=== PATIENT | female | born 1975 | race Caucasian/White ===

== ENCOUNTER 2019-02-27 14:43 | Inpatient (IN) ==
[2019-02-27] MEDS ORDERED: THIAMINE HCL 200 MG in SODIUM CHLORIDE 0.9% 50 ML IV STA (14:57)
[2019-02-27] MEDS ORDERED: DIAZEPAM 5 MG/ML INJ 10ML VIAL IV STA (14:57)
[2019-02-27] MEDS ORDERED: FOLIC ACID 1 MG in SYRINGE 9.8 ML IV STA (14:57)
[2019-02-27] MEDS ORDERED: ATIVAN IV ALCOHOL WITHDRAWL IV SCH ×3 (15:00→17:50)
[2019-02-27] MEDS ORDERED: SODIUM CHLORIDE 0.9% 1000ML 1,000 ML IV SCH (15:00)
[2019-02-27] MEDS ORDERED: LORazepam 1 MG/2 ML VIAL IV PRN ×2 (15:01→17:50)
[2019-02-27] MEDS ORDERED: LORazepam 2 MG/4 ML VIAL IV PRN ×2 (15:01→17:50)
[2019-02-27] MEDS ORDERED: LORazepam 3 MG/6 ML VIAL IV PRN ×2 (15:01→17:50)
[2019-02-27] MEDS ORDERED: LORAZEPAM 2MG IV ACTIVE PROTOCOL IV PRN (15:15)
[2019-02-27] MEDS ORDERED: LORAZEPAM 1MG IV ACTIVE PROTOCOL IV PRN (15:15)
[2019-02-27] MEDS ORDERED: LORAZEPAM 3MG IV ACTIVE PROTOCOL IV PRN (15:15)
[2019-02-27 15:32] LABS: Basophils # (auto) 0.04 K/uL (0-0.2); Basophils % (auto) 0.7 %; Eosinophils # (auto) 0.04 K/uL (0-0.5); Eosinophils % (auto) 0.7 %; Hemoglobin 14.2 g/dL (12.0-16.0); Immature Granulocytes # (auto) 0.01 K/uL (0.00-0.02); Immature Granulocytes % (auto) 0.2 %; Lymphocytes # (auto) 0.71 K/uL (1.2-3.4); Lymphocytes % (auto) 11.7 %; Mean Corpuscular Hgb Conc 35.5 g/dL (32-36); Mean Corpuscular Volume 98.3 fL (80-100); Mean Platelet Volume 8.9 fL (7.4-10.4); Monocytes # (auto) 0.36 K/uL (0.11-0.59); Monocytes % (auto) 5.9 %; Neutrophils # (auto) 4.91 K/uL (1.4-6.5); Neutrophils % (auto) 80.8 %; Platelet Count 202 K/uL (130-400); RDW Standard Deviation 46.9 fL (36.4-46.3); Red Blood Count 4.07 M/uL (4.2-5.4); White Blood Count 6.07 K/uL (4.8-10.8)
[2019-02-27] MEDS: D5W AND 1/2NSS 1,000 ML IV SCH (15:36)
[2019-02-27 15:59] LABS: Albumin Level 4.2 gm/dl (3.4-5.0); BUN Creatinine Ratio 17.5 (10-20); Calcium 9.9 mg/dl (8.5-10.1); Creatinine Clr Calc Pharmacy 96.3 ml/min; Est GFR (African American) 111.4; Est GFR (Non-African American) 96.1
[2019-02-27 16:10] LABS: Albumin Globulin Ratio 1.1 (0.9-2); Bilirubin,Total 0.7 mg/dl (0.2-1); Globulin 3.7 gm/dl (2.5-4.0); Phosphorus 2.4 mg/dl (2.5-4.9); Total Protein 7.9 gm/dl (6.4-8.2)
[2019-02-27] MEDS ORDERED: POT PHOSPHATE MONOBASIC W/ SOD TAB PO STA (16:18)
--- NOTE | 2019-02-27 16:26 | Emergency Department Note ---
Entered by Mil Ortiz acting as a scribe for Doron Pedersen MD History of Present Illness General Chief complaint: Alcohol Withdrawal Stated complaint: SICKNESS, WITHDRAWL SX Time Seen by Provider: 02/27/19 14:48 Source: patient History of Present Illness Onset (ago): week(s) 1 Location: left and right Pain Consistency: + other (episode) Maximum Pain Intensity: 2 Quality: + other (generally ill) Associated symptoms: + loss of appetite, + nausea/vomiting (dry heaving) and + other (+fatigued; +generally sore; +slight diarrhea; +feeling "shaky"; - seizures) The patient is a 43 year old white female w/ PMHx of alcohol abuse, asthma, and anxiety who presents to the ED w/ CC of an episode of feeling generally ill beginning over the past week. The patient also reports feeling fatigued and generally sore over the past week. The patient was referred to the ED from [facility]. The patient notes she has issues with drinking excessive alcohol. The patient reports she typically drinks a large bottle of wine each night for the past two and a half years. The patient admits her last drink was at 2300 last night. The patient states the excessive alcohol use started after experiencing her first panic attack 2 and half years ago. The patient also notes dry heaving this morning, slight diarrhea, loss of appetite, and feeling "shaky". The patient denies experiencing seizures. The patient notes her last menstrual period was in August. Home Medications Home Medications Medication Instructions Recorded Confirmed Type albuterol sulfate [ProAir HFA] 2 puff INHALATION Q6H PRN 02/27/19 02/27/19 History fluticasone propion-salmeterol 1 inh INHALATION QAM 02/27/19 02/27/19 History [Advair Diskus] lorazepam 0.5 mg PO DAILY PRN 02/27/19 02/27/19 History paroxetine HCl 20 mg PO DAILY 02/27/19 02/27/19 History Allergies Allergy/AdvReac Type Severity Reaction Status Date / Time No Known Allergies Allergy Unknown Verified 05/07/03 14:16 theophylline AdvReac Unknown VERTIGO Unverified 02/27/19 16:19 Past Med/Surg History Medical History Anxiety Asthma Family History Other No significant family history Social History Feels Safe at Home: Yes Smoking Status: Never smoker Review of Systems See HPI for pertinent positives & negatives. and A total of 10 systems reviewed and were otherwise negative Physical Exam Vital Signs Vital Signs - 24 hr 02/27/19 14:45 02/27/19 15:01 02/27/19 16:16 Temperature 36.7 C Temperature Source Oral Sepsis Recent Fever Within 48 Hours No Sepsis New/Unexplained Change in Mental Status No Sepsis Action Taken by Nursing No Action Required Pulse Rate 106 H 105 H Pulse Rate [Left] 96 H Respiratory Rate 20 18 Respiratory Effort / Characteristics Non-Labored Spontaneous Respiratory Depth Normal Blood Pressure 162/88 H Blood Pressure [Right Arm] 128/87 Blood Pressure Mean 112 Blood Pressure Mean [Right Arm] 100 Blood Pressure Position [Right Arm] Lying Pulse Oximetry 97 97 97 Oxygen Delivery Method Room Air Room Air Room Air GENERAL: Tremulous, anxious-appearing, in mild distress. EYE EXAM: Normal conjunctiva. PERRL, no anisocoria and EOM's grossly intact w/o pain. OROPHARYNX: Moist mucous membranes. Grossly normal dentition. Tongue fasciculations present. NECK: Supple, no nuchal rigidity, no adenopathy, non-tender. No signs of meningismus. LUNGS: Clear to auscultation. Normal chest wall mechanics. HEART: Tachycardic, no MRG. ABDOMEN: Abdomen soft, non-tender, normo-active bowel sounds, no masses, no rebound or guarding. BACK: No CVA TTP. SKIN: No rashes and no bruising. UPPER EXTREMITIES: Bilateral upper extremity tremors. LOWER EXTREMITIES: No pitting edema. No calf pain. NEURO EXAM: A&O x3, cranial nerves II-XII grossly intact, normal speech, moves all 4 extremities on command w/o issue. Course 1449: Past medical records reviewed. The patient was evaluated in room A10. A complete history and physical exam was performed. 1610: I reevaluated the patient. The patient is feeling a little better. 1616: I reviewed the patient's case with Jessica Hansen-JEREMY Armstrong. Dr. Novoa-Hospitalist Nathaniel will evaluate the patient for further management. Consultations Consultation #1: I reviewed the patient's case with Jessica Hansen-JEREMY Armstrong. Dr. Novoa-Hospitalist Nathaniel will evaluate the patient for further management. Time: 16:16 Administered Medications Dextrose/Sodium Chloride (D5w And 1/2nss) 1,000 mls @ 125 mls/hr IV .Q8H ARMANI Stop: 03/29/19 14:59 Last Admin: 02/27/19 15:36 Dose: 125 mls/hr Documented by: [id number] Lorazepam (Ativan) 1 mg in 2 mls @ 2 mls/min IV UD PRN; Protocol PRN Reason: EtOH Withdrawl AWSS Score 6,7 Stop: 03/29/19 15:00 Last Admin: 02/27/19 16:13 Dose: 2 mls/min Documented by: [id number] Discontinued Medications Diazepam (Valium) 10 mg IV NOW STA Stop: 02/27/19 14:58 Last Admin: 02/27/19 15:27 Dose: 10 mg Documented by: [id number] Folic Acid 1 mg/ Syringe 10 mls @ 5 mls/min IV NOW STA Stop: 02/27/19 14:58 Last Admin: 02/27/19 15:27 Dose: 5 mls/min Documented by: [id number] Sodium Chloride (Nss 1000ml) 1,000 mls @ 999 mls/hr IV .Q1H1M ARMANI Stop: 02/27/19 16:00 Last Admin: 02/27/19 15:40 Dose: 999 mls/hr Documented by: [id number] Thiamine HCl 200 mg/ Sodium (Chloride) 52 mls @ 208 mls/hr IV NOW STA Stop: 02/27/19 15:11 Last Infusion: 02/27/19 15:44 Dose: 0 mls/hr Documented by: [id number] Admin: 02/27/19 15:27 Dose: 208 mls/hr Documented by: [id number] Medical Decision Making Medical Records Attestation: I reviewed the patient's medical records. Home Medications Current Medication List: was personally reviewed by me Laboratory Data Attestation: I reviewed the patient's lab results. Result diagrams: 02/27/19 15:06 02/27/19 15:06 Lab Results 02/27/19 02/27/19 02/27/19 Range/Units 15:06 15:06 15:06 WBC 6.07 (4.8-10.8) K/uL RBC 4.07 L (4.2-5.4) M/uL Hgb 14.2 (12.0-16.0) g/dL Hct 40.0 (37-47) % MCV 98.3 (80-100) fL MCH 34.9 H (25-34) pg MCHC 35.5 (32-36) g/dL RDW Std Deviation 46.9 H (36.4-46.3) fL RDW Coeff of Suzanne 13.0 (11.5-14.5) % Plt Count 202 (130-400) K/uL MPV 8.9 (7.4-10.4) fL Immature Gran % (Auto) 0.2 % Neut % (Auto) 80.8 % Lymph % (Auto) 11.7 % [place] % (Auto) 5.9 % Eos % (Auto) 0.7 % Baso % (Auto) 0.7 % Immature Gran # (Auto) 0.01 (0.00-0.02) K/uL Neut # (Auto) 4.91 (1.4-6.5) K/uL Lymph # (Auto) 0.71 L (1.2-3.4) K/uL [place] # (Auto) 0.36 (0.11-0.59) K/uL Eos # (Auto) 0.04 (0-0.5) K/uL Baso # (Auto) 0.04 (0-0.2) K/uL Sodium 137 (136-145) mmol/L Potassium 4.0 (3.5-5.1) mmol/L Chloride 104 (98-107) mmol/L Carbon Dioxide 22 (21-32) mmol/L Anion Gap 11.0 (3-11) BUN 13 (7-18) mg/dl Creatinine 0.76 (0.6-1.2) mg/dl Est Cr Clr Drug Dosing 96.3 ml/min Est GFR ( Amer) 111.4 Est GFR (Non-Af Amer) 96.1 BUN/Creatinine Ratio 17.5 (10-20) Glucose 94 (70-99) mg/dl Calcium 9.9 (8.5-10.1) mg/dl Phosphorus 2.4 L (2.5-4.9) mg/dl Magnesium 2.0 (1.8-2.4) mg/dl Total Bilirubin 0.7 (0.2-1) mg/dl AST 152 H (15-37) U/L ALT 124 H (12-78) U/L Alkaline Phosphatase 108 (45-117) U/L Total Protein 7.9 (6.4-8.2) gm/dl Albumin 4.2 (3.4-5.0) gm/dl Globulin 3.7 (2.5-4.0) gm/dl Albumin/Globulin Ratio 1.1 (0.9-2) Lipase 142 (73-393) U/L Folate (>5.38) ng/ml TSH 2.350 (0.300-4.500) uIu/ml Ethyl Alcohol mg/dL < 3.0 (0-3) mg/dl 02/27/19 Range/Units 15:07 WBC (4.8-10.8) K/uL RBC (4.2-5.4) M/uL Hgb (12.0-16.0) g/dL Hct (37-47) % MCV (80-100) fL MCH (25-34) pg MCHC (32-36) g/dL RDW Std Deviation (36.4-46.3) fL RDW Coeff of Suzanne (11.5-14.5) % Plt Count (130-400) K/uL MPV (7.4-10.4) fL Immature Gran % (Auto) % Neut % (Auto) % Lymph % (Auto) % [place] % (Auto) % Eos % (Auto) % Baso % (Auto) % Immature Gran # (Auto) (0.00-0.02) K/uL Neut # (Auto) (1.4-6.5) K/uL Lymph # (Auto) (1.2-3.4) K/uL Ponce # (Auto) (0.11-0.59) K/uL Eos # (Auto) (0-0.5) K/uL Baso # (Auto) (0-0.2) K/uL Sodium (136-145) mmol/L Potassium (3.5-5.1) mmol/L Chloride (98-107) mmol/L Carbon Dioxide (21-32) mmol/L Anion Gap (3-11) BUN (7-18) mg/dl Creatinine (0.6-1.2) mg/dl Est Cr Clr Drug Dosing ml/min Est GFR ( Amer) Est GFR (Non-Af Amer) BUN/Creatinine Ratio (10-20) Glucose (70-99) mg/dl Calcium (8.5-10.1) mg/dl Phosphorus (2.5-4.9) mg/dl Magnesium (1.8-2.4) mg/dl Total Bilirubin (0.2-1) mg/dl AST (15-37) U/L ALT (12-78) U/L Alkaline Phosphatase (45-117) U/L Total Protein (6.4-8.2) gm/dl Albumin (3.4-5.0) gm/dl Globulin (2.5-4.0) gm/dl Albumin/Globulin Ratio (0.9-2) Lipase (73-393) U/L Folate 15.73 (>5.38) ng/ml TSH (0.300-4.500) uIu/ml Ethyl Alcohol mg/dL (0-3) mg/dl ECG Data Attestation: I personally reviewed and interpreted this ECG as follows: Indication: nausea and vomiting Rate (beats per minute): 93 Rhythm: normal sinus Findings: + other (normal interavls, normal axis, no STS changes, T-wave flattening in lead 3 ) Blood Pressure Blood Pressure Findings: Elevated blood pressure Blood Pressure Disposition: further management by hospitalist [facility] Narrative The patient is a 43 year old white female w/ PMHx of alcohol abuse, asthma, and anxiety who presents to the ED w/ CC of an episode of feeling generally ill beginning over the past week. Differential diagnoses include electrolyte abnormalities, alcohol withdrawal, alcohol intoxication, anxiety, dehydration, pancreatitis, amongst others. Patient was seen and evaluated the bedside. The patient did present after being a referral for outpatient clinic due to concern for recent alcohol withdrawal. The patient is seeking help and would like to quit using alcohol. The patient had a last drink at 11 PM. The patient has been drinking approximately a full bottle of wine and intermittently drinking additional vodka daily for the last 2 and half years. The patient is tremulous on exam. The patient is tachycardic. The patient was given IV Valium and started on an Ativan protocol. The patient's blood work does show concern for alcoholic hepatitis and hypophosphatemia. Current alcohol is negative. The patient does look and feel improved after being given the Valium. I did speak the on-call hospitalist who agreed to further evaluate treat the patient. The patient was admitted to the medicine service. Impression & Plan Alcohol withdrawal, Alcohol abuse, Nausea and vomiting, Acute dehydration, Acute alcoholic hepatitis, Hypophosphatemia Critical Care Time Critical Care Time: Yes Total Critical Care Time: 37 I have personally spent greater than 37 minutes of critical care time in direct management of this patient. This includes bedside care, interpretation of diagnostic studies, and testing, discussion with consultants, patient, and family members, and other require inpatient management activities. This 37 liliana mahesh is in excess of all separately billable procedures. Discharge Plan Visit Data Chief Complaint: Alcohol Withdrawal Stated Complaint: SICKNESS, WITHDRAWL SX ED Provider: Doron Pedersen Discharge Problem: Alcohol withdrawal, Alcohol abuse, Nausea and vomiting, Acute dehydration, Acute alcoholic hepatitis, Hypophosphatemia Forms Stand Alone Forms: My [facility] Prescriptions Prescriptions: No Action fluticasone propion-salmeterol [Advair Diskus] 250-50 mcg/dose blister with device 1 inh inhalation QAM RF: 0 albuterol sulfate [ProAir HFA] 90 mcg/actuation HFA aerosol inhaler 2 puff inhalation Q6H PRN (Reason: Shortness Of Breath) RF: 0 paroxetine HCl 20 mg tablet 20 mg PO DAILY RF: 0 lorazepam 0.5 mg tablet 0.5 mg PO DAILY PRN (Reason: Anxiety) RF: 0 Discharge Problem: Alcohol withdrawal Qualifiers: Complication of substance-induced condition: with unspecified complication Javan lified Code(s): F10.239 - Alcohol dependence with withdrawal, unspecified Nausea and vomiting Qualifiers: Vomiting type: unspecified Vomiting Intractability: unspecified Qualified Code(s): R11.2 - Nausea with vomiting, unspecified The scribe's documentation has been prepared under my direction and personally reviewed by me in its entirety. I confirm that the note above accurately reflects all work, treatment, procedures, and medical decision making performed by me.
--- NOTE | 2019-02-27 17:27 | History & Physical Report ---
Date of Service February 27, 2019 Assessment & Plan (1) Alcohol withdrawal: 43 year old woman with history of alcohol abuse, anxiety and asthma who presented with symptoms of alcohol withdrawal after cutting down on alcohol intake. -Last drink was yesterday night -Blood alcohol level <3 -Got thiamine, folate in ED. Currently on iv D5 and 1/2 saline. Continue IV fluids. Will continue daily thiamine and folic acid po -Monitor electrolytes and replete appropriately -CIWA is 12 at time of evaluation. Already got diazepam 10mg in ED. Will start lorazepam and gabapentin per alcohol withdrawal protocol -AST and ALT elevated. However bilirubin, albumin are normal. Monitor Liver function tests -Counselled patient on need to quit. Patient seems motivated to try to quit -Consult Case management to provide resources for continue alcohol abuse management after discharge Present on Admission?: Yes (2) Hypophosphatemia: Phosphate ls 2.4mg/dl Likely due to alcohol abuse -Got potassium phosphate in ED -Repeat blood chemistry ordered for later tonight for monitoring and appropriate repletion Present on Admission?: Yes (3) Anxiety: Reports history of anxiety and panic attacks. -Continue home medication paroxetine. PDMP reviewed: Filled 30 tabs of lorazepam 0.5mg on 01/24/2019 -Follow up with psychiatrist outpatient (4) Asthma: Well controlled -Continue home inhalers Present on Admission?: Yes (5) Discharge planning issues: hardware manager consult to provide resources for continued outpatient alcohol abuse management as patient is a single parent and states she wants to quit drinking Disposition: Medicine with telemetry History of Present Illness Chief Complaint: Tremulousness, Nausea, Vomiting Primary Care Provider: Camila Joyner PA-C 43 year old woman with history of intermittent asthma (well controlled), anxiety, alcohol abuse who presents with nausea, vomiting and tremulousness that started this morning and malaise and body ache for 5 days. Patient reports she usually drinks about 1 to 1.5 bottle of wine daily and o ccasionally half pint of vodka. Stated she started drinking more about 2.5years ago, trying to use alcohol to manage her anxiety and panic attacks. Last week, she started to cut down. Last drink of vodka was about a week ago. 5 days ago she started having generalized body aches and malaise. Yesterday night, anorexia developed and this morning she started having nausea, multiple bouts of nonbloody vomiting, one episode of loose stool (non bloody), tremulousness/shaking, mild headache, intermittent profuse sweating. Last drink of wine was yesterday. Denied any seizures, loss of consciousness, fall, hallucinations (visual, auditory or tactile). Denied abdominal pain She went to an urgent care and was directed to the ED. Smoked about 1 pack per day for about 2 years but quit 4 years ago Denied illicit drug use Reports asthma is well controlled. States she follows a psychiatrist for anxiety and was well controlled with paroxetin and ativan prn prior to withdrawal symptoms Patient is single parent of 15year old daughter Allergies Allergy/AdvReac Type Severity Reaction Status Date / Time No Known Allergies Allergy Unknown Verified 05/07/03 14:16 theophylline AdvReac Unknown VERTIGO Verified 02/27/19 17:05 Home Medications Home Medications Medication Instructions Recorded Confirmed Type albuterol sulfate [ProAir HFA] 2 puff INHALATION Q6H PRN 02/27/19 02/27/19 History fluticasone propion-salmeterol 1 inh INHALATION QAM 02/27/19 02/27/19 History [Advair Diskus] lorazepam 0.5 mg PO DAILY PRN 02/27/19 02/27/19 History paroxetine HCl 20 mg PO DAILY 02/27/19 02/27/19 History Past Med/Surg History Medical History Alcohol abuse (Acute) Anxiety (Chronic) Asthma (Chronic) Family History Father Prediabetes Grandfather (Paternal) Diabetes Other No significant family history Social History Preferred Language: Sammarinese Communication Ability: Effective marital status details: Single parent Current Living Situation Comment: With daughter, 15 years old Feels Safe at Home: Yes Smoking Status: Former smoker Age Quit Using Tobacco: 39 ; packs per day: 1 ; Years Smoked: 2 ; Number of Years Since Quit: 4 ; Hx Alcohol Use: Yes Alcohol type: wine and hard liquor Alcohol type Comment: Takes 1.5 bottle of wine daily and occasional 0.5 pint of vodka Alcohol Intake Frequency: Daily Hx Substance Use: No Childhood Exposure to Second-Hand Smoke: No Review of Systems Review of Systems: Constitutional: No fever; no chills, +fatigue, +malaise and + anorexia, +tremulous Eyes: No diplopia, no eye pain or blurred vision Ear, Nose, Mouth, Throat: No ear discharge or pain, no hearing loss, no nasal congestion, no nasal discharge, no epistaxis, no sore throat and no hoarseness Respiratory: No cough, no dyspnea, no dyspnea on exertion and no hemoptysis Cardiovascular: No chest pain, no chest pain with activity, no palpitations, no lightheadedness, no syncope, no edema and no calf pain Gastrointestinal: No abdominal pain, +nausea, +vomiting, no heartburn, no coffee ground emesis, no constipation, + diarrhea/loose stools, no blood in stools and no melena Genitourinary: No dysuria, no urinary frequency, no urgency, no urinary incontinence, no urethral discharge, Musculoskeletal: No back pain, no joint pain and no muscle weakness Integumentary: No rash, no lesions Neurologic: +mild headache, no paralysis, no numbness and no syncope Psychiatric: No depression, no suicidal ideation, +anxiety Endocrine: No polydipsia, no polyphagia, no cold intolerance, no heat intolerance Hematologic / Lymphatic: No easy bruising, No limb swelling, No bleeding Physical Exam Physical Exam: General: Well nourished, average body habitus, no acute distress and not ill appearing, Has gross tremors with arms outstretched Eyes: PERRL, conjunctivae normal, not pale, anicteric sclerae, EOM intact bilaterally ENMT: External ear and nose normal, oropharynx normal Neck: Normal visual inspection, no swelling noted Respiratory: Normal respiratory effort, no respiratory distress, lungs clear to auscultation, no crackles and no wheezes Cardiovascular: Pulse is RRR. Heart Sounds: normal S1 and normal S2; no murmurs. Vessels: normal peripheral pulses Extremities: no pedal edema Chest (Breasts): Chest: normal inspection of chest Gastrointestinal (Abdomen): Abdomen is not distended, soft, non-tender to palpation, no guarding, no palpable hepatosplenomegaly, normal bowel sounds Musculoskeletal: No cyanosis or clubbing, all extremities motor strength 5/5 Skin: No rash noted on gross inspection, No ulcers noted Neurologic: Alert and oriented x 3, No focal weakness, sensation grossly intact Psychiatric: Alert and oriented x 3, mildly anxious Lymphatic: No cervical lymphadenopathy Results & Data Vital Signs (Past 12 Hours) Vital Signs Temp Pulse Pulse Resp BP BP Pulse Ox 02/27/19 16:16 96 H 18 128/87 97 02/27/19 15:01 105 H 97 02/27/19 14:45 36.7 C 106 H 20 162/88 H 97 Laboratory Results 02/27/19 15:06 02/27/19 15:06 Laboratory Results - last 24 hr 02/27/19 02/27/19 02/27/19 15:06 15:06 15:06 WBC 6.07 RBC 4.07 L Hgb 14.2 Hct 40.0 MCV 98.3 MCH 34.9 H MCHC 35.5 RDW Std Deviation 46.9 H RDW Coeff of Suzanne 13.0 Plt Count 202 MPV 8.9 Immature Gran % (Auto) 0.2 Neut % (Auto) 80.8 Lymph % (Auto) 11.7 [place] % (Auto) 5.9 Eos % (Auto) 0.7 Baso % (Auto) 0.7 Immature Gran # (Auto) 0.01 Neut # (Auto) 4.91 Lymph # (Auto) 0.71 L [place] # (Auto) 0.36 Eos # (Auto) 0.04 Baso # (Auto) 0.04 Sodium 137 Potassium 4.0 Chloride 104 Carbon Dioxide 22 Anion Gap 11.0 BUN 13 Creatinine 0.76 Est Cr Clr Drug Dosing 96.3 Est GFR ( Amer) 111.4 Est GFR (Non-Af Amer) 96.1 BUN/Creatinine Ratio 17.5 Glucose 94 Calcium 9.9 Phosphorus 2.4 L Magnesium 2.0 Total Bilirubin 0.7 AST 152 H ALT 124 H Alkaline Phosphatase 108 Total Protein 7.9 Albumin 4.2 Globulin 3.7 Albumin/Globulin Ratio 1.1 Lipase 142 Folate TSH 2.350 Ethyl Alcohol mg/dL < 3.0 02/27/19 15:07 WBC RBC Hgb Hct MCV MCH MCHC RDW Std Deviation RDW Coeff of Suzanne Plt Count MPV Immature Gran % (Auto) Neut % (Auto) Lymph % (Auto) [place] % (Auto) Eos % (Auto) Baso % (Auto) Immature Gran # (Auto) Neut # (Auto) Lymph # (Auto) [place] # (Auto) Eos # (Auto) Baso # (Auto) Sodium Potassium Chloride Carbon Dioxide Anion Gap BUN Creatinine Est Cr Clr Drug Dosing Est GFR ( Amer) Est GFR (Non-Af Amer) BUN/Creatinine Ratio Glucose Calcium Phosphorus Magnesium Total Bilirubin AST ALT Alkaline Phosphatase Total Protein Albumin Globulin Albumin/Globulin Ratio Lipase Folate 15.73 TSH Ethyl Alcohol mg/dL ECG Additional Comments: EKG on 02/27/19 T 3pm shows normal sinus rhythm, rate of 93 bpm, ID 120 MS, QRS 18 MS, QTc 412 MS, no ST-T changes Code Status & VTE Plan VTE Prophylaxis Plan VTE Prophylaxis will be ordered: Yes (1) Alcohol withdrawal Complication of substance-induced condition: with unspecified complication Qualified Code(s): F10.239 - Alcohol dependence with withdrawal, unspecified (2) Asthma Asthma complication type: uncomplicated Asthma persistence: intermittent Asthma severity: mild Qualified Code(s): J45.20 - Mild intermittent asthma, uncomplicated
[2019-02-27] MEDS ORDERED: GABAPENTIN 1200MG ALCOHOL WITHDRAWAL LOAD PO STA (17:50)
[2019-02-27] MEDS ORDERED: ONDANSETRON INJ 2 MG/ML 2 ML VIAL IV PRN (17:50)
[2019-02-27] MEDS ORDERED: LORazepam 2 MG/4 ML VIAL ONE (18:21)
[2019-02-27] MEDS ORDERED: ALBUTEROL HFA 8 GM INHALER INH PRN (18:45)
[2019-02-27] MEDS ORDERED: GABAPENTIN 600 MG TAB PO SCH (19:00)
[2019-02-27] MEDS: PARoxetine HCl 20 MG TAB PO SCH (20:48)
[2019-02-27 21:29] LABS: BUN Creatinine Ratio 14.8 (10-20); Calcium 9.2 mg/dl (8.5-10.1); Est GFR (African American) 80.9; Est GFR (Non-African American) 69.8; Potassium 3.6 mmol/L (3.5-5.1)
[2019-02-28] MEDS: D5W AND 1/2NSS 1,000 ML IV SCH ×2 (00:02→07:10)
[2019-02-28] MEDS: GABAPENTIN 600 MG TAB PO SCH ×4 (00:04→22:57)
[2019-02-28 05:52] LABS: Hematocrit (blood only) 37.8 % (37-47); Hemoglobin 12.8 g/dL (12.0-16.0); Mean Corpuscular Hgb Conc 33.9 g/dL (32-36); Mean Corpuscular Volume 101.1 fL (80-100); Mean Platelet Volume 9.3 fL (7.4-10.4); Platelet Count 160 K/uL (130-400); RDW Coefficient of Variation 13.2 % (11.5-14.5); RDW Standard Deviation 48.5 fL (36.4-46.3); Red Blood Count 3.74 M/uL (4.2-5.4); White Blood Count 3.27 K/uL (4.8-10.8)
[2019-02-28 06:29] LABS: Albumin Level 3.5 gm/dl (3.4-5.0); BUN Creatinine Ratio 14.6 (10-20); Calcium 9.2 mg/dl (8.5-10.1); Creatinine Clr Calc Pharmacy 84.2 ml/min; Est GFR (African American) 94.6; Est GFR (Non-African American) 81.6; Potassium 3.7 mmol/L (3.5-5.1)
[2019-02-28 06:31] LABS: Bilirubin,Total 0.6 mg/dl (0.2-1); Globulin 3.4 gm/dl (2.5-4.0); Total Protein 6.9 gm/dl (6.4-8.2)
--- NOTE | 2019-02-28 07:46 | Hospitalist Progress Note ---
Date of Service February 28, 2019 Assessment & Plan (1) Alcohol withdrawal: -43 year old woman with history of alcohol abuse, anxiety and asthma who presented with symptoms of alcohol withdrawal after cutting down on alcohol intake on 02/27/19, Last drink was night of 02/26/19, admission Blood alcohol level <3; Got thiamine, folate, diazepam in the ED, and IV fluids, CIWA is 12 at time of admitting hospitalist evaluation. Already got diazepam 10mg in ED. -02/28/19: Patient seen and examined this AM while eating the breakfast. Patient appears well in appearance. No tremors of upper extremities or tongue fasiculations. Speaking in full sentences and not in distress. Review of her vital signs of normal blood pressure and heart rate. As per discussion with nurse, patient scoring low on alcohol withdrawal scoring and has not needed any acute dosing of ativan or gabapentin at this time. Patient reports she was able to go to the commode. -as of this time, IV fluids can be held as patient appears to be able to take oral intake, continue thiamine and folic acid, will have PT/OT evaluate the patient to assess general ambulation, will continue to monitor patient on telemetry with lorazepam and gabapentin per alcohol withdrawal protocol but patient appears to be doing well at this time, o -Monitor electrolytes and replete appropriately -Consult Case management to provide resources for continue alcohol abuse management after discharge Transaminitis -downtrending -monitor (2) Hypophosphatemia: -admission serum phosphate 2.4mg/dl -patient had received phosphate supplement on this admission -continue to trend labs and replete as needed (3) Anxiety: Reports history of anxiety and panic attacks. -Continue home medication paroxetine. PDMP reviewed: Filled 30 tabs of lorazepam 0.5mg on 01/24/2019 -Follow up with psychiatrist outpatient (4) Asthma: -no acute asthma exacerbation at this time -Continue home inhalers of Advair and albuterol prn if needed (5) Discharge planning issues: -engine manager consult to provide resources for continued outpatient alcohol abuse management as patient is a single parent and states she wants to quit drinking Subjective Patient seen and examined this AM while eating the breakfast. Patient appears well in appearance. No tremors of upper extremities or tongue fasiculations. Speaking in full sentences and not in distress. Review of her vital signs of normal blood pressure and heart rate. As per discussion with nurse, patient scoring low on alcohol withdrawal scoring and has not needed any acute dosing of ativan or gabapentin at this time. Patient reports she was able to go to the commode. no dizziness. no headache. no shortness of breath. breathing on room air Physical Exam Constitutional: WD/WN, vitals as above comfortable Eyes: PERRL, conjunctivae normal, anicteric sclerae EOM intact bilaterally ENMT: external ear and nose normal, oropharynx normal Neck: normal visual inspection Respiratory: normal respiratory effort, lungs clear to auscultation Cardiovascular: RRR, no murmur, no edema Gastrointestinal (Abdomen): normal bowel sounds, soft, nontender, no hepatosplenomegaly Musculoskeletal: Head/Neck/Chest: normocephalic and head atraumatic Neurologic: PERRL, EOMI, accommodation nl, no face palsy, no dysarthria CN's II-XI intact bilaterally Psychiatric: A+Ox3, euthymic affect Results & Data Vital Signs (Past 12 Hours) Vital Signs Temp Pulse Resp BP Pulse Ox 02/28/19 03:40 36.9 C 96 H 18 121/88 98 02/27/19 23:33 36.4 C L 106 H 19 118/89 96 (1) Alcohol withdrawal Complication of substance-induced condition: with unspecified complication Qualified Code(s): F10.239 - Alcohol dependence with withdrawal, unspecified (2) Asthma Asthma complication type: uncomplicated Asthma persistence: intermittent Asthma severity: mild Qualified Code(s): J45.20 - Mild intermittent asthma, uncomplicated
[2019-02-28] MEDS: FLUTICASONE/SALMETEROL 250/50 (ADVAIR) 14 PUFF/1 INHALER INH SCH (07:54)
[2019-02-28] MEDS: PARoxetine HCl 20 MG TAB PO SCH (07:56)
[2019-02-28] MEDS: THIAMINE HCL 100 MG TAB PO SCH (07:56)
[2019-02-28] MEDS: FOLIC ACID 1 MG TAB PO SCH (07:56)
[2019-02-28] MEDS ORDERED: POT PHOSPHATE MONOBASIC W/ SOD TAB PO STA (08:33)
[2019-03-01] MEDS: GABAPENTIN 600 MG TAB PO SCH (06:01)
[2019-03-01 07:13] LABS: Albumin Level 3.4 gm/dl (3.4-5.0); BUN Creatinine Ratio 13.3 (10-20); Calcium 9.3 mg/dl (8.5-10.1); Est GFR (African American) 103.1; Potassium 3.8 mmol/L (3.5-5.1)
[2019-03-01 07:17] LABS: Bilirubin,Total 0.6 mg/dl (0.2-1); Globulin 3.3 gm/dl (2.5-4.0); Phosphorus 3.2 mg/dl (2.5-4.9); Total Protein 6.7 gm/dl (6.4-8.2)
[2019-03-01] MEDS: THIAMINE HCL 100 MG TAB PO SCH (07:49)
[2019-03-01] MEDS: PARoxetine HCl 20 MG TAB PO SCH (07:49)
[2019-03-01] MEDS: FLUTICASONE/SALMETEROL 250/50 (ADVAIR) 14 PUFF/1 INHALER INH SCH (07:49)
[2019-03-01] MEDS: FOLIC ACID 1 MG TAB PO SCH (07:49)
--- NOTE | 2019-03-01 12:12 | Hospitalist Progress Note ---
Date of Service March 01, 2019 Assessment & Plan (1) Alcohol withdrawal: -43 year old woman with history of alcohol abuse, anxiety and asthma who presented with symptoms of alcohol withdrawal after cutting down on alcohol intake on 02/27/19, Last drink was night of 02/26/19, admission Blood alcohol level <3; Got thiamine, folate, diazepam in the ED, and IV fluids, CIWA is 12 at time of admitting hospitalist evaluation. got diazepam 10mg in ED. -02/28/19: Patient seen and examined this AM while eating the breakfast. Patient appears well in appearance. No tremors of upper extremities or tongue fasiculations. Speaking in full sentences and not in distress. Review of her vital signs of normal blood pressure and heart rate. As per discussion with nurse, patient scoring low on alcohol withdrawal scoring and has not needed any acute dosing of ativan or gabapentin at this time. Patient reports she was able to go to the commode. as of this time, IV fluids can be held as patient appears to be able to take oral intake, continued thiamine and folic acid, PT/OT evaluations, monitored patient on telemetry with lorazepam and gabapentin per alcohol withdrawal protocol but patient appears to be doing well at this time -03/01/19: patient doing well and ready to be discharge to home Transaminitis -downtrended and plateau of AST and ALT of around 100 -Patient is advised to follow up with primary care doctor and for primary care doctor to follow liver functions enzymes. Patient would like to make her own appointment (2) Hypophosphatemia: -Hypophosphatemia (corrected during hospital stay) ; admission serum phosphate 2.4mg/dl; patient had received phosphate supplement on this admission; serum phosphorous 3.2 on discharge day (3) Anxiety: Reports history of anxiety and panic attacks. -Continue home medication paroxetine. PDMP reviewed: Filled 30 tabs of lorazepam 0.5mg on 01/24/2019 -Follow up with psychologist outpatient (4) Asthma: -Continue home inhalers of Advair and albuterol prn as needed -no acute asthma exacerbation during hospital stay (5) Discharge planning issues: -power manager consult to provided resources for continued outpatient alcohol abuse management Patient is advised to continue to avoid alcohol. Patient is advised to follow up with primary care doctor and for primary care doctor to follow liver functions enzymes. Patient would like to make her own appointment Patient has previous outpatient appointment to : 03/09/2019 3:00 PM Provider Alia Reynoso, PhD Department Psychology, [facility] Discharge Diagnosis: Alcohol withdrawal; Transaminitis; Hypophosphatemia (corrected during hospital stay) Subjective patient doing well and ready to be discharge to home. ambulating well. no tremors. no tongue fasiculations. no headache. no dizziness. no chest pain. no abdominal pain. no vomiting. no shortness of breath. breathing on room air. discharge instructions discussed with patient and family at length Physical Exam Constitutional: WD/WN, vitals as above comfortable Eyes: PERRL, conjunctivae normal, anicteric sclerae EOM intact bilaterally ENMT: external ear and nose normal, oropharynx normal Neck: normal visual inspection Respiratory: normal respiratory effort, lungs clear to auscultation Cardiovascular: RRR, no murmur, no edema Gastrointestinal (Abdomen): normal bowel sounds, soft, nontender, no hepatosplenomegaly Musculoskeletal: Head/Neck/Chest: normocephalic and head atraumatic Neurologic: PERRL, EOMI, accommodation nl, no face palsy, no dysarthria CN's II-XI intact bilaterally Psychiatric: A+Ox3, euthymic affect Results & Data Vital Signs (Past 12 Hours) Vital Signs Temp Pulse Resp BP Pulse Ox 03/01/19 10:53 37.2 C 81 20 118/71 98 03/01/19 07:08 37.0 C 79 18 140/72 97 03/01/19 03:38 36.6 C 79 18 129/75 95 (1) Alcohol withdrawal Complication of substance-induced condition: with unspecified complication Qualified Code(s): F10.239 - Alcohol dependence with withdrawal, unspecified (2) Asthma Asthma complication type: uncomplicated Asthma persistence: intermittent Asthma severity: mild Qualified Code(s): J45.20 - Mild intermittent asthma, uncomplicated
--- NOTE | 2019-03-01 12:19 | Discharge Summary ---
Date of Service March 01, 2019 Admission HPI Per Admitting Provider 43 year old woman with history of intermittent asthma (well controlled), anxiety, alcohol abuse who presents with nausea, vomiting and tremulousness that started this morning and malaise and body ache for 5 days. Patient reports she usually drinks about 1 to 1.5 bottle of wine daily and occasionally half pint of vodka. Stated she started drinking more about 2.5years ago, trying to use alcohol to manage her anxiety and panic attacks. Last week, she started to cut down. Last drink of vodka was about a week ago. 5 days ago she started having generalized body aches and malaise. Yesterday night, anorexia developed and this morning she started having nausea, multiple bouts of nonbloody vomiting, one episode of loose stool (non bloody), tremulousness/shaking, mild headache, intermittent profuse sweating. Last drink of wine was yesterday. Denied any seizures, loss of consciousness, fall, hallucinations (visual, auditory or tactile). Denied abdominal pain She went to an urgent care and was directed to the ED. Smoked about 1 pack per day for about 2 years but quit 4 years ago Denied illicit drug use Reports asthma is well controlled. States she follows a psychiatrist for anxiety and was well controlled with paroxetin and ativan prn prior to withdrawal symptoms Patient is single parent of 15year old daughter Admission Exam Per Admitting Provider General: Well nourished, average body habitus, no acute distress and not ill appearing, Has gross tremors with arms outstretched Eyes: PERRL, conjunctivae normal, not pale, anicteric sclerae, EOM intact bilaterally ENMT: External ear and nose normal, oropharynx normal Neck: Normal visual inspection, no swelling noted Respiratory: Normal respiratory effort, no respiratory distress, lungs clear to auscultation, no crackles and no wheezes Cardiovascular: Pulse is RRR. Heart Sounds: normal S1 and normal S2; no murmurs. Vessels: normal peripheral pulses Extremities: no pedal edema Chest (Breasts): Chest: normal inspection of chest Gastrointestinal (Abdomen): Abdomen is not distended, soft, non-tender to palpation, no guarding, no palpable hepatosplenomegaly, normal bowel sounds Musculoskeletal: No cyanosis or clubbing, all extremities motor strength 5/5 Skin: No rash noted on gross inspection, No ulcers noted Neurologic: Alert and oriented x 3, No focal weakness, sensation grossly intact Psychiatric: Alert and oriented x 3, mildly anxious Lymphatic: No cervical lymphadenopathy Principal Diagnosis Alcohol withdrawal; Transaminitis; Hypophosphatemia (corrected during hospital stay) Discharge Exam Constitutional WD/WN, vitals as above comfortable Eyes PERRL, conjunctivae normal, anicteric sclerae EOM intact bilaterally ENMT external ear and nose normal, oropharynx normal Neck normal visual inspection Respiratory normal respiratory effort, lungs clear to auscultation Cardiovascular RRR, no murmur, no edema Gastrointestinal (Abdomen) normal bowel sounds, soft, nontender, no hepatosplenomegaly Musculoskeletal Head/Neck/Chest: normocephalic and head atraumatic Neurologic PERRL, EOMI, accommodation nl, no face palsy, no dysarthria CN's II-XI intact bilaterally Psychiatric A+Ox3, euthymic affect Discharge Data Allergies Allergy/AdvReac Type Severity Reaction Status Date / Time No Known Allergies Allergy Unknown Verified 05/07/03 14:16 theophylline AdvReac Unknown VERTIGO Verified 02/27/19 17:05 Consultations 02/27/19 16:18 ED Decision to Admit Stat 02/27/19 17:50 Consult Case Management - Discharge Planning Routine Hospital Course (1) Alcohol withdrawal: -43 year old woman with history of alcohol abuse, anxiety and asthma who presented with symptoms of alcohol withdrawal after cutting down on alcohol intake on 02/27/19, Last drink was night of 02/26/19, admission Blood alcohol level <3; Got thiamine, folate, diazepam in the ED, and IV fluids, CIWA is 12 at time of admitting hospitalist evaluation. got diazepam 10mg in ED. -02/28/19: Patient seen and examined this AM while eating the breakfast. Patient appears well in appearance. No tremors of upper extremities or tongue fasiculations. Speaking in full sentences and not in distress. Review of her vital signs of normal blood pressure and heart rate. As per discussion with nurse, patient scoring low on alcohol withdrawal scoring and has not needed any acute dosing of ativan or gabapentin at this time. Patient reports she was able to go to the commode. as of this time, IV fluids can be held as patient appears to be able to take oral intake, continued thiamine and folic acid, PT/OT evaluations, monitored patient on telemetry with lorazepam and gabapentin per alcohol withdrawal protocol but patient appears to be doing well at this time -03/01/19: patient doing well and ready to be discharge to home Transaminitis -downtrended and plateau of AST and ALT of around 100 -Patient is advised to follow up with primary care doctor and for primary care doctor to follow liver functions enzymes. Patient would like to make her own appointment (2) Hypophosphatemia: -Hypophosphatemia (corrected during hospital stay) ; admission serum phosphate 2.4mg/dl; patient had received phosphate supplement on this admission; serum phosphorous 3.2 on discharge day (3) Anxiety: Reports history of anxiety and panic attacks. -Continue home medication paroxetine. PDMP reviewed: Filled 30 tabs of lorazepam 0.5mg on 01/24/2019 -Follow up with psychologist outpatient (4) Asthma: -Continue home inhalers of Advair and albuterol prn as needed -no acute asthma exacerbation during hospital stay (5) Discharge planning issues: -business continuity manager consult to provided resources for continued outpatient alcohol abuse management Patient is advised to continue to avoid alcohol. Patient is advised to follow up with primary care doctor and for primary care doctor to follow liver functions enzymes. Patient would like to make her own appointment Patient has previous outpatient appointment to : 03/09/2019 3:00 PM Provider Alia Reynoso, PhD Department Psychology, [facility] Discharge Diagnosis: Alcohol withdrawal; Transaminitis; Hypophosphatemia (corrected during hospital stay) Total Time Total Time Spent Total Time Spent (In Minutes): 40 minutes Total Time Includes: Examination of the Patient, Discharge Planning, Medication Reconciliation and Communication With Other Providers Discharge Plan Discharge Items Patient Disposition: Home - Self-Care Reason For Visit: ALCOHOL WITHDRAWL Discharge Diagnosis: Alcohol withdrawal; Transaminitis; Hypophosphatemia (corrected during hospital stay) Condition: Good Discharge Goals: Improve disease control Activity: Resume your previous activity Non-emergency contact: Primary Care Provider Call non-emergency contact if: you have any medication questions Follow-up/Referrals: Camila Joyner PA-C [Primary Care Provider] - Diet: Regular Addtl Provider Instructions: Patient is advised to continue to avoid alcohol. Patient is advised to follow up with primary care doctor and for primary care doctor to follow liver functions enzymes. Patient would like to make her own appointment Patient has previous outpatient appointment to : 03/09/2019 3:00 PM Provider Alia Reynoso, PhD Department Psychology, [facility] Prescriptions: Continued fluticasone propion-salmeterol [Advair Diskus] 250-50 mcg/dose blister with device 1 inh inhalation QAM RF: 0 albuterol sulfate [ProAir HFA] 90 mcg/actuation HFA aerosol inhaler 2 puff inhalation Q6H PRN (Reason: Shortness Of Breath) RF: 0 paroxetine HCl 20 mg tablet 20 mg PO DAILY RF: 0 lorazepam 0.5 mg tablet 0.5 mg PO DAILY PRN (Reason: Anxiety) RF: 0 Stand-Alone Forms: [facility] Discharge Orders: Discharge Order (Routine); Ordered 03/01/19 Ordered By: Shakir Novoa Admission Data Admit Date/Time: 02/27/19 17:04 Attending Provider: Shakir Novoa Admit Provider: Marisol Williamson I. Primary Care Provider: Camila Joyner Other Providers: Shakir Novoa Service: Telemetry
[2019-03-01] MEDS ORDERED: GABAPENTIN 600 MG TAB PO SCH (18:00)
[2019-03-03] MEDS ORDERED: GABAPENTIN 600 MG TAB PO SCH (06:00)
== END 2019-03-01 12:44 | disposition home or self-care (01) | DRG 897 ==
LOC: ED 14:43 → 2E 17:04
DX: F41.9 Anxiety disorder, unspecified; E83.39 Other disorders of phosphorus metabolism; Z87.891 Personal history of nicotine dependence; J45.20 Mild intermittent asthma, uncomplicated; R74.0 Nonspecific elevation of levels of transaminase and lactic acid dehydrogenase [LDH]; F10.239 Alcohol dependence with withdrawal, unspecified; Z88.8 Allergy status to other drugs, medicaments and biological substances; Z79.899 Other long term (current) drug therapy

== ENCOUNTER 2019-07-23 16:36 | Inpatient (IN) ==
[2019-07-23] MEDS ORDERED: SODIUM CHLORIDE 0.9% 1000ML 1,000 ML IV ONE (19:14)
[2019-07-23] MEDS ORDERED: ONDANSETRON INJ 2 MG/ML 2 ML VIAL IV STA (19:16)
[2019-07-23] MEDS ORDERED: LORazepam 2 MG/4 ML VIAL IV STA ×2 (19:16→23:15)
--- NOTE | 2019-07-23 19:45 | XRay Report ---
XR chest 1V portable HISTORY: 43 years-old Female Chest Pain acute atypical chest pain COMPARISON: None available TECHNIQUE: Portable AP view of the chest FINDINGS: Cardiomediastinal and hilar silhouettes are within normal limits. There is no pneumothorax, pleural e ffusion, focal airspace consolidation or overt pulmonary edema. Bones of the chest appear grossly int act. IMPRESSION: No acute process. ACT 112: Negative or not required by law. The above report was generated using voice recognition software. It may contain grammatical, syntax o r spelling errors. Electronically signed by: Guero Carney M.D. 07/23/2019 7:44 PM
[2019-07-23 20:24] LABS: Basophils # (auto) 0.02 K/uL (0-0.2); Basophils % (auto) 0.7 %; Eosinophils # (auto) 0.01 K/uL (0-0.5); Eosinophils % (auto) 0.4 %; Hematocrit (blood only) 42.1 % (37-47); Hemoglobin 14.6 g/dL (12.0-16.0); Immature Granulocytes # (auto) 0.01 K/uL (0.00-0.02); Immature Granulocytes % (auto) 0.4 %; Lymphocytes # (auto) 0.91 K/uL (1.2-3.4); Lymphocytes % (auto) 33.7 %; Mean Corpuscular Hemoglobin 34.6 pg (25-34); Mean Corpuscular Hgb Conc 34.7 g/dL (32-36); Mean Corpuscular Volume 99.8 fL (80-100); Mean Platelet Volume 9.6 fL (7.4-10.4); Monocytes # (auto) 0.29 K/uL (0.11-0.59); Monocytes % (auto) 10.7 %; Neutrophils # (auto) 1.46 K/uL (1.4-6.5); Neutrophils % (auto) 54.1 %; Platelet Count 132 K/uL (130-400); RDW Coefficient of Variation 13.4 % (11.5-14.5); RDW Standard Deviation 48.4 fL (36.4-46.3); Red Blood Count 4.22 M/uL (4.2-5.4)
[2019-07-23 20:46] LABS: Alanine Aminotransferase 290 U/L (12-78); Albumin Level 3.8 gm/dl (3.4-5.0); BUN Creatinine Ratio 17.2 (10-20); Blood Urea Nitrogen 14 mg/dl (7-18); Calcium 9.1 mg/dl (8.5-10.1); Carbon Dioxide 20 mmol/L (21-32); Chloride 103 mmol/L (98-107); Est GFR (African American) 106.3; Est GFR (Non-African American) 91.7; Glucose 68 mg/dl (70-99); Lipase 465 U/L (73-393); Sodium 137 mmol/L (136-145)
[2019-07-23 21:12] LABS: Alkaline Phosphatase 116 U/L (45-117); Bilirubin,Total 0.9 mg/dl (0.2-1); Globulin 3.9 gm/dl (2.5-4.0); Total Protein 7.7 gm/dl (6.4-8.2); Troponin I < 0.015 ng/ml (0-0.045)
[2019-07-23 21:13] LABS: Partial Thromboplastin Time 25.9 Seconds (21.0-31.0); Prothrombin Time 10.7 Seconds (9.0-12.0)
[2019-07-23 21:16] LABS: D Dimer 780 ug/L FEU (0-500)
[2019-07-23 22:05] LABS: Potassium 4.2 mmol/L (3.5-5.1)
[2019-07-23 22:11] LABS: Appearance Urine Clear (Clear); Bacteria Urine Automated 1+ (Negative); Blood Urine 1+ (Negative); Color Urine Dark Yellow; Epithelial Cell Urine Auto >30 /lpf (0-5); Glucose Urine UA Negative (Negative); Leukocyte Esterase Urine Negative (Negative); Nitrite Urine Negative (Negative); Protein Urine 2+ (Negative); Specific Gravity Urine 1.032 (1.000-1.030); Urobilinogen Urine Negative (Negative); pH Urine 5.5 (4.5-7.5)
[2019-07-23] MEDS ORDERED: OPTIRAY 320 125ml IV PRN (22:14)
[2019-07-23 22:27] LABS: Bilirubin Urine Negative (Negative); Ictotest Urine Negative (Negative)
[2019-07-23 22:28] LABS: Ketones Urine 3+ (Negative)
--- NOTE | 2019-07-23 22:42 | CT Scan Report ---
CT angio chest PE protocol CT DOSE: 447.02 mGy.cm HISTORY: 43 years-old Female with PE. Acute shortness of breath with asthma TECHNIQUE: Multiple CTA images of the chest were obtained after the intravenous administration of 119 ml Optiray 320. Coronal and sagittal MIPS were obtained from the axial data set and were submitted for review. All measurements were obtained according to NASCET criteria. A dose lowering technique w as utilized adhering to the principles of ALARA. COMPARISON: Chest radiograph of same day FINDINGS: CTA: Heart is upper limits of normal in size. No pericardial effusion. No thoracic aortic aneurysm or diss ection. Patency of the imaged great vessels. Pulmonary artery is opacified to level of the proximal s ubsegmental branches and demonstrates no filling defects to suggest pulmonary thromboembolic disease. CT CHEST: Unremarkable thyroid. No pathologically enlarged lymph nodes. No pneumothorax or pleural effusion. Mi ld bilateral bronchial wall thickening. Mild dependent subsegmental bibasilar atelectasis. Subpleural reticular and groundglass opacities of the nondependent lower lobes, lingula and right middle lobe. There are no suspicious pulmonary nodules or masses. There are a few scattered calcified granulomata. Central airways appear patent. Hepatomegaly with severe hepatic steatosis. Nonspecific mild distal esophageal wall thickening. Breas t parenchyma and soft tissues are unremarkable. Bones appear intact. Healed remote fracture of the la teral left sixth rib. IMPRESSION: 1. No evidence of pulmonary thromboembolic disease. 2. No adenopathy or pleural effusion. 3. Mild subpleural reticular and groundglass opacities of the nondependent right middle lobe, lingula and basal lower lobes is suggestive of a nonspecific infectious or inflammatory pneumonitis. 4. Mild bronchial wall thickening. ACT 112: Negative or not required by law. The above report was generated using voice recognition software. It may contain grammatical, syntax o r spelling errors. Electronically signed by: Guero Carney M.D. 07/23/2019 10:40 PM
[2019-07-23] MEDS ORDERED: MULTI-VITAMIN INFUSION 10 ML, THIAMINE HCL 100 MG, FOLIC ACID 1 MG in SODIUM CHLORIDE 0... IV ONE (23:15)
[2019-07-23] MEDS ORDERED: DOXYCYCLINE HYCLATE 100 MG in DEXTROSE 5% 100 ML IV STA (23:15)
[2019-07-23] MEDS ORDERED: cefTRIAXone SODIUM 1,000 MG/50 ML BAG IV STA (23:15)
[2019-07-23] MEDS ORDERED: AMPICILLIN/SULBACTAM SOD 3,000 MG in 0.9 % SODIUM CHLORIDE 100 ML IV STA (23:25)
[2019-07-23 23:37] LABS: Magnesium 1.9 mg/dl (1.8-2.4)
[2019-07-23 23:58] LABS: Amphetamines+Metham, Urine Neg (Neg); Barbiturates, Urine Neg (Neg); Benzodiazepine, Urine Neg (Neg); Cocaine, Urine Neg (Neg); MDMA (Ecstacy), Urine Neg (Neg); Methadone, Urine Neg (Neg); Opiate, Urine Neg (Neg); Phencyclidine, Urine Neg (Neg)
[2019-07-24] MEDS ORDERED: GABAPENTIN 600 MG TAB PO STA (00:50)
[2019-07-24 00:58] LABS: Pregnancy Test, Urine Negative (Negative)
--- NOTE | 2019-07-24 01:15 | Emergency Department Note ---
Entered by Kylie Mendoza acting as a scribe for Elliot Gonzales MD ED Provider Note CHIEF COMPLAINT: Generalized illness HISTORY OF PRESENT ILLNESS: The patient is a 43 year old female who presents to the Emergency Room with complaints of generalized illness. The patient states that she has been experience sinus and chest cold symptoms for the past 2 weeks which include a cough with blood tinged and yellow sputum as well as rhinorrhea with blood. She also complains of nausea and vomiting after PO and states that she lost 20 lbs in the last 2.5 weeks. Additionally, the patient includes that she has been sleeping for 20 hours per day for the last 2 weeks. She also experienced 1 syncopal episode earlier this week. The patient admits that she is not currently nauseous and that she was able to keep down toast this morning. Of note, the patient states that she has a history of alcoholism and reports that her last ETOH use was 3 days ago. On a weekly basis she normally drinks 1/2 - 1 pint of Vodka or 1 bottle of wine every other day. Pt denies LOC, headache, fevers, chills, diaphoresis, visual changes, neck pain, chest pain, breathing difficulties, abdominal pain, back pain, melena, hematochezia, urinary symptoms, numbness, lymphadenopathy, rash, or other complaints. REVIEW OF SYSTEMS: See HPI for pertinent positives and negatives. A total of ten systems were reviewed and were otherwise negative. PMHx/PSHx: Asthma, alcoholism, ETOH withdrawal (without seizures), hypophosphatemia SOCIAL HISTORY: Patient lives at home. Drinks alcohol regularly. PHYSICAL EXAM: GENERAL: Awake, alert, anxious-appearing, in no distress HENT: Normocephalic, atraumatic. Oropharynx unremarkable. EYES: PERRL. Normal conjunctiva. Sclera non-icteric. NECK: Inspection normal. Non-tender. Supple. No nuchal rigidity. FROM. No masses. RESPIRATORY: Clear to auscultation. No wheezes. No rales. Normal respiratory effort. CARDIAC: Tachycardic rate. Normal rhythm. No murmurs. No rubs. Extremities warm and well perfused. Pulses equal. No JVD. GI: Soft, non-distended. No tenderness to palpation. No rebound or guarding. No masses. RECTAL: Deferred. MUSCULOSKELETAL: Atraumatic. Chest examination reveals no tenderness. The back is symmetrical on inspection without obvious abnormality. There is no CVA t enderness to palpation. No joint edema. LOWER EXTREMITIES: Calves are equal size bilaterally and non-tender. No edema. No discoloration. NEURO: Normal sensorium. No sensory or motor deficits noted. SKIN: No rash or jaundice noted. EMERGENCY DEPARTMENT COURSE: 1912: Past medical records reviewed. The patient was evaluated in room B05, and a complete history and physical examination were performed. 2321: I checked on the patient and she states that she is feeling improved. I spoke with Dr. Salmeron who will further evaluate the patient. The patient ve rbally expressed understanding and agreement of the treatment plan. The patient will be evaluated for further treatment. MEDICAL DECISION MAKING: Prior records/ancillary studies reviewed. Nursing notes reviewed and agree them. Additional history obtained from family. The patient's history was concerning for hemoptysis, alcohol consumption, nausea vomiting, and weakness. Differential diagnosis: Etiologies such as metabolic, infection, hypo/hyperglycemia, electrolyte abnormalities, cardiac sources, intracerebral event, toxicologic, neurologic, as well as others were entertained. Physical examination: As above. ER treatment provided: IV Lock Normal saline hydration IV Ativan x2 IV Zofran Banana bag IV Rocephin IV doxycycline On reassessment the patient felt better. Diagnostics interpretation by me: ECG: Sinus without ischemia. The labs revealed an unremarkable CBC except for slight leukopenia. Coags negative. The patient d-dimer is elevated. Chemistry panel does reveal some mild dehydration. EKG negative for acute process. Patient's liver functions are elevated and lipase is borderline. Troponin negative. Imaging studies: Chest x-ray negative for acute process. CT PE study was performed. No thromboembolic disease negative. Area of pneumonitis noted. The patient has issues alcohol withdrawal as well as pneumonitis. She is dehydrated. Her LFTs are elevated. Further management in the hospital was deemed appropriate. Consultation: A consultation was placed with the hospitalist. The case was discussed and diagnostics were reviewed. The patient was evaluated in the ER for further treatment. IMPRESSION: Pneumonitis, alcohol withdrawal, elevated LFTs, dehydration PLAN: Admitted; Being evaluated by hospitalist The scribe's documentation has been prepared under my direction and personally reviewed by me in its entirety. I confirm that the note above accurately reflects all work, treatment, procedures, and medical decision making performed by me. Impression & Plan Pneumonitis, Alcohol withdrawal, Elevated LFTs, Dehydration Past Med/Surg History Medical History Alcohol abuse (Acute) Anxiety (Chronic) Asthma (Chronic) Surgical History No pertinent past surgical history Family History Father Prediabetes Grandfather (Paternal) Diabetes Other No significant family history Social History Preferred Language: Lao Communication Ability: Effective Aircraft Pilot Required: No Beliefs That Will Affect Care: None marital status details: Single parent Current Living Situation: Family Current Living Situation Comment: With daughter, 15 years old Feels Safe at Home: Yes Smoking Status: Never smoker Age Quit Using Tobacco: 39 ; packs per day: 1 ; Number of Years Since Quit: 4 ; Second Hand Exposure: No ; Hx Alcohol Use: Yes Alcohol type: wine and hard liquor Alcohol type Comment: Takes 1.5 bottle of wine daily and occasional 0.5 pint of vodka Alcohol Intake Frequency: Daily Hx Substance Use: No Childhood Exposure to Second-Hand Smoke: No Results & Data Vital Signs Vital Signs - 24 hr 07/23/19 16:39 07/23/19 21:29 07/23/19 23:11 Temperature 36.9 C Temperature Source Oral Pulse Rate 127 H Pulse Rate [Finger] 110 H 101 H Respiratory Rate 18 20 18 Respiratory Effort / Characteristics Non-Labored Spontaneous Respiratory Depth Normal Blood Pressure 145/98 H Blood Pressure [Right Arm] 125/76 129/87 Blood Pressure Mean 113 Blood Pressure Mean [Right Arm] 92 101 Pulse Oximetry 94 93 92 Oxygen Delivery Method Room Air Room Air Room Air Sepsis Recent Fever Within 48 Hours No Sepsis New/Unexplained Change in Mental Status No Sepsis Action Taken by Nursing No Action Required 07/24/19 00:25 Temperature Temperature Source Pulse Rate Pulse Rate [Finger] 107 H Respiratory Rate 18 Respiratory Effort / Characteristics Respiratory Depth Blood Pressure Blood Pressure [Right Arm] 117/85 Blood Pressure Mean Blood Pressure Mean [Right Arm] 95 Pulse Oximetry 91 Oxygen Delivery Method Room Air Sepsis Recent Fever Within 48 Hours Sepsis New/Unexplained Change in Mental Status Sepsis Action Taken by Group Home Medications Current Medication List: was personally reviewed by me Laboratory Data Attestation: I reviewed the patient's lab results. Result diagrams: 07/23/19 20:06 07/23/19 21:47 Lab Results 07/23/19 07/23/19 07/23/19 Range/Units 20:06 20:06 20:06 WBC 2.70 L (4.8-10.8) K/uL RBC 4.22 (4.2-5.4) M/uL Hgb 14.6 (12.0-16.0) g/dL Hct 42.1 (37-47) % MCV 99.8 (80-100) fL MCH 34.6 H (25-34) pg MCHC 34.7 (32-36) g/dL RDW Std Deviation 48.4 H (36.4-46.3) fL RDW Coeff of Suzanne 13.4 (11.5-14.5) % Plt Count 132 (130-400) K/uL MPV 9.6 (7.4-10.4) fL Immature Gran % (Auto) 0.4 % Neut % (Auto) 54.1 % Lymph % (Auto) 33.7 % Ferry % (Auto) 10.7 % Eos % (Auto) 0.4 % Baso % (Auto) 0.7 % Immature Gran # (Auto) 0.01 (0.00-0.02) K/uL Neut # (Auto) 1.46 (1.4-6.5) K/uL Lymph # (Auto) 0.91 L (1.2-3.4) K/uL Ferry # (Auto) 0.29 (0.11-0.59) K/uL Eos # (Auto) 0.01 (0-0.5) K/uL Baso # (Auto) 0.02 (0-0.2) K/uL PT Cancelled INR Cancelled APTT Cancelled PTT Ratio Cancelled D-Dimer Cancelled Sodium 137 (136-145) mmol/L Potassium (3.5-5.1) mmol/L Chloride 103 (98-107) mmol/L Carbon Dioxide 20 L (21-32) mmol/L Anion Gap 14.0 H (3-11) BUN 14 (7-18) mg/dl Creatinine 0.79 (0.6-1.2) mg/dl Est Cr Clr Drug Dosing 92.0 ml/min Est GFR ( Amer) 106.3 Est GFR (Non-Af Amer) 91.7 BUN/Creatinine Ratio 17.2 (10-20) Glucose 68 L (70-99) mg/dl POC Glucose (70-99) mg/dl Calcium 9.1 (8.5-10.1) mg/dl Magnesium (1.8-2.4) mg/dl Total Bilirubin 0.9 (0.2-1) mg/dl AST (15-37) U/L ALT 290 H (12-78) U/L Alkaline Phosphatase 116 (45-117) U/L Troponin I < 0.015 (0-0.045) ng/ml Total Protein 7.7 (6.4-8.2) gm/dl Albumin 3.8 (3.4-5.0) gm/dl Globulin 3.9 (2.5-4.0) gm/dl Albumin/Globulin Ratio 1.0 (0.9-2) Lipase 465 H (73-393) U/L TSH 2.100 (0.300-4.500) uIu/ml Urine Color Urine Appearance (Clear) Urine pH (4.5-7.5) Ur Specific [place] (1.000-1.030) Urine Protein (Negative) Urine Glucose (UA) (Negative) Urine Ketones (Negative) Urine Blood (Negative) Urine Nitrite (Negative) Urine Bilirubin (Negative) Urine Urobilinogen (Negative) Ur Leukocyte Esterase (Negative) Urine WBC (Auto) (0-5) /hpf Urine RBC (Auto) (0-4) /hpf U Hyaline Cast (Auto) (0-5) /lpf U Epithel Cells (Auto) (0-5) /lpf Urine Bacteria (Auto) (Negative) Urine Test (Negative) Urine Opiates Screen (Neg) Ur Methadone, Qual (Neg) Urine Barbiturates (Neg) Ur Phencyclidine (PCP) (Neg) U Amphetamin/Meth Scrn (Neg) MDMA (Ecstasy) Screen (Neg) U Benzodiazepines Scrn (Neg) Ur Cocaine Metabolite (Neg) U Marijuana (THC) Screen (Neg) 07/23/19 07/23/19 07/23/19 Range/Units 20:56 20:56 21:30 WBC (4.8-10.8) K/uL RBC (4.2-5.4) M/uL Hgb (12.0-16.0) g/dL Hct (37-47) % MCV (80-100) fL MCH (25-34) pg MCHC (32-36) g/dL RDW Std Deviation (36.4-46.3) fL RDW Coeff of Suzanne (11.5-14.5) % Plt Count (130-400) K/uL MPV (7.4-10.4) fL Immature Gran % (Auto) % Neut % (Auto) % Lymph % (Auto) % Ferry % (Auto) % Eos % (Auto) % Baso % (Auto) % Immature Gran # (Auto) (0.00-0.02) K/uL Neut # (Auto) (1.4-6.5) K/uL Lymph # (Auto) (1.2-3.4) K/uL F[place] # (Auto) (0.11-0.59) K/uL Eos # (Auto) (0-0.5) K/uL Baso # (Auto) (0-0.2) K/uL PT 10.7 INR 1.0 APTT 25.9 PTT Ratio 1.0 D-Dimer 780 H* Sodium (136-145) mmol/L Potassium Cancelled (3.5-5.1) mmol/L Chloride (98-107) mmol/L Carbon Dioxide (21-32) mmol/L Anion Gap (3-11) BUN (7-18) mg/dl Creatinine (0.6-1.2) mg/dl Est Cr Clr Drug Dosing ml/min Est GFR ( Amer) Est GFR (Non-Af Amer) BUN/Creatinine Ratio (10-20) Glucose (70-99) mg/dl POC Glucose (70-99) mg/dl Calcium (8.5-10.1) mg/dl Magnesium (1.8-2.4) mg/dl Total Bilirubin (0.2-1) mg/dl AST Cancelled (15-37) U/L ALT (12-78) U/L Alkaline Phosphatase (45-117) U/L Troponin I (0-0.045) ng/ml Total Protein (6.4-8.2) gm/dl Albumin (3.4-5.0) gm/dl Globulin (2.5-4.0) gm/dl Albumin/Globulin Ratio (0.9-2) Lipase (73-393) U/L TSH (0.300-4.500) uIu/ml Urine Color Dark Yellow Urine Appearance Clear (Clear) Urine pH 5.5 (4.5-7.5) Ur Specific [place] 1.032 H (1.000-1.030) Urine Protein 2+ H (Negative) Urine Glucose (UA) Negative (Negative) Urine Ketones 3+ H (Negative) Urine Blood 1+ H (Negative) Urine Nitrite Negative (Negative) Urine Bilirubin Negative (Negative) Urine Urobilinogen Negative (Negative) Ur Leukocyte Esterase Negative (Negative) Urine WBC (Auto) 1-5 (0-5) /hpf Urine RBC (Auto) 5-10 H (0-4) /hpf U Hyaline Cast (Auto) 1-5 (0-5) /lpf U Epithel Cells (Auto) >30 H (0-5) /lpf Urine Bacteria (Auto) 1+ H (Negative) Urine Test (Negative) Urine Opiates Screen (Neg) Ur Methadone, Qual (Neg) Urine Barbiturates (Neg) Ur Phencyclidine (PCP) (Neg) U Amphetamin/Meth Scrn (Neg) MDMA (Ecstasy) Screen (Neg) U Benzodiazepines Scrn (Neg) Ur Cocaine Metabolite (Neg) U Marijuana (THC) Screen (Neg) 07/23/19 07/23/19 07/23/19 Range/Units 21:30 21:30 21:46 WBC (4.8-10.8) K/uL RBC (4.2-5.4) M/uL Hgb (12.0-16.0) g/dL Hct (37-47) % MCV (80-100) fL MCH (25-34) pg MCHC (32-36) g/dL RDW Std Deviation (36.4-46.3) fL RDW Coeff of Suzanne (11.5-14.5) % Plt Count (130-400) K/uL MPV (7.4-10.4) fL Immature Gran % (Auto) % Neut % (Auto) % Lymph % (Auto) % [place]erry % (Auto) % Eos % (Auto) % Baso % (Auto) % Immature Gran # (Auto) (0.00-0.02) K/uL Neut # (Auto) (1.4-6.5) K/uL Lymph # (Auto) (1.2-3.4) K/uL [place]erry # (Auto) (0.11-0.59) K/uL Eos # (Auto) (0-0.5) K/uL Baso # (Auto) (0-0.2) K/uL PT INR APTT PTT Ratio D-Dimer Sodium (136-145) mmol/L Potassium (3.5-5.1) mmol/L Chloride (98-107) mmol/L Carbon Dioxide (21-32) mmol/L Anion Gap (3-11) BUN (7-18) mg/dl Creatinine (0.6-1.2) mg/dl Est Cr Clr Drug Dosing ml/min Est GFR ( Amer) Est GFR (Non-Af Amer) BUN/Creatinine Ratio (10-20) Glucose (70-99) mg/dl POC Glucose 105 H (70-99) mg/dl Calcium (8.5-10.1) mg/dl Magnesium (1.8-2.4) mg/dl Total Bilirubin (0.2-1) mg/dl AST (15-37) U/L ALT (12-78) U/L Alkaline Phosphatase (45-117) U/L Troponin I (0-0.045) ng/ml Total Protein (6.4-8.2) gm/dl Albumin (3.4-5.0) gm/dl Globulin (2.5-4.0) gm/dl Albumin/Globulin Ratio (0.9-2) Lipase (73-393) U/L TSH (0.300-4.500) uIu/ml Urine Color Urine Appearance (Clear) Urine pH (4.5-7.5) Ur Specific [place] (1.000-1.030) Urine Protein (Negative) Urine Glucose (UA) (Negative) Urine Ketones (Negative) Urine Blood (Negative) Urine Nitrite (Negative) Urine Bilirubin (Negative) Urine Urobilinogen (Negative) Ur Leukocyte Esterase (Negative) Urine WBC (Auto) (0-5) /hpf Urine RBC (Auto) (0-4) /hpf U Hyaline Cast (Auto) (0-5) /lpf U Epithel Cells (Auto) (0-5) /lpf Urine Bacteria (Auto) (Negative) Urine Test Negative (Negative) Urine Opiates Screen Neg (Neg) Ur Methadone, Qual Neg (Neg) Urine Barbiturates Neg (Neg) Ur Phencyclidine (PCP) Neg (Neg) U Amphetamin/Meth Scrn Neg (Neg) MDMA (Ecstasy) Screen Neg (Neg) U Benzodiazepines Scrn Neg (Neg) Ur Cocaine Metabolite Neg (Neg) U Marijuana (THC) Screen Neg (Neg) 07/23/19 Range/Units 21:47 WBC (4.8-10.8) K/uL RBC (4.2-5.4) M/uL Hgb (12.0-16.0) g/dL Hct (37-47) % MCV (80-100) fL MCH (25-34) pg MCHC (32-36) g/dL RDW Std Deviation (36.4-46.3) fL RDW Coeff of Suzanne (11.5-14.5) % Plt Count (130-400) K/uL MPV (7.4-10.4) fL Immature Gran % (Auto) % Neut % (Auto) % Lymph % (Auto) % [place] % (Auto) % Eos % (Auto) % Baso % (Auto) % Immature Gran # (Auto) (0.00-0.02) K/uL Neut # (Auto) (1.4-6.5) K/uL Lymph # (Auto) (1.2-3.4) K/uL [place] # (Auto) (0.11-0.59) K/uL Eos # (Auto) (0-0.5) K/uL Baso # (Auto) (0-0.2) K/uL PT INR APTT PTT Ratio D-Dimer Sodium (136-145) mmol/L Potassium 4.2 (3.5-5.1) mmol/L Chloride (98-107) mmol/L Carbon Dioxide (21-32) mmol/L Anion Gap (3-11) BUN (7-18) mg/dl Creatinine (0.6-1.2) mg/dl Est Cr Clr Drug Dosing ml/min Est GFR ( Amer) Est GFR (Non-Af Amer) BUN/Creatinine Ratio (10-20) Glucose (70-99) mg/dl POC Glucose (70-99) mg/dl Calcium (8.5-10.1) mg/dl Magnesium 1.9 (1.8-2.4) mg/dl Total Bilirubin (0.2-1) mg/dl AST 374 H (15-37) U/L ALT (12-78) U/L Alkaline Phosphatase (45-117) U/L Troponin I (0-0.045) ng/ml Total Protein (6.4-8.2) gm/dl Albumin (3.4-5.0) gm/dl Globulin (2.5-4.0) gm/dl Albumin/Globulin Ratio (0.9-2) Lipase (73-393) U/L TSH (0.300-4.500) uIu/ml Urine Color Urine Appearance (Clear) Urine pH (4.5-7.5) Ur Specific [place] (1.000-1.030) Urine Protein (Negative) Urine Glucose (UA) (Negative) Urine Ketones (Negative) Urine Blood (Negative) Urine Nitrite (Negative) Urine Bilirubin (Negative) Urine Urobilinogen (Negative) Ur Leukocyte Esterase (Negative) Urine WBC (Auto) (0-5) /hpf Urine RBC (Auto) (0-4) /hpf U Hyaline Cast (Auto) (0-5) /lpf U Epithel Cells (Auto) (0-5) /lpf Urine Bacteria (Auto) (Negative) Urine Test (Negative) Urine Opiates Screen (Neg) Ur Methadone, Qual (Neg) Urine Barbiturates (Neg) Ur Phencyclidine (PCP) (Neg) U Amphetamin/Meth Scrn (Neg) MDMA (Ecstasy) Screen (Neg) U Benzodiazepines Scrn (Neg) Ur Cocaine Metabolite (Neg) U Marijuana (THC) Screen (Neg) Administered Medications Ioversol (Optiray 320 125ml) 119 ml IV ONCE PRN PRN Reason: Interaction Checking Stop: 07/27/19 22:13 Last Admin: 07/23/19 22:14 Dose: 119 ml Documented by: [id number] Discontinued Medications Sodium Chloride (Nss 1000ml) 1,000 mls @ 999 mls/hr IV .Q1H1M ONE Stop: 01/31/20 20:14 Last Infusion: 07/23/19 21:31 Dose: 0 mls/hr Documented by: [id number] Admin: 07/23/19 20:20 Dose: 999 mls/hr Documented by: [id number] Lorazepam (Ativan) 2 mg in 4 mls @ 4 mls/min IV NOW STA Stop: 07/23/19 19:17 Last Admin: 07/23/19 20:14 Dose: 4 mls/min Documented by: [id number] Multivitamins 10 ml/ Thiamine HCl 100 mg/ Folic Acid 1 mg/Sodium Chloride 1,011.2 mls @ 1,011.2 mls/hr IV .Q1H ONE Stop: 07/24/19 00:14 Last Admin: 07/24/19 00:20 Dose: 1,011.2 mls/hr Documented by: [id number] Lorazepam (Ativan) 2 mg in 4 mls @ 4 mls/min IV NOW STA Stop: 07/23/19 23:16 Last Admin: 07/23/19 23:44 Dose: 4 mls/min Documented by: [id number] Doxycycline Hyclate 100 mg/ (Dextrose) 110 mls @ 50 mls/hr IV NOW STA Stop: 07/24/19 01:26 Last Admin: 07/24/19 00:32 Dose: Not Given Documented by: [id number] Ceftriaxone Sodium (Rocephin) 1,000 mg in 50 mls @ 100 mls/hr IV NOW STA Stop: 07/23/19 23:44 Last Admin: 07/24/19 00:32 Dose: Not Given Documented by: [id number] Ampicillin Sodium/Sulbactam Sodium 3,000 mg/ Sodium Chloride 108 mls @ 200 mls/hr IV NOW STA Stop: 07/23/19 23:57 Last Infusion: 07/24/19 00:57 Dose: 0 mls/hr Documented by: [id number] Admin: 07/24/19 00:20 Dose: 200 mls/hr Documented by: [id number] Methylprednisolone (Solumedrol) 40 mg IV NOW STA Stop: 07/23/19 23:58 Last Admin: 07/24/19 00:20 Dose: 40 mg Documented by: [id number] Ondansetron HCl (Zofran) 4 mg IV NOW STA Stop: 07/23/19 19:17 Last Admin: 07/23/19 20:14 Dose: 4 mg Documented by: [id number] Imaging Data Radiologist's Impression: Radiology results as stated below per my review and the radiologist's interpretation: XR chest 1V portable HISTORY: 43 years-old Female Chest Pain acute atypical chest pain COMPARISON: None available TECHNIQUE: Portable AP view of the chest FINDINGS: Cardiomediastinal and hilar silhouettes are within normal limits. There is no pneumothorax, pleural effusion, focal airspace consolidation or overt pulmonary edema. Bones of the chest appear grossly intact. IMPRESSION: No acute process. ACT 112: Negative or not required by law. The above report was generated using voice recognition software. It may contain grammatical, syntax or spelling errors. Electronically signed by: Guero Carney M.D. 07/23/2019 7:[address] angio chest PE protocol CT DOSE: 447.02 mGy.cm HISTORY: 43 years-old Female with PE. Acute shortness of breath with asthma TECHNIQUE: Multiple CTA images of the chest were obtained after the intravenous administration of 119 ml Optiray 320. Coronal and sagittal MIPS were obtained from the axial data set and were submitted for review. All measurements were obtained according to NASCET criteria. A dose lowering technique was utilized adhering to the principles of ALARA. COMPARISON: Chest radiograph of same day FINDINGS: CTA: Heart is upper limits of normal in size. No pericardial effusion. No thoracic aortic aneurysm or dissection. Patency of the imaged great vessels. Pulmonary artery is opacified to level of the proximal subsegmental branches and demonstrates no filling defects to suggest pulmonary thromboembolic disease. CT CHEST: Unremarkable thyroid. No pathologically enlarged lymph nodes. No pneumothorax or pleural effusion. Mild bilateral bronchial wall thickening. Mild dependent s ubsegmental bibasilar atelectasis. Subpleural reticular and groundglass opacities of the nondependent lower lobes, lingula and right middle lobe. There are no suspicious pulmonary nodules or masses. There are a few scattered calcified granulomata. Central airways appear patent. Hepatomegaly with severe hepatic steatosis. Nonspecific mild distal esophageal wall thickening. Breast parenchyma and soft tissues are unremarkable. Bones appear intact. Healed remote fracture of the lateral left sixth rib. IMPRESSION: 1. No evidence of pulmonary thromboembolic disease. 2. No adenopathy or pleural effusion. 3. Mild subpleural reticular and groundglass opacities of the nondependent right middle lobe, lingula and basal lower lobes is suggestive of a nonspecific infectious or inflammatory pneumonitis. 4. Mild bronchial wall thickening. ACT 112: Negative or not required by law. The above report was generated using voice recognition software. It may contain grammatical, syntax or spelling errors. Electronically signed by: Guero Carney M.D. 07/23/2019 10:40 PM ECG Data Attestation: I personally reviewed and interpreted this ECG as follows: Indication: + chest pain Rate (beats per minute): 88 Rhythm: normal sinus ECG Intervals/blocks: + Normal QRS ECG [place]: + Normal ECG ST segments: no ST depression and no ST elevation ECG Findings: no PACs and no PVCs Blood Pressure Blood Pressure Findings: Elevated blood pressure Blood Pressure Disposition: further management by hospitalist Discharge Plan Visit Data Chief Complaint: Illness Stated Complaint: WEIGHT LOSS, FAINT, COUGHING BLOOD ED Provider: Elliot Gonzales Discharge Problem: Pneumonitis, Alcohol withdrawal, Elevated LFTs, Dehydration Patient Disposition: Being Evaluated by Hospitalist Forms Stand Alone Forms: [facility] Prescriptions Prescriptions: No Action fluticasone propion-salmeterol [Advair Diskus] 250-50 mcg/dose blister with device 1 inh inhalation QAM RF: 0 paroxetine HCl 20 mg tablet 20 mg PO DAILY RF: 0 trazodone 50 mg tablet 50 mg PO HS PRN (Reason: Sleep) RF: 0 albuterol sulfate [Ventolin HFA] 90 mcg/actuation Hfa Aerosol Inhaler 2 puff INHALATION Q6H PRN (Reason: Shortness Of Breath) RF: 0 hydroxyzine HCl 10 mg tablet 10 mg PO Q8 PRN (Reason: Anxiety) RF: 0 [place] Cough Drops 3.2 mg Lozenge 0 mg PO UD PRN (Reason: Cough) RF: 0 fluticasone propion-salmeterol [Advair Diskus] 250-50 mcg/dose blister with device 1 ea INHALATION BID RF: 0 Referrals Referrals: Camila Joyner PA-C [Primary Care Provider] - Discharge Problem: Alcohol withdrawal Qualifiers: Complication of substance-induced condition: uncomplicated Qualified Code(s): F10.230 - Alcohol dependence with withdrawal, uncomplicated The scribe's documentation has been prepared under my direction and personally reviewed by me in its entirety. I confirm that the note above accurately reflects all work, treatment, procedures, and medical decision making performed by me.
[2019-07-24 01:40] LABS: Influenza A virus by PCR Neg for Influ A (Neg); Influenza B virus by PCR Neg for Influ B (Neg)
[2019-07-24] MEDS ORDERED: SODIUM CHLORIDE 0.9% 1000ML 1,000 ML IV ONE ×2 (01:54→02:11)
[2019-07-24] MEDS ORDERED: ATIVAN IV ALCOHOL WITHDRAWL IV PRN (01:54)
[2019-07-24] MEDS ORDERED: GABAPENTIN 1200MG ALCOHOL WITHDRAWAL LOAD PO STA (01:54)
[2019-07-24] MEDS ORDERED: LEVALBUTEROL 1.25MG/0.5ML NEB INH PRN (01:54)
[2019-07-24] MEDS ORDERED: XOPENEX/ATROVENT 1.25mg/0.5MG NEB COMBO NEB PRN (01:54)
[2019-07-24] MEDS ORDERED: PROMETHAZINE HCL 12.5 MG in SODIUM CHLORIDE 0.9% 50 ML IV PRN (01:54)
[2019-07-24] MEDS ORDERED: ACETAMINOPHEN 325 MG TAB PO PRN (01:54)
[2019-07-24] MEDS ORDERED: IPRATROPIUM BROMIDE NEB SOLN 0.02% 2.5 ML VIAL INH PRN (01:54)
[2019-07-24] MEDS ORDERED: LORazepam 3 MG/6 ML VIAL IV PRN (01:54)
[2019-07-24] MEDS ORDERED: OXYCODONE HCL IR 5 MG TAB (IMMEDIATE RELEASE) PO PRN (01:54)
--- NOTE | 2019-07-24 02:12 | History & Physical Report ---
Date of Service July 24, 2019 Assessment & Plan (1) Pneumonia: CAP vs aspiration pneumonia No sepsis Alcohol withdrawal Alcoholic hepatitis, good prognosis with Maddrey's DF of less than 10 past tobacco abuse mood disorder, suboptimal depression Medical telemetry Unasyn Solu-Medrol 1 dose for pneumonia presenting as hemoptysis Aspiration precautions, swallow eval Nebs as needed Pulmonary consult if with progressive hemoptysis DT precautions Follow LFTs, GI consult if with significant progression Psych consult RE suboptimal depression DVT prophylaxis. SCDs RE hemoptysis Full code History of Present Illness Chief Complaint: Hemoptysis Primary Care Provider: Camila Joyner PA-C History obtained from patient and records. Medical history significant for asthma/mild COPD as per records, alcohol abuse, past tobacco abuse, anxiety/mood disorder. Recent confinement February 2019 for alcohol withdrawal. Patient was sober after discharge up until last month when she started drinking again due to home/work stressors. Depression not well denies suicidality. Patient has been sick the last week with sinus congestion/drainage, dry heaving, junky cough symptoms. Possible sick contacts. Coughing with meals/water intake if not careful. No chest pain, S OB. Symptoms not typical of asthma attack as per patient. Patient seen at PCPs office last week. Supportive management recommended. Worsening cough symptoms later productive of bloody sputum at home associated with shortness of breath. Patient somewhat jittery at home. Last drink was 2 days ago. No history of alcohol withdrawal seizures/intubation for alcohol withdrawal. Patient brought to the ER by her family. 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 Allergies Allergy/AdvReac Type Severity Reaction Status Date / Time theophylline AdvReac Unknown VERTIGO Verified 07/23/19 20:37 Home Medications Home Medications Medication Instructions Recorded Confirmed Type fluticasone propion-salmeterol 1 inh INHALATION QAM 02/27/19 07/23/19 History [Advair Diskus] paroxetine HCl 20 mg PO DAILY 02/27/19 07/23/19 History albuterol sulfate [Ventolin HFA] 2 puff INHALATION Q6H PRN 07/23/19 07/23/19 History fluticasone propion-salmeterol 1 ea INHALATION BID 07/23/19 07/23/19 History [Advair Diskus] hydroxyzine HCl 10 mg PO Q8 PRN 07/23/19 07/23/19 History menthol [[place] Cough Drops] 0 mg PO UD PRN 07/23/19 07/23/19 History trazodone 50 mg PO HS PRN 07/23/19 07/23/19 History Past Med/Surg History Medical History Alcohol abuse (Acute) Anxiety (Chronic) Asthma (Chronic) Surgical History No pertinent past surgical history Family History Father Prediabetes Grandfather (Paternal) Diabetes Other No significant family history Social History Preferred Language: Gibralt[place] Communication Ability: 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 Beliefs That Will Affect Care: None marital status details: Single parent Current Living Situation: Family Current Living Situation Comment: with daughter- 16 years old Feels Safe at Home: Yes Safety Concerns: Feels Safe At This Time Smoking Status: Former smoker Tobacco Type: cigarettes ; Age Quit Using Tobacco: 39 ; packs per day: 1 ; Do You Dip or Chew Tobacco: No ; Smoking End Date: smoked from [age] years old ; Number of Years Since Quit: 4 ; Second Hand Exposure: No ; Hx Alcohol Use: Yes Alcohol type: wine and hard liquor Alcohol type Comment: Takes 1.5 bottle of wine daily and occasional 0.5 pint of vodka Alcohol Intake Frequency: Daily Hx Substance Use: No Childhood Exposure to Second-Hand Smoke: No Review of Systems Review of Systems: As per HPI, all 10 systems reviewed, all other ROS negative Physical Exam Physical Exam: GENERAL: Slightly uncomfortable, obese, no respiratory distress SKIN: Normal color, warm HEENT: [place] palpebral conjunctivae, no ptosis, dry buccal mucosa NECK : Supple, supple neck, no tenderness CHEST : Decreased breath sounds, occasional expiratory wheeze, no tenderness HEART : Tachycardic , no obvious murmurs ABDOMEN: Some distention, nontender EXTREMITIES : No LE swelling/tenderness, no other conspicuous deformities noted NEUROLOGIC : Coherent, no facial asymmetry, tremulous, no other gross focality Results & Data Vital Signs (Past 12 Hours) Vital Signs Temp Pulse Pulse Resp BP BP Pulse Ox 07/24/19 01:25 104 H 18 120/82 96 07/24/19 00:25 107 H 18 117/85 91 07/23/19 23:11 101 H 18 129/87 92 07/23/19 21:29 110 H 20 125/76 93 07/23/19 16:39 36.9 C 127 H 18 145/98 H 94 Laboratory Results Laboratory Results WBC 2.70 K/uL (4.8-10.8) L 07/23/19 20:06 RBC 4.22 M/uL (4.2-5.4) 07/23/19 20:06 Hgb 14.6 g/dL (12.0-16.0) 07/23/19 20:06 Hct 42.1 % (37-47) 07/23/19 20:06 MCV 99.8 fL (80-100) 07/23/19 20:06 MCH 34.6 pg (25-34) H 07/23/19 20:06 MCHC 34.7 g/dL (32-36) 07/23/19 20:06 RDW Std Deviation 48.4 fL (36.4-46.3) H 07/23/19 20:06 RDW Coeff of Suzanne 13.4 % (11.5-14.5) 07/23/19 20:06 Plt Count 132 K/uL (130-400) 07/23/19 20:06 MPV 9.6 fL (7.4-10.4) 07/23/19 20:06 Immature Gran % (Auto) 0.4 % 07/23/19 20:06 Neut % (Auto) 54.1 % 07/23/19 20:06 Lymph % (Auto) 33.7 % 07/23/19 20:06 [place] % (Auto) 10.7 % 07/23/19 20:06 Eos % (Auto) 0.4 % 07/23/19 20:06 Baso % (Auto) 0.7 % 07/23/19 20:06 Immature Gran # (Auto) 0.01 K/uL (0.00-0.02) 07/23/19 20:06 Neut # (Auto) 1.46 K/uL (1.4-6.5) 07/23/19 20:06 Lymph # (Auto) 0.91 K/uL (1.2-3.4) L 07/23/19 20:06 [place] # (Auto) 0.29 K/uL (0.11-0.59) 07/23/19 20:06 Eos # (Auto) 0.01 K/uL (0-0.5) 07/23/19 20:06 Baso # (Auto) 0.02 K/uL (0-0.2) 07/23/19 20:06 PT 10.7 Seconds (9.0-12.0) 07/23/19 20:56 INR 1.0 (0.9-1.1) 07/23/19 20:56 APTT 25.9 Seconds (21.0-31.0) 07/23/19 20:56 PTT Ratio 1.0 07/23/19 20:56 D-Dimer 780 ug/L FEU (0-500) H* 07/23/19 20:56 Sodium 137 mmol/L (136-145) 07/23/19 20:06 Potassium 4.2 mmol/L (3.5-5.1) 07/23/19 21:47 Chloride 103 mmol/L (98-107) 07/23/19 20:06 Carbon Dioxide 20 mmol/L (21-32) L 07/23/19 20:06 Anion Gap 14.0 (3-11) H 07/23/19 20:06 BUN 14 mg/dl (7-18) 07/23/19 20:06 Creatinine 0.79 mg/dl (0.6-1.2) 07/23/19 20:06 Est Cr Clr Drug Dosing 92.0 ml/min 07/23/19 20:06 Est GFR ( Amer) 106.3 07/23/19 20:06 Est GFR (Non-Af Amer) 91.7 07/23/19 20:06 BUN/Creatinine Ratio 17.2 (10-20) 07/23/19 20:06 Glucose 68 mg/dl (70-99) L 07/23/19 20:06 POC Glucose 105 mg/dl (70-99) H 07/23/19 21:46 Calcium 9.1 mg/dl (8.5-10.1) 07/23/19 20:06 Magnesium 1.9 mg/dl (1.8-2.4) 07/23/19 21:47 Total Bilirubin 0.9 mg/dl (0.2-1) 07/23/19 20:06 AST 374 U/L (15-37) H 07/23/19 21:47 ALT 290 U/L (12-78) H 07/23/19 20:06 Alkaline Phosphatase 116 U/L (45-117) 07/23/19 20:06 Troponin I < 0.015 ng/ml (0-0.045) 07/23/19 20:06 Total Protein 7.7 gm/dl (6.4-8.2) 07/23/19 20: Albumin 3.8 gm/dl (3.4-5.0) 07/23/19 20:06 Globulin 3.9 gm/dl (2.5-4.0) 07/23/19 20:06 Albumin/Globulin Ratio 1.0 (0.9-2) 07/23/19 20: Lipase 465 U/L (73-393) H 07/23/19 20:06 TSH 2.100 uIu/ml (0.300-4.500) 07/23/19 20:06 Urine Color Dark Yellow 07/23/19 21:30 Urine Appearance Clear (Clear) 07/23/19 21: Urine pH 5.5 (4.5-7.5) 07/23/19 21:30 Ur Specific [place] 1.032 (1.000-1.030) H 07/23/19 21:30 Urine Protein 2+ (Negative) H 07/23/19 21:30 Urine Glucose (UA) Negative (Negative) 07/23/19 21:30 Urine Ketones 3+ (Negative) H 07/23/19 21:30 Urine Blood 1+ (Negative) H 07/23/19 21: Urine Nitrite Negative (Negative) 07/23/19 21:30 Urine Bilirubin Negative (Negative) 07/23/19 21:30 Urine Urobilinogen Negative (Negative) 07/23/19 21:30 Ur Leukocyte Esterase Negative (Negative) 07/23/19 21:30 Urine WBC (Auto) 1-5 /hpf (0-5) 07/23/19 21:30 Urine RBC (Auto) 5-10 /hpf (0-4) H 07/23/19 21:30 U Hyaline Cast (Auto) 1-5 /lpf (0-5) 07/23/19 21:30 U Epithel Cells (Auto) >30 /lpf (0-5) H 07/23/19 21:30 Urine Bacteria (Auto) 1+ (Negative) H 07/23/19 21:30 Urine Test Negative (Negative) 07/23/19 21:30 Urine Opiates Screen Neg (Neg) 07/23/19 21:30 Ur Methadone, Qual Neg (Neg) 07/23/19 21:30 Urine Barbiturates Neg (Neg) 07/23/19 21:30 Ur Phencyclidine (PCP) Neg (Neg) 07/23/19 21:30 U Amphetamin/Meth Scrn Neg (Neg) 07/23/19 21:30 MDMA (Ecstasy) Screen Neg (Neg) 07/23/19 21:30 U Benzodiazepines Scrn Neg (Neg) 07/23/19 21:30 Ur Cocaine Metabolite Neg (Neg) 07/23/19 21:30 U Marijuana (THC) Screen Neg (Neg) 07/23/19 21:30 Influenza Type A (PCR) Neg for Influ A (Neg) 07/24/19 00:36 Influenza Type B (PCR) Neg for Influ B (Neg) 07/24/19 00:[address] chest: 1. No evidence of pulmonary thromboembolic disease. 2. No adenopathy or pleural effusion. 3. Mild subpleural reticular and groundglass opacities of the nondependent right middle lobe, lingula and basal lower lobes is suggestive of a nonspecific infectious or inflammatory pneumonitis. 4. Mild bronchial wall thickening. EKG as per my interpretation: Rate 90, NSR, normal axis, no ischemia Code Status & VTE Plan VTE Prophylaxis Plan VTE Prophylaxis will be ordered: Yes
[2019-07-24] MEDS ORDERED: AMPICILLIN/SULBACTAM CONSULT ACTIVE PRN (07:06)
[2019-07-24 08:04] LABS: Hematocrit (blood only) 40.3 % (37-47); Hemoglobin 13.6 g/dL (12.0-16.0); Mean Corpuscular Hgb Conc 33.7 g/dL (32-36); Mean Corpuscular Volume 100.8 fL (80-100); Mean Platelet Volume 9.6 fL (7.4-10.4); Nucleated RBC # (auto) 0.02 K/uL (0-0); Nucleated RBC % (auto) 1.7 %; Platelet Count 107 K/uL (130-400); RDW Coefficient of Variation 13.5 % (11.5-14.5); RDW Standard Deviation 49.9 fL (36.4-46.3); White Blood Count 1.17 K/uL (4.8-10.8)
[2019-07-24 08:41] LABS: Albumin Level 3.6 gm/dl (3.4-5.0); BUN Creatinine Ratio 14.4 (10-20); Creatinine Clr Calc Pharmacy 105.2 ml/min; Est GFR (Non-African American) 106.1; Potassium 4.5 mmol/L (3.5-5.1)
[2019-07-24] MEDS: LORazepam 1 MG/2 ML VIAL IV PRN ×4 (08:41→23:57)
[2019-07-24] MEDS: GABAPENTIN 600 MG TAB PO SCH ×3 (08:42→21:29)
[2019-07-24] MEDS: PARoxetine HCl 20 MG TAB PO SCH (08:42)
[2019-07-24] MEDS: MULTIVITAMIN TAB PO SCH (08:43)
[2019-07-24 08:45] LABS: Bilirubin,Total 0.8 mg/dl (0.2-1); Globulin 3.6 gm/dl (2.5-4.0); Total Protein 7.2 gm/dl (6.4-8.2)
[2019-07-24] MEDS: AMPICILLIN/SULBACTAM SOD 3,000 MG in 0.9 % SODIUM CHLORIDE 100 ML IV SCH ×3 (08:55→18:38)
[2019-07-24] MEDS: FLUTICASONE/VILANTEROL 100/25MCG 14 PUFFS/INHALER INH SCH (08:57)
[2019-07-24] MEDS ORDERED: FLUTICASONE/SALMETEROL 250/50 (ADVAIR) 14 PUFF/1 INHALER INH SCH (09:00)
[2019-07-24 09:16] LABS: Basophils # (auto) 0.01 K/uL (0-0.2); Basophils % (auto) 0.9 %; Lymphocytes # (auto) 0.29 K/uL (1.2-3.4); Lymphocytes % (auto) 24.8 %; Monocytes # (auto) 0.03 K/uL (0.11-0.59); Monocytes % (auto) 2.6 %; Neutrophils # (auto) 0.84 K/uL (1.4-6.5); Neutrophils % (auto) 71.7 %
--- NOTE | 2019-07-24 13:41 | Psychiatric Consultation ---
Date of Consultation July 24, 2019 Impression / Recommendations Impression 43 yo female self-medicating anxiety with Etoh, worse following d/c of Ativan which should not be combined with EToh and only used for detox. ETOH use resulting in depressive symptoms. (1) Alcohol withdrawal: continue hospital protocol, mild sedation from Neurontin, SW may assess amenability to rehab from a psych standpoint, no indication for inpatient psych hospitalization and would be psychiatrically stable for discharge to appropriate level of substance use treatment. Would benefit from seeing a psychiatric provider, since therapist at [facility] could see [facility] provider. since already on Paxil, dose could be titrated to 30 mg upon completion of detox. Complication of substance-induced condition: uncomplicated Qualified Code(s): F10.230 - Alcohol dependence with withdrawal, uncomplicated Risk Factors Assessment Do You Have Access To A Gun?: No Psych History Identifying Data 43 yo female from [place], consult by Dr. Pastor for depression. Admit 07/24/19 for management of withdrawal, concerns for depression. Parents at bedside with her permission, met with liaison 1-on-1. Chief Complaint "alot of anxiety" History of Present Illness States that she hasn't been doing as well since her Ativan prescription was stopped in favor of Vistaril given ongoing ETOH use. Reported main concern as work stress. She often feels down and hopeless but denies suicidal ideation. She has difficulty falling and staying asleep. She has lost 20 lbs despite Etoh use. She has trouble concentrating. Reports having some benefit from Paxil, on it 6 months. PHQ-9 14 and 0 on #9. She is feeling tremulous at this time, started when got a sinus infection and stopped ETOH abruptly, up to that point she had infrequent panic, feels IVF and Ativan prn here in hospital helpful. Neurontin is causing some fatigue and delay in response. Past Psychiatric History Outpatient Services: therapist [place] [facility] Previous Psych Admissions: none Do You Have Access To A Gun?: No History of Previous Suicide Attempt: No Past Medication Trials: only listed above Allergies Allergy/AdvReac Type Severity Reaction Status Date / Time theophylline AdvReac Unknown VERTIGO Verified 07/23/19 20:37 Home Medications Home Medications Medication Instructions Recorded Confirmed Type fluticasone propion-salmeterol 1 inh INHALATION QAM 02/27/19 07/23/19 History [Advair Diskus] paroxetine HCl 20 mg PO DAILY 02/27/19 07/23/19 History albuterol sulfate [Ventolin HFA] 2 puff INHALATION Q6H PRN 07/23/19 07/23/19 History fluticasone propion-salmeterol 1 ea INHALATION BID 07/23/19 07/23/19 History [Advair Diskus] hydroxyzine HCl 10 mg PO Q8 PRN 07/23/19 07/23/19 History menthol [[place] Cough Drops] 0 mg PO UD PRN 07/23/19 07/23/19 History trazodone 50 mg PO HS PRN 07/23/19 07/23/19 History Family History mother depression and panic, paternal grandmother ETOH Substance Abuse History 1 pt vodka and 1.5 bottles wine per day for 2+ years, withdrawal in Feb 2019 but no DT. 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) Marital Status: Number Of Children: 1 daughter Beliefs That Will Affect Care: None History of Legal Problems: no Psychological Trauma History Comment: reports loss of pet Patient History Medical History Alcohol abuse (Acute) Anxiety (Chronic) Asthma (Chronic) Surgical History No pertinent past surgical history Family History Father Prediabetes Grandfather (Paternal) Diabetes Other No significant family history Social History Preferred Language: Kyrgyz Communication Ability: Effective 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: No Beliefs That Will Affect Care: None marital status details: Single parent Current Living Situation: Family Current Living Situation Comment: with daughter- 16 years old Feels Safe at Home: Yes Safety Concerns: Feels Safe At This Time Smoking Status: Former smoker Tobacco Type: cigarettes ; Age Quit Using Tobacco: 39 ; packs per day: 1 ; Do You Dip or Chew Tobacco: No ; Smoking End Date: smoked from [age] years old ; Number of Years Since Quit: 4 ; Second Hand Exposure: No ; Hx Alcohol Use: Yes Alcohol type: wine and hard liquor Alcohol type Comment: Takes 1.5 bottle of wine daily and occasional 0.5 pint of vodka Alcohol Intake Frequency: Daily Hx Substance Use: No Childhood Exposure to Second-Hand Smoke: No Physical Exam Psychiatric: Orientation: alert and oriented x 3 Apperance: appropriately groomed Eye Contact: + fair eye contact Motor Behavior: + tremor speech somewhat slowed but well articulated Affect: + depressed affect Mood: + depressed mood Thought Process: goal directed thought process Thought Content: reality based without delusions Suicidal Thoughts: denies suicidal thoughts Homicidal Thoughts: denies homicidal thoughts Hallucinations: no auditory hallucinations and no visual hallucinations Cognition: language grossly intact Estimated Intelligence: consistent with education level Insight: + limited insight Judgement: + limited judgement Vital Signs (Past 24 Hours): Last Vital Signs Temp 36.5 C 07/24/19 12:36 Pulse 98 H 07/24/19 12:36 Resp 20 07/24/19 12:36 BP 135/85 07/24/19 12:36 Pulse Ox 98 07/24/19 12:36 Review of Systems All systems reviewed & are unremarkable except as noted in HPI & below Results & Data (PSY) Medications Administered Acetaminophen (Tylenol) 325 mg PO Q6H PRN PRN Reason: Pain or Fever Stop: 08/23/19 01:53 Last Admin: 07/24/19 08:42 Dose: 325 mg Documented by: [id number] Fluticasone/Vilanterol (Breo Ellipta 100/25 Mcg Inh) 1 puffs INH QAM ARMANI Stop: 08/23/19 08:59 Last Admin: 07/24/19 08:57 Dose: 1 puffs Documented by: [id number] Gabapentin (Neurontin) 600 mg PO Q6H ARMANI Stop: 07/24/19 14:01 Last Admin: 07/24/19 08:42 Dose: 600 mg Documented by: [id number] Lorazepam (Ativan) 1 mg in 2 mls @ 2 mls/min IV UD PRN; Protocol PRN Reason: EtOH Withdrawl AWSS Score 6,7 Stop: 08/23/19 01:53 Last Admin: 07/24/19 12:37 Dose: 2 mls/min Documented by: [id number] Admin: 07/24/19 08:41 Dose: 2 mls/min Documented by: [id number] Sodium Chloride (Nss 1000ml) 1,000 mls @ 60 mls/hr IV .[id number] ONE Stop: 07/24/19 18:50 Last Admin: 07/24/19 02:33 Dose: 60 mls/hr Documented by: [id number] Ampicillin Sodium/Sulbactam Sodium 3,000 mg/ Sodium Chloride 108 mls @ 216 mls/hr IV Q6H [facility]; Protocol Stop: 07/31/19 06:59 Last Admin: 07/24/19 12:41 Dose: 216 mls/hr Documented by: [id number] Infusion: 07/24/19 09:33 Dose: 0 mls/hr Documented by: [id number] Admin: 07/24/19 08:55 Dose: 216 mls/hr Documented by: [id number] Multivitamins (Multivitamin Tab) 1 tab PO QAM [facility] Stop: 08/23/19 08:59 Last Admin: 07/24/19 08:43 Dose: 1 tab Documented by: [id number] Paroxetine HCl (Paxil) 20 mg PO DAILY [facility] Stop: 08/23/19 08:59 Last Admin: 07/24/19 08:42 Dose: 20 mg Documented by: [id number] Coding Level of Care Code 98115 U Intl Hosp Care Lvl 2 Diagnoses Alcohol withdrawal F10.230 Complication of substance-induced condition: uncomplicated
[2019-07-24] MEDS ORDERED: LORazepam 2 MG/4 ML VIAL IV STA ×2 (16:23→17:31)
[2019-07-24] MEDS ORDERED: ALBUT/IPRATROP 3MG/0.5MG NEB 3 ML VIAL NEB PRN (16:25)
--- NOTE | 2019-07-24 17:02 | Hospitalist Progress Note ---
Date of Service July 24, 2019 Assessment & Plan (1) Alcohol withdrawal: Shaky and anxious. Giving an additional 2mg IV Ativan now and ordered more PRN anxiety or shakiness above what the [facility] correction calls for on the protocol. Discussed this plan with the nurse who will be watching her closely. Cont gabapentin protocol. (2) Pneumonia: CAP poss aspiration pneumonia but this is less likely. Nevertheless she is improved on Unasyn. Will continue this for now. No issues per Speech evaluation. Blood cultures negative and afebrile at this time. (3) Elevated LFTs: Likely related to alcohol use. Trended down since yesterday. Will recheck in a couple of days. (4) Depression: Cont Paxil per home regimen. Pt states she wants to detox because she has a problem with alcohol. She reports trying AA recently but this didn't work for her. She has a small child to care for, and therefore, cannot afford to go into a 21 day program, but we did discuss this as an option moving forward should she need to consider this. (5) Asthma: chronic, stable. Cont Breo. Nebulized bronchodilators PRN. Clear lungs on auscultation today. (6) DVT prophylaxis: SCDs Full Dispo-to home when medically stable. Muna Pastor DO [facility] Hospitalist Subjective Reports 2 weeks of productive cough with blood-tinged and yellow sputum. Decided to detox off alcohol and came in because of excessive tremulousness. She is shaky at this time and feeling slightly anxious. She is a nonsmoker and has been able to tolerate food and drink today. +N/V coming in last night. Last drink was 3-4 days ago. Review of Systems Review of Systems: All systems reviewed & are unremarkable except as noted in Subjective Physical Exam Physical Exam: CONSTITUTIONAL: WNWD, vitals as above, generally anxious and shaky but is mentating appropriately and appears in control. EYES: normal conjunctivae, no scleral icterus ENT: MMM RESPIRATORY: clear to auscultation bilaterally, no crackles, rales or wheezes, normal respiratory effort CARDIOVASCULAR: tachy and regular rhythm, S1 and 2 heard without murmurs, gallops or rubs, no JVD, no peripheral edema GASTROINTESTINAL: soft, nontender, nondistended MUSCULOSKELETAL: strength 5/5 throughout, head is normocephalic and atraumatic SKIN: warm and dry, small well-healed scab on left knee NEUROLOGIC: CN 2-12 grossly intact,normal cognition, normal speech,+tremors. PSYCHIATRIC: alert cooperative and oriented to person, place and time. Results & Data ([facility]) Vital Signs (Past 12 Hours) Vital Signs Temp Pulse Pulse Resp BP Pulse Ox 07/24/19 12:36 36.5 C 98 H 20 135/85 98 07/24/19 11:24 98 H 07/24/19 08:44 105 H 07/24/19 07:42 36.8 C 87 18 111/71 91 07/24/19 05:13 36.9 C 88 20 103/66 92 Laboratory Results Short CBC 07/23/19 07/24/19 Range/Units 20:06 07:29 WBC 2.70 L 1.17 L (4.8-10.8) K/uL Hgb 14.6 13.6 (12.0-16.0) g/dL Hct 42.1 40.3 (37-47) % Plt Count 132 107 L (130-400) K/uL BMP 07/23/19 07/23/19 07/23/19 20:06 20:56 21:47 Sodium 137 Potassium Cancelled 4.2 Chloride 103 Carbon Dioxide 20 L BUN 14 Creatinine 0.79 Glucose 68 L Calcium 9.1 07/24/19 07:29 Sodium 139 Potassium 4.5 Chloride 107 Carbon Dioxide 20 L BUN 10 Creatinine 0.70 Glucose 120 H Calcium 9.0 Cardiac Enzymes 07/23/19 Range/Units 20:06 Troponin I < 0.015 (0-0.045) ng/ml Liver Function 07/23/19 07/23/19 07/23/19 Range/Units 20:06 20:56 21:47 Total Bilirubin 0.9 (0.2-1) mg/dl AST Cancelled 374 H (15-37) U/L ALT 290 H (12-78) U/L Alkaline Phosphatase 116 (45-117) U/L Albumin 3.8 (3.4-5.0) gm/dl 07/24/19 Range/Units 07:29 Total Bilirubin 0.8 (0.2-1) mg/dl AST 351 H (15-37) U/L ALT 263 H (12-78) U/L Alkaline Phosphatase 102 (45-117) U/L Albumin 3.6 (3.4-5.0) gm/dl Urine 07/23/19 Range/Units 21:30 Urine Color Dark Yellow Urine Appearance Clear (Clear) Urine pH 5.5 (4.5-7.5) Ur Specific [place] 1.032 H (1.000-1.030) Urine Protein 2+ H (Negative) Urine Glucose (UA) Negative (Negative) Diagnostic Findings CT angio chest PE protocol CTA: Heart is upper limits of normal in size. No pericardial effusion. No thoracic aortic aneurysm or dissection. Patency of the imaged great vessels. Pulmonary artery is opacified to level of the proximal subsegmental branches and demonstrates no filling defects to suggest pulmonary thromboembolic disease. CT CHEST: Unremarkable thyroid. No pathologically enlarged lymph nodes. No pneumothorax or pleural effusion. Mild bilateral bronchial wall thickening. Mild dependent subsegmental bibasilar atelectasis. Subpleural reticular and groundglass opacities of the nondependent lower lobes, lingula and right middle lobe. There are no suspicious pulmonary nodules or masses. There are a few scattered calcified granulomata. Central airways appear patent. Hepatomegaly with severe hepatic steatosis. Nonspecific mild distal esophageal wall thickening. Breast parenchyma and soft tissues are unremarkable. Bones appear intact. Healed remote fracture of the lateral left sixth rib. IMPRESSION: 1. No evidence of pulmonary thromboembolic disease. 2. No adenopathy or pleural effusion. 3. Mild subpleural reticular and groundglass opacities of the nondependent right middle lobe, lingula and basal lower lobes is suggestive of a nonspecific infectious or inflammatory pneumonitis. 4. Mild bronchial wall thickening. Medications Administered Current Inpatient Medications Acetaminophen (Tylenol) 325 mg PO Q6H PRN PRN Reason: Pain or Fever Stop: 08/23/19 01:53 Last Admin: 07/24/19 08:42 Dose: 325 mg Documented by: Albuterol (Duoneb) 3 ml NEB QIDR PRN PRN Reason: SOB/wheezing Stop: 08/23/19 18:59 Fluticasone/Vilanterol (Breo Ellipta 100/25 Mcg Inh) 1 puffs INH QAM [facility] Stop: 08/23/19 08:59 Last Admin: 07/24/19 08:57 Dose: 1 puffs Documented by: Folic Acid (Folvite) 1 mg PO QAM [facility] Stop: 08/24/19 08:59 Gabapentin (Neurontin) 600 mg PO Q8H [facility] Stop: 07/25/19 14:01 Gabapentin (Neurontin) 600 mg PO Q12H [facility] Stop: 07/26/19 12:01 Gabapentin (Neurontin) 600 mg PO Q24H [facility] Stop: 07/27/19 12:01 Lorazepam (Ativan) 1 mg in 2 mls @ 2 mls/min IV UD PRN; Protocol PRN Reason: EtOH Withdrawl AWSS Score 6,7 Stop: 08/23/19 01:53 Last Admin: 07/24/19 12:37 Dose: 2 mls/min Documented by: Lorazepam (Ativan) 2 mg in 4 mls @ 4 mls/min IV UD PRN; Protocol PRN Reason: EtOH Withdrawl AWSS Score 8,9 Stop: 08/23/19 01:53 Lorazepam (Ativan) 3 mg in 6 mls @ 4 mls/min IV ONCE PRN; Protocol PRN Reason: EtOH Withdrawl AWSS Score >=10 Stop: 08/23/19 01:53 Promethazine HCl 12.5 mg/ (Sodium Chloride) 50.5 mls @ 202 mls/hr IV Q6H PRN PRN Reason: Nausea And Vomiting Stop: 08/23/19 01:53 Ampicillin Sodium/Sulbactam Sodium 3,000 mg/ Sodium Chloride 108 mls @ 216 mls/hr IV Q6H [facility]; Protocol Stop: 07/31/19 06:59 Last Infusion: 07/24/19 14:04 Dose: Infused Documented by: Lorazepam (Ativan) 1 mg in 2 mls @ 2 mls/min IV Q2H PRN PRN Reason: anxiety/shakiness Stop: 08/23/19 16:32 Ipratropium [place] (Atrovent 0.02% 0.5mg/2.5ml) 0.5 mg INH Q4H PRN PRN Reason: Shortness Of Breath Or Wheezing Stop: 08/23/19 01:53 Levalbuterol HCl (Xopenex 1.25mg/0.5ml Neb) 1.25 mg INH Q4H PRN PRN Reason: Shortness Of Breath Or Wheezin Stop: 08/23/19 01:53 Miscellaneous Information (Ampicillin/Sulbactam Consult) 1 ea N/A UD PRN PRN Reason: Consult Stop: 08/23/19 07:05 Multivitamins (Multivitamin Tab) 1 tab PO QAM [facility] Stop: 08/23/19 08:59 Last Admin: 07/24/19 08:43 Dose: 1 tab Documented by: Paroxetine HCl (Paxil) 20 mg PO DAILY [facility] Stop: 08/23/19 08:59 Last Admin: 07/24/19 08:42 Dose: 20 mg Documented by: Thiamine HCl (Vitamin B-1) 100 mg PO QAM [facility] Stop: 08/24/19 08:59 Trazodone HCl (Desyrel) 50 mg PO HS PRN PRN Reason: Sleep Stop: 08/23/19 01:53 (1) Alcohol withdrawal Complication of substance-induced condition: uncomplicated Qualified Code(s): F10.230 - Alcohol dependence with withdrawal, uncomplicated
--- NOTE | 2019-07-24 21:35 | Electrocardiogram Report ---
Test Reason : Blood Pressure : / mmHG Vent. Rate : 088 BPM Atrial Rate : 088 BPM P-R Int : 142 ms QRS Dur : 084 ms QT Int : 342 ms P-R-T Axes : 039 028 029 degrees QTc Int : 413 ms Normal sinus rhythm Normal ECG When compared with ECG of 27-FEB-2019 15:00, No significant change was found Confirmed by Kevin Lambert ([id number]) on 07/24/2019 9:34:55 PM Referred By: REFERRED SELF Confirmed By:Kevin Lambert
[2019-07-24] MEDS: LORazepam 2 MG/4 ML VIAL IV PRN (23:04)
[2019-07-25] MEDS: AMPICILLIN/SULBACTAM SOD 3,000 MG in 0.9 % SODIUM CHLORIDE 100 ML IV SCH ×4 (01:14→19:06)
[2019-07-25] MEDS: LORazepam 1 MG/2 ML VIAL IV PRN (02:55)
[2019-07-25] MEDS: GABAPENTIN 600 MG TAB PO SCH (06:17)
[2019-07-25] MEDS: LORazepam 2 MG/4 ML VIAL IV PRN ×2 (06:24→08:20)
[2019-07-25 06:52] LABS: Basophils # (auto) 0.01 K/uL (0-0.2); Basophils % (auto) 0.5 %; Hematocrit (blood only) 38.4 % (37-47); Hemoglobin 12.9 g/dL (12.0-16.0); Lymphocytes # (auto) 0.52 K/uL (1.2-3.4); Lymphocytes % (auto) 23.9 %; Mean Corpuscular Hemoglobin 33.7 pg (25-34); Mean Corpuscular Hgb Conc 33.6 g/dL (32-36); Mean Corpuscular Volume 100.3 fL (80-100); Mean Platelet Volume 9.8 fL (7.4-10.4); Monocytes # (auto) 0.22 K/uL (0.11-0.59); Monocytes % (auto) 10.1 %; Neutrophils # (auto) 1.43 K/uL (1.4-6.5); Neutrophils % (auto) 65.5 %; Platelet Count 113 K/uL (130-400); RDW Coefficient of Variation 13.2 % (11.5-14.5); RDW Standard Deviation 48.3 fL (36.4-46.3); Red Blood Count 3.83 M/uL (4.2-5.4); White Blood Count 2.18 K/uL (4.8-10.8)
[2019-07-25 07:29] LABS: BUN Creatinine Ratio 15.9 (10-20); Calcium 9.7 mg/dl (8.5-10.1); Creatinine Clr Calc Pharmacy 97.6 ml/min; Est GFR (African American) 111.4; Est GFR (Non-African American) 96.1; Magnesium 1.8 mg/dl (1.8-2.4); Phosphorus 2.7 mg/dl (2.5-4.9); Potassium 3.7 mmol/L (3.5-5.1)
[2019-07-25] MEDS: MULTIVITAMIN TAB PO SCH (08:20)
[2019-07-25] MEDS: THIAMINE HCL 100 MG TAB PO SCH (08:20)
[2019-07-25] MEDS: FLUTICASONE/VILANTEROL 100/25MCG 14 PUFFS/INHALER INH SCH (08:20)
[2019-07-25] MEDS: FOLIC ACID 1 MG TAB PO SCH (08:20)
[2019-07-25] MEDS: PARoxetine HCl 20 MG TAB PO SCH (08:20)
[2019-07-25] MEDS: LORazepam 1 MG TAB PO SCH ×2 (12:05→19:06)
--- NOTE | 2019-07-25 14:47 | Hospitalist Progress Note ---
Date of Service July 25, 2019 Assessment & Plan (1) Alcohol withdrawal: Continues to improve. With excessive fatigue we will stop her gabapentin now. She is also feeling some relief with the Ativan but is not lasting long enough so we will add a p.o. version. Continue CIWA and close monitoring. (2) Pneumonia: Clinically improved overall. We will switch to Augmentin in a.m. (3) Neutropenia: Neutropenia has resolved with treatment of infection. Bone marrow suppression may also be playing a role here with excessive alcohol use, now stopped. (4) Elevated LFTs: Likely related to alcohol use. Trended down with time away from alcohol. Monitor in a.m. (5) Depression: Cont Paxil per home regimen. Pt states she wants to detox because she has a problem with alcohol. She reports trying AA recently but this didn't work for her. She has a small child to care for, and therefore, cannot afford to go into a 21 day program, but we did discuss this as an option moving forward should she need to consider this. (6) Asthma: chronic, stable. Cont Breo. Nebulized bronchodilators PRN. Clear lungs on auscultation today. (7) DVT prophylaxis: Lovenox Full Dispo-to home when medically stable. Muna Pastor DO [facility] Hospitalist Subjective Doing better today, she appears less tremulous and anxious. She still reports some lightheadedness and weakness with excessive fatigue. We decided together we would discontinue the gabapentin. She is currently tolerating p.o. she is afebrile and otherwise doing well. Breathing is at baseline. Review of Systems Review of Systems: All systems reviewed & are unremarkable except as noted in Subjective Physical Exam Physical Exam: CONSTITUTIONAL: WNWD, vitals as above, generally anxious and shaky but is mentating appropriately and thi sis improved since yesterday EYES: normal conjunctivae, no scleral icterus ENT: MMM RESPIRATORY: clear to auscultation bilaterally, no crackles, rales or wheezes, normal respiratory effort CARDIOVASCULAR: regular rate and regular rhythm, S1 and 2 heard without murmurs, gallops or rubs, no JVD, no peripheral edema GASTROINTESTINAL: soft, nontender, nondistended MUSCULOSKELETAL: strength 5/5 throughout, head is normocephalic and atraumatic SKIN: warm and dry, small well-healed scab on left knee NEUROLOGIC: CN 2-12 grossly intact,normal cognition, normal speech,+tremors. PSYCHIATRIC: alert cooperative and oriented to person, place and time. Results & Data ([facility]) Vital Signs (Past 12 Hours) Vital Signs Temp Pulse Resp BP BP Pulse Ox 07/25/19 10:53 36.3 C L 97 H 20 126/88 93 07/25/19 07:47 36.4 C L 86 18 128/85 94 07/25/19 06:17 36.7 C 120 H 20 131/85 93 07/25/19 04:26 36.4 C L 93 H 20 138/88 93 07/25/19 02:58 81 16 95 07/25/19 02:52 36.5 C 97 H 20 132/86 93 Laboratory Results Short CBC 07/25/19 Range/Units 06:16 WBC 2.18 L (4.8-10.8) K/uL Hgb 12.9 (12.0-16.0) g/dL Hct 38.4 (37-47) % Plt Count 113 L (130-400) K/uL BMP 07/25/19 06:16 Sodium 138 Potassium 3.7 D Chloride 104 Carbon Dioxide 26 BUN 12 Creatinine 0.76 Glucose 116 H Calcium 9.7 Medications Administered Current Inpatient Medications Acetaminophen (Tylenol) 325 mg PO Q6H PRN PRN Reason: Pain or Fever Stop: 08/23/19 01:53 Last Admin: 07/24/19 08:42 Dose: 325 mg Documented by: Albuterol (Duoneb) 3 ml NEB QIDR PRN PRN Reason: SOB/wheezing Stop: 08/23/19 18:59 Last Admin: 07/25/19 02:58 Dose: 3 ml Documented by: Fluticasone/Vilanterol (Breo Ellipta 100/25 Mcg Inh) [facility] Stop: 08/23/19 08:59 Last Admin: 07/25/19 08:20 Dose: 1 puffs Documented by: Folic Acid (Folvite) 1 mg PO QAM [facility] Stop: 08/24/19 08:59 Last Admin: 07/25/19 08:20 Dose: 1 mg Documented by: Lorazepam (Ativan) 1 mg in 2 mls @ 2 mls/min IV UD PRN; Protocol PRN Reason: EtOH Withdrawl AWSS Score 6,7 Stop: 08/23/19 01:53 Last Admin: 07/24/19 12:37 Dose: 2 mls/min Documented by: Lorazepam (Ativan) 2 mg in 4 mls @ 4 mls/min IV UD PRN; Protocol PRN Reason: EtOH Withdrawl AWSS Score 8,9 Stop: 08/23/19 01:53 Last Admin: 07/25/19 08:20 Dose: 4 mls/min Documented by: Lorazepam (Ativan) 3 mg in 6 mls @ 4 mls/min IV ONCE PRN; Protocol PRN Reason: EtOH Withdrawl AWSS Score >=10 Stop: 08/23/19 01:53 Promethazine HCl 12.5 mg/ (Sodium Chloride) 50.5 mls @ 202 mls/hr IV Q6H PRN PRN Reason: Nausea And Vomiting Stop: 08/23/19 01:53 Ampicillin Sodium/Sulbactam Sodium 3,000 mg/ Sodium Chloride 108 mls @ 216 mls/hr IV Q6H [facility]; Protocol Stop: 07/31/19 06:59 Last Admin: 07/25/19 13:50 Dose: 216 mls/hr Documented by: Lorazepam (Ativan) 1 mg in 2 mls @ 2 mls/min IV Q2H PRN PRN Reason: anxiety/shakiness Stop: 08/23/19 16:32 Last Admin: 07/25/19 02:55 Dose: 2 mls/min Documented by: Ipratropium [place] (Atrovent 0.02% 0.5mg/2.5ml) 0.5 mg INH Q4H PRN PRN Reason: Shortness Of Breath Or Wheezing Stop: 08/23/19 01:53 Levalbuterol HCl (Xopenex 1.25mg/0.5ml Neb) 1.25 mg INH Q4H PRN PRN Reason: Shortness Of Breath Or Wheezin Stop: 08/23/19 01:53 Lorazepam (Ativan) 1 mg PO Q8H [facility] Stop: 07/27/19 03:31 Last Admin: 07/25/19 12:05 Dose: 1 mg Documented by: Miscellaneous Information (Ampicillin/Sulbactam Consult) 1 ea N/A UD PRN PRN Reason: Consult Stop: 08/23/19 07:05 Multivitamins (Multivitamin Tab) 1 tab PO QAM [facility] Stop: 08/23/19 08:59 Last Admin: 07/25/19 08:20 Dose: 1 tab Documented by: Paroxetine HCl (Paxil) 20 mg PO DAILY [facility] Stop: 08/23/19 08:59 Last Admin: 07/25/19 08:20 Dose: 20 mg Documented by: Thiamine HCl (Vitamin B-1) 100 mg PO QAM [facility] Stop: 08/24/19 08:59 Last Admin: 07/25/19 08:20 Dose: 100 mg Documented by: Trazodone HCl (Desyrel) 50 mg PO HS PRN PRN Reason: Sleep Stop: 08/23/19 01:53 (1) Alcohol withdrawal Complication of substance-induced condition: uncomplicated Qualified Code(s): F10.230 - Alcohol dependence with withdrawal, uncomplicated
[2019-07-26] MEDS ORDERED: GABAPENTIN 600 MG TAB PO SCH
[2019-07-26] MEDS: LORazepam 1 MG TAB PO SCH ×2 (03:06→12:23)
[2019-07-26 07:00] LABS: Hematocrit (blood only) 38.1 % (37-47); Hemoglobin 12.9 g/dL (12.0-16.0); Mean Corpuscular Hemoglobin 33.8 pg (25-34); Mean Corpuscular Hgb Conc 33.9 g/dL (32-36); Mean Corpuscular Volume 99.7 fL (80-100); Platelet Count 105 K/uL (130-400); Red Blood Count 3.82 M/uL (4.2-5.4)
[2019-07-26 07:33] LABS: Albumin Level 3.1 gm/dl (3.4-5.0); BUN Creatinine Ratio 12.7 (10-20); Bilirubin Direct 0.4 mg/dl (0-0.2); Calcium 9.6 mg/dl (8.5-10.1); Creatinine Clr Calc Pharmacy 96.3 ml/min; Est GFR (African American) 109.6; Est GFR (Non-African American) 94.6; Platelet Estimate Decreased (Normal); Potassium 3.7 mmol/L (3.5-5.1)
[2019-07-26 07:36] LABS: Bilirubin,Total 0.9 mg/dl (0.2-1); Total Protein 6.4 gm/dl (6.4-8.2)
[2019-07-26] MEDS ORDERED: AMOXICILLIN/CLAVULANATE 875 MG TAB PO SCH (08:00)
[2019-07-26] MEDS: FLUTICASONE/VILANTEROL 100/25MCG 14 PUFFS/INHALER INH SCH (08:12)
[2019-07-26] MEDS: MULTIVITAMIN TAB PO SCH (08:16)
[2019-07-26] MEDS: THIAMINE HCL 100 MG TAB PO SCH (08:16)
[2019-07-26] MEDS: PARoxetine HCl 20 MG TAB PO SCH (08:16)
[2019-07-26] MEDS: FOLIC ACID 1 MG TAB PO SCH (08:16)
[2019-07-26] MEDS: ENOXAPARIN INJ 40 MG/0.4 ML SYR SQ SCH (09:28)
[2019-07-26] MEDS: levoFLOXacin 750 MG TAB PO SCH (14:37)
--- NOTE | 2019-07-26 16:58 | Hospitalist Progress Note ---
Date of Service July 26, 2019 Assessment & Plan (1) Vomiting: Thought 2/2 Augmentin. But with elevated LFTs, h/o ETOHism and reports of earlier vomiting for >2 weeks will consult GI to take a look at her. Cont supportive care. Gave phenergan to avoid QT abnormalities with Levaquin also on board. (2) Alcohol withdrawal: Ativan PRN. She is through the worst of this and remains somewhat emotional. (3) Pneumonia: No issues with breathing or coughing. +vomiting and nausea after starting Augmentin this am. Will switch to Levaquin. (4) Neutropenia: Neutropenia has resolved with treatment of infection. Bone marrow suppression may also be playing a role here with excessive alcohol use, now stopped. (5) Elevated LFTs: Likely related to alcohol use. Trended down with time away from alcohol. Monitor in a.m. (6) Depression: Cont Paxil per home regimen. Pt states she wants to detox because she has a problem with alcohol. She reports trying AA recently but this didn't work for her. She has a small child to care for, and therefore, cannot afford to go into a 21 day program, but we did discuss this as an option moving forward should she need to consider this. (7) Asthma: chronic, stable. Cont Breo. Nebulized bronchodilators PRN. Clear lungs on auscultation today. (8) DVT prophylaxis: Lovenox Full Dispo-to home when medically stable. Muna Pastor DO [facility] Hospitalist Subjective Somewhat tearful/emotional. Two episodes of vomiting this am. Initially thought 2/2 Augmentin, which was switched to Levaquin. However, patient then continued to have nausea and mentioned two weeks of nausea and vomiting in recent weeks. +persistent bilateral leg weakness that is subjective when she stands. Lightheadedness with standing. Orthostatics are negative. She is not feeling much better today. +fatigue from the medication. Review of Systems Review of Systems: All systems reviewed & are unremarkable except as noted in Subjective Physical Exam Physical Exam: CONSTITUTIONAL: WNWD, vitals as above, tearful, no acute distress EYES: normal conjunctivae, no scleral icterus ENT: MMM RESPIRATORY: clear to auscultation bilaterally, no crackles, rales or wheezes, normal respiratory effort CARDIOVASCULAR: regular rate and regular rhythm, S1 and 2 heard without murmurs, gallops or rubs, no JVD, no peripheral edema GASTROINTESTINAL: soft, nontender, nondistended MUSCULOSKELETAL: strength 5/5 throughout, head is normocephalic and atraumatic SKIN: warm and dry, small well-healed scab on left knee NEUROLOGIC: CN 2-12 grossly intact,normal cognition, normal speech,+tremors. PSYCHIATRIC: alert cooperative and oriented to person, place and time. Results & Data ([facility]) Vital Signs (Past 12 Hours) Vital Signs Temp Pulse Resp BP BP Pulse Ox 07/26/19 15:50 37.0 C 90 18 134/91 95 07/26/19 11:19 36.7 C 94 H 20 144/93 H 95 07/26/19 07:47 36.7 C 73 18 132/88 96 Laboratory Results Short CBC 07/26/19 Range/Units 06:27 WBC 2.20 L (4.8-10.8) K/uL Hgb 12.9 (12.0-16.0) g/dL Hct 38.1 (37-47) % Plt Count 105 L (130-400) K/uL BMP 07/26/19 06:27 Sodium 139 Potassium 3.7 Chloride 105 Carbon Dioxide 26 BUN 10 Creatinine 0.77 Glucose 99 Calcium 9.6 Liver Function 07/26/19 Range/Units 06:27 Total Bilirubin 0.9 (0.2-1) mg/dl Direct Bilirubin 0.4 H (0-0.2) mg/dl AST 280 H (15-37) U/L ALT 284 H (12-78) U/L Alkaline Phosphatase 93 (45-117) U/L Albumin 3.1 L (3.4-5.0) gm/dl Medications Administered Current Inpatient Medications Acetaminophen (Tylenol) 325 mg PO Q6H PRN PRN Reason: Pain or Fever Stop: 08/23/19 01:53 Last Admin: 07/24/19 08:42 Dose: 325 mg Documented by: Enoxaparin Sodium ([facility]ovenox) [facility] Stop: 08/25/19 08:59 Last Admin: 07/26/19 09:28 Dose: Not Given Documented by: Fluticasone/Vilanterol (Breo Ellipta 100/25 Mcg Inh) 1 puffs [facility] Stop: 08/23/19 08:59 Last Admin: 07/26/19 08:12 Dose: 1 puffs Documented by: Folic Acid (Folvite) 1 mg PO [facility] Stop: 08/24/19 08:59 Last Admin: 07/26/19 08:16 Dose: 1 mg Documented by: Promethazine HCl 12.5 mg/ (Sodium Chloride) 50.5 mls @ 202 mls/hr IV Q6H PRN PRN Reason: Nausea And Vomiting Stop: 08/23/19 01:53 Ipratropium [place] (Atrovent 0.02% 0.5mg/2.5ml) 0.5 mg INH Q4H PRN PRN Reason: Shortness Of Breath Or Wheezing Stop: 08/23/19 01:53 Levalbuterol HCl (Xopenex 1.25mg/0.5ml Neb) 1.25 mg INH Q4H PRN PRN Reason: Shortness Of Breath Or Wheezin Stop: 08/23/19 01:53 Levofloxacin (Levaquin) 750 mg PO DAILY@1100 [facility]; Protocol Stop: 08/02/19 13:44 Last Admin: 07/26/19 14:37 Dose: 750 mg Documented by: Multivitamins (Multivitamin Tab) 1 tab PO [facility] Stop: 08/23/19 08:59 Last Admin: 07/26/19 08:16 Dose: 1 tab Documented by: Paroxetine HCl (Paxil) 20 mg PO DAILY [facility] Stop: 08/23/19 08:59 Last Admin: 07/26/19 08:16 Dose: 20 mg Documented by: Thiamine HCl (Vitamin B-1) 100 mg PO [facility] Stop: 08/24/19 08:59 Last Admin: 07/26/19 08:16 Dose: 100 mg Documented by: Trazodone HCl (Desyrel) 50 mg PO HS PRN PRN Reason: Sleep Stop: 08/23/19 01:53 (1) Alcohol withdrawal Complication of substance-induced condition: uncomplicated Qualified Code(s): F10.230 - Alcohol dependence with withdrawal, uncomplicated
[2019-07-26] MEDS ORDERED: LORazepam 0.5 MG/1 ML VIAL IV PRN (18:01)
[2019-07-26] MEDS ORDERED: PROMETHAZINE HCL 12.5 MG in SODIUM CHLORIDE 0.9% 50 ML IV PRN (18:03)
[2019-07-26] MEDS ORDERED: LORazepam 0.5 MG TAB PO PRN (18:03)
[2019-07-26] MEDS ORDERED: LORazepam 0.5 MG TAB ONE (18:15)
[2019-07-26] MEDS ORDERED: SODIUM CHLORIDE 0.9% 500 ML IV SCH (19:00)
[2019-07-26] MEDS ORDERED: LORazepam 1 MG/2 ML VIAL IV PRN ×2 (19:46→19:59)
--- NOTE | 2019-07-26 19:53 | Communication Note ---
Date of Service: July 26, 2019
[2019-07-26] MEDS ORDERED: LORazepam 1 MG/2 ML VIAL IV ONE (20:00)
[2019-07-26] MEDS ORDERED: LORazepam 1 MG TAB PO PRN (20:14)
[2019-07-27] MEDS: TRAZODONE HCL 50 MG TAB PO PRN ×2 (00:58→21:30)
[2019-07-27 06:25] LABS: Basophils # (auto) 0.02 K/uL (0-0.2); Basophils % (auto) 0.8 %; Eosinophils # (auto) 0.04 K/uL (0-0.5); Eosinophils % (auto) 1.7 %; Hematocrit (blood only) 39.3 % (37-47); Hemoglobin 13.3 g/dL (12.0-16.0); Immature Granulocytes # (auto) 0.01 K/uL (0.00-0.02); Immature Granulocytes % (auto) 0.4 %; Lymphocytes # (auto) 0.74 K/uL (1.2-3.4); Mean Corpuscular Hemoglobin 33.3 pg (25-34); Mean Corpuscular Hgb Conc 33.8 g/dL (32-36); Mean Corpuscular Volume 98.5 fL (80-100); Mean Platelet Volume 9.7 fL (7.4-10.4); Monocytes # (auto) 0.28 K/uL (0.11-0.59); Monocytes % (auto) 11.7 %; Neutrophils % (auto) 54.4 %; Platelet Count 116 K/uL (130-400); RDW Coefficient of Variation 12.9 % (11.5-14.5); RDW Standard Deviation 46.6 fL (36.4-46.3); Red Blood Count 3.99 M/uL (4.2-5.4); White Blood Count 2.39 K/uL (4.8-10.8)
[2019-07-27 06:59] LABS: Albumin Level 3.2 gm/dl (3.4-5.0); BUN Creatinine Ratio 11.1 (10-20); Calcium 9.8 mg/dl (8.5-10.1); Creatinine Clr Calc Pharmacy 92.2 ml/min; Est GFR (African American) 106.3; Est GFR (Non-African American) 91.7; Potassium 3.6 mmol/L (3.5-5.1)
[2019-07-27 07:02] LABS: Albumin Globulin Ratio 0.9 (0.9-2); Bilirubin,Total 0.7 mg/dl (0.2-1); Globulin 3.5 gm/dl (2.5-4.0); Total Protein 6.7 gm/dl (6.4-8.2)
[2019-07-27] MEDS: MULTIVITAMIN TAB PO SCH (07:57)
[2019-07-27] MEDS: FOLIC ACID 1 MG TAB PO SCH (07:57)
[2019-07-27] MEDS: THIAMINE HCL 100 MG TAB PO SCH (07:57)
[2019-07-27] MEDS: PARoxetine HCl 20 MG TAB PO SCH (07:57)
[2019-07-27] MEDS: ENOXAPARIN INJ 40 MG/0.4 ML SYR SQ SCH (07:58)
[2019-07-27] MEDS: FLUTICASONE/VILANTEROL 100/25MCG 14 PUFFS/INHALER INH SCH (07:58)
--- NOTE | 2019-07-27 08:20 | Gastrointestinal Consultation ---
Date of Consultation July 27, 2019 Assessment & Plan (1) Vomiting: We arranged an outpatient EGD at [facility] for , 07/29/2019 (though postponed by anesthesia as they require her to complete antibiotics prior to EGD - so rescheduled for later in Jul). Her mother will provide tra nsportation. She is aware of the prep nothing to eat or drink after midnight. We also arranged an outpatient office visit on 08/06/2019 to go over EGD results and begin to discuss alcoholic liver disease. Will hold on started PPIs. Alcohol is very irritating to the esophagus and stomach. Likely her symptoms will improve with alcohol abstinence. Present on Admission?: Yes (2) Elevated LFTs: She tells me that she will be able to stop drinking without a formal rehab program. She will be going home. She does seem motivated to stop drinking alcohol. We talked briefly about the damage that alcohol causes on the liver. At her recheck appointment on 08/06/2019 will recheck LFTs and talk about imaging the liver to look for fibrosis and cirrhosis. Present on Admission?: Yes Supervising Physician Co-Signing Physician Notes I have personally seen and examined the patient with URVASHI Gutierrez. Her note reflects my exam and findings. I agree with her impression and plan. CT scan reviewed. I do not think that her Crohn's needs steroids at this point. Once her pneumonia is treated than she needs to start her Humira as prescribed by Dr. Mesa. Angelo Rogers M.D. History of Present Illness Reason for Consultation: intermittent vomiting, +Etoh use, elev LFTs Requesting Physician: Dr. Pastor Attending Physician: Muna Pastor, DO History of Present Illness Ms. Marcus Avelar is a 43 yr old female pt of September ADRIANNE Joyner/Dr. Whatley with a hx of asthma/mild COPD, prior smoker, anxiety adn increased alcohol intake. She was brought to the ED 07/23/19 for cough and is being treated for aspiration pneumonia and alcohol withdraw (most recent drink 07/21/19). GI is consulted for elevated LFTs and increased alcohol intake. On arrival, transaminases were elevated: AST 374->147, ALT 290->225. Direct bili was mildly elevated at 0.4, total bili and Alk Phos have been normal. She tells me, that for the last month, she has had a lot of nausea and vomiting. This can occur moments after she is eaten regurgitating undigested food or can happen hours later and consist of just liquid. She denies any pain in the chest, no pain on swallowing, no epigastric pain, and no typical symptoms of reflux. She has never undergone EGD. She is sitting up in her bed awake alert oriented able to ambulate to the bathroom without assistance. Her mother is at the bedside and seems very supportive. She admits to drinking about 1 pint of vodka per day, for several years. Allergies Allergy/AdvReac Type Severity Reaction Status Date / Time theophylline AdvReac Unknown VERTIGO Verified 07/23/19 20:37 Home Medications Home Medications Medication Instructions Recorded Confirmed Type fluticasone propion-salmeterol 1 inh INHALATION QAM 02/27/19 07/23/19 History [Advair Diskus] paroxetine HCl 20 mg PO DAILY 02/27/19 07/23/19 History albuterol sulfate [Ventolin HFA] 2 puff INHALATION Q6H PRN 07/23/19 07/23/19 History fluticasone propion-salmeterol 1 ea INHALATION BID 07/23/19 07/23/19 History [Advair Diskus] hydroxyzine HCl 10 mg PO Q8 PRN 07/23/19 07/23/19 History menthol [[place] Cough Drops] 0 mg PO UD PRN 07/23/19 07/23/19 History trazodone 50 mg PO HS PRN 07/23/19 07/23/19 History Patient History Medical History Alcohol abuse (Acute) Anxiety (Chronic) Asthma (Chronic) Surgical History No pertinent past surgical history Family History Father Prediabetes Grandfather (Paternal) Diabetes Other No significant family history Social History Preferred Language: French Communication Ability: Effective 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 Beliefs That Will Affect Care: None marital status details: Single parent Current Living Situation: Family Current Living Situation Comment: with daughter- 16 years old Feels Safe at Home: Yes Safety Concerns: Feels Safe At This Time Smoking Status: Former smoker Tobacco Type: cigarettes ; Age Quit Using Tobacco: 39 ; packs per day: 1 ; Do You Dip or Chew Tobacco: No ; Smoking End Date: smoked from [age] years old ; Number of Years Since Quit: 4 ; Second Hand Exposure: No ; Hx Alcohol Use: Yes Alcohol type: wine and hard liquor Alcohol type Comment: Takes 1.5 bottle of wine daily and occasional 0.5 pint of vodka Alcohol Intake Frequency: Daily Hx Substance Use: No Childhood Exposure to Second-Hand Smoke: No Review of Systems Review of Systems: ROS: Gen: Denies weakness, fevers, weight loss Eyes: No eye redness, or pain, no recent vision changes Resp: No SOB, no cough Cardio: No palpitations/irregular beats, no chest pain GI: See HPI : Denies pain on urination Skin: No jaundice, itching or new rashes Physical Exam Constitutional: WD/WN, vitals as above Eyes: PERRL, conjunctivae normal, anicteric sclerae ENMT: external ear and nose normal, oropharynx normal Neck: trachea midline, no thyromegaly Respiratory: normal respiratory effort, lungs clear to auscultation Cardiovascular: RRR, no murmur, no edema Gastrointestinal (Abdomen): normal bowel sounds, soft, nontender, no hepatosplenomegaly Skin: no rashes, warm and dry Neurologic: PERRL, EOMI, accommodation nl, no face palsy, no dysarthria Psychiatric: A+Ox3, euthymic affect Lymphatic: no cervical or axillary lymphadenopathy Results & Data Vital Signs (Past 12 Hours) Vital Signs Temp Pulse Resp BP BP Pulse Ox 07/27/19 07:58 36.7 C 61 16 103/67 96 07/26/19 23:39 36.4 C L 86 20 135/91 96 07/26/19 21:46 36.6 C 82 16 134/95 96
[2019-07-27] MEDS ORDERED: LOPERAMIDE HCL 2 MG CAP PO STA (11:19)
[2019-07-27] MEDS ORDERED: GABAPENTIN 600 MG TAB PO SCH (12:00)
[2019-07-27] MEDS: levoFLOXacin 750 MG TAB PO SCH (12:55)
--- NOTE | 2019-07-27 18:58 | Hospitalist Progress Note ---
Date of Service July 27, 2019 Assessment & Plan (1) Vomiting: Thought 2/2 Augmentin but may just be 2/2 alcohol. Appreciate GI input who will see her in the clinic and consider outpatient EGD. She is eating again today and feeling better. (2) Alcohol withdrawal: Ativan PRN. Resolved. (3) Pneumonia: No issues with breathing or coughing. +vomiting and nausea after starting Augmentin this am. Switched to Levaquin to complete the course. (4) Neutropenia: Neutropenia has resolved with treatment of infection. Bone marrow suppression may also be playing a role here with excessive alcohol use, now stopped. (5) Elevated LFTs: Likely related to alcohol use. Trended down with time away from alcohol. Monitor as outpatient (6) Depression: Cont Paxil per home regimen. Pt states she wants to detox and is here because she has a problem with alcohol and her symptoms became too overwhelming at home. She reports trying AA recently but this didn't work for her. She has a small child to care for, and therefore, cannot afford to go into a 21 day program, but we did discuss this as an option moving forward should she need to consider this. (7) Asthma: chronic, stable. Cont Breo. Nebulized bronchodilators PRN. Clear lungs on auscultation today. (8) DVT prophylaxis: Lovenox Full Dispo-to home in am. Muna Pastor DO [facility] Hospitalist Subjective Doing much better today. Eating and no further GI upset. Less tearful. OK with discharge in am. Ambulatory. Vitals are stable. Less fatigued Review of Systems Review of Systems: All systems reviewed & are unremarkable except as noted in Subjective Physical Exam Physical Exam: CONSTITUTIONAL: WNWD, vitals as above, no acute distress EYES: normal conjunctivae, no scleral icterus ENT: MMM RESPIRATORY: clear to auscultation bilaterally, no crackles, rales or wheezes, normal respiratory effort CARDIOVASCULAR: regular rate and regular rhythm, S1 and 2 heard without murmurs, gallops or rubs, no JVD, no peripheral edema GASTROINTESTINAL: soft, nontender, nondistended MUSCULOSKELETAL: strength 5/5 throughout, head is normocephalic and atraumatic SKIN: warm and dry, small well-healed scab on left knee NEUROLOGIC: CN 2-12 grossly intact, normal cognition, normal speech. PSYCHIATRIC: alert cooperative and oriented to person, place and time. Results & Data ([facility]) Vital Signs (Past 12 Hours) Vital Signs Temp Pulse Resp BP BP Pulse Ox 07/27/19 15:50 36.5 C 99 H 18 135/86 96 07/27/19 11:22 36.6 C 83 16 129/89 96 07/27/19 07:58 36.7 C 61 16 103/67 96 Laboratory Results Short CBC 07/27/19 Range/Units 05:57 WBC 2.39 L (4.8-10.8) K/uL Hgb 13.3 (12.0-16.0) g/dL Hct 39.3 (37-47) % Plt Count 116 L (130-400) K/uL BMP 07/27/19 05:57 Sodium 139 Potassium 3.6 Chloride 107 Carbon Dioxide 29 BUN 9 Creatinine 0.79 Glucose 92 Calcium 9.8 Liver Function 07/27/19 Range/Units 05:57 Total Bilirubin 0.7 (0.2-1) mg/dl AST 147 H (15-37) U/L ALT 225 H (12-78) U/L Alkaline Phosphatase 92 (45-117) U/L Albumin 3.2 L (3.4-5.0) gm/dl Medications Administered Current Inpatient Medications Acetaminophen (Tylenol) 325 mg PO Q6H PRN PRN Reason: Pain or Fever Stop: 08/23/19 01:53 Last Admin: 07/24/19 08:42 Dose: 325 mg Documented by: Enoxaparin Sodium (Lovenox) 40 mg SQ [facility] Stop: 08/25/19 08:59 Last Admin: 07/27/19 07:58 Dose: 40 mg Documented by: Fluticasone/Vilanterol (Breo Ellipta 100/25 Mcg Inh) 1 puffs INH [facility] Stop: 08/23/19 08:59 Last Admin: 07/27/19 07:58 Dose: 1 puffs Documented by: Folic Acid (Folvite) 1 mg PO [facility] Stop: 08/24/19 08:59 Last Admin: 07/27/19 07:57 Dose: 1 mg Documented by: Promethazine HCl 12.5 mg/ (Sodium Chloride) 50.5 mls @ 202 mls/hr IV Q6H PRN PRN Reason: Nausea And Vomiting Stop: 08/25/19 18:02 Last Infusion: 07/26/19 23:45 Dose: Infused Documented by: Lorazepam (Ativan) 1 mg in 2 mls @ 2 mls/min IV Q2H PRN PRN Reason: Anxiety Stop: 08/25/19 19:45 Ipratropium [place] (Atrovent 0.02% 0.5mg/2.5ml) 0.5 mg INH Q4H PRN PRN Reason: Shortness Of Breath Or Wheezing Stop: 08/23/19 01:53 Levalbuterol HCl (Xopenex 1.25mg/0.5ml Neb) 1.25 mg INH Q4H PRN PRN Reason: Shortness Of Breath Or Wheezin Stop: 08/23/19 01:53 Levofloxacin (Levaquin) 750 mg PO DAILY@1100 ARMANI; Protocol Stop: 08/02/19 13:44 Last Admin: 07/27/19 12:55 Dose: 750 mg Documented by: Lorazepam (Ativan) 1 mg PO Q6H PRN PRN Reason: Anxiety Stop: 08/25/19 18:02 Multivitamins (Multivitamin Tab) 1 tab [facility] Stop: 08/23/19 08:59 Last Admin: 07/27/19 07:57 Dose: 1 tab Documented by: Paroxetine HCl (Paxil) 20 mg PO DAILY [facility] Stop: 08/23/19 08:59 Last Admin: 07/27/19 07:57 Dose: 20 mg Documented by: Thiamine HCl (Vitamin B-1) 100 mg PO QAM [facility] Stop: 08/24/19 08:59 Last Admin: 07/27/19 07:57 Dose: 100 mg Documented by: Trazodone HCl (Desyrel) 50 mg PO HS PRN PRN Reason: Sleep Stop: 08/23/19 01:53 Last Admin: 07/27/19 00:58 Dose: 50 mg Documented by: (1) Alcohol withdrawal Complication of substance-induced condition: uncomplicated Qualified Code(s): F10.230 - Alcohol dependence with withdrawal, uncomplicated
[2019-07-28] MEDS: FLUTICASONE/VILANTEROL 100/25MCG 14 PUFFS/INHALER INH SCH (09:29)
[2019-07-28] MEDS: MULTIVITAMIN TAB PO SCH (09:30)
[2019-07-28] MEDS: ENOXAPARIN INJ 40 MG/0.4 ML SYR SQ SCH (09:30)
[2019-07-28] MEDS: PARoxetine HCl 20 MG TAB PO SCH (09:30)
[2019-07-28] MEDS: THIAMINE HCL 100 MG TAB PO SCH (09:30)
[2019-07-28] MEDS: FOLIC ACID 1 MG TAB PO SCH (09:30)
--- NOTE | 2019-07-28 11:46 | Hospitalist Progress Note ---
Date of Service July 28, 2019 Assessment & Plan (1) Alcohol withdrawal: hx of Alcohol abuse , drinks 1 pint of vodka daily has been drinking heavily past 2.5 yrs to deal with her anxiety disorder admitted with alcohol withdrawal as she tried to cut down drinking treated with alcohol withdrawal protocol per [facility] pt's vitals been stable , no anxiety or mood disorder at present no active s/s of withdrawal for last 48 hrs extensive discussion at bedside , regarding importance of Alcohol abstinence pt verbalized understanding willing to seek help as out patient Present on Admission?: Yes (2) Pneumonia: possible concern for aspiration as presented with ETOH withdrawal symptom CT chest : Mild subpleural reticular and groundglass opacities of the nondependent right middle lobe, lingula and basal lower lobes is suggestive of a nonspecific infectious or inflammatory pneumonitis. pt was treated with IV Unasyn on day of admission 07/24 changed to PO Augmentin -D/bernardo due to GI symptoms of N/V later changed to PO Levaquin ABx Day # 5 today no cough , no fever or chills pt will not need any more antibiotic to continue on discharge (3) Neutropenia: possible due to ETOH abuse with underlying Alcoholic liver disease extensive counselling provided for ETOH abstinence (4) Elevated LFTs: due to alcoholic hepatitis vs Alcoholic liver disease appreciate input from GI scheduled for GI clinic follow up on 08/06/19 will need EGD to assess esophageal varices for chronic alcohol abuse repeat LFT in 1 week GI recommends complete abstinence form Alcohol , pt is updated regarding consequences of ongoing drinking - irreversible /end stage liver failure in near future (5) Depression: with underlying anxiety disorder : appreciate input from Psychiatry : recommends adjusting dose of Paxil , increase dose form 20 mg to 30 mg daily given addiction Hx no Sedative /hypnotics will be prescribes cont Vistaril as needed for anxiety symptoms out pt Psychiatry and Psycho therapy appointment scheduled already (6) Asthma: stable no SOB , Cough or wheeze cont out pt inhalers (7) DVT prophylaxis: Lovenox CODE status : Full code DISPOSITION : stable to be discharged home today Subjective no complain of nausea /vomiting , no abdominal pain finished her breakfast no cough or SOB no fever or chills no further episode of loose bowel movement since yesterday eager to be discharged home today Review of Systems 2 Gastrointestinal: no abdominal pain, no nausea, no vomiting and no diarrhea /loose stools Psychiatric: no anxiety Physical Exam Constitutional: WD/WN, vitals as above Eyes: PERRL, conjunctivae normal, anicteric sclerae ENMT: external ear and nose normal, oropharynx normal Neck: trachea midline, no thyromegaly Respiratory: normal respiratory effort, lungs clear to auscultation Cardiovascular: RRR, no murmur, no edema Gastrointestinal (Abdomen): normal bowel sounds, soft, nontender, no hepatosplenomegaly Musculoskeletal: no cyanosis or clubbing, extremities motor strength 5/5 Skin: no rashes, warm and dry Neurologic: PERRL, EOMI, accommodation nl, no face palsy, no dysarthria Psychiatric: A+Ox3, euthymic affect Results & Data ([facility]) Vital Signs (Past 12 Hours) Vital Signs Temp Pulse Resp BP BP Pulse Ox 07/28/19 11:16 36.8 C 81 16 129/87 97 07/28/19 11:04 36.5 C 61 16 114/74 135/88 98 07/28/19 07:18 36.5 C 61 16 114/74 98 07/28/19 04:21 135/88 (1) Alcohol withdrawal Complication of substance-induced condition: uncomplicated Qualified Code(s): F10.230 - Alcohol dependence with withdrawal, uncomplicated (2) Depression Depression Type: unspecified Qualified Code(s): F32.9 - Major depressive disorder, single episode, unspecified (3) Neutropenia Neutropenia type: unspecified Qualified Code(s): D70.9 - Neutropenia, unspecified (4) Pneumonia Pneumonia type: aspiration pneumonia Laterality: unspecified laterality Lung location: unspecified part of lung Aspiration pneumonia type: unspecified Qualified Code(s): J69.0 - Pneumonitis due to inhalation of food and vomit (5) Asthma Asthma severity: unspecified severity Asthma persistence: unspecified Asthma complication type: unspecified Qualified Code(s): J45.909 - Unspecified asthma, uncomplicated
--- NOTE | 2019-07-28 12:13 | Discharge Summary ---
Date of Service July 28, 2019 Admission HPI Per Admitting Provider History obtained from patient and records. Medical history significant for asthma/mild COPD as per records, alcohol abuse, past tobacco abuse, anxiety/mood disorder. Recent confinement February 2019 for alcohol withdrawal. Patient was sober after discharge up until last month when she started drinking again due to home/work stressors. Depression not well denies suicidality. Patient has been sick the last week with sinus congestion/drainage, dry heaving, junky cough symptoms. Possible sick contacts. Coughing with meals/water intake if not careful. No chest pain, S OB. Symptoms not typical of asthma attack as per patient. Patient seen at PCPs office last week. Supportive management recommended. Worsening cough symptoms later productive of bloody sputum at home associated with shortness of breath. Patient somewhat jittery at home. Last drink was 2 days ago. No history of alcohol withdrawal seizures/intubation for alcohol withdrawal. Patient brought to the ER by her family. 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 Principal Diagnosis ETOH WITHDRAWAL /ALCOHOLIC LIVER DISEASE Discharge Exam Constitutional WD/WN, vitals as above Eyes PERRL, conjunctivae normal, anicteric sclerae ENMT external ear and nose normal, oropharynx normal Neck trachea midline, no thyromegaly Respiratory normal respiratory effort, lungs clear to auscultation Cardiovascular RRR, no murmur, no edema Gastrointestinal (Abdomen) normal bowel sounds, soft, nontender, no hepatosplenomegaly Musculoskeletal no cyanosis or clubbing, extremities motor strength 5/5 Skin no rashes, warm and dry Neurologic PERRL, EOMI, accommodation nl, no face palsy, no dysarthria Psychiatric A+Ox3, euthymic affect Discharge Data Allergies Allergy/AdvReac Type Severity Reaction Status Date / Time theophylline AdvReac Unknown VERTIGO Verified 07/23/19 20:37 Consultations 07/23/19 23:17 ED Decision to Admit Stat 07/24/19 01:54 Consult Psychiatry Routine 07/26/19 18:01 Consult Gastroenterology Routine Ordered Studies 07/23/19 21:53 CT angio chest PE protocol Stat Hospital Course (1) Alcohol withdrawal: hx of Alcohol abuse , drinks 1 pint of vodka daily has been drinking heavily past 2.5 yrs to deal with her anxiety disorder admitted with alcohol withdrawal as she tried to cut down drinking treated with alcohol withdrawal protocol per [facility] pt's vitals been stable , no anxiety or mood disorder at present no active s/s of withdrawal for last 48 hrs extensive discussion at bedside , regarding importance of Alcohol abstinence pt verbalized understanding willing to seek help as out patient (2) Pneumonia: possible concern for aspiration as presented with ETOH withdrawal symptom CT chest : Mild subpleural reticular and groundglass opacities of the nondependent right middle lobe, lingula and basal lower lobes is suggestive of a nonspecific infectious or inflammatory pneumonitis. pt was treated with IV Unasyn on day of admission 07/24 changed to PO Augmentin -D/bernardo due to GI symptoms of N/V later changed to PO Levaquin ABx Day # 5 today no cough , no fever or chills pt will not need any more antibiotic to continue on discharge (3) Neutropenia: possible due to ETOH abuse with underlying Alcoholic liver disease extensive counselling provided for ETOH abstinence (4) Elevated LFTs: due to alcoholic hepatitis vs Alcoholic liver disease appreciate input from GI scheduled for GI clinic follow up on 08/06/19 will need EGD to assess esophageal varices for chronic alcohol abuse repeat LFT in 1 week GI recommends complete abstinence form Alcohol , pt is updated regarding consequences of ongoing drinking - irreversible /end stage liver failure in near future (5) Depression: with underlying anxiety disorder : appreciate input from Psychiatry : recommends adjusting dose of Paxil , increase dose form 20 mg to 30 mg daily given addiction Hx no Sedative /hypnotics will be prescribes cont Vistaril as needed for anxiety symptoms out pt Psychiatry and Psycho therapy appointment scheduled already (6) Asthma: stable no SOB , Cough or wheeze cont out pt inhalers (7) DVT prophylaxis: Lovenox CODE status : Full code DISPOSITION : stable to be discharged home today Total Time Total Time Spent Total Time Spent (In Minutes): approx 35 mins Total Time Includes: Examination of the Patient, Discharge Planning and Medication Reconciliation Discharge Plan Discharge Items Patient Disposition: Home - Self-Care Reason For Visit: ETOH WITHDRAWAL Discharge Diagnosis: ETOH WITHDRAWAL /ALCOHOLIC LIVER DISEASE Activity: Resume your previous activity Non-emergency contact: Primary Care Provider, Cosmetics Counter Manager and Psychiatrist Call non-emergency contact if: you have any medication questions Follow-up/Referrals: Hannah Mesa [Physician] - 08/06/19 11:30 am Elliot Whatley MD [Physician] - 07/29/19 2:00 pm (07/29/2019 2:00 PM, Elliot Whatley III, MD [facility] ) Diet: Regular Ambulatory Orders: Hepatic Function (Liver) Panel (Routine) Timeframe: 1 Week Location: Determined by Patient Ordered By: Nayeli Amador Attending Provider Instructions: Therapy appointment was made for September 12, at 2pm with Cheli Reynoso at [facility] Psychiatry follow up with Dr. Fay Douglass on September 21, at 12:30 at [facility] COMPLETE ABSTINENCE FROM ALCOHOL -TO PREVENT IRREVERSIBLE LIVER DISEASE Pending Studies at Discharge: No Stand-Alone Forms: My [employer], Work/School Release (Inpt), Smoking Cessation Medications and DC Order Prescriptions: New multivitamin [Daily-Harris] Tablet 1 tab PO QAM Qty: 0 RF: 0 thiamine HCl (vitamin B1) [Vitamin B-1] 100 mg Tablet 100 mg PO QAM Qty: 0 RF: 0 folic acid 1 mg Tablet 1 mg PO QAM Qty: 0 RF: 0 paroxetine HCl [Paxil] 30 mg tablet 30 mg PO DAILY Qty: 30 RF: 2 Continued fluticasone propion-salmeterol [Advair Diskus] 250-50 mcg/dose blister with device 1 inh inhalation QAM RF: 0 trazodone 50 mg tablet 50 mg PO HS PRN (Reason: Sleep) RF: 0 albuterol sulfate [Ventolin HFA] 90 mcg/actuation Hfa Aerosol Inhaler 2 puff INHALATION Q6H PRN (Reason: Shortness Of Breath) RF: 0 hydroxyzine HCl 10 mg tablet 10 mg PO Q8 PRN (Reason: Anxiety) RF: 0 [place] Cough Drops 3.2 mg Lozenge 0 mg PO UD PRN (Reason: Cough) RF: 0 fluticasone propion-salmeterol [Advair Diskus] 250-50 mcg/dose blister with device 1 ea INHALATION BID RF: 0 Discontinued paroxetine HCl 20 mg tablet 20 mg PO DAILY RF: 0 Discharge Orders: Discharge Order (Routine); Ordered 07/28/19 Ordered By: Nayeli Dominguez/Other Patient Handouts: Addiction Alcohol Signs, Alcoholism, Alcoholism Myths Facts, Addiction Alcohol Admission Data Admit Date/Time: 07/24/19 00:52 Attending Provider: Nayeli Pineda Admit Provider: Huy Salmeron Primary Care Provider: Camila Joyner Other Providers: Huy Salmeron ; Sabine Greenberg Donald S. Other Interventions: Discharge Summary Assessment (RN) Last Done: 07/28/19 11:04 DC Date/Time DO NOT enter until pt leaves facility: 07/28/19 13:17
[2019-07-28] MEDS: levoFLOXacin 750 MG TAB PO SCH (12:33)
== END 2019-07-28 13:17 | disposition home or self-care (01) | DRG 896 ==
LOC: ED 16:36 → SUATTDRO 07-24 00:52 → 2N 07-24 00:52 → 2W 07-26 21:35

== ENCOUNTER 2019-12-09 04:14 | Inpatient (IN) ==
[2019-12-09] MEDS ORDERED: THIAMINE HCL 100 MG TAB PO STA (04:34)
[2019-12-09] MEDS ORDERED: LORazepam 1 MG/2 ML VIAL IV STA ×2 (04:35→04:42)
[2019-12-09] MEDS ORDERED: ONDANSETRON INJ 2 MG/ML 2 ML VIAL IV STA (04:35)
[2019-12-09] MEDS ORDERED: FOLIC ACID 400 MCG TAB PO STA (04:36)
--- NOTE | 2019-12-09 04:39 | Emergency Department Note ---
History of Present Illness General Chief complaint: Alcohol Withdrawal Stated complaint: ALCOHOL WITHDRAWAL Time Seen by Provider: 12/09/19 04:21 History of Present Illness This is a 44-year-old female that presents to the emergency department via private vehicle with complaints of "alcohol withdrawal". The patient states that for the past year she has been drinking 1-1/2 pints of vodka daily. She states that prior to this she was drinking wine. She states that she was seen here earlier in the day for alcohol withdrawal and notes that she continues to not drink any alcohol and has made nearly 24 hours of alcohol but notes now she is extremely tremulous in the arms, legs and also notes vision change bi laterally and feels as though her legs are very unstable and are like "Jell-O". She also states that she felt diaphoretic prior to arrival. In addition she now notes vomiting. She denies any history of seizure. Home Medications Home Medications Medication Instructions Recorded Confirmed Type fluticasone propion-salmeterol 1 inh INHALATION QAM 02/27/19 12/09/19 History [Advair Diskus] albuterol sulfate [Ventolin HFA] 2 puff INHALATION Q6H PRN 07/23/19 12/09/19 History hydroxyzine HCl 10 mg PO Q8 PRN 07/23/19 12/09/19 History folic acid 1 mg PO QAM #0 tab 07/27/19 12/09/19 Rx multivitamin [Daily-Harris] 1 tab PO QAM #0 tab 07/27/19 12/09/19 Rx thiamine HCl (vitamin B1) [Vitamin 100 mg PO QAM #0 tab 07/27/19 12/09/19 Rx B-1] Allergies Allergy/AdvReac Type Severity Reaction Status Date / Time theophylline AdvReac Unknown VERTIGO Verified 12/09/19 04:34 Past Med/Surg History Medical History Alcohol abuse (Acute) Anxiety (Chronic) Asthma (Chronic) Surgical History History of dental surgery History of esophagogastroduodenoscopy (EGD) Family History Father Prediabetes Grandfather (Paternal) Diabetes Mother Hypertension MVP (mitral valve prolapse) Social History Preferred Language: Chinese Communication Ability: Effective Fusing Line Inspector Required: No Beliefs That Will Affect Care: None marital status details: Single parent Current Living Situation: Family Current Living Situation Comment: with daughter- 16 years old current occupational status: unemployed Other Information That Helps Us Care for You: No Feels Safe at Home: Yes Safety Concerns: Feels Safe At This Time Smoking Status: Former smoker Tobacco Type: cigarettes ; Age Quit Using Tobacco: 39 ; packs per day: 1 ; Number of Years Since Quit: 4 ; Second Hand Exposure: No ; Hx Alcohol Use: Yes Alcohol type: wine and hard liquor Alcohol type Comment: 1.5 pints of vodka. Alcohol Intake Frequency: Daily Hx Substance Use: No Childhood Exposure to Second-Hand Smoke: No Review of Systems A total of 10 systems reviewed and were otherwise negative Physical Exam Vital Signs Vital Signs - 24 hr 12/09/19 04:16 12/09/19 04:51 12/09/19 05:11 Temperature 36.9 C Temperature Source Oral Pulse Rate 111 H 104 H Pulse Rate [Right Finger] Respiratory Rate 20 20 Respiratory Depth Normal Blood Pressure 131/85 Blood Pressure [Right Arm] Blood Pressure Mean 100 Blood Pressure Mean [Right Arm] Blood Pressure Position [Right Arm] Pulse Oximetry 95 98 Oxygen Delivery Method Room Air Room Air Sepsis Recent Fever Within 48 Hours No Sepsis New/Unexplained Change in Mental Status No Sepsis Action Taken by Nursing No Action Required 12/09/19 05:55 12/09/19 06:00 12/09/19 06:15 Temperature Temperature Source Pulse Rate 116 H 106 H Pulse Rate [Right Finger] 96 H Respiratory Rate 19 20 Respiratory Depth Normal Blood Pressure 168/113 H Blood Pressure [Right Arm] 168/113 H Blood Pressure Mean 123 Blood Pressure Mean [Right Arm] 131 Blood Pressure Position [Right Arm] Lying Pulse Oximetry 96 96 Oxygen Delivery Method Room Air Room Air Sepsis Recent Fever Within 48 Hours Sepsis New/Unexplained Change in Mental Status Sepsis Action Taken by Nursing 12/09/19 06:41 12/09/19 06:45 12/09/19 06:49 Temperature Temperature Source Pulse Rate 104 H 105 H Pulse Rate [Right Finger] 100 H Respiratory Rate 18 20 21 Respiratory Depth Normal Blood Pressure Blood Pressure [Right Arm] 140/96 Blood Pressure Mean 260 243 Blood Pressure Mean [Right Arm] 110 Blood Pressure Position [Right Arm] Lying Pulse Oximetry 96 Oxygen Delivery Method Room Air Sepsis Recent Fever Within 48 Hours Sepsis New/Unexplained Change in Mental Status Sepsis Action Taken by Nursing 12/09/19 06:50 Temperature Temperature Source Pulse Rate 101 H Pulse Rate [Right Finger] Respiratory Rate 19 Respiratory Depth Blood Pressure 140/96 Blood Pressure [Right Arm] Blood Pressure Mean 102 Blood Pressure Mean [Right Arm] Blood Pressure Position [Right Arm] Pulse Oximetry Oxygen Delivery Method Sepsis Recent Fever Within 48 Hours Sepsis New/Unexplained Change in Mental Status Sepsis Action Taken by Nursing VITAL SIGNS - Vital signs and nursing notes were reviewed. Hypertensive and tachycardic. GENERAL - 44-year-old female appearing her stated age who is in no acute distress but does appear to be tremulous. Communicates well with provider and answers questions appropriately. SKIN - Without rashes. No meningeal or petechial rash. HEAD - NC/AT. EYES - Sclera anicteric. EARS - No deformities of external structures noted on gross examination bilaterally. NOSE - Midline and without cyanosis. No epistaxis or purulent drainage noted. MOUTH/OROPHARYNX - Without perioral cyanosis. NECK - Neck with FROM. No nuchal rigidity. LUNGS - Chest wall symmetric without accessory muscle use, intercostals retractions, or central cyanosis. Normal vesicular breath sounds CTA B/L. No wheezes, rales, or rhonchi appreciated. CARDIAC - RRR with S1/S2. No murmur, rubs, or gallops appreciated. ABDOMEN - Abdominal contour normal without pulsations or visible masses. BS normoactive all four quadrants. No tenderness, palpable masses, hepatosplenomegaly, or ascites noted. EXTREMITIES - No clubbing or peripheral cyanosis. No pretibial edema present. +5/5 strength noted in UE/LE bilaterally. Tremulous movements noted in the extremities bilaterally. NEUROLOGIC - Cranial nerves II through XII grossly intact. Sensory intact to light touch throughout. PSYCH - A&Ox3 and cooperates fully with examiner. Pt is very pleasant and interacts well with examiner. Course Administered Medications Discontinued Medications Folic Acid (Folvite) 400 mcg PO NOW STA Stop: 12/09/19 04:37 Last Admin: 12/09/19 06:00 Dose: Not Given Documented by: [id number] Folic Acid (Folvite) 1 mg PO QAM ARMANI Stop: 01/08/20 08:59 Last Admin: 12/09/19 05:59 Dose: 1 mg Documented by: [id number] Sodium Chloride (Nss 1000ml) 1,000 mls @ 999 mls/hr IV .Q1H1M ARMANI Stop: 12/09/19 05:45 Last Infusion: 12/09/19 07:00 Dose: 0 mls/hr Documented by: [id number] Admin: 12/09/19 05:05 Dose: 999 mls/hr Documented by: [id number] Lorazepam (Ativan) 1 mg in 2 mls @ 2 mls/min IV NOW STA Stop: 12/09/19 04:36 Last Admin: 12/09/19 05:06 Dose: 2 mls/min Documented by: [id number] Lorazepam (Ativan) 1 mg in 2 mls @ 2 mls/min IV NOW STA Stop: 12/09/19 04:43 Last Admin: 12/09/19 05:13 Dose: 2 mls/min Documented by: [id number] Famotidine (Pepcid 20mg Iv Push) 20 mg in 5 mls @ 2.5 mls/min IV NOW STA Stop: 12/09/19 04:48 Last Admin: 12/09/19 05:05 Dose: 2.5 mls/min Documented by: [id number] Lorazepam (Ativan) 2 mg in 4 mls @ 4 mls/min IV NOW STA Stop: 12/09/19 06:14 Last Admin: 12/09/19 06:25 Dose: 4 mls/min Documented by: [id number] Ondansetron HCl (Zofran) 4 mg IV NOW STA Stop: 12/09/19 04:36 Last Admin: 12/09/19 05:05 Dose: 4 mg Documented by: [id number] Thiamine HCl (Vitamin B-1) 100 mg PO NOW STA Stop: 12/09/19 04:35 Last Admin: 12/09/19 05:58 Dose: 100 mg Documented by: [id number] Medical Decision Making Laboratory Data Result diagrams: 12/09/19 04:59 12/09/19 04:59 Lab Results 12/09/19 12/09/19 12/09/19 Range/Units 04:59 04:59 04:59 WBC 2.45 L (4.8-10.8) K/uL RBC 3.93 L (4.2-5.4) M/uL Hgb 13.7 (12.0-16.0) g/dL Hct 40.2 (37-47) % MCV 102.3 H (80-100) fL MCH 34.9 H (25-34) pg MCHC 34.1 (32-36) g/dL RDW Std Deviation 46.9 H (36.4-46.3) fL RDW Coeff of Suzanne 12.6 (11.5-14.5) % Plt Count 100 L (130-400) K/uL MPV 9.3 (7.4-10.4) fL Immature Gran % (Auto) 0.4 % Neut % (Auto) 66.1 % Lymph % (Auto) 19.6 % [place] % (Auto) 13.1 % Eos % (Auto) 0.4 % Baso % (Auto) 0.4 % Immature Gran # (Auto) 0.01 (0.00-0.02) K/uL Neut # (Auto) 1.62 (1.4-6.5) K/uL Lymph # (Auto) 0.48 L (1.2-3.4) K/uL [place] # (Auto) 0.32 (0.11-0.59) K/uL Eos # (Auto) 0.01 (0-0.5) K/uL Baso # (Auto) 0.01 (0-0.2) K/uL Tear Drop Cells 1+ PT 11.3 (9.0-12.0) Seconds INR 1.1 (0.9-1.1) APTT 26.2 (21.0-31.0) Seconds PTT Ratio 0.9 Sodium (136-145) mmol/L Potassium (3.5-5.1) mmol/L Chloride (98-107) mmol/L Carbon Dioxide (21-32) mmol/L Anion Gap (3-11) BUN (7-18) mg/dl Creatinine (0.6-1.2) mg/dl Est Cr Clr Drug Dosing Est GFR ( Amer) Est GFR (Non-Af Amer) BUN/Creatinine Ratio (10-20) Glucose (70-99) mg/dl Calcium (8.5-10.1) mg/dl Phosphorus (2.5-4.9) mg/dl Magnesium (1.8-2.4) mg/dl Total Bilirubin (0.2-1) mg/dl AST (15-37) U/L ALT (12-78) U/L Alkaline Phosphatase (45-117) U/L Total Protein (6.4-8.2) gm/dl Albumin (3.4-5.0) gm/dl Globulin (2.5-4.0) gm/dl Albumin/Globulin Ratio (0.9-2) Lipase (73-393) U/L Ethyl Alcohol mg/dL 21.0 H (0-3) mg/dl 12/09/19 12/09/19 Range/Units 04:59 04:59 WBC (4.8-10.8) K/uL RBC (4.2-5.4) M/uL Hgb (12.0-16.0) g/dL Hct (37-47) % MCV (80-100) fL MCH (25-34) pg MCHC (32-36) g/dL RDW Std Deviation (36.4-46.3) fL RDW Coeff of Suzanne (11.5-14.5) % Plt Count (130-400) K/uL MPV (7.4-10.4) fL Immature Gran % (Auto) % Neut % (Auto) % Lymph % (Auto) % [place] % (Auto) % Eos % (Auto) % Baso % (Auto) % Immature Gran # (Auto) (0.00-0.02) K/uL Neut # (Auto) (1.4-6.5) K/uL Lymph # (Auto) (1.2-3.4) K/uL [place] # (Auto) (0.11-0.59) K/uL Eos # (Auto) (0-0.5) K/uL Baso # (Auto) (0-0.2) K/uL Tear Drop Cells PT (9.0-12.0) Seconds INR (0.9-1.1) APTT (21.0-31.0) Seconds PTT Ratio Sodium 140 (136-145) mmol/L Potassium 3.6 (3.5-5.1) mmol/L Chloride 104 (98-107) mmol/L Carbon Dioxide 19 L (21-32) mmol/L Anion Gap 17.0 H (3-11) BUN 10 (7-18) mg/dl Creatinine 0.86 (0.6-1.2) mg/dl Est Cr Clr Drug Dosing Not Reportable Est GFR ( Amer) 95.2 Est GFR (Non-Af Amer) 82.2 BUN/Creatinine Ratio 12.2 (10-20) Glucose 102 H (70-99) mg/dl Calcium 10.3 H (8.5-10.1) mg/dl Phosphorus 2.1 L (2.5-4.9) mg/dl Magnesium 1.8 (1.8-2.4) mg/dl Total Bilirubin 1.2 H (0.2-1) mg/dl AST 335 H (15-37) U/L ALT 172 H (12-78) U/L Alkaline Phosphatase 134 H (45-117) U/L Total Protein 7.6 (6.4-8.2) gm/dl Albumin 4.2 (3.4-5.0) gm/dl Globulin 3.4 (2.5-4.0) gm/dl Albumin/Globulin Ratio 1.2 (0.9-2) Lipase 2802 H (73-393) U/L Ethyl Alcohol mg/dL (0-3) mg/dl ECG Data Additional Comments: EKG per my interpretation reveals normal sinus rhythm at a rate of 98 bpm. QTc 421. There is no ectopy or ischemic change. No ST eleva tion [place]. MDM Narrative Patient was seen and evaluated as above in room C8. Review was performed of nursing notes and vital signs. I did review pertinent previous visits and patient history. After obtaining a thorough history and physical examination the above work up was performed. Patient presents to us today with a history of alcohol abuse now with what appears to be alcohol withdrawal. The patient on arrival is tachycardic and borderline hypertensive. No history of seizure. I reviewed the visit from earlier today. The patient continues to refrain from alcohol use and has made it nearly 24 hours now. Based upon her history and how much she was drinking on a daily basis and her presentation/tremors this is felt to be alcohol withdrawal. Labs reveal decrease in white blood cell count as well as red blood cell count. Patient's platelet count is low at 100. PT and INR are within normal limits. Carbon dioxide 19 with an anion gap of 17. [place] is low at 2.1. T bili, AST and ALT are all elevated. Lipase 2800. Alcohol level was drawn and was 21. Patient was alert and oriented during examination. Thiamine, folic acid as well as fluids were ordered. She was also given 2 mg of Ativan with minimal improvement therefore no 2 mg were given. With the patient's presentation here today I do believe that further evaluation and m anagement in the inpatient setting is warranted. Please refer to further documentation regarding her stay. Case was discussed with the attending physician. An order was placed for continuous cardiac monitoring. The monitor shows a rate of 106 with sinus rhythm. I attest that I have personally reviewed the patient medication list. GCS: 15 In the evaluation and treatment of this patient the following differential diagnoses were entertained: Seizure, acute neurologic event, metabolic distur bance, alcohol withdrawal, infection, among others. Impression & Plan Alcohol withdrawal, Nausea and vomiting, Acute pancreatitis, Elevated LFTs Discharge Plan Visit Data Chief Complaint: Alcohol Withdrawal Stated Complaint: ALCOHOL WITHDRAWAL ED Provider: Elvia Jane ED Midlevel Provider: Juan Pablo Billings Discharge Problem: Alcohol withdrawal, Nausea and vomiting, Acute pancreatitis, Elevated LFTs Patient Disposition: Admitted As Inpatient Condition: Good Discharge Instructions Interventions: ED Discharge Assessment Last Done: 12/09/19 09:25
[2019-12-09] MEDS ORDERED: SODIUM CHLORIDE 0.9% 1000ML 1,000 ML IV SCH (04:45)
[2019-12-09] MEDS ORDERED: FAMOTIDINE 20MG IV PUSH 20 MG/5 ML SYR IV STA (04:47)
[2019-12-09 05:09] LABS: Basophils # (auto) 0.01 K/uL (0-0.2); Basophils % (auto) 0.4 %; Eosinophils # (auto) 0.01 K/uL (0-0.5); Eosinophils % (auto) 0.4 %; Hematocrit (blood only) 40.2 % (37-47); Hemoglobin 13.7 g/dL (12.0-16.0); Immature Granulocytes # (auto) 0.01 K/uL (0.00-0.02); Immature Granulocytes % (auto) 0.4 %; Lymphocytes # (auto) 0.48 K/uL (1.2-3.4); Lymphocytes % (auto) 19.6 %; Mean Corpuscular Hemoglobin 34.9 pg (25-34); Mean Corpuscular Hgb Conc 34.1 g/dL (32-36); Mean Corpuscular Volume 102.3 fL (80-100); Mean Platelet Volume 9.3 fL (7.4-10.4); Monocytes # (auto) 0.32 K/uL (0.11-0.59); Monocytes % (auto) 13.1 %; Neutrophils # (auto) 1.62 K/uL (1.4-6.5); Neutrophils % (auto) 66.1 %; Platelet Count 100 K/uL (130-400); RDW Coefficient of Variation 12.6 % (11.5-14.5); RDW Standard Deviation 46.9 fL (36.4-46.3); Red Blood Count 3.93 M/uL (4.2-5.4); White Blood Count 2.45 K/uL (4.8-10.8)
[2019-12-09 05:21] LABS: INR 1.1 (0.9-1.1); Partial Thromboplastin Ratio 0.9; Partial Thromboplastin Time 26.2 Seconds (21.0-31.0); Prothrombin Time 11.3 Seconds (9.0-12.0)
[2019-12-09 05:35] LABS: Alanine Aminotransferase 172 U/L (12-78); Albumin Level 4.2 gm/dl (3.4-5.0); Aspartate Aminotransferase 335 U/L (15-37); BUN Creatinine Ratio 12.2 (10-20); Blood Urea Nitrogen 10 mg/dl (7-18); Calcium 10.3 mg/dl (8.5-10.1); Carbon Dioxide 19 mmol/L (21-32); Chloride 104 mmol/L (98-107); Est GFR (African American) 95.2; Est GFR (Non-African American) 82.2; Glucose 102 mg/dl (70-99); Magnesium 1.8 mg/dl (1.8-2.4); Potassium 3.6 mmol/L (3.5-5.1); Sodium 140 mmol/L (136-145)
[2019-12-09 05:36] LABS: Tear Drop Cells 1+
[2019-12-09 05:38] LABS: Albumin Globulin Ratio 1.2 (0.9-2); Alkaline Phosphatase 134 U/L (45-117); Bilirubin,Total 1.2 mg/dl (0.2-1); Globulin 3.4 gm/dl (2.5-4.0); Lipase 2802 U/L (73-393); Total Protein 7.6 gm/dl (6.4-8.2)
[2019-12-09] MEDS ORDERED: LORazepam 2 MG/4 ML VIAL IV STA (06:13)
[2019-12-09] MEDS ORDERED: MULTI-VITAMIN INFUSION 10 ML, THIAMINE HCL 100 MG, FOLIC ACID 1 MG in SODIUM CHLORIDE 0... IV ONE (07:55)
[2019-12-09] MEDS ORDERED: POTASSIUM PHOS 3 MMOL/1 ML INFUSION IV STA (08:44)
--- NOTE | 2019-12-09 08:45 | History & Physical Report ---
Date of Service December 09, 2019 Assessment & Plan (1) Alcohol withdrawal: This is a 44-year-old female who has significant past medical history of alcohol abuse, asthma, MDD, panic disorder who presents to ED secondary to alcohol withdrawal symptoms x1 day. In ED patient was hemodynamically stable, but was tachycardic. She did receive 1 L IVF, oral thiamine and folic acid along with a total of 4 mg of IV Ativan. She also received IV Zofran with improvement of nausea. She has not had any episodes of emesis while in ED. Lab work notable for leukopenia and thrombocytopenia with a white count of 2.45k and platelet count of 100,000 consistent with alcohol abuse. Further lab abnormalities include AST 335, ALT 172, alk phos 134, total bili 1.2, Phos 2.1, mag 1.8, K 3.6, lipase 2802, ethyl alcohol 21. admit to PCU AWSS protocol Librium Taper IV Ativan - Active protocol NPO except meds seizure precautions LR @ 200cc/hr case management consulted (2) Acute pancreatitis: elevated lipase 2802, presents with n/v No abdominal pain likely 2/2 to significant ETOH abuse given elevated LFTS will order RUQ u/s rule out obstructive process NPO IVF LR @ 200 cc/h follow lipase (3) Electrolyte abnormality: Hypophosphatemia, Phos 2.1 replace with K phos 9mmol x 1; give 1g IV mag (mag 1.8 but except to decrease with IVF) Potassium 3.6 - monitor daily need for repletion Banana bag ordered in ED; then Maintenance LR @ 200/hr (4) Alcoholic hepatitis: elevated LFTS AST 335, ALT 172, alk phos 134, total bilirubin 1.2 Likely in setting of alcohol abuse AST greater than ALT Given evidence of pancreatitis obtain liver ultrasound rule out obstructive process Does not appear patient has had hepatitis testing in past; will order (5) Depression: Patient previously had been on Paxil and trazodone States has not been taking for the past 2 to 3-weeks Currently denies depressed mood, SI or HI; however per ED note yesterday as well as encounters in [facility] appears she has been struggling with anxiety and depression since development of pandemic Low threshold for psych consult (6) Asthma: No acute exacerbation Continue Advair, PRN albuterol (7) DVT prophylaxis: SCDs, teds Disposition: Admit to PCU, case management consulted for consideration for alcohol rehab Follow-up: PCP Dr. Whatley upon discharge Patient was seen and examined in collaboration with Dr. Pettit, please see addendum History of Present Illness Chief Complaint: Alcohol withdrawal x1 day. Primary Care Provider: Camila rao PA-C This is a 44-year-old female who has significant past medical history of alcohol abuse, asthma, MDD, panic disorder who presents to ED secondary to alcohol withdrawal symptoms x1 day. She elicits to drinking 1.5 pints of alcohol daily for the past year. Prior to the past year she was drinking significant amounts of wine. Her last drink was yesterday morning at approximately 9 AM, hard liquor. Yesterday afternoon she began to feel tremulous, sweats, cloudy vision, and nauseated. According to outpatient records mother had contacted PCP several times due to concern for altered mental status, ill feeling and not getting out of bed. Initially was resistant to come to ED but did end up seeking treatment yesterday evening. She was seen in ED for alcohol withdrawal, given IV fluid, thiamine and folic acid as well as other milligrams of Librium. She was discharged home on Librium but did not resume taper. She presents back today secondary to persistent tremors, sweats, nausea and multiple episodes of emesis. She denies any hematemesis. She denies any documented fever, chills, lightheadedness, syncope, chest pain, shortness of breath, palpitations, hemoptysis, abdominal pain, dysuria, increased urgency or frequency with urination, diarrhea, melena, hematochezia. Her last BM was 2 days ago. She was able to eat a sandwich yesterday and tolerate liquids but otherwise has had a poor p.o. intake. She does complain of feeling dizzy when standing and very off balance. According to ER nurse when patient attempted to ambulate to bathroom in ED she was very unsteady. She does have prior history of alcohol withdrawal and was last hospitalized July 2019. She denies any prior history of DTs or seizure-like activity. In ED patient was hemodynamically stable, but was tachycardic. She did receive 1 L IVF, oral thiamine and folic acid along with a total of 4 mg of IV Ativan. She also received IV Zofran with improvement of nausea. She has not had any episodes of emesis while in ED. Lab work notable for leukopenia and thrombocytopenia with a white count of 2.45k and platelet count of 100,000 consistent with alcohol abuse. Further lab abnormalities include AST 335, ALT 172, alk phos 134, total bili 1.2, Phos 2.1, mag 1.8, K3.6, lipase 2802, ethyl alcohol 21. Allergies Allergy/AdvReac Type Severity Reaction Status Date / Time theophylline AdvReac Unknown VERTIGO Verified 12/09/19 04:34 Home Medications Home Medications Medication Instructions Recorded Confirmed Type fluticasone propion-salmeterol 1 inh INHALATION QAM 02/27/19 12/09/19 History [Advair Diskus] albuterol sulfate [Ventolin HFA] 2 puff INHALATION Q6H PRN 07/23/19 12/09/19 History hydroxyzine HCl 10 mg PO Q8 PRN 07/23/19 12/09/19 History folic acid 1 mg PO QAM #0 tab 07/27/19 12/09/19 Rx multivitamin [Daily-Harris] 1 tab PO QAM #0 tab 07/27/19 12/09/19 Rx thiamine HCl (vitamin B1) [Vitamin 100 mg PO QAM #0 tab 07/27/19 12/09/19 Rx B-1] Past Med/Surg History Medical History Alcohol abuse (Acute) Anxiety (Chronic) Asthma (Chronic) Surgical History History of dental surgery History of esophagogastroduodenoscopy (EGD) Family History Father Prediabetes Grandfather (Paternal) Diabetes Mother Hypertension MVP (mitral valve prolapse) Social History Preferred Language: Guatemalan Communication Ability: Effective Basketball Assembler Required: No Beliefs That Will Affect Care: None marital status details: Single parent Current Living Situation: Family Current Living Situation Comment: with daughter- 16 years old current occupational status: unemployed Other Information That Helps Us Care for You: No Feels Safe at Home: Yes Safety Concerns: Feels Safe At This Time Smoking Status: Former smoker Tobacco Type: cigarettes ; Age Quit Using Tobacco: 39 ; packs per day: 1 ; Number of Years Since Quit: 4 ; Second Hand Exposure: No ; Hx Alcohol Use: Yes Alcohol type: wine and hard liquor Alcohol type Comment: 1.5 pints of vodka. Alcohol Intake Frequency: Daily Hx Substance Use: No Childhood Exposure to Second-Hand Smoke: No Review of Systems Review of Systems: All systems reviewed & are unremarkable except as noted in HPI & below Physical Exam Physical Exam: Constitutional: WD/WN, acutely ill-appearing, tremulous, vitals as above, NAD, sitting up in bed, drowsy, answers questions appropriately Head: Normocephalic, Atraumatic Eyes: PERRL, conjunctivae normal, anicteric sclerae ENMT: external ear and nose normal, oropharynx normal dry mucous membranes Neck: trachea midline, no thyromegaly normal visual inspection Respiratory: normal respiratory effort, lungs clear to auscultation, no wheeze, rales, rhonchi. Normal insp/exp effort, no accessory muscle use Cardiovascular: Tachycardic rate, regular rhythm,no murmur, no edema Vessels: no JVD or carotid bruit Chest: normal inspection of chest Abdomen: mild distension of abd, normal bowel sounds, soft, nontender, Musculoskeletal: no cyanosis or clubbing, extremities motor strength 5/5 Skin: no rashes, warm and dry normal turgor Neurologic: + b/l upper ext tremors, PERRL, EOMI, accommodation nl, no face palsy, no dysarthria CN's II-XI intact bilaterally and moves all extremities Psychiatric: A+Ox3, euthymic affect Lymphatic: no cervical or axillary lymphadenopathy : deferred Results & Data Results & Data ([facility]) Vital Signs (Past 12 Hours) Vital Signs Temp Pulse Pulse Resp BP BP Pulse Ox 12/09/19 06:41 100 H 18 140/96 96 12/09/19 06:15 96 12/09/19 06:00 96 H 18 168/113 H 96 12/09/19 05:11 98 12/09/19 04:16 36.9 C 111 H 20 131/85 95 Laboratory Results Short CBC 12/09/19 Range/Units 04:59 WBC 2.45 L (4.8-10.8) K/uL Hgb 13.7 (12.0-16.0) g/dL Hct 40.2 (37-47) % Plt Count 100 L (130-400) K/uL BMP 12/09/19 04:59 Sodium 140 Potassium 3.6 Chloride 104 Carbon Dioxide 19 L BUN 10 Creatinine 0.86 Glucose 102 H Calcium 10.3 H Liver Function 12/09/19 Range/Units 04:59 Total Bilirubin 1.2 H (0.2-1) mg/dl AST 335 H (15-37) U/L ALT 172 H (12-78) U/L Alkaline Phosphatase 134 H (45-117) U/L Albumin 4.2 (3.4-5.0) gm/dl Medications Administered Folic Acid (Folvite) 1 mg PO QAM ARMANI Stop: 01/08/20 08:59 Last Admin: 12/09/19 05:59 Dose: 1 mg Documented by: [id number] Discontinued Medications Folic Acid (Folvite) 400 mcg PO NOW STA Stop: 12/09/19 04:37 Last Admin: 12/09/19 06:00 Dose: Not Given Documented by: [id number] Sodium Chloride (Nss 1000ml) 1,000 mls @ 999 mls/hr IV .Q1H1M ARMANI Stop: 12/09/19 05:45 Last Admin: 12/09/19 05:05 Dose: 999 mls/hr Documented by: [id number] Lorazepam (Ativan) 1 mg in 2 mls @ 2 mls/min IV NOW STA Stop: 12/09/19 04:36 Last Admin: 12/09/19 05:06 Dose: 2 mls/min Documented by: [id number] Lorazepam (Ativan) 1 mg in 2 mls @ 2 mls/min IV NOW STA Stop: 12/09/19 04:43 Last Admin: 12/09/19 05:13 Dose: 2 mls/min Documented by: [id number] Famotidine (Pepcid 20mg Iv Push) 20 mg in 5 mls @ 2.5 mls/min IV NOW STA Stop: 12/09/19 04:48 Last Admin: 12/09/19 05:05 Dose: 2.5 mls/min Documented by: [id number] Lorazepam (Ativan) 2 mg in 4 mls @ 4 mls/min IV NOW STA Stop: 12/09/19 06:14 Last Admin: 12/09/19 06:25 Dose: 4 mls/min Documented by: [id number] Ondansetron HCl (Zofran) 4 mg IV NOW STA Stop: 12/09/19 04:36 Last Admin: 12/09/19 05:05 Dose: 4 mg Documented by: [id number] Thiamine HCl (Vitamin B-1) 100 mg PO NOW STA Stop: 12/09/19 04:35 Last Admin: 12/09/19 05:58 Dose: 100 mg Documented by: [id number] ECG Rate (beats per minute): 98 Rhythm: normal sinus Code Status & VTE Plan Code Status Full Code VTE Prophylaxis Plan VTE Prophylaxis will be ordered: Yes Supervising Physician Co-Signing Physician Notes Patient seen and examined by me, care coordinated with Rita Tuttle PA-C. Please refer to her note above for further details. This is a 44-year-old female who has significant past medical history of alcohol abuse, asthma, MDD, panic disorder who presents to ED secondary to alcohol withdrawal symptoms x1 day. She elicits to drinking 1.5 pints of alcohol daily for the past year. Yesterday afternoon she began to feel tremulous, sweats, cloudy vision, and nauseated. She does have prior history of alcohol withdrawal and was last hospitalized July 2019. She denies any prior history of DTs or seizure-like activity. Patient is currently lying in bed, able to answer my questions, very tremulous. Lungs are clear to auscultation bilaterally. Cardiovascular: Tachycardic. Abdomen is soft, nontender to palpation, normal bowel sounds, mildly distended obese. Patient moves extremities spontaneously and without difficulty, however very tremulous. She is alert and oriented x3 and answers questions appropriately. Skin is warm and dry, no rashes or lesions noted. LFTs and lipase significantly elevated. Patient started on banana bag and LR 200/h. GI consulted. Librium taper, Ativan as needed. Leukopenia and thrombocytopenia with a white count of 2.45k and platelet count of 100,000 likely secondary to alcohol abuse. Close hemodynamic monitoring. MD Gabriel (1) Alcohol withdrawal Complication of substance-induced condition: uncomplicated Qualified Code(s): F10.230 - Alcohol dependence with withdrawal, uncomplicated (2) Depression Depression Type: unspecified Qualified Code(s): F32.9 - Major depressive disorder, single episode, unspecified (3) Alcoholic hepatitis Ascites presence: without ascites Qualified Code(s): K70.10 - Alcoholic hepatitis without ascites (4) Asthma Asthma complication type: unspecified Asthma persistence: unspecified Asthma severity: unspecified severity Qualified Code(s): J45.909 - Unspecified asthma, uncomplicated
[2019-12-09] MEDS ORDERED: MAGNESIUM SULFATE / D5W 1 GM/100 ML BAG IV STA (08:47)
[2019-12-09] MEDS ORDERED: FOLIC ACID 1 MG TAB PO SCH (09:00)
[2019-12-09] MEDS ORDERED: ALUMINUM/MAGNESIUM SUSP 30 ML UDC PO PRN (09:27)
[2019-12-09] MEDS ORDERED: ATIVAN IV ALCOHOL WITHDRAWL IV PRN (09:27)
[2019-12-09] MEDS ORDERED: chlordiazePOXIDE ALCOHOL WITHDRAWL 50MG PO STA (09:27)
[2019-12-09] MEDS ORDERED: ONDANSETRON INJ 2 MG/ML 2 ML VIAL IV PRN (09:27)
[2019-12-09] MEDS ORDERED: LORazepam 3 MG/6 ML VIAL IV PRN (09:27)
[2019-12-09] MEDS ORDERED: POLYETHYLENE (MIRALAX) 17 GM PACK PO PRN (09:27)
[2019-12-09] MEDS ORDERED: MAGNESIUM HYDROXIDE SUSP 30 ML UDC PO PRN (09:27)
[2019-12-09] MEDS ORDERED: POTASSIUM PHOSPHATE 9 MMOL in SODIUM CHLORIDE 0.9% 250 ML IV ONE (09:45)
--- NOTE | 2019-12-09 10:00 | Gastrointestinal Consultation ---
Date of Consultation December 09, 2019 Assessment & Plan (1) Elevated LFTs: 44-year-old female who has significant past medical history of alcohol abuse, asthma, MDD, panic disorder who presents to ED secondary to alcohol withdrawal symptoms x 1 day. She is tachycardiac, otherwise hemodynamically stable w/ elevated transaminases and lipase. Biliary imaging pending. She deneis abd pain but does suggests decreased appetite x 1 week and vomiting last evening - ETOH withdrawal protocol - ETOH cessation supervisor concrete stone fabricating was discussed - NPO - LR 200 mL/hr - Antiemetics PRN - Analgesia PRN - Follow ABD US - If medically stable to leave floor consider CTAP - Acute hep panel - Trend LFTs - DF < 32 - Will follow. Thank you for allowing us to participate in the care of this patient. Please call with any acute changes, questions or concerns. Please see addendum below with additional recommendation from my supervising physician. (2) Alcohol withdrawal: (3) Alcohol abuse: (4) Acute pancreatitis: Supervising Physician Co-Signing Physician Notes Attg add: I interviewed and examined pt, reviewed chart and labs. Pt is an alcoholic, admit for withdrawal symptoms after stopping alcohol intake yesertday morning. She had some vomiting, but denies abdominal pain. Labs show increased transaminases with normal bili/INR/nl creat. Her lipase was markedly elevated. On exam, she is drowsy; she has ontenderness on deep abdominal palpation. Uls did not show juan pablo dil or stones. A/P: Alc hep, increased lipase without juan pablo dil, stones -- Suspect alcoholic pancreatitis, mild alc hep. Continue supportive care. If bili rises, will request MRCP. History of Present Illness Reason for Consultation: elevated LFTs, elevatedlipase Requesting Physician: Hodan Attending Physician: Harley Pettit MD History of Present Illness 44 year old female with history of alcohol abuse, asthma, MDD, panic disorder who presents to ED secondary to alcohol withdrawal symptoms x 1 day - GI asked to evaluate for elevated lipase, elevated LFTS. Pt was seen and evaluated, chart reviewed. She elicits to drinking 1.5 pints of alcohol daily for the past year. Prior to the past year she was drinking significant amounts of wine but not typically hard liquid. Her last drink was yesterday morning at approximately 9 AM, hard liquor. She suggests about 1 pint of liquid yesterday. About 12 or so hours ago she noted chills, sweats, shakiness and nauseated feeling. She denies any abdominal pain but does suggest decrease appetite and decrease PO intake x 1 week. She did vomit x 3 yesterday and had dry heaves. Emesis was bilious. No black or bloody emesis. No change in BM, denies black/bloody stools. ty. In ED patient was tachycardic but otherwise hemodynamically stable. She is leukopenic and thrombocytopenic w/ elevated AST 335, ALT 172, alk phos 134, total bili 1.2, lipase 2802. Ethyl alcohol 21. She was made NPO, transferred to the ICU on ETOH withdrawal protocol and is undergoing US imaging at time of my consultation. EGD 08/09/19: grade b reflux esophagitis, normal stomach, normal duodenum bx w/ chronic gastritis, negative hpylori Colonoscopy: none Allergies Allergy/AdvReac Type Severity Reaction Status Date / Time theophylline AdvReac Unknown VERTIGO Verified 12/09/19 04:34 Home Medications Home Medications Medication Instructions Recorded Confirmed Type fluticasone propion-salmeterol 1 inh INHALATION QAM 02/27/19 12/09/19 History [Advair Diskus] albuterol sulfate [Ventolin HFA] 2 puff INHALATION Q6H PRN 07/23/19 12/09/19 History hydroxyzine HCl 10 mg PO Q8 PRN 07/23/19 12/09/19 History folic acid 1 mg PO QAM #0 tab 07/27/19 12/09/19 Rx multivitamin [Daily-Harris] 1 tab PO QAM #0 tab 07/27/19 12/09/19 Rx thiamine HCl (vitamin B1) [Vitamin 100 mg PO QAM #0 tab 07/27/19 12/09/19 Rx B-1] Patient History Medical History Alcohol abuse (Acute) Anxiety (Chronic) Asthma (Chronic) Surgical History History of dental surgery History of esophagogastroduodenoscopy (EGD) Family History Father Prediabetes Grandfather (Paternal) Diabetes Mother Hypertension MVP (mitral valve prolapse) Social History Preferred Language: Maltese Communication Ability: Effective Abalone Processor Required: No Beliefs That Will Affect Care: None marital status details: Single parent Current Living Situation: Family Current Living Situation Comment: with daughter- 16 years old current occupational status: unemployed Other Information That Helps Us Care for You: No Feels Safe at Home: Yes Safety Concerns: Feels Safe At This Time Smoking Status: Former smoker Tobacco Type: cigarettes ; Age Quit Using Tobacco: 39 ; packs per day: 1 ; Number of Years Since Quit: 4 ; Second Hand Exposure: No ; Hx Alcohol Use: Yes Alcohol type: wine and hard liquor Alcohol type Comment: 1.5 pints of vodka. Alcohol Intake Frequency: Daily Hx Substance Use: No Childhood Exposure to Second-Hand Smoke: No Review of Systems Constitutional: + chills, + sweats and + anorexia; no fever and no fatigue Respiratory: no cough and no dyspnea Cardiovascular: no chest pain and no dyspnea Gastrointestinal: + nausea and + vomiting (yesterday, bilious); no abdominal pain, no belching, no bloating, no heartburn, no diarrhea/loose stools, no fecal incontinence, no blood in stools and no melena Physical Exam Constitutional: + acute distress and + ill appearing Neck: trachea midline Respiratory: normal respiratory effort Cardiovascular: Rate/Rhythm: + tachycardic Gastrointestinal (Abdomen): Inspection/Auscultation: + abdomen distended and normal bowel sounds Percussion/Palpation: + abdomen tender and abdomen soft; no guarding and abdomen not rigid Skin: no rashes, warm and dry Results & Data ([facility]) Vital Signs (Past 12 Hours) Vital Signs Temp Pulse Pulse Pulse Resp BP BP 12/09/19 09:25 37.1 C 107 H 20 150/100 H 12/09/19 08:00 109 H 20 12/09/19 06:50 101 H 19 140/96 12/09/19 06:49 105 H 21 12/09/19 06:45 104 H 20 12/09/19 06:41 100 H 18 140/96 12/09/19 06:15 12/09/19 06:00 106 H 96 H 20 168/113 H 12/09/19 05:55 116 H 19 168/113 H 12/09/19 05:11 12/09/19 04:51 104 H 20 12/09/19 04:16 36.9 C 111 H 20 131/85 Pulse Ox 12/09/19 09:25 94 12/09/19 08:00 12/09/19 06:50 12/09/19 06:49 12/09/19 06:45 12/09/19 06:41 96 12/09/19 06:15 96 12/09/19 06:00 96 12/09/19 05:55 12/09/19 05:11 98 12/09/19 04:51 12/09/19 04:16 95 Laboratory Results 12/09/19 12/09/19 12/09/19 Range/Units 09:33 09:33 04:59 WBC (4.8-10.8) K/uL RBC (4.2-5.4) M/uL Hgb (12.0-16.0) g/dL Hct (37-47) % MCV (80-100) fL MCH (25-34) pg MCHC (32-36) g/dL RDW Std Deviation (36.4-46.3) fL RDW Coeff of Suzanne (11.5-14.5) % Plt Count (130-400) K/uL MPV (7.4-10.4) fL Immature Gran % (Auto) % Neut % (Auto) % Lymph % (Auto) % [place] % (Auto) % Eos % (Auto) % Baso % (Auto) % Immature Gran # (Auto) (0.00-0.02) K/uL Neut # (Auto) (1.4-6.5) K/uL Lymph # (Auto) (1.2-3.4) K/uL [place] # (Auto) (0.11-0.59) K/uL Eos # (Auto) (0-0.5) K/uL Baso # (Auto) (0-0.2) K/uL Tear Drop Cells PT (9.0-12.0) Seconds INR (0.9-1.1) APTT (21.0-31.0) Seconds PTT Ratio Sodium (136-145) mmol/L Potassium (3.5-5.1) mmol/L Chloride (98-107) mmol/L Carbon Dioxide (21-32) mmol/L Anion Gap (3-11) BUN (7-18) mg/dl Creatinine (0.6-1.2) mg/dl Est Cr Clr Drug Dosing Est GFR ( Amer) Est GFR (Non-Af Amer) BUN/Creatinine Ratio (10-20) Glucose (70-99) mg/dl Calcium (8.5-10.1) mg/dl Phosphorus 2.1 L (2.5-4.9) mg/dl Magnesium (1.8-2.4) mg/dl Total Bilirubin (0.2-1) mg/dl AST (15-37) U/L ALT (12-78) U/L Alkaline Phosphatase (45-117) U/L Total Protein (6.4-8.2) gm/dl Albumin (3.4-5.0) gm/dl Globulin (2.5-4.0) gm/dl Albumin/Globulin Ratio (0.9-2) Lipase (73-393) U/L Ethyl Alcohol mg/dL (0-3) mg/dl Hepatitis A IgM Ab Pending Hep Bs Antigen Pending Hep B Core IgM Ab Pending Hepatitis C Antibody Pending 12/09/19 12/09/19 12/09/19 Range/Units 04:59 04:59 04:59 WBC 2.45 L (4.8-10.8) K/uL RBC 3.93 L (4.2-5.4) M/uL Hgb 13.7 (12.0-16.0) g/dL Hct 40.2 (37-47) % MCV 102.3 H (80-100) fL MCH 34.9 H (25-34) pg MCHC 34.1 (32-36) g/dL RDW Std Deviation 46.9 H (36.4-46.3) fL RDW Coeff of Suzanne 12.6 (11.5-14.5) % Plt Count 100 L (130-400) K/uL MPV 9.3 (7.4-10.4) fL Immature Gran % (Auto) 0.4 % Neut % (Auto) 66.1 % Lymph % (Auto) 19.6 % [place] % (Auto) 13.1 % Eos % (Auto) 0.4 % Baso % (Auto) 0.4 % Immature Gran # (Auto) 0.01 (0.00-0.02) K/uL Neut # (Auto) 1.62 (1.4-6.5) K/uL Lymph # (Auto) 0.48 L (1.2-3.4) K/uL [place] # (Auto) 0.32 (0.11-0.59) K/uL Eos # (Auto) 0.01 (0-0.5) K/uL Baso # (Auto) 0.01 (0-0.2) K/uL Tear Drop Cells 1+ PT 11.3 (9.0-12.0) Seconds INR 1.1 (0.9-1.1) APTT 26.2 (21.0-31.0) Seconds PTT Ratio 0.9 Sodium 140 (136-145) mmol/L Potassium 3.6 (3.5-5.1) mmol/L Chloride 104 (98-107) mmol/L Carbon Dioxide 19 L (21-32) mmol/L Anion Gap 17.0 H (3-11) BUN 10 (7-18) mg/dl Creatinine 0.86 (0.6-1.2) mg/dl Est Cr Clr Drug Dosing Not Reportable Est GFR ( Amer) 95.2 Est GFR (Non-Af Amer) 82.2 BUN/Creatinine Ratio 12.2 (10-20) Glucose 102 H (70-99) mg/dl Calcium 10.3 H (8.5-10.1) mg/dl Phosphorus (2.5-4.9) mg/dl Magnesium 1.8 (1.8-2.4) mg/dl Total Bilirubin 1.2 H (0.2-1) mg/dl AST 335 H (15-37) U/L ALT 172 H (12-78) U/L Alkaline Phosphatase 134 H (45-117) U/L Total Protein 7.6 (6.4-8.2) gm/dl Albumin 4.2 (3.4-5.0) gm/dl Globulin 3.4 (2.5-4.0) gm/dl Albumin/Globulin Ratio 1.2 (0.9-2) Lipase 2802 H (73-393) U/L Ethyl Alcohol mg/dL (0-3) mg/dl Hepatitis A IgM Ab Hep Bs Antigen Hep B Core IgM Ab Hepatitis C Antibody 12/09/19 Range/Units 04:59 WBC (4.8-10.8) K/uL RBC (4.2-5.4) M/uL Hgb (12.0-16.0) g/dL Hct (37-47) % MCV (80-100) fL MCH (25-34) pg MCHC (32-36) g/dL RDW Std Deviation (36.4-46.3) fL RDW Coeff of Suzanne (11.5-14.5) % Plt Count (130-400) K/uL MPV (7.4-10.4) fL Immature Gran % (Auto) % Neut % (Auto) % Lymph % (Auto) % [place] % (Auto) % Eos % (Auto) % Baso % (Auto) % Immature Gran # (Auto) (0.00-0.02) K/uL Neut # (Auto) (1.4-6.5) K/uL Lymph # (Auto) (1.2-3.4) K/uL [place] # (Auto) (0.11-0.59) K/uL Eos # (Auto) (0-0.5) K/uL Baso # (Auto) (0-0.2) K/uL Tear Drop Cells PT (9.0-12.0) Seconds INR (0.9-1.1) APTT (21.0-31.0) Seconds PTT Ratio Sodium (136-145) mmol/L Potassium (3.5-5.1) mmol/L Chloride (98-107) mmol/L Carbon Dioxide (21-32) mmol/L Anion Gap (3-11) BUN (7-18) mg/dl Creatinine (0.6-1.2) mg/dl Est Cr Clr Drug Dosing Est GFR ( Amer) Est GFR (Non-Af Amer) BUN/Creatinine Ratio (10-20) Glucose (70-99) mg/dl Calcium (8.5-10.1) mg/dl Phosphorus (2.5-4.9) mg/dl Magnesium (1.8-2.4) mg/dl Total Bilirubin (0.2-1) mg/dl AST (15-37) U/L ALT (12-78) U/L Alkaline Phosphatase (45-117) U/L Total Protein (6.4-8.2) gm/dl Albumin (3.4-5.0) gm/dl Globulin (2.5-4.0) gm/dl Albumin/Globulin Ratio (0.9-2) Lipase (73-393) U/L Ethyl Alcohol mg/dL 21.0 H (0-3) mg/dl Hepatitis A IgM Ab Hep Bs Antigen Hep B Core IgM Ab Hepatitis C Antibody
--- NOTE | 2019-12-09 10:29 | Ultrasound Report ---
US abdomen limited HISTORY: 44 years-old Female RUQ elevated lft r/o obstructive process acute right upper quadrant abd ominal pain COMPARISON: CTA of the chest 07/23/2019 TECHNIQUE: Multiple real-time sonographic images of the abdominal right upper quadrant were obtained assessing grayscale appearance and color flow FINDINGS: Limited exam secondary to patient unable to move into decubitus position. The pancreas is mostly obsc ured by bowel gas. Increased echogenicity of the liver with poor through transmission. Liver is enlar ged. No hepatic mass lesion or intrahepatic biliary ductal dilation. Normal common bile duct, 5 mm. U nremarkable gallbladder without wall thickening, shadowing cholelithiasis or pericholecystic fluid. S onographic Duckworth sign reported as negative. Imaged right kidney is unremarkable without hydronephrosis. IMPRESSION: 1. No cholelithiasis or sonographic evidence of acute cholecystitis. 2. No biliary ductal dilation. 3. Hepatomegaly with hepatic steatosis. ACT 112: Negative or not required by law. The above report was generated using voice recognition software. It may contain grammatical, syntax o r spelling errors. Electronically signed by: Guero Carney M.D. 12/09/2019 10:28 AM
[2019-12-09] MEDS: chlordiazePOXIDE HCl 25 MG CAP PO SCH ×3 (10:39→21:04)
[2019-12-09] MEDS: MULTIVITAMIN TAB PO SCH (10:52)
[2019-12-09] MEDS: FLUTICASONE/VILANTEROL 200/25MCG 14 PUFFS/INHALER INH SCH (10:52)
[2019-12-09] MEDS: LACTATED RINGER'S 1,000 ML IV SCH ×3 (11:14→21:04)
[2019-12-09 11:15] LABS: Appearance Urine Clear (Clear); Bacteria Urine Automated 1+ (Negative); Bilirubin Urine Negative (Negative); Blood Urine Trace (Negative); Color Urine Dark Yellow; Epithelial Cell Urine Auto >30 /lpf (0-5); Glucose Urine UA Negative (Negative); Ketones Urine 4+ (Negative); Leukocyte Esterase Urine 1+ (Negative); Nitrite Urine Negative (Negative); Protein Urine 2+ (Negative); Specific Gravity Urine 1.033 (1.000-1.030); Urobilinogen Urine Negative (Negative); WBC Urine Automated >30 /hpf (0-5)
[2019-12-09 12:22] LABS: Hepatitis B Surface Antigen Neg (Neg)
[2019-12-09 12:50] LABS: Hepatitis C IgG 13Yrs+Old_Rflx Neg (Neg)
--- NOTE | 2019-12-09 17:07 | Electrocardiogram Report ---
Test Reason : Blood Pressure : / mmHG Vent. Rate : 098 BPM Atrial Rate : 098 BPM P-R Int : 132 ms QRS Dur : 080 ms QT Int : 330 ms P-R-T Axes : 037 027 018 degrees QTc Int : 421 ms Normal sinus rhythm Normal ECG When compared with ECG of 08-DEC-2019 17:26, (unconfirmed) No significant change was found Confirmed by Arnold Schaefer ([id number]) on 12/09/2019 5:06:39 PM Referred By: REFERRED SELF Confirmed By:Faisal Schaefer
[2019-12-10] MEDS: LACTATED RINGER'S 1,000 ML IV SCH ×4 (02:04→23:17)
[2019-12-10] MEDS: chlordiazePOXIDE HCl 25 MG CAP PO SCH ×3 (03:27→17:27)
[2019-12-10 04:42] LABS: Hematocrit (blood only) 38.7 % (37-47); Mean Corpuscular Hgb Conc 33.6 g/dL (32-36); Mean Corpuscular Volume 104.3 fL (80-100); RDW Coefficient of Variation 12.7 % (11.5-14.5); RDW Standard Deviation 48.3 fL (36.4-46.3); Red Blood Count 3.71 M/uL (4.2-5.4); White Blood Count 2.94 K/uL (4.8-10.8)
[2019-12-10 05:06] LABS: Albumin Level 3.6 gm/dl (3.4-5.0); BUN Creatinine Ratio 8.5 (10-20); Calcium 9.6 mg/dl (8.5-10.1); Creatinine Clr Calc Pharmacy 93.4 ml/min; Est GFR (African American) 107.2; Est GFR (Non-African American) 92.5; Magnesium 1.9 mg/dl (1.8-2.4); Potassium 3.6 mmol/L (3.5-5.1)
[2019-12-10 05:18] LABS: Basophils # (auto) 0.03 K/uL (0-0.2); Eosinophils # (auto) 0.05 K/uL (0-0.5); Eosinophils % (auto) 1.7 %; Immature Granulocytes # (auto) 0.02 K/uL (0.00-0.02); Immature Granulocytes % (auto) 0.7 %; Lymphocytes # (auto) 0.94 K/uL (1.2-3.4); Monocytes # (auto) 0.37 K/uL (0.11-0.59); Monocytes % (auto) 12.6 %; Neutrophils # (auto) 1.53 K/uL (1.4-6.5); Platelet Count 96 K/uL (130-400); Platelet Estimate Decreased (Normal)
[2019-12-10 06:08] LABS: Albumin Globulin Ratio 1.1 (0.9-2); Bilirubin,Total 1.2 mg/dl (0.2-1); Globulin 3.4 gm/dl (2.5-4.0); Phosphorus 1.5 mg/dl (2.5-4.9)
[2019-12-10] MEDS ORDERED: POTASSIUM PHOS 3 MMOL/1 ML INFUSION IV STA (06:17)
[2019-12-10] MEDS ORDERED: POTASSIUM PHOSPHATE 40 MMOL in SODIUM CHLORIDE 0.9% 1000ML 1,000 ML IV ONE (06:30)
--- NOTE | 2019-12-10 07:11 | Hospitalist Progress Note ---
Date of Service December 10, 2019 Assessment & Plan (1) Alcohol withdrawal: This is a 44-year-old female who has significant past medical history of alcohol abuse, asthma, MDD, panic disorder who presents to ED secondary to alcohol withdrawal symptoms x1 day. In ED patient was hemodynamically stable, but was tachycardic. She did receive 1 L IVF, oral thiamine and folic acid along with a total of 4 mg of IV Ativan. She also received IV Zofran with improvement of nausea. She has not had any episodes of emesis while in ED. Lab work notable for leukopenia and thrombocytopenia with a white count of 2.45k and platelet count of 100,000 consistent with alcohol abuse. Further lab abnormalities include AST 335, ALT 172, alk phos 134, total bili 1.2, Phos 2.1, mag 1.8, K 3.6, lipase 2802, ethyl alcohol 21. PCU AWSS protocol Banana bag on admission, then continue with thiamine and folate supplement Librium Taper IV Ativan - Active protocol NPO except meds seizure precautions LR @ 200cc/hr case management consulted (2) Acute pancreatitis: elevated lipase 2802, presents with n/v No abdominal pain likely 2/2 to significant ETOH abuse given elevated LFTS ordered RUQ u/s to rule out obstructive process NPO IVF LR @ 200 cc/h follow lipase GI consulted Lipase increased from yesterday, GI recommends to obtain MRCP (3) Alcoholic hepatitis: elevated LFTS AST 335, ALT 172, alk phos 134, total bilirubin 1.2 Likely in setting of alcohol abuse AST greater than ALT Given evidence of pancreatitis, obtained liver ultrasound to rule out obstructive process Hepatitis panel ordered LFTs trending down Liver US - No cholelithiasis or sonographic evidence of acute cholecystitis. No biliary ductal dilation. Hepatomegaly with hepatic steatosis. (4) Electrolyte abnormality: Hypophosphatemia, Phos 2.1, replete and monitor Potassium 3.6 - monitor daily need for repletion Banana bag ordered in ED; then Maintenance LR @ 200/hr (5) Depression: Patient previously had been on Paxil and trazodone States has not been taking for the past 2 to 3-weeks Currently denies depressed mood, SI or HI; however per ED note day prior, as well as encounters in [facility] appears she has been struggling with anxiety and depression since development of pandemic Low threshold for psych consult (6) Asthma: No acute exacerbation Continue Advair, PRN albuterol (7) DVT prophylaxis: SCDs, teds Disposition: PCU, case management consulted for consideration for alcohol rehab Follow-up: PCP Dr. Whatley upon discharge Admission and Anticipated Discharge Date Admission Date: December 09, 2019 Subjective Lipase is increased from yesterday. LFTs trending down. ABD US obtained - No cholelithiasis or sonographic evidence of acute cholecystitis. No biliary ductal dilation. Hepatomegaly with hepatic steatosis. Loose stools reported by nursing staff. Patient sitting up in a chair, in no acute distress. Tremor seems to be decreased from yesterday. Patient is able to answer questions appropriately. Says that she is feeling better, and hungry. Patient has been on IV fluids and n.p.o. due to elevated lipase. No fever, chills, chest pain, shortness of breath. Or vomiting. Liver ultrasound obtained, as above. Lipase however elevated from yesterday. Discussed with GI at the bedside, plan for MRCP. Review of Systems Review of Systems: All systems reviewed & are unremarkable except as noted in HPI & below Constitutional: no fever and no chills Respiratory: no cough and no dyspnea Cardiovascular: no chest pain and no palpitations Gastrointestinal: + diarrhea/loose stools; no abdominal pain, no nausea and no vomiting Neurologic: Tremor seems to be improved Physical Exam Physical Exam: Constitutional: WD/WN, middle-aged female sitting up in a chair, in no acute distress, less tremulous than yesterday Head: Normocephalic, Atraumatic Eyes: PERRL, EOMI, normal, anicteric sclerae ENMT: external ear and nose normal, oropharynx normal dry mucous membranes Neck: trachea midline, no thyromegaly normal visual inspection Respiratory: normal respiratory effort, lungs clear to auscultation, no wheeze, rales, rhonchi. Normal insp/exp effort, no accessory muscle use Cardiovascular: Tachycardic rate, regular rhythm,no murmur, no edema Vessels: no JVD or carotid bruit Chest: normal inspection of chest Abdomen: mild distension of abd, normal bowel sounds, soft, nontender to palpation Musculoskeletal: no cyanosis or clubbing, extremities motor strength 5/5, moves extremities spontaneously Skin: no rashes, warm and dry, normal turgor Neurologic: + b/l upper ext tremors (decreased from prior exam), PERRL, EOMI, no face palsy, no dysarthria CN's II-XI intact bilaterally and moves all extremities Psychiatric: A+Ox3, euthymic affect Results & Data Results & Data ([facility]) Vital Signs (Past 12 Hours) Vital Signs Temp Pulse Pulse Resp BP BP Pulse Ox 12/10/19 03:28 36.9 C 95 H 20 148/97 H 96 12/10/19 01:57 84 12/10/19 00:00 36.9 C 88 20 125/92 97 12/09/19 19:48 36.9 C 79 20 123/85 93 12/09/19 19:42 95 H Laboratory Results 12/10/19 12/10/19 12/09/19 Range/Units 04:11 04:11 Unknown WBC 2.94 L (4.8-10.8) K/uL RBC 3.71 L (4.2-5.4) M/uL Hgb 13.0 (12.0-16.0) g/dL Hct 38.7 (37-47) % MCV 104.3 H (80-100) fL MCH 35.0 H (25-34) pg MCHC 33.6 (32-36) g/dL RDW Std Deviation 48.3 H (36.4-46.3) fL RDW Coeff of Suzanne 12.7 (11.5-14.5) % Plt Count 96 L (130-400) K/uL MPV 10.0 (7.4-10.4) fL Immature Gran % (Auto) 0.7 % Neut % (Auto) 52.0 % Lymph % (Auto) 32.0 % [place] % (Auto) 12.6 % Eos % (Auto) 1.7 % Baso % (Auto) 1.0 % Immature Gran # (Auto) 0.02 (0.00-0.02) K/uL Neut # (Auto) 1.53 (1.4-6.5) K/uL Lymph # (Auto) 0.94 L (1.2-3.4) K/uL [place] # (Auto) 0.37 (0.11-0.59) K/uL Eos # (Auto) 0.05 (0-0.5) K/uL Baso # (Auto) 0.03 (0-0.2) K/uL Platelet Estimate Decreased L (Normal) Sodium 138 (136-145) mmol/L Potassium 3.6 (3.5-5.1) mmol/L Chloride 105 (98-107) mmol/L Carbon Dioxide 21 (21-32) mmol/L Anion Gap 12.0 H (3-11) BUN 7 (7-18) mg/dl Creatinine 0.78 (0.6-1.2) mg/dl Est Cr Clr Drug Dosing 93.4 ml/min Est GFR ( Amer) 107.2 Est GFR (Non-Af Amer) 92.5 BUN/Creatinine Ratio 8.5 L (10-20) Glucose 73 (70-99) mg/dl Calcium 9.6 (8.5-10.1) mg/dl Phosphorus 1.5 L* (2.5-4.9) mg/dl Magnesium 1.9 (1.8-2.4) mg/dl Total Bilirubin 1.2 H (0.2-1) mg/dl AST 205 H (15-37) U/L ALT 132 H (12-78) U/L Alkaline Phosphatase 119 H (45-117) U/L Total Protein 7.0 (6.4-8.2) gm/dl Albumin 3.6 (3.4-5.0) gm/dl Globulin 3.4 (2.5-4.0) gm/dl Albumin/Globulin Ratio 1.1 (0.9-2) Urine Color Urine Appearance (Clear) Urine pH (4.5-7.5) Ur Specific Dickinson (1.000-1.030) Urine Protein (Negative) Urine Glucose (UA) (Negative) Urine Ketones (Negative) Urine Blood (Negative) Urine Nitrite (Negative) Urine Bilirubin (Negative) Urine Urobilinogen (Negative) Ur Leukocyte Esterase (Negative) Urine WBC (Auto) (0-5) /hpf Urine RBC (Auto) (0-4) /hpf U Hyaline Cast (Auto) (0-5) /lpf U Epithel Cells (Auto) (0-5) /lpf Urine Bacteria (Auto) (Negative) POC Ur Test Nasal Screen MRSA (PCR) Positive A (Negative) Hepatitis A IgM Ab Hep Bs Antigen Hep B Core IgM Ab Hepatitis C Antibody 12/09/19 12/09/19 12/09/19 Range/Units 11:26 11:26 10:55 WBC (4.8-10.8) K/uL RBC (4.2-5.4) M/uL Hgb (12.0-16.0) g/dL Hct (37-47) % MCV (80-100) fL MCH (25-34) pg MCHC (32-36) g/dL RDW Std Deviation (36.4-46.3) fL RDW Coeff of Suzanne (11.5-14.5) % Plt Count (130-400) K/uL MPV (7.4-10.4) fL Immature Gran % (Auto) % Neut % (Auto) % Lymph % (Auto) % [place] % (Auto) % Eos % (Auto) % Baso % (Auto) % Immature Gran # (Auto) (0.00-0.02) K/uL Neut # (Auto) (1.4-6.5) K/uL Lymph # (Auto) (1.2-3.4) K/uL [place] # (Auto) (0.11-0.59) K/uL Eos # (Auto) (0-0.5) K/uL Baso # (Auto) (0-0.2) K/uL Platelet Estimate (Normal) Sodium (136-145) mmol/L Potassium (3.5-5.1) mmol/L Chloride (98-107) mmol/L Carbon Dioxide (21-32) mmol/L Anion Gap (3-11) BUN (7-18) mg/dl Creatinine (0.6-1.2) mg/dl Est Cr Clr Drug Dosing ml/min Est GFR ( Amer) Est GFR (Non-Af Amer) BUN/Creatinine Ratio (10-20) Glucose (70-99) mg/dl Calcium (8.5-10.1) mg/dl Phosphorus (2.5-4.9) mg/dl Magnesium (1.8-2.4) mg/dl Total Bilirubin (0.2-1) mg/dl AST (15-37) U/L ALT (12-78) U/L Alkaline Phosphatase (45-117) U/L Total Protein (6.4-8.2) gm/dl Albumin (3.4-5.0) gm/dl Globulin (2.5-4.0) gm/dl Albumin/Globulin Ratio (0.9-2) Urine Color Dark Yellow Urine Appearance Clear (Clear) Urine pH 6.0 (4.5-7.5) Ur Specific Dickinson 1.033 H (1.000-1.030) Urine Protein 2+ H (Negative) Urine Glucose (UA) Negative (Negative) Urine Ketones 4+ H (Negative) Urine Blood Trace H (Negative) Urine Nitrite Negative (Negative) Urine Bilirubin Negative (Negative) Urine Urobilinogen Negative (Negative) Ur Leukocyte Esterase 1+ H (Negative) Urine WBC (Auto) >30 H (0-5) /hpf Urine RBC (Auto) 10-30 H (0-4) /hpf U Hyaline Cast (Auto) 10-30 H (0-5) /lpf U Epithel Cells (Auto) >30 H (0-5) /lpf Urine Bacteria (Auto) 1+ H (Negative) POC Ur Test Nasal Screen MRSA (PCR) (Negative) Hepatitis A IgM Ab Pending Hep Bs Antigen Neg Hep B Core IgM Ab Pending Hepatitis C Antibody Neg 12/09/19 12/09/19 12/09/19 Range/Units 10:55 09:33 09:33 WBC (4.8-10.8) K/uL RBC (4.2-5.4) M/uL Hgb (12.0-16.0) g/dL Hct (37-47) % MCV (80-100) fL MCH (25-34) pg MCHC (32-36) g/dL RDW Std Deviation (36.4-46.3) fL RDW Coeff of Suzanne (11.5-14.5) % Plt Count (130-400) K/uL MPV (7.4-10.4) fL Immature Gran % (Auto) % Neut % (Auto) % Lymph % (Auto) % [place] % (Auto) % Eos % (Auto) % Baso % (Auto) % Immature Gran # (Auto) (0.00-0.02) K/uL Neut # (Auto) (1.4-6.5) K/uL Lymph # (Auto) (1.2-3.4) K/uL [place] # (Auto) (0.11-0.59) K/uL Eos # (Auto) (0-0.5) K/uL Baso # (Auto) (0-0.2) K/uL Platelet Estimate (Normal) Sodium (136-145) mmol/L Potassium (3.5-5.1) mmol/L Chloride (98-107) mmol/L Carbon Dioxide (21-32) mmol/L Anion Gap (3-11) BUN (7-18) mg/dl Creatinine (0.6-1.2) mg/dl Est Cr Clr Drug Dosing ml/min Est GFR ( Amer) Est GFR (Non-Af Amer) BUN/Creatinine Ratio (10-20) Glucose (70-99) mg/dl Calcium (8.5-10.1) mg/dl Phosphorus (2.5-4.9) mg/dl Magnesium (1.8-2.4) mg/dl Total Bilirubin (0.2-1) mg/dl AST (15-37) U/L ALT (12-78) U/L Alkaline Phosphatase (45-117) U/L Total Protein (6.4-8.2) gm/dl Albumin (3.4-5.0) gm/dl Globulin (2.5-4.0) gm/dl Albumin/Globulin Ratio (0.9-2) Urine Color Urine Appearance (Clear) Urine pH (4.5-7.5) Ur Specific Dickinson (1.000-1.030) Urine Protein (Negative) Urine Glucose (UA) (Negative) Urine Ketones (Negative) Urine Blood (Negative) Urine Nitrite (Negative) Urine Bilirubin (Negative) Urine Urobilinogen (Negative) Ur Leukocyte Esterase (Negative) Urine WBC (Auto) (0-5) /hpf Urine RBC (Auto) (0-4) /hpf U Hyaline Cast (Auto) (0-5) /lpf U Epithel Cells (Auto) (0-5) /lpf Urine Bacteria (Auto) (Negative) POC Ur Test Cancelled Nasal Screen MRSA (PCR) (Negative) Hepatitis A IgM Ab Cancelled Hep Bs Antigen Cancelled Hep B Core IgM Ab Cancelled Hepatitis C Antibody Cancelled 12/09/19 Range/Units 04:59 WBC (4.8-10.8) K/uL RBC (4.2-5.4) M/uL Hgb (12.0-16.0) g/dL Hct (37-47) % MCV (80-100) fL MCH (25-34) pg MCHC (32-36) g/dL RDW Std Deviation (36.4-46.3) fL RDW Coeff of Suzanne (11.5-14.5) % Plt Count (130-400) K/uL MPV (7.4-10.4) fL Immature Gran % (Auto) % Neut % (Auto) % Lymph % (Auto) % [place] % (Auto) % Eos % (Auto) % Baso % (Auto) % Immature Gran # (Auto) (0.00-0.02) K/uL Neut # (Auto) (1.4-6.5) K/uL Lymph # (Auto) (1.2-3.4) K/uL [place] # (Auto) (0.11-0.59) K/uL Eos # (Auto) (0-0.5) K/uL Baso # (Auto) (0-0.2) K/uL Platelet Estimate (Normal) Sodium (136-145) mmol/L Potassium (3.5-5.1) mmol/L Chloride (98-107) mmol/L Carbon Dioxide (21-32) mmol/L Anion Gap (3-11) BUN (7-18) mg/dl Creatinine (0.6-1.2) mg/dl Est Cr Clr Drug Dosing ml/min Est GFR ( Amer) Est GFR (Non-Af Amer) BUN/Creatinine Ratio (10-20) Glucose (70-99) mg/dl Calcium (8.5-10.1) mg/dl Phosphorus 2.1 L (2.5-4.9) mg/dl Magnesium (1.8-2.4) mg/dl Total Bilirubin (0.2-1) mg/dl AST (15-37) U/L ALT (12-78) U/L Alkaline Phosphatase (45-117) U/L Total Protein (6.4-8.2) gm/dl Albumin (3.4-5.0) gm/dl Globulin (2.5-4.0) gm/dl Albumin/Globulin Ratio (0.9-2) Urine Color Urine Appearance (Clear) Urine pH (4.5-7.5) Ur Specific Dickinson (1.000-1.030) Urine Protein (Negative) Urine Glucose (UA) (Negative) Urine Ketones (Negative) Urine Blood (Negative) Urine Nitrite (Negative) Urine Bilirubin (Negative) Urine Urobilinogen (Negative) Ur Leukocyte Esterase (Negative) Urine WBC (Auto) (0-5) /hpf Urine RBC (Auto) (0-4) /hpf U Hyaline Cast (Auto) (0-5) /lpf U Epithel Cells (Auto) (0-5) /lpf Urine Bacteria (Auto) (Negative) POC Ur Test Nasal Screen MRSA (PCR) (Negative) Hepatitis A IgM Ab Hep Bs Antigen Hep B Core IgM Ab Hepatitis C Antibody Medications Administered Current Inpatient Medications Acetaminophen (Tylenol) 650 mg PO Q4H PRN PRN Reason: Pain or Fever Stop: 01/08/20 09:26 Al Hydrox/Mg Hydrox/Simethicone (Maalox) 15 ml PO Q4H PRN PRN Reason: Dyspepsia Stop: 01/08/20 09:26 Albuterol (Ventolin Hfa) 2 puffs INH Q6H PRN PRN Reason: Shortness Of Breath Stop: 01/08/20 09:26 Chlordiazepoxide HCl (Librium) 50 mg PO Q6H ARMANI; Taper Stop: 12/12/19 09:59 Last Admin: 12/10/19 03:27 Dose: 50 mg Documented by: Chlordiazepoxide HCl (Librium) 10 mg PO Q12H ARMANI Stop: 12/12/19 22:01 Fluticasone/Vilanterol (Breo Ellipta 200/25 Mcg Inh) 1 puffs INH QAM ARMANI; Protocol Stop: 01/08/20 09:59 Last Admin: 12/09/19 10:52 Dose: 1 puffs Documented by: Folic Acid (Folvite) 1 mg PO QAM ARMANI Stop: 01/09/20 08:59 Lactated Ringer's (Lr) 1,000 mls @ 200 mls/hr IV .Q5H ARMANI Stop: 01/08/20 09:26 Last Admin: 12/10/19 02:04 Dose: 200 mls/hr Documented by: Lorazepam (Ativan) 1 mg in 2 mls @ 2 mls/min IV UD PRN; Protocol PRN Reason: EtOH Withdrawl AWSS Score 6,7 Stop: 01/08/20 09:26 Lorazepam (Ativan) 2 mg in 4 mls @ 4 mls/min IV UD PRN; Protocol PRN Reason: EtOH Withdrawl AWSS Score 8,9 Stop: 01/08/20 09:26 Lorazepam (Ativan) 3 mg in 6 mls @ 4 mls/min IV ONCE PRN; Protocol PRN Reason: EtOH Withdrawl AWSS Score >=10 Stop: 01/08/20 09:26 Potassium Phosphate 40 mmol/ (Sodium Chloride) 1,013.3333 mls @ 150 mls/hr IV ONE ONE Stop: 12/10/19 13:15 Last Admin: 12/10/19 06:44 Dose: 150 mls/hr Documented by: Magnesium Hydroxide (Milk Of Magnesia) 30 ml PO Q12H PRN PRN Reason: Constipation Stop: 01/08/20 09:26 Multivitamins (Multivitamin Tab) 1 tab PO [facility] Stop: 01/08/20 09:26 Last Admin: 12/09/19 10:52 Dose: 1 tab Documented by: Ondansetron HCl (Zofran) 4 mg IV Q6H PRN PRN Reason: Nausea Stop: 01/08/20 09:26 Polyethylene Glycol (Miralax Powder Packet) 17 gm PO DAILY PRN PRN Reason: Constipation Stop: 01/08/20 09:26 Thiamine HCl (Vitamin B-1) 100 mg PO QAM [facility] Stop: 01/09/20 08:59 (1) Depression Depression Type: unspecified Qualified Code(s): F32.9 - Major depressive disorder, single episode, unspecified (2) Alcoholic hepatitis Ascites presence: without ascites Qualified Code(s): K70.10 - Alcoholic hepatitis without ascites (3) Asthma Asthma complication type: unspecified Asthma persistence: unspecified Asthma severity: unspecified severity Qualified Code(s): J45.909 - Unspecified asthma, uncomplicated
--- NOTE | 2019-12-10 08:56 | Gastroenterology Progress Note ---
Date of Service December 10, 2019 Assessment & Plan (1) Elevated LFTs: 44-year-old female who has significant past medical history of alcohol abuse, asthma, MDD, panic disorder who presents to ED secondary to alcohol withdrawal symptoms x 1 day. hemodynamically stable w/ elevated transaminases and lipase. Biliary imaging pending. She deneis abd pain but does suggests decreased appetite x 1 week and vomiting last evening. LFTs downtrending, ABD US without stones or biliary dilation but does show hepatomegaly and hepatic steatosis - ETOH withdrawal protocol - ETOH cessation roasterman was discussed - No GI contraindication to clear liquid diet then advance to low fat - Maintenance fluids - Antiemetics PRN - Analgesia PRN - Acute hep panel - Trend LFTs - DF < 32 - Will sign off. Please contact the director of corporate communications physician over the weekend with any questions or concerns. Thank you for allowing us to participate in the care of this patient. Please see addendum below with additional recommendation from my supervising physician. (2) Alcohol withdrawal: (3) Alcohol abuse: (4) Acute pancreatitis: Admission and Anticipated Discharge Date Admission Date: December 09, 2019 Supervising Physician Co-Signing Physician Notes I performed a history and physical examination of the patient today, including specifically on physical exam - soft abdomen. I have discussed the patient's management with the advanced practitioner. Please refer to the nurse practitioner's note for the documented findings and plan of care. Alcoholic hepatitis with pancreatitis. Clinically improved. Obtain MRCP. Advance diet. Recall GI if needed. Subjective Pt was seen and evaluated, chart reviewed. Feeling improved this AM. Some nausea, no vomiting. No abdominal pain. LFTs trending down. ABD US reviewed. No cholelithiasis or sonographic evidence of acute cholecystitis. No biliary ductal dilation. Hepatomegaly with hepatic steatosis. Review of Systems Constitutional: no fever, no chills and no fatigue Respiratory: no cough and no dyspnea Cardiovascular: no chest pain and no dyspnea Gastrointestinal: + nausea; no abdominal pain, no coffee ground emesis, no hematemesis, no diarrhea/loose stools, no blood in stools and no melena Physical Exam Constitutional: + ill appearing; no acute distress Neck: trachea midline Respiratory: normal respiratory effort Cardiovascular: Rate/Rhythm: + tachycardic Gastrointestinal (Abdomen): Inspection/Auscultation: + abdomen distended and normal bowel sounds Percussion/Palpation: + abdomen tender and abdomen soft; no guarding and abdomen not rigid Skin: no rashes, warm and dry Results & Data ([facility]) Vital Signs (Past 12 Hours) Vital Signs Temp Pulse Pulse Resp BP BP Pulse Ox 12/10/19 03:28 36.9 C 95 H 20 148/97 H 96 12/10/19 01:57 84 12/10/19 00:00 36.9 C 88 20 125/92 97
[2019-12-10] MEDS: FOLIC ACID 1 MG TAB PO SCH (09:03)
[2019-12-10] MEDS: FLUTICASONE/VILANTEROL 200/25MCG 14 PUFFS/INHALER INH SCH (09:03)
[2019-12-10] MEDS: THIAMINE HCL 100 MG TAB PO SCH (09:03)
[2019-12-10] MEDS: MULTIVITAMIN TAB PO SCH (09:03)
[2019-12-10 09:59] LABS: Bilirubin Direct 0.5 mg/dl (0-0.2)
[2019-12-10] MEDS ORDERED: LOPERAMIDE HCL 2 MG CAP PO SCH (11:00)
[2019-12-10 13:39] LABS: Hepatitis A Antibody IgM NON-REACTIVE (NON-REACTIVE); Hepatitis B Core Antibody IgM NON-REACTIVE (NON-REACTIVE)
[2019-12-10] MEDS: LORazepam 2 MG/4 ML VIAL IV PRN (20:12)
[2019-12-11] MEDS: LORazepam 2 MG/4 ML VIAL IV PRN
--- NOTE | 2019-12-11 00:49 | Magnetic Resonance Report ---
MRCP CLINICAL HISTORY: Alcoholic hepatitis and pancreatitis. COMPARISON STUDY: Abdominal ultrasound dated 12/09/2019. TECHNIQUE: Abdominal MRCP is performed using various T1 and T2-weighted sequences in the axial and co caitie planes. IV contrast was not administered for this examination. 3-D reformats are created and as sessed. FINDINGS: The gallbladder is normal in appearance. No gallstones are identified. There is no intra or extrahepa tic biliary ductal dilatation. The common bile duct measures up to 3 mm in diameter. There are no otis ling defects to suggest choledocholithiasis. The pancreatic duct is normal in caliber. The liver is enlarged measuring 22 cm in length. Severe steatosis was shown by ultrasound. The unenha nced adrenal glands, kidneys, pancreas, and spleen are grossly normal. No peripancreatic stranding or fluid is identified to suggest pancreatitis. There is no upper abdominal ascites. The abdominal aort a is normal in caliber. No bowel obstruction is seen. Trace pleural effusions are noted. The bony str uctures are normal as imaged. IMPRESSION: 1. Unremarkable MRCP. 2. Hepatomegaly and hepatic steatosis. 3. There is no MRI evidence of acute pancreatitis. 4. Trace pleural effusions. Electronically signed by: Randell Lo M.D. 12/11/2019 12:48 AM
[2019-12-11] MEDS: chlordiazePOXIDE HCl 25 MG CAP PO SCH ×3 (01:25→18:06)
[2019-12-11] MEDS: LACTATED RINGER'S 1,000 ML IV SCH ×4 (04:27→18:36)
[2019-12-11] MEDS: LORazepam 1 MG/2 ML VIAL IV PRN ×3 (08:08→18:05)
[2019-12-11] MEDS: FOLIC ACID 1 MG TAB PO SCH (08:09)
[2019-12-11] MEDS: FLUTICASONE/VILANTEROL 200/25MCG 14 PUFFS/INHALER INH SCH (08:09)
[2019-12-11] MEDS: THIAMINE HCL 100 MG TAB PO SCH (08:09)
[2019-12-11] MEDS: MULTIVITAMIN TAB PO SCH (08:09)
[2019-12-11 08:26] LABS: Hematocrit (blood only) 36.2 % (37-47); Mean Corpuscular Hemoglobin 34.8 pg (25-34); Mean Corpuscular Hgb Conc 33.1 g/dL (32-36); Mean Corpuscular Volume 104.9 fL (80-100); Mean Platelet Volume 10.6 fL (7.4-10.4); Nucleated RBC # (auto) 0.03 K/uL (0-0); Nucleated RBC % (auto) 1.1 %; Platelet Count 102 K/uL (130-400); RDW Coefficient of Variation 12.6 % (11.5-14.5); RDW Standard Deviation 47.8 fL (36.4-46.3); Red Blood Count 3.45 M/uL (4.2-5.4); White Blood Count 2.65 K/uL (4.8-10.8)
[2019-12-11 08:35] LABS: Albumin Level 3.3 gm/dl (3.4-5.0); BUN Creatinine Ratio 4.2 (10-20); Calcium 9.7 mg/dl (8.5-10.1); Creatinine Clr Calc Pharmacy 98.5 ml/min; Est GFR (African American) 114.2; Est GFR (Non-African American) 98.5; Globulin 3.5 gm/dl (2.5-4.0); Phosphorus 2.9 mg/dl (2.5-4.9); Total Protein 6.8 gm/dl (6.4-8.2)
[2019-12-11 09:07] LABS: Potassium 3.6 mmol/L (3.5-5.1)
[2019-12-11 09:12] LABS: Magnesium 1.5 mg/dl (1.8-2.4)
[2019-12-11] MEDS ORDERED: POTASSIUM CHLORIDE 20 MEQ TABCR PO STA ×2 (09:56→12:04)
[2019-12-11] MEDS ORDERED: MAGNESIUM SULFATE / D5W 1 GM/100 ML BAG IV ONE (10:00)
--- NOTE | 2019-12-11 10:26 | Hospitalist Progress Note ---
Date of Service December 11, 2019 Assessment & Plan (1) Alcohol withdrawal: This is a 44-year-old female who has significant past medical history of alcohol abuse, asthma, MDD, panic disorder who presents to ED secondary to alcohol withdrawal symptoms x1 day. In ED patient was hemodynamically stable, but was tachycardic. She did receive 1 L IVF, oral thiamine and folic acid along with a total of 4 mg of IV Ativan. She also received IV Zofran with improvement of nausea. She has not had any episodes of emesis while in ED. Lab work notable for leukopenia and thrombocytopenia with a white count of 2.45k and platelet count of 100,000 consistent with alcohol abuse. Further lab abnormalities include AST 335, ALT 172, alk phos 134, total bili 1.2, Phos 2.1, mag 1.8, K 3.6, lipase 2802, ethyl alcohol 21. PCU AWSS protocol Banana bag on admission, then continue with thiamine and folate supplement Librium Taper, still requiring Librium and Ativan IV Ativan - Active protocol NPO except meds seizure precautions LR @ 200cc/hr case management consulted (2) Acute pancreatitis: elevated lipase 2802, presents with n/v No abdominal pain likely 2/2 to significant ETOH abuse given elevated LFTS ordered RUQ u/s to rule out obstructive process NPO IVF LR @ 200 cc/h follow lipase GI consulted Lipase increased from yesterday, GI recommends to obtain MRCP MRCP negative for pancreatitis, overall unremarkable study (3) Alcoholic hepatitis: elevated LFTS AST 335, ALT 172, alk phos 134, total bilirubin 1.2 Likely in setting of alcohol abuse AST greater than ALT Given evidence of pancreatitis, obtained liver ultrasound to rule out obstructive process Acute hepatitis panel -negative LFTs trending down Liver US - No cholelithiasis or sonographic evidence of acute cholecystitis. No biliary ductal dilation. Hepatomegaly with hepatic steatosis. (4) Electrolyte abnormality: Hypophosphatemia, Phos 2.1, replete and monitor Hypomagnesemia, mag 1.5, likely due to IV fluids and n.p.o. status, replete and monitor Mild hypokalemia, goal potassium over 4, replete and monitor Banana bag ordered in ED; then Maintenance LR @ 200/hr (5) Depression: Patient previously had been on Paxil and trazodone States has not been taking for the past 2 to 3-weeks Currently denies depressed mood, SI or HI; however per ED note day prior, as well as encounters in [facility] appears she has been struggling with anxiety and depression since development of pandemic Low threshold for psych consult (6) Asthma: No acute exacerbation Continue Advair, PRN albuterol (7) DVT prophylaxis: SCDs, teds Disposition: PCU, case management consulted for consideration for alcohol rehab Follow-up: PCP Dr. Whatley upon discharge Admission and Anticipated Discharge Date Admission Date: December 09, 2019 Subjective LFTs trending down. Lipase decreased as well. ABD US obtained - No cholelithiasis or sonographic evidence of acute cholecystitis. No biliary ductal dilation. Hepatomegaly with hepatic steatosis. MRCP - hepatomegaly and hepatic steatosis. No MRI evidence of acute pancreatitis. Trace pleural effusions. Patient is lying down, groggy. Last night she was little confused and was texting her family. Mother called to the hospital and was updated by nursing staff. Currently she is easily arousable, and answers questions slowly but appropriately. She denies any abdominal pain, nausea or vomiting. Started her on clear liquid diet as she was hungry and studies are so far negative. She tolerated clear liquid diet well. No fevers, chills, chest pain or shortness of breath. She is not very tremulous right now. Review of Systems Review of Systems: All systems reviewed & are unremarkable except as noted in HPI & below Constitutional: no fever and no chills Respiratory: no cough and no dyspnea Cardiovascular: no chest pain and no palpitations Gastrointestinal: no abdominal pain, no nausea and no vomiting Physical Exam Physical Exam: Constitutional: WD/WN, middle-aged female lying in bed, groggy but in no acute distress, less tremulous Head: Normocephalic, Atraumatic Eyes: PERRL, EOMI, normal, anicteric sclerae ENMT: external ear and nose normal, oropharynx normal, dry mucous membranes Neck: trachea midline, no thyromegaly normal visual inspection Respiratory: normal respiratory effort, lungs clear to auscultation, no wheeze, rales, rhonchi. Normal insp/exp effort, no accessory muscle use Cardiovascular: regular rhythm,no murmur, no edema Vessels: no JVD or carotid bruit Chest: normal inspection of chest Abdomen: mild distension of abd, normal bowel sounds, soft, nontender to pa lpation Musculoskeletal: no cyanosis or clubbing, extremities motor strength 5/5, moves extremities spontaneously Skin: no rashes, warm and dry, normal turgor Neurologic: + b/l mild upper ext tremors (decreased from prior exam), PERRL, EOMI, no face palsy, no dysarthria Psychiatric: A+Ox3, euthymic affect, answers questions slowly but appropriately Results & Data Results & Data ([facility]) Vital Signs (Past 12 Hours) Vital Signs Temp Pulse Pulse Pulse Resp BP BP 12/11/19 07:24 36.8 C 94 H 18 12/11/19 03:22 36.7 C 89 18 133/85 12/11/19 02:00 78 29 H 12/11/19 01:33 104 H 21 12/11/19 00:00 84 16 12/10/19 23:21 36.4 C L 105 H 16 140/89 12/10/19 23:20 92 H 31 H 140/89 12/10/19 23:00 93 H 16 BP Pulse Ox 12/11/19 07:24 123/80 95 12/11/19 03:22 95 12/11/19 02:00 12/11/19 01:33 12/11/19 00:00 12/10/19 23:21 98 12/10/19 23:20 12/10/19 23:00 Laboratory Results 12/11/19 12/11/19 12/11/19 Range/Units 08:42 07:38 07:38 WBC 2.65 L (4.8-10.8) K/uL RBC 3.45 L (4.2-5.4) M/uL Hgb 12.0 (12.0-16.0) g/dL Hct 36.2 L (37-47) % MCV 104.9 H (80-100) fL MCH 34.8 H (25-34) pg MCHC 33.1 (32-36) g/dL RDW Std Deviation 47.8 H (36.4-46.3) fL RDW Coeff of Suzanne 12.6 (11.5-14.5) % Plt Count 102 L (130-400) K/uL MPV 10.6 H (7.4-10.4) fL Absolute Nucleated RBC 0.03 H (0-0) K/uL Nucleated RBC % (auto) 1.1 % Sodium 138 (136-145) mmol/L Potassium 3.6 (3.5-5.1) mmol/L Chloride 106 (98-107) mmol/L Carbon Dioxide 18 L (21-32) mmol/L Anion Gap 15.0 H (3-11) BUN 3 L (7-18) mg/dl Creatinine 0.74 (0.6-1.2) mg/dl Est Cr Clr Drug Dosing 98.5 ml/min Est GFR ( Amer) 114.2 Est GFR (Non-Af Amer) 98.5 BUN/Creatinine Ratio 4.2 L (10-20) Glucose 64 L (70-99) mg/dl Calcium 9.7 (8.5-10.1) mg/dl Phosphorus 2.9 D (2.5-4.9) mg/dl Magnesium 1.5 L (1.8-2.4) mg/dl Total Bilirubin 1.0 (0.2-1) mg/dl AST 142 H (15-37) U/L ALT 107 H (12-78) U/L Alkaline Phosphatase 110 (45-117) U/L Total Protein 6.8 (6.4-8.2) gm/dl Albumin 3.3 L (3.4-5.0) gm/dl Globulin 3.5 (2.5-4.0) gm/dl Albumin/Globulin Ratio 1.0 (0.9-2) Lipase 1157 H (73-393) U/L Hepatitis A IgM Ab (NON-REACTIVE) Hep B Core IgM Ab (NON-REACTIVE) 12/09/19 Range/Units 11:26 WBC (4.8-10.8) K/uL RBC (4.2-5.4) M/uL Hgb (12.0-16.0) g/dL Hct (37-47) % MCV (80-100) fL MCH (25-34) pg MCHC (32-36) g/dL RDW Std Deviation (36.4-46.3) fL RDW Coeff of Suzanne (11.5-14.5) % Plt Count (130-400) K/uL MPV (7.4-10.4) fL Absolute Nucleated RBC (0-0) K/uL Nucleated RBC % (auto) % Sodium (136-145) mmol/L Potassium (3.5-5.1) mmol/L Chloride (98-107) mmol/L Carbon Dioxide (21-32) mmol/L Anion Gap (3-11) BUN (7-18) mg/dl Creatinine (0.6-1.2) mg/dl Est Cr Clr Drug Dosing ml/min Est GFR ( Amer) Est GFR (Non-Af Amer) BUN/Creatinine Ratio (10-20) Glucose (70-99) mg/dl Calcium (8.5-10.1) mg/dl Phosphorus (2.5-4.9) mg/dl Magnesium (1.8-2.4) mg/dl Total Bilirubin (0.2-1) mg/dl AST (15-37) U/L ALT (12-78) U/L Alkaline Phosphatase (45-117) U/L Total Protein (6.4-8.2) gm/dl Albumin (3.4-5.0) gm/dl Globulin (2.5-4.0) gm/dl Albumin/Globulin Ratio (0.9-2) Lipase (73-393) U/L Hepatitis A IgM Ab NON-REACTIVE (NON-REACTIVE) Hep B Core IgM Ab NON-REACTIVE (NON-REACTIVE) Medications Administered Current Inpatient Medications Acetaminophen (Tylenol) 650 mg PO Q4H PRN PRN Reason: Pain or Fever Stop: 01/08/20 09:26 Al Hydrox/Mg Hydrox/Simethicone (Maalox) 15 ml PO Q4H PRN PRN Reason: Dyspepsia Stop: 01/08/20 09:26 Albuterol (Ventolin Hfa) 2 puffs INH Q6H PRN PRN Reason: Shortness Of Breath Stop: 01/08/20 09:26 Chlordiazepoxide HCl (Librium) 25 mg PO Q8H ARMANI; Taper Stop: 12/12/19 09:59 Last Admin: 12/11/19 01:25 Dose: 50 mg Documented by: Chlordiazepoxide HCl (Librium) 10 mg PO Q12H ARMANI Stop: 12/12/19 22:01 Fluticasone/Vilanterol (Breo Ellipta 200/25 Mcg Inh) 1 puffs INH QAM ARMANI; Protocol Stop: 01/08/20 09:59 Last Admin: 12/11/19 08:09 Dose: 1 puffs Documented by: Folic Acid (Folvite) 1 mg PO [facility] Stop: 01/09/20 08:59 Last Admin: 12/11/19 08:09 Dose: 1 mg Documented by: Lactated Ringer's (Lr) 1,000 mls @ 150 mls/hr IV .Q6H40M [facility] Stop: 01/08/20 09:26 Last Admin: 12/11/19 08:35 Dose: 200 mls/hr Documented by: Lorazepam (Ativan) 1 mg in 2 mls @ 2 mls/min IV UD PRN; Protocol PRN Reason: EtOH Withdrawl AWSS Score 6,7 Stop: 01/08/20 09:26 Last Admin: 12/11/19 08:08 Dose: 2 mls/min Documented by: Lorazepam (Ativan) 2 mg in 4 mls @ 4 mls/min IV UD PRN; Protocol PRN Reason: EtOH Withdrawl AWSS Score 8,9 Stop: 01/08/20 09:26 Last Admin: 12/11/19 00:00 Dose: 4 mls/min Documented by: Lorazepam (Ativan) 3 mg in 6 mls @ 4 mls/min IV ONCE PRN; Protocol PRN Reason: EtOH Withdrawl AWSS Score >=10 Stop: 01/08/20 09:26 Magnesium Sulfate/Dextrose (Magnesium Sulfate / D5w) 1 gm in 100 mls @ 50 mls/hr IV 1000 ONE Stop: 12/11/19 11:59 Loperamide HCl (Imodium) 2 mg PO NOW [facility] Stop: 01/09/20 10:59 Last Admin: 12/10/19 12:34 Dose: 2 mg Documented by: Magnesium Hydroxide (Milk Of Magnesia) 30 ml PO Q12H PRN PRN Reason: Constipation Stop: 01/08/20 09:26 Multivitamins (Multivitamin Tab) 1 tab PO [facility] Stop: 01/08/20 09:26 Last Admin: 12/11/19 08:09 Dose: 1 tab Documented by: Ondansetron HCl (Zofran) 4 mg IV Q6H PRN PRN Reason: Nausea Stop: 01/08/20 09:26 Polyethylene Glycol (Miralax Powder Packet) 17 gm PO DAILY PRN PRN Reason: Constipation Stop: 01/08/20 09:26 Thiamine HCl (Vitamin B-1) 100 mg PO QAM [facility] Stop: 01/09/20 08:59 Last Admin: 12/11/19 08:09 Dose: 100 mg Documented by: (1) Depression Depression Type: unspecified Qualified Code(s): F32.9 - Major depressive disorder, single episode, unspecified (2) Alcoholic hepatitis Ascites presence: without ascites Qualified Code(s): K70.10 - Alcoholic hepatitis without ascites (3) Asthma Asthma complication type: unspecified Asthma persistence: unspecified Asthma severity: unspecified severity Qualified Code(s): J45.909 - Unspecified asthma, uncomplicated
[2019-12-12] MEDS: LACTATED RINGER'S 1,000 ML IV SCH ×4 (01:01→22:37)
[2019-12-12] MEDS: chlordiazePOXIDE HCl 25 MG CAP PO SCH (02:04)
[2019-12-12] MEDS: LORazepam 1 MG/2 ML VIAL IV PRN ×4 (02:16→23:49)
[2019-12-12] MEDS ORDERED: Nursing to Pharmacy Communication SCH (04:45)
[2019-12-12 05:57] LABS: Hemoglobin 12.3 g/dL (12.0-16.0); Mean Corpuscular Hemoglobin 35.1 pg (25-34); Mean Corpuscular Hgb Conc 34.2 g/dL (32-36); Mean Corpuscular Volume 102.9 fL (80-100); Mean Platelet Volume 10.4 fL (7.4-10.4); Platelet Count 102 K/uL (130-400); RDW Coefficient of Variation 12.8 % (11.5-14.5); RDW Standard Deviation 47.9 fL (36.4-46.3); White Blood Count 1.93 K/uL (4.8-10.8)
[2019-12-12 06:21] LABS: Albumin Level 3.1 gm/dl (3.4-5.0); BUN Creatinine Ratio 6.3 (10-20); Calcium 9.4 mg/dl (8.5-10.1); Creatinine Clr Calc Pharmacy 121.5 ml/min; Est GFR (African American) 128.5; Est GFR (Non-African American) 110.9; Magnesium 1.9 mg/dl (1.8-2.4); Potassium 3.6 mmol/L (3.5-5.1)
[2019-12-12 06:24] LABS: Bilirubin,Total 0.9 mg/dl (0.2-1); Globulin 3.1 gm/dl (2.5-4.0); Phosphorus 2.9 mg/dl (2.5-4.9); Total Protein 6.2 gm/dl (6.4-8.2)
[2019-12-12] MEDS ORDERED: POTASSIUM CHLORIDE 20 MEQ TABCR PO STA (07:24)
--- NOTE | 2019-12-12 07:25 | Hospitalist Progress Note ---
Date of Service December 12, 2019 Assessment & Plan (1) Alcohol withdrawal: This is a 44-year-old female who has significant past medical history of alcohol abuse, asthma, MDD, panic disorder who presents to ED secondary to alcohol withdrawal symptoms x1 day. In ED patient was hemodynamically stable, but was tachycardic. She did receive 1 L IVF, oral thiamine and folic acid along with a total of 4 mg of IV Ativan. She also received IV Zofran with improvement of nausea. She has not had any episodes of emesis while in ED. Lab work notable for leukopenia and thrombocytopenia with a white count of 2.45k and platelet count of 100,000 consistent with alcohol abuse. Further lab abnormalities include AST 335, ALT 172, alk phos 134, total bili 1.2, Phos 2.1, mag 1.8, K 3.6, lipase 2802, ethyl alcohol 21. PCU AWSS protocol Banana bag on admission, then continue with thiamine and folate supplement Librium Taper, still requiring Librium and Ativan Patient is now neutropenic, therefore switched from Librium taper to gabapentin taper as Librium has rare side effect of decreasing white blood cell count. Patient's white blood cell count was low even on admission, likely secondary to bone marrow suppression from alcohol use. IV Ativan - Active protocol Diet was advanced to clear liquid, now will advance to low-fat as patient is hungry and denies any abdominal pain nausea or vomiting seizure precautions LR @ 200cc/hr on admission, decreased to 150 cc/h case management consulted (2) Acute pancreatitis: elevated lipase 2802, presents with n/v No abdominal pain likely 2/2 to significant ETOH abuse given elevated LFTS ordered RUQ u/s to rule out obstructive process NPO on admission IVF LR @ 200 cc/h , decreased to 150 cc/h, diet advanced, tolerates well follow lipase GI consulted Lipase increased from yesterday, GI recommends to obtain MRCP MRCP negative for pancreatitis, overall unremarkable study Neutropenia -Patient presented with low white blood cell count on admission, likely due to bone marrow suppression from alcohol use -Also on Librium taper which could decrease white blood cell count, will switch to gabapentin taper -Continue diet and neutropenic precautions -Peripheral blood smear ordered (3) Alcoholic hepatitis: elevated LFTS AST 335, ALT 172, alk phos 134, total bilirubin 1.2 Likely in setting of alcohol abuse AST greater than ALT Given evidence of pancreatitis, obtained liver ultrasound to rule out obstructive process Acute hepatitis panel -negative LFTs trending down Liver US - No cholelithiasis or sonographic evidence of acute cholecystitis. No biliary ductal dilation. Hepatomegaly with hepatic steatosis. (4) Electrolyte abnormality: Hypophosphatemia, Phos 2.1, replete and monitor Hypomagnesemia, mag 1.5, likely due to IV fluids and n.p.o. status, replete and monitor Mild hypokalemia, goal potassium over 4, replete and monitor Banana bag ordered in ED; then Maintenance LR @ 200/hr (5) Depression: Patient previously had been on Paxil and trazodone States has not been taking for the past 2 to 3-weeks Currently denies depressed mood, SI or HI; however per ED note day prior, as well as encounters in [facility] appears she has been struggling with anxiety and depression since development of pandemic Low threshold for psych consult (6) Asthma: No acute exacerbation Continue Advair, PRN albuterol (7) DVT prophylaxis: SCDs, teds Disposition: PCU, case management consulted for consideration for alcohol rehab Follow-up: PCP Dr. Whatley upon discharge Admission and Anticipated Discharge Date Admission Date: December 09, 2019 Subjective WBC decreased, ANC 0.83. Possibly secondary to librium. Will switch to gabapentin taper. Neutropenic diet and neutropenic precautions. LFTs trending down. Lipase decreased as well. ABD US obtained - No cholelithiasis or sonographic evidence of acute cholecystitis. No biliary ductal dilation. Hepatomegaly with hepatic steatosis. MRCP - hepatomegaly and hepatic steatosis. No MRI evidence of acute pancreatitis. Trace pleural effusions. Patient denies any fevers, chills, chest pain, shortness of breath, abdominal pain, nausea or vomiting. She is hungry and so advanced her diet to a low-fat diet, tolerates well. She is quite sleepy, difficult to keep her eyes open and communicating with me, will hold gabapentin tonight and will reassess in the morning. Per nursing staff she still required Ativan, being tremulous and tachycardic. Review of Systems Review of Systems: All systems reviewed & are unremarkable except as noted in HPI & below Constitutional: no fever and no chills Respiratory: no cough and no dyspnea Cardiovascular: no chest pain and no palpitations Gastrointestinal: no abdominal pain, no nausea and no vomiting Neurologic: Tremor seems to be improved Physical Exam Physical Exam: Constitutional: WD/WN, middle-aged female lying in bed, groggy but in no acute distress, less tremulous Head: Normocephalic, Atraumatic Eyes: PERRL, EOMI, normal, anicteric sclerae ENMT: external ear and nose normal, oropharynx normal, dry mucous membranes Neck: trachea midline, no thyromegaly normal visual inspection Respiratory: normal respiratory effort, lungs clear to auscultation, no wheeze, rales, rhonchi. Normal insp/exp effort, no accessory muscle use Cardiovascular: regular rhythm,no murmur, no edema Vessels: no JVD or carotid bruit Chest: normal inspection of chest Abdomen: mild distension of abd, normal bowel sounds, soft, nontender to palpation Musculoskeletal: no cyanosis or clubbing, extremities motor strength 5/5, moves extremities spontaneously Skin: no rashes, warm and dry, normal turgor Neurologic: + b/l mild upper ext tremors (decreased from prior exam), PERRL, EOMI, no face palsy, no dysarthria Psychiatric: A+Ox3, euthymic affect, answers questions slowly but appropriately Results & Data Results & Data ([facility]) Vital Signs (Past 12 Hours) Vital Signs Temp Pulse Pulse Resp BP Pulse Ox 12/12/19 07:22 36.7 C 65 16 131/85 95 12/12/19 03:30 36.5 C 73 19 115/77 94 12/12/19 00:00 36.5 C 76 20 120/86 95 12/11/19 23:29 80 (1) Alcoholic hepatitis Ascites presence: without ascites Qualified Code(s): K70.10 - Alcoholic hepatitis without ascites (2) Depression Depression Type: unspecified Qualified Code(s): F32.9 - Major depressive disorder, single episode, unspecified (3) Asthma Asthma severity: unspecified severity Asthma persistence: unspecified Asthma complication type: unspecified Qualified Code(s): J45.909 - Unspecified asthma, uncomplicated
[2019-12-12 08:08] LABS: RBC Morphology Unremarkable
[2019-12-12 08:32] LABS: Basophils # (auto) 0.01 K/uL (0-0.2); Basophils % (auto) 0.5 %; Eosinophils # (auto) 0.13 K/uL (0-0.5); Immature Granulocytes # (auto) 0.02 K/uL (0.00-0.02); Immature Granulocytes % (auto) 1.1 %; Lymphocytes # (auto) 0.54 K/uL (1.2-3.4); Lymphocytes % (auto) 29.2 %; Monocytes # (auto) 0.32 K/uL (0.11-0.59); Monocytes % (auto) 17.3 %; Neutrophils # (auto) 0.83 K/uL (1.4-6.5); Neutrophils % (auto) 44.9 %
[2019-12-12] MEDS ORDERED: GABAPENTIN 1200MG ALCOHOL WITHDRAWAL LOAD PO STA (08:51)
[2019-12-12] MEDS: FLUTICASONE/VILANTEROL 200/25MCG 14 PUFFS/INHALER INH SCH (09:03)
[2019-12-12] MEDS ORDERED: GABAPENTIN 600 MG TAB PO SCH ×2 (09:30→16:00)
[2019-12-12] MEDS: MULTIVITAMIN TAB PO SCH (11:59)
[2019-12-12] MEDS: THIAMINE HCL 100 MG TAB PO SCH (11:59)
[2019-12-12] MEDS: FOLIC ACID 1 MG TAB PO SCH (11:59)
[2019-12-13] MEDS: LACTATED RINGER'S 1,000 ML IV SCH ×3 (04:48→18:04)
[2019-12-13] MEDS ORDERED: GABAPENTIN 600 MG TAB PO SCH ×2 (06:00→12:00)
[2019-12-13 06:27] LABS: Hematocrit (blood only) 37.3 % (37-47); Hemoglobin 12.3 g/dL (12.0-16.0); Mean Corpuscular Hemoglobin 34.8 pg (25-34); Mean Corpuscular Volume 105.7 fL (80-100); Mean Platelet Volume 10.1 fL (7.4-10.4); Platelet Count 130 K/uL (130-400); RDW Standard Deviation 49.7 fL (36.4-46.3); Red Blood Count 3.53 M/uL (4.2-5.4); White Blood Count 2.04 K/uL (4.8-10.8)
[2019-12-13 07:04] LABS: Albumin Level 3.1 gm/dl (3.4-5.0); Creatinine Clr Calc Pharmacy 101.5 ml/min; Est GFR (Non-African American) 101.9; Potassium 3.6 mmol/L (3.5-5.1)
[2019-12-13 07:07] LABS: Bilirubin,Total 0.6 mg/dl (0.2-1); Globulin 3.2 gm/dl (2.5-4.0); Total Protein 6.3 gm/dl (6.4-8.2)
[2019-12-13 07:59] LABS: Basophils # (auto) 0.02 K/uL (0-0.2); Basophils % (auto) 0.9 %; Eosinophils % (auto) 4.6 %; Immature Granulocytes # (auto) 0.02 K/uL (0.00-0.02); Immature Granulocytes % (auto) 0.9 %; Lymphocytes # (auto) 0.66 K/uL (1.2-3.4); Lymphocytes % (auto) 30.1 %; Monocytes # (auto) 0.43 K/uL (0.11-0.59); Monocytes % (auto) 19.6 %; Neutrophils # (auto) 0.96 K/uL (1.4-6.5); Neutrophils % (auto) 43.9 %
[2019-12-13] MEDS: FLUTICASONE/VILANTEROL 200/25MCG 14 PUFFS/INHALER INH SCH (09:03)
[2019-12-13] MEDS: FOLIC ACID 1 MG TAB PO SCH (09:04)
[2019-12-13] MEDS: MULTIVITAMIN TAB PO SCH (09:04)
[2019-12-13] MEDS: THIAMINE HCL 100 MG TAB PO SCH (09:04)
[2019-12-13] MEDS: LORazepam 1 MG/2 ML VIAL IV PRN (09:16)
--- NOTE | 2019-12-13 10:46 | Hospitalist Progress Note ---
Date of Service December 13, 2019 Assessment & Plan (1) Alcohol withdrawal: This is a 44-year-old female who has significant past medical history of alcohol abuse, asthma, MDD, panic disorder who presents to ED secondary to alcohol withdrawal symptoms x1 day. In ED patient was hemodynamically stable, but was tachycardic. She did receive 1 L IVF, oral thiamine and folic acid along with a total of 4 mg of IV Ativan. She also received IV Zofran with improvement of nausea. She has not had any episodes of emesis while in ED. Lab work notable for leukopenia and thrombocytopenia with a white count of 2.45k and platelet count of 100,000 consistent with alcohol abuse. Further lab abnormalities include AST 335, ALT 172, alk phos 134, total bili 1.2, Phos 2.1, mag 1.8, K 3.6, lipase 2802, ethyl alcohol 21. PCU AWSS protocol Banana bag on admission, then continue with thiamine and folate supplement Librium Taper, still requiring Librium and Ativan Patient is now neutropenic, therefore switched from Librium taper to gabapentin taper as Librium has rare side effect of decreasing white blood cell count. Patient's white blood cell count was low even on admission, likely secondary to bone marrow suppression from alcohol use. IV Ativan - Active protocol Diet was advanced to clear liquid, now will advance to low-fat as patient is hungry and denies any abdominal pain nausea or vomiting seizure precautions LR @ 200cc/hr on admission, decreased to 150 cc/h case management consulted (2) Acute pancreatitis: elevated lipase 2802, presents with n/v No abdominal pain likely 2/2 to significant ETOH abuse given elevated LFTS ordered RUQ u/s to rule out obstructive process NPO on admission IVF LR @ 200 cc/h , decreased to 150 cc/h, diet advanced, tolerates well follow lipase GI consulted Lipase increased from yesterday, GI recommends to obtain MRCP MRCP negative for pancreatitis, overall unremarkable study Neutropenia -Patient presented with low white blood cell count on admission, likely due to bone marrow suppression from alcohol use -Also on Librium taper which could decrease white blood cell count,switched to gabapentin taper -Continue diet and neutropenic precautions -Peripheral blood smear obtainednot specific, macrocytosis noted, no evidence of malignancy -Macrocytosis, MCV > 100, continue folate, start vitamin B12 supplement, B12 level ordered (3) Alcoholic hepatitis: elevated LFTS AST 335, ALT 172, alk phos 134, total bilirubin 1.2 Likely in setting of alcohol abuse AST greater than ALT Given evidence of pancreatitis, obtained liver ultrasound to rule out obstructive process Acute hepatitis panel -negative LFTs trending down Liver US - No cholelithiasis or sonographic evidence of acute cholecystitis. No biliary ductal dilation. Hepatomegaly with hepatic steatosis. (4) Electrolyte abnormality: Hypophosphatemia, Phos 2.1, replete and monitor Hypomagnesemia, mag 1.5, likely due to IV fluids and n.p.o. status, replete and monitor Mild hypokalemia, goal potassium over 4, replete and monitor Banana bag ordered in ED; then Maintenance LR @ 200/hr (5) Depression: Patient previously had been on Paxil and trazodone States has not been taking for the past 2 to 3-weeks Currently denies depressed mood, SI or HI; however per ED note day prior, as wel l as encounters in [place] appears she has been struggling with anxiety and depression since development of pandemic Low threshold for psych consult (6) Asthma: No acute exacerbation Continue Advair, PRN albuterol (7) DVT prophylaxis: SCDs, teds Disposition: PCU, case management consulted for consideration for alcohol rehab Follow-up: PCP Dr. Whatley upon discharge Admission and Anticipated Discharge Date Admission Date: December 09, 2019 Subjective WBC decreased, ANC 0.83 yesterday, today still neutropenic. Neutropenic diet and neutropenic precautions. Diet advanced, to low-fat diet patient tolerates well. No abdominal pain, nausea or vomiting. Also denies any fevers, chills, chest pain or shortness of breath. She is drowsy, however answers questions appropriately, will hold gabapentin this evening. Peripheral smear obtained, to eval her neutropenia, results are nonspecific, but significant for macrocytosis, no evidence of malignancy. Review of Systems Review of Systems: All systems reviewed & are unremarkable except as noted in HPI & below Constitutional: no fever and no chills Respiratory: no cough and no dyspnea Cardiovascular: no chest pain and no palpitations Gastrointestinal: no abdominal pain, no nausea and no vomiting Neurologic: Patient still seems to be quite groggy, but answers questions a ppropriately and eating by herself Physical Exam Physical Exam: Constitutional: WD/WN, middle-aged female lying in bed, groggy but in no acute distress, less tremulous Head: Normocephalic, Atraumatic Eyes: PERRL, EOMI, normal, anicteric sclerae ENMT: external ear and nose normal, oropharynx normal, dry mucous membranes Neck: trachea midline, no thyromegaly normal visual inspection Respiratory: normal respiratory effort, lungs clear to auscultation, no wheeze, rales, rhonchi. Normal insp/exp effort, no accessory muscle use Cardiovascular: regular rhythm,no murmur, no edema Vessels: no JVD or carotid bruit Chest: normal inspection of chest Abdomen: mild distension of abd, normal bowel sounds, soft, nontender to palpation Musculoskeletal: no cyanosis or clubbing, extremities motor strength 5/5, moves extremities spontaneously Skin: no rashes, warm and dry, normal turgor Neurologic: + b/l mild upper ext tremors (decreased from prior exam), PERRL, EOMI, no face palsy, no dysarthria Psychiatric: A+Ox3, euthymic affect, answers questions slowly but appropriately Results & Data Results & Data ([facility]) Vital Signs (Past 12 Hours) Vital Signs Temp Pulse Pulse Pulse Resp BP Pulse Ox 12/13/19 09:06 24 92 12/13/19 07:55 96 H 12/13/19 07:17 36.3 C L 111 H 20 130/85 91 12/13/19 03:25 36.7 C 103 H 19 124/84 91 12/13/19 00:04 101 H 12/12/19 23:57 36.5 C 73 18 115/77 94 Laboratory Results 12/13/19 12/13/19 12/12/19 Range/Units 06:03 06:03 05:35 WBC 2.04 L (4.8-10.8) K/uL RBC 3.53 L (4.2-5.4) M/uL Hgb 12.3 (12.0-16.0) g/dL Hct 37.3 (37-47) % MCV 105.7 H (80-100) fL MCH 34.8 H (25-34) pg MCHC 33.0 (32-36) g/dL RDW Std Deviation 49.7 H (36.4-46.3) fL RDW Coeff of Suzanne 13.0 (11.5-14.5) % Plt Count 130 (130-400) K/uL MPV 10.1 (7.4-10.4) fL Immature Gran % (Auto) 0.9 % Neut % (Auto) 43.9 % Lymph % (Auto) 30.1 % Day % (Auto) 19.6 % Eos % (Auto) 4.6 % Baso % (Auto) 0.9 % Immature Gran # (Auto) 0.02 (0.00-0.02) K/uL Neut # (Auto) 0.96 L* (1.4-6.5) K/uL Lymph # (Auto) 0.66 L (1.2-3.4) K/uL Day # (Auto) 0.43 (0.11-0.59) K/uL Eos # (Auto) 0.10 (0-0.5) K/uL Baso # (Auto) 0.02 (0-0.2) K/uL Absolute Nucleated RBC 0.00 (0-0) K/uL Nucleated RBC % (auto) 0.0 % Peripher Smr Path Cons Sodium 141 (136-145) mmol/L Potassium 3.6 (3.5-5.1) mmol/L Chloride 109 H (98-107) mmol/L Carbon Dioxide 26 (21-32) mmol/L Anion Gap 6.0 (3-11) BUN 7 (7-18) mg/dl Creatinine 0.72 (0.6-1.2) mg/dl Est Cr Clr Drug Dosing 101.5 ml/min Est GFR ( Amer) 118.0 Est GFR (Non-Af Amer) 101.9 BUN/Creatinine Ratio 9.0 L (10-20) Glucose 107 H (70-99) mg/dl Calcium 10.0 (8.5-10.1) mg/dl Total Bilirubin 0.6 (0.2-1) mg/dl AST 89 H (15-37) U/L ALT 90 H (12-78) U/L Alkaline Phosphatase 100 (45-117) U/L Total Protein 6.3 L (6.4-8.2) gm/dl Albumin 3.1 L (3.4-5.0) gm/dl Globulin 3.2 (2.5-4.0) gm/dl Albumin/Globulin Ratio 1.0 (0.9-2) Lipase 1272 H (73-393) U/L Medications Administered Current Inpatient Medications Acetaminophen (Tylenol) 650 mg PO Q4H PRN PRN Reason: Pain or Fever Stop: 01/08/20 09:26 Al Hydrox/Mg Hydrox/Simethicone (Maalox) 15 ml PO Q4H PRN PRN Reason: Dyspepsia Stop: 01/08/20 09:26 Last Admin: 12/12/19 22:37 Dose: 15 ml Documented by: Albuterol (Ventolin Hfa) 2 puffs INH Q6H PRN PRN Reason: Shortness Of Breath Stop: 01/08/20 09:26 Fluticasone/Vilanterol (Breo Ellipta 200/25 Mcg Inh) 1 puffs INH QAM [facility]; Protocol Stop: 01/08/20 09:59 Last Admin: 12/13/19 09:03 Dose: 1 puffs Documented by: Folic Acid (Folvite) 1 mg PO QAM [facility] Stop: 01/09/20 08:59 Last Admin: 12/13/19 09:04 Dose: 1 mg Documented by: Gabapentin (Neurontin) 600 mg PO Q8H ARMANI Stop: 12/14/19 04:01 Gabapentin (Neurontin) 600 mg PO Q12H ARMANI Stop: 12/15/19 04:01 Gabapentin (Neurontin) 600 mg PO Q24H ARMANI Stop: 12/16/19 04:01 Lactated Ringer's (Lr) 1,000 mls @ 150 mls/hr IV .Q6H40M [facility] Stop: 01/08/20 09:26 Last Admin: 12/13/19 04:48 Dose: 150 mls/hr Documented by: Lorazepam (Ativan) 1 mg in 2 mls @ 2 mls/min IV UD PRN; Protocol PRN Reason: EtOH Withdrawl AWSS Score 6,7 Stop: 01/08/20 09:26 Last Admin: 12/13/19 09:16 Dose: 2 mls/min Documented by: Lorazepam (Ativan) 2 mg in 4 mls @ 4 mls/min IV UD PRN; Protocol PRN Reason: EtOH Withdrawl AWSS Score 8,9 Stop: 01/08/20 09:26 Last Admin: 12/11/19 00:00 Dose: 4 mls/min Documented by: Lorazepam (Ativan) 3 mg in 6 mls @ 4 mls/min IV ONCE PRN; Protocol PRN Reason: EtOH Withdrawl AWSS Score >=10 Stop: 01/08/20 09:26 Loperamide HCl (Imodium) 2 mg PO NOW [facility] Stop: 01/09/20 10:59 Last Admin: 12/10/19 12:34 Dose: 2 mg Documented by: Magnesium Hydroxide (Milk Of Magnesia) 30 ml PO Q12H PRN PRN Reason: Constipation Stop: 01/08/20 09:26 Multivitamins (Multivitamin Tab) 1 tab PO [facility] Stop: 01/08/20 09:26 Last Admin: 12/13/19 09:04 Dose: 1 tab Documented by: Ondansetron HCl (Zofran) 4 mg IV Q6H PRN PRN Reason: Nausea Stop: 01/08/20 09:26 Polyethylene Glycol (Miralax Powder Packet) 17 gm PO DAILY PRN PRN Reason: Constipation Stop: 01/08/20 09:26 Thiamine HCl (Vitamin B-1) [facility] Stop: 01/09/20 08:59 Last Admin: 12/13/19 09:04 Dose: 100 mg Documented by: (1) Depression Depression Type: unspecified Qualified Code(s): F32.9 - Major depressive disorder, single episode, unspecified (2) Alcoholic hepatitis Ascites presence: without ascites Qualified Code(s): K70.10 - Alcoholic hepatitis without ascites (3) Asthma Asthma complication type: unspecified Asthma persistence: unspecified Asthma severity: unspecified severity Qualified Code(s): J45.909 - Unspecified asthma, uncomplicated
[2019-12-13] MEDS ORDERED: POTASSIUM CHLORIDE 20 MEQ TABCR PO ONE (11:00)
[2019-12-13] MEDS: ALBUTEROL HFA 8 GM INHALER INH PRN (18:49)
[2019-12-13] MEDS: CYANOCOBALAMIN 500 MCG TABLET (VITAMIN B-12) PO SCH (19:56)
[2019-12-14] MEDS: LACTATED RINGER'S 1,000 ML IV SCH ×4 (00:28→20:34)
[2019-12-14] MEDS: LORazepam 1 MG/2 ML VIAL IV PRN ×3 (02:35→13:53)
[2019-12-14 06:13] LABS: Hematocrit (blood only) 40.2 % (37-47); Hemoglobin 12.5 g/dL (12.0-16.0); Mean Corpuscular Hemoglobin 33.2 pg (25-34); Mean Corpuscular Hgb Conc 31.1 g/dL (32-36); Mean Corpuscular Volume 106.9 fL (80-100); Mean Platelet Volume 10.5 fL (7.4-10.4); Platelet Count 136 K/uL (130-400); RDW Coefficient of Variation 13.1 % (11.5-14.5); Red Blood Count 3.76 M/uL (4.2-5.4); White Blood Count 2.89 K/uL (4.8-10.8)
[2019-12-14 06:52] LABS: Albumin Globulin Ratio 0.9 (0.9-2); Albumin Level 3.3 gm/dl (3.4-5.0); BUN Creatinine Ratio 6.8 (10-20); Bilirubin,Total 0.7 mg/dl (0.2-1); Calcium 10.2 mg/dl (8.5-10.1); Creatinine Clr Calc Pharmacy 85.8 ml/min; Est GFR (African American) 96.6; Est GFR (Non-African American) 83.3; Globulin 3.6 gm/dl (2.5-4.0); Potassium 4.3 mmol/L (3.5-5.1); Total Protein 6.9 gm/dl (6.4-8.2)
[2019-12-14 07:36] LABS: Basophils # (auto) 0.01 K/uL (0-0.2); Basophils % (auto) 0.3 %; Eosinophils # (auto) 0.04 K/uL (0-0.5); Eosinophils % (auto) 1.3 %; Immature Granulocytes # (auto) 0.01 K/uL (0.00-0.02); Immature Granulocytes % (auto) 0.3 %; Lymphocytes # (auto) 0.31 K/uL (1.2-3.4); Lymphocytes % (auto) 10.2 %; Monocytes # (auto) 0.26 K/uL (0.11-0.59); Monocytes % (auto) 8.6 %; Neutrophils % (auto) 79.3 %
[2019-12-14] MEDS: ACETAMINOPHEN 325 MG TAB PO PRN ×2 (08:37→15:49)
[2019-12-14] MEDS: FOLIC ACID 1 MG TAB PO SCH (08:39)
[2019-12-14] MEDS: THIAMINE HCL 100 MG TAB PO SCH (08:39)
[2019-12-14] MEDS: CYANOCOBALAMIN 500 MCG TABLET (VITAMIN B-12) PO SCH (08:39)
[2019-12-14] MEDS: MULTIVITAMIN TAB PO SCH (08:39)
[2019-12-14] MEDS: FLUTICASONE/VILANTEROL 200/25MCG 14 PUFFS/INHALER INH SCH (08:40)
[2019-12-14] MEDS: LORazepam 2 MG/4 ML VIAL IV PRN (08:55)
[2019-12-14] MEDS ORDERED: CEFEPIME CONSULT ACTIVE PRN (08:57)
[2019-12-14] MEDS ORDERED: VANCOMYCIN CONSULT ACTIVE PRN (09:03)
--- NOTE | 2019-12-14 09:14 | XRay Report ---
XR chest 1V portable CLINICAL HISTORY: fever, recent neutropenia COMPARISON STUDY: 07/23/2019 FINDINGS: Focal atelectasis lateral aspect left base. Lungs otherwise appear clear. Diaphragms are sm ooth. IMPRESSION: Focal atelectasis lateral left base. Otherwise negative chest. ACT 112: Negative or not required by law. The above report was generated using voice recognition software. It may contain grammatical, syntax or spelling errors. Electronically signed by: Alvin Kingston M.D. 12/14/2019 9:13 AM
--- NOTE | 2019-12-14 09:52 | Pharmacy Report ---
Pharmacy Abx Initial Consult - Date of Service December 14, 2019 - Pharmacy Dosing Scope Date of Consult: 12/14/19 Consultation requested by: Dr. Pettit Pharmacy is consulted to initiate VANCOMYCIN + CEFEPIME IV dosing therapy, order appropriate labs and adjust drug dose/frequency. - Subjective The patient is a 44 year old F admitted on 12/09/19 07:55 for EtOH withdrawal. Pt with neutropenic fever initiated on broad spectrum abx. - Objective Height: 5 ft 2 in Weight: 85.8 kg Vital Signs (Past 12hrs): Vital Signs Temp Pulse Pulse Resp BP BP Pulse Ox 12/14/19 07:21 39.4 C H 119 H 18 130/86 92 12/14/19 04:22 36.7 C 108 H 20 152/91 H 92 12/14/19 00:00 37.3 C 90 17 129/85 97 12/13/19 23:19 93 H Lab Results (24hrs): Laboratory Tests (24 Hours) 12/14/19 12/14/19 05:47 05:47 WBC 2.89 L Neut # (Auto) 2.40 Creatinine 0.85 Est Cr Clr Drug Dosing 85.8 Micro Results: 12/14/19 09:18 Aerobic Blood Culture - Pending Blood Anaerobic Blood Culture - Pending 12/14/19 09:37 Aerobic Blood Culture - Pending Blood Anaerobic Blood Culture - Pending - Risk Factors for Resistance * Immunocompromised secondary to chronic etOH * Asthma * Nasal MRSA + - Assessment & Plan Assessment 44 year old F initiated on IV VANCOMYCIN + CEFEPIME for neutropenic fever. * CXR shows focal atelectasis lateral left base- Otherwise negative * Nasal MRSA + * Blood cultures x 2 pending * Ordered procalcitonin per protocol - however, will interpret conservatively as it may be elevated secondary to cirrhosis from chronic etoh abuse * Renal function WNL Plan Vancomycin IV * Patient meets criteria for vancomycin AUC dosing nomogram * AUC/NILO is the preferred PK/PD target for vancomycin * Target AUC/NILO = 400-600 * AUC guided dosing is effective and associated with decreased risk of nephrotoxicity * Will order a trough prior to the 5th maintenance dose since BMI is close to 35 Cefepime * No dose adjustment needed based on CrCL > 60 * Cefepime 2g IV Q8hrs for possible PNA/Sepsis Of note, antibiotics were ordered with the "empiric" clinical indication- antibiotics will DISCONTINUE after 48hrs Pharmacy will continue to follow and will adjust dose/frequency as necessary. Thank you.
[2019-12-14] MEDS ORDERED: GABAPENTIN 600 MG TAB PO SCH (10:00)
[2019-12-14] MEDS ORDERED: VANCOMYCIN HCL 2,250 MG in SODIUM CHLORIDE 0.9% 500 ML IV ONE (10:00)
[2019-12-14] MEDS ORDERED: CEFEPIME 2,000 MG/20 ML VIAL IV ONE (10:00)
[2019-12-14] MEDS ORDERED: CEFEPIME 2,000 MG in SYRINGE 7.5 ML IV ONE (10:00)
[2019-12-14] MEDS ORDERED: IOVERSOL 100ml IV PRN (14:09)
--- NOTE | 2019-12-14 14:27 | CT Scan Report ---
CT SCAN OF THE ABDOMEN AND PELVIS WITH IV CONTRAST CLINICAL HISTORY: Fever. Abdominal distention. COMPARISON STUDY: MRCP dated 12/10/2027. TECHNIQUE: Following the IV administration of 93 cc of Optiray 320, CT scan of the abdomen and pelvi s is performed from the lung bases to the proximal femora. Images are reviewed in the axial, sagittal , and coronal planes. IV contrast was administered without complication. Oral contrast was utilized. A dose lowering technique was utilized adhering to the principles of ALARA. CT DOSE: 982.55 mGy.cm FINDINGS: Lung bases: The heart is normal in size and without pericardial effusion. There are trace pleural eff usions with dependent atelectasis. A small hiatal hernia is noted. Liver: The contrast-enhanced liver is enlarged, measuring 22.3 cm in length. The liver demonstrates d iffusely diminished attenuation consistent with hepatic steatosis. Fatty sparing is seen adjacent to gallbladder fossa. There is no intrahepatic biliary ductal dilatation. The hepatic veins and portal v eins are patent. Gallbladder: Unremarkable. Spleen: Normal in size and attenuation. Pancreas: Unremarkable. Adrenal glands: Unremarkable. Kidneys: The contrast enhanced kidneys are normal in size and without hydronephrosis. The kidneys enh ance symmetrically. Abdominal vasculature: The abdominal aorta is normal in course and caliber. Bowel: There is no bowel obstruction. Enteric contrast reaches the distal small bowel. The appendix i s well-visualized and normal. Peritoneum: There is no intraperitoneal free air or abdominal ascites. Lymphadenopathy: None. Pelvic viscera: The bladder, uterus, and adnexa are normal as visualized. Skeletal structures: No lytic or blastic lesions are seen. IMPRESSION: 1. There are no acute infectious or inflammatory findings in the abdomen or pelvis. 2. Hepatomegaly and hepatic steatosis. 3. Trace pleural effusions. ACT 112: Negative or not required by law. Electronically signed by: Randell Lo M.D. 12/14/2019 2:26 PM
[2019-12-14] MEDS: ALBUT/IPRATROP 3MG/0.5MG NEB 3 ML VIAL NEB SCH ×4 (15:13→22:48)
[2019-12-14] MEDS: GABAPENTIN 600 MG TAB PO SCH (15:49)
[2019-12-14] MEDS: VANCOMYCIN HCL 1,000 MG in SODIUM CHLORIDE 0.9% 250 ML IV SCH (17:40)
[2019-12-14] MEDS: CEFEPIME 2,000 MG in SYRINGE 7.5 ML IV SCH (17:41)
[2019-12-14] MEDS: ACETAMINOPHEN 500 MG TAB PO SCH ×2 (17:45→23:36)
--- NOTE | 2019-12-14 20:15 | Hospitalist Progress Note ---
Date of Service December 14, 2019 Assessment & Plan (1) Alcohol withdrawal: This is a 44-year-old female who has significant past medical history of alcohol abuse, asthma, MDD, panic disorder who presents to ED secondary to alcohol withdrawal symptoms x1 day. In ED patient was hemodynamically stable, but was tachycardic. She did receive 1 L IVF, oral thiamine and folic acid along with a total of 4 mg of IV Ativan. She also received IV Zofran with improvement of nausea. She has not had any episodes of emesis while in ED. Lab work notable for leukopenia and thrombocytopenia with a white count of 2.45k and platelet count of 100,000 consistent with alcohol abuse. Further lab abnormalities include AST 335, ALT 172, alk phos 134, total bili 1.2, Phos 2.1, mag 1.8, K 3.6, lipase 2802, ethyl alcohol 21. PCU AWSS protocol Banana bag on admission, then continue with thiamine and folate supplement Librium Taper, and Ativan ordered on admission Patient became neutropenic, therefore switched from Librium taper to gabapentin taper as Librium has rare side effect of decreasing white blood cell count. Patient's white blood cell count was low even on admission, likely secondary to bone marrow suppression from alcohol use. IV Ativan - Active protocol Diet was advanced to clear liquid, and then to low-fat as patient was hungry and denied any abdominal pain nausea or vomiting seizure precautions LR @ 200cc/hr on admission, decreased to 150 cc/h case management consulted Fever -New onset, December 13 -Possibly due to withdrawal however infection cannot be ruled out at this moment -UA, chest x-ray, blood cultures obtained. -Empiric antibiotics with vancomycin and cefepime started, especially in the setting of recent neutropenia -Patient has some left upper quadrant mild tenderness, therefore CT abdomen obtained as well -Tylenol ordered, cooling precautions per nursing staff discussed (2) Acute pancreatitis: elevated lipase 2802, presents with n/v No abdominal pain likely 2/2 to significant ETOH abuse given elevated LFTS ordered RUQ u/s to rule out obstructive process NPO on admission IVF LR @ 200 cc/h , decreased to 150 cc/h, diet advanced, tolerates well follow lipase GI consulted Lipase increased after admission, GI recommended to obtain MRCP MRCP negative for pancreatitis, overall unremarkable study Neutropenia -Patient presented with low white blood cell count on admission, likely due to bone marrow suppression from alcohol use -Also on Librium taper which could decrease white blood cell count,switched to gabapentin taper -Continue diet and neutropenic precautions -Peripheral blood smear obtainednot specific, macrocytosis noted, no evidence of malignancy -Macrocytosis, MCV > 100, continue folate, start vitamin B12 supplement, B12 level ordered (3) Alcoholic hepatitis: elevated LFTS AST 335, ALT 172, alk phos 134, total bilirubin 1.2 Likely in setting of alcohol abuse AST greater than ALT Given evidence of pancreatitis, obtained liver ultrasound to rule out obstructive process Acute hepatitis panel -negative LFTs trending down Liver US - No cholelithiasis or sonographic evidence of acute cholecystitis. No biliary ductal dilation. Hepatomegaly with hepatic steatosis. (4) Electrolyte abnormality: Hypophosphatemia, Phos 2.1, replete and monitor Hypomagnesemia, mag 1.5, likely due to IV fluids and n.p.o. status, replete and monitor Mild hypokalemia, goal potassium over 4, replete and monitor Banana bag ordered in ED; then Maintenance LR @ 200/hr (5) Depression: Patient previously had been on Paxil and trazodone States has not been taking for the past 2 to 3-weeks Currently denies depressed mood, SI or HI; however per ED note day prior, as well as encounters in [facility] appears she has been struggling with anxiety and depression since development of pandemic Low threshold for psych consult (6) Asthma: No acute exacerbation Continue Advair, PRN albuterol (7) DVT prophylaxis: SCDs, teds Disposition: PCU, case management consulted for consideration for alcohol rehab Patient's mother updated over the phone. Follow-up: PCP Dr. Whatley upon discharge Admission and Anticipated Discharge Date Admission Date: December 09, 2019 Subjective Neutropenia for the past 2 days. Neutropenic diet and neutropenic precautions. This morning, patient febrile, over 39C. Blood cultures ordered, chest x-ray ordered, UA ordered. Empiric antibiotics started with vancomycin and cefepime. She is drowsy, however answers questions appropriately. She only complains of mild tenderness at left upper abdominal quadrant. CT abdomen ordered. Review of Systems Review of Systems: All systems reviewed & are unremarkable except as noted in HPI & below Constitutional: + fever and + chills Respiratory: no cough and no dyspnea Cardiovascular: no chest pain and no palpitations Gastrointestinal: + abdominal pain (Mild abdominal tenderness at left upper quadrant); no nausea and no vomiting Physical Exam Physical Exam: Constitutional: WD/WN, middle-aged female lying in bed, groggy and sweaty, but answering questions appropriately Head: Normocephalic, Atraumatic Eyes: PERRL, EOMI, normal, anicteric sclerae ENMT: external ear and nose normal, oropharynx normal Neck: trachea midline, no thyromegaly normal visual inspection Respiratory: normal respiratory effort, lungs clear to auscultation, no wheeze, rales, rhonchi. Normal insp/exp effort, no accessory muscle use Cardiovascular: regular, mildly tachycardic, no edema Vessels: no JVD or carotid bruit Chest: normal inspection of chest Abdomen: some distension of abdomen, normal bowel sounds, soft, mildly tender to palpation at LUQ Musculoskeletal: no cyanosis or clubbing, extremities motor strength 5/5, moves extremities spontaneously Skin: no rashes, warm and dry, sweaty, normal turgor Neurologic: No tremors noted today, PERRL, EOMI, no face palsy, no dysarthria Psychiatric: A+Ox3, euthymic affect, sleepy, but easily arousable, answers questions slowly but appropriately Results & Data Results & Data ([facility]) Vital Signs (Past 12 Hours) Vital Signs Temp Pulse Pulse Pulse Resp BP BP 12/14/19 19:43 36.6 C 117 H 18 134/62 12/14/19 19:13 108 H 16 12/14/19 17:46 36.4 C L 12/14/19 16:12 39.6 C H 114 H 18 136/85 12/14/19 15:21 144 H 24 12/14/19 15:00 110 H 12/14/19 12:11 37.7 C H 143 H 18 104/68 12/14/19 10:00 38.8 C H 130 H 24 122/80 Pulse Ox 12/14/19 19:43 95 12/14/19 19:13 95 12/14/19 17:46 12/14/19 16:12 95 12/14/19 15:21 97 12/14/19 15:00 12/14/19 12:11 93 12/14/19 10:00 91 Laboratory Results 12/14/19 12/14/19 12/14/19 Range/Units 09:45 05:47 05:47 WBC 2.89 L (4.8-10.8) K/uL RBC 3.76 L (4.2-5.4) M/uL Hgb 12.5 (12.0-16.0) g/dL Hct 40.2 (37-47) % MCV 106.9 H (80-100) fL MCH 33.2 (25-34) pg MCHC 31.1 L (32-36) g/dL RDW Std Deviation 51.0 H (36.4-46.3) fL RDW Coeff of Suzanne 13.1 (11.5-14.5) % Plt Count 136 (130-400) K/uL MPV 10.5 H (7.4-10.4) fL Immature Gran % (Auto) 0.3 % Neut % (Auto) 79.3 % Lymph % (Auto) 10.2 % Florence % (Auto) 8.6 % Eos % (Auto) 1.3 % Baso % (Auto) 0.3 % Neut # (Auto) 2.40 (1.4-6.5) K/uL Lymph # (Auto) 0.31 L (1.2-3.4) K/uL Florence # (Auto) 0.26 (0.11-0.59) K/uL Eos # (Auto) 0.04 (0-0.5) K/uL Baso # (Auto) 0.01 (0-0.2) K/uL Immature Gran # (Auto) 0.01 (0.00-0.02) K/uL Absolute Nucleated RBC 0.00 (0-0) K/uL Nucleated RBC % (auto) 0.0 % Sodium 140 (136-145) mmol/L Potassium 4.3 D (3.5-5.1) mmol/L Chloride 106 (98-107) mmol/L Carbon Dioxide 27 (21-32) mmol/L Anion Gap 7.0 (3-11) BUN 6 L (7-18) mg/dl Creatinine 0.85 (0.6-1.2) mg/dl Est Cr Clr Drug Dosing 85.8 ml/min Est GFR ( Amer) 96.6 Est GFR (Non-Af Amer) 83.3 BUN/Creatinine Ratio 6.8 L (10-20) Glucose 123 H (70-99) mg/dl Calcium 10.2 H (8.5-10.1) mg/dl Total Bilirubin 0.7 (0.2-1) mg/dl AST 84 H (15-37) U/L ALT 87 H (12-78) U/L Alkaline Phosphatase 99 (45-117) U/L Total Protein 6.9 (6.4-8.2) gm/dl Albumin 3.3 L (3.4-5.0) gm/dl Globulin 3.6 (2.5-4.0) gm/dl Albumin/Globulin Ratio 0.9 (0.9-2) Lipase 1237 H (73-393) U/L Vitamin B12 (211-911) pg/ml Procalcitonin 0.18 (0-0.5) ng/ml 12/13/19 Range/Units 18:21 WBC (4.8-10.8) K/uL RBC (4.2-5.4) M/uL Hgb (12.0-16.0) g/dL Hct (37-47) % MCV (80-100) fL MCH (25-34) pg MCHC (32-36) g/dL RDW Std Deviation (36.4-46.3) fL RDW Coeff of Suzanne (11.5-14.5) % Plt Count (130-400) K/uL MPV (7.4-10.4) fL Immature Gran % (Auto) % Neut % (Auto) % Lymph % (Auto) % Florence % (Auto) % Eos % (Auto) % Baso % (Auto) % Neut # (Auto) (1.4-6.5) K/uL Lymph # (Auto) (1.2-3.4) K/uL Florence # (Auto) (0.11-0.59) K/uL Eos # (Auto) (0-0.5) K/uL Baso # (Auto) (0-0.2) K/uL Immature Gran # (Auto) (0.00-0.02) K/uL Absolute Nucleated RBC (0-0) K/uL Nucleated RBC % (auto) % Sodium (136-145) mmol/L Potassium (3.5-5.1) mmol/L Chloride (98-107) mmol/L Carbon Dioxide (21-32) mmol/L Anion Gap (3-11) BUN (7-18) mg/dl Creatinine (0.6-1.2) mg/dl Est Cr Clr Drug Dosing ml/min Est GFR ( Amer) Est GFR (Non-Af Amer) BUN/Creatinine Ratio (10-20) Glucose (70-99) mg/dl Calcium (8.5-10.1) mg/dl Total Bilirubin (0.2-1) mg/dl AST (15-37) U/L ALT (12-78) U/L Alkaline Phosphatase (45-117) U/L Total Protein (6.4-8.2) gm/dl Albumin (3.4-5.0) gm/dl Globulin (2.5-4.0) gm/dl Albumin/Globulin Ratio (0.9-2) Lipase (73-393) U/L Vitamin B12 701 (211-911) pg/ml Procalcitonin (0-0.5) ng/ml Medications Administered Current Inpatient Medications Acetaminophen (Tylenol) 1,000 mg PO Q8 ARMANI Stop: 01/13/20 17:29 Last Admin: 12/14/19 17:45 Dose: 1,000 mg Documented by: Al Hydrox/Mg Hydrox/Simethicone (Maalox) 15 ml PO Q4H PRN PRN Reason: Dyspepsia Stop: 01/08/20 09:26 Last Admin: 12/12/19 22:37 Dose: 15 ml Documented by: Albuterol (Ventolin Hfa) 2 puffs INH Q6H PRN PRN Reason: Shortness Of Breath Stop: 01/08/20 09:26 Last Admin: 12/13/19 18:49 Dose: 2 puffs Documented by: Albuterol (Duoneb) 3 ml NEB Q4R ARMANI Stop: 01/13/20 14:59 Last Admin: 12/14/19 19:12 Dose: 3 ml Documented by: Cyanocobalamin (Vitamin B-12) 1,000 mcg PO QAM@0800 [facility] Stop: 01/12/20 19:59 Last Admin: 12/14/19 08:39 Dose: 1,000 mcg Documented by: Fluticasone/Vilanterol (Breo Ellipta 200/25 Mcg Inh) 1 puffs INH QAM [facility]; Protocol Stop: 01/08/20 09:59 Last Admin: 12/14/19 08:40 Dose: 1 puffs Documented by: Folic Acid (Folvite) 1 mg PO QAM [facility] Stop: 01/09/20 08:59 Last Admin: 12/14/19 08:39 Dose: 1 mg Documented by: Gabapentin (Neurontin) 600 mg PO Q12H [facility] Stop: 12/15/19 04:01 Last Admin: 12/14/19 15:49 Dose: 600 mg Documented by: Gabapentin (Neurontin) 600 mg PO Q24H [facility] Stop: 12/16/19 04:01 Guaifenesin (Mucinex) 600 mg PO Q12 [facility] Stop: 01/13/20 20:59 Lactated Ringer's (Lr) 1,000 mls @ 150 mls/hr IV .Q6H40M [facility] Stop: 01/08/20 09:26 Last Admin: 12/14/19 13:39 Dose: 150 mls/hr Documented by: Lorazepam (Ativan) 1 mg in 2 mls @ 2 mls/min IV UD PRN; Protocol PRN Reason: EtOH Withdrawl AWSS Score 6,7 Stop: 01/08/20 09:26 Last Admin: 12/14/19 13:53 Dose: 0.5 mls/min Documented by: Lorazepam (Ativan) 2 mg in 4 mls @ 4 mls/min IV UD PRN; Protocol PRN Reason: EtOH Withdrawl AWSS Score 8,9 Stop: 01/08/20 09:26 Last Admin: 12/14/19 08:55 Dose: 4 mls/min Documented by: Lorazepam (Ativan) 3 mg in 6 mls @ 4 mls/min IV ONCE PRN; Protocol PRN Reason: EtOH Withdrawl AWSS Score >=10 Stop: 01/08/20 09:26 Cefepime HCl 2,000 mg/ Syringe 20 mls @ 5 mls/min IV Q8H [facility] Stop: 12/16/19 17:59 Last Admin: 12/14/19 17:41 Dose: 5 mls/min Documented by: Vancomycin HCl 1,000 mg/ (Sodium Chloride) 270 mls @ 125 mls/hr IV Q8H [facility] Stop: 12/16/19 17:59 Last Infusion: 12/14/19 19:59 Dose: Infused Documented by: Lorazepam (Ativan) 0.5 mg in 1 mls @ 0.5 mls/min IV UD PRN PRN Reason: Agitation Stop: 01/13/20 17:35 Ioversol (Optiray 320 100ml) 93 ml IV ONCE PRN PRN Reason: Interaction Checking Stop: 12/18/19 14:08 Last Admin: 12/14/19 14:10 Dose: 93 ml Documented by: Loperamide HCl (Imodium) 2 mg PO NOW [facility] Stop: 01/09/20 10:59 Last Admin: 12/10/19 12:34 Dose: 2 mg Documented by: Magnesium Hydroxide (Milk Of Magnesia) 30 ml PO Q12H PRN PRN Reason: Constipation Stop: 01/08/20 09:26 Miscellaneous Information (Cefepime Consult Active) 1 ea N/A UD PRN PRN Reason: Consult Stop: 01/13/20 08:56 Miscellaneous Information (Consult) 1 ea N/A UD PRN PRN Reason: Consult Stop: 01/13/20 09:02 Multivitamins (Multivitamin Tab) 1 tab PO QAM [facility] Stop: 01/08/20 09:26 Last Admin: 12/14/19 08:39 Dose: 1 tab Documented by: Ondansetron HCl (Zofran) 4 mg IV Q6H PRN PRN Reason: Nausea Stop: 01/08/20 09:26 Polyethylene Glycol (Miralax Powder Packet) 17 gm PO DAILY PRN PRN Reason: Constipation Stop: 01/08/20 09:26 Thiamine HCl (Vitamin B-1) 100 mg PO QAM [facility] Stop: 01/09/20 08:59 Last Admin: 12/14/19 08:39 Dose: 100 mg Documented by: (1) Depression Depression Type: unspecified Qualified Code(s): F32.9 - Major depressive disorder, single episode, unspecified (2) Alcoholic hepatitis Ascites presence: without ascites Qualified Code(s): K70.10 - Alcoholic hepatitis without ascites (3) Asthma Asthma complication type: unspecified Asthma persistence: unspecified Asthma severity: unspecified severity Qualified Code(s): J45.909 - Unspecified asthma, uncomplicated
[2019-12-14] MEDS: guaiFENesin 600 MG TABCR PO SCH (23:36)
[2019-12-15] MEDS: VANCOMYCIN HCL 1,000 MG in SODIUM CHLORIDE 0.9% 250 ML IV SCH ×3 (01:25→18:04)
[2019-12-15] MEDS: CEFEPIME 2,000 MG in SYRINGE 7.5 ML IV SCH ×3 (01:25→18:04)
[2019-12-15] MEDS: ALBUT/IPRATROP 3MG/0.5MG NEB 3 ML VIAL NEB SCH ×6 (03:15→22:44)
[2019-12-15] MEDS: LACTATED RINGER'S 1,000 ML IV SCH ×4 (03:44→23:17)
[2019-12-15] MEDS: GABAPENTIN 600 MG TAB PO SCH (03:45)
[2019-12-15] MEDS: ACETAMINOPHEN 500 MG TAB PO SCH ×3 (06:26→20:34)
--- NOTE | 2019-12-15 06:50 | Ultrasound Report ---
US venous doppler LE BI HISTORY: Pain. Edema. fever COMPARISON STUDY: None. FINDINGS: There is normal compressibility, flow, and augmentation within the bilateral lower extremit y deep venous systems. IMPRESSION: No DVT within the right or left lower extremity. ACT 112: Negative or not required by law. The above report was generated using voice recognition software. It may contain grammatical, syntax or spelling errors. Electronically signed by: Alvin Kingston M.D. 12/15/2019 6:48 AM
[2019-12-15 09:25] LABS: Basophils # (auto) 0.01 K/uL (0-0.2); Basophils % (auto) 0.5 %; Hemoglobin 11.9 g/dL (12.0-16.0); Immature Granulocytes # (auto) 0.01 K/uL (0.00-0.02); Immature Granulocytes % (auto) 0.5 %; Lymphocytes # (auto) 0.33 K/uL (1.2-3.4); Lymphocytes % (auto) 16.6 %; Mean Corpuscular Hemoglobin 35.3 pg (25-34); Mean Corpuscular Volume 103.9 fL (80-100); Mean Platelet Volume 10.2 fL (7.4-10.4); Monocytes # (auto) 0.34 K/uL (0.11-0.59); Monocytes % (auto) 17.1 %; Neutrophils % (auto) 65.3 %; Platelet Count 117 K/uL (130-400); RDW Coefficient of Variation 13.3 % (11.5-14.5); RDW Standard Deviation 50.4 fL (36.4-46.3); Red Blood Count 3.37 M/uL (4.2-5.4); White Blood Count 1.99 K/uL (4.8-10.8)
[2019-12-15 10:06] LABS: Albumin Level 3.1 gm/dl (3.4-5.0); BUN Creatinine Ratio 6.7 (10-20); Calcium 9.6 mg/dl (8.5-10.1); Creatinine Clr Calc Pharmacy 86.9 ml/min; Est GFR (Non-African American) 84.5; Potassium 3.3 mmol/L (3.5-5.1)
[2019-12-15 10:08] LABS: Albumin Globulin Ratio 0.9 (0.9-2); Bilirubin,Total 0.8 mg/dl (0.2-1); Globulin 3.5 gm/dl (2.5-4.0); Total Protein 6.6 gm/dl (6.4-8.2)
[2019-12-15] MEDS: guaiFENesin 600 MG TABCR PO SCH ×2 (10:08→20:34)
[2019-12-15] MEDS: FLUTICASONE/VILANTEROL 200/25MCG 14 PUFFS/INHALER INH SCH (10:08)
[2019-12-15] MEDS: MULTIVITAMIN TAB PO SCH (10:14)
[2019-12-15] MEDS: THIAMINE HCL 100 MG TAB PO SCH (10:14)
[2019-12-15] MEDS: FOLIC ACID 1 MG TAB PO SCH (10:15)
[2019-12-15] MEDS: CYANOCOBALAMIN 500 MCG TABLET (VITAMIN B-12) PO SCH (10:15)
[2019-12-15] MEDS ORDERED: POTASSIUM CHLORIDE 20 MEQ TABCR PO STA (11:45)
--- NOTE | 2019-12-15 15:30 | Hospitalist Progress Note ---
Date of Service December 15, 2019 Assessment & Plan (1) Alcohol withdrawal: This is a 44-year-old female who has significant past medical history of alcohol abuse, asthma, MDD, panic disorder who presents to ED secondary to alcohol withdrawal symptoms x1 day. He was admitted with another episode of alcohol withdrawal symptoms Initially she received Librium and later on that was changed to gabapentin protocol She remains drowsy and getting to sleep immediately after a short conversation We will continue with current treatment (2) Alcoholic hepatitis: Elevated LFTS AST 335, ALT 172, alk phos 134, total bilirubin 1.2 Likely in setting of alcohol abuse AST greater than ALT Acute hepatitis panel -negative Liver US - No cholelithiasis or sonographic evidence of acute cholecystitis. No biliary ductal dilation. Hepatomegaly with hepatic steatosis. Will monitor hepatitis panel (3) Gram-positive cocci bacteremia: Has had fever more than 38 C yesterday Has been on intravenous vancomycin and cefepime since then Noted to have gram-positive cocci in clusters bacteremia Await further sensitivity Source of infection not yet known MRSA screen has been positive. Doubt any staph pneumonia Echocardiogram did not show any overt vegetation Continue current antibiotic Neutropenia -Patient presented with low white blood cell count on admission, likely due to bone marrow suppression from alcohol use -Also on Librium taper which could decrease white blood cell count,switched to gabapentin taper -Continue diet and neutropenic precautions -Peripheral blood smear obtainednot specific, macrocytosis noted, no evidence of malignancy -Macrocytosis, MCV > 100, continue folate, start vitamin B12 supplement, B12 level ordered (4) Acute pancreatitis: elevated lipase 2802, presents with n/v No abdominal pain likely 2/2 to significant ETOH abuse given elevated LFTS ordered RUQ u/s to rule out obstructive process Was on n.p.o. and received intravenous fluid GI consulted-appreciate input and recommendation Lipase increased after admission, GI recommended to obtain MRCP MRCP negative for pancreatitis, overall unremarkable study We will continue to follow (5) Electrolyte abnormality: Secondary to alcoholism and pancreatitis Hypophosphatemia, Phos 2.1, replete and monitor Hypomagnesemia, mag 1.5, likely due to IV fluids and n.p.o. status, replete and monitor Mild hypokalemia, goal potassium over 4, replete and monitor Banana bag ordered in ED; then Maintenance LR @ 200/hr We will monitor electrolytes and replace accordingly (6) Depression: Patient previously had been on Paxil and trazodone States has not been taking for the past 2 to 3-weeks Currently denies depressed mood, SI or HI; however per ED note day prior, as well as encounters in [facility] appears she has been struggling with anxiety and depression since development of pandemic Low threshold for psych consult (7) Asthma: No acute exacerbation Continue Advair, PRN albuterol DVT prophylaxis SCDs CODE STATUS Full (8) Anxiety: Admission and Anticipated Discharge Date Admission Date: December 09, 2019 Subjective The patient was seen and examined in telemetry unit She is a 44-year-old female with history of alcohol abuse medical admission to the hospital with withdrawal, asthma, panic disorder admitted with another attack of alcohol withdrawal symptoms She also noted to have acute pancreatitis and alcoholic hepatitis She has been complaining of occasional increasing drowsiness and has been going to sleep right away after minimal conversation Has been feeling little better this morning and denies any acute distress Review of Systems Review of Systems: Unobtainable due to mental health condition Physical Exam Physical Exam: Lying in bed comfortably Constitutional: well developed, well nourished, + ill appearing and + obese; no acute distress Eyes: PERRL, conjunctivae normal, anicteric sclerae ENMT: external ear and nose normal, oropharynx normal Neck: trachea midline, no thyromegaly Respiratory: normal respiratory effort; no respiratory distress Auscultation: + diminished lung sounds (Minimal crackles at the bases) Cardiovascular: Rate/Rhythm: regular rate and regular rhythm Heart Sounds: no murmur Gastrointestinal (Abdomen): Inspection/Auscultation: abdomen normal to inspection and normal bowel sounds; abdomen not distended Percussion/Palpation: abdomen soft; abdomen nontender Musculoskeletal: No acute arthritis involving any joints Neurologic: moves all extremities; no focal motor deficits Occasional drowsiness and requested to sleep right away after a short conversation Lymphatic: no cervical or axillary lymphadenopathy Results & Data Results & [facility] ([facility]) Vital Signs (Past 12 Hours) Vital Signs Temp Pulse Pulse Pulse Resp BP BP 12/15/19 15:20 91 H 12/15/19 11:26 92 H 16 12/15/19 11:05 36.3 C L 87 18 106/67 12/15/19 10:09 36.9 C 12/15/19 08:00 119 H 12/15/19 07:58 38.0 C H 123 H 22 114/74 12/15/19 06:54 118 H 18 12/15/19 03:52 36.9 C 97 H 20 118/73 Pulse Ox 12/15/19 15:20 12/15/19 11:26 93 12/15/19 11:05 92 12/15/19 10:09 12/15/19 08:00 12/15/19 07:58 90 12/15/19 06:54 91 12/15/19 03:52 91 Laboratory Results Short CBC 12/15/19 Range/Units 08:55 WBC 1.99 L (4.8-10.8) K/uL Hgb 11.9 L (12.0-16.0) g/dL Hct 35.0 L (37-47) % Plt Count 117 L (130-400) K/uL BMP 12/15/19 08:55 Sodium 140 Potassium 3.3 L D Chloride 107 Carbon Dioxide 25 BUN 6 L Creatinine 0.84 Glucose 128 H Calcium 9.6 Liver Function 12/15/19 Range/Units 08:55 Total Bilirubin 0.8 (0.2-1) mg/dl AST 107 H (15-37) U/L ALT 83 H (12-78) U/L Alkaline Phosphatase 88 (45-117) U/L Albumin 3.1 L (3.4-5.0) gm/dl Medications Administered Current Inpatient Medications Acetaminophen (Tylenol) 1,000 mg PO Q8 ARMANI Stop: 01/13/20 17:29 Last Admin: 12/15/19 14:14 Dose: 1,000 mg Documented by: Al Hydrox/Mg Hydrox/Simethicone (Maalox) 15 ml PO Q4H PRN PRN Reason: Dyspepsia Stop: 01/08/20 09:26 Last Admin: 12/12/19 22:37 Dose: 15 ml Documented by: Albuterol (Ventolin Hfa) 2 puffs INH Q6H PRN PRN Reason: Shortness Of Breath Stop: 01/08/20 09:26 Last Admin: 12/13/19 18:49 Dose: 2 puffs Documented by: Albuterol (Duoneb) 3 ml NEB Q4R [facility] Stop: 01/13/20 14:59 Last Admin: 12/15/19 15:32 Dose: 3 ml Documented by: Cyanocobalamin (Vitamin B-12) 1,000 mcg PO QAM@0800 [facility] Stop: 01/12/20 19:59 Last Admin: 12/15/19 10:15 Dose: 1,000 mcg Documented by: Fluticasone/Vilanterol (Breo Ellipta 200/25 Mcg Inh) 1 puffs INH QAM [facility]; Protocol Stop: 01/08/20 09:59 Last Admin: 12/15/19 10:08 Dose: 1 puffs Documented by: Folic Acid (Folvite) 1 mg PO QAM [facility] Stop: 01/09/20 08:59 Last Admin: 12/15/19 10:15 Dose: 1 mg Documented by: Gabapentin (Neurontin) 600 mg PO Q24H [facility] Stop: 12/16/19 04:01 Guaifenesin (Mucinex) 600 mg PO Q12 [facility] Stop: 01/13/20 20:59 Last Admin: 12/15/19 10:08 Dose: 600 mg Documented by: Lactated Ringer's (Lr) 1,000 mls @ 150 mls/hr IV .Q6H40M [facility] Stop: 01/08/20 09:26 Last Admin: 12/15/19 10:15 Dose: 150 mls/hr Documented by: Lorazepam (Ativan) 1 mg in 2 mls @ 2 mls/min IV UD PRN; Protocol PRN Reason: EtOH Withdrawl AWSS Score 6,7 Stop: 01/08/20 09:26 Last Admin: 12/14/19 13:53 Dose: 0.5 mls/min Documented by: Lorazepam (Ativan) 2 mg in 4 mls @ 4 mls/min IV UD PRN; Protocol PRN Reason: EtOH Withdrawl AWSS Score 8,9 Stop: 01/08/20 09:26 Last Admin: 12/14/19 08:55 Dose: 4 mls/min Documented by: Lorazepam (Ativan) 3 mg in 6 mls @ 4 mls/min IV ONCE PRN; Protocol PRN Reason: EtOH Withdrawl AWSS Score >=10 Stop: 01/08/20 09:26 Cefepime HCl 2,000 mg/ Syringe 20 mls @ 5 mls/min IV Q8H [facility] Stop: 12/16/19 17:59 Last Admin: 12/15/19 10:07 Dose: 5 mls/min Documented by: Vancomycin HCl 1,000 mg/ (Sodium Chloride) 270 mls @ 125 mls/hr IV Q8H [facility] Stop: 12/28/19 17:59 Last Infusion: 12/15/19 12:17 Dose: Infused Documented by: Lorazepam (Ativan) 0.5 mg in 1 mls @ 0.5 mls/min IV UD PRN PRN Reason: Agitation Stop: 01/13/20 17:35 Ioversol (Optiray 320 100ml) 93 ml IV ONCE PRN PRN Reason: Interaction Checking Stop: 12/18/19 14:08 Last Admin: 12/14/19 14:10 Dose: 93 ml Documented by: Loperamide HCl (Imodium) 2 mg PO NOW [facility] Stop: 01/09/20 10:59 Last Admin: 12/10/19 12:34 Dose: 2 mg Documented by: Magnesium Hydroxide (Milk Of Magnesia) 30 ml PO Q12H PRN PRN Reason: Constipation Stop: 01/08/20 09:26 Miscellaneous Information (Cefepime Consult Active) 1 ea N/A UD PRN PRN Reason: Consult Stop: 01/13/20 08:56 Miscellaneous Information (Consult) 1 ea N/A UD PRN PRN Reason: Consult Stop: 01/13/20 09:02 Multivitamins (Multivitamin Tab) [address] [facility]: 01/08/20 09:26 Last Admin: 12/15/19 10:14 Dose: 1 tab Documented by: Ondansetron HCl (Zofran) 4 mg IV Q6H PRN PRN Reason: Nausea Stop: 01/08/20 09:26 Polyethylene Glycol (Miralax Powder Packet) 17 gm PO DAILY PRN PRN Reason: Constipation Stop: 01/08/20 09:26 Thiamine HCl (Vitamin B-1) 100 mg PO QAM [facility] Stop: 01/09/20 08:59 Last Admin: 12/15/19 10:14 Dose: 100 mg Documented by: (1) Depression Depression Type: unspecified Qualified Code(s): F32.9 - Major depressive disorder, single episode, unspecified (2) Alcoholic hepatitis Ascites presence: without ascites Qualified Code(s): K70.10 - Alcoholic hepatitis without ascites (3) Asthma Asthma complication type: unspecified Asthma persistence: unspecified Asthma severity: unspecified severity Qualified Code(s): J45.909 - Unspecified asthma, uncomplicated
[2019-12-15] MEDS ORDERED: VANCOMYCIN TROUGH ONE (17:30)
[2019-12-15 18:33] LABS: Appearance Urine Clear (Clear); Bilirubin Urine Negative (Negative); Blood Urine Negative (Negative); Color Urine Yellow; Glucose Urine UA Negative (Negative); Ketones Urine Negative (Negative); Leukocyte Esterase Urine Negative (Negative); Nitrite Urine Negative (Negative); Protein Urine Negative (Negative); Urobilinogen Urine Negative (Negative)
--- NOTE | 2019-12-15 21:48 | Pharmacy Report ---
Pharmacy Abx Dose Short Note - Date of Service December 15, 2019 - Assessment & Plan Assessment 44 year old F receiving Vancomycin for treatment of gram positive bacteremia. Day # 2 of antimicrobial therapy. Plan Vancomycin * Trough level of 16.5 mcg/mL is therapeutic despite being drawn prior to steady state. Expect trough to rise a bit toward goal trough of 20 mcg/mL. * Continue dose of 1000 mg IV every 8 hours * Goal trough level for gram positive bacteremia : ~20 mcg/mL * Trough level ordered for: 12/16/19 @0930 when drug levels expected to be at steady state. Pharmacy will continue to follow and will adjust dose/frequency as necessary. Thank you.
[2019-12-15] MEDS ORDERED: GABAPENTIN 600 MG TAB PO SCH (22:00)
[2019-12-16] MEDS: LORazepam 0.5 MG/1 ML VIAL IV PRN (00:23)
[2019-12-16] MEDS ORDERED: VANCOMYCIN TROUGH ONE ×2 (01:30→09:30)
[2019-12-16] MEDS: VANCOMYCIN HCL 1,000 MG in SODIUM CHLORIDE 0.9% 250 ML IV SCH ×3 (01:35→18:04)
[2019-12-16] MEDS: CEFEPIME 2,000 MG in SYRINGE 7.5 ML IV SCH ×2 (01:36→09:32)
[2019-12-16] MEDS: ALBUT/IPRATROP 3MG/0.5MG NEB 3 ML VIAL NEB SCH ×7 (03:15→23:50)
[2019-12-16] MEDS ORDERED: GABAPENTIN 600 MG TAB PO SCH (04:00)
[2019-12-16] MEDS: LACTATED RINGER'S 1,000 ML IV SCH ×3 (05:32→21:51)
[2019-12-16] MEDS: ACETAMINOPHEN 500 MG TAB PO SCH ×3 (06:01→21:49)
[2019-12-16] MEDS: ALBUTEROL HFA 8 GM INHALER INH PRN (06:09)
[2019-12-16 07:12] LABS: Albumin Level 2.8 gm/dl (3.4-5.0); BUN Creatinine Ratio 9.5 (10-20); Calcium 9.5 mg/dl (8.5-10.1); Creatinine Clr Calc Pharmacy 101.9 ml/min; Est GFR (African American) 116.1; Est GFR (Non-African American) 100.2; Potassium 3.7 mmol/L (3.5-5.1)
[2019-12-16 07:15] LABS: Albumin Globulin Ratio 0.9 (0.9-2); Bilirubin,Total 0.6 mg/dl (0.2-1); Globulin 3.1 gm/dl (2.5-4.0); Total Protein 5.9 gm/dl (6.4-8.2)
[2019-12-16 07:29] LABS: Hematocrit (blood only) 35.9 % (37-47); Hemoglobin 11.6 g/dL (12.0-16.0); Mean Corpuscular Hemoglobin 34.1 pg (25-34); Mean Corpuscular Hgb Conc 32.3 g/dL (32-36); Mean Corpuscular Volume 105.6 fL (80-100); Mean Platelet Volume 10.8 fL (7.4-10.4); Platelet Count 149 K/uL (130-400); RDW Coefficient of Variation 13.4 % (11.5-14.5); RDW Standard Deviation 51.9 fL (36.4-46.3); White Blood Count 2.43 K/uL (4.8-10.8)
[2019-12-16 07:42] LABS: Basophils # (auto) 0.02 K/uL (0-0.2); Basophils % (auto) 0.8 %; Eosinophils # (auto) 0.05 K/uL (0-0.5); Eosinophils % (auto) 2.1 %; Immature Granulocytes # (auto) 0.01 K/uL (0.00-0.02); Immature Granulocytes % (auto) 0.4 %; Lymphocytes # (auto) 0.51 K/uL (1.2-3.4); Monocytes % (auto) 24.7 %; Neutrophils # (auto) 1.24 K/uL (1.4-6.5); Platelet Estimate Normal (Normal); Rouleaux 1+
[2019-12-16] MEDS: guaiFENesin 600 MG TABCR PO SCH ×2 (09:33→20:10)
[2019-12-16] MEDS: MULTIVITAMIN TAB PO SCH (09:33)
[2019-12-16] MEDS: FOLIC ACID 1 MG TAB PO SCH (09:34)
[2019-12-16] MEDS: CYANOCOBALAMIN 500 MCG TABLET (VITAMIN B-12) PO SCH (09:34)
[2019-12-16] MEDS: THIAMINE HCL 100 MG TAB PO SCH (09:34)
[2019-12-16] MEDS: FLUTICASONE/VILANTEROL 200/25MCG 14 PUFFS/INHALER INH SCH (10:45)
--- NOTE | 2019-12-16 10:55 | Pharmacy Report ---
Pharmacy Abx Dose Short Note - Date of Service December 16, 2019 - Assessment & Plan Assessment 44 year old F receiving Vancomycin & Cefepime for treatment of S. aureus bacteremia * Day #3 of antimicrobial therapy * 24 hr Tmax is 38.0C, PCT continues to increase (0.18 --> 0.36 --> 0.42), SCr slightly improved (0.84 --> 0.73) * 6/23 Blood cultures are growing S. aureus, awaiting sensitivities. In all likelihood, this is MRSA given positive nasal swab and positive blood PCR. Patient will require outpatient IV antibiotics. Depending on sensitivities, daptomycin may be more appropriate in the outpatient setting as it is once daily. Plan Vancomycin * Trough level of 17.3 mcg/mL is therapeutic for the second time on current dose * Continue dose of 1000 mg IV every 8 hours * Goal trough level: ~ 20 mcg/mL * Trough level ordered for Friday morning to ensure patient is not accumulating vancomycin Pharmacy will continue to follow and will adjust dose/frequency as necessary. Thank you.
--- NOTE | 2019-12-16 15:22 | Hospitalist Progress Note ---
Date of Service December 16, 2019 Assessment & Plan (1) Alcohol withdrawal: This is a 44-year-old female who has significant past medical history of alcohol abuse, asthma, MDD, panic disorder who presents to ED secondary to alcohol withdrawal symptoms x1 day. He was admitted with another episode of alcohol withdrawal symptoms Initially she received Librium and later on that was changed to gabapentin protocol She remains drowsy and getting to sleep immediately after a short conversation We will continue with current treatment Remains very drowsy without significant withdrawal symptoms (2) Alcoholic hepatitis: Elevated LFTS AST 335, ALT 172, alk phos 134, total bilirubin 1.2 Likely in setting of alcohol abuse AST greater than ALT Acute hepatitis panel -negative Liver US - No cholelithiasis or sonographic evidence of acute cholecystitis. No biliary ductal dilation. Hepatomegaly with hepatic steatosis. Will monitor hepatitis panel Liver function have been almost normalized (3) Gram-positive cocci bacteremia: Has had fever more than 38 C yesterday Has been on intravenous vancomycin and cefepime since then Noted to have gram-positive cocci in clusters bacteremia-Staphylococcus aureus and disease not MRSA and no sensitivities will be done Await further sensitivity Source of infection not yet known MRSA screen has been positive. Doubt any staph pneumonia Echocardiogram did not show any overt vegetation Continue current antibiotic We will get repeat chest x-ray today rule out any pneumonia Likely to de-escalate antibiotic with oral Augmentin Neutropenia -Patient presented with low white blood cell count on admission, likely due to bone marrow suppression from alcohol use -Also on Librium taper which could decrease white blood cell count,switched to gabapentin taper -Continue diet and neutropenic precautions -Peripheral blood smear obtainednot specific, macrocytosis noted, no evidence of malignancy -Macrocytosis, MCV > 100, continue folate, start vitamin B12 supplement, B12 level ordered CBC has been improving (4) Acute pancreatitis: elevated lipase 2802, presents with n/v No abdominal pain likely 2/2 to significant ETOH abuse given elevated LFTS ordered RUQ u/s to rule out obstructive process Was on n.p.o. and received intravenous fluid GI consulted-appreciate input and recommendation Lipase increased after admission, GI recommended to obtain MRCP MRCP negative for pancreatitis, overall unremarkable study We will continue to follow No signs and/or symptoms of pancreatitis (5) Electrolyte abnormality: Secondary to alcoholism and pancreatitis Hypophosphatemia, Phos 2.1, replete and monitor Hypomagnesemia, mag 1.5, likely due to IV fluids and n.p.o. status, replete and monitor Mild hypokalemia, goal potassium over 4, replete and monitor Banana bag ordered in ED; then Maintenance LR @ 200/hr We will monitor electrolytes and replace accordingly- have been normal (6) Depression: Patient previously had been on Paxil and trazodone States has not been taking for the past 2 to 3-weeks Currently denies depressed mood, SI or HI; however per ED note day prior, as well as encounters in [place] appears she has been struggling with anxiety and depression since development of pandemic Remains very depressed We will get psychiatric evaluation evaluation (7) Asthma: No acute exacerbation Continue Advair, PRN albuterol DVT prophylaxis SCDs CODE STATUS Full (8) Anxiety: Admission and Anticipated Discharge Date Admission Date: December 09, 2019 Subjective The patient was seen and examined in telemetry unit She is a 44-year-old female with history of alcohol abuse medical admission to the hospital with withdrawal, asthma, panic disorder admitted with another attack of alcohol withdrawal symptoms She also noted to have acute pancreatitis and alcoholic hepatitis She has been complaining of occasional increasing drowsiness and has been going to sleep right away after minimal conversation Has been feeling little better this morning and denies any acute distress 12/16/2019 The patient was seen and examined in telemetry unit She feels a little bit better today but remains drowsy and falls asleep quickly Denies any significant symptoms Will ask for PT and OT evaluation Review of Systems Constitutional: no fever and no chills Gastrointestinal: no abdominal pain (Mild abdominal tenderness at left upper quadrant), no nausea and no vomiting Neurologic: Patient still seems to be quite groggy, but answers questions appropriately and eating by herself Physical Exam Physical Exam: Lying in bed comfortably very sleepy Constitutional: well developed, well nourished, + ill appearing and + obese; no acute distress Eyes: PERRL, conjunctivae normal, anicteric sclerae ENMT: external ear and nose normal, oropharynx normal Neck: trachea midline, no thyromegaly Respiratory: normal respiratory effort; no respiratory distress Auscultation: + diminished lung sounds (Minimal crackles at the bases) Cardiovascular: Rate/Rhythm: regular rate and regular rhythm Heart Sounds: no murmur Gastrointestinal (Abdomen): Inspection/Auscultation: abdomen normal to inspection and normal bowel sounds; abdomen not distended Percussion/Palpation: abdomen soft; abdomen nontender Musculoskeletal: No acute arthritis in any joints Neurologic: moves all extremities; no focal motor deficits Lymphatic: no cervical or axillary lymphadenopathy Results & Data Results & Data ([facility]) Vital Signs (Past 12 Hours) Vital Signs Temp Pulse Pulse Pulse Resp BP BP 12/16/19 12:00 36.8 C 95 H 16 134/70 12/16/19 11:19 94 H 18 12/16/19 08:00 90 12/16/19 07:50 37.0 C 96 H 18 129/69 12/16/19 07:01 94 H 18 12/16/19 04:50 36.6 C 96 H 19 112/72 12/16/19 03:15 94 H 18 Pulse Ox 12/16/19 12:00 12/16/19 11:19 96 12/16/19 08:00 12/16/19 07:50 99 12/16/19 07:01 91 12/16/19 04:50 91 12/16/19 03:15 92 Laboratory Results Short CBC 12/16/19 Range/Units 06:15 WBC 2.43 L (4.8-10.8) K/uL Hgb 11.6 L (12.0-16.0) g/dL Hct 35.9 L (37-47) % Plt Count 149 (130-400) K/uL BMP 12/16/19 06:15 Sodium 141 Potassium 3.7 Chloride 110 H Carbon Dioxide 24 BUN 7 Creatinine 0.73 Glucose 94 Calcium 9.5 Liver Function 12/16/19 Range/Units 06:15 Total Bilirubin 0.6 (0.2-1) mg/dl AST 61 H (15-37) U/L ALT 69 (12-78) U/L Alkaline Phosphatase 77 (45-117) U/L Albumin 2.8 L (3.4-5.0) gm/dl Urine 12/15/19 Range/Units 18:20 Urine Color Yellow Urine Appearance Clear (Clear) Urine pH 8.0 H (4.5-7.5) Ur Specific [place] 1.010 (1.000-1.030) Urine Protein Negative (Negative) Urine Glucose (UA) Negative (Negative) Medications Administered Current Inpatient Medications Acetaminophen (Tylenol) 1,000 mg PO Q8 ARMANI Stop: 01/13/20 17:29 Last Admin: 12/16/19 13:50 Dose: 1,000 mg Documented by: Al Hydrox/Mg Hydrox/Simethicone (Maalox) 15 ml PO Q4H PRN PRN Reason: Dyspepsia Stop: 01/08/20 09:26 Last Admin: 12/12/19 22:37 Dose: 15 ml Documented by: Albuterol (Ventolin Hfa) 2 puffs INH Q6H PRN PRN Reason: Shortness Of Breath Stop: 01/08/20 09:26 Last Admin: 12/16/19 06:09 Dose: 2 puffs Documented by: Albuterol (Duoneb) 3 ml NEB Q4R [facility] Stop: 01/13/20 14:59 Last Admin: 12/16/19 15:10 Dose: 3 ml Documented by: Cyanocobalamin (Vitamin B-12) 1,000 mcg PO QAM@0800 [facility] Stop: 01/12/20 19:59 Last Admin: 12/16/19 09:34 Dose: 1,000 mcg Documented by: Fluticasone/Vilanterol (Breo Ellipta 200/25 Mcg Inh) 1 puffs INH QAM ARMANI; Protocol Stop: 01/08/20 09:59 Last Admin: 12/16/19 10:45 Dose: 1 puffs Documented by: Folic Acid (Folvite) 1 mg PO QAM [facility] Stop: 01/09/20 08:59 Last Admin: 12/16/19 09:34 Dose: 1 mg Documented by: Guaifenesin (Mucinex) 600 mg PO Q12 [facility] Stop: 01/13/20 20:59 Last Admin: 12/16/19 09:33 Dose: 600 mg Documented by: Lactated Ringer's (Lr) 1,000 mls @ 150 mls/hr IV .Q6H40M [facility] Stop: 01/08/20 09:26 Last Admin: 12/16/19 12:02 Dose: 150 mls/hr Documented by: Lorazepam (Ativan) 1 mg in 2 mls @ 2 mls/min IV UD PRN; Protocol PRN Reason: EtOH Withdrawl AWSS Score 6,7 Stop: 01/08/20 09:26 Last Admin: 12/14/19 13:53 Dose: 0.5 mls/min Documented by: Lorazepam (Ativan) 2 mg in 4 mls @ 4 mls/min IV UD PRN; Protocol PRN Reason: EtOH Withdrawl AWSS Score 8,9 Stop: 01/08/20 09:26 Last Admin: 12/14/19 08:55 Dose: 4 mls/min Documented by: Lorazepam (Ativan) 3 mg in 6 mls @ 4 mls/min IV ONCE PRN; Protocol PRN Reason: EtOH Withdrawl AWSS Score >=10 Stop: 01/08/20 09:26 Cefepime HCl 2,000 mg/ Syringe 20 mls @ 5 mls/min IV Q8H [facility] Stop: 12/16/19 17:59 Last Admin: 12/16/19 09:32 Dose: 5 mls/min Documented by: Vancomycin HCl 1,000 mg/ (Sodium Chloride) 270 mls @ 125 mls/hr IV Q8H [facility] Stop: 12/28/19 17:59 Last Infusion: 12/16/19 12:20 Dose: Infused Documented by: Lorazepam (Ativan) 0.5 mg in 1 mls @ 0.5 mls/min IV UD PRN PRN Reason: Agitation Stop: 01/13/20 17:35 Last Admin: 12/16/19 00:23 Dose: 0.5 mls/min Documented by: Ioversol (Optiray 320 100ml) 93 ml IV ONCE PRN PRN Reason: Interaction Checking Stop: 12/18/19 14:08 Last Admin: 12/14/19 14:10 Dose: 93 ml Documented by: Loperamide HCl (Imodium) 2 mg PO NOW [facility] Stop: 01/09/20 10:59 Last Admin: 12/10/19 12:34 Dose: 2 mg Documented by: Magnesium Hydroxide (Milk Of Magnesia) 30 ml PO Q12H PRN PRN Reason: Constipation Stop: 01/08/20 09:26 Miscellaneous Information (Cefepime Consult Active) 1 ea N/A UD PRN PRN Reason: Consult Stop: 12/16/19 17:59 Miscellaneous Information (Consult) 1 ea N/A UD PRN PRN Reason: Consult Stop: 01/13/20 09:02 Multivitamins (Multivitamin Tab) 1 tab PO QAM [facility] Stop: 01/08/20 09:26 Last Admin: 12/16/19 09:33 Dose: 1 tab Documented by: Ondansetron HCl (Zofran) 4 mg IV Q6H PRN PRN Reason: Nausea Stop: 01/08/20 09:26 Polyethylene Glycol (Miralax Powder Packet) 17 gm PO DAILY PRN PRN Reason: Constipation Stop: 01/08/20 09:26 Thiamine HCl (Vitamin B-1) 100 mg PO QAM [facility] Stop: 01/09/20 08:59 Last Admin: 12/16/19 09:34 Dose: 100 mg Documented by: (1) Alcoholic hepatitis Ascites presence: without ascites Qualified Code(s): K70.10 - Alcoholic hepatitis without ascites (2) Depression Depression Type: unspecified Qualified Code(s): F32.9 - Major depressive disorder, single episode, unspecified (3) Asthma Asthma severity: unspecified severity Asthma persistence: unspecified Asthma complication type: unspecified Qualified Code(s): J45.909 - Unspecified asthma, uncomplicated
--- NOTE | 2019-12-16 17:29 | XRay Report ---
XR chest 1V portable CLINICAL HISTORY: R/O pneumonia COMPARISON STUDY: 12/14/2019 FINDINGS: Bibasilar atelectatic change. Mid and upper lungs are clear. No change overall compared to the prior study. IMPRESSION: Stable bibasilar atelectasis. No new or interval findings compared to the prior exam. ACT 112: Negative or not required by law. The above report was generated using voice recognition software. It may contain grammatical, syntax or spelling errors. Electronically signed by: Alvin Kingston M.D. 12/16/2019 5:27 PM
[2019-12-17] MEDS: LACTATED RINGER'S 1,000 ML IV SCH ×4 (01:21→22:08)
[2019-12-17] MEDS: VANCOMYCIN HCL 1,000 MG in SODIUM CHLORIDE 0.9% 250 ML IV SCH ×2 (01:24→09:48)
[2019-12-17] MEDS: ALBUT/IPRATROP 3MG/0.5MG NEB 3 ML VIAL NEB SCH ×2 (02:39→07:21)
[2019-12-17] MEDS: ACETAMINOPHEN 500 MG TAB PO SCH ×3 (06:42→22:07)
[2019-12-17] MEDS ORDERED: ALBUT/IPRATROP 3MG/0.5MG NEB 3 ML VIAL NEB PRN (07:45)
[2019-12-17 07:52] LABS: Basophils # (auto) 0.01 K/uL (0-0.2); Basophils % (auto) 0.4 %; Eosinophils # (auto) 0.13 K/uL (0-0.5); Eosinophils % (auto) 5.2 %; Hematocrit (blood only) 34.2 % (37-47); Hemoglobin 11.4 g/dL (12.0-16.0); Immature Granulocytes # (auto) 0.01 K/uL (0.00-0.02); Immature Granulocytes % (auto) 0.4 %; Lymphocytes # (auto) 0.75 K/uL (1.2-3.4); Lymphocytes % (auto) 30.1 %; Mean Corpuscular Hemoglobin 34.7 pg (25-34); Mean Corpuscular Hgb Conc 33.3 g/dL (32-36); Mean Platelet Volume 10.6 fL (7.4-10.4); Monocytes # (auto) 0.48 K/uL (0.11-0.59); Monocytes % (auto) 19.3 %; Neutrophils # (auto) 1.11 K/uL (1.4-6.5); Neutrophils % (auto) 44.6 %; Platelet Count 167 K/uL (130-400); RDW Coefficient of Variation 13.2 % (11.5-14.5); Red Blood Count 3.29 M/uL (4.2-5.4); White Blood Count 2.49 K/uL (4.8-10.8)
[2019-12-17 08:18] LABS: Albumin Level 2.9 gm/dl (3.4-5.0); Calcium 9.9 mg/dl (8.5-10.1); Creatinine Clr Calc Pharmacy 107.8 ml/min; Est GFR (African American) 122.7; Est GFR (Non-African American) 105.9; Potassium 3.7 mmol/L (3.5-5.1)
[2019-12-17 08:21] LABS: Albumin Globulin Ratio 0.9 (0.9-2); Bilirubin,Total 0.5 mg/dl (0.2-1); Globulin 3.1 gm/dl (2.5-4.0)
[2019-12-17] MEDS: FLUTICASONE/VILANTEROL 200/25MCG 14 PUFFS/INHALER INH SCH (09:53)
[2019-12-17] MEDS: FOLIC ACID 1 MG TAB PO SCH (09:58)
[2019-12-17] MEDS: THIAMINE HCL 100 MG TAB PO SCH (09:58)
[2019-12-17] MEDS: MULTIVITAMIN TAB PO SCH (09:58)
[2019-12-17] MEDS: guaiFENesin 600 MG TABCR PO SCH ×2 (09:58→22:07)
[2019-12-17] MEDS: CYANOCOBALAMIN 500 MCG TABLET (VITAMIN B-12) PO SCH (09:58)
--- NOTE | 2019-12-17 10:54 | Psychiatric Consultation ---
Date of Consultation December 17, 2019 Impression / Recommendations Impression Dr. Kumar Herron was directly involved in review and discussion of the patient's case and participated in medical decision making regarding treatment recommendations. RECOMMENDATIONS: 12/16 - Pt with alcohol abuse, as well as combination of anxiety and depression per report. Pt reports her mood was "happy" up until 2-3 days prior to her hospitalization, reporting the fight with her mother as a significant stressor. Although it is quite possible patient may be minimizing both her alcohol use and the severity of her mood concerns, it would be suggested that the initial step be to work with the patient toward sobriety to allow for future assessment for mood/anxiety concerns to be genuine and unaffected by comorbid substance use. - No recommendation at this time to initiate antidepressant medication, especially in the setting of alcohol detoxification. Pt is agreeable with a referral for an outpatient psychiatrist who can further explore whether psychotropic medications are indicated. - Pt is agreeable with referral for IOP to address her alcohol use. Will attempt to assist with this referral process. - Pt denies SI/HI, SIB, A/V hallucinations and other signs/symptoms of psychosis. No indication at this time for inpatient psychiatric treatment. - Please reach out to our service with any additional questions or updates. Risk Factors Assessment Do You Have Access To A Gun?: No Psych History Identifying Data 44-year-old female admitted medically on 12/09/2019 after presenting to the ED for alcohol withdrawal. Pt does have a reported history of anxiety and depression and was seen on our consult service for similar concerns in 07/2019. Psychiatric consultation requested to evaluate patient for depression, as she reported to staff that her mood has worsened in the context of the current global pandemic. Chief Complaint "Um, well, the truthful answer would be my mother. She thinks I'm an alcoholic. I mean, I do drink." History of Present Illness Marcus Avelar is a 44-year-old female admitted medically on 12/17/2019 after presenting to the ED with concern for alcohol withdrawal. Pt was seen by Gastroenterology for elevated LFTs with suspected alcoholic pancreatitis. Pt was last seen on by our service on 07/2019 for similar presentation. Psychiatric consultation was requested to evaluate patient for depression. PMH is significant for history of alcohol abuse, asthma, depression, panic disorder, and history of alcoholic hepatitis and pancreatitis. She has historically taken paroxetine for depression and anxiety, but reported to staff that she has not taken the medication since 07/2019. Pt was cooperative with psychiatric evaluation. She reports that she was recommended to come to the hospital by her mother who "thinks I'm an alcoholic." Pt does admit to consuming 1-1.5 liters of vodka daily for the past 1-3 years, but states "I think the better plan would have been to cut back slowly, but my mother started calling people and eventually made me come in." Pt states that she is angry with her mother in the context of this hospitalization as well as an argument they had 2-3 days prior to the patient's hospitalization. Pt states that prior to this argument "I was happy. I didn't like my job, but I was happy." She denies any additional concerns related to her mood. Pt denies SI/HI or other acute psychiatric concerns at this time. Pt did admit to having taken paroxetine in the past, but felt the medication was not overly effective. She states her medications have historically been prescribed by her PCP. We discussed risks associated with initiating psychotropic medications in the setting of alcohol withdrawal, as well as ideally being able to observed mood when it is un-altered by alcohol in order to determine if medications are even indicated. Pt was agreeable with referral for an outpatient psychiatrist to further discuss these options. In discussing treatment options for her alcohol abuse, the patient opted to pursue intensive outpatient treatment as it would allow her to remain at home with her daughter while still pursuing treatment. Pt states she had been to AA in the past, but found it too confucianism for her taste. She is unwilling to consider inpatient D&A rehabilitation, but was informed this is the primary recommendation from our team. Pt denied other needs or concerns from our service at this time and was informed we would make efforts to initiate referrals with outpatient providers and for IOP. Past Psychiatric History Outpatient Services: Psychotropic medications have previously been prescribed by her PCP. Previous Psych Admissions: None Do You Have Access To A Gun?: No History of Previous Suicide Attempt: No Past Medication Trials: Per previous documentation: 1. Neurontin 2. Ativan - in context of alcohol withdrawal 3. Vistaril 4. Paxil Allergies Allergy/AdvReac Type Severity Reaction Status Date / Time theophylline AdvReac Unknown VERTIGO Verified 12/09/19 04:34 Home Medications Home Medications Medication Instructions Recorded Confirmed Type fluticasone propion-salmeterol 1 inh INHALATION QAM 02/27/19 12/09/19 History [Advair Diskus] albuterol sulfate [Ventolin HFA] 2 puff INHALATION Q6H PRN 07/23/19 12/09/19 History hydroxyzine HCl 10 mg PO Q8 PRN 07/23/19 12/09/19 History folic acid 1 mg PO QAM #0 tab 07/27/19 12/09/19 Rx multivitamin [Daily-Harris] 1 tab PO QAM #0 tab 07/27/19 12/09/19 Rx thiamine HCl (vitamin B1) [Vitamin 100 mg PO QAM #0 tab 07/27/19 12/09/19 Rx B-1] Family History Mother with depression and panic, paternal grandmother with alcohol abuse. Substance Abuse History Reports consuming 1 - 1.5 liters of vodka daily for the past 1-3 years. States she had been heavily drinking wine on a daily basis prior to this. Pt denies history of formal substance abuse treatment. 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 Marital Status: Number Of Children: 1 daughter, 16 y/o Beliefs That Will Affect Care: None History of Legal Problems: None Psychological Trauma History Comment: Denied Patient History Medical History Alcohol abuse (Acute) Anxiety (Chronic) Asthma (Chronic) Surgical History History of dental surgery History of esophagogastroduodenoscopy (EGD) Family History Father Prediabetes Grandfather (Paternal) Diabetes Mother Hypertension MVP (mitral valve prolapse) Social History Preferred Language: Tunisian Communication Ability: Effective 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 Alcohol Intake Frequency: Daily Hx Substance Use: No Childhood Exposure to Second-Hand Smoke: No Physical Exam Psychiatric: Orientation: alert, oriented x 3 and cooperative Apperance: appropriately dressed, appropriately groomed and appeared stated age Obese appearing female laying in bed in no acute distress. Pt is appropriately dressed in a hospital gown. Level of hygiene and grooming appear adequate. Eye Contact: good eye contact Motor Behavior: no abnormal motor movements (observed while sitting/laying on bed) Speech: normal rate/rhythm/volume of speech Affect: + blunted affect Mood: + angry mood ("I'm angry at [my mother]") Otherwise, reports mood was "happy" up until fight with her mother. Thought Process: goal directed thought process, clear/coherent thought process and thought association intact Thought Content: reality based without delusions; no hopelessness and no worthlessness Suicidal Thoughts: denies suicidal thoughts, denies suicidal plan and denies suicidal intent Homicidal Thoughts: denies homicidal thoughts Hallucinations: no auditory hallucinations and no visual hallucinations Cognition: recent memory grossly intact, attention grossly intact and language grossly intact Estimated Intelligence: consistent with education level Insight: + fair insight Judgement: + fair judgement Vital Signs (Past 24 Hours): Last Vital Signs Temp 36.8 C 12/17/19 07:11 Pulse 72 12/17/19 10:16 Resp 18 12/17/19 07:11 BP 111/72 12/17/19 07:11 Pulse Ox 92 12/17/19 07:11 Review of Systems Constitutional: denied Cardiovascular: denied Respiratory: denied Gastrointestinal: denied Neurological: denied Psychiatric: denies symptoms other than stated above Total of at least 10 systems reviewed, pertinent positives as above and in HPI. Results & Data (PSY) Medications Administered Acetaminophen (Tylenol) 1,000 mg PO Q8 ARMANI Stop: 01/13/20 17:29 Last Admin: 12/17/19 06:42 Dose: 1,000 mg Documented by: [id number] Admin: 12/16/19 21:49 Dose: 1,000 mg Documented by: [id number] Admin: 12/16/19 13:50 Dose: 1,000 mg Documented by: [id number] Admin: 12/16/19 06:01 Dose: 1,000 mg Documented by: [id number] Admin: 12/15/19 20:34 Dose: 1,000 mg Documented by: [id number] Admin: 12/15/19 14:14 Dose: 1,000 mg Documented by: [id number] Admin: 12/15/19 06:26 Dose: Not Given Documented by: [id number] Admin: 12/14/19 23:36 Dose: 1,000 mg Documented by: [id number] Admin: 12/14/19 17:45 Dose: 1,000 mg Documented by: [id number] Al Hydrox/Mg Hydrox/Simethicone (Maalox) 15 ml PO Q4H PRN PRN Reason: Dyspepsia Stop: 01/08/20 09:26 Last Admin: 12/12/19 22:37 Dose: 15 ml Documented by: [id number] Albuterol (Ventolin Hfa) 2 puffs INH Q6H PRN PRN Reason: Shortness Of Breath Stop: 01/08/20 09:26 Last Admin: 12/16/19 06:09 Dose: 2 puffs Documented by: [id number] Admin: 12/13/19 18:49 Dose: 2 puffs Documented by: [id number] Cyanocobalamin (Vitamin B-12) 1,000 mcg PO QAM@0800 ARMANI Stop: 01/12/20 19:59 Last Admin: 12/17/19 09:58 Dose: 1,000 mcg Documented by: [id number] Admin: 12/16/19 09:34 Dose: 1,000 mcg Documented by: [id number] Admin: 12/15/19 10:15 Dose: 1,000 mcg Documented by: [id number] Admin: 12/14/19 08:39 Dose: 1,000 mcg Documented by: [id number] Admin: 12/13/19 19:56 Dose: 1,000 mcg Documented by: [id number] Fluticasone/Vilanterol (Breo Ellipta 200/25 Mcg Inh) 1 puffs INH QAM [facility]; Protocol Stop: 01/08/20 09:59 Last Admin: 12/17/19 09:53 Dose: 1 puffs Documented by: [id number] Admin: 12/16/19 10:45 Dose: 1 puffs Documented by: [id number] Admin: 12/15/19 10:08 Dose: 1 puffs Documented by: [id number] Admin: 12/14/19 08:40 Dose: 1 puffs Documented by: [id number] Admin: 12/13/19 09:03 Dose: 1 puffs Documented by: [id number] Admin: 12/12/19 09:03 Dose: 1 puffs Documented by: [id number] Admin: 12/11/19 08:09 Dose: 1 puffs Documented by: [id number] Admin: 12/10/19 09:03 Dose: 1 puffs Documented by: [id number] Admin: 12/09/19 10:52 Dose: 1 puffs Documented by: [id number] Folic Acid (Folvite) 1 mg PO QAM [facility] Stop: 01/09/20 08:59 Last Admin: 12/17/19 09:58 Dose: 1 mg Documented by: [id number] Admin: 12/16/19 09:34 Dose: 1 mg Documented by: [id number] Admin: 12/15/19 10:15 Dose: 1 mg Documented by: [id number] Admin: 12/14/19 08:39 Dose: 1 mg Documented by: [id number] Admin: 12/13/19 09:04 Dose: 1 mg Documented by: [id number] Admin: 12/12/19 11:59 Dose: 1 mg Documented by: [id number] Admin: 12/11/19 08:09 Dose: 1 mg Documented by: [id number] Admin: 12/10/19 09:03 Dose: 1 mg Documented by: [id number] Guaifenesin (Mucinex) 600 mg PO Q12 [facility] Stop: 01/13/20 20:59 Last Admin: 12/17/19 09:58 Dose: 600 mg Documented by: [id number] Admin: 12/16/19 20:10 Dose: 600 mg Documented by: [id number] Admin: 12/16/19 09:33 Dose: 600 mg Documented by: [id number] Admin: 12/15/19 20:34 Dose: 600 mg Documented by: [id number] Admin: 12/15/19 10:08 Dose: 600 mg Documented by: [id number] Admin: 12/14/19 23:36 Dose: 600 mg Documented by: [id number] Lactated Ringer's (Lr) 1,000 mls @ 150 mls/hr IV .[id number] ARMANI Stop: 01/08/20 09:26 Last Admin: 12/17/19 09:48 Dose: 150 mls/hr Documented by: [id number] Infusion: 12/17/19 09:48 Dose: 150 mls/hr Documented by: [id number] Admin: 12/17/19 01:21 Dose: 150 mls/hr Documented by: [id number] Infusion: 12/17/19 01:21 Dose: 150 mls/hr Documented by: [id number] Admin: 12/16/19 21:51 Dose: 150 mls/hr Documented by: [id number] Infusion: 12/16/19 21:10 Dose: 150 mls/hr Documented by: [id number] Infusion: 12/16/19 20:32 Dose: 150 mls/hr Documented by: [id number] Infusion: 12/16/19 18:05 Dose: 0 mls/hr Documented by: [id number] Admin: 12/16/19 12:02 Dose: 150 mls/hr Documented by: [id number] Infusion: 12/16/19 12:02 Dose: 150 mls/hr Documented by: [id number] Admin: 12/16/19 05:32 Dose: 150 mls/hr Documented by: [id number] Infusion: 12/16/19 05:32 Dose: 150 mls/hr Documented by: [id number] Admin: 12/15/19 23:17 Dose: 150 mls/hr Documented by: [id number] Infusion: 12/15/19 23:17 Dose: 150 mls/hr Documented by: [id number] Admin: 12/15/19 17:25 Dose: 150 mls/hr Documented by: [id number] Infusion: 12/15/19 17:25 Dose: 150 mls/hr Documented by: [id number] Admin: 12/15/19 10:15 Dose: 150 mls/hr Documented by: [id number] Infusion: 12/15/19 10:15 Dose: 150 mls/hr Documented by: [id number] Admin: 12/15/19 03:44 Dose: 150 mls/hr Documented by: [id number] Infusion: 12/15/19 03:15 Dose: 150 mls/hr Documented by: [id number] Admin: 12/14/19 20:34 Dose: 150 mls/hr Documented by: [id number] Infusion: 12/14/19 20:20 Dose: 150 mls/hr Documented by: [id number] Admin: 12/14/19 13:39 Dose: 150 mls/hr Documented by: [id number] Infusion: 12/14/19 13:39 Dose: 150 mls/hr Documented by: [id number] Admin: 12/14/19 06:42 Dose: 150 mls/hr Documented by: [id number] Infusion: 12/14/19 06:42 Dose: 150 mls/hr Documented by: [id number] Admin: 12/14/19 00:28 Dose: 150 mls/hr Documented by: [id number] Infusion: 12/14/19 00:28 Dose: 150 mls/hr Documented by: [id number] Admin: 12/13/19 18:04 Dose: 150 mls/hr Documented by: [id number] Infusion: 12/13/19 18:04 Dose: 150 mls/hr Documented by: [id number] Admin: 12/13/19 11:23 Dose: 150 mls/hr Documented by: [id number] Infusion: 12/13/19 11:23 Dose: 150 mls/hr Documented by: [id number] Admin: 12/13/19 04:48 Dose: 150 mls/hr Documented by: [id number] Infusion: 12/13/19 04:48 Dose: 150 mls/hr Documented by: [id number] Admin: 12/12/19 22:37 Dose: 150 mls/hr Documented by: [id number] Infusion: 12/12/19 22:37 Dose: 150 mls/hr Documented by: [id number] Admin: 12/12/19 16:18 Dose: 150 mls/hr Documented by: [id number] Infusion: 12/12/19 15:00 Dose: 150 mls/hr Documented by: [id number] Admin: 12/12/19 08:19 Dose: 150 mls/hr Documented by: [id number] Infusion: 12/12/19 07:42 Dose: 150 mls/hr Documented by: [id number] Admin: 12/12/19 01:01 Dose: 150 mls/hr Documented by: [id number] Infusion: 12/12/19 01:01 Dose: 150 mls/hr Documented by: [id number] Admin: 12/11/19 18:36 Dose: 150 mls/hr Documented by: [id number] Infusion: 12/11/19 18:36 Dose: 150 mls/hr Documented by: [id number] Admin: 12/11/19 12:07 Dose: 150 mls/hr Documented by: [id number] Infusion: 12/11/19 12:07 Dose: 200 mls/hr Documented by: [id number] Admin: 12/11/19 08:35 Dose: 200 mls/hr Documented by: [id number] Infusion: 12/11/19 08:35 Dose: 200 mls/hr Documented by: [id number] Admin: 12/11/19 04:27 Dose: 200 mls/hr Documented by: [id number] Infusion: 12/11/19 04:17 Dose: 200 mls/hr Documented by: [id number] Admin: 12/10/19 23:17 Dose: 200 mls/hr Documented by: [id number] Infusion: 12/10/19 22:27 Dose: 200 mls/hr Documented by: [id number] Admin: 12/10/19 17:27 Dose: 200 mls/hr Documented by: [id number] Infusion: 12/10/19 16:34 Dose: 200 mls/hr Documented by: [id number] Admin: 12/10/19 11:34 Dose: 200 mls/hr Documented by: [id number] Infusion: 12/10/19 07:04 Dose: 200 mls/hr Documented by: [id number] Admin: 12/10/19 02:04 Dose: 200 mls/hr Documented by: [id number] Infusion: 12/10/19 02:04 Dose: 200 mls/hr Documented by: [id number] Admin: 12/09/19 21:04 Dose: 200 mls/hr Documented by: [id number] Infusion: 12/09/19 21:04 Dose: 200 mls/hr Documented by: [id number] Admin: 12/09/19 16:23 Dose: 200 mls/hr Documented by: [id number] Infusion: 12/09/19 16:14 Dose: 200 mls/hr Documented by: [id number] Admin: 12/09/19 11:14 Dose: 200 mls/hr Documented by: [id number] Lorazepam (Ativan) 1 mg in 2 mls @ 2 mls/min IV UD PRN; Protocol PRN Reason: EtOH Withdrawl AWSS Score 6,7 Stop: 01/08/20 09:26 Last Admin: 12/14/19 13:53 Dose: 0.5 mls/min Documented by: [id number] Admin: 12/14/19 10:37 Dose: 2 mls/min Documented by: [id number] Admin: 12/14/19 02:35 Dose: 2 mls/min Documented by: [id number] Admin: 12/13/19 09:16 Dose: 2 mls/min Documented by: [id number] Admin: 12/12/19 23:49 Dose: 2 mls/min Documented by: [id number] Admin: 12/12/19 16:16 Dose: 2 mls/min Documented by: [id number] Admin: 12/12/19 09:02 Dose: 2 mls/min Documented by: [id number] Admin: 12/12/19 02:16 Dose: 2 mls/min Documented by: [id number] Admin: 12/11/19 18:05 Dose: 2 mls/min Documented by: [id number] Admin: 12/11/19 13:59 Dose: 2 mls/min Documented by: [id number] Admin: 12/11/19 08:08 Dose: 2 mls/min Documented by: [id number] Lorazepam (Ativan) 2 mg in 4 mls @ 4 mls/min IV UD PRN; Protocol PRN Reason: EtOH Withdrawl AWSS Score 8,9 Stop: 01/08/20 09:26 Last Admin: 12/14/19 08:55 Dose: 4 mls/min Documented by: [id number] Admin: 12/11/19 00:00 Dose: 4 mls/min Documented by: [id number] Admin: 12/10/19 20:12 Dose: 4 mls/min Documented by: [id number] Vancomycin HCl 1,000 mg/ (Sodium Chloride) 270 mls @ 125 mls/hr IV Q8H ARMANI Stop: 12/28/19 17:59 Last Admin: 12/17/19 09:48 Dose: 125 mls/hr Documented by: [id number] Infusion: 12/17/19 03:38 Dose: 0 mls/hr Documented by: [id number] Admin: 12/17/19 01:24 Dose: 125 mls/hr Documented by: [id number] Infusion: 12/16/19 20:32 Dose: 0 mls/hr Documented by: [id number] Admin: 12/16/19 18:04 Dose: 125 mls/hr Documented by: [id number] Infusion: 12/16/19 12:20 Dose: 0 mls/hr Documented by: [id number] Admin: 12/16/19 10:10 Dose: 125 mls/hr Documented by: [id number] Infusion: 12/16/19 04:12 Dose: 0 mls/hr Documented by: [id number] Admin: 12/16/19 01:35 Dose: 125 mls/hr Documented by: [id number] Infusion: 12/15/19 20:29 Dose: 0 mls/hr Documented by: [id number] Admin: 12/15/19 18:04 Dose: 125 mls/hr Documented by: [id number] Infusion: 12/15/19 12:17 Dose: 0 mls/hr Documented by: [id number] Admin: 12/15/19 10:07 Dose: 125 mls/hr Documented by: [id number] Infusion: 12/15/19 03:44 Dose: 0 mls/hr Documented by: [id number] Admin: 12/15/19 01:25 Dose: 125 mls/hr Documented by: [id number] Infusion: 12/14/19 19:59 Dose: 0 mls/hr Documented by: [id number] Admin: 12/14/19 17:40 Dose: 125 mls/hr Documented by: [id number] Lorazepam (Ativan) 0.5 mg in 1 mls @ 0.5 mls/min IV UD PRN PRN Reason: Agitation Stop: 01/13/20 17:35 Last Admin: 12/16/19 00:23 Dose: 0.5 mls/min Documented by: [id number] Ioversol (Optiray 320 100ml) 93 ml IV ONCE PRN PRN Reason: Interaction Checking Stop: 12/18/19 14:08 Last Admin: 12/14/19 14:10 Dose: 93 ml Documented by: [id number] Loperamide HCl (Imodium) 2 mg PO NOW [facility] Stop: 01/09/20 10:59 Last Admin: 12/10/19 12:34 Dose: 2 mg Documented by: [id number] Multivitamins (Multivitamin Tab) 1 tab PO QAM [facility] Stop: 01/08/20 09:26 Last Admin: 12/17/19 09:58 Dose: 1 tab Documented by: [id number] Admin: 12/16/19 09:33 Dose: 1 tab Documented by: [id number] Admin: 12/15/19 10:14 Dose: 1 tab Documented by: [id number] Admin: 12/14/19 08:39 Dose: 1 tab Documented by: [id number] Admin: 12/13/19 09:04 Dose: 1 tab Documented by: [id number] Admin: 12/12/19 11:59 Dose: 1 tab Documented by: [id number] Admin: 12/11/19 08:09 Dose: 1 tab Documented by: [id number] Admin: 12/10/19 09:03 Dose: 1 tab Documented by: [id number] Admin: 12/09/19 10:52 Dose: 1 tab Documented by: [id number] Thiamine HCl (Vitamin B-1) 100 mg PO QAM [facility] Stop: 01/09/20 08:59 Last Admin: 12/17/19 09:58 Dose: 100 mg Documented by: [id number] Admin: 12/16/19 09:34 Dose: 100 mg Documented by: [id number] Admin: 12/15/19 10:14 Dose: 100 mg Documented by: [id number] Admin: 12/14/19 08:39 Dose: 100 mg Documented by: [id number] Admin: 12/13/19 09:04 Dose: 100 mg Documented by: [id number] Admin: 12/12/19 11:59 Dose: 100 mg Documented by: [id number] Admin: 12/11/19 08:09 Dose: 100 mg Documented by: [id number] Admin: 12/10/19 09:03 Dose: 100 mg Documented by: [id number] Coding Level of Care Code 86576 U Intl Hosp Care Lvl 3
[2019-12-17] MEDS ORDERED: DAPTOMYCIN CONSULT ACTIVE PRN (13:51)
--- NOTE | 2019-12-17 15:17 | Hospitalist Progress Note ---
Date of Service December 17, 2019 Assessment & Plan (1) Alcohol withdrawal: This is a 44-year-old female who has significant past medical history of alcohol abuse, asthma, MDD, panic disorder who presents to ED secondary to alcohol withdrawal symptoms x1 day. He was admitted with another episode of alcohol withdrawal symptoms Initially she received Librium and later on that was changed to gabapentin protocol She remains drowsy and getting to sleep immediately after a short conversation We will continue with current treatment Remains very drowsy without significant withdrawal symptoms Remains generally weak but no overt symptoms of withdrawal (2) Alcoholic hepatitis: Elevated LFTS AST 335, ALT 172, alk phos 134, total bilirubin 1.2 Likely in setting of alcohol abuse AST greater than ALT Acute hepatitis panel -negative Liver US - No cholelithiasis or sonographic evidence of acute cholecystitis. No biliary ductal dilation. Hepatomegaly with hepatic steatosis. Will monitor hepatitis panel Liver function have been almost normalized (3) Gram-positive cocci bacteremia: Has had fever more than 38 C yesterday Has been on intravenous vancomycin and cefepime since then Noted to have gram-positive cocci in clusters bacteremia-Staphylococcus aureus and disease not MRSA and no sensitivities will be done Await further sensitivity Source of infection not yet known MRSA screen has been positive. Doubt any staph pneumonia Echocardiogram did not show any overt vegetation Continue current antibiotic Chest x-ray did not show any pneumonia Right forearm has a boil with spreading cellulitis and this is the most likely source of bacteremia Has MRSA bacteremia We will continue with intravenous daptomycin for a total of14 days of IV antibiotic Neutropenia -Patient presented with low white blood cell count on admission, likely due to bone marrow suppression from alcohol use -Also on Librium taper which could decrease white blood cell count,switched to gabapentin taper -Continue diet and neutropenic precautions -Peripheral blood smear obtainednot specific, macrocytosis noted, no evidence of malignancy -Macrocytosis, MCV > 100, continue folate, start vitamin B12 supplement, B12 level ordered CBC has been improving (4) Acute pancreatitis: elevated lipase 2802, presents with n/v No abdominal pain likely 2/2 to significant ETOH abuse given elevated LFTS ordered RUQ u/s to rule out obstructive process Was on n.p.o. and received intravenous fluid GI consulted-appreciate input and recommendation Lipase increased after admission, GI recommended to obtain MRCP MRCP negative for pancreatitis, overall unremarkable study We will continue to follow No signs and/or symptoms of pancreatitis (5) Electrolyte abnormality: Secondary to alcoholism and pancreatitis Hypophosphatemia, Phos 2.1, replete and monitor Hypomagnesemia, mag 1.5, likely due to IV fluids and n.p.o. status, replete and monitor Mild hypokalemia, goal potassium over 4, replete and monitor Banana bag ordered in ED; then Maintenance LR @ 200/hr We will monitor electrolytes and replace accordingly- have been normal (6) Depression: Patient previously had been on Paxil and trazodone States has not been taking for the past 2 to 3-weeks Currently denies depressed mood, SI or HI; however per ED note day prior, as well as encounters in [facility] appears she has been struggling with anxiety and depression since development of pandemic Remains very depressed We will get psychiatric evaluation evaluation Appreciate psychiatric input and recommendation (7) Asthma: No acute exacerbation Continue Advair, PRN albuterol DVT prophylaxis SCDs CODE STATUS Full (8) Anxiety: Admission and Anticipated Discharge Date Admission Date: December 09, 2019 Subjective The patient was seen and examined in telemetry unit She is a 44-year-old female with history of alcohol abuse medical admission to the hospital with withdrawal, asthma, panic disorder admitted with another attack of alcohol withdrawal symptoms She also noted to have acute pancreatitis and alcoholic hepatitis She has been complaining of occasional increasing drowsiness and has been going to sleep right away after minimal conversation Has been feeling little better this morning and denies any acute distress 12/16/2019 The patient was seen and examined in telemetry unit She feels a little bit better today but remains drowsy and falls asleep quickly Denies any significant symptoms Will ask for PT and OT evaluation 12/17/2019 The patient was seen and examined in telemetry unit She has been feeling a lot better today She is alert and awake and asking too many questions She wants to go home but physical therapy recommended that she should be going to rehab Review of Systems Review of Systems: All systems reviewed and are unremarkable except as noted below Musculoskeletal: No acute pain Neurologic: + generalized weakness Patient still seems to be quite groggy, but answers questions appropriately and eating by herself Physical Exam Physical Exam: Lying in bed comfortably Constitutional: well developed, well nourished, + ill appearing and + obese; no acute distress Eyes: PERRL, conjunctivae normal, anicteric sclerae ENMT: external ear and nose normal, oropharynx normal Neck: trachea midline, no thyromegaly Respiratory: normal respiratory effort; no respiratory distress Auscultation: + diminished lung sounds (Minimal crackles at the bases) Cardiovascular: Rate/Rhythm: regular rate and regular rhythm Heart Sounds: no murmur Gastrointestinal (Abdomen): Inspection/Auscultation: abdomen normal to inspection and normal bowel sounds; abdomen not distended Percussion/Palpation: abdomen soft; abdomen nontender Musculoskeletal: No acute arthritis involving any joints Skin: A small boil involving the flexor surface of her right forearm with adjoining inflammation without significant drainage Neurologic: moves all extremities; no focal motor deficits Lymphatic: no cervical or axillary lymphadenopathy Results & Data Results & Data ([facility]) Vital Signs (Past 12 Hours) Vital Signs Temp Pulse Pulse Pulse Resp BP BP 12/17/19 11:55 36.8 C 81 18 109/74 12/17/19 10:16 72 12/17/19 07:11 36.8 C 80 18 111/72 12/17/19 04:00 36.7 C 83 18 121/80 Pulse Ox 12/17/19 11:55 95 12/17/19 10:16 12/17/19 07:11 92 12/17/19 04:00 96 Laboratory Results Short CBC 12/17/19 Range/Units 07:25 WBC 2.49 L (4.8-10.8) K/uL Hgb 11.4 L (12.0-16.0) g/dL Hct 34.2 L (37-47) % Plt Count 167 (130-400) K/uL BMP 12/17/19 07:25 Sodium 139 Potassium 3.7 Chloride 108 H Carbon Dioxide 25 BUN 6 L Creatinine 0.69 Glucose 99 Calcium 9.9 Liver Function 12/17/19 Range/Units 07:25 Total Bilirubin 0.5 (0.2-1) mg/dl AST 54 H (15-37) U/L ALT 61 (12-78) U/L Alkaline Phosphatase 97 (45-117) U/L Albumin 2.9 L (3.4-5.0) gm/dl Medications Administered Current Inpatient Medications Acetaminophen (Tylenol) 1,000 mg PO Q8 [facility] Stop: 01/13/20 17:29 Last Admin: 12/17/19 14:04 Dose: 1,000 mg Documented by: Al Hydrox/Mg Hydrox/Simethicone (Maalox) 15 ml PO Q4H PRN PRN Reason: Dyspepsia Stop: 01/08/20 09:26 Last Admin: 12/12/19 22:37 Dose: 15 ml Documented by: Albuterol (Ventolin Hfa) 2 puffs INH Q6H PRN PRN Reason: Shortness Of Breath Stop: 01/08/20 09:26 Last Admin: 12/16/19 06:09 Dose: 2 puffs Documented by: Albuterol (Duoneb) 3 ml NEB Q4R PRN PRN Reason: Shortness Of Breath Or Wheezing Stop: 01/13/20 14:59 Cyanocobalamin (Vitamin B-12) 1,000 mcg PO QAM@0800 [facility] Stop: 01/12/20 19:59 Last Admin: 12/17/19 09:58 Dose: 1,000 mcg Documented by: Fluticasone/Vilanterol (Breo Ellipta 200/25 Mcg Inh) 1 puffs INH QAM [facility]; Protocol Stop: 01/08/20 09:59 Last Admin: 12/17/19 09:53 Dose: 1 puffs Documented by: Folic Acid (Folvite) 1 mg PO QAM [facility] Stop: 01/09/20 08:59 Last Admin: 12/17/19 09:58 Dose: 1 mg Documented by: Guaifenesin (Mucinex) 600 mg PO Q12 [facility] Stop: 01/13/20 20:59 Last Admin: 12/17/19 09:58 Dose: 600 mg Documented by: Lactated Ringer's (Lr) 1,000 mls @ 150 mls/hr IV .Q6H40M [facility] Stop: 01/08/20 09:26 Last Admin: 12/17/19 09:48 Dose: 150 mls/hr Documented by: Lorazepam (Ativan) 1 mg in 2 mls @ 2 mls/min IV UD PRN; Protocol PRN Reason: EtOH Withdrawl AWSS Score 6,7 Stop: 01/08/20 09:26 Last Admin: 12/14/19 13:53 Dose: 0.5 mls/min Documented by: Lorazepam (Ativan) 2 mg in 4 mls @ 4 mls/min IV UD PRN; Protocol PRN Reason: EtOH Withdrawl AWSS Score 8,9 Stop: 01/08/20 09:26 Last Admin: 12/14/19 08:55 Dose: 4 mls/min Documented by: Lorazepam (Ativan) 3 mg in 6 mls @ 4 mls/min IV ONCE PRN; Protocol PRN Reason: EtOH Withdrawl AWSS Score >=10 Stop: 01/08/20 09:26 Lorazepam (Ativan) 0.5 mg in 1 mls @ 0.5 mls/min IV UD PRN PRN Reason: Agitation Stop: 01/13/20 17:35 Last Admin: 12/16/19 00:23 Dose: 0.5 mls/min Documented by: Daptomycin 650 mg/ Syringe 13 mls @ 6.5 mls/min IV DAILY@1800 [facility]; Protocol Stop: 12/31/19 17:59 Ioversol (Optiray 320 100ml) 93 ml IV ONCE PRN PRN Reason: Interaction Checking Stop: 12/18/19 14:08 Last Admin: 12/14/19 14:10 Dose: 93 ml Documented by: Loperamide HCl (Imodium) 2 mg PO NOW [facility] Stop: 01/09/20 10:59 Last Admin: 12/10/19 12:34 Dose: 2 mg Documented by: Magnesium Hydroxide (Milk Of Magnesia) 30 ml PO Q12H PRN PRN Reason: Constipation Stop: 01/08/20 09:26 Miscellaneous Information (Consult) 1 ea N/A UD PRN PRN Reason: Consult Stop: 01/16/20 13:50 Multivitamins (Multivitamin Tab) 1 tab PO [facility] Stop: 01/08/20 09:26 Last Admin: 12/17/19 09:58 Dose: 1 tab Documented by: Ondansetron HCl (Zofran) 4 mg IV Q6H PRN PRN Reason: Nausea Stop: 01/08/20 09:26 Polyethylene Glycol (Miralax Powder Packet) 17 gm PO DAILY PRN PRN Reason: Constipation Stop: 01/08/20 09:26 Thiamine HCl (Vitamin B-1) 100 mg PO QAM [facility] Stop: 01/09/20 08:59 Last Admin: 12/17/19 09:58 Dose: 100 mg Documented by: (1) Alcoholic hepatitis Ascites presence: without ascites Qualified Code(s): K70.10 - Alcoholic hepatitis without ascites (2) Depression Depression Type: unspecified Qualified Code(s): F32.9 - Major depressive disorder, single episode, unspecified (3) Asthma Asthma severity: unspecified severity Asthma persistence: unspecified Asthma complication type: unspecified Qualified Code(s): J45.909 - Unspecified asthma, uncomplicated
[2019-12-17] MEDS: DAPTOmycin 650 MG in SYRINGE 0 ML IV SCH (17:31)
[2019-12-17] MEDS: LORazepam 0.5 MG/1 ML VIAL IV PRN (18:03)
[2019-12-18] MEDS: LORazepam 0.5 MG/1 ML VIAL IV PRN ×2 (00:07→06:07)
[2019-12-18] MEDS: LACTATED RINGER'S 1,000 ML IV SCH ×2 (04:40→12:12)
[2019-12-18 05:42] LABS: Basophils # (auto) 0.03 K/uL (0-0.2); Basophils % (auto) 1.1 %; Eosinophils # (auto) 0.13 K/uL (0-0.5); Eosinophils % (auto) 4.7 %; Hemoglobin 11.3 g/dL (12.0-16.0); Immature Granulocytes # (auto) 0.01 K/uL (0.00-0.02); Immature Granulocytes % (auto) 0.4 %; Lymphocytes # (auto) 0.81 K/uL (1.2-3.4); Lymphocytes % (auto) 29.5 %; Mean Corpuscular Hemoglobin 34.2 pg (25-34); Mean Corpuscular Hgb Conc 32.3 g/dL (32-36); Mean Corpuscular Volume 106.1 fL (80-100); Mean Platelet Volume 10.7 fL (7.4-10.4); Monocytes # (auto) 0.53 K/uL (0.11-0.59); Monocytes % (auto) 19.3 %; Neutrophils # (auto) 1.24 K/uL (1.4-6.5); Platelet Count 233 K/uL (130-400); RDW Coefficient of Variation 13.2 % (11.5-14.5); RDW Standard Deviation 51.4 fL (36.4-46.3); White Blood Count 2.75 K/uL (4.8-10.8)
[2019-12-18] MEDS: ACETAMINOPHEN 500 MG TAB PO SCH ×3 (05:46→21:45)
[2019-12-18 06:13] LABS: BUN Creatinine Ratio 8.7 (10-20); Calcium 9.9 mg/dl (8.5-10.1); Creatinine Clr Calc Pharmacy 106.3 ml/min; Est GFR (African American) 122.1; Est GFR (Non-African American) 105.4; Potassium 3.6 mmol/L (3.5-5.1)
[2019-12-18] MEDS: guaiFENesin 600 MG TABCR PO SCH ×2 (08:46→21:45)
[2019-12-18] MEDS: MULTIVITAMIN TAB PO SCH (08:46)
[2019-12-18] MEDS: CYANOCOBALAMIN 500 MCG TABLET (VITAMIN B-12) PO SCH (08:46)
[2019-12-18] MEDS: FLUTICASONE/VILANTEROL 200/25MCG 14 PUFFS/INHALER INH SCH (08:46)
[2019-12-18] MEDS: THIAMINE HCL 100 MG TAB PO SCH (08:46)
[2019-12-18] MEDS: FOLIC ACID 1 MG TAB PO SCH (08:46)
[2019-12-18] MEDS ORDERED: VANCOMYCIN TROUGH ONE (09:30)
--- NOTE | 2019-12-18 13:55 | Hospitalist Progress Note ---
Date of Service December 18, 2019 Assessment & Plan (1) Alcohol withdrawal: This is a 44-year-old female who has significant past medical history of alcohol abuse, asthma, MDD, panic disorder who presents to ED secondary to alcohol withdrawal symptoms x1 day. He was admitted with another episode of alcohol withdrawal symptoms Initially she received Librium and later on that was changed to gabapentin protocol She remains drowsy and getting to sleep immediately after a short conversation We will continue with current treatment Remains very drowsy without significant withdrawal symptoms Remains generally weak but no overt symptoms of withdrawal No symptoms of withdrawal Remains very weak and lethargic Continue with physical therapy evaluation-recommended placement (2) Alcoholic hepatitis: Elevated LFTS AST 335, ALT 172, alk phos 134, total bilirubin 1.2 Likely in setting of alcohol abuse AST greater than ALT Acute hepatitis panel -negative Liver US - No cholelithiasis or sonographic evidence of acute cholecystitis. No biliary ductal dilation. Hepatomegaly with hepatic steatosis. Will monitor hepatitis panel Liver function have been almost normalized (3) Gram-positive cocci bacteremia: Has had fever more than 38 C yesterday Has been on intravenous vancomycin and cefepime since then Noted to have gram-positive cocci in clusters bacteremia-Staphylococcus aureus and disease not MRSA and no sensitivities will be done Await further sensitivity Source of infection not yet known MRSA screen has been positive. Doubt any staph pneumonia Echocardiogram did not show any overt vegetation Continue current antibiotic Chest x-ray did not show any pneumonia Right forearm has a boil with spreading cellulitis and this is the most likely source of bacteremia Has MRSA bacteremia We will continue with intravenous daptomycin for a total of14 days of IV antibiotic PICC line placement and will have daptomycin for rest of the days to finish the course of antibiotic Neutropenia -Patient presented with low white blood cell count on admission, likely due to bone marrow suppression from alcohol use -Also on Librium taper which could decrease white blood cell count,switched to gabapentin taper -Continue diet and neutropenic precautions -Peripheral blood smear obtainednot specific, macrocytosis noted, no evidence of malignancy -Macrocytosis, MCV > 100, continue folate, start vitamin B12 supplement, B12 level ordered CBC has been improving (4) Acute pancreatitis: elevated lipase 2802, presents with n/v No abdominal pain likely 2/2 to significant ETOH abuse given elevated LFTS ordered RUQ u/s to rule out obstructive process Was on n.p.o. and received intravenous fluid GI consulted-appreciate input and recommendation Lipase increased after admission, GI recommended to obtain MRCP MRCP negative for pancreatitis, overall unremarkable study We will continue to follow No signs and/or symptoms of pancreatitis (5) Electrolyte abnormality: Secondary to alcoholism and pancreatitis Hypophosphatemia, Phos 2.1, replete and monitor Hypomagnesemia, mag 1.5, likely due to IV fluids and n.p.o. status, replete and monitor Mild hypokalemia, goal potassium over 4, replete and monitor Banana bag ordered in ED; then Maintenance LR @ 200/hr We will monitor electrolytes and replace accordingly- have been normal (6) Depression: Patient previously had been on Paxil and trazodone States has not been taking for the past 2 to 3-weeks Currently denies depressed mood, SI or HI; however per ED note day prior, as well as encounters in [facility] appears she has been struggling with anxiety and depression since development of pandemic Remains very depressed We will get psychiatric evaluation evaluation Appreciate psychiatric input and recommendation No recommendation to start any antidepressant Recommended intensive outpatient program for rehab (7) Asthma: No acute exacerbation Continue Advair, PRN albuterol DVT prophylaxis SCDs CODE STATUS Full (8) Anxiety: Admission and Anticipated Discharge Date Admission Date: December 09, 2019 Subjective The patient was seen and examined in telemetry unit She is a 44-year-old female with history of alcohol abuse medical admission to the hospital with withdrawal, asthma, panic disorder admitted with another attack of alcohol withdrawal symptoms She also noted to have acute pancreatitis and alcoholic hepatitis She has been complaining of occasional increasing drowsiness and has been going to sleep right away after minimal conversation Has been feeling little better this morning and denies any acute distress 12/16/2019 The patient was seen and examined in telemetry unit She feels a little bit better today but remains drowsy and falls asleep quickly Denies any significant symptoms Will ask for PT and OT evaluation 12/17/2019 The patient was seen and examined in telemetry unit She has been feeling a lot better today She is alert and awake and asking too many questions She wants to go home but physical therapy recommended that she should be going to rehab 12/18/2019 Patient was seen and examined in telemetry unit She refused to have her PICC line She wants to go home but physical therapy recommended for rehab She remains a little drowsy as of today Review of Systems Review of Systems: All systems reviewed and are unremarkable except as noted below Musculoskeletal: No acute pain Neurologic: + generalized weakness Patient still seems to be quite groggy, but answers questions appropriately and eating by herself Physical Exam Physical Exam: Lying in bed comfortably Constitutional: well developed, well nourished, + ill appearing and + obese; no acute distress Eyes: PERRL, conjunctivae normal, anicteric sclerae ENMT: external ear and nose normal, oropharynx normal Neck: trachea midline, no thyromegaly Respiratory: normal respiratory effort; no respiratory distress Auscultation: + diminished lung sounds (Minimal crackles at the bases) Cardiovascular: Rate/Rhythm: regular rate and regular rhythm Heart Sounds: no murmur Gastrointestinal (Abdomen): Inspection/Auscultation: abdomen normal to inspection and normal bowel sounds; abdomen not distended Percussion/Palpation: abdomen soft; abdomen nontender Musculoskeletal: No acute arthritis involving any joints Neurologic: moves all extremities; no focal motor deficits Remains generally weak and lethargy Lymphatic: no cervical or axillary lymphadenopathy Results & Data Results & Data ([facility]) Vital Signs (Past 12 Hours) Vital Signs Temp Pulse Pulse Pulse Resp BP BP 12/18/19 11:43 36.7 C 72 20 114/77 12/18/19 08:00 80 12/18/19 07:54 36.6 C 88 20 127/85 12/18/19 04:19 36.8 C 75 20 129/85 Pulse Ox 12/18/19 11:43 95 12/18/19 08:00 12/18/19 07:54 95 12/18/19 04:19 96 Laboratory Results Short CBC 12/18/19 Range/Units 04:43 WBC 2.75 L (4.8-10.8) K/uL Hgb 11.3 L (12.0-16.0) g/dL Hct 35.0 L (37-47) % Plt Count 233 (130-400) K/uL BMP 12/18/19 04:43 Sodium 142 Potassium 3.6 Chloride 112 H Carbon Dioxide 23 BUN 6 L Creatinine 0.70 Glucose 86 Calcium 9.9 Cardiac Enzymes 12/18/19 Range/Units 04:43 Total Creatine Kinase 42 (26-192) U/L Medications Administered Current Inpatient Medications Acetaminophen (Tylenol) 1,000 mg PO Q8 [facility] Stop: 07/23/20 17:29 Last Admin: 12/18/19 05:46 Dose: 1,000 mg Documented by: Al Hydrox/Mg Hydrox/Simethicone (Maalox) 15 ml PO Q4H PRN PRN Reason: Dyspepsia Stop: 01/08/20 09:26 Last Admin: 12/12/19 22:37 Dose: 15 ml Documented by: Albuterol (Ventolin Hfa) 2 puffs INH Q6H PRN PRN Reason: Shortness Of Breath Stop: 01/08/20 09:26 Last Admin: 12/16/19 06:09 Dose: 2 puffs Documented by: Albuterol (Duoneb) 3 ml NEB Q4R PRN PRN Reason: Shortness Of Breath Or Wheezing Stop: 01/13/20 14:59 Cyanocobalamin (Vitamin B-12) 1,000 mcg PO QAM@0800 [facility] Stop: 01/12/20 19:59 Last Admin: 12/18/19 08:46 Dose: 1,000 mcg Documented by: Fluticasone/Vilanterol (Breo Ellipta 200/25 Mcg Inh) 1 puffs INH QAM [facility]; Protocol Stop: 01/08/20 09:59 Last Admin: 12/18/19 08:46 Dose: 1 puffs Documented by: Folic Acid (Folvite) 1 mg PO QAM [facility] Stop: 01/09/20 08:59 Last Admin: 12/18/19 08:46 Dose: 1 mg Documented by: Guaifenesin (Mucinex) 600 mg PO Q12 [facility] Stop: 01/13/20 20:59 Last Admin: 12/18/19 08:46 Dose: 600 mg Documented by: Lactated Ringer's (Lr) 1,000 mls @ 150 mls/hr IV .Q6H40M [facility] Stop: 01/08/20 09:26 Last Admin: 12/18/19 12:12 Dose: 150 mls/hr Documented by: Lorazepam (Ativan) 1 mg in 2 mls @ 2 mls/min IV UD PRN; Protocol PRN Reason: EtOH Withdrawl AWSS Score 6,7 Stop: 01/08/20 09:26 Last Admin: 12/14/19 13:53 Dose: 0.5 mls/min Documented by: Lorazepam (Ativan) 2 mg in 4 mls @ 4 mls/min IV UD PRN; Protocol PRN Reason: EtOH Withdrawl AWSS Score 8,9 Stop: 01/08/20 09:26 Last Admin: 12/14/19 08:55 Dose: 4 mls/min Documented by: Lorazepam (Ativan) 3 mg in 6 mls @ 4 mls/min IV ONCE PRN; Protocol PRN Reason: EtOH Withdrawl AWSS Score >=10 Stop: 01/08/20 09:26 Lorazepam (Ativan) 0.5 mg in 1 mls @ 0.5 mls/min IV UD PRN PRN Reason: Agitation Stop: 01/13/20 17:35 Last Admin: 12/18/19 06:07 Dose: 0.5 mls/min Documented by: Daptomycin 650 mg/ Syringe 13 mls @ 6.5 mls/min IV DAILY@1800 [facility]; Protocol Stop: 12/31/19 17:59 Last Admin: 12/17/19 17:31 Dose: 6.5 mls/min Documented by: Ioversol (Optiray 320 100ml) 93 ml IV ONCE PRN PRN Reason: Interaction Checking Stop: 12/18/19 14:08 Last Admin: 12/14/19 14:10 Dose: 93 ml Documented by: Loperamide HCl (Imodium) 2 mg PO NOW [facility] Stop: 01/09/20 10:59 Last Admin: 12/10/19 12:34 Dose: 2 mg Documented by: Magnesium Hydroxide (Milk Of Magnesia) 30 ml PO Q12H PRN PRN Reason: Constipation Stop: 01/08/20 09:26 Miscellaneous Information (Consult) 1 ea N/A UD PRN PRN Reason: Consult Stop: 01/16/20 13:50 Multivitamins ([facility] Tab) [facility] Stop: 01/08/20 09:26 Last Admin: 12/18/19 08:46 Dose: 1 tab Documented by: Ondansetron HCl (Zofran) 4 mg IV Q6H PRN PRN Reason: Nausea Stop: 01/08/20 09:26 Polyethylene Glycol (Miralax Powder Packet) 17 gm PO DAILY PRN PRN Reason: Constipation Stop: 01/08/20 09:26 Thiamine HCl (Vitamin B-1) 100 mg PO QAM [facility] Stop: 01/09/20 08:59 Last Admin: 12/18/19 08:46 Dose: 100 mg Documented by: (1) Alcoholic hepatitis Ascites presence: without ascites Qualified Code(s): K70.10 - Alcoholic hepatitis without ascites (2) Depression Depression Type: unspecified Qualified Code(s): F32.9 - Major depressive disorder, single episode, unspecified (3) Asthma Asthma severity: unspecified severity Asthma persistence: unspecified Asthma complication type: unspecified Qualified Code(s): J45.909 - Unspecified asthma, uncomplicated
[2019-12-18] MEDS: DAPTOmycin 650 MG in SYRINGE 0 ML IV SCH (18:10)
[2019-12-18] MEDS: ALBUTEROL HFA 8 GM INHALER INH PRN (22:27)
[2019-12-19] MEDS: ACETAMINOPHEN 500 MG TAB PO SCH ×3 (06:07→20:57)
[2019-12-19] MEDS: FOLIC ACID 1 MG TAB PO SCH (09:04)
[2019-12-19] MEDS: CYANOCOBALAMIN 500 MCG TABLET (VITAMIN B-12) PO SCH (09:04)
[2019-12-19] MEDS: MULTIVITAMIN TAB PO SCH (09:04)
[2019-12-19] MEDS: guaiFENesin 600 MG TABCR PO SCH ×2 (09:04→20:57)
[2019-12-19] MEDS: THIAMINE HCL 100 MG TAB PO SCH (09:04)
[2019-12-19] MEDS: FLUTICASONE/VILANTEROL 200/25MCG 14 PUFFS/INHALER INH SCH (09:04)
[2019-12-19] MEDS ORDERED: hydrOXYzine HCl 10 MG TAB PO PRN (10:46)
--- NOTE | 2019-12-19 11:23 | Surgery Consultation ---
Date of Consultation December 19, 2019 Assessment & Plan (1) Gram-positive cocci bacteremia: This is a 44y F with a PMH of alcohol abuse who presnted to the [facility] ED on 12/08 with symptoms of alcohol withdrawal found to have MRSA bacteremia with likely source found from R forearm. Under R forearm patient has cellulitis with induration and scab formation. We will order for an ultrasound to evaluate for abscess formation. Overall, patient reports that it's improving. We will check on patient again tomorrow morning to discuss timing if indicated for I&D of the area. Continue on IV abx. Patient seen and examined with Dr. Alfonso. Supervising Physician Co-Signing Physician Notes Patient seen and examined by me, care coordinated with Rita Tuttle PA-C. Please refer to her note above for further details. This is a 44-year-old female who has significant past medical history of alcohol abuse, asthma, MDD, panic disorder who presents to ED secondary to alcohol withdrawal symptoms x1 day. She elicits to drinking 1.5 pints of alcohol daily for the past year. Yesterday afternoon she began to feel tremulous, sweats, cloudy vision, and nauseated. She does have prior history of alcohol withdrawal and was last hospitalized July 2019. She denies any prior history of DTs or seizure-like activity. Patient is currently lying in bed, able to answer my questions, very tremulous. Lungs are clear to auscultation bilaterally. Cardiovascular: Tachycardic. Abdomen is soft, nontender to palpation, normal bowel sounds, mildly distended obese. Patient moves extremities spontaneously and without difficulty, however very tremulous. She is alert and oriented x3 and answers questions appropriately. Skin is warm and dry, no rashes or lesions noted. LFTs and lipase significantly elevated. Patient started on banana bag and LR 200/h. GI consulted. Librium taper, Ativan as needed. Leukopenia and thrombocytopenia with a white count of 2.45k and platelet count of 100,000 likely secondary to alcohol abuse. Close hemodynamic monitoring. MD Gabriel History of Present Illness Attending Physician: Brett Vasquez MD History of Present Illness This is a 44y F with a PMH of alcohol abuse who presnted to the [facility] ED on 12/08 with symptoms of alcohol withdrawal. During her admission she started spiking fevers on 12/13 and was found to have MRSA bacteremia, currently on IV daptomycin. Of recent she was noted to have R forearm cellulitis with concern for boil formation. Patient states it has been there since last and thought she had an IV around that area. Patient reports that the area of redness is improving, but remains tender to touch with formation of a scab. WBC today 2.7 and patient currently afebrile. Surgery was consulted for further evaluation. Allergies Allergy/AdvReac Type Severity Reaction Status Date / Time theophylline AdvReac Unknown VERTIGO Verified 12/09/19 04:34 Home Medications Home Medications Medication Instructions Recorded Confirmed Type fluticasone propion-salmeterol 1 inh INHALATION QAM 02/27/19 12/09/19 History [Advair Diskus] albuterol sulfate [Ventolin HFA] 2 puff INHALATION Q6H PRN 07/23/19 12/09/19 History hydroxyzine HCl 10 mg PO Q8 PRN 07/23/19 12/09/19 History folic acid 1 mg PO QAM #0 tab 07/27/19 12/09/19 Rx multivitamin [Daily-Harris] 1 tab PO QAM #0 tab 07/27/19 12/09/19 Rx thiamine HCl (vitamin B1) [Vitamin 100 mg PO QAM #0 tab 07/27/19 12/09/19 Rx B-1] Patient History Medical History Alcohol abuse (Acute) Anxiety (Chronic) Asthma (Chronic) Surgical History History of dental surgery History of esophagogastroduodenoscopy (EGD) Family History Father Prediabetes Grandfather (Paternal) Diabetes Mother Hypertension MVP (mitral valve prolapse) Social History Preferred Language: Somali Communication Ability: Effective Security Risk Analyst Required: No Beliefs That Will Affect Care: None marital status details: Single parent Current Living Situation: Family Current Living Situation Comment: with daughter- 16 years old current occupational status: unemployed Other Information That Helps Us Care for You: No Feels Safe at Home: Yes Safety Concerns: Feels Safe At This Time Smoking Status: Former smoker Tobacco Type: cigarettes ; Age Quit Using Tobacco: 39 ; packs per day: 1 ; Number of Years Since Quit: 4 ; Second Hand Exposure: No ; Hx Alcohol Use: Yes Alcohol type: wine and hard liquor Alcohol type Comment: 1.5 pints of vodka. Alcohol Intake Frequency: Daily Hx Substance Use: No Childhood Exposure to Second-Hand Smoke: No Review of Systems Constitutional: + fever (on 12/13) Integumentary: tenderness and redness of R forearm with scab Physical Exam Physical Exam: awake, but drowsy Respiratory: normal respiratory effort Skin: erythema under R forearm with surrounding induration and central scab formation Results & Data Vital Signs (Past 12 Hours) Vital Signs Temp Pulse Pulse Resp BP Pulse Ox 12/19/19 08:00 36.8 C 72 68 20 124/85 97 12/19/19 03:47 37.2 C 62 17 119/77 96 12/18/19 23:31 36.9 C 88 20 136/81 97 PG Care Time/CCT Total # of Minutes Spent Total Time Spent with Patient: Total time spent is greater than 50% in coordination of care (as documented) at patient's floor/unit and/or counseling patient: Coding Level of Care Code 71397 Inpt Consult Level 2 Diagnoses Gram-positive cocci bacteremia R78.81
[2019-12-19] MEDS: PANTOprazole 40 MG TAB PO SCH (11:51)
--- NOTE | 2019-12-19 12:22 | Hospitalist Progress Note ---
Date of Service December 19, 2019 Assessment & Plan (1) Alcohol withdrawal: This is a 44-year-old female who has significant past medical history of alcohol abuse, asthma, MDD, panic disorder who presents to ED secondary to alcohol withdrawal symptoms x1 day. He was admitted with another episode of alcohol withdrawal symptoms Initially she received Librium and later on that was changed to gabapentin protocol She remains drowsy and getting to sleep immediately after a short conversation We will continue with current treatment Remains very drowsy without significant withdrawal symptoms Remains generally weak but no overt symptoms of withdrawal No symptoms of withdrawal Remains very weak and lethargic Continue with physical therapy evaluation-recommended placement No signs of alcohol withdrawal and or symptoms (2) Alcoholic hepatitis: Elevated LFTS AST 335, ALT 172, alk phos 134, total bilirubin 1.2 Likely in setting of alcohol abuse AST greater than ALT Acute hepatitis panel -negative Liver US - No cholelithiasis or sonographic evidence of acute cholecystitis. No biliary ductal dilation. Hepatomegaly with hepatic steatosis. Will monitor hepatitis panel Liver function have been almost normalized (3) Gram-positive cocci bacteremia: Has had fever more than 38 C yesterday Has been on intravenous vancomycin and cefepime since then Noted to have gram-positive cocci in clusters bacteremia-Staphylococcus aureus and disease not MRSA and no sensitivities will be done Await further sensitivity Source of infection not yet known MRSA screen has been positive. Doubt any staph pneumonia Echocardiogram did not show any overt vegetation Continue current antibiotic Chest x-ray did not show any pneumonia Right forearm cellulitis with possible abscess Right forearm has a boil with spreading cellulitis and this is the most likely source of bacteremia Has MRSA bacteremia We will continue with intravenous daptomycin for a total of14 days of IV antibiotic PICC line placement and will have daptomycin for rest of the days to finish the course of antibiotic Surgery consulted for possible I&D Neutropenia -Patient presented with low white blood cell count on admission, likely due to bone marrow suppression from alcohol use -Also on Librium taper which could decrease white blood cell count,switched to gabapentin taper -Continue diet and neutropenic precautions -Peripheral blood smear obtainednot specific, macrocytosis noted, no evidence of malignancy -Macrocytosis, MCV > 100, continue folate, start vitamin B12 supplement, B12 l evel ordered CBC has been improving (4) Acute pancreatitis: elevated lipase 2802, presents with n/v No abdominal pain likely 2/2 to significant ETOH abuse given elevated LFTS ordered RUQ u/s to rule out obstructive process Was on n.p.o. and received intravenous fluid GI consulted-appreciate input and recommendation Lipase increased after admission, GI recommended to obtain MRCP MRCP negative for pancreatitis, overall unremarkable study We will continue to follow No signs and/or symptoms of pancreatitis (5) Electrolyte abnormality: Secondary to alcoholism and pancreatitis Hypophosphatemia, Phos 2.1, replete and monitor Hypomagnesemia, mag 1.5, likely due to IV fluids and n.p.o. status, replete and monitor Mild hypokalemia, goal potassium over 4, replete and monitor Banana bag ordered in ED; then Maintenance LR @ 200/hr We will monitor electrolytes and replace accordingly- have been normal (6) Depression: Patient previously had been on Paxil and trazodone States has not been taking for the past 2 to 3-weeks Currently denies depressed mood, SI or HI; however per ED note day prior, as well as encounters in the medical center appears she has been struggling with anxiety and depression since development of pandemic Remains very depressed We will get psychiatric evaluation evaluation Appreciate psychiatric input and recommendation No recommendation to start any antidepressant Recommended intensive outpatient program for rehab (7) Asthma: No acute exacerbation Continue Advair, PRN albuterol DVT prophylaxis SCDs CODE STATUS Full (8) Anxiety: Admission and Anticipated Discharge Date Admission Date: December 09, 2019 Subjective The patient was seen and examined in telemetry unit She is a 44-year-old female with history of alcohol abuse medical admission to the hospital with withdrawal, asthma, panic disorder admitted with another attack of alcohol withdrawal symptoms She also noted to have acute pancreatitis and alcoholic hepatitis She has been complaining of occasional increasing drowsiness and has been going to sleep right away after minimal conversation Has been feeling little better this morning and denies any acute distress 12/16/2019 The patient was seen and examined in telemetry unit She feels a little bit better today but remains drowsy and falls asleep quickly Denies any significant symptoms Will ask for PT and OT evaluation 12/17/2019 The patient was seen and examined in telemetry unit She has been feeling a lot better today She is alert and awake and asking too many questions She wants to go home but physical therapy recommended that she should be going to rehab 12/18/2019 Patient was seen and examined in telemetry unit She refused to have her PICC line She wants to go home but physical therapy recommended for rehab She remains a little drowsy as of today 12/19/2019 The patient was seen and examined in telemetry unit She has been upset about the nursing care Complains to have more pain and redness involving the right forearm but otherwise denies any other symptoms Review of Systems 2 Review of Systems: All systems reviewed and are unremarkable except as noted below Musculoskeletal: Right forearm swelled with redness and tenderness without any fluctuation Neurologic: + generalized weakness Patient still seems to be quite groggy, but answers questions appropriately and eating by herself Physical Exam Physical Exam: Lying in bed comfortably but very anxious Constitutional: well developed, well nourished, + ill appearing and + obese; no acute distress Eyes: PERRL, conjunctivae normal, anicteric sclerae ENMT: external ear and nose normal, oropharynx normal Neck: trachea midline, no thyromegaly Respiratory: normal respiratory effort; no respiratory distress Auscultation: + diminished lung sounds (Minimal crackles at the bases) Cardiovascular: Rate/Rhythm: regular rate and regular rhythm Heart Sounds: no murmur Gastrointestinal (Abdomen): Inspection/Auscultation: abdomen normal to inspection and normal bowel sounds; abdomen not distended Percuss ion/Palpation: abdomen soft; abdomen nontender Musculoskeletal: Right forearm is swollen with increasing warmth and tenderness with firmness but no fluctuation. No signs and/or symptoms of nerve compression Neurologic: moves all extremities; no focal motor deficits Lymphatic: no cervical or axillary lymphadenopathy Results & Data Results & Data ([facility]) Vital Signs (Past 12 Hours) Vital Signs Temp Pulse Pulse Resp BP Pulse Ox 12/19/19 08:00 36.8 C 72 68 20 124/85 97 12/19/19 03:47 37.2 C 62 17 119/77 96 Medications Administered Current Inpatient Medications Acetaminophen (Tylenol) 1,000 mg PO Q8 [facility] Stop: 01/13/20 17:29 Last Admin: 12/19/19 11:57 Dose: Not Given Documented by: Al Hydrox/Mg Hydrox/Simethicone (Maalox) 15 ml PO Q4H PRN PRN Reason: Dyspepsia Stop: 01/08/20 09:26 Last Admin: 12/12/19 22:37 Dose: 15 ml Documented by: Albuterol (Ventolin Hfa) 2 puffs INH Q6H PRN PRN Reason: Shortness Of Breath Stop: 01/08/20 09:26 Last Admin: 12/18/19 22:27 Dose: 2 puffs Documented by: Albuterol (Duoneb) 3 ml NEB Q4R PRN PRN Reason: Shortness Of Breath Or Wheezing Stop: 01/13/20 14:59 Cyanocobalamin (Vitamin B-12) 1,000 mcg PO QAM@0800 [facility] Stop: 01/12/20 19:59 Last Admin: 12/19/19 09:04 Dose: 1,000 mcg Documented by: Fluticasone/Vilanterol (Breo Ellipta 200/25 Mcg Inh) 1 puffs INH QAM [facility]; Protocol Stop: 01/08/20 09:59 Last Admin: 12/19/19 09:04 Dose: 1 puffs Documented by: Folic Acid (Folvite) 1 mg PO QAM [facility] Stop: 01/18/20 08:59 Last Admin: 12/19/19 09:04 Dose: 1 mg Documented by: Guaifenesin (Mucinex) 600 mg PO Q12 [facility] Stop: 01/13/20 20:59 Last Admin: 12/19/19 09:04 Dose: 600 mg Documented by: Hydroxyzine HCl (Vistaril) 10 mg PO Q8 PRN PRN Reason: Anxiety Stop: 01/18/20 10:45 Lorazepam (Ativan) 1 mg in 2 mls @ 2 mls/min IV UD PRN; Protocol PRN Reason: EtOH Withdrawl AWSS Score 6,7 Stop: 01/08/20 09:26 Last Admin: 12/14/19 13:53 Dose: 0.5 mls/min Documented by: Lorazepam (Ativan) 2 mg in 4 mls @ 4 mls/min IV UD PRN; Protocol PRN Reason: EtOH Withdrawl AWSS Score 8,9 Stop: 01/08/20 09:26 Last Admin: 12/14/19 08:55 Dose: 4 mls/min Documented by: Lorazepam (Ativan) 3 mg in 6 mls @ 4 mls/min IV ONCE PRN; Protocol PRN Reason: EtOH Withdrawl AWSS Score >=10 Stop: 01/08/20 09:26 Lorazepam (Ativan) 0.5 mg in 1 mls @ 0.5 mls/min IV UD PRN PRN Reason: Agitation Stop: 01/13/20 17:35 Last Admin: 12/18/19 06:07 Dose: 0.5 mls/min Documented by: Daptomycin 650 mg/ Syringe 13 mls @ 6.5 mls/min IV DAILY@1800 [facility]; Protocol Stop: 12/31/19 17:59 Last Admin: 12/18/19 18:10 Dose: 6.5 mls/min Documented by: Loperamide HCl (Imodium) 2 mg PO NOW [facility] Stop: 01/09/20 10:59 Last Admin: 12/10/19 12:34 Dose: 2 mg Documented by: Magnesium Hydroxide (Milk Of Magnesia) 30 ml PO Q12H PRN PRN Reason: Constipation Stop: 01/08/20 09:26 Miscellaneous Information (Consult) 1 ea N/A UD PRN PRN Reason: Consult Stop: 01/16/20 13:50 Multivitamins (Multivitamin Tab) 1 tab PO [facility] Stop: 01/08/20 09:26 Last Admin: 12/19/19 09:04 Dose: 1 tab Documented by: Ondansetron HCl (Zofran) 4 mg IV Q6H PRN PRN Reason: Nausea Stop: 01/08/20 09:26 Pantoprazole Sodium (Protonix) 40 mg PO [facility] Stop: 01/18/20 10:59 Last Admin: 12/19/19 11:51 Dose: 40 mg Documented by: Polyethylene Glycol (Miralax Powder Packet) 17 gm PO DAILY PRN PRN Reason: Constipation Stop: 01/08/20 09:26 Thiamine HCl (Vitamin B-1) 100 mg PO [facility] Stop: 01/18/20 08:59 Last Admin: 12/19/19 09:04 Dose: 100 mg Documented by: (1) Alcoholic hepatitis Ascites presence: without ascites Qualified Code(s): K70.10 - Alcoholic hepatitis without ascites (2) Depression Depression Type: unspecified Qualified Code(s): F32.9 - Major depressive disorder, single episode, unspecified (3) Asthma Asthma severity: unspecified severity Asthma persistence: unspecified Asthma complication type: unspecified Qualified Code(s): J45.909 - Unspecified asthma, uncomplicated
--- NOTE | 2019-12-19 14:23 | Ultrasound Report ---
US extremity nonvascular CLINICAL HISTORY: US Right forearm- evaluate for abscess formation COMPARISON STUDY: None. FINDINGS: Real-time sonographic imaging of the right forearm was performed with uniforms sales representative images submitted. Of note, the technologist images incorrectly state left forearm images. A 1.3 x 1.2 x 0.5 cm subcutaneous complex fluid collection. The surrounding fat is echogenic and thickened. IMPRESSION: A 1.3 x 1.2 x 0.5 cm subcutaneous complex fluid collection within the right forearm. Thi s favors an abscess. ACT 112: Negative or not required by law. Electronically signed by: Sam Bobby M.D. 12/19/2019 2:38 PM
[2019-12-19] MEDS: DAPTOmycin 650 MG in SYRINGE 0 ML IV SCH (18:12)
[2019-12-19] MEDS: ALBUTEROL HFA 8 GM INHALER INH PRN (20:37)
[2019-12-19] MEDS: LORazepam 2 MG/4 ML VIAL IV PRN (20:56)
[2019-12-20 05:19] LABS: Basophils # (auto) 0.03 K/uL (0-0.2); Basophils % (auto) 0.9 %; Eosinophils # (auto) 0.06 K/uL (0-0.5); Eosinophils % (auto) 1.8 %; Hematocrit (blood only) 36.3 % (37-47); Hemoglobin 11.9 g/dL (12.0-16.0); Immature Granulocytes # (auto) 0.04 K/uL (0.00-0.02); Immature Granulocytes % (auto) 1.2 %; Lymphocytes # (auto) 0.97 K/uL (1.2-3.4); Lymphocytes % (auto) 29.4 %; Mean Corpuscular Hemoglobin 34.2 pg (25-34); Mean Corpuscular Hgb Conc 32.8 g/dL (32-36); Mean Corpuscular Volume 104.3 fL (80-100); Mean Platelet Volume 10.4 fL (7.4-10.4); Monocytes # (auto) 0.38 K/uL (0.11-0.59); Monocytes % (auto) 11.5 %; Neutrophils # (auto) 1.82 K/uL (1.4-6.5); Neutrophils % (auto) 55.2 %; Platelet Count 283 K/uL (130-400); RDW Coefficient of Variation 13.1 % (11.5-14.5); RDW Standard Deviation 49.8 fL (36.4-46.3); Red Blood Count 3.48 M/uL (4.2-5.4)
[2019-12-20] MEDS: ACETAMINOPHEN 500 MG TAB PO SCH ×3 (05:36→21:19)
[2019-12-20 05:43] LABS: BUN Creatinine Ratio 6.9 (10-20); Calcium 9.7 mg/dl (8.5-10.1); Creatinine Clr Calc Pharmacy 91.6 ml/min; Est GFR (African American) 102.4; Est GFR (Non-African American) 88.3; Potassium 3.5 mmol/L (3.5-5.1)
--- NOTE | 2019-12-20 08:24 | Surgery Progress Note ---
Date of Service December 20, 2019 Assessment & Plan (1) Abscess: Discussed with the patient the ultrasound findings and I recommended the patient be taken to the operating room and some IV sedation open up the central core where most likely is the abscess the incision may be need to extend along the vein approximately The patient did not like this test could I do it under local and I felt that local would not be sufficient when she wanted to hold off surgery at this time therefore will put a heating pad in the area hopefully may draw on its own Present on Admission?: Yes Subjective No changes in his comfort that she has in the right upper extremity Physical Exam Physical Exam: She is much more alert coherent this morning she did not fall asleep like she had yesterday while was talking to her Cellulitis in the right upper extremity is pretty much unchanged from yesterday No area of fluctuance appreciated the whole area is indurated the central core of the apparently the IV was inserted has no drainage Results & Data Vital Signs (Past 12 Hours) Vital Signs Temp Pulse Pulse Pulse Resp BP Pulse Ox 12/20/19 04:21 36.6 C 67 16 129/85 98 12/19/19 23:38 75 12/19/19 23:35 37 C 61 16 121/81 96 12/19/19 20:38 79 18 96 the ultrasound done yesterday afternoon shows 1.3 x 1.2 x 0.5 cm abscess PG Care Time/CCT Total # of Minutes Spent Total Time Spent with Patient: Total time spent is greater than 50% in coordination of care (as documented) at patient's floor/unit and/or counseling patient: Coding Level of Care Code 23921 Subseq Hosp Care Lvl 3 Diagnoses Abscess L02.91
[2019-12-20] MEDS: FLUTICASONE/VILANTEROL 200/25MCG 14 PUFFS/INHALER INH SCH (08:49)
[2019-12-20] MEDS: PANTOprazole 40 MG TAB PO SCH (08:50)
[2019-12-20] MEDS: guaiFENesin 600 MG TABCR PO SCH ×2 (08:50→21:19)
[2019-12-20] MEDS: CYANOCOBALAMIN 500 MCG TABLET (VITAMIN B-12) PO SCH (08:51)
[2019-12-20] MEDS: THIAMINE HCL 100 MG TAB PO SCH (08:51)
[2019-12-20] MEDS: FOLIC ACID 1 MG TAB PO SCH (08:51)
[2019-12-20] MEDS: MULTIVITAMIN TAB PO SCH (08:52)
[2019-12-20] MEDS ORDERED: THIAMINE HCL 100 MG TAB PO SCH (09:00)
[2019-12-20] MEDS ORDERED: FOLIC ACID 1 MG TAB PO SCH (09:00)
--- NOTE | 2019-12-20 15:26 | Hospitalist Progress Note ---
Date of Service December 20, 2019 Assessment & Plan (1) Alcohol withdrawal: This is a 44-year-old female who has significant past medical history of alcohol abuse, asthma, MDD, panic disorder who presents to ED secondary to alcohol withdrawal symptoms x1 day. He was admitted with another episode of alcohol withdrawal symptoms Initially she received Librium and later on that was changed to gabapentin protocol She remains drowsy and getting to sleep immediately after a short conversation We will continue with current treatment Remains very drowsy without significant withdrawal symptoms Remains generally weak but no overt symptoms of withdrawal No symptoms of withdrawal Remains very weak and lethargic Continue with physical therapy evaluation-recommended placement No more withdrawal symptoms Will continue PT and OT (2) Alcoholic hepatitis: Elevated LFTS AST 335, ALT 172, alk phos 134, total bilirubin 1.2 Likely in setting of alcohol abuse AST greater than ALT Acute hepatitis panel -negative Liver US - No cholelithiasis or sonographic evidence of acute cholecystitis. No biliary ductal dilation. Hepatomegaly with hepatic steatosis. Will monitor hepatitis panel Liver function have been almost normalized (3) Gram-positive cocci bacteremia: Has had fever more than 38 C yesterday Has been on intravenous vancomycin and cefepime since then Noted to have gram-positive cocci in clusters bacteremia-Staphylococcus aureus and disease not MRSA and no sensitivities will be done Await further sensitivity Source of infection not yet known MRSA screen has been positive. Doubt any staph pneumonia Echocardiogram did not show any overt vegetation Continue current antibiotic Chest x-ray did not show any pneumonia Today is the 12th day of IV antibiotic will need 2 more days to finish 14 days of antibiotic Right forearm cellulitis with possible abscess Right forearm has a boil with spreading cellulitis and this is the most likely source of bacteremia Has MRSA bacteremia We will continue with intravenous daptomycin for a total of14 days of IV antibiotic PICC line placement and will have daptomycin for rest of the days to finish the course of antibiotic Ultrasound of the right forearm did show a small abscess and surgery recommended to have I&D but the patient refused Will apply warm compression and observe Neutropenia -Patient presented with low white blood cell count on admission, likely due to bone marrow suppression from alcohol use -Also on Librium taper which could decrease white blood cell count,switched to gabapentin taper -Continue diet and neutropenic precautions -Peripheral blood smear obtainednot specific, macrocytosis noted, no evidence of malignancy -Macrocytosis, MCV > 100, continue folate, start vitamin B12 supplement, B12 level ordered CBC has been improving (4) Acute pancreatitis: elevated lipase 2802, presents with n/v No abdominal pain likely 2/2 to significant ETOH abuse given elevated LFTS ordered RUQ u/s to rule out obstructive process Was on n.p.o. and received intravenous fluid GI consulted-appreciate input and recommendation Lipase increased after admission, GI recommended to obtain MRCP MRCP negative for pancreatitis, overall unremarkable study We will continue to follow No signs and/or symptoms of pancreatitis (5) Electrolyte abnormality: Secondary to alcoholism and pancreatitis Hypophosphatemia, Phos 2.1, replete and monitor Hypomagnesemia, mag 1.5, likely due to IV fluids and n.p.o. status, replete and monitor Mild hypokalemia, goal potassium over 4, replete and monitor Banana bag ordered in ED; then Maintenance LR @ 200/hr We will monitor electrolytes and replace accordingly- have been normal (6) Depression: Patient previously had been on Paxil and trazodone States has not been taking for the past 2 to 3-weeks Currently denies depressed mood, SI or HI; however per ED note day prior, as well as encounters in [place] appears she has been struggling with anxiety and depression since development of pandemic Remains very depressed We will get psychiatric evaluation evaluation Appreciate psychiatric input and recommendation No recommendation to start any antidepressant Recommended intensive outpatient program for rehab (7) Asthma: No acute exacerbation Continue Advair, PRN albuterol DVT prophylaxis SCDs CODE STATUS Full (8) Anxiety: Admission and Anticipated Discharge Date Admission Date: December 09, 2019 Subjective The patient was seen and examined in telemetry unit She is a 44-year-old female with history of alcohol abuse medical admission to the hospital with withdrawal, asthma, panic disorder admitted with another attack of alcohol withdrawal symptoms She also noted to have acute pancreatitis and alcoholic hepatitis She has been complaining of occasional increasing drowsiness and has been going to sleep right away after minimal conversation Has been feeling little better this morning and denies any acute distress 12/16/2019 The patient was seen and examined in telemetry unit She feels a little bit better today but remains drowsy and falls asleep quickly Denies any significant symptoms Will ask for PT and OT evaluation 12/17/2019 The patient was seen and examined in telemetry unit She has been feeling a lot better today She is alert and awake and asking too many questions She wants to go home but physical therapy recommended that she should be going to rehab 12/18/2019 Patient was seen and examined in telemetry unit She refused to have her PICC line She wants to go home but physical therapy recommended for rehab She remains a little drowsy as of today 12/19/2019 The patient was seen and examined in telemetry unit She has been upset about the nursing care Complains to have more pain and redness involving the right forearm but otherwise denies any other symptoms 12/20/2019 The patient was seen and examined in telemetry unit She refused to have I and D for the right forearm abscess under anesthesia Was advised to use moist warm compression to help with the swelling and abscess Remains generally weak and lethargic Review of Systems Review of Systems: All systems reviewed and are unremarkable except as noted below Musculoskeletal: Right forearm swelled with redness and tenderness without any fluctuation Neurologic: + generalized weakness Patient still seems to be quite groggy, but answers questions appropriately and eating by herself Physical Exam Physical Exam: Lying in bed comfortably but very anxious Constitutional: well developed, well nourished, + ill appearing and + obese; no acute distress Eyes: PERRL, conjunctivae normal, anicteric sclerae ENMT: external ear and nose normal, oropharynx normal Neck: trachea midline, no thyromegaly Respiratory: normal respiratory effort; no respiratory distress Auscultation: + diminished lung sounds (Minimal crackles at the bases) Cardiovascular: Rate/Rhythm: regular rate and regular rhythm Heart Sounds: no murmur Gastrointestinal (Abdomen): Inspection/Auscultation: abdomen normal to inspe ction and normal bowel sounds; abdomen not distended Percussion/Palpation: abdomen soft; abdomen nontender Musculoskeletal: Right forearm remains red and swollen without any definite fluctuation-redness and swelling seems to be improving Neurologic: moves all extremities; no focal motor deficits Lymphatic: no cervical or axillary lymphadenopathy Results & Data Results & Data ([facility]) Vital Signs (Past 12 Hours) Vital Signs Temp Pulse Pulse Resp BP Pulse Ox 12/20/19 11:51 36.8 C 76 18 139/69 12/20/19 04:21 36.6 C 67 16 129/85 98 Laboratory Results Short CBC 12/20/19 Range/Units 04:48 WBC 3.30 L (4.8-10.8) K/uL Hgb 11.9 L (12.0-16.0) g/dL Hct 36.3 L (37-47) % Plt Count 283 (130-400) K/uL [facility] 12/20/19 04:48 Sodium 143 Potassium 3.5 Chloride 112 H Carbon Dioxide 25 BUN 6 L Creatinine 0.81 Glucose 92 Calcium 9.7 Medications Administered Current Inpatient Medications Acetaminophen (Tylenol) 1,000 mg PO Q8 [facility] Stop: 01/13/20 17:29 Last Admin: 12/20/19 12:56 Dose: Not Given Documented by: Al Hydrox/Mg Hydrox/Simethicone (Maalox) 15 ml PO Q4H PRN PRN Reason: Dyspepsia Stop: 01/08/20 09:26 Last Admin: 12/12/19 22:37 Dose: 15 ml Documented by: Albuterol (Ventolin Hfa) 2 puffs INH Q6H PRN PRN Reason: Shortness Of Breath Stop: 01/08/20 09:26 Last Admin: 12/19/19 20:37 Dose: 2 puffs Documented by: Albuterol (Duoneb) 3 ml NEB Q4R PRN PRN Reason: Shortness Of Breath Or Wheezing Stop: 01/13/20 14:59 Cyanocobalamin (Vitamin B-12) 1,000 mcg PO QAM@0800 [facility] Stop: 01/12/20 19:59 Last Admin: 12/20/19 08:51 Dose: 1,000 mcg Documented by: Fluticasone/Vilanterol (Breo Ellipta 200/25 Mcg Inh) 1 puffs INH QAM [facility]; Protocol Stop: 01/08/20 09:59 Last Admin: 12/20/19 08:49 Dose: 1 puffs Documented by: Folic Acid (Folvite) 1 mg PO QAM [facility] Stop: 01/18/20 08:59 Last Admin: 12/20/19 08:51 Dose: 1 mg Documented by: Guaifenesin (Mucinex) 600 mg PO Q12 [facility] Stop: 01/13/20 20:59 Last Admin: 12/20/19 08:50 Dose: Not Given Documented by: Hydroxyzine HCl (Vistaril) 10 mg PO Q8 PRN PRN Reason: Anxiety Stop: 01/18/20 10:45 Lorazepam (Ativan) 1 mg in 2 mls @ 2 mls/min IV UD PRN; Protocol PRN Reason: EtOH Withdrawl AWSS Score 6,7 Stop: 01/08/20 09:26 Last Admin: 12/14/19 13:53 Dose: 0.5 mls/min Documented by: Lorazepam (Ativan) 2 mg in 4 mls @ 4 mls/min IV UD PRN; Protocol PRN Reason: EtOH Withdrawl AWSS Score 8,9 Stop: 01/08/20 09:26 Last Admin: 12/19/19 20:56 Dose: 4 mls/min Documented by: Lorazepam (Ativan) 3 mg in 6 mls @ 4 mls/min IV ONCE PRN; Protocol PRN Reason: EtOH Withdrawl AWSS Score >=10 Stop: 01/08/20 09:26 Lorazepam (Ativan) 0.5 mg in 1 mls @ 0.5 mls/min IV UD PRN PRN Reason: Agitation Stop: 01/13/20 17:35 Last Admin: 12/18/19 06:07 Dose: 0.5 mls/min Documented by: Daptomycin 650 mg/ Syringe 13 mls @ 6.5 mls/min IV DAILY@1800 [facility]; Protocol Stop: 12/31/19 17:59 Last Admin: 12/19/19 18:12 Dose: 6.5 mls/min Documented by: Loperamide HCl (Imodium) 2 mg PO NOW [facility] Stop: 01/09/20 10:59 Last Admin: 12/10/19 12:34 Dose: 2 mg Documented by: Magnesium Hydroxide (Milk Of Magnesia) 30 ml PO Q12H PRN PRN Reason: Constipation Stop: 01/08/20 09:26 Miscellaneous Information (Consult) 1 ea N/A UD PRN PRN Reason: Consult Stop: 01/16/20 13:50 Multivitamins (Multivitamin Tab) 1 tab PO [facility] Stop: 01/08/20 09:26 Last Admin: 12/20/19 08:52 Dose: 1 tab Documented by: Ondansetron HCl (Zofran) 4 mg IV Q6H PRN PRN Reason: Nausea Stop: 01/08/20 09:26 Pantoprazole Sodium (Protonix) 40 [facility] [place] Stop: 01/18/20 10:59 Last Admin: 12/20/19 08:50 Dose: 40 mg Documented by: Polyethylene Glycol (Miralax Powder Packet) 17 gm PO DAILY PRN PRN Reason: Constipation Stop: 01/08/20 09:26 Thiamine HCl (Vitamin B-1) 100 mg PO QAM [facility] Stop: 01/18/20 08:59 Last Admin: 12/20/19 08:51 Dose: 100 mg Documented by: (1) Alcoholic hepatitis Ascites presence: without ascites Qualified Code(s): K70.10 - Alcoholic hepatitis without ascites (2) Depression Depression Type: unspecified Qualified Code(s): F32.9 - Major depressive disorder, single episode, unspecified (3) Asthma Asthma severity: unspecified severity Asthma persistence: unspecified Asthma complication type: unspecified Qualified Code(s): J45.909 - Unspecified asthma, uncomplicated
[2019-12-20] MEDS: DAPTOmycin 650 MG in SYRINGE 0 ML IV SCH (17:49)
[2019-12-20] MEDS: LORazepam 2 MG/4 ML VIAL IV PRN (21:12)
[2019-12-21] MEDS: ACETAMINOPHEN 500 MG TAB PO SCH ×2 (05:42→13:16)
[2019-12-21] MEDS: THIAMINE HCL 100 MG TAB PO SCH (08:21)
[2019-12-21] MEDS: guaiFENesin 600 MG TABCR PO SCH (08:21)
[2019-12-21] MEDS: PANTOprazole 40 MG TAB PO SCH (08:22)
[2019-12-21] MEDS: MULTIVITAMIN TAB PO SCH (08:22)
[2019-12-21] MEDS: CYANOCOBALAMIN 500 MCG TABLET (VITAMIN B-12) PO SCH (08:22)
[2019-12-21] MEDS: FLUTICASONE/VILANTEROL 200/25MCG 14 PUFFS/INHALER INH SCH (08:22)
[2019-12-21] MEDS: FOLIC ACID 1 MG TAB PO SCH (08:22)
--- NOTE | 2019-12-21 11:37 | Hospitalist Progress Note ---
Date of Service December 21, 2019 Assessment & Plan (1) Alcohol withdrawal: This is a 44-year-old female who has significant past medical history of alcohol abuse, asthma, MDD, panic disorder who presents to ED secondary to alcohol withdrawal symptoms x1 day. He was admitted with another episode of alcohol withdrawal symptoms Initially she received Librium and later on that was changed to gabapentin protocol She remains drowsy and getting to sleep immediately after a short conversation We will continue with current treatment Remains very drowsy without significant withdrawal symptoms Remains generally weak but no overt symptoms of withdrawal No symptoms of withdrawal Remains very weak and lethargic Continue with physical therapy evaluation-recommended placement No more withdrawal symptoms Will continue PT and OT-recommended home with home PT Will go for outpatient alcohol rehab (2) Alcoholic hepatitis: Elevated LFTS AST 335, ALT 172, alk phos 134, total bilirubin 1.2 Likely in setting of alcohol abuse AST greater than ALT Acute hepatitis panel -negative Liver US - No cholelithiasis or sonographic evidence of acute cholecystitis. No biliary ductal dilation. Hepatomegaly with hepatic steatosis. Will monitor hepatitis panel Liver function have been almost normalized (3) Gram-positive cocci bacteremia: Has had fever more than 38 C yesterday Has been on intravenous vancomycin and cefepime since then Noted to have gram-positive cocci in clusters bacteremia-Staphylococcus aureus and disease not MRSA and no sensitivities will be done Await further sensitivity Source of infection not yet known MRSA screen has been positive. Doubt any staph pneumonia Echocardiogram did not show any overt vegetation Continue current antibiotic Chest x-ray did not show any pneumonia Today is the 12th day of IV antibiotic will need 2 more days to finish 14 days of antibiotic We will continue intravenous daptomycin for 7 more days as an outpatient Right forearm cellulitis with possible abscess Right forearm has a boil with spreading cellulitis and this is the most likely source of bacteremia Has MRSA bacteremia We will continue with intravenous daptomycin for a total of14 days of IV antibiotic PICC line placement and will have daptomycin for rest of the days to finish the course of antibiotic Ultrasound of the right forearm did show a small abscess and surgery recommended to have I&D but the patient refused Will apply warm compression and observe-improving She does not want to have any surgery Neutropenia -Patient presented with low white blood cell count on admission, likely due to bone marrow suppression from alcohol use -Also on Librium taper which could decrease white blood cell count,switched to gabapentin taper -Continue diet and neutropenic precautions -Peripheral blood smear obtainednot specific, macrocytosis noted, no evidence of malignancy -Macrocytosis, MCV > 100, continue folate, start vitamin B12 supplement, B12 level ordered CBC has been improving (4) Acute pancreatitis: elevated lipase 2802, presents with n/v No abdominal pain likely 2/2 to significant ETOH abuse given elevated LFTS ordered RUQ u/s to rule out obstructive process Was on n.p.o. and received intravenous fluid GI consulted-appreciate input and recommendation Lipase increased after admission, GI recommended to obtain MRCP MRCP negative for pancreatitis, overall unremarkable study We will continue to follow No signs and/or symptoms of pancreatitis (5) Electrolyte abnormality: Secondary to alcoholism and pancreatitis Hypophosphatemia, Phos 2.1, replete and monitor Hypomagnesemia, mag 1.5, likely due to IV fluids and n.p.o. status, replete and monitor Mild hypokalemia, goal potassium over 4, replete and monitor Banana bag ordered in ED; then Maintenance LR @ 200/hr We will monitor electrolytes and replace accordingly- have been normal (6) Depression: Patient previously had been on Paxil and trazodone States has not been taking for the past 2 to 3-weeks Currently denies depressed mood, SI or HI; however per ED note day prior, as well as encounters in [facility] appears she has been struggling with anxiety and depression since development of pandemic Remains very depressed We will get psychiatric evaluation evaluation Appreciate psychiatric input and recommendation No recommendation to start any antidepressant Recommended intensive outpatient program for rehab (7) Asthma: No acute exacerbation Continue Advair, PRN albuterol DVT prophylaxis SCDs CODE STATUS Full (8) Anxiety: Admission and Anticipated Discharge Date Admission Date: December 09, 2019 Anticipated date of discharge: 12/21/19 Subjective The patient was seen and examined in telemetry unit She is a 44-year-old female with history of alcohol abuse medical admission to the hospital with withdrawal, asthma, panic disorder admitted with another attack of alcohol withdrawal symptoms She also noted to have acute pancreatitis and alcoholic hepatitis She has been complaining of occasional increasing drowsiness and has been going to sleep right away after minimal conversation Has been feeling little better this morning and denies any acute distress 12/16/2019 The patient was seen and examined in telemetry unit She feels a little bit better today but remains drowsy and falls asleep quickly Denies any significant symptoms Will ask for PT and OT evaluation 12/17/2019 The patient was seen and examined in telemetry unit She has been feeling a lot better today She is alert and awake and asking too many questions She wants to go home but physical therapy recommended that she should be going to rehab 12/18/2019 Patient was seen and examined in telemetry unit She refused to have her PICC line She wants to go home but physical therapy recommended for rehab She remains a little drowsy as of today 12/19/2019 The patient was seen and examined in telemetry unit She has been upset about the nursing care Complains to have more pain and redness involving the right forearm but otherwise denies any other symptoms 12/20/2019 The patient was seen and examined in telemetry unit She refused to have I and D for the right forearm abscess under anesthesia Was advised to use moist warm compression to help with the swelling and abscess Remains generally weak and lethargic 12/21/2019 The patient was seen and examined in telemetry unit She is upset that she is still staying in the hospital She denies any symptoms as of this morning Her right forearm has been getting better Review of Systems Review of Systems: All systems reviewed and are unremarkable except as noted below Musculoskeletal: Right forearm swelling and redness are better without any fluctuation Neurologic: + generalized weakness Patient still seems to be quite groggy, but answers questions appropriately and eating by herself Physical Exam Physical Exam: Lying in bed comfortably but very anxious Constitutional: well developed, well nourished and + obese; no acute distress and not ill appearing Eyes: PERRL, conjunctivae normal, anicteric sclerae ENMT: external ear and nose normal, oropharynx normal Neck: trachea midline, no thyromegaly Respiratory: normal respiratory effort; no respiratory distress Auscultation: lungs clear to auscultation bilaterally Cardiovascular: Rate/Rhythm: regular rate and regular rhythm Heart Sounds: no murmur Gastrointestinal (Abdomen): Inspection/Auscultation: abdomen normal to inspection and normal bowel sounds; abdomen not distended Percussion/Palpation: abdomen soft; abdomen nontender Musculoskeletal: No acute arthritis in any joints Neurologic: moves all extremities; no focal motor deficits Alert, awake and oriented x3 Lymphatic: no cervical or axillary lymphadenopathy Results & Data Results & Data ([facility]) Vital Signs (Past 12 Hours) Vital Signs Temp Pulse Pulse Pulse Resp BP Pulse Ox 12/21/19 08:09 36.8 C 73 16 118/76 96 12/21/19 08:00 67 12/20/19 23:53 67 12/20/19 23:36 36.9 C 61 16 124/82 94 Medications Administered Current Inpatient Medications Acetaminophen (Tylenol) 1,000 mg PO Q8 [facility] Stop: 01/13/20 17:29 Last Admin: 12/21/19 05:42 Dose: Not Given Documented by: Al Hydrox/Mg Hydrox/Simethicone (Maalox) 15 ml PO Q4H PRN PRN Reason: Dyspepsia Stop: 01/08/20 09:26 Last Admin: 12/12/19 22:37 Dose: 15 ml Documented by: Albuterol (Ventolin Hfa) 2 puffs INH Q6H PRN PRN Reason: Shortness Of Breath Stop: 01/08/20 09:26 Last Admin: 12/19/19 20:37 Dose: 2 puffs Documented by: Albuterol (Duoneb) 3 ml NEB Q4R PRN PRN Reason: Shortness Of Breath Or Wheezing Stop: 01/13/20 14:59 Cyanocobalamin (Vitamin B-12) 1,000 mcg PO QAM@0800 [facility] Stop: 01/12/20 19:59 Last Admin: 12/21/19 08:22 Dose: 1,000 mcg Documented by: Fluticasone/Vilanterol (Breo Ellipta 200/25 Mcg Inh) 1 puffs INH QAM [facility]; Protocol Stop: 01/08/20 09:59 Last Admin: 12/21/19 08:22 Dose: 1 puffs Documented by: Folic Acid (Folvite) 1 mg PO QAM [facility] Stop: 01/18/20 08:59 Last Admin: 12/21/19 08:22 Dose: 1 mg Documented by: Guaifenesin (Mucinex) 600 mg PO Q12 [facility] Stop: 01/13/20 20:59 Last Admin: 12/21/19 08:21 Dose: 600 mg Documented by: Hydroxyzine HCl (Vistaril) 10 mg PO Q8 PRN PRN Reason: Anxiety Stop: 01/18/20 10:45 Lorazepam (Ativan) 1 mg in 2 mls @ 2 mls/min IV UD PRN; Protocol PRN Reason: EtOH Withdrawl AWSS Score 6,7 Stop: 01/08/20 09:26 Last Admin: 12/14/19 13:53 Dose: 0.5 mls/min Documented by: Lorazepam (Ativan) 2 mg in 4 mls @ 4 mls/min IV UD PRN; Protocol PRN Reason: EtOH Withdrawl AWSS Score 8,9 Stop: 01/08/20 09:26 Last Admin: 12/20/19 21:12 Dose: 4 mls/min Documented by: Lorazepam (Ativan) 3 mg in 6 mls @ 4 mls/min IV ONCE PRN; Protocol PRN Reason: EtOH Withdrawl AWSS Score >=10 Stop: 01/08/20 09:26 Lorazepam (Ativan) 0.5 mg in 1 mls @ 0.5 mls/min IV UD PRN PRN Reason: Agitation Stop: 01/13/20 17:35 Last Admin: 12/18/19 06:07 Dose: 0.5 mls/min Documented by: Daptomycin 650 mg/ Syringe 13 mls @ 6.5 mls/min IV DAILY@1800 [facility]; Protocol Stop: 12/31/19 17:59 Last Admin: 12/20/19 17:49 Dose: 6.5 mls/min Documented by: Loperamide HCl (Imodium) 2 mg PO NOW [facility] Stop: 01/09/20 10:59 Last Admin: 12/10/19 12:34 Dose: 2 mg Documented by: Magnesium Hydroxide (Milk Of Magnesia) 30 ml PO Q12H PRN PRN Reason: Constipation Stop: 01/08/20 09:26 Miscellaneous Information (Consult) 1 ea N/A UD PRN PRN Reason: Consult Stop: 01/16/20 13:50 Multivitamins (Multivitamin Tab) 1 tab PO [facility] Stop: 01/08/20 09:26 Last Admin: 12/21/19 08:22 Dose: 1 tab Documented by: Ondansetron HCl (Zofran) 4 mg IV Q6H PRN PRN Reason: Nausea Stop: 01/08/20 09:26 Pantoprazole Sodium (Protonix) [facility] [place] Stop: 01/18/20 10:59 Last Admin: 12/21/19 08:22 Dose: 40 mg Documented by: Polyethylene Glycol (Miralax Powder Packet) 17 gm PO DAILY PRN PRN Reason: Constipation Stop: 01/08/20 09:26 Thiamine HCl (Vitamin B-1) 100 mg PO QAM [facility] Stop: 01/18/20 08:59 Last Admin: 12/21/19 08:21 Dose: 100 mg Documented by: (1) Alcoholic hepatitis Ascites presence: without ascites Qualified Code(s): K70.10 - Alcoholic hepatitis without ascites (2) Depression Depression Type: unspecified Qualified Code(s): F32.9 - Major depressive disorder, single episode, unspecified (3) Asthma Asthma severity: unspecified severity Asthma persistence: unspecified Asthma complication type: unspecified Qualified Code(s): J45.909 - Unspecified asthma, uncomplicated
[2019-12-21] MEDS: DAPTOmycin 650 MG in SYRINGE 0 ML IV SCH (15:44)
--- NOTE | 2019-12-22 09:29 | Discharge Summary ---
Date of Service December 22, 2019 Admission HPI Per Admitting Provider This is a 44-year-old female who has significant past medical history of alcohol abuse, asthma, MDD, panic disorder who presents to ED secondary to alcohol withdrawal symptoms x1 day. She elicits to drinking 1.5 pints of alcohol daily for the past year. Prior to the past year she was drinking significant amounts of wine. Her last drink was yesterday morning at approximately 9 AM, hard liquor. Yesterday afternoon she began to feel tremulous, sweats, cloudy vision, and nauseated. According to outpatient records mother had contacted PCP several times due to concern for altered mental status, ill feeling and not getting out of bed. Initially was resistant to come to ED but did end up seeking treatment yesterday evening. She was seen in ED for alcohol withdrawal, given IV fluid, thiamine and folic acid as well as other milligrams of Librium. She was discharged home on Librium but did not resume taper. She presents back today secondary to persistent tremors, sweats, nausea and multiple episodes of emesis. She denies any hematemesis. She denies any documented fever, chills, lightheadedness, syncope, chest pain, shortness of breath, palpitations, hemoptysis, abdominal pain, dysuria, increased urgency or frequency with urination, diarrhea, melena, hematochezia. Her last BM was 2 days ago. She was able to eat a sandwich yesterday and tolerate liquids but otherwise has had a poor p.o. intake. She does complain of feeling dizzy when standing and very off balance. According to ER nurse when patient attempted to ambulate to bathroom in ED she was very unsteady. She does have prior history of alcohol withdrawal and was last hospitalized July 2019. She denies any prior history of DTs or seizure-like activity. In ED patient was hemodynamically stable, but was tachycardic. She did receive 1 L IVF, oral thiamine and folic acid along with a total of 4 mg of IV Ativan. She also received IV Zofran with improvement of nausea. She has not had any episodes of emesis while in ED. Lab work notable for leukopenia and thrombocytopenia with a white count of 2.45k and platelet count of 100,000 consistent with alcohol abuse. Further lab abnormalities include AST 335, ALT 172, alk phos 134, total bili 1.2, Phos 2.1, mag 1.8, K3.6, lipase 2802, ethyl alcohol 21. Admission Exam Per Admitting Provider Physical Exam: Constitutional: WD/WN, acutely ill-appearing, tremulous, vitals as above, NAD, sitting up in bed, drowsy, answers questions appropriately Head: Normocephalic, Atraumatic Eyes: PERRL, conjunctivae normal, anicteric sclerae ENMT: external ear and nose normal, oropharynx normal dry mucous membranes Neck: trachea midline, no thyromegaly normal visual inspection Respiratory: normal respiratory effort, lungs clear to auscultation, no wheeze, rales, rhonchi. Normal insp/exp effort, no accessory muscle use Cardiovascular: Tachycardic rate, regular rhythm,no murmur, no edema Vessels: no JVD or carotid bruit Chest: normal inspection of chest Abdomen: mild distension of abd, normal bowel sounds, soft, nontender, Musculoskeletal: no cyanosis or clubbing, extremities motor strength 5/5 Skin: no rashes, warm and dry normal turgor Neurologic: + b/l upper ext tremors, PERRL, EOMI, accommodation nl, no face palsy, no dysarthria CN's II-XI intact bilaterally and moves all extremities Psychiatric: A+Ox3, euthymic affect Lymphatic: no cervical or axillary lymphadenopathy : deferred Principal Diagnosis Alcohol abuse with withdrawal, alcoholic hepatitis, acute pancreatitis, right forearm cellulitis with MRSA bacteremia, depression Discharge Exam Constitutional well developed, well nourished and + obese; no acute distress and not ill appearing Eyes PERRL, conjunctivae normal, anicteric sclerae ENMT external ear and nose normal, oropharynx normal Neck trachea midline, no thyromegaly Respiratory normal respiratory effort; no respiratory distress Auscultation: lungs clear to auscultation bilaterally Cardiovascular Rate/Rhythm: regular rate and regular rhythm Heart Sounds: no murmur Gastrointestinal (Abdomen) Inspection/Auscultation: abdomen normal to inspection and normal bowel sounds; abdomen not distended Percussion/Palpation: abdomen soft; abdomen nontender Neurologic moves all extremities; no focal motor deficits Lymphatic no cervical or axillary lymphadenopathy Discharge Data Allergies Allergy/AdvReac Type Severity Reaction Status Date / Time theophylline AdvReac Unknown VERTIGO Verified 12/09/19 04:34 Consultations 12/09/19 07:16 ED Decision to Admit Stat 12/09/19 09:22 Consult Gastroenterology Routine 12/09/19 09:27 Consult Case Management - Discharge Planning Routine 12/16/19 17:21 Consult Psychiatry Routine 12/19/19 10:45 Consult General Surgery Routine Ordered Studies 12/09/19 09:08 US abdomen limited Stat 12/10/19 16:32 MR MRCP Routine 12/14/19 13:45 CT abd pelvis oral and IV con Urgent 12/14/19 17:22 US venous doppler LE BI Urgent 12/19/19 11:18 US extremity nonvascular Routine Hospital Course (1) Alcohol withdrawal: This is a 44-year-old female who has significant past medical history of alcohol abuse, asthma, MDD, panic disorder who presents to ED secondary to alcohol withdrawal symptoms x1 day. He was admitted with another episode of alcohol withdrawal symptoms Initially she received Librium and later on that was changed to gabapentin protocol She remains drowsy and getting to sleep immediately after a short conversation We will continue with current treatment Remains very drowsy without significant withdrawal symptoms Remains generally weak but no overt symptoms of withdrawal No symptoms of withdrawal Remains very weak and lethargic Continue with physical therapy evaluation-recommended placement No more withdrawal symptoms Will continue PT and OT-recommended home with home PT Will go for outpatient alcohol rehab (2) Alcoholic hepatitis: Elevated LFTS AST 335, ALT 172, alk phos 134, total bilirubin 1.2 Likely in setting of alcohol abuse AST greater than ALT Acute hepatitis panel -negative Liver US - No cholelithiasis or sonographic evidence of acute cholecystitis. No biliary ductal dilation. Hepatomegaly with hepatic steatosis. Will monitor hepatitis panel Liver function have been almost normalized (3) Gram-positive cocci bacteremia: Has had fever more than 38 C yesterday Has been on intravenous vancomycin and cefepime since then Noted to have gram-positive cocci in clusters bacteremia-Staphylococcus aureus and disease not MRSA and no sensitivities will be done Await further sensitivity Source of infection not yet known MRSA screen has been positive. Doubt any staph pneumonia Echocardiogram did not show any overt vegetation Continue current antibiotic Chest x-ray did not show any pneumonia Today is the 12th day of IV antibiotic will need 2 more days to finish 14 days of antibiotic We will continue intravenous daptomycin for 7 more days as an outpatient Right forearm cellulitis with possible abscess Right forearm has a boil with spreading cellulitis and this is the most likely source of bacteremia Has MRSA bacteremia We will continue with intravenous daptomycin for a total of14 days of IV antibiotic PICC line placement and will have daptomycin for rest of the days to finish the course of antibiotic Ultrasound of the right forearm did show a small abscess and surgery recommended to have I&D but the patient refused Will apply warm compression and observe-improving She does not want to have any surgery Neutropenia -Patient presented with low white blood cell count on admission, likely due to bone marrow suppression from alcohol use -Also on Librium taper which could decrease white blood cell count,switched to gabapentin taper -Continue diet and neutropenic precautions -Peripheral blood smear obtainednot specific, macrocytosis noted, no evidence of malignancy -Macrocytosis, MCV > 100, continue folate, start vitamin B12 supplement, B12 level ordered CBC has been improving (4) Acute pancreatitis: elevated lipase 2802, presents with n/v No abdominal pain likely 2/2 to significant ETOH abuse given elevated LFTS ordered RUQ u/s to rule out obstructive process Was on n.p.o. and received intravenous fluid GI consulted-appreciate input and recommendation Lipase increased after admission, GI recommended to obtain MRCP MRCP negative for pancreatitis, overall unremarkable study We will continue to follow No signs and/or symptoms of pancreatitis (5) Electrolyte abnormality: Secondary to alcoholism and pancreatitis Hypophosphatemia, Phos 2.1, replete and monitor Hypomagnesemia, mag 1.5, likely due to IV fluids and n.p.o. status, replete and monitor Mild hypokalemia, goal potassium over 4, replete and monitor Banana bag ordered in ED; then Maintenance LR @ 200/hr We will monitor electrolytes and replace accordingly- have been normal (6) Depression: Patient previously had been on Paxil and trazodone States has not been taking for the past 2 to 3-weeks Currently denies depressed mood, SI or HI; however per ED note day prior, as well as encounters in [facility] appears she has been struggling with anxiety and depression since development of pandemic Remains very depressed We will get psychiatric evaluation evaluation Appreciate psychiatric input and recommendation No recommendation to start any antidepressant Recommended intensive outpatient program for rehab (7) Asthma: No acute exacerbation Continue Advair, PRN albuterol DVT prophylaxis SCDs CODE STATUS Full (8) Anxiety: Total Time Total Time Spent Total Time Spent (In Minutes): 35 minutes Total Time Includes: Examination of the Patient, Discharge Planning, Medication Reconciliation and Communication With Other Providers Discharge Plan Discharge Items Patient Disposition: Home - Home Health Services Reason For Visit: ALCOHOL WITHDRAWAL Discharge Diagnosis: Alcohol abuse with withdrawal, alcoholic hepatitis, acute pancreatitis, right forearm cellulitis with MRSA bacteremia, depression Condition on Discharge: Good Activity: As commented below Activity Comment: Continue outpatient PT and OT Non-emergency contact: Primary Care Provider Call non-emergency contact if: you have any medication questions and your symptoms worsen Follow-up/Referrals: Camila Joyner PA-C [Primary Care Provider] - Diet: Low Fat Addtl Attending Provider Instructions: Please take precaution to avoid falls Finish your intravenous antibiotic as advised Strongly advised to have follow-up appointments with outpatient rehab as advised by the psychiatric Pending Studies at Discharge: No Stand-Alone Forms: My Flumes, Smoking Cessation Medications and DC Order Prescriptions: New pantoprazole 40 mg Tablet,Delayed Release (Dr/Ec) 40 mg PO QAM Qty: 30 RF: 0 Lactinex 1 million cell tablet,chewable 1 tab PO TID Qty: 30 RF: 0 Continued fluticasone propion-salmeterol [Advair Diskus] 250-50 mcg/dose blister with device 1 inh inhalation QAM RF: 0 albuterol sulfate [Ventolin HFA] 90 mcg/actuation Hfa Aerosol Inhaler 2 puff INHALATION Q6H PRN (Reason: Shortness Of Breath) RF: 0 hydroxyzine HCl 10 mg tablet 10 mg PO Q8 PRN (Reason: Anxiety) RF: 0 multivitamin [Daily-Harris] Tablet 1 tab PO QAM Qty: 0 RF: 0 thiamine HCl (vitamin B1) [Vitamin B-1] 100 mg Tablet 100 mg PO QAM Qty: 0 RF: 0 folic acid 1 mg Tablet 1 mg PO QAM Qty: 0 RF: 0 Discharge Orders: Discharge Order (Routine); Ordered 12/21/19 Ordered By: Brett Vasquez Admission Data Admit Date/Time: 12/09/19 07:55 Attending Provider: Brett Vasquez Admit Provider: Harley Pettit Primary Care Provider: Camila Joyner Other Providers: Hannah Mesa Robin A. ; Harley Pettit ; Clementina Watt ; Grey Alfonso ; [facility] Other Interventions: Discharge Summary Assessment (RN) Last Done: 12/21/19 15:38 PSY Interdisciplinary Discharge Planning Last Done: 12/20/19 11:45 DC Date/Time DO NOT enter until pt leaves facility: 12/21/19 16:52
== END 2019-12-21 16:52 | disposition home health service (06) | DRG 896 ==
LOC: ED 04:14 → SUATTDRO 07:55 → 1E 07:55 → 2S 12-11 18:58

== ENCOUNTER 2020-02-27 13:11 | Inpatient (IN) ==
[2020-02-27] MEDS ORDERED: MULTI-VITAMIN INFUSION 10 ML, THIAMINE HCL 100 MG, FOLIC ACID 1 MG in SODIUM CHLORIDE 0... IV ONE (13:53)
[2020-02-27] MEDS ORDERED: LORazepam 1 MG/2 ML VIAL IV STA (13:53)
[2020-02-27] MEDS ORDERED: PANTOprazole 80 MG in DEXTROSE 5% 100 ML IV STA (13:53)
--- NOTE | 2020-02-27 13:58 | Emergency Department Note ---
Impression & Plan Weakness, Acute pancreatitis, REG (acute kidney injury), DKA (diabetic ketoacidoses), Coffee ground emesis ED Provider Note NAME: ARIC GRANT AGE: 44 SEX: F : 1975 ARRIVES VIA: Ambulance INFORMANT: [Patient][ems, nursing] ED PROVIDER(S): [Randell Shetty MD] CHIEF COMPLAINT: Alcohol abuse HISTORY OF PRESENT ILLNESS: The patient is a 44-year-old alcoholic. She presents to the ED by EMS for alcohol abuse and possible intoxication. She was found today by her parents. Apparently, she has not been out of her bed in several days. Patient states that she is currently thirsty. She denies any pain. As per EMS, there was coffee-ground emesis in the bed and there is concern for upper GI bleeding. The patient denies any alcohol use for the last few days, although, EMS felt she seemed intoxicated. The patient has not had fever, she denies diarrhea. She denies any pain right now. She does state that she feels weak and exhausted and that is the reason she has not been out of bed. Of note, the patient was in our hospital a few months ago for alcohol abuse and withdrawal. She had a bacteremia at that time from a cellulitis on her arm. REVIEW OF SYSTEMS: See HPI for pertinent positives and negatives. A total of ten systems were reviewed and were otherwise negative. PMHx/PSHx: See Below SOCIAL HISTORY: See Below. PHYSICAL EXAM: GENERAL: Patient is in mild distress. HEENT: No acute trauma, normocephalic atraumatic, mucous membranes dry, no nasal congestion, no scleral icterus. NECK: No stridor, no adenopathy, no meningismus, trachea is midline. LUNGS: Clear to auscultation bilaterally, no wheeze, no rhonchi, breath sounds equal. Increased respiratory rate. HEART: Without murmurs gallops or rubs, tachycardic, regular rhythm. ABDOMEN: Soft, nontender, bowel sounds positive, no hernias, no peritonitis. There is some abdominal distention noted. EXTREMITIES: No cyanosis or edema, full range of motion of all the joints withou t pain or difficulty, no signs for acute trauma. NEUROLOGIC: Oriented x 3, no acute motor or sensory deficits, no focal weakness. Answers questions without difficulty. No speech slur. SKIN: No rash, no jaundice, no diaphoresis. DIFFERENTIAL DIAGNOSIS: Infection, dehydration, metabolic abnormality, alcohol intoxication, alcohol abuse, alcohol withdrawal, GI bleeding, ulcer, pancreatitis, bowel obstruction, hypo/hyperglycemia, electrolyte disturbance, anemia, hypoxia, cardiac sources, intracerebral event, toxicologic, neurologic, as well as other pathologies. EMERGENCY DEPARTMENT COURSE/PROCEDURES: ECG: Indication was tachycardia. The ECG shows a normal sinus rhythm with a rate of 98. There is no ST elevation, no PVCs. The QTc is 439. Continuous Cardiac Monitoring: An order was placed for continuous cardiac monitoring. The monitor shows a rate of 114 with sinus tachycardia. Critical Care Note: I have personally spent greater than 49 minutes of critical care time in the direct management of this patient. This includes bedside care, interpretation of diagnostic studies, and testing, discussion with consultants, patient, and family members, and other required patient management activities. This 49 minutes is in excess of all separately billable procedures. MEDICAL DECISION MAKING: There is no leukocytosis or concerning anemia. There was a normal platelet count. INR slightly elevated at 1.2. ABG showed an acidosis with a pH of 7.25. This appeared to be a metabolic acidosis. Renal panel testing showed a low sodium at 121. The CO2 was low consistent with acidosis. BUN and creatinine were quite elevated. Creatinine was recorded at 7.7. There were some elevated liver enzymes consistent with her alcohol abuse. No evidence for rhabdomyolysis. Lipase was elevated at 770, this value is consistent with pancreatitis. The patient appeared to be in a euthyroid state. Urinalysis showed ketones and glucose, no true evidence for infection. Urine tox was negative. Alcohol level was undetectable. Chest film did not show pneumonia or CHF. Abdominal CT did not show bowel obstruction, pancreatitis was seen. ECG showed a sinus rhythm, no acute ischemia. Cardiac enzyme testing x1 was not consistent with acute cardiac injury. The patient was aggressively managed given her findings. She received a saline bolus and then a bag of saline with multivitamins, thiamine and folate. She was given a bolus of IV Protonix for the possibility of upper GI bleeding. She received a dose of IV Ativan, 1 mg. He received an insulin bolus and was placed on an insulin drip. The patient is quite ill. She has acute renal failure, she is in DKA, she is quite dehydrated, she is acidotic. She is going to require a hospital stay. I did speak with the ICU attending, I spoke with the on-call hospitalist. I spoke to the patient at length, I spoke with her mother as well. The case management team has been involved. Patient will be admitted to our facility. Past Med/Surg History Medical History Alcohol abuse Anxiety Asthma Surgical History History of dental surgery History of esophagogastroduodenoscopy (EGD) Family History Father Prediabetes Grandfather (Paternal) Diabetes Mother Hypertension MVP (mitral valve prolapse) Social History Smoking Status: Former smoker Age Quit Using Tobacco: 39; packs per day: 1; Number of Years Since Quit: 4; Second Hand Exposure: No; Do You Dip or Chew Tobacco: No; Tobacco Cessation Education Requested by Patient: No Hx Alcohol Use: Yes Alcohol type: wine and hard liquor Alcohol type Comment: 1.5 pints of vodka. Hx Substance Use: No Preferred Language: Moldovan Communication Ability: Impaired Watch Assembly Inspector Required: No Beliefs That Will Affect Care: None marital status details: Single parent Current Living Situation: Other Current Living Situation Comment: Lives with 16 year old daughter current occupational status: unemployed Other Information That Helps Us Care for You: No Feels Safe at Home: Yes Safety Concerns: Feels Safe At This Time Childhood Exposure to Second-Hand Smoke: No Allergies Allergies Allergy/AdvReac Type Severity Reaction Status Date / Time theophylline AdvReac Unknown VERTIGO Verified 02/27/20 14:56 Home Meds Home Medications Medication Instructions Recorded Confirmed fluticasone propion-salmeterol 1 inh INHALATION QAM 02/27/19 02/27/20 [Advair Diskus] albuterol sulfate [Ventolin HFA] 2 puff INHALATION Q6H PRN 07/23/19 02/27/20 hydroxyzine HCl 10 mg PO Q8 PRN 07/23/19 02/27/20 Previous Rx's Medication Instructions Recorded folic acid 1 mg PO QAM #0 tab 02/04/20 multivitamin [Daily-Harris] 1 tab PO QAM #0 tab 07/27/19 thiamine HCl (vitamin B1) [Vitamin 100 mg PO QAM #0 tab 07/27/19 B-1] Lactobacillus acidoph-L.bulgar 1 tab PO TID #30 tab 12/21/19 [Lactinex] pantoprazole 40 mg PO QAM #30 tab 12/21/19 Results & Data (ED) Vital Signs Vital Signs - 24 hr 02/27/20 13:15 02/27/20 13:30 02/27/20 14:00 Temperature 36.8 C Temperature Source Oral Pulse Rate 114 H 105 H 109 H Pulse Rate from SpO2 Sensor 106 H Pulse Rhythm Regular Pulse Strength Normal Respiratory Rate 24 26 H 26 H Respiratory Effort / Characteristics Non-Labored Spontaneous Respiratory Depth Normal Respiratory Pattern Regular Blood Pressure 169/104 H 155/108 H 152/106 H Blood Pressure Mean 125 119 114 Blood Pressure Position Lying Pulse Oximetry 99 99 100 Oxygen Delivery Method Room Air Room Air Sepsis Recent Fever Within 48 Hours No Sepsis New/Unexplained Change in Mental Status No Sepsis Action Taken by Nursing No Action Required 02/27/20 14:30 02/27/20 15:18 Temperature Temperature Source Pulse Rate 102 H 98 H Pulse Rate from SpO2 Sensor 101 H 98 H Pulse Rhythm Pulse Strength Respiratory Rate 25 H 31 H Respiratory Effort / Characteristics Respiratory Depth Respiratory Pattern Blood Pressure 162/108 H 146/86 H Blood Pressure Mean 117 103 Blood Pressure Position Pulse Oximetry 100 100 Oxygen Delivery Method Sepsis Recent Fever Within 48 Hours Sepsis New/Unexplained Change in Mental Status Sepsis Action Taken by Retirement Medications Current Medication List: was personally reviewed by me Laboratory Data Attestation: I reviewed the patient's lab results. Result diagrams: 02/27/20 14:11 02/27/20 19:33 Lab Results 02/27/20 02/27/20 02/27/20 Range/Units 14:11 14:11 14:11 WBC 6.36 (4.8-10.8) K/uL RBC 3.30 L (4.2-5.4) M/uL Hgb 11.4 L (12.0-16.0) g/dL Hct 34.6 L (37-47) % MCV 104.8 H (80-100) fL MCH 34.5 H (25-34) pg MCHC 32.9 (32-36) g/dL RDW Std Deviation 58.1 H (36.4-46.3) fL RDW Coeff of Suzanne 15.0 H (11.5-14.5) % Plt Count 136 (130-400) K/uL MPV 11.7 H (7.4-10.4) fL Immature Gran % (Auto) 1.4 % Neut % (Auto) 73.1 % Lymph % (Auto) 8.2 % [place] % (Auto) 17.0 % Eos % (Auto) 0.0 % Baso % (Auto) 0.3 % Neut # (Auto) 4.65 (1.4-6.5) K/uL Lymph # (Auto) 0.52 L (1.2-3.4) K/uL [place] # (Auto) 1.08 H (0.11-0.59) K/uL Eos # (Auto) 0.00 (0-0.5) K/uL Baso # (Auto) 0.02 (0-0.2) K/uL Immature Gran # (Auto) 0.09 H (0.00-0.02) K/uL Absolute Nucleated RBC 0.02 H (0-0) K/uL Nucleated RBC % (auto) 0.3 % PT 12.4 H (9.0-12.0) Seconds INR 1.2 H (0.9-1.1) APTT 28.8 (21.0-31.0) Seconds PTT Ratio 1.0 Sodium 121 L (136-145) mmol/L Potassium 4.1 (3.5-5.1) mmol/L Chloride 79 L (98-107) mmol/L Carbon Dioxide 7 L* (21-32) mmol/L Anion Gap 35.0 H (3-11) BUN 142 H (7-18) mg/dl Creatinine 7.76 H* (0.6-1.2) mg/dl Est Cr Clr Drug Dosing 8.8 ml/min Est GFR ( Amer) 6.7 Est GFR (Non-Af Amer) 5.7 BUN/Creatinine Ratio 18.2 (10-20) Glucose 702 H* (70-99) mg/dl POC Glucose (70-99) mg/dl Lactate Calcium 9.6 (8.5-10.1) mg/dl Phosphorus (2.5-4.9) mg/dl Magnesium 3.5 H (1.8-2.4) mg/dl Total Bilirubin 2.2 H (0.2-1) mg/dl AST 143 H (15-37) U/L ALT 101 H (12-78) U/L Alkaline Phosphatase 138 H (45-117) U/L Total Creatine Kinase 375 H (26-192) U/L Troponin I < 0.015 (0-0.045) ng/ml Total Protein 7.5 (6.4-8.2) gm/dl Albumin 2.9 L (3.4-5.0) gm/dl Globulin 4.6 H (2.5-4.0) gm/dl Albumin/Globulin Ratio 0.6 L (0.9-2) Lipase 778 H (73-393) U/L Beta-Hydroxybutyric Acd 135.96 H (0.2-2.81) mg/dl TSH 0.884 (0.300-4.500) uIu/ml Ethyl Alcohol mg/dL (0-3) mg/dl 02/27/20 02/27/20 02/27/20 Range/Units 14:11 14:11 14:11 WBC (4.8-10.8) K/uL RBC (4.2-5.4) M/uL Hgb (12.0-16.0) g/dL Hct (37-47) % MCV (80-100) fL MCH (25-34) pg MCHC (32-36) g/dL RDW Std Deviation (36.4-46.3) fL RDW Coeff of Suzanne (11.5-14.5) % Plt Count (130-400) K/uL MPV (7.4-10.4) fL Immature Gran % (Auto) % Neut % (Auto) % Lymph % (Auto) % [place] % (Auto) % Eos % (Auto) % Baso % (Auto) % Neut # (Auto) (1.4-6.5) K/uL Lymph # (Auto) (1.2-3.4) K/uL [place] # (Auto) (0.11-0.59) K/uL Eos # (Auto) (0-0.5) K/uL Baso # (Auto) (0-0.2) K/uL Immature Gran # (Auto) (0.00-0.02) K/uL Absolute Nucleated RBC (0-0) K/uL Nucleated RBC % (auto) % PT (9.0-12.0) Seconds INR (0.9-1.1) APTT (21.0-31.0) Seconds PTT Ratio Sodium (136-145) mmol/L Potassium (3.5-5.1) mmol/L Chloride (98-107) mmol/L Carbon Dioxide (21-32) mmol/L Anion Gap (3-11) BUN (7-18) mg/dl Creatinine (0.6-1.2) mg/dl Est Cr Clr Drug Dosing ml/min Est GFR ( Amer) Est GFR (Non-Af Amer) BUN/Creatinine Ratio (10-20) Glucose (70-99) mg/dl POC Glucose (70-99) mg/dl Lactate Cancelled Calcium (8.5-10.1) mg/dl Phosphorus 3.6 (2.5-4.9) mg/dl Magnesium (1.8-2.4) mg/dl Total Bilirubin (0.2-1) mg/dl AST (15-37) U/L ALT (12-78) U/L Alkaline Phosphatase (45-117) U/L Total Creatine Kinase (26-192) U/L Troponin I (0-0.045) ng/ml Total Protein (6.4-8.2) gm/dl Albumin (3.4-5.0) gm/dl Globulin (2.5-4.0) gm/dl Albumin/Globulin Ratio (0.9-2) Lipase (73-393) U/L Beta-Hydroxybutyric Acd (0.2-2.81) mg/dl TSH (0.300-4.500) uIu/ml Ethyl Alcohol mg/dL < 3.0 (0-3) mg/dl 02/27/20 Range/Units 15:16 WBC (4.8-10.8) K/uL RBC (4.2-5.4) M/uL Hgb (12.0-16.0) g/dL Hct (37-47) % MCV (80-100) fL MCH (25-34) pg MCHC (32-36) g/dL RDW Std Deviation (36.4-46.3) fL RDW Coeff of Suzanne (11.5-14.5) % Plt Count (130-400) K/uL MPV (7.4-10.4) fL Immature Gran % (Auto) % Neut % (Auto) % Lymph % (Auto) % [place] % (Auto) % Eos % (Auto) % Baso % (Auto) % Neut # (Auto) (1.4-6.5) K/uL Lymph # (Auto) (1.2-3.4) K/uL [place] # (Auto) (0.11-0.59) K/uL Eos # (Auto) (0-0.5) K/uL Baso # (Auto) (0-0.2) K/uL Immature Gran # (Auto) (0.00-0.02) K/uL Absolute Nucleated RBC (0-0) K/uL Nucleated RBC % (auto) % PT (9.0-12.0) Seconds INR (0.9-1.1) APTT (21.0-31.0) Seconds PTT Ratio Sodium (136-145) mmol/L Potassium (3.5-5.1) mmol/L Chloride (98-107) mmol/L Carbon Dioxide (21-32) mmol/L Anion Gap (3-11) BUN (7-18) mg/dl Creatinine (0.6-1.2) mg/dl Est Cr Clr Drug Dosing ml/min Est GFR ( Amer) Est GFR (Non-Af Amer) BUN/Creatinine Ratio (10-20) Glucose (70-99) mg/dl POC Glucose > 600 H* (70-99) mg/dl Lactate Calcium (8.5-10.1) mg/dl Phosphorus (2.5-4.9) mg/dl Magnesium (1.8-2.4) mg/dl Total Bilirubin (0.2-1) mg/dl AST (15-37) U/L ALT (12-78) U/L Alkaline Phosphatase (45-117) U/L Total Creatine Kinase (26-192) U/L Troponin I (0-0.045) ng/ml Total Protein (6.4-8.2) gm/dl Albumin (3.4-5.0) gm/dl Globulin (2.5-4.0) gm/dl Albumin/Globulin Ratio (0.9-2) Lipase (73-393) U/L Beta-Hydroxybutyric Acd (0.2-2.81) mg/dl TSH (0.300-4.500) uIu/ml Ethyl Alcohol mg/dL (0-3) mg/dl Administered Medications Insulin Human Regular 250 (units/ Sodium Chloride) 250 mls @ 0 mls/hr IV .Q0M ARMANI; Protocol Stop: 03/28/20 15:14 Last Titration: 02/27/20 19:21 Dose: 0 units/hr, 0 mls/hr Documented by: [id number] Cosigned by: [id number] Titration: 02/27/20 18:55 Dose: 7.2 units/hr, 7.2 mls/hr Documented by: [id number] Cosigned by: [id number] Titration: 02/27/20 18:15 Dose: 7.2 units/hr, 7.2 mls/hr Documented by: [id number] Cosigned by: [id number] Titration: 02/27/20 17:01 Dose: 9 units/hr, 9 mls/hr Documented by: [id number] Cosigned by: [id number] Admin: 02/27/20 15:50 Dose: 7.5 units/hr, 7.5 mls/hr Documented by: [id number] Cosigned by: [id number] Pantoprazole Sodium 40 mg/ (Dextrose) 100 mls @ 20 mls/hr IV Q5H ARMANI Stop: 03/28/20 17:29 Last Admin: 02/27/20 18:20 Dose: 8 mg/hr, 20 mls/hr Documented by: [id number] Discontinued Medications Sodium Chloride (Nss) 500 mls @ 999 mls/hr IV .Q31M ARMANI Stop: 02/27/20 14:30 Last Infusion: 02/27/20 15:59 Dose: 0 mls/hr Documented by: [id number] Admin: 02/27/20 15:23 Dose: 999 mls/hr Documented by: [id number] Lorazepam (Ativan) 1 mg in 2 mls @ 2 mls/min IV NOW STA Stop: 02/27/20 13:54 Last Admin: 02/27/20 15:18 Dose: 2 mls/min Documented by: [id number] Pantoprazole Sodium 80 mg/ (Dextrose) 100 mls @ 400 mls/hr IV ONE STA Stop: 02/27/20 14:07 Last Infusion: 02/27/20 15:38 Dose: 0 mls/hr Documented by: [id number] Admin: 02/27/20 15:22 Dose: 400 mls/hr Documented by: [id number] Multivitamins 10 ml/ Thiamine HCl 100 mg/ Folic Acid 1 mg/Sodium Chloride 1,011.2 mls @ 1,011.2 mls/hr IV .Q1H ONE Stop: 02/27/20 14:52 Last Infusion: 02/27/20 15:38 Dose: 0 mls/hr Documented by: [id number] Admin: 02/27/20 14:28 Dose: 1,011.2 mls/hr Documented by: [id number] Insulin Human Regular (Novolin-R Bolus From Bag) 7 units IV ONE ONE Stop: 02/27/20 15:16 Last Admin: 02/27/20 15:51 Dose: 7 units Documented by: [id number] Cosigned by: [id number] Imaging Data Radiologist's Impression: ABDOMEN AND PELVIS CT WITHOUT CONTRAST CT DOSE: 571.94 mGy.cm HISTORY: Acute generalized abdominal pain with possible small bowel obstruction. poss obstruc TECHNIQUE: Multiaxial CT images of the abdomen and pelvis were performed without contrast. A dose lowering technique was utilized adhering to the principles of ALARA. COMPARISON STUDY: CT abdomen and pelvis 12/14/2019. FINDINGS: Right middle lobe and lingular opacities favor atelectasis. No pneumatosis or pneumoperitoneum. Motion degraded exam. Unremarkable spleen and adrenal glands. Hepatomegaly with hepatic steatosis. Increased density of the gallbladder may reflect sludge. Patency of the hepatic and portal veins. There is moderate interstitial and peripancreatic edema/fluid which tracks along the left pericolic gutter. No peripancreatic fluid collection, pancreatic or biliary ductal dilation. 2 mm nonobstructing calculus of the interpolar left kidney. No ureteral calculi or obstructive uropathy. Unremarkable urinary bladder and uterus. Aorta is unremarkable. No adenopathy. Fluid distended distal esophagus with mild wall thickening and periesophageal stranding. Mild wall thickening of the duodenum, likely reactive. No bowel obstruction. Noninflamed appendix. Soft tissues are unremarkable. The bones appear intact. IMPRESSION: 1. Findings compatible with acute pancreatitis. No peripancreatic fluid collection. 2. No biliary or pancreatic ductal dilation. 3. Hepatomegaly with hepatic steatosis. 4. Distended mildly hyperdense gallbladder may reflect intraluminal sludge. 5. No bowel obstruction or bowel wall thickening. Normal appendix. 6. Nonobstructing left nephrolithiasis. XR chest 1V portable HISTORY: 44 years-old Female weakness acute weakness COMPARISON: CT abdomen and pelvis of same day, chest radiograph 12/16/2019 TECHNIQUE: Portable AP view of the chest FINDINGS: Mild linear subsegmental bibasilar atelectasis. Cardiomediastinal and hilar silhouettes are within normal limits. No pneumothorax, pleural effusion, airspace consolidation or overt pulmonary edema. Bones appear grossly intact. IMPRESSION: No acute process. Blood Pressure Blood Pressure Findings: Elevated blood pressure Blood Pressure Disposition: further management by hospitalist Discharge Plan Visit Data Chief Complaint: Alcohol Intoxication ED Provider: Randell Shetty Discharge Problem: Weakness, Acute pancreatitis, REG (acute kidney injury), DKA (diabetic ketoacidoses), Coffee ground emesis Patient Disposition: Admitted As Inpatient Condition: Serious Discharge Instructions Interventions: ED Discharge Assessment Last Done: 02/27/20 17:06 Discharge Problem: Acute pancreatitis Qualifiers: Pancreatitis type: alcohol induced Acute pancreatitis complication: unspecified Qualified Code(s): K85.20 - Alcohol induced acute pancreatitis without necrosis or infection DKA (diabetic ketoacidoses) Qualifiers: Diabetes mellitus type: type 1 Diabetes mellitus complication detail: without coma Qualified Code(s): E10.10 - Type 1 diabetes mellitus with ketoacidosis wit hout coma
[2020-02-27] MEDS ORDERED: SODIUM CHLORIDE 0.9% 500 ML IV SCH (14:00)
[2020-02-27 14:32] LABS: Basophils # (auto) 0.02 K/uL (0-0.2); Basophils % (auto) 0.3 %; Hematocrit (blood only) 34.6 % (37-47); Hemoglobin 11.4 g/dL (12.0-16.0); Immature Granulocytes # (auto) 0.09 K/uL (0.00-0.02); Immature Granulocytes % (auto) 1.4 %; Lymphocytes # (auto) 0.52 K/uL (1.2-3.4); Lymphocytes % (auto) 8.2 %; Mean Corpuscular Hemoglobin 34.5 pg (25-34); Mean Corpuscular Hgb Conc 32.9 g/dL (32-36); Mean Corpuscular Volume 104.8 fL (80-100); Mean Platelet Volume 11.7 fL (7.4-10.4); Monocytes # (auto) 1.08 K/uL (0.11-0.59); Neutrophils # (auto) 4.65 K/uL (1.4-6.5); Neutrophils % (auto) 73.1 %; Nucleated RBC # (auto) 0.02 K/uL (0-0); Nucleated RBC % (auto) 0.3 %; Platelet Count 136 K/uL (130-400); RDW Standard Deviation 58.1 fL (36.4-46.3); White Blood Count 6.36 K/uL (4.8-10.8)
[2020-02-27 14:44] LABS: INR 1.2 (0.9-1.1); Partial Thromboplastin Time 28.8 Seconds (21.0-31.0); Prothrombin Time 12.4 Seconds (9.0-12.0)
[2020-02-27 15:07] LABS: Alanine Aminotransferase 101 U/L (12-78); Albumin Globulin Ratio 0.6 (0.9-2); Albumin Level 2.9 gm/dl (3.4-5.0); Alkaline Phosphatase 138 U/L (45-117); Aspartate Aminotransferase 143 U/L (15-37); BUN Creatinine Ratio 18.2 (10-20); Bilirubin,Total 2.2 mg/dl (0.2-1); Blood Urea Nitrogen 142 mg/dl (7-18); Calcium 9.6 mg/dl (8.5-10.1); Carbon Dioxide 7 mmol/L (21-32); Chloride 79 mmol/L (98-107); Creatine Kinase 375 U/L (26-192); Creatinine Clr Calc Pharmacy 8.8 ml/min; Est GFR (African American) 6.7; Est GFR (Non-African American) 5.7; Globulin 4.6 gm/dl (2.5-4.0); Glucose 702 mg/dl (70-99); Lipase 778 U/L (73-393); Magnesium 3.5 mg/dl (1.8-2.4); Potassium 4.1 mmol/L (3.5-5.1); Sodium 121 mmol/L (136-145); Thyroid Stimulating Hormone 0.884 uIu/ml (0.300-4.500); Total Protein 7.5 gm/dl (6.4-8.2); Troponin I < 0.015 ng/ml (0-0.045)
[2020-02-27] MEDS ORDERED: NovoLIN-R BOLUS FROM BAG IV ONE (15:15)
[2020-02-27] MEDS ORDERED: DEXTROSE 50% 50 ML SYRINGE IV PRN (15:15)
[2020-02-27] MEDS ORDERED: GLUCOSE 10 TABS/TUBE PO PRN (15:15)
[2020-02-27] MEDS ORDERED: GLUCOSE 40% GEL 15 GM TUBE PO PRN (15:15)
[2020-02-27] MEDS ORDERED: CARBOHYDRATES FOR HYPOGLYCEMIA PO PRN (15:15)
[2020-02-27] MEDS ORDERED: GLUCAGON FOR INJ 1 MG VIAL IM PRN (15:15)
--- NOTE | 2020-02-27 15:24 | CT Scan Report ---
ABDOMEN AND PELVIS CT WITHOUT CONTRAST CT DOSE: 571.94 mGy.cm HISTORY: Acute generalized abdominal pain with possible small bowel obstruction. poss obstruc TECHNIQUE: Multiaxial CT images of the abdomen and pelvis were performed without contrast. A dose lo wering technique was utilized adhering to the principles of ALARA. COMPARISON STUDY: CT abdomen and pelvis 12/14/2019. FINDINGS: Right middle lobe and lingular opacities favor atelectasis. No pneumatosis or pneumoperiton eum. Motion degraded exam. Unremarkable spleen and adrenal glands. Hepatomegaly with hepatic steatosi s. Increased density of the gallbladder may reflect sludge. Patency of the hepatic and portal veins. There is moderate interstitial and peripancreatic edema/fluid which tracks along the left pericolic g utter. No peripancreatic fluid collection, pancreatic or biliary ductal dilation. 2 mm nonobstructing calculus of the interpolar left kidney. No ureteral calculi or obstructive uropat hy. Unremarkable urinary bladder and uterus. Aorta is unremarkable. No adenopathy. Fluid distended distal esophagus with mild wall thickening and periesophageal stranding. Mild wall th ickening of the duodenum, likely reactive. No bowel obstruction. Noninflamed appendix. Soft tissues a re unremarkable. The bones appear intact. IMPRESSION: 1. Findings compatible with acute pancreatitis. No peripancreatic fluid collection. 2. No biliary or pancreatic ductal dilation. 3. Hepatomegaly with hepatic steatosis. 4. Distended mildly hyperdense gallbladder may reflect intraluminal sludge. 5. No bowel obstruction or bowel wall thickening. Normal appendix. 6. Nonobstructing left nephrolithiasis. ACT 112: Negative or not required by law. The above report was generated using voice recognition software. It may contain grammatical, syntax o r spelling errors. Electronically signed by: Guero Carney M.D. 02/27/2020 3:22 PM
--- NOTE | 2020-02-27 15:30 | XRay Report ---
XR chest 1V portable HISTORY: 44 years-old Female weakness acute weakness COMPARISON: CT abdomen and pelvis of same day, chest radiograph 12/16/2019 TECHNIQUE: Portable AP view of the chest FINDINGS: Mild linear subsegmental bibasilar atelectasis. Cardiomediastinal and hilar silhouettes are within no rmal limits. No pneumothorax, pleural effusion, airspace consolidation or overt pulmonary edema. Bone s appear grossly intact. IMPRESSION: No acute process. ACT 112: Negative or not required by law. The above report was generated using voice recognition software. It may contain grammatical, syntax o r spelling errors. Electronically signed by: Guero Carney M.D. 02/27/2020 3:29 PM
[2020-02-27 15:40] LABS: Beta-Hydroxybutyrate 135.96 mg/dl (0.2-2.81)
[2020-02-27] MEDS: INSULIN REGULAR 250 UNITS in SODIUM CHLORIDE 0.9% 247.5 ML IV SCH (15:50)
[2020-02-27 16:37] LABS: Base Excess ABG -18.2 mEq/L (-9-1.8); HCO3 ABG 7 mmol/L (19-24); Oxygen Saturation ABG 98.3 % (90-95); PCO2 ABG 16 mmHg (35-46); PO2 ABG 120 mmHg (80-95); pH ABG 7.25 (7.35-7.45)
[2020-02-27 16:41] LABS: Allen Test POS (Pos)
--- NOTE | 2020-02-27 17:21 | History & Physical Report ---
Date of Service February 27, 2020 Assessment & Plan (1) Acidosis, metabolic: DKA Pt is 44 y/o F with PMH alcohol abuse, alcohol withdrawal, asthma, MDD, panic disorder, pancreatitis who presents to ED with c/o AMS. Pt reports last drink was 3 days ago.Today found in her bed, reported been in bed for couple of days and not eating or drinking. Patient has been in bed for the past several days and not eating or drinking. In ER pt found to be tachycardic, tachypneic. Abnormal labs include ABG: pH: 7.25, PCO2: 16, PO2: 120, HCO3: 7; corrected NA: 131 for glucose: 702K: 4.1, CO2: 7, A, BUN: 142, CR: 7.7, GFR: 5.7. Beta hydroxybutyric acid: 135 negative EtOH level. Pending lactate In ER given 500 mL NSS, banana bag, insulin drip Obtain UA Blood cultures pending Monitor BMP, magnesium, phosphorus levels Pt to ICU. Dr Quarles aware See community life director note for further assessment and plan (2) Metabolic encephalopathy: Secondary to acidosis Monitor (3) REG (acute kidney injury): BUN: 142, CR: 7.7, GFR: 5.7. Baseline Cr: 0.8 with no h/o CKD. K: 4.1. Corrected Na: 131. Treat DKA as above Monitor renal functions, avoid nephrotoxic agents when possible Consult nephrology. Dr. Burrell aware. Suspect REG will improve with treatment of DKA (4) Vomiting: EMS reported possible coffee-ground like emesis on patient's bed sheets. In ER given Protonix 80 mg IV Start Protonix drip GI consult (5) Alcohol abuse: History of alcohol abuse. Patient reports last drink 3 days ago. Today EtOH level nondetectable In ER given banana bag, Ativan 1 mg IV Monitor for alcohol withdrawal Further plan per ICU (6) Elevated LFTs: History elevated LFTS in past AST 143, ALT 101, alk phos 138, total bilirubin 2.2 Probable secondary to ETOH use Monitor Disposition ICU Full Code as per discussion with pt Follows with Camila Joyner PA-C for routine care Pt was seen and care coordinated with Dr Novoa. See addendum Admission and Anticipated Discharge Date Admission Date: February 27, 2020 History of Present Illness Chief Complaint: Altered mental status Primary Care Provider: Camila Joyner PA-C Pt is 44 y/o F with PMH alcohol abuse, alcohol withdrawal, asthma, MDD, panic disorder, pancreatitis who presents to ED with c/o AMS. Partial history obtained from patient, remaining history obtained from ER provider and prior records. It is reported patient was found in her bed today by her parents. It is reported parents that patient was intoxicated. Patient states was drinking vodka, she reports last drink was 3 days ago. She does not say how much she has been drinking recently. Reports since last drink she felt shaky and felt like she was going through withdrawal. Patient has been in bed for the past several days and not eating or drinking. She complains of being thirsty. ER provider reports that EMS noted coffee-ground like emesis on patient's bed sheets. Patient complains of feeling weak. Denies any complaints of shortness of breath, chest pain, headache or other pain. Pt is alert, oriented to person, place. Is delayed with responses. In ER pt found to be tachycardic, tachypneic. Abnormal labs include ABG: pH: 7.25, PCO2: 16, PO2: 120, HCO3: 7; corrected NA: 131 for glucose: 702K: 4.1, CO2: 7, A, BUN: 142, CR: 7.7, GFR: 5.7. Beta hydroxybutyric acid: 135 negative EtOH level. Allergies Allergy/AdvReac Type Severity Reaction Status Date / Time theophylline AdvReac Unknown VERTIGO Verified 02/27/20 14:56 Home Medications Home Medications Medication Instructions Recorded Confirmed Type fluticasone propion-salmeterol 1 inh INHALATION QAM 02/27/19 02/27/20 History [Advair Diskus] albuterol sulfate [Ventolin HFA] 2 puff INHALATION Q6H PRN 07/23/19 02/27/20 History hydroxyzine HCl 10 mg PO Q8 PRN 07/23/19 02/27/20 History folic acid 1 mg PO QAM #0 tab 07/27/19 02/27/20 Rx multivitamin [Daily-Harris] 1 tab PO QAM #0 tab 07/27/19 02/27/20 Rx thiamine HCl (vitamin B1) [Vitamin 100 mg PO QAM #0 tab 07/27/19 02/27/20 Rx B-1] Lactobacillus acidoph-L.bulgar 1 tab PO TID #30 tab 12/21/19 02/27/20 Rx [Lactinex] pantoprazole 40 mg PO QAM #30 tab 12/21/19 02/27/20 Rx Past Med/Surg History Medical History Alcohol abuse Anxiety Asthma Surgical History History of dental surgery History of esophagogastroduodenoscopy (EGD) Family History Father Prediabetes Grandfather (Paternal) Diabetes Mother Hypertension MVP (mitral valve prolapse) Social History Smoking Status: Former smoker Age Quit Using Tobacco: 39; packs per day: 1; Number of Years Since Quit: 4; Second Hand Exposure: No; Hx Alcohol Use: Yes Alcohol type: wine and hard liquor Alcohol type Comment: 1.5 pints of vodka. Hx Substance Use: No Preferred Language: Citizen Of [place] Communication Ability: Effective Job Molder Required: No Beliefs That Will Affect Care: None marital status details: Single parent Current Living Situation: Family Current Living Situation Comment: with daughter- 16 years old current occupational status: unemployed Feels Safe at Home: Yes Childhood Exposure to Second-Hand Smoke: No Review of Systems Review of Systems: Unobtainable due to cognitive status Physical Exam Physical Exam: General: mild distress, obese Head: normocephalic, atraumatic Eyes: PERRL, EOM's intact, conjunctiva non-injected, anicteric ENT: normal inspection external ears, nose, mucous membranes dry Neck: supple, trachea midline Lungs: RR: 30, no accessory muscle use, lungs clear, no wheezing/rhonchi/rales CV: regular rhythm, tachycardia rate 116, no pretibial edema Abd: normal BS, soft, non-tender Ext: no cyanosis, no calf tenderness Neuro: Alert, oriented to person, place. Is slow with responses. Is following commands, no focal deficits noted Skin: warm, dry Results & Data Results & Data ([facility]) Vital Signs (Past 12 Hours) Vital Signs Temp Pulse Resp BP Pulse Ox 02/27/20 16:30 122 H 34 H 166/110 H 100 02/27/20 16:15 117 H 32 H 164/115 H 100 02/27/20 16:00 110 H 32 H 176/135 H 100 02/27/20 15:52 103 H 28 H 158/110 H 100 02/27/20 15:18 98 H 31 H 146/86 H 100 02/27/20 14:30 102 H 25 H 162/108 H 100 02/27/20 14:00 109 H 26 H 152/106 H 100 02/27/20 13:30 105 H 26 H 155/108 H 99 02/27/20 13:15 36.8 C 114 H 24 169/104 H 99 Laboratory Results Short CBC 02/27/20 Range/Units 14:11 WBC 6.36 (4.8-10.8) K/uL Hgb 11.4 L (12.0-16.0) g/dL Hct 34.6 L (37-47) % Plt Count 136 (130-400) K/uL BMP 02/27/20 14:11 Sodium 121 L Potassium 4.1 Chloride 79 L Carbon Dioxide 7 L* BUN 142 H Creatinine 7.76 H* Glucose 702 H* Calcium 9.6 Cardiac Enzymes 02/27/20 Range/Units 14:11 Total Creatine Kinase 375 H (26-192) U/L Troponin I < 0.015 (0-0.045) ng/ml Liver Function 02/27/20 Range/Units 14:11 Total Bilirubin 2.2 H (0.2-1) mg/dl AST 143 H (15-37) U/L ALT 101 H (12-78) U/L Alkaline Phosphatase 138 H (45-117) U/L Albumin 2.9 L (3.4-5.0) gm/dl Diagnostic Findings CXR: IMPRESSION: No acute process. CT ABD/PELVIS: IMPRESSION: 1. Findings compatible with acute pancreatitis. No peripancreatic fluid collection. 2. No biliary or pancreatic ductal dilation. 3. Hepatomegaly with hepatic steatosis. 4. Distended mildly hyperdense gallbladder may reflect intraluminal sludge. 5. No bowel obstruction or bowel wall thickening. Normal appendix. 6. Nonobstructing left nephrolithiasis. Supervising Physician Co-Signing Physician Notes I, Dr. Shakir Novoa, have seen and examined the patient Marcus Avelar with physician pediatric physician assistant On exam General: speaking in full sentences but somewhat lethargic and poor historian Lungs: patient able to sit up on her own power when asked for posterior auscultation and the lungs sound clear Heart: tachycardia Abdomen: soft, nontender, positive bowel sounds Extremities: moves all extremities -main issue is that patient found at home by family members and patient reporting history of drinking alcohol and alcohol withdrawal. Patients lab noted for ketoacidosis with elevated blood sugars. Patient has no known history of diabetes. So acidosis could be from alcohol ketoacidosis or starvation ketoacidosis. Given history of alcohol use and pancreatitis in the past it would not be surprising if patient had developed diabetes mellitus type 2 over time. The treatment regardless of classification will be IV fluids and insulin for the metabolic acidosis. Follow the renal function and liver function enzymes and monitor the acute metabolic encephalopathy in an ICU setting -ICU physician and ICU team is consulted for patient to be admitted from ED to continue the treatment -agree with other assessment and plans as documented by physician pediatric physician assistant My colleague hospitalist will be following the patient starting on 02/28/2020, appreciate the assistance of the ICU physician and ICU team
[2020-02-27] MEDS ORDERED: ICU PROTOCOL FOR HYPERGLYCEMIA PRN (17:23)
[2020-02-27 17:46] LABS: Appearance Urine Cloudy (Clear); Bacteria Urine Automated Negative (Negative); Blood Urine 3+ (Negative); Color Urine Dark Yellow; Epithelial Cell Urine Auto >30 /lpf (0-5); Glucose Urine UA 3+ (Negative); Ketones Urine 2+ (Negative); Leukocyte Esterase Urine Trace (Negative); Nitrite Urine Negative (Negative); Protein Urine 2+ (Negative); Specific Gravity Urine 1.021 (1.000-1.030); Urobilinogen Urine Negative (Negative)
[2020-02-27 17:50] LABS: Bilirubin Urine Negative (Negative); Ictotest Urine Negative (Negative)
[2020-02-27 18:02] LABS: Renal Epithelial Cells Urine 0-5 /lpf (0-5)
[2020-02-27 18:06] LABS: Amphetamines+Metham, Urine Neg (Neg); Barbiturates, Urine Neg (Neg); Benzodiazepine, Urine Neg (Neg); Cocaine, Urine Neg (Neg); MDMA (Ecstacy), Urine Neg (Neg); Methadone, Urine Neg (Neg); Opiate, Urine Neg (Neg); Phencyclidine, Urine Neg (Neg)
[2020-02-27] MEDS: PANTOprazole 40 MG in DEXTROSE 5% 100 ML IV SCH ×2 (18:20→22:20)
[2020-02-27] MEDS ORDERED: PNEUMOCOCCAL ADMINISTRATION CHARGE ONE (18:25)
[2020-02-27] MEDS ORDERED: PNEUMOCOCCAL POLYSACCHARIDES 25 MCG/0.5 ML VIAL/SYR IM ONE (18:25)
[2020-02-27] MEDS ORDERED: INSULIN REGULAR 250 UNITS in SODIUM CHLORIDE 0.9% 247.5 ML IV SCH (19:15)
[2020-02-27] MEDS ORDERED: PENDING D5 1/2NS+20mEq KCL IVF SCH (19:30)
[2020-02-27] MEDS ORDERED: NORMOSOL-R 1,000 ML IV SCH (19:30)
--- NOTE | 2020-02-27 19:37 | Gastrointestinal Consultation ---
Date of Consultation February 27, 2020 Assessment & Plan (1) Elevated LFTs: (2) Vomiting: (3) Acute pancreatitis: (4) Alcohol withdrawal: elevated LFTs/alcohol withdrawal: needs strict alcohol cessation going forward, woudl benefit from alcohol rehab program. treatment of alcohol withdraw tamika prince protocol, as per primary team acute pancreatitis/vomiting: recurrent, 2/2 ETOH abuse Recs: NPO aggressive IV hydration 250 cc/hr of Lactated ringers for the pancreatitis for the first 24 hours at least once symptoms improve, can begin to advance diet starting with a low residue diet tamika protocol/treatment for ETOH withdrawal thiamine and folate daily hgb stable at this time, coffee ground emesis is likely bilious. will monitor for now given unremarkable EGD in july 2019 as well. Thank you for allowing me to participate in the care of this patient. History of Present Illness Attending Physician: Shakir Novoa MD 44 y/o F with PMH alcohol abuse, alcohol withdrawal, asthma, MDD, panic disorder, pancreatitis who presents to ED with AMS. Patient was found in bed today by her parents and was reportedly intoxicated, she states her last drink was 4 days ago. EMS found coffee ground emesis on her bed sheets today. She notes feeling weak and is somnolent. Otherwise no significant complaints. Prior EGD without any bleeding etiologies, was done in 07/2019. CT A/P today shows findings c/w acute pancreatitis, no biliary dilation. labs reviewed, noted to be acidemic and in acute kidney failure, hgb stable, unchanged from prior baseline. Allergies Allergy/AdvReac Type Severity Reaction Status Date / Time theophylline AdvReac Unknown VERTIGO Verified 02/27/20 14:56 Home Medications Home Medications Medication Instructions Recorded Confirmed Type fluticasone propion-salmeterol 1 inh INHALATION QAM 02/27/19 02/27/20 History [Advair Diskus] albuterol sulfate [Ventolin HFA] 2 puff INHALATION Q6H PRN 07/23/19 02/27/20 History hydroxyzine HCl 10 mg PO Q8 PRN 07/23/19 02/27/20 History folic acid 1 mg PO QAM #0 tab 07/27/19 02/27/20 Rx multivitamin [Daily-Harris] 1 tab PO QAM #0 tab 07/27/19 02/27/20 Rx thiamine HCl (vitamin B1) [Vitamin 100 mg PO QAM #0 tab 07/27/19 02/27/20 Rx B-1] Lactobacillus acidoph-L.bulgar 1 tab PO TID #30 tab 12/21/19 02/27/20 Rx [Lactinex] pantoprazole 40 mg PO QAM #30 tab 12/21/19 02/27/20 Rx Patient History Medical History Alcohol abuse Anxiety Asthma Surgical History History of dental surgery History of esophagogastroduodenoscopy (EGD) Family History Father Prediabetes Grandfather (Paternal) Diabetes Mother Hypertension MVP (mitral valve prolapse) Social History Smoking Status: Former smoker Age Quit Using Tobacco: 39; packs per day: 1; Number of Years Since Quit: 4; Second Hand Exposure: No; Do You Dip or Chew Tobacco: No; Tobacco Cessation Education Requested by Patient: No Hx Alcohol Use: Yes Alcohol type: wine and hard liquor Alcohol type Comment: 1.5 pints of vodka. Hx Substance Use: No Preferred Language: Macedonian Communication Ability: Impaired Portuguese Tutor Required: No Beliefs That Will Affect Care: None marital status details: Single parent Current Living Situation: Other Current Living Situation Comment: Lives with 16 year old daughter current occupational status: unemployed Other Information That Helps Us Care for You: No Feels Safe at Home: Yes Safety Concerns: Feels Safe At This Time Childhood Exposure to Second-Hand Smoke: No Review of Systems Constitutional: no fever, no chills and no weight loss Eyes: as per Subjective / HPI Ear, Nose, Mouth, Throat: as per Subjective / HPI Respiratory: no dyspnea and no dyspnea on exertion Cardiovascular: no chest pain and no palpitations Gastrointestinal: as per Subjective / HPI Musculoskeletal: no joint pain and no swelling Integumentary: no rash and no lesions Neurologic: no numbness and no paresthesia Psychiatric: no depression and no anxiety Endocrine: no fatigue Hematologic / Lymphatic: no easy bleeding and no easy bruising Physical Exam Constitutional: WD/WN, vitals as above Eyes: EOM intact bilaterally Neck: normal visual inspection Respiratory: normal respiratory effort, lungs clear to auscultation Cardiovascular: RRR, no murmur, no edema Gastrointestinal (Abdomen): Inspection/Auscultation: abdomen normal to inspection; abdomen not distended Percussion/Palpation: abdomen soft; abdomen nontender and no hepatosplenomegaly Musculoskeletal: Extremities: no cyanosis Gait: normal gait Skin: no rashes, warm and dry Neurologic: moves all extremities Psychiatric: A+Ox3, euthymic affect Results & Data ([facility]) Vital Signs (Past 12 Hours) Vital Signs Temp Pulse Pulse Resp BP BP Pulse Ox 02/27/20 17:35 37.1 C 120 H 32 H 153/90 H 99 02/27/20 16:30 122 H 34 H 166/110 H 100 02/27/20 16:15 117 H 32 H 164/115 H 100 02/27/20 16:00 110 H 32 H 176/135 H 100 02/27/20 15:52 103 H 28 H 158/110 H 02/27/20 15:18 98 H 31 H 146/86 H 100 02/27/20 14:30 102 H 25 H 162/108 H 100 02/27/20 14:00 109 H 26 H 152/106 H 100 02/27/20 13:30 105 H 26 H 155/108 H 99 02/27/20 13:15 36.8 C 114 H 24 169/104 H 99 PG Care Time/CCT Total # of Minutes Spent Total Time Spent with Patient: Total time spent is greater than 50% in coordination of care (as documented) at patient's floor/unit and/or counseling patient: Coding Level of Care Code 12015 Inpt Consult Level 4 Diagnoses Elevated LFTs R79.89 Vomiting R11.10 Acute pancreatitis K85.90 Alcohol withdrawal F10.239
[2020-02-27 20:15] LABS: BUN Creatinine Ratio 19.3 (10-20); Calcium 10.1 mg/dl (8.5-10.1); Creatinine Clr Calc Pharmacy 9.7 ml/min; Est GFR (African American) 7.1; Est GFR (Non-African American) 6.2; Magnesium 3.3 mg/dl (1.8-2.4); Potassium 3.6 mmol/L (3.5-5.1)
[2020-02-27 20:17] LABS: Phosphorus 1.9 mg/dl (2.5-4.9)
[2020-02-27] MEDS ORDERED: NORMOSOL-R 500 ML IV ONE (20:26)
--- NOTE | 2020-02-27 21:12 | Procedure Note ---
Procedure Note Date of Service February 27, 2020 Procedure: Care Home Indwelling Peripherally Inserted IV Catheter Placement Attending: Dr. Quarles APC: Michel Hayward PA-C Indication: Need for IV Access, Poor Vascular Access Anesthesia: None Verbal consent was obtained from patient prior to performing the procedure. A time-out was completed verifying correct patient, procedure, site, positioning, and implant(s) or special equipment if applicable. Utilizing bedside ultrasound, vascularity of the RIGHT upper extremity was assessed. Vessel size was noted for appropriate catheter selection and skin was marked with gentle pressure. Patients RIGHT upper extremity was prepped and draped in the usual sterile fashion utilizing chlorhexidine. Ultrasound guidance was used to aid needle placement. An 18 g Endurance Catheter was introduced into the RIGHT Cephalic vein under direct ultrasound guidance. Guide wire was easily deployed without resistance. Catheter was threaded over the guide wire without resistance and the entire apparatus was removed intact. Good venous blood return was noted in the catheter. The IV catheter was easily flushed with sterile saline flush. Sterile clave was attached to the end of the catheter and good blood return was again noted. Tourniquet was released. StatLock device and sterile dressing were applied. The patient tolerated the procedure well. Blood Loss: Minimal Complications: None Procedural Ultrasound Guidance: Procedure Date: 02/27/2020 Indication: Poor Vascular Access Attending: Dr. Quarles APC: Michel Hayward PA-C Artery/Veins Identified: YES Access confirmed in Vein with ultrasound: YES Complications: NONE Patient tolerated procedure: WELL Coding CPT Codes Tubes, Drains, and Vasc Access - Tubes, Drains, and Vasc Access: [id number] Venipuncture, Age 3/>Req phys skill, (sep proc), Dx/Tx (not rtn) ([id number]) [facility] [place] Codes (Charges) Tubes, Drains, and Vasc Access Procedure 1: Tubes, Drains, and Vasc Access: [id number] Venipuncture, Age 3/>Req phys skill, (sep proc), Dx/Tx (not rtn)
[2020-02-27] MEDS: D5W AND 1/2NSS + 20MEQ KCL 20 MEQ/1,000 ML BAG IV SCH (21:37)
[2020-02-27] MEDS: PENDING 1/2NSS+20mEq KCL IVF SCH (21:46)
[2020-02-27] MEDS: INSULIN ASPART 100 UNITS/ML 3 ML PEN SC SCH (21:47)
[2020-02-28] LABS: BUN Creatinine Ratio 20.2 (10-20); Calcium 8.9 mg/dl (8.5-10.1); Creatinine Clr Calc Pharmacy 10.1 ml/min; Est GFR (African American) 7.5; Est GFR (Non-African American) 6.5; Magnesium 2.9 mg/dl (1.8-2.4); Phosphorus 1.7 mg/dl (2.5-4.9); Potassium 3.8 mmol/L (3.5-5.1)
[2020-02-28] MEDS: PENDING 1/2NSS+20mEq KCL IVF SCH ×8 (00:05→13:37)
[2020-02-28] MEDS: D5W AND 1/2NSS + 20MEQ KCL 20 MEQ/1,000 ML BAG IV SCH ×3 (01:37→09:01)
[2020-02-28] MEDS: PANTOprazole 40 MG in DEXTROSE 5% 100 ML IV SCH ×5 (04:00→23:30)
[2020-02-28 04:33] LABS: Albumin Level 2.4 gm/dl (3.4-5.0); BUN Creatinine Ratio 20.8 (10-20); Bilirubin,Total 1.3 mg/dl (0.2-1); Calcium 8.8 mg/dl (8.5-10.1); Creatinine Clr Calc Pharmacy 10.5 ml/min; Est GFR (African American) 7.9; Est GFR (Non-African American) 6.8; Magnesium 2.7 mg/dl (1.8-2.4); Phosphorus 0.8 mg/dl (2.5-4.9); Total Protein 5.8 gm/dl (6.4-8.2)
[2020-02-28 04:40] LABS: Hematocrit (blood only) 25.7 % (37-47); Hemoglobin 9.1 g/dL (12.0-16.0); Mean Corpuscular Hemoglobin 34.5 pg (25-34); Mean Corpuscular Hgb Conc 35.4 g/dL (32-36); Mean Corpuscular Volume 97.3 fL (80-100); Mean Platelet Volume 10.9 fL (7.4-10.4); Platelet Count 104 K/uL (130-400); RDW Coefficient of Variation 15.6 % (11.5-14.5); RDW Standard Deviation 55.6 fL (36.4-46.3); Red Blood Count 2.64 M/uL (4.2-5.4)
[2020-02-28 04:55] LABS: Potassium 3.2 mmol/L (3.5-5.1)
[2020-02-28] MEDS ORDERED: POTASSIUM PHOS 3 MMOL/1 ML INFUSION IV STA (05:02)
[2020-02-28 05:07] LABS: Basophils # (auto) 0.01 K/uL (0-0.2); Basophils % (auto) 0.2 %; Eosinophils # (auto) 0.01 K/uL (0-0.5); Eosinophils % (auto) 0.2 %; Immature Granulocytes # (auto) 0.05 K/uL (0.00-0.02); Lymphocytes # (auto) 0.59 K/uL (1.2-3.4); Monocytes # (auto) 0.72 K/uL (0.11-0.59); Monocytes % (auto) 14.7 %; Neutrophils # (auto) 3.52 K/uL (1.4-6.5); Neutrophils % (auto) 71.9 %; RBC Morphology Unremarkable
[2020-02-28] MEDS: POTASSIUM CHLORIDE / WTR 10 MEQ/100 ML PLCT IV SCH ×4 (05:16→08:33)
[2020-02-28] MEDS ORDERED: POTASSIUM PHOSPHATE 21 MMOL in SODIUM CHLORIDE 0.9% 500 ML IV ONE (05:30)
--- NOTE | 2020-02-28 07:03 | Electrocardiogram Report ---
Test Reason : Blood Pressure : / mmHG Vent. Rate : 098 BPM Atrial Rate : 098 BPM P-R Int : 136 ms QRS Dur : 080 ms QT Int : 344 ms P-R-T Axes : 049 027 032 degrees QTc Int : 439 ms Normal sinus rhythm Normal ECG When compared with ECG of 09-DEC-2019 04:44, No significant change was found Confirmed by Kevin Lambert ([id number]) on 02/28/2020 7:02:53 AM Referred By: REFERRED SELF Confirmed By:Kevin Lambert
[2020-02-28] MEDS: INSULIN ASPART 100 UNITS/ML 3 ML PEN SC SCH ×3 (07:52→21:49)
[2020-02-28 08:19] LABS: BUN Creatinine Ratio 20.6 (10-20); Calcium 8.5 mg/dl (8.5-10.1); Creatinine Clr Calc Pharmacy 11.3 ml/min; Est GFR (African American) 8.6; Est GFR (Non-African American) 7.4; Phosphorus 1.2 mg/dl (2.5-4.9)
[2020-02-28] MEDS: FAMOTIDINE 40 MG TABLET PO SCH (08:33)
--- NOTE | 2020-02-28 09:00 | Hospitalist Progress Note ---
Date of Service February 28, 2020 Assessment & Plan (1) Hyperglycemia: Random glucose 702 at time of admission with associated metabolic acidosis and REG. No history of DM. Hgb A1c pending. May have DM type 1 due to chronic pancreatitis. Management of DKA per protocol. Glucose this morning 169. Will need DM education / support. (2) Acidosis, metabolic: AG metabolic acidosis, probably due to DKA. (3) REG (acute kidney injury): Serum creatinine at time of admission 7.76. No history of CKD; baseline creatinine ~ 0.29 November 2019. No apparent urinary tract obstruction per CT. Acute kidney injury probably secondary to hyperglycemia / DKA. Nephrology consulted. Urine output last night 355. Receiving IV fluids. Creatinine today = 6.27. (4) Acute pancreatitis: Hospitalized with acute pancreatitis November 2019. CT in ED 02/26 demonstrated interstitial and peripancreatic edema consistent with acute pancreatitis. Serum lipase 778 in ED. GI consulted. IV fluids, analgesics, antiemetics. Lipase today = 372. (5) Nausea and vomiting: N&V could be secondary to pancreatitis, gastritis, alcohol withdrawal. Reported possible coffee ground emesis. Continue PPI and anti-emetics. GI consulted. (6) Alcohol withdrawal: History of heavy alcohol consumption. Last drink was apparently a few days prior to admission. Blood alcohol level at time of admission was undetectable. Received thiamine, folic acid, MVI in ED. Continue thiamine and folate. Monitor for signs / symptoms of withdrawal. Ordered lorazepam PRN. Consider initiating gabapentin protocol. (7) Alcoholism: Ongoing counseling / support. (8) Metabolic encephalopathy: Probable metabolic encephalopathy secondary to alcohol withdrawal and DKA. Management of specific problems as noted. Thiamine replacement. (9) MRSA (methicillin resistant Staphylococcus aureus) carrier: Nasal MRSA screen positive. Contact isolation. (10) Bacteriuria: UA showed negative nitrates, trace leukocyte esterase, 5-10 WBC's, many epithelial cells. Urine culture growing gram negative bacilli. May or may not have UTI. Final C&S report pending. (11) DVT prophylaxis: No anticoagulants at this time due to possible UGI bleed. SCD's. Ambulate as able. (12) Discharge planning issues: Discharge disposition to be determined. Family Medicine follow-up with Dr. Whatley. Admission and Anticipated Discharge Date Admission Date: February 27, 2020 Subjective Recheck for multiple problems. Patient seen in their room around 0720. 44 YO female with history of alcoholism and associated problems. Brought to ED yesterday because of altered mental status. Blood alcohol level was undetectable. Labs notable for severe hyperglycemia with metabolic acidosis + REG. Admitted to ICU. DKA managed per protocol. Somewhat better today. Feels weak. Complains of diffuse abdominal discomfort. No nausea or vomiting today. No diarrhea, melena, hematochezia. Review of Systems: Constitutional- no fever. Cardiac- no chest pain. Pulmonary- no cough or SOB. GI- as noted above. - Smart cath. Otherwise, as noted above. Physical Exam Constitutional: + ill appearing; no acute distress Eyes: + anicteric sclerae Respiratory: no respiratory distress Auscultation: lungs clear to auscultation bilaterally Cardiovascular: Rate/Rhythm: regular rate and regular rhythm Vessels: no JVD Extremities: no calf tenderness and no edema Gastrointestinal (Abdomen): Inspection/Auscultation: + abdomen distended; + abnormal bowel sounds (quiet) Percussion/Palpation: abdomen soft; abdomen nontender Skin: no rashes, warm and dry Psychiatric: Orientation: alert and oriented x 3 (oriented, but mentation slow) Genitourinary: + bladder abnormality (Smart cath) Results & Data Results & Data ([facility]) Vital Signs (Past 12 Hours) Vital Signs Temp Pulse Resp BP Pulse Ox 02/28/20 07:38 80 02/28/20 06:20 80 21 126/75 97 02/28/20 06:00 87 18 96 02/28/20 05:50 37.2 C 80 21 134/83 98 02/28/20 05:20 77 19 133/86 97 02/28/20 04:50 83 26 H 145/88 H 98 02/28/20 04:20 83 20 146/90 H 98 02/28/20 03:50 85 21 128/87 96 02/28/20 03:20 85 21 139/86 99 02/28/20 02:50 84 22 137/80 97 02/28/20 02:20 84 21 146/87 H 98 02/28/20 01:49 82 24 138/84 99 02/28/20 01:19 86 22 138/85 99 02/28/20 00:49 83 20 137/86 99 02/28/20 00:20 87 26 H 135/92 98 02/27/20 23:49 86 23 156/99 H 99 02/27/20 22:49 92 H 22 145/87 H 99 02/27/20 22:19 37.2 C 85 20 138/83 99 02/27/20 21:49 87 20 122/79 99 02/27/20 21:23 118 H 02/27/20 21:19 92 H 21 123/82 98 Laboratory Results Laboratory Results - last 24 hr 02/27/20 02/27/20 02/27/20 14:11 14:11 14:11 WBC 6.36 RBC 3.30 L Hgb 11.4 L Hct 34.6 L MCV 104.8 H MCH 34.5 H MCHC 32.9 RDW Std Deviation 58.1 H RDW Coeff of Suzanne 15.0 H Plt Count 136 MPV 11.7 H Immature Gran % (Auto) 1.4 Neut % (Auto) 73.1 Lymph % (Auto) 8.2 C[place]es % (Auto) 17.0 Eos % (Auto) 0.0 Baso % (Auto) 0.3 Neut # (Auto) 4.65 Lymph # (Auto) 0.52 L [place] # (Auto) 1.08 H Eos # (Auto) 0.00 Baso # (Auto) 0.02 Immature Gran # (Auto) 0.09 H Absolute Nucleated RBC 0.02 H Nucleated RBC % (auto) 0.3 RBC Morphology PT 12.4 H INR 1.2 H APTT 28.8 PTT Ratio 1.0 ABG pH ABG pCO2 ABG pO2 ABG HCO3 ABG O2 Saturation ABG Base Excess Raimundo Test VBG pH Barometric Pressure Oxygen Given Sodium 121 L Potassium 4.1 Chloride 79 L Carbon Dioxide 7 L* Anion Gap 35.0 H BUN 142 H Creatinine 7.76 H* Est Cr Clr Drug Dosing 8.8 Est GFR ( Amer) 6.7 Est GFR (Non-Af Amer) 5.7 BUN/Creatinine Ratio 18.2 Glucose 702 H* POC Glucose Lactate Calcium 9.6 Phosphorus Magnesium 3.5 H Total Bilirubin 2.2 H Direct Bilirubin AST 143 H ALT 101 H Alkaline Phosphatase 138 H Total Creatine Kinase 375 H Troponin I < 0.015 Total Protein 7.5 Albumin 2.9 L Globulin 4.6 H Albumin/Globulin Ratio 0.6 L Lipase 778 H Beta-Hydroxybutyric Acd 135.96 H TSH 0.884 Specimen Hemolysis Urine Color Urine Appearance Urine pH Ur Specific Orrum Urine Protein Urine Glucose (UA) Urine Ketones Urine Blood Urine Nitrite Urine Bilirubin Urine Urobilinogen Ur Leukocyte Esterase Urine WBC (Auto) Urine RBC (Auto) U Hyaline Cast (Auto) U Epithel Cells (Auto) Urine Bacteria (Auto) Ur Renal Epithelial Cell Urine Yeast Nasal Screen MRSA (PCR) Urine Opiates Screen Ur Methadone, Qual Urine Barbiturates Ur Phencyclidine (PCP) U Amphetamin/Meth Scrn MDMA (Ecstasy) Screen U Benzodiazepines Scrn Ur Cocaine Metabolite U Marijuana (THC) Screen Ethyl Alcohol mg/dL 02/27/20 02/27/20 02/27/20 14:11 14:11 14:11 WBC RBC Hgb Hct MCV MCH MCHC RDW Std Deviation RDW Coeff of Suzanne Plt Count MPV Immature Gran % (Auto) Neut % (Auto) Lymph % (Auto) [place] % (Auto) Eos % (Auto) Baso % (Auto) Neut # (Auto) Lymph # (Auto) [place] # (Auto) Eos # (Auto) Baso # (Auto) Immature Gran # (Auto) Absolute Nucleated RBC Nucleated RBC % (auto) RBC Morphology PT INR APTT PTT Ratio ABG pH ABG pCO2 ABG pO2 ABG HCO3 ABG O2 Saturation ABG Base Excess Raimundo Test VBG pH Barometric Pressure Oxygen Given Sodium Potassium Chloride Carbon Dioxide Anion Gap BUN Creatinine Est Cr Clr Drug Dosing Est GFR ( Amer) Est GFR (Non-Af Amer) BUN/Creatinine Ratio Glucose POC Glucose Lactate Cancelled Calcium Phosphorus 3.6 Magnesium Total Bilirubin Direct Bilirubin AST ALT Alkaline Phosphatase Total Creatine Kinase Troponin I Total Protein Albumin Globulin Albumin/Globulin Ratio Lipase Beta-Hydroxybutyric Acd TSH Specimen Hemolysis Urine Color Urine Appearance Urine pH Ur Specific Orrum Urine Protein Urine Glucose (UA) Urine Ketones Urine Blood Urine Nitrite Urine Bilirubin Urine Urobilinogen Ur Leukocyte Esterase Urine WBC (Auto) Urine RBC (Auto) U Hyaline Cast (Auto) U Epithel Cells (Auto) Urine Bacteria (Auto) Ur Renal Epithelial Cell Urine Yeast Nasal Screen MRSA (PCR) Urine Opiates Screen Ur Methadone, Qual Urine Barbiturates Ur Phencyclidine (PCP) U Amphetamin/Meth Scrn MDMA (Ecstasy) Screen U Benzodiazepines Scrn Ur Cocaine Metabolite U Marijuana (THC) Screen Ethyl Alcohol mg/dL < 3.0 02/27/20 02/27/20 02/27/20 15:16 16:14 16:23 WBC RBC Hgb Hct MCV MCH MCHC RDW Std Deviation RDW Coeff of Suzanne Plt Count MPV Immature Gran % (Auto) Neut % (Auto) Lymph % (Auto) [place] % (Auto) Eos % (Auto) Baso % (Auto) Neut # (Auto) Lymph # (Auto) [place] # (Auto) Eos # (Auto) Baso # (Auto) Immature Gran # (Auto) Absolute Nucleated RBC Nucleated RBC % (auto) RBC Morphology PT INR APTT PTT Ratio ABG pH 7.25 L ABG pCO2 16 L ABG pO2 120 H ABG HCO3 7 L ABG O2 Saturation 98.3 H ABG Base Excess -18.2 L Raimundo Test POS VBG pH Barometric Pressure 734.6 Oxygen Given ROOM AIR Sodium Potassium Chloride Carbon Dioxide Anion Gap BUN Creatinine Est Cr Clr Drug Dosing Est GFR ( Amer) Est GFR (Non-Af Amer) BUN/Creatinine Ratio Glucose POC Glucose > 600 H* Lactate Calcium Phosphorus Magnesium Total Bilirubin Direct Bilirubin AST ALT Alkaline Phosphatase Total Creatine Kinase Troponin I Total Protein Albumin Globulin Albumin/Globulin Ratio Lipase Beta-Hydroxybutyric Acd TSH Specimen Hemolysis Urine Color Urine Appearance Urine pH Ur Specific Orrum Urine Protein Urine Glucose (UA) Urine Ketones Urine Blood Urine Nitrite Urine Bilirubin Urine Urobilinogen Ur Leukocyte Esterase Urine WBC (Auto) Urine RBC (Auto) U Hyaline Cast (Auto) U Epithel Cells (Auto) Urine Bacteria (Auto) Ur Renal Epithelial Cell Urine Yeast Nasal Screen MRSA (PCR) Urine Opiates Screen Ur Methadone, Qual Urine Barbiturates Ur Phencyclidine (PCP) U Amphetamin/Meth Scrn MDMA (Ecstasy) Screen U Benzodiazepines Scrn Ur Cocaine Metabolite U Marijuana (THC) Screen Ethyl Alcohol mg/dL 02/27/20 02/27/20 02/27/20 16:57 17:30 17:30 WBC RBC Hgb Hct MCV MCH MCHC RDW Std Deviation RDW Coeff of Suzanne Plt Count MPV Immature Gran % (Auto) Neut % (Auto) Lymph % (Auto) [place] % (Auto) Eos % (Auto) Baso % (Auto) Neut # (Auto) Lymph # (Auto) [place] # (Auto) Eos # (Auto) Baso # (Auto) Immature Gran # (Auto) Absolute Nucleated RBC Nucleated RBC % (auto) RBC Morphology PT INR APTT PTT Ratio ABG pH ABG pCO2 ABG pO2 ABG HCO3 ABG O2 Saturation ABG Base Excess Raimundo Test VBG pH Barometric Pressure Oxygen Given Sodium Potassium Chloride Carbon Dioxide Anion Gap BUN Creatinine Est Cr Clr Drug Dosing Est GFR ( Amer) Est GFR (Non-Af Amer) BUN/Creatinine Ratio Glucose POC Glucose 497 H* Lactate Calcium Phosphorus Magnesium Total Bilirubin Direct Bilirubin AST ALT Alkaline Phosphatase Total Creatine Kinase Troponin I Total Protein Albumin Globulin Albumin/Globulin Ratio Lipase Beta-Hydroxybutyric Acd TSH Specimen Hemolysis Urine Color Dark Yellow Urine Appearance Cloudy A Urine pH 5.0 Ur Specific Orrum 1.021 Urine Protein 2+ H Urine Glucose (UA) 3+ H Urine Ketones 2+ H Urine Blood 3+ H Urine Nitrite Negative Urine Bilirubin Negative Urine Urobilinogen Negative Ur Leukocyte Esterase Trace H Urine WBC (Auto) 5-10 H Urine RBC (Auto) 10-30 H U Hyaline Cast (Auto) 5-10 H U Epithel Cells (Auto) >30 H Urine Bacteria (Auto) Negative Ur Renal Epithelial Cell 0-5 Urine Yeast Not Reportable Nasal Screen MRSA (PCR) Urine Opiates Screen Neg Ur Methadone, Qual Neg Urine Barbiturates Neg Ur Phencyclidine (PCP) Neg U Amphetamin/Meth Scrn Neg MDMA (Ecstasy) Screen Neg U Benzodiazepines Scrn Neg Ur Cocaine Metabolite Neg U Marijuana (THC) Screen Neg Ethyl Alcohol mg/dL 02/27/20 02/27/20 02/27/20 18:12 19:17 19:33 WBC RBC Hgb Hct MCV MCH MCHC RDW Std Deviation RDW Coeff of Suzanne Plt Count MPV Immature Gran % (Auto) Neut % (Auto) Lymph % (Auto) [place] % (Auto) Eos % (Auto) Baso % (Auto) Neut # (Auto) Lymph # (Auto) [place] # (Auto) Eos # (Auto) Baso # (Auto) Immature Gran # (Auto) Absolute Nucleated RBC Nucleated RBC % (auto) RBC Morphology PT INR APTT PTT Ratio ABG pH ABG pCO2 ABG pO2 ABG HCO3 ABG O2 Saturation ABG Base Excess Raimundo Test VBG pH Barometric Pressure Oxygen Given Sodium 130 L D Potassium 3.6 Chloride 93 L Carbon Dioxide 12 L Anion Gap 25.0 H BUN 143 H Creatinine 7.33 H* D Est Cr Clr Drug Dosing 9.7 Est GFR ( Amer) 7.1 Est GFR (Non-Af Amer) 6.2 BUN/Creatinine Ratio 19.3 Glucose 180 H POC Glucose 317 H* 194 H Lactate Calcium 10.1 Phosphorus 1.9 L D Magnesium 3.3 H Total Bilirubin Direct Bilirubin AST ALT Alkaline Phosphatase Total Creatine Kinase Troponin I Total Protein Albumin Globulin Albumin/Globulin Ratio Lipase Beta-Hydroxybutyric Acd TSH Specimen Hemolysis Urine Color Urine Appearance Urine pH Ur Specific Orrum Urine Protein Urine Glucose (UA) Urine Ketones Urine Blood Urine Nitrite Urine Bilirubin Urine Urobilinogen Ur Leukocyte Esterase Urine WBC (Auto) Urine RBC (Auto) U Hyaline Cast (Auto) U Epithel Cells (Auto) Urine Bacteria (Auto) Ur Renal Epithelial Cell Urine Yeast Nasal Screen MRSA (PCR) Urine Opiates Screen Ur Methadone, Qual Urine Barbiturates Ur Phencyclidine (PCP) U Amphetamin/Meth Scrn MDMA (Ecstasy) Screen U Benzodiazepines Scrn Ur Cocaine Metabolite U Marijuana (THC) Screen Ethyl Alcohol mg/dL 02/27/20 02/27/20 02/27/20 19:41 20:45 21:04 WBC RBC Hgb Hct MCV MCH MCHC RDW Std Deviation RDW Coeff of Suzanne Plt Count MPV Immature Gran % (Auto) Neut % (Auto) Lymph % (Auto) [place] % (Auto) Eos % (Auto) Baso % (Auto) Neut # (Auto) Lymph # (Auto) [place] # (Auto) Eos # (Auto) Baso # (Auto) Immature Gran # (Auto) Absolute Nucleated RBC Nucleated RBC % (auto) RBC Morphology PT INR APTT PTT Ratio ABG pH ABG pCO2 ABG pO2 ABG HCO3 ABG O2 Saturation ABG Base Excess Raimundo Test VBG pH 7.35 L Barometric Pressure Oxygen Given Sodium Potassium Chloride Carbon Dioxide Anion Gap BUN Creatinine Est Cr Clr Drug Dosing Est GFR ( Amer) Est GFR (Non-Af Amer) BUN/Creatinine Ratio Glucose POC Glucose 149 H 133 H Lactate Calcium Phosphorus Magnesium Total Bilirubin Direct Bilirubin AST ALT Alkaline Phosphatase Total Creatine Kinase Troponin I Total Protein Albumin Globulin Albumin/Globulin Ratio Lipase Beta-Hydroxybutyric Acd TSH Specimen Hemolysis Urine Color Urine Appearance Urine pH Ur Specific Orrum Urine Protein Urine Glucose (UA) Urine Ketones Urine Blood Urine Nitrite Urine Bilirubin Urine Urobilinogen Ur Leukocyte Esterase Urine WBC (Auto) Urine RBC (Auto) U Hyaline Cast (Auto) U Epithel Cells (Auto) Urine Bacteria (Auto) Ur Renal Epithelial Cell Urine Yeast Nasal Screen MRSA (PCR) Urine Opiates Screen Ur Methadone, Qual Urine Barbiturates Ur Phencyclidine (PCP) U Amphetamin/Meth Scrn MDMA (Ecstasy) Screen U Benzodiazepines Scrn Ur Cocaine Metabolite U Marijuana (THC) Screen Ethyl Alcohol mg/dL 02/27/20 02/27/20 02/27/20 21:18 21:42 22:26 WBC RBC Hgb Hct MCV MCH MCHC RDW Std Deviation RDW Coeff of Suzanne Plt Count MPV Immature Gran % (Auto) Neut % (Auto) Lymph % (Auto) [place] % (Auto) Eos % (Auto) Baso % (Auto) Neut # (Auto) Lymph # (Auto) [place] # (Auto) Eos # (Auto) Baso # (Auto) Immature Gran # (Auto) Absolute Nucleated RBC Nucleated RBC % (auto) RBC Morphology PT INR APTT PTT Ratio ABG pH ABG pCO2 ABG pO2 ABG HCO3 ABG O2 Saturation ABG Base Excess Raimundo Test VBG pH Barometric Pressure Oxygen Given Sodium Potassium Chloride Carbon Dioxide Anion Gap BUN Creatinine Est Cr Clr Drug Dosing Est GFR ( Amer) Est GFR (Non-Af Amer) BUN/Creatinine Ratio Glucose POC Glucose 142 H 197 H 236 H Lactate Calcium Phosphorus Magnesium Total Bilirubin Direct Bilirubin AST ALT Alkaline Phosphatase Total Creatine Kinase Troponin I Total Protein Albumin Globulin Albumin/Globulin Ratio Lipase Beta-Hydroxybutyric Acd TSH Specimen Hemolysis Urine Color Urine Appearance Urine pH Ur Specific Orrum Urine Protein Urine Glucose (UA) Urine Ketones Urine Blood Urine Nitrite Urine Bilirubin Urine Urobilinogen Ur Leukocyte Esterase Urine WBC (Auto) Urine RBC (Auto) U Hyaline Cast (Auto) U Epithel Cells (Auto) Urine Bacteria (Auto) Ur Renal Epithelial Cell Urine Yeast Nasal Screen MRSA (PCR) Urine Opiates Screen Ur Methadone, Qual Urine Barbiturates Ur Phencyclidine (PCP) U Amphetamin/Meth Scrn MDMA (Ecstasy) Screen U Benzodiazepines Scrn Ur Cocaine Metabolite U Marijuana (THC) Screen Ethyl Alcohol mg/dL 02/27/20 02/27/20 02/27/20 23:24 23:24 23:32 WBC RBC Hgb Hct MCV MCH MCHC RDW Std Deviation RDW Coeff of Suzanne Plt Count MPV Immature Gran % (Auto) Neut % (Auto) Lymph % (Auto) [place] % (Auto) Eos % (Auto) Baso % (Auto) Neut # (Auto) Lymph # (Auto) [place] # (Auto) Eos # (Auto) Baso # (Auto) Immature Gran # (Auto) Absolute Nucleated RBC Nucleated RBC % (auto) RBC Morphology PT INR APTT PTT Ratio ABG pH ABG pCO2 ABG pO2 ABG HCO3 ABG O2 Saturation ABG Base Excess Raimundo Test VBG pH 7.32 L Barometric Pressure Oxygen Given Sodium 131 L Potassium 3.8 Chloride 93 L Carbon Dioxide 16 L Anion Gap 22.0 H BUN 142 H Creatinine 7.00 H* D Est Cr Clr Drug Dosing 10.1 Est GFR ( Amer) 7.5 Est GFR (Non-Af Amer) 6.5 BUN/Creatinine Ratio 20.2 H Glucose 253 H POC Glucose 273 H Lactate Calcium 8.9 Phosphorus 1.7 L Magnesium 2.9 H Total Bilirubin Direct Bilirubin AST ALT Alkaline Phosphatase Total Creatine Kinase Troponin I Total Protein Albumin Globulin Albumin/Globulin Ratio Lipase Beta-Hydroxybutyric Acd TSH Specimen Hemolysis Urine Color Urine Appearance Urine pH Ur Specific Orrum Urine Protein Urine Glucose (UA) Urine Ketones Urine Blood Urine Nitrite Urine Bilirubin Urine Urobilinogen Ur Leukocyte Esterase Urine WBC (Auto) Urine RBC (Auto) U Hyaline Cast (Auto) U Epithel Cells (Auto) Urine Bacteria (Auto) Ur Renal Epithelial Cell Urine Yeast Nasal Screen MRSA (PCR) Urine Opiates Screen Ur Methadone, Qual Urine Barbiturates Ur Phencyclidine (PCP) U Amphetamin/Meth Scrn MDMA (Ecstasy) Screen U Benzodiazepines Scrn Ur Cocaine Metabolite U Marijuana (THC) Screen Ethyl Alcohol mg/dL 02/27/20 02/28/20 02/28/20 Unknown 00:33 01:32 WBC RBC Hgb Hct MCV MCH MCHC RDW Std Deviation RDW Coeff of Suzanne Plt Count MPV Immature Gran % (Auto) Neut % (Auto) Lymph % (Auto) [place] % (Auto) Eos % (Auto) Baso % (Auto) Neut # (Auto) Lymph # (Auto) [place] # (Auto) Eos # (Auto) Baso # (Auto) Immature Gran # (Auto) Absolute Nucleated RBC Nucleated RBC % (auto) RBC Morphology PT INR APTT PTT Ratio ABG pH ABG pCO2 ABG pO2 ABG HCO3 ABG O2 Saturation ABG Base Excess Raimundo Test VBG pH Barometric Pressure Oxygen Given Sodium Potassium Chloride Carbon Dioxide Anion Gap BUN Creatinine Est Cr Clr Drug Dosing Est GFR ( Amer) Est GFR (Non-Af Amer) BUN/Creatinine Ratio Glucose POC Glucose 295 H 307 H* Lactate Calcium Phosphorus Magnesium Total Bilirubin Direct Bilirubin AST ALT Alkaline Phosphatase Total Creatine Kinase Troponin I Total Protein Albumin Globulin Albumin/Globulin Ratio Lipase Beta-Hydroxybutyric Acd TSH Specimen Hemolysis Urine Color Urine Appearance Urine pH Ur Specific Orrum Urine Protein Urine Glucose (UA) Urine Ketones Urine Blood Urine Nitrite Urine Bilirubin Urine Urobilinogen Ur Leukocyte Esterase Urine WBC (Auto) Urine RBC (Auto) U Hyaline Cast (Auto) U Epithel Cells (Auto) Urine Bacteria (Auto) Ur Renal Epithelial Cell Urine Yeast Nasal Screen MRSA (PCR) Positive A Urine Opiates Screen Ur Methadone, Qual Urine Barbiturates Ur Phencyclidine (PCP) U Amphetamin/Meth Scrn MDMA (Ecstasy) Screen U Benzodiazepines Scrn Ur Cocaine Metabolite U Marijuana (THC) Screen Ethyl Alcohol mg/dL 02/28/20 02/28/20 02/28/20 02:34 03:31 03:32 WBC RBC Hgb Hct MCV MCH MCHC RDW Std Deviation RDW Coeff of Suzanne Plt Count MPV Immature Gran % (Auto) Neut % (Auto) Lymph % (Auto) [place] % (Auto) Eos % (Auto) Baso % (Auto) Neut # (Auto) Lymph # (Auto) [place] # (Auto) Eos # (Auto) Baso # (Auto) Immature Gran # (Auto) Absolute Nucleated RBC Nucleated RBC % (auto) RBC Morphology PT INR APTT PTT Ratio ABG pH ABG pCO2 ABG pO2 ABG HCO3 ABG O2 Saturation ABG Base Excess Raimundo Test VBG pH Barometric Pressure Oxygen Given Sodium 132 L Potassium 3.2 L D Chloride 96 L Carbon Dioxide 17 L Anion Gap 19.0 H BUN 140 H Creatinine 6.74 H* Est Cr Clr Drug Dosing 10.5 Est GFR ( Amer) 7.9 Est GFR (Non-Af Amer) 6.8 BUN/Creatinine Ratio 20.8 H Glucose 220 H POC Glucose 273 H 233 H Lactate Calcium 8.8 Phosphorus 0.8 L* Magnesium 2.7 H Total Bilirubin 1.3 H Direct Bilirubin 1.0 H AST 102 H ALT 68 Alkaline Phosphatase 109 Total Creatine Kinase Troponin I Total Protein 5.8 L D Albumin 2.4 L Globulin Albumin/Globulin Ratio Lipase 372 Beta-Hydroxybutyric Acd TSH Specimen Hemolysis Urine Color Urine Appearance Urine pH Ur Specific Orrum Urine Protein Urine Glucose (UA) Urine Ketones Urine Blood Urine Nitrite Urine Bilirubin Urine Urobilinogen Ur Leukocyte Esterase Urine WBC (Auto) Urine RBC (Auto) U Hyaline Cast (Auto) U Epithel Cells (Auto) Urine Bacteria (Auto) Ur Renal Epithelial Cell Urine Yeast Nasal Screen MRSA (PCR) Urine Opiates Screen Ur Methadone, Qual Urine Barbiturates Ur Phencyclidine (PCP) U Amphetamin/Meth Scrn MDMA (Ecstasy) Screen U Benzodiazepines Scrn Ur Cocaine Metabolite U Marijuana (THC) Screen Ethyl Alcohol mg/dL 02/28/20 02/28/20 02/28/20 03:32 03:32 04:28 WBC 4.90 RBC 2.64 L Hgb 9.1 L Hct 25.7 L MCV 97.3 D MCH 34.5 H MCHC 35.4 RDW Std Deviation 55.6 H RDW Coeff of Suzanne 15.6 H Plt Count 104 L MPV 10.9 H Immature Gran % (Auto) 1.0 Neut % (Auto) 71.9 Lymph % (Auto) 12.0 C[place]es % (Auto) 14.7 Eos % (Auto) 0.2 Baso % (Auto) 0.2 Neut # (Auto) 3.52 Lymph # (Auto) 0.59 L C[place]es # (Auto) 0.72 H Eos # (Auto) 0.01 Baso # (Auto) 0.01 Immature Gran # (Auto) 0.05 H Absolute Nucleated RBC Nucleated RBC % (auto) RBC Morphology Unremarkable PT INR APTT PTT Ratio ABG pH ABG pCO2 ABG pO2 ABG HCO3 ABG O2 Saturation ABG Base Excess Raimundo Test VBG pH 7.36 Barometric Pressure Oxygen Given Sodium Potassium Chloride Carbon Dioxide Anion Gap BUN Creatinine Est Cr Clr Drug Dosing Est GFR ( Amer) Est GFR (Non-Af Amer) BUN/Creatinine Ratio Glucose POC Glucose 221 H Lactate Calcium Phosphorus Magnesium Total Bilirubin Direct Bilirubin AST ALT Alkaline Phosphatase Total Creatine Kinase Troponin I Total Protein Albumin Globulin Albumin/Globulin Ratio Lipase Beta-Hydroxybutyric Acd TSH Specimen Hemolysis Urine Color Urine Appearance Urine pH Ur Specific Orrum Urine Protein Urine Glucose (UA) Urine Ketones Urine Blood Urine Nitrite Urine Bilirubin Urine Urobilinogen Ur Leukocyte Esterase Urine WBC (Auto) Urine RBC (Auto) U Hyaline Cast (Auto) U Epithel Cells (Auto) Urine Bacteria (Auto) Ur Renal Epithelial Cell Urine Yeast Nasal Screen MRSA (PCR) Urine Opiates Screen Ur Methadone, Qual Urine Barbiturates Ur Phencyclidine (PCP) U Amphetamin/Meth Scrn MDMA (Ecstasy) Screen U Benzodiazepines Scrn Ur Cocaine Metabolite U Marijuana (THC) Screen Ethyl Alcohol mg/dL 02/28/20 02/28/20 02/28/20 05:38 06:53 07:10 WBC RBC Hgb Hct MCV MCH MCHC RDW Std Deviation RDW Coeff of Suzanne Plt Count MPV Immature Gran % (Auto) Neut % (Auto) Lymph % (Auto) [place] % (Auto) Eos % (Auto) Baso % (Auto) Neut # (Auto) Lymph # (Auto) [place] # (Auto) Eos # (Auto) Baso # (Auto) Immature Gran # (Auto) Absolute Nucleated RBC Nucleated RBC % (auto) RBC Morphology PT INR APTT PTT Ratio ABG pH ABG pCO2 ABG pO2 ABG HCO3 ABG O2 Saturation ABG Base Excess Raimundo Test VBG pH Barometric Pressure Oxygen Given Sodium 131 L Potassium Pending Chloride 100 Carbon Dioxide 16 L Anion Gap 15.0 H BUN 128 H Creatinine 6.27 H* D Est Cr Clr Drug Dosing 11.3 Est GFR ( Amer) 8.6 Est GFR (Non-Af Amer) 7.4 BUN/Creatinine Ratio 20.6 H Glucose 169 H POC Glucose 216 H Lactate Calcium 8.5 Phosphorus 1.2 L* Magnesium Pending Total Bilirubin Direct Bilirubin AST ALT Alkaline Phosphatase Total Creatine Kinase Troponin I Total Protein Albumin Globulin Albumin/Globulin Ratio Lipase Beta-Hydroxybutyric Acd Pending TSH Specimen Hemolysis Urine Color Urine Appearance Urine pH Ur Specific Orrum Urine Protein Urine Glucose (UA) Urine Ketones Urine Blood Urine Nitrite Urine Bilirubin Urine Urobilinogen Ur Leukocyte Esterase Urine WBC (Auto) Urine RBC (Auto) U Hyaline Cast (Auto) U Epithel Cells (Auto) Urine Bacteria (Auto) Ur Renal Epithelial Cell Urine Yeast Nasal Screen MRSA (PCR) Urine Opiates Screen Ur Methadone, Qual Urine Barbiturates Ur Phencyclidine (PCP) U Amphetamin/Meth Scrn MDMA (Ecstasy) Screen U Benzodiazepines Scrn Ur Cocaine Metabolite U Marijuana (THC) Screen Ethyl Alcohol mg/dL 02/28/20 02/28/20 02/28/20 07:10 07:26 07:56 WBC RBC Hgb Hct MCV MCH MCHC RDW Std Deviation RDW Coeff of Suznane Plt Count MPV Immature Gran % (Auto) Neut % (Auto) Lymph % (Auto) [place] % (Auto) Eos % (Auto) Baso % (Auto) Neut # (Auto) Lymph # (Auto) Ciales # (Auto) Eos # (Auto) Baso # (Auto) Immature Gran # (Auto) Absolute Nucleated RBC Nucleated RBC % (auto) RBC Morphology PT INR APTT PTT Ratio ABG pH ABG pCO2 ABG pO2 ABG HCO3 ABG O2 Saturation ABG Base Excess Raimundo Test VBG pH 7.36 Barometric Pressure Oxygen Given Sodium Potassium Chloride Carbon Dioxide Anion Gap BUN Creatinine Est Cr Clr Drug Dosing Est GFR ( Amer) Est GFR (Non-Af Amer) BUN/Creatinine Ratio Glucose POC Glucose 188 H Lactate 1.1 Calcium Phosphorus Magnesium Total Bilirubin Direct Bilirubin AST ALT Alkaline Phosphatase Total Creatine Kinase Troponin I Total Protein Albumin Globulin Albumin/Globulin Ratio Lipase Beta-Hydroxybutyric Acd TSH Specimen Hemolysis Urine Color Urine Appearance Urine pH Ur Specific Orrum Urine Protein Urine Glucose (UA) Urine Ketones Urine Blood Urine Nitrite Urine Bilirubin Urine Urobilinogen Ur Leukocyte Esterase Urine WBC (Auto) Urine RBC (Auto) U Hyaline Cast (Auto) U Epithel Cells (Auto) Urine Bacteria (Auto) Ur Renal Epithelial Cell Urine Yeast Nasal Screen MRSA (PCR) Urine Opiates Screen Ur Methadone, Qual Urine Barbiturates Ur Phencyclidine (PCP) U Amphetamin/Meth Scrn MDMA (Ecstasy) Screen U Benzodiazepines Scrn Ur Cocaine Metabolite U Marijuana (THC) Screen Ethyl Alcohol mg/dL (1) Acute pancreatitis Acute pancreatitis complication: unspecified Pancreatitis type: alcohol induced Qualified Code(s): K85.20 - Alcohol induced acute pancreatitis without necrosis or infection
[2020-02-28] MEDS: LORazepam 1 MG/2 ML VIAL IV PRN ×2 (09:02→22:05)
[2020-02-28 09:06] LABS: Beta-Hydroxybutyrate 3.79 mg/dl (0.2-2.81); Magnesium 2.7 mg/dl (1.8-2.4)
[2020-02-28 09:07] LABS: Potassium 3.7 mmol/L (3.5-5.1)
--- NOTE | 2020-02-28 09:10 | Critical Care Progress Note ---
Date of Service February 28, 2020 Assessment & Plan (1) Acute renal failure (ARF): --Acute renal failure Oliguric Likely prerenal from severe DKA Could be a component of ATN Follow-up urine lites Strict in and out Avoid nephrotoxic medication Nephrology consulted -- HAGMA Delta-delta: Between 1 and 2 Likely sec to Mildly elevated beta hydroxybutyric acid plus BUN Monitor --DKA New onset DKA, blood sugar admission 702 Continue with insulin drip until anion gap closes Decreasing blood glucose no more than 100 in an hour Replace potassium IV when potassium level between 3.3-5.3 BMP every 4 hours Continue with IV fluids --Macrocytic anemia Monitor H&H Transfuse if hemoglobin less than 7 --Elevated liver enzymes Meld score 26, 19.6% mortality in the next 3 months Discriminant factor: 2.9 Likely from alcohol abuse Monitor LFTs Alcohol withdrawal protocol as per [facility] --Acute pancreatitis Likely secondary to alcohol abuse Aggressive fluid on the first 24 hours --Status post metabolic encephalopathy Likely secondary to severe acidosis on top of uremia TSH 0.88, UDS negative Improved Monitor --UTI Follow-up sensitivity Start levofloxacin for the time being, QTc 4 and 39 --Prophylaxis VTE: Compression boots given thrombocytopenia GI: Pepcid Lines: Peripheral, positive Smart Diet: N.p.o. Plan: In/out: +3.89 L, urine output 655 Patient acute renal failure. I think is a component of REG. Patient is oliguric. Making small amount of urine. Creatinine is improving gradually. Hopefully will not have to dialyze the patient. Nephrology has been consulted. We will order urine analysis with urine lites. Patient has anion gap likely secondary to elevated BUN. Beta hydroxybutyric acid has been trending down. We will not wait for the anion gap to close totally I do not think that would be possible with elevated BUN. Will change to subcu insulin later today. Patient is a bit jittery, will start the patient on 2 mg of Ativan every 4 hours as needed agitation. Based on the labs today will decide if he can go down on the IV fluids that the patient has been getting. Patient will need diabetic education as this is new onset diabetes. There has been drop in hemoglobin from 11.4-9.1 patient is also 3.89 L positive could be all dilutional. No clear signs of any bleeding. Repeat H&H in the afternoon. I have personally spent 66 minutes of critical care time in the direct management of this patient. This is a life/limb threatening event. This includes time spent evaluating patient, direct bedside care, chart review, placing orders, interpretation of diagnostic studies, discussion with consultants, patient, and family members, as well as other required patient management activities. This time is exclusive of all separately billable procedures, and teaching time and separate from and in addition to any other critical care service time. Please note the above document was generated using voice recognition software. It may contain grammatical, syntax or spelling errors. (2) DKA (diabetic ketoacidoses): (3) Acute pancreatitis: (4) Elevated LFTs: (5) Acidosis, metabolic: Admission and Anticipated Discharge Date Admission Date: February 27, 2020 Subjective Patient seen and examined at bedside. No acute distress, no adverse events overnight. Patient is on insulin drip 4.4 units along with D5 half NS at 250 mL per hour. Patient complains of mild abdominal discomfort. Denies any nausea or vomiting. No headache. No dizziness. Little bit jittery. On asking whether she needs something for withdrawal she replied yes. Afebrile Review of Systems Review of Systems: All systems reviewed & are unremarkable except as noted in Subjective Physical Exam Physical Exam: Constitutional: No acute distress HEENT: EOMI, PERRLA Respiratory system: Decreased air entry bilaterally, no wheeze, rhonchi, mild crackles bilateral lower lobes CVS: S1-S2 positive, no murmurs or gallops Abdomen: Soft, nontender, positive bowel sounds x4, distended not tense, obese Extremities: +2 pulses bilaterally radialis/ dorsalis pedis, no cyanosis, no edema Neuro: Awake alert oriented x3 Psych: Normal mood and affect G/U: Positive Smart Skin: no rashes, warm and dry Lymphatic: no cervical or axillary lymphadenopathy Results & Data Results & Data ([facility]) Vital Signs (Past 12 Hours) Vital Signs Temp Pulse Resp BP Pulse Ox 02/28/20 07:38 80 02/28/20 06:20 80 21 126/75 97 02/28/20 06:00 87 18 96 02/28/20 05:50 37.2 C 80 21 134/83 98 02/28/20 05:20 77 19 133/86 97 02/28/20 04:50 83 26 H 145/88 H 98 02/28/20 04:20 83 20 146/90 H 98 02/28/20 03:50 85 21 128/87 96 02/28/20 03:20 85 21 139/86 99 02/28/20 02:50 84 22 137/80 97 02/28/20 02:20 84 21 146/87 H 98 02/28/20 01:49 82 24 138/84 99 02/28/20 01:19 86 22 138/85 99 02/28/20 00:49 83 20 137/86 99 02/28/20 00:20 87 26 H 135/92 98 02/27/20 23:49 86 23 156/99 H 99 02/27/20 22:49 92 H 22 145/87 H 99 02/27/20 22:19 37.2 C 85 20 138/83 99 02/27/20 21:49 87 20 122/79 99 02/27/20 21:23 118 H 02/27/20 21:19 92 H 21 123/82 98 02/28/20 03:32 02/28/20 07:10 Coding Level of Care Code Critical Care 1st 30-74 mins Diagnoses Acute renal failure (ARF) N17.9 DKA (diabetic ketoacidoses) E10.10 Diabetes mellitus complication detail: without coma Diabetes mellitus type: type 1 Acute pancreatitis K85.20 Acute pancreatitis complication: unspecified Pancreatitis type: alcohol induced Elevated LFTs R79.89 Acidosis, metabolic E87.2 Time Spent (min) 66 (1) DKA (diabetic ketoacidoses) Diabetes mellitus complication detail: without coma Diabetes mellitus type: type 1 Qualified Code(s): E10.10 - Type 1 diabetes mellitus with ketoacidosis without coma (2) Acute pancreatitis Acute pancreatitis complication: unspecified Pancreatitis type: alcohol induced Qualified Code(s): K85.20 - Alcohol induced acute pancreatitis without necrosis or infection
[2020-02-28 10:32] LABS: Estimated Average Glucose 120 mg/dl; Hemoglobin A1C 5.8 % (4.5-5.6)
[2020-02-28] MEDS ORDERED: levoFLOXacin 750 MG TAB PO SCH (11:00)
[2020-02-28 11:29] LABS: Hematocrit (blood only) 25.3 % (37-47)
[2020-02-28 11:57] LABS: BUN Creatinine Ratio 21.2 (10-20); Calcium 8.7 mg/dl (8.5-10.1); Creatinine Clr Calc Pharmacy 11.7 ml/min; Est GFR (Non-African American) 7.7; Magnesium 2.6 mg/dl (1.8-2.4); Phosphorus 1.8 mg/dl (2.5-4.9); Potassium 3.8 mmol/L (3.5-5.1)
[2020-02-28] MEDS ORDERED: KPHOS IV ONE (12:41)
[2020-02-28] MEDS ORDERED: D5NSS + 20MEQ KCL 20 MEQ/1,000 ML BAG IV SCH (12:45)
[2020-02-28 12:56] LABS: Appearance Urine Clear (Clear); Bacteria Urine Automated 1+ (Negative); Bilirubin Urine Negative (Negative); Blood Urine 2+ (Negative); Color Urine Yellow; Glucose Urine UA Trace (Negative); Ketones Urine Negative (Negative); Leukocyte Esterase Urine 2+ (Negative); Nitrite Urine Negative (Negative); Protein Urine 1+ (Negative); Specific Gravity Urine 1.013 (1.000-1.030); Urobilinogen Urine Negative (Negative); pH Urine 6.5 (4.5-7.5)
--- NOTE | 2020-02-28 12:59 | Consultation Report ---
DATE OF CONSULTATION: 02/28/2020 NEPHROLOGY CONSULTATION REASON FOR CONSULT: Acute renal failure. HISTORY OF PRESENT ILLNESS: The patient is a 44-year-old female with history of alcohol abuse who presented to the hospital yesterday because of altered mental status. The patient is not able to give me any meaningful history at this time and history was predominantly constructed from the H and P and the chart. In the Emergency Department, she was found to be tachycardic, tachypneic and very abnormal labs with acute renal failure with a BUN of 142, creatinine of 7.7, blood glucose of 700 with DKA and metabolic acidosis. She was admitted to intensive care unit where she still is. Since admission, she has received aggressive hydration, and with that, renal labs are slowly getting better. Her urine output in the last 5 hours was about 120 mL per hour and improving. Urine sediment checked shows findings consistent with ATN as well as severe prerenal. She has been hemodynamically stable and has not had any issues with hypotension during her stay so far. Sodium is also slightly low at 131. She is getting D5 half normal saline with potassium at 250 mL per hour. ALLERGIES: Reviewed. HOME MEDICATIONS: List includes Advair Diskus, folic acid, multivitamin, Protonix. PAST MEDICAL AND SURGICAL HISTORY: Includes alcohol abuse, anxiety, asthma, history of pancreatitis related with alcohol, panic disorder. Surgical history includes dental surgery, EGD. FAMILY HISTORY: Father with prediabetes and grandparents with diabetes. Mother has hypertension. SOCIAL HISTORY: Former smoker, heavy alcohol use every day, predominantly vodka. She has a 16-year-old daughter. She is a single parent, but lives with her own parents. REVIEW OF SYSTEMS: Unobtainable due to poor answering of the questions and sleepiness. PHYSICAL EXAMINATION: GENERAL: Mildly obese, young white female who is not in any respiratory distress at this time. VITAL SIGNS: Appears normal with blood pressure of 126/75, pulse rate 80, temperature 37.2 degrees Celsius, 97% on room air. HEENT: Mucous membrane is moist. NECK: Supple. CHEST: Bilateral decreased breath sound, very poor inspiratory effort with limited quality of the exam. CARDIOVASCULAR: S1 and S2, regular. ABDOMEN: Soft, nontender, obese. EXTREMITIES: Show no edema. SKIN: Shows no rashes. LABORATORY TESTS: Reviewed in detail. At the time of admission, BUN was 142, creatinine was 7.73, and since then has steadily improved with the most recent blood work showing BUN of 129, creatinine of 6.07, sodium 131, potassium 3.8, bicarbonate 16, anion gap 14. Phosphorus is 1.8, magnesium 2.6. Urine test shows findings consistent with ATN with lots of epithelial cells as well as hyaline cast and a very active urine sediment. CBC at the time of admission showed a white count of 1.99, this morning it is better at 4.9, hemoglobin was 11.9 and it is down at 9.0. IMAGING: CT scan of the abdomen shows findings of acute pancreatitis. Kidneys were reported unremarkable. There was fatty liver. Chest x-ray was unremarkable. ASSESSMENT AND PLAN: A 44-year-old female admitted with altered mental status and was found to have acute pancreatitis as well as diabetic ketoacidosis and severe acute renal failure, for which I have been consulted. 1. Acute renal failure: Unfortunately, this is not just a simple prerenal case with diabetic ketoacidosis. Her urine sediment is very consistent with acute tubular necrosis, which is not unexpected as she also has pancreatitis. However, urine output is increasing and has been quite good at about 120 mL per hour for the last 5 hours. She is hemodynamically very stable, thus favoring renal recovery in the coming days. However, her renal function will not get better very quick as this is predominantly acute tubular necrosis, nonoliguric type. Avoid nephrotoxic agents. Serum sodium is 131. So I would recommend to use D5 normal saline with potassium chloride at a slightly lower rate of about 175 mL per hour. Phosphorus is also low and needs to be corrected given that she is alcoholic who are well known to have low phosphorus. No further workup is needed for the etiology of the acute renal failure. 2. Multiple electrolyte imbalances, namely hyponatremia, hypophosphatemia, hypokalemia, anion gap metabolic acidosis: However, all of these things should gradually get better with correction of blood glucose and resolution of renal failure in the coming days. I do believe the patient has improved significantly and I do not expect her to require dialysis in the coming days. [facility]
[2020-02-28] MEDS ORDERED: POTASSIUM PHOSPHATE 15 MMOL in SODIUM CHLORIDE 0.9% 250 ML IV ONE (13:00)
[2020-02-28 13:14] LABS: Creatinine Urine Random 52.4 mg/dl; Potassium Random Urine 43.9 mmol/L; Uric Acid Urine Random 48.7 mg/dl
[2020-02-28] MEDS ORDERED: PHARMACY GLYCEMIC MGMT CONSULT PRN (15:20)
[2020-02-28 16:24] LABS: BUN Creatinine Ratio 21.6 (10-20); Beta-Hydroxybutyrate 1.39 mg/dl (0.2-2.81); Creatinine Clr Calc Pharmacy 12.5 ml/min; Est GFR (African American) 9.7; Est GFR (Non-African American) 8.4; Magnesium 2.3 mg/dl (1.8-2.4); Phosphorus 2.2 mg/dl (2.5-4.9); Potassium 3.7 mmol/L (3.5-5.1)
[2020-02-28] MEDS ORDERED: INSULIN ASPART 100 UNITS/ML 3 ML PEN SC SCH (16:30)
--- NOTE | 2020-02-28 16:53 | Pharmacy Report ---
Glycemic Control Consultation - Date of Service February 28, 2020 - Scope Scope: Glycemic Pharmacist consulted for glycemic control and to write orders per [facility] inpatient glycemic control protocol. - Objective Weight: 81.8 kg Accuchecks BSG (last 24hrs): 02/27/20 02/27/20 02/27/20 16:57 18:12 19:17 Glucose POC Glucose 497 H* 317 H* 194 H 02/27/20 02/27/20 02/27/20 19:33 20:45 21:04 Glucose 180 H POC Glucose 149 H 133 H 02/27/20 02/27/20 02/27/20 21:18 21:42 22:26 Glucose POC Glucose 142 H 197 H 236 H 02/27/20 02/27/20 02/28/20 23:24 23:32 00:33 Glucose 253 H POC Glucose 273 H 295 H 02/28/20 02/28/20 02/28/20 01:32 02:34 03:31 Glucose POC Glucose 307 H* 273 H 233 H 02/28/20 02/28/20 02/28/20 03:32 04:28 05:38 Glucose 220 H POC Glucose 221 H 216 H 02/28/20 02/28/20 02/28/20 07:10 07:26 09:27 Glucose 169 H POC Glucose 188 H 189 H 02/28/20 02/28/20 02/28/20 11:19 11:27 13:29 Glucose 173 H POC Glucose 173 H 158 H 02/28/20 02/28/20 15:35 16:21 Glucose 107 H POC Glucose 108 H Laboratory Data (last 24hrs): 02/27/20 02/27/20 02/28/20 19:33 23:24 03:32 Potassium 3.6 3.8 3.2 L D Carbon Dioxide 12 L 16 L 17 L Anion Gap 25.0 H 22.0 H 19.0 H Creatinine 7.33 H* D 7.00 H* D 6.74 H* Est Cr Clr Drug Dosing 9.7 10.1 10.5 Beta-Hydroxybutyric Acd 02/28/20 02/28/20 02/28/20 06:53 07:10 11:19 Potassium 3.7 D 3.8 Carbon Dioxide 16 L 16 L Anion Gap 15.0 H 14.0 H Creatinine 6.27 H* D 6.07 H* Est Cr Clr Drug Dosing 11.3 11.7 Beta-Hydroxybutyric Acd 3.79 H 02/28/20 15:35 Potassium 3.7 Carbon Dioxide 15 L Anion Gap 15.0 H Creatinine 5.67 H* D Est Cr Clr Drug Dosing 12.5 Beta-Hydroxybutyric Acd 1.39 HbA1c: Hemoglobin A1c 5.8 % (4.5-5.6) H 02/28/20 08:38 - Recent Pertinent Medications Outpatient Anti-diabetic Regimen: * None * A1c = 5.8 % The patient is currently receiving: * Insulin drip @ 4.4 units/hr Risk Factors for Insulin Resistance: * Infection: Pancreatitis * IVF: D5NS+KCl 20mEq/L @ 175 mL/hr * Diet: NPO initially, now T1DM (CHO not restricted but are counted on this diet) - Assessment & Plan Assessment & Plan: ASSESSMENT: * 44 yo F with no hx of diabetes but HbA1c suggestive of pre-diabetes admitted with DKA likely precipitated by pancreatitis * Currently on insulin drip - stable drip rate of 4.4 units/hr from 1401-6867 today with BSG's gradually but steadily trending down from 273 to 108 mg/dL. Insulin drip rate will now decrease per protocol * Anion gap increased slightly and CO2 decreased slightly from checks earlier today. * Will need to continue insulin drip until anion gap is 12 mEq/L or below AND CO2 is 15 mEq/L or above AND provider has given approval for transition to basal/bolus. * Continue insulin drip at goal 150-250 mg/dL and with concurrent dextrose- containing IVF until anion gap and CO2 have normalized, per above * Once patient is ready to transition off drip (per above parameters), would recommend eliminating dextrose from IVF, decreasing goal range of insulin drip to 140-180 mg/dL, giving a one-time dose of Lantus (dose dependent on insulin drip rate at that time), and with a minimum of 3 hours of overlap of Lantus and insulin drip. Insulin drip can then be discontinued when the rate falls to less than 1 unit/hr PLAN FOR INPATIENT GLYCEMIC CONTROL: * Continue IV insulin infusion * Goal Range 150 - 250 mg/dl * In the critical care setting, continuous IV insulin infusion has been shown to be the best method for achieving glycemic targets. * Novolog ACHS to cover CHO with meals, with CHO ratio determined by insulin drip protocol * Please note that the plan above was derived based on current level of insulin resistance and hospital stress. These recommendations are appropriate for inpatient admission only. Plan of care upon discharge will need to be reassessed to avoid potential outpatient hypo/hyperglycemia. Thank you.
[2020-02-28] MEDS ORDERED: INSULIN GLARGINE SOLOSTAR 100 UNITS/ML 3 ML PEN SC ONE (18:00)
[2020-02-28] MEDS ORDERED: INSULIN PROTOCOL GOAL RANGE ONE (18:15)
[2020-02-28] MEDS: NSS + 20MEQ KCL 20 MEQ/1,000 ML BAG IV SCH ×2 (18:30→23:59)
[2020-02-28 20:04] LABS: BUN Creatinine Ratio 22.8 (10-20); Creatinine Clr Calc Pharmacy 13.8 ml/min; Est GFR (Non-African American) 9.5; Magnesium 2.4 mg/dl (1.8-2.4); Phosphorus 2.1 mg/dl (2.5-4.9)
[2020-02-28 23:47] LABS: BUN Creatinine Ratio 22.7 (10-20); Creatinine Clr Calc Pharmacy 14.1 ml/min; Est GFR (African American) 11.2; Est GFR (Non-African American) 9.7; Phosphorus 1.4 mg/dl (2.5-4.9)
[2020-02-29 00:30] LABS: Potassium 3.5 mmol/L (3.5-5.1)
[2020-02-29 00:31] LABS: Magnesium 2.1 mg/dl (1.8-2.4)
[2020-02-29] MEDS ORDERED: POTASSIUM PHOS 3 MMOL/1 ML INFUSION IV STA ×2 (00:48→06:23)
[2020-02-29] MEDS ORDERED: POTASSIUM PHOSPHATE 24 MMOL in SODIUM CHLORIDE 0.9% 500 ML IV ONE (01:00)
[2020-02-29] MEDS: INSULIN REGULAR 250 UNITS in SODIUM CHLORIDE 0.9% 247.5 ML IV SCH (01:35)
[2020-02-29 03:22] LABS: Hematocrit (blood only) 25.6 % (37-47); Hemoglobin 8.7 g/dL (12.0-16.0)
[2020-02-29 03:42] LABS: BUN Creatinine Ratio 23.5 (10-20); Calcium 8.8 mg/dl (8.5-10.1); Creatinine Clr Calc Pharmacy 15.5 ml/min; Est GFR (African American) 12.6; Est GFR (Non-African American) 10.8; Phosphorus 2.7 mg/dl (2.5-4.9); Potassium 3.8 mmol/L (3.5-5.1)
[2020-02-29] MEDS: PANTOprazole 40 MG in DEXTROSE 5% 100 ML IV SCH (04:31)
[2020-02-29] MEDS: NSS + 20MEQ KCL 20 MEQ/1,000 ML BAG IV SCH ×2 (05:53→11:07)
[2020-02-29] MEDS ORDERED: POTASSIUM PHOSPHATE 15 MMOL in SODIUM CHLORIDE 0.9% 250 ML IV ONE (06:45)
[2020-02-29] MEDS: INSULIN ASPART 100 UNITS/ML 3 ML PEN SC SCH ×4 (07:39→20:37)
[2020-02-29] MEDS: LORazepam 1 MG/2 ML VIAL IV PRN (07:43)
--- NOTE | 2020-02-29 08:41 | Critical Care Progress Note ---
Date of Service February 29, 2020 Assessment & Plan (1) Acute renal failure (ARF): --Acute renal failure Making good amount of urine Likely prerenal from severe DKA with a component of ATN Strict in and out Avoid nephrotoxic medication Nephrology on board follow-up recommendations -- HAGMA Delta-delta: Less than 1 --> gap plus non-gap Gap likely from elevated BUN, non-gap likely from urinary source Monitor --DKA New onset DKA, blood sugar admission 702 Titrate off insulin drip when possible. BMP every 4 hours Continue with IV fluids --Alcohol withdrawal On [facility] protocol Getting Ativan as needed --Macrocytic anemia Monitor H&H Transfuse if hemoglobin less than 7 --Elevated liver enzymes Meld score 26, 19.6% mortality in the next 3 months Discriminant factor: 2.9 Likely from alcohol abuse Monitor LFTs Alcohol withdrawal protocol as per [facility] --Acute pancreatitis Likely secondary to alcohol abuse Patient tolerating p.o. diet --Status post metabolic encephalopathy Likely secondary to severe acidosis on top of uremia TSH 0.88, UDS negative Improved Monitor --UTI Pansensitive E. coli and Klebsiella Start levofloxacin for the time being, QTc 4 and 39 --Prophylaxis VTE: Compression boots given thrombocytopenia GI: Pepcid Lines: Peripheral, positive Smart Diet: Diabetic Plan: In/out: +4.4 L, urine output 2.8 L Creatinine is gradually improving. Patient is making good amount of urine. Patient is significant positive balance. We will see how the in and out is at the end of the shift if she is significantly positive balance we will give her a dose of Lasix. Continue with 2 mg of Ativan every 4 hours as needed agitation/restlessness for alcohol withdrawal. If the frequency of Ativan is increased, will put a standing order of Ativan instead. Go down on IV fluids to 125 ml/ hour. Based on the urine output I will gradually go down to 75 mL/hr. H&H has been stable. 8.7 today. I have personally spent 36 minutes of critical care time in the direct management of this patient. This is a life/limb threatening event. This includes time spent evaluating patient, direct bedside care, chart review, placing orders, interpretation of diagnostic studies, discussion with consultants, patient, and family members, as well as other required patient management activities. This time is exclusive of all separately billable procedures, and teaching time and separate from and in addition to any other critical care service time. Please note the above document was generated using voice recognition software. It may contain grammatical, syntax or spelling errors. (2) DKA (diabetic ketoacidoses): (3) Acute pancreatitis: (4) Elevated LFTs: (5) Acidosis, metabolic: Admission and Anticipated Discharge Date Admission Date: February 27, 2020 Subjective Patient seen and examined at bedside. No acute distress, no adverse events overnight. Patient is on low-dose insulin drip to maintain her blood sugar as per the ICU protocol. Patient denies any chest pain, no shortness of breath, patient is able to have diet now. Denies any nausea or vomiting. She did get Ativan 20 minutes prior to me examining her so she was a bit drowsy at the time of examination but answering all the questions appropriately. Review of Systems Review of Systems: All systems reviewed & are unremarkable except as noted in Subjective Physical Exam Physical Exam: Constitutional: No acute distress HEENT: EOMI, PERRLA Respiratory system: Decreased air entry bilaterally, no wheeze, rhonchi, mild crackles bilateral lower lobes CVS: S1-S2 positive, no murmurs or gallops Abdomen: Soft, nontender, positive bowel sounds x4, distended not tense, obese Extremities: +2 pulses bilaterally radialis/ dorsalis pedis, no cyanosis, no edema Neuro: Awake alert oriented x3 Psych: Normal mood and affect G/U: Positive Smart Skin: no rashes, warm and dry Lymphatic: no cervical or axillary lymphadenopathy Results & Data Results & Data ([facility]) Vital Signs (Past 12 Hours) Vital Signs Temp Pulse Resp BP Pulse Ox 02/29/20 08:08 36.7 C 111 H 25 H 128/88 99 02/29/20 07:09 99 H 19 109/83 100 02/29/20 06:00 93 H 23 134/87 100 02/29/20 05:00 88 24 133/90 98 02/29/20 04:00 37.1 C 92 H 19 123/89 95 02/29/20 03:00 85 22 138/96 97 02/29/20 02:00 92 H 22 142/76 H 98 02/29/20 01:00 99 H 22 123/84 99 02/29/20 00:00 37.5 C 100 H 21 139/94 98 02/28/20 23:00 105 H 24 134/86 100 02/28/20 22:00 100 H 23 137/77 99 02/28/20 21:00 94 H 23 136/87 99 02/29/20 03:11 Coding Level of Care Code Critical Care 1st 30-74 mins Diagnoses Acute renal failure (ARF) N17.9 DKA (diabetic ketoacidoses) E10.10 Diabetes mellitus complication detail: without coma Diabetes mellitus type: type 1 Acute pancreatitis K85.20 Acute pancreatitis complication: unspecified Pancreatitis type: alcohol induced Elevated LFTs R79.89 Acidosis, metabolic E87.2 Time Spent (min) 36 (1) DKA (diabetic ketoacidoses) Diabetes mellitus complication detail: without coma Diabetes mellitus type: type 1 Qualified Code(s): E10.10 - Type 1 diabetes mellitus with ketoacidosis without coma (2) Acute pancreatitis Acute pancreatitis complication: unspecified Pancreatitis type: alcohol induced Qualified Code(s): K85.20 - Alcohol induced acute pancreatitis without necrosis or infection
[2020-02-29 08:47] LABS: BUN Creatinine Ratio 23.5 (10-20); Creatinine Clr Calc Pharmacy 17.5 ml/min; Est GFR (African American) 13.8; Est GFR (Non-African American) 11.9; Phosphorus 3.9 mg/dl (2.5-4.9)
[2020-02-29] MEDS ORDERED: MULTIVITAMIN TAB PO ONE (10:15)
[2020-02-29] MEDS ORDERED: INSULIN GLARGINE SOLOSTAR 100 UNITS/ML 3 ML PEN SC ONE (10:15)
[2020-02-29] MEDS ORDERED: THIAMINE HCL 100 MG TAB PO ONE (10:15)
[2020-02-29] MEDS ORDERED: FOLIC ACID 1 MG TAB PO ONE (10:15)
--- NOTE | 2020-02-29 10:38 | Pharmacy Report ---
Pharmacy Glycemic Short Note 2 - Date of Service February 29, 2020 - Glycemic Short BSG Results (Last 24 hours): 02/28/20 02/28/20 02/28/20 11:19 11:27 13:29 Glucose 173 H POC Glucose 173 H 158 H 02/28/20 02/28/20 02/28/20 15:35 16:21 16:47 Glucose 107 H POC Glucose 108 H 121 H 02/28/20 02/28/20 02/28/20 17:59 19:01 20:32 Glucose 213 H POC Glucose 195 H 277 H 02/28/20 02/28/20 02/28/20 21:37 22:38 22:41 Glucose 175 H POC Glucose 279 H 177 H 02/28/20 02/29/20 02/29/20 23:27 00:31 01:00 Glucose POC Glucose 173 H 115 H 109 H 02/29/20 02/29/20 02/29/20 01:33 02:24 03:11 Glucose 109 H POC Glucose 143 H 136 H 02/29/20 02/29/20 02/29/20 03:29 04:06 05:27 Glucose POC Glucose 106 H 126 H 176 H 02/29/20 02/29/20 02/29/20 06:38 07:21 07:29 Glucose 153 H POC Glucose 172 H 160 H 02/29/20 08:38 Glucose POC Glucose 147 H OUTPATIENT ANTIDIABETIC REGIMEN: * N/A * A1c = 5.8% 02/28/20 ASSESSMENT: * Pre-diabetic admitted for severe DKA, non-oligouric REG, and pancreatitis in the setting of heavy alcohol intake. Initial clinical presentation may have also been muddied by alcoholic ketoacidosis * Patient was treated w/ aggressive fluid resuscitation, IV insulin infusion and e-lyte replacement * Mild AG acidosis continues, NAGMA also present today - possibly due to REG and hyperchloremia - of note, serum ketones had normalized on yesterday's labs. * Insulin drip continues at this time, however may transition to SQ as metabolic abnormalities explainable by other dz processes * Initial insulin doses will be based upon patient weight and "mild-moderate" stress level. I am hesitant to give higher doses due to A1c 5.8%, significant renal impairment (but improving) and uncertain PO intake. If underlying pancreatitis leading to impaired insulin production, pt may behave like type 1 when stressed. PLAN FOR INPATIENT GLYCEMIC CONTROL: * DC insulin infusion today with next dose of Lantus - of note, a single dose of Lantus 20 units given at ~1800 yesterday. Minimal overlap required given current infusion rates and BSGs. * Basal insulin * Lantus 20 units SQ daily * Bolus insulin * NovoLog per scale ACHS or Q4hrs initially * Goal Range: Low 110 mg/dL - High 140 mg/dL * Correction Factor: 25 mg/dL/unit * Nutritional / Prandial insulin per carb ratio of 1 unit per 8 grams CHO consumed PLAN FOR DISCHARGE: * To be determined. Given patient's presentation was DKA, discharge on insulin w/ close endocrinology f/u warranted.
[2020-02-29] MEDS: FAMOTIDINE 40 MG TABLET PO SCH (10:40)
[2020-02-29] MEDS: LORazepam 2 MG/4 ML VIAL IV PRN ×3 (11:05→16:41)
--- NOTE | 2020-02-29 11:10 | Nephrology Progress Note ---
Date of Service February 29, 2020 Assessment & Plan (1) Acute renal failure (ARF): from [facility]N in [place] setting of pancreatitis and complicated by severe prerenal process with DKA. hemodynamically stable and with appropriate urine output. Presenting creatinine 7.8 on 02/26; baseline creatinine 0.8. on 02/28, creatinine 4.2. improving but still dramatically elevated BUN> down from 140s at admission to 100 this am. Also with heme + stool which may contribute to BUN elevation. AG attributable to renal failure at this point. cannot assess acid base status adequately without ABG > at this point no ABG needed given her clinical improvement Currently on NS with 20 mEq/L K at 125 mL hourly and insulin gtt just stopped >>>based on review of noon labs with K 3.6, bicarb 14, hyperchloremia > >changed IVF to 1/2 NS with 75 mEq/L sodium bicarb and 20 mEq / L K same rate -continue BMP q 6-8 hrs along with phos and mag and hgb -cont to avoid nephrotoxins -no indication for dialysis Present on Admission?: Yes (2) Electrolyte and fluid disorder: Chemistries this am remarkable for hyperchloremia, ongoing low bicarb in mid teens (has been in this range since shortly after admission). >on K rich fluids >> follow up recheck of K and mag compromised by hemolysis Present on Admission?: Yes Admission and Anticipated Discharge Date Admission Date: February 27, 2020 Subjective received 2 mg ativan IV about 10 min before I evaluated her; pt per nursing report had been awake, tremulous, trying to get out of bed one hour ago. somnolent at my eval. had 2 tarry BM this am. ins gtt ahd just been shut off when I evaluated her Review of Systems Review of Systems: Unobtainable due to reduced consciousness Physical Exam Constitutional: well developed, well nourished and + obese; no acute distress Eyes: + anicteric sclerae ENMT: Ears: no external ear abnormality Nose: no external nose abnormality Mouth: + dry oral mucous membranes Neck: no nuchal rigidity Respiratory: normal respiratory effort Auscultation: lungs clear to auscultation bilaterally and + diminished lung sounds Cardiovascular: Rate/Rhythm: + tachycardic Extremities: no edema Gastrointestinal (Abdomen): Inspection/Auscultation: normal bowel sounds Percussion/Palpation: abdomen soft; abdomen nontender Musculoskeletal: good Skin: no rashes, warm and dry Neurologic: good, no tremor Genitourinary: cullen wtih ample urine Results & Data ([facility]) Vital Signs (Past 12 Hours) Vital Signs Temp Pulse Resp BP Pulse Ox 02/29/20 11:00 36.8 C 02/29/20 10:00 92 H 21 96 02/29/20 09:08 95 H 20 125/86 97 02/29/20 08:08 36.7 C 111 H 25 H 128/88 99 02/29/20 07:09 99 H 19 109/83 100 02/29/20 06:00 93 H 23 134/87 100 02/29/20 05:00 88 24 133/90 98 02/29/20 04:00 37.1 C 92 H 19 123/89 95 02/29/20 03:00 85 22 138/96 97 02/29/20 02:00 92 H 22 142/76 H 98 02/29/20 01:00 99 H 22 123/84 99 02/29/20 00:00 37.5 C 100 H 21 139/94 98 Laboratory Results 02/29/20 03:11 02/29/20 07:29
[2020-02-29 12:20] LABS: Hematocrit (blood only) 25.7 % (37-47); Hemoglobin 8.8 g/dL (12.0-16.0)
[2020-02-29 12:43] LABS: BUN Creatinine Ratio 23.7 (10-20); Creatinine Clr Calc Pharmacy 18.9 ml/min; Est GFR (African American) 15.2; Est GFR (Non-African American) 13.1; Phosphorus 3.9 mg/dl (2.5-4.9); Potassium 3.6 mmol/L (3.5-5.1)
[2020-02-29] MEDS ORDERED: Nursing to Pharmacy Communication SCH (13:30)
--- NOTE | 2020-02-29 14:41 | Gastroenterology Progress Note ---
Date of Service February 29, 2020 Assessment & Plan (1) Acute pancreatitis: 44 y/o female with PMhx ETOh abuse, ETOH withdrawal, asthma, panic disorder, admitted with AMS, REG, DKA, UTI, anemia, and GI consulted for recurrent pancreatitis, elevated LFTs, ETOH withdrawal, coffee ground emesis, and CT noting acute pancreatitis. Today she is somnolent, arouses briefly to voice. Labs with LFts that are trending down, HGB 11->8.8, though BUN improved 140s->93 since admission, and nursing noted black loose stool since admission. Lipase 700-> 300, creatinine improved 7.6->3.9. On exam she is lethargic, ? DTs with tremor, being tx with Ativan. - Pancreatitis, acutely elevated LFTs appear to be clinically improving. In conjunction with tx her REG, DKA, continue IVF. Once acute symptoms, improve can start with clear liquid diet - Continue CIWA protocol, tx for ETOH withdrawal - Would monitor GI output and trend H&H, transfuse PRN - HGB down slightly since admission and she's having black stools; may arrange for EGD prior to discharge in the event her acute AMS and significant other co- morbidities improve, unless significant GIB occurs before then - Continue daily PPI - Pt should pursue ETOH rehab with strict ETOH avoidance (2) Alcoholism: (3) Elevated LFTs: Admission and Anticipated Discharge Date Admission Date: February 27, 2020 Supervising Physician Co-Signing Physician Notes I performed a history and physical examination of the patient today, including specifically on physical exam - soft abdomen. I have discussed the patient's management with the advanced practitioner. Please refer to the nurse practitioner's note for the documented findings and plan of care. Currently in DTs and REG. H/H stable, no overt GI bleeding. Continue PPI and fluids. Alcohol cessation. Would benefit from elective EGD at some point, can be as OP or prior to discharge. Recall GI if needed. Subjective Pt seen and examined. She is very lethargic limiting HPI. She's being tx with Ativan. Review of Systems Review of Systems: Unobtainable due to cognitive status Physical Exam Constitutional: + ill appearing; no acute distress Eyes: + anicteric sclerae Respiratory: normal respiratory effort Cardiovascular: tachycardic Gastrointestinal (Abdomen): Inspection/Auscultation: abdomen normal to inspection; abdomen not distended Percussion/Palpation: abdomen soft; abdomen nontender Skin: no rashes, warm and dry Psychiatric: lethargic; opens eyes briefly to loud voice; tremor noted Results & Data ([facility]) Vital Signs (Past 12 Hours) Vital Signs Temp Pulse Resp BP Pulse Ox 02/29/20 14:18 101 H 25 H 133/87 100 02/29/20 13:09 85 20 129/100 100 02/29/20 12:09 86 22 133/88 99 02/29/20 11:09 91 H 27 H 121/50 L 99 02/29/20 11:00 36.8 C 02/29/20 10:08 91 H 23 128/90 98 02/29/20 10:00 92 H 21 96 02/29/20 09:08 95 H 20 125/86 97 02/29/20 08:08 36.7 C 111 H 25 H 128/88 99 02/29/20 07:09 99 H 19 109/83 100 02/29/20 06:00 93 H 23 134/87 100 02/29/20 05:00 88 24 133/90 98 02/29/20 04:00 37.1 C 92 H 19 123/89 95 02/29/20 03:00 85 22 138/96 97 Laboratory Results 02/29/20 02/29/20 02/29/20 Range/Units 11:59 11:59 10:57 Hgb 8.8 L (12.0-16.0) g/dL Hct 25.7 L (37-47) % VBG pH (7.36-7.41) Sodium 141 (136-145) mmol/L Potassium 3.6 (3.5-5.1) mmol/L Chloride 115 H (98-107) mmol/L Carbon Dioxide 14 L (21-32) mmol/L Anion Gap 12.0 H (3-11) BUN 93 H (7-18) mg/dl Creatinine 3.92 H D (0.6-1.2) mg/dl Est Cr Clr Drug Dosing 18.9 ml/min Est GFR ( Amer) 15.2 Est GFR (Non-Af Amer) 13.1 BUN/Creatinine Ratio 23.7 H (10-20) Glucose 139 H (70-99) mg/dl POC Glucose 137 H (70-99) mg/dl Calcium 9.0 (8.5-10.1) mg/dl Phosphorus 3.9 (2.5-4.9) mg/dl Magnesium 2.0 (1.8-2.4) mg/dl Beta-Hydroxybutyric Acd (0.2-2.81) mg/dl Stool Occult Bld Scrn (Negative) 02/29/20 02/29/20 02/29/20 Range/Units 08:38 07:29 07:21 Hgb (12.0-16.0) g/dL Hct (37-47) % VBG pH (7.36-7.41) Sodium 139 (136-145) mmol/L Potassium (3.5-5.1) mmol/L Chloride 112 H (98-107) mmol/L Carbon Dioxide 15 L (21-32) mmol/L Anion Gap 12.0 H (3-11) BUN 100 H (7-18) mg/dl Creatinine 4.24 H D (0.6-1.2) mg/dl Est Cr Clr Drug Dosing 17.5 ml/min Est GFR ( Amer) 13.8 Est GFR (Non-Af Amer) 11.9 BUN/Creatinine Ratio 23.5 H (10-20) Glucose 153 H (70-99) mg/dl POC Glucose 147 H 160 H (70-99) mg/dl Calcium 9.0 (8.5-10.1) mg/dl Phosphorus 3.9 D (2.5-4.9) mg/dl Magnesium (1.8-2.4) mg/dl Beta-Hydroxybutyric Acd (0.2-2.81) mg/dl Stool Occult Bld Scrn (Negative) 02/29/20 02/29/20 02/29/20 Range/Units 06:38 05:27 04:06 Hgb (12.0-16.0) g/dL Hct (37-47) % VBG pH (7.36-7.41) Sodium (136-145) mmol/L Potassium (3.5-5.1) mmol/L Chloride (98-107) mmol/L Carbon Dioxide (21-32) mmol/L Anion Gap (3-11) BUN (7-18) mg/dl Creatinine (0.6-1.2) mg/dl Est Cr Clr Drug Dosing ml/min Est GFR ( Amer) Est GFR (Non-Af Amer) BUN/Creatinine Ratio (10-20) Glucose (70-99) mg/dl POC Glucose 172 H 176 H 126 H (70-99) mg/dl Calcium (8.5-10.1) mg/dl Phosphorus (2.5-4.9) mg/dl Magnesium (1.8-2.4) mg/dl Beta-Hydroxybutyric Acd (0.2-2.81) mg/dl Stool Occult Bld Scrn (Negative) 02/29/20 02/29/20 02/29/20 Range/Units 03:29 03:11 03:11 Hgb 8.7 L (12.0-16.0) g/dL Hct 25.6 L (37-47) % VBG pH (7.36-7.41) Sodium 139 (136-145) mmol/L Potassium 3.8 (3.5-5.1) mmol/L Chloride 113 H (98-107) mmol/L Carbon Dioxide 14 L (21-32) mmol/L Anion Gap 12.0 H (3-11) BUN 108 H (7-18) mg/dl Creatinine 4.59 H* D (0.6-1.2) mg/dl Est Cr Clr Drug Dosing 15.5 ml/min Est GFR ( Amer) 12.6 Est GFR (Non-Af Amer) 10.8 BUN/Creatinine Ratio 23.5 H (10-20) Glucose 109 H (70-99) mg/dl POC Glucose 106 H (70-99) mg/dl Calcium 8.8 (8.5-10.1) mg/dl Phosphorus 2.7 D (2.5-4.9) mg/dl Magnesium 2.0 (1.8-2.4) mg/dl Beta-Hydroxybutyric Acd (0.2-2.81) mg/dl Stool Occult Bld Scrn (Negative) 02/29/20 02/29/20 02/29/20 Range/Units 02:24 01:33 01:00 Hgb (12.0-16.0) g/dL Hct (37-47) % VBG pH (7.36-7.41) Sodium (136-145) mmol/L Potassium (3.5-5.1) mmol/L Chloride (98-107) mmol/L Carbon Dioxide (21-32) mmol/L Anion Gap (3-11) BUN (7-18) mg/dl Creatinine (0.6-1.2) mg/dl Est Cr Clr Drug Dosing ml/min Est GFR ( Amer) Est GFR (Non-Af Amer) BUN/Creatinine Ratio (10-20) Glucose (70-99) mg/dl POC Glucose 136 H 143 H 109 H (70-99) mg/dl Calcium (8.5-10.1) mg/dl Phosphorus (2.5-4.9) mg/dl Magnesium (1.8-2.4) mg/dl Beta-Hydroxybutyric Acd (0.2-2.81) mg/dl Stool Occult Bld Scrn (Negative) 02/29/20 02/29/20 02/28/20 Range/Units 00:31 00:10 23:27 Hgb (12.0-16.0) g/dL Hct (37-47) % VBG pH (7.36-7.41) Sodium (136-145) mmol/L Potassium 3.5 (3.5-5.1) mmol/L Chloride (98-107) mmol/L Carbon Dioxide (21-32) mmol/L Anion Gap (3-11) BUN (7-18) mg/dl Creatinine (0.6-1.2) mg/dl Est Cr Clr Drug Dosing ml/min Est GFR ( Amer) Est GFR (Non-Af Amer) BUN/Creatinine Ratio (10-20) Glucose (70-99) mg/dl POC Glucose 115 H 173 H (70-99) mg/dl Calcium (8.5-10.1) mg/dl Phosphorus (2.5-4.9) mg/dl Magnesium 2.1 (1.8-2.4) mg/dl Beta-Hydroxybutyric Acd (0.2-2.81) mg/dl Stool Occult Bld Scrn (Negative) 02/28/20 02/28/20 02/28/20 Range/Units 22:41 22:38 22:00 Hgb (12.0-16.0) g/dL Hct (37-47) % VBG pH (7.36-7.41) Sodium 135 L (136-145) mmol/L Potassium (3.5-5.1) mmol/L Chloride 107 (98-107) mmol/L Carbon Dioxide 13 L (21-32) mmol/L Anion Gap 15.0 H (3-11) BUN 115 H (7-18) mg/dl Creatinine 5.05 H* (0.6-1.2) mg/dl Est Cr Clr Drug Dosing 14.1 ml/min Est GFR ( Amer) 11.2 Est GFR (Non-Af Amer) 9.7 BUN/Creatinine Ratio 22.7 H (10-20) Glucose 175 H (70-99) mg/dl POC Glucose 177 H (70-99) mg/dl Calcium 9.0 (8.5-10.1) mg/dl Phosphorus 1.4 L* (2.5-4.9) mg/dl Magnesium (1.8-2.4) mg/dl Beta-Hydroxybutyric Acd (0.2-2.81) mg/dl Stool Occult Bld Scrn Positive A (Negative) 02/28/20 02/28/20 02/28/20 Range/Units 21:37 20:32 19:01 Hgb (12.0-16.0) g/dL Hct (37-47) % VBG pH (7.36-7.41) Sodium 133 L (136-145) mmol/L Potassium 4.0 (3.5-5.1) mmol/L Chloride 104 (98-107) mmol/L Carbon Dioxide 15 L (21-32) mmol/L Anion Gap 14.0 H (3-11) BUN 118 H (7-18) mg/dl Creatinine 5.14 H* D (0.6-1.2) mg/dl Est Cr Clr Drug Dosing 13.8 ml/min Est GFR ( Amer) 11.0 Est GFR (Non-Af Amer) 9.5 BUN/Creatinine Ratio 22.8 H (10-20) Glucose 213 H (70-99) mg/dl POC Glucose 279 H 277 H (70-99) mg/dl Calcium 9.0 (8.5-10.1) mg/dl Phosphorus 2.1 L (2.5-4.9) mg/dl Magnesium 2.4 (1.8-2.4) mg/dl Beta-Hydroxybutyric Acd (0.2-2.81) mg/dl Stool Occult Bld Scrn (Negative) 02/28/20 02/28/20 02/28/20 Range/Units 17:59 16:47 16:21 Hgb (12.0-16.0) g/dL Hct (37-47) % VBG pH (7.36-7.41) Sodium (136-145) mmol/L Potassium (3.5-5.1) mmol/L Chloride (98-107) mmol/L Carbon Dioxide (21-32) mmol/L Anion Gap (3-11) BUN (7-18) mg/dl Creatinine (0.6-1.2) mg/dl Est Cr Clr Drug Dosing ml/min Est GFR ( Amer) Est GFR (Non-Af Amer) BUN/Creatinine Ratio (10-20) Glucose (70-99) mg/dl POC Glucose 195 H 121 H 108 H (70-99) mg/dl Calcium (8.5-10.1) mg/dl Phosphorus (2.5-4.9) mg/dl Magnesium (1.8-2.4) mg/dl Beta-Hydroxybutyric Acd (0.2-2.81) mg/dl Stool Occult Bld Scrn (Negative) 02/28/20 02/28/20 Range/Units 15:35 15:35 Hgb (12.0-16.0) g/dL Hct (37-47) % VBG pH 7.37 (7.36-7.41) Sodium 133 L (136-145) mmol/L Potassium 3.7 (3.5-5.1) mmol/L Chloride 103 (98-107) mmol/L Carbon Dioxide 15 L (21-32) mmol/L Anion Gap 15.0 H (3-11) BUN 122 H (7-18) mg/dl Creatinine 5.67 H* D (0.6-1.2) mg/dl Est Cr Clr Drug Dosing 12.5 ml/min Est GFR ( Amer) 9.7 Est GFR (Non-Af Amer) 8.4 BUN/Creatinine Ratio 21.6 H (10-20) Glucose 107 H (70-99) mg/dl POC Glucose (70-99) mg/dl Calcium 9.0 (8.5-10.1) mg/dl Phosphorus 2.2 L (2.5-4.9) mg/dl Magnesium 2.3 (1.8-2.4) mg/dl Beta-Hydroxybutyric Acd 1.39 (0.2-2.81) mg/dl Stool Occult Bld Scrn (Negative) (1) Acute pancreatitis Acute pancreatitis complication: unspecified Pancreatitis type: alcohol induced Qualified Code(s): K85.20 - Alcohol induced acute pancreatitis without necrosis or infection
[2020-02-29] MEDS: PANTOprazole 40 MG in SYRINGE 0 ML IV SCH (16:41)
[2020-02-29] MEDS: SODIUM BICARBONATE IV SCH (18:24)
[2020-02-29] MEDS: [UNRECOGNIZED DRUG - OTHER] IV SCH (18:24)
[2020-02-29] MEDS: LORazepam 1 MG TAB PO SCH (18:24)
[2020-02-29] MEDS: POTASSIUM CHLORIDE IV SCH (18:24)
[2020-02-29 18:34] LABS: BUN Creatinine Ratio 23.7 (10-20); Calcium 9.4 mg/dl (8.5-10.1); Creatinine Clr Calc Pharmacy 19.9 ml/min; Est GFR (African American) 16.2; Magnesium 1.9 mg/dl (1.8-2.4); Potassium 3.5 mmol/L (3.5-5.1)
[2020-02-29 18:35] LABS: Phosphorus 3.7 mg/dl (2.5-4.9)
--- NOTE | 2020-02-29 19:05 | Hospitalist Progress Note ---
Date of Service February 29, 2020 Assessment & Plan (1) Hyperglycemia: Random glucose 702 at time of admission with associated metabolic acidosis and REG. No history of DM. Hgb A1c 5.8. May have DM type 1 due to pancreatitis. Management of DKA per protocol. Glucose this morning 153. Manage as DM type 1 despite normal Hgb A1c. Will need DM education / support. (2) Acidosis, metabolic: AG metabolic acidosis, probably due to DKA. (3) REG (acute kidney injury): Serum creatinine at time of admission 7.76. No history of CKD; baseline creatinine ~ 0.29 November 2019. No apparent urinary tract obstruction per CT. Nephrology consulted. Suspected ATN. Urine output improved. Receiving IV fluids. Creatinine today = 4.24. (4) Acute pancreatitis: Hospitalized with acute pancreatitis November 2019. CT in ED 02/26 demonstrated interstitial and peripancreatic edema consistent with acute pancreatitis. Serum lipase 778 in ED. GI consulted. IV fluids, analgesics, antiemetics. (5) Nausea and vomiting: N&V could be secondary to pancreatitis, gastritis, alcohol withdrawal. Reported possible coffee ground emesis. Continue PPI and anti-emetics. GI consulted. (6) Alcohol withdrawal: History of heavy alcohol consumption. Last drink was apparently a few days prior to admission. Blood alcohol level at time of admission was undetectable. Received thiamine, folic acid, MVI in ED. Continue thiamine and folate. Monitor for signs / symptoms of withdrawal. Ordered lorazepam PRN. Consider initiating gabapentin protocol. (7) Alcoholism: Ongoing counseling / support. (8) Metabolic encephalopathy: Probable metabolic encephalopathy secondary to alcohol withdrawal and DKA. Management of specific problems as noted. Thiamine replacement. (9) MRSA (methicillin resistant Staphylococcus aureus) carrier: Nasal MRSA screen positive. Contact isolation. (10) Bacteriuria: UA showed negative nitrates, trace leukocyte esterase, 5-10 WBC's, many epithelial cells. Urine culture growing gram negative bacilli = E coli & Klebs pneumonia. Receiving levofloxacin. (11) DVT prophylaxis: No anticoagulants at this time due to possible UGI bleed. SCD's. Ambulate as able. (12) Discharge planning issues: Discharge disposition to be determined. Would benefit from rehab if pt consents. Family Medicine follow-up with Dr. Whatley. Admission and Anticipated Discharge Date Admission Date: February 27, 2020 Subjective Recheck for multiple problems. Patient seen in their room around 1520. Blood sugars improved. Confused. Denies hallucinations. Denies abd pain, nausea, vomiting, diarrhea. Urine output improved. Review of Systems: (questionable reliability) Constitutional- no fever. Cardiac- no chest pain. Pulmonary- no cough or SOB. GI- as noted above. - Smart cath. Otherwise, as noted above. Physical Exam Constitutional: + ill appearing; no acute distress Eyes: + anicteric sclerae Respiratory: no respiratory distress Auscultation: lungs clear to auscultation bilaterally Cardiovascular: Rate/Rhythm: regular rate and regular rhythm Vessels: no JVD Extremities: no calf tenderness and no edema Gastrointestinal (Abdomen): Inspection/Auscultation: + abdomen distended; + abnormal bowel sounds (quiet) Percussion/Palpation: abdomen soft; abdomen nontender Skin: no rashes, warm and dry Psychiatric: Orientation: + not oriented x 3 Genitourinary: + bladder abnormality (Smart cath) Results & Data Results & [facility] ([facility]) Vital Signs (Past 12 Hours) Vital Signs Temp Pulse Resp BP Pulse Ox 02/29/20 18:09 84 23 131/86 97 02/29/20 18:00 106 H 18 98 02/29/20 17:09 90 24 110/71 99 02/29/20 17:00 87 19 100 02/29/20 16:09 36.7 C 110 H 23 130/87 100 02/29/20 15:09 93 H 19 117/68 96 02/29/20 14:18 101 H 25 H 133/87 100 02/29/20 13:09 85 20 129/100 100 02/29/20 12:09 86 22 133/88 99 02/29/20 11:09 91 H 27 H 121/50 L 99 02/29/20 11:00 36.8 C 02/29/20 10:08 91 H 23 128/90 98 02/29/20 10:00 92 H 21 96 02/29/20 09:08 95 H 20 125/86 97 02/29/20 08:08 36.7 C 111 H 25 H 128/88 99 02/29/20 07:09 99 H 19 109/83 100 Laboratory Results Laboratory Results - last 24 hr 02/28/20 02/28/20 02/28/20 19:01 20:32 21:37 Hgb Hct Sodium 133 L Potassium 4.0 Chloride 104 Carbon Dioxide 15 L Anion Gap 14.0 H BUN 118 H Creatinine 5.14 H* D Est Cr Clr Drug Dosing 13.8 Est GFR ( Amer) 11.0 Est GFR (Non-Af Amer) 9.5 BUN/Creatinine Ratio 22.8 H Glucose 213 H POC Glucose 277 H 279 H Calcium 9.0 Phosphorus 2.1 L Magnesium 2.4 Stool Occult Bld Scrn 02/28/20 02/28/20 02/28/20 22:00 22:38 22:41 Hgb Hct Sodium 135 L Potassium Chloride 107 Carbon Dioxide 13 L Anion Gap 15.0 H BUN 115 H Creatinine 5.05 H* Est Cr Clr Drug Dosing 14.1 Est GFR ( Amer) 11.2 Est GFR (Non-Af Amer) 9.7 BUN/Creatinine Ratio 22.7 H Glucose 175 H POC Glucose 177 H Calcium 9.0 Phosphorus 1.4 L* Magnesium Stool Occult Bld Scrn Positive A 02/28/20 02/29/20 02/29/20 23:27 00:10 00:31 Hgb Hct Sodium Potassium 3.5 Chloride Carbon Dioxide Anion Gap BUN Creatinine Est Cr Clr Drug Dosing Est GFR ( Amer) Est GFR (Non-Af Amer) BUN/Creatinine Ratio Glucose POC Glucose 173 H 115 H Calcium Phosphorus Magnesium 2.1 Stool Occult Bld Scrn 02/29/20 02/29/20 02/29/20 01:00 01:33 02:24 Hgb Hct Sodium Potassium Chloride Carbon Dioxide Anion Gap BUN Creatinine Est Cr Clr Drug Dosing Est GFR ( Amer) Est GFR (Non-Af Amer) BUN/Creatinine Ratio Glucose POC Glucose 109 H 143 H 136 H Calcium Phosphorus Magnesium Stool Occult Bld Scrn 02/29/20 02/29/20 02/29/20 03:11 03:11 03:29 Hgb 8.7 L Hct 25.6 L Sodium 139 Potassium 3.8 Chloride 113 H Carbon Dioxide 14 L Anion Gap 12.0 H BUN 108 H Creatinine 4.59 H* D Est Cr Clr Drug Dosing 15.5 Est GFR ( Amer) 12.6 Est GFR (Non-Af Amer) 10.8 BUN/Creatinine Ratio 23.5 H Glucose 109 H POC Glucose 106 H Calcium 8.8 Phosphorus 2.7 D Magnesium 2.0 Stool Occult Bld Scrn 02/29/20 02/29/20 02/29/20 04:06 05:27 06:38 Hgb Hct Sodium Potassium Chloride Carbon Dioxide Anion Gap BUN Creatinine Est Cr Clr Drug Dosing Est GFR ( Amer) Est GFR (Non-Af Amer) BUN/Creatinine Ratio Glucose POC Glucose 126 H 176 H 172 H Calcium Phosphorus Magnesium Stool Occult Bld Scrn 02/29/20 02/29/20 02/29/20 07:21 07:29 08:38 Hgb Hct Sodium 139 Potassium Chloride 112 H Carbon Dioxide 15 L Anion Gap 12.0 H BUN 100 H Creatinine 4.24 H D Est Cr Clr Drug Dosing 17.5 Est GFR ( Amer) 13.8 Est GFR (Non-Af Amer) 11.9 BUN/Creatinine Ratio 23.5 H Glucose 153 H POC Glucose 160 H 147 H Calcium 9.0 Phosphorus 3.9 D Magnesium Stool Occult Bld Scrn 02/29/20 02/29/20 02/29/20 10:57 11:59 11:59 Hgb 8.8 L Hct 25.7 L Sodium 141 Potassium 3.6 Chloride 115 H Carbon Dioxide 14 L Anion Gap 12.0 H BUN 93 H Creatinine 3.92 H D Est Cr Clr Drug Dosing 18.9 Est GFR ( Amer) 15.2 Est GFR (Non-Af Amer) 13.1 BUN/Creatinine Ratio 23.7 H Glucose 139 H POC Glucose 137 H Calcium 9.0 Phosphorus 3.9 Magnesium 2.0 Stool Occult Bld Scrn 02/29/20 02/29/20 16:41 18:04 Hgb Hct Sodium 142 Potassium 3.5 Chloride 117 H Carbon Dioxide 16 L Anion Gap 9.0 BUN 88 H Creatinine 3.72 H Est Cr Clr Drug Dosing 19.9 Est GFR ( Amer) 16.2 Est GFR (Non-Af Amer) 14.0 BUN/Creatinine Ratio 23.7 H Glucose 112 H POC Glucose 167 H Calcium 9.4 Phosphorus 3.7 Magnesium 1.9 Stool Occult Bld Scrn Microbiology 02/27/20 14:10 Blood Aerobic Blood Culture - Preliminary No growth in Aerobic bottle after 48 hours. 02/27/20 14:10 Blood Anaerobic Blood Culture - Preliminary No growth in Anaerobic bottle after 48 hours. 02/27/20 14:10 Blood Aerobic Blood Culture - Preliminary No growth in Aerobic bottle after 48 hours. 02/27/20 14:10 Blood Anaerobic Blood Culture - Preliminary No growth in Anaerobic bottle after 48 hours. 02/27/20 17:30 Urine,Clean Catch Urine Culture - Final Escherichia coli Klebsiella pneumoniae (1) Acute pancreatitis Acute pancreatitis complication: unspecified Pancreatitis type: alcohol induced Qualified Code(s): K85.20 - Alcohol induced acute pancreatitis without necrosis or infection
[2020-03-01] MEDS: LORazepam 1 MG TAB PO SCH ×2 (00:13→06:02)
[2020-03-01] MEDS ORDERED: LORazepam 2 MG/4 ML VIAL IV STA (00:44)
[2020-03-01 01:09] LABS: BUN Creatinine Ratio 24.8 (10-20); Calcium 9.5 mg/dl (8.5-10.1); Creatinine Clr Calc Pharmacy 22.2 ml/min; Est GFR (African American) 18.5; Est GFR (Non-African American) 15.9; Magnesium 1.9 mg/dl (1.8-2.4); Potassium 3.5 mmol/L (3.5-5.1)
[2020-03-01] MEDS ORDERED: INSULIN ASPART 100 UNITS/ML 3 ML PEN SC ONE (02:00)
[2020-03-01] MEDS: SODIUM BICARBONATE IV SCH ×2 (02:45→10:10)
[2020-03-01] MEDS: POTASSIUM CHLORIDE IV SCH ×2 (02:45→10:10)
[2020-03-01] MEDS: [UNRECOGNIZED DRUG - OTHER] IV SCH (02:45)
[2020-03-01 06:22] LABS: INR 1.2 (0.9-1.1); Prothrombin Time 12.2 Seconds (9.0-12.0)
[2020-03-01 06:31] LABS: Albumin Level 2.3 gm/dl (3.4-5.0); BUN Creatinine Ratio 24.2 (10-20); Bilirubin Direct 0.7 mg/dl (0-0.2); Calcium 9.5 mg/dl (8.5-10.1); Creatinine Clr Calc Pharmacy 23.3 ml/min; Est GFR (African American) 20.1; Est GFR (Non-African American) 17.4; Magnesium 1.8 mg/dl (1.8-2.4); Potassium 3.3 mmol/L (3.5-5.1)
[2020-03-01 06:33] LABS: Hematocrit (blood only) 27.9 % (37-47); Hemoglobin 9.3 g/dL (12.0-16.0); Mean Corpuscular Hemoglobin 33.5 pg (25-34); Mean Corpuscular Hgb Conc 33.3 g/dL (32-36); Mean Corpuscular Volume 100.4 fL (80-100); Mean Platelet Volume 10.4 fL (7.4-10.4); Platelet Count 157 K/uL (130-400); RDW Coefficient of Variation 16.5 % (11.5-14.5); RDW Standard Deviation 60.6 fL (36.4-46.3); Red Blood Count 2.78 M/uL (4.2-5.4); White Blood Count 5.91 K/uL (4.8-10.8)
[2020-03-01 06:34] LABS: Bilirubin,Total 1.1 mg/dl (0.2-1); Phosphorus 3.1 mg/dl (2.5-4.9); Total Protein 5.5 gm/dl (6.4-8.2)
[2020-03-01 06:35] LABS: ALC (manual) 0.67 K/uL (1.2-3.4); ANC (manual) 3.13 K/uL (1.4-6.5); Eosinophils # (manual) 0.21 K/uL (0-0.5); Eosinophils % (manual) 3.5 %; Lymphocytes # (manual) 0.67 K/uL (1.2-3.4); Lymphocytes % (manual) 11.3 %; Metamyelocytes # (manual) 0.36 K/uL (0-0); Metamyelocytes % (manual) 6.1 %; Monocytes # (manual) 0.72 K/uL (0.11-0.59); Monocytes % (manual) 12.2 %; Myelocytes # (manual) 0.82 K/uL (0-0); Myelocytes % (manual) 13.9 %; Neutrophils # (manual) 3.13 K/uL (1.4-6.5)
[2020-03-01] MEDS: INSULIN ASPART 100 UNITS/ML 3 ML PEN SC SCH ×4 (07:14→21:55)
--- NOTE | 2020-03-01 07:15 | Nephrology Progress Note ---
Date of Service March 01, 2020 Assessment & Plan (1) Acute renal failure (ARF): Nonoliguric stage III acute renal failure from ATN in the setting of pancreatitis and complicated by severe prerenal process with DKA. Hypertensive with mild tachycardia from alcohol withdrawal. Negative fluid balance noted past 24 hr; on whole 6.1L + this admission. Presenting creatinine 7.8 on 02/26; baseline creatinine 0.8. on 03/01, creatinine 3.1. improving but still dramatically elevated BUN> down from 140s at admission to 75 this am. Also with heme + stool which may contribute to BUN elevation. AG still borderline elevated when corrected for her albumin and in part from renal failure at this p oint. Also with significant non-anion gap acidosis from bowel movements cannot assess acid base status adequately without ABG > at this point no ABG needed given her clinical improvement. Hemoglobin stable Currently on N 1/2 NS with 75 mEq/L sodium bicarb and 20 mEq / L K at 125 mL hourly > changed after coordinating with ICU team to 1/2NS with 50 mEq/L sodium bicarb at 40 mEq/L K at 75 mL hourly this am and continued this PM -Recommend recheck chemistries early afternoon today along with phos >> reviewed adn cont current meds -Could wait until tomorrow to repeat mag and hgb unless clinical status changes -cont to avoid nephrotoxins -no indication for dialysis (2) Electrolyte and fluid disorder: Chemistries this am remarkable for hyperchloremia, ongoing low bicarb in mid teens (has been in this range since shortly after admission). >on K rich fluids >> also getting 40 mEq IV potassium and 2 g IV magnesium > Recheck basic metabolic panel midday and adjust fluids and electrolyte supplements as indicated >>reviewed Admission and Anticipated Discharge Date Admission Date: February 27, 2020 Subjective 10 bowel movements overnight and 2.4 L negative on intake and output as of this am at 0900 when I saw her. she had just had 5 mg IV ativan. had elevated awss score 26 earlier this am. Review of Systems Review of Systems: Unobtainable due to reduced consciousness Physical Exam Constitutional: well developed, well nourished and + obese; no acute distress on RA Eyes: + anicteric sclerae ENMT: Ears: no external ear abnormality Nose: no external nose abnormality Mouth: + dry oral mucous membranes Neck: no nuchal rigidity Respiratory: normal respiratory effort Auscultation: lungs clear to auscultation bilaterally and + diminished lung sounds Cardiovascular: Rate/Rhythm: + tachycardic Extremities: no edema Gastrointestinal (Abdomen): Inspection/Auscultation: normal bowel sounds Percussion/Palpation: abdomen soft; abdomen nontender Musculoskeletal: good Skin: no rashes, warm and dry Neurologic: moves all extremities Genitourinary: cullen w/ ample urine Results & Data ([facility]) Vital Signs (Past 12 Hours) Vital Signs Pulse Resp BP Pulse Ox 03/01/20 06:00 107 H 25 H 99 03/01/20 05:49 79 29 H 100 03/01/20 05:10 116 H 23 183/118 H 100 03/01/20 05:00 84 26 H 100 03/01/20 04:37 107 H 27 H 149/107 H 100 03/01/20 04:09 94 H 19 149/107 H 97 03/01/20 04:00 103 H 16 96 03/01/20 03:10 77 29 H 151/107 H 100 03/01/20 03:00 88 21 100 03/01/20 02:17 79 25 H 138/99 100 03/01/20 02:00 100 03/01/20 01:09 96 H 22 132/94 100 03/01/20 01:00 96 H 25 H 92 03/01/20 00:09 144/101 H 100 03/01/20 00:00 86 25 H 99 02/29/20 23:09 101 H 13 86/67 L 100 02/29/20 23:00 88 27 H 100 02/29/20 22:09 80 21 128/89 99 02/29/20 22:00 82 22 100 02/29/20 21:08 91 H 27 H 141/94 H 99 02/29/20 21:00 98 H 25 H 97 02/29/20 20:26 98 H 15 137/95 100 02/29/20 20:10 91 H 24 210/106 H 97 02/29/20 20:09 88 27 H 203/120 H 96 02/29/20 20:00 94 H 27 H 98 Laboratory Results 03/01/20 05:54 03/01/20 05:54
[2020-03-01] MEDS ORDERED: LORazepam 5 MG/10 ML VIAL IV SCH (08:00)
[2020-03-01] MEDS: POTASSIUM CHLORIDE / WTR 10 MEQ/100 ML PLCT IV SCH ×4 (08:06→11:07)
[2020-03-01] MEDS: THIAMINE HCL 100 MG TAB PO SCH (08:07)
[2020-03-01] MEDS: MULTIVITAMIN TAB PO SCH (08:07)
[2020-03-01] MEDS: FOLIC ACID 1 MG TAB PO SCH (08:07)
[2020-03-01] MEDS: MAGNESIUM SULFATE / D5W 1 GM/100 ML BAG IV SCH ×2 (08:07→10:10)
[2020-03-01] MEDS: PANTOprazole 40 MG in SYRINGE 0 ML IV SCH ×2 (08:08→19:40)
--- NOTE | 2020-03-01 09:16 | Critical Care Progress Note ---
Date of Service March 01, 2020 Assessment & Plan (1) Acute renal failure (ARF): --Alcohol withdrawal On Ativan [id number] Keep patient RASS -1 Patient is currently maintaining her airway. If there is any compromise in that will intubate the patient. --Acute renal failure Making good amount of urine Likely prerenal from severe DKA with a component of ATN Strict in and out Avoid nephrotoxic medication Nephrology on board follow-up recommendations --Status post DKA New onset DKA, blood sugar admission 702 Status post insulin drip ICU hyperglycemia protocol --Macrocytic anemia with melanotic stools Monitor H&H Transfuse if hemoglobin less than 7 Patient had melanotic stool but hemoglobin has been stable. GI on board. --Elevated liver enzymes Meld score 26, 19.6% mortality in the next 3 months Discriminant factor: 2.9 Likely from alcohol abuse Monitor LFTs --Acute pancreatitis Likely secondary to alcohol abuse Patient tolerating p.o. diet --Status post metabolic encephalopathy Likely secondary to severe acidosis on top of uremia TSH 0.88, UDS negative Improved Monitor --UTI Pansensitive E. coli and Klebsiella Start levofloxacin for the time being, QTc 439 --Hypernatremia with hyperchloremia Likely is from normal saline being used before. IV fluids have been changed to half NS Monitor --Prophylaxis VTE: Compression boots given thrombocytopenia GI: Protonix Lines: Peripheral, positive Smart Diet: Diabetic Plan: In/out: -2 L, urine output 5410 L Patient is negative balance. Creatinine is improving. Patient is making good amount of urine I think she is in diuretic phase from the ATN. Patient currently getting half NS because of hyponatremia and hypochloremia, along with bicarb 825 cc an hour. Patient was getting Ativan 4 mg p.o. every 6 hours is she still needed an extra dose early in the morning. Will change to 5 mg IV every 6 hours on a standing dose. Keep the patient RASS -1. Patient is in acute withdrawal from alcohol. Patient is able to maintain her respiratory status for the time being. If there is any deterioration in that will intubate the patient. Bilirubin is trending down. Electrolytes being replaced. Hemoglobin 9.3 today. I have personally spent 37 minutes of critical care time in the direct management of this patient. This is a life/limb threatening event. This includes time spent evaluating patient, direct bedside care, chart review, placing orders, interpretation of diagnostic studies, discussion with consultants, patient, and family members, as well as other required patient management activities. This time is exclusive of all separately billable procedures, and teaching time and separate from and in addition to any other critical care service time. Please note the above document was generated using voice recognition software. It may contain grammatical, syntax or spelling errors. (2) DKA (diabetic ketoacidoses): (3) Acute pancreatitis: (4) Elevated LFTs: (5) Acidosis, metabolic: Admission and Anticipated Discharge Date Admission Date: February 27, 2020 Subjective Patient seen and examined at bedside. No acute distress. Patient has been on 4 mg every 6 hours of Ativan p.o. She had a CIWA score hi ghest of 26 overnight for which she got an extra dose of 2 mg of IV Ativan. Patient is saturating well on room air. No fever. Patient does get restless when the Ativan weans off. Review of Systems Review of Systems: All systems reviewed & are unremarkable except as noted in Subjective Physical Exam Physical Exam: Constitutional: No acute distress HEENT: EOMI, PERRLA Respiratory system: Decreased air entry bilaterally, no wheeze, rhonchi, mild crackles bilateral lower lobes CVS: S1-S2 positive, no murmurs or gallops Abdomen: Soft, nontender, positive bowel sounds x4, distended not tense, obese Extremities: +2 pulses bilaterally radialis/ dorsalis pedis, no cyanosis, no edema Neuro: Awake alert oriented x3 Psych: Normal mood and affect G/U: Positive Smart Skin: no rashes, warm and dry Lymphatic: no cervical or axillary lymphadenopathy Results & Data Results & Data ([facility]) Vital Signs (Past 12 Hours) Vital Signs Temp Pulse Resp BP Pulse Ox 03/01/20 08:38 91 H 26 H 163/109 H 93 03/01/20 08:09 37.6 C H 115 H 24 173/114 H 100 03/01/20 07:10 93 H 38 H 148/90 H 100 03/01/20 06:00 107 H 25 H 99 03/01/20 05:49 79 29 H 100 03/01/20 05:10 116 H 23 183/118 H 100 03/01/20 05:00 84 26 H 100 03/01/20 04:37 107 H 27 H 149/107 H 100 03/01/20 04:09 94 H 19 149/107 H 97 03/01/20 04:00 103 H 16 96 03/01/20 03:10 77 29 H 151/107 H 100 03/01/20 03:00 88 21 100 03/01/20 02:17 79 25 H 138/99 100 03/01/20 02:00 100 03/01/20 01:09 96 H 22 132/94 100 03/01/20 01:00 96 H 25 H 92 03/01/20 00:09 144/101 H 100 03/01/20 00:00 86 25 H 99 02/29/20 23:09 101 H 13 86/67 L 100 02/29/20 23:00 88 27 H 100 02/29/20 22:09 80 21 128/89 99 02/29/20 22:00 82 22 100 02/29/20 21:08 91 H 27 H 141/94 H 99 03/01/20 05:54 03/01/20 05:54 Coding Level of Care Code Critical Care 1st 30-74 mins Diagnoses Acute renal failure (ARF) N17.9 DKA (diabetic ketoacidoses) E10.10 Diabetes mellitus complication detail: without coma Diabetes mellitus type: type 1 Acute pancreatitis K85.20 Acute pancreatitis complication: unspecified Pancreatitis type: alcohol induced Elevated LFTs R79.89 Acidosis, metabolic E87.2 Time Spent (min) 37 (1) DKA (diabetic ketoacidoses) Diabetes mellitus complication detail: without coma Diabetes mellitus type: type 1 Qualified Code(s): E10.10 - Type 1 diabetes mellitus with ketoacidosis without coma (2) Acute pancreatitis Acute pancreatitis complication: unspecified Pancreatitis type: alcohol induced Qualified Code(s): K85.20 - Alcohol induced acute pancreatitis without necrosis or infection
[2020-03-01] MEDS ORDERED: [UNRECOGNIZED DRUG - OTHER] IV SCH (09:45)
[2020-03-01] MEDS ORDERED: SODIUM BICARBONATE IV SCH (09:45)
[2020-03-01] MEDS ORDERED: POTASSIUM CHLORIDE IV SCH (09:45)
[2020-03-01] MEDS: D5W IV SCH (10:10)
[2020-03-01] MEDS: [UNRECOGNIZED DRUG - OTHER] IV SCH (10:10)
[2020-03-01] MEDS ORDERED: levoFLOXacin 500 MG TAB PO SCH (11:00)
[2020-03-01] MEDS ORDERED: PANTOprazole 40 MG in SYRINGE 0 ML IV SCH (11:00)
[2020-03-01] MEDS: INSULIN GLARGINE SOLOSTAR 100 UNITS/ML 3 ML PEN SC SCH (11:07)
--- NOTE | 2020-03-01 11:16 | Pharmacy Report ---
Pharmacy Glycemic Short Note 2 - Date of Service March 01, 2020 - Glycemic Short BSG Results (Last 24 hours): 02/29/20 02/29/20 02/29/20 11:59 16:41 18:04 Glucose 139 H 112 H POC Glucose 167 H 02/29/20 03/01/20 03/01/20 20:34 00:13 02:41 Glucose 92 POC Glucose 80 93 03/01/20 03/01/20 05:54 11:01 Glucose 77 POC Glucose 144 H OUTPATIENT ANTIDIABETIC REGIMEN: * N/A * A1c = 5.8% 02/28/20 ASSESSMENT: 03/01 * Patient successfully transitioned off insulin drip yesterday * Fasting BSGs 77-93 this AM with 20 units of Lantus on board - will decrease dose ~20% at this time as a precaution. Of note, patient appears to be experiencing alcohol withdrawal and not eating consistently due to mental status and/or sedation induced by benzo's. Dextrose has been incorporated i nto IVFs to prevent hypoglycemia in anticipation of poor PO intake today * Novolog prandial dose will be decreased today given fall in BSG observed last evening following dinner 02/28 * Pre-diabetic admitted for severe DKA, non-oligouric REG, and pancreatitis in the setting of heavy alcohol intake. Initial clinical presentation may have also been muddied by alcoholic ketoacidosis * Patient was treated w/ aggressive fluid resuscitation, IV insulin infusion and e-lyte replacement * Mild AG acidosis continues, NAGMA also present today - possibly due to REG and hyperchloremia - of note, serum ketones had normalized on yesterday's labs. * Insulin drip continues at this time, however may transition to SQ as metabolic abnormalities explainable by other dz processes * Initial insulin doses will be based upon patient weight and "mild-moderate" stress level. I am hesitant to give higher doses due to A1c 5.8%, significant renal impairment (but improving) and uncertain PO intake. If underlying pa ncreatitis leading to impaired insulin production, pt may behave like type 1 when stressed. PLAN FOR INPATIENT GLYCEMIC CONTROL: * Basal insulin - decrease * Lantus 15 units SQ daily * Bolus insulin - decrease * NovoLog per scale ACHS and 0200 check given changing clinical condition, possibly changing insulin needs * Goal Range: Low 110 mg/dL - High 140 mg/dL * Correction Factor: 25 mg/dL/unit * Nutritional / Prandial insulin per carb ratio of 1 unit per 10 grams CHO consumed PLAN FOR DISCHARGE: * To be determined. Given patient's presentation was DKA, discharge on insulin w/ close endocrinology f/u warranted.
[2020-03-01] MEDS ORDERED: levoFLOXacin 250 MG TABLET PO ONE (12:00)
[2020-03-01] MEDS: LORazepam 5 MG/10 ML VIAL IV SCH ×2 (14:00→19:39)
[2020-03-01 14:40] LABS: BUN Creatinine Ratio 24.1 (10-20); Calcium 9.2 mg/dl (8.5-10.1); Creatinine Clr Calc Pharmacy 26.3 ml/min; Est GFR (African American) 23.3; Est GFR (Non-African American) 20.1; Potassium 3.7 mmol/L (3.5-5.1)
--- NOTE | 2020-03-01 15:53 | Hospitalist Progress Note ---
Date of Service March 01, 2020 Assessment & Plan (1) Hyperglycemia: Diabetic Ketoacidosis In setting of infection Metabolic Acidosis HbA1C:5.8 Continue Insulin therapy Monitor electrolytes and replace as needed Monitor blood glucose levels (2) Acidosis, metabolic: Secondary to above Received IV Bicarbonate Bicarbonate levels normalized (3) REG (acute kidney injury): Likely ATN Nonoliguric Cr: 7.7>6.2>4.59> 3.92 Monitor renal function Avoid nephrotoxic agents as able Continue IV fluids Appreciate nephro nephrology input Needs follow-up with nephrology upon discharge (4) Acute pancreatitis: --CT ABD:Findings compatible with acute pancreatitis. No peripancreatic fluid collection. No biliary or pancreatic ductal dilation. Hepatomegaly with hepatic steatosis. Distended mildly hyperdense gallbladder may reflect intraluminal sludge. No bowel obstruction or bowel wall thickening. Normal appendix. Nonobstructing left nephrolithiasis. Serum lipase 778 Continue IV fluids Appreciate GI input Monitor Advance diet as tolerated (5) Nausea and vomiting: Likely multifactorial Continue PPI Anti-emetics PRN GI following Melena May need EGD prior to discharge Transfuse PRBCs as needed Monitor CBC Appreciate GI input Continue PPI (6) Alcohol withdrawal: H/O Heavy alcohol consumption. Continue alcohol withdrawal protocol Continue thiamine, folic acid UTI Urine Culture: E. coli, Klebsiella Blood Culture: No growth to date Continue Levaquin--renally dose (7) Alcoholism: Counseled to quit (8) Metabolic encephalopathy: Multifactorial Secondary to Infection, renal failure, DKA, Alcohol use Monitor (9) MRSA (methicillin resistant Staphylococcus aureus) carrier: Nasal MRSA screen positive. Contact isolation (10) Bacteriuria: as above (11) DVT prophylaxis: SCD's Re: GI bleed (12) Discharge planning issues: To be determined Admission and Anticipated Discharge Date Admission Date: February 27, 2020 Subjective Patient is seen and examined at bedside Received Ativan earlier today and is currently sedated Had melena overnight Afebrile Saturating well on room air No family at bedside History limited secondary to sedation Review of Systems Review of Systems: Unobtainable due to reduced consciousness Physical Exam Physical Exam: Physical Exam: Vitals signs as noted above General Appearance:Moderately built and nourished, no apparent distress Head: normocephalic, Atraumatic Eyes: normal inspection Neck: supple, Trachea midline Respiratory/Chest: Decreased breath sounds, crackles at bases Cardiovascular: S1, S2, No murmur Abdomen/GI:Soft, Non tender, distended, Bowel sounds present Extremities/Musculoskelatal:normal inspection, no edema Neurologic/Psych:grossly no focal neurological deficits Skin: normal color, warm Results & Data Results & Data ([facility]) Vital Signs (Past 12 Hours) Vital Signs Temp Pulse Resp BP Pulse Ox 03/01/20 14:09 37.2 C 94 H 28 H 121/82 92 03/01/20 13:10 125 H 31 H 116/88 96 03/01/20 12:09 82 23 153/99 H 95 03/01/20 11:09 37.0 C 82 21 130/89 94 03/01/20 10:09 86 20 123/86 91 03/01/20 09:09 89 20 124/89 91 03/01/20 08:38 91 H 26 H 163/109 H 93 03/01/20 08:09 37.6 C H 115 H 24 173/114 H 100 03/01/20 07:10 93 H 38 H 148/90 H 100 03/01/20 06:00 107 H 25 H 99 03/01/20 05:49 79 29 H 100 03/01/20 05:10 116 H 23 183/118 H 100 03/01/20 05:00 84 26 H 100 03/01/20 04:37 107 H 27 H 149/107 H 100 03/01/20 04:09 94 H 19 149/107 H 97 03/01/20 04:00 103 H 16 96 Laboratory Results Short CBC 03/01/20 Range/Units 05:54 WBC 5.91 (4.8-10.8) K/uL Hgb 9.3 L (12.0-16.0) g/dL Hct 27.9 L (37-47) % Plt Count 157 (130-400) K/uL BMP 02/29/20 03/01/20 03/01/20 18:04 00:13 05:54 Sodium 142 145 146 H Potassium 3.5 3.5 3.3 L Chloride 117 H 116 H 117 H Carbon Dioxide 16 L 19 L 21 BUN 88 H 83 H 75 H Creatinine 3.72 H 3.34 H D 3.11 H Glucose 112 H 92 77 Calcium 9.4 9.5 9.5 03/01/20 14:03 Sodium 145 Potassium 3.7 Chloride 115 H Carbon Dioxide 21 BUN 66 H Creatinine 2.76 H D Glucose 174 H Calcium 9.2 Liver Function 03/01/20 Range/Units 05:54 Total Bilirubin 1.1 H (0.2-1) mg/dl Direct Bilirubin 0.7 H (0-0.2) mg/dl AST 140 H (15-37) U/L ALT 78 (12-78) U/L Alkaline Phosphatase 162 H (45-117) U/L Albumin 2.3 L (3.4-5.0) gm/dl (1) Acute pancreatitis Acute pancreatitis complication: unspecified Pancreatitis type: alcohol induced Qualified Code(s): K85.20 - Alcohol induced acute pancreatitis without necrosis or infection
[2020-03-01] MEDS: LORazepam 2 MG/4 ML VIAL IV PRN (16:58)
[2020-03-01] MEDS ORDERED: STAT IV Infusion **Titration per Protocol STA (18:23)
[2020-03-01] MEDS: DEXMEDETOMIDINE HCL 200 MCG in SODIUM CHLORIDE 0.9% 48 ML IV SCH (19:36)
[2020-03-02] MEDS: [UNRECOGNIZED DRUG - OTHER] IV SCH (00:51)
[2020-03-02] MEDS: SODIUM BICARBONATE IV SCH (00:51)
[2020-03-02] MEDS: D5W IV SCH (00:51)
[2020-03-02] MEDS: POTASSIUM CHLORIDE IV SCH (00:51)
[2020-03-02] MEDS: LORazepam 5 MG/10 ML VIAL IV SCH (01:56)
[2020-03-02] MEDS ORDERED: INSULIN ASPART 100 UNITS/ML 3 ML PEN SC ONE (02:00)
[2020-03-02] MEDS: DEXMEDETOMIDINE HCL 200 MCG in SODIUM CHLORIDE 0.9% 48 ML IV SCH ×4 (04:10→23:50)
[2020-03-02 05:03] LABS: Hematocrit (blood only) 29.8 % (37-47); Hemoglobin 9.7 g/dL (12.0-16.0); Mean Corpuscular Hemoglobin 33.6 pg (25-34); Mean Corpuscular Hgb Conc 32.6 g/dL (32-36); Mean Corpuscular Volume 103.1 fL (80-100); Nucleated RBC # (auto) 0.03 K/uL (0-0); Nucleated RBC % (auto) 0.4 %; Platelet Count 194 K/uL (130-400); RDW Coefficient of Variation 17.1 % (11.5-14.5); RDW Standard Deviation 64.9 fL (36.4-46.3); Red Blood Count 2.89 M/uL (4.2-5.4); White Blood Count 7.28 K/uL (4.8-10.8)
[2020-03-02 05:13] LABS: Calcium 9.5 mg/dl (8.5-10.1); Creatinine Clr Calc Pharmacy 30.4 ml/min; Est GFR (African American) 27.7; Est GFR (Non-African American) 23.9; Magnesium 2.3 mg/dl (1.8-2.4)
[2020-03-02 05:27] LABS: ALC (manual) 1.01 K/uL (1.2-3.4); ANC (manual) 4.94 K/uL (1.4-6.5); Eosinophils # (manual) 0.19 K/uL (0-0.5); Eosinophils % (manual) 2.6 %; Lymphocytes # (manual) 1.01 K/uL (1.2-3.4); Lymphocytes % (manual) 13.9 %; Metamyelocytes # (manual) 0.19 K/uL (0-0); Metamyelocytes % (manual) 2.6 %; Monocytes # (manual) 0.51 K/uL (0.11-0.59); Myelocytes # (manual) 0.44 K/uL (0-0); Myelocytes % (manual) 6.1 %; Neutrophils # (manual) 4.94 K/uL (1.4-6.5); Neutrophils % (manual) 67.8 %; Stomatocytes 1+; Toxic Granulation 1+
[2020-03-02 05:59] LABS: Phosphorus 4.5 mg/dl (2.5-4.9)
[2020-03-02] MEDS ORDERED: DEXTROSE 5% 500 ML IV SCH (07:30)
--- NOTE | 2020-03-02 07:41 | Nephrology Progress Note ---
Date of Service March 02, 2020 Assessment & Plan (1) Acute renal failure (ARF): Nonoliguric stage III acute renal failure from ATN in the setting of pancreatitis and complicated by severe prerenal process with DKA. Had been hypertensive with mild tachycardia from alcohol withdrawal, resolved with dexmedetomidine addition. Negative fluid balance noted past 24 hr; on whole 5.6L + this admission. Presenting creatinine 7.8 on 02/26; baseline creatinine 0.8. on 03/01, creatinine 2.4, improving but still dramatically elevated BUN> down from 140s at admission to 55 this am. Also with heme + stool which may contribute to BUN elevation. AG still borderline elevated when corrected for he r albumin but improving. Hemoglobin stable Currently on D5W w/ 20 mEq/L k AT 100 ml hourly -Recommend recheck chemistries early afternoon today bmp only >scheduled for 1500 -Could wait until tomorrow to repeat mag and hgb unless clinical status changes -cont to avoid nephrotoxins -no indication for dialysis (2) Electrolyte and fluid disorder: Chemistries this am remarkable for hyperchloremia and mild but worsening hypernatremia; K 4.0 >on K rich fluids > may need to increase K content > Recheck basic metabolic panel midday and adjust fluids and electrolyte supplements as indicated Admission and Anticipated Discharge Date Admission Date: February 27, 2020 Subjective started on precedex this am; fluids maintained to keep her about 750 mL negative past 2 days Review of Systems Review of Systems: Unobtainable due to reduced consciousness Physical Exam Constitutional: well developed, well nourished and + obese; no acute distress Eyes: + anicteric sclerae ENMT: Ears: no external ear abnormality Nose: no external nose abnormality Mouth: + dry oral mucous membranes Neck: no nuchal rigidity Respiratory: normal respiratory effort and + paradoxical thoraco-abdominal movement Auscultation: + diminished lung sounds and + wheezes (BL exp anterior) Cardiovascular: Rate/Rhythm: + tachycardic Extremities: no edema Gastrointestinal (Abdomen): Inspection/Auscultation: normal bowel sounds Percussion/Palpation: abdomen soft; abdomen nontender Skin: no rashes, warm and dry Neurologic: moves all extremities Genitourinary: cullen w/ copious urine Results & Data ([facility]) Vital Signs (Past 12 Hours) Vital Signs Temp Pulse Resp BP Pulse Ox 03/02/20 06:00 69 18 109/83 94 09/10/20 05:00 70 21 105/76 96 03/02/20 04:00 36.7 C 90 22 135/86 100 03/02/20 03:00 70 19 100/68 96 03/02/20 02:00 70 17 116/79 98 03/02/20 01:00 71 21 108/57 L 96 03/02/20 00:00 36.7 C 66 22 107/77 100 03/01/20 23:00 78 17 107/68 97 03/01/20 22:00 88 21 89/68 L 94 03/01/20 21:00 92 H 18 104/78 97 03/01/20 20:00 37 C 86 20 101/82 97 Laboratory Results 03/02/20 04:07 03/02/20 04:07
[2020-03-02] MEDS: MULTIVITAMIN TAB PO SCH (08:11)
[2020-03-02] MEDS: THIAMINE HCL 100 MG TAB PO SCH (08:11)
[2020-03-02] MEDS: PANTOprazole 40 MG in SYRINGE 0 ML IV SCH ×2 (08:11→20:24)
[2020-03-02] MEDS: FOLIC ACID 1 MG TAB PO SCH (08:11)
[2020-03-02] MEDS: INSULIN ASPART 100 UNITS/ML 3 ML PEN SC SCH ×4 (08:12→20:24)
[2020-03-02] MEDS: INSULIN GLARGINE SOLOSTAR 100 UNITS/ML 3 ML PEN SC SCH (08:12)
[2020-03-02] MEDS: LORazepam 3 MG/6 ML VIAL IV SCH ×3 (08:47→20:24)
[2020-03-02] MEDS: POTASSIUM CHLORIDE 20 MEQ in DEXTROSE 5% 1,000 ML IV SCH ×2 (08:47→18:46)
--- NOTE | 2020-03-02 09:13 | Critical Care Progress Note ---
Date of Service March 02, 2020 Assessment & Plan (1) Acute renal failure (ARF): --Alcohol withdrawal On Ativan [id number] Precedex started 03/01 Keep patient RASS -1 Patient is currently maintaining her airway. If there is any compromise in that will intubate the patient. --Acute renal failure Making good amount of urine Likely prerenal from severe DKA with a component of ATN Strict in and out Avoid nephrotoxic medication Nephrology on board follow-up recommendations --Status post DKA New onset DKA, blood sugar admission 702 Status post insulin drip ICU hyperglycemia protocol --Macrocytic anemia with melanotic stools Monitor H&H Transfuse if hemoglobin less than 7 Patient had melanotic stool but hemoglobin has been stable. GI on board. --Elevated liver enzymes Meld score 26, 19.6% mortality in the next 3 months Discriminant factor: 2.9 Likely from alcohol abuse Monitor LFTs --Status post acute pancreatitis Likely secondary to alcohol abuse Patient tolerating p.o. diet --Status post metabolic encephalopathy Likely secondary to severe acidosis on top of uremia TSH 0.88, UDS negative Improved Monitor --UTI Pansensitive E. coli and Klebsiella On levofloxacin for the time being, QTc 439 --Hypernatremia with hyperchloremia Likely from normal saline being used before. IV fluids have been changed to half NS Monitor --Prophylaxis VTE: Compression boots given thrombocytopenia GI: Protonix Lines: Peripheral, positive Smart Diet: Diabetic Plan: In/out: -765 ml, urine output 3475 ml Patient is hyponatremic with hypochloremic given the patient is on D5 half NS at 75 cc an hour. We will change the fluid to D5 water at 100 mL an hour repeat BMP mag [place] at 3 PM. Decrease IV Ativan to 3 mg every 6 hours. Continue with Precedex to keep RASS - 1. H&H is stable. We will do a chest x-ray today. I have personally spent 35 minutes of critical care time in the direct manage ment of this patient. This is a life/limb threatening event. This includes time spent evaluating pa tient, direct bedside care, chart review, placing orders, interpretation of diagnostic studies, discussion with consultants, patient, and family members, as well as other required patient management activities. This time is exclusive of all separately billable procedures, and teaching time and separate from and in addition to any other critical care service time. Please note the above document was generated using voice recognition software. It may contain grammatical, syntax or spelling errors. (2) DKA (diabetic ketoacidoses): (3) Acute pancreatitis: (4) Elevated LFTs: (5) Acidosis, metabolic: Admission and Anticipated Discharge Date Admission Date: February 27, 2020 Subjective Patient seen and examined at bedside. No acute distress. Patient is on Precedex 0.2. At the time of examination was turned off. Patient was on 5 mg IV every 6 hours of Ativan but she was not given 1 scheduled dose as she was calm. But she did get 1 as needed dose 2 mg. Given that the patient is on Precedex I will go down on the IV Ativan to 3 mg every 6 hours. Patient is awake alert oriented to self and place. Answer simple questions. Able to take her medications by mouth. As per the nurse patient still has hallucinations. Physical Exam Physical Exam: Constitutional: No acute distress HEENT: EOMI, PERRLA Respiratory system: Decreased air entry bilaterally, no wheeze, rhonchi, mild crackles bilateral lower lobes CVS: S1-S2 positive, no murmurs or gallops Abdomen: Soft, nontender, positive bowel sounds x4, distended not tense, obese Extremities: +2 pulses bilaterally radialis/ dorsalis pedis, no cyanosis, no edema Neuro: Awake alert oriented to self, place and time Psych: Emotional mood today. G/U: Positive Smart Skin: no rashes, warm and dry Lymphatic: no cervical or axillary lymphadenopathy Results & Data Results & Data ([facility]) Vital Signs (Past 12 Hours) Vital Signs Temp Pulse Resp BP Pulse Ox 03/02/20 06:00 69 18 109/83 94 03/02/20 05:00 70 21 105/76 96 03/02/20 04:00 36.7 C 90 22 135/86 100 03/02/20 03:00 70 19 100/68 96 03/02/20 02:00 70 17 116/79 98 03/02/20 01:00 71 21 108/57 L 96 03/02/20 00:00 36.7 C 66 22 107/77 100 03/01/20 23:00 78 17 107/68 97 03/01/20 22:00 88 21 89/68 L 94 03/02/20 04:07 09/10/20 04:07 Coding Level of Care Code Critical Care 1st 30-74 mins Diagnoses Acute renal failure (ARF) N17.9 DKA (diabetic ketoacidoses) E10.10 Diabetes mellitus complication detail: without coma Diabetes mellitus type: type 1 Acute pancreatitis K85.20 Acute pancreatitis complication: unspecified Pancreatitis type: alcohol induced Elevated LFTs R79.89 Acidosis, metabolic E87.2 Time Spent (min) 35 (1) DKA (diabetic ketoacidoses) Diabetes mellitus complication detail: without coma Diabetes mellitus type: type 1 Qualified Code(s): E10.10 - Type 1 diabetes mellitus with ketoacidosis without coma (2) Acute pancreatitis Acute pancreatitis complication: unspecified Pancreatitis type: alcohol induced Qualified Code(s): K85.20 - Alcohol induced acute pancreatitis without necrosis or infection
--- NOTE | 2020-03-02 09:34 | XRay Report ---
XR chest 1V portable CLINICAL HISTORY: Dyspnea COMPARISON STUDY: Chest radiograph February 27, 2020. FINDINGS: Lung volumes are diminished. Mild enlargement of the cardiac silhouette is accentuated on t his hypoventilatory study. There is no pneumothorax. There may be trace bilateral pleural effusions. There is no evidence for pulmonary edema. No consolidation is identified. IMPRESSION: 1. Low lung volumes. No definite acute findings. 2. Possible trace bilateral pleural effusions. ACT 112: Negative or not required by law. Electronically signed by: Kishore Brown M.D. 03/02/2020 9:32 AM
[2020-03-02] MEDS: LORazepam 2 MG/4 ML VIAL IV PRN ×2 (09:58→23:47)
[2020-03-02] MEDS ORDERED: DEXTROSE 50% 50 ML SYRINGE IV PRN (10:45)
[2020-03-02] MEDS ORDERED: GLUCOSE 10 TABS/TUBE PO PRN (10:45)
[2020-03-02] MEDS ORDERED: GLUCOSE 40% GEL 15 GM TUBE PO PRN (10:45)
[2020-03-02] MEDS ORDERED: CARBOHYDRATES FOR HYPOGLYCEMIA PO PRN (10:45)
[2020-03-02] MEDS ORDERED: GLUCAGON FOR INJ 1 MG VIAL IM PRN (10:45)
--- NOTE | 2020-03-02 12:10 | Pharmacy Report ---
Pharmacy Glycemic Short Note 2 - Date of Service March 02, 2020 - Glycemic Short BSG Results (Last 24 hours): 03/01/20 03/01/20 03/01/20 14:03 16:36 21:22 Glucose 174 H POC Glucose 135 H 109 H 03/02/20 03/02/20 03/02/20 01:53 04:07 06:27 Glucose 140 H POC Glucose 145 H 152 H 03/02/20 03/02/20 07:38 11:34 Glucose POC Glucose 162 H 134 H OUTPATIENT ANTIDIABETIC REGIMEN: * N/A * A1c = 5.8% 02/28/20 ASSESSMENT: 03/02 * BSGs ranged 77-162 over last 24 hrs, most of which between 110-160 * Patient's PO intake remains poor due to mental status and sedation. Dextrose containing IVFs continue today, but at a slightly higher rate. * Plan to continue current insulin doses for next 24 hrs and follow BSG pattern 03/01 * Patient successfully transitioned off insulin drip yesterday * Fasting BSGs 77-93 this AM with 20 units of Lantus on board - will decrease dose ~20% at this time as a precaution. Of note, patient appears to be experiencing alcohol withdrawal and not eating consistently due to mental status and/or sedation induced by benzo's. Dextrose has been incorporated into IVFs to prevent hypoglycemia in anticipation of poor PO intake today * Novolog prandial dose will be decreased today given fall in BSG observed last evening following dinner 02/28 * Pre-diabetic admitted for severe DKA, non-oligouric REG, and pancreatitis in the setting of heavy alcohol intake. Initial clinical presentation may have also been muddied by alcoholic ketoacidosis * Patient was treated w/ aggressive fluid resuscitation, IV insulin infusion and e-lyte replacement * Mild AG acidosis continues, NAGMA also present today - possibly due to REG and hyperchloremia - of note, serum ketones had normalized on yesterday's labs. * Insulin drip continues at this time, however may transition to SQ as metabolic abnormalities explainable by other dz processes * Initial insulin doses will be based upon patient weight and "mild-moderate" stress level. I am hesitant to give higher doses due to A1c 5.8%, significant renal impairment (but improving) and uncertain PO intake. If underlying pancreatitis leading to impaired insulin production, pt may behave like type 1 when stressed. PLAN FOR INPATIENT GLYCEMIC CONTROL: * Basal insulin - no change * Lantus 15 units SQ daily * Bolus insulin - no change * NovoLog per scale ACHS and 0200 check given changing clinical condition, possibly changing insulin needs * Goal Range: Low 110 mg/dL - High 140 mg/dL * Correction Factor: 25 mg/dL/unit * Nutritional / Prandial insulin per carb ratio of 1 unit per 10 grams CHO consumed PLAN FOR DISCHARGE: * To be determined. Given patient's presentation was DKA, discharge on insulin w/ close endocrinology f/u warranted.
[2020-03-02 16:15] LABS: BUN Creatinine Ratio 21.9 (10-20); Calcium 10.2 mg/dl (8.5-10.1); Est GFR (African American) 30.8; Est GFR (Non-African American) 26.5; Potassium 4.1 mmol/L (3.5-5.1)
--- NOTE | 2020-03-02 18:00 | Hospitalist Progress Note ---
Date of Service March 02, 2020 Assessment & Plan (1) Hyperglycemia: Diabetic Ketoacidosis In setting of infection Metabolic Acidosis HbA1C:5.8 Continue Insulin therapy Monitor electrolytes and replace as needed Monitor blood glucose levels (2) Acidosis, metabolic: Secondary to above Received IV Bicarbonate Bicarbonate levels normalized (3) REG (acute kidney injury): Acute Kidney Injury Hypernatremia Hyperchloremia Likely ATN Nonoliguric Cr: 7.7>6.2>4.59> 3.92>>2.19 Monitor renal function Avoid nephrotoxic agents as able Continue IV fluids per Nephrology Appreciate Nephrology input Needs follow-up with nephrology upon discharge (4) Acute pancreatitis: --CT ABD:Findings compatible with acute pancreatitis. No peripancreatic fluid collection. No biliary or pancreatic ductal dilation. Hepatomegaly with hepatic steatosis. Distended mildly hyperdense gallbladder may reflect intraluminal sludge. No bowel obstruction or bowel wall thickening. Normal appendix. Nonobstructing left nephrolithiasis. Serum lipase 778 Continue IV fluids Appreciate GI input Monitor Tolerating PO Diet (5) Nausea and vomiting: Likely multifactorial Continue PPI Anti-emetics PRN GI following Melena May need EGD prior to discharge Transfuse PRBCs as needed Monitor CBC Appreciate GI input Continue PPI Hb stable (6) Alcohol withdrawal: Alcohol Withdrawal Transaminitis H/O Heavy alcohol consumption. Continue alcohol withdrawal protocol Continue thiamine, folic acid On Precedex On BiPAP UTI Urine Culture: E. coli, Klebsiella Blood Culture: No growth to date Continue Levaquin--renally dose (7) Alcoholism: Counseled to quit (8) Metabolic encephalopathy: Multifactorial Secondary to Infection, renal failure, DKA, Alcohol use Monitor (9) MRSA (methicillin resistant Staphylococcus aureus) carrier: Nasal MRSA screen positive. Contact isolation (10) Bacteriuria: as above (11) DVT prophylaxis: SCD's Re: GI bleed (12) Discharge planning issues: To be determined Admission and Anticipated Discharge Date Admission Date: February 27, 2020 Subjective Patient is seen and examined at bedside On Precedex drip and BiPAP No melena as per RN Still has hallucinations per RN History limited secondary to sedation Hb stable Review of Systems Review of Systems: Unobtainable due to reduced consciousness Physical Exam Physical Exam: Physical Exam: Vitals signs as noted above General Appearance:Moderately built and nourished, no apparent distress Head: normocephalic, Atraumatic Eyes: normal inspection Neck: supple, Trachea midline Respiratory/Chest: Decreased breath sounds, crackles at bases Cardiovascular: S1, S2, No murmur Abdomen/GI:Soft, Non tender, distended, Bowel sounds present Extremities/Musculoskelatal:normal inspection, no edema Neurologic/Psych:grossly no focal neurological deficits Skin: normal color, warm Results & Data Results & Data ([facility]) Vital Signs (Past 12 Hours) Vital Signs Temp Pulse Resp BP Pulse Ox 03/02/20 16:46 37.4 C 03/02/20 16:10 57 L 14 122/79 98 03/02/20 15:10 87 24 95 03/02/20 15:09 58 L 17 129/76 97 03/02/20 14:09 61 18 118/77 95 03/02/20 13:26 65 18 95 03/02/20 13:09 61 17 116/75 97 03/02/20 12:09 64 18 117/92 98 03/02/20 11:38 37.4 C 03/02/20 11:10 66 22 109/66 94 03/02/20 10:09 90 18 124/85 97 03/02/20 10:01 78 18 98 03/02/20 09:10 86 30 H 128/80 75 L 03/02/20 08:09 115 H 30 H 132/90 95 03/02/20 08:00 36.7 C 03/02/20 07:09 70 22 119/74 94 03/02/20 06:00 69 18 109/83 94 Laboratory Results Short CBC 03/02/20 Range/Units 04:07 WBC 7.28 (4.8-10.8) K/uL Hgb 9.7 L (12.0-16.0) g/dL Hct 29.8 L (37-47) % Plt Count 194 (130-400) K/uL BMP 03/02/20 03/02/20 04:07 15:11 Sodium 148 H 148 H Potassium 4.0 4.1 Chloride 116 H 116 H Carbon Dioxide 24 21 BUN 55 H 48 H Creatinine 2.39 H D 2.19 H Glucose 140 H 156 H Calcium 9.5 10.2 H (1) Acute pancreatitis Acute pancreatitis complication: unspecified Pancreatitis type: alcohol induced Qualified Code(s): K85.20 - Alcohol induced acute pancreatitis without necrosis or infection
[2020-03-03] MEDS: LORazepam 3 MG/6 ML VIAL IV SCH ×4 (02:00→23:43)
[2020-03-03] MEDS: POTASSIUM CHLORIDE 20 MEQ in DEXTROSE 5% 1,000 ML IV SCH ×2 (04:31→15:01)
[2020-03-03 04:53] LABS: Hematocrit (blood only) 30.6 % (37-47); Hemoglobin 9.7 g/dL (12.0-16.0); Mean Corpuscular Hemoglobin 33.1 pg (25-34); Mean Corpuscular Hgb Conc 31.7 g/dL (32-36); Mean Corpuscular Volume 104.4 fL (80-100); Mean Platelet Volume 10.5 fL (7.4-10.4); Nucleated RBC # (auto) 0.04 K/uL (0-0); Nucleated RBC % (auto) 0.5 %; Platelet Count 198 K/uL (130-400); RDW Coefficient of Variation 17.2 % (11.5-14.5); RDW Standard Deviation 66.5 fL (36.4-46.3); Red Blood Count 2.93 M/uL (4.2-5.4); White Blood Count 7.27 K/uL (4.8-10.8)
[2020-03-03 05:16] LABS: Albumin Level 2.2 gm/dl (3.4-5.0); BUN Creatinine Ratio 19.5 (10-20); Bilirubin Direct 0.5 mg/dl (0-0.2); Calcium 9.5 mg/dl (8.5-10.1); Est GFR (African American) 36.5; Est GFR (Non-African American) 31.5; Magnesium 1.9 mg/dl (1.8-2.4); Potassium 4.1 mmol/L (3.5-5.1)
[2020-03-03 05:19] LABS: Bilirubin,Total 0.9 mg/dl (0.2-1); Phosphorus 4.2 mg/dl (2.5-4.9); Total Protein 5.6 gm/dl (6.4-8.2)
[2020-03-03 05:22] LABS: ALC (manual) 0.82 K/uL (1.2-3.4); ANC (manual) 5.05 K/uL (1.4-6.5); Eosinophils # (manual) 0.19 K/uL (0-0.5); Eosinophils % (manual) 2.6 %; Lymphocytes # (manual) 0.82 K/uL (1.2-3.4); Lymphocytes % (manual) 11.3 %; Metamyelocytes # (manual) 0.44 K/uL (0-0); Metamyelocytes % (manual) 6.1 %; Monocytes # (manual) 0.51 K/uL (0.11-0.59); Myelocytes # (manual) 0.25 K/uL (0-0); Myelocytes % (manual) 3.5 %; Neutrophils # (manual) 5.05 K/uL (1.4-6.5); Neutrophils % (manual) 69.5 %
[2020-03-03] MEDS: DEXMEDETOMIDINE HCL 200 MCG in SODIUM CHLORIDE 0.9% 48 ML IV SCH ×4 (07:08→21:33)
--- NOTE | 2020-03-03 07:19 | Nephrology Progress Note ---
Date of Service March 03, 2020 Assessment & Plan (1) Acute renal failure (ARF): Improving nonoliguric stage III acute renal failure from ATN in the setting of pancreatitis and complicated by severe prerenal process with DKA. Had been hypertensive with mild tachycardia from alcohol withdrawal, resolved with dexmedetomidine addition. about 1/2 L + past 24 hr; on whole just over 6L + this admission. Presenting creatinine 7.8 on 02/26; baseline creatinine 0.8. on 03/03, creatinine 1.9, improving daily. Hemoglobin stable Currently on D5W w/ 20 mEq/L k AT 100 ml hourly -Recommend recheck chemistries this afternoon >> getting close clinically to where we can go to daily checks -cont to avoid nephrotoxins -has not this admission had indication for dialysis -resaonable to remove cullen at this point from renal standpoint (2) Electrolyte and fluid disorder: Chemistries this am remarkable for improving hyperchloremia; hypernatremia resolved; potassium on target on current IVF > Recheck basic metabolic panel midday and adjust fluids and electrolyte supplements as indicated Admission and Anticipated Discharge Date Admission Date: February 27, 2020 Subjective worsening respiratory status yesterday and on bipap ON; on RA when I saw her at about 0730. denies pain, denies sob, + thirst; denies n/v. remains on IVF from yesterday am>> D5W w/ 20mEq/L K at 100 mL hourly; remains on precedex gtt Review of Systems Review of Systems: All systems reviewed & are unremarkable except as noted in HPI & below Physical Exam Constitutional: well developed, well nourished and + obese; no acute distress lying flat on RA Eyes: + anicteric sclerae ENMT: Ears: no external ear abnormality Nose: no external nose abnormality Mouth: + dry oral mucous membranes hoarse Neck: no nuchal rigidity Respiratory: normal respiratory effort Auscultation: lungs clear to auscultation bilaterally and + diminished lung sounds Cardiovascular: RRR, no murmur, no edema Gastrointestinal (Abdomen): Inspection/Auscultation: normal bowel sounds Percussion/Palpation: abdomen soft; abdomen nontender Musculoskeletal: good Skin: no rashes, warm and dry Neurologic: no obvious tremor, still w/ psychomotor slowing, answers and answers appropriately Genitourinary: cullen w/ clear yellow urine Results & Data ([place]) Vital Signs (Past 12 Hours) Vital Signs Temp Pulse Resp BP Pulse Ox 03/03/20 06:10 59 L 17 110/70 96 03/03/20 06:00 57 L 17 96 03/03/20 05:10 64 25 H 120/74 100 03/03/20 05:00 55 L 19 97 03/03/20 04:11 63 21 104/80 98 03/03/20 04:00 36.8 C 84 18 99 03/03/20 03:10 56 L 19 116/64 95 03/03/20 03:00 58 L 16 96 03/03/20 02:10 50 L 18 124/84 97 03/03/20 02:00 51 L 22 97 03/03/20 01:10 57 L 16 117/70 95 03/03/20 01:00 58 L 22 96 03/03/20 00:10 60 20 132/79 98 03/03/20 00:00 55 L 18 98 03/02/20 23:10 61 20 110/74 99 03/02/20 23:07 36.5 C 03/02/20 23:00 73 19 99 03/02/20 22:10 51 L 15 109/78 98 03/02/20 22:01 52 L 15 118/85 98 03/02/20 22:00 54 L 14 98 03/02/20 21:10 74 24 118/85 98 03/02/20 21:00 61 22 98 03/02/20 20:10 50 L 14 124/85 98 03/02/20 20:00 49 L 14 100 03/02/20 19:35 36.6 C 03/02/20 19:10 50 L 15 134/87 97 Laboratory Results 03/03/20 04:36 03/03/20 04:36 Diagnostic Findings cxr 1. Low lung volumes. No definite acute findings. 2. Possible trace bilateral pleural effusions.
[2020-03-03] MEDS: INSULIN ASPART 100 UNITS/ML 3 ML PEN SC SCH ×4 (07:56→20:55)
[2020-03-03] MEDS: FOLIC ACID 1 MG TAB PO SCH (07:57)
[2020-03-03] MEDS: MULTIVITAMIN TAB PO SCH (07:58)
[2020-03-03] MEDS: INSULIN GLARGINE SOLOSTAR 100 UNITS/ML 3 ML PEN SC SCH (07:58)
[2020-03-03] MEDS: PANTOprazole 40 MG in SYRINGE 0 ML IV SCH (07:59)
[2020-03-03] MEDS: THIAMINE HCL 100 MG TAB PO SCH (07:59)
[2020-03-03] MEDS: HEPARIN SOD 5,000 UNIT/0.5 ML VIAL SQ SCH ×2 (08:24→20:55)
--- NOTE | 2020-03-03 10:38 | Critical Care Progress Note ---
Date of Service March 03, 2020 Assessment & Plan (1) Acute renal failure (ARF): --Alcohol withdrawal On Ativan [id number] Precedex started 03/01 Keep patient RASS -1 Patient is currently maintaining her airway. If there is any compromise in that will intubate the patient. BiPAP nightly and PRN shortness of breath --Acute renal failure Making good amount of urine, improving Likely prerenal from severe DKA with a component of ATN Strict in and out Avoid nephrotoxic medication Nephrology on board follow-up recommendations --Status post DKA New onset DKA, blood sugar admission 702 Status post insulin drip ICU hyperglycemia protocol --Macrocytic anemia with melanotic stools Monitor H&H Transfuse if hemoglobin less than 7 Patient had melanotic stool but hemoglobin has been stable. GI on board. --Elevated liver enzymes Meld score 26, 19.6% mortality in the next 3 months Discriminant factor: 2.9 Likely from alcohol abuse Monitor LFTs --Status post acute pancreatitis Likely secondary to alcohol abuse Patient tolerating p.o. diet --Status post metabolic encephalopathy Likely secondary to severe acidosis on top of uremia TSH 0.88, UDS negative Improved Monitor --UTI Pansensitive E. coli and Klebsiella On levofloxacin for the time being, QTc 439 --Prophylaxis VTE: Compression boots --> heparin started 03/03/2020thrombocytopenia improved GI: Protonix Lines: Peripheral Diet: Diabetic, advance as tolerated. Plan: In/out: +613, urine output 2250 Patient has good urine output and creatinine is trending down. Will DC Smart. Continue with D5 water at 75 cc an hour for the time being. We will repeat BMP later on today and decide with if he can DC the IV fluids on her. Change IV to p.o. Ativan to 3 mg every 6 hours. Continue with Precedex and try to titrate off if possible keeping an eye on her CIWA score. Protonix changed to p.o. Magnesium is being replaced. H&H has been stable. If the patient is mentally more alert and following commands we will see if we can make her sit on the chair this will improve her overall mentation. I have personally spent 33 minutes of critical care time in the direct management of this patient. This is a life/limb threatening event. This includes time spent evaluating patient, direct bedside care, chart review, placing orders, interpretation of diagnostic studies, discussion with consultants, patient, and family members, as well as other required patient management activities. This time is exclusive of all separately billable procedures, and teaching time and separate from and in addition to any other critical care service time. Please note the above document was generated using voice recognition software. It may contain grammatical, syntax or spelling errors. (2) DKA (diabetic ketoacidoses): (3) Acute pancreatitis: (4) Elevated LFTs: (5) Acidosis, metabolic: Admission and Anticipated Discharge Date Admission Date: February 27, 2020 Subjective Patient seen and examined at bedside. No acute distress, no adverse events overnight. Patient was on Precedex 0.4 at the time of examination. She had just gotten Ativan prior to me examining her. She seems to be more calm right now. She is answering all the questions appropriately. Denies any chest pain or shortness of breath. Patient used BiPAP all night. She is urinating well. Review of Systems Review of Systems: All systems reviewed & are unremarkable except as noted in Subjective Physical Exam Physical Exam: Constitutional: No acute distress HEENT: EOMI, PERRLA Respiratory system: Decreased air entry bilaterally, no wheeze, rhonchi, mild crackles bilateral lower lobes CVS: S1-S2 positive, no murmurs or gallops Abdomen: Soft, nontender, positive bowel sounds x4, distended not tense, obese Extremities: +2 pulses bilaterally radialis/ dorsalis pedis, no cyanosis, no edema Neuro: Awake alert oriented to self, place and time Psych: Calm mood and affect G/U: Positive Smart Skin: no rashes, warm and dry Lymphatic: no cervical or axillary lymphadenopathy Results & Data Results & Data ([facility]) Vital Signs (Past 12 Hours) Vital Signs Temp Pulse Resp BP Pulse Ox 03/03/20 08:00 36.4 C L 81 26 H 94/72 L 99 03/03/20 07:00 72 22 118/86 98 03/03/20 06:10 59 L 17 110/70 96 03/03/20 06:00 57 L 17 96 03/03/20 05:10 64 25 H 120/74 100 03/03/20 05:00 55 L 19 97 03/03/20 04:11 63 21 104/80 98 03/03/20 04:00 36.8 C 84 18 99 03/03/20 03:10 56 L 19 116/64 95 03/03/20 03:00 58 L 16 96 03/03/20 02:10 50 L 18 124/84 97 03/03/20 02:00 51 L 22 97 03/03/20 01:10 57 L 16 117/70 95 03/03/20 01:00 58 L 22 96 03/03/20 00:10 60 20 132/79 98 03/03/20 00:00 55 L 18 98 03/02/20 23:10 61 20 110/74 99 03/02/20 23:07 36.5 C 03/02/20 23:00 73 19 99 03/03/20 04:36 03/03/20 04:36 Coding Level of Care Code Critical Care 1st 30-74 mins Diagnoses Acute renal failure (ARF) N17.9 DKA (diabetic ketoacidoses) E10.10 Diabetes mellitus complication detail: without coma Diabetes mellitus type: type 1 Acute pancreatitis K85.20 Acute pancreatitis complication: unspecified Pancreatitis type: alcohol induced Elevated LFTs R79.89 Acidosis, metabolic E87.2 Time Spent (min) 33 (1) DKA (diabetic ketoacidoses) Diabetes mellitus complication detail: without coma Diabetes mellitus type: type 1 Qualified Code(s): E10.10 - Type 1 diabetes mellitus with ketoacidosis without coma (2) Acute pancreatitis Acute pancreatitis complication: unspecified Pancreatitis type: alcohol induced Qualified Code(s): K85.20 - Alcohol induced acute pancreatitis without necrosis or infection
[2020-03-03] MEDS ORDERED: levoFLOXacin 750 MG TAB PO SCH (11:00)
--- NOTE | 2020-03-03 12:25 | Pharmacy Report ---
Pharmacy Glycemic Short Note 2 - Date of Service March 03, 2020 - Glycemic Short BSG Results (Last 24 hours): 03/02/20 03/02/20 03/02/20 15:11 16:41 20:21 Glucose 156 H POC Glucose 173 H 179 H 03/03/20 03/03/20 03/03/20 04:36 07:47 11:15 Glucose 185 H POC Glucose 183 H 155 H OUTPATIENT ANTIDIABETIC REGIMEN: * N/A * A1c = 5.8% 02/28/20 ASSESSMENT: 03/03 * Glycemic control remains acceptable. BSGs have ranged 134-183 over last 24 hrs. * BSGs did trend upwards with the increased rate of IV dextrose administration yesterday. IV dextrose continues today but at a reduced rate. I did temporarily increase her Novolog correctional doses to compensate for the increase IVF rate. This dose will be reduced again given change in IVF rate and possible removal of dextrose from maint IVF in near future. * Patient's mental status has been improving and she is tolerating PO meds and diet thus far today - will monitor post-prandial BSGs. 03/02 * BSGs ranged 77-162 over last 24 hrs, most of which between 110-160 * Patient's PO intake remains poor due to mental status and sedation. Dextrose containing IVFs continue today, but at a slightly higher rate. * Plan to continue current insulin doses for next 24 hrs and follow BSG pattern 03/01 * Patient successfully transitioned off insulin drip yesterday * Fasting BSGs 77-93 this AM with 20 units of Lantus on board - will decrease dose ~20% at this time as a precaution. Of note, patient appears to be experiencing alcohol withdrawal and not eating consistently due to mental status and/or sedation induced by benzo's. Dextrose has been incorporated into IVFs to prevent hypoglycemia in anticipation of poor PO intake today * Novolog prandial dose will be decreased today given fall in BSG observed last evening following dinner 02/28 * Pre-diabetic admitted for severe DKA, non-oligouric REG, and pancreatitis in the setting of heavy alcohol intake. Initial clinical presentation may have also been muddied by alcoholic ketoacidosis * Patient was treated w/ aggressive fluid resuscitation, IV insulin infusion and e-lyte replacement * Mild AG acidosis continues, NAGMA also present today - possibly due to REG and hyperchloremia - of note, serum ketones had normalized on yesterday's labs. * Insulin drip continues at this time, however may transition to SQ as metabolic abnormalities explainable by other dz processes * Initial insulin doses will be based upon patient weight and "mild-moderate" stress level. I am hesitant to give higher doses due to A1c 5.8%, significant renal impairment (but improving) and uncertain PO intake. If underlying pancreatitis leading to impaired insulin production, pt may behave like type 1 when stressed. PLAN FOR INPATIENT GLYCEMIC CONTROL: * Basal insulin - no change * Lantus 15 units SQ daily * Bolus insulin - no change * NovoLog per scale ACHS and 0200 check given changing clinical condition, p ossibly changing insulin needs * Goal Range: Low 110 mg/dL - High 140 mg/dL * Correction Factor: 25 mg/dL/unit * Nutritional / Prandial insulin per carb ratio of 1 unit per 10 grams CHO consumed PLAN FOR DISCHARGE: * To be determined. Given patient's presentation was DKA, discharge on insulin w/ close endocrinology f/u warranted. At this point it appears than once daily Lantus dosed at 15 units daily would be a reasonable starting dose. Prandial insulin dose still to be determined however would expect a dose of 4- 5 units per meal to be a reasonable estimate.
--- NOTE | 2020-03-03 18:15 | Hospitalist Progress Note ---
Date of Service March 03, 2020 Assessment & Plan (1) Hyperglycemia: Diabetic Ketoacidosis In setting of infection Metabolic Acidosis HbA1C:5.8 Continue Insulin therapy Monitor electrolytes and replace as needed Blood glucose levels stable (2) Acidosis, metabolic: Secondary to above Received IV Bicarbonate Bicarbonate levels normalized (3) REG (acute kidney injury): Acute Kidney Injury Hypernatremia Hyperchloremia Likely ATN Nonoliguric Cr: 7.7>6.2>4.59> 3.92>2.19>1.9 Monitor renal function Avoid nephrotoxic agents as able Continue IV fluids per Nephrology Appreciate Nephrology input Needs follow-up with nephrology upon discharge (4) Acute pancreatitis: --CT ABD:Findings compatible with acute pancreatitis. No peripancreatic fluid collection. No biliary or pancreatic ductal dilation. Hepatomegaly with hepatic steatosis. Distended mildly hyperdense gallbladder may reflect intraluminal sludge. No bowel obstruction or bowel wall thickening. Normal appendix. Nonobstructing left nephrolithiasis. Serum lipase 778 Continue IV fluids Appreciate GI input Monitor Tolerating PO Diet (5) Nausea and vomiting: Likely multifactorial Continue PPI Anti-emetics PRN GI following Melena May need EGD prior to discharge Transfuse PRBCs as needed Monitor CBC Appreciate GI input Continue PPI Hb stable (6) Alcohol withdrawal: Alcohol Withdrawal Transaminitis H/O Heavy alcohol consumption. Continue alcohol withdrawal protocol Continue thiamine, folic acid Titrate off of Precedex drip as able BiPAP PRN Consider changing Ativan to PO UTI Urine Culture: E. coli, Klebsiella Blood Culture: No growth to date Continue Levaquin--renally dose (7) Alcoholism: Counseled to quit (8) Metabolic encephalopathy: Multifactorial Secondary to Infection, renal failure, DKA, Alcohol use Monitor (9) MRSA (methicillin resistant Staphylococcus aureus) carrier: Nasal MRSA screen positive. Contact isolation (10) Bacteriuria: as above (11) DVT prophylaxis: Heparin SQ Monitor for bleeding (12) Discharge planning issues: To be determined Admission and Anticipated Discharge Date Admission Date: February 27, 2020 Subjective Patient is seen and examined at bedside Reports fatigue and abdominal discomfort On Precedex drip Self feeding during my encounter Denies any bleeding issues Denies chest pain , SOB, dizziness, nausea Review of Systems Review of Systems: All systems reviewed & are unremarkable except as noted in HPI & below Physical Exam Physical Exam: Physical Exam: Vitals signs as noted above General Appearance:Moderately built and nourished, no apparent distress Head: normocephalic, Atraumatic Eyes: normal inspection Neck: supple, Trachea midline Respiratory/Chest: Decreased breath sounds, CTA Cardiovascular: S1, S2, No murmur Abdomen/GI:Soft, Non tender, distended, Bowel sounds present Extremities/Musculoskelatal:normal inspection, no edema Neurologic/Psych:grossly no focal neurological deficits Skin: normal color, warm Results & Data Results & Data ([facility]) Vital Signs (Past 12 Hours) Vital Signs Temp Pulse Resp BP Pulse Ox 03/03/20 08:00 36.4 C L 81 26 H 94/72 L 99 03/03/20 07:00 72 22 118/86 98 Laboratory Results Short CBC 03/03/20 Range/Units 04:36 WBC 7.27 (4.8-10.8) K/uL Hgb 9.7 L (12.0-16.0) g/dL Hct 30.6 L (37-47) % Plt Count 198 (130-400) K/uL BMP 03/03/20 04:36 Sodium 143 Potassium 4.1 Chloride 111 H Carbon Dioxide 26 BUN 37 H Creatinine 1.90 H Glucose 185 H Calcium 9.5 Liver Function 03/03/20 Range/Units 04:36 Total Bilirubin 0.9 (0.2-1) mg/dl Direct Bilirubin 0.5 H (0-0.2) mg/dl AST 74 H (15-37) U/L ALT 61 (12-78) U/L Alkaline Phosphatase 163 H (45-117) U/L Albumin 2.2 L (3.4-5.0) gm/dl (1) Acute pancreatitis Acute pancreatitis complication: unspecified Pancreatitis type: alcohol induced Qualified Code(s): K85.20 - Alcohol induced acute pancreatitis without necrosis or infection
[2020-03-03] MEDS: PANTOprazole 40 MG TAB PO SCH (20:55)
[2020-03-04] MEDS: POTASSIUM CHLORIDE 20 MEQ in DEXTROSE 5% 1,000 ML IV SCH (03:35)
[2020-03-04] MEDS: LORazepam 2 MG/4 ML VIAL IV PRN (04:57)
[2020-03-04 05:03] LABS: Hematocrit (blood only) 29.2 % (37-47); Hemoglobin 9.6 g/dL (12.0-16.0); Mean Corpuscular Hemoglobin 33.4 pg (25-34); Mean Corpuscular Hgb Conc 32.9 g/dL (32-36); Mean Corpuscular Volume 101.7 fL (80-100); Mean Platelet Volume 10.8 fL (7.4-10.4); Platelet Count 242 K/uL (130-400); RDW Coefficient of Variation 16.5 % (11.5-14.5); Red Blood Count 2.87 M/uL (4.2-5.4); White Blood Count 7.93 K/uL (4.8-10.8)
[2020-03-04 05:26] LABS: Stomatocytes 1+; Toxic Granulation 2+
[2020-03-04 05:34] LABS: BUN Creatinine Ratio 13.6 (10-20); Est GFR (Non-African American) 33.6; Magnesium 1.5 mg/dl (1.8-2.4); Phosphorus 4.1 mg/dl (2.5-4.9); Potassium 3.9 mmol/L (3.5-5.1)
[2020-03-04 05:48] LABS: Neutrophils # (manual) 5.65 K/uL (1.4-6.5); Neutrophils % (manual) 71.3 %
[2020-03-04 05:59] LABS: Lymphocytes % (manual) 16.5 %; Monocytes % (manual) 6.1 %; Myelocytes % (manual) 1.7 %
[2020-03-04 06:00] LABS: Metamyelocytes % (manual) 4.3 %
[2020-03-04 06:04] LABS: Lymphocytes # (manual) 1.31 K/uL (1.2-3.4)
[2020-03-04 06:05] LABS: Metamyelocytes # (manual) 0.34 K/uL (0-0); Monocytes # (manual) 0.48 K/uL (0.11-0.59); Myelocytes # (manual) 0.13 K/uL (0-0)
[2020-03-04] MEDS: MAGNESIUM SULFATE / D5W 1 GM/100 ML BAG IV SCH ×3 (06:26→10:24)
[2020-03-04] MEDS: LORazepam 3 MG/6 ML VIAL IV SCH ×2 (07:54→16:21)
[2020-03-04] MEDS: MULTIVITAMIN TAB PO SCH (07:55)
[2020-03-04] MEDS: HEPARIN SOD 5,000 UNIT/0.5 ML VIAL SQ SCH ×2 (07:55→21:53)
[2020-03-04] MEDS: PANTOprazole 40 MG TAB PO SCH ×2 (07:56→21:52)
[2020-03-04] MEDS: FOLIC ACID 1 MG TAB PO SCH (07:56)
[2020-03-04] MEDS: THIAMINE HCL 100 MG TAB PO SCH (07:56)
[2020-03-04] MEDS: INSULIN ASPART 100 UNITS/ML 3 ML PEN SC SCH ×4 (07:57→21:51)
[2020-03-04] MEDS: INSULIN GLARGINE SOLOSTAR 100 UNITS/ML 3 ML PEN SC SCH (08:01)
--- NOTE | 2020-03-04 09:18 | Nephrology Progress Note ---
Date of Service March 04, 2020 Assessment & Plan (1) Acute renal failure (ARF): Improving nonoliguric stage III acute renal failure from ATN in the setting of pancreatitis and complicated by severe prerenal process with DKA. Had been hypertensive with mild tachycardia from alcohol withdrawal, resolved with dexmedetomidine addition. about 1/2 L + past 24 hr; on whole just over 6L + this admission. Presenting creatinine 7.8 on 02/26; baseline creatinine 0.8. on 03/03, creatinine 1.8 today, improving daily. Hemoglobin stable Currently on D5W w/ 20 mEq/L k AT 75 ml hourly -Daily BMP -cont to avoid nephrotoxins (2) Electrolyte and fluid disorder: Patient with hypomagnesemia this morning. She is receiving IV magnesium supplements. Monitor magnesium and phosphorus daily Admission and Anticipated Discharge Date Admission Date: February 27, 2020 Subjective Patient feels better today denies any shortness of breath or pain. She is sitting up in the chair. Still has tachycardia. Review of Systems Review of Systems: All systems reviewed & are unremarkable except as noted in HPI & below Physical Exam Physical Exam: General exam: Appears comfortable, no acute distress HEENT: Pupils are equal and reactive to light Neck: No JVD, neck is supple trachea is midline Respiratory system: Clear breath sounds bilaterally. Gastrointestinal: Abdomen is soft, non distended, non tender, bowel sounds are present CVS: Sinus tachycardia. No murmurs, rubs or gallops Musculoskeletal: No joint or muscle tenderness Extremities: Non tender, no edema, peripheral pulses are present Neuro: Oriented, no tremors, no focal neurological deficits Skin: No rashes Results & Data ([facility]) Vital Signs (Past 12 Hours) Vital Signs Temp Pulse Resp BP Pulse Ox 03/04/20 08:00 153 H 17 125/76 95 03/04/20 07:00 76 17 144/97 H 96 03/04/20 06:11 74 16 93/69 L 99 03/04/20 06:00 82 17 96 03/04/20 05:11 86 14 125/93 99 03/04/20 05:00 76 19 98 03/04/20 04:10 82 18 111/67 95 03/04/20 04:00 37.0 C 81 17 96 03/04/20 03:10 64 15 112/71 96 03/04/20 03:00 63 18 95 03/04/20 02:10 72 16 94/67 L 98 03/04/20 02:00 69 16 97 03/04/20 01:10 78 15 103/64 97 03/04/20 01:00 78 17 95 03/04/20 00:14 37.4 C 03/04/20 00:11 82 15 111/71 97 03/04/20 00:00 85 15 97 03/03/20 23:10 70 20 101/69 97 03/03/20 23:00 68 15 97 03/03/20 22:10 76 15 115/71 98 03/03/20 22:00 72 15 96 03/03/20 21:28 82 20 101/82 99 Laboratory Results 03/04/20 04:49 03/04/20 03/04/20 04:49 04:49 WBC 7.93 RBC 2.87 L MCV 101.7 H MCH 33.4 MCHC 32.9 RDW Std Deviation 62.0 H RDW Coeff of Suzanne 16.5 H Plt Count 242 MPV 10.8 H Phosphorus 4.1
[2020-03-04] MEDS ORDERED: Nursing to Pharmacy Communication SCH (09:45)
--- NOTE | 2020-03-04 10:11 | Critical Care Progress Note ---
Date of Service March 04, 2020 Assessment & Plan (1) Acute renal failure (ARF): --Alcohol withdrawal On Ativan [id number] Precedex started 03/01 Keep patient RASS -1 Patient is currently maintaining her airway. If there is any compromise in that will intubate the patient. BiPAP nightly and PRN shortness of breath --Status post acute renal failure Making good amount of urine, improving Likely prerenal from severe DKA with a component of ATN Strict in and out Avoid nephrotoxic medication Nephrology on board follow-up recommendations --Status post DKA New onset DKA, blood sugar admission 702 Status post insulin drip ICU hyperglycemia protocol --Macrocytic anemia with melanotic stools Monitor H&H Transfuse if hemoglobin less than 7 Patient had melanotic stool but hemoglobin has been stable. GI on board. --Elevated liver enzymes Meld score 26, 19.6% mortality in the next 3 months Discriminant factor: 2.9 Likely from alcohol abuse Monitor LFTs --Status post acute pancreatitis Likely secondary to alcohol abuse Patient tolerating p.o. diet --Status post metabolic encephalopathy Likely secondary to severe acidosis on top of uremia TSH 0.88, UDS negative Improved Monitor --UTI Pansensitive E. coli and Klebsiella S/p levofloxacin for the time being, QTc 439 --Prophylaxis VTE: Compression boots --> heparin started 03/03/2020thrombocytopenia improved GI: Protonix Lines: Peripheral Diet: Diabetic, advance as tolerated. Plan: In/out: Positive to 72, urine output 2950 DC Smart and IV fluids today. Continue with p.o. Ativan 3 mg every 8 hours. If there is significant improvement in her mental status will change to every 12 and then as needed Electrolytes are being replaced. Patient will need physical therapy and placement. Magnesium being replaced. I have personally spent 35 minutes of critical care time in the direct management of this patient. This is a life/limb threatening event. This includes time spent evaluating patient, direct bedside care, chart review, placing orders, interpretation of diagnostic studies, discussion with consultants, patient, and family members, as well as other required patient management activities. This time is exclusive of all separately billable procedures, and teaching time and separate from and in addition to any other critical care service time. Please note the above document was generated using voice recognition software. It may contain grammatical, syntax or spelling errors. (2) DKA (diabetic ketoacidoses): (3) Acute pancreatitis: (4) Elevated LFTs: (5) Acidosis, metabolic: Admission and Anticipated Discharge Date Admission Date: February 27, 2020 Subjective Patient seen and examined at bedside. No acute distress, no adverse events overnight. Patient has been off Precedex drip. She is answering questions appropriately. She is more alert. She was sitting on the chair at the time of examination. Does not complain of shortness of breath, no chest pain, no dizziness. She does get very tachycardic when she moves. Review of Systems Review of Systems: All systems reviewed & are unremarkable except as noted in Subjective Physical Exam Physical Exam: Constitutional: No acute distress HEENT: EOMI, PERRLA Respiratory system: Decreased air entry bilaterally, no wheeze, rhonchi, minimal crackles bilateral lower lobes CVS: S1-S2 positive, no murmurs or gallops Abdomen: Soft, nontender, positive bowel sounds x4, distended not tense, obese Extremities: +2 pulses bilaterally radialis/ dorsalis pedis, no cyanosis, no edema Neuro: Awake alert oriented to self, place and time Psych: Calm mood and affect G/U: Positive Smart Skin: no rashes, warm and dry Lymphatic: no cervical or axillary lymphadenopathy Results & Data Results & Data ([facility]) Vital Signs (Past 12 Hours) Vital Signs Temp Pulse Resp BP Pulse Ox 03/04/20 08:00 153 H 17 125/76 95 03/04/20 07:00 76 17 144/97 H 96 03/04/20 06:11 74 16 93/69 L 99 03/04/20 06:00 82 17 96 03/04/20 05:11 86 14 125/93 99 03/04/20 05:00 76 19 98 03/04/20 04:10 82 18 111/67 95 03/04/20 04:00 37.0 C 81 17 96 03/04/20 03:10 64 15 112/71 96 03/04/20 03:00 63 18 95 03/04/20 02:10 72 16 94/67 L 98 03/04/20 02:00 69 16 97 03/04/20 01:10 78 15 103/64 97 03/04/20 01:00 78 17 95 03/04/20 00:14 37.4 C 03/04/20 00:11 82 15 111/71 97 03/04/20 00:00 85 15 97 03/03/20 23:10 70 20 101/69 97 03/03/20 23:00 68 15 97 03/03/20 22:10 76 15 115/71 98 03/04/20 04:49 03/04/20 04:49 Coding Level of Care Code Critical Care 1st 30-74 mins Diagnoses Acute renal failure (ARF) N17.9 DKA (diabetic ketoacidoses) E10.10 Diabetes mellitus complication detail: without coma Diabetes mellitus type: type 1 Acute pancreatitis K85.20 Acute pancreatitis complication: unspecified Pancreatitis type: alcohol induced Elevated LFTs R79.89 Acidosis, metabolic E87.2 Time Spent (min) 35 (1) DKA (diabetic ketoacidoses) Diabetes mellitus complication detail: without coma Diabetes mellitus type: type 1 Qualified Code(s): E10.10 - Type 1 diabetes mellitus with ketoacidosis without coma (2) Acute pancreatitis Acute pancreatitis complication: unspecified Pancreatitis type: alcohol induced Qualified Code(s): K85.20 - Alcohol induced acute pancreatitis without necrosis or infection
[2020-03-04] MEDS ORDERED: INSULIN GLARGINE SOLOSTAR 100 UNITS/ML 3 ML PEN SC SCH (11:30)
--- NOTE | 2020-03-04 15:21 | Hospitalist Progress Note ---
Date of Service March 04, 2020 Assessment & Plan (1) Hyperglycemia: Diabetic Ketoacidosis In setting of infection Metabolic Acidosis HbA1C:5.8 Continue Insulin therapy Monitor electrolytes and replace as needed Blood glucose levels stable Continue current management (2) Acidosis, metabolic: Secondary to above Received IV Bicarbonate Bicarbonate levels normalized (3) REG (acute kidney injury): Acute Kidney Injury Hypernatremia Hyperchloremia Likely ATN Nonoliguric Cr: 7.7>6.2>4.59> 3.92>2.19>1.8 Monitor renal function Avoid nephrotoxic agents as able Received IV fluids Appreciate Nephrology input Needs follow-up with nephrology upon discharge (4) Acute pancreatitis: --CT ABD:Findings compatible with acute pancreatitis. No peripancreatic fluid collection. No biliary or pancreatic ductal dilation. Hepatomegaly with hepatic steatosis. Distended mildly hyperdense gallbladder may reflect intraluminal sludge. No bowel obstruction or bowel wall thickening. Normal appendix. Nonobstructing left nephrolithiasis. Serum lipase 778 Continue IV fluids Appreciate GI input Monitor Tolerating diet (5) Nausea and vomiting: Likely multifactorial Continue PPI Anti-emetics PRN GI following Resolved Melena May need EGD prior to discharge Transfuse PRBCs as needed Monitor CBC Appreciate GI input Continue PPI Hb stable (6) Alcohol withdrawal: Alcohol Withdrawal Transaminitis H/O Heavy alcohol consumption. Continue alcohol withdrawal protocol Continue thiamine, folic acid Off of Precedex drip BiPAP PRN Consider changing Ativan to PO Improving UTI Urine Culture: E. coli, Klebsiella Blood Culture: No growth to date Completed Levaquin course (7) Alcoholism: Counseled to quit (8) Metabolic encephalopathy: Multifactorial Secondary to Infection, renal failure, DKA, Alcohol use Resolved (9) MRSA (methicillin resistant Staphylococcus aureus) carrier: Nasal MRSA screen positive. Contact isolation (10) Bacteriuria: as above (11) DVT prophylaxis: Heparin SQ Monitor for bleeding (12) Discharge planning issues: Interested in Alcohol Rehab Placement Case Management consulted Admission and Anticipated Discharge Date Admission Date: February 27, 2020 Subjective Patient is seen and examined at bedside Abdominal pain better today Tolerating diet Off Precedex drip this morning Tachycardic on monitor Denies chest pain, SOB, dizziness, nausea, vomiting, abdominal pain, bleeding Offers no other complaints Review of Systems Review of Systems: All systems reviewed & are unremarkable except as noted in HPI & below Physical Exam Physical Exam: Physical Exam: Vitals signs as noted above General Appearance:Moderately built and nourished, no apparent distress Head: normocephalic, Atraumatic Eyes: normal inspection Neck: supple, Trachea midline Respiratory/Chest: Decreased breath sounds, CTA Cardiovascular: S1, S2, No murmur, +Tachycardia Abdomen/GI:Soft, Non tender, distended, Bowel sounds present Extremities/Musculoskelatal:normal inspection, no edema Neurologic/Psych:grossly no focal neurological deficits Skin: normal color, warm Results & Data Results & Data ([facility]) Vital Signs (Past 12 Hours) Vital Signs Temp Pulse Resp BP Pulse Ox 03/04/20 12:00 121 H 20 108/81 99 03/04/20 11:00 94 H 17 96/61 L 98 03/04/20 10:00 106 H 16 91/59 L 95 03/04/20 09:00 146 H 18 89/66 L 96 03/04/20 08:00 153 H 17 125/76 95 03/04/20 07:00 76 17 144/97 H 96 03/04/20 06:11 74 16 93/69 L 99 03/04/20 06:00 82 17 96 03/04/20 05:11 86 14 125/93 99 03/04/20 05:00 76 19 98 03/04/20 04:10 82 18 111/67 95 03/04/20 04:00 37.0 C 81 17 96 Laboratory Results Short CBC 03/04/20 Range/Units 04:49 WBC 7.93 (4.8-10.8) K/uL Hgb 9.6 L (12.0-16.0) g/dL Hct 29.2 L (37-47) % Plt Count 242 (130-400) K/uL BMP 03/04/20 04:49 Sodium 139 Potassium 3.9 Chloride 106 Carbon Dioxide 23 BUN 25 H Creatinine 1.80 H Glucose 168 H Calcium 9.0 (1) Acute pancreatitis Acute pancreatitis complication: unspecified Pancreatitis type: alcohol induced Qualified Code(s): K85.20 - Alcohol induced acute pancreatitis without necrosis or infection
[2020-03-05] MEDS: LORazepam 3 MG/6 ML VIAL IV SCH (00:44)
[2020-03-05 04:56] LABS: Hematocrit (blood only) 29.5 % (37-47); Hemoglobin 9.6 g/dL (12.0-16.0); Mean Corpuscular Hemoglobin 33.3 pg (25-34); Mean Corpuscular Hgb Conc 32.5 g/dL (32-36); Mean Corpuscular Volume 102.4 fL (80-100); Mean Platelet Volume 10.6 fL (7.4-10.4); Platelet Count 256 K/uL (130-400); RDW Coefficient of Variation 16.5 % (11.5-14.5); RDW Standard Deviation 62.4 fL (36.4-46.3); Red Blood Count 2.88 M/uL (4.2-5.4); White Blood Count 7.38 K/uL (4.8-10.8)
[2020-03-05 05:50] LABS: Calcium 9.8 mg/dl (8.5-10.1); Creatinine Clr Calc Pharmacy 41.3 ml/min; Est GFR (African American) 40.1; Est GFR (Non-African American) 34.6; Magnesium 2.3 mg/dl (1.8-2.4); Phosphorus 4.6 mg/dl (2.5-4.9); Potassium 3.4 mmol/L (3.5-5.1)
[2020-03-05] MEDS ORDERED: POTASSIUM CHLORIDE 20 MEQ TABCR PO STA (06:14)
[2020-03-05] MEDS: DEXMEDETOMIDINE HCL 200 MCG in SODIUM CHLORIDE 0.9% 48 ML IV SCH ×2 (07:38→07:39)
[2020-03-05] MEDS: LORazepam 1 MG TAB PO SCH ×3 (07:41→22:24)
[2020-03-05] MEDS: FOLIC ACID 1 MG TAB PO SCH (07:41)
[2020-03-05] MEDS: HEPARIN SOD 5,000 UNIT/0.5 ML VIAL SQ SCH ×2 (07:41→19:51)
[2020-03-05] MEDS: PANTOprazole 40 MG TAB PO SCH ×2 (07:42→19:51)
[2020-03-05] MEDS: THIAMINE HCL 100 MG TAB PO SCH (07:42)
[2020-03-05] MEDS: MULTIVITAMIN TAB PO SCH (07:42)
[2020-03-05] MEDS: INSULIN ASPART 100 UNITS/ML 3 ML PEN SC SCH ×4 (07:43→20:44)
[2020-03-05] MEDS: INSULIN GLARGINE SOLOSTAR 100 UNITS/ML 3 ML PEN SC SCH (08:23)
[2020-03-05] MEDS ORDERED: ALBUTEROL HFA 8 GM INHALER INH PRN (09:07)
--- NOTE | 2020-03-05 09:37 | Critical Care Progress Note ---
Date of Service March 05, 2020 Assessment & Plan (1) Acute renal failure (ARF): --Alcohol withdrawal On Ativan [id number] Precedex started 03/01, DC'd 03/03/2020 BiPAP nightly and PRN shortness of breath --Status post acute renal failure Making good amount of urine, improving Likely prerenal from severe DKA with a component of ATN Strict in and out Avoid nephrotoxic medication Nephrology on board follow-up recommendations --Status post DKA New onset DKA, blood sugar admission 702 Status post insulin drip ICU hyperglycemia protocol --Macrocytic anemia with melanotic stools Monitor H&H Transfuse if hemoglobin less than 7 Patient had melanotic stool but hemoglobin has been stable. GI on board. --Elevated liver enzymes Meld score 26, 19.6% mortality in the next 3 months Discriminant factor: 2.9 Likely from alcohol abuse Monitor LFTs --Status post acute pancreatitis Likely secondary to alcohol abuse Patient tolerating p.o. diet --Status post metabolic encephalopathy Likely secondary to severe acidosis on top of uremia TSH 0.88, UDS negative Improved Monitor --UTI Pansensitive E. coli and Klebsiella S/p levofloxacin for the time being, QTc 439 --Prophylaxis VTE: Compression boots --> heparin started 03/03/2020thrombocytopenia improved GI: Protonix Lines: Peripheral Diet: Diabetic, advance as tolerated. Plan: In/out: +780, urine output 1751 Electrolytes being replaced. Physical therapy has been consulted. Continue with Ativan 3 mg every 8 hours p.o. for the time being. Please gradually titrated off may be decreasing it to 2 every 8hrs and then as needed. Patient is hemodynamically as well as mentally stable to be downgraded to a medical floor. Please note the above document was generated using voice recognition software. It may contain grammatical, syntax or spelling errors. (2) DKA (diabetic ketoacidoses): (3) Acute pancreatitis: (4) Elevated LFTs: (5) Acidosis, metabolic: Admission and Anticipated Discharge Date Admission Date: February 27, 2020 Subjective Patient seen and examined at bedside. No acute distress, no adverse events overnight. Patient has been off Precedex since more than 24 hours. She is getting Ativan p.o. every 8 hours. No hallucinations. She is more alert talking having food on her own. Sitting on the chair at the time of examination. Denies any belly pain, no nausea or vomiting. Review of Systems Review of Systems: All systems reviewed & are unremarkable except as noted in Subjective Physical Exam Physical Exam: Constitutional: No acute distress HEENT: EOMI, PERRLA Respiratory system: Decreased air entry bilaterally, no wheeze, rhonchi, minimal crackles bilateral lower lobes CVS: S1-S2 positive, no murmurs or gallops Abdomen: Soft, nontender, positive bowel sounds x4, distended not tense, obese Extremities: +2 pulses bilaterally radialis/ dorsalis pedis, no cyanosis, no reji ma Neuro: Awake alert oriented to self, place and time Psych: Calm mood and affect G/U: No Smart Skin: no rashes, warm and dry Lymphatic: no cervical or axillary lymphadenopathy Results & Data Results & Data ([facility]) Vital Signs (Past 12 Hours) Vital Signs Temp Pulse Resp BP Pulse Ox 03/05/20 08:00 128 H 19 115/54 L 97 03/05/20 07:10 111 H 17 125/81 85 L 03/05/20 07:00 134 H 25 H 97 03/05/20 06:10 86 22 117/65 94 03/05/20 06:00 85 30 H 94 03/05/20 05:10 88 17 106/65 98 03/05/20 05:00 94 H 45 H 98 03/05/20 04:40 90 14 108/70 97 03/05/20 04:12 36.8 C 104 H 16 111/101 H 03/05/20 04:01 107 H 17 90 03/05/20 03:59 105 H 16 101/77 94 03/05/20 03:00 88 17 95 03/05/20 02:10 93 H 19 110/69 97 03/05/20 01:11 92 H 15 95/61 L 95 03/05/20 00:10 36.7 C 99 H 17 109/61 94 03/05/20 00:00 94 H 17 95 03/04/20 23:10 96 H 25 H 111/74 99 03/04/20 23:00 100 H 15 98 03/04/20 22:10 93 H 19 114/81 94 03/04/20 22:00 87 15 03/05/20 04:31 03/05/20 04:31 Coding Level of Care Code 95511 Subseq Hosp Care Lvl 3 Diagnoses Acute renal failure (ARF) N17.9 DKA (diabetic ketoacidoses) E10.10 Diabetes mellitus complication detail: without coma Diabetes mellitus type: type 1 Acute pancreatitis K85.20 Acute pancreatitis complication: unspecified Pancreatitis type: alcohol induced Elevated LFTs R79.89 Acidosis, metabolic E87.2 (1) DKA (diabetic ketoacidoses) Diabetes mellitus complication detail: without coma Diabetes mellitus type: type 1 Qualified Code(s): E10.10 - Type 1 diabetes mellitus with ketoacidosis without coma (2) Acute pancreatitis Acute pancreatitis complication: unspecified Pancreatitis type: alcohol induced Qualified Code(s): K85.20 - Alcohol induced acute pancreatitis without necrosis or infection
[2020-03-05] MEDS: FLUTICASONE/VILANTEROL 200/25MCG 14 PUFFS/INHALER INH SCH (10:10)
--- NOTE | 2020-03-05 14:22 | Hospitalist Progress Note ---
Date of Service March 05, 2020 Assessment & Plan (1) Hyperglycemia: Diabetic Ketoacidosis In setting of infection Metabolic Acidosis HbA1C:5.8 Monitor electrolytes and replace as needed Blood glucose levels stable Continue Insulin therapy (2) Acidosis, metabolic: Secondary to above Received IV Bicarbonate Bicarbonate levels normalized (3) REG (acute kidney injury): Acute Kidney Injury Hypernatremia Hyperchloremia Likely ATN Nonoliguric Cr: 7.7>6.2>4.59> 3.92>2.19>1.8>1.76 Monitor renal function Avoid nephrotoxic agents as able Received IV fluids Appreciate Nephrology input Needs follow-up with nephrology upon discharge Renal function continues to improve Hypokalemia Normal magnesium levels Replete electrolytes as needed Monitor (4) Acute pancreatitis: --CT ABD:Findings compatible with acute pancreatitis. No peripancreatic fluid collection. No biliary or pancreatic ductal dilation. Hepatomegaly with hepatic steatosis. Distended mildly hyperdense gallbladder may reflect intraluminal sludge. No bowel obstruction or bowel wall thickening. Normal appendix. Nonobstructing left nephrolithiasis. Serum lipase [id number]>>[id number] Received IV fluids Appreciate GI input Monitor Tolerating regular diet (5) Nausea and vomiting: Likely multifactorial Continue PPI Anti-emetics PRN Appreciate GI Input Resolved Melena May need EGD prior to discharge Transfuse PRBCs as needed Monitor CBC Appreciate GI input Continue PPI Hb stable (6) Alcohol withdrawal: Alcohol Withdrawal Transaminitis H/O Heavy alcohol consumption. Continue alcohol withdrawal protocol Continue thiamine, folic acid Off of Precedex drip BiPAP HS and PRN Continue Ativan 3 mg Q8H Taper benzodiazepines as able UTI Urine Culture: E. coli, Klebsiella Blood Culture: No growth to date Completed Levaquin course (7) Alcoholism: Counseled to quit (8) Metabolic encephalopathy: Multifactorial Secondary to Infection, renal failure, DKA, Alcohol use Resolved (9) MRSA (methicillin resistant Staphylococcus aureus) carrier: Nasal MRSA screen positive. Contact isolation (10) Bacteriuria: as above (11) DVT prophylaxis: Heparin SQ Monitor for bleeding (12) Discharge planning issues: Interested in Alcohol Rehab Placement Case Management consulted Admission and Anticipated Discharge Date Admission Date: February 27, 2020 Subjective Complains of generalized weakness and significant fatigue this morning Tolerating diet Off Precedex drip for more than 24 hours Ativan transition to p.o. Denies any hallucinations Also denies any bleeding issues Remains tachycardic on monitor Denies chest pain, SOB, dizziness, nausea, vomiting, abdominal pain Plan to be transferred out of ICU today Review of Systems Review of Systems: All systems reviewed & are unremarkable except as noted in HPI & below Physical Exam Physical Exam: Physical Exam: Vitals signs as noted above General Appearance:Moderately built and nourished, no apparent distress Head: normocephalic, Atraumatic Eyes: normal inspection Neck: supple, Trachea midline Respiratory/Chest: Decreased breath sounds, CTA Cardiovascular: S1, S2, No murmur, +Tachycardia Abdomen/GI:Soft, Non tender, distended, Bowel sounds present Extremities/Musculoskelatal:normal inspection, no edema Neurologic/Psych:grossly no focal neurological deficits Skin: normal color, warm Results & Data Results & Data ([facility]) Vital Signs (Past 12 Hours) Vital Signs Temp Pulse Resp BP Pulse Ox 03/05/20 12:00 36.7 C 143 H 16 113/69 99 03/05/20 11:00 120 H 18 85/46 L 95 03/05/20 10:35 98 03/05/20 10:00 118 H 17 99/72 L 100 03/05/20 09:11 134 H 27 H 100/64 92 03/05/20 09:00 128 H 17 93 03/05/20 08:00 128 H 19 115/54 L 97 03/05/20 07:10 111 H 17 125/81 85 L 03/05/20 07:00 134 H 25 H 97 03/05/20 06:10 86 22 117/65 94 03/05/20 06:00 85 30 H 94 03/05/20 05:10 88 17 106/65 98 03/05/20 05:00 94 H 45 H 98 03/05/20 04:40 90 14 108/70 97 03/05/20 04:12 36.8 C 104 H 16 111/101 H 03/05/20 04:01 107 H 17 90 03/05/20 03:59 105 H 16 101/77 94 03/05/20 03:00 88 17 95 Laboratory Results Short CBC 03/05/20 Range/Units 04:31 WBC 7.38 (4.8-10.8) K/uL Hgb 9.6 L (12.0-16.0) g/dL Hct 29.5 L (37-47) % Plt Count 256 (130-400) K/uL BMP 03/05/20 04:31 Sodium 140 Potassium 3.4 L Chloride 105 Carbon Dioxide 25 BUN 18 Creatinine 1.76 H Glucose 115 H Calcium 9.8 (1) Acute pancreatitis Acute pancreatitis complication: unspecified Pancreatitis type: alcohol induced Qualified Code(s): K85.20 - Alcohol induced acute pancreatitis without necrosis or infection
--- NOTE | 2020-03-05 14:52 | Pharmacy Report ---
Pharmacy Glycemic Short Note 2 - Date of Service March 05, 2020 - Glycemic Short BSG Results (Last 24 hours): 03/04/20 03/04/20 03/05/20 16:18 21:22 04:31 Glucose 115 H POC Glucose 114 H 125 H 03/05/20 03/05/20 07:33 11:11 Glucose POC Glucose 127 H 183 H OUTPATIENT ANTIDIABETIC REGIMEN: * N/A * A1c = 5.8% 02/28/20 ASSESSMENT: 03/04: * Patient had excellent glycemic control over the past 24 hour with the exception of elevated fasting BSG of 180 mg/dL * Lantus dose was increased 20% yesterday. Fasting BSG today improved to 127 mg/dL. * Post prandial BSGs are mostly at goal. I will slightly tighten carb coverage. 03/03 * Glycemic control remains acceptable. BSGs have ranged 134-183 over last 24 hrs. * BSGs did trend upwards with the increased rate of IV dextrose administration yesterday. IV dextrose continues today but at a reduced rate. I did temporarily increase her Novolog correctional doses to compensate for the increase IVF rate. This dose will be reduced again given change in IVF rate and possible removal of dextrose from maint IVF in near future. * Patient's mental status has been improving and she is tolerating PO meds and diet thus far today - will monitor post-prandial BSGs. 03/02 * BSGs ranged 77-162 over last 24 hrs, most of which between 110-160 * Patient's PO intake remains poor due to mental status and sedation. Dextrose containing IVFs continue today, but at a slightly higher rate. * Plan to continue current insulin doses for next 24 hrs and follow BSG pattern 03/01 * Patient successfully transitioned off insulin drip yesterday * Fasting BSGs 77-93 this AM with 20 units of Lantus on board - will decrease dose ~20% at this time as a precaution. Of note, patient appears to be experiencing alcohol withdrawal and not eating consistently due to mental status and/or sedation induced by benzo's. Dextrose has been incorporated into IVFs to prevent hypoglycemia in anticipation of poor PO intake today * Novolog prandial dose will be decreased today given fall in BSG observed last evening following dinner 02/28 * Pre-diabetic admitted for severe DKA, non-oligouric REG, and pancreatitis in the setting of heavy alcohol intake. Initial clinical presentation may have also been muddied by alcoholic ketoacidosis * Patient was treated w/ aggressive fluid resuscitation, IV insulin infusion and e-lyte replacement * Mild AG acidosis continues, NAGMA also present today - possibly due to REG and hyperchloremia - of note, serum ketones had normalized on yesterday's labs. * Insulin drip continues at this time, however may transition to SQ as metabolic abnormalities explainable by other dz processes * Initial insulin doses will be based upon patient weight and "mild-moderate" stress level. I am hesitant to give higher doses due to A1c 5.8%, significant renal impairment (but improving) and uncertain PO intake. If underlying pancreatitis leading to impaired insulin production, pt may behave like type 1 when stressed. PLAN FOR INPATIENT GLYCEMIC CONTROL: * Basal insulin * Lantus 17 units SQ daily * Bolus insulin * NovoLog per scale ACHS and 0200 check given changing clinical condition, possibly changing insulin needs * Goal Range: Low 110 mg/dL - High 140 mg/dL * Correction Factor: 25 mg/dL/unit * Nutritional / Prandial insulin per carb ratio of 1 unit per 9 grams CHO consumed PLAN FOR DISCHARGE: * Given patient's presentation was DKA, discharge on insulin w/ close endocrinology f/u warranted. * May consider: * Lantus 17 units SQ daily * Prandial insulin TID with meals: 4 units for high carb meal, 2 units for low carb meal
--- NOTE | 2020-03-05 20:14 | Nephrology Progress Note ---
Date of Service March 05, 2020 Assessment & Plan (1) Acute renal failure (ARF): Improving nonoliguric stage III acute renal failure from ATN in the setting of pancreatitis and complicated by severe prerenal process with DKA. Had been hypertensive with mild tachycardia from alcohol withdrawal, resolved with dexmedetomidine addition. about 1/2 L + past 24 hr; on whole just over 6L + this admission. Presenting creatinine 7.8 on 02/26; baseline creatinine 0.8. on 03/03, creatinine 1.76 today, improving daily. Hemoglobin stable -Daily BMP -cont to avoid nephrotoxins (2) Electrolyte and fluid disorder: Patient with hypomagnesemia and low phos due to alcohol use. Monitor magnesium and phosphorus daily Admission and Anticipated Discharge Date Admission Date: February 27, 2020 Subjective Feels better. Eating and drinking well. No SOB. Making good amounts of urine. Cr downtrending Review of Systems Review of Systems: All systems reviewed & are unremarkable except as noted in HPI & below Physical Exam Physical Exam: General exam: Appears comfortable, no acute distress HEENT: Pupils are equal and reactive to light Neck: No JVD, neck is supple trachea is midline Respiratory system: Clear breath sounds bilaterally. Gastrointestinal: Abdomen is soft, non distended, non tender, bowel sounds are present CVS: Regular rate and rhythm. No murmurs, rubs or gallops Musculoskeletal: No joint or muscle tenderness Extremities: Non tender, no edema, peripheral pulses are present Neuro: Oriented, no tremors, no focal neurological deficits Skin: No rashes Results & Data ([facility]) Vital Signs (Past 12 Hours) Vital Signs Temp Pulse Pulse Resp BP BP Pulse Ox 03/05/20 18:57 37.3 C 102 H 16 107/75 98 03/05/20 15:25 37.0 C 107 H 18 104/69 98 03/05/20 12:00 36.7 C 143 H 16 113/69 99 03/05/20 11:00 120 H 18 85/46 L 95 03/05/20 10:35 98 03/05/20 10:00 118 H 17 99/72 L 100 03/05/20 09:11 134 H 27 H 100/64 92 03/05/20 09:00 128 H 17 93 Laboratory Results 03/05/20 04:31 03/05/20 03/05/20 04:31 04:31 WBC 7.38 RBC 2.88 L MCV 102.4 H MCH 33.3 MCHC 32.5 RDW Std Deviation 62.4 H RDW Coeff of Suzanne 16.5 H Plt Count 256 MPV 10.6 H Phosphorus 4.6
[2020-03-06] MEDS: LORazepam 1 MG TAB PO SCH ×3 (05:59→21:43)
[2020-03-06 06:32] LABS: Mean Corpuscular Hemoglobin 34.2 pg (25-34); Mean Corpuscular Hgb Conc 33.3 g/dL (32-36); Mean Corpuscular Volume 102.7 fL (80-100); Platelet Count 239 K/uL (130-400); RDW Coefficient of Variation 16.2 % (11.5-14.5); Red Blood Count 2.63 M/uL (4.2-5.4); White Blood Count 6.34 K/uL (4.8-10.8)
[2020-03-06 07:03] LABS: BUN Creatinine Ratio 9.9 (10-20); Calcium 9.5 mg/dl (8.5-10.1); Creatinine Clr Calc Pharmacy 45.7 ml/min; Est GFR (African American) 47.5; Est GFR (Non-African American) 40.9; Magnesium 1.9 mg/dl (1.8-2.4); Potassium 3.4 mmol/L (3.5-5.1)
--- NOTE | 2020-03-06 07:46 | Nephrology Progress Note ---
Date of Service March 06, 2020 Assessment & Plan (1) Acute renal failure (ARF): Improving nonoliguric stage III acute renal failure from ATN in the setting of pancreatitis and complicated by severe prerenal process with DKA. Had been hypertensive with mild tachycardia from alcohol withdrawal; HTN improved but still tachy. I/O no longer accurate and not needed. Presenting creatinine 7.8 on 02/26; baseline creatinine 0.8. on 03/03, creatinine 1.53 today, improving daily though improvement slowing. Hemoglobin stable -Daily BMP -cont to avoid nephrotoxins -will need OP CKD clinic f/u > details to follow (2) Electrolyte and fluid disorder: Patient has had issues with hypomagnesemia and low phos due to alcohol use. > no supplements needed for past several days -today w/ mild hypokalemia >> ordered 40 mEq po K x 2 doses -daily bmp; will recheck mag phos (orders in) in am and if wnl, no need to cont to follow Admission and Anticipated Discharge Date Admission Date: February 27, 2020 Subjective c/o fatigue; denies sob, uncontrolled pain; NV, urinary sx or concerns Review of Systems Review of Systems: All systems reviewed & are unremarkable except as noted in HPI & below Physical Exam Constitutional: well developed, well nourished and + obese; no acute distress lying flat on RA, eyes closed most of interview Eyes: + anicteric sclerae ENMT: Ears: no external ear abnormality Nose: no external nose abnormality Mouth: + dry oral mucous membranes Neck: no nuchal rigidity Respiratory: normal respiratory effort Auscultation: lungs clear to auscultation bilaterally and + diminished lung sounds Cardiovascular: RRR, no murmur, no edema Rate/Rhythm: + tachycardic Extremities: no edema Gastrointestinal (Abdomen): Inspection/Auscultation: normal bowel sounds Percussion/Palpation: abdomen soft; abdomen nontender Skin: no rashes, warm and dry Neurologic: moves all extremities Results & Data ([facility]) Vital Signs (Past 12 Hours) Vital Signs Temp Pulse Pulse Resp BP Pulse Ox 03/06/20 06:58 36.8 C 104 H 18 122/73 95 03/06/20 03:54 107 H 16 97 03/06/20 03:34 36.7 C 95 H 18 112/70 98 03/05/20 23:48 93 H 03/05/20 23:15 37.1 C 94 H 18 115/80 98 Laboratory Results 03/06/20 05:54 03/06/20 05:54
[2020-03-06] MEDS: INSULIN ASPART 100 UNITS/ML 3 ML PEN SC SCH ×4 (08:07→19:52)
[2020-03-06] MEDS: INSULIN GLARGINE SOLOSTAR 100 UNITS/ML 3 ML PEN SC SCH (08:08)
[2020-03-06] MEDS: HEPARIN SOD 5,000 UNIT/0.5 ML VIAL SQ SCH ×2 (08:08→19:51)
[2020-03-06] MEDS: FOLIC ACID 1 MG TAB PO SCH (08:09)
[2020-03-06] MEDS: PANTOprazole 40 MG TAB PO SCH ×2 (08:09→19:50)
[2020-03-06] MEDS: MULTIVITAMIN TAB PO SCH (08:09)
[2020-03-06] MEDS: FLUTICASONE/VILANTEROL 200/25MCG 14 PUFFS/INHALER INH SCH (08:09)
[2020-03-06] MEDS: THIAMINE HCL 100 MG TAB PO SCH (08:09)
[2020-03-06] MEDS: POTASSIUM CHLORIDE 20 MEQ TABCR PO SCH ×2 (08:13→19:50)
--- NOTE | 2020-03-06 11:54 | Hospitalist Progress Note ---
Date of Service March 06, 2020 Assessment & Plan (1) Hyperglycemia: Diabetic Ketoacidosis In setting of infection Metabolic Acidosis HbA1C:5.8 Monitor electrolytes and replace as needed Blood glucose levels stable Continue Insulin therapy Plan to discharge on insulin as well (2) Acidosis, metabolic: Secondary to above Received IV Bicarbonate Bicarbonate levels normalized Resolved (3) REG (acute kidney injury): Acute Kidney Injury Hypernatremia Hyperchloremia Likely ATN Nonoliguric Cr: 7.7>6.2>4.59> 3.92>2.19>1.8>1.76>1.5 Monitor renal function Avoid nephrotoxic agents as able Received IV fluids Appreciate Nephrology input Needs follow-up with nephrology upon discharge Continues to improve Hypokalemia Normal magnesium levels Replete electrolytes as needed Monitor (4) Acute pancreatitis: --CT ABD:Findings compatible with acute pancreatitis. No peripancreatic fluid collection. No biliary or pancreatic ductal dilation. Hepatomegaly with hepatic steatosis. Distended mildly hyperdense gallbladder may reflect intraluminal sludge. No bowel obstruction or bowel wall thickening. Normal appendix. Nonobstructing left nephrolithiasis. Serum lipase 778>>372 Received IV fluids Appreciate GI input Monitor Tolerated regular diet (5) Nausea and vomiting: Likely multifactorial Continue PPI Anti-emetics PRN Appreciate GI Input Resolved Melena May need EGD prior to discharge Transfuse PRBCs as needed Monitor CBC Appreciate GI input Continue PPI Hb stable Denies any recurrence of bleeding (6) Alcohol withdrawal: Alcohol Withdrawal Transaminitis H/O Heavy alcohol consumption. Continue alcohol withdrawal protocol Continue thiamine, folic acid Off of Precedex drip BiPAP HS and PRN Taper down Ativan to 2mg Q8H Continue to monitor for withdrawal Denies hallucinations UTI Urine Culture: E. coli, Klebsiella Blood Culture: No growth to date Completed Levaquin course (7) Alcoholism: Counseled to quit (8) Metabolic encephalopathy: Multifactorial Secondary to Infection, renal failure, DKA, Alcohol use Resolved (9) MRSA (methicillin resistant Staphylococcus aureus) carrier: Nasal MRSA screen positive. Contact isolation (10) Bacteriuria: as above (11) DVT prophylaxis: Heparin SQ Monitor for bleeding (12) Discharge planning issues: Case Management consulted PT/OT:recommends Rehab placement Admission and Anticipated Discharge Date Admission Date: February 27, 2020 Subjective Patient is seen and examined at bedside No specific complaints today States feeling better today No significant withdrawal symptoms Generalized weakness/fatigue slowly improving Denies chest pain, SOB, dizziness, nausea, vomiting, abdominal pain Review of Systems Review of Systems: All systems reviewed & are unremarkable except as noted in HPI & below Physical Exam Physical Exam: Physical Exam: Vitals signs as noted above General Appearance:Moderately built and nourished, no apparent distress Head: normocephalic, Atraumatic Eyes: normal inspection Neck: supple, Trachea midline Respiratory/Chest: Decreased breath sounds, CTA Cardiovascular: S1, S2, No murmur Abdomen/GI:Soft, Non tender, distended, Bowel sounds present Extremities/Musculoskelatal:normal inspection, no edema Neurologic/Psych:grossly no focal neurological deficits Skin: normal color, warm Results & Data Results & Data ([facility]) Vital Signs (Past 12 Hours) Vital Signs Temp Pulse Pulse Resp BP Pulse Ox 03/06/20 10:59 36.6 C 98 H 18 106/64 98 03/06/20 06:58 36.8 C 104 H 18 122/73 95 03/06/20 03:54 107 H 16 97 03/06/20 03:34 36.7 C 95 H 18 112/70 98 03/05/20 23:48 93 H Laboratory Results Short CBC 03/06/20 Range/Units 05:54 WBC 6.34 (4.8-10.8) K/uL Hgb 9.0 L (12.0-16.0) g/dL Hct 27.0 L (37-47) % Plt Count 239 (130-400) K/uL BMP 03/06/20 05:54 Sodium 139 Potassium 3.4 L Chloride 107 Carbon Dioxide 24 BUN 15 Creatinine 1.53 H Glucose 124 H Calcium 9.5 (1) Acute pancreatitis Acute pancreatitis complication: unspecified Pancreatitis type: alcohol induced Qualified Code(s): K85.20 - Alcohol induced acute pancreatitis without necrosis or infection
--- NOTE | 2020-03-06 12:32 | Pharmacy Report ---
Pharmacy Glycemic Short Note 2 - Date of Service March 06, 2020 - Glycemic Short BSG Results (Last 24 hours): 03/05/20 03/05/20 03/06/20 16:18 20:24 05:54 Glucose 124 H POC Glucose 133 H 139 H 03/06/20 03/06/20 07:37 11:29 Glucose POC Glucose 134 H 92 OUTPATIENT ANTIDIABETIC REGIMEN: * N/A * A1c = 5.8% 02/28/20 ASSESSMENT: 03/05 * BSGs well controlled over last 24 hrs. * 26 units of insulin administered over last 24 hrs while tolerating a diet, although carb content of meals appears to be low * Fasting BSG at goal, FBS 124-134 this AM, w/ 17 units Lantus on board - will continue the same * Post-prandial BSGs controlled since CR changed yesterday - will continue the same 03/04 * Patient had excellent glycemic control over the past 24 hour with the exception of elevated fasting BSG of 180 mg/dL * Lantus dose was increased 20% yesterday. Fasting BSG today improved to 127 mg/dL. * Post prandial BSGs are mostly at goal. I will slightly tighten carb coverage. 03/03 * Glycemic control remains acceptable. BSGs have ranged 134-183 over last 24 hrs. * BSGs did trend upwards with the increased rate of IV dextrose administration yesterday. IV dextrose continues today but at a reduced rate. I did temporarily increase her Novolog correctional doses to compensate for the increase IVF rate. This dose will be reduced again given change in IVF rate and possible removal of dextrose from maint IVF in near future. * Patient's mental status has been improving and she is tolerating PO meds and diet thus far today - will monitor post-prandial BSGs. PLAN FOR INPATIENT GLYCEMIC CONTROL: * Basal insulin -no change * Lantus 17 units SQ daily * Bolus insulin -no change * NovoLog per scale ACHS * Goal Range: Low 110 mg/dL - High 140 mg/dL * Correction Factor: 25 mg/dL/unit * Nutritional / Prandial insulin per carb ratio of 1 unit per 9 grams CHO consumed PLAN FOR DISCHARGE: * Given patient's presentation was DKA, discharge on insulin w/ close endocrinology f/u warranted. * May consider: * Lantus 17 units SQ daily * Prandial insulin TID with meals: 4 units for high carb meal, 2 units for low carb meal
[2020-03-07] MEDS: LORazepam 1 MG TAB PO SCH ×3 (05:27→21:11)
[2020-03-07] MEDS: INSULIN ASPART 100 UNITS/ML 3 ML PEN SC SCH ×4 (07:41→21:11)
[2020-03-07] MEDS: INSULIN GLARGINE SOLOSTAR 100 UNITS/ML 3 ML PEN SC SCH (07:44)
[2020-03-07 08:00] LABS: Hematocrit (blood only) 26.8 % (37-47); Hemoglobin 8.7 g/dL (12.0-16.0)
[2020-03-07] MEDS: FLUTICASONE/VILANTEROL 200/25MCG 14 PUFFS/INHALER INH SCH (08:40)
[2020-03-07] MEDS: PANTOprazole 40 MG TAB PO SCH ×2 (08:40→19:58)
[2020-03-07] MEDS: POTASSIUM CHLORIDE 20 MEQ TABCR PO SCH ×3 (08:40→19:58)
[2020-03-07] MEDS: HEPARIN SOD 5,000 UNIT/0.5 ML VIAL SQ SCH ×2 (08:41→21:12)
[2020-03-07 08:44] LABS: BUN Creatinine Ratio 8.1 (10-20); Calcium 9.8 mg/dl (8.5-10.1); Creatinine Clr Calc Pharmacy 47.7 ml/min; Est GFR (African American) 50.2; Est GFR (Non-African American) 43.3; Magnesium 1.7 mg/dl (1.8-2.4); Phosphorus 3.6 mg/dl (2.5-4.9)
[2020-03-07] MEDS ORDERED: MAGNESIUM SULFATE / D5W 1 GM/100 ML BAG IV ONE (09:00)
[2020-03-07] MEDS: THIAMINE HCL 100 MG TAB PO SCH (09:26)
[2020-03-07] MEDS: MULTIVITAMIN TAB PO SCH (09:26)
--- NOTE | 2020-03-07 09:36 | Nephrology Progress Note ---
Date of Service March 07, 2020 Assessment & Plan (1) Acute renal failure (ARF): Improving nonoliguric stage III acute renal failure from ATN in the setting of pancreatitis (though rate of improvement slowing considerably) and complicated by severe prerenal process with DKA. Had been hypertensive with mild tachycardia from alcohol withdrawal; HTN improved; and for past few hours tachycardia improved as well. I/O no longer accurate and not needed. Presenting creatinine 7.8 on 02/26; baseline creatinine 0.8. on 03/03, creatinine 1.46 today, improving daily though improvement slowing. anemia stable. Hemoglobin stable -Daily BMP -cont to avoid nephrotoxins -electrolyte issues normalizing though still w/ hyperchloremia, hypomagnesemia >>>DISCHARGE RECOMMENDATIONS (d/c summary updated) -follow up with Dr Phillips, Dr Burrell or PA in CKD clinic in [facility] within 2 wks of discharge -needs weekly bmp and magnesium and hemoglobin until seen in clinic > nephrology will order these x 3 at discharge -imperative that she avoid NSAIDS -discharge on oral magnesium and potassium supplements (2) Electrolyte and fluid disorder: Patient has had issues with hypomagnesemia and low phos due to alcohol use. > no supplements needed for past several days however mag still low today and has needed po K supplementation -started po mag daily and po K 20 mEq bid > may need to be d/c on these medications -order already in to recheck mag for am Admission and Anticipated Discharge Date Admission Date: February 27, 2020 Subjective no interval clinical events; more alert - writing things, checking phone. denies sob, n/v, voiding concerns; using walker to get to commode Review of Systems 2 Review of Systems: All systems reviewed & are unremarkable except as noted in HPI & below Physical Exam Constitutional: well developed, well nourished and + obese; no acute distress Eyes: + anicteric sclerae ENMT: Ears: no external ear abnormality Nose: no external nose abnormality Mouth: + dry oral mucous membranes Neck: no nuchal rigidity Respiratory: normal respiratory effort Auscultation: lungs clear to auscultation bilaterally and + diminished lung sounds Cardiovascular: RRR, no murmur, no edema Rate/Rhythm: + tachycardic Extremities: no edema Gastrointestinal (Abdomen): Inspection/Auscultation: normal bowel sounds Percussion/Palpation: abdomen soft; abdomen nontender Skin: no rashes, warm and dry Neurologic: moves all extremities Results & Data ([facility]) Vital Signs (Past 12 Hours) Vital Signs Temp Pulse Resp BP Pulse Ox 03/07/20 07:07 37.0 C 81 17 110/59 L 96 03/07/20 03:58 37.3 C 80 16 109/69 97 03/06/20 23:46 37 C 93 H 18 109/67 99 Laboratory Results 03/07/20 07:09 03/07/20 07:09
[2020-03-07] MEDS: FOLIC ACID 1 MG TAB PO SCH (09:57)
[2020-03-07] MEDS: MAGNESIUM CHLORIDE 64MG DELAYED REL TAB PO SCH (10:16)
--- NOTE | 2020-03-07 10:41 | Pharmacy Report ---
Pharmacy Glycemic Short Note 2 - Date of Service March 07, 2020 - Glycemic Short BSG Results (Last 24 hours): 03/06/20 03/06/20 03/06/20 11:29 16:33 19:50 Glucose POC Glucose 92 92 129 H 03/07/20 03/07/20 07:09 07:26 Glucose 118 H POC Glucose 125 H OUTPATIENT ANTIDIABETIC REGIMEN: * N/A * A1c = 5.8% 02/28/20 ASSESSMENT: 03/06 * BSGs again well controlled with current insulin regimen * Renal fxn continues to improve * Fasting BSG 125 this AM w/ 17 units Lantus on board * Post-prandial BSGs well controlled with Novolog parameters * It appears this patient will require 25-35 units of insulin per day to achieve glycemic targets while tolerating a diet 03/05 * BSGs well controlled over last 24 hrs. * 26 units of insulin administered over last 24 hrs while tolerating a diet, although carb content of meals appears to be low * Fasting BSG at goal, FBS 124-134 this AM, w/ 17 units Lantus on board - will continue the same * Post-prandial BSGs controlled since CR changed yesterday - will continue the same 03/04 * Patient had excellent glycemic control over the past 24 hour with the exception of elevated fasting BSG of 180 mg/dL * Lantus dose was increased 20% yesterday. Fasting BSG today improved to 127 mg/dL. * Post prandial BSGs are mostly at goal. I will slightly tighten carb coverage. 03/03 * Glycemic control remains acceptable. BSGs have ranged 134-183 over last 24 hrs. * BSGs did trend upwards with the increased rate of IV dextrose administration yesterday. IV dextrose continues today but at a reduced rate. I did temporarily increase her Novolog correctional doses to compensate for the increase IVF rate. This dose will be reduced again given change in IVF rate and possible removal of dextrose from maint IVF in near future. * Patient's mental status has been improving and she is tolerating PO meds and diet thus far today - will monitor post-prandial BSGs. PLAN FOR INPATIENT GLYCEMIC CONTROL: * Basal insulin -no change * Lantus 17 units SQ daily * Bolus insulin -no change * NovoLog per scale ACHS * Goal Range: Low 110 mg/dL - High 140 mg/dL * Correction Factor: 25 mg/dL/unit * Nutritional / Prandial insulin per carb ratio of 1 unit per 9 grams CHO consumed PLAN FOR DISCHARGE: * Given patient's presentation was DKA, discharge on insulin w/ close endocrinology f/u warranted. * May consider Relion 70/30 insulin on discharge given lack of insurance coverage: * Relion 70/30 insulin 20 units in the AM with breakfast + 10 units w/ evening meal * Regular insulin for sliding scale coverage: 1 unit for every 40mg/dL above 160 (i.e., 1 unit for BSG 160-199, 2 units for BSG 200-239, 3 units for BSG 240-279, 4 units for BSG 280-319, 5 units for BSG 320 or greater)
--- NOTE | 2020-03-07 17:01 | Hospitalist Progress Note ---
Date of Service March 07, 2020 Assessment & Plan (1) Hyperglycemia: Diabetic Ketoacidosis In setting of infection Metabolic Acidosis HbA1C:5.8 Monitor electrolytes and replace as needed Blood glucose levels stable Continue Insulin therapy Plan to discharge on 70/30 Insulin given lack of Insurance Coverage. (2) Acidosis, metabolic: Secondary to above Received IV Bicarbonate Bicarbonate levels normalized Resolved (3) REG (acute kidney injury): Acute Kidney Injury Hypernatremia Hyperchloremia Likely ATN Nonoliguric Cr: 7.7>6.2>4.59> 3.92>2.19>1.8>1.76>1.5>1.46 Monitor renal function Avoid nephrotoxic agents as able Received IV fluids Appreciate Nephrology input Needs follow-up with nephrology upon discharge in 2 weeks Plan to discharge on magnesium, potassium supplements as per nephrology Needs outpatient labs upon discharge Hypokalemia Normal magnesium levels Replete electrolytes as needed Monitor (4) Acute pancreatitis: --CT ABD:Findings compatible with acute pancreatitis. No peripancreatic fluid collection. No biliary or pancreatic ductal dilation. Hepatomegaly with hepatic steatosis. Distended mildly hyperdense gallbladder may reflect intraluminal sludge. No bowel obstruction or bowel wall thickening. Normal appendix. Nonobstructing left nephrolithiasis. Serum lipase [id number] Received IV fluids Appreciate GI input Monitor Tolerated regular diet (5) Nausea and vomiting: Likely multifactorial Continue PPI Anti-emetics PRN Appreciate GI Input Resolved Melena May need EGD prior to discharge Transfuse PRBCs as needed Monitor CBC Appreciate GI input Continue PPI Hb stable Denies any recurrence of bleeding (6) Alcohol withdrawal: Alcohol Withdrawal Transaminitis H/O Heavy alcohol consumption. Continue alcohol withdrawal protocol Continue thiamine, folic acid Off of Precedex drip BiPAP HS and PRN Taper down Ativan to 1mg Q8H today Continue to monitor for withdrawal Denies hallucinations UTI Urine Culture: E. coli, Klebsiella Blood Culture: No growth to date Completed Levaquin course (7) Alcoholism: Counseled to quit (8) Metabolic encephalopathy: Multifactorial Secondary to Infection, renal failure, DKA, Alcohol use Resolved (9) MRSA (methicillin resistant Staphylococcus aureus) carrier: Nasal MRSA screen positive. Contact isolation (10) Bacteriuria: as above (11) DVT prophylaxis: Heparin SQ Monitor for bleeding (12) Discharge planning issues: Case Management consulted PT/OT:recommends Rehab placement Admission and Anticipated Discharge Date Admission Date: February 27, 2020 Subjective Patient is seen and examined at bedside Clinically no significant change from yesterday No new complaints Denies chest pain, SOB, dizziness, nausea, vomiting, abdominal pain Generalized weakness slowly improving Renal function continues to improve Review of Systems Review of Systems: All systems reviewed & are unremarkable except as noted in HPI & below Physical Exam Physical Exam: Physical Exam: Vitals signs as noted above General Appearance:Moderately built and nourished, no apparent distress Head: normocephalic, Atraumatic Eyes: normal inspection Neck: supple, Trachea midline Respiratory/Chest: Decreased breath sounds, CTA Cardiovascular: S1, S2, No murmur Abdomen/GI:Soft, Non tender, distended, Bowel sounds present Extremities/Musculoskelatal:normal inspection, no edema Neurologic/Psych:grossly no focal neurological deficits Skin: normal color, warm Results & Data Results & Data ([facility]) Vital Signs (Past 12 Hours) Vital Signs Temp Pulse Resp BP Pulse Ox 03/07/20 16:21 36.6 C 96 H 16 108/66 97 03/07/20 11:46 37.0 C 85 19 101/64 98 03/07/20 07:07 37.0 C 81 17 110/59 L 96 Laboratory Results Short CBC 03/07/20 Range/Units 07:09 Hgb 8.7 L (12.0-16.0) g/dL Hct 26.8 L (37-47) % BMP 03/07/20 07:09 Sodium 139 Potassium 4.0 D Chloride 110 H Carbon Dioxide 22 BUN 12 Creatinine 1.46 H Glucose 118 H Calcium 9.8 (1) Acute pancreatitis Acute pancreatitis complication: unspecified Pancreatitis type: alcohol induced Qualified Code(s): K85.20 - Alcohol induced acute pancreatitis without necrosis or infection
[2020-03-08] MEDS: LORazepam 1 MG TAB PO SCH ×2 (05:56→13:15)
[2020-03-08 06:08] LABS: Hemoglobin 8.3 g/dL (12.0-16.0)
[2020-03-08 06:37] LABS: BUN Creatinine Ratio 6.9 (10-20); Calcium 9.2 mg/dl (8.5-10.1); Creatinine Clr Calc Pharmacy 52.4 ml/min; Est GFR (African American) 56.2; Est GFR (Non-African American) 48.5; Magnesium 1.8 mg/dl (1.8-2.4); Potassium 4.1 mmol/L (3.5-5.1)
[2020-03-08] MEDS: INSULIN HUMAN 70% NPH/30% REGULAR SC SCH ×2 (07:30→17:10)
[2020-03-08] MEDS: INSULIN ASPART 100 UNITS/ML 3 ML PEN SC SCH ×4 (07:30→20:55)
[2020-03-08] MEDS: MAGNESIUM CHLORIDE 64MG DELAYED REL TAB PO SCH (09:00)
[2020-03-08] MEDS: FOLIC ACID 1 MG TAB PO SCH (09:00)
[2020-03-08] MEDS: THIAMINE HCL 100 MG TAB PO SCH (09:00)
[2020-03-08] MEDS: FLUTICASONE/VILANTEROL 200/25MCG 14 PUFFS/INHALER INH SCH (09:02)
[2020-03-08] MEDS: HEPARIN SOD 5,000 UNIT/0.5 ML VIAL SQ SCH ×2 (09:20→21:09)
--- NOTE | 2020-03-08 09:32 | Nephrology Progress Note ---
Date of Service March 08, 2020 Assessment & Plan (1) Acute renal failure (ARF): slowly improving nonoliguric stage III acute renal failure from ATN in the setting of pancreatitis (though rate of improvement slowing considerably) and complicated by severe prerenal process with DKA. Had been hypertensive with mild tachycardia from alcohol withdrawal; HTN improved; and for past few hours tachycardia improved as well. I/O no longer accurate and not needed. Presenting creatinine 7.8 on 02/26; baseline creatinine 0.8. on 03/03, creatinine 1.46 today, improving daily though improvement slowing. anemia stable. Hemoglobin stable -Daily BMP while in house and check mag q48-72 hrs -cont to avoid nephrotoxins -electrolyte issues normalizing though still w/ mild hyperchloremia >>>DISCHARGE RECOMMENDATIONS (d/c summary updated) -follow up with Dr Phillips, Dr Burrell or PA in CKD clinic in [facility] within 2 wks of discharge -needs weekly bmp and magnesium and hemoglobin until seen in clinic > nephrology will order these x 3 at discharge -imperative that she avoid NSAIDS -discharge on oral magnesium and potassium supplements WILL SIGN OFF; PLS CALL Dr Phillips IF CONCERNS > Dr Calloawy on through 03/13 0700 (2) Electrolyte and fluid disorder: Patient has had issues with hypomagnesemia and low phos due to alcohol use. > no supplements needed for past several days however mag still low yesterday and has needed po K supplementation -cont po mag daily and po K 20 mEq bid > recommend d/c on these medications Admission and Anticipated Discharge Date Admission Date: February 27, 2020 Subjective no acut einterval clinical events; eating/drinking better; no sob, no voiding concerns Review of Systems Review of Systems: All systems reviewed & are unremarkable except as noted in HPI & below Physical Exam Constitutional: well developed, well nourished and + obese; no acute distress lying flat on RA Eyes: + anicteric sclerae ENMT: Ears: no external ear abnormality Nose: no external nose abnormality Mouth: + dry oral mucous membranes Neck: no nuchal rigidity Respiratory: normal respiratory effort Auscultation: lungs clear to auscultation bilaterally and + diminished lung sounds Cardiovascular: RRR, no murmur, no edema Rate/Rhythm: + tachycardic Extremities: no edema Gastrointestinal (Abdomen): Inspection/Auscultation: normal bowel sounds Percussion/Palpation: abdomen soft; abdomen nontender Skin: no rashes, warm and dry Neurologic: moves all extremities Psychiatric: A+Ox3, euthymic affect Speech: normal rate/rhythm/volume of speech Insight: good insight Judgement: good judgement Results & Data ([facility]) Vital Signs (Past 12 Hours) Vital Signs Temp Pulse Pulse Resp BP Pulse Ox 03/08/20 06:54 37.1 C 63 18 117/74 96 03/08/20 03:44 36.7 C 88 18 99/67 L 98 03/08/20 00:00 36.8 C 88 74 18 105/68 98 Laboratory Results 03/08/20 05:47 03/08/20 05:47
[2020-03-08] MEDS: MULTIVITAMIN TAB PO SCH (10:26)
[2020-03-08] MEDS: PANTOprazole 40 MG TAB PO SCH ×2 (10:27→21:09)
[2020-03-08] MEDS: POTASSIUM CHLORIDE 20 MEQ TABCR PO SCH ×2 (10:27→20:54)
--- NOTE | 2020-03-08 12:35 | Pharmacy Report ---
Pharmacy Glycemic Short Note 2 - Date of Service March 08, 2020 - Glycemic Short BSG Results (Last 24 hours): 03/07/20 03/07/20 03/08/20 16:40 20:33 05:47 Glucose 137 H POC Glucose 202 H 113 H 03/08/20 03/08/20 07:27 11:11 Glucose POC Glucose 133 H 122 H OUTPATIENT ANTIDIABETIC REGIMEN: * N/A * A1c = 5.8% 02/28/20 ASSESSMENT: 03/07 * BSGs again well controlled * 32 units of insulin given over last 24 hrs while tolerating a diet * Fasting BSG 133 w/ 17 units Lantus on board * Transitioning patient to 70/30 regimen today in anticipation of discharge in near future. Inpatient regimen will be based upon total daily dose of ~30 units 03/06 * BSGs again well controlled with current insulin regimen * Renal fxn continues to improve * Fasting BSG 125 this AM w/ 17 units Lantus on board * Post-prandial BSGs well controlled with Novolog parameters * It appears this patient will require 25-35 units of insulin per day to achieve glycemic targets while tolerating a diet 03/05 * BSGs well controlled over last 24 hrs. * 26 units of insulin administered over last 24 hrs while tolerating a diet, although carb content of meals appears to be low * Fasting BSG at goal, FBS 124-134 this AM, w/ 17 units Lantus on board - will continue the same * Post-prandial BSGs controlled since CR changed yesterday - will continue the same 03/04 * Patient had excellent glycemic control over the past 24 hour with the exception of elevated fasting BSG of 180 mg/dL * Lantus dose was increased 20% yesterday. Fasting BSG today improved to 127 mg/dL. * Post prandial BSGs are mostly at goal. I will slightly tighten carb coverage. PLAN FOR INPATIENT GLYCEMIC CONTROL: * Basal/Prandial insulin - * Novolin 70/30 20 units SQ w/ breakfast + 10 units SQ w/ evening meal * Bolus insulin -change * NovoLog per scale ACHS * Goal Range: Low 110 mg/dL - High 140 mg/dL * Correction Factor: 40 mg/dL/unit PLAN FOR DISCHARGE: * Given patient's presentation was DKA, discharge on insulin w/ close endocrinology f/u warranted. * May consider Relion 70/30 insulin on discharge given lack of insurance coverage: * Relion 70/30 insulin 20 units in the AM with breakfast + 10 units w/ evening meal. The success of this regimen will be highly dependent upon her ability to maintain adequate PO intake. I do have concerns that she could develop significant hypoglycemia if she returns to etoh use. * Regular insulin for sliding scale coverage: 1 unit for every 40mg/dL above 160 (i.e., 1 unit for BSG 160-199, 2 units for BSG 200-239, 3 units for BSG 240-279, 4 units for BSG 280-319, 5 units for BSG 320 or greater)
[2020-03-08] MEDS: LORazepam 0.5 MG TAB PO SCH (21:09)
--- NOTE | 2020-03-08 22:18 | Hospitalist Progress Note ---
Date of Service March 08, 2020 Assessment & Plan (1) Hyperglycemia: Random glucose 702 at time of admission with associated metabolic acidosis and REG. No history of DM. Hgb A1c 5.8. Managed as DM type 1 despite normal Hgb A1c. May have DM type 1 due to pancreatitis. Received management of DKA per protocol. Pharmacy consulted for diabetes management. Transitioned from IV insulin to SQ insulin. Received DM education. Discharge on 70/30 with regular insulin scale to minimize [id number] costs. Will need ongoing DM education / support. (2) Acidosis, metabolic: AG metabolic acidosis, probably due to DKA. (3) REG (acute kidney injury): Serum creatinine at time of admission 7.76. No history of CKD; baseline creatinine ~ 0.29 November 2019. No apparent urinary tract obstruction per CT. Nephrology consulted. Suspected ATN. Urine output improved. Received IV fluids. Creatinine today = 1.33. (4) Acute pancreatitis: Hospitalized with acute pancreatitis November 2019. CT in ED 02/26 demonstrated interstitial and peripancreatic edema consistent with acute pancreatitis. Serum lipase 778 in ED. GI consulted. Received IV fluids, analgesics, antiemetics. (5) Nausea and vomiting: N&V could be secondary to pancreatitis, gastritis, alcohol withdrawal. Reported possible coffee ground emesis. Continue PPI and anti-emetics. GI consulted. (6) Acute upper GI hemorrhage: Had coffee ground emesis and melena. Seen by GI. H/H fell from 11.9 to 8.3. Received PPI. Possible gastritis or PUD. Coffee ground emesis and melena have resolved. Continue PPI. Will need EGD if symptoms recur. (7) Anemia: Hgb 11.9 at time of admission and subsequently fell. Hgb today = 8.3. Anemia probably multifactorial: hemodilution UGI bleed (acute blood loss) multiple phlebotomies Check Fe, B12, folate. (8) Alcohol withdrawal: History of heavy alcohol consumption. Last drink was apparently a few days prior to admission. Blood alcohol level at time of admission was undetectable. Received thiamine, folic acid, MVI. Received lorazepam, now being tapered. (9) Alcoholism: Ongoing counseling / support. (10) Metabolic encephalopathy: Probable metabolic encephalopathy secondary to alcohol withdrawal and DKA. Management of specific problems as noted. Thiamine replacement. (11) MRSA (methicillin resistant Staphylococcus aureus) carrier: Nasal MRSA screen positive. Contact isolation. (12) Urinary tract infection: UA showed negative nitrates, trace leukocyte esterase, 5-10 WBC's, many epithelial cells. Urine culture grew gram negative bacilli = E coli & Klebs pneumonia. Received levofloxacin. (13) DVT prophylaxis: No anticoagulants at this time due to possible UGI bleed. SCD's. Ambulate as able. (14) Discharge planning issues: Rehab suggested, but pt declined. Anticipated discharge to home. Family Medicine follow-up with Dr. Whatley. Admission and Anticipated Discharge Date Admission Date: February 27, 2020 Subjective Recheck for multiple problems. Patient seen in their room around 1340. Doing better. No hallucinations, tremors, sweats. Review of Systems: Constitutional- no fever. Cardiac- no chest pain. Pulmonary- no cough or SOB. GI- no nausea, vomiting, diarrhea, melena, hematochezia. - no urinary symptoms. Otherwise, as noted above. Physical Exam Constitutional: no acute distress Eyes: + anicteric sclerae Respiratory: no respiratory distress Auscultation: lungs clear to auscultation bilaterally Cardiovascular: Rate/Rhythm: regular rate and regular rhythm Vessels: no JVD Extremities: no calf tenderness and no edema Gastrointestinal (Abdomen): normal bowel sounds, soft, nontender, no hepatosplenomegaly Musculoskeletal: Extremities: no cyanosis Skin: no rashes, warm and dry Psychiatric: Orientation: alert and oriented x 3 Results & Data Results & Data ([facility]) Vital Signs (Past 12 Hours) Vital Signs Temp Pulse Resp BP Pulse Ox 03/08/20 19:23 37.2 C 90 17 99/65 L 96 03/08/20 15:33 37.0 C 83 16 101/59 L 98 03/08/20 12:00 82 99/53 L 96 03/08/20 11:12 36.8 C 82 19 99/53 L 96 Laboratory Results Laboratory Results - last 24 hr 03/08/20 03/08/20 03/08/20 05:47 05:47 07:27 Hgb 8.3 L Hct 26.0 L Sodium 140 Potassium 4.1 Chloride 111 H Carbon Dioxide 23 Anion Gap 6.0 BUN 9 Creatinine 1.33 H Est Cr Clr Drug Dosing 52.4 Est GFR ( Amer) 56.2 Est GFR (Non-Af Amer) 48.5 BUN/Creatinine Ratio 6.9 L Glucose 137 H POC Glucose 133 H Calcium 9.2 Magnesium 1.8 03/08/20 03/08/20 03/08/20 11:11 16:41 20:12 Hgb Hct Sodium Potassium Chloride Carbon Dioxide Anion Gap BUN Creatinine Est Cr Clr Drug Dosing Est GFR ( Amer) Est GFR (Non-Af Amer) BUN/Creatinine Ratio Glucose POC Glucose 122 H 135 H 115 H Calcium Magnesium (1) Acute pancreatitis Acute pancreatitis complication: unspecified Pancreatitis type: alcohol induced Qualified Code(s): K85.20 - Alcohol induced acute pancreatitis without necrosis or infection
[2020-03-09] MEDS: LORazepam 0.5 MG TAB PO SCH ×2 (05:54→14:15)
[2020-03-09 07:22] LABS: Hematocrit (blood only) 29.7 % (37-47); Hemoglobin 9.5 g/dL (12.0-16.0); Mean Corpuscular Hemoglobin 33.3 pg (25-34); Mean Corpuscular Volume 104.2 fL (80-100); Mean Platelet Volume 10.3 fL (7.4-10.4); Platelet Count 274 K/uL (130-400); RDW Coefficient of Variation 15.4 % (11.5-14.5); RDW Standard Deviation 59.1 fL (36.4-46.3); Red Blood Count 2.85 M/uL (4.2-5.4)
[2020-03-09 07:57] LABS: BUN Creatinine Ratio 6.6 (10-20); Creatinine Clr Calc Pharmacy 52.9 ml/min; Est GFR (African American) 57.8; Est GFR (Non-African American) 49.9
[2020-03-09 08:02] LABS: Ferritin 974.9 ng/ml (8-388)
[2020-03-09] MEDS: INSULIN HUMAN 70% NPH/30% REGULAR SC SCH ×2 (08:33→16:58)
[2020-03-09] MEDS: INSULIN ASPART 100 UNITS/ML 3 ML PEN SC SCH ×3 (08:36→16:59)
[2020-03-09] MEDS: FLUTICASONE/VILANTEROL 200/25MCG 14 PUFFS/INHALER INH SCH (08:38)
[2020-03-09] MEDS: PANTOprazole 40 MG TAB PO SCH (08:39)
[2020-03-09] MEDS: HEPARIN SOD 5,000 UNIT/0.5 ML VIAL SQ SCH (08:39)
[2020-03-09] MEDS: MAGNESIUM CHLORIDE 64MG DELAYED REL TAB PO SCH (08:41)
[2020-03-09] MEDS: POTASSIUM CHLORIDE 20 MEQ TABCR PO SCH (08:41)
[2020-03-09] MEDS: THIAMINE HCL 100 MG TAB PO SCH (08:41)
[2020-03-09] MEDS: FOLIC ACID 1 MG TAB PO SCH (08:41)
[2020-03-09] MEDS: MULTIVITAMIN TAB PO SCH (08:42)
[2020-03-09 09:08] LABS: Folate (Folic Acid) 18.54 ng/ml (>5.38)
--- NOTE | 2020-03-09 10:41 | Pharmacy Report ---
Pharmacy Glycemic Short Note 2 - Date of Service March 09, 2020 - Glycemic Short BSG Results (Last 24 hours): 03/08/20 03/08/20 03/08/20 11:11 16:41 20:12 Glucose POC Glucose 122 H 135 H 115 H 03/09/20 03/09/20 06:58 07:18 Glucose 107 H POC Glucose 118 H OUTPATIENT ANTIDIABETIC REGIMEN: * N/A * A1c = 5.8% 02/28/20 ASSESSMENT: 03/08 * Transitioned to 70/30 insulin yesterday AM. * Thus far BSGs have been well controlled, ranging 115-135. No correctional insulin doses required. 03/07 * BSGs again well controlled * 32 units of insulin given over last 24 hrs while tolerating a diet * Fasting BSG 133 w/ 17 units Lantus on board * Transitioning patient to 70/30 regimen today in anticipation of discharge in near future. Inpatient regimen will be based upon total daily dose of ~30 uni ts 03/06 * BSGs again well controlled with current insulin regimen * Renal fxn continues to improve * Fasting BSG 125 this AM w/ 17 units Lantus on board * Post-prandial BSGs well controlled with Novolog parameters * It appears this patient will require 25-35 units of insulin per day to achieve glycemic targets while tolerating a diet 03/05 * BSGs well controlled over last 24 hrs. * 26 units of insulin administered over last 24 hrs while tolerating a diet, although carb content of meals appears to be low * Fasting BSG at goal, FBS 124-134 this AM, w/ 17 units Lantus on board - will continue the same * Post-prandial BSGs controlled since CR changed yesterday - will continue the same PLAN FOR INPATIENT GLYCEMIC CONTROL: * Basal/Prandial insulin - no change * Novolin 70/30 20 units SQ w/ breakfast + 10 units SQ w/ evening meal * Bolus insulin -no change * NovoLog per scale ACHS * Goal Range: Low 110 mg/dL - High 140 mg/dL * Correction Factor: 40 mg/dL/unit PLAN FOR DISCHARGE: * Given patient's presentation was DKA, discharge on insulin w/ close endocrinology f/u warranted. * May consider Relion 70/30 insulin on discharge given lack of insurance coverage: * Relion 70/30 insulin 20 units in the AM with breakfast + 10 units w/ evening meal. The success of this regimen will be highly dependent upon her ability to maintain adequate PO intake. I do have concerns that she could develop significant hypoglycemia if she returns to etoh use. * Regular insulin for sliding scale coverage: 1 unit for every 40mg/dL above 160 (i.e., 1 unit for BSG 160-199, 2 units for BSG 200-239, 3 units for BSG 240-279, 4 units for BSG 280-319, 5 units for BSG 320 or greater)
--- NOTE | 2020-03-09 15:09 | Hospitalist Progress Note ---
Date of Service March 09, 2020 Assessment & Plan (1) Diabetes mellitus type 1: Random glucose 702 at time of admission with associated metabolic acidosis and REG. No history of DM. Hgb A1c 5.8. Managed as DM type 1 despite normal Hgb A1c. May have DM type 1 due to pancreatitis. Received management of DKA per protocol. Pharmacy consulted for diabetes management. Transitioned from IV insulin to SQ insulin. Received DM education. Discharge on 70/30 with regular insulin scale to minimize [id number] costs. Will need ongoing DM education / support. (2) Acidosis, metabolic: AG metabolic acidosis, probably due to DKA. (3) REG (acute kidney injury): Serum creatinine at time of admission 7.76. No history of CKD; baseline creatinine ~ 0.29 November 2019. No apparent urinary tract obstruction per CT. Nephrology consulted. Suspected ATN. Urine output improved. Received IV fluids. Creatinine today = 1.30. (4) Acute pancreatitis: Hospitalized with acute pancreatitis November 2019. CT in ED 02/26 demonstrated interstitial and peripancreatic edema consistent with acute pancreatitis. Serum lipase 778 in ED. GI consulted. Received IV fluids, analgesics, antiemetics. GI symptoms resolved by discharge. Importance of compete abstinence from alcohol emphasized. (5) Nausea and vomiting: N&V could be secondary to pancreatitis, gastritis, alcohol withdrawal. Reported possible coffee ground emesis. Received PPI and anti-emetics. GI consulted. (6) Acute upper GI hemorrhage: Had coffee ground emesis and melena. Seen by GI. H/H fell from 11.9 to 8.3. Received PPI. Possible gastritis or PUD. Coffee ground emesis and melena have resolved. Hgb today = 9.5. Discharge on PPI BID for 2 more weeks, then daily. Will probably need EGD if recurrent concerns. (7) Anemia: Hgb 11.9 at time of admission and subsequently fell as low as 8.3. Anemia probably multifactorial: hemodilution UGI bleed (acute blood loss) multiple phlebotomies Fe, B12, folate OK. Hgb today = 9.5. (8) Alcohol withdrawal: History of heavy alcohol consumption. Last drink was apparently a few days prior to admission. Blood alcohol level at time of admission was undetectable. Received thiamine, folic acid, MVI. Received lorazepam for withdrawal symptoms. Lorazepam dose tapered to 0.5 mg TID. Given Rx for 0.5 mg TID PRN for a few more days. (9) Alcoholism: Inpatient rehab recommended, pt declined. Patient given info on outpatient resources and indicates that she will obtain counseling / support. (10) Metabolic encephalopathy: Probable metabolic encephalopathy secondary to alcohol withdrawal and DKA. Management of specific problems as noted. Thiamine replacement. Resolved. (11) MRSA (methicillin resistant Staphylococcus aureus) carrier: Nasal MRSA screen positive. Contact isolation. (12) Urinary tract infection: UA showed negative nitrates, trace leukocyte esterase, 5-10 WBC's, many epithelial cells. Urine culture grew gram negative bacilli = E coli & Klebs pneumonia. Doubt sepsis. Received levofloxacin. (13) DVT prophylaxis: No anticoagulants initailly due to possible UGI bleed. SCD's. Ambulating. (14) Discharge planning issues: Rehab suggested, but pt declined. Discharge to home. Family Medicine follow-up with Dr. Whatley. Outpatient follow[facility]up with [facility]. Admission and Anticipated Discharge Date Admission Date: February 27, 2020 Subjective Recheck for multiple problems. Patient seen in their room around 1130. Doing better. No recent hallucinations, tremors, sweats. No fever. No CP or SOB. No nausea, vomiting, diarrhea, melena, hematochezia. No urinary symptoms. Ready to go home. Not interested in inpatient rehab. Telemetry data reviewed. ST with activity, asymptomatic. Physical Exam Constitutional: no acute distress Eyes: + anicteric sclerae Respiratory: no respiratory distress Auscultation: lungs clear to auscultation bilaterally Cardiovascular: Rate/Rhythm: regular rate and regular rhythm Vessels: no JVD Extremities: no calf tenderness and no edema Gastrointestinal (Abdomen): normal bowel sounds, soft, nontender, no hepatosplenomegaly Musculoskeletal: Extremities: no cyanosis Skin: no rashes, warm and dry Psychiatric: Orientation: alert and oriented x 3 Results & Data Results & Data ([facility]) Vital Signs (Past 12 Hours) Vital Signs Temp Pulse Pulse Resp BP Pulse Ox 03/09/20 11:40 36.5 C 98 H 16 115/74 97 03/09/20 08:22 36.8 C 92 H 18 93/72 L 100 03/09/20 08:00 71 03/09/20 04:34 36.9 C 82 20 108/69 96 Laboratory Results 03/09/20 06:58 03/09/20 06:58 (1) Acute pancreatitis Acute pancreatitis complication: unspecified Pancreatitis type: alcohol induced Qualified Code(s): K85.20 - Alcohol induced acute pancreatitis without necrosis or infection
--- NOTE | 2020-03-11 08:00 | Discharge Summary ---
Date of Service Date of Admission: 02/27/20 Date of Discharge: 03/09/20 Admission HPI Per Admitting Provider Pt is 44 y/o F with PMH alcohol abuse, alcohol withdrawal, asthma, MDD, panic disorder, pancreatitis who presents to ED with c/o AMS. Partial history obtained from patient, remaining history obtained from ER provider and prior records. It is reported patient was found in her bed today by her parents. It is reported parents that patient was intoxicated. Patient states was drinking vodka, she reports last drink was 3 days ago. She does not say how much she has been drinking recently. Reports since last drink she felt shaky and felt like she was going through withdrawal. Patient has been in bed for the past several days and not eating or drinking. She complains of being thirsty. ER provider reports that EMS noted coffee-ground like emesis on patient's bed sheets. Patient complains of feeling weak. Denies any complaints of shortness of breath, chest pain, headache or other pain. Pt is alert, oriented to person, place. Is delayed with responses. In ER pt found to be tachycardic, tachypneic. Abnormal labs include ABG: pH: 7.25, PCO2: 16, PO2: 120, HCO3: 7; corrected NA: 131 for glucose: 702K: 4.1, CO2: 7, A, BUN: 142, CR: 7.7, GFR: 5.7. Beta hydroxybutyric acid: 135 negative EtOH level. Principal Diagnosis diabetic ketoacidosis new onset diabetes mellitus type 1 OTHER ACUTE / NEW DIAGNOSES acute kidney injury (ATN) pancreatitis, suspected acute + chronic upper GI bleed acute blood loss anemia alcohol withdrawal MRSA nasal colonization Discharge Data Allergies Allergy/AdvReac Type Severity Reaction Status Date / Time theophylline AdvReac Unknown VERTIGO Verified 02/27/20 14:56 Consultations 02/27/20 15:26 ED Decision to Admit Stat 02/27/20 17:23 Consult Case Management - Discharge Planning Routine Consult Bench Scientist Routine 02/27/20 17:28 Consult Gastroenterology Routine Consult Nephrology Routine 03/05/20 16:03 Consult Case Management - Discharge Planning Routine Ordered Studies 02/27/20 13:53 CT abd pelvis wo con Stat Diabetes Follow up Diabetes Follow-up Needed for Newly Diagnosed Diabetes Hospital Course (1) Diabetes mellitus type 1: Random glucose 702 at time of admission with associated metabolic acidosis and REG. No history of DM. Hgb A1c 5.8. Managed as DM type 1 despite normal Hgb A1c. May have DM type 1 due to pancreatitis. Pharmacy consulted for diabetes management. Received management of DKA per protocol. Transitioned from IV insulin to SQ insulin. Received DM education. Discharge on 70/30 with regular insulin scale to minimize [id number] costs. Will need ongoing DM education / support with [facility]. (2) Acidosis, metabolic: AG metabolic acidosis, probably due to DKA. (3) REG (acute kidney injury): Serum creatinine at time of admission 7.76. No history of CKD; baseline creatinine ~ 0.29 November 2019. No apparent urinary tract obstruction per CT. Nephrology consulted. Suspected ATN. Urine output improved. Received IV fluids. Creatinine day of discharge 1.30. (4) Acute pancreatitis: Hospitalized with acute pancreatitis November 2019. CT in ED 02/26 demonstrated interstitial and peripancreatic edema consistent with acute pancreatitis. Serum lipase 778 in ED. GI consulted. Received IV fluids, analgesics, antiemetics. GI symptoms resolved by discharge. Importance of compete abstinence from alcohol emphasized. (5) Nausea and vomiting: N&V could be secondary to pancreatitis, gastritis, alcohol withdrawal. Reported possible coffee ground emesis. Received PPI and anti-emetics. GI consulted. (6) Acute upper GI hemorrhage: Had coffee ground emesis and melena. Seen by GI. H/H fell from 11.9 to 8.3. Received PPI. Possible gastritis or PUD. Coffee ground emesis and melena resolved. Hgb day of discharge 9.5. Discharge on PPI BID for 2 more weeks, then daily. Will probably need EGD if recurrent concerns. (7) Anemia: Hgb 11.9 at time of admission and subsequently fell as low as 8.3. Anemia probably multifactorial: hemodilution UGI bleed (acute blood loss) multiple phlebotomies Fe, B12, folate OK. Hgb day of discharge 9.5. (8) Alcohol withdrawal: History of heavy alcohol consumption. Last drink was apparently a few days prior to admission. Blood alcohol level at time of admission was undetectable. Received thiamine, folic acid, MVI. Received lorazepam and dexmedetomidine for withdrawal symptoms. Lorazepam dose tapered to 0.5 mg TID. Given Rx for 0.5 mg TID PRN for a few more days. (9) Alcoholism: Inpatient rehab recommended, pt declined. Patient given info on outpatient resources and indicates that she will obtain counseling / support. (10) Metabolic encephalopathy: Probable metabolic encephalopathy secondary to alcohol withdrawal and DKA. Management of specific problems as noted. Received thiamine replacement. Resolved. (11) MRSA (methicillin resistant Staphylococcus aureus) carrier: Nasal MRSA screen positive. Contact isolation. (12) Urinary tract infection: UA showed negative nitrates, trace leukocyte esterase, 5-10 WBC's, many epithelial cells. Urine culture grew gram negative bacilli = E coli & Klebs pneumonia. Doubt sepsis. Received levofloxacin. (13) DVT prophylaxis: No anticoagulants initailly due to possible UGI bleed. SCD's. Ambulating. (14) Discharge planning issues: Rehab suggested, but pt declined. Discharge to home. Family Medicine follow-up with Dr. Whatley. Outpatient follow-up with [facility]. Total Time Total Time Spent Total Time Spent (In Minutes): 45 Discharge Plan Discharge Items Patient Disposition: Home - Self-Care Reason For Visit: high blood sugars, nausea, vomiting Discharge Diagnosis: new onset diabetes pancreatitis Condition on Discharge: Good Activity: As commented below Activity Comment: Increase your activity gradually as tolerated. Non-emergency contact: Primary Care Provider, Hospitalist and Pollution Control Engineer Call non-emergency contact if: you have any medication questions, your symptoms worsen and your temperature is above 101 Follow-up/Referrals: Jacques Burrell MD [Surgeon] - 03/29/20 2:20 pm (Date & Time 03/29/2020 2:20 PM Jacques Burrell MD Nephrology, [facility] ) Elliot Whatley MD [Primary Care Provider] - 03/13/20 11:00 am (Date & Time 03/13/2020 11:00 AM Elliot Whatley III, MD [facility] ) Diet: Carb Count or DM1 Addtl Attending Provider Instructions: MEDICATION CHANGES: Lorazepam (Ativan) 0.5 mg every 8 hrs as needed for severe anxiety. Magnesium chloride (Slo-Mag) 64 mg twice a day. Potassium chloride 10 mEq twice a day. Take pantoprazole (Protonix) 40 mg twice a day for 14 days, then resume 40 mg daily. ReliOn 70/30 insulin 20 units with breakfast 10 units with supper ReliOn regular insulin (may also use leftover NovoLog) as needed for high blood sugars according to sliding scale: blood sugar units of regular insulin or NovoLog under 160 none 160-199 1 200-239 2 240-279 3 280-319 4 320 or higher 5 No not use any aspirin or nonsteroidal anti-inflammatory drugs like ibuprofen (Advil or Motrin), naproxen (Aleve), and other similar medications. They can cause irritation, ulcers, and bleeding of esophagus and stomach. SUMMARY OF TEST RESULTS: Blood sugar was [address] scan showed signs of pancreatitis. Fasting blood sugar 107 day of discharge. RECOMMENDATIONS FOR FOLLOW-UP: Please ask Dr. Whatley to make referral to [facility] for management of your diabetes. Please make arrangements for outpatient counseling / support for alcoholism. Please check labs in clinic weekly for next 3 weeks: basic metabolic profile hemoglobin level OTHER INSTRUCTIONS: Please do not drink any alcoholic beverages. Check blood sugars before meals and at bedtime. Seek medical attention if you have: * temperature above 101 * chest pain or trouble breathing * abdominal pain, nausea, vomiting * diarrhea, dark stools or bloody stools * any unanswered questions or concerns Call 911 if symptoms are severe. Please take good care of yourself. Call if you have any questions or problems. You can reach a [facility] hospitalist on duty at [facility] 24 hours a day by calling [phone]. My cell # is [phone]. Pending Studies at Discharge: No Stand-Alone Forms: My [facility], Smoking Cessation Medications and DC Order Prescriptions: New lorazepam 0.5 mg tablet 0.5 mg PO Q8H PRN (Reason: severe anxiety) Qty: 12 RF: 0 potassium chloride 10 mEq tablet extended release 10 meq PO BID Qty: 60 RF: 1 magnesium chloride 64 mg tablet,delayed release (DR/EC) 64 mg PO BID Qty: 60 RF: 1 Novolin 70/30 U-100 Insulin 100 unit/mL (70-30) suspension See Rx Instructions .ROUTE .COMPLEX Qty: 10 RF: 12 insulin regular human 100 unit/mL (3 mL) insulin pen See Rx Instructions .ROUTE .COMPLEX Qty: 15 RF: 12 (DME) pen needle, diabetic [ReliOn Pen Duke] 32 gauge x 5/32" needle See Rx Instructions .ROUTE .MEDSUPPLY Qty: 50 RF: 12 (DME) ReliOn Prime Test Strips Strip See Rx Instructions .ROUTE .MEDSUPPLY Qty: 50 RF: 0 (DME) lancets [ReliOn Thin Lancets] 26 gauge misc See Rx Instructions .ROUTE .MEDSUPPLY Qty: 100 RF: 12 (DME) BD Insulin Syringe 1 mL 26 x 1/2" syringe See Rx Instructions .ROUTE .MEDSUPPLY Qty: 100 RF: 12 (DME) lancets [ReliOn Ultra Thin Plus Lancets] Misc See Rx Instructions .ROUTE .MEDSUPPLY Qty: 100 RF: 12 (DME) insulin syringe-needle U-100 [BD Insulin Syringe Ultra-Fine] 0.5 mL 31 gauge x 5/16" syringe See Rx Instructions .ROUTE .MEDSUPPLY Qty: 100 RF: 12 Continued fluticasone propion-salmeterol [Advair Diskus] 250-50 mcg/dose blister with device 1 inh inhalation QAM RF: 0 albuterol sulfate [Ventolin HFA] 90 mcg/actuation Hfa Aerosol Inhaler 2 puff INHALATION Q6H PRN (Reason: Shortness Of Breath) RF: 0 hydroxyzine HCl 10 mg tablet 10 mg PO Q8 PRN (Reason: Anxiety) RF: 0 multivitamin [Daily-Harris] Tablet 1 tab PO QAM Qty: 0 RF: 0 thiamine HCl (vitamin B1) [Vitamin B-1] 100 mg Tablet 100 mg PO QAM Qty: 0 RF: 0 folic acid 1 mg Tablet 1 mg PO QAM Qty: 0 RF: 0 pantoprazole 40 mg Tablet,Delayed Release (Dr/Ec) 40 mg PO QAM Qty: 30 RF: 0 Lactinex 1 million cell tablet,chewable 1 tab PO TID Qty: 30 RF: 0 Discharge Orders: Discharge Order (Routine); Ordered 03/09/20 Ordered By: Elliot Dominguez/Other Patient Handouts: Diabetes and Drinking Alcohol, Types of Insulin, Taking Medicine for Diabetes, Lorazepam tablets Admission Data Admit Date/Time: 02/27/20 15:48 Attending Provider: Elliot Stern Admit Provider: Shakir Novoa Primary Care Provider: Elliot Whatley Other Providers: Shakir Novoa ; Jan Quarles ; Robert Schaffer ; Jacques Burrell ; Bucky Servin ; PCP,NO Other Interventions: Discharge Summary Assessment (RN) Last Done: 03/09/20 16:30
== END 2020-03-09 18:31 | disposition home or self-care (01) | DRG 896 ==
LOC: ED 13:11 → 1E 15:48 → SUATTDRO 15:48 → SUPCPDRO 15:48 → 1E 17:06 → 2E 03-05 15:11

== ENCOUNTER 2020-05-26 12:50 | Inpatient (IN) ==
[2020-05-26] MEDS ORDERED: LORazepam 1 MG/2 ML VIAL IV STA (13:38)
[2020-05-26] MEDS ORDERED: MULTI-VITAMIN INFUSION 10 ML, THIAMINE HCL 100 MG, FOLIC ACID 1 MG in SODIUM CHLORIDE 0... IV ONE (13:38)
--- NOTE | 2020-05-26 14:18 | XRay Report ---
XR chest 1V portable HISTORY: 44 years-old Female SEPSIS acute sepsis COMPARISON: Chest radiograph 03/02/2020 TECHNIQUE: Portable AP view of the chest FINDINGS: Cardiomediastinal and hilar silhouettes are within normal limits. No pneumothorax, pleural effusion, airspace consolidation or overt pulmonary edema. Minimal linear subsegmental left lung base densities suggest atelectasis. Bones appear grossly intact. IMPRESSION: No acute process. ACT 112: Negative or not required by law. The above report was generated using voice recognition software. It may contain grammatical, syntax o r spelling errors. Electronically signed by: Guero Carney M.D. 05/26/2020 2:17 PM
[2020-05-26 14:36] LABS: Basophils # (auto) 0.04 K/uL (0-0.2); Basophils % (auto) 0.4 %; Eosinophils # (auto) 0.06 K/uL (0-0.5); Eosinophils % (auto) 0.5 %; Hematocrit (blood only) 36.8 % (37-47); Hemoglobin 12.2 g/dL (12.0-16.0); Immature Granulocytes # (auto) 0.08 K/uL (0.00-0.02); Immature Granulocytes % (auto) 0.7 %; Lymphocytes # (auto) 0.89 K/uL (1.2-3.4); Lymphocytes % (auto) 8.1 %; Mean Corpuscular Hemoglobin 35.6 pg (25-34); Mean Corpuscular Hgb Conc 33.2 g/dL (32-36); Mean Corpuscular Volume 107.3 fL (80-100); Mean Platelet Volume 10.1 fL (7.4-10.4); Monocytes # (auto) 1.05 K/uL (0.11-0.59); Monocytes % (auto) 9.6 %; Neutrophils # (auto) 8.84 K/uL (1.4-6.5); Neutrophils % (auto) 80.7 %; Platelet Count 210 K/uL (130-400); RDW Coefficient of Variation 17.2 % (11.5-14.5); RDW Standard Deviation 67.6 fL (36.4-46.3); Red Blood Count 3.43 M/uL (4.2-5.4); White Blood Count 10.96 K/uL (4.8-10.8)
[2020-05-26 14:38] LABS: Base Excess VBG -0.9 mEq/L; HCO3 VBG 23 mmol/L; Oxygen Saturation VBG < 60.0 %; PCO2 VBG 36 mmHg (38-50); PO2 VBG 28 mmHg; pH VBG 7.42 (7.36-7.41)
[2020-05-26 14:49] LABS: INR 2.9 (0.9-1.1); Partial Thromboplastin Ratio 1.4; Partial Thromboplastin Time 39.3 Seconds (21.0-31.0); Prothrombin Time 28.6 Seconds (9.0-12.0)
[2020-05-26 14:56] LABS: Alanine Aminotransferase 57 U/L (12-78); Albumin Level 1.9 gm/dl (3.4-5.0); Aspartate Aminotransferase 160 U/L (15-37); BUN Creatinine Ratio 2.4 (10-20); Blood Urea Nitrogen 1 mg/dl (7-18); Calcium 8.5 mg/dl (8.5-10.1); Carbon Dioxide 23 mmol/L (21-32); Chloride 97 mmol/L (98-107); Creatinine Clr Calc Pharmacy 126.7 ml/min; Est GFR (African American) 130.7; Est GFR (Non-African American) 112.7; Glucose 64 mg/dl (70-99); Lipase 18 U/L (73-393); Magnesium 2.5 mg/dl (1.8-2.4); Potassium 3.8 mmol/L (3.5-5.1); Sodium 129 mmol/L (136-145)
[2020-05-26 15:11] LABS: Pregnancy Test, Serum Negative (Negative)
[2020-05-26 15:12] LABS: Albumin Globulin Ratio 0.5 (0.9-2); Alkaline Phosphatase 362 U/L (45-117); Bilirubin,Total 16.9 mg/dl (0.2-1); Phosphorus 0.8 mg/dl (2.5-4.9); Total Protein 5.9 gm/dl (6.4-8.2); Troponin I < 0.015 ng/ml (0-0.045)
[2020-05-26] MEDS ORDERED: THIAMINE HCL 100 MG in SYRINGE 9 ML IV STA (15:18)
[2020-05-26] MEDS ORDERED: D5W AND NSS 1,000 ML IV STA (15:18)
[2020-05-26 15:28] LABS: T4 Free Thyroxine 1.27 ng/dl (0.8-1.6)
[2020-05-26] MEDS ORDERED: PHYTONADIONE 10 MG in SODIUM CHLORIDE 0.9% 50 ML IV ONE (15:34)
[2020-05-26] MEDS ORDERED: POTASSIUM PHOS 3 MMOL/1 ML INFUSION IV STA ×2 (15:36→23:54)
[2020-05-26] MEDS ORDERED: POTASSIUM PHOSPHATE 15 MMOL in SODIUM CHLORIDE 0.9% 250 ML IV STA (15:54)
--- NOTE | 2020-05-26 16:20 | Ultrasound Report ---
BILATERAL LOWER EXTREMITY VENOUS DOPPLER HISTORY: Bilateral lower extremity swelling. COMPARISON STUDY: None. FINDINGS: There is normal compressibility, flow, and augmentation within the bilateral lower extremit y deep venous systems. IMPRESSION: No DVT within the right or left lower extremity. ACT 112: Negative or not required by law. Electronically signed by: Sam Bobby M.D. 05/26/2020 4:19 PM
[2020-05-26 16:21] LABS: Bilirubin Direct 13.9 mg/dl (0-0.2)
[2020-05-26] MEDS ORDERED: IOVERSOL 100ml IV ONE (16:27)
--- NOTE | 2020-05-26 16:29 | Emergency Department Note ---
Impression & Plan Acute liver failure, Alcoholism, Acute alcoholic hepatitis, Hypophosphatemia, Hypokalemia, Lactic acidosis, Hypoalbuminemia, Elevated INR ED Provider Note NAME: ARIC GRANT AGE: 44 SEX: F ARRIVES VIA: Ambulance INFORMANT: Patient, ED PROVIDER(S): Rafiq Martinez MD CHIEF COMPLAINT: Leg swelling, cirrhosis PLAN: Disposition: Admit MEDICAL DECISION MAKING: The patient is a 44-year-old woman with a past medical history of alcohol abuse, alcohol withdrawal, asthma, MDD, panic disorder, pancreatitis with a new diagnosis of diabetes in February 2020 which was managed as type I due to her presentation or for no history of diabetes previous, during her admission in February she had pancreatitis that was alcohol related. She also had gastritis that was similarly thought to be related to alcohol who presents emergency department for worsening lower extremity swelling, abdominal distention and development of jaundice which she reports began a week ago when her daughter first noticed. Reports since her admission in February she followed up with a dietitian for her diabetes but has since not followed up with her outpatient d sherin. She reports she continues to drink alcohol though reports that she had curb her use down to 2-3 glasses of wine a day. Denies any recent fevers, chills, cough, congestion, vomiting, diarrhea, urinary symptoms. On arrival the patient is ill-appearing, overtly jaundiced with scleral icterus with spider nevi diffusely of the skin, abdominal distention without tenderness, 1+ bilateral lower extremity edema without discoloration. She has no overt asterixis. She is alert and oriented without symptoms of encephalopathy at this time. EKG without overt acute ischemia. Chest x-ray negative for acute cardiopulmonary process. Bilateral lower extremity duplex is negative for DVT. WBC 10.9, nonspecific with neutrophil predominance. Hemoglobin within normal limits. Platelets within normal limits. VBG is unremarkable without acidemia. Sodium 129. Lactate 3.0 and glucose is 64. Chemistry without metabolic acidosis. Phosphorus 0.8 with repletion provided. Total bilirubin 16.9 with d irect bilirubin 13.9 acutely elevated from prior values. AST 160 with ALT 57 consistent with alcoholic pattern. INR is acutely elevated at 2.9 concerning for synthetic dysfunction in the setting of liver failure. MELD 32. TSH 10.9 however free T4 within normal limits. Lipase is not elevated. Alcohol detectable at 3.4. Case was discussed with Dr. Case, GI on-call, who agrees with plan including CT and paracentesis (if sufficient ascites present) with empiric treatment for possible SBP. Recommends repeat INR after 4 hours and if rising then will likely need transfer to tertiary care center. CT subsequently did not demonstrate any significant ascites. Moreover, bedside ultrasound did not demonstrate any large enough pocket amenable for drainage. Otherwise, CT abdomen pelvis demonstrates severe hepatomegaly with severe steatosis which has progressed. There is small amount of ascites and moderate body wall edema. Note is made of mild gallbladder wall thickening and associated pericholecystic fluid however more likely related to the patient's cirrhosis given she has no abdominal pain or report of pattern of pain to suggest cholecystitis at this time. Repeat INR after 4 hours did decrease to 2.8. I did review this with Dr. Harris, and agrees it is reasonable to keep the patient here for further management. If the patient's mattery score is above 30 he does recommend stero ids. Madri score 90s as so the Medrol was ordered. No need for NAC given minimal elevation in AST and ALT. Case was discussed with Dr. Pettit, [facility] hospitalist, who will evaluate the patient for admission. Triage Nursing notes reviewed and agree them. Prior medical records reviewed Vital Signs: reviewed and remarkable for no significant abnormalities Differential diagnosis: Infection, dehydration, metabolic abnormality, hypo/hyperglycemia, electrolyte disturbance, anemia, hypoxia, cardiac sources, intracerebral event, toxicologic, neurologic, as well as other pathologies. ER treatment provided: See below. Diagnostics interpreted by me: ECG: Sinus tachycardia, 112 bpm, no ectopy, no overt ST elevation or depression, QTC 439, QRS 80. Cardiac Monitoring: An order for continuous cardiac monitoring was placed and demonstrated Sinus tachycardia, 112 bpm, no ectopy. Laboratory studies: See below Imaging studies: XR chest 1V portable HISTORY: 44 years-old Female SEPSIS acute sepsis COMPARISON: Chest radiograph 03/02/2020 TECHNIQUE: Portable AP view of the chest FINDINGS: Cardiomediastinal and hilar silhouettes are within normal limits. No pneumothora x, pleural effusion, airspace consolidation or overt pulmonary edema. Minimal linear subsegmental left lung base densities suggest atelectasis. Bones appear grossly intact. IMPRESSION: No acute process. ACT 112: Negative or not required by law. BILATERAL LOWER EXTREMITY VENOUS DOPPLER HISTORY: Bilateral lower extremity swelling. COMPARISON STUDY: None. FINDINGS: There is normal compressibility, flow, and augmentation within the bilateral lower extremity deep venous systems. IMPRESSION: No DVT within the right or left lower extremity. ABDOMEN AND PELVIS CT WITH IV CONTRAST CT DOSE: 639.62 mGy.cm HISTORY: liver failure, abd distension TECHNIQUE: Multiaxial CT images of the abdomen and pelvis were performed following the use of intravenous contrast. A dose lowering technique was utilized adhering to the principles of ALARA. COMPARISON STUDY: Abdomen and pelvis CT 02/27/2020. FINDINGS: A few bibasilar linear densities. No pneumoperitoneum. No pneumatosis. No fractures within the visualized osseous structures. Moderate body wall edema is noted. The liver is markedly enlarged. This has progressed in the interval. There are severe hepatic steatosis with areas of focal fatty sparing near the gallbladder fossa. The main portal vein is patent. Small amount of perihepatic ascites. There is also a small amount of ascites within the pelvis. Mild gallbladder wall thickening with pericholecystic edema. The pancreas enhances normally. The spleen is normal in size. Adrenal glands are unremarkable. Normal right kidney. No hydronephrosis. There is a punctate nonobstructing stone within the left kidney. No retroperitoneal lymphadenopathy. The bladder is unremarkable. The uterus and bilateral adnexa are within normal limits. No bowel wall thickening or obstruction. Submucosal fat deposition within the proximal to mid colon consistent with chronic change. The appendix is partially obscured by the ascites but likely normal in caliber. IMPRESSION: 1. Severe hepatomegaly with severe steatosis. This has progressed. 2. Small amount of ascites and moderate body wall edema. 3. Mild gallbladder wall thickening with associated pericholecystic fluid. This is likely due to the underlying hepatic pathology. An acute cholecystitis could also have a similar appearance in the appropriate clinical setting. 4. Left-sided nephrolithiasis. No hydronephrosis. 5. No definite bowel wall thickening or obstruction. ACT 112: Negative or not required by law. Consultation(s): Dr. Harris, GI on-call Dr. Pettit, [facility] Hospitalist. HPI: The patient is a 44-year-old woman with a past medical history of alcohol abuse, alcohol withdrawal, asthma, MDD, panic disorder, pancreatitis with a new diagnosis of diabetes in February 2020 which was managed as type I due to her presentation or for no history of diabetes previous, during her admission in February she had pancreatitis that was alcohol related. She also had gastritis that was similarly thought to be related to alcohol who presents emergency department for worsening lower extremity swelling, abdominal distention and development of jaundice which she reports began a week ago when her daughter first noticed. Reports since her admission in February she followed up with a dietitian for her diabetes but has since not followed up with her outpatient doctors. She reports she continues to drink alcohol though reports that she had curb her use down to 2-3 glasses of wine a day. Denies any recent fevers, chills, cough, congestion, vomiting, diarrhea, urinary symptoms. ROS: See above HPI for pertinent positives & negatives. A total of 10 systems reviewed and were otherwise negative. PAST MEDICAL HISTORY:See Below PAST SURGICAL HISTORY:See Below FAMILY HISTORY:See Below SOCIAL HISTORY:See Below HOME MEDICATIONS:See Below ALLERGIES:See Below VITALS:See Below PHYSICAL EXAMINATION: GENERAL: Awake, alert, ill-appearing, in no distress HENT: Normocephalic, atraumatic. Oropharynx with dry mucous membranes and otherwise unremarkable. EYES: Normal conjunctiva. Sclera icteric. NECK: Supple. No nuchal rigidity. FROM. No JVD. RESPIRATORY: Clear to auscultation. CARDIAC: Tachycardic rate, normal rhythm. Extremities warm and well perfused. Pulses equal. ABDOMEN: Hepatomegaly, distended but no tenderness to palpation. No rebound or guarding. RECTAL: Deferred. MUSCULOSKELETAL: Chest examination reveals no tenderness. The back is symmetrical on inspection without obvious abnormality. There is no CVA tenderness to palpation. No joint edema. LOWER EXTREMITIES: Calves are equal size bilaterally and non-tender. No edema. No discoloration. NEURO: Normal sensorium. No sensory or motor deficits noted. SKIN: Diffuse jaundice and scatter spider nevi noted. ED COURSE: Critical Care: I have personally spent greater than 125 minutes of critical care time in the direct management of this patient. This includes bedside care, interpretation of diagnostic studies, and testing, discussion with consultants, patient, and family members, and other required patient management activities. This 125 minutes is in excess of all separately billable procedures. Rafiq Martinez MD Past Med/Surg History Medical History Alcohol abuse Anxiety Asthma Diabetes mellitus type 1 Surgical History History of dental surgery History of esophagogastroduodenoscopy (EGD) Family History Father Prediabetes Grandfather (Paternal) Diabetes Mother Hypertension MVP (mitral valve prolapse) Social History Smoking Status: Former smoker Age Quit Using Tobacco: 39; packs per day: 1; Years Smoked: 2; Number of Years Since Quit: 4; Second Hand Exposure: No; Hx Alcohol Use: Yes Alcohol type: wine and hard liquor Alcohol type Comment: 4 glasses wine daily Hx Substance Use: No Preferred Language: Armenian Communication Ability: Effective Educational/Development Assistant Required: No Beliefs That Will Affect Care: None marital status: marital status details: Single parent Current Living Situation: Alone and Other current occupational status: unemployed Feels Safe at Home: Yes Childhood Exposure to Second-Hand Smoke: No Assistive Devices: None Allergies Allergies Allergy/AdvReac Type Severity Reaction Status Date / Time theophylline AdvReac Unknown VERTIGO Verified 05/26/20 14:25 Home Meds Home Medications Medication Instructions Recorded Confirmed fluticasone propion-salmeterol 1 inh INHALATION QAM 02/27/19 05/26/20 [Advair Diskus] albuterol sulfate [Ventolin HFA] 2 puff INHALATION Q6H PRN 07/23/19 05/26/20 Previous Rx's Medication Instructions Recorded folic acid 1 mg PO QAM #0 tab 07/27/19 multivitamin [Daily-Harris] 1 tab PO QAM #0 tab 07/27/19 thiamine HCl (vitamin B1) [Vitamin 100 mg PO QAM #0 tab 07/27/19 B-1] pantoprazole 40 mg PO QAM #30 tab 12/21/19 blood sugar diagnostic [ReliOn #50 ea 03/09/20 Prime Test Strips] insulin NPH and regular human See Rx Instructions .ROUTE 03/09/20 [Novolin 70/30 U-100 Insulin] .COMPLEX #10 ml insulin regular human See Rx Instructions .ROUTE 03/09/20 .COMPLEX #15 ml insulin syringe-needle U-100 [BD #100 ea 03/09/20 Insulin Syringe Ultra-Fine] insulin syringe-needle U-100 [BD #100 ea 03/09/20 Insulin Syringe] lancets [ReliOn Thin Lancets] #100 ea 03/09/20 lancets [ReliOn Ultra Thin Plus #100 ea 03/09/20 Lancets] magnesium chloride 64 mg PO BID #60 tab 03/09/20 pen needle, diabetic [ReliOn Pen #50 ea 03/09/20 [place]] potassium chloride 10 meq PO BID #60 tab 03/09/20 Results & Data (ED) Vital Signs Vital Signs - 24 hr 05/26/20 12:56 05/26/20 14:35 05/26/20 16:46 Temperature 37.1 C Temperature Source Oral Pulse Rate 118 H 100 H Pulse Rate [Apical] 104 H Pulse Rate from SpO2 Sensor 101 H Respiratory Rate 20 16 20 Blood Pressure 121/74 85/60 L Blood Pressure [Left Arm] 97/71 L Blood Pressure Mean 89 69 Blood Pressure Mean [Left Arm] 79 Pulse Oximetry 98 98 Oxygen Delivery Method Room Air Room Air Sepsis Recent Fever Within 48 Hours No Sepsis New/Unexplained Change in Mental Status No Sepsis Action Taken by Nursing No Action Required 05/26/20 17:00 05/26/20 17:30 05/26/20 17:42 Temperature Temperature Source Pulse Rate 108 H 111 H 105 H Pulse Rate [Apical] Pulse Rate from SpO2 Sensor 107 H 112 H Respiratory Rate 24 27 H 16 Blood Pressure 103/71 Blood Pressure [Left Arm] Blood Pressure Mean 75 Blood Pressure Mean [Left Arm] Pulse Oximetry 97 100 Oxygen Delivery Method Sepsis Recent Fever Within 48 Hours Sepsis New/Unexplained Change in Mental Status Sepsis Action Taken by Nursing 05/26/20 17:44 05/26/20 17:45 05/26/20 18:00 Temperature Temperature Source Pulse Rate 103 H 103 H 109 H Pulse Rate [Apical] Pulse Rate from SpO2 Sensor 103 H 101 H 109 H Respiratory Rate 26 H 24 25 H Blood Pressure 96/61 L 97/59 L 105/63 Blood Pressure [Left Arm] Blood Pressure Mean 69 68 79 Blood Pressure Mean [Left Arm] Pulse Oximetry 98 97 98 Oxygen Delivery Method Sepsis Recent Fever Within 48 Hours Sepsis New/Unexplained Change in Mental Status Sepsis Action Taken by Nursing 05/26/20 18:15 05/26/20 18:30 05/26/20 18:45 Temperature Temperature Source Pulse Rate 101 H 112 H 103 H Pulse Rate [Apical] Pulse Rate from SpO2 Sensor 101 H 112 H 104 H Respiratory Rate 22 21 26 H Blood Pressure 96/67 L 105/68 95/65 L Blood Pressure [Left Arm] Blood Pressure Mean 75 84 75 Blood Pressure Mean [Left Arm] Pulse Oximetry 95 97 97 Oxygen Delivery Method Room Air Sepsis Recent Fever Within 48 Hours Sepsis New/Unexplained Change in Mental Status Sepsis Action Taken by Nursing 05/26/20 19:00 05/26/20 19:15 05/26/20 19:30 Temperature Temperature Source Pulse Rate Pulse Rate [Apical] Pulse Rate from SpO2 Sensor 106 H 105 H 104 H Respiratory Rate 24 20 21 Blood Pressure 93/60 L 98/51 L 90/59 L Blood Pressure [Left Arm] Blood Pressure Mean 77 74 68 Blood Pressure Mean [Left Arm] Pulse Oximetry 95 94 94 Oxygen Delivery Method Room Air Room Air Room Air Sepsis Recent Fever Within 48 Hours Sepsis New/Unexplained Change in Mental Status Sepsis Action Taken by Nursing 05/26/20 19:45 05/26/20 20:00 05/26/20 20:15 Temperature Temperature Source Pulse Rate Pulse Rate [Apical] Pulse Rate from SpO2 Sensor 109 H Respiratory Rate 18 22 22 Blood Pressure 105/67 104/59 L 100/63 Blood Pressure [Left Arm] Blood Pressure Mean 71 75 73 Blood Pressure Mean [Left Arm] Pulse Oximetry 98 95 96 Oxygen Delivery Method Room Air Sepsis Recent Fever Within 48 Hours Sepsis New/Unexplained Change in Mental Status Sepsis Action Taken by Nursing 05/26/20 20:30 05/26/20 20:46 05/26/20 21:00 Temperature Temperature Source Pulse Rate 100 H Pulse Rate [Apical] Pulse Rate from SpO2 Sensor Respiratory Rate 13 18 23 Blood Pressure 125/69 103/71 107/58 L Blood Pressure [Left Arm] Blood Pressure Mean 79 86 66 Blood Pressure Mean [Left Arm] Pulse Oximetry 94 96 95 Oxygen Delivery Method Sepsis Recent Fever Within 48 Hours Sepsis New/Unexplained Change in Mental Status Sepsis Action Taken by Nursing 05/26/20 21:15 05/26/20 21:30 05/26/20 21:45 Temperature Temperature Source Pulse Rate 107 H 90 Pulse Rate [Apical] Pulse Rate from SpO2 Sensor Respiratory Rate 20 20 21 Blood Pressure 88/59 L 95/49 L 101/53 L Blood Pressure [Left Arm] Blood Pressure Mean 69 70 69 Blood Pressure Mean [Left Arm] Pulse Oximetry 95 95 95 Oxygen Delivery Method Sepsis Recent Fever Within 48 Hours Sepsis New/Unexplained Change in Mental Status Sepsis Action Taken by Nursing Laboratory Data Attestation: I reviewed the patient's lab results. Result diagrams: 05/26/20 14:20 05/26/20 18:17 Lab Results 05/26/20 05/26/20 05/26/20 Range/Units 14:20 14:20 14:20 WBC 10.96 H (4.8-10.8) K/uL RBC 3.43 L (4.2-5.4) M/uL Hgb 12.2 (12.0-16.0) g/dL Hct 36.8 L (37-47) % MCV 107.3 H (80-100) fL MCH 35.6 H (25-34) pg MCHC 33.2 (32-36) g/dL RDW Std Deviation 67.6 H (36.4-46.3) fL RDW Coeff of Suzanne 17.2 H (11.5-14.5) % Plt Count 210 (130-400) K/uL MPV 10.1 (7.4-10.4) fL Immature Gran % (Auto) 0.7 % Neut % (Auto) 80.7 % Lymph % (Auto) 8.1 % [place] % (Auto) 9.6 % Eos % (Auto) 0.5 % Baso % (Auto) 0.4 % Neut # (Auto) 8.84 H (1.4-6.5) K/uL Lymph # (Auto) 0.89 L (1.2-3.4) K/uL [place] # (Auto) 1.05 H (0.11-0.59) K/uL Eos # (Auto) 0.06 (0-0.5) K/uL Baso # (Auto) 0.04 (0-0.2) K/uL Immature Gran # (Auto) 0.08 H (0.00-0.02) K/uL PT 28.6 H (9.0-12.0) Seconds INR 2.9 H (0.9-1.1) APTT 39.3 H (21.0-31.0) Seconds PTT Ratio 1.4 VBG pH (7.36-7.41) VBG pCO2 (38-50) mmHg VBG pO2 mmHg VBG HCO3 mmol/L VBG O2 Saturation % VBG Base Excess mEq/L Barometric Pressure mm/Hg Sodium 129 L (136-145) mmol/L Potassium 3.8 (3.5-5.1) mmol/L Chloride 97 L (98-107) mmol/L Carbon Dioxide 23 (21-32) mmol/L Anion Gap 9.0 (3-11) BUN 1 L (7-18) mg/dl Creatinine 0.57 L (0.6-1.2) mg/dl Est Cr Clr Drug Dosing 126.7 ml/min Est GFR ( Amer) 130.7 Est GFR (Non-Af Amer) 112.7 BUN/Creatinine Ratio 2.4 L (10-20) Glucose 64 L (70-99) mg/dl POC Glucose (70-99) mg/dl Lactate (0.4-2.0) mmol/L Calcium 8.5 (8.5-10.1) mg/dl Phosphorus 0.8 L* (2.5-4.9) mg/dl Magnesium 2.5 H (1.8-2.4) mg/dl Total Bilirubin 16.9 H (0.2-1) mg/dl Direct Bilirubin 13.9 H (0-0.2) mg/dl AST 160 H (15-37) U/L ALT 57 (12-78) U/L Alkaline Phosphatase 362 H (45-117) U/L Ammonia (11-32) umol/L Troponin I < 0.015 (0-0.045) ng/ml Total Protein 5.9 L (6.4-8.2) gm/dl Albumin 1.9 L (3.4-5.0) gm/dl Globulin 4.0 (2.5-4.0) gm/dl Albumin/Globulin Ratio 0.5 L (0.9-2) Lipase 18 L (73-393) U/L TSH 10.900 H (0.300-4.500) uIu/ml Free T4 1.27 (0.8-1.6) ng/dl HCG, Qual (Negative) Acetaminophen Ethyl Alcohol mg/dL (0-3) mg/dl COVID-19 Eval Order SARS-CoV-2, RNA, NAAT (NEGATIVE) 05/26/20 05/26/20 05/26/20 Range/Units 14:20 14:20 14:20 WBC (4.8-10.8) K/uL RBC (4.2-5.4) M/uL Hgb (12.0-16.0) g/dL Hct (37-47) % MCV (80-100) fL MCH (25-34) pg MCHC (32-36) g/dL RDW Std Deviation (36.4-46.3) fL RDW Coeff of Suzanne (11.5-14.5) % Plt Count (130-400) K/uL MPV (7.4-10.4) fL Immature Gran % (Auto) % Neut % (Auto) % Lymph % (Auto) % [place] % (Auto) % Eos % (Auto) % Baso % (Auto) % Neut # (Auto) (1.4-6.5) K/uL Lymph # (Auto) (1.2-3.4) K/uL [place] # (Auto) (0.11-0.59) K/uL Eos # (Auto) (0-0.5) K/uL Baso # (Auto) (0-0.2) K/uL Immature Gran # (Auto) (0.00-0.02) K/uL PT (9.0-12.0) Seconds INR (0.9-1.1) APTT (21.0-31.0) Seconds PTT Ratio VBG pH (7.36-7.41) VBG pCO2 (38-50) mmHg VBG pO2 mmHg VBG HCO3 mmol/L VBG O2 Saturation % VBG Base Excess mEq/L Barometric Pressure mm/Hg Sodium (136-145) mmol/L Potassium (3.5-5.1) mmol/L Chloride (98-107) mmol/L Carbon Dioxide (21-32) mmol/L Anion Gap (3-11) BUN (7-18) mg/dl Creatinine (0.6-1.2) mg/dl Est Cr Clr Drug Dosing ml/min Est GFR ( Amer) Est GFR (Non-Af Amer) BUN/Creatinine Ratio (10-20) Glucose (70-99) mg/dl POC Glucose (70-99) mg/dl Lactate 3.0 H* (0.4-2.0) mmol/L Calcium (8.5-10.1) mg/dl Phosphorus (2.5-4.9) mg/dl Magnesium (1.8-2.4) mg/dl Total Bilirubin (0.2-1) mg/dl Direct Bilirubin (0-0.2) mg/dl AST (15-37) U/L ALT (12-78) U/L Alkaline Phosphatase (45-117) U/L Ammonia < 10.0 L (11-32) umol/L Troponin I (0-0.045) ng/ml Total Protein (6.4-8.2) gm/dl Albumin (3.4-5.0) gm/dl Globulin (2.5-4.0) gm/dl Albumin/Globulin Ratio (0.9-2) Lipase (73-393) U/L TSH (0.300-4.500) uIu/ml Free T4 (0.8-1.6) ng/dl HCG, Qual (Negative) Acetaminophen Ethyl Alcohol mg/dL 3.4 H (0-3) mg/dl COVID-19 Eval Order SARS-CoV-2, RNA, NAAT (NEGATIVE) 05/26/20 05/26/20 05/26/20 Range/Units 14:20 14:20 18:07 WBC (4.8-10.8) K/uL RBC (4.2-5.4) M/uL Hgb (12.0-16.0) g/dL Hct (37-47) % MCV (80-100) fL MCH (25-34) pg MCHC (32-36) g/dL RDW Std Deviation (36.4-46.3) fL RDW Coeff of Suzanne (11.5-14.5) % Plt Count (130-400) K/uL MPV (7.4-10.4) fL Immature Gran % (Auto) % Neut % (Auto) % Lymph % (Auto) % [place] % (Auto) % Eos % (Auto) % Baso % (Auto) % Neut # (Auto) (1.4-6.5) K/uL Lymph # (Auto) (1.2-3.4) K/uL [place] # (Auto) (0.11-0.59) K/uL Eos # (Auto) (0-0.5) K/uL Baso # (Auto) (0-0.2) K/uL Immature Gran # (Auto) (0.00-0.02) K/uL PT (9.0-12.0) Seconds INR (0.9-1.1) APTT (21.0-31.0) Seconds PTT Ratio VBG pH 7.42 H (7.36-7.41) VBG pCO2 36 L (38-50) mmHg VBG pO2 28 mmHg VBG HCO3 23 mmol/L VBG O2 Saturation < 60.0 % VBG Base Excess -0.9 mEq/L Barometric Pressure 732.5 mm/Hg Sodium (136-145) mmol/L Potassium (3.5-5.1) mmol/L Chloride (98-107) mmol/L Carbon Dioxide (21-32) mmol/L Anion Gap (3-11) BUN (7-18) mg/dl Creatinine (0.6-1.2) mg/dl Est Cr Clr Drug Dosing ml/min Est GFR ( Amer) Est GFR (Non-Af Amer) BUN/Creatinine Ratio (10-20) Glucose (70-99) mg/dl POC Glucose (70-99) mg/dl Lactate 2.8 H* (0.4-2.0) mmol/L Calcium (8.5-10.1) mg/dl Phosphorus (2.5-4.9) mg/dl Magnesium (1.8-2.4) mg/dl Total Bilirubin (0.2-1) mg/dl Direct Bilirubin (0-0.2) mg/dl AST (15-37) U/L ALT (12-78) U/L Alkaline Phosphatase (45-117) U/L Ammonia (11-32) umol/L Troponin I (0-0.045) ng/ml Total Protein (6.4-8.2) gm/dl Albumin (3.4-5.0) gm/dl Globulin (2.5-4.0) gm/dl Albumin/Globulin Ratio (0.9-2) Lipase (73-393) U/L TSH (0.300-4.500) uIu/ml Free T4 (0.8-1.6) ng/dl HCG, Qual Negative (Negative) Acetaminophen Ethyl Alcohol mg/dL (0-3) mg/dl COVID-19 Eval Order SARS-CoV-2, RNA, NAAT (NEGATIVE) 05/26/20 05/26/20 05/26/20 Range/Units 18:17 18:17 18:17 WBC (4.8-10.8) K/uL RBC (4.2-5.4) M/uL Hgb (12.0-16.0) g/dL Hct (37-47) % MCV (80-100) fL MCH (25-34) pg MCHC (32-36) g/dL RDW Std Deviation (36.4-46.3) fL RDW Coeff of Suzanne (11.5-14.5) % Plt Count (130-400) K/uL MPV (7.4-10.4) fL Immature Gran % (Auto) % Neut % (Auto) % Lymph % (Auto) % [place] % (Auto) % Eos % (Auto) % Baso % (Auto) % Neut # (Auto) (1.4-6.5) K/uL Lymph # (Auto) (1.2-3.4) K/uL [place] # (Auto) (0.11-0.59) K/uL Eos # (Auto) (0-0.5) K/uL Baso # (Auto) (0-0.2) K/uL Immature Gran # (Auto) (0.00-0.02) K/uL PT 27.9 H (9.0-12.0) Seconds INR 2.8 H (0.9-1.1) APTT (21.0-31.0) Seconds PTT Ratio VBG pH (7.36-7.41) VBG pCO2 (38-50) mmHg VBG pO2 mmHg VBG HCO3 mmol/L VBG O2 Saturation % VBG Base Excess mEq/L Barometric Pressure mm/Hg Sodium 131 L (136-145) mmol/L Potassium 3.3 L (3.5-5.1) mmol/L Chloride 100 (98-107) mmol/L Carbon Dioxide 23 (21-32) mmol/L Anion Gap 8.0 (3-11) BUN 1 L (7-18) mg/dl Creatinine 0.63 (0.6-1.2) mg/dl Est Cr Clr Drug Dosing 114.6 ml/min Est GFR ( Amer) 126.4 Est GFR (Non-Af Amer) 109.1 BUN/Creatinine Ratio 1.8 L (10-20) Glucose 144 H (70-99) mg/dl POC Glucose (70-99) mg/dl Lactate (0.4-2.0) mmol/L Calcium 7.7 L (8.5-10.1) mg/dl Phosphorus (2.5-4.9) mg/dl Magnesium (1.8-2.4) mg/dl Total Bilirubin (0.2-1) mg/dl Direct Bilirubin (0-0.2) mg/dl AST (15-37) U/L ALT (12-78) U/L Alkaline Phosphatase (45-117) U/L Ammonia (11-32) umol/L Troponin I (0-0.045) ng/ml Total Protein (6.4-8.2) gm/dl Albumin (3.4-5.0) gm/dl Globulin (2.5-4.0) gm/dl Albumin/Globulin Ratio (0.9-2) Lipase (73-393) U/L TSH (0.300-4.500) uIu/ml Free T4 (0.8-1.6) ng/dl HCG, Qual (Negative) Acetaminophen TNP Ethyl Alcohol mg/dL (0-3) mg/dl COVID-19 Eval Order SARS-CoV-2, RNA, NAAT (NEGATIVE) 05/26/20 05/26/20 05/26/20 Range/Units 18:19 19:16 19:16 WBC (4.8-10.8) K/uL RBC (4.2-5.4) M/uL Hgb (12.0-16.0) g/dL Hct (37-47) % MCV (80-100) fL MCH (25-34) pg MCHC (32-36) g/dL RDW Std Deviation (36.4-46.3) fL RDW Coeff of Suzanne (11.5-14.5) % Plt Count (130-400) K/uL MPV (7.4-10.4) fL Immature Gran % (Auto) % Neut % (Auto) % Lymph % (Auto) % [place] % (Auto) % Eos % (Auto) % Baso % (Auto) % Neut # (Auto) (1.4-6.5) K/uL Lymph # (Auto) (1.2-3.4) K/uL [place] # (Auto) (0.11-0.59) K/uL Eos # (Auto) (0-0.5) K/uL Baso # (Auto) (0-0.2) K/uL Immature Gran # (Auto) (0.00-0.02) K/uL PT (9.0-12.0) Seconds INR (0.9-1.1) APTT (21.0-31.0) Seconds PTT Ratio VBG pH (7.36-7.41) VBG pCO2 (38-50) mmHg VBG pO2 mmHg VBG HCO3 mmol/L VBG O2 Saturation % VBG Base Excess mEq/L Barometric Pressure mm/Hg Sodium (136-145) mmol/L Potassium (3.5-5.1) mmol/L Chloride (98-107) mmol/L Carbon Dioxide (21-32) mmol/L Anion Gap (3-11) BUN (7-18) mg/dl Creatinine (0.6-1.2) mg/dl Est Cr Clr Drug Dosing ml/min Est GFR ( Amer) Est GFR (Non-Af Amer) BUN/Creatinine Ratio (10-20) Glucose (70-99) mg/dl POC Glucose 157 H (70-99) mg/dl Lactate (0.4-2.0) mmol/L Calcium (8.5-10.1) mg/dl Phosphorus (2.5-4.9) mg/dl Magnesium (1.8-2.4) mg/dl Total Bilirubin (0.2-1) mg/dl Direct Bilirubin (0-0.2) mg/dl AST (15-37) U/L ALT (12-78) U/L Alkaline Phosphatase (45-117) U/L Ammonia (11-32) umol/L Troponin I (0-0.045) ng/ml Total Protein (6.4-8.2) gm/dl Albumin (3.4-5.0) gm/dl Globulin (2.5-4.0) gm/dl Albumin/Globulin Ratio (0.9-2) Lipase (73-393) U/L TSH (0.300-4.500) uIu/ml Free T4 (0.8-1.6) ng/dl HCG, Qual (Negative) Acetaminophen Ethyl Alcohol mg/dL (0-3) mg/dl COVID-19 Eval Order Covid19 IDNow [facility] SARS-CoV-2, RNA, NAAT NEGATIVE (NEGATIVE) Administered Medications Lactated Ringer's (Lr) 1,000 mls @ 125 mls/hr IV .Q8H ARMANI Stop: 06/25/20 19:29 Last Admin: 05/26/20 20:35 Dose: 125 mls/hr Documented by: [id number] Discontinued Medications Lorazepam (Ativan) 1 mg in 2 mls @ 2 mls/min IV NOW STA Stop: 05/26/20 13:39 Last Admin: 05/26/20 14:34 Dose: 2 mls/min Documented by: [id number] Multivitamins 10 ml/ Thiamine HCl 100 mg/ Folic Acid 1 mg/Sodium Chloride 1,01 1.2 mls @ 1,011.2 mls/hr IV .Q1H ONE Stop: 05/26/20 14:37 Last Infusion: 05/26/20 15:50 Dose: 0 mls/hr Documented by: [id number] Admin: 05/26/20 14:34 Dose: 1,011.2 mls/hr Documented by: [id number] Thiamine HCl 100 mg/ Syringe 10 mls @ 2 mls/min IV NOW STA Stop: 05/26/20 15:22 Last Admin: 05/26/20 17:03 Dose: 2 mls/min Documented by: [id number] Dextrose/Sodium Chloride (D5w And Nss) 1,000 mls @ 999 mls/hr IV .Q1H1M STA Stop: 05/26/20 16:18 Last Infusion: 05/26/20 17:39 Dose: 0 mls/hr Documented by: [id number] Admin: 05/26/20 16:44 Dose: 999 mls/hr Documented by: [id number] Phytonadione 10 mg/ Sodium (Chloride) 51 mls @ 102 mls/hr IV ONE ONE Stop: 05/26/20 16:03 Last Infusion: 05/26/20 18:08 Dose: 0 mls/hr Documented by: [id number] Admin: 05/26/20 17:38 Dose: 102 mls/hr Documented by: [id number] Potassium Phosphate 15 mmol/ (Sodium Chloride) 255 mls @ 88 mls/hr IV NOW STA Stop: 05/26/20 18:47 Last Infusion: 05/26/20 20:50 Dose: 0 mls/hr Documented by: [id number] Admin: 05/26/20 17:39 Dose: 88 mls/hr Documented by: [id number] Ceftriaxone Sodium (Rocephin) 2,000 mg in 70 mls @ 140 mls/hr IV NOW STA Stop: 05/26/20 18:07 Last Infusion: 05/26/20 19:02 Dose: 0 mls/hr Documented by: [id number] Admin: 05/26/20 18:32 Dose: 140 mls/hr Documented by: [id number] Potassium Chloride (K Sal / Wtr) 10 meq in 100 mls @ 100 mls/hr IV Q1H ARMANI Stop: 05/26/20 21:29 Last Admin: 05/26/20 20:35 Dose: 100 mls/hr Documented by: [id number] Ioversol (Ioversol 100ml) 91 ml IV ONCE ONE Stop: 05/26/20 16:28 Last Admin: 05/26/20 16:28 Dose: 91 ml Documented by: [id number] Methylprednisolone (Methylprednisolone 125 Mg/2 Ml Vial) 32 mg IV NOW STA Stop: 05/26/20 19:57 Last Admin: 05/26/20 20:31 Dose: 32 mg Documented by: [id number] Discharge Plan Visit Data Chief Complaint: Illness ED Provider: Rafiq Martinez Discharge Problem: Acute liver failure, Alcoholism, Acute alcoholic hepatitis, Hypophosphatemia, Hypokalemia, Lactic acidosis, Hypoalbuminemia, Elevated INR Patient Disposition: Still a Patient Discharge Instructions Interventions: ED Discharge Assessment Last Done: 05/26/20 21:49 Forms Stand Alone Forms: My [facility] [place] [employer] Prescriptions Prescriptions: No Action potassium chloride 10 mEq tablet extended release 10 meq PO BID Qty: 60 RF: 1 magnesium chloride 64 mg tablet,delayed release (DR/EC) 64 mg PO BID Qty: 60 RF: 1 Novolin 70/30 U-100 Insulin 100 unit/mL (70-30) suspension See Rx Instructions .ROUTE .COMPLEX Qty: 10 RF: 12 insulin regular human 100 unit/mL (3 mL) insulin pen See Rx Instructions .ROUTE .COMPLEX Qty: 15 RF: 12 (DME) pen needle, diabetic [ReliOn Pen [place]] 32 gauge x 5/32" needle See Rx Instructions .ROUTE .MEDSUPPLY Qty: 50 RF: 12 (DME) ReliOn Prime Test Strips Strip See Rx Instructions .ROUTE .MEDSUPPLY Qty: 50 RF: 0 (DME) lancets [ReliOn Thin Lancets] 26 gauge misc See Rx Instructions .ROUTE .MEDSUPPLY Qty: 100 RF: 12 (DME) BD Insulin Syringe 1 mL 26 x 1/2" syringe See Rx Instructions .ROUTE .MEDSUPPLY Qty: 100 RF: 12 (DME) lancets [ReliOn Ultra Thin Plus Lancets] Misc See Rx Instructions .ROUTE .MEDSUPPLY Qty: 100 RF: 12 (DME) insulin syringe-needle U-100 [BD Insulin Syringe Ultra-Fine] 0.5 mL 31 gauge x 5/16" syringe See Rx Instructions .ROUTE .MEDSUPPLY Qty: 100 RF: 12 fluticasone propion-salmeterol [Advair Diskus] 250-50 mcg/dose blister with device 1 inh inhalation QAM RF: 0 albuterol sulfate [Ventolin HFA] 90 mcg/actuation Hfa Aerosol Inhaler 2 puff INHALATION Q6H PRN (Reason: Shortness Of Breath) RF: 0 multivitamin [Daily-Harris] Tablet 1 tab PO QAM Qty: 0 RF: 0 thiamine HCl (vitamin B1) [Vitamin B-1] 100 mg Tablet 100 mg PO QAM Qty: 0 RF: 0 folic acid 1 mg Tablet 1 mg PO QAM Qty: 0 RF: 0 pantoprazole 40 mg Tablet,Delayed Release (Dr/Ec) 40 mg PO QAM Qty: 30 RF: 0 Referrals Referrals: Elliot Whatley MD [Primary Care Provider] -
--- NOTE | 2020-05-26 16:43 | CT Scan Report ---
ABDOMEN AND PELVIS CT WITH IV CONTRAST CT DOSE: 639.62 mGy.cm HISTORY: liver failure, abd distension TECHNIQUE: Multiaxial CT images of the abdomen and pelvis were performed following the use of intrave nous contrast. A dose lowering technique was utilized adhering to the principles of ALARA. COMPARISON STUDY: Abdomen and pelvis CT 02/27/2020. FINDINGS: A few bibasilar linear densities. No pneumoperitoneum. No pneumatosis. No fractures within the visualized osseous structures. Moderate body wall edema is noted. The liver is markedly enlarged. This has progressed in the interval. There are severe hepatic steatosis with areas of focal fatty sp aring near the gallbladder fossa. The main portal vein is patent. Small amount of perihepatic ascites . There is also a small amount of ascites within the pelvis. Mild gallbladder wall thickening with pe richolecystic edema. The pancreas enhances normally. The spleen is normal in size. Adrenal glands are unremarkable. Normal right kidney. No hydronephrosis. There is a punctate nonobstructing stone withi n the left kidney. No retroperitoneal lymphadenopathy. The bladder is unremarkable. The uterus and bi lateral adnexa are within normal limits. No bowel wall thickening or obstruction. Submucosal fat depo sition within the proximal to mid colon consistent with chronic change. The appendix is partially obs cured by the ascites but likely normal in caliber. IMPRESSION: 1. Severe hepatomegaly with severe steatosis. This has progressed. 2. Small amount of ascites and moderate body wall edema. 3. Mild gallbladder wall thickening with associated pericholecystic fluid. This is likely due to the underlying hepatic pathology. An acute cholecystitis could also have a similar appearance in the [facility] clinical setting. 4. Left-sided nephrolithiasis. No hydronephrosis. 5. No definite bowel wall thickening or obstruction. ACT 112: Negative or not required by law. Electronically signed by: Sam Bobby M.D. 05/26/2020 4:42 PM
[2020-05-26] MEDS ORDERED: cefTRIAXone SODIUM 2,000 MG/70 ML BAG IV STA (17:38)
--- NOTE | 2020-05-26 18:05 | Electrocardiogram Report ---
Test Reason : Blood Pressure : / mmHG Vent. Rate : 112 BPM Atrial Rate : 112 BPM P-R Int : 130 ms QRS Dur : 080 ms QT Int : 322 ms P-R-T Axes : 042 034 026 degrees QTc Int : 439 ms Sinus tachycardia Otherwise normal ECG When compared with ECG of 27-FEB-2020 15:04, No significant change was found Confirmed by Arnold Schaefer ([id number]) on 05/26/2020 6:05:06 PM Referred By: Confirmed By:Faisal Schaefer
[2020-05-26 18:44] LABS: INR 2.8 (0.9-1.1); Prothrombin Time 27.9 Seconds (9.0-12.0)
[2020-05-26 18:58] LABS: BUN Creatinine Ratio 1.8 (10-20); Calcium 7.7 mg/dl (8.5-10.1); Creatinine Clr Calc Pharmacy 114.6 ml/min; Est GFR (African American) 126.4; Est GFR (Non-African American) 109.1; Potassium 3.3 mmol/L (3.5-5.1)
[2020-05-26] MEDS ORDERED: LACTATED RINGER'S 1,000 ML IV SCH (19:30)
[2020-05-26] MEDS ORDERED: methylPREDNISolone 125 MG/2 ML VIAL IV STA (19:56)
[2020-05-26] MEDS: POTASSIUM CHLORIDE / WTR 10 MEQ/100 ML PLCT IV SCH ×2 (20:35→23:18)
--- NOTE | 2020-05-26 20:47 | History & Physical Report ---
Date of Service May 26, 2020 Assessment & Plan (1) Acute alcoholic hepatitis: This is a 44-year-old female who has significant past medical history of alcohol dependence, history of alcohol withdrawal, asthma, major depressive disorder, panic disorder, history of pancreatitis, recently diagnosed T1DM who presents to ED secondary to increased swelling and jaundice x2 weeks. In ED patient was found to be jaundice and had scleral icterus. She remained hemodynamically stable. In ED lab abnormalities concerning for acute liver failure with total bilirubin 16.9, direct bilirubin 13.9, AST 160, ALT 57, Ezio 1.8, lactic acid 3.0, K3.3, INR 2.9, H&H 12.2 and 36.8, to WBC 10.96k, plt 210. CT A/P: 1. Severe hepatomegaly with severe steatosis. This has progressed. 2. Small amount of ascites and moderate body wall edema. 3. Mild gallbladder wall thickening with associated pericholecystic fluid. This is likely due to the underlying hepatic pathology. An acute cholecystitis could also have a similar appearance in the appropriate clinical setting. B/L Venous duplex negative and CXR unremarkable. ED provider spoke with GI on-call Dr. Harris. CT abdomen pelvis recommended, small amount of ascites. Bedside ultrasound performed by ED provider did not reveal significant ascites for paracentesis. She was treated empirically for SBP with ceftriaxone. Meld score 32, Maddrey Score 94 Started appropriately on methylprednisolone 32 mg IV. Admit to PCU Continue methylprednisolone 32 mg IV daily Received 10 mg IV vitamin K, monitor PT/INR Obtain portal vein ultrasound, rule out PVT Consult GI No signs or symptoms of hepatic encephalopathy CT abdomen pelvis showed mild gallbladder wall thickening -likely in setting of acute hepatitis, she is afebrile and no pain and clinically does not correlate with cholecystitis She does have significant abdominal distention -only minimal ascites noted Likely will benefit from Lasix and IV albumin -but will hold until more stable/lactic acidosis improves Alcohol withdrawal protocol Replace electrolytes Alcohol cessation (2) Elevated INR: INR 2.8 Received 10 mg IV vitamin K Repeat INR in a.m. Auto anticoagulated in setting of liver disease (3) Lactic acidosis: In the setting of acute alcohol hepatitis/chronic liver disease Lactic acid decreased since patient in ED, will continue to monitor closely Currently patient is receiving IV fluids with LR, if lactic acid still elevated, will start IV albumin (4) Hypokalemia: K3.3 Received KCl 10 M EQ IV x2 in ED Monitor (5) Hypophosphatemia: Received 15 mmol K-Phos Repeat at 10 PM Replete as needed (6) Alcohol abuse: Prior history of withdrawal Daily alcohol use, 4 glasses of wine daily AWSS protocol Gabapentin taper, as needed Ativan Daily thiamine and folic acid Received banana bag in ED (7) Diabetes mellitus type 1: Recently diagnosed 02/2020 secondary to DKA and prior diagnosis of acute pancreatitis Last A1c 5.8, 02/2020, repeat in a.m. Continue NPH and NovoLog Consult glycemic pharmacist for assistance given IV steroid use Uses insulin NPH at home, followed by [facility] In the ED she was found hypoglycemic, and started on D5 (8) Edema: Patient received banana bag and IV fluid in ED Will hold on further IV fluid intake as long as pressure remained stable Given current lactic acidosis will not administer Lasix with albumin at this time GI consulted (9) Hypoalbuminemia: In setting of malnutrition and alcohol abuse Dietitian consulted Consider IV albumin GI on board (10) Asthma: No acute exacerbation Continue Advair, as needed albuterol (11) DVT prophylaxis: SCDS/TEDS Disposition: Admit to PCU Follow up: PCP Dr. Whatley upon discharge along with appropriate GI follow up PT was seen and examined in collaboration with Dr. Pettit. History of Present Illness Chief Complaint: Increased swelling and jaundice x2 weeks. Primary Care Provider: Elliot Whatley MD This is a 44-year-old female who has significant past medical history of alcohol dependence, history of alcohol withdrawal, asthma, major depressive disorder, panic disorder, history of pancreatitis, recently diagnosed T1DM who presents to ED secondary to increased swelling and jaundice x2 weeks. Unfortunately she continues to drink alcohol, last drink at approximately 9 AM and a glass of wine. She admits to drinking 2 glasses of wine in the morning and 2 glasses of wine in the evening. Of significance she was hospitalized in critical care February 2020 secondary to new onset T1DM, DKA, metabolic encephalopathy and acute pancreatitis. Since then she has been managing her diabetes with insulin and following with [facility] pharmacy. She has not followed up with any other outpatient providers. She presents to ED today due to daughter telling her she has been more yellow over the past week. She also admits to significant increase in lower extremity swelling, abdominal bloating, early satiety, nausea and jaundice over the past 2 weeks. She specifically noticed worsening and bloating over the past 4 days. She denies any recent fever, chills, sweats, lightheadedness, dizziness, syncope, chest pain, shortness of breath at rest, chest pain, palpitations, emesis, hematemesis, diarrhea, melena, hematochezia, dysuria, increased urgency or frequency with urination. Appetite has otherwise been decreased. Last evening she difficulty sleeping secondary to significant pain in her lower extremities specifically in her proximal thighs. She says this is improved. Currently she denies any pain, but does occasionally have mild epigastric discomfort. She feels improved when at rest and lying down. 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 She remained hemodynamically stable. In ED lab abnormalities concerning for acute liver failure with total bilirubin 16.9, direct bilirubin 13.9, AST 160, ALT 57, Ezio 1.8, lactic acid 3.0, K3.3, INR 2.9, H&H 12.2 and 36.8, to WBC 10.96k, plt 210. CT A/P: 1. Severe hepatomegaly with severe steatosis. This has progressed. 2. Small amount of ascites and moderate body wall edema. 3. Mild gallbladder wall thickening with associated pericholecystic fluid. This is likely due to the underlying hepatic pathology. An acute cholecystitis could also have a similar appearance in the appropriate clinical setting. 4. Left-sided nephrolithiasis. No hydronephrosis. 5. No definite bowel wall thickening or obstruction. B/L Venous duplex negative and CXR unremarkable. Per ED provider he spoke with on-call GI who recommended above CT abdomen pelvis to explore for possible paracentesis if sufficient ascites present. She was treated empirically with IV ceftriaxone for SBP. Repeat INR at the recommendation of on-call GI after 4 hours did not reveal an elevation, but remained stable at 2.8. Recommendation per GI was to start IV steroids. She received potassium and phosphorus replacement. She received 10 mg IV vitamin K. Lastly she was given 30 mg IV methylprednisolone due to acute alcoholic hepatitis. Allergies Allergy/AdvReac Type Severity Reaction Status Date / Time theophylline AdvReac Unknown VERTIGO Verified 05/26/20 14:25 Home Medications Medication Instructions Recorded Confirmed Type fluticasone propion-salmeterol 1 inh INHALATION QAM 02/27/19 05/26/20 History [Advair Diskus] albuterol sulfate [Ventolin HFA] 2 puff INHALATION Q6H PRN 07/23/19 05/26/20 History folic acid 1 mg PO QAM #0 tab 07/27/19 05/26/20 Rx multivitamin [Daily-Harris] 1 tab PO QAM #0 tab 07/27/19 05/26/20 Rx thiamine HCl (vitamin B1) [Vitamin 100 mg PO QAM #0 tab 07/27/19 05/26/20 Rx B-1] pantoprazole 40 mg PO QAM #30 tab 12/21/19 05/26/20 Rx blood sugar diagnostic [ReliOn #50 ea 03/09/20 Rx Prime Test Strips] insulin NPH and regular human See Rx Instructions .ROUTE 03/09/20 05/26/20 Rx [Novolin 70/30 U-100 Insulin] .COMPLEX #10 ml insulin regular human See Rx Instructions .ROUTE 03/09/20 05/26/20 Rx .COMPLEX #15 ml insulin syringe-needle U-100 [BD #100 ea 03/09/20 Rx Insulin Syringe Ultra-Fine] insulin syringe-needle U-100 [BD #100 ea 03/09/20 Rx Insulin Syringe] lancets [ReliOn Thin Lancets] #100 ea 03/09/20 Rx lancets [ReliOn Ultra Thin Plus #100 ea 03/09/20 Rx Lancets] magnesium chloride 64 mg PO BID #60 tab 03/09/20 05/26/20 Rx pen needle, diabetic [ReliOn Pen #50 ea 03/09/20 Rx [place]] potassium chloride 10 meq PO BID #60 tab 03/09/20 05/26/20 Rx Past Med/Surg History Medical History Alcohol abuse Anxiety Asthma Diabetes mellitus type 1 Surgical History History of dental surgery History of esophagogastroduodenoscopy (EGD) Family History Father Prediabetes Grandfather (Paternal) Diabetes Mother Hypertension MVP (mitral valve prolapse) Social History Smoking Status: Former smoker Age Quit Using Tobacco: 39; packs per day: 1; Years Smoked: 2; Number of Years Since Quit: 4; Second Hand Exposure: No; Hx Alcohol Use: Yes Alcohol type: wine and hard liquor Alcohol type Comment: 4 glasses wine daily Hx Substance Use: Yes (pt stated doesn't use now) Preferred Language: Indonesian Communication Ability: Effective Pumper Gager Required: No Beliefs That Will Affect Care: None marital status: marital status details: Single parent Current Living Situation: Alone current occupational status: unemployed Feels Safe at Home: Yes Safety Concerns: Feels Safe At This Time Childhood Exposure to Second-Hand Smoke: No Assistive Devices: None Review of Systems Review of Systems: All systems reviewed & are unremarkable except as noted in HPI & below Physical Exam Physical Exam: Constitutional: Acutely ill-appearing, jaundiced, WD/WN, vitals as above, NAD, lying in bed, answers questions appropriately, Head: Normocephalic, Atraumatic Eyes: PERRL, conjunctivae normal, anicteric sclerae ENMT: external ear and nose normal, oropharynx normal Neck: trachea midline, no thyromegaly normal visual inspection Respiratory: normal respiratory effort, diminished breath sounds at bases, lungs clear to auscultation, no wheeze, rales, rhonchi. Normal insp/exp effort, no accessory muscle use Cardiovascular: RRR, no murmur, +3 lower extremity edema extending proximal thighs, no edema Vessels: no JVD or carotid bruit Chest: normal inspection of chest Abdomen: Distended abdomen, caput medusa, hepatomegaly palpated, normoactive bowel sounds x 4, firm, nontender to palpation Musculoskeletal: no cyanosis or clubbing, extremities motor strength 5/5 Skin: Palmar erythema, spider angiomas, warm and dry normal turgor Neurologic: PERRL, EOMI, accommodation nl, no face palsy, no dysarthria CN's II-XI intact bilaterally and moves all extremities Psychiatric: A+Ox3, euthymic affect : deferred Results & Data Results & Data ([facility]) Vital Signs (Past 12 Hours) Vital Signs Temp Pulse Pulse Resp BP BP Pulse Ox 05/26/20 19:45 18 105/67 98 05/26/20 19:30 21 90/59 L 94 05/26/20 19:15 20 98/51 L 94 05/26/20 19:00 24 93/60 L 95 05/26/20 18:45 103 H 26 H 95/65 L 97 05/26/20 18:30 112 H 21 105/68 97 05/26/20 18:15 101 H 22 96/67 L 95 05/26/20 18:00 109 H 25 H 105/63 98 05/26/20 17:45 103 H 24 97/59 L 97 05/26/20 17:44 103 H 26 H 96/61 L 98 05/26/20 17:42 105 H 16 103/71 05/26/20 17:30 111 H 27 H 100 05/26/20 17:00 108 H 24 97 05/26/20 16:46 100 H 20 85/60 L 98 05/26/20 14:35 104 H 16 97/71 L 05/26/20 12:56 37.1 C 118 H 20 121/74 98 Laboratory Results Short CBC 05/26/20 05/26/20 05/26/20 Range/Units 14:20 14:20 14:20 WBC 10.96 H (4.8-10.8) K/uL Hgb 12.2 (12.0-16.0) g/dL Hct 36.8 L (37-47) % Plt Count 210 (130-400) K/uL INR 2.9 H (0.9-1.1) Lactate 3.0 H* (0.4-2.0) mmol/L 05/26/20 05/26/20 Range/Units 18:07 18:17 WBC (4.8-10.8) K/uL Hgb (12.0-16.0) g/dL Hct (37-47) % Plt Count (130-400) K/uL INR 2.8 H (0.9-1.1) Lactate 2.8 H* (0.4-2.0) mmol/L BMP 05/26/20 05/26/20 14:20 18:17 Sodium 129 L 131 L Potassium 3.8 3.3 L Chloride 97 L 100 Carbon Dioxide 23 23 BUN 1 L 1 L Creatinine 0.57 L 0.63 Glucose 64 L 144 H Calcium 8.5 7.7 L Cardiac Enzymes 05/26/20 Range/Units 14:20 Troponin I < 0.015 (0-0.045) ng/ml Liver Function 05/26/20 Range/Units 14:20 Total Bilirubin 16.9 H (0.2-1) mg/dl Direct Bilirubin 13.9 H (0-0.2) mg/dl AST 160 H (15-37) U/L ALT 57 (12-78) U/L Alkaline Phosphatase 362 H (45-117) U/L Albumin 1.9 L (3.4-5.0) gm/dl Diagnostic Findings CXR: IMPRESSION: No acute process. Venous Doppler: IMPRESSION: No DVT within the right or left lower extremity. CT A/P: IMPRESSION: 1. Severe hepatomegaly with severe steatosis. This has progressed. 2. Small amount of ascites and moderate body wall edema. 3. Mild gallbladder wall thickening with associated pericholecystic fluid. This is likely due to the underlying hepatic pathology. An acute cholecystitis could also have a similar appearance in the appropriate clinical setting. 4. Left-sided nephrolithiasis. No hydronephrosis. 5. No definite bowel wall thickening or obstruction. Medications Administered Potassium Chloride (K Sal / Wtr) 10 meq in 100 mls @ 100 mls/hr IV Q1H ARMANI Stop: 05/26/20 21:29 Last Admin: 05/26/20 20:35 Dose: 100 mls/hr Documented by: [id number] Lactated Ringer's (Lr) 1,000 mls @ 125 mls/hr IV .Q8H ARMANI Stop: 06/25/20 19:29 Last Admin: 05/26/20 20:35 Dose: 125 mls/hr Documented by: [id number] Discontinued Medications Lorazepam (Ativan) 1 mg in 2 mls @ 2 mls/min IV NOW STA Stop: 05/26/20 13:39 Last Admin: 05/26/20 14:34 Dose: 2 mls/min Documented by: [id number] Multivitamins 10 ml/ Thiamine HCl 100 mg/ Folic Acid 1 mg/Sodium Chloride 1,011.2 mls @ 1,011.2 mls/hr IV .Q1H ONE Stop: 05/26/20 14:37 Last Infusion: 05/26/20 15:50 Dose: 0 mls/hr Documented by: [id number] Admin: 05/26/20 14:34 Dose: 1,011.2 mls/hr Documented by: [id number] Thiamine HCl 100 mg/ Syringe 10 mls @ 2 mls/min IV NOW STA Stop: 05/26/20 15:22 Last Admin: 05/26/20 17:03 Dose: 2 mls/min Documented by: [id number] Dextrose/Sodium Chloride (D5w And Nss) 1,000 mls @ 999 mls/hr IV .Q1H1M STA Stop: 05/26/20 16:18 Last Infusion: 05/26/20 17:39 Dose: 0 mls/hr Documented by: [id number] Admin: 05/26/20 16:44 Dose: 999 mls/hr Documented by: [id number] Phytonadione 10 mg/ Sodium (Chloride) 51 mls @ 102 mls/hr IV ONE ONE Stop: 05/26/20 16:03 Last Infusion: 05/26/20 18:08 Dose: 0 mls/hr Documented by: [id number] Admin: 05/26/20 17:38 Dose: 102 mls/hr Documented by: [id number] Potassium Phosphate 15 mmol/ (Sodium Chloride) 255 mls @ 88 mls/hr IV NOW STA Stop: 05/26/20 18:47 Last Infusion: 05/26/20 20:50 Dose: 0 mls/hr Documented by: [id number] Admin: 05/26/20 17:39 Dose: 88 mls/hr Documented by: [id number] Ceftriaxone Sodium (Rocephin) 2,000 mg in 70 mls @ 140 mls/hr IV NOW STA Stop: 05/26/20 18:07 Last Infusion: 05/26/20 19:02 Dose: 0 mls/hr Documented by: [id number] Admin: 05/26/20 18:32 Dose: 140 mls/hr Documented by: [id number] Ioversol (Ioversol 100ml) 91 ml IV ONCE ONE Stop: 05/26/20 16:28 Last Admin: 05/26/20 16:28 Dose: 91 ml Documented by: [id number] Methylprednisolone (Methylprednisolone 125 Mg/2 Ml Vial) 32 mg IV NOW STA Stop: 05/26/20 19:57 Last Admin: 05/26/20 20:31 Dose: 32 mg Documented by: [id number] ECG Rate (beats per minute): 112 Rhythm: sinus tachycardia Code Status & VTE Plan Code Status Full Code VTE Prophylaxis Plan VTE Prophylaxis will be ordered: Yes Reason for no VTE drug order: Contraindicated Supervising Physician Co-Signing Physician Notes Pt seen and examined by me, care coordinated with Rita Tuttle PA-C, pls refer to her note above for further detail. Pt is a 44-year-old female with alcohol dependence, history of alcohol withdrawal, asthma, major depressive disorder, panic disorder, history of pancreatitis, recently diagnosed T1DM who presents to ED secondary to increased LEs swelling and jaundice x2 weeks. Unfortunately she continues to drink alcohol, last drink at approximately 9 AM today. She noticed worsening bloating and abdominal distention over the past 4 days. Last evening she had difficulty sleeping secondary to significant pain in her lower extremities specifically in her proximal thighs. She says this is improved. Currently she denies any pain, but does occasionally have mild epigastric discomfort. Patient is currently lying in bed, in no acute distress, she is jaundiced, sclera icteric, and has significant abdominal distention. Lower extremity edema about 1+ b/l. She is alert and oriented answering questions appropriately, not requiring any oxygen. Heart sounds regular, lung sounds diminished, mild rhonchi bibasilarly. No wheezing. Unable to take very deep breaths, likely secondary to significant abdominal distention. Patient is able to move all 4 extremities spontaneously. Skin is warm and dry. No rashes noted. In the ED, her blood work is significant for total bili of 16.9, direct bili is 13.9, INR 2.9, AST 160, ALT 57. This is all consistent with acute alcoholic hepatitis. Patient has history of chronic liver disease secondary to alcohol use. Meld score significantly elevated at 32, Maddrey score also significantly elevated (poor prognostic factor), requiring initiation of steroids. Initially there was concern for SBP given her significant abdominal distention, however patient only has a trace ascites, and therefore paracentesis was not done. ED provider discussed in detail with Dr. Harris, GI physician on-call, at that time Rocephin was started empirically for SBP, for now we'll continue. Patient doesn't have significant abdominal pain on physical exam. Given elevated Maddrey score, Solu-Medrol 32 mg IV started, will continue daily. Lactic acid was elevated, will continue to monitor after IV fluids given. Will need to be careful with IV fluids given edema and small ascites. INR elevated, which is another poor prognostic factor, after discussion with GI, given that INR decreased/stable, recommended admission however there was conversation of possible transfer if INR would be elevated after recheck. This was discussed in detail with patient who is aware. We will continue to closely monitor vital signs and blood work. Will further discuss with GI tomorrow. Dominique Pettit MD (1) Asthma Asthma complication type: unspecified Asthma persistence: unspecified Asthma severity: unspecified severity Qualified Code(s): J45.909 - Unspecified asthma, uncomplicated
[2020-05-26] MEDS ORDERED: ONDANSETRON INJ 2 MG/ML 2 ML VIAL IV PRN (23:06)
[2020-05-26] MEDS ORDERED: GABAPENTIN 1200MG ALCOHOL WITHDRAWAL LOAD PO STA (23:06)
[2020-05-26] MEDS ORDERED: LORazepam 1 MG/2 ML VIAL IV PRN (23:06)
[2020-05-26] MEDS ORDERED: GLUCOSE 10 TABS/TUBE PO PRN (23:06)
[2020-05-26] MEDS ORDERED: ALUMINUM/MAGNESIUM SUSP 30 ML UDC PO PRN (23:06)
[2020-05-26] MEDS ORDERED: POLYETHYLENE (MIRALAX) 17 GM PACK PO PRN (23:06)
[2020-05-26] MEDS ORDERED: GABAPENTIN 600 MG TAB PO ONE (23:06)
[2020-05-26] MEDS ORDERED: INSULIN HUMAN 70% NPH/30% REGULAR SC SCH (23:06)
[2020-05-26] MEDS ORDERED: DEXTROSE 50% 50 ML SYRINGE IV PRN (23:06)
[2020-05-26] MEDS ORDERED: GLUCAGON FOR INJ 1 MG VIAL SQ PRN (23:06)
[2020-05-26] MEDS ORDERED: GLUCOSE 40% GEL 15 GM TUBE PO PRN (23:06)
[2020-05-26] MEDS ORDERED: PHARMACY GLYCEMIC MGMT CONSULT PRN (23:45)
[2020-05-27] MEDS ORDERED: POTASSIUM PHOSPHATE 15 MMOL in SODIUM CHLORIDE 0.9% 250 ML IV ONE (00:15)
[2020-05-27] MEDS: INSULIN ASPART 100 UNITS/ML 3 ML PEN SC SCH ×5 (02:23→20:11)
[2020-05-27] MEDS: LORazepam 2 MG/4 ML VIAL IV PRN (04:00)
[2020-05-27 04:22] LABS: Basophils # (auto) 0.01 K/uL (0-0.2); Basophils % (auto) 0.2 %; Eosinophils # (auto) 0.01 K/uL (0-0.5); Eosinophils % (auto) 0.2 %; Hematocrit (blood only) 30.7 % (37-47); Hemoglobin 10.1 g/dL (12.0-16.0); Immature Granulocytes # (auto) 0.05 K/uL (0.00-0.02); Immature Granulocytes % (auto) 0.8 %; Lymphocytes # (auto) 0.43 K/uL (1.2-3.4); Mean Corpuscular Hemoglobin 35.6 pg (25-34); Mean Corpuscular Hgb Conc 32.9 g/dL (32-36); Mean Corpuscular Volume 108.1 fL (80-100); Mean Platelet Volume 9.9 fL (7.4-10.4); Monocytes # (auto) 0.29 K/uL (0.11-0.59); Monocytes % (auto) 4.7 %; Neutrophils # (auto) 5.32 K/uL (1.4-6.5); Neutrophils % (auto) 87.1 %; Platelet Count 154 K/uL (130-400); RDW Coefficient of Variation 17.3 % (11.5-14.5); RDW Standard Deviation 68.2 fL (36.4-46.3); Red Blood Count 2.84 M/uL (4.2-5.4); White Blood Count 6.11 K/uL (4.8-10.8)
[2020-05-27 04:30] LABS: Prothrombin Time 20.3 Seconds (9.0-12.0)
--- NOTE | 2020-05-27 04:41 | Pharmacy Report ---
Pharmacy Glycemic Short Note 2 - Date of Service May 27, 2020 - Glycemic Short BSG Results (Last 24 hours): 05/26/20 05/26/20 05/26/20 14:20 18:17 18:19 Glucose 64 L 144 H POC Glucose 157 H 05/26/20 05/27/20 23:33 01:52 Glucose POC Glucose 75 140 H OUTPATIENT ANTIDIABETIC REGIMEN: * Novolin 70/30 20 units qAM, 10 units qPM * HbA1c: 5.8% (02/28/20) -- updated A1c pending 05/27 ASSESSMENT: * Ms Avelar is a 44yo Type 1 diabetic, diagnosed 02/2020. * She is ordered a clear liquid diet. * Pt is also ordered IV SoluMedrol daily, which is expected to contribute to steroid-induced hyperglycemia. PLAN FOR INPATIENT GLYCEMIC CONTROL: * Hold outpatient oral diabetes medications * Basal insulin * NPH 10 units SQ BID * Bolus insulin * NovoLog per scale ACHS or Q6hrs while NPO * Goal Range: Low 120 mg/dL - High 160 mg/dL * Correction Factor: 30 mg/dL/unit * Nutritional / Prandial insulin per carb ratio of 1 unit per 10 grams CHO c onsumed PLAN FOR DISCHARGE: * pending updated A1c
[2020-05-27] MEDS: GABAPENTIN 600 MG TAB PO SCH ×3 (04:44→22:27)
[2020-05-27 04:45] LABS: Alanine Aminotransferase 45 U/L (12-78); Albumin Globulin Ratio 0.4 (0.9-2); Albumin Level 1.5 gm/dl (3.4-5.0); Alkaline Phosphatase 279 U/L (45-117); Aspartate Aminotransferase 135 U/L (15-37); Bilirubin,Total 15.3 mg/dl (0.2-1); Blood Urea Nitrogen < 1 mg/dl (7-18); Calcium 7.8 mg/dl (8.5-10.1); Carbon Dioxide 22 mmol/L (21-32); Chloride 103 mmol/L (98-107); Creatinine Clr Calc Pharmacy 124.5 ml/min; Est GFR (African American) 129.9; Est GFR (Non-African American) 112.1; Globulin 3.4 gm/dl (2.5-4.0); Glucose 139 mg/dl (70-99); Magnesium 2.2 mg/dl (1.8-2.4); Phosphorus 2.4 mg/dl (2.5-4.9); Potassium 4.6 mmol/L (3.5-5.1); Sodium 133 mmol/L (136-145); Total Protein 4.9 gm/dl (6.4-8.2)
[2020-05-27] MEDS ORDERED: INSULIN HUMAN NPH SC SCH (08:00)
[2020-05-27] MEDS: methylPREDNISolone 32 MG in SYRINGE 0 ML IV SCH (09:00)
[2020-05-27] MEDS: MAGNESIUM CHLORIDE 64MG DELAYED REL TAB PO SCH ×2 (09:00→20:13)
[2020-05-27] MEDS: PANTOprazole 40 MG TAB PO SCH (09:00)
[2020-05-27] MEDS: FLUTICASONE/VILANTEROL 200/25MCG 14 PUFFS/INHALER INH SCH (09:00)
[2020-05-27] MEDS: MULTIVITAMIN TAB PO SCH (09:00)
[2020-05-27] MEDS: INSULIN HUMAN NPH SC SCH ×2 (09:00→17:00)
[2020-05-27] MEDS: FOLIC ACID 1 MG TAB PO SCH (09:00)
[2020-05-27] MEDS: cefTRIAXone SODIUM 2,000 MG in DEXTROSE 5% 50 ML IV SCH (09:00)
[2020-05-27] MEDS: THIAMINE HCL 100 MG TAB PO SCH (09:00)
[2020-05-27] MEDS: POTASSIUM CHLORIDE 10 MEQ TABCR PO SCH ×2 (09:00→20:12)
[2020-05-27] MEDS ORDERED: LORazepam 3 MG/6 ML VIAL IV PRN (19:11)
[2020-05-27] MEDS ORDERED: ATIVAN IV ALCOHOL WITHDRAWL IV PRN (19:11)
[2020-05-27 19:25] LABS: Appearance Urine Cloudy (Clear); Color Urine Dark Yellow
[2020-05-27 19:26] LABS: Glucose Urine UA Negative (Negative); Ictotest Urine Positive (Negative); Ketones Urine Trace (Negative); Protein Urine Trace (Negative)
[2020-05-27 19:27] LABS: Bilirubin Urine 3+ (Negative); Blood Urine Negative (Negative); Leukocyte Esterase Urine Trace (Negative); Nitrite Urine Positive (Negative); Urobilinogen Urine Negative (Negative)
[2020-05-27 19:29] LABS: Bacteria Urine Negative (Negative); Epithelial Cell Urine >30 /lpf (0-5); RBC Urine 0-4 /hpf (0-4); WBC Urine 0-5 /hpf (0-5)
[2020-05-28] MEDS: LORazepam 1 MG/2 ML VIAL IV PRN ×2 (02:30→17:11)
[2020-05-28] MEDS: GABAPENTIN 600 MG TAB PO SCH ×3 (05:28→23:41)
[2020-05-28 05:30] LABS: Basophils # (auto) 0.01 K/uL (0-0.2); Basophils % (auto) 0.1 %; Hemoglobin 10.9 g/dL (12.0-16.0); Immature Granulocytes # (auto) 0.05 K/uL (0.00-0.02); Immature Granulocytes % (auto) 0.5 %; Lymphocytes # (auto) 0.66 K/uL (1.2-3.4); Lymphocytes % (auto) 7.2 %; Mean Corpuscular Volume 108.9 fL (80-100); Mean Platelet Volume 10.3 fL (7.4-10.4); Monocytes # (auto) 0.78 K/uL (0.11-0.59); Monocytes % (auto) 8.5 %; Neutrophils # (auto) 7.64 K/uL (1.4-6.5); Neutrophils % (auto) 83.7 %; Platelet Count 188 K/uL (130-400); RDW Coefficient of Variation 17.2 % (11.5-14.5); RDW Standard Deviation 68.8 fL (36.4-46.3); Red Blood Count 3.03 M/uL (4.2-5.4); White Blood Count 9.14 K/uL (4.8-10.8)
[2020-05-28 05:45] LABS: INR 1.7 (0.9-1.1); Prothrombin Time 17.5 Seconds (9.0-12.0)
[2020-05-28 06:15] LABS: Albumin Globulin Ratio 0.4 (0.9-2); Albumin Level 1.6 gm/dl (3.4-5.0); BUN Creatinine Ratio 2.3 (10-20); Bilirubin,Total 16.5 mg/dl (0.2-1); Calcium 8.3 mg/dl (8.5-10.1); Creatinine Clr Calc Pharmacy 102.9 ml/min; Est GFR (African American) 120.1; Est GFR (Non-African American) 103.6; Globulin 3.7 gm/dl (2.5-4.0); Potassium 4.2 mmol/L (3.5-5.1); Total Protein 5.3 gm/dl (6.4-8.2)
[2020-05-28 06:25] LABS: Estimated Average Glucose 94 mg/dl; Hemoglobin A1C 4.9 % (4.5-5.6)
[2020-05-28] MEDS: INSULIN ASPART 100 UNITS/ML 3 ML PEN SC SCH ×4 (08:08→20:19)
[2020-05-28] MEDS: INSULIN HUMAN NPH SC SCH ×2 (08:12→17:04)
[2020-05-28] MEDS: FLUTICASONE/VILANTEROL 200/25MCG 14 PUFFS/INHALER INH SCH (08:14)
[2020-05-28] MEDS: MAGNESIUM CHLORIDE 64MG DELAYED REL TAB PO SCH ×2 (08:16→20:09)
[2020-05-28] MEDS: POTASSIUM CHLORIDE 10 MEQ TABCR PO SCH ×2 (08:16→20:10)
[2020-05-28] MEDS: PANTOprazole 40 MG TAB PO SCH (08:16)
[2020-05-28] MEDS: methylPREDNISolone 32 MG in SYRINGE 0 ML IV SCH (08:16)
[2020-05-28] MEDS: FOLIC ACID 1 MG TAB PO SCH (08:16)
[2020-05-28] MEDS: MULTIVITAMIN TAB PO SCH (08:16)
[2020-05-28] MEDS: THIAMINE HCL 100 MG TAB PO SCH (08:17)
[2020-05-28] MEDS: cefTRIAXone SODIUM 2,000 MG in DEXTROSE 5% 50 ML IV SCH (08:26)
--- NOTE | 2020-05-28 09:52 | Pharmacy Report ---
Pharmacy Glycemic Short Note 2 - Date of Service May 28, 2020 - Glycemic Short BSG Results (Last 24 hours): 05/27/20 05/27/20 05/27/20 10:45 16:33 20:05 Glucose POC Glucose 180 H 201 H 151 H 05/28/20 05/28/20 04:54 07:22 Glucose 140 H POC Glucose 100 H OUTPATIENT ANTIDIABETIC REGIMEN: * Novolin 70/30 20 units qAM, 10 units qPM * HbA1c: 4.9% (05/27/20) ASSESSMENT: 05/28/20: * BSGs yesterday of 144, 180, 201, and 151 mg/dL * Received 20 units of NPH and 25 units of prandial/correctional Novolog * Continues on Solu-medrol 32 mg IV daily * Will increase AM dose of NPH to correlate with outpatient regimen and IV steroids in AM * Continues on empiric ceftriaxone for possible SBP 05/27/20: * Ms Avelar is a 44yo Type 1 diabetic, diagnosed 02/2020. * She is ordered a clear liquid diet. * Pt is also ordered IV SoluMedrol daily, which is expected to contribute to steroid-induced hyperglycemia. PLAN FOR INPATIENT GLYCEMIC CONTROL: * Hold outpatient oral diabetes medications * Basal insulin * NPH 13 units SC qAM * NPH 5-7 units SC qPM (see EHR for details) * Bolus insulin - continue * NovoLog per scale ACHS or Q6hrs while NPO * Goal Range: Low 120 mg/dL - High 160 mg/dL * Correction Factor: 30 mg/dL/unit * Nutritional / Prandial insulin per carb ratio of 1 unit per 10 grams CHO consumed PLAN FOR DISCHARGE: * HbA1c of 4.9% suggests very good outpatient glycemic control * BSG at time of presentation on 05/26 was 64 mg/dL * May require dose reduction of home regimen if patient is experiencing hypoglycemia regularly * Will follow inpatient insulin needs and make recommendations accordingly
[2020-05-28] MEDS ORDERED: INSULIN HUMAN NPH SC SCH (17:00)
--- NOTE | 2020-05-28 19:06 | Hospitalist Progress Note ---
Date of Service May 28, 2020 Assessment & Plan (1) Acute alcoholic hepatitis: Improved Maddrey's score with steroids. GI following and agrees with continuing steroids and supportive care. Discussed use of Lasix/albumin, but this will not necessarily be beneficial for her at this time. She needs time. Jaundice persists with hyperbilirubinemia. No further vitamin K has been given. Cont to trend PT/INR, CMP and CBC in am. (2) Acute liver failure: plan as above. (3) Alcohol withdrawal: Prior history of withdrawal, current withdrawal symptoms are mild. Mentating clearly. Daily alcohol use, 4 glasses of wine daily AWSS protocol Gabapentin taper, as needed Ativan Daily thiamine and folic acid Received banana bag in ED Strongly consider inpatient rehabilitation program upon dc. (4) Alcohol abuse: plan as above. (5) Diabetes mellitus type 1: Recently diagnosed 02/2020 secondary to DKA and prior diagnosis of acute pancreatitis Last A1c 5.8, 02/2020, repeat is 4.9 Continue NPH and NovoLog PRN per glycemic pharmacist. Current numbers are well controlled. (6) Hypoalbuminemia: In setting of malnutrition and alcohol abuse. Discussed Lasix/albumin with GI physician over the weekend which will not be helpful in the absence of SBP or paracentesis. For now, cont steroid treatment and sodium restricted diet with 1.5L fluid restriction. Dietitian consulted (7) Asthma: chronic, stable. No acute exacerbation. Continue Advair, as needed albuterol (8) DVT prophylaxis: SCDS/TEDS, autoanticoagulated Full Code Dispo-cont PCU monitoring. [facility] Ad[facility] and Anticipated Discharge Date Admission Date: May 26, 2020 Subjective CC: Alcoholic hepatitis, alcohol withdrawal -Denies abdominal pain, some persistent abdominal distention Tolerating p.o. -Reports feeling edema is improving in her legs and abdomen -Denies chest pain -Limited withdrawal symptoms present Review of Systems Review of Systems: All systems reviewed & are unremarkable except as noted in Subjective Physical Exam Physical Exam: CONSTITUTIONAL: WNWD, vitals as above, generally well- appearing EYES: normal conjunctivae, +scleral icterus ENT: external ear and nose normal, oropharynx clear, MMM RESPIRATORY: clear to auscultation bilaterally, no crackles, rales or wheezes, normal respiratory effort CARDIOVASCULAR: regular rate and rhythm, S1 and 2 heard without murmurs, gallops or rubs, no JVD, 3+ peripheral edema in lower extremities to her thighs bilaterally GASTROINTESTINAL: distended abdomen, moreso distended today than yesterday, protuberant, nontender, no fluid wave, no guarding MUSCULOSKELETAL: strength 5/5 throughout, head is normocephalic and atraumatic SKIN: warm and dry, +jaundice NEUROLOGIC: No facial palsy, no dysarthria. CN 2-12 grossly intact, no sensory deficit, normal cognition, normal speech, no tremor PSYCHIATRIC: alert cooperative and oriented to person, place and time. Some somnolence after reportedly being given some medication but still able to answer questions appropriately. Results & Data Results & Data ([facility]) Vital Signs (Past 12 Hours) Vital Signs Temp Pulse Resp BP Pulse Ox 05/28/20 18:00 92 H 18 97 05/28/20 17:09 91 H 19 97/75 L 93 05/28/20 16:00 36.7 C 85 30 H 91 05/28/20 14:47 36.7 C 95 H 18 97/68 L 95 05/28/20 14:35 96 H 17 97/68 L 05/28/20 14:00 94 H 18 05/28/20 12:00 36.4 C L 113 H 19 102/84 96 05/28/20 11:29 99 H 18 102/84 05/28/20 10:00 103 H 25 H 05/28/20 08:25 103 H 25 H 05/28/20 07:30 36.3 C L 05/28/20 07:23 90 21 103/75 98 Laboratory Results Short CBC 05/28/20 Range/Units 04:54 WBC 9.14 (4.8-10.8) K/uL Hgb 10.9 L (12.0-16.0) g/dL Hct 33.0 L (37-47) % Plt Count 188 (130-400) K/uL BMP 05/28/20 04:54 Sodium 135 L Potassium 4.2 Chloride 104 Carbon Dioxide 22 BUN 2 L Creatinine 0.71 Glucose 140 H Calcium 8.3 L Liver Function 05/28/20 Range/Units 04:54 Total Bilirubin 16.5 H (0.2-1) mg/dl AST 129 H (15-37) U/L ALT 47 (12-78) U/L Alkaline Phosphatase 297 H (45-117) U/L Albumin 1.6 L (3.4-5.0) gm/dl Urine 05/27/20 Range/Units 11:20 Urine Color Dark Yellow Urine Appearance Cloudy A (Clear) Urine pH 6.0 (4.5-7.5) Ur Specific Whigham 1.030 (1.000-1.030) Urine Protein Trace H (Negative) Urine Glucose (UA) Negative (Negative) Medications Administered Current Inpatient Medications Al Hydrox/Mg Hydrox/Simethicone (Aluminum/Magnesium Susp 30 Ml Udc) 15 ml PO Q4H PRN PRN Reason: Dyspepsia Stop: 06/25/20 23:05 Albuterol (Albuterol Hfa 8 Gm Inhaler) 2 puffs INH Q6H PRN PRN Reason: Shortness Of Breath Stop: 06/25/20 23:05 Dextrose (Dextrose 50% 50 Ml Syringe) 25 - 50 ml IV UD PRN; Protocol PRN Reason: Hypoglycemia Protocol Stop: 06/25/20 23:05 Fluticasone/Vilanterol (Fluticasone/Vilanterol 200/25mcg 14 Puffs/Inhaler) 1 puffs INH DAILY ARMANI Stop: 06/26/20 08:59 Last Admin: 05/28/20 08:14 Dose: 1 puffs Documented by: Folic Acid (Folic Acid 1 Mg Tab) 1 mg PO QAM ARMANI Stop: 06/26/20 08:59 Last Admin: 05/28/20 08:16 Dose: 1 mg Documented by: Gabapentin (Gabapentin 600 Mg Tab) 600 mg PO Q12H ARMANI Stop: 05/29/20 12:01 Gabapentin (Gabapentin 600 Mg Tab) 600 mg PO Q24H ARMANI Stop: 05/30/20 12:01 Glucagon (Glucagon For Inj 1 Mg Vial) 1 mg SQ UD PRN; Protocol PRN Reason: Hypoglycemia Protocol Stop: 06/25/20 23:05 Glucose (Glucose 10 Tabs/Tube) 4 - 8 tabs PO UD PRN; Protocol PRN Reason: Hypoglycemia Protocol Stop: 06/25/20 23:05 Glucose (Glucose 40% Gel 15 Gm Tube) 15 - 30 gm PO UD PRN; Protocol PRN Reason: Hypoglycemia Protocol Stop: 06/25/20 23:05 Ceftriaxone Sodium 2,000 mg/ (Dextrose) 70 mls @ 100 mls/hr IV Q24H ARMANI; Protocol Stop: 06/06/20 08:59 Last Infusion: 05/28/20 09:15 Dose: Infused Documented by: Methylprednisolone 32 mg/ (Syringe) 0.512 mls @ 1.5 mls/min IV DAILY ARMANI Stop: 06/26/20 08:59 Last Admin: 05/28/20 08:16 Dose: 1.5 mls/min Documented by: Lorazepam (Ativan) 1 mg in 2 mls @ 2 mls/min IV UD PRN; Protocol PRN Reason: EtOH Withdrawl AWSS Score 6,7 Stop: 06/26/20 19:10 Last Admin: 05/28/20 17:11 Dose: 2 mls/min Documented by: Lorazepam (Ativan) 2 mg in 4 mls @ 4 mls/min IV UD PRN; Protocol PRN Reason: EtOH Withdrawl AWSS Score 8,9 Stop: 06/26/20 19:10 Last Admin: 05/27/20 04:00 Dose: 4 mls/min Documented by: Lorazepam (Ativan) 3 mg in 6 mls @ 4 mls/min IV ONCE PRN; Protocol PRN Reason: EtOH Withdrawl AWSS Score >=10 Stop: 06/26/20 19:10 Insulin Aspart (Insulin Aspart 100 Units/Ml 3 Ml Pen) [address] [facility]; Protocol Stop: 06/26/20 01:59 Last Admin: 05/28/20 17:02 Dose: 2 units Documented by: Insulin Human NPH (Insulin Human Nph) 13 units SC DAILY@0800 ARMANI; Protocol Stop: 06/26/20 07:59 Last Admin: 05/28/20 08:12 Dose: 13 units Documented by: Insulin Human NPH (Insulin Human Nph) 0 units SC DAILY@1700 ARMANI; Protocol Stop: 06/27/20 16:59 Last Admin: 05/28/20 17:04 Dose: 7 units Documented by: Magnesium Chloride (Magnesium Chloride 64mg Delayed Rel Tab) 64 mg PO BID ARMANI Stop: 06/26/20 08:59 Last Admin: 05/28/20 08:16 Dose: 64 mg Documented by: Miscellaneous (Carbohydrates For Hypoglycemia ) 15 - 30 gm PO UD PRN PRN Reason: Hypoglycemia Protocol Stop: 06/25/20 23:05 Miscellaneous Information (Pharmacy Glycemic Mgmt Consult) 1 ea N/A UD PRN; Protocol PRN Reason: Consult Stop: 06/25/20 23:44 Multivitamins (Multivitamin Tab) [address] [facility] Stop: 06/26/20 08:59 Last Admin: 05/28/20 08:16 Dose: 1 tab Documented by: Ondansetron HCl (Ondansetron Inj 2 Mg/Ml 2 Ml Vial) 4 mg IV Q6H PRN PRN Reason: Nausea Stop: 06/25/20 23:05 Pantoprazole Sodium (Pantoprazole 40 Mg Tab) [address] [facility] Stop: 06/26/20 08:59 Last Admin: 05/28/20 08:16 Dose: 40 mg Documented by: Polyethylene Glycol (Polyethylene (Miralax) 17 Gm Pack) 17 gm PO DAILY PRN PRN Reason: Constipation Stop: 06/25/20 23:05 Potassium Chloride (Potassium Chloride 10 Meq Tabcr) [address] [facility] Stop: 06/26/20 08:59 Last Admin: 05/28/20 08:16 Dose: 10 meq Documented by: Thiamine HCl (Thiamine Hcl 100 Mg Tab) [address] [facility] Stop: 06/26/20 08:59 Last Admin: 05/28/20 08:17 Dose: 100 mg Documented by: (1) Asthma Asthma complication type: unspecified Asthma persistence: unspecified Asthma severity: unspecified severity Qualified Code(s): J45.909 - Unspecified asthma, uncomplicated
--- NOTE | 2020-05-28 21:38 | Consultation Report ---
DATE OF CONSULTATION: 05/28/2020 GASTROENTEROLOGY CONSULT NOTE REASON FOR CONSULTATION: I was asked by Dr. Pastor to consult on this woman for evaluation of alcoholic hepatitis. HISTORY OF PRESENT ILLNESS: The patient is a 44-year-old who has a long history of alcohol abuse and alcoholism and multiple admissions for alcohol withdrawal and acute pancreatitis. In fact, she has developed type 1 diabetes because of pancreatic insufficiency related to multiple bouts of acute pancreatitis. She presented to this institution with severe weakness and severe jaundice. She had an evaluation including CAT scan which showed small amount of ascites. Since admission, she has been put on IV steroids because of a high discriminant function. Currently, she is lying in bed, appears shaky, but comfortable, is alert, oriented and conversant. Her biggest complaint is "feeling very weak." PAST MEDICAL HISTORY: Reviewed her medical records and her past medical history and her past medical history is significant for alcohol abuse, type 1 diabetes, asthma. ALLERGIES: SHE IS ALLERGIC TO THEOPHYLLINE. HOME MEDICATIONS: Include numerous vitamins, pantoprazole, insulin, magnesium chloride and inhalers p.r.n. FAMILY HISTORY: Negative for gastrointestinal disease. SOCIAL HISTORY: Significant for being a former smoker and ongoing alcohol abuse. REVIEW OF SYSTEMS: As above, otherwise she denies any recent seizures. She has had no joint swelling. She has had significant scleral and peripheral jaundice and icterus. She denies significant pruritus. She denies any GI bleeding. She has had no productive cough. She denies any exertional chest pain. She has had no alopecia. She denies any dysuria. PHYSICAL EXAMINATION: GENERAL: Shows a woman, extremely jaundiced, sitting up in bed. VITAL SIGNS: Most recent vitals show blood pressure 109/71, pulse is 95, temperature is 36.3. SKIN: Extremely icteric. EYES: Show icteric sclerae. MOUTH: Is dry, but clear of lesions. She has numerous spider angioma over her face and anterior chest. Neck: Supple with no adenopathy. CHEST: Clear. HEART: Regular. ABDOMEN: Slightly distended but soft. There are no obvious masses or rebound tenderness. There are good bowel sounds. EXTREMITIES: Warm with fair distal pulses. NEUROLOGIC: She is alert and oriented x3. She does have a palmar flap. She moves all 4 extremities. LABORATORY DATA: Show a hemoglobin that has been stable at 10.9, platelet count of 188,000. INR is 1.7, down from 2 yesterday. Bilirubin is 16.5 with an AST 129, ALT of 47, alkaline phosphatase of 297, total protein of 5.3, albumin 1.6, glucose is 140. An imaging from admission 05/26/2020 showed severe hepatomegaly and severe steatosis. There was a small amount of ascites and moderate body wall edema, but no other significant pathology noted. IMPRESSION: Alcoholic hepatitis with evidence of chronic liver disease. I do agree with steroids to be used given the elevated discriminant function. Continue to watch and treat for signs of alcohol withdrawal. Follow her hepatic function numbers such as INR, glucose and mental function. If any of these decompensates, she would benefit from transfer to a tertiary center. In 1 week a reevaluation for the benefit of remaining on steroids can be done using a Lille score calculator and a score greater than 0.45 suggest nonresponsive glucose and at that point, they could be tapered off. If she has a response, then steroids should be continued for 28 days. It is clear that abstinence from alcohol is the mainstay of treatment of this patient. I recommend a PPI as well.
[2020-05-28 23:07] LABS: Appearance Urine Clear (Clear); Blood Urine Negative (Negative); Color Urine Dark Yellow; Glucose Urine UA Negative (Negative); Ketones Urine Negative (Negative); Leukocyte Esterase Urine Negative (Negative); Nitrite Urine Negative (Negative); Protein Urine Negative (Negative); Specific Gravity Urine 1.007 (1.000-1.030); Urobilinogen Urine Negative (Negative); pH Urine 6.5 (4.5-7.5)
[2020-05-28 23:10] LABS: Bilirubin Urine 3+ (Negative); Ictotest Urine Positive (Negative)
[2020-05-29] MEDS: INSULIN ASPART 100 UNITS/ML 3 ML PEN SC SCH ×4 (07:38→20:23)
[2020-05-29] MEDS: FLUTICASONE/VILANTEROL 200/25MCG 14 PUFFS/INHALER INH SCH (07:43)
[2020-05-29] MEDS: INSULIN HUMAN NPH SC SCH ×2 (07:43→17:16)
[2020-05-29] MEDS: THIAMINE HCL 100 MG TAB PO SCH (08:07)
[2020-05-29] MEDS: MULTIVITAMIN TAB PO SCH (08:07)
[2020-05-29] MEDS: FOLIC ACID 1 MG TAB PO SCH (08:07)
[2020-05-29] MEDS: PANTOprazole 40 MG TAB PO SCH (08:07)
[2020-05-29] MEDS: methylPREDNISolone 32 MG in SYRINGE 0 ML IV SCH (08:07)
[2020-05-29] MEDS: MAGNESIUM CHLORIDE 64MG DELAYED REL TAB PO SCH ×2 (08:07→20:22)
[2020-05-29] MEDS: POTASSIUM CHLORIDE 10 MEQ TABCR PO SCH (08:08)
[2020-05-29] MEDS: cefTRIAXone SODIUM 2,000 MG in DEXTROSE 5% 50 ML IV SCH (08:10)
--- NOTE | 2020-05-29 10:45 | Gastroenterology Progress Note ---
Date of Service May 29, 2020 Assessment & Plan (1) Acute alcoholic hepatitis: Pt is a 44 y/o female w ongoing ETOH abuse, seen for ETOH hepatitis. Maddrey Discriminant Function score: 42 MELD: 24 - IVF support - Prednisolone 40mg daily - Check Lille score 1 week into steroid therapy if pt would benefit continuation or not - Protonix 40mg daily - Check limited abd u/s to r/o progressive ascites accumulation - Monitor daily mentation, renal function, coag function. If acute decline in mentation, consider transfer to tertiary care center where liver transplant support is present - ETOH withdrawal protocol - Strick ETOH cessation advised. Consider inpt rehab after medically stable Admission and Anticipated Discharge Date Admission Date: May 26, 2020 Supervising Physician Co-Signing Physician Notes I saw and evaluated the patient. She suffers from recurrent acute alcoholic hepatitis with a significant elevation of her discriminant function index. As such we have recommended that she be started on prednisolone for the near term. The patient will need to consider alcohol abstinence as she begins to drink again and she may for deadly consequences from her alcohol abuse. Subjective Pt reports abd feels tight, distended. She denies pain, n/v. Passing flatus. Is teary when talking about considering rehab for her anxiety and ongoing ETOH uses Review of Systems Review of Systems: All systems reviewed & are unremarkable except as noted in HPI & below Physical Exam Constitutional: + ill appearing, well groomed, cooperative and comfortable Eyes: + scleral abnormality (icteric sclera), PERRL and EOM intact bilaterally ENMT: external ear and nose normal, oropharynx normal Respiratory: normal respiratory effort, lungs clear to auscultation Cardiovascular: RRR, no murmur, no edema Gastrointestinal (Abdomen): Inspection/Auscultation: + abdomen distended and + hypoactive bowel sounds Percussion/Palpation: abdomen nontender Skin: no rashes, warm and dry + jaundice Neurologic: Motor/Sensory: + asterixis Psychiatric: A+Ox3, euthymic affect Lymphatic: no lymphedema Results & Data ([facility]) Vital Signs (Past 12 Hours) Vital Signs Temp Pulse Pulse Resp BP BP Pulse Ox 05/29/20 02:31 36.6 C 92 H 18 119/75 92 05/29/20 00:00 83 05/28/20 23:34 36.3 C L 84 17 106/71 96
--- NOTE | 2020-05-29 12:03 | Pharmacy Report ---
Pharmacy Glycemic Short Note 2 - Date of Service May 29, 2020 - Glycemic Short BSG Results (Last 24 hours): 05/27/20 05/28/20 05/28/20 07:14 16:34 20:14 POC Glucose 144 H 125 H 167 H 05/29/20 05/29/20 07:28 11:42 POC Glucose 100 H 121 H OUTPATIENT ANTIDIABETIC REGIMEN: * Novolin 70/30 20 units qAM, 10 units qPM * HbA1c: 4.9% (05/27/20) ASSESSMENT: 05/29/20 * BSGs well controlled over last 24 hrs * Fasting BSG 100 this AM after receiving NPH 13 units w/ breakfast + 7 units w/ dinner * Post-prandial BSGs well controlled w/ current regimen * Received Solu-medrol 32mg IV this AM - will transition to Prednisolone 40mg PO daily tomorrow (equivalent dose) * Will continue same insulin doses for next 24 hrs 05/28/20: * BSGs yesterday of 144, 180, 201, and 151 mg/dL * Received 20 units of NPH and 25 units of prandial/correctional Novolog * Continues on Solu-medrol 32 mg IV daily * Will increase AM dose of NPH to correlate with outpatient regimen and IV steroids in AM * Continues on empiric ceftriaxone for possible SBP 05/27/20: * Ms Avelar is a 44yo Type 1 diabetic, diagnosed 02/2020. * She is ordered a clear liquid diet. * Pt is also ordered IV SoluMedrol daily, which is expected to contribute to steroid-induced hyperglycemia. PLAN FOR INPATIENT GLYCEMIC CONTROL: * Basal insulin - continue * NPH 13 units SC w/ breakfast * NPH 5-7 units SC w/ dinner (see EHR for details) * Bolus insulin - continue * NovoLog per scale ACHS or Q6hrs while NPO * Goal Range: Low 120 mg/dL - High 160 mg/dL * Correction Factor: 30 mg/dL/unit * Nutritional / Prandial insulin per carb ratio of 1 unit per 10 grams CHO consumed PLAN FOR DISCHARGE: * HbA1c of 4.9% suggests very good outpatient glycemic control * BSG at time of presentation on 05/26 was 64 mg/dL * May require dose reduction of home regimen if patient is experiencing hypoglycemia regularly * Will follow inpatient insulin needs and make recommendations accordingly
[2020-05-29 12:14] LABS: INR 1.9 (0.9-1.1); Prothrombin Time 19.5 Seconds (9.0-12.0)
[2020-05-29 12:41] LABS: Alanine Aminotransferase 51 U/L (12-78); Albumin Level 1.9 gm/dl (3.4-5.0); Alkaline Phosphatase 316 U/L (45-117); Aspartate Aminotransferase 134 U/L (15-37); Bilirubin,Total 19.4 mg/dl (0.2-1); Blood Urea Nitrogen 3 mg/dl (7-18); Calcium 9.3 mg/dl (8.5-10.1); Carbon Dioxide 23 mmol/L (21-32); Chloride 104 mmol/L (98-107); Glucose 105 mg/dl (70-99); Potassium 4.7 mmol/L (3.5-5.1); Sodium 134 mmol/L (136-145)
[2020-05-29] MEDS: GABAPENTIN 600 MG TAB PO SCH (13:16)
--- NOTE | 2020-05-29 14:02 | Hospitalist Progress Note ---
Date of Service May 29, 2020 Assessment & Plan (1) Acute alcoholic hepatitis: Improved Maddrey's score with steroids. GI following and agrees with continuing steroids and supportive care. Discussed use of Lasix/albumin, but this will not necessarily be beneficial for her at this time. She needs time and clinically is improving. Jaundice persists with hyperbilirubinemia and bili increased today slightly from 16.5 to 19.4.. No further vitamin K has been given and she remains coagulopathic and without overt bleeding. Cont to trend PT/INR, CMP and CBC in am. Ceftriaxone for empiric treatment of SBP. (2) Acute liver failure: plan as above. (3) Coagulopathy: 2/2 liver failure (4) Alcohol withdrawal: Prior history of withdrawal, current withdrawal symptoms are mild. Mentating clearly. Daily alcohol use, 4 glasses of wine daily AWSS protocol Gabapentin taper, as needed Ativan Daily thiamine and folic acid Received banana bag in ED Strongly consider inpatient rehabilitation program upon dc. (5) Alcohol abuse: plan as above. (6) Diabetes mellitus type 1: Recently diagnosed 02/2020 secondary to DKA and prior diagnosis of acute pancreatitis Last A1c 5.8, 02/2020, repeat is 4.9 Continue NPH and NovoLog PRN per glycemic pharmacist. Current numbers are well controlled. Glycemic pharmacist adjusting insulin inputs. (7) Hypoalbuminemia: In setting of malnutrition and alcohol abuse. Discussed Lasix/albumin with GI physician over the weekend which will not be helpful in the absence of SBP or paracentesis. For now, cont steroid treatment and sodium restricted diet with 1.5L fluid restriction. Dietitian consulted (8) Asthma: chronic, stable. No acute exacerbation. Continue Advair, as needed albuterol (9) DVT prophylaxis: SCDS/TEDS, autoanticoagulated Full Code Dispo-cont PCU monitoring. Muna Pastor DO [facility] Hospitalist Admission and Anticipated Discharge Date Admission Date: May 26, 2020 Subjective CC: Alcoholic hepatitis, alcohol withdrawal Overall feeling well today vitals remaining stable she reports her abdomen feels softer having increased amounts of diarrhea Review of Systems Review of Systems: All systems reviewed & are unremarkable except as noted in Subjective Physical Exam Physical Exam: CONSTITUTIONAL: WNWD, vitals as above, generally well- appearing EYES: normal conjunctivae, +scleral icterus ENT: external ear and nose normal, oropharynx clear, MMM RESPIRATORY: clear to auscultation bilaterally, no crackles, rales or wheezes, normal respiratory effort CARDIOVASCULAR: regular rate and rhythm, S1 and 2 heard without murmurs, gallops or rubs, no JVD, 3+ peripheral edema in lower extremities to her thighs bilaterally GASTROINTESTINAL: distended abdomen, improved from yesterday, protuberant, nontender, no fluid wave, no guarding MUSCULOSKELETAL: strength 5/5 throughout, head is normocephalic and atraumatic SKIN: warm and dry, +jaundice NEUROLOGIC: No facial palsy, no dysarthria. CN 2-12 grossly intact, no sensory deficit, normal cognition, normal speech, no tremor PSYCHIATRIC: alert cooperative and oriented to person, place and time. Results & Data Results & Data ([facility]) Vital Signs (Past 12 Hours) Vital Signs Temp Pulse Pulse Resp BP BP Pulse Ox 05/29/20 11:15 36.3 C L 97 H 20 135/92 95 05/29/20 02:31 36.6 C 92 H 18 119/75 92 Laboratory Results BMP 05/29/20 11:34 Sodium 134 L Potassium 4.7 Chloride 104 Carbon Dioxide 23 BUN 3 L Creatinine Glucose 105 H Calcium 9.3 Liver Function 05/29/20 Range/Units 11:34 Total Bilirubin 19.4 H (0.2-1) mg/dl AST 134 H (15-37) U/L ALT 51 (12-78) U/L Alkaline Phosphatase 316 H (45-117) U/L Albumin 1.9 L (3.4-5.0) gm/dl Urine 05/28/20 Range/Units 22:45 Urine Color Dark Yellow Urine Appearance Clear (Clear) Urine pH 6.5 (4.5-7.5) Ur Specific [place] 1.007 (1.000-1.030) Urine Protein Negative (Negative) Urine Glucose (UA) Negative (Negative) Medications Administered Current Inpatient Medications Al Hydrox/Mg Hydrox/Simethicone (Aluminum/Magnesium Susp 30 Ml Udc) 15 ml PO Q4H PRN PRN Reason: Dyspepsia Stop: 06/25/20 23:05 Albuterol (Albuterol Hfa 8 Gm Inhaler) 2 puffs INH Q6H PRN PRN Reason: Shortness Of Breath Stop: 06/25/20 23:05 Dextrose (Dextrose 50% 50 Ml Syringe) 25 - 50 ml IV UD PRN; Protocol PRN Reason: Hypoglycemia Protocol Stop: 06/25/20 23:05 Fluticasone/Vilanterol (Fluticasone/Vilanterol 200/25mcg 14 Puffs/Inhaler) 1 puffs INH DAILY [facility] Stop: 06/26/20 08:59 Last Admin: 05/29/20 07:43 Dose: 1 puffs Documented by: Folic Acid (Folic Acid 1 Mg Tab) 1 mg PO QAM [facility] Stop: 06/26/20 08:59 Last Admin: 05/29/20 08:07 Dose: 1 mg Documented by: Gabapentin (Gabapentin 600 Mg Tab) 600 mg PO Q24H [facility] Stop: 05/30/20 12:01 Glucagon (Glucagon For Inj 1 Mg Vial) 1 mg SQ UD PRN; Protocol PRN Reason: Hypoglycemia Protocol Stop: 06/25/20 23:05 Glucose (Glucose 10 Tabs/Tube) 4 - 8 tabs PO UD PRN; Protocol PRN Reason: Hypoglycemia Protocol Stop: 06/25/20 23:05 Glucose (Glucose 40% Gel 15 Gm Tube) 15 - 30 gm PO UD PRN; Protocol PRN Reason: Hypoglycemia Protocol Stop: 06/25/20 23:05 Ceftriaxone Sodium 2,000 mg/ (Dextrose) 70 mls @ 100 mls/hr IV Q24H [facility]; Protocol Stop: 06/06/20 08:59 Last Infusion: 05/29/20 09:21 Dose: Infused Documented by: Lorazepam (Ativan) 1 mg in 2 mls @ 2 mls/min IV UD PRN; Protocol PRN Reason: EtOH Withdrawl AWSS Score 6,7 Stop: 06/26/20 19:10 Last Admin: 05/28/20 17:11 Dose: 2 mls/min Documented by: Lorazepam (Ativan) 2 mg in 4 mls @ 4 mls/min IV UD PRN; Protocol PRN Reason: EtOH Withdrawl AWSS Score 8,9 Stop: 06/26/20 19:10 Last Admin: 05/27/20 04:00 Dose: 4 mls/min Documented by: Lorazepam (Ativan) 3 mg in 6 mls @ 4 mls/min IV ONCE PRN; Protocol PRN Reason: EtOH Withdrawl AWSS Score >=10 Stop: 06/26/20 19:10 Insulin Aspart (Insulin Aspart 100 Units/Ml 3 Ml Pen) 0 units SC ACHS [facility]; Protocol Stop: 06/26/20 01:59 Last Admin: 05/29/20 13:16 Dose: Not Given Documented by: Insulin Human NPH (Insulin Human Nph) 13 units SC DAILY@0800 [facility]; Protocol Stop: 06/26/20 07:59 Last Admin: 05/29/20 07:43 Dose: 13 units Documented by: Insulin Human NPH (Insulin Human Nph) 0 units SC DAILY@1700 [facility]; Protocol Stop: 06/27/20 16:59 Last Admin: 05/28/20 17:04 Dose: 7 units Documented by: Magnesium Chloride (Magnesium Chloride 64mg Delayed Rel Tab) 64 mg PO BID [facility] Stop: 06/26/20 08:59 Last Admin: 05/29/20 08:07 Dose: 64 mg Documented by: Miscellaneous (Carbohydrates For Hypoglycemia ) 15 - 30 gm PO UD PRN PRN Reason: Hypoglycemia Protocol Stop: 06/25/20 23:05 Miscellaneous Information (Pharmacy Glycemic Mgmt Consult) 1 ea N/A UD PRN; Protocol PRN Reason: Consult Stop: 06/25/20 23:44 Multivitamins (Multivitamin Tab) 1 tab PO QAM [facility] Stop: 06/26/20 08:59 Last Admin: 05/29/20 08:07 Dose: 1 tab Documented by: Ondansetron HCl (Ondansetron Inj 2 Mg/Ml 2 Ml Vial) 4 mg IV Q6H PRN PRN Reason: Nausea Stop: 06/25/20 23:05 Pantoprazole Sodium (Pantoprazole 40 Mg Tab) 40 mg PO QAM [facility] Stop: 06/26/20 08:59 Last Admin: 05/29/20 08:07 Dose: 40 mg Documented by: Polyethylene Glycol (Polyethylene (Miralax) 17 Gm Pack) 17 gm PO DAILY PRN PRN Reason: Constipation Stop: 06/25/20 23:05 Potassium Chloride (Potassium Chloride 10 Meq Tabcr) 10 meq PO BID [facility] Stop: 06/26/20 08:59 Last Admin: 05/29/20 08:08 Dose: 10 meq Documented by: Prednisolone (Prednisolone Syrup 15 Mg/5 Ml Btl) 40 mg PO DAILY [facility] Stop: 06/29/20 08:59 Thiamine HCl (Thiamine Hcl 100 Mg Tab) 100 mg PO QAM [facility] Stop: 06/26/20 08:59 Last Admin: 05/29/20 08:07 Dose: 100 mg Documented by: (1) Asthma Asthma complication type: unspecified Asthma persistence: unspecified Asthma severity: unspecified severity Qualified Code(s): J45.909 - Unspecified asthma, uncomplicated
--- NOTE | 2020-05-29 14:44 | Ultrasound Report ---
US abdomen limited CLINICAL HISTORY: ascites check; abd distension COMPARISON STUDY: Abdomen and pelvis CT 05/26/2020. FINDINGS: No change in the trace perihepatic and pelvic ascites. IMPRESSION: Trace ascites, unchanged. ACT 112: Negative or not required by law. Electronically signed by: Sam Bobby M.D. 05/29/2020 2:43 PM
[2020-05-29] MEDS: LORazepam 1 MG/2 ML VIAL IV PRN (21:34)
[2020-05-30 05:39] LABS: Hematocrit (blood only) 37.2 % (37-47); Hemoglobin 11.8 g/dL (12.0-16.0); Mean Corpuscular Hemoglobin 36.1 pg (25-34); Mean Corpuscular Hgb Conc 31.7 g/dL (32-36); Mean Corpuscular Volume 113.8 fL (80-100); Mean Platelet Volume 9.8 fL (7.4-10.4); Platelet Count 197 K/uL (130-400); RDW Coefficient of Variation 17.5 % (11.5-14.5); RDW Standard Deviation 72.9 fL (36.4-46.3); Red Blood Count 3.27 M/uL (4.2-5.4); White Blood Count 9.22 K/uL (4.8-10.8)
[2020-05-30 05:55] LABS: INR 1.5 (0.9-1.1); Prothrombin Time 15.9 Seconds (9.0-12.0)
[2020-05-30 06:22] LABS: Albumin Globulin Ratio 0.5 (0.9-2); Albumin Level 1.8 gm/dl (3.4-5.0); BUN Creatinine Ratio 3.8 (10-20); Bilirubin,Total 18.7 mg/dl (0.2-1); Calcium 8.8 mg/dl (8.5-10.1); Creatinine Clr Calc Pharmacy 80.6 ml/min; Est GFR (African American) 90.1; Est GFR (Non-African American) 77.8; Globulin 3.9 gm/dl (2.5-4.0); Magnesium 2.8 mg/dl (1.8-2.4); Potassium 4.6 mmol/L (3.5-5.1); Total Protein 5.7 gm/dl (6.4-8.2)
[2020-05-30] MEDS: INSULIN ASPART 100 UNITS/ML 3 ML PEN SC SCH ×4 (07:47→21:54)
[2020-05-30] MEDS: INSULIN HUMAN NPH SC SCH (07:49)
[2020-05-30] MEDS: FLUTICASONE/VILANTEROL 200/25MCG 14 PUFFS/INHALER INH SCH (09:03)
[2020-05-30] MEDS: MULTIVITAMIN TAB PO SCH (09:04)
[2020-05-30] MEDS: THIAMINE HCL 100 MG TAB PO SCH (09:04)
[2020-05-30] MEDS: FOLIC ACID 1 MG TAB PO SCH (09:04)
[2020-05-30] MEDS: MAGNESIUM CHLORIDE 64MG DELAYED REL TAB PO SCH (09:04)
[2020-05-30] MEDS: PANTOprazole 40 MG TAB PO SCH (09:05)
[2020-05-30] MEDS: prednisoLONE SYRUP 15 MG/5 ML BTL PO SCH (09:06)
[2020-05-30] MEDS: cefTRIAXone SODIUM 2,000 MG in DEXTROSE 5% 50 ML IV SCH (09:06)
[2020-05-30] MEDS: LORazepam 1 MG/2 ML VIAL IV PRN (09:42)
--- NOTE | 2020-05-30 10:06 | Gastroenterology Progress Note ---
Date of Service May 30, 2020 Assessment & Plan (1) Acute alcoholic hepatitis: Pt is a 44 y/o female w ongoing ETOH abuse, seen for ETOH hepatitis. Maddrey Discriminant Function score: 42 MELD: 24 - IVF support - Prednisolone 40mg daily - Check Lille score 1 week into steroid therapy if pt would benefit continuation or not - Protonix 40mg daily - Monitor daily mentation, renal function, coag function. If acute decline in mentation, consider transfer to tertiary care center where liver transplant support is present - ETOH withdrawal protocol - Discussed high mortality risk on pts w ETOH hepatitis. Strict ETOH cessation advised. Consider inpt rehab after medically stable - Will follow along Admission and Anticipated Discharge Date Admission Date: May 26, 2020 Supervising Physician Co-Signing Physician Notes I saw and evaluated the patient today. We will plan with continued use of steroids and supportive care. On discharge the patient needs to consider alcohol abstinence continued alcohol consumption will likely lead in an early Subjective Pt c/o less abd pain. Had BM yesterday w/o signs of GI bleeding. Is tolerating solid meals w/o n/v. Review of Systems Review of Systems: All systems reviewed & are unremarkable except as noted in HPI & below Physical Exam Constitutional: + ill appearing, well groomed, cooperative and comfortable Eyes: + scleral abnormality (icteric sclera), PERRL and EOM intact bilaterally ENMT: external ear and nose normal, oropharynx normal Respiratory: normal respiratory effort, lungs clear to auscultation Cardiovascular: RRR, no murmur, no edema Gastrointestinal (Abdomen): Inspection/Auscultation: + abdomen distended and + hypoactive bowel sounds Percussion/Palpation: abdomen nontender Skin: no rashes, warm and dry + jaundice Psychiatric: A+Ox3, euthymic affect Lymphatic: no lymphedema Results & Data ([facility]) Vital Signs (Past 12 Hours) Vital Signs Temp Pulse Pulse Resp BP Pulse Ox 05/30/20 08:00 93 H 05/30/20 07:49 36.4 C L 96 H 16 100/60 97 05/30/20 04:22 36.5 C 82 17 95/60 L 96 05/29/20 23:18 36.4 C L 78 17 98/58 L 93 05/29/20 23:00 82
[2020-05-30] MEDS ORDERED: GABAPENTIN 600 MG TAB PO SCH (12:00)
--- NOTE | 2020-05-30 12:38 | Hospitalist Progress Note ---
Date of Service May 30, 2020 Assessment & Plan (1) Acute alcoholic hepatitis: Clinical improvement with steroids. GI following and agrees with continuing steroids and supportive care. Discussed use of Lasix/albumin, but this will not necessarily be beneficial for her at this time. She needs time and clinically is improving. Jaundice persists with bilirubin improving somewhat today. No further vitamin K has been given and she remains coagulopathic and without overt bleeding 2/2 acute liver fialure. Cont to trend PT/INR, CMP and CBC in am. Ceftriaxone for empiric treatment of SBP. Patient is requesting medication to stop her from having diarrhea. We do not want to make her constipated, and ideally want her having daily to twice daily bowel movements in order to avoid hepatic encephalopathy. We will give 1 dose of Imodium now but nothing as needed. (2) Acute liver failure: plan as above. (3) Coagulopathy: 2/2 liver failure (4) Alcohol withdrawal: Prior history of withdrawal, current withdrawal symptoms are mild. Mentating clearly. Daily alcohol use, 4 glasses of wine daily AWSS protocol Gabapentin taper, as needed Ativan Daily thiamine and folic acid Received banana bag in ED Strongly consider inpatient rehabilitation program upon dc. (5) Alcohol abuse: plan as above. (6) Diabetes mellitus type 1: Recently diagnosed 02/2020 secondary to DKA and prior diagnosis of acute pancreatitis Last A1c 5.8, 02/2020, repeat is 4.9 Continue NPH and NovoLog PRN per glycemic pharmacist. Current numbers are well controlled. Glycemic pharmacist adjusting insulin inputs. (7) Hypoalbuminemia: In setting of malnutrition and alcohol abuse. Discussed Lasix/albumin with GI physician over the weekend which will not be helpful in the absence of SBP or paracentesis. For now, cont steroid treatment and sodium restricted diet with 1.8L fluid restriction. Dietitian consulted Thigh-high SCDs ordered (8) Asthma: chronic, stable. No acute exacerbation. Continue Advair, as needed albuterol (9) DVT prophylaxis: SCDS/TEDS, Lovenox started as INR less than 2 Full Code Dispo-cont PCU monitoring. Muna Pastor DO [facility] Hospitalist Admission and Anticipated Discharge Date Admission Date: May 26, 2020 Subjective cc: Alcohol withdrawal, alcoholic hepatitis Patient is tearful today Reports having severe sharp stabbing right upper quadrant pain that was lateral and into her back when she woke up this morning, this has resolved as the day has progressed She reports 3-4 stools and feels as if she has "diarrhea" Nurse reports stools are more soft, not consistent with diarrhea per se Patient denies overt pain, no shortness of breath, nausea, vomiting The patient is tearful as she would also like some additional fluids She is emotional stating that she misses her family Review of Systems Review of Systems: All systems reviewed & are unremarkable except as noted in Subjective Physical Exam Physical Exam: CONSTITUTIONAL: WNWD, vitals as above, NAD EYES: normal conjunctivae, +scleral icterus ENT: external ear and nose normal, oropharynx clear, MMM RESPIRATORY: clear to auscultation bilaterally With diminished breath sounds throughout, no crackles, rales or wheezes, normal respiratory effort CARDIOVASCULAR: regular rate and rhythm, S1 and 2 heard without murmurs, gallops or rubs, no JVD, 3+ peripheral edema in lower extremities to her thighs bilaterally GASTROINTESTINAL: distended abdomen, Approximately the same as yesterday, protuberant, nontender, no fluid wave, no guarding MUSCULOSKELETAL: strength 5/5 throughout, head is normocephalic and atraumatic SKIN: warm and dry, +jaundice NEUROLOGIC: No facial palsy, no dysarthria. CN 2-12 grossly intact, no sensory deficit, normal cognition, normal speech, no tremor PSYCHIATRIC: alert cooperative and oriented to person, place and time. Results & Data Results & Data ([facility]) Vital Signs (Past 12 Hours) Vital Signs Temp Pulse Pulse Resp BP Pulse Ox 05/30/20 08:00 93 H 05/30/20 07:49 36.4 C L 96 H 16 100/60 97 05/30/20 04:22 36.5 C 82 17 95/60 L 96 Laboratory Results Short CBC 05/30/20 Range/Units 05:17 WBC 9.22 (4.8-10.8) K/uL Hgb 11.8 L (12.0-16.0) g/dL Hct 37.2 (37-47) % Plt Count 197 (130-400) K/uL BMP 05/29/20 05/30/20 11:34 05:17 Sodium 134 L 136 Potassium 4.7 4.6 Chloride 104 107 Carbon Dioxide 23 25 BUN 3 L 3 L Creatinine 0.90 Glucose 105 H 87 Calcium 9.3 8.8 Liver Function 05/29/20 05/30/20 Range/Units 11:34 05:17 Total Bilirubin 19.4 H 18.7 H (0.2-1) mg/dl AST 134 H 123 H (15-37) U/L ALT 51 48 (12-78) U/L Alkaline Phosphatase 316 H 292 H (45-117) U/L Albumin 1.9 L 1.8 L (3.4-5.0) gm/dl Medications Administered Current Inpatient Medications Al Hydrox/Mg Hydrox/Simethicone (Aluminum/Magnesium Susp 30 Ml Udc) 15 ml PO Q4H PRN PRN Reason: Dyspepsia Stop: 06/25/20 23:05 Albuterol (Albuterol Hfa 8 Gm Inhaler) 2 puffs INH Q6H PRN PRN Reason: Shortness Of Breath Stop: 06/25/20 23:05 Dextrose (Dextrose 50% 50 Ml Syringe) 25 - 50 ml IV UD PRN; Protocol PRN Reason: Hypoglycemia Protocol Stop: 06/25/20 23:05 Fluticasone/Vilanterol (Fluticasone/Vilanterol 200/25mcg 14 Puffs/Inhaler) 1 puffs INH DAILY [facility] Stop: 06/26/20 08:59 Last Admin: 05/30/20 09:03 Dose: 1 puffs Documented by: Folic Acid (Folic Acid 1 Mg Tab) 1 mg PO QAM [facility] Stop: 06/26/20 08:59 Last Admin: 05/30/20 09:04 Dose: 1 mg Documented by: Glucagon (Glucagon For Inj 1 Mg Vial) 1 mg SQ UD PRN; Protocol PRN Reason: Hypoglycemia Protocol Stop: 06/25/20 23:05 Glucose (Glucose 10 Tabs/Tube) 4 - 8 tabs PO UD PRN; Protocol PRN Reason: Hypoglycemia Protocol Stop: 06/25/20 23:05 Glucose (Glucose 40% Gel 15 Gm Tube) 15 - 30 gm PO UD PRN; Protocol PRN Reason: Hypoglycemia Protocol Stop: 06/25/20 23:05 Ceftriaxone Sodium 2,000 mg/ (Dextrose) 70 mls @ 100 mls/hr IV Q24H [facility]; Protocol Stop: 06/06/20 08:59 Last Infusion: 05/30/20 09:55 Dose: Infused Documented by: Lorazepam (Ativan) 1 mg in 2 mls @ 2 mls/min IV UD PRN; Protocol PRN Reason: EtOH Withdrawl AWSS Score 6,7 Stop: 06/26/20 19:10 Last Admin: 05/30/20 09:42 Dose: 2 mls/min Documented by: Lorazepam (Ativan) 2 mg in 4 mls @ 4 mls/min IV UD PRN; Protocol PRN Reason: EtOH Withdrawl AWSS Score 8,9 Stop: 06/26/20 19:10 Last Admin: 05/27/20 04:00 Dose: 4 mls/min Documented by: Lorazepam (Ativan) 3 mg in 6 mls @ 4 mls/min IV ONCE PRN; Protocol PRN Reason: EtOH Withdrawl AWSS Score >=10 Stop: 06/26/20 19:10 Insulin Aspart (Insulin Aspart 100 Units/Ml 3 Ml Pen) 0 units SC ACHS [facility]; Protocol Stop: 06/26/20 01:59 Last Admin: 05/30/20 11:41 Dose: 3 units Documented by: Insulin Human NPH (Insulin Human Nph) 13 units SC DAILY@0800 [facility]; Protocol Stop: 06/26/20 07:59 Last Admin: 05/30/20 07:49 Dose: 13 units Documented by: Insulin Human NPH (Insulin Human Nph) 5 units SC DAILY@1700 [facility]; Protocol Stop: 06/29/20 16:59 Magnesium Chloride (Magnesium Chloride 64mg Delayed Rel Tab) 64 mg PO BID [facility] Stop: 06/26/20 08:59 Last Admin: 05/30/20 09:04 Dose: 64 mg Documented by: Miscellaneous (Carbohydrates For Hypoglycemia ) 15 - 30 gm PO UD PRN PRN Reason: Hypoglycemia Protocol Stop: 06/25/20 23:05 Miscellaneous Information (Pharmacy Glycemic Mgmt Consult) 1 ea N/A UD PRN; Protocol PRN Reason: Consult Stop: 06/25/20 23:44 Multivitamins (Multivitamin Tab) [facility] Stop: 06/26/20 08:59 Last Admin: 05/30/20 09:04 Dose: 1 tab Documented by: Ondansetron HCl (Ondansetron Inj 2 Mg/Ml 2 Ml Vial) 4 mg IV Q6H PRN PRN Reason: Nausea Stop: 06/25/20 23:05 Pantoprazole Sodium (Pantoprazole 40 Mg Tab) 40 mg PO QAM [facility] Stop: 06/26/20 08:59 Last Admin: 05/30/20 09:05 Dose: 40 mg Documented by: Polyethylene Glycol (Polyethylene (Miralax) 17 Gm Pack) 17 gm PO DAILY PRN PRN Reason: Constipation Stop: 06/25/20 23:05 Potassium Chloride (Potassium Chloride 10 Meq Tabcr) 10 meq PO BID [facility] Stop: 06/26/20 08:59 Last Admin: 05/29/20 08:08 Dose: 10 meq Documented by: Prednisolone (Prednisolone Syrup 15 Mg/5 Ml Btl) 40 mg PO DAILY [facility] Stop: 06/29/20 08:59 Last Admin: 05/30/20 09:06 Dose: 40 mg Documented by: Thiamine HCl (Thiamine Hcl 100 Mg Tab) 100 mg PO QAM [facility] Stop: 06/26/20 08:59 Last Admin: 05/30/20 09:04 Dose: 100 mg Documented by: (1) Asthma Asthma complication type: unspecified Asthma persistence: unspecified Asthma severity: unspecified severity Qualified Code(s): J45.909 - Unspecified asthma, uncomplicated
[2020-05-30] MEDS ORDERED: LOPERAMIDE HCL 2 MG CAP PO STA (15:11)
[2020-05-30] MEDS ORDERED: INSULIN HUMAN NPH SC SCH (17:00)
[2020-05-30] MEDS: ENOXAPARIN INJ 40 MG/0.4 ML SYR SQ SCH (20:48)
[2020-05-31] MEDS: LORazepam 1 MG/2 ML VIAL IV PRN (02:49)
[2020-05-31 05:35] LABS: INR 1.8 (0.9-1.1); Prothrombin Time 18.1 Seconds (9.0-12.0)
[2020-05-31 06:36] LABS: Albumin Globulin Ratio 0.5 (0.9-2); Albumin Level 1.6 gm/dl (3.4-5.0); BUN Creatinine Ratio 6.9 (10-20); Bilirubin,Total 16.4 mg/dl (0.2-1); Calcium 8.5 mg/dl (8.5-10.1); Creatinine Clr Calc Pharmacy 90.7 ml/min; Est GFR (African American) 103.9; Est GFR (Non-African American) 89.7; Globulin 3.3 gm/dl (2.5-4.0); Potassium 4.3 mmol/L (3.5-5.1); Total Protein 4.9 gm/dl (6.4-8.2)
[2020-05-31] MEDS: INSULIN HUMAN NPH SC SCH (08:37)
[2020-05-31] MEDS: FLUTICASONE/VILANTEROL 200/25MCG 14 PUFFS/INHALER INH SCH (08:38)
[2020-05-31] MEDS: INSULIN ASPART 100 UNITS/ML 3 ML PEN SC SCH ×4 (08:38→20:57)
[2020-05-31] MEDS: PANTOprazole 40 MG TAB PO SCH (08:39)
[2020-05-31] MEDS: THIAMINE HCL 100 MG TAB PO SCH (08:39)
[2020-05-31] MEDS: FOLIC ACID 1 MG TAB PO SCH (08:39)
[2020-05-31] MEDS: MULTIVITAMIN TAB PO SCH (08:39)
[2020-05-31] MEDS: prednisoLONE SYRUP 15 MG/5 ML BTL PO SCH (08:39)
[2020-05-31] MEDS: cefTRIAXone SODIUM 2,000 MG in DEXTROSE 5% 50 ML IV SCH (08:42)
--- NOTE | 2020-05-31 09:45 | Gastroenterology Progress Note ---
Date of Service May 31, 2020 Assessment & Plan (1) Acute alcoholic hepatitis: Pt is a 44 y/o female w ongoing ETOH abuse, seen for ETOH hepatitis. Maddrey Discriminant Function score: 42 MELD: 24 - IVF support - Prednisolone 40mg daily - Check Lille score 1 week into steroid therapy if pt would benefit continuation or not - Protonix 40mg daily - Monitor daily mentation, renal function, coag function. If acute decline in mentation, consider transfer to tertiary care center where liver transplant support is present - ETOH withdrawal protocol - Discussed high mortality risk on pts w ETOH hepatitis. Strict ETOH cessation advised. Consider inpt rehab after medically stable - Will follow along Admission and Anticipated Discharge Date Admission Date: May 26, 2020 Supervising Physician Co-Signing Physician Notes Saw and evaluated the patient. Her mental status does seem improved today, she is able to answer questions appropriately. We would recommend that we continue use of steroids continue to follow her with daily labs. The patient was counseled with regard to need of abstinence from alcohol consumption in the future. Subjective Pt denies abd pain, n/v. Had BM this AM w/o signs of GI bleeding. LFTs trending down. Review of Systems Review of Systems: All systems reviewed & are unremarkable except as noted in HPI & below Physical Exam Constitutional: + frail appearing, well groomed, cooperative and comfortable Eyes: + scleral abnormality (icteric sclera), PERRL and EOM intact bilaterally ENMT: external ear and nose normal, oropharynx normal Respiratory: normal respiratory effort, lungs clear to auscultation Cardiovascular: RRR, no murmur, no edema Gastrointestinal (Abdomen): Inspection/Auscultation: + abdomen distended and + hypoactive bowel sounds Percussion/Palpation: abdomen nontender Skin: no rashes, warm and dry + jaundice Neurologic: Motor/Sensory: + asterixis Psychiatric: A+Ox3, euthymic affect Lymphatic: no lymphedema Results & Data ([facility]) Vital Signs (Past 12 Hours) Vital Signs Temp Pulse Pulse Resp BP Pulse Ox 05/31/20 08:00 79 05/31/20 07:46 36.4 C L 89 18 107/68 94 05/31/20 03:54 36.6 C 81 18 97/62 L 95 05/30/20 23:00 36.5 C 75 15 95/67 L 96
--- NOTE | 2020-05-31 13:37 | Hospitalist Progress Note ---
Date of Service May 31, 2020 Assessment & Plan (1) Acute alcoholic hepatitis: With history of alcohol abuse and recurrent withdrawal symptoms Meld score 24 Has been receiving steroid as per GI recommendation Appreciate GI input and recommendation Clinical improvement with steroids. Ceftriaxone for empiric treatment of SBP. No signs of hepatic encephalopathy She has been refusing to go to inpatient rehab We will continue current management (2) Acute liver failure: plan as above. Remains profoundly jaundiced with hemoglobin of more than 16 AST remains high and alkaline phos remains high as well (3) Coagulopathy: 2/2 liver failure (4) Alcohol withdrawal: Prior history of withdrawal, current withdrawal symptoms are mild. Mentating clearly. Daily alcohol use, 4 glasses of wine daily AWSS protocol Gabapentin course finished, he is now on as needed Ativan Strongly consider inpatient rehabilitation program upon dc. Refusing to go to inpatient rehab (5) Alcohol abuse: plan as above. (6) Diabetes mellitus type 1: Recently diagnosed 02/2020 secondary to DKA and prior diagnosis of acute pancreatitis Last A1c 5.8, 02/2020, repeat is 4.9 Continue NPH and NovoLog PRN per glycemic pharmacist. Current numbers are well controlled. Glycemic pharmacist adjusting insulin inputs. Blood pressure seems to be stable (7) Hypoalbuminemia: In setting of malnutrition and alcohol abuse. Prior hospitalist discussed Lasix/albumin with GI physician over the weekend which will not be helpful in the absence of SBP or paracentesis. (8) Asthma: chronic, stable. No acute exacerbation. Continue Advair, as needed albuterol (9) DVT prophylaxis: SCDS/TEDS, Lovenox started as INR less than 2 Full Code Dispo-cont PCU monitoring. She does not want her mother to be called Admission and Anticipated Discharge Date Admission Date: May 26, 2020 Subjective 05/31/2020 The patient was seen and examined in ICU She is a 44-year-old female with significant past medical history of alcohol abuse and dependence, history of recurrent alcohol withdrawal, at home, major depressive disorder, diabetes on insulin was admitted on 26 May with lower leg swelling and jaundice for 2 weeks He has been feeling little better today and denies any abdominal pain and or more distention, no nausea and no vomiting Review of Systems Review of Systems: All systems reviewed and are unremarkable except as noted below Constitutional: + fatigue and + weakness Gastrointestinal: + bloating; no abdominal pain, no nausea and no vomiting Physical Exam Physical Exam: Sitting on a chair without any acute distress Constitutional: well developed, well nourished and + ill appearing; no acute distress Eyes: sclerae not anicteric ENMT: external ear and nose normal, oropharynx normal Neck: trachea midline, no thyromegaly Respiratory: normal respiratory effort; no respiratory distress Auscultation: + diminished lung sounds Cardiovascular: Rate/Rhythm: regular rate and regular rhythm Heart Sounds: no murmur Gastrointestinal (Abdomen): Inspection/Auscultation: + abdomen distended; + abnormal bowel sounds (Sluggish bowel sounds) Percussion/Palpation: + abdomen tender (Minimally tender on palpation mostly over right upper quadrant); + abdomen not soft Musculoskeletal: No acute arthritis in any joint Neurologic: Alert, awake and oriented x3. Generally weak and lethargic Psychiatric: A+Ox3, euthymic affect Lymphatic: no cervical or axillary lymphadenopathy Results & Data Results & Data ([facility]) Vital Signs (Past 12 Hours) Vital Signs Temp Pulse Pulse Resp BP Pulse Ox 05/31/20 11:41 36.6 C 89 18 98/62 L 95 05/31/20 08:00 79 05/31/20 07:46 36.4 C L 89 18 107/68 94 05/31/20 03:54 36.6 C 81 18 97/62 L 95 Laboratory Results [facility] 05/31/20 05:04 Sodium 138 Potassium 4.3 Chloride 108 H Carbon Dioxide 25 BUN 6 L Creatinine 0.80 Glucose 88 Calcium 8.5 Liver Function 05/31/20 Range/Units 05:04 Total Bilirubin 16.4 H (0.2-1) mg/dl AST 114 H (15-37) U/L ALT 44 (12-78) U/L Alkaline Phosphatase 248 H (45-117) U/L Albumin 1.6 L (3.4-5.0) gm/dl Medications Administered Current Inpatient Medications Albuterol (Albuterol Hfa 8 Gm Inhaler) 2 puffs INH Q6H PRN PRN Reason: Shortness Of Breath Stop: 06/25/20 23:05 Dextrose (Dextrose 50% 50 Ml Syringe) 25 - 50 ml IV UD PRN; Protocol PRN Reason: Hypoglycemia Protocol Stop: 06/25/20 23:05 Enoxaparin Sodium (Enoxaparin Inj 40 Mg/0.4 Ml Syr) 40 mg SQ HS [facility] Stop: 06/29/20 20:59 Last Admin: 05/30/20 20:48 Dose: 40 mg Documented by: Fluticasone/Vilanterol (Fluticasone/Vilanterol 200/25mcg 14 Puffs/Inhaler) 1 puffs INH DAILY [facility] Stop: 06/26/20 08:59 Last Admin: 05/31/20 08:38 Dose: 1 puffs Documented by: Folic Acid (Folic Acid 1 Mg Tab) 1 mg PO QAM [facility] Stop: 06/26/20 08:59 Last Admin: 05/31/20 08:39 Dose: 1 mg Documented by: Glucagon (Glucagon For Inj 1 Mg Vial) 1 mg SQ UD PRN; Protocol PRN Reason: Hypoglycemia Protocol Stop: 06/25/20 23:05 Glucose (Glucose 10 Tabs/Tube) 4 - 8 tabs PO UD PRN; Protocol PRN Reason: Hypoglycemia Protocol Stop: 06/25/20 23:05 Glucose (Glucose 40% Gel 15 Gm Tube) 15 - 30 gm PO UD PRN; Protocol PRN Reason: Hypoglycemia Protocol Stop: 06/25/20 23:05 Ceftriaxone Sodium 2,000 mg/ (Dextrose) 70 mls @ 100 mls/hr IV Q24H [facility]; Protocol Stop: 06/06/20 08:59 Last Infusion: 05/31/20 09:42 Dose: Infused Documented by: Lorazepam (Ativan) 1 mg in 2 mls @ 2 mls/min IV UD PRN; Protocol PRN Reason: EtOH Withdrawl AWSS Score 6,7 Stop: 06/26/20 19:10 Last Admin: 05/31/20 02:49 Dose: 2 mls/min Documented by: Lorazepam (Ativan) 2 mg in 4 mls @ 4 mls/min IV UD PRN; Protocol PRN Reason: EtOH Withdrawl AWSS Score 8,9 Stop: 06/26/20 19:10 Last Admin: 05/27/20 04:00 Dose: 4 mls/min Documented by: Lorazepam (Ativan) 3 mg in 6 mls @ 4 mls/min IV ONCE PRN; Protocol PRN Reason: EtOH Withdrawl AWSS Score >=10 Stop: 06/26/20 19:10 Insulin Aspart (Insulin Aspart 100 Units/Ml 3 Ml Pen) 0 units SC ACHS [facility]; Protocol Stop: 06/26/20 01:59 Last Admin: 05/31/20 12:13 Dose: 8 units Documented by: Insulin Human NPH (Insulin Human Nph) 12 units SC DAILY@0800 [facility]; Protocol Stop: 06/30/20 07:59 Last Admin: 05/31/20 08:37 Dose: 12 units Documented by: Insulin Human NPH (Insulin Human Nph) 4 units SC DAILY@1700 [facility]; Protocol Stop: 06/30/20 16:59 Miscellaneous (Carbohydrates For Hypoglycemia ) 15 - 30 gm PO UD PRN PRN Reason: Hypoglycemia Protocol Stop: 06/25/20 23:05 Miscellaneous Information (Pharmacy Glycemic Mgmt Consult) 1 ea N/A UD PRN; Protocol PRN Reason: Consult Stop: 06/25/20 23:44 Multivitamins (Multivitamin Tab) 1 tab PO [facility] Stop: 06/26/20 08:59 Last Admin: 05/31/20 08:39 Dose: 1 tab Documented by: Ondansetron HCl (Ondansetron Inj 2 Mg/Ml 2 Ml Vial) 4 mg IV Q6H PRN PRN Reason: Nausea Stop: 06/25/20 23:05 Pantoprazole Sodium (Pantoprazole 40 Mg Tab) 40 mg PO [facility] Stop: 06/26/20 08:59 Last Admin: 05/31/20 08:39 Dose: 40 mg Documented by: Polyethylene Glycol (Polyethylene (Miralax) 17 Gm Pack) 17 gm PO DAILY PRN PRN Reason: Constipation Stop: 06/25/20 23:05 Prednisolone (Prednisolone Syrup 15 Mg/5 Ml Btl) 40 mg PO DAILY [facility] Stop: 06/29/20 08:59 Last Admin: 05/31/20 08:39 Dose: 40 mg Documented by: Thiamine HCl (Thiamine Hcl 100 Mg Tab) 100 mg PO [facility] Stop: 06/26/20 08:59 Last Admin: 05/31/20 08:39 Dose: 100 mg Documented by: (1) Asthma Asthma severity: unspecified severity Asthma persistence: unspecified Asthma complication type: unspecified Qualified Code(s): J45.909 - Unspecified asthma, uncomplicated
--- NOTE | 2020-05-31 13:50 | Pharmacy Report ---
Pharmacy Glycemic Short Note 2 - Date of Service May 31, 2020 - Glycemic Short BSG Results (Last 24 hours): 05/30/20 05/30/20 05/31/20 16:15 21:38 05:04 Glucose 88 POC Glucose 146 H 108 H 05/31/20 05/31/20 07:28 11:17 Glucose POC Glucose 76 125 H OUTPATIENT ANTIDIABETIC REGIMEN: * Novolin 70/30 20 units qAM, 10 units qPM * HbA1c: 4.9% (05/27/20) ASSESSMENT: 05/31 * BSGS have been at goal over the last 24 hrs * Fasting BSG 76-87 the last 2 days, will further down titrate the dinnertime NPH dose * Prelunch BSGs have been less than 100 at times, will make small decrease in AM NPH dose * PO intake has been improving 05/29 * BSGs well controlled over last 24 hrs * Fasting BSG 100 this AM after receiving NPH 13 units w/ breakfast + 7 units w/ dinner * Post-prandial BSGs well controlled w/ current regimen * Received Solu-medrol 32mg IV this AM - will transition to Prednisolone 40mg PO daily tomorrow (equivalent dose) * Will continue same insulin doses for next 24 hrs 05/28 * BSGs yesterday of 144, 180, 201, and 151 mg/dL * Received 20 units of NPH and 25 units of prandial/correctional Novolog * Continues on Solu-medrol 32 mg IV daily * Will increase AM dose of NPH to correlate with outpatient regimen and IV steroids in AM * Continues on empiric ceftriaxone for possible SBP 05/27 * Ms Avelar is a 44yo Type 1 diabetic, diagnosed 02/2020. * She is ordered a clear liquid diet. * Pt is also ordered IV SoluMedrol daily, which is expected to contribute to steroid-induced hyperglycemia. PLAN FOR INPATIENT GLYCEMIC CONTROL: * Basal insulin - decrease * NPH 12 units SC w/ breakfast * NPH 4 units SC w/ dinner * Bolus insulin - continue * NovoLog per scale ACHS or Q6hrs while NPO * Goal Range: Low 120 mg/dL - High 160 mg/dL * Correction Factor: 30 mg/dL/unit * Nutritional / Prandial insulin per carb ratio of 1 unit per 10 grams CHO consumed PLAN FOR DISCHARGE: * HbA1c of 4.9% suggests very good outpatient glycemic control * BSG at time of presentation on 05/26 was 64 mg/dL * May require dose reduction of home regimen if patient is experiencing hypo glycemia regularly * Will follow inpatient insulin needs and make recommendations accordingly
[2020-05-31] MEDS ORDERED: INSULIN HUMAN NPH SC SCH (17:00)
[2020-05-31] MEDS: ALBUTEROL HFA 8 GM INHALER INH PRN (18:17)
[2020-05-31] MEDS: LORazepam 2 MG/4 ML VIAL IV PRN (20:56)
[2020-05-31] MEDS: ENOXAPARIN INJ 40 MG/0.4 ML SYR SQ SCH (20:56)
[2020-06-01] MEDS: LORazepam 1 MG/2 ML VIAL IV PRN (03:15)
[2020-06-01 06:47] LABS: Basophils # (auto) 0.01 K/uL (0-0.2); Basophils % (auto) 0.1 %; Eosinophils # (auto) 0.02 K/uL (0-0.5); Eosinophils % (auto) 0.2 %; Hematocrit (blood only) 34.3 % (37-47); Hemoglobin 10.9 g/dL (12.0-16.0); Immature Granulocytes # (auto) 0.42 K/uL (0.00-0.02); Immature Granulocytes % (auto) 4.4 %; Lymphocytes # (auto) 0.95 K/uL (1.2-3.4); Mean Corpuscular Hemoglobin 36.5 pg (25-34); Mean Corpuscular Hgb Conc 31.8 g/dL (32-36); Mean Corpuscular Volume 114.7 fL (80-100); Monocytes # (auto) 0.66 K/uL (0.11-0.59); Monocytes % (auto) 6.9 %; Neutrophils # (auto) 7.46 K/uL (1.4-6.5); Neutrophils % (auto) 78.4 %; Platelet Count 214 K/uL (130-400); RDW Standard Deviation 74.3 fL (36.4-46.3); Red Blood Count 2.99 M/uL (4.2-5.4); White Blood Count 9.52 K/uL (4.8-10.8)
[2020-06-01 06:57] LABS: INR 1.5 (0.9-1.1); Prothrombin Time 15.9 Seconds (9.0-12.0)
[2020-06-01 07:30] LABS: Macrocytosis Present
[2020-06-01 07:37] LABS: Albumin Globulin Ratio 0.5 (0.9-2); Albumin Level 1.7 gm/dl (3.4-5.0); BUN Creatinine Ratio 9.6 (10-20); Bilirubin,Total 15.8 mg/dl (0.2-1); Calcium 8.7 mg/dl (8.5-10.1); Creatinine Clr Calc Pharmacy 89.5 ml/min; Est GFR (African American) 102.4; Est GFR (Non-African American) 88.3; Globulin 3.3 gm/dl (2.5-4.0); Magnesium 2.7 mg/dl (1.8-2.4); Phosphorus 1.7 mg/dl (2.5-4.9); Potassium 3.8 mmol/L (3.5-5.1)
[2020-06-01] MEDS: INSULIN HUMAN NPH SC SCH (07:48)
[2020-06-01] MEDS: INSULIN ASPART 100 UNITS/ML 3 ML PEN SC SCH ×4 (07:50→21:14)
[2020-06-01] MEDS: FLUTICASONE/VILANTEROL 200/25MCG 14 PUFFS/INHALER INH SCH (07:58)
[2020-06-01] MEDS: THIAMINE HCL 100 MG TAB PO SCH (07:58)
[2020-06-01] MEDS: PANTOprazole 40 MG TAB PO SCH (07:59)
[2020-06-01] MEDS: prednisoLONE SYRUP 15 MG/5 ML BTL PO SCH (07:59)
[2020-06-01] MEDS: MULTIVITAMIN TAB PO SCH (07:59)
[2020-06-01] MEDS: FOLIC ACID 1 MG TAB PO SCH (07:59)
[2020-06-01] MEDS ORDERED: INSULIN HUMAN NPH SC SCH ×2 (08:00→17:00)
[2020-06-01] MEDS: cefTRIAXone SODIUM 2,000 MG in DEXTROSE 5% 50 ML IV SCH (08:39)
[2020-06-01] MEDS ORDERED: POTASSIUM PHOS 3 MMOL/1 ML INFUSION IV STA (08:50)
[2020-06-01] MEDS ORDERED: POTASSIUM PHOSPHATE 24 MMOL in SODIUM CHLORIDE 0.9% 500 ML IV ONE (09:00)
--- NOTE | 2020-06-01 09:44 | Gastroenterology Progress Note ---
Date of Service June 01, 2020 Assessment & Plan (1) Acute alcoholic hepatitis: Pt is a 44 y/o female w ongoing ETOH abuse, seen for ETOH hepatitis. Maddrey Discriminant Function score: 42 MELD: 24 - IVF support - Prednisolone 40mg daily - Check Lille score 1 week into steroid therapy if pt would benefit continuation or not - Protonix 40mg daily - Monitor daily mentation, renal function, coag function. If acute decline in mentation, consider transfer to tertiary care center where liver transplant support is present - ETOH withdrawal protocol - Discussed high mortality risk on pts w ETOH hepatitis. Strict ETOH cessation advised. Consider inpt rehab after medically stable - Will follow along Admission and Anticipated Discharge Date Admission Date: May 26, 2020 Supervising Physician Co-Signing Physician Notes I saw and evaluated the patient this afternoon. She is tolerating an oral diet and seems to be slowly improving. We should continue her with steroid for treatment of her alcoholic hepatitis. Subjective Pt transferred out of ICU. She reports soreness on R back, denies abd pain, n/v, BM this AM. Review of Systems Review of Systems: All systems reviewed & are unremarkable except as noted in HPI & below Physical Exam Constitutional: + frail appearing, well groomed, cooperative and comfortable Eyes: + scleral abnormality (icteric sclera), PERRL and EOM intact bilaterally ENMT: external ear and nose normal, oropharynx normal Respiratory: normal respiratory effort, lungs clear to auscultation Cardiovascular: RRR, no murmur, no edema Gastrointestinal (Abdomen): Inspection/Auscultation: + abdomen distended and + hypoactive bowel sounds Percussion/Palpation: abdomen nontender Skin: no rashes, warm and dry + jaundice Psychiatric: A+Ox3, euthymic affect Lymphatic: no lymphedema Results & Data ([facility]) Vital Signs (Past 12 Hours) Vital Signs Temp Pulse Pulse Resp BP BP Pulse Ox 06/01/20 08:00 88 06/01/20 07:41 36.8 C 86 16 92/54 L 95 06/01/20 02:39 36.3 C L 87 20 108/73 98 06/01/20 00:42 36.5 C 06/01/20 00:39 74 16 92/54 L 92
--- NOTE | 2020-06-01 14:29 | Hospitalist Progress Note ---
Date of Service June 01, 2020 Assessment & Plan (1) Acute alcoholic hepatitis: With history of alcohol abuse and recurrent withdrawal symptoms Meld score 24 Has been receiving steroid as per GI recommendation Appreciate GI input and recommendation Clinical improvement with steroids. Ceftriaxone for empiric treatment of SBP. No signs of hepatic encephalopathy She has been refusing to go to inpatient rehab Condition critical but stable If deteriorates will need to be transferred to tertiary care center as per GI recommendation Profound weakness and tiredness Has been able to participate in physical therapy Slow improvement (2) Acute liver failure: plan as above. Remains profoundly jaundiced with hemoglobin of more than 16 AST remains high and alkaline phos remains high as well (3) Coagulopathy: 2/2 liver failure (4) Alcohol withdrawal: Prior history of withdrawal, current withdrawal symptoms are mild. Mentating clearly. Daily alcohol use, 4 glasses of wine daily AWSS protocol Gabapentin course finished, he is now on as needed Ativan Strongly consider inpatient rehabilitation program upon dc. Refusing to go to inpatient rehab No signs and/or symptoms of withdrawal (5) Alcohol abuse: plan as above. (6) Diabetes mellitus type 1: Recently diagnosed 02/2020 secondary to DKA and prior diagnosis of acute pancreatitis Last A1c 5.8, 02/2020, repeat is 4.9 Continue NPH and NovoLog PRN per glycemic pharmacist. Current numbers are well controlled. Glycemic pharmacist adjusting insulin inputs. Blood pressure seems to be stable (7) Hypoalbuminemia: In setting of malnutrition and alcohol abuse. Prior hospitalist discussed Lasix/albumin with GI physician over the weekend which will not be helpful in the absence of SBP or paracentesis. (8) Asthma: chronic, stable. No acute exacerbation. Continue Advair, as needed albuterol (9) DVT prophylaxis: SCDS/TEDS, Lovenox started as INR less than 2 Full Code Dispo-cont PCU monitoring. She does not want her mother to be called Admission and Anticipated Discharge Date Admission Date: May 26, 2020 Subjective 05/31/2020 The patient was seen and examined in ICU She is a 44-year-old female with significant past medical history of alcohol abuse and dependence, history of recurrent alcohol withdrawal, at home, major depressive disorder, diabetes on insulin was admitted on 26 May with lower leg swelling and jaundice for 2 weeks He has been feeling little better today and denies any abdominal pain and or more distention, no nausea and no vomiting 06/01/2020 The patient was seen and examined in telemetry unit He complains to have profound weakness and tiredness Shortness of breath on minimal exertion Denies any pain. No fever and/or chills Review of Systems Review of Systems: All systems reviewed and are unremarkable except as noted below Constitutional: + fatigue and + weakness Gastrointestinal: + bloating; no abdominal pain, no nausea and no vomiting Physical Exam Physical Exam: Sitting on a chair exhausted Constitutional: well developed, well nourished and + ill appearing; no acute distress Eyes: sclerae not anicteric ENMT: external ear and nose normal, oropharynx normal Neck: trachea midline, no thyromegaly Respiratory: normal respiratory effort; no respiratory distress Auscultation: + diminished lung sounds Cardiovascular: Rate/Rhythm: regular rate and regular rhythm Heart Sounds: no murmur Extremities: + edema (1+ edema bilaterally) Gastrointestinal (Abdomen): Inspection/Auscultation: + abdomen distended; + abnormal bowel sounds (Sluggish bowel sounds) Percussion/Palpation: + abdomen tender (Minimally tender on palpation mostly over right upper quadrant) and + ascites (Mild ascites clinically); + abdomen not soft Musculoskeletal: No acute arthritis in any joint Psychiatric: A+Ox3, euthymic affect Lymphatic: no cervical or axillary lymphadenopathy Results & Data Results & Data ([facility]) Vital Signs (Past 12 Hours) Vital Signs Temp Pulse Pulse Resp BP Pulse Ox 06/01/20 11:00 37.4 C 100 H 20 108/75 92 06/01/20 08:00 88 06/01/20 07:41 36.8 C 86 16 92/54 L 95 06/01/20 02:39 36.3 C L 87 20 108/73 98 Laboratory Results Short CBC 06/01/20 Range/Units 06:20 WBC 9.52 (4.8-10.8) K/uL Hgb 10.9 L (12.0-16.0) g/dL Hct 34.3 L (37-47) % Plt Count 214 (130-400) K/uL BMP 06/01/20 06:20 Sodium 139 Potassium 3.8 Chloride 109 H Carbon Dioxide 23 BUN 8 Creatinine 0.81 Glucose 65 L Calcium 8.7 Liver Function 06/01/20 Range/Units 06:20 Total Bilirubin 15.8 H (0.2-1) mg/dl AST 122 H (15-37) U/L ALT 47 (12-78) U/L Alkaline Phosphatase 250 H (45-117) U/L Albumin 1.7 L (3.4-5.0) gm/dl Medications Administered Current Inpatient Medications Albuterol (Albuterol Hfa 8 Gm Inhaler) 2 puffs INH Q6H PRN PRN Reason: Shortness Of Breath Stop: 06/25/20 23:05 Last Admin: 05/31/20 18:17 Dose: 2 puffs Documented by: Dextrose (Dextrose 50% 50 Ml Syringe) 25 - 50 ml IV UD PRN; Protocol PRN Reason: Hypoglycemia Protocol Stop: 06/25/20 23:05 Enoxaparin Sodium (Enoxaparin Inj 40 Mg/0.4 Ml Syr) 40 mg SQ HS [facility] Stop: 06/29/20 20:59 Last Admin: 05/31/20 20:56 Dose: 40 mg Documented by: Fluticasone/Vilanterol (Fluticasone/Vilanterol 200/25mcg 14 Puffs/Inhaler) 1 puffs INH DAILY [facility] Stop: 06/26/20 08:59 Last Admin: 06/01/20 07:58 Dose: 1 puffs Documented by: Folic Acid (Folic Acid 1 Mg Tab) 1 mg PO QAM [facility] Stop: 06/26/20 08:59 Last Admin: 06/01/20 07:59 Dose: 1 mg Documented by: Glucagon (Glucagon For Inj 1 Mg Vial) 1 mg SQ UD PRN; Protocol PRN Reason: Hypoglycemia Protocol Stop: 06/25/20 23:05 Glucose (Glucose 10 Tabs/Tube) 4 - 8 tabs PO UD PRN; Protocol PRN Reason: Hypoglycemia Protocol Stop: 06/25/20 23:05 Glucose (Glucose 40% Gel 15 Gm Tube) 15 - 30 gm PO UD PRN; Protocol PRN Reason: Hypoglycemia Protocol Stop: 06/25/20 23:05 Ceftriaxone Sodium 2,000 mg/ (Dextrose) 70 mls @ 100 mls/hr IV Q24H [facility]; Protocol Stop: 06/06/20 08:59 Last Admin: 06/01/20 08:39 Dose: 100 mls/hr Documented by: Lorazepam (Ativan) 1 mg in 2 mls @ 2 mls/min IV UD PRN; Protocol PRN Reason: EtOH Withdrawl AWSS Score 6,7 Stop: 06/26/20 19:10 Last Admin: 06/01/20 03:15 Dose: 2 mls/min Documented by: Lorazepam (Ativan) 2 mg in 4 mls @ 4 mls/min IV UD PRN; Protocol PRN Reason: EtOH Withdrawl AWSS Score 8,9 Stop: 06/26/20 19:10 Last Admin: 05/31/20 20:56 Dose: 4 mls/min Documented by: Lorazepam (Ativan) 3 mg in 6 mls @ 4 mls/min IV ONCE PRN; Protocol PRN Reason: EtOH Withdrawl AWSS Score >=10 Stop: 06/26/20 19:10 Potassium Phosphate 24 mmol/ (Sodium Chloride) 508 mls @ 88 mls/hr IV ONE ONE Stop: 06/01/20 14:46 Last Admin: 06/01/20 09:26 Dose: 88 mls/hr Documented by: Insulin Aspart (Insulin Aspart 100 Units/Ml 3 Ml Pen) 0 units SC [facility]; Protocol Stop: 06/26/20 01:59 Last Admin: 06/01/20 12:08 Dose: 4 units Documented by: Insulin Human NPH (Insulin Human Nph) 8 units SC DAILY@0800 [facility]; Protocol Stop: 07/01/20 07:59 Last Admin: 06/01/20 07:56 Dose: Not Given Documented by: Insulin Human NPH (Insulin Human Nph) 3 units SC DAILY@1700 [facility]; Protocol Stop: 07/01/20 16:59 Miscellaneous (Carbohydrates For Hypoglycemia ) 15 - 30 gm PO UD PRN PRN Reason: Hypoglycemia Protocol Stop: 06/25/20 23:05 Miscellaneous Information (Pharmacy Glycemic Mgmt Consult) 1 ea N/A UD PRN; Protocol PRN Reason: Consult Stop: 06/25/20 23:44 Multivitamins (Multivitamin Tab) 1 tab PO [facility] Stop: 06/26/20 08:59 Last Admin: 06/01/20 07:59 Dose: 1 tab Documented by: Ondansetron HCl (Ondansetron Inj 2 Mg/Ml 2 Ml Vial) 4 mg IV Q6H PRN PRN Reason: Nausea Stop: 06/25/20 23:05 Pantoprazole Sodium (Pantoprazole 40 Mg Tab) 40 mg PO [facility] Stop: 06/26/20 08:59 Last Admin: 06/01/20 07:59 Dose: 40 mg Documented by: Polyethylene Glycol (Polyethylene (Miralax) 17 Gm Pack) 17 gm PO DAILY PRN PRN Reason: Constipation Stop: 06/25/20 23:05 Prednisolone (Prednisolone Syrup 15 Mg/5 Ml Btl) 40 mg PO DAILY [facility] Stop: 06/29/20 08:59 Last Admin: 06/01/20 07:59 Dose: 40 mg Documented by: Thiamine HCl (Thiamine Hcl 100 Mg Tab) 100 mg PO QAM [facility] Stop: 06/26/20 08:59 Last Admin: 06/01/20 07:58 Dose: 100 mg Documented by: (1) Asthma Asthma severity: unspecified severity Asthma persistence: unspecified Asthma complication type: unspecified Qualified Code(s): J45.909 - Unspecified asthma, uncomplicated
[2020-06-01] MEDS: LORazepam 0.5 MG TAB PO PRN (20:45)
[2020-06-01] MEDS: ENOXAPARIN INJ 40 MG/0.4 ML SYR SQ SCH (20:46)
[2020-06-02 07:03] LABS: Basophils # (auto) 0.02 K/uL (0-0.2); Basophils % (auto) 0.2 %; Eosinophils # (auto) 0.03 K/uL (0-0.5); Eosinophils % (auto) 0.3 %; Hematocrit (blood only) 34.1 % (37-47); Hemoglobin 10.6 g/dL (12.0-16.0); Lymphocytes # (auto) 0.99 K/uL (1.2-3.4); Lymphocytes % (auto) 9.9 %; Mean Corpuscular Hemoglobin 35.8 pg (25-34); Mean Corpuscular Hgb Conc 31.1 g/dL (32-36); Mean Corpuscular Volume 115.2 fL (80-100); Mean Platelet Volume 10.1 fL (7.4-10.4); Monocytes # (auto) 0.65 K/uL (0.11-0.59); Monocytes % (auto) 6.5 %; Neutrophils # (auto) 7.81 K/uL (1.4-6.5); Neutrophils % (auto) 78.1 %; Platelet Count 214 K/uL (130-400); RDW Standard Deviation 75.4 fL (36.4-46.3); Red Blood Count 2.96 M/uL (4.2-5.4)
[2020-06-02 07:26] LABS: Albumin Globulin Ratio 0.5 (0.9-2); Albumin Level 1.7 gm/dl (3.4-5.0); Calcium 8.6 mg/dl (8.5-10.1); Creatinine Clr Calc Pharmacy 103.7 ml/min; Est GFR (African American) 122.1; Est GFR (Non-African American) 105.4; Globulin 3.2 gm/dl (2.5-4.0); Potassium 3.7 mmol/L (3.5-5.1); Total Protein 4.9 gm/dl (6.4-8.2)
[2020-06-02] MEDS: CARBOHYDRATES FOR HYPOGLYCEMIA PO PRN (07:45)
[2020-06-02] MEDS: INSULIN ASPART 100 UNITS/ML 3 ML PEN SC SCH ×4 (07:51→20:54)
[2020-06-02 07:57] LABS: Macrocytosis Present
[2020-06-02] MEDS ORDERED: INSULIN HUMAN NPH SC SCH (08:00)
[2020-06-02] MEDS: FLUTICASONE/VILANTEROL 200/25MCG 14 PUFFS/INHALER INH SCH (08:38)
[2020-06-02] MEDS: THIAMINE HCL 100 MG TAB PO SCH (08:38)
[2020-06-02] MEDS: PANTOprazole 40 MG TAB PO SCH (08:38)
[2020-06-02] MEDS: prednisoLONE SYRUP 15 MG/5 ML BTL PO SCH (08:38)
[2020-06-02] MEDS: MULTIVITAMIN TAB PO SCH (08:38)
[2020-06-02] MEDS: FOLIC ACID 1 MG TAB PO SCH (08:39)
[2020-06-02] MEDS: cefTRIAXone SODIUM 2,000 MG in DEXTROSE 5% 50 ML IV SCH (08:45)
[2020-06-02] MEDS ORDERED: FUROSEMIDE 40 MG in SYRINGE 0 ML IV ONE (09:15)
--- NOTE | 2020-06-02 10:04 | Gastroenterology Progress Note ---
Date of Service June 02, 2020 Assessment & Plan (1) Acute alcoholic hepatitis: Pt is a 44 y/o female w ongoing ETOH abuse, seen for ETOH hepatitis. Maddrey Discriminant Function score: 42 MELD: 24 - Prednisolone 40mg daily. Lille score 0.562. However would continue Prednisolone x 28 days before tapering at this time - Protonix 40mg daily - Monitor daily mentation, renal function, coag function. If acute decline in mentation, consider transfer to tertiary care center where liver transplant support is present - ETOH withdrawal protocol - Discussed high mortality risk on pts w ETOH hepatitis. Strict ETOH cessation advised. Consider inpt rehab after medically stable - Lasix IV 40mg x 1 dose today - 2g Na diet - Pls recall GI over the weekend on prn basis Admission and Anticipated Discharge Date Admission Date: May 26, 2020 Supervising Physician Co-Signing Physician Notes I saw and evaluated the patient. She seems to be tolerating the steroids well but has had minimal improvement of her bilirubin over the last 24 hours. Given her history I would suggest that we continue with steroid use for another few days prior to discontinuing. Please call with any questions or concerns over the weekend, otherwise coverage will resume on Friday Subjective Pt c/o back soreness. Had small BM this AM w/o signs of GI bleeding. Denies n/v. Review of Systems Review of Systems: All systems reviewed & are unremarkable except as noted in HPI & below Physical Exam Constitutional: + frail appearing, well groomed, cooperative and comfortable Eyes: + scleral abnormality (icteric sclera), PERRL and EOM intact bilaterally ENMT: external ear and nose normal, oropharynx normal Respiratory: normal respiratory effort, lungs clear to auscultation Cardiovascular: RRR, no murmur, no edema Gastrointestinal (Abdomen): Inspection/Auscultation: + abdomen distended and + hypoactive bowel sounds Percussion/Palpation: abdomen nontender Skin: no rashes, warm and dry + jaundice Psychiatric: A+Ox3, euthymic affect Lymphatic: + lymphedema (Bilateral LE pitting edema +3) Results & Data ([facility]) Vital Signs (Past 12 Hours) Vital Signs Temp Pulse Resp BP Pulse Ox 06/02/20 07:50 36.7 C 94 H 20 107/72 98 06/02/20 05:53 100/66 06/02/20 03:59 36.8 C 79 18 94 06/01/20 23:40 36.6 C 78 18 97/62 L 98
[2020-06-02] MEDS: LORazepam 0.5 MG TAB PO PRN ×2 (11:11→19:53)
[2020-06-02] MEDS ORDERED: INSULIN HUMAN NPH SC ONE (12:30)
--- NOTE | 2020-06-02 15:03 | Hospitalist Progress Note ---
Date of Service June 02, 2020 Assessment & Plan (1) Acute alcoholic hepatitis: With history of alcohol abuse and recurrent withdrawal symptoms Meld score 24 Has been receiving steroid as per GI recommendation Appreciate GI input and recommendation Clinical improvement with steroids. Ceftriaxone for empiric treatment of SBP. No signs of hepatic encephalopathy She has been refusing to go to inpatient rehab Condition critical but stable If deteriorates will need to be transferred to tertiary care center as per GI recommendation Remains stable but critical We will continue prednisone at the current dose for 28 days in total as per GI recommendation Profound weakness and tiredness Has been able to participate in physical therapy Slow improvement Has been participating in PT and OT (2) Acute liver failure: plan as above. Remains profoundly jaundiced with hemoglobin of more than 16 AST remains high and alkaline phos remains high as well If the condition deteriorates will discuss that with supervisor cook house in [place] (3) Coagulopathy: 2/2 liver failure (4) Alcohol withdrawal: Prior history of withdrawal, current withdrawal symptoms are mild. Men tating clearly. Daily alcohol use, 4 glasses of wine daily AWSS protocol Gabapentin course finished, he is now on as needed Ativan Strongly consider inpatient rehabilitation program upon dc. Refusing to go to inpatient rehab No signs and/or symptoms of withdrawal (5) Alcohol abuse: plan as above. (6) Diabetes mellitus type 1: Recently diagnosed 02/2020 secondary to DKA and prior diagnosis of acute pancreatitis Last A1c 5.8, 02/2020, repeat is 4.9 Continue NPH and NovoLog PRN per glycemic pharmacist. Current numbers are well controlled. Glycemic pharmacist adjusting insulin inputs. Blood pressure seems to be stable (7) Hypoalbuminemia: In setting of malnutrition and alcohol abuse. Prior hospitalist discussed Lasix/albumin with GI physician over the weekend which will not be helpful in the absence of SBP or paracentesis. Advised to continue to try to eat and drink as asked for (8) Asthma: chronic, stable. No acute exacerbation. Continue Advair, as needed albuterol (9) DVT prophylaxis: SCDS/TEDS, Lovenox started as INR less than 2 Full Code Dispo-cont PCU monitoring. She does not want her mother to be called Admission and Anticipated Discharge Date Admission Date: May 26, 2020 Subjective 05/31/2020 The patient was seen and examined in ICU She is a 44-year-old female with significant past medical history of alcohol abuse and dependence, history of recurrent alcohol withdrawal, at home, major depressive disorder, diabetes on insulin was admitted on 26 May with lower leg swelling and jaundice for 2 weeks He has been feeling little better today and denies any abdominal pain and or more distention, no nausea and no vomiting 06/01/2020 The patient was seen and examined in telemetry unit Shee complains to have profound weakness and tiredness Shortness of breath on minimal exertion Denies any pain. No fever and/or chills 06/02/2020 The patient was seen and examined in telemetry unit She remains extremely weak and lethargic Denies any fever and/or chills, any shortness of breath at rest Her abdomen remains distended and she feels bloated Review of Systems Review of Systems: All systems reviewed and are unremarkable except as noted below Constitutional: + fatigue and + weakness Gastrointestinal: + bloating; no abdominal pain, no nausea and no vomiting Physical Exam Physical Exam: Lying on bed without any apparent distress Constitutional: well developed, well nourished and + ill appearing; no acute distress Eyes: sclerae not anicteric ENMT: external ear and nose normal, oropharynx normal Neck: trachea midline, no thyromegaly Respiratory: normal respiratory effort; no respiratory distress Auscultation: + diminished lung sounds Cardiovascular: Rate/Rhythm: regular rate and regular rhythm Heart Sounds: no murmur Extremities: + edema (1-2+ edema bilaterally) Gastrointestinal (Abdomen): Inspection/Auscultation: + abdomen distended; + abnormal bowel sounds (Sluggish bowel sounds) Percussion/Palpation: + abdomen tender (Minimally tender on palpation mostly over right upper quadrant) and + ascites (Mild ascites clinically); + abdomen not soft Musculoskeletal: No acute arthritis in any joint Psychiatric: A+Ox3, euthymic affect Lymphatic: no cervical or axillary lymphadenopathy Results & Data Results & Data ([facility]) Vital Signs (Past 12 Hours) Vital Signs Temp Pulse Pulse Resp BP Pulse Ox 06/02/20 11:52 36.6 C 103 H 18 111/74 92 06/02/20 08:00 88 06/02/20 07:50 36.7 C 94 H 20 107/72 98 06/02/20 05:53 100/66 06/02/20 03:59 36.8 C 79 18 94 Laboratory Results Short CBC 06/02/20 Range/Units 06:18 WBC 10.00 (4.8-10.8) K/uL Hgb 10.6 L (12.0-16.0) g/dL Hct 34.1 L (37-47) % Plt Count 214 (130-400) K/uL BMP 06/02/20 06:18 Sodium 140 Potassium 3.7 Chloride 110 H Carbon Dioxide 21 BUN 10 Creatinine 0.70 Glucose 51 L* Calcium 8.6 Liver Function 06/02/20 Range/Units 06:18 Total Bilirubin 15.0 H (0.2-1) mg/dl AST 128 H (15-37) U/L ALT 45 (12-78) U/L Alkaline Phosphatase 228 H (45-117) U/L Albumin 1.7 L (3.4-5.0) gm/dl Medications Administered Current Inpatient Medications Albuterol (Albuterol Hfa 8 Gm Inhaler) 2 puffs INH Q6H PRN PRN Reason: Shortness Of Breath Stop: 06/25/20 23:05 Last Admin: 05/31/20 18:17 Dose: 2 puffs Documented by: Dextrose (Dextrose 50% 50 Ml Syringe) 25 - 50 ml IV UD PRN; Protocol PRN Reason: Hypoglycemia Protocol Stop: 06/25/20 23:05 Enoxaparin Sodium (Enoxaparin Inj 40 Mg/0.4 Ml Syr) 40 mg SQ HS [facility] Stop: 06/29/20 20:59 Last Admin: 06/01/20 20:46 Dose: 40 mg Documented by: Fluticasone/Vilanterol (Fluticasone/Vilanterol 200/25mcg 14 Puffs/Inhaler) 1 puffs INH DAILY [facility] Stop: 06/26/20 08:59 Last Admin: 06/02/20 08:38 Dose: 1 puffs Documented by: Folic Acid (Folic Acid 1 Mg Tab) 1 mg PO QAM [facility] Stop: 06/26/20 08:59 Last Admin: 06/02/20 08:39 Dose: 1 mg Documented by: Glucagon (Glucagon For Inj 1 Mg Vial) 1 mg SQ UD PRN; Protocol PRN Reason: Hypoglycemia Protocol Stop: 06/25/20 23:05 Glucose (Glucose 10 Tabs/Tube) 4 - 8 tabs PO UD PRN; Protocol PRN Reason: Hypoglycemia Protocol Stop: 06/25/20 23:05 Glucose (Glucose 40% Gel 15 Gm Tube) 15 - 30 gm PO UD PRN; Protocol PRN Reason: Hypoglycemia Protocol Stop: 06/25/20 23:05 Ceftriaxone Sodium 2,000 mg/ (Dextrose) 70 mls @ 100 mls/hr IV Q24H [facility]; Protocol Stop: 06/06/20 08:59 Last Infusion: 06/02/20 09:30 Dose: Infused Documented by: Lorazepam (Ativan) 1 mg in 2 mls @ 2 mls/min IV UD PRN; Protocol PRN Reason: EtOH Withdrawl AWSS Score 6,7 Stop: 06/26/20 19:10 Last Admin: 06/01/20 03:15 Dose: 2 mls/min Documented by: Lorazepam (Ativan) 2 mg in 4 mls @ 4 mls/min IV UD PRN; Protocol PRN Reason: EtOH Withdrawl AWSS Score 8,9 Stop: 06/26/20 19:10 Last Admin: 05/31/20 20:56 Dose: 4 mls/min Documented by: Lorazepam (Ativan) 3 mg in 6 mls @ 4 mls/min IV ONCE PRN; Protocol PRN Reason: EtOH Withdrawl AWSS Score >=10 Stop: 06/26/20 19:10 Insulin Aspart (Insulin Aspart 100 Units/Ml 3 Ml Pen) 0 units SC ACHS [facility]; Protocol Stop: 06/26/20 01:59 Last Admin: 06/02/20 13:40 Dose: 2 units Documented by: Insulin Human NPH (Insulin Human Nph) 5 units SC DAILY@0800 [facility]; Protocol Stop: 07/02/20 07:59 Lorazepam (Lorazepam 0.5 Mg Tab) 0.5 mg PO TID PRN PRN Reason: Anxiety Stop: 07/01/20 20:20 Last Admin: 06/02/20 11:11 Dose: 0.5 mg Documented by: Miscellaneous (Carbohydrates For Hypoglycemia ) 15 - 30 gm PO UD PRN PRN Reason: Hypoglycemia Protocol Stop: 06/25/20 23:05 Last Admin: 06/02/20 07:45 Dose: 30 gm Documented by: Miscellaneous Information (Pharmacy Glycemic Mgmt Consult) 1 ea N/A UD PRN; Protocol PRN Reason: Consult Stop: 06/25/20 23:44 Multivitamins (Multivitamin Tab) [facility] [place] Stop: 06/26/20 08:59 Last Admin: 06/02/20 08:38 Dose: 1 tab Documented by: Ondansetron HCl (Ondansetron Inj 2 Mg/Ml 2 Ml Vial) 4 mg IV Q6H PRN PRN Reason: Nausea Stop: 06/25/20 23:05 Pantoprazole Sodium (Pantoprazole 40 Mg Tab) 40 [facility] [place] Stop: 06/26/20 08:59 Last Admin: 06/02/20 08:38 Dose: 40 mg Documented by: Polyethylene Glycol (Polyethylene (Miralax) 17 Gm Pack) 17 gm PO DAILY PRN PRN Reason: Constipation Stop: 06/25/20 23:05 Prednisolone (Prednisolone Syrup 15 Mg/5 Ml Btl) 40 mg PO DAILY [facility] Stop: 06/29/20 08:59 Last Admin: 06/02/20 08:38 Dose: 40 mg Documented by: Thiamine HCl (Thiamine Hcl 100 Mg Tab) 100 mg PO [facility] Stop: 06/26/20 08:59 Last Admin: 06/02/20 08:38 Dose: 100 mg Documented by: (1) Asthma Asthma severity: unspecified severity Asthma persistence: unspecified Asthma complication type: unspecified Qualified Code(s): J45.909 - Unspecified asthma, uncomplicated
--- NOTE | 2020-06-02 15:30 | Pharmacy Report ---
Pharmacy Glycemic Short Note 2 - Date of Service June 02, 2020 - Glycemic Short BSG Results (Last 24 hours): 06/01/20 06/01/20 06/02/20 16:00 20:16 06:18 Glucose 51 L* POC Glucose 101 H 91 06/02/20 06/02/20 06/02/20 07:42 07:44 08:08 Glucose POC Glucose 51 L* 51 L* 75 06/02/20 11:38 Glucose POC Glucose 112 H OUTPATIENT ANTIDIABETIC REGIMEN: * Novolin 70/30 20 units qAM, 10 units qPM * HbA1c: 4.9% (05/27/20) ASSESSMENT: 06/02 * Fasting BSGs have been low yesterday and today. NPH BID dose was decreased yesterday. * Today AM NPH dose was held, then a lower reduced dose was given at noon today. HS dose discontinued. * Post-prandial BSGs have been at or below goal. Novolog CR was loosened today. * Patient continues to get Prednisone 40 mg oral daily. 05/31 * BSGS have been at goal over the last 24 hrs * Fasting BSG 76-87 the last 2 days, will further down titrate the dinnertime NPH dose * Prelunch BSGs have been less than 100 at times, will make small decrease in AM NPH dose * PO intake has been improving PLAN FOR INPATIENT GLYCEMIC CONTROL: * Basal insulin - decrease * NPH 5 units SC w/ lunch * none ordered with dinner due to hypoglycemia this AM. * Bolus insulin - CR loosened * NovoLog per scale ACHS or Q6hrs while NPO * Goal Range: Low 120 mg/dL - High 160 mg/dL * Correction Factor: 30 mg/dL/unit * Nutritional / Prandial insulin per carb ratio of 1 unit per 15 grams CHO consumed PLAN FOR DISCHARGE: * HbA1c of 4.9% suggests very good outpatient glycemic control * BSG at time of presentation on 05/26 was 64 mg/dL * May require dose reduction of home regimen if patient is experiencing hypoglycemia regularly * Will follow inpatient insulin needs and make recommendations accordingly
[2020-06-02] MEDS: ENOXAPARIN INJ 40 MG/0.4 ML SYR SQ SCH (19:53)
[2020-06-03] MEDS: ALBUTEROL HFA 8 GM INHALER INH PRN ×2 (05:32→21:19)
[2020-06-03] MEDS: LORazepam 0.5 MG TAB PO PRN ×3 (06:01→20:27)
[2020-06-03 06:50] LABS: Basophils # (auto) 0.02 K/uL (0-0.2); Basophils % (auto) 0.3 %; Eosinophils # (auto) 0.03 K/uL (0-0.5); Eosinophils % (auto) 0.4 %; Hematocrit (blood only) 33.3 % (37-47); Hemoglobin 10.5 g/dL (12.0-16.0); Immature Granulocytes # (auto) 0.28 K/uL (0.00-0.02); Immature Granulocytes % (auto) 3.9 %; Lymphocytes % (auto) 12.7 %; Mean Corpuscular Hemoglobin 36.1 pg (25-34); Mean Corpuscular Hgb Conc 31.5 g/dL (32-36); Mean Corpuscular Volume 114.4 fL (80-100); Mean Platelet Volume 9.9 fL (7.4-10.4); Monocytes # (auto) 0.49 K/uL (0.11-0.59); Monocytes % (auto) 6.9 %; Neutrophils # (auto) 5.37 K/uL (1.4-6.5); Neutrophils % (auto) 75.8 %; Platelet Count 199 K/uL (130-400); RDW Coefficient of Variation 18.1 % (11.5-14.5); RDW Standard Deviation 76.1 fL (36.4-46.3); Red Blood Count 2.91 M/uL (4.2-5.4); White Blood Count 7.09 K/uL (4.8-10.8)
[2020-06-03 07:18] LABS: Macrocytosis Present; Polychromasia 1+
[2020-06-03 07:28] LABS: Albumin Globulin Ratio 0.5 (0.9-2); Albumin Level 1.7 gm/dl (3.4-5.0); BUN Creatinine Ratio 17.9 (10-20); Calcium 8.3 mg/dl (8.5-10.1); Creatinine Clr Calc Pharmacy 115.7 ml/min; Est GFR (African American) 127.1; Est GFR (Non-African American) 109.7; Globulin 3.2 gm/dl (2.5-4.0); Potassium 3.2 mmol/L (3.5-5.1); Total Protein 4.9 gm/dl (6.4-8.2)
[2020-06-03] MEDS: CARBOHYDRATES FOR HYPOGLYCEMIA PO PRN ×2 (07:30→07:54)
[2020-06-03] MEDS: INSULIN ASPART 100 UNITS/ML 3 ML PEN SC SCH ×4 (08:00→20:45)
[2020-06-03] MEDS ORDERED: POTASSIUM CHLORIDE CRTAB 20 MEQ TABCR PO STA (08:01)
[2020-06-03] MEDS: FLUTICASONE/VILANTEROL 200/25MCG 14 PUFFS/INHALER INH SCH (08:35)
[2020-06-03] MEDS: MULTIVITAMIN TAB PO SCH (08:40)
[2020-06-03] MEDS: prednisoLONE SYRUP 15 MG/5 ML BTL PO SCH (08:40)
[2020-06-03] MEDS: PANTOprazole 40 MG TAB PO SCH (08:40)
[2020-06-03] MEDS: THIAMINE HCL 100 MG TAB PO SCH (08:40)
[2020-06-03] MEDS: FOLIC ACID 1 MG TAB PO SCH (08:40)
[2020-06-03] MEDS: cefTRIAXone SODIUM 2,000 MG in DEXTROSE 5% 50 ML IV SCH (08:45)
--- NOTE | 2020-06-03 14:26 | Hospitalist Progress Note ---
Date of Service June 03, 2020 Assessment & Plan (1) Acute alcoholic hepatitis: With history of alcohol abuse and recurrent withdrawal symptoms Meld score 24 Has been receiving steroid as per GI recommendation Appreciate GI input and recommendation Clinical improvement with steroids. Ceftriaxone for empiric treatment of SBP. No signs of hepatic encephalopathy She has been refusing to go to inpatient rehab Condition critical but stable If deteriorates will need to be transferred to tertiary care center as per GI recommendation Remains stable but critical We will continue prednisone at the current dose for 28 days in total as per GI recommendation Profound weakness and tiredness Has been able to participate in physical therapy Has been participating in PT and OT Not much improvement (2) Acute liver failure: plan as above. Remains profoundly jaundiced with hemoglobin of more than 16 AST remains high and alkaline phos remains high as well If the condition deteriorates will discuss that with milking machine mechanic in [place] Gradually improving-bilirubin is 14 today (3) Coagulopathy: 2/2 liver failure (4) Alcohol withdrawal: Prior history of withdrawal, current withdrawal symptoms are mild. Mentating clearly. Daily alcohol use, 4 glasses of wine daily AWSS protocol Gabapentin course finished, he is now on as needed Ativan Strongly consider inpatient rehabilitation program upon dc. Refusing to go to inpatient rehab No signs and/or symptoms of withdrawal (5) Alcohol abuse: plan as above. (6) Diabetes mellitus type 1: Recently diagnosed 02/2020 secondary to DKA and prior diagnosis of acute pancreatitis Last A1c 5.8, 02/2020, repeat is 4.9 Continue NPH and NovoLog PRN per glycemic pharmacist. Current numbers are well controlled. Glycemic pharmacist adjusting insulin inputs. Blood sugar has been running low (7) Hypoalbuminemia: In setting of malnutrition and alcohol abuse. Prior hospitalist discussed Lasix/albumin with GI physician over the weekend which will not be helpful in the absence of SBP or paracentesis. Advised to continue to try to eat and drink as asked for (8) Asthma: chronic, stable. No acute exacerbation. Continue Advair, as needed albuterol (9) DVT prophylaxis: SCDS/TEDS, Lovenox started as INR less than 2 Full Code Dispo-cont PCU monitoring. She does not want her mother to be called Admission and Anticipated Discharge Date Admission Date: May 26, 2020 Subjective 05/31/2020 The patient was seen and examined in ICU She is a 44-year-old female with significant past medical history of alcohol abuse and dependence, history of recurrent alcohol withdrawal, at home, major depressive disorder, diabetes on insulin was admitted on 26 May with lower leg swelling and jaundice for 2 weeks He has been feeling little better today and denies any abdominal pain and or more distention, no nausea and no vomiting 06/01/2020 The patient was seen and examined in telemetry unit Shee complains to have profound weakness and tiredness Shortness of breath on minimal exertion Denies any pain. No fever and/or chills 06/02/2020 The patient was seen and examined in telemetry unit She remains extremely weak and lethargic Denies any fever and/or chills, any shortness of breath at rest Her abdomen remains distended and she feels bloated 06/03/2020 The patient was seen and examined in telemetry unit She remains extremely weak and lethargic but feels a little better today Denies any more abdominal distention and has been having bowel movement Review of Systems Review of Systems: All systems reviewed and are unremarkable except as noted below Constitutional: + fatigue and + weakness Gastrointestinal: + bloating; no abdominal pain, no nausea and no vomiting Physical Exam Physical Exam: Lying on bed without any apparent distress Constitutional: well developed, well nourished and + ill appearing; no acute distress Eyes: sclerae not anicteric ENMT: external ear and nose normal, oropharynx normal Neck: trachea midline, no thyromegaly Respiratory: normal respiratory effort; no respiratory distress Auscultation: + diminished lung sounds Cardiovascular: Rate/Rhythm: regular rate and regular rhythm Heart Sounds: no murmur Extremities: + edema (1-2+ edema bilaterally) Gastrointestinal (Abdomen): Inspection/Auscultation: + abdomen distended; + abnormal bowel sounds (Sluggish bowel sounds) Percussion/Palpation: + abdomen tender (Minimally tender on palpation mostly over right upper quadrant) and + ascites (Mild ascites clinically); + abdomen not soft Musculoskeletal: No acute arthritis in any joint Neurologic: Extremely weak and lethargic but otherwise alert, awake and oriented Psychiatric: A+Ox3, euthymic affect Lymphatic: no cervical or axillary lymphadenopathy Results & Data Results & Data ([facility]) Vital Signs (Past 12 Hours) Vital Signs Temp Pulse Resp BP Pulse Ox 06/03/20 11:30 37.0 C 89 20 100/65 92 06/03/20 07:45 36.8 C 94 H 18 99/70 L 100 06/03/20 05:32 68 18 97 06/03/20 04:40 36.4 C L 74 18 104/68 95 Laboratory Results Short CBC 06/03/20 Range/Units 06:26 WBC 7.09 (4.8-10.8) K/uL Hgb 10.5 L (12.0-16.0) g/dL Hct 33.3 L (37-47) % Plt Count 199 (130-400) K/uL BMP 06/03/20 06:26 Sodium 139 Potassium 3.2 L Chloride 106 Carbon Dioxide 26 BUN 11 Creatinine 0.62 Glucose 78 Calcium 8.3 L Liver Function 06/03/20 Range/Units 06:26 Total Bilirubin 14.0 H (0.2-1) mg/dl AST 139 H (15-37) U/L ALT 53 (12-78) U/L Alkaline Phosphatase 206 H (45-117) U/L Albumin 1.7 L (3.4-5.0) gm/dl Medications Administered Current Inpatient Medications Albuterol (Albuterol Hfa 8 Gm Inhaler) 2 puffs INH Q6H PRN PRN Reason: Shortness Of Breath Stop: 06/25/20 23:05 Last Admin: 06/03/20 05:32 Dose: 2 puffs Documented by: Dextrose (Dextrose 50% 50 Ml Syringe) 25 - 50 ml IV UD PRN; Protocol PRN Reason: Hypoglycemia Protocol Stop: 06/25/20 23:05 Enoxaparin Sodium (Enoxaparin Inj 40 Mg/0.4 Ml Syr) 40 mg SQ HS [facility] Stop: 06/29/20 20:59 Last Admin: 06/02/20 19:53 Dose: 40 mg Documented by: Fluticasone/Vilanterol (Fluticasone/Vilanterol 200/25mcg 14 Puffs/Inhaler) 1 puffs INH DAILY [facility] Stop: 06/26/20 08:59 Last Admin: 06/03/20 08:35 Dose: 1 puffs Documented by: Folic Acid (Folic Acid 1 Mg Tab) 1 mg PO QAM [facility] Stop: 06/26/20 08:59 Last Admin: 06/03/20 08:40 Dose: 1 mg Documented by: Glucagon (Glucagon For Inj 1 Mg Vial) 1 mg SQ UD PRN; Protocol PRN Reason: Hypoglycemia Protocol Stop: 06/25/20 23:05 Glucose (Glucose 10 Tabs/Tube) 4 - 8 tabs PO UD PRN; Protocol PRN Reason: Hypoglycemia Protocol Stop: 06/25/20 23:05 Glucose (Glucose 40% Gel 15 Gm Tube) 15 - 30 gm PO UD PRN; Protocol PRN Reason: Hypoglycemia Protocol Stop: 06/25/20 23:05 Ceftriaxone Sodium 2,000 mg/ (Dextrose) 70 mls @ 100 mls/hr IV Q24H [facility]; Protocol Stop: 06/06/20 08:59 Last Infusion: 06/03/20 09:43 Dose: Infused Documented by: Lorazepam (Ativan) 1 mg in 2 mls @ 2 mls/min IV UD PRN; Protocol PRN Reason: EtOH Withdrawl AWSS Score 6,7 Stop: 06/26/20 19:10 Last Admin: 06/01/20 03:15 Dose: 2 mls/min Documented by: Lorazepam (Ativan) 2 mg in 4 mls @ 4 mls/min IV UD PRN; Protocol PRN Reason: EtOH Withdrawl AWSS Score 8,9 Stop: 06/26/20 19:10 Last Admin: 05/31/20 20:56 Dose: 4 mls/min Documented by: Lorazepam (Ativan) 3 mg in 6 mls @ 4 mls/min IV ONCE PRN; Protocol PRN Reason: EtOH Withdrawl AWSS Score >=10 Stop: 06/26/20 19:10 Insulin Aspart (Insulin Aspart 100 Units/Ml 3 Ml Pen) 0 units SC ACHS [facility]; Protocol Stop: 06/26/20 01:59 Last Admin: 06/03/20 12:24 Dose: 1 units Documented by: Lorazepam (Lorazepam 0.5 Mg Tab) 0.5 mg PO TID PRN PRN Reason: Anxiety Stop: 07/01/20 20:20 Last Admin: 06/03/20 12:24 Dose: 0.5 mg Documented by: Miscellaneous (Carbohydrates For Hypoglycemia ) 15 - 30 gm PO UD PRN PRN Reason: Hypoglycemia Protocol Stop: 06/25/20 23:05 Last Admin: 06/02/20 07:45 Dose: 30 gm Documented by: Miscellaneous Information (Pharmacy Glycemic Mgmt Consult) 1 ea N/A UD PRN; Protocol PRN Reason: Consult Stop: 06/25/20 23:44 Multivitamins (Multivitamin Tab) 1 tab PO [facility] Stop: 06/26/20 08:59 Last Admin: 06/03/20 08:40 Dose: 1 tab Documented by: Ondansetron HCl (Ondansetron Inj 2 Mg/Ml 2 Ml Vial) 4 mg IV Q6H PRN PRN Reason: Nausea Stop: 06/25/20 23:05 Pantoprazole Sodium (Pantoprazole 40 Mg Tab) [facility] Stop: 06/26/20 08:59 Last Admin: 06/03/20 08:40 Dose: 40 mg Documented by: Polyethylene Glycol (Polyethylene (Miralax) 17 Gm Pack) 17 gm PO DAILY PRN PRN Reason: Constipation Stop: 06/25/20 23:05 Prednisolone (Prednisolone Syrup 15 Mg/5 Ml Btl) 40 mg PO DAILY [facility] Stop: 06/29/20 08:59 Last Admin: 06/03/20 08:40 Dose: 40 mg Documented by: Thiamine HCl (Thiamine Hcl 100 Mg Tab) 100 mg PO QAM [facility] Stop: 06/26/20 08:59 Last Admin: 06/03/20 08:40 Dose: 100 mg Documented by: (1) Asthma Asthma severity: unspecified severity Asthma persistence: unspecified Asthma complication type: unspecified Qualified Code(s): J45.909 - Unspecified asthma, uncomplicated
--- NOTE | 2020-06-03 14:41 | Pharmacy Report ---
Pharmacy Glycemic Short Note 2 - Date of Service June 03, 2020 - Glycemic Short BSG Results (Last 24 hours): 06/02/20 06/02/20 06/03/20 16:18 20:15 06:26 Glucose 78 POC Glucose 121 H 116 H 06/03/20 06/03/20 06/03/20 07:28 07:29 07:43 Glucose POC Glucose 60 L* 66 L* 63 L* 06/03/20 06/03/20 08:09 11:22 Glucose POC Glucose 125 H 108 H OUTPATIENT ANTIDIABETIC REGIMEN: * Novolin 70/30 20 units qAM, 10 units qPM * HbA1c: 4.9% (05/27/20) ASSESSMENT: 06/03 * Patient received total of 8 units of insulin yesterday: 5 units of basal NPH and 3 units of bolus Novolog. * Fasting BSG was again low today at 60 mg/dl. NPH dose held for this AM. Will re-assess this at dinnertime. * Continued current Novolog parameters. Pre-lunch BSG was 108 mg/dl today. * Prednisone 40 mg PO daily continues. 06/02 * Fasting BSGs have been low yesterday and today. NPH BID dose was decreased yesterday. * Today AM NPH dose was held, then a lower reduced dose was given at noon today. HS dose discontinued. * Post-prandial BSGs have been at or below goal. Novolog CR was loosened today. * Patient continues to get Prednisone 40 mg oral daily. PLAN FOR INPATIENT GLYCEMIC CONTROL: * Basal insulin - held * none ordered with this AM due to hypoglycemia this AM. Re-assess at dinner- time. * Bolus insulin - continued * NovoLog per scale ACHS or Q6hrs while NPO * Goal Range: Low 120 mg/dL - High 160 mg/dL * Correction Factor: 30 mg/dL/unit * Nutritional / Prandial insulin per carb ratio of 1 unit per 15 grams CHO consumed PLAN FOR DISCHARGE: * HbA1c of 4.9% suggests very good outpatient glycemic control * BSG at time of presentation on 05/26 was 64 mg/dL * Patient may only need Novolin 70/30 insulin 5-10 units once daily in the morning before breakfast if her food intake is minimal. * Recommend close follow up with outpatient provider and dose adjustment to avoid hypoglycemia.
[2020-06-03] MEDS: INSULIN HUMAN NPH SC SCH (17:24)
[2020-06-03] MEDS: ENOXAPARIN INJ 40 MG/0.4 ML SYR SQ SCH (20:26)
[2020-06-04] MEDS: MULTIVITAMIN TAB PO SCH (08:42)
[2020-06-04] MEDS: PANTOprazole 40 MG TAB PO SCH (08:42)
[2020-06-04] MEDS: FLUTICASONE/VILANTEROL 200/25MCG 14 PUFFS/INHALER INH SCH (08:43)
[2020-06-04] MEDS: FOLIC ACID 1 MG TAB PO SCH (08:43)
[2020-06-04] MEDS: prednisoLONE SYRUP 15 MG/5 ML BTL PO SCH (08:43)
[2020-06-04] MEDS: THIAMINE HCL 100 MG TAB PO SCH (08:43)
[2020-06-04] MEDS: cefTRIAXone SODIUM 2,000 MG in DEXTROSE 5% 50 ML IV SCH (08:56)
[2020-06-04] MEDS: INSULIN ASPART 100 UNITS/ML 3 ML PEN SC SCH ×4 (09:25→20:16)
--- NOTE | 2020-06-04 10:22 | Hospitalist Progress Note ---
Date of Service June 04, 2020 Assessment & Plan (1) Acute alcoholic hepatitis: With history of alcohol abuse and recurrent withdrawal symptoms Meld score 24 Has been receiving steroid as per GI recommendation Appreciate GI input and recommendation Clinical improvement with steroids. Ceftriaxone for empiric treatment of SBP. No signs of hepatic encephalopathy She has been refusing to go to inpatient rehab Condition critical but stable If deteriorates will need to be transferred to tertiary care center as per GI recommendation Remains stable but critical We will continue prednisone at the current dose for 28 days in total as per GI recommendation A little better today Profound weakness and tiredness Has been able to participate in physical therapy Has been participating in PT and OT Not much improvement-we will continue with PT and OT (2) Acute liver failure: plan as above. Remains profoundly jaundiced with hemoglobin of more than 16 AST remains high and alkaline phos remains high as well If the condition deteriorates will discuss that with transaction coordinator in [place] Will check comprehensive metabolic panel tomorrow (3) Coagulopathy: 2/2 liver failure (4) Alcohol withdrawal: Prior history of withdrawal, current withdrawal symptoms are mild. Mentating clearly. Daily alcohol use, 4 glasses of wine daily AWSS protocol Gabapentin course finished, he is now on as needed Ativan Strongly consider inpatient rehabilitation program upon dc. Refusing to go to inpatient rehab No signs and/or symptoms of withdrawal (5) Alcohol abuse: plan as above. (6) Diabetes mellitus type 1: Recently diagnosed 02/2020 secondary to DKA and prior diagnosis of acute pancreatitis Last A1c 5.8, 02/2020, repeat is 4.9 Continue NPH and NovoLog PRN per glycemic pharmacist. Current numbers are well controlled. Glycemic pharmacist adjusting insulin inputs. Blood sugar has been running low (7) Hypoalbuminemia: In setting of malnutrition and alcohol abuse. Prior hospitalist discussed Lasix/albumin with GI physician over the weekend which will not be helpful in the absence of SBP or paracentesis. Advised to continue to try to eat and drink as asked for (8) Asthma: chronic, stable. No acute exacerbation. Continue Advair, as needed albuterol (9) DVT prophylaxis: SCDS/TEDS, Lovenox started as INR less than 2 Full Code Dispo-cont PCU monitoring. She does not want her mother to be called Admission and Anticipated Discharge Date Admission Date: May 26, 2020 Subjective 05/31/2020 The patient was seen and examined in ICU She is a 44-year-old female with significant past medical history of alcohol abuse and dependence, history of recurrent alcohol withdrawal, at home, major depressive disorder, diabetes on insulin was admitted on 26 May with lower leg swelling and jaundice for 2 weeks He has been feeling little better today and denies any abdominal pain and or more distention, no nausea and no vomiting 06/01/2020 The patient was seen and examined in telemetry unit Shee complains to have profound weakness and tiredness Shortness of breath on minimal exertion Denies any pain. No fever and/or chills 06/02/2020 The patient was seen and examined in telemetry unit She remains extremely weak and lethargic Denies any fever and/or chills, any shortness of breath at rest Her abdomen remains distended and she feels bloated 06/03/2020 The patient was seen and examined in telemetry unit She remains extremely weak and lethargic but feels a little better today Denies any more abdominal distention and has been having bowel movement 06/04/2020 The patient was seen and examined in telemetry unit She remains extremely weak and lethargic but feels a little better today Denies any abdominal distention, nausea and or vomiting Has been voiding and moving bowels Review of Systems Review of Systems: All systems reviewed and are unremarkable except as noted below Constitutional: + fatigue and + weakness Gastrointestinal: + bloating; no abdominal pain, no nausea and no vomiting Physical Exam Physical Exam: Lying on bed without any apparent distress Constitutional: well developed, well nourished and + ill appearing; no acute distress Eyes: sclerae not anicteric ENMT: external ear and nose normal, oropharynx normal Neck: trachea midline, no thyromegaly Respiratory: normal respiratory effort; no respiratory distress Auscultation: + diminished lung sounds Cardiovascular: Rate/Rhythm: regular rate and regular rhythm Heart Sounds: no murmur Extremities: + edema (1-2+ edema bilaterally) Gastrointestinal (Abdomen): Inspection/Auscultation: + abdomen distended; + abnormal bowel sounds (Sluggish bowel sounds) Percussion/Palpation: + abdomen tender (Minimally tender on palpation mostly over right upper quadrant) and + ascites (Mild ascites clinically); + abdomen not soft Musculoskeletal: No acute arthritis in any joint Neurologic: Alert, awake and oriented x3. No focal neuro deficit appreciated but remains generally weak and lethargic Psychiatric: A+Ox3, euthymic affect Lymphatic: no cervical or axillary lymphadenopathy Results & Data Results & Data ([facility]) Vital Signs (Past 12 Hours) Vital Signs Temp Pulse Resp BP BP Pulse Ox 06/04/20 07:36 36.8 C 83 18 102/69 96 06/04/20 04:44 93/55 L 06/04/20 03:26 36.7 C 77 16 86/47 L 94 06/03/20 23:38 36.8 C 76 16 92/54 L 94 Medications Administered Current Inpatient Medications Albuterol (Albuterol Hfa 8 Gm Inhaler) 2 puffs INH Q6H PRN PRN Reason: Shortness Of Breath Stop: 06/25/20 23:05 Last Admin: 06/03/20 21:19 Dose: 2 puffs Documented by: Dextrose (Dextrose 50% 50 Ml Syringe) 25 - 50 ml IV UD PRN; Protocol PRN Reason: Hypoglycemia Protocol Stop: 06/25/20 23:05 Enoxaparin Sodium (Enoxaparin Inj 40 Mg/0.4 Ml Syr) 40 mg SQ HS [facility] Stop: 06/29/20 20:59 Last Admin: 06/03/20 20:26 Dose: 40 mg Documented by: Fluticasone/Vilanterol (Fluticasone/Vilanterol 200/25mcg 14 Puffs/Inhaler) 1 puffs INH DAILY [facility] Stop: 06/26/20 08:59 Last Admin: 06/04/20 08:43 Dose: 1 puffs Documented by: Folic Acid (Folic Acid 1 Mg Tab) 1 mg PO QAM [facility] Stop: 06/26/20 08:59 Last Admin: 06/04/20 08:43 Dose: 1 mg Documented by: Glucagon (Glucagon For Inj 1 Mg Vial) 1 mg SQ UD PRN; Protocol PRN Reason: Hypoglycemia Protocol Stop: 06/25/20 23:05 Glucose (Glucose 10 Tabs/Tube) 4 - 8 tabs PO UD PRN; Protocol PRN Reason: Hypoglycemia Protocol Stop: 06/25/20 23:05 Glucose (Glucose 40% Gel 15 Gm Tube) 15 - 30 gm PO UD PRN; Protocol PRN Reason: Hypoglycemia Protocol Stop: 06/25/20 23:05 Ceftriaxone Sodium 2,000 mg/ (Dextrose) 70 mls @ 100 mls/hr IV Q24H [facility]; Protocol Stop: 06/06/20 08:59 Last Infusion: 06/04/20 09:42 Dose: Infused Documented by: Lorazepam (Ativan) 1 mg in 2 mls @ 2 mls/min IV UD PRN; Protocol PRN Reason: EtOH Withdrawl AWSS Score 6,7 Stop: 06/26/20 19:10 Last Admin: 06/01/20 03:15 Dose: 2 mls/min Documented by: Lorazepam (Ativan) 2 mg in 4 mls @ 4 mls/min IV UD PRN; Protocol PRN Reason: EtOH Withdrawl AWSS Score 8,9 Stop: 06/26/20 19:10 Last Admin: 05/31/20 20:56 Dose: 4 mls/min Documented by: Lorazepam (Ativan) 3 mg in 6 mls @ 4 mls/min IV ONCE PRN; Protocol PRN Reason: EtOH Withdrawl AWSS Score >=10 Stop: 06/26/20 19:10 Insulin Aspart (Insulin Aspart 100 Units/Ml 3 Ml Pen) 0 units SC ACHS [facility]; Protocol Stop: 06/26/20 01:59 Last Admin: 06/04/20 09:25 Dose: Not Given Documented by: Insulin Human NPH (Insulin Human Nph) 5 units SC DAILY@1700 [facility]; Protocol Stop: 07/03/20 17:29 Last Admin: 06/03/20 17:24 Dose: 5 units Documented by: Lorazepam (Lorazepam 0.5 Mg Tab) 0.5 mg PO TID PRN PRN Reason: Anxiety Stop: 07/01/20 20:20 Last Admin: 06/03/20 20:27 Dose: 0.5 mg Documented by: Miscellaneous (Carbohydrates For Hypoglycemia ) 15 - 30 gm PO UD PRN PRN Reason: Hypoglycemia Protocol Stop: 06/25/20 23:05 Last Admin: 06/03/20 07:54 Dose: 15 gm Documented by: Miscellaneous Information (Pharmacy Glycemic Mgmt Consult) 1 ea N/A UD PRN; Protocol PRN Reason: Consult Stop: 06/25/20 23:44 Multivitamins ([facility]amin Tab) [facility] Stop: 06/26/20 08:59 Last Admin: 06/04/20 08:42 Dose: 1 tab Documented by: Ondansetron HCl (Ondansetron Inj 2 Mg/Ml 2 Ml Vial) 4 mg IV Q6H PRN PRN Reason: Nausea Stop: 06/25/20 23:05 Pantoprazole Sodium (Pantoprazole 40 Mg Tab) 40 mg PO QAM [facility] Stop: 06/26/20 08:59 Last Admin: 06/04/20 08:42 Dose: 40 mg Documented by: Polyethylene Glycol (Polyethylene (Miralax) 17 Gm Pack) 17 gm PO DAILY PRN PRN Reason: Constipation Stop: 06/25/20 23:05 Prednisolone (Prednisolone Syrup 15 Mg/5 Ml Btl) 40 mg PO DAILY [facility] Stop: 06/29/20 08:59 Last Admin: 06/04/20 08:43 Dose: 40 mg Documented by: Thiamine HCl (Thiamine Hcl 100 Mg Tab) 100 mg PO QAM [facility] Stop: 06/26/20 08:59 Last Admin: 06/04/20 08:43 Dose: 100 mg Documented by: (1) Asthma Asthma severity: unspecified severity Asthma persistence: unspecified Asthma complication type: unspecified Qualified Code(s): J45.909 - Unspecified asthma, uncomplicated
[2020-06-04] MEDS: INSULIN HUMAN NPH SC SCH (17:05)
[2020-06-04] MEDS: ENOXAPARIN INJ 40 MG/0.4 ML SYR SQ SCH (20:15)
[2020-06-04] MEDS: LORazepam 0.5 MG TAB PO PRN (20:15)
[2020-06-04] MEDS: ALBUTEROL HFA 8 GM INHALER INH PRN (20:51)
[2020-06-05] MEDS: FLUTICASONE/VILANTEROL 200/25MCG 14 PUFFS/INHALER INH SCH (07:38)
[2020-06-05 07:52] LABS: Basophils # (auto) 0.01 K/uL (0-0.2); Basophils % (auto) 0.2 %; Eosinophils # (auto) 0.04 K/uL (0-0.5); Eosinophils % (auto) 0.7 %; Hematocrit (blood only) 33.1 % (37-47); Hemoglobin 10.3 g/dL (12.0-16.0); Immature Granulocytes # (auto) 0.16 K/uL (0.00-0.02); Immature Granulocytes % (auto) 2.6 %; Lymphocytes # (auto) 0.74 K/uL (1.2-3.4); Lymphocytes % (auto) 12.2 %; Mean Corpuscular Hemoglobin 36.3 pg (25-34); Mean Corpuscular Hgb Conc 31.1 g/dL (32-36); Mean Corpuscular Volume 116.5 fL (80-100); Mean Platelet Volume 10.3 fL (7.4-10.4); Monocytes # (auto) 0.39 K/uL (0.11-0.59); Monocytes % (auto) 6.4 %; Neutrophils # (auto) 4.75 K/uL (1.4-6.5); Neutrophils % (auto) 77.9 %; Platelet Count 178 K/uL (130-400); RDW Coefficient of Variation 17.9 % (11.5-14.5); RDW Standard Deviation 75.7 fL (36.4-46.3); Red Blood Count 2.84 M/uL (4.2-5.4); White Blood Count 6.09 K/uL (4.8-10.8)
[2020-06-05 08:05] LABS: INR 1.4 (0.9-1.1); Prothrombin Time 14.2 Seconds (9.0-12.0)
[2020-06-05 08:33] LABS: Albumin Globulin Ratio 0.6 (0.9-2); Albumin Level 1.7 gm/dl (3.4-5.0); BUN Creatinine Ratio 16.1 (10-20); Bilirubin,Total 11.8 mg/dl (0.2-1); Calcium 8.7 mg/dl (8.5-10.1); Creatinine Clr Calc Pharmacy 112.1 ml/min; Est GFR (African American) 125.8; Est GFR (Non-African American) 108.5; Globulin 3.1 gm/dl (2.5-4.0); Potassium 3.5 mmol/L (3.5-5.1); Total Protein 4.8 gm/dl (6.4-8.2)
[2020-06-05] MEDS: LORazepam 0.5 MG TAB PO PRN ×2 (08:43→21:05)
[2020-06-05] MEDS: FOLIC ACID 1 MG TAB PO SCH (08:44)
[2020-06-05] MEDS: PANTOprazole 40 MG TAB PO SCH (08:44)
[2020-06-05] MEDS: MULTIVITAMIN TAB PO SCH (08:44)
[2020-06-05] MEDS: THIAMINE HCL 100 MG TAB PO SCH (08:44)
[2020-06-05] MEDS: prednisoLONE SYRUP 15 MG/5 ML BTL PO SCH (08:44)
[2020-06-05] MEDS: INSULIN ASPART 100 UNITS/ML 3 ML PEN SC SCH ×4 (08:46→21:10)
[2020-06-05] MEDS: cefTRIAXone SODIUM 2,000 MG in DEXTROSE 5% 50 ML IV SCH (09:37)
[2020-06-05 09:44] LABS: Hypochromasia Present; Macrocytosis Present
[2020-06-05] MEDS ORDERED: INSULIN HUMAN NPH SC ONE ×2 (11:30)
[2020-06-05] MEDS: ALBUTEROL HFA 8 GM INHALER INH PRN (12:37)
--- NOTE | 2020-06-05 13:07 | Pharmacy Report ---
Pharmacy Glycemic Short Note 2 - Date of Service June 05, 2020 - Glycemic Short BSG Results (Last 24 hours): 06/04/20 06/04/20 06/05/20 16:26 20:14 07:12 Glucose 69 L POC Glucose 162 H 86 06/05/20 06/05/20 08:05 11:41 Glucose POC Glucose 83 125 H OUTPATIENT ANTIDIABETIC REGIMEN: * Novolin 70/30 20 units qAM, 10 units qPM * HbA1c: 4.9% (05/27/20) ASSESSMENT: 06/05 * Over the last 24 hrs, 8 units SQ insulin have been administered - patient is eating small quantities of carbs at meals * Mild fasting hypoglycemia noted on today's chemistry, fingerstick BSG 83 however. This was w/ 5 units NPH on board from dinner-time yesterday. Will continue the same dose of NPH however transition dosing time to w/ breakfast. Today's dose will be given w/ lunch. * Post-prandial BSGs managed appropriately with current Novolog CF/CR - no changes 06/03 * Patient received total of 8 units of insulin yesterday: 5 units of basal NPH and 3 units of bolus Novolog. * Fasting BSG was again low today at 60 mg/dl. NPH dose held for this AM. Will re-assess this at dinnertime. * Continued current Novolog parameters. Pre-lunch BSG was 108 mg/dl today. * Prednisone 40 mg PO daily continues. 06/02 * Fasting BSGs have been low yesterday and today. NPH BID dose was decreased yesterday. * Today AM NPH dose was held, then a lower reduced dose was given at noon today. HS dose discontinued. * Post-prandial BSGs have been at or below goal. Novolog CR was loosened today. * Patient continues to get Prednisone 40 mg oral daily. PLAN FOR INPATIENT GLYCEMIC CONTROL: * Basal insulin - * NPH 5 units w/ lunch today, then 5 units daily w/ breakfast * Bolus insulin - continued * NovoLog per scale ACHS or Q6hrs while NPO * Goal Range: Low 120 mg/dL - High 160 mg/dL * Correction Factor: 30 mg/dL/unit * Nutritional / Prandial insulin per carb ratio of 1 unit per 15 grams CHO consumed PLAN FOR DISCHARGE: * HbA1c of 4.9% suggests patient may be experiencing hypoglycemia in the outpt setting * BSG at time of presentation on 05/26 was 64 mg/dL * Patient may only need Novolin 70/30 insulin 5-10 units once daily in the morning before breakfast if her food intake is minimal. * Recommend close follow up with outpatient provider and dose adjustment to avoid hypoglycemia.
--- NOTE | 2020-06-05 13:53 | Hospitalist Progress Note ---
Date of Service June 05, 2020 Assessment & Plan (1) Acute alcoholic hepatitis: With history of alcohol abuse and recurrent withdrawal symptoms Meld score 24 Has been receiving steroid as per GI recommendation Appreciate GI input and recommendation Clinical improvement with steroids. Ceftriaxone for empiric treatment of SBP. No signs of hepatic encephalopathy She has been refusing to go to inpatient rehab Condition critical but stable If deteriorates will need to be transferred to tertiary care center as per GI recommendation Remains stable but critical We will continue prednisone at the current dose for 28 days in total as per GI recommendation Much better today Profound weakness and tiredness Has been able to participate in physical therapy Has been participating in PT and OT Not much improvement-we will continue with PT and OT Advised to continue PT/OT (2) Acute liver failure: plan as above. Remains profoundly jaundiced with hemoglobin of more than 16 AST remains high and alkaline phos remains high as well If the condition deteriorates will discuss that with lacquer mixer in [place] Will check comprehensive metabolic panel tomorrow A little better today (3) Coagulopathy: 2/2 liver failure (4) Alcohol withdrawal: Prior history of withdrawal, current withdrawal symptoms are mild. Mentating clearly. Daily alcohol use, 4 glasses of wine daily AWSS protocol Gabapentin course finished, he is now on as needed Ativan Strongly consider inpatient rehabilitation program upon dc. Refusing to go to inpatient rehab No signs and/or symptoms of withdrawal (5) Alcohol abuse: plan as above. (6) Diabetes mellitus type 1: Recently diagnosed 02/2020 secondary to DKA and prior diagnosis of acute pancreatitis Last A1c 5.8, 02/2020, repeat is 4.9 Continue NPH and NovoLog PRN per glycemic pharmacist. Current numbers are well controlled. Glycemic pharmacist adjusting insulin inputs. Blood sugar has been running low (7) Hypoalbuminemia: In setting of malnutrition and alcohol abuse. Prior hospitalist discussed Lasix/albumin with GI physician over the weekend which will not be helpful in the absence of SBP or paracentesis. Advised to continue to try to eat and drink as asked for (8) Asthma: chronic, stable. No acute exacerbation. Continue Advair, as needed albuterol (9) DVT prophylaxis: SCDS/TEDS, Lovenox started as INR less than 2 Full Code Dispo-cont PCU monitoring. She does not want her mother to be called Admission and Anticipated Discharge Date Admission Date: May 26, 2020 Subjective 05/31/2020 The patient was seen and examined in ICU She is a 44-year-old female with significant past medical history of alcohol abuse and dependence, history of recurrent alcohol withdrawal, at home, major depressive disorder, diabetes on insulin was admitted on 26 May with lower leg swelling and jaundice for 2 weeks He has been feeling little better today and denies any abdominal pain and or more distention, no nausea and no vomiting 06/01/2020 The patient was seen and examined in telemetry unit Shee complains to have profound weakness and tiredness Shortness of breath on minimal exertion Denies any pain. No fever and/or chills 06/02/2020 The patient was seen and examined in telemetry unit She remains extremely weak and lethargic Denies any fever and/or chills, any shortness of breath at rest Her abdomen remains distended and she feels bloated 06/03/2020 The patient was seen and examined in telemetry unit She remains extremely weak and lethargic but feels a little better today Denies any more abdominal distention and has been having bowel movement 06/04/2020 The patient was seen and examined in telemetry unit She remains extremely weak and lethargic but feels a little better today Denies any abdominal distention, nausea and or vomiting Has been voiding and moving bowels 06/05/2020 Doing much better today Remains weak and lethergic Review of Systems Review of Systems: All systems reviewed and are unremarkable except as noted below Constitutional: + fatigue and + weakness Gastrointestinal: + bloating; no abdominal pain, no nausea and no vomiting Physical Exam Physical Exam: Lying on bed without any apparent distress Constitutional: well developed, well nourished and + ill appearing; no acute distress Eyes: sclerae not anicteric ENMT: external ear and nose normal, oropharynx normal Neck: trachea midline, no thyromegaly Respiratory: normal respiratory effort; no respiratory distress Auscultation: + diminished lung sounds Cardiovascular: Rate/Rhythm: regular rate and regular rhythm Heart Sounds: no murmur Extremities: + edema (1-2+ edema bilaterally) Gastrointestinal (Abdomen): Inspection/Auscultation: + abdomen distended; + abnormal bowel sounds (Sluggish bowel sounds) Percussion/Palpation: + abdomen tender (Minimally tender on palpation mostly over right upper quadrant) and + ascites (Mild ascites clinically); + abdomen not soft Musculoskeletal: No acute arthritis Psychiatric: A+Ox3, euthymic affect Lymphatic: no cervical or axillary lymphadenopathy Results & Data Results & Data ([facility]) Vital Signs (Past 12 Hours) Vital Signs Temp Pulse Resp BP BP Pulse Ox 06/05/20 12:37 88 18 91 06/05/20 11:43 36.9 C 79 18 96/61 L 91 06/05/20 07:36 37.5 C 82 18 110/71 95 06/05/20 03:39 36.9 C 73 16 93/56 L 95 Laboratory Results Short CBC 06/05/20 Range/Units 07:12 WBC 6.09 (4.8-10.8) K/uL Hgb 10.3 L (12.0-16.0) g/dL Hct 33.1 L (37-47) % Plt Count 178 (130-400) K/uL BMP 06/05/20 07:12 Sodium 140 Potassium 3.5 Chloride 106 Carbon Dioxide 27 BUN 10 Creatinine 0.64 Glucose 69 L Calcium 8.7 Liver Function 06/05/20 Range/Units 07:12 Total Bilirubin 11.8 H (0.2-1) mg/dl AST 145 H (15-37) U/L ALT 59 (12-78) U/L Alkaline Phosphatase 178 H (45-117) U/L Albumin 1.7 L (3.4-5.0) gm/dl Medications Administered Current Inpatient Medications Albuterol (Albuterol Hfa 8 Gm Inhaler) 2 puffs INH Q6H PRN PRN Reason: Shortness Of Breath Stop: 06/25/20 23:05 Last Admin: 06/05/20 12:37 Dose: 2 puffs Documented by: Dextrose (Dextrose 50% 50 Ml Syringe) 25 - 50 ml IV UD PRN; Protocol PRN Reason: Hypoglycemia Protocol Stop: 06/25/20 23:05 Enoxaparin Sodium (Enoxaparin Inj 40 Mg/0.4 Ml Syr) 40 mg SQ HS [facility] Stop: 06/29/20 20:59 Last Admin: 06/04/20 20:15 Dose: 40 mg Documented by: Fluticasone/Vilanterol (Fluticasone/Vilanterol 200/25mcg 14 Puffs/Inhaler) 1 puffs INH DAILY [facility] Stop: 06/26/20 08:59 Last Admin: 06/05/20 07:38 Dose: 1 puffs Documented by: Folic Acid (Folic Acid 1 Mg Tab) 1 mg PO QAM [facility] Stop: 06/26/20 08:59 Last Admin: 06/05/20 08:44 Dose: 1 mg Documented by: Glucagon (Glucagon For Inj 1 Mg Vial) 1 mg SQ UD PRN; Protocol PRN Reason: Hypoglycemia Protocol Stop: 06/25/20 23:05 Glucose (Glucose 10 Tabs/Tube) 4 - 8 tabs PO UD PRN; Protocol PRN Reason: Hypoglycemia Protocol Stop: 06/25/20 23:05 Glucose (Glucose 40% Gel 15 Gm Tube) 15 - 30 gm PO UD PRN; Protocol PRN Reason: Hypoglycemia Protocol Stop: 06/25/20 23:05 Ceftriaxone Sodium 2,000 mg/ (Dextrose) 70 mls @ 100 mls/hr IV Q24H [facility]; Protocol Stop: 06/06/20 08:59 Last Infusion: 06/05/20 11:46 Dose: Infused Documented by: Lorazepam (Ativan) 1 mg in 2 mls @ 2 mls/min IV UD PRN; Protocol PRN Reason: EtOH Withdrawl AWSS Score 6,7 Stop: 06/26/20 19:10 Last Admin: 06/01/20 03:15 Dose: 2 mls/min Documented by: Insulin Aspart (Insulin Aspart 100 Units/Ml 3 Ml Pen) 0 units SC ACHS [facility]; Protocol Stop: 06/26/20 01:59 Last Admin: 06/05/20 17:29 Dose: Not Given Documented by: Insulin Human NPH (Insulin Human Nph) 5 units SC DAILY@0730 [facility]; Protocol Stop: 07/06/20 07:29 Lorazepam (Lorazepam 0.5 Mg Tab) 0.5 mg PO TID PRN PRN Reason: Anxiety Stop: 07/01/20 20:20 Last Admin: 06/05/20 08:43 Dose: 0.5 mg Documented by: Miscellaneous (Carbohydrates For Hypoglycemia ) 15 - 30 gm PO UD PRN PRN Reason: Hypoglycemia Protocol Stop: 06/25/20 23:05 Last Admin: 06/03/20 07:54 Dose: 15 gm Documented by: Miscellaneous Information (Pharmacy Glycemic Mgmt Consult) 1 ea N/A UD PRN; Protocol PRN Reason: Consult Stop: 06/25/20 23:44 Multivitamins ([facility]ivitamin Tab) [facility] Stop: 06/26/20 08:59 Last Admin: 06/05/20 08:44 Dose: 1 tab Documented by: Ondansetron HCl (Ondansetron Inj 2 Mg/Ml 2 Ml Vial) 4 mg IV Q6H PRN PRN Reason: Nausea Stop: 06/25/20 23:05 Pantoprazole Sodium (Pantoprazole 40 Mg Tab) [facility] Stop: 06/26/20 08:59 Last Admin: 06/05/20 08:44 Dose: 40 mg Documented by: Polyethylene Glycol (Polyethylene (Miralax) 17 Gm Pack) 17 gm PO DAILY PRN PRN Reason: Constipation Stop: 06/25/20 23:05 Prednisolone (Prednisolone Syrup 15 Mg/5 Ml Btl) 40 mg PO DAILY [facility] Stop: 06/29/20 08:59 Last Admin: 06/05/20 08:44 Dose: 40 mg Documented by: Thiamine HCl (Thiamine Hcl 100 Mg Tab) 100 mg PO [facility] Stop: 06/26/20 08:59 Last Admin: 06/05/20 08:44 Dose: 100 mg Documented by: (1) Asthma Asthma complication type: unspecified Asthma persistence: unspecified Asthma severity: unspecified severity Qualified Code(s): J45.909 - Unspecified asthma, uncomplicated
[2020-06-05] MEDS: ENOXAPARIN INJ 40 MG/0.4 ML SYR SQ SCH (21:03)
[2020-06-06] MEDS: MULTIVITAMIN TAB PO SCH (08:11)
[2020-06-06] MEDS: THIAMINE HCL 100 MG TAB PO SCH (08:11)
[2020-06-06] MEDS: PANTOprazole 40 MG TAB PO SCH (08:11)
[2020-06-06] MEDS: FOLIC ACID 1 MG TAB PO SCH (08:11)
[2020-06-06] MEDS: FLUTICASONE/VILANTEROL 200/25MCG 14 PUFFS/INHALER INH SCH (08:12)
[2020-06-06] MEDS: prednisoLONE SYRUP 15 MG/5 ML BTL PO SCH (08:12)
[2020-06-06] MEDS: INSULIN HUMAN NPH SC SCH (08:12)
[2020-06-06] MEDS: INSULIN ASPART 100 UNITS/ML 3 ML PEN SC SCH ×4 (08:15→21:00)
[2020-06-06 08:55] LABS: Albumin Globulin Ratio 0.6 (0.9-2); Albumin Level 1.9 gm/dl (3.4-5.0); BUN Creatinine Ratio 18.1 (10-20); Creatinine Clr Calc Pharmacy 133.6 ml/min; Est GFR (Non-African American) 114.8; Globulin 3.4 gm/dl (2.5-4.0); Potassium 3.6 mmol/L (3.5-5.1); Total Protein 5.3 gm/dl (6.4-8.2)
[2020-06-06] MEDS: LORazepam 0.5 MG TAB PO PRN ×2 (13:33→20:59)
[2020-06-06] MEDS: ALBUTEROL HFA 8 GM INHALER INH PRN (17:44)
--- NOTE | 2020-06-06 18:14 | Hospitalist Progress Note ---
Date of Service June 06, 2020 Assessment & Plan (1) Acute alcoholic hepatitis: With history of alcohol abuse and recurrent withdrawal symptoms Meld score 24 Has been receiving steroid as per GI recommendation Appreciate GI input and recommendation Clinical improvement with steroids. Ceftriaxone for empiric treatment of SBP. No signs of hepatic encephalopathy She has been refusing to go to inpatient rehab Condition critical but stable If deteriorates will need to be transferred to tertiary care center as per GI recommendation Remains stable but critical We will continue prednisone at the current dose for 28 days in total as per GI recommendation Much better today -continue physical therapy Profound weakness and tiredness Has been able to participate in physical therapy Has been participating in PT and OT Not much improvement-we will continue with PT and OT Advised to continue PT/OT-has been improving Profound edema We will talk with the GI and start small dose of diuretics from tomorrow (2) Acute liver failure: plan as above. Remains profoundly jaundiced with hemoglobin of more than 16 AST remains high and alkaline phos remains high as well If the condition deteriorates will discuss that with prop making supervisor in [place] Will check comprehensive metabolic panel tomorrow A little better today (3) Coagulopathy: 2/2 liver failure (4) Alcohol withdrawal: Prior history of withdrawal, current withdrawal symptoms are mild. Mentating clearly. Daily alcohol use, 4 glasses of wine daily AWSS protocol Gabapentin course finished, he is now on as needed Ativan Strongly consider inpatient rehabilitation program upon dc. Refusing to go to inpatient rehab No signs and/or symptoms of withdrawal (5) Alcohol abuse: plan as above. (6) Diabetes mellitus type 1: Recently diagnosed 02/2020 secondary to DKA and prior diagnosis of acute pancreatitis Last A1c 5.8, 02/2020, repeat is 4.9 Continue NPH and NovoLog PRN per glycemic pharmacist. Current numbers are well controlled. Glycemic pharmacist adjusting insulin inputs. Blood sugar has been running low (7) Hypoalbuminemia: In setting of malnutrition and alcohol abuse. Prior hospitalist discussed Lasix/albumin with GI physician over the weekend which will not be helpful in the absence of SBP or paracentesis. Advised to continue to try to eat and drink as asked for (8) Asthma: chronic, stable. No acute exacerbation. Continue Advair, as needed albuterol (9) DVT prophylaxis: SCDS/TEDS, Lovenox started as INR less than 2 Full Code Dispo-cont PCU monitoring. She does not want her mother to be called Admission and Anticipated Discharge Date Admission Date: May 26, 2020 Subjective 05/31/2020 The patient was seen and examined in ICU She is a 44-year-old female with significant past medical history of alcohol abuse and dependence, history of recurrent alcohol withdrawal, at home, major depressive disorder, diabetes on insulin was admitted on 26 May with lower leg swelling and jaundice for 2 weeks He has been feeling little better today and denies any abdominal pain and or more distention, no nausea and no vomiting 06/01/2020 The patient was seen and examined in telemetry unit Shee complains to have profound weakness and tiredness Shortness of breath on minimal exertion Denies any pain. No fever and/or chills 06/02/2020 The patient was seen and examined in telemetry unit She remains extremely weak and lethargic Denies any fever and/or chills, any shortness of breath at rest Her abdomen remains distended and she feels bloated 06/03/2020 The patient was seen and examined in telemetry unit She remains extremely weak and lethargic but feels a little better today Denies any more abdominal distention and has been having bowel movement 06/04/2020 The patient was seen and examined in telemetry unit She remains extremely weak and lethargic but feels a little better today Denies any abdominal distention, nausea and or vomiting Has been voiding and moving bowels 06/05/2020 Doing much better today Remains weak and lethargic 06/06/2020 The patient was seen and examined in medical telemetry unit She has been feeling a little bit better today Has been getting physical therapy and getting stronger Not yet ready to be discharged Review of Systems Review of Systems: All systems reviewed and are unremarkable except as noted below Constitutional: + fatigue and + weakness Gastrointestinal: + bloating; no abdominal pain, no nausea and no vomiting Physical Exam Physical Exam: Lying on bed without any apparent distress Constitutional: well developed, well nourished and + ill appearing; no acute distress Eyes: sclerae not anicteric ENMT: external ear and nose normal, oropharynx normal Neck: trachea midline, no thyromegaly Respiratory: normal respiratory effort; no respiratory distress Auscultation: + diminished lung sounds Cardiovascular: Rate/Rhythm: regular rate and regular rhythm Heart Sounds: no murmur Extremities: + edema (1-2+ edema bilaterally) Gastrointestinal (Abdomen): Inspection/Auscultation: + abdomen distended; + abnormal bowel sounds (Sluggish bowel sounds) Percussion/Palpation: + abdomen tender (Minimally tender on palpation mostly over right upper quadrant) and + ascites (Mild ascites clinically); + abdomen not soft Musculoskeletal: No acute arthritis in any joint Neurologic: Alert, awake and oriented x3. Generally weak Psychiatric: A+Ox3, euthymic affect Lymphatic: no cervical or axillary lymphadenopathy Results & Data Results & Data ([facility]) Vital Signs (Past 12 Hours) Vital Signs Temp Pulse Resp BP Pulse Ox 06/06/20 17:45 78 18 93 06/06/20 15:23 36.9 C 78 16 103/72 91 06/06/20 11:06 36.9 C 80 18 103/70 93 06/06/20 08:47 36.8 C 71 18 96/67 L 97 Laboratory Results [facility] 06/06/20 08:00 Sodium 139 Potassium 3.6 Chloride 105 Carbon Dioxide 28 BUN 10 Creatinine 0.54 L Glucose 80 Calcium 9.0 Liver Function 06/06/20 Range/Units 08:00 Total Bilirubin 12.0 H (0.2-1) mg/dl AST 170 H (15-37) U/L ALT 72 (12-78) U/L Alkaline Phosphatase 187 H (45-117) U/L Albumin 1.9 L (3.4-5.0) gm/dl Medications Administered Current Inpatient Medications Albuterol (Albuterol Hfa 8 Gm Inhaler) 2 puffs INH Q6H PRN PRN Reason: Shortness Of Breath Stop: 06/25/20 23:05 Last Admin: 06/06/20 17:44 Dose: 2 puffs Documented by: Dextrose (Dextrose 50% 50 Ml Syringe) 25 - 50 ml IV UD PRN; Protocol PRN Reason: Hypoglycemia Protocol Stop: 06/25/20 23:05 Enoxaparin Sodium (Enoxaparin Inj 40 Mg/0.4 Ml Syr) 40 mg SQ HS [facility] Stop: 06/29/20 20:59 Last Admin: 06/05/20 21:03 Dose: Not Given Documented by: Fluticasone/Vilanterol (Fluticasone/Vilanterol 200/25mcg 14 Puffs/Inhaler) 1 puffs INH DAILY [facility] Stop: 06/26/20 08:59 Last Admin: 06/06/20 08:12 Dose: 1 puffs Documented by: Folic Acid (Folic Acid 1 Mg Tab) [facility] Stop: 06/26/20 08:59 Last Admin: 06/06/20 08:11 Dose: 1 mg Documented by: Glucagon (Glucagon For Inj 1 Mg Vial) 1 mg SQ UD PRN; Protocol PRN Reason: Hypoglycemia Protocol Stop: 06/25/20 23:05 Glucose (Glucose 10 Tabs/Tube) 4 - 8 tabs PO UD PRN; Protocol PRN Reason: Hypoglycemia Protocol Stop: 06/25/20 23:05 Glucose (Glucose 40% Gel 15 Gm Tube) 15 - 30 gm PO UD PRN; Protocol PRN Reason: Hypoglycemia Protocol Stop: 06/25/20 23:05 Lorazepam (Ativan) 1 mg in 2 mls @ 2 mls/min IV UD PRN; Protocol PRN Reason: EtOH Withdrawl AWSS Score 6,7 Stop: 06/26/20 19:10 Last Admin: 06/01/20 03:15 Dose: 2 mls/min Documented by: Insulin Aspart (Insulin Aspart 100 Units/Ml 3 Ml Pen) 0 units SC ACHS [facility]; Protocol Stop: 06/26/20 01:59 Last Admin: 06/06/20 17:29 Dose: 2 units Documented by: Insulin Human NPH (Insulin Human Nph) 5 units SC DAILY@0730 [facility]; Protocol Stop: 07/06/20 07:29 Last Admin: 06/06/20 08:12 Dose: 5 units Documented by: Lorazepam (Lorazepam 0.5 Mg Tab) 0.5 mg PO TID PRN PRN Reason: Anxiety Stop: 07/01/20 20:20 Last Admin: 06/06/20 13:33 Dose: 0.5 mg Documented by: Miscellaneous (Carbohydrates For Hypoglycemia ) 15 - 30 gm PO UD PRN PRN Reason: Hypoglycemia Protocol Stop: 06/25/20 23:05 Last Admin: 06/03/20 07:54 Dose: 15 gm Documented by: Miscellaneous Information (Pharmacy Glycemic Mgmt Consult) 1 ea N/A UD PRN; Protocol PRN Reason: Consult Stop: 06/25/20 23:44 Multivitamins (Multivitamin Tab) 1 tab PO [facility] Stop: 06/26/20 08:59 Last Admin: 06/06/20 08:11 Dose: 1 tab Documented by: Ondansetron HCl (Ondansetron Inj 2 Mg/Ml 2 Ml Vial) 4 mg IV Q6H PRN PRN Reason: Nausea Stop: 06/25/20 23:05 Pantoprazole Sodium (Pantoprazole 40 Mg Tab) 40 mg PO QAM [facility] Stop: 06/26/20 08:59 Last Admin: 06/06/20 08:11 Dose: 40 mg Documented by: Polyethylene Glycol (Polyethylene (Miralax) 17 Gm Pack) 17 gm PO DAILY PRN PRN Reason: Constipation Stop: 06/25/20 23:05 Prednisolone (Prednisolone Syrup 15 Mg/5 Ml Btl) 40 mg PO DAILY [facility] Stop: 06/29/20 08:59 Last Admin: 06/06/20 08:12 Dose: 40 mg Documented by: Thiamine HCl (Thiamine Hcl 100 Mg Tab) 100 mg PO QAM [facility] Stop: 06/26/20 08:59 Last Admin: 06/06/20 08:11 Dose: 100 mg Documented by: (1) Asthma Asthma severity: unspecified severity Asthma persistence: unspecified Asthma complication type: unspecified Qualified Code(s): J45.909 - Unspecified asthma, uncomplicated
[2020-06-06] MEDS: ENOXAPARIN INJ 40 MG/0.4 ML SYR SQ SCH (20:58)
[2020-06-07] MEDS: INSULIN HUMAN NPH SC SCH (08:28)
[2020-06-07] MEDS: INSULIN ASPART 100 UNITS/ML 3 ML PEN SC SCH ×4 (08:29→21:28)
[2020-06-07] MEDS: PANTOprazole 40 MG TAB PO SCH (08:29)
[2020-06-07] MEDS: THIAMINE HCL 100 MG TAB PO SCH (08:30)
[2020-06-07] MEDS: prednisoLONE SYRUP 15 MG/5 ML BTL PO SCH (08:30)
[2020-06-07] MEDS: MULTIVITAMIN TAB PO SCH (08:30)
[2020-06-07] MEDS: FOLIC ACID 1 MG TAB PO SCH (08:30)
[2020-06-07] MEDS: FLUTICASONE/VILANTEROL 200/25MCG 14 PUFFS/INHALER INH SCH (08:30)
[2020-06-07 08:34] LABS: Basophils # (auto) 0.01 K/uL (0-0.2); Basophils % (auto) 0.1 %; Eosinophils # (auto) 0.05 K/uL (0-0.5); Eosinophils % (auto) 0.7 %; Hematocrit (blood only) 36.3 % (37-47); Hemoglobin 11.9 g/dL (12.0-16.0); Immature Granulocytes # (auto) 0.06 K/uL (0.00-0.02); Immature Granulocytes % (auto) 0.9 %; Lymphocytes # (auto) 0.74 K/uL (1.2-3.4); Lymphocytes % (auto) 10.7 %; Mean Corpuscular Hemoglobin 37.3 pg (25-34); Mean Corpuscular Hgb Conc 32.8 g/dL (32-36); Mean Corpuscular Volume 113.8 fL (80-100); Mean Platelet Volume 10.4 fL (7.4-10.4); Monocytes # (auto) 0.43 K/uL (0.11-0.59); Monocytes % (auto) 6.2 %; Neutrophils # (auto) 5.65 K/uL (1.4-6.5); Neutrophils % (auto) 81.4 %; Nucleated RBC # (auto) 0.03 K/uL (0-0); Nucleated RBC % (auto) 0.4 %; Platelet Count 174 K/uL (130-400); RDW Coefficient of Variation 17.6 % (11.5-14.5); Red Blood Count 3.19 M/uL (4.2-5.4); White Blood Count 6.94 K/uL (4.8-10.8)
[2020-06-07] MEDS ORDERED: POTASSIUM CHLORIDE CRTAB 20 MEQ TABCR PO STA (08:36)
[2020-06-07] MEDS ORDERED: FUROSEMIDE 40 MG in SYRINGE 0 ML IV ONE (08:45)
[2020-06-07 09:01] LABS: Macrocytosis Present
[2020-06-07 09:23] LABS: Albumin Globulin Ratio 0.6 (0.9-2); Albumin Level 2.1 gm/dl (3.4-5.0); BUN Creatinine Ratio 15.7 (10-20); Bilirubin,Total 12.4 mg/dl (0.2-1); Creatinine Clr Calc Pharmacy 124.5 ml/min; Est GFR (African American) 129.9; Est GFR (Non-African American) 112.1; Globulin 3.5 gm/dl (2.5-4.0); Magnesium 2.2 mg/dl (1.8-2.4); Phosphorus 2.1 mg/dl (2.5-4.9); Potassium 3.2 mmol/L (3.5-5.1); Total Protein 5.6 gm/dl (6.4-8.2)
[2020-06-07] MEDS: SPIRONOLACTONE 25 MG TAB PO SCH (11:24)
--- NOTE | 2020-06-07 11:32 | Pharmacy Report ---
Glycemic Control Progress Note - Date of Service June 07, 2020 - Scope Glycemic Pharmacist consulted for glycemic control to write orders per [facility] inpatient glycemic control protocol. - Objective Accuchecks BSG(last 24 hours):: 06/06/20 06/06/20 06/06/20 11:32 16:38 20:26 Glucose POC Glucose 136 H 142 H 131 H 06/07/20 06/07/20 07:14 08:11 Glucose 98 POC Glucose 77 HbA1c:: Hemoglobin A1c 4.9 % (4.5-5.6) 05/27/20 04:08 - Recent Pertinent Medications The patient is currently receiving: * Basal insulin: NPH 5 units every 24 hours * Correctional Insulin: Novolog Correction per scale ACHS Goal Range: Low 120 mg/dL - High 160 mg/dL Correction Factor: 30 mg/dL/unit * Prandial insulin: Per carb ratio of 1 unit per 15 grams CHO consumed - Outpatient Anti-Diabetic Meds Novolin 70/30 20 units in the morning and 10 units in the PM - Assessment & Plan ASSESSMENT: * See progress note from 05/27/20 for more background info, in short: * Pt receiving SQ basal bolus insulin regimen for hyperglycemia secondary to baseline DM (outpatient regimen on hold). * Patient is currently receiving an average of 12 units of insulin per day * 5 units of basal insulin * 7 units of prandial/correctional insulin * BSGs ranging 80 - 142 mg/dl over the past 24hrs * Changes needed to insulin regimen: * AM Fasting BSG = 77 mg/dl. This is in goal range for patient based on inpatient targets and co-morbidities. Therefore Basal insulin will be continued at NPH 5 units daily. This is drastically below patient's home regimen of 30 units of 70/30 daily HOWEVER laboratory values including bicarbonate and anion gap are all normal. * Post-prandial BSGs are in range therefore no changes needed to CF/CR. * Total daily dose = <20 units. Continue regimen. PLAN FOR INPATIENT GLYCEMIC CONTROL: * Continuing NPH to 5 units SQ daily * Continuing correction factor of 30 mg/dl/unit * Continuing carb ratio of 1 unit per 15 grams CHO consumed * Continuing goal range of Low 110 mg/dL - High 140 mg/dL RECOMMENDATIONS FOR DISCHARGE: * Patient's HbA1C indicates that glycemic control at home is extremely tight. * It is okay to continue home regimen if patient is not experiencing significant hypoglycemia at home. * If patient is having significant hypoglycemia at home, it is reasonable to reduce doses by half then titrate upwards as necessary per glycemic records. Thank you.
[2020-06-07] MEDS: LORazepam 0.5 MG TAB PO PRN ×2 (12:26→21:17)
--- NOTE | 2020-06-07 14:47 | Hospitalist Progress Note ---
Date of Service June 07, 2020 Assessment & Plan (1) Acute alcoholic hepatitis: With history of alcohol abuse and recurrent withdrawal symptoms Meld score 24 Has been receiving steroid as per GI recommendation Appreciate GI input and recommendation Clinical improvement with steroids. Ceftriaxone for empiric treatment of SBP. No signs of hepatic encephalopathy She has been refusing to go to inpatient rehab Condition critical but stable If deteriorates will need to be transferred to tertiary care center as per GI recommendation Remains stable but critical We will continue prednisone at the current dose for 28 days in total as per GI recommendation Has been feeling a lot better today following administration of Lasix and Aldactone We will continue 20 mg of furosemide and 25 mg of Aldactone daily [facility] sales activity manager will call her with an Tele appointment with supervisor advertising dispatch clerks/sas sql developer(DR Swenson) in [place] She will be followed up with GI service on discharge Profound weakness and tiredness Has been able to participate in physical therapy Has been participating in PT and OT Not much improvement-we will continue with PT and OT Advised to continue PT/OT-has been improving Profound edema We will talk with the GI and start small dose of diuretics from tomorrow Has been getting Lasix and his prolactin Plan to discharge on oral Lasix of 20 mg and his prolactin of 25 mg (2) Acute liver failure: plan as above. Remains profoundly jaundiced with hemoglobin of more than 16 AST remains high and alkaline phos remains high as well If the condition deteriorates will discuss that with supervisor advertising dispatch clerks in [place] Will check comprehensive metabolic panel tomorrow A little better today-remains stable (3) Coagulopathy: 2/2 liver failure (4) Alcohol withdrawal: Prior history of withdrawal, current withdrawal symptoms are mild. Mentating clearly. Daily alcohol use, 4 glasses of wine daily AWSS protocol Gabapentin course finished, he is now on as needed Ativan Strongly consider inpatient rehabilitation program upon dc. Refusing to go to inpatient rehab No signs and/or symptoms of withdrawal (5) Alcohol abuse: plan as above. (6) Diabetes mellitus type 1: Recently diagnosed 02/2020 secondary to DKA and prior diagnosis of acute pancreatitis Last A1c 5.8, 02/2020, repeat is 4.9 Continue NPH and NovoLog PRN per glycemic pharmacist. Current numbers are well controlled. Glycemic pharmacist adjusting insulin inputs. Blood sugar has been running low (7) Hypoalbuminemia: In setting of malnutrition and alcohol abuse. Prior hospitalist discussed Lasix/albumin with GI physician over the weekend which will not be helpful in the absence of SBP or paracentesis. Advised to continue to try to eat and drink as asked for (8) Asthma: chronic, stable. No acute exacerbation. Continue Advair, as needed albuterol (9) DVT prophylaxis: SCDS/TEDS, Lovenox started as INR less than 2 Full Code Dispo-cont PCU monitoring. She does not want her mother to be called Likely be discharged tomorrow Admission and Anticipated Discharge Date Admission Date: May 26, 2020 Subjective 05/31/2020 The patient was seen and examined in ICU She is a 44-year-old female with significant past medical history of alcohol abuse and dependence, history of recurrent alcohol withdrawal, at home, major depressive disorder, diabetes on insulin was admitted on 26 May with lower leg swelling and jaundice for 2 weeks He has been feeling little better today and denies any abdominal pain and or more distention, no nausea and no vomiting 06/01/2020 The patient was seen and examined in telemetry unit Shee complains to have profound weakness and tiredness Shortness of breath on minimal exertion Denies any pain. No fever and/or chills 06/02/2020 The patient was seen and examined in telemetry unit She remains extremely weak and lethargic Denies any fever and/or chills, any shortness of breath at rest Her abdomen remains distended and she feels bloated 06/03/2020 The patient was seen and examined in telemetry unit She remains extremely weak and lethargic but feels a little better today Denies any more abdominal distention and has been having bowel movement 06/04/2020 The patient was seen and examined in telemetry unit She remains extremely weak and lethargic but feels a little better today Denies any abdominal distention, nausea and or vomiting Has been voiding and moving bowels 06/05/2020 Doing much better today Remains weak and lethargic 06/06/2020 The patient was seen and examined in medical telemetry unit She has been feeling a little bit better today Has been getting physical therapy and getting stronger Not yet ready to be discharged 06/07/2020 The patient was seen and examined in medical telemetry unit She has been feeling much better today She feels less bloated and has been participating with physical therapy Denies any shortness of breath, abdominal distention, pain, nausea and/or vomiting Review of Systems Review of Systems: All systems reviewed and are unremarkable except as noted below Constitutional: + fatigue and + weakness Gastrointestinal: + bloating; no abdominal pain, no nausea and no vomiting Physical Exam Physical Exam: Lying on bed without any apparent distress Constitutional: well developed, well nourished and + ill appearing; no acute distress Eyes: sclerae not anicteric ENMT: external ear and nose normal, oropharynx normal Neck: trachea midline, no thyromegaly Respiratory: normal respiratory effort; no respiratory distress Auscultation: + diminished lung sounds Cardiovascular: Rate/Rhythm: regular rate and regular rhythm Heart Sounds: no murmur Extremities: + edema (1-2+ edema bilaterally) Gastrointestinal (Abdomen): Inspection/Auscultation: + abdomen distended; + abnormal bowel sounds (Sluggish bowel sounds) Percussion/Palpation: + abdomen tender (Minimally tender on palpation mostly over right upper quadrant) and + ascites (Mild ascites clinically); + abdomen not soft Musculoskeletal: No acute arthritis in any joint Neurologic: Alert, awake and oriented x3. Generally very weak and lethargic Psychiatric: A+Ox3, euthymic affect Lymphatic: no cervical or axillary lymphadenopathy Results & Data Results & Data ([facility]) Vital Signs (Past 12 Hours) Vital Signs Temp Pulse Resp BP Pulse Ox 06/07/20 07:38 36.9 C 74 16 93/59 L 96 06/07/20 03:14 36.6 C 80 17 89/52 L 94 Laboratory Results Short CBC 06/07/20 Range/Units 08:11 WBC 6.94 (4.8-10.8) K/uL Hgb 11.9 L (12.0-16.0) g/dL Hct 36.3 L (37-47) % Plt Count 174 (130-400) K/uL BMP 06/07/20 08:11 Sodium 140 Potassium 3.2 L Chloride 106 Carbon Dioxide 26 BUN 9 Creatinine 0.58 L Glucose 98 Calcium 9.0 Liver Function 06/07/20 Range/Units 08:11 Total Bilirubin 12.4 H (0.2-1) mg/dl AST 193 H (15-37) U/L ALT 85 H (12-78) U/L Alkaline Phosphatase 188 H (45-117) U/L Albumin 2.1 L (3.4-5.0) gm/dl Medications Administered Current Inpatient Medications Albuterol (Albuterol Hfa 8 Gm Inhaler) 2 puffs INH Q6H PRN PRN Reason: Shortness Of Breath Stop: 06/25/20 23:05 Last Admin: 06/06/20 17:44 Dose: 2 puffs Documented by: Dextrose (Dextrose 50% 50 Ml Syringe) 25 - 50 ml IV UD PRN; Protocol PRN Reason: Hypoglycemia Protocol Stop: 06/25/20 23:05 Enoxaparin Sodium (Enoxaparin Inj 40 Mg/0.4 Ml Syr) 40 mg SQ HS [facility] Stop: 06/29/20 20:59 Last Admin: 06/06/20 20:58 Dose: 40 mg Documented by: Fluticasone/Vilanterol (Fluticasone/Vilanterol 200/25mcg 14 Puffs/Inhaler) 1 puffs INH DAILY [facility] Stop: 06/26/20 08:59 Last Admin: 06/07/20 08:30 Dose: Not Given Documented by: Folic Acid (Folic Acid 1 Mg Tab) 1 mg PO QAM [facility] Stop: 06/26/20 08:59 Last Admin: 06/07/20 08:30 Dose: 1 mg Documented by: Glucagon (Glucagon For Inj 1 Mg Vial) 1 mg SQ UD PRN; Protocol PRN Reason: Hypoglycemia Protocol Stop: 06/25/20 23:05 Glucose (Glucose 10 Tabs/Tube) 4 - 8 tabs PO UD PRN; Protocol PRN Reason: Hypoglycemia Protocol Stop: 06/25/20 23:05 Glucose (Glucose 40% Gel 15 Gm Tube) 15 - 30 gm PO UD PRN; Protocol PRN Reason: Hypoglycemia Protocol Stop: 06/25/20 23:05 Lorazepam (Ativan) 1 mg in 2 mls @ 2 mls/min IV UD PRN; Protocol PRN Reason: EtOH Withdrawl AWSS Score 6,7 Stop: 06/26/20 19:10 Last Admin: 06/01/20 03:15 Dose: 2 mls/min Documented by: Insulin Aspart (Insulin Aspart 100 Units/Ml 3 Ml Pen) [address] [facility]; Protocol Stop: 06/26/20 01:59 Last Admin: 06/07/20 12:20 Dose: 2 units Documented by: Insulin Human NPH (Insulin Human Nph) 5 units SC DAILY@0730 [facility]; Protocol Stop: 07/06/20 07:29 Last Admin: 06/07/20 08:28 Dose: 5 units Documented by: Lorazepam (Lorazepam 0.5 Mg Tab) 0.5 mg PO TID PRN PRN Reason: Anxiety Stop: 07/01/20 20:20 Last Admin: 06/07/20 12:26 Dose: 0.5 mg Documented by: Miscellaneous (Carbohydrates For Hypoglycemia ) 15 - 30 gm PO UD PRN PRN Reason: Hypoglycemia Protocol Stop: 06/25/20 23:05 Last Admin: 06/03/20 07:54 Dose: 15 gm Documented by: Miscellaneous Information (Pharmacy Glycemic Mgmt Consult) 1 ea N/A UD PRN; Protocol PRN Reason: Consult Stop: 06/25/20 23:44 Multivitamins (Multivitamin Tab) 1 tab PO [facility] Stop: 06/26/20 08:59 Last Admin: 06/07/20 08:30 Dose: 1 tab Documented by: Ondansetron HCl (Ondansetron Inj 2 Mg/Ml 2 Ml Vial) 4 mg IV Q6H PRN PRN Reason: Nausea Stop: 06/25/20 23:05 Pantoprazole Sodium (Pantoprazole 40 Mg Tab) 40 mg PO [facility] Stop: 06/26/20 08:59 Last Admin: 06/07/20 08:29 Dose: 40 mg Documented by: Polyethylene Glycol (Polyethylene (Miralax) 17 Gm Pack) 17 gm PO DAILY PRN PRN Reason: Constipation Stop: 06/25/20 23:05 Prednisolone (Prednisolone Syrup 15 Mg/5 Ml Btl) 40 mg PO DAILY [facility] Stop: 06/29/20 08:59 Last Admin: 06/07/20 08:30 Dose: 40 mg Documented by: Spironolactone (Spironolactone 25 Mg Tab) 25 mg PO [facility] Stop: 07/07/20 09:44 Last Admin: 06/07/20 11:24 Dose: 25 mg Documented by: Thiamine HCl (Thiamine Hcl 100 Mg Tab) 100 mg PO [facility] Stop: 06/26/20 08:59 Last Admin: 06/07/20 08:30 Dose: 100 mg Documented by: (1) Asthma Asthma severity: unspecified severity Asthma persistence: unspecified Asthma complication type: unspecified Qualified Code(s): J45.909 - Unspecified asthma, uncomplicated
[2020-06-07] MEDS ORDERED: POTASSIUM PHOS 3 MMOL/1 ML INFUSION IV STA (14:48)
[2020-06-07] MEDS ORDERED: POTASSIUM PHOSPHATE 21 MMOL in SODIUM CHLORIDE 0.9% 500 ML IV ONE (15:00)
[2020-06-07] MEDS: FUROSEMIDE 20 MG TAB PO SCH (15:47)
[2020-06-07] MEDS: ENOXAPARIN INJ 40 MG/0.4 ML SYR SQ SCH (21:16)
[2020-06-08] MEDS: FLUTICASONE/VILANTEROL 200/25MCG 14 PUFFS/INHALER INH SCH (08:16)
[2020-06-08] MEDS: prednisoLONE SYRUP 15 MG/5 ML BTL PO SCH (08:18)
[2020-06-08] MEDS: PANTOprazole 40 MG TAB PO SCH (08:18)
[2020-06-08] MEDS: MULTIVITAMIN TAB PO SCH (08:19)
[2020-06-08] MEDS: FUROSEMIDE 20 MG TAB PO SCH (08:19)
[2020-06-08] MEDS: FOLIC ACID 1 MG TAB PO SCH (08:20)
[2020-06-08] MEDS: SPIRONOLACTONE 25 MG TAB PO SCH (08:20)
[2020-06-08] MEDS: INSULIN ASPART 100 UNITS/ML 3 ML PEN SC SCH ×3 (08:22→17:03)
[2020-06-08] MEDS: INSULIN HUMAN NPH SC SCH (08:22)
[2020-06-08 10:28] LABS: Albumin Level 1.8 gm/dl (3.4-5.0); BUN Creatinine Ratio 16.7 (10-20); Calcium 8.5 mg/dl (8.5-10.1); Creatinine Clr Calc Pharmacy 138.9 ml/min; Est GFR (African American) 134.7; Est GFR (Non-African American) 116.2; Potassium 3.1 mmol/L (3.5-5.1)
[2020-06-08 10:37] LABS: Albumin Globulin Ratio 0.5 (0.9-2); Bilirubin,Total 10.7 mg/dl (0.2-1); Globulin 3.4 gm/dl (2.5-4.0); Phosphorus 2.5 mg/dl (2.5-4.9); Total Protein 5.2 gm/dl (6.4-8.2)
[2020-06-08] MEDS: THIAMINE HCL 100 MG TAB PO SCH (12:44)
[2020-06-08] MEDS ORDERED: POTASSIUM CHLORIDE CRTAB 20 MEQ TABCR PO ONE (12:47)
--- NOTE | 2020-06-08 13:36 | Hospitalist Progress Note ---
Date of Service June 08, 2020 Assessment & Plan (1) Acute alcoholic hepatitis: Acute alcoholic hepatitis H/O Alcohol abuse and recurrent withdrawal symptoms Meld score 24 Continue prednisolone 40mg daily to complete 28-day course--and then taper down as outpatient Appreciate GI Input Received Ceftriaxone empirically for SBP. No signs of hepatic encephalopathy Patient refused inpatient rehab Needs follow-up with GI, hepatology as outpatient Continue Lasix, Aldactone Hypokalemia Replace electrolytes as needed (2) Acute liver failure: plan as above. Hyperbilirubinemia/Transaminitis--POA Bilirubin:16.9>>10.7 --CT ABD:Severe hepatomegaly with severe steatosis. This has progressed. Small amount of ascites and moderate body wall edema. Mild gallbladder wall thickening with associated pericholecystic fluid. This is likely due to the underlying hepatic pathology. An acute cholecystitis could also have a similar appearance in the appropriate clinical setting. Left-sided nephrolithiasis. No hydronephrosis. No definite bowel wall thickening or obstruction. --Monitor LFTS -Outpatient GI scheduled on Jun 26, 2020 at 11:30AM (3) Coagulopathy: 2/2 liver failure No bleeding issues (4) Alcohol withdrawal: Prior history of withdrawal Drinks daily alcohol use, 4 glasses of wine daily AWSS protocol Completed Gabapentin course Refused inpatient rehabilitation (5) Alcohol abuse: plan as above. (6) Diabetes mellitus type 1: Recently diagnosed 02/2020 secondary to DKA and prior diagnosis of acute pancreatitis Last A1c 5.8, 02/2020, repeat is 4.9 Continue NPH and NovoLog PRN per glycemic pharmacist. Monitor BGs (7) Hypoalbuminemia: In setting of malnutrition and alcohol abuse. (8) Asthma: chronic stable No acute exacerbation Continue Advair, as needed albuterol (9) DVT prophylaxis: SCDS/TEDS Lovenox SQ Code Status Full Code Admission and Anticipated Discharge Date Admission Date: May 26, 2020 Subjective Patient is seen and examined at bedside Sitting in bed comfortably this morning Offers no complaints currently Eager to get discharged Denies chest pain, shortness of breath, dizziness, nausea, abdominal pain Discussed with gastroenterology today Review of Systems Review of Systems: All systems reviewed & are unremarkable except as noted in HPI & below Physical Exam Physical Exam: Physical Exam: Vitals signs as noted above General Appearance:Moderately built and nourished, no apparent distress Head: normocephalic, Atraumatic Eyes: normal inspection, EOMI, PERRL, +Icteric Neck: supple, Trachea midline Respiratory/Chest: Decreased breath sounds, CTA Cardiovascular: S1, S2, No murmur Abdomen/GI:Soft, Non tender, +Mildly distended, Bowel sounds present Extremities/Musculoskelatal:normal inspection, +B/L LE edema Neurologic/Psych:AAOX3, grossly no focal neurological deficits Skin: normal color, warm, +Jaundice Results & Data Results & Data ([facility]) Vital Signs (Past 12 Hours) Vital Signs Temp Pulse Pulse Resp BP Pulse Ox 06/08/20 11:31 37.0 C 93 H 18 104/70 92 06/08/20 07:20 36.7 C 81 18 105/70 95 06/08/20 07:19 81 06/08/20 02:46 36.8 C 59 L 20 99/65 L 95 Laboratory Results [facility] 06/08/20 09:20 Sodium 143 Potassium 3.1 L Chloride 109 H Carbon Dioxide 27 BUN 9 Creatinine 0.52 L Glucose 78 Calcium 8.5 Liver Function 06/08/20 Range/Units 09:20 Total Bilirubin 10.7 H (0.2-1) mg/dl AST 193 H (15-37) U/L ALT 90 H (12-78) U/L Alkaline Phosphatase 161 H (45-117) U/L Albumin 1.8 L (3.4-5.0) gm/dl (1) Asthma Asthma severity: unspecified severity Asthma persistence: unspecified Asthma complication type: unspecified Qualified Code(s): J45.909 - Unspecified asthma, uncomplicated
--- NOTE | 2020-06-08 14:03 | Discharge Summary ---
Date of Service June 08, 2020 Admission HPI Per Admitting Provider This is a 44-year-old female who has significant past medical history of alcohol dependence, history of alcohol withdrawal, asthma, major depressive disorder, panic disorder, history of pancreatitis, recently diagnosed T1DM who presents to ED secondary to increased swelling and jaundice x2 weeks. Unfortunately she continues to drink alcohol, last drink at approximately 9 AM and a glass of wine. She admits to drinking 2 glasses of wine in the morning and 2 glasses of wine in the evening. Of significance she was hospitalized in critical care February 2020 secondary to new onset T1DM, DKA, metabolic encephalopathy and acute pancreatitis. Since then she has been managing her diabetes with insulin and following with [facility] pharmacy. She has not followed up with any other outpatient providers. She presents to ED today due to daughter telling her she has been more yellow over the past week. She also admits to significant increase in lower extremity swelling, abdominal bloating, early satiety, nausea and jaundice over the past 2 weeks. She specifically noticed worsening and bloating over the past 4 days. She denies any recent fever, chills, sweats, lightheadedness, dizziness, syncope, chest pain, shortness of breath at rest, chest pain, palpitations, emesis, hematemesis, diarrhea, melena, hematochezia, dysuria, increased urgency or frequency with urination. Appetite has otherwise been decreased. Last evening she difficulty sleeping secondary to significant pain in her lower extremities specifically in her proximal thighs. She says this is improved. Currently she denies any pain, but does occasionally have mild epigastric discomfort. She feels improved when at rest and lying down. 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 She remained hemodynamically stable. In ED lab abnormalities concerning for acute liver failure with total bilirubin 16.9, direct bilirubin 13.9, AST 160, ALT 57, Ezio 1.8, lactic acid 3.0, K3.3, INR 2.9, H&H 12.2 and 36.8, to WBC 10.96k, plt 210. CT A/P: 1. Severe hepatomegaly with severe steatosis. This has progressed. 2. Small amount of ascites and moderate body wall edema. 3. Mild gallbladder wall thickening with associated pericholecystic fluid. This is likely due to the underlying hepatic pathology. An acute cholecystitis could also have a similar appearance in the appropriate clinical setting. 4. Left-sided nephrolithiasis. No hydronephrosis. 5. No definite bowel wall thickening or obstruction. B/L Venous duplex negative and CXR unremarkable. Per ED provider he spoke with on-call GI who recommended above CT abdomen pelvis to explore for possible paracentesis if sufficient ascites present. She was treated empirically with IV ceftriaxone for SBP. Repeat INR at the recommendation of on-call GI after 4 hours did not reveal an elevation, but remained stable at 2.8. Recommendation per GI was to start IV steroids. She received potassium and phosphorus replacement. She received 10 mg IV vitamin K. Lastly she was given 30 mg IV methylprednisolone due to acute alcoholic hepatitis. Admission Exam Per Admitting Provider Physical Exam Physical Exam: Constitutional: Acutely ill-appearing, jaundiced, WD/WN, vitals as above, NAD, lying in bed, answers questions appropriately, Head: Normocephalic, Atraumatic Eyes: PERRL, conjunctivae normal, anicteric sclerae ENMT: external ear and nose normal, oropharynx normal Neck: trachea midline, no thyromegaly normal visual inspection Respiratory: normal respiratory effort, diminished breath sounds at bases, lungs clear to auscultation, no wheeze, rales, rhonchi. Normal insp/exp effort, no accessory muscle use Cardiovascular: RRR, no murmur, +3 lower extremity edema extending proximal thighs, no edema Vessels: no JVD or carotid bruit Chest: normal inspection of chest Abdomen: Distended abdomen, caput medusa, hepatomegaly palpated, normoactive bowel sounds x 4, firm, nontender to palpation Musculoskeletal: no cyanosis or clubbing, extremities motor strength 5/5 Skin: Palmar erythema, spider angiomas, warm and dry normal turgor Neurologic: PERRL, EOMI, accommodation nl, no face palsy, no dysarthria CN's II-XI intact bilaterally and moves all extremities Psychiatric: A+Ox3, euthymic affect : deferred Principal Diagnosis Acute alcoholic hepatitis Hypokalemia Alcohol abuse Volume overload Discharge Data Allergies Allergy/AdvReac Type Severity Reaction Status Date / Time theophylline AdvReac Unknown VERTIGO Verified 05/26/20 14:25 Consultations 05/26/20 19:30 ED Decision to Admit Stat Procedures Performed --CT ABD:Severe hepatomegaly with severe steatosis. This has progressed. Small amount of ascites and moderate body wall edema. Mild gallbladder wall thickening with associated pericholecystic fluid. This is likely due to the underlying hepatic pathology. An acute cholecystitis could also have a similar appearance in the appropriate clinical setting. Left-sided nephrolithiasis. No hydronephrosis. No definite bowel wall thickening or obstruction. Venous Doppler: No DVT within the right or left lower extremity. ABD USD: Trace ascites, unchanged. Ordered Studies 05/26/20 13:38 CT abd pelvis IV con only Stat US venous doppler LE BI Stat 05/29/20 09:16 US abdomen limited Routine Hospital Course (1) Acute alcoholic hepatitis: Acute alcoholic hepatitis H/O Alcohol abuse and recurrent withdrawal symptoms Meld score 24 Continue prednisolone 40mg daily to complete 28-day course--and then taper down as outpatient Appreciate GI Input Received Ceftriaxone empirically for SBP. No signs of hepatic encephalopathy Patient refused inpatient rehab Needs follow-up with GI, hepatology as outpatient Continue Lasix, Aldactone Hypokalemia Replace electrolytes as needed (2) Acute liver failure: plan as above. Hyperbilirubinemia/Transaminitis--POA Bilirubin:16.9>>10.7 --CT ABD:Severe hepatomegaly with severe steatosis. This has progressed. Small amount of ascites and moderate body wall edema. Mild gallbladder wall thickening with associated pericholecystic fluid. This is likely due to the underlying hepatic pathology. An acute cholecystitis could also have a similar appearance in the appropriate clinical setting. Left-sided nephrolithiasis. No hydronephrosis. No definite bowel wall thickening or obstruction. --Monitor LFTS -Outpatient GI scheduled on Jun 26, 2020 at 11:30AM (3) Coagulopathy: 2/2 liver failure No bleeding issues (4) Alcohol withdrawal: Prior history of withdrawal Drinks daily alcohol use, 4 glasses of wine daily AWSS protocol Completed Gabapentin course Refused inpatient rehabilitation (5) Alcohol abuse: plan as above. (6) Diabetes mellitus type 1: Recently diagnosed 02/2020 secondary to DKA and prior diagnosis of acute pancreatitis Last A1c 5.8, 02/2020, repeat is 4.9 Continue NPH and NovoLog PRN per glycemic pharmacist. Monitor BGs (7) Hypoalbuminemia: In setting of malnutrition and alcohol abuse. (8) Asthma: chronic stable No acute exacerbation Continue Advair, as needed albuterol (9) DVT prophylaxis: SCDS/TEDS Lovenox SQ Code Status Full Code Total Time Total Time Spent Total Time Spent (In Minutes): 42 minutes Discharge Plan Discharge Items Patient Disposition: Home - Self-Care Reason For Visit: ACUTE LIVER FAILURE Discharge Diagnosis: Acute alcoholic hepatitis Hypokalemia Alcohol abuse Volume overload Activity: Per Instructions section Exercise/Sports: Gradually increase as tolerated Non-emergency contact: Primary Care Provider and Police Commissioner Call non-emergency contact if: you have any medication questions, your symptoms worsen, your pain is not controlled, your pain is worsening, your pain is unusual for you, your pain is concerning for you and you have a fever Follow-up/Referrals: Elliot Whatley MD [Primary Care Provider] - (Date & Time 06/14/2020 11:00 AM Provider Elliot Whatley III, MD [facility] will call you for an appointment with the mobile unit assistant. ) Diet: Carb Consistent or DM2 and Low Sodium (2gm) Fluids: 2000ml (8 cups) Addtl Attending Provider Instructions: Follow-up with your primary care physician Dr. Whatley on 06/14/2020 11:00 AM Follow-up with your facility mechanic Viktoriya Vega PA-C on Jun 26, 2020 at 11:30 AM as scheduled Continue Prednisolone 40mg daily for 18 more days and follow up with your Police Commissioner on June 26 for further recommendation on prednisone taper course. .Quit drinking alcohol as advised Seek immediate medical attention if your symptoms reoccur or worsen Insulin Therapy: Take 70/30: 10 units in Morning and 5 units at supper. Check blood sugar levels regularly twice a day. If you notice low blood glucose levels, discuss with your physician for further instructions on insulin dosage. Pending Studies at Discharge: No Stand-Alone Forms: My [employer], Smoking Cessation Medications and DC Order Prescriptions: New spironolactone 25 mg Tablet 25 mg PO QAM Qty: 30 RF: 1 furosemide 20 mg Tablet 20 mg PO QAM Qty: 30 RF: 1 prednisolone sodium phosphate 10 mg tablet,disintegrating 10 mg PO UD Qty: 100 RF: 0 Continued potassium chloride 10 mEq tablet extended release 10 meq PO BID Qty: 60 RF: 1 magnesium chloride 64 mg tablet,delayed release (DR/EC) 64 mg PO BID Qty: 60 RF: 1 insulin regular human 100 unit/mL (3 mL) insulin pen See Rx Instructions .ROUTE .COMPLEX Qty: 15 RF: 12 (DME) pen needle, diabetic [ReliOn Pen [place]] 32 gauge x 5/32" needle See Rx Instructions .ROUTE .MEDSUPPLY Qty: 50 RF: 12 (DME) ReliOn Prime Test Strips Strip See Rx Instructions .ROUTE .MEDSUPPLY Qty: 50 RF: 0 (DME) lancets [ReliOn Thin Lancets] 26 gauge misc See Rx Instructions .ROUTE .MEDSUPPLY Qty: 100 RF: 12 (DME) BD Insulin Syringe 1 mL 26 x 1/2" syringe See Rx Instructions .ROUTE .MEDSUPPLY Qty: 100 RF: 12 (DME) lancets [ReliOn Ultra Thin Plus Lancets] Misc See Rx Instructions .ROUTE .MEDSUPPLY Qty: 100 RF: 12 (DME) insulin syringe-needle U-100 [BD Insulin Syringe Ultra-Fine] 0.5 mL 31 gauge x 5/16" syringe See Rx Instructions .ROUTE .MEDSUPPLY Qty: 100 RF: 12 fluticasone propion-salmeterol [Advair Diskus] 250-50 mcg/dose blister with device 1 inh inhalation QAM RF: 0 albuterol sulfate [Ventolin HFA] 90 mcg/actuation Hfa Aerosol Inhaler 2 puff INHALATION Q6H PRN (Reason: Shortness Of Breath) RF: 0 multivitamin [Daily-Harris] Tablet 1 tab PO QAM Qty: 0 RF: 0 pantoprazole 40 mg Tablet,Delayed Release (Dr/Ec) 40 mg PO QAM Qty: 30 RF: 0 thiamine HCl (vitamin B1) [Vitamin B-1] 100 mg Tablet 100 mg PO QAM Qty: 30 RF: 0 folic acid 1 mg Tablet 1 mg PO QAM Qty: 30 RF: 0 Changed Novolin 70/30 U-100 Insulin 100 unit/mL (70-30) suspension See Rx Instructions .ROUTE .COMPLEX Qty: 10 RF: 12 Discharge Orders: Discharge Order (Routine); Ordered 06/08/20 Ordered By: Bcuky Dominguez/Other Patient Handouts: Diabetes and Drinking Alcohol, Tips for Using Less Salt, Low-Salt Choices, High Blood Sugar (Hyperglycemia), Hypoglycemia (Low Blood Sugar), Low Salt Diet Dc, Limiting Fluids Dc, Diuretics Dc Admission Data Admit Date/Time: 05/26/20 20:10 Attending Provider: Bucky Servin Admit Provider: Harley Pettit Primary Care Provider: Elliot Whatley Other Providers: Muna Pastor ; [facility] ; Harley Pettit Other Interventions: Discharge Summary Assessment (RN) Last Done: 06/08/20 15:43
--- NOTE | 2020-06-09 14:00 | Coding Query ---
CODING QUERY To promote full compliance with coding requirements relating to patient care, provider participation is requested in all cases of voice network engineer uncertainty. Please assist us with the question(s) below: Coding Question(s): 1. There is documentation all through the record, including the Discharge Summary of, "She was treated empirically for SBP with ceftriaxone". Please specify below regarding the SBP. (x ) SBP is Spontaneous Bacterial Peritonitis ( ) SBP is Other: Please Specify 2. There is documentation of history of Alcoholism and Alcohol Dependence and Alcohol Withdrawal and Alcohol Abuse with Progress Notes 05/28 and for a few more Progress Notes there is documentation of, "current withdrawal symptoms are mild" and the Discharge Summary documents Alcohol Abuse. Please specify below, in your clinical opinion. (x ) Alcohol Withdrawal with current mild withdrawal symptoms on this admission ( ) Alcohol Abuse with No Alcohol Withdrawal ( ) Alcohol Dependence with No Withdrawal ( ) Other: Please Specify Physician's Response(s): Thank you Miya Granados Principal Diagnosis: "that condition established after study, to be chiefly responsible for occasioning the admission of the patient to the hospital for care." Co-Existing Principal Diagnosis: "when two or more diagnoses equally meet the criteria for principal diagnosis as determined by the circumstances of admission, diagnostic work up, and/or therapy provided, and the Alphabetic Index, Tabular List, or another coding guideline does not provide sequencing direction, any one of the diagnoses may be sequenced first." "When the physician has documented what appears to be a current diagnosis in the body of the record, but has not included the diagnosis in the final diagnostic statement, the physician should be asked whether the diagnosis should be added." (Source Coding [facility] 2 QTR90. p3-4) ERIC
--- NOTE | 2020-06-09 14:01 | Coding Query ---
MALNUTRITION To promote full compliance with coding requirements relating to patient care, physician participation is requested in all cases of service electrician uncertainty. Please assist us with the question(s) below: Please place an X within the parenthesis (x). If other, please document: "Malnutrition" is documented in this record through Discharge Summary. If possible, please check the box that provides a more specific diagnosis: ( x) Mild malnutrition ( ) Moderate malnutrition ( ) Severe malnutrition ( ) Protein malnutrition (kwashiorkor) ( ) Severe protein calorie malnutrition ( ) Protein calorie malnutrition, unspecified ( ) Other (please specify): Thank you Miya REYES
== END 2020-06-08 18:12 | disposition home or self-care (01) | DRG 432 ==
LOC: ED 12:50 → 1E 20:10 → SUATTDRO 20:10 → 1E 21:49 → 2S 06-01 02:26 → 2W 06-05 17:40

== ENCOUNTER 2020-11-10 15:32 | Observation (INO) ==
[~2020-11-10 15:32] MED LIST: GABAPENTIN 400 MG CAP PO SCH
[2020-11-10] MEDS ORDERED: MULTI-VITAMIN INFUSION 10 ML, THIAMINE HCL 100 MG, FOLIC ACID 1 MG in SODIUM CHLORIDE 0... IV ONE (16:03)
[2020-11-10] MEDS ORDERED: SODIUM CHLORIDE 0.9% 500 ML IV SCH (16:15)
[2020-11-10] MEDS ORDERED: LORazepam 2 MG/4 ML VIAL IV STA (16:19)
[2020-11-10] MEDS ORDERED: ATIVAN IV ALCOHOL WITHDRAWL IV SCH (16:30)
[2020-11-10 16:31] LABS: Basophils # (auto) 0.03 K/uL (0-0.2); Basophils % (auto) 0.8 %; Eosinophils # (auto) 0.03 K/uL (0-0.5); Eosinophils % (auto) 0.8 %; Hematocrit (blood only) 40.6 % (37-47); Lymphocytes # (auto) 1.15 K/uL (1.2-3.4); Lymphocytes % (auto) 29.9 %; Mean Corpuscular Hemoglobin 32.6 pg (25-34); Mean Corpuscular Hgb Conc 34.5 g/dL (32-36); Mean Corpuscular Volume 94.4 fL (80-100); Mean Platelet Volume 9.4 fL (7.4-10.4); Monocytes # (auto) 0.47 K/uL (0.11-0.59); Monocytes % (auto) 12.2 %; Neutrophils # (auto) 2.16 K/uL (1.4-6.5); Neutrophils % (auto) 56.3 %; Platelet Count 111 K/uL (130-400); RDW Coefficient of Variation 13.5 % (11.5-14.5); RDW Standard Deviation 46.6 fL (36.4-46.3); White Blood Count 3.84 K/uL (4.8-10.8)
[2020-11-10 16:48] LABS: Alanine Aminotransferase 76 U/L (12-78); Albumin Level 3.7 gm/dl (3.4-5.0); Aspartate Aminotransferase 336 U/L (15-37); BUN Creatinine Ratio 13.8 (10-20); Blood Urea Nitrogen 10 mg/dl (7-18); Calcium 9.8 mg/dl (8.5-10.1); Carbon Dioxide 26 mmol/L (21-32); Chloride 105 mmol/L (98-107); Est GFR (African American) 122.1 ml/min; Est GFR (Non-African American) 105.4 ml/min; Glucose 123 mg/dl (70-99); Lipase 34 U/L (73-393); Magnesium 2.1 mg/dl (1.8-2.4); Potassium 3.6 mmol/L (3.5-5.1); Sodium 140 mmol/L (136-145)
[2020-11-10 16:52] LABS: INR 1.4 (0.9-1.1)
[2020-11-10 16:53] LABS: Albumin Globulin Ratio 0.9 (0.9-2); Alkaline Phosphatase 204 U/L (45-117); Bilirubin,Total 1.9 mg/dl (0.2-1); Creatine Kinase 111 U/L (26-192); Globulin 4.2 gm/dl (2.5-4.0); Total Protein 7.9 gm/dl (6.4-8.2); Troponin I < 0.015 ng/ml (0-0.045)
--- NOTE | 2020-11-10 17:00 | Electrocardiogram Report ---
Test Reason : Blood Pressure : / mmHG Vent. Rate : 127 BPM Atrial Rate : 127 BPM P-R Int : 132 ms QRS Dur : 080 ms QT Int : 316 ms P-R-T Axes : 049 029 015 degrees QTc Int : 459 ms Sinus tachycardia Abnormal ECG When compared with ECG of 26-MAY-2020 12:55, No significant change was found Confirmed by Arnold Schaefer ([id number]) on 11/10/2020 5:00:31 PM Referred By: Confirmed By:Faisal Schaefer
[2020-11-10 17:04] LABS: Pregnancy Test, Serum Negative (Negative)
[2020-11-10] MEDS ORDERED: LORAZEPAM 3MG IV ACTIVE PROTOCOL IV PRN (17:09)
[2020-11-10] MEDS ORDERED: LORAZEPAM 1MG IV ACTIVE PROTOCOL IV PRN (17:09)
[2020-11-10] MEDS ORDERED: LORAZEPAM 2MG IV ACTIVE PROTOCOL IV PRN (17:09)
[2020-11-10 17:10] LABS: RBC Morphology Unremarkable
--- NOTE | 2020-11-10 17:26 | Emergency Department Note ---
Impression & Plan Alcohol withdrawal, Elevated LFTs, Tachycardia ED Provider Note INFORMANT: Patient ED PROVIDER(S): Elliot Gonzales MD CHIEF COMPLAINT: Alcohol withdrawal PLAN: Disposition: Admitted Condition: Good Outpatient prescription management: none Referral: None MEDICAL DECISION MAKING: Patient presented to emergency room complaining of alcohol withdrawal. She has a significant alcohol history. Her last drink was about 2 hours prior to arrival. She notes withdrawing usually within an hour or so of her last drink. Because of this she has been drinking regularly. Patient had an IV established. She was hydrated with normal saline. She was given a banana bag. Given the patient tachycardia and hypertension along with her symptoms of shakiness and anxiety she was given a IV Ativan. An alcohol withdrawal protocol was also ordered. Patient will require further management in the hospital. Consultation was made with the [facility] service. She was evaluated in the ER for further management. Triage Nursing notes reviewed and agree them. Vital Signs: reviewed and remarkable for tachycardia and hypertension. Differential diagnosis: Alcohol intoxication, withdrawal, toxicologic, infection, hypoglycemia, elect rolyte abnormalities, cardiac sources, intracerebral event, neurologic, trauma, as well as other pathologies. Diagnostics interpreted by me: ECG: Twelve-lead ECG reveals sinus tachycardia 127 bpm. Poor R wave progression. No ST elevation or depression. Normal axis. Normal QRS. No PVCs or PACs. Cardiac Monitoring:Cardiac monitoring ordered by me: The patient was placed on continuous cardiac monitoring and observed. It revealed a sinus tachycardic rhythm at 111 beats per minute without ectopy or evidence of dysrhythmia. Imaging studies: Deferred HPI: The patient is a 44 year old female who presents to the Emergency Room with complaints of alcohol withdrawal. This started this afternoon and is worsening. The patient also notes the following associated symptoms, anxious, palpitations, and shakes. The patient has taken no medication for relieving factors. Current pain is rated as 0/10. Patient has a hx of alcohol abuse and withdrawal. Last admitted to [facility] last month. Had a paracentesis done at that time. Pt denies LOC, headache, fevers, chills, diaphoresis, visual changes, neck pain, chest pain, breathing difficulties, nausea, vomiting, abdominal pain, back pain, melena, hematochezia, urinary symptoms, numbness, focal weakness, ly mphadenopathy, rash, or other complaints. ROS: See above HPI for pertinent positives & negatives. A total of 10 systems reviewed and were otherwise negative. PAST MEDICAL HISTORY:See Below , alcoholism PAST SURGICAL HISTORY:See Below, FAMILY HISTORY:See Below SOCIAL HISTORY:See Below, +ETOH HOME MEDICATIONS:See Below ALLERGIES:See Below VITALS:See Below PHYSICAL EXAMINATION: GENERAL: Awake, alert, well-appearing, in no distress HENT: Normocephalic, atraumatic. Oropharynx unremarkable. EYES: Normal conjunctiva. Sclera mildly-icteric. NECK: Inspection normal. Non-tender. Supple. No nuchal rigidity. FROM. No masses. RESPIRATORY: Clear to auscultation. No wheezes. No rales. Normal respiratory effort. CARDIAC: Tachycardic rate. Normal rhythm. No murmurs. No rubs. Extremities warm and well perfused. Pulses equal. No JVD. GI: Soft, mildly-distended. Positive fluid wave. Hepatomegaly noted. No tenderness to palpation. No rebound or guarding. No masses. RECTAL: Deferred. MUSCULOSKELETAL: Atraumatic. Chest examination reveals no tenderness. The back is symmetrical on inspection without obvious abnormality. There is no CVA tenderness to palpation. No joint edema. LOWER EXTREMITIES: Calves are equal size bilaterally and non-tender. No edema. No discoloration. NEURO: Normal sensorium. No sensory or motor deficits noted. SKIN: Spider telangiectasias. no rash. Mild jaundice noted. Elliot Gonzales MD Past Med/Surg History Medical History Alcohol abuse Anxiety Asthma Diabetes mellitus type 1 Surgical History History of dental surgery History of esophagogastroduodenoscopy (EGD) Family History Father Prediabetes Grandfather (Paternal) Diabetes Mother Hypertension MVP (mitral valve prolapse) Social History Smoking Status: Former smoker Age Quit Using Tobacco: 39; packs per day: 1; Years Smoked: 2; Number of Years Since Quit: 4; Second Hand Exposure: No; Do You Dip or Chew Tobacco: No; Tobacco Cessation Education Requested by Patient: No Hx Alcohol Use: Yes Alcohol type: wine and hard liquor Alcohol type Comment: 4 glasses wine daily Hx Substance Use: No Preferred Language: Citizen Of [place] Communication Ability: Effective Visual Impairment: No Limitations Web Applications Developer Required: No Beliefs That Will Affect Care: None marital status: marital status details: Single parent Current Living Situation: Alone current occupational status: unemployed Other Information That Helps Us Care for You: No Feels Safe at Home: Yes Safety Concerns: Feels Safe At This Time Childhood Exposure to Second-Hand Smoke: No Assistive Devices: None Allergies Allergies Allergy/AdvReac Type Severity Reaction Status Date / Time theophylline AdvReac Unknown VERTIGO Verified 11/10/20 18:40 Home Meds Home Medications Medication Instructions Recorded Confirmed fluticasone propion-salmeterol 1 inh INHALATION QAM 02/27/19 11/10/20 [Advair Diskus] albuterol sulfate [Ventolin HFA] 2 puff INHALATION Q6H PRN 07/23/19 11/10/20 Novolin 70/30 U-100 Insulin 15 unit SUBCUT QAM 11/10/20 11/10/20 famotidine 20 mg PO DAILY PRN 11/10/20 11/10/20 insulin asp prt-insulin aspart 10 unit SUBCUT QPM 11/10/20 11/10/20 [Novolog Mix 70-30 U-100 Insuln] omeprazole 20 mg PO DAILY 11/10/20 11/10/20 vitamin B complex-folic acid 1 tab PO DAILY 11/10/20 11/10/20 Previous Rx's Medication Instructions Recorded multivitamin [Daily-Harris] 1 tab PO QAM #0 tab 07/27/19 furosemide 20 mg PO QAM #30 tab 06/08/20 spironolactone 25 mg PO QAM #30 tab 06/08/20 Results & Data (ED) Vital Signs Vital Signs - 24 hr 11/10/20 15:36 11/10/20 16:50 11/10/20 16:54 Temperature 37.3 C Temperature Source Oral Pulse Rate 142 H 106 H Pulse Rate [Apical] 111 H Pulse Rate from SpO2 Sensor Pulse Rhythm Regular Pulse Strength Normal Respiratory Rate 20 23 16 Respiratory Effort / Characteristics Non-Labored Spontaneous Respiratory Depth Normal Respiratory Pattern Regular Blood Pressure 137/91 127/95 Blood Pressure [Right Arm] 127/95 Blood Pressure Mean 106 105 Blood Pressure Mean [Right Arm] 105 Blood Pressure Position Sitting Pulse Oximetry 95 Oxygen Delivery Method Room Air Sepsis Recent Fever Within 48 Hours No Sepsis New/Unexplained Change in Mental Status No Sepsis Action Taken by Nursing No Action Required 11/10/20 16:55 11/10/20 17:00 11/10/20 17:01 Temperature Temperature Source Pulse Rate 105 H 103 H 103 H Pulse Rate [Apical] Pulse Rate from SpO2 Sensor Pulse Rhythm Pulse Strength Respiratory Rate 20 20 17 Respiratory Effort / Characteristics Respiratory Depth Respiratory Pattern Blood Pressure 112/78 Blood Pressure [Right Arm] Blood Pressure Mean 89 Blood Pressure Mean [Right Arm] Blood Pressure Position Pulse Oximetry Oxygen Delivery Method Sepsis Recent Fever Within 48 Hours Sepsis New/Unexplained Change in Mental Status Sepsis Action Taken by Nursing 11/10/20 17:10 11/10/20 17:20 11/10/20 17:30 Temperature Temperature Source Pulse Rate 104 H 98 H 105 H Pulse Rate [Apical] Pulse Rate from SpO2 Sensor 98 H 105 H Pulse Rhythm Pulse Strength Respiratory Rate 21 21 15 Respiratory Effort / Characteristics Respiratory Depth Respiratory Pattern Blood Pressure Blood Pressure [Right Arm] Blood Pressure Mean Blood Pressure Mean [Right Arm] Blood Pressure Position Pulse Oximetry 90 96 Oxygen Delivery Method Sepsis Recent Fever Within 48 Hours Sepsis New/Unexplained Change in Mental Status Sepsis Action Taken by Nursing 11/10/20 17:31 11/10/20 17:40 11/10/20 17:50 Temperature Temperature Source Pulse Rate 104 H 103 H 98 H Pulse Rate [Apical] Pulse Rate from SpO2 Sensor 105 H 98 H Pulse Rhythm Pulse Strength Respiratory Rate 14 18 28 H Respiratory Effort / Characteristics Respiratory Depth Respiratory Pattern Blood Pressure 98/69 L Blood Pressure [Right Arm] Blood Pressure Mean 78 Blood Pressure Mean [Right Arm] Blood Pressure Position Pulse Oximetry 97 85 L Oxygen Delivery Method Sepsis Recent Fever Within 48 Hours Sepsis New/Unexplained Change in Mental Status Sepsis Action Taken by Nursing 11/10/20 18:00 11/10/20 18:01 11/10/20 18:10 Temperature Temperature Source Pulse Rate 109 H 107 H 104 H Pulse Rate [Apical] Pulse Rate from SpO2 Sensor 107 H 108 H 104 H Pulse Rhythm Pulse Strength Respiratory Rate 16 13 14 Respiratory Effort / Characteristics Respiratory Depth Respiratory Pattern Blood Pressure 123/76 Blood Pressure [Right Arm] Blood Pressure Mean 91 Blood Pressure Mean [Right Arm] Blood Pressure Position Pulse Oximetry 98 98 99 Oxygen Delivery Method Sepsis Recent Fever Within 48 Hours Sepsis New/Unexplained Change in Mental Status Sepsis Action Taken by Nursing 11/10/20 18:20 11/10/20 18:30 11/10/20 18:31 Temperature Temperature Source Pulse Rate 105 H 108 H 112 H Pulse Rate [Apical] Pulse Rate from SpO2 Sensor Pulse Rhythm Pulse Strength Respiratory Rate 19 20 17 Respiratory Effort / Characteristics Respiratory Depth Respiratory Pattern Blood Pressure 90/63 L Blood Pressure [Right Arm] Blood Pressure Mean 72 Blood Pressure Mean [Right Arm] Blood Pressure Position Pulse Oximetry Oxygen Delivery Method Sepsis Recent Fever Within 48 Hours Sepsis New/Unexplained Change in Mental Status Sepsis Action Taken by Nursing Laboratory Data Result diagrams: 11/10/20 16:08 11/10/20 16:08 Lab Results 11/10/20 11/10/20 11/10/20 Range/Units 16:08 16:08 16:08 WBC (4.8-10.8) K/uL RBC (4.2-5.4) M/uL Hgb (12.0-16.0) g/dL Hct (37-47) % MCV (80-100) fL MCH (25-34) pg MCHC (32-36) g/dL RDW Std Deviation (36.4-46.3) fL RDW Coeff of Suzanne (11.5-14.5) % Plt Count (130-400) K/uL MPV (7.4-10.4) fL Immature Gran % (Auto) % Neut % (Auto) % Lymph % (Auto) % [place] % (Auto) % Eos % (Auto) % Baso % (Auto) % Neut # (Auto) (1.4-6.5) K/uL Lymph # (Auto) (1.2-3.4) K/uL [place] # (Auto) (0.11-0.59) K/uL Eos # (Auto) (0-0.5) K/uL Baso # (Auto) (0-0.2) K/uL Immature Gran # (Auto) (0.00-0.02) K/uL RBC Morphology PT 14.0 H (9.0-12.0) Seconds INR 1.4 H (0.9-1.1) Sodium 140 (136-145) mmol/L Potassium 3.6 (3.5-5.1) mmol/L Chloride 105 (98-107) mmol/L Carbon Dioxide 26 (21-32) mmol/L Anion Gap 9.0 (3-11) BUN 10 (7-18) mg/dl Creatinine 0.70 (0.6-1.2) mg/dl Est Cr Clr Drug Dosing Not Reportable Est GFR ( Amer) 122.1 ml/min Est GFR (Non-Af Amer) 105.4 ml/min BUN/Creatinine Ratio 13.8 (10-20) Glucose 123 H (70-99) mg/dl Calcium 9.8 (8.5-10.1) mg/dl Magnesium 2.1 (1.8-2.4) mg/dl Total Bilirubin 1.9 H (0.2-1) mg/dl AST 336 H (15-37) U/L ALT 76 (12-78) U/L Alkaline Phosphatase 204 H (45-117) U/L Total Creatine Kinase 111 (26-192) U/L Troponin I < 0.015 (0-0.045) ng/ml Total Protein 7.9 (6.4-8.2) gm/dl Albumin 3.7 (3.4-5.0) gm/dl Globulin 4.2 H (2.5-4.0) gm/dl Albumin/Globulin Ratio 0.9 (0.9-2) Lipase 34 L (73-393) U/L HCG, Qual (Negative) Ethyl Alcohol mg/dL 325.0 H (0-3) mg/dl COVID-19 Eval Order SARS-CoV-2 (PCR) (Negative) 11/10/20 11/10/20 11/10/20 Range/Units 16:08 16:08 17:20 WBC 3.84 L (4.8-10.8) K/uL RBC 4.30 (4.2-5.4) M/uL Hgb 14.0 (12.0-16.0) g/dL Hct 40.6 (37-47) % MCV 94.4 (80-100) fL MCH 32.6 (25-34) pg MCHC 34.5 (32-36) g/dL RDW Std Deviation 46.6 H (36.4-46.3) fL RDW Coeff of Suzanne 13.5 (11.5-14.5) % Plt Count 111 L (130-400) K/uL MPV 9.4 (7.4-10.4) fL Immature Gran % (Auto) 0.0 % Neut % (Auto) 56.3 % Lymph % (Auto) 29.9 % [place] % (Auto) 12.2 % Eos % (Auto) 0.8 % Baso % (Auto) 0.8 % Neut # (Auto) 2.16 (1.4-6.5) K/uL Lymph # (Auto) 1.15 L (1.2-3.4) K/uL [place] # (Auto) 0.47 (0.11-0.59) K/uL Eos # (Auto) 0.03 (0-0.5) K/uL Baso # (Auto) 0.03 (0-0.2) K/uL Immature Gran # (Auto) 0.00 (0.00-0.02) K/uL RBC Morphology Unremarkable PT (9.0-12.0) Seconds INR (0.9-1.1) Sodium (136-145) mmol/L Potassium (3.5-5.1) mmol/L Chloride (98-107) mmol/L Carbon Dioxide (21-32) mmol/L Anion Gap (3-11) BUN (7-18) mg/dl Creatinine (0.6-1.2) mg/dl Est Cr Clr Drug Dosing Est GFR ( Amer) ml/min Est GFR (Non-Af Amer) ml/min BUN/Creatinine Ratio (10-20) Glucose (70-99) mg/dl Calcium (8.5-10.1) mg/dl Magnesium (1.8-2.4) mg/dl Total Bilirubin (0.2-1) mg/dl AST (15-37) U/L ALT (12-78) U/L Alkaline Phosphatase (45-117) U/L Total Creatine Kinase (26-192) U/L Troponin I (0-0.045) ng/ml Total Protein (6.4-8.2) gm/dl Albumin (3.4-5.0) gm/dl Globulin (2.5-4.0) gm/dl Albumin/Globulin Ratio (0.9-2) Lipase (73-393) U/L HCG, Qual Negative (Negative) Ethyl Alcohol mg/dL (0-3) mg/dl COVID-19 Eval Order Covid19 at [facility] SARS-CoV-2 (PCR) (Negative) 11/10/20 Range/Units 17:20 WBC (4.8-10.8) K/uL RBC (4.2-5.4) M/uL Hgb (12.0-16.0) g/dL Hct (37-47) % MCV (80-100) fL MCH (25-34) pg MCHC (32-36) g/dL RDW Std Deviation (36.4-46.3) fL RDW Coeff of Suzanne (11.5-14.5) % Plt Count (130-400) K/uL MPV (7.4-10.4) fL Immature Gran % (Auto) % Neut % (Auto) % Lymph % (Auto) % [place] % (Auto) % Eos % (Auto) % Baso % (Auto) % Neut # (Auto) (1.4-6.5) K/uL Lymph # (Auto) (1.2-3.4) K/uL [place] # (Auto) (0.11-0.59) K/uL Eos # (Auto) (0-0.5) K/uL Baso # (Auto) (0-0.2) K/uL Immature Gran # (Auto) (0.00-0.02) K/uL RBC Morphology PT (9.0-12.0) Seconds INR (0.9-1.1) Sodium (136-145) mmol/L Potassium (3.5-5.1) mmol/L Chloride (98-107) mmol/L Carbon Dioxide (21-32) mmol/L Anion Gap (3-11) BUN (7-18) mg/dl Creatinine (0.6-1.2) mg/dl Est Cr Clr Drug Dosing Est GFR ( Amer) ml/min Est GFR (Non-Af Amer) ml/min BUN/Creatinine Ratio (10-20) Glucose (70-99) mg/dl Calcium (8.5-10.1) mg/dl Magnesium (1.8-2.4) mg/dl Total Bilirubin (0.2-1) mg/dl AST (15-37) U/L ALT (12-78) U/L Alkaline Phosphatase (45-117) U/L Total Creatine Kinase (26-192) U/L Troponin I (0-0.045) ng/ml Total Protein (6.4-8.2) gm/dl Albumin (3.4-5.0) gm/dl Globulin (2.5-4.0) gm/dl Albumin/Globulin Ratio (0.9-2) Lipase (73-393) U/L HCG, Qual (Negative) Ethyl Alcohol mg/dL (0-3) mg/dl COVID-19 Eval Order SARS-CoV-2 (PCR) NEGATIVE (Negative) Administered Medications Enoxaparin Sodium (Enoxaparin Inj 40 Mg/0.4 Ml Syr) 40 mg SQ Q24H ARMANI Stop: 12/10/20 20:59 Last Admin: 11/10/20 22:10 Dose: 40 mg Documented by: [id number] Lactated Ringer's (Lr) 1,000 mls @ 80 mls/hr IV .[id number] [facility] Stop: 12/10/20 18:14 Last Admin: 11/10/20 19:56 Dose: 80 mls/hr Documented by: [id number] Folic Acid 1 mg/ Syringe 10 mls @ 5 mls/min IV QAM [facility] Stop: 12/10/20 20:45 Last Admin: 11/10/20 21:51 Dose: 5 mls/min Documented by: [id number] Thiamine HCl 500 mg/ Sodium (Chloride) 105 mls @ 210 mls/hr IV Q8 [facility]MANI Stop: 12/10/20 21:14 Last Infusion: 11/10/20 22:37 Dose: 0 mls/hr Documented by: [id number] Admin: 11/10/20 22:07 Dose: 210 mls/hr Documented by: [id number] Insulin Aspart (Insulin Aspart 100 Units/Ml 3 Ml Pen) 0 units SC ACHS [facility] Stop: 12/10/20 20:59 Last Admin: 11/10/20 22:32 Dose: Not Given Documented by: [id number] Cosigned by: [id number] Lorazepam (Lorazepam 1 Mg Tab) 1 - 3 mg PO UD PRN; Protocol PRN Reason: EtoH Withdrawal AWSS 6-10+ Stop: 12/10/20 20:45 Last Admin: 11/10/20 22:29 Dose: 1 mg Documented by: [id number] Potassium Chloride (Potassium Chloride 10 Meq Tabcr) 10 meq PO BID ARMANI Stop: 12/10/20 20:59 Last Admin: 11/10/20 22:13 Dose: 10 meq Documented by: [id number] Discontinued Medications Gabapentin (Gabapentin 400 Mg Cap) 800 mg PO NOW ONE Stop: 11/10/20 17:51 Last Admin: 11/10/20 19:16 Dose: 800 mg Documented by: [id number] Sodium Chloride (Nss) 500 mls @ 999 mls/hr IV .Q31M [facility]MANI Stop: 11/10/20 16:45 Last Infusion: 11/10/20 19:43 Dose: 0 mls/hr Documented by: [id number] Admin: 11/10/20 19:16 Dose: 999 mls/hr Documented by: [id number] Multivitamins 10 ml/ Thiamine HCl 100 mg/ Folic Acid 1 mg/Sodium Chloride 1 ,011.2 mls @ 1,011.2 mls/hr IV .Q1H ONE Stop: 11/10/20 17:02 Last Infusion: 11/10/20 17:50 Dose: 0 mls/hr Documented by: [id number] Admin: 11/10/20 16:53 Dose: 1,011.2 mls/hr Documented by: [id number] Lorazepam (Ativan) 2 mg in 4 mls @ 4 mls/min IV NOW STA Stop: 11/10/20 16:20 Last Admin: 11/10/20 16:46 Dose: 4 mls/min Documented by: [id number] Thiamine HCl 400 mg/ Sodium (Chloride) 54 mls @ 208 mls/hr IV NOW STA Stop: 11/10/20 18:04 Last Infusion: 11/10/20 19:43 Dose: 0 mls/hr Documented by: [id number] Admin: 11/10/20 19:16 Dose: 208 mls/hr Documented by: [id number] Lorazepam (Ativan) 1 mg in 2 mls @ 2 mls/min IV NOW STA Stop: 11/10/20 17:45 Last Admin: 11/10/20 18:00 Dose: 2 mls/min Documented by: [id number] Discharge Plan Visit Data Chief Complaint: Detox Request Stated Complaint: DETOX ED Provider: Elliot Gonzales Discharge Problem: Alcohol withdrawal, Elevated LFTs, Tachycardia Patient Disposition: Admitted As Inpatient Discharge Instructions Interventions: ED Discharge Assessment Last Done: 11/10/20 20:30 Discharge Problem: Alcohol withdrawal Qualifiers: Complication of substance-induced condition: uncomplicated Qualified Code(s): F10.230 - Alcohol dependence with withdrawal, uncomplicated
[2020-11-10] MEDS ORDERED: LORazepam 1 MG/2 ML VIAL IV STA (17:44)
[2020-11-10] MEDS ORDERED: THIAMINE HCL 400 MG in SODIUM CHLORIDE 0.9% 50 ML IV STA (17:49)
[2020-11-10] MEDS ORDERED: GABAPENTIN 400 MG CAP PO ONE (17:50)
--- NOTE | 2020-11-10 18:41 | History & Physical Report ---
Date of Service November 10, 2020 Assessment & Plan (1) Alcohol abuse: As per HPI here for self requested Detox - support her efforts- ETOH on admission 325 - AAWS prortocol with gabapentin and Ativan (2) Alcohol withdrawal: As above- if patient requires elevation in sedation, can add on scheduled Librium q6 hours - Patient received 4mg IV Ativan in the EMD and loaded with 800mg Gabapentin - Thiamine 500 TID, Folate 1 mg daily - Follow CMP and electrolytes, and INR daily - Normal hemoglobin and MCV (3) Cirrhosis: No overt ascites on exam, non tender abdomen and is soft - - MELD- 13 - Discriminatory function- 20 - INR 1.4 - AST 336, total bili 1.9 - Continue Lasix 20 mg daily - Continue spironolactone 20 mg po daily - liver ultrasound on admission (4) Diabetes mellitus type 1: Diagnosed as type 1 per chart review - Continue with sliding scale insulin 20 CF, 1:15 carb ratio - HGB A1C in am glycemic consult (5) Asthma: Continue albuterol MOODY q6 prn Continue Advair 2 puffs daily (6) Anxiety: Will be covered with AAWS no acute needs (7) GERD (gastroesophageal reflux disease): Continue omeprazole 20 mg PO daily and famotidine History of Present Illness Primary Care Provider: NO PCP 44 YOF with past medical history of asthma, MDD, anxiety, DM on insulin, DKA and pancreatitis, alcoholic cirrhosis, alcohol abuse. Patient self refers today to start detoxification from alcohol abuse. Patient reports she has tried to do this 5 times in the past and has continued to relapse. She has tried AA, online programs, and self reading programs, as well as leaving to go to her parents in August, where she went into 's and was transferred to [facility] for treatment. She was recently seen here at [facility] in May, where she was jaundiced with elevated MELD and discriminatory function scores requiring steroid therapy. She reports that she has never seized. She has been drinks wine and/or Vodka to the point of intoxication every day, and this is reported as for the past 2 years. Her presentation today compared to other admissions appears to be much more stable. Her MELD is 13, with discriminatory function sc ore of 20.3, she is not altered, jaundiced or icteric. Her last drink was about 5 hours prior admission. She will be admitted to PCU for detox. She has done well in the past with gabapentin and Lorazepam protocols. Will continue those as well as start on Wernicke dose thiamine. Patient recently changed PCP to [facility]. Of note, she did ask upon admission if she could go home tomorrow for her daughter's prom to help her get dressed. I did tell her that with her sedating medications and adminission to the hospital for medical care she would not be advised or be able to go on a day-pass. If she anthony leave it would be against medical advice. She verbalized understanding of this. Allergies Allergy/AdvReac Type Severity Reaction Status Date / Time theophylline AdvReac Unknown VERTIGO Verified 11/10/20 18:40 Home Medications Medication Instructions Recorded Confirmed Type fluticasone propion-salmeterol 1 inh INHALATION QAM 02/27/19 11/10/20 History [Advair Diskus] albuterol sulfate [Ventolin HFA] 2 puff INHALATION Q6H PRN 07/23/19 11/10/20 History multivitamin [Daily-Harris] 1 tab PO QAM #0 tab 07/27/19 11/10/20 Rx furosemide 20 mg PO QAM #30 tab 06/08/20 11/10/20 Rx spironolactone 25 mg PO QAM #30 tab 06/08/20 11/10/20 Rx Novolin 70/30 U-100 Insulin 15 unit SUBCUT QAM 11/10/20 11/10/20 History famotidine 20 mg PO DAILY PRN 11/10/20 11/10/20 History insulin asp prt-insulin aspart 10 unit SUBCUT QPM 11/10/20 11/10/20 History [Novolog Mix 70-30 U-100 Insuln] omeprazole 20 mg PO DAILY 11/10/20 11/10/20 History vitamin B complex-folic acid 1 tab PO DAILY 11/10/20 11/10/20 History Past Med/Surg History Medical History Alcohol abuse Anxiety Asthma Diabetes mellitus type 1 Surgical History History of dental surgery History of esophagogastroduodenoscopy (EGD) Family History Father Prediabetes Grandfather (Paternal) Diabetes Mother Hypertension MVP (mitral valve prolapse) Social History Smoking Status: Former smoker Age Quit Using Tobacco: 39; packs per day: 1; Years Smoked: 2; Number of Years Since Quit: 4; Second Hand Exposure: No; Hx Alcohol Use: Yes Alcohol type: wine and hard liquor Alcohol type Comment: 4 glasses wine daily Hx Substance Use: Yes (pt stated doesn't use now) Preferred Language: Yakut Communication Ability: Effective Visual Impairment: No Limitations Messenger Copy Required: No Beliefs That Will Affect Care: None marital status: marital status details: Single parent Current Living Situation: Alone current occupational status: unemployed Feels Safe at Home: Yes Childhood Exposure to Second-Hand Smoke: No Assistive Devices: Walker Review of Systems Review of Systems: REVIEW OF SYSTEMS: Constitutional: No fever, sweats or chills Eyes: No diplopia, no worsening or blurred vision ENT: normal hearing, no trouble swallowing Respiratory: No cough, sputum, dyspnea at rest or on exertion Cardiovascular: No chest pain, tightness or palpitations Abdomen: No pain, nausea, vomiting, diarrhea or constipation Musculoskeletal: No joint pain, calf pain, swelling Neurologic: No weakness, numbness/tingling, or balance problems Psychiatric: (+) alchol abuse, anxiety and depression Skin: No rash or itch Physical Exam Physical Exam: PHYSICAL EXAM: General: awake, alert, no apparent distress, she feels sleepy but is appropriate Head: Normocephalic, atraumatic ENT: PERRLA, EOMI, no icterus, no nystagmus, no pharyngeal exudate, mucous mem branes moist Neuro: AAO x 3, speech clear and appropriate, strength intact bilaterally 5/5, sensation intact and equal all extremities and dermatomes, no pronator drift, shakiness with hands extended out, no headache, no hallucinations. Chest: equal rise and fall of the chest, no accessory muscle use, no heaves or thrills, Clear to auscultation, on room air, Cardiac: Regular rate and rhythm, telemetry reviewed- tachycardia, skin warm dry, cap refill <3 seconds, peripheral pulses +2 no JVD, no murmur, no edema GI: NABS x 4 quadrants, soft but protuberent, liver enlarged past the ribs, nontender to palpation, no rebound, guarding or tenderness : Spontaneously voiding, no pain, no CVA tenderness, Extremities: Normal inspection, no peripheral edema or erythema, calfs nontender to palpation Psych: Normal mood and affect Skin: no rash or erythema Results & Data Results & Data ([facility]) Vital Signs (Past 12 Hours) Vital Signs Temp Pulse Pulse Resp BP BP Pulse Ox 11/10/20 18:00 109 H 16 123/76 98 11/10/20 17:50 98 H 28 H 85 L 11/10/20 17:40 103 H 18 11/10/20 17:31 104 H 14 98/69 L 97 11/10/20 17:30 105 H 15 96 11/10/20 17:20 98 H 21 90 11/10/20 17:10 104 H 21 11/10/20 17:01 103 H 17 11/10/20 17:00 103 H 20 112/78 11/10/20 16:55 105 H 20 11/10/20 16:54 111 H 16 127/95 11/10/20 16:50 106 H 23 127/95 11/10/20 15:36 37.3 C 142 H 20 137/91 95 Laboratory Results Abnormal lab results 11/10/20 11/10/20 11/10/20 Range/Units 16:08 16:08 16:08 WBC (4.8-10.8) K/uL RDW Std Deviation (36.4-46.3) fL Plt Count (130-400) K/uL Lymph # (Auto) (1.2-3.4) K/uL PT 14.0 H (9.0-12.0) Seconds INR 1.4 H (0.9-1.1) Glucose 123 H (70-99) mg/dl Total Bilirubin 1.9 H (0.2-1) mg/dl AST 336 H (15-37) U/L Alkaline Phosphatase 204 H (45-117) U/L Globulin 4.2 H (2.5-4.0) gm/dl Lipase 34 L (73-393) U/L Ethyl Alcohol mg/dL 325.0 H (0-3) mg/dl 11/10/20 Range/Units 16:08 WBC 3.84 L (4.8-10.8) K/uL RDW Std Deviation 46.6 H (36.4-46.3) fL Plt Count 111 L (130-400) K/uL Lymph # (Auto) 1.15 L (1.2-3.4) K/uL PT (9.0-12.0) Seconds INR (0.9-1.1) Glucose (70-99) mg/dl Total Bilirubin (0.2-1) mg/dl AST (15-37) U/L Alkaline Phosphatase (45-117) U/L Globulin (2.5-4.0) gm/dl Lipase (73-393) U/L Ethyl Alcohol mg/dL (0-3) mg/dl Diagnostic Findings None to display Medications Administered Discontinued Medications Multivitamins 10 ml/ Thiamine HCl 100 mg/ Folic Acid 1 mg/Sodium Chloride 1,011.2 mls @ 1,011.2 mls/hr IV .Q1H ONE Stop: 11/10/20 17:02 Last Infusion: 11/10/20 17:50 Dose: 0 mls/hr Documented by: [id number] Admin: 11/10/20 16:53 Dose: 1,011.2 mls/hr Documented by: [id number] Lorazepam (Ativan) 2 mg in 4 mls @ 4 mls/min IV NOW STA Stop: 11/10/20 16:20 Last Admin: 11/10/20 16:46 Dose: 4 mls/min Documented by: [id number] Lorazepam (Ativan) 1 mg in 2 mls @ 2 mls/min IV NOW STA Stop: 11/10/20 17:45 Last Admin: 11/10/20 18:00 Dose: 2 mls/min Documented by: [id number] Discontinued Medications Multivitamins 10 ml/ Thiamine HCl 100 mg/ Folic Acid 1 mg/Sodium Chloride 1,011.2 mls @ 1,011.2 mls/hr IV .Q1H ONE Stop: 11/10/20 17:02 Last Infusion: 11/10/20 17:50 Dose: 0 mls/hr Documented by: [id number] Admin: 11/10/20 16:53 Dose: 1,011.2 mls/hr Documented by: [id number] Lorazepam (Ativan) 2 mg in 4 mls @ 4 mls/min IV NOW STA Stop: 11/10/20 16:20 Last Admin: 11/10/20 16:46 Dose: 4 mls/min Documented by: [id number] Lorazepam (Ativan) 1 mg in 2 mls @ 2 mls/min IV NOW STA Stop: 11/10/20 17:45 Last Admin: 11/10/20 18:00 Dose: 2 mls/min Documented by: [id number] ECG Additional Comments: Vent. Rate : 127 BPM Atrial Rate : 127 BPM P-R Int : 132 ms QRS Dur : 080 ms QT Int : 316 ms P-R-T Axes : 049 029 015 degrees QTc Int : 459 ms Sinus tachycardia Abnormal ECG When compared with ECG of 26-MAY-2020 12:55, No significant change was found Code Status & VTE Plan Code Status CODE: FULL VTE: SCD's, Lovenox 40 sub q daily Supervising Physician Co-Signing Physician Notes Patient was seen and examined independently I discussed the case with Antoine LANDIN I reviewed pertinent past medical social family history and also the plan of care and agree with the plan of care. Patient is inebriated this point time she states she is going to do at this time. She also states she wants to try to leave to see her daughters graduation which is tomorrow. Overall her laboratories look improved from her previous stay. She is physically inebriated she has significant hepatomegaly easily palpated on exam her clinic exam also is for what appears to be very limited ascites. Alcohol detoxification with the Ativan scale, gabapentin, consider dosing Librium, thiamine. Type 1 diabetes recently diagnosed will have glycemic management consult A1c in the morning Any exceptions will be noted below PG Care Time/CCT Total # of Minutes Spent Total Time Spent with Patient: Total time spent is greater than 50% in coordination of care (as documented) at patient's floor/unit and/or counseling patient: Coding Level of Care Code 54827 Initial Inpt Care Lvl 3 Diagnoses Alcohol abuse F10.10 Alcohol withdrawal F10.230 Complication of substance-induced condition: uncomplicated Cirrhosis K70.30 Ascites presence: unspecified Hepatic cirrhosis type: alcoholic cirrhosis Diabetes mellitus type 1 E10.9 Diabetes mellitus complication status: without complication Asthma J45.909 Asthma complication type: unspecified Asthma persistence: unspecified Asthma severity: unspecified severity Anxiety F41.9 GERD (gastroesophageal reflux disease) K21.9 Esophagitis presence: without esophagitis (1) Diabetes mellitus type 1 Diabetes mellitus complication status: without complication Qualified Code(s): E10.9 - Type 1 diabetes mellitus without complications (2) Alcohol withdrawal Complication of substance-induced condition: uncomplicated Qualified Code(s): F10.230 - Alcohol dependence with withdrawal, uncomplicated (3) Cirrhosis Ascites presence: unspecified Hepatic cirrhosis type: alcoholic cirrhosis Qualified Code(s): K70.30 - Alcoholic cirrhosis of liver without ascites (4) GERD (gastroesophageal reflux disease) Esophagitis presence: without esophagitis Qualified Code(s): K21.9 - Gastro- esophageal reflux disease without esophagitis (5) Asthma Asthma complication type: unspecified Asthma persistence: unspecified Asthma severity: unspecified severity Qualified Code(s): J45.909 - Unspecified asthma, uncomplicated
[2020-11-10] MEDS: LACTATED RINGER'S 1,000 ML IV SCH (19:56)
[2020-11-10] MEDS ORDERED: GLUCAGON FOR INJ 1 MG VIAL SQ PRN (20:46)
[2020-11-10] MEDS ORDERED: POLYETHYLENE (MIRALAX) 17 GM PACK PO PRN (20:46)
[2020-11-10] MEDS ORDERED: FAMOTIDINE 20 MG TAB PO PRN (20:46)
[2020-11-10] MEDS ORDERED: GLUCOSE 40% GEL 15 GM TUBE PO PRN (20:46)
[2020-11-10] MEDS ORDERED: GLUCOSE 10 TABS/TUBE PO PRN (20:46)
[2020-11-10] MEDS ORDERED: ONDANSETRON INJ 2 MG/ML 2 ML VIAL IV PRN (20:46)
[2020-11-10] MEDS ORDERED: ALBUTEROL HFA 8 GM INHALER INH PRN ×2 (20:46)
[2020-11-10] MEDS ORDERED: CARBOHYDRATES FOR HYPOGLYCEMIA PO PRN (20:46)
[2020-11-10] MEDS ORDERED: GABAPENTIN 800MG ALCOHOL WITHDRAWAL LOAD PO STA (20:46)
[2020-11-10] MEDS ORDERED: DEXTROSE 50% 50 ML SYRINGE IV PRN (20:46)
[2020-11-10] MEDS ORDERED: ACETAMINOPHEN 325 MG TAB PO PRN (20:46)
[2020-11-10] MEDS ORDERED: PHARMACY GLYCEMIC MGMT CONSULT PRN (21:00)
[2020-11-10] MEDS ORDERED: THIAMINE HCL 500 MG in SYRINGE 9 ML IV SCH (21:00)
[2020-11-10] MEDS: FOLIC ACID 1 MG in SYRINGE 9.8 ML IV SCH (21:51)
[2020-11-10] MEDS: THIAMINE HCL 500 MG in 0.9 % SODIUM CHLORIDE 100 ML IV SCH (22:07)
[2020-11-10] MEDS: ENOXAPARIN INJ 40 MG/0.4 ML SYR SQ SCH (22:10)
[2020-11-10] MEDS: POTASSIUM CHLORIDE 10 MEQ TABCR PO SCH (22:13)
[2020-11-10] MEDS: LORazepam 1 MG TAB PO PRN (22:29)
[2020-11-10] MEDS: INSULIN ASPART 100 UNITS/ML 3 ML PEN SC SCH (22:32)
[2020-11-10 23:04] LABS: Appearance Urine Cloudy (Clear); Bacteria Urine Automated Negative (Negative); Blood Urine Trace (Negative); Color Urine Dark Yellow; Epithelial Cell Urine Auto >30 /lpf (0-5); Glucose Urine UA Negative (Negative); Ketones Urine 2+ (Negative); Leukocyte Esterase Urine Negative (Negative); Nitrite Urine Negative (Negative); Protein Urine 1+ (Negative); Specific Gravity Urine 1.018 (1.000-1.030); Urobilinogen Urine Negative (Negative)
[2020-11-10 23:06] LABS: Bilirubin Urine 1+ (Negative)
[2020-11-10 23:14] LABS: Amphetamines+Metham, Urine Neg (Neg); Barbiturates, Urine Neg (Neg); Benzodiazepine, Urine Neg (Neg); Cocaine, Urine Neg (Neg); MDMA (Ecstacy), Urine Neg (Neg); Methadone, Urine Neg (Neg); Opiate, Urine Neg (Neg); Phencyclidine, Urine Neg (Neg)
[2020-11-11] MEDS: GABAPENTIN 400 MG CAP PO SCH ×4 (01:08→23:51)
[2020-11-11] MEDS ORDERED: INSULIN ASPART 100 UNITS/ML 3 ML PEN SC SCH (02:00)
[2020-11-11] MEDS: THIAMINE HCL 500 MG in 0.9 % SODIUM CHLORIDE 100 ML IV SCH ×3 (05:33→21:50)
[2020-11-11] MEDS: LORazepam 1 MG TAB PO PRN (05:33)
[2020-11-11 06:06] LABS: Hematocrit (blood only) 38.8 % (37-47); Hemoglobin 13.1 g/dL (12.0-16.0); Mean Corpuscular Hemoglobin 32.8 pg (25-34); Mean Corpuscular Hgb Conc 33.8 g/dL (32-36); Mean Corpuscular Volume 97.2 fL (80-100); RDW Coefficient of Variation 13.4 % (11.5-14.5); RDW Standard Deviation 47.7 fL (36.4-46.3); Red Blood Count 3.99 M/uL (4.2-5.4); White Blood Count 3.68 K/uL (4.8-10.8)
[2020-11-11 06:15] LABS: Estimated Average Glucose 140 mg/dl; Hemoglobin A1C 6.5 % (4.5-5.6)
[2020-11-11 06:17] LABS: INR 1.5 (0.9-1.1); Prothrombin Time 14.5 Seconds (9.0-12.0)
[2020-11-11 06:33] LABS: Albumin Level 3.3 gm/dl (3.4-5.0); BUN Creatinine Ratio 16.8 (10-20); Calcium 9.4 mg/dl (8.5-10.1); Creatinine Clr Calc Pharmacy 120.2 ml/min; Est GFR (African American) 133.8 ml/min; Est GFR (Non-African American) 115.5 ml/min; Potassium 3.8 mmol/L (3.5-5.1)
[2020-11-11 06:36] LABS: Albumin Globulin Ratio 0.9 (0.9-2); Bilirubin,Total 1.8 mg/dl (0.2-1); Globulin 3.6 gm/dl (2.5-4.0); Phosphorus 2.9 mg/dl (2.5-4.9); Total Protein 6.9 gm/dl (6.4-8.2)
[2020-11-11 06:37] LABS: Mean Platelet Volume 9.5 fL (7.4-10.4); Platelet Count 87 K/uL (130-400)
[2020-11-11 07:00] LABS: Basophils # (auto) 0.02 K/uL (0-0.2); Basophils % (auto) 0.5 %; Eosinophils # (auto) 0.03 K/uL (0-0.5); Eosinophils % (auto) 0.8 %; Lymphocytes # (auto) 1.85 K/uL (1.2-3.4); Lymphocytes % (auto) 50.3 %; Monocytes # (auto) 0.35 K/uL (0.11-0.59); Monocytes % (auto) 9.5 %; Neutrophils # (auto) 1.43 K/uL (1.4-6.5); Neutrophils % (auto) 38.9 %; Platelet Estimate Decreased (Normal)
--- NOTE | 2020-11-11 07:52 | Ultrasound Report ---
US liver HISTORY: 44 years-old Female cirrhosis follow-up study in a patient with hepatic steatosis COMPARISON: CT abdomen and pelvis 05/26/2020, abdominal ultrasound 05/29/2020 TECHNIQUE: Multiple real-time sonographic images of the abdominal right upper quadrant were obtained assessing grayscale appearance and color flow FINDINGS: Pancreas is predominantly obscured by bowel gas. Hepatomegaly with echogenic heterogeneous parenchyma . No hepatic mass identified. Marginal nodularity of the liver. Hepatopedal flow within the portal ve in. Small volume of abdominal ascites. Unremarkable gallbladder without shadowing cholelithiasis. The gallbladder wall measures within the upper limits of normal at 3 mm. Normal common bile duct, 4 mm. The imaged right kidney is unremarkable without hydronephrosis. IMPRESSION: 1. Hepatomegaly with hepatic steatosis and mild marginal nodularity suggestive of cirrhosis. 2. Small volume of upper abdominal ascites. 3. Mild gallbladder wall thickening is likely secondary to chronic liver disease. No cholelithiasis. 4. No biliary ductal dilation. ACT 112: Negative or not required by law. The above report was generated using voice recognition software. It may contain grammatical, syntax o r spelling errors. Electronically signed by: Tony Carney M.D. 11/11/2020 7:51 AM
[2020-11-11] MEDS: FUROSEMIDE 20 MG TAB PO SCH (08:36)
[2020-11-11] MEDS: POTASSIUM CHLORIDE 10 MEQ TABCR PO SCH ×2 (08:37→20:40)
[2020-11-11] MEDS: VITAMIN B COMPLEX TAB PO SCH (08:37)
[2020-11-11] MEDS: MULTIVITAMIN TAB PO SCH (08:37)
[2020-11-11] MEDS: FOLIC ACID 1 MG in SYRINGE 9.8 ML IV SCH (08:37)
[2020-11-11] MEDS: PANTOprazole 40 MG TAB PO SCH (08:37)
[2020-11-11] MEDS: FLUTICASONE/VILANTEROL 100/25MCG 14 PUFFS/INHALER INH SCH (08:37)
[2020-11-11] MEDS: INSULIN ASPART 100 UNITS/ML 3 ML PEN SC SCH ×4 (08:39→20:41)
[2020-11-11] MEDS: LORazepam 1 MG/2 ML VIAL IV PRN ×2 (08:40→20:39)
[2020-11-11] MEDS ORDERED: NON-FORMULARY MEDICATION (Omeprazole 20 mg Capsule,Delayed Release(Dr/Ec)) PO SCH (09:00)
[2020-11-11] MEDS ORDERED: SPIRONOLACTONE 25 MG TAB PO SCH (09:00)
[2020-11-11 10:22] LABS: Thyroid Stimulating Hormone 7.47 uIu/ml (0.300-4.500)
[2020-11-11 10:34] LABS: T4 Free Thyroxine 1.31 ng/dl (0.8-1.6)
[2020-11-11] MEDS: INSULIN GLARGINE SOLOSTAR 100 UNITS/ML 3 ML PEN SC SCH (10:56)
--- NOTE | 2020-11-11 15:23 | Pharmacy Report ---
Pharmacy Glycemic Short Note 2 - Date of Service November 11, 2020 - Glycemic Short BSG Results (Last 24 hours): 11/10/20 11/10/20 11/11/20 16:08 21:03 02:06 Glucose 123 H POC Glucose 97 82 11/11/20 11/11/20 11/11/20 05: 07:08 11:02 Glucose 69 L POC Glucose 78 113 H OUTPATIENT ANTIDIABETIC REGIMEN: * Novolin 70/30: 15 units QAM, 10 units QPM * HbA1c = 6.5% on 11/11/20 ASSESSMENT: * 44 y/o F admitted for alcohol abuse and withdrawal. Patient has Type 1 diabetes managed at home on Novolin 70/30 and known to glycemic service from past admissions here. * On previous admissions, she was managed with basal NPH insulin for glycemic management and Novolog for bolus. But, she had also been on steroids during those times. * Fasting BSG today was 78 mg/dl. Spoke to RN, patient was not well oriented this AM. She did not feel well and threw up her breakfast. Therefore, I chose to add a small dose of Lantus insulin for basal needs rather than NPH. * Post-prandial BSGs within goal. Continued Novolog parameters. PLAN FOR INPATIENT GLYCEMIC CONTROL: * Hold outpatient oral diabetes medications * Basal insulin * Lantus 5 units QAM * Bolus insulin: continued * NovoLog per scale ACHS or Q6hrs while NPO * Goal Range: Low 120 mg/dL - High 160 mg/dL * Correction Factor: 35 mg/dL/unit * Nutritional / Prandial insulin per carb ratio of 1 unit per 11 grams CHO consumed PLAN FOR DISCHARGE: * HbA1c = 6.5% * A1c indicates patient is well controlled on current home insulin regimen. Recommend discharging on home insulin dose and regimen as long as patient is not reporting hypoglycemia.
[2020-11-11] MEDS: LACTATED RINGER'S 1,000 ML IV SCH (19:58)
[2020-11-11] MEDS: MIRTAZAPINE TAB 15 MG TAB PO SCH (20:40)
[2020-11-11] MEDS: ENOXAPARIN INJ 40 MG/0.4 ML SYR SQ SCH (20:40)
--- NOTE | 2020-11-11 23:15 | Hospitalist Progress Note ---
Date of Service November 11, 2020 Assessment & Plan (1) Alcohol withdrawal: Ongoing. Fortunately no evidence of DTs. Continue gabapentin protocol. Continue ativan prn per protocol. Continue telemetry. Stop IV fluids - she has evidence of mild decompensated cirrhosis (ascites, LE edema, etc). Continue thiamine 500mg IV TID. Continue folate 1mg IV daily. (2) Alcohol abuse: Patient presented to our ER with self-requested Detox However, most concerning is her post-discharge plan of care I cannot get a strong sense of commitment from her to maintain sobriety Without sobriety she will have ongoing decline from her cirrhosis She will not pursue inpatient etoh rehab Declined AA Will need social work assistance with this Offered support to her, acknowledging/validating that maintaining sobriety from long-standing alcoholism is very, very hard and that we are all here to help her (3) Cirrhosis: Discriminatory function- 20 at admission. Did have acute alcoholic hepatitis earlier this year requiring prolonged course of PO prednisolone INR today 1.5 LFTs abnormal but acceptable Mild ascites on ultrasound and exam along with peripheral edema Continue lasix Titrate aldactone to 50mg/day see above in "alcohol abuse" (4) Diabetes mellitus type 1: Diagnosed as type 1 per chart review Pharmacy glycemic consult appreciated HbA1c 6.5% (5) Asthma: Continue albuterol prn Continue Advair 2 puffs daily or similar inhaler on formulary (6) Anxiety: At her request will restart remeron 7.5mg HS ativan for etoh withdrawal will help anxiety (7) GERD (gastroesophageal reflux disease): PPI + famotidine (8) Coagulopathy: 2nd cirrhosis baseline INR about 1.5 (9) Abnormal TSH: TSH x 2 both elevated although FT4 is normal, consider low-dose synthroid as this may help volume status and moods (10) Leukopenia: 2nd cirrhosis cbc am for stability recent b12/folate wnl (11) Thrombocytopenia: 2nd cirrhosis, hypersplenism, etc trend platelets b12/folate - most recent check - wnl (12) DVT prophylaxis: lovenox but low threshold to stop it if INR rises or platelets fall Admission and Anticipated Discharge Date Admission Date: November 10, 2020 Subjective tele - NSR or sinus tach, mainly latter during visit patient was awake, alert and oriented we had a very lengthy discussion re: her alcoholism I told her about [facility] and she declined/was not interested she mentioned at one point that she would like to link with a counselor that she can "call at any time" when she has lapses with her sobriety. I mentioned a sponsor through [employer] who could essentially do that for her but she did not seem interested in AA. I counseled her that her cirrhosis is advanced as evidenced by ascites, her blood work abnormalities and synthetic function issue (INR 1.5), h/o paracentesis a few months ago, etc. Further, I counseled her that ongoing etoh use will hasten further decline, dec ompensated cirrhosis, and . she stated she maintained sobriety for 5-6 weeks when she was staying with her mom/dad in the [facility] (she is originally from there). she stayed with her parents after a long hospital stay at [facility] earlier this year. after this hospital stay she said she will either return with her parents or stay locally with her 17yo daughter. she is . patient would not commit to any specific post-discharge treatment plan. Review of Systems Constitutional: + anorexia; no fever and no chills Respiratory: no cough and no dyspnea Cardiovascular: no chest pain Gastrointestinal: + bloating (Ascites; asks if diuretics can be increased?) and + vomiting (After breakfast this am ); no abdominal pain Psychiatric: + depression patient asked if her remeron could be restarted; she does not know her dose; she was on it up until 1-2 weeks ago; started while at [facility]? Physical Exam Constitutional: no acute distress and no altered mental status Eyes: + nystagmus ENMT: external ear and nose normal, oropharynx normal Respiratory: normal respiratory effort, lungs clear to auscultation Cardiovascular: Rate/Rhythm: regular rhythm and + tachycardic Heart Sounds: normal S1 and normal S2; no murmur Vessels: posterior tibial pulses present and dorsalis pedis pulses present; no JVD Extremities: + edema (<1+ b/l ) Gastrointestinal (Abdomen): Inspection/Auscultation: + abdomen distended (With ascites ) and normal bowel sounds Percussion/Palpation: + splenomegaly; abdomen nontender and no guarding Skin: no rashes, warm and dry Neurologic: Motor/Sensory: + tremor Psychiatric: Orientation: alert and oriented x 3 Results & Data Results & Data ([facility]) Vital Signs (Past 12 Hours) Vital Signs Temp Pulse Pulse Resp BP BP Pulse Ox 11/11/20 23:12 105 H 11/11/20 20:11 37.5 C 105 H 18 110/70 92 11/11/20 15:31 37.1 C 103 H 17 108/71 94 Laboratory Results Laboratory Results - last 24 hr 11/11/20 11/11/20 11/11/20 02:06 05:21 05:21 WBC 3.68 L RBC 3.99 L Hgb 13.1 Hct 38.8 MCV 97.2 MCH 32.8 MCHC 33.8 RDW Std Deviation 47.7 H RDW Coeff of Suzanne 13.4 Plt Count 87 L MPV 9.5 Immature Gran % (Auto) 0.0 Neut % (Auto) 38.9 Lymph % (Auto) 50.3 [place] % (Auto) 9.5 Eos % (Auto) 0.8 Baso % (Auto) 0.5 Neut # (Auto) 1.43 Lymph # (Auto) 1.85 [place] # (Auto) 0.35 Eos # (Auto) 0.03 Baso # (Auto) 0.02 Immature Gran # (Auto) 0.00 Platelet Estimate Decreased L PT 14.5 H INR 1.5 H Sodium Potassium Chloride Carbon Dioxide Anion Gap BUN Creatinine Est Cr Clr Drug Dosing Est GFR ( Amer) Est GFR (Non-Af Amer) BUN/Creatinine Ratio Glucose POC Glucose 82 Estimat Average Glucose Hemoglobin A1c Calcium Ionized Calcium Phosphorus Magnesium Total Bilirubin AST ALT Alkaline Phosphatase Total Protein Albumin Globulin Albumin/Globulin Ratio TSH Free T4 11/11/20 11/11/20 11/11/20 05:21 05:21 05:21 WBC RBC Hgb Hct MCV MCH MCHC RDW Std Deviation RDW Coeff of Suzanne Plt Count MPV Immature Gran % (Auto) Neut % (Auto) Lymph % (Auto) [place] % (Auto) Eos % (Auto) Baso % (Auto) Neut # (Auto) Lymph # (Auto) [place] # (Auto) Eos # (Auto) Baso # (Auto) Immature Gran # (Auto) Platelet Estimate PT INR Sodium 141 Potassium 3.8 Chloride 107 Carbon Dioxide 22 Anion Gap 12.0 H BUN 9 Creatinine 0.53 L Est Cr Clr Drug Dosing 120.2 Est GFR ( Amer) 133.8 Est GFR (Non-Af Amer) 115.5 BUN/Creatinine Ratio 16.8 Glucose 69 L POC Glucose Estimat Average Glucose 140 Hemoglobin A1c 6.5 H Calcium 9.4 Ionized Calcium 1.26 Phosphorus 2.9 Magnesium 2.0 Total Bilirubin 1.8 H AST 281 H ALT 65 Alkaline Phosphatase 171 H Total Protein 6.9 Albumin 3.3 L Globulin 3.6 Albumin/Globulin Ratio 0.9 TSH Free T4 11/11/20 11/11/20 11/11/20 05:21 07:08 11:02 WBC RBC Hgb Hct MCV MCH MCHC RDW Std Deviation RDW Coeff of Suzanne Plt Count MPV Immature Gran % (Auto) Neut % (Auto) Lymph % (Auto) [place] % (Auto) Eos % (Auto) Baso % (Auto) Neut # (Auto) Lymph # (Auto) [place] # (Auto) Eos # (Auto) Baso # (Auto) Immature Gran # (Auto) Platelet Estimate PT INR Sodium Potassium Chloride Carbon Dioxide Anion Gap BUN Creatinine Est Cr Clr Drug Dosing Est GFR ( Amer) Est GFR (Non-Af Amer) BUN/Creatinine Ratio Glucose POC Glucose 78 113 H Estimat Average Glucose Hemoglobin A1c Calcium Ionized Calcium Phosphorus Magnesium Total Bilirubin AST ALT Alkaline Phosphatase Total Protein Albumin Globulin Albumin/Globulin Ratio TSH 7.470 H Free T4 1.31 11/11/20 11/11/20 16:27 20:29 WBC RBC Hgb Hct MCV MCH MCHC RDW Std Deviation RDW Coeff of Suzanne Plt Count MPV Immature Gran % (Auto) Neut % (Auto) Lymph % (Auto) [place] % (Auto) Eos % (Auto) Baso % (Auto) Neut # (Auto) Lymph # (Auto) [place] # (Auto) Eos # (Auto) Baso # (Auto) Immature Gran # (Auto) Platelet Estimate PT INR Sodium Potassium Chloride Carbon Dioxide Anion Gap BUN Creatinine Est Cr Clr Drug Dosing Est GFR ( Amer) Est GFR (Non-Af Amer) BUN/Creatinine Ratio Glucose POC Glucose 70 126 H Estimat Average Glucose Hemoglobin A1c Calcium Ionized Calcium Phosphorus Magnesium Total Bilirubin AST ALT Alkaline Phosphatase Total Protein Albumin Globulin Albumin/Globulin Ratio TSH Free T4 PG Care Time/CCT Total # of Minutes Spent Total Time Spent with Patient: Total time spent is greater than 50% in coordination of care (as documented) at patient's floor/unit and/or counseling patient: Coding Level of Care Code 86392 Subseq Hosp Care Lv 3 Diagnoses Alcohol withdrawal F10.230 Complication of substance-induced condition: uncomplicated Alcohol abuse F10.10 Cirrhosis K70.30 Ascites presence: unspecified Hepatic cirrhosis type: alcoholic cirrhosis Diabetes mellitus type 1 E10.9 Diabetes mellitus complication status: without complication Asthma J45.909 Asthma complication type: unspecified Asthma persistence: unspecified Asthma severity: unspecified severity Anxiety F41.9 GERD (gastroesophageal reflux disease) K21.9 Esophagitis presence: without esophagitis Coagulopathy D68.9 Abnormal TSH R79.89 Leukopenia D72.819 Thrombocytopenia D69.6 DVT prophylaxis Z29.9 (1) Diabetes mellitus type 1 Diabetes mellitus complication status: without complication Qualified Code(s): E10.9 - Type 1 diabetes mellitus without complications (2) Alcohol withdrawal Complication of substance-induced condition: uncomplicated Qualified Code(s): F10.230 - Alcohol dependence with withdrawal, uncomplicated (3) Cirrhosis Ascites presence: unspecified Hepatic cirrhosis type: alcoholic cirrhosis Qualified Code(s): K70.30 - Alcoholic cirrhosis of liver without ascites (4) GERD (gastroesophageal reflux disease) Esophagitis presence: without esophagitis Qualified Code(s): K21.9 - Gastro- esophageal reflux disease without esophagitis (5) Asthma Asthma complication type: unspecified Asthma persistence: unspecified Asthma severity: unspecified severity Qualified Code(s): J45.909 - Unspecified asthma, uncomplicated
[2020-11-12 06:08] LABS: Hematocrit (blood only) 37.6 % (37-47); Hemoglobin 12.9 g/dL (12.0-16.0); Mean Corpuscular Hemoglobin 32.3 pg (25-34); Mean Corpuscular Hgb Conc 34.3 g/dL (32-36); Mean Corpuscular Volume 94.2 fL (80-100); RDW Coefficient of Variation 13.3 % (11.5-14.5); RDW Standard Deviation 46.5 fL (36.4-46.3); Red Blood Count 3.99 M/uL (4.2-5.4); White Blood Count 2.51 K/uL (4.8-10.8)
--- NOTE | 2020-11-12 06:10 | Electrocardiogram Report ---
Test Reason : Blood Pressure : / mmHG Vent. Rate : 098 BPM Atrial Rate : 098 BPM P-R Int : 142 ms QRS Dur : 080 ms QT Int : 364 ms P-R-T Axes : 034 018 016 degrees QTc Int : 464 ms Normal sinus rhythm Normal ECG When compared with ECG of 10-NOV-2020 15:45, No significant change was found Confirmed by Kevin Lambert ([id number]) on 11/12/2020 6:09:57 AM Referred By: REFERRED SELF Confirmed By:Kevin Lambert
[2020-11-12 06:18] LABS: INR 1.5 (0.9-1.1); Prothrombin Time 14.6 Seconds (9.0-12.0)
[2020-11-12 06:24] LABS: Mean Platelet Volume 9.7 fL (7.4-10.4); Platelet Count 62 K/uL (130-400)
[2020-11-12 06:32] LABS: Basophils # (auto) 0.01 K/uL (0-0.2); Basophils % (auto) 0.4 %; Eosinophils # (auto) 0.03 K/uL (0-0.5); Eosinophils % (auto) 1.2 %; Lymphocytes # (auto) 1.02 K/uL (1.2-3.4); Lymphocytes % (auto) 40.6 %; Monocytes # (auto) 0.35 K/uL (0.11-0.59); Monocytes % (auto) 13.9 %; Neutrophils % (auto) 43.9 %; RBC Morphology Unremarkable
[2020-11-12] MEDS: THIAMINE HCL 500 MG in 0.9 % SODIUM CHLORIDE 100 ML IV SCH ×3 (06:37→23:03)
[2020-11-12 06:39] LABS: Albumin Level 3.3 gm/dl (3.4-5.0); BUN Creatinine Ratio 9.6 (10-20); Calcium 10.5 mg/dl (8.5-10.1); Creatinine Clr Calc Pharmacy 97.9 ml/min; Est GFR (African American) 124.5 ml/min; Est GFR (Non-African American) 107.4 ml/min; Potassium 3.5 mmol/L (3.5-5.1)
[2020-11-12 06:46] LABS: Albumin Globulin Ratio 0.9 (0.9-2); Bilirubin,Total 2.3 mg/dl (0.2-1); Globulin 3.8 gm/dl (2.5-4.0); Total Protein 7.1 gm/dl (6.4-8.2)
[2020-11-12] MEDS: INSULIN ASPART 100 UNITS/ML 3 ML PEN SC SCH ×4 (08:09→20:09)
[2020-11-12] MEDS: FOLIC ACID 1 MG in SYRINGE 9.8 ML IV SCH (08:15)
[2020-11-12] MEDS: GABAPENTIN 400 MG CAP PO SCH ×2 (08:15→18:24)
[2020-11-12] MEDS: FUROSEMIDE 20 MG TAB PO SCH (08:16)
[2020-11-12] MEDS: INSULIN GLARGINE SOLOSTAR 100 UNITS/ML 3 ML PEN SC SCH (08:16)
[2020-11-12] MEDS: MULTIVITAMIN TAB PO SCH (08:16)
[2020-11-12] MEDS: POTASSIUM CHLORIDE 10 MEQ TABCR PO SCH ×2 (08:17→20:07)
[2020-11-12] MEDS: PANTOprazole 40 MG TAB PO SCH (08:17)
[2020-11-12] MEDS: FLUTICASONE/VILANTEROL 100/25MCG 14 PUFFS/INHALER INH SCH (08:18)
[2020-11-12] MEDS: SPIRONOLACTONE 25 MG TAB PO SCH (08:18)
[2020-11-12] MEDS: VITAMIN B COMPLEX TAB PO SCH (08:18)
--- NOTE | 2020-11-12 18:27 | Hospitalist Progress Note ---
Date of Service November 12, 2020 Assessment & Plan (1) Alcohol withdrawal: Ongoing. Fortunately no evidence of DTs except some tachycardia. She is unsteady on her feet and using a walker-we will order PT/OT consults Continue gabapentin protocol. Continue ativan prn per protocol. Continue telemetry. Have since discontinued IV fluids - she has evidence of mild decompensated cirrhosis (ascites, LE edema, etc). Continue thiamine 500mg IV TID. Continue folate 1mg IV daily. (2) Alcohol abuse: Patient presented to our ER with self-requested Detox However, most concerning is her post-discharge plan of care I cannot get a strong sense of commitment from her to maintain sobriety Without sobriety she will have ongoing decline from her cirrhosis She will not pursue inpatient etoh rehab Declined AA Will need social work assistance with this Offered support to her, acknowledging/validating that maintaining sobriety from long-standing alcoholism is very, very hard and that we are all here to help her (3) Cirrhosis: Discriminatory function- 20 at admission. Did have acute alcoholic hepatitis earlier this year requiring prolonged course of PO prednisolone INR today is again 1.5 LFTs abnormal but acceptable Mild ascites on ultrasound and exam along with peripheral edema Continue lasix Titrate aldactone to 50mg/day see above in "alcohol abuse" will need outpatient GI follow-up (4) Diabetes mellitus type 1: Patient reports that she was diagnosed with type I diabetes within the last year-review of the chart shows she presented with DKA during admission for alcohol intoxication in 02/2020 despite her hemoglobin A1c only being 5.8% Pharmacy glycemic consult appreciated HbA1c 6.5% now Continue Lantus and NovoLog Typically at home she is on 70/30 (5) Asthma: No acute issues Continue albuterol prn Continue Advair 2 puffs daily or similar inhaler on formulary (6) Anxiety: At her request will restart remeron 7.5mg HS which she was recently started on a little over a month ago by her PCP ativan for etoh withdrawal will help anxiety Consult psychiatry as requested by the patient's mother for worsening mood at home (7) GERD (gastroesophageal reflux disease): PPI + famotidine (8) Coagulopathy: 2nd cirrhosis baseline INR about 1.5 (9) Abnormal TSH: TSH x 2 both elevated although free T4 is normal although FT4 is normal, consider low-dose synthroid as this may help volume status and moods (10) Leukopenia: 2nd cirrhosis Continues but stable recent b12/folate wnl (11) Thrombocytopenia: 2nd cirrhosis, hypersplenism, etc trend platelets-decreased down to 62 b12/folate - most recent check - wnl (12) DVT prophylaxis: lovenox but low threshold to stop it if INR rises or platelets fall below 50 K Disposition-continued stay in PCU PT/OT consults placed Admission and Anticipated Discharge Date Admission Date: November 10, 2020 Subjective Patient reports she feels okay. She is eating and drinking, no abdominal pain, no nausea or vomiting. She is off balance and having to use a walker to get around the room. Denies chest pain or shortness of breath. She denies a h/o seizures. Denies hallucinations, tremors Telemetry with sinus tachycardia with rates in the 90s to 130s during the day and 50s to 60s overnight Review of Systems Review of Systems: All systems reviewed & are unremarkable except as noted in HPI & below Physical Exam Constitutional: WD/WN, vitals as above Eyes: + anicteric sclerae Neck: trachea midline, no thyromegaly Respiratory: normal respiratory effort, lungs clear to auscultation Cardiovascular: Rate/Rhythm: regular rhythm and + tachycardic Heart Sounds: no murmur Extremities: no edema Chest (Breasts): Chest: normal inspection of chest Gastrointestinal (Abdomen): normal bowel sounds, soft, nontender, no hepatosplenomegaly Musculoskeletal: Extremities: extremities normal to inspection; no cyanosis and no clubbing Skin: no rashes, warm and dry Neurologic: moves all extremities and awake; no focal motor deficits Psychiatric: Orientation: alert and oriented x 3 Speech: normal rat e/rhythm/volume of speech Lymphatic: no lymphedema Results & Data Results & Data ([facility]) Vital Signs (Past 12 Hours) Vital Signs Temp Pulse Pulse Resp BP Pulse Ox 11/12/20 16:21 102 H 11/12/20 15:08 37.0 C 111 H 17 112/73 95 11/12/20 11:10 36.9 C 99 H 18 104/70 95 11/12/20 08:00 93 H 11/12/20 07:11 37.0 C 97 H 18 114/74 94 Laboratory Results 05/23/21 05/23/21 05/23/21 Range/Units 16:59 11:09 07:10 WBC (4.8-10.8) K/uL RBC (4.2-5.4) M/uL Hgb (12.0-16.0) g/dL Hct (37-47) % MCV (80-100) fL MCH (25-34) pg MCHC (32-36) g/dL RDW Std Deviation (36.4-46.3) fL RDW Coeff of Suzanne (11.5-14.5) % Plt Count (130-400) K/uL MPV (7.4-10.4) fL Immature Gran % (Auto) % Neut % (Auto) % Lymph % (Auto) % [place] % (Auto) % Eos % (Auto) % Baso % (Auto) % Neut # (Auto) (1.4-6.5) K/uL Lymph # (Auto) (1.2-3.4) K/uL [place] # (Auto) (0.11-0.59) K/uL Eos # (Auto) (0-0.5) K/uL Baso # (Auto) (0-0.2) K/uL Immature Gran # (Auto) (0.00-0.02) K/uL RBC Morphology PT (9.0-12.0) Seconds INR (0.9-1.1) Sodium (136-145) mmol/L Potassium (3.5-5.1) mmol/L Chloride (98-107) mmol/L Carbon Dioxide (21-32) mmol/L Anion Gap (3-11) BUN (7-18) mg/dl Creatinine (0.6-1.2) mg/dl Est Cr Clr Drug Dosing ml/min Est GFR ( Amer) ml/min Est GFR (Non-Af Amer) ml/min BUN/Creatinine Ratio (10-20) Glucose (70-99) mg/dl POC Glucose 145 H 129 H 115 H (70-99) mg/dl Calcium (8.5-10.1) mg/dl Total Bilirubin (0.2-1) mg/dl AST (15-37) U/L ALT (12-78) U/L Alkaline Phosphatase (45-117) U/L Total Protein (6.4-8.2) gm/dl Albumin (3.4-5.0) gm/dl Globulin (2.5-4.0) gm/dl Albumin/Globulin Ratio (0.9-2) 11/12/20 11/12/20 11/12/20 Range/Units 05:46 05:46 05:46 WBC 2.51 L (4.8-10.8) K/uL RBC 3.99 L (4.2-5.4) M/uL Hgb 12.9 (12.0-16.0) g/dL Hct 37.6 (37-47) % MCV 94.2 (80-100) fL MCH 32.3 (25-34) pg MCHC 34.3 (32-36) g/dL RDW Std Deviation 46.5 H (36.4-46.3) fL RDW Coeff of Suzanne 13.3 (11.5-14.5) % Plt Count 62 L (130-400) K/uL MPV 9.7 (7.4-10.4) fL Immature Gran % (Auto) 0.0 % Neut % (Auto) 43.9 % Lymph % (Auto) 40.6 % [place] % (Auto) 13.9 % Eos % (Auto) 1.2 % Baso % (Auto) 0.4 % Neut # (Auto) 1.10 L (1.4-6.5) K/uL Lymph # (Auto) 1.02 L (1.2-3.4) K/uL [place] # (Auto) 0.35 (0.11-0.59) K/uL Eos # (Auto) 0.03 (0-0.5) K/uL Baso # (Auto) 0.01 (0-0.2) K/uL Immature Gran # (Auto) 0.00 (0.00-0.02) K/uL RBC Morphology Unremarkable PT 14.6 H (9.0-12.0) Seconds INR 1.5 H (0.9-1.1) Sodium 136 (136-145) mmol/L Potassium 3.5 (3.5-5.1) mmol/L Chloride 104 (98-107) mmol/L Carbon Dioxide 25 (21-32) mmol/L Anion Gap 7.0 (3-11) BUN 6 L (7-18) mg/dl Creatinine 0.66 (0.6-1.2) mg/dl Est Cr Clr Drug Dosing 97.9 ml/min Est GFR ( Amer) 124.5 ml/min Est GFR (Non-Af Amer) 107.4 ml/min BUN/Creatinine Ratio 9.6 L (10-20) Glucose 117 H (70-99) mg/dl POC Glucose (70-99) mg/dl Calcium 10.5 H (8.5-10.1) mg/dl Total Bilirubin 2.3 H (0.2-1) mg/dl AST 247 H (15-37) U/L ALT 63 (12-78) U/L Alkaline Phosphatase 178 H (45-117) U/L Total Protein 7.1 (6.4-8.2) gm/dl Albumin 3.3 L (3.4-5.0) gm/dl Globulin 3.8 (2.5-4.0) gm/dl Albumin/Globulin Ratio 0.9 (0.9-2) 05/22/21 Range/Units 20:29 WBC (4.8-10.8) K/uL RBC (4.2-5.4) M/uL Hgb (12.0-16.0) g/dL Hct (37-47) % MCV (80-100) fL MCH (25-34) pg MCHC (32-36) g/dL RDW Std Deviation (36.4-46.3) fL RDW Coeff of Suzanne (11.5-14.5) % Plt Count (130-400) K/uL MPV (7.4-10.4) fL Immature Gran % (Auto) % Neut % (Auto) % Lymph % (Auto) % [place] % (Auto) % Eos % (Auto) % Baso % (Auto) % Neut # (Auto) (1.4-6.5) K/uL Lymph # (Auto) (1.2-3.4) K/uL [place] # (Auto) (0.11-0.59) K/uL Eos # (Auto) (0-0.5) K/uL Baso # (Auto) (0-0.2) K/uL Immature Gran # (Auto) (0.00-0.02) K/uL RBC Morphology PT (9.0-12.0) Seconds INR (0.9-1.1) Sodium (136-145) mmol/L Potassium (3.5-5.1) mmol/L Chloride (98-107) mmol/L Carbon Dioxide (21-32) mmol/L Anion Gap (3-11) BUN (7-18) mg/dl Creatinine (0.6-1.2) mg/dl Est Cr Clr Drug Dosing ml/min Est GFR ( Amer) ml/min Est GFR (Non-Af Amer) ml/min BUN/Creatinine Ratio (10-20) Glucose (70-99) mg/dl POC Glucose 126 H (70-99) mg/dl Calcium (8.5-10.1) mg/dl Total Bilirubin (0.2-1) mg/dl AST (15-37) U/L ALT (12-78) U/L Alkaline Phosphatase (45-117) U/L Total Protein (6.4-8.2) gm/dl Albumin (3.4-5.0) gm/dl Globulin (2.5-4.0) gm/dl Albumin/Globulin Ratio (0.9-2) PG Care Time/CCT Total # of Minutes Spent Total Time Spent with Patient: Total time spent is greater than 50% in coordination of care (as documented) at patient's floor/unit and/or counseling patient: Coding Level of Care Code 69527 Subseq Hosp Care Lvl 3 Diagnoses Alcohol withdrawal F10.230 Complication of substance-induced condition: uncomplicated Alcohol abuse F10.10 Cirrhosis K70.30 Ascites presence: unspecified Hepatic cirrhosis type: alcoholic cirrhosis Diabetes mellitus type 1 E10.9 Diabetes mellitus complication status: without complication Asthma J45.909 Asthma complication type: unspecified Asthma persistence: unspecified Asthma severity: unspecified severity Anxiety F41.9 GERD (gastroesophageal reflux disease) K21.9 Esophagitis presence: without esophagitis Coagulopathy D68.9 Abnormal TSH R79.89 Leukopenia D72.819 Thrombocytopenia D69.6 DVT prophylaxis Z29.9 (1) Diabetes mellitus type 1 Diabetes mellitus complication status: without complication Qualified Code(s): E10.9 - Type 1 diabetes mellitus without complications (2) Alcohol withdrawal Complication of substance-induced condition: uncomplicated Qualified Code(s): F10.230 - Alcohol dependence with withdrawal, uncomplicated (3) Cirrhosis Ascites presence: unspecified Hepatic cirrhosis type: alcoholic cirrhosis Qualified Code(s): K70.30 - Alcoholic cirrhosis of liver without ascites (4) GERD (gastroesophageal reflux disease) Esophagitis presence: without esophagitis Qualified Code(s): K21.9 - Gastro- esophageal reflux disease without esophagitis (5) Asthma Asthma complication type: unspecified Asthma persistence: unspecified Asthma severity: unspecified severity Qualified Code(s): J45.909 - Unspecified asthma, uncomplicated
[2020-11-12] MEDS: LORazepam 1 MG TAB PO PRN (20:06)
[2020-11-12] MEDS: MIRTAZAPINE TAB 15 MG TAB PO SCH (20:07)
[2020-11-12] MEDS: ENOXAPARIN INJ 40 MG/0.4 ML SYR SQ SCH (20:07)
[2020-11-12] MEDS ORDERED: INSULIN GLARGINE SOLOSTAR 100 UNITS/ML 3 ML PEN SC SCH (21:00)
--- NOTE | 2020-11-12 23:26 | Electrocardiogram Report ---
Test Reason : Blood Pressure : / mmHG Vent. Rate : 088 BPM Atrial Rate : 088 BPM P-R Int : 140 ms QRS Dur : 080 ms QT Int : 364 ms P-R-T Axes : 026 025 007 degrees QTc Int : 440 ms Normal sinus rhythm Normal ECG When compared with ECG of 11-NOV-2020 05:43, No significant change was found Confirmed by Kevin Lambert ([id number]) on 11/12/2020 11:26:20 PM Referred By: REFERRED SELF Confirmed By:Kevin Lambert
[2020-11-13] MEDS: GABAPENTIN 400 MG CAP PO SCH (06:38)
[2020-11-13] MEDS: THIAMINE HCL 500 MG in 0.9 % SODIUM CHLORIDE 100 ML IV SCH (06:38)
[2020-11-13 06:59] LABS: Hematocrit (blood only) 37.3 % (37-47); Hemoglobin 12.6 g/dL (12.0-16.0); Mean Corpuscular Hemoglobin 32.6 pg (25-34); Mean Corpuscular Hgb Conc 33.8 g/dL (32-36); Mean Corpuscular Volume 96.4 fL (80-100); RDW Coefficient of Variation 13.6 % (11.5-14.5); RDW Standard Deviation 47.9 fL (36.4-46.3); Red Blood Count 3.87 M/uL (4.2-5.4); White Blood Count 2.15 K/uL (4.8-10.8)
[2020-11-13 07:12] LABS: INR 1.6 (0.9-1.1); Prothrombin Time 15.4 Seconds (9.0-12.0)
[2020-11-13 07:25] LABS: Eosinophils # (auto) 0.07 K/uL (0-0.5); Eosinophils % (auto) 3.3 %; Lymphocytes # (auto) 0.76 K/uL (1.2-3.4); Lymphocytes % (auto) 35.3 %; Mean Platelet Volume 10.8 fL (7.4-10.4); Monocytes # (auto) 0.26 K/uL (0.11-0.59); Monocytes % (auto) 12.1 %; Neutrophils # (auto) 1.06 K/uL (1.4-6.5); Neutrophils % (auto) 49.3 %; Platelet Count 63 K/uL (130-400)
[2020-11-13 07:29] LABS: Albumin Level 3.1 gm/dl (3.4-5.0); BUN Creatinine Ratio 8.3 (10-20); Calcium 10.1 mg/dl (8.5-10.1); Creatinine Clr Calc Pharmacy 99.1 ml/min; Est GFR (African American) 125.1 ml/min; Potassium 3.3 mmol/L (3.5-5.1)
[2020-11-13 07:32] LABS: Albumin Globulin Ratio 0.8 (0.9-2); Bilirubin,Total 1.8 mg/dl (0.2-1); Globulin 3.9 gm/dl (2.5-4.0)
[2020-11-13] MEDS: FOLIC ACID 1 MG in SYRINGE 9.8 ML IV SCH (07:57)
[2020-11-13] MEDS: FUROSEMIDE 20 MG TAB PO SCH (07:57)
[2020-11-13] MEDS: VITAMIN B COMPLEX TAB PO SCH (07:58)
[2020-11-13] MEDS: MULTIVITAMIN TAB PO SCH (07:58)
[2020-11-13] MEDS: SPIRONOLACTONE 25 MG TAB PO SCH (07:58)
[2020-11-13] MEDS: POTASSIUM CHLORIDE 10 MEQ TABCR PO SCH (07:58)
[2020-11-13] MEDS: PANTOprazole 40 MG TAB PO SCH (07:58)
[2020-11-13] MEDS: FLUTICASONE/VILANTEROL 100/25MCG 14 PUFFS/INHALER INH SCH (07:58)
[2020-11-13] MEDS: INSULIN GLARGINE SOLOSTAR 100 UNITS/ML 3 ML PEN SC SCH (07:59)
[2020-11-13] MEDS: INSULIN ASPART 100 UNITS/ML 3 ML PEN SC SCH ×2 (07:59→12:11)
--- NOTE | 2020-11-13 12:39 | Discharge Summary ---
Date of Service November 13, 2020 Admission HPI Per Admitting Provider 44 YOF with past medical history of asthma, MDD, anxiety, DM on insulin, DKA and pancreatitis, alcoholic cirrhosis, alcohol abuse. Patient self refers today to start detoxification from alcohol abuse. Patient reports she has tried to do this 5 times in the past and has continued to relapse. She has tried AA, online programs, and self reading programs, as well as leaving to go to her parents in August, where she went into [facility] and was transferred to [facility] for treatment. She was recently seen here at [facility] in May, where she was jaundiced with elevated MELD and discriminatory function scores requiring steroid therapy. She reports that she has never seized. She has been drinks wine and/or Vodka to the point of intoxication every day, and this is reported as for the past 2 years. Her presentation today compared to other admissions appears to be much more stable. Her MELD is 13, with discriminatory function score of 20.3, she is not altered, jaundiced or icteric. Her last drink was about 5 hours prior admission. She will be admitted to PCU for detox. She has done well in the past with gabapentin and Lorazepam protocols. Will continue those as well as start on Wernicke dose thiamine. Patient recently changed PCP to [facility]. Of note, she did ask upon admission if she could go home tomorrow for her daughter's prom to help her get dressed. I did tell her that with her sedating medications and adminission to the hospital for medical care she would not be advised or be able to go on a day-pass. If she anthony leave it would be against medical advice. She verbalized understanding of this. Admission Exam Per Admitting Provider General: awake, alert, no apparent distress, she feels sleepy but is appropriate Head: Normocephalic, atraumatic ENT: PERRLA, EOMI, no icterus, no nystagmus, no pharyngeal exudate, mucous membranes moist Neuro: AAO x 3, speech clear and appropriate, strength intact bilaterally 5/5, sensation intact and equal all extremities and dermatomes, no pronator drift, shakiness with hands extended out, no headache, no hallucinations. Chest: equal rise and fall of the chest, no accessory muscle use, no heaves or thrills, Clear to auscultation, on room air, Cardiac: Regular rate and rhythm, telemetry reviewed- tachycardia, skin warm dry, cap refill <3 seconds, peripheral pulses +2 no JVD, no murmur, no edema\ GI: NABS x 4 quadrants, soft but protuberent, liver enlarged past the ribs, nontender to palpation, no rebound, guarding or tenderness : Spontaneously voiding, no pain, no CVA tenderness, Extremities: Normal inspection, no peripheral edema or erythema, calfs nontender to palpation Psych: Normal mood and affect Skin: no rash or erythema Principal Diagnosis Alcohol withdrawal Acute alcoholic hepatitis, suspected underlying cirrhosis Discharge Exam Constitutional WD/WN, vitals as above Eyes + anicteric sclerae and EOM intact bilaterally; no nystagmus ENMT external ear and nose normal, oropharynx normal Neck trachea midline, no thyromegaly Respiratory normal respiratory effort, lungs clear to auscultation Cardiovascular Rate/Rhythm: regular rhythm and + tachycardic Heart Sounds: normal S1 and normal S2; no murmur Extremities: no edema Gastrointestinal (Abdomen) Inspection/Auscultation: normal bowel sounds Percussion/Palpation: abdomen soft; abdomen nontender, no guarding and abdomen not rigid Musculoskeletal no cyanosis or clubbing, extremities motor strength 5/5 Extremities: extremities normal to inspection; no cyanosis and no clubbing Skin no rashes, warm and dry Neurologic moves all extremities and awake; no focal motor deficits and not confused Motor/Sensory: no tremor Psychiatric Orientation: alert and oriented x 3 Lymphatic no lymphedema Discharge Data Allergies Allergy/AdvReac Type Severity Reaction Status Date / Time theophylline AdvReac Unknown VERTIGO Verified 11/10/20 18:40 Consultations 11/10/20 17:43 ED Decision to Admit Stat Ordered Studies 11/11/20 00:00 US liver Routine IMPRESSION: 1. Hepatomegaly with hepatic steatosis and mild marginal nodularity suggestive of cirrhosis. 2. Small volume of upper abdominal ascites. 3. Mild gallbladder wall thickening is likely secondary to chronic liver disease. No cholelithiasis. 4. No biliary ductal dilation. Hospital Course (1) Alcohol withdrawal: Marcus Avelar is a 45 year old female were admitted to [facility] from November 10-2020 due to mild alcohol withdrawal. This was treated with gabapentin and lorazepam as needed. No delirium tremens. LFTs downtrending on discharge. She declined inpatient alcohol rehabilitation and wishes to follow up with a psychologist as an outpatient. Recommend she follows up with gastroenterology for her ongoing alcoholic liver disease. No changes to her insulin regimen were made on discharge. (2) Alcohol abuse: (3) Cirrhosis: (4) Diabetes mellitus type 1: (5) Asthma: (6) Anxiety: (7) GERD (gastroesophageal reflux disease): (8) Coagulopathy: (9) Abnormal TSH: (10) Leukopenia: (11) Thrombocytopenia: Total Time Total Time Spent Total Time Spent (In Minutes): 35 Total Time Includes: Examination of the Patient, Discharge Planning and Medication Reconciliation Discharge Plan Discharge Items Patient Disposition: Home - Self-Care Reason For Visit: DETOX Discharge Diagnosis: Alcohol withdrawal Acute alcoholic hepatitis, suspected underlying cirrhosis Activity: Resume your previous activity Non-emergency contact: Primary Care Provider Call non-emergency contact if: you have any medication questions and your symptoms worsen Follow-up/Referrals: PCP,NO [Primary Care Provider] - Diet: Regular Addtl Attending Provider Instructions: You were admitted to [facility] from November 10-2020 due to alcohol withdrawal. This was treated with gabapentin and lorazepam as needed. Your liver function tests are now downtrending and having mild alcohol withdrawal symptoms and appear medically stable for discharge at this time. Please follow up with gastroenterology for your ongoing alcoholic liver disease. Due to your alcohol live disease drinking alcohol in the future may be fatal. Please abstain from alcohol and follow up with your primary care physician for ongoing resources with regards to this. With your diabetes please restart on your usual diabetes insulin regimen on discharge. Pending Studies at Discharge: No Stand-Alone Forms: My [facility], Smoking Cessation Medications and DC Order Prescriptions: New potassium chloride 10 mEq capsule, extended release 10 meq PO BID Qty: 60 RF: 0 thiamine HCl (vitamin B1) 100 mg tablet 100 mg PO DAILY Qty: 30 RF: 0 Continued fluticasone propion-salmeterol [Advair Diskus] 250-50 mcg/dose blister with device 1 inh inhalation QAM RF: 0 albuterol sulfate [Ventolin HFA] 90 mcg/actuation Hfa Aerosol Inhaler 2 puff INHALATION Q6H PRN (Reason: Shortness Of Breath) RF: 0 multivitamin [Daily-Harris] Tablet 1 tab PO QAM Qty: 0 RF: 0 spironolactone 25 mg Tablet 25 mg PO QAM Qty: 30 RF: 1 furosemide 20 mg Tablet 20 mg PO QAM Qty: 30 RF: 1 Novolin 70/30 U-100 Insulin 100 unit/mL (70-30) suspension 15 unit subcut QAM RF: 0 insulin asp prt-insulin aspart [Novolog Mix 70-30 U-100 Insuln] 100 unit/mL (70-30) solution 10 unit SUBCUT QPM RF: 0 omeprazole 20 mg Capsule,Delayed Release(Dr/Ec) 20 mg PO DAILY RF: 0 famotidine 20 mg Tablet 20 mg PO DAILY PRN (Reason: Gi Upset) RF: 0 vitamin B complex-folic acid 50 mcg Tablet 1 tab PO DAILY RF: 0 mirtazapine 7.5 mg tablet 7.5 mg PO HS RF: 0 Discharge Orders: Discharge Order (Routine); Ordered 11/13/20 Ordered By: Khoa Dominguez/Other Patient Handouts: Alcoholism: Myths and Facts, Alcoholism Resources, Alcoholism: Getting Help, Alcohol Addiction, Addiction: Getting Help, Addiction: Your Treatment Options, A1C Admission Data Admit Date/Time: 11/10/20 18:32 Attending Provider: Khoa Bower Admit Provider: Daniel Christian Primary Care Provider: PCP,NO Other Providers: Gary Muñoz Other Interventions: Discharge Summary Assessment (RN) Last Done: 11/13/20 13:23 Coding Level of Care Code D/C Day Management >30 mins Diagnoses Alcohol withdrawal F10.230 Complication of substance-induced condition: uncomplicated Alcohol abuse F10.10 Cirrhosis K70.30 Ascites presence: unspecified Hepatic cirrhosis type: alcoholic cirrhosis Diabetes mellitus type 1 E10.9 Diabetes mellitus complication status: without complication Asthma J45.909 Asthma complication type: unspecified Asthma persistence: unspecified Asthma severity: unspecified severity Anxiety F41.9 GERD (gastroesophageal reflux disease) K21.9 Esophagitis presence: without esophagitis Coagulopathy D68.9 Abnormal TSH R79.89 Leukopenia D72.819 Thrombocytopenia D69.6
[2020-11-14] MEDS ORDERED: GABAPENTIN 400 MG CAP PO SCH (06:00)
== END 2020-11-13 14:50 | disposition home or self-care (01) | DRG 897 ==
LOC: ED 15:32 → 2S 18:32 → INTOOBSV 18:32 → SUATTDRO 18:32 → 2S 20:30

== ENCOUNTER 2020-11-27 22:01 | Inpatient (IN) ==
[2020-11-27] MEDS ORDERED: MULTI-VITAMIN INFUSION 10 ML, THIAMINE HCL 100 MG, FOLIC ACID 1 MG in SODIUM CHLORIDE 0... IV ONE (22:37)
[2020-11-27] MEDS ORDERED: LORazepam 1 MG/2 ML VIAL IV STA (22:38)
[2020-11-27] MEDS ORDERED: SODIUM CHLORIDE 0.9% 1000ML 1,000 ML IV ONE (22:38)
[2020-11-27] MEDS ORDERED: chlordiazePOXIDE HCl 25 MG CAP PO ONE (22:38)
[2020-11-27 22:44] LABS: Basophils # (auto) 0.09 K/uL (0-0.2); Basophils % (auto) 1.7 %; Eosinophils # (auto) 0.17 K/uL (0-0.5); Eosinophils % (auto) 3.2 %; Hematocrit (blood only) 42.4 % (37-47); Hemoglobin 14.5 g/dL (12.0-16.0); Immature Granulocytes # (auto) 0.01 K/uL (0.00-0.02); Immature Granulocytes % (auto) 0.2 %; Mean Corpuscular Hemoglobin 31.7 pg (25-34); Mean Corpuscular Hgb Conc 34.2 g/dL (32-36); Mean Corpuscular Volume 92.8 fL (80-100); Mean Platelet Volume 9.8 fL (7.4-10.4); Monocytes # (auto) 0.45 K/uL (0.11-0.59); Monocytes % (auto) 8.6 %; Neutrophils # (auto) 2.43 K/uL (1.4-6.5); Neutrophils % (auto) 46.3 %; Platelet Count 164 K/uL (130-400); RDW Coefficient of Variation 14.4 % (11.5-14.5); RDW Standard Deviation 48.8 fL (36.4-46.3); Red Blood Count 4.57 M/uL (4.2-5.4); White Blood Count 5.25 K/uL (4.8-10.8)
[2020-11-27 23:04] LABS: Pregnancy Test, Serum Negative (Negative)
[2020-11-27 23:08] LABS: Albumin Level 3.4 gm/dl (3.4-5.0); BUN Creatinine Ratio 9.2 (10-20); Calcium 9.9 mg/dl (8.5-10.1); Creatinine Clr Calc Pharmacy 109.6 ml/min; Est GFR (Non-African American) 111.3 ml/min; Magnesium 1.9 mg/dl (1.8-2.4); Potassium 3.5 mmol/L (3.5-5.1)
[2020-11-27 23:11] LABS: Albumin Globulin Ratio 0.7 (0.9-2); Bilirubin,Total 1.1 mg/dl (0.2-1); Globulin 4.7 gm/dl (2.5-4.0); Total Protein 8.1 gm/dl (6.4-8.2)
[2020-11-27 23:15] LABS: Acetaminophen < 2 ug/ml (10-30)
[2020-11-27 23:16] LABS: Salicylate < 2.8 mg/dl (2.8-20)
--- NOTE | 2020-11-28 01:43 | Emergency Department Note ---
History of Present Illness General Chief complaint: Alcohol Withdrawal Stated complaint: ALCOHOL WITHDRAWL Time Seen by Provider: 11/27/20 22:35 History of Present Illness This 45-year-old alcoholic presents to the ER complaining of requesting detox he is currently intoxicated Location: Generalized Quality: Shaky Severity: Moderate Duration: Today Timing: Today Context: Patient wanted detox and came in Modifying factors: better with alcohol; worse with not drinking Patient denies chest pain, dyspnea, abdominal pain, fevers, vomiting, diarrhea. Home Medications Medication Instructions Recorded Confirmed Type fluticasone propion-salmeterol 1 inh INHALATION QAM 02/27/19 11/27/20 History [Advair Diskus] albuterol sulfate [Ventolin HFA] 2 puff INHALATION Q6H PRN 07/23/19 11/27/20 History multivitamin [Daily-Harris] 1 tab PO QAM #0 tab 07/27/19 11/27/20 Rx furosemide 20 mg PO QAM #30 tab 06/08/20 11/27/20 Rx spironolactone 25 mg PO QAM #30 tab 06/08/20 11/27/20 Rx famotidine 20 mg PO DAILY PRN 11/10/20 11/27/20 History insulin asp prt-insulin aspart 0 unit SUBCUT BID 11/10/20 11/27/20 History [Novolog Mix 70-30 U-100 Insuln] omeprazole 20 mg PO DAILY 11/10/20 11/27/20 History vitamin B complex-folic acid 1 tab PO DAILY 11/10/20 11/27/20 History mirtazapine 7.5 mg PO HS 11/12/20 11/27/20 History potassium chloride 10 meq PO BID #60 cap 11/13/20 11/27/20 Rx Allergies Allergy/AdvReac Type Severity Reaction Status Date / Time theophylline AdvReac Unknown VERTIGO Verified 11/27/20 23:07 Past Med/Surg History Medical History Alcohol abuse Anxiety Asthma Diabetes mellitus type 1 Surgical History History of dental surgery History of esophagogastroduodenoscopy (EGD) Family History Father Prediabetes Grandfather (Paternal) Diabetes Mother Hypertension MVP (mitral valve prolapse) Social History Smoking Status: Former smoker Tobacco Type: Cigarettes Age Quit Using Tobacco: 39; packs per day: 1; Years Smoked: 2; Number of Years Since Quit: 4; Second Hand Exposure: No; Hx Alcohol Use: Yes Alcohol type: wine and hard liquor Alcohol type Comment: 4 glasses wine daily Hx Substance Use: No Preferred Language: Croatian Communication Ability: Effective Visual Impairment: No Limitations Billing Control Clerk Required: No Beliefs That Will Affect Care: None marital status: marital status details: Single parent Current Living Situation: Alone current occupational status: unemployed Feels Safe at Home: Yes Childhood Exposure to Second-Hand Smoke: No Assistive Devices: Walker Review of Systems A total of 10 systems reviewed and were otherwise negative Physical Exam Vital Signs Vital Signs - 24 hr 11/27/20 22:05 11/28/20 00:04 11/28/20 01:08 Temperature 36.9 C Temperature Source Temporal Artery Scan Pulse Rate 108 H Pulse Rate [Right] 92 H 89 Pulse Rhythm [Right] Regular Regular Pulse Strength [Right] Normal Normal Respiratory Rate 16 16 16 Respiratory Effort / Characteristics Non-Labored Spontaneous Non-Labored Spontaneous Non-Labored Spontaneous Respiratory Depth Normal Normal Normal Blood Pressure 123/77 Blood Pressure [Right Arm] 95/66 L 101/64 Blood Pressure Mean 92 Blood Pressure Mean [Right Arm] 75 76 Blood Pressure Position Sitting Blood Pressure Position [Right Arm] Lying Sitting Pulse Oximetry 95 95 96 Oxygen Delivery Method Room Air Nasal Cannula Nasal Cannula Oxygen Flow Rate 2 2 Sepsis Recent Fever Within 48 Hours No Sepsis New/Unexplained Change in Mental Status N/A Sepsis Action Taken by Nursing No Action Required VITALS: Vitals are noted on the nurse's note and reviewed by myself. Vital signs stable. GENERAL: Pleasant female with a EtOH odor, in no acute distress, nondiaphoretic, well-developed well-nourished. SKIN: The skin was without rashes, erythema, edema, or bruising. There is no tenting of the skin. Capillary reflex less than 2 seconds. HEAD: Normocephalic atraumatic. EARS: External auditory canals clear, tympanic membranes pearly shine without erythema or effusion bilaterally. EYES: Pupils equal round and reactive to light and accommodation. Conjunctivae with injection, sclerae without icterus. Extraocular movements intact. NOSE: Patent, turbinates without inflammation or discharge. No sinus tenderness. MOUTH: Mucous membranes moist. Pharynx without erythema or exudate. Uvula midline. Airway patent. Tongue does not deviate. NECK: Supple without nuchal rigidity. No lymphadenopathy. No thyromegaly. Cervical spine is nontender. No JVD. HEART: Regular rate and rhythm LUNGS: Clear to auscultation bilaterally without wheezes, rales or rhonchi. No retractions or accessory muscle use. ABDOMEN: Positive bowel sounds x 4. Normal tympanic percussion. Soft, nontender, without masses or organomegaly. Duckworth sign negative. No guarding or rebound tenderness. No CVA tenderness MUSCULOSKELETAL: No muscle atrophy, erythema, or edema noted. NEURO: Patient was alert and oriented to person place and time. Normal sensation to light and sharp touch. No focal neurological deficits. Course Administered Medications Discontinued Medications Chlordiazepoxide HCl (Chlordiazepoxide Hcl 25 Mg Cap) 50 mg PO NOW ONE Stop: 11/27/20 22:39 Last Admin: 11/27/20 23:06 Dose: 50 mg Documented by: [id number] Multivitamins 10 ml/ Thiamine HCl 100 mg/ Folic Acid 1 mg/Sodium Chloride 1,011.2 mls @ 1,011.2 mls/hr IV .Q1H ONE Stop: 11/27/20 23:36 Last Infusion: 11/28/20 00:07 Dose: 0 mls/hr Documented by: [id number] Admin: 11/27/20 23:05 Dose: 1,011.2 mls/hr Documented by: [id number] Lorazepam (Ativan) 1 mg in 2 mls @ 2 mls/min IV NOW STA Stop: 11/27/20 22:39 Last Admin: 11/27/20 23:05 Dose: 2 mls/min Documented by: [id number] Sodium Chloride (Nss 1000ml) 1,000 mls @ 999 mls/hr IV .Q1H1M ONE Stop: 11/27/20 23:38 Last Infusion: 11/28/20 00:07 Dose: 0 mls/hr Documented by: [id number] Admin: 11/27/20 23:05 Dose: 999 mls/hr Documented by: [id number] Medical Decision Making Medical Records Attestation: I reviewed the patient's medical records. Home Medications Current Medication List: was personally reviewed by me Laboratory Data Attestation: I reviewed the patient's lab results. Result diagrams: 11/27/20 22:30 11/27/20 22:30 Lab Results 11/27/20 11/27/20 11/27/20 Range/Units 22:30 22:30 22:30 WBC 5.25 (4.8-10.8) K/uL RBC 4.57 (4.2-5.4) M/uL Hgb 14.5 (12.0-16.0) g/dL Hct 42.4 (37-47) % MCV 92.8 (80-100) fL MCH 31.7 (25-34) pg MCHC 34.2 (32-36) g/dL RDW Std Deviation 48.8 H (36.4-46.3) fL RDW Coeff of Suzanne 14.4 (11.5-14.5) % Plt Count 164 (130-400) K/uL MPV 9.8 (7.4-10.4) fL Immature Gran % (Auto) 0.2 % Neut % (Auto) 46.3 % Lymph % (Auto) 40.0 % [place] % (Auto) 8.6 % Eos % (Auto) 3.2 % Baso % (Auto) 1.7 % Neut # (Auto) 2.43 (1.4-6.5) K/uL Lymph # (Auto) 2.10 (1.2-3.4) K/uL [place] # (Auto) 0.45 (0.11-0.59) K/uL Eos # (Auto) 0.17 (0-0.5) K/uL Baso # (Auto) 0.09 (0-0.2) K/uL Immature Gran # (Auto) 0.01 (0.00-0.02) K/uL Sodium 141 (136-145) mmol/L Potassium 3.5 (3.5-5.1) mmol/L Chloride 109 H (98-107) mmol/L Carbon Dioxide 23 (21-32) mmol/L Anion Gap 9.0 (3-11) BUN 5 L (7-18) mg/dl Creatinine 0.58 L (0.6-1.2) mg/dl Est Cr Clr Drug Dosing 109.6 ml/min Est GFR ( Amer) 129.0 ml/min Est GFR (Non-Af Amer) 111.3 ml/min BUN/Creatinine Ratio 9.2 L (10-20) Glucose 155 H (70-99) mg/dl Calcium 9.9 (8.5-10.1) mg/dl Magnesium 1.9 (1.8-2.4) mg/dl Total Bilirubin 1.1 H (0.2-1) mg/dl AST 99 H (15-37) U/L ALT 37 (12-78) U/L Alkaline Phosphatase 171 H (45-117) U/L Total Creatine Kinase 40 (26-192) U/L Total Protein 8.1 (6.4-8.2) gm/dl Albumin 3.4 (3.4-5.0) gm/dl Globulin 4.7 H (2.5-4.0) gm/dl Albumin/Globulin Ratio 0.7 L (0.9-2) Lipase 54 L (73-393) U/L HCG, Qual (Negative) Salicylates (2.8-20) mg/dl Acetaminophen (10-30) ug/ml Ethyl Alcohol mg/dL 373.0 H (0-3) mg/dl COVID-19 Eval Order SARS-CoV-2 (PCR) (Negative) 11/27/20 11/27/20 11/28/20 Range/Units 22:30 22:32 00:12 WBC (4.8-10.8) K/uL RBC (4.2-5.4) M/uL Hgb (12.0-16.0) g/dL Hct (37-47) % MCV (80-100) fL MCH (25-34) pg MCHC (32-36) g/dL RDW Std Deviation (36.4-46.3) fL RDW Coeff of Suzanne (11.5-14.5) % Plt Count (130-400) K/uL MPV (7.4-10.4) fL Immature Gran % (Auto) % Neut % (Auto) % Lymph % (Auto) % [place] % (Auto) % Eos % (Auto) % Baso % (Auto) % Neut # (Auto) (1.4-6.5) K/uL Lymph # (Auto) (1.2-3.4) K/uL [place] # (Auto) (0.11-0.59) K/uL Eos # (Auto) (0-0.5) K/uL Baso # (Auto) (0-0.2) K/uL Immature Gran # (Auto) (0.00-0.02) K/uL Sodium (136-145) mmol/L Potassium (3.5-5.1) mmol/L Chloride (98-107) mmol/L Carbon Dioxide (21-32) mmol/L Anion Gap (3-11) BUN (7-18) mg/dl Creatinine (0.6-1.2) mg/dl Est Cr Clr Drug Dosing ml/min Est GFR ( Amer) ml/min Est GFR (Non-Af Amer) ml/min BUN/Creatinine Ratio (10-20) Glucose (70-99) mg/dl Calcium (8.5-10.1) mg/dl Magnesium (1.8-2.4) mg/dl Total Bilirubin (0.2-1) mg/dl AST (15-37) U/L ALT (12-78) U/L Alkaline Phosphatase (45-117) U/L Total Creatine Kinase (26-192) U/L Total Protein (6.4-8.2) gm/dl Albumin (3.4-5.0) gm/dl Globulin (2.5-4.0) gm/dl Albumin/Globulin Ratio (0.9-2) Lipase (73-393) U/L HCG, Qual Negative (Negative) Salicylates < 2.8 L (2.8-20) mg/dl Acetaminophen < 2 L (10-30) ug/ml Ethyl Alcohol mg/dL (0-3) mg/dl COVID-19 Eval Order Covid19 at [facility] SARS-CoV-2 (PCR) (Negative) 11/28/20 Range/Units 00:12 WBC (4.8-10.8) K/uL RBC (4.2-5.4) M/uL Hgb (12.0-16.0) g/dL Hct (37-47) % MCV (80-100) fL MCH (25-34) pg MCHC (32-36) g/dL RDW Std Deviation (36.4-46.3) fL RDW Coeff of Suzanne (11.5-14.5) % Plt Count (130-400) K/uL MPV (7.4-10.4) fL Immature Gran % (Auto) % Neut % (Auto) % Lymph % (Auto) % [place] % (Auto) % Eos % (Auto) % Baso % (Auto) % Neut # (Auto) (1.4-6.5) K/uL Lymph # (Auto) (1.2-3.4) K/uL [place] # (Auto) (0.11-0.59) K/uL Eos # (Auto) (0-0.5) K/uL Baso # (Auto) (0-0.2) K/uL Immature Gran # (Auto) (0.00-0.02) K/uL Sodium (136-145) mmol/L Potassium (3.5-5.1) mmol/L Chloride (98-107) mmol/L Carbon Dioxide (21-32) mmol/L Anion Gap (3-11) BUN (7-18) mg/dl Creatinine (0.6-1.2) mg/dl Est Cr Clr Drug Dosing ml/min Est GFR ( Amer) ml/min Est GFR (Non-Af Amer) ml/min BUN/Creatinine Ratio (10-20) Glucose (70-99) mg/dl Calcium (8.5-10.1) mg/dl Magnesium (1.8-2.4) mg/dl Total Bilirubin (0.2-1) mg/dl AST (15-37) U/L ALT (12-78) U/L Alkaline Phosphatase (45-117) U/L Total Creatine Kinase (26-192) U/L Total Protein (6.4-8.2) gm/dl Albumin (3.4-5.0) gm/dl Globulin (2.5-4.0) gm/dl Albumin/Globulin Ratio (0.9-2) Lipase (73-393) U/L HCG, Qual (Negative) Salicylates (2.8-20) mg/dl Acetaminophen (10-30) ug/ml Ethyl Alcohol mg/dL (0-3) mg/dl COVID-19 Eval Order SARS-CoV-2 (PCR) NEGATIVE (Negative) Imaging Data Attestation: I personally reviewed and interpreted this imaging study as follows: MDM Narrative Prior records/ancillary studies reviewed. Triage Nursing notes reviewed. Additional history obtained from nursing. The patient's history was concerning for alcohol intoxication requesting detox Differential diagnosis: Etiologies such as toxicologic, infection, hypoglycemia, electrolyte abnormalities, cardiac sources, intracerebral event, neurologic, as well as others were entertained. Physical examination: The patient had a normal sensorium. No trauma noted. ER treatment provided: IV NSS 1 L bolus Banana bag, Ativan, Librium An order was placed for continuous cardiac monitoring. The monitor shows a rate of 60-1 10 with a sinus rhythm. On reassessment the patient was stable and improving. Diagnostic interpretation by me: The electrocardiogram was negative for pathologic change. There was no QRS widening or interval prolongation. Normal sinus, normal intervals, no acute ST- T wave changes. Impression normal sinus rhythm interpreted by myself EKG ordered for polysubstance use I think arrhythmia is unlikely. EKG shows normal sinus rhythm with no interval abnormalities such as QT prolongation or WPW. There are no findings to suggest Brugada syndrome. Cardiac monitoring in the emergency department reveals no ta chycardic or bradycardic dysrhythmia. Hypertrophic cardiomyopathy was considered but there are no clear historical elements pointing toward this. EKG is not suggestive. The QRS voltage is not extremely large and there are no suggestive Q waves. The labs revealed stable H&H Alcohol 373 Consultation: A consultation was placed with the hospitalist. The case was discussed and diagnostics were reviewed. The patient was evaluated in the ER for further treatment. This appears to be consistent with alcohol intoxication who wants detox. Medicine was consulted. Patient was already shaky. She started on Ativan and Librium. She was given a banana bag. She will be evaluated for possible ad mission. By the evaluation outlined above emergent etiologies such as infection, hypoglycemia, electrolyte abnormalities, cardiac sources, intracerebral event, neurologic,as well as others were deemed relatively unlikely. The pt informed about the findings as listed above. All questions were answered and pleased with the treatment. The chart was completed utilizing [employer] voice recognition software. Grammatical errors, random word insertions, pronoun errors, and incomplete sente nces are an occassional consequence of this system due to software limitations, ambient noise, and hardware issues. Any formal questions or concerns about the content, text, or information contained within the body of this dictation should be directly addressed to the physician university administrative assistant for clarification. Impression & Plan Alcohol abuse Discharge Plan Visit Data Chief Complaint: Alcohol Withdrawal Stated Complaint: ALCOHOL WITHDRAWL ED Provider: Bismark Guerrero ED Midlevel Provider: Heide Blanco Discharge Problem: Alcohol abuse Patient Disposition: Admitted As Inpatient Condition: Good Forms Stand Alone Forms: My [facility], Suicide Prevention Resources Prescriptions Prescriptions: No Action fluticasone propion-salmeterol [Advair Diskus] 250-50 mcg/dose blister with device 1 inh inhalation QAM RF: 0 albuterol sulfate [Ventolin HFA] 90 mcg/actuation Hfa Aerosol Inhaler 2 puff INHALATION Q6H PRN (Reason: Shortness Of Breath) RF: 0 multivitamin [Daily-Harris] Tablet 1 tab PO QAM Qty: 0 RF: 0 spironolactone 25 mg Tablet 25 mg PO QAM Qty: 30 RF: 1 furosemide 20 mg Tablet 20 mg PO QAM Qty: 30 RF: 1 insulin asp prt-insulin aspart [Novolog Mix 70-30 U-100 Insuln] 100 unit/mL (70-30) solution 0 unit SUBCUT BID RF: 0 omeprazole 20 mg Capsule,Delayed Release(Dr/Ec) 20 mg PO DAILY RF: 0 famotidine 20 mg Tablet 20 mg PO DAILY PRN (Reason: Gi Upset) RF: 0 vitamin B complex-folic acid 50 mcg Tablet 1 tab PO DAILY RF: 0 mirtazapine 7.5 mg tablet 7.5 mg PO HS RF: 0 potassium chloride 10 mEq capsule, extended release 10 meq PO BID Qty: 60 RF: 0 Referrals Referrals: Kendell Hollins [Primary Care Provider] -
[2020-11-28] MEDS ORDERED: ALBUTEROL HFA 8 GM INHALER INH PRN (02:23)
[2020-11-28] MEDS ORDERED: GABAPENTIN 1200MG ALCOHOL WITHDRAWAL LOAD PO STA (02:23)
[2020-11-28] MEDS ORDERED: PHARMACY GLYCEMIC MGMT CONSULT PRN (02:38)
[2020-11-28] MEDS ORDERED: GABAPENTIN 600 MG TAB PO STA (02:40)
[2020-11-28] MEDS ORDERED: MULTI-VITAMIN INFUSION 10 ML, THIAMINE HCL 100 MG, FOLIC ACID 1 MG in SODIUM CHLORIDE 0... IV ONE (02:45)
[2020-11-28] MEDS ORDERED: LACTATED RINGER'S 1,000 ML IV SCH (03:00)
[2020-11-28] MEDS ORDERED: INSULIN ASPART 100 UNITS/ML 3 ML PEN SC SCH (03:00)
[2020-11-28] MEDS ORDERED: CARBOHYDRATES FOR HYPOGLYCEMIA PO PRN (03:15)
[2020-11-28] MEDS ORDERED: GLUCOSE 10 TABS/TUBE PO PRN (03:15)
[2020-11-28] MEDS ORDERED: DEXTROSE 50% 50 ML SYRINGE IV PRN (03:15)
[2020-11-28] MEDS ORDERED: GLUCAGON FOR INJ 1 MG VIAL IM PRN (03:15)
[2020-11-28] MEDS ORDERED: GLUCOSE 40% GEL 15 GM TUBE PO PRN (03:15)
--- NOTE | 2020-11-28 04:43 | History & Physical Report ---
Date of Service November 28, 2020 Assessment & Plan (1) Alcoholism: 45yo female with longstanding history of EtOH abuse presenting with EtOH withdrawal. Patient's EtOH vnyys=[id number]. Last drink was 11/27/20 around 15:00. Patient received Librium 50mg in ER -Admit to PCU -Maintain seizure precautions -Gapapentin per protocol -AWSS Ativan IV -Folic Acid 1mg IV daily -High dose Thiamine 500mg IV TID -Continue home Spironolactone and Lasix Present on Admission?: Yes (2) GERD (gastroesophageal reflux disease): Chronic -Continue Protonix 40mg po daily Present on Admission?: Yes (3) Cirrhosis: Chronic. Patient with abdominal distention. -Check INR -Continue Lasix and Spironolactone Present on Admission?: Yes (4) Diabetes: Patient states that her diabetes is steroid induced. She is on 70/30 at home -Glycemic management consultation Present on Admission?: Yes (5) Asthma: Well controlled -Continue Advair -Albuterol PRN F/E/N - LR at 125mL/hr x 1 bag, Electrolytes WNL, continue PO Potassium, regular diet as tolerated Ppx - SCD Code - Full Dispo -Admit to PCU Present on Admission?: Yes Admission and Anticipated Discharge Date Admission Date: November 28, 2020 History of Present Illness Chief Complaint: EtOH withdrawal Primary Care Provider: Kendell Hollins Marcus Avelar is a 45yo female with history of asthma, DM, EtOH abuse with cirrhosis, prior pancreatitis and alcohol hepatitis presenting with EtOH withdrawal. Patient has longstanding history of EtOH abuse. She has tried rehabilitation in the past as well as AA and outpatient programs. She recently states that she has been trying to cut back on her EtOH intake. She drinks 1 pint of vodka daily as well as wine. She presents today with tremors that started a few hours ago. Symptoms of withdrawal. Last drink was yesterday afternoon 11/27/20 around 15:00. Allergies Allergy/AdvReac Type Severity Reaction Status Date / Time theophylline AdvReac Unknown VERTIGO Verified 11/27/20 23:07 Home Medications Medication Instructions Recorded Confirmed Type fluticasone propion-salmeterol 1 inh INHALATION QAM 02/27/19 11/27/20 History [Advair Diskus] albuterol sulfate [Ventolin HFA] 2 puff INHALATION Q6H PRN 01/31/20 06/07/21 History multivitamin [Daily-Harris] 1 tab PO QAM #0 tab 07/27/19 11/27/20 Rx furosemide 20 mg PO QAM #30 tab 06/08/20 11/27/20 Rx spironolactone 25 mg PO QAM #30 tab 06/08/20 11/27/20 Rx famotidine 20 mg PO DAILY PRN 11/10/20 11/27/20 History insulin asp prt-insulin aspart 0 unit SUBCUT BID 11/10/20 11/27/20 History [Novolog Mix 70-30 U-100 Insuln] omeprazole 20 mg PO DAILY 11/10/20 11/27/20 History vitamin B complex-folic acid 1 tab PO DAILY 11/10/20 11/27/20 History mirtazapine 7.5 mg PO HS 11/12/20 11/27/20 History potassium chloride 10 meq PO BID #60 cap 11/13/20 11/27/20 Rx Past Med/Surg History Medical History Alcohol abuse Anxiety Asthma Diabetes mellitus type 1 Surgical History History of dental surgery History of esophagogastroduodenoscopy (EGD) Family History Father Prediabetes Grandfather (Paternal) Diabetes Mother Hypertension MVP (mitral valve prolapse) Social History Smoking Status: Former smoker Tobacco Type: Cigarettes Age Quit Using Tobacco: 39; packs per day: 1; Years Smoked: 2; Number of Years Since Quit: 4; Second Hand Exposure: No; Hx Alcohol Use: Yes Alcohol type: wine and hard liquor Alcohol type Comment: 4 glasses wine daily Hx Substance Use: Yes Preferred Language: [place] Communication Ability: Effective Visual Impairment: No Limitations Line Leader Required: No Beliefs That Will Affect Care: None marital status: marital status details: Single parent Current Living Situation: Alone current occupational status: unemployed Feels Safe at Home: Yes Childhood Exposure to Second-Hand Smoke: No Assistive Devices: Walker Review of Systems Review of Systems: +Nausea +Chills +Diarrhea Physical Exam Physical Exam: General: patient resting comfortably, NAD, non-toxic in appearance, AA&O x 4, tremulous Skin: warm, dry, intact, no rashes or lesions HEENT: NC/AT, PERRL, EOMI, anicteric sclera, conjunctiva without injection, external ear normal to inspection and nontender, nares patent, moist mucus membranes, dentition intact, no oropharyngeal lesions, neck supple, trachea midline, no LAD, no thyromegaly, no JVD Heart: +S1/S2, regular, no m/r/g Lungs: equal air entry bilaterally, no rales/rhonchi/wheezes Abd: +BS, soft, NT, distended, tympanic, no masses/organomegaly, +ascites Ext: warm, 2+ pulses in UE/LE bilaterally, no clubbing/cyanosis or edema Neuro: nonfocal, patient AA&O x 4, speech intact, no facial droop, moving all extremities on command with equal strength 5/5 Results & Data Results & Data ([facility]) Vital Signs (Past 12 Hours) Vital Signs Temp Pulse Pulse Resp BP BP Pulse Ox 11/28/20 02:15 36.8 C 85 20 93/61 L 93 11/28/20 01:52 88 16 101/61 98 11/28/20 01:08 89 16 101/64 96 11/28/20 00:04 92 H 16 95/66 L 95 11/27/20 22:05 36.9 C 108 H 16 123/77 95 Laboratory Results Laboratory Results WBC 5.25 K/uL (4.8-10.8) 11/27/20 22:30 RBC 4.57 M/uL (4.2-5.4) 11/27/20 22:30 Hgb 14.5 g/dL (12.0-16.0) 11/27/20 22:30 Hct 42.4 % (37-47) 11/27/20 22:30 MCV 92.8 fL (80-100) 11/27/20 22:30 MCH 31.7 pg (25-34) 11/27/20 22:30 MCHC 34.2 g/dL (32-36) 11/27/20 22:30 RDW Std Deviation 48.8 fL (36.4-46.3) H 11/27/20 22:30 RDW Coeff of Suzanne 14.4 % (11.5-14.5) 11/27/20 22: Plt Count 164 K/uL (130-400) 11/27/20 22:30 MPV 9.8 fL (7.4-10.4) 11/27/20 22:30 Immature Gran % (Auto) 0.2 % 11/27/20 22:30 Neut % (Auto) 46.3 % 11/27/20 22:30 Lymph % (Auto) 40.0 % 11/27/20 22:30 [place] % (Auto) 8.6 % 11/27/20 22: Eos % (Auto) 3.2 % 11/27/20 22: Baso % (Auto) 1.7 % 11/27/20: Neut # (Auto) 2.43 K/uL (1.4-6.5) 11/27/20 22:30 Lymph # (Auto) 2.10 K/uL (1.2-3.4) 11/27/20 22:30 [place] # (Auto) 0.45 K/uL (0.11-0.59) 11/27/20 22:30 Eos # (Auto) 0.17 K/uL (0-0.5) 11/27/20 22:30 Baso # (Auto) 0.09 K/uL (0-0.2) 11/27/20 22:30 Immature Gran # (Auto) 0.01 K/uL (0.00-0.02) 11/27/20 22:30 Sodium 141 mmol/L (136-145) 11/27/20 22:30 Potassium 3.5 mmol/L (3.5-5.1) 11/27/20 22:30 Chloride 109 mmol/L (98-107) H 11/27/20 22:30 Carbon Dioxide 23 mmol/L (21-32) 11/27/20 22:30 Anion Gap 9.0 (3-11) 11/27/20 22:30 BUN 5 mg/dl (7-18) L 11/27/20 22:30 Creatinine 0.58 mg/dl (0.6-1.2) L 11/27/20 22:30 Est Cr Clr Drug Dosing 109.6 ml/min 11/27/20 22:30 Est GFR ( Amer) 129.0 ml/min 11/27/20 22:30 Est GFR (Non-Af Amer) 111.3 ml/min 11/27/20 22:30 BUN/Creatinine Ratio 9.2 (10-20) L 11/27/20 22:30 Glucose 155 mg/dl (70-99) H 11/27/20 22:30 POC Glucose 127 mg/dl (70-99) H 11/28/20 03:26 Calcium 9.9 mg/dl (8.5-10.1) 11/27/20 22:30 Magnesium 1.9 mg/dl (1.8-2.4) 11/27/20 22:30 Total Bilirubin 1.1 mg/dl (0.2-1) H 11/27/20 22:30 AST 99 U/L (15-37) H 11/27/20 22:30 ALT 37 U/L (12-78) 11/27/20 22:30 Alkaline Phosphatase 171 U/L (45-117) H 11/27/20 22:30 Total Creatine Kinase 40 U/L (26-192) 11/27/20 22:30 Total Protein 8.1 gm/dl (6.4-8.2) 11/27/20 22:30 Albumin 3.4 gm/dl (3.4-5.0) 11/27/20 22:30 Globulin 4.7 gm/dl (2.5-4.0) H 11/27/20 22:30 Albumin/Globulin Ratio 0.7 (0.9-2) L 11/27/20 22:30 Lipase 54 U/L (73-393) L 11/27/20 22:30 HCG, Qual Negative (Negative) 11/27/20 22:30 Salicylates < 2.8 mg/dl (2.8-20) L 11/27/20 22:32 Acetaminophen < 2 ug/ml (10-30) L 11/27/20 22:32 Ethyl Alcohol mg/dL 373.0 mg/dl (0-3) H 11/27/20 22:30 COVID-19 Eval Order Covid19 at [facility] 11/28/20 00:12 SARS-CoV-2 (PCR) NEGATIVE (Negative) 11/28/20 00:12 PG Care Time/CCT Total # of Minutes Spent Total Time Spent with Patient: Total time spent is greater than 50% in coordination of care (as documented) at patient's floor/unit and/or counseling patient: Coding Level of Care Code 78673 Initial Inpt Care Lvl 3 Diagnoses Alcoholism F10.20 GERD (gastroesophageal reflux disease) K21.9 Esophagitis presence: without esophagitis Cirrhosis K70.30 Hepatic cirrhosis type: alcoholic cirrhosis Ascites presence: unspecified Diabetes E08.9 Diabetes mellitus type: due to underlying condition Diabetes mellitus usp insulin use: unspecified fagot heater helper insulin use status Diabetes mellitus complication status: without complication Asthma J45.909 Asthma severity: unspecified severity Asthma persistence: unspecified Asthma complication type: unspecified (1) GERD (gastroesophageal reflux disease) Esophagitis presence: without esophagitis Qualified Code(s): K21.9 - Gastro- esophageal reflux disease without esophagitis (2) Cirrhosis Hepatic cirrhosis type: alcoholic cirrhosis Ascites presence: unspecified Qualified Code(s): K70.30 - Alcoholic cirrhosis of liver without ascites (3) Asthma Asthma severity: unspecified severity Asthma persistence: unspecified Asthma complication type: unspecified Qualified Code(s): J45.909 - Unspecified asthma, uncomplicated (4) Diabetes Diabetes mellitus type: due to underlying condition Diabetes mellitus usp insulin use: unspecified fagot heater helper insulin use status Diabetes mellitus complication status: without complication Qualified Code(s): E08.9 - Diabetes mellitus due to underlying condition without complications
[2020-11-28 07:43] LABS: Appearance Urine Clear (Clear); Bilirubin Urine Negative (Negative); Blood Urine Negative (Negative); Color Urine Dark Yellow; Glucose Urine UA Negative (Negative); Ketones Urine Negative (Negative); Leukocyte Esterase Urine Negative (Negative); Nitrite Urine Negative (Negative); Protein Urine Negative (Negative); Specific Gravity Urine 1.015 (1.000-1.030); Urobilinogen Urine Negative (Negative)
[2020-11-28] MEDS: POTASSIUM CHLORIDE 10 MEQ TABCR PO SCH ×2 (08:05→21:12)
[2020-11-28] MEDS: FOLIC ACID 1 MG in SYRINGE 9.8 ML IV SCH (08:06)
[2020-11-28] MEDS: GABAPENTIN 600 MG TAB PO SCH ×3 (08:06→21:16)
[2020-11-28] MEDS: PANTOprazole 40 MG TAB PO SCH (08:06)
[2020-11-28] MEDS: SPIRONOLACTONE 25 MG TAB PO SCH (08:06)
[2020-11-28] MEDS: FUROSEMIDE 20 MG TAB PO SCH (08:06)
[2020-11-28] MEDS: FLUTICASONE/VILANTEROL 100/25MCG 14 PUFFS/INHALER INH SCH (08:07)
[2020-11-28] MEDS: INSULIN GLARGINE SOLOSTAR 100 UNITS/ML 3 ML PEN SC SCH ×2 (08:07→21:10)
[2020-11-28 08:08] LABS: Amphetamines+Metham, Urine Neg (Neg); Barbiturates, Urine Pos (Neg); Benzodiazepine, Urine Neg (Neg); Cocaine, Urine Neg (Neg); MDMA (Ecstacy), Urine Neg (Neg); Methadone, Urine Neg (Neg); Opiate, Urine Neg (Neg); Phencyclidine, Urine Neg (Neg)
[2020-11-28] MEDS: THIAMINE HCL 500 MG in 0.9 % SODIUM CHLORIDE 100 ML IV SCH ×3 (08:09→21:10)
[2020-11-28] MEDS: INSULIN ASPART 100 UNITS/ML 3 ML PEN SC SCH ×4 (08:10→21:11)
--- NOTE | 2020-11-28 12:48 | Pharmacy Report ---
Pharmacy Glycemic Short Note 2 - Date of Service November 28, 2020 - Glycemic Short BSG Results (Last 24 hours): 11/27/20 11/28/20 11/28/20 22:30 03:26 07:21 Glucose 155 H POC Glucose 127 H 118 H 11/28/20 11:27 Glucose POC Glucose 128 H OUTPATIENT ANTIDIABETIC REGIMEN: * Novolog 70/30 * 10 units SQ qAM * 5-15 units SQ qPM * HbA1c: 6.5% (11/11/20) ASSESSMENT: * Ms Avelar is a 45yo diabetic woman, admitted for EtOH withdrawal. She is well- known to the pharmacy glycemic management service from past admissions. * BSGs have been well-controlled since admission (155, 124, 118, 128). * We typically do not use 70/30 insulin during admission d/t difficulty in titration, so Lantus/Novolog was initiated, at doses that have been successful for pt in previous hospitalizations. PLAN FOR INPATIENT GLYCEMIC CONTROL: * Basal insulin * Lantus 5 units SQ BID * Bolus insulin * NovoLog per scale ACHS or Q6hrs while NPO * Goal Range: Low 110 mg/dL - High 140 mg/dL * Correction Factor: 35 mg/dL/unit * Nutritional / Prandial insulin per carb ratio of 1 unit per 11 grams CHO consumed PLAN FOR DISCHARGE: * A1c: 6.5% * This indicates adequate glycemic control as an outpt. Expect that pt may resume prev regimen on discharge, as long as she does not report having episodes of hypoglycemia.
[2020-11-28] MEDS: LORazepam 1 MG TAB PO PRN ×2 (13:07→19:49)
[2020-11-28] MEDS ORDERED: chlordiazePOXIDE HCl 25 MG CAP PO PRN (15:52)
--- NOTE | 2020-11-28 16:03 | History & Physical Bridge Note ---
Date of Service November 28, 2020 History & Physical Bridge Note I have examined the patient, reviewed the History & Physical and in the interval since the performance of the History & Physical I have noted the following changes of clinical significance: patient says she is sleepy, has required a few doses of Ativan, withdrawal score has been around 6 at most eating well, no pain, no nausea, no dyspnea will downgrade to medical floor add Librium 50mg PO q8 PRN for alcohol withdrawal, continue Gabapentin taper check labs in AM
[2020-11-28] MEDS ORDERED: MIRTAZAPINE TAB 15 MG TAB PO SCH (21:00)
--- NOTE | 2020-11-29 05:42 | Electrocardiogram Report ---
Test Reason : Blood Pressure : / mmHG Vent. Rate : 092 BPM Atrial Rate : 092 BPM P-R Int : 136 ms QRS Dur : 082 ms QT Int : 334 ms P-R-T Axes : 034 023 026 degrees QTc Int : 413 ms Normal sinus rhythm Low voltage QRS Cannot rule out Anterior infarct , age undetermined Abnormal ECG When compared with ECG of 12-NOV-2020 05:12, No significant change was found Confirmed by Kevin Lambert ([id number]) on 11/29/2020 5:41:47 AM Referred By: REFERRED SELF Confirmed By:Kevin Lambert
[2020-11-29] MEDS: GABAPENTIN 600 MG TAB PO SCH ×2 (06:02→13:04)
[2020-11-29 06:15] LABS: Basophils # (auto) 0.05 K/uL (0-0.2); Basophils % (auto) 2.1 %; Eosinophils # (auto) 0.07 K/uL (0-0.5); Hematocrit (blood only) 38.2 % (37-47); Hemoglobin 12.8 g/dL (12.0-16.0); Lymphocytes # (auto) 0.87 K/uL (1.2-3.4); Lymphocytes % (auto) 37.3 %; Mean Corpuscular Hemoglobin 31.9 pg (25-34); Mean Corpuscular Hgb Conc 33.5 g/dL (32-36); Mean Corpuscular Volume 95.3 fL (80-100); Mean Platelet Volume 9.8 fL (7.4-10.4); Monocytes # (auto) 0.27 K/uL (0.11-0.59); Monocytes % (auto) 11.6 %; Neutrophils # (auto) 1.07 K/uL (1.4-6.5); Platelet Count 115 K/uL (130-400); RDW Coefficient of Variation 14.4 % (11.5-14.5); RDW Standard Deviation 50.6 fL (36.4-46.3); Red Blood Count 4.01 M/uL (4.2-5.4); White Blood Count 2.33 K/uL (4.8-10.8)
[2020-11-29 06:22] LABS: INR 1.5 (0.9-1.1); Prothrombin Time 14.3 Seconds (9.0-12.0)
[2020-11-29 06:38] LABS: Giant Platelets 2+
[2020-11-29 06:50] LABS: BUN Creatinine Ratio 9.1 (10-20); Bilirubin Direct 0.7 mg/dl (0-0.2); Calcium 9.3 mg/dl (8.5-10.1); Est GFR (African American) 126.9 ml/min; Est GFR (Non-African American) 109.5 ml/min; Potassium 3.4 mmol/L (3.5-5.1)
[2020-11-29 06:53] LABS: Bilirubin,Total 1.5 mg/dl (0.2-1); Total Protein 6.8 gm/dl (6.4-8.2)
[2020-11-29] MEDS: INSULIN ASPART 100 UNITS/ML 3 ML PEN SC SCH ×2 (08:41→13:04)
[2020-11-29] MEDS: INSULIN GLARGINE SOLOSTAR 100 UNITS/ML 3 ML PEN SC SCH (08:41)
[2020-11-29] MEDS: FUROSEMIDE 20 MG TAB PO SCH (08:43)
[2020-11-29] MEDS: FLUTICASONE/VILANTEROL 100/25MCG 14 PUFFS/INHALER INH SCH (08:43)
[2020-11-29] MEDS: PANTOprazole 40 MG TAB PO SCH (08:44)
[2020-11-29] MEDS: THIAMINE HCL 500 MG in 0.9 % SODIUM CHLORIDE 100 ML IV SCH ×2 (08:45→13:13)
[2020-11-29] MEDS: FOLIC ACID 1 MG in SYRINGE 9.8 ML IV SCH (08:49)
[2020-11-29] MEDS: SPIRONOLACTONE 25 MG TAB PO SCH (08:50)
[2020-11-29] MEDS: POTASSIUM CHLORIDE 10 MEQ TABCR PO SCH ×2 (08:50→13:07)
--- NOTE | 2020-11-29 11:24 | Pharmacy Report ---
Pharmacy Glycemic Short Note 2 - Date of Service November 29, 2020 - Glycemic Short BSG Results (Last 24 hours): 11/28/20 11/28/20 11/28/20 11:27 16:29 21:00 Glucose POC Glucose 128 H 138 H 124 H 11/29/20 11/29/20 05:44 08:12 Glucose 142 H POC Glucose 120 H OUTPATIENT ANTIDIABETIC REGIMEN: * Novolog 70/30 * 10 units SQ qAM * 5-15 units SQ qPM * HbA1c: 6.5% (11/11/20) ASSESSMENT: 11/29 * BSGs well controlled over last 24 hrs * 14 units SQ insulin given over last 24 hrs, however pt only consumed one meal per crew leader of PO intake * Fasting BSG at goal this AM with 10 units basal on board, FBS 120; no change * Post-prandial BSGs also well controlled yesterday; no change 11/28 * Ms Avelar is a 45yo diabetic woman, admitted for EtOH withdrawal. She is well- known to the pharmacy glycemic management service from past admissions. * BSGs have been well-controlled since admission (155, 124, 118, 128). * We typically do not use 70/30 insulin during admission d/t difficulty in titration, so Lantus/Novolog was initiated, at doses that have been successful for pt in previous hospitalizations. PLAN FOR INPATIENT GLYCEMIC CONTROL: * Basal insulin * Lantus 5 units SQ BID * Bolus insulin * NovoLog per scale ACHS or Q6hrs while NPO * Goal Range: Low 110 mg/dL - High 140 mg/dL * Correction Factor: 35 mg/dL/unit * Nutritional / Prandial insulin per carb ratio of 1 unit per 11 grams CHO consumed PLAN FOR DISCHARGE: * A1c: 6.5% * This indicates adequate glycemic control as an outpt. Expect that pt may resu me prev regimen on discharge, as long as she does not report having episodes of hypoglycemia.
--- NOTE | 2020-11-29 13:45 | Discharge Summary ---
Date of Service November 29, 2020 Admission HPI Per Admitting Provider Marcus Avelar is a 45yo female with history of asthma, DM, EtOH abuse with cirrhosis, prior pancreatitis and alcohol hepatitis presenting with EtOH withdrawal. Patient has longstanding history of EtOH abuse. She has tried rehabilitation in the past as well as AA and outpatient programs. She recently states that she has been trying to cut back on her EtOH intake. She drinks 1 pint of vodka daily as well as wine. She presents today with tremors that started a few hours ago. Symptoms of withdrawal. Last drink was yesterday afternoon 11/27/20 around 15:00. Principal Diagnosis Alcohol withdrawal Discharge Exam Constitutional WD/WN, vitals as above Neck trachea midline, no thyromegaly Respiratory normal respiratory effort, lungs clear to auscultation Cardiovascular RRR, no murmur, no edema Gastrointestinal (Abdomen) normal bowel sounds, soft, nontender, no hepatosplenomegaly Musculoskeletal no cyanosis or clubbing, extremities motor strength 5/5 Skin no rashes, warm and dry Neurologic patellar DTR's 2+ bilat, sensation intact and PERRL, EOMI, accommodation nl, no face palsy, no dysarthria Psychiatric Orientation: alert and oriented x 3 Affect: + anxious affect Lymphatic no cervical or axillary lymphadenopathy Discharge Data Allergies Allergy/AdvReac Type Severity Reaction Status Date / Time theophylline AdvReac Unknown VERTIGO Verified 11/27/20 23:07 Consultations 11/28/20 00:27 ED Decision to Admit Stat Hospital Course (1) Alcoholism: 45yo female with longstanding history of EtOH abuse presenting with EtOH withdrawal. Patient's EtOH fwooy=553. Last drink was 11/27/20 around 15:00. Patient received Librium 50mg in ER patient did not go through any delirium tremens symptoms controlled well with Gabapentin taper and PRN Librium/Ativan today she is eating and drinking well, ambulating independently in the halls she feels well enough to go home will discharge her on Gabapentin 600mg, taper instructions provided sent her a script for Librium 50mg q8 PRN for any intense withdrawal symptoms over the next few days provided her with phone number and website for [facility] Alcohol help line, told her to call when she gets home she says she has tried AA in the past, did not like it, she cannot do inpatient rehab encouraged her to find something because she is only 45, needs to stay sober (2) GERD (gastroesophageal reflux disease): Chronic -Continue Protonix 40mg po daily (3) Cirrhosis: Chronic. Patient with abdominal distention. -INR is always a little high, 1.4-1.6 -Continue Lasix and Spironolactone again, warned her that further drinking will cause further liver decompensation (4) Diabetes: Patient states that her diabetes is steroid induced. She is on 70/30 at home -Glycemic management consultation (5) Asthma: Well controlled -Continue Advair -Albuterol PRN Ppx - SCD Code - Full Dispo -Admit to PCU Total Time Total Time Spent Total Time Spent (In Minutes): 32 Total Time Includes: Examination of the Patient, Discharge Planning and Medication Reconciliation Discharge Plan Discharge Items Patient Disposition: Home - Self-Care Reason For Visit: ETOH WITHDRAWAL Discharge Diagnosis: Alcohol withdrawal Condition on Discharge: Good Goals: stay sober, follow up with [facility] drug and alcohol, encourage you to call them today when you get home Activity: Resume your previous activity Weightbearing: Full weightbearing Non-emergency contact: Primary Care Provider Call non-emergency contact if: you have any medication questions and your sy mptoms worsen Follow-up/Referrals: Kendell Hollins [Primary Care Provider] - 12/01/20 10:30 am (one week APPT AT [facility]) Diet: Carb Consistent or DM2 Fluids: 2000ml (8 cups) Addtl Attending Provider Instructions: Medications: - GABAPENTIN: 600mg tablets, take one tonight (11/29) then take one in morning and night tomorrow (11/30) then take just one in the morning on Friday and Friday (12/01 and 12/02) - LIBRIUM: you can take 1-2 tablets as needed every 8 hours for alcohol withdrawal symptoms (tremors, anxiety, aggitation) Alcohol abuse, cirrhosis some of your lab values are abnormal (low WBC, slightly elevated INR) but this is normal/chronic issue related to cirrhosis please continue to take all of your prescribed medications Please call the [facility] and Alcohol Abuse help line, support services recommend you call them this afternoon, start to get help, outpatient rehab, AA services etc as soon as possible if you continue to drink you will damage liver even further to the point that you will have decompensated cirrhosis which would take away any quality of life you can stay sober, make the call WEBSITE: https://[employer] Management[employer].gov/330/Drug-Alcohol Please call and ask to speak with a D&A Lumber Carrier Operator Pending Studies at Discharge: No Stand-Alone Forms: My [facility], Smoking Cessation Medications and DC Order Prescriptions: New gabapentin 600 mg Tablet 600 mg PO UD 3 Days Qty: 3 RF: 0 chlordiazepoxide HCl 25 mg Capsule 50 mg PO Q8 PRN (Reason: alcohol withdrawal) 5 Days Qty: 14 RF: 0 Continued fluticasone propion-salmeterol [Advair Diskus] 250-50 mcg/dose blister with device 1 inh inhalation QAM RF: 0 albuterol sulfate [Ventolin HFA] 90 mcg/actuation Hfa Aerosol Inhaler 2 puff INHALATION Q6H PRN (Reason: Shortness Of Breath) RF: 0 multivitamin [Daily-Harris] Tablet 1 tab PO QAM Qty: 0 RF: 0 spironolactone 25 mg Tablet 25 mg PO QAM Qty: 30 RF: 1 furosemide 20 mg Tablet 20 mg PO QAM Qty: 30 RF: 1 insulin asp prt-insulin aspart [Novolog Mix 70-30 U-100 Insuln] 100 unit/mL (70-30) solution 0 unit SUBCUT BID RF: 0 omeprazole 20 mg Capsule,Delayed Release(Dr/Ec) 20 mg PO DAILY RF: 0 famotidine 20 mg Tablet 20 mg PO DAILY PRN (Reason: Gi Upset) RF: 0 vitamin B complex-folic acid 50 mcg Tablet 1 tab PO DAILY RF: 0 mirtazapine 7.5 mg tablet 7.5 mg PO HS RF: 0 potassium chloride 10 mEq capsule, extended release 10 meq PO BID Qty: 60 RF: 0 Discharge Orders: Discharge Order (Routine); Ordered 11/29/20 Ordered By: Sidney Dominguez/Other Patient Handouts: Alcoholism: Myths and Facts, Alcoholism Resources Admission Data Admit Date/Time: 11/28/20 00:55 Attending Provider: Sidney Vega Admit Provider: Alexia Cardozo Primary Care Provider: Kendell Hollins Other Providers: Alexia Cardozo Other Interventions: Discharge Summary Assessment (RN) Last Done: 11/29/20 13:52 Coding Level of Care Code D/C Day Management >30 mins Diagnoses Alcoholism F10.20 GERD (gastroesophageal reflux disease) K21.9 Esophagitis presence: without esophagitis Cirrhosis K70.30 Ascites presence: unspecified Hepatic cirrhosis type: alcoholic cirrhosis Diabetes E08.9 Diabetes mellitus complication status: without complication Diabetes mellitus intermediate insulin use: unspecified intermission coordinator insulin use status Diabetes mellitus type: due to underlying condition Asthma J45.909 Asthma complication type: unspecified Asthma persistence: unspecified Asthma severity: unspecified severity
[2020-11-30] MEDS ORDERED: GABAPENTIN 600 MG TAB PO SCH (02:00)
[2020-11-30 10:35] LABS: Amobarbital, Urine Conf NEGATIVE ng/mL (<100); Butalbital, Urine NEGATIVE ng/mL (<100); Pentobarbital, Urine Conf NEGATIVE ng/mL (<100); Phenobarbital, Urine 4492 ng/mL (<100); Secobarbital, Urine Conf NEGATIVE ng/mL (<100)
[2020-12-01] MEDS ORDERED: GABAPENTIN 600 MG TAB PO SCH (14:00)
== END 2020-11-29 14:46 | disposition home or self-care (01) | DRG 897 ==
LOC: ED 22:01 → SUATTDRO 11-28 00:55 → 2S 11-28 00:55 → 3N 11-28 15:59

== ENCOUNTER 2020-12-08 17:31 | Inpatient (IN) ==
[2020-12-08] MEDS ORDERED: MULTI-VITAMIN INFUSION 10 ML, THIAMINE HCL 100 MG, FOLIC ACID 1 MG in SODIUM CHLORIDE 0... IV ONE (18:04)
--- NOTE | 2020-12-08 18:32 | Emergency Department Note ---
Impression & Plan Alcoholic intoxication, Anxiety, Alcohol abuse, Tremor ED Provider Note INFORMANT: Patient ED PROVIDER(S): Elliot Gonzales MD CHIEF COMPLAINT: Alcohol withdrawal PLAN: Disposition: Admitted Condition: Good Outpatient prescription management: none Referral: None MEDICAL DECISION MAKING: Patient presented back to the emergency department complaining of continued alcohol abuse and feeling like she was going in withdrawal. The patient had mild tachycardia noted. She was given a banana bag. She was also given IV Ativan. Her CBC showed a low white blood cell count and platelet count which is consistent with prior. Her blood alcohol level was 350 mg/dL. She did have slight elevation of her LFTs. Chemistry panel was unremarkable as well as test. Twelve-lead ECG shows a sinus tachycardia but no acute ischemia. I had case management meet with the patient. The patient did not want to be sent for inpatient rehab. She initially wanted outpatient rehab. I discussed the patient's severe alcohol abuse and issues with her. She is requesting admission here due to her concerns about withdrawal. Clearly she has significant alcohol issues and this needs addressed and she needs to stop drinking. We had a long discussion about this negatively impacting her health and causing her to be at risk for . I gave my usual and customary discussion regarding this issue. Consultation was made with Dr. Samuel Christensen of the [facility] service. Patient was evaluated in the ER for further management. Triage Nursing notes reviewed and agree them. Vital Signs: reviewed and remarkable for tachycardia Differential diagnosis: Alcohol intoxication, toxicologic, infection, hypoglycemia, electrolyte abnormalities, cardiac sources, intracerebral event, neurologic, trauma, as well as other pathologies. Diagnostics interpreted by me: ECG: Twelve-lead ECG reveals sinus tachycardia 101 bpm. Low voltage QRS. No ST elevation or depression. No PACs or PVCs. Cardiac Monitoring: Cardiac monitoring ordered by me: The patient was placed on continuous cardiac monitoring and observed. It revealed a normal sinus rhythm at 98 beats per minute without ectopy or evidence of dysrhythmia. Imaging studies: Deferred HPI: The patient is a 45 year old female who presents to the Emergency Room with complaints of alcohol withdrawal. This started this afternoon again and is a recurrent problem for her. SHe was in the ER last night for anxiety and alcohol and discharged Drank a pint and a half today, felt like she was going to withdrawal and called EMS. The patient also notes the following associated symptoms, tremors, nausea, palpitations. The patient has taken no medication for relieving factors. Current pain is rated as 0/10. Pt denies LOC, headache, fevers, chills, diaphoresis, visual changes, neck pain, chest pain, breathing difficulties, vomiting, abdominal pain, back pain, melena, hematochezia, urinary symptoms, numbness, weakness, lymphadenopathy, rash, or other complaints. ROS: See above HPI for pertinent positives & negatives. A total of 10 systems reviewed and were otherwise negative. PAST MEDICAL HISTORY:See Below , alcohol abuse PAST SURGICAL HISTORY:See Below, FAMILY HISTORY:See Below SOCIAL HISTORY:See Below, +etoh HOME MEDICATIONS:See Below ALLERGIES:See Below VITALS:See Below PHYSICAL EXAMINATION: GENERAL: Awake, intoxicated appearing, in no distress HENT: Normocephalic, atraumatic. Oropharynx unremarkable. EYES: Normal conjunctiva. Sclera non-icteric. NECK: Inspection normal. Non-tender. Supple. No nuchal rigidity. FROM. No masses. RESPIRATORY: Clear to auscultation. No wheezes. No rales. Normal respiratory effort. CARDIAC: Borderline tachycardic rate. Normal rhythm. No murmurs. No rubs. Extremities warm and well perfused. Pulses equal. No JVD. GI: Soft, non-distended. No tenderness to palpation. No rebound or guarding. No masses. RECTAL: Deferred. MUSCULOSKELETAL: Atraumatic. Chest examination reveals no tenderness. The back is symmetrical on inspection without obvious abnormality. There is no CVA tenderness to palpation. No joint edema. LOWER EXTREMITIES: Calves are equal size bilaterally and non-tender. No edema. No discoloration. NEURO: Intoxicated sensorium. No sensory or motor deficits noted. SKIN: No rash or jaundice noted. Elliot Gonzales MD Past Med/Surg History Medical History Alcohol abuse Anxiety Asthma Diabetes mellitus type 1 Surgical History History of dental surgery History of esophagogastroduodenoscopy (EGD) Family History Father Prediabetes Grandfather (Paternal) Diabetes Mother Hypertension MVP (mitral valve prolapse) Social History Smoking Status: Former smoker Tobacco Type: Cigarettes Age Quit Using Tobacco: 39; packs per day: 1; Years Smoked: 2; Number of Years Since Quit: 4; Second Hand Exposure: No; Do You Dip or Chew Tobacco: No; Tobacco Cessation Education Requested by Patient: No Hx Alcohol Use: Yes Alcohol type: wine and hard liquor Alcohol type Comment: 4 glasses wine daily Hx Substance Use: No Preferred Language: Georgian Communication Ability: Effective Visual Impairment: No Limitations Early Childhood Special Educator Required: No Beliefs That Will Affect Care: None marital status: marital status details: Single parent Current Living Situation: Other Current Living Situation Comment: 17 yo daughter lives with patient current occupational status: unemployed Other Information That Helps Us Care for You: No Feels Safe at Home: Yes Childhood Exposure to Second-Hand Smoke: No Assistive Devices: None Allergies Allergies Allergy/AdvReac Type Severity Reaction Status Date / Time theophylline AdvReac Unknown VERTIGO Verified 12/08/20 21:24 Home Meds Home Medications Medication Instructions Recorded Confirmed fluticasone propion-salmeterol 1 inh INHALATION QAM 02/27/19 12/08/20 [Advair Diskus] albuterol sulfate [Ventolin HFA] 2 puff INHALATION Q6H PRN 07/23/19 12/08/20 famotidine 20 mg PO DAILY PRN 11/10/20 12/08/20 insulin asp prt-insulin aspart 0 unit SUBCUT BID PRN 11/10/20 12/08/20 [Novolog Mix 70-30 U-100 Insuln] omeprazole 20 mg PO DAILY 11/10/20 12/08/20 vitamin B complex-folic acid 1 tab PO DAILY 11/10/20 12/08/20 mirtazapine 7.5 mg PO HS 11/12/20 12/08/20 Previous Rx's Medication Instructions Recorded multivitamin [Daily-Harris] 1 tab PO QAM #0 tab 07/27/19 furosemide 20 mg PO QAM #30 tab 06/08/20 spironolactone 25 mg PO QAM #30 tab 06/08/20 potassium chloride 10 meq PO BID #60 cap 11/13/20 Results & Data (ED) Vital Signs Vital Signs - 24 hr 12/08/20 17:37 12/08/20 17:49 12/08/20 17:58 Temperature 36.8 C Temperature Source Oral Pulse Rate 98 H 108 H 95 H Pulse Rate from SpO2 Sensor 98 H 94 H Pulse Rhythm Regular Pulse Strength Normal Respiratory Rate 18 26 H 20 Respiratory Effort / Characteristics Non-Labored Spontaneous Respiratory Depth Normal Respiratory Pattern Regular Blood Pressure 119/84 119/84 Blood Pressure Mean 95 95 Blood Pressure Position Sitting Pulse Oximetry 96 Oxygen Delivery Method Room Air Room Air Room Air Sepsis Recent Fever Within 48 Hours No Sepsis New/Unexplained Change in Mental Status No Sepsis Action Taken by Nursing No Action Required 12/08/20 18:00 12/08/20 18:01 12/08/20 18:10 Temperature Temperature Source Pulse Rate 97 H 95 H 95 H Pulse Rate from SpO2 Sensor 97 H 95 H 97 H Pulse Rhythm Pulse Strength Respiratory Rate 18 19 19 Respiratory Effort / Characteristics Respiratory Depth Respiratory Pattern Blood Pressure 106/74 Blood Pressure Mean 84 Blood Pressure Position Pulse Oximetry 90 Oxygen Delivery Method Room Air Room Air Room Air Sepsis Recent Fever Within 48 Hours Sepsis New/Unexplained Change in Mental Status Sepsis Action Taken by Nursing 12/08/20 18:20 12/08/20 18:30 12/08/20 18:31 Temperature Temperature Source Pulse Rate 90 101 H 104 H Pulse Rate from SpO2 Sensor 90 101 H 104 H Pulse Rhythm Pulse Strength Respiratory Rate 19 17 17 Respiratory Effort / Characteristics Respiratory Depth Respiratory Pattern Blood Pressure 109/79 Blood Pressure Mean 89 Blood Pressure Position Pulse Oximetry 90 92 Oxygen Delivery Method Room Air Room Air Room Air Sepsis Recent Fever Within 48 Hours Sepsis New/Unexplained Change in Mental Status Sepsis Action Taken by Nursing 12/08/20 18:40 12/08/20 18:50 12/08/20 18:51 Temperature Temperature Source Pulse Rate 94 H 98 H Pulse Rate from SpO2 Sensor 97 H Pulse Rhythm Pulse Strength Respiratory Rate 16 19 Respiratory Effort / Characteristics Respiratory Depth Respiratory Pattern Blood Pressure Blood Pressure Mean Blood Pressure Position Pulse Oximetry 94 Oxygen Delivery Method Room Air Room Air Room Air Sepsis Recent Fever Within 48 Hours Sepsis New/Unexplained Change in Mental Status Sepsis Action Taken by Nursing 12/08/20 19:00 12/08/20 19:01 12/08/20 19:10 Temperature Temperature Source Pulse Rate 93 H 96 H 94 H Pulse Rate from SpO2 Sensor 94 H 96 H 94 H Pulse Rhythm Pulse Strength Respiratory Rate 15 15 18 Respiratory Effort / Characteristics Respiratory Depth Respiratory Pattern Blood Pressure 109/75 Blood Pressure Mean 86 Blood Pressure Position Pulse Oximetry 90 90 90 Oxygen Delivery Method Room Air Room Air Room Air Sepsis Recent Fever Within 48 Hours Sepsis New/Unexplained Change in Mental Status Sepsis Action Taken by Nursing 12/08/20 19:20 12/08/20 19:30 12/08/20 19:31 Temperature Temperature Source Pulse Rate 100 H 92 H 91 H Pulse Rate from SpO2 Sensor 100 H 92 H 92 H Pulse Rhythm Pulse Strength Respiratory Rate 20 17 18 Respiratory Effort / Characteristics Respiratory Depth Respiratory Pattern Blood Pressure 109/80 Blood Pressure Mean 89 Blood Pressure Position Pulse Oximetry 93 90 Oxygen Delivery Method Room Air Room Air Room Air Sepsis Recent Fever Within 48 Hours Sepsis New/Unexplained Change in Mental Status Sepsis Action Taken by Nursing 12/08/20 19:40 12/08/20 19:50 12/08/20 20:00 Temperature Temperature Source Pulse Rate 87 91 H 95 H Pulse Rate from SpO2 Sensor 88 92 H 96 H Pulse Rhythm Pulse Strength Respiratory Rate 27 H 19 19 Respiratory Effort / Characteristics Respiratory Depth Respiratory Pattern Blood Pressure 91/57 L Blood Pressure Mean 68 Blood Pressure Position Pulse Oximetry 93 90 91 Oxygen Delivery Method Room Air Room Air Room Air Sepsis Recent Fever Within 48 Hours Sepsis New/Unexplained Change in Mental Status Sepsis Action Taken by Nursing 12/08/20 20:01 12/08/20 20:10 12/08/20 20:20 Temperature Temperature Source Pulse Rate 96 H 96 H 104 H Pulse Rate from SpO2 Sensor 96 H 96 H 104 H Pulse Rhythm Pulse Strength Respiratory Rate 18 18 17 Respiratory Effort / Characteristics Respiratory Depth Respiratory Pattern Blood Pressure Blood Pressure Mean Blood Pressure Position Pulse Oximetry 90 90 97 Oxygen Delivery Method Room Air Room Air Room Air Sepsis Recent Fever Within 48 Hours Sepsis New/Unexplained Change in Mental Status Sepsis Action Taken by Nursing 12/08/20 20:30 12/08/20 20:40 12/08/20 20:50 Temperature Temperature Source Pulse Rate 111 H 112 H 99 H Pulse Rate from SpO2 Sensor 111 H 100 H Pulse Rhythm Pulse Strength Respiratory Rate 17 17 13 Respiratory Effort / Characteristics Respiratory Depth Respiratory Pattern Blood Pressure 121/80 Blood Pressure Mean 93 Blood Pressure Position Pulse Oximetry 97 97 Oxygen Delivery Method Room Air Room Air Room Air Sepsis Recent Fever Within 48 Hours Sepsis New/Unexplained Change in Mental Status Sepsis Action Taken by Nursing 12/08/20 21:00 12/08/20 21:01 12/08/20 21:10 Temperature Temperature Source Pulse Rate 105 H 105 H 106 H Pulse Rate from SpO2 Sensor 106 H 105 H 105 H Pulse Rhythm Pulse Strength Respiratory Rate 19 21 32 H Respiratory Effort / Characteristics Respiratory Depth Respiratory Pattern Blood Pressure 131/81 Blood Pressure Mean 97 Blood Pressure Position Pulse Oximetry 97 97 98 Oxygen Delivery Method Room Air Room Air Room Air Sepsis Recent Fever Within 48 Hours Sepsis New/Unexplained Change in Mental Status Sepsis Action Taken by Nursing 12/08/20 21:20 12/08/20 21:30 12/08/20 21:31 Temperature Temperature Source Pulse Rate 98 H 98 H 99 H Pulse Rate from SpO2 Sensor 98 H 98 H 100 H Pulse Rhythm Pulse Strength Respiratory Rate 29 H 18 19 Respiratory Effort / Characteristics Respiratory Depth Respiratory Pattern Blood Pressure 111/77 Blood Pressure Mean 88 Blood Pressure Position Pulse Oximetry 97 96 96 Oxygen Delivery Method Room Air Room Air Room Air Sepsis Recent Fever Within 48 Hours Sepsis New/Unexplained Change in Mental Status Sepsis Action Taken by Nursing 12/08/20 21:40 Temperature Temperature Source Pulse Rate 98 H Pulse Rate from SpO2 Sensor 98 H Pulse Rhythm Pulse Strength Respiratory Rate 18 Respiratory Effort / Characteristics Respiratory Depth Respiratory Pattern Blood Pressure Blood Pressure Mean Blood Pressure Position Pulse Oximetry 92 Oxygen Delivery Method Room Air Sepsis Recent Fever Within 48 Hours Sepsis New/Unexplained Change in Mental Status Sepsis Action Taken by Nursing Laboratory Data Result diagrams: 12/08/20 18:39 12/08/20 18:39 Lab Results 12/08/20 12/08/20 12/08/20 Range/Units 18:39 18:39 18:39 WBC 3.31 L (4.8-10.8) K/uL RBC 4.06 L (4.2-5.4) M/uL Hgb 12.8 (12.0-16.0) g/dL Hct 37.6 (37-47) % MCV 92.6 (80-100) fL MCH 31.5 (25-34) pg MCHC 34.0 (32-36) g/dL RDW Std Deviation 47.9 H (36.4-46.3) fL RDW Coeff of Suzanne 14.2 (11.5-14.5) % Plt Count 88 L (130-400) K/uL MPV 9.6 (7.4-10.4) fL Neutrophils % (Manual) 55.7 % Lymphocytes % (Manual) 21.7 % Reactive Lymphs % (Man) 13.0 % Monocytes % (Manual) 2.6 % Eosinophils % (Manual) 0.9 % Basophils % (Manual) 5.2 % Myelocytes % (Man) 0.9 % Neutrophils # (Manual) 1.84 (1.4-6.5) K/uL Total Absolute Neuts 1.84 (1.4-6.5) K/uL Lymphocytes # (Manual) 0.72 L (1.2-3.4) K/uL Reactive Lymphs # 0.43 K/uL Total Abs Lymphocytes 1.15 L (1.2-3.4) K/uL Monocytes # (Manual) 0.09 L (0.11-0.59) K/uL Eosinophils # (Manual) 0.03 (0-0.5) K/uL Basophils # (Manual) 0.17 (0-0.2) K/uL Myelocytes # (Manual) 0.03 H (0-0) K/uL Platelet Estimate Decreased L (Normal) RBC Morphology Unremarkable Sodium 140 (136-145) mmol/L Potassium 3.7 (3.5-5.1) mmol/L Chloride 107 (98-107) mmol/L Carbon Dioxide 23 (21-32) mmol/L Anion Gap 10.0 (3-11) BUN 9 (7-18) mg/dl Creatinine 0.61 (0.6-1.2) mg/dl Est Cr Clr Drug Dosing 107.3 ml/min Est GFR ( Amer) 126.9 ml/min Est GFR (Non-Af Amer) 109.5 ml/min BUN/Creatinine Ratio 14.3 (10-20) Glucose 96 (70-99) mg/dl Calcium 9.6 (8.5-10.1) mg/dl Magnesium 1.9 (1.8-2.4) mg/dl Total Bilirubin 1.7 H (0.2-1) mg/dl AST 193 H (15-37) U/L ALT 43 (12-78) U/L Alkaline Phosphatase 211 H (45-117) U/L Total Protein 8.0 (6.4-8.2) gm/dl Albumin 3.4 (3.4-5.0) gm/dl Globulin 4.6 H (2.5-4.0) gm/dl Albumin/Globulin Ratio 0.7 L (0.9-2) HCG, Qual (Negative) Ethyl Alcohol mg/dL 350.0 H (0-3) mg/dl 12/08/20 Range/Units 18:39 WBC (4.8-10.8) K/uL RBC (4.2-5.4) M/uL Hgb (12.0-16.0) g/dL Hct (37-47) % MCV (80-100) fL MCH (25-34) pg MCHC (32-36) g/dL RDW Std Deviation (36.4-46.3) fL RDW Coeff of Suzanne (11.5-14.5) % Plt Count (130-400) K/uL MPV (7.4-10.4) fL Neutrophils % (Manual) % Lymphocytes % (Manual) % Reactive Lymphs % (Man) % Monocytes % (Manual) % Eosinophils % (Manual) % Basophils % (Manual) % Myelocytes % (Man) % Neutrophils # (Manual) (1.4-6.5) K/uL Total Absolute Neuts (1.4-6.5) K/uL Lymphocytes # (Manual) (1.2-3.4) K/uL Reactive Lymphs # K/uL Total Abs Lymphocytes (1.2-3.4) K/uL Monocytes # (Manual) (0.11-0.59) K/uL Eosinophils # (Manual) (0-0.5) K/uL Basophils # (Manual) (0-0.2) K/uL Myelocytes # (Manual) (0-0) K/uL Platelet Estimate (Normal) RBC Morphology Sodium (136-145) mmol/L Potassium (3.5-5.1) mmol/L Chloride (98-107) mmol/L Carbon Dioxide (21-32) mmol/L Anion Gap (3-11) BUN (7-18) mg/dl Creatinine (0.6-1.2) mg/dl Est Cr Clr Drug Dosing ml/min Est GFR ( Amer) ml/min Est GFR (Non-Af Amer) ml/min BUN/Creatinine Ratio (10-20) Glucose (70-99) mg/dl Calcium (8.5-10.1) mg/dl Magnesium (1.8-2.4) mg/dl Total Bilirubin (0.2-1) mg/dl AST (15-37) U/L ALT (12-78) U/L Alkaline Phosphatase (45-117) U/L Total Protein (6.4-8.2) gm/dl Albumin (3.4-5.0) gm/dl Globulin (2.5-4.0) gm/dl Albumin/Globulin Ratio (0.9-2) HCG, Qual Negative (Negative) Ethyl Alcohol mg/dL (0-3) mg/dl Administered Medications Enoxaparin Sodium (Enoxaparin Inj 40 Mg/0.4 Ml Syr) 40 mg SQ Q24H ARMANI Stop: 01/08/21 00:29 Last Admin: 12/09/20 01:10 Dose: 40 mg Documented by: [id number] Folic Acid (Folic Acid 1 Mg Tab) 1 mg PO QA ARMANI Stop: 01/08/21 00:16 Last Admin: 12/09/20 01:12 Dose: 1 mg Documented by: [id number] Lactated Ringer's (Lr) 1,000 mls @ 150 mls/hr IV .Q6H40M ARMANI Stop: 12/09/20 13:36 Last Admin: 12/09/20 01:13 Dose: 150 mls/hr Documented by: [id number] Ondansetron HCl (Ondansetron Inj 2 Mg/Ml 2 Ml Vial) 4 mg IV Q6H PRN PRN Reason: Nausea Stop: 01/08/21 00:16 Last Admin: 12/09/20 01:17 Dose: 4 mg Documented by: [id number] Thiamine HCl (Thiamine Hcl 100 Mg Tab) [facility] [place] [facility]: 01/08/21 00:16 Last Admin: 12/09/20 01:12 Dose: 100 mg Documented by: [id number] Discontinued Medications Gabapentin (Gabapentin 600 Mg Tab) 1,200 mg PO NOW ONE Stop: 12/09/20 00:18 Last Admin: 12/09/20 01:13 Dose: 1,200 mg Documented by: [id number] Multivitamins 10 ml/ Thiamine HCl 100 mg/ Folic Acid 1 mg/Sodium Chloride 1,011.2 mls @ 1,011.2 mls/hr IV .Q1H ONE Stop: 12/08/20 19:03 Last Infusion: 12/08/20 20:28 Dose: 0 mls/hr Documented by: [id number] Admin: 12/08/20 19:19 Dose: 1,011.2 mls/hr Documented by: [id number] Lorazepam (Ativan) 1 mg in 2 mls @ 2 mls/min IV NOW STA Stop: 12/08/20 20:08 Last Admin: 12/08/20 20:36 Dose: 2 mls/min Documented by: [id number] Sodium Chloride (Nss 1000ml) 1,000 mls @ 125 mls/hr IV .Q8H STA Stop: 12/09/20 04:25 Last Admin: 12/08/20 20:36 Dose: 125 mls/hr Documented by: [id number] Discharge Plan Visit Data Chief Complaint: Alcohol Withdrawal Stated Complaint: ALCOHOL WITHDRAWL ED Provider: Elliot Gonzales Discharge Problem: Alcoholic intoxication, Anxiety, Alcohol abuse, Tremor Patient Disposition: Admitted As Inpatient Discharge Instructions Interventions: ED Discharge Assessment Last Done: 12/08/20 23:57
[2020-12-08 18:52] LABS: Hematocrit (blood only) 37.6 % (37-47); Hemoglobin 12.8 g/dL (12.0-16.0); Mean Corpuscular Hemoglobin 31.5 pg (25-34); Mean Corpuscular Volume 92.6 fL (80-100); RDW Coefficient of Variation 14.2 % (11.5-14.5); RDW Standard Deviation 47.9 fL (36.4-46.3); Red Blood Count 4.06 M/uL (4.2-5.4); White Blood Count 3.31 K/uL (4.8-10.8)
[2020-12-08 19:09] LABS: Albumin Level 3.4 gm/dl (3.4-5.0); BUN Creatinine Ratio 14.3 (10-20); Calcium 9.6 mg/dl (8.5-10.1); Creatinine Clr Calc Pharmacy 107.3 ml/min; Est GFR (African American) 126.9 ml/min; Est GFR (Non-African American) 109.5 ml/min; Magnesium 1.9 mg/dl (1.8-2.4); Potassium 3.7 mmol/L (3.5-5.1)
[2020-12-08 19:11] LABS: Mean Platelet Volume 9.6 fL (7.4-10.4); Platelet Count 88 K/uL (130-400)
[2020-12-08 19:12] LABS: ALC (manual) 1.15 K/uL (1.2-3.4); ANC (manual) 1.84 K/uL (1.4-6.5); Albumin Globulin Ratio 0.7 (0.9-2); Basophils # (manual) 0.17 K/uL (0-0.2); Basophils % (manual) 5.2 %; Bilirubin,Total 1.7 mg/dl (0.2-1); Eosinophils # (manual) 0.03 K/uL (0-0.5); Eosinophils % (manual) 0.9 %; Globulin 4.6 gm/dl (2.5-4.0); Lymphocytes # (manual) 0.72 K/uL (1.2-3.4); Lymphocytes % (manual) 21.7 %; Monocytes # (manual) 0.09 K/uL (0.11-0.59); Monocytes % (manual) 2.6 %; Myelocytes # (manual) 0.03 K/uL (0-0); Myelocytes % (manual) 0.9 %; Neutrophils # (manual) 1.84 K/uL (1.4-6.5); Neutrophils % (manual) 55.7 %; Platelet Estimate Decreased (Normal); RBC Morphology Unremarkable; Reactive Lymphocytes # (manual) 0.43 K/uL
[2020-12-08 19:16] LABS: Pregnancy Test, Serum Negative (Negative)
[2020-12-08] MEDS ORDERED: LORazepam 1 MG/2 ML VIAL IV STA (20:07)
[2020-12-08] MEDS ORDERED: SODIUM CHLORIDE 0.9% 1000ML 1,000 ML IV STA (20:26)
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
[2020-12-09] MEDS ORDERED: FAMOTIDINE 20 MG TAB PO PRN (00:17)
[2020-12-09] MEDS ORDERED: GABAPENTIN 1200MG ALCOHOL WITHDRAWAL LOAD PO STA (00:17)
[2020-12-09] MEDS ORDERED: GABAPENTIN 600 MG TAB PO ONE (00:17)
[2020-12-09] MEDS ORDERED: LORazepam 1 MG/2 ML VIAL IV PRN (00:17)
[2020-12-09] MEDS ORDERED: ALBUTEROL HFA 8 GM INHALER INH PRN (00:17)
[2020-12-09] MEDS ORDERED: CARBOHYDRATES FOR HYPOGLYCEMIA PO PRN (01:01)
[2020-12-09] MEDS ORDERED: GLUCOSE 40% GEL 15 GM TUBE PO PRN (01:01)
[2020-12-09] MEDS ORDERED: DEXTROSE 50% 50 ML SYRINGE IV PRN (01:01)
[2020-12-09] MEDS ORDERED: GLUCOSE 10 TABS/TUBE PO PRN (01:01)
[2020-12-09] MEDS ORDERED: GLUCAGON FOR INJ 1 MG VIAL SQ PRN (01:01)
[2020-12-09] MEDS: ENOXAPARIN INJ 40 MG/0.4 ML SYR SQ SCH (01:10)
[2020-12-09] MEDS: THIAMINE HCL 100 MG TAB PO SCH ×2 (01:12→08:24)
[2020-12-09] MEDS: FOLIC ACID 1 MG TAB PO SCH ×2 (01:12→08:24)
[2020-12-09] MEDS: LACTATED RINGER'S 1,000 ML IV SCH ×2 (01:13→07:47)
[2020-12-09] MEDS: ONDANSETRON INJ 2 MG/ML 2 ML VIAL IV PRN ×2 (01:17→14:15)
[2020-12-09 02:05] LABS: Folate (Folic Acid) > 20.00 ng/ml (>5.38); Vitamin B12 1090 pg/ml (193-986)
[2020-12-09] MEDS: GABAPENTIN 600 MG TAB PO SCH ×3 (06:13→21:20)
[2020-12-09 06:45] LABS: Appearance Urine Clear (Clear); Bilirubin Urine Negative (Negative); Blood Urine Negative (Negative); Color Urine Yellow; Glucose Urine UA Negative (Negative); Ketones Urine 1+ (Negative); Leukocyte Esterase Urine Negative (Negative); Nitrite Urine Negative (Negative); Protein Urine Negative (Negative); Specific Gravity Urine 1.015 (1.000-1.030); Urobilinogen Urine Negative (Negative); pH Urine 6.5 (4.5-7.5)
[2020-12-09 07:42] LABS: Hematocrit (blood only) 35.5 % (37-47); Hemoglobin 11.8 g/dL (12.0-16.0); Mean Corpuscular Hemoglobin 30.8 pg (25-34); Mean Corpuscular Hgb Conc 33.2 g/dL (32-36); Mean Corpuscular Volume 92.7 fL (80-100); RDW Coefficient of Variation 14.1 % (11.5-14.5); RDW Standard Deviation 47.8 fL (36.4-46.3); Red Blood Count 3.83 M/uL (4.2-5.4); White Blood Count 2.22 K/uL (4.8-10.8)
[2020-12-09 07:45] LABS: Estimated Average Glucose 151 mg/dl; Hemoglobin A1C 6.9 % (4.5-5.6)
[2020-12-09] MEDS: INSULIN ASPART 100 UNITS/ML 3 ML PEN SC SCH ×3 (07:48→17:22)
[2020-12-09 07:53] LABS: INR 1.5 (0.9-1.1); Prothrombin Time 14.4 Seconds (9.0-12.0)
[2020-12-09 08:05] LABS: Basophils # (auto) 0.04 K/uL (0-0.2); Basophils % (auto) 1.8 %; Eosinophils # (auto) 0.04 K/uL (0-0.5); Eosinophils % (auto) 1.8 %; Lymphocytes # (auto) 0.89 K/uL (1.2-3.4); Lymphocytes % (auto) 40.1 %; Mean Platelet Volume 9.4 fL (7.4-10.4); Monocytes # (auto) 0.19 K/uL (0.11-0.59); Monocytes % (auto) 8.6 %; Neutrophils # (auto) 1.06 K/uL (1.4-6.5); Neutrophils % (auto) 47.7 %; Platelet Count 75 K/uL (130-400)
[2020-12-09 08:21] LABS: Albumin Level 3.2 gm/dl (3.4-5.0); BUN Creatinine Ratio 16.3 (10-20); Calcium 9.4 mg/dl (8.5-10.1); Creatinine Clr Calc Pharmacy 141.9 ml/min; Est GFR (African American) 140.3 ml/min; Potassium 3.7 mmol/L (3.5-5.1)
[2020-12-09 08:24] LABS: Albumin Globulin Ratio 0.9 (0.9-2); Bilirubin,Total 1.6 mg/dl (0.2-1); Globulin 3.7 gm/dl (2.5-4.0); Total Protein 6.9 gm/dl (6.4-8.2)
[2020-12-09] MEDS: PANTOprazole 40 MG TAB PO SCH (08:24)
[2020-12-09] MEDS: MULTIVITAMIN TAB PO SCH (08:24)
[2020-12-09] MEDS: SPIRONOLACTONE 25 MG TAB PO SCH (08:24)
[2020-12-09] MEDS: FLUTICASONE/VILANTEROL 200/25MCG 14 PUFFS/INHALER INH SCH (08:25)
[2020-12-09] MEDS ORDERED: FUROSEMIDE 20 MG TAB PO SCH (09:00)
[2020-12-09] MEDS ORDERED: LORazepam 1 MG/2 ML VIAL IV STA (09:04)
--- NOTE | 2020-12-09 10:59 | Electrocardiogram Report ---
Test Reason : Blood Pressure : / mmHG Vent. Rate : 101 BPM Atrial Rate : 101 BPM P-R Int : 150 ms QRS Dur : 076 ms QT Int : 346 ms P-R-T Axes : 045 014 010 degrees QTc Int : 448 ms Sinus tachycardia Low voltage QRS Borderline ECG When compared with ECG of 03-DEC-2020 22:46, No significant change was found Confirmed by Arnold Schaefer ([id number]) on 12/09/2020 10:59:09 AM Referred By: REFERRED SELF Confirmed By:Faisal Schaefer
--- NOTE | 2020-12-09 16:47 | Psychiatric Consultation ---
Date of Consultation December 09, 2020 Impression / Recommendations Impression Assessment: 45-year-old woman with history of alcohol abuse who presents following a episode of intoxication currently in withdrawal. Patient is experiencing anxiety, which is to be expected during the alcohol withdrawal time, but also endorses history of underlying anxiety that prompts her drinking. This time point patient is willing to increase her antidepressant medication as an attempt to target her un derlying anxiety while still undergoing the alcohol withdrawal protocol. Plan: Increase patient's Mirtazapine to 15 mg p.o. nightly Patient is not suicidal at this time, no one-to-one needed Patient will not require inpatient psychiatric hospitalization following her medical hospitalization. We will provide patient with resources for rehab and outpatient substance abuse care. Inventory Assets Strengths: Intelligence Needs: Sobriety Risk Factors Assessment Male: No : Yes Substance Use Disorders: Yes Previous Attempt: No Previous Attempt; Highly Lethal: No Previous Attempt; Planned: No Previous Attempt; Didn't Tell Anyone: No Hopelessness: No Smoker: No Protective Factors Assessment Uatsdin Beliefs: No Psych History Chief Complaint "Anxiety". History of Present Illness As per psychiatric liaison "Patient was last seen by our service in Oct, 2020, less than 30 days ago. She denies feeling depressed, suicidal or any thoughts of self injurious behaviors. She states she still has the name of providers given to her, but states she has not reached out to anyone for services. Reported she was on steroids for 6 weeks in August and September and has had a difficult time since then. Patient has been prescribed Remeron 7.5 mg for sleep which she states has been effective. She denies seeing a psychiatrist in the past, but did see a therapist. Patient could not remember the therapists name and is not interested in reconnecting with her. States she had trialed medications in the past, "several", but cannot recall the names. States she had several bad side effects and could not continue on them. Patient scored a 5 on the PHQ9, but was a 3 a month ago. States she does suffer from anxiety and has been having panic attacks for 4 years ago. Denies any traumatic events or abuse, but states her bankruptcy 6 years ago was a major stressor for her. Patient previously worked at [employer] for 11 years, but does not want to discuss her work history. She has been living on her halfway. Has a 17 year old daughter and a supportive brother. States her family lives in [place] and she enjoys swimming, hiking, camping and canoeing, when she is able to do it. " Patient endorses the above information is accurate upon evaluation today. She does complain of underlying anxiety, and is agreeable to increase of her Remeron medication to try addressing this. Past Psychiatric History Previous Psych History: Patient had previously seen a therapist some period of time. Reports that the therapy was unsuccessful. Has never seen a psychiatrist in the past. Past Medication Trials: Paroxetine, stopped July 2019, Neurontin, Ativan, Vistaril, Paxil Allergies Allergy/AdvReac Type Severity Reaction Status Date / Time theophylline AdvReac Unknown VERTIGO Verified 12/08/20 21:24 Home Medications Medication Instructions Recorded Confirmed Type fluticasone propion-salmeterol 1 inh INHALATION QAM 02/27/19 12/08/20 History [Advair Diskus] albuterol sulfate [Ventolin HFA] 2 puff INHALATION Q6H PRN 07/23/19 12/08/20 History multivitamin [Daily-Harris] 1 tab PO QAM #0 tab 07/27/19 12/08/20 Rx furosemide 20 mg PO QAM #30 tab 06/08/20 12/08/20 Rx spironolactone 25 mg PO QAM #30 tab 06/08/20 12/08/20 Rx famotidine 20 mg PO DAILY PRN 11/10/20 12/08/20 History insulin asp prt-insulin aspart 0 unit SUBCUT BID PRN 11/10/20 12/08/20 History [Novolog Mix 70-30 U-100 Insuln] omeprazole 20 mg PO DAILY 11/10/20 12/08/20 History vitamin B complex-folic acid 1 tab PO DAILY 11/10/20 12/08/20 History mirtazapine 7.5 mg PO HS 11/12/20 12/08/20 History potassium chloride 10 meq PO BID #60 cap 11/13/20 12/08/20 Rx Personal History Living Arrangements: Home Beliefs That Will Affect Care: None Patient History Medical History Alcohol abuse Anxiety Asthma Diabetes mellitus type 1 Surgical History History of dental surgery History of esophagogastroduodenoscopy (EGD) Family History Father Prediabetes Grandfather (Paternal) Diabetes Mother Hypertension MVP (mitral valve prolapse) Social History Smoking Status: Former smoker Tobacco Type: Cigarettes Age Quit Using Tobacco: 39; packs per day: 1; Years Smoked: 2; Number of Years Since Quit: 4; Second Hand Exposure: No; Do You Dip or Chew Tobacco: No; Tobacco Cessation Education Requested by Patient: No Hx Alcohol Use: Yes Alcohol type: wine and hard liquor Alcohol type Comment: 4 glasses wine daily Hx Substance Use: No Preferred Language: Urdu Communication Ability: Effective Visual Impairment: No Limitations Fountain Operator Required: No Beliefs That Will Affect Care: None marital status: marital status details: Single parent Current Living Situation: Other Current Living Situation Comment: 17 yo daughter lives with patient current occupational status: unemployed Other Information That Helps Us Care for You: No Feels Safe at Home: Yes Childhood Exposure to Second-Hand Smoke: No Assistive Devices: None Physical Exam Psychiatric: Orientation: alert Apperance: appropriately groomed Eye Contact: + fair eye contact Motor Behavior: + tremor Speech: normal rate/rhythm/volume of speech Affect: + anxious affect Mood: + anxious mood Thought Process: linear/logical thought process Thought Content: reality based without delusions Suicidal Thoughts: denies suicidal thoughts Homicidal Thoughts: denies homicidal thoughts Hallucinations: no auditory hallucinations Cognition: recent memory grossly intact Estimated Intelligence: average estimated intelligence Insight: + fair insight Judgement: + fair judgement Vital Signs (Past 24 Hours): Last Vital Signs Temp 36.8 C 12/09/20 15:17 Pulse 98 H 12/09/20 15:17 Resp 18 12/09/20 15:17 BP 116/76 12/09/20 15:17 Pulse Ox 96 12/09/20 15:17 Review of Systems All systems reviewed & are unremarkable except as noted in HPI & below Results & Data ([facility]) Medications Administered Enoxaparin Sodium (Enoxaparin Inj 40 Mg/0.4 Ml Syr) 40 mg SQ Q24H ARMANI Stop: 01/08/21 00:29 Last Admin: 12/09/20 01:10 Dose: 40 mg Documented by: [id number] Famotidine (Famotidine 20 Mg Tab) 20 mg PO DAILY PRN PRN Reason: Gi Upset Stop: 01/08/21 00:16 Last Admin: 12/09/20 08:25 Dose: 20 mg Documented by: [id number] Fluticasone/Vilanterol (Fluticasone/Vilanterol 200/25mcg 14 Puffs/Inhaler) 1 puffs INH DAILY [facility] Stop: 01/08/21 08:59 Last Admin: 12/09/20 08:25 Dose: 1 puffs Documented by: [id number] Folic Acid (Folic Acid 1 Mg Tab) 1 mg PO QAM [facility] Stop: 01/08/21 00:16 Last Admin: 12/09/20 08:24 Dose: 1 mg Documented by: [id number] Admin: 12/09/20 01:12 Dose: 1 mg Documented by: [id number] Lactated Ringer's (Lr) 1,000 mls @ 75 mls/hr IV .[id number] [facility] Stop: 12/09/20 18:09 Last Infusion: 12/09/20 14:16 Dose: 0 mls/hr Documented by: [id number] Admin: 12/09/20 07:47 Dose: 150 mls/hr Documented by: [id number] Infusion: 12/09/20 07:47 Dose: 150 mls/hr Documented by: [id number] Admin: 12/09/20 01:13 Dose: 150 mls/hr Documented by: [id number] Insulin Aspart (Insulin Aspart 100 Units/Ml 3 Ml Pen) 0 units SC ACHS [facility] Stop: 01/08/21 07:29 Last Admin: 12/09/20 13:11 Dose: Not Given Documented by: [id number] Admin: 12/09/20 07:48 Dose: Not Given Documented by: [id number] Multivitamins (Multivitamin Tab) 1 tab PO QAM [facility] Stop: 01/08/21 08:59 Last Admin: 12/09/20 08:24 Dose: 1 tab Documented by: [id number] Ondansetron HCl (Ondansetron Inj 2 Mg/Ml 2 Ml Vial) 4 mg IV Q6H PRN PRN Reason: Nausea Stop: 01/08/21 00:16 Last Admin: 12/09/20 14:15 Dose: 4 mg Documented by: [id number] Admin: 12/09/20 01:17 Dose: 4 mg Documented by: [id number] Pantoprazole Sodium (Pantoprazole 40 Mg Tab) 40 mg PO DAILY [facility] Stop: 01/08/21 08:59 Last Admin: 12/09/20 08:24 Dose: 40 mg Documented by: [id number] Spironolactone (Spironolactone 25 Mg Tab) 25 mg PO [facility] Stop: 01/08/21 08:59 Last Admin: 12/09/20 08:24 Dose: 25 mg Documented by: [id number] Thiamine HCl (Thiamine Hcl 100 Mg Tab) 100 mg PO [facility] Stop: 01/08/21 00:16 Last Admin: 12/09/20 08:24 Dose: 100 mg Documented by: [id number] Admin: 12/09/20 01:12 Dose: 100 mg Documented by: [id number] Coding Level of Care Code 35098 Office/OBS Consult Lvl 3
[2020-12-09] MEDS ORDERED: chlordiazePOXIDE HCl 25 MG CAP PO ONE (17:18)
--- NOTE | 2020-12-09 19:07 | Critical Care Progress Note ---
Date of Service December 09, 2020 Assessment & Plan (1) Alcohol withdrawal: -Alcohol level 350 on admission -Last drink was 4:30PM on 12/08/20 -In ED received 1mg Ativan in addition to Banana Bag -Will start on AWSS with gabapentin and PRN Ativan -Daily Thiamine and Folic Acid -Zofran PRN Nausea -Psychiatry Consulted -Discussed with patient about rehab to which she is hesitant at this time, but understands there is a need-Alcohol level 350 on admission - Continue AAWS withdraw - she is on the Gabapentin protocol, which worked well for her in the past - She remains tremulous and nausea improved from this morning-- Scheduled librium 25 mg PO q6 hours - She denies hallucinations (2) Alcohol abuse: Diabetes Mellitus -Patient notes history of DM1, though was not diagnosed until the past few years -Will use SSI while inpatient and monitor closely -HgbA1c in AM GERD -Continue home Omeprazole and Famotidine (3) Tremor: As above- ETOH abuse (4) Cirrhosis: Liver Cirrhosis -Continue home Lasix and Spironolactone -MELD Score 13 on previous admission with 6% estimated 3 month mortality -Will order PT/INR in AM, though suspect similar MELD at this admission -Transaminitis, suspect secondary to current continued alcohol use - Discriminatory function 12.6 - Continue to follow her LFTs and synthetic function. Stable overnight Admission and Anticipated Discharge Date Admission Date: December 08, 2020 Results & Data Results & Data ([facility]) Vital Signs (Past 12 Hours) Vital Signs Temp Pulse Pulse Resp BP Pulse Ox Pulse Ox 12/09/20 15:17 36.8 C 98 H 18 116/76 96 12/09/20 11:58 36.7 C 99 H 20 120/72 93 12/09/20 08:20 36.7 C 92 H 19 103/67 95 12/09/20 08:00 97 H 96 PG Care Time/CCT Total # of Minutes Spent Total Time Spent with Patient: Total time spent is greater than 50% in coordination of care (as documented) at patient's floor/unit and/or counseling patient: Coding Diagnoses Alcohol withdrawal F10.230 Complication of substance-induced condition: uncomplicated Alcohol abuse F10.10 Tremor R25.1 Cirrhosis K70.30 Ascites presence: unspecified Hepatic cirrhosis type: alcoholic cirrhosis (1) Alcohol withdrawal Complication of substance-induced condition: uncomplicated Qualified Code(s): F10.230 - Alcohol dependence with withdrawal, uncomplicated (2) Cirrhosis Ascites presence: unspecified Hepatic cirrhosis type: alcoholic cirrhosis Qualified Code(s): K70.30 - Alcoholic cirrhosis of liver without ascites
--- NOTE | 2020-12-09 19:21 | Hospitalist Consultation ---
Date of Consultation December 09, 2020 Assessment & Plan (1) Alcohol withdrawal: -Alcohol level 350 on admission -Last drink was 4:30PM on 12/08/20 -In ED received 1mg Ativan in addition to Banana Bag -Will start on AWSS with gabapentin and PRN Ativan -Daily Thiamine and Folic Acid -Zofran PRN Nausea -Psychiatry Consulted -Discussed with patient about rehab to which she is hesitant at this time, but understands there is a need-Alcohol level 350 on admission - Continue AAWS withdraw - she is on the Gabapentin protocol, which worked well for her in the past - She remains tremulous and nausea improved from this morning-- Scheduled librium 25 mg PO q6 hours - She denies hallucinations (2) Alcohol abuse: As above, patient states she is interested in sobriety and help. She reports she has information, but needs to see what will be covered with her insurance (3) Tremor: As above- ETOH abuse (4) Cirrhosis: Liver Cirrhosis -Continue home Lasix and Spironolactone -MELD Score 13 on previous admission with 6% estimated 3 month mortality -Will order PT/INR in AM, though suspect similar MELD at this admission -Transaminitis, suspect secondary to current continued alcohol use - Discriminatory function 12.6 - Continue to follow her LFTs and synthetic function. Stable overnight (5) Leukocytopenia, unspecified: Secondary cause from likely related to her ETOH abuse and cirrhosis suppressing her marrow function. - Follow clinical response (6) Thrombocytopenia: As above (7) Anemia: As above History of Present Illness Attending Physician: Michelle Gillespie MD Allergies Allergy/AdvReac Type Severity Reaction Status Date / Time theophylline AdvReac Unknown VERTIGO Verified 12/08/20 21:24 Home Medications Medication Instructions Recorded Confirmed Type fluticasone propion-salmeterol 1 inh INHALATION QAM 02/27/19 12/08/20 History [Advair Diskus] albuterol sulfate [Ventolin HFA] 2 puff INHALATION Q6H PRN 07/23/19 12/08/20 History multivitamin [Daily-Harris] 1 tab PO QAM #0 tab 07/27/19 12/08/20 Rx furosemide 20 mg PO QAM #30 tab 06/08/20 12/08/20 Rx spironolactone 25 mg PO QAM #30 tab 06/08/20 12/08/20 Rx famotidine 20 mg PO DAILY PRN 11/10/20 12/08/20 History insulin asp prt-insulin aspart 0 unit SUBCUT BID PRN 11/10/20 12/08/20 History [Novolog Mix 70-30 U-100 Insuln] omeprazole 20 mg PO DAILY 11/10/20 12/08/20 History vitamin B complex-folic acid 1 tab PO DAILY 11/10/20 12/08/20 History mirtazapine 7.5 mg PO HS 11/12/20 12/08/20 History potassium chloride 10 meq PO BID #60 cap 11/13/20 12/08/20 Rx Patient History Medical History Alcohol abuse Anxiety Asthma Diabetes mellitus type 1 Surgical History History of dental surgery History of esophagogastroduodenoscopy (EGD) Family History Father Prediabetes Grandfather (Paternal) Diabetes Mother Hypertension MVP (mitral valve prolapse) Social History Smoking Status: Former smoker Tobacco Type: Cigarettes Age Quit Using Tobacco: 39; packs per day: 1; Years Smoked: 2; Number of Years Since Quit: 4; Second Hand Exposure: No; Do You Dip or Chew Tobacco: No; Tobacco Cessation Education Requested by Patient: No Hx Alcohol Use: Yes Alcohol type: wine and hard liquor Alcohol type Comment: 4 glasses wine daily Hx Substance Use: No Preferred Language: French Communication Ability: Effective Visual Impairment: No Limitations Toe Pounder Required: No Beliefs That Will Affect Care: None marital status: marital status details: Single parent Current Living Situation: Other Current Living Situation Comment: 17 yo daughter lives with patient current occupational status: unemployed Other Information That Helps Us Care for You: No Feels Safe at Home: Yes Childhood Exposure to Second-Hand Smoke: No Assistive Devices: Walker Review of Systems Review of Systems: REVIEW OF SYSTEMS: Constitutional: No fever, sweats or chills Eyes: No diplopia, no worsening or blurred vision ENT: normal hearing, no trouble swallowing Respiratory: No cough, sputum, dyspnea at rest or on exertion Cardiovascular: No chest pain, tightness or palpitations Abdomen: (+) nausea, No pain, vomiting, diarrhea or constipation Musculoskeletal: (+) shakiness with legs, No joint pain, calf pain, swelling Neurologic: No weakness, numbness/tingling, or balance problems Psychiatric: (+) anxiety Skin: No rash or itch Physical Exam Constitutional: cooperative; no acute distress and not ill appearing Eyes: PERRL, conjunctivae normal, anicteric sclerae + anicteric sclerae ENMT: external ear and nose normal, oropharynx normal Respiratory: normal respiratory effort, lungs clear to auscultation Cardiovascular: RRR, no murmur, no edema Rate/Rhythm: regular rhythm Heart Sounds: normal S1 and normal S2 Gastrointestinal (Abdomen): Inspection/Auscultation: abdomen normal to inspection and normal bowel sounds Percussion/Palpation: abdomen soft, + hepatomegaly and + tympanic to percussion; abdomen nontender, no ascites, no fluid wave and abdomen not firm Musculoskeletal: no cyanosis or clubbing, extremities motor strength 5/5 Gait: normal gait She is using a walker to help keep her steady, through her Detoxification period Skin: no rashes, warm and dry Neurologic: normal touch/pain/proprioception, moves all extremities and awake Speech / Cognition: normal speech Results & Data Results & Data ([facility]) Vital Signs (Past 12 Hours) Vital Signs Temp Pulse Pulse Resp BP Pulse Ox Pulse Ox 12/09/20 15:17 36.8 C 98 H 18 116/76 96 12/09/20 11:58 36.7 C 99 H 20 120/72 93 12/09/20 08:20 36.7 C 92 H 19 103/67 95 12/09/20 08:00 97 H 96 Laboratory Results Abnormal lab results 12/09/20 12/09/20 12/09/20 Range/Units 00:22 06:15 07:15 WBC 2.22 L (4.8-10.8) K/uL RBC 3.83 L (4.2-5.4) M/uL Hgb 11.8 L (12.0-16.0) g/dL Hct 35.5 L (37-47) % RDW Std Deviation 47.8 H (36.4-46.3) fL Plt Count 75 L (130-400) K/uL Neut # (Auto) 1.06 L (1.4-6.5) K/uL Lymph # (Auto) 0.89 L (1.2-3.4) K/uL PT (9.0-12.0) Seconds INR (0.9-1.1) Chloride (98-107) mmol/L Carbon Dioxide (21-32) mmol/L Anion Gap (3-11) Creatinine (0.6-1.2) mg/dl Hemoglobin A1c (4.5-5.6) % Total Bilirubin (0.2-1) mg/dl AST (15-37) U/L Alkaline Phosphatase (45-117) U/L Albumin (3.4-5.0) gm/dl Vitamin B12 1090 H (193-986) pg/ml Urine Ketones 1+ H (Negative) 12/09/20 12/09/20 12/09/20 Range/Units 07:15 07:15 07:15 WBC (4.8-10.8) K/uL RBC (4.2-5.4) M/uL Hgb (12.0-16.0) g/dL Hct (37-47) % RDW Std Deviation (36.4-46.3) fL Plt Count (130-400) K/uL Neut # (Auto) (1.4-6.5) K/uL Lymph # (Auto) (1.2-3.4) K/uL PT 14.4 H (9.0-12.0) Seconds INR 1.5 H (0.9-1.1) Chloride 108 H (98-107) mmol/L Carbon Dioxide 20 L (21-32) mmol/L Anion Gap 12.0 H (3-11) Creatinine 0.45 L (0.6-1.2) mg/dl Hemoglobin A1c 6.9 H (4.5-5.6) % Total Bilirubin 1.6 H (0.2-1) mg/dl AST 194 H (15-37) U/L Alkaline Phosphatase 191 H (45-117) U/L Albumin 3.2 L (3.4-5.0) gm/dl Vitamin B12 (193-986) pg/ml Urine Ketones (Negative) Medications Administered Enoxaparin Sodium (Enoxaparin Inj 40 Mg/0.4 Ml Syr) 40 mg SQ Q24H [facility] Stop: 01/08/21 00:29 Last Admin: 12/09/20 01:10 Dose: 40 mg Documented by: [id number] Famotidine (Famotidine 20 Mg Tab) 20 mg PO DAILY PRN PRN Reason: Gi Upset Stop: 01/08/21 00:16 Last Admin: 12/09/20 08:25 Dose: 20 mg Documented by: [id number] Fluticasone/Vilanterol (Fluticasone/Vilanterol 200/25mcg 14 Puffs/Inhaler) 1 puffs INH DAILY [facility] Stop: 01/08/21 08:59 Last Admin: 12/09/20 08:25 Dose: 1 puffs Documented by: [id number] Folic Acid (Folic Acid 1 Mg Tab) 1 mg PO QAM [facility] Stop: 01/08/21 00:16 Last Admin: 12/09/20 08:24 Dose: 1 mg Documented by: [id number] Admin: 12/09/20 01:12 Dose: 1 mg Documented by: [id number] Insulin Aspart (Insulin Aspart 100 Units/Ml 3 Ml Pen) 0 units SC ACHS [facility] Stop: 01/08/21 07:29 Last Admin: 12/09/20 17:22 Dose: Not Given Documented by: [id number] Admin: 12/09/20 13:11 Dose: Not Given Documented by: [id number] Admin: 12/09/20 07:48 Dose: Not Given Documented by: [id number] Multivitamins (Multivitamin Tab) 1 tab PO QAM [facility] Stop: 01/08/21 08:59 Last Admin: 12/09/20 08:24 Dose: 1 tab Documented by: [id number] Ondansetron HCl (Ondansetron Inj 2 Mg/Ml 2 Ml Vial) 4 mg IV Q6H PRN PRN Reason: Nausea Stop: 01/08/21 00:16 Last Admin: 12/09/20 14:15 Dose: 4 mg Documented by: [id number] Admin: 12/09/20 01:17 Dose: 4 mg Documented by: [id number] Pantoprazole Sodium (Pantoprazole 40 Mg Tab) 40 mg PO DAILY [facility] Stop: 01/08/21 08:59 Last Admin: 12/09/20 08:24 Dose: 40 mg Documented by: [id number] Spironolactone (Spironolactone 25 Mg Tab) 25 mg PO [facility] Stop: 01/08/21 08:59 Last Admin: 12/09/20 08:24 Dose: 25 mg Documented by: [id number] Thiamine HCl (Thiamine Hcl 100 Mg Tab) 100 mg PO [facility] Stop: 01/08/21 00:16 Last Admin: 12/09/20 08:24 Dose: 100 mg Documented by: [id number] Admin: 12/09/20 01:12 Dose: 100 mg Documented by: [id number] Discontinued Medications Chlordiazepoxide HCl (Chlordiazepoxide Hcl 25 Mg Cap) 25 mg PO NOW ONE Stop: 12/09/20 17:19 Last Admin: 12/09/20 18:06 Dose: 25 mg Documented by: [id number] Furosemide (Furosemide 20 Mg Tab) 20 mg PO [facility] Stop: 01/08/21 08:59 Last Admin: 12/09/20 08:24 Dose: 20 mg Documented by: [id number] Gabapentin (Gabapentin 600 Mg Tab) 1,200 mg PO NOW ONE Stop: 12/09/20 00:18 Last Admin: 12/09/20 01:13 Dose: 1,200 mg Documented by: [id number] Gabapentin (Gabapentin 600 Mg Tab) 600 mg PO Q6H [facility] Stop: 12/09/20 12:01 Last Admin: 12/09/20 12:06 Dose: 600 mg Documented by: [id number] Admin: 12/09/20 06:13 Dose: 600 mg Documented by: [id number] Multivitamins 10 ml/ Thiamine HCl 100 mg/ Folic Acid 1 mg/Sodium Chloride 1,011.2 mls @ 1,011.2 mls/hr IV .Q1H ONE Stop: 12/08/20 19:03 Last Infusion: 12/08/20 20:28 Dose: 0 mls/hr Documented by: [id number] Admin: 12/08/20 19:19 Dose: 1,011.2 mls/hr Documented by: [id number] Lorazepam (Ativan) 1 mg in 2 mls @ 2 mls/min IV NOW STA Stop: 12/08/20 20:08 Last Admin: 12/08/20 20:36 Dose: 2 mls/min Documented by: [id number] Sodium Chloride (Nss 1000ml) 1,000 mls @ 125 mls/hr IV .Q8H [facility] Stop: 12/09/20 04:25 Last Infusion: 12/09/20 09:02 Dose: 0 mls/hr Documented by: [id number] Admin: 12/08/20 20:36 Dose: 125 mls/hr Documented by: [id number] Lactated Ringer's (Lr) 1,000 mls @ 75 mls/hr IV .[id number] [facility] Stop: 12/09/20 18:09 Last Infusion: 12/09/20 14:16 Dose: 0 mls/hr Documented by: [id number] Admin: 12/09/20 07:47 Dose: 150 mls/hr Documented by: [id number] Infusion: 12/09/20 07:47 Dose: 150 mls/hr Documented by: [id number] Admin: 12/09/20 01:13 Dose: 150 mls/hr Documented by: [id number] Lorazepam (Ativan) 1 mg in 2 mls @ 2 mls/min IV NOW STA Stop: 12/09/20 09:05 Last Admin: 12/09/20 09:29 Dose: 2 mls/min Documented by: [id number] PG Care Time/CCT Total # of Minutes Spent Total Time Spent with Patient: Total time spent is greater than 50% in coordination of care (as documented) at patient's floor/unit and/or counseling patient: Coding Diagnoses Alcohol withdrawal F10.230 Complication of substance-induced condition: uncomplicated Alcohol abuse F10.10 Tremor R25.1 Cirrhosis K70.30 Ascites presence: unspecified Hepatic cirrhosis type: alcoholic cirrhosis Leukocytopenia, unspecified D72.819 Thrombocytopenia D69.6 Anemia D64.9 (1) Alcohol withdrawal Complication of substance-induced condition: uncomplicated Qualified Code(s): F10.230 - Alcohol dependence with withdrawal, uncomplicated (2) Cirrhosis Ascites presence: unspecified Hepatic cirrhosis type: alcoholic cirrhosis Qualified Code(s): K70.30 - Alcoholic cirrhosis of liver without ascites
--- NOTE | 2020-12-09 19:27 | Hospitalist Progress Note ---
Date of Service December 09, 2020 Assessment & Plan (1) Alcohol withdrawal: -Alcohol level 350 on admission -Last drink was 4:30PM on 12/08/20 -In ED received 1mg Ativan in addition to Banana Bag -Will start on AWSS with gabapentin and PRN Ativan -Daily Thiamine and Folic Acid -Zofran PRN Nausea -Psychiatry Consulted -Discussed with patient about rehab to which she is hesitant at this time, but understands there is a need-Alcohol level 350 on admission - Continue AAWS withdraw - she is on the Gabapentin protocol, which worked well for her in the past - She remains tremulous and nausea improved from this morning-- Scheduled librium 25 mg PO q6 hours - She denies hallucinations Follow her intake through tomorrow with caloric and volume needs. May need to support with IVF and/or supplementation as she is did not feel like eating much for breakfast and lunch. (2) Alcohol abuse: As above, patient states she is interested in sobriety and help. She reports she has information, but needs to see what will be covered with her insurance (3) Tremor: As above- ETOH abuse (4) Cirrhosis: Liver Cirrhosis -Continue home Lasix and Spironolactone -MELD Score 13 on previous admission with 6% estimated 3 month mortality -Will order PT/INR in AM, though suspect similar MELD at this admission -Transaminitis, suspect secondary to current continued alcohol use - Discriminatory function 12.6 - Continue to follow her LFTs and synthetic function. Stable overnight - B12 remains elevated as well. (5) Leukocytopenia, unspecified: Secondary cause from likely related to her ETOH abuse and cirrhosis suppressing her marrow function. - Follow clinical response (6) Thrombocytopenia: As above (7) Anemia: As above (8) Diabetes: history of hyperglycemia in the past - Her HGB A1C has been elevated on previous admissions - SHe is not taking much in as well as her cirrhosis- will follow- Place on HYPOglycemic protocol for now as FSBG this morning was 72 - check ACHS- notify if >180 Admission and Anticipated Discharge Date Admission Date: December 08, 2020 Supervising Physician Co-Signing Physician Notes URVASHI Supervision note: I have not personally seen and examined the patient but I discussed and verified the wood points of the history and physical along with the plan with URVASHI Christian with the following exceptions and/or additions: none Subjective She reports relapsing this time after returning from a short stay at her parents where she thinks she did well. She "wants to be in this area for her daughter, but this also brings back the ease for her to drink" Patient is briskly awake and ambulating back from the bathroom. The patient endorses that she feels better this afternoon, following this morning. She endorsed nausea and tremors with sweats early this morning. This evening she feels as her tremors have decreased a bit, nausea is improved and she will try to eat for dinner. She did appreciate seeing psych today. We discussed the need for her to stop drinking and she can verbalize that well, but she would benefit from a professional setting to get through this. She has avoided rehab because of cost as well as thinking she can do this on her own. Review of Systems Review of Systems: REVIEW OF SYSTEMS: Constitutional: No fever, sweats or chills Eyes: No diplopia, no worsening or blurred vision ENT: normal hearing, no trouble swallowing Respiratory: No cough, sputum, dyspnea at rest or on exertion Cardiovascular: No chest pain, tightness or palpitations Abdomen: (+) nausea, No pain, vomiting, diarrhea or constipation Musculoskeletal: (+) shakiness with legs, No joint pain, calf pain, swelling Neurologic: No weakness, numbness/tingling, or balance problems Psychiatric: (+) anxiety Skin: No rash or itch Physical Exam Constitutional: cooperative; no acute distress and not ill appearing Eyes: PERRL, conjunctivae normal, anicteric sclerae + anicteric sclerae ENMT: external ear and nose normal, oropharynx normal Respiratory: normal respiratory effort, lungs clear to auscultation Cardiovascular: RRR, no murmur, no edema Rate/Rhythm: regular rhythm Heart Sounds: normal S1 and normal S2 Gastrointestinal (Abdomen): Inspection/Auscultation: abdomen normal to inspection and normal bowel sounds Percussion/Palpation: abdomen soft, + hepatomegaly and + tympanic to percussion; abdomen nontender, no ascites, no fluid wave and abdomen not firm Musculoskeletal: no cyanosis or clubbing, extremities motor strength 5/5 Gait: normal gait Skin: no rashes, warm and dry Neurologic: normal touch/pain/proprioception, moves all extremities and awake Speech / Cognition: normal speech Results & Data Results & Data ([facility]) Vital Signs (Past 12 Hours) Vital Signs Temp Pulse Pulse Resp BP Pulse Ox Pulse Ox 12/09/20 15:17 36.8 C 98 H 18 116/76 96 12/09/20 11:58 36.7 C 99 H 20 120/72 93 12/09/20 08:20 36.7 C 92 H 19 103/67 95 12/09/20 08:00 97 H 96 PG Care Time/CCT Total # of Minutes Spent Total Time Spent with Patient: Total time spent is greater than 50% in coordination of care (as documented) at patient's floor/unit and/or counseling patient: Coding Level of Care Code 26768 Subseq Hosp Care Lvl 3 Diagnoses Alcohol withdrawal F10.230 Complication of substance-induced condition: uncomplicated Alcohol abuse F10.10 Tremor R25.1 Cirrhosis K70.30 Ascites presence: unspecified Hepatic cirrhosis type: alcoholic cirrhosis Leukocytopenia, unspecified D72.819 Thrombocytopenia D69.6 Anemia D64.9 Diabetes E11.9 (1) Alcohol withdrawal Complication of substance-induced condition: uncomplicated Qualified Code(s): F10.230 - Alcohol dependence with withdrawal, uncomplicated (2) Cirrhosis Ascites presence: unspecified Hepatic cirrhosis type: alcoholic cirrhosis Qualified Code(s): K70.30 - Alcoholic cirrhosis of liver without ascites
[2020-12-09] MEDS ORDERED: MIRTAZAPINE TAB 15 MG TAB PO SCH ×2 (21:00)
[2020-12-10] MEDS: chlordiazePOXIDE HCl 25 MG CAP PO SCH ×3 (00:41→11:34)
[2020-12-10] MEDS: ENOXAPARIN INJ 40 MG/0.4 ML SYR SQ SCH (00:41)
--- NOTE | 2020-12-10 00:42 | Billing Data ---
Date of Service December 10, 2020 Coding Level of Care Code 93315 Initial Inpt Care Lvl 3
[2020-12-10 05:51] LABS: Hematocrit (blood only) 37.3 % (37-47); Hemoglobin 12.6 g/dL (12.0-16.0); Mean Corpuscular Hemoglobin 31.5 pg (25-34); Mean Corpuscular Hgb Conc 33.8 g/dL (32-36); Mean Corpuscular Volume 93.3 fL (80-100); RDW Coefficient of Variation 13.9 % (11.5-14.5); RDW Standard Deviation 47.6 fL (36.4-46.3)
[2020-12-10 05:53] LABS: Mean Platelet Volume 9.7 fL (7.4-10.4); Platelet Count 73 K/uL (130-400)
[2020-12-10 05:59] LABS: INR 1.5 (0.9-1.1); Prothrombin Time 14.5 Seconds (9.0-12.0)
[2020-12-10] MEDS: GABAPENTIN 600 MG TAB PO SCH (06:03)
[2020-12-10 06:09] LABS: Basophils # (auto) 0.02 K/uL (0-0.2); Basophils % (auto) 1.2 %; Eosinophils # (auto) 0.04 K/uL (0-0.5); Eosinophils % (auto) 2.4 %; Lymphocytes # (auto) 0.75 K/uL (1.2-3.4); Lymphocytes % (auto) 44.1 %; Monocytes # (auto) 0.14 K/uL (0.11-0.59); Monocytes % (auto) 8.2 %; Neutrophils # (auto) 0.75 K/uL (1.4-6.5); Neutrophils % (auto) 44.1 %
[2020-12-10 06:10] LABS: Giant Platelets 1+
[2020-12-10 06:25] LABS: Albumin Level 3.4 gm/dl (3.4-5.0); BUN Creatinine Ratio 12.7 (10-20); Calcium 9.9 mg/dl (8.5-10.1); Creatinine Clr Calc Pharmacy 99.8 ml/min; Est GFR (African American) 124.9 ml/min; Est GFR (Non-African American) 107.8 ml/min; Magnesium 1.8 mg/dl (1.8-2.4); Potassium 3.9 mmol/L (3.5-5.1)
[2020-12-10 06:31] LABS: Bilirubin Direct 1.2 mg/dl (0-0.2); Bilirubin,Total 2.5 mg/dl (0.2-1); Total Protein 7.7 gm/dl (6.4-8.2)
[2020-12-10] MEDS: MULTIVITAMIN TAB PO SCH (08:55)
[2020-12-10] MEDS: FLUTICASONE/VILANTEROL 200/25MCG 14 PUFFS/INHALER INH SCH (08:55)
[2020-12-10] MEDS: SPIRONOLACTONE 25 MG TAB PO SCH (08:55)
[2020-12-10] MEDS: PANTOprazole 40 MG TAB PO SCH (08:55)
[2020-12-10] MEDS: THIAMINE HCL 100 MG TAB PO SCH (08:55)
[2020-12-10] MEDS: FOLIC ACID 1 MG TAB PO SCH (08:55)
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
[2020-12-10] MEDS ORDERED: NYSTATIN SUSP 500,000 U/5 ML UDC PO SCH (13:00)
[2020-12-11] MEDS ORDERED: GABAPENTIN 600 MG TAB PO SCH
[2020-12-12] MEDS ORDERED: GABAPENTIN 600 MG TAB PO SCH (12:00)
== END 2020-12-10 12:22 | disposition home or self-care (01) | DRG 897 ==
LOC: ED 17:31 → 2N 21:50 → SUATTDRO 21:50 → 2N 23:57
DX: F10.229 Alcohol dependence with intoxication, unspecified; E10.9 Type 1 diabetes mellitus without complications; F41.9 Anxiety disorder, unspecified; D64.9 Anemia, unspecified; K70.30 Alcoholic cirrhosis of liver without ascites; D69.6 Thrombocytopenia, unspecified; F10.230 Alcohol dependence with withdrawal, uncomplicated; J45.909 Unspecified asthma, uncomplicated; T38.0X5A Adverse effect of glucocorticoids and synthetic analogues, initial encounter; R00.0 Tachycardia, unspecified; Y92.009 Unspecified place in unspecified non-institutional (private) residence as the place of occurrence of the external cause; Z83.3 Family history of diabetes mellitus; Z87.891 Personal history of nicotine dependence; K21.9 Gastro-esophageal reflux disease without esophagitis; B37.0 Candidal stomatitis

== ENCOUNTER 2020-12-23 10:09 | Inpatient (IN) ==
[2020-12-23] MEDS ORDERED: MULTI-VITAMIN INFUSION 10 ML, THIAMINE HCL 100 MG, FOLIC ACID 1 MG in SODIUM CHLORIDE 0... IV ONE (10:23)
[2020-12-23] MEDS ORDERED: LORazepam 1 MG/2 ML VIAL IV STA (10:45)
[2020-12-23] MEDS ORDERED: ONDANSETRON INJ 2 MG/ML 2 ML VIAL IV STA ×2 (10:45→12:02)
--- NOTE | 2020-12-23 10:45 | Emergency Department Note ---
Impression & Plan Alcohol withdrawal, Alcohol abuse, Anxiety ED Provider Note INFORMANT: Patient ED PROVIDER(S): Elliot Gonzales MD CHIEF COMPLAINT: Alcohol withdrawal PLAN: Disposition: Admitted Condition: Good Outpatient prescription management: none Referral: None MEDICAL DECISION MAKING: Patient presented to the emergency department because of complaints of alcohol withdrawal. She is had numerous visits for the same recently. The patient has significant issue with anxiety and depression as well. She is self-medicating with alcohol. She was treated prior with Ativan. The patient is in need of a dual diagnosis facility. We had a long discussion about this and the patient was in agreement. An IV was established. She was given a banana bag, IV Ativan, IV Zofran and IV Pepcid. She was feeling better with this. She still has borderline tachycardia. Her blood work revealed a mild pancytopenia. Her numbers are unchanged from prior. She has a slight increase in her liver function studies. Her meld score is approximately 14. Case management was involved. Several facilities did not have female beds however there is one potential facility, [facility], and the process was initiated. They are not excepting today or tomorrow due to the holiday. She will need medical admission here. Consultation was made with Dr. Luis Enrique Muñoz of the [facility] service. Patient was evaluated by the team in the ER for further management. Triage Nursing notes reviewed and agree them. Vital Signs: reviewed and remarkable for tachycardia Differential diagnosis: Alcohol intoxication, toxicologic, infection, hypoglycemia, electrolyte abnormalities, cardiac sources, intracerebral event, neurologic, trauma, as well as other pathologies. Diagnostics interpreted by me: ECG: none Cardiac Monitoring: Cardiac monitoring ordered by me: The patient was placed on continuous cardiac monitoring and observed. It revealed a sinus tachycardic rhythm at 115 beats per minute without ectopy or evidence of dysrhythmia. Imaging studies: Deferred HPI: The patient is a 45 year old female who presents to the Emergency Room with complaints of alcohol withdrawal. This started months ago and is worsening. Recently admitted on 12/08 for same. The patient also notes the following associated symptoms, nausea, shakes, anxiety. The patient has taken no medication for relieving factors. Current pain is rated as 0/10. Pt denies LOC, headache, fevers, chills, diaphoresis, visual changes, neck pain, chest pain, breathing difficulties, vomiting, abdominal pain, back pain, melena, hematochezia, urinary symptoms, numbness, weakness, lymphadenopathy, rash, or other complaints. ROS: See above HPI for pertinent positives & negatives. A total of 10 systems reviewed and were otherwise negative. PAST MEDICAL HISTORY:See Below , alcohol abuse PAST SURGICAL HISTORY:See Below, FAMILY HISTORY:See Below SOCIAL HISTORY:See Below, +etoh HOME MEDICATIONS:See Below ALLERGIES:See Below VITALS:See Below PHYSICAL EXAMINATION: GENERAL: Awake, alert, anxious-appearing, in no distress HENT: Normocephalic, atraumatic. Oropharynx unremarkable. EYES: Normal conjunctiva. Sclera non-icteric. NECK: Inspection normal. Non-tender. Supple. No nuchal rigidity. FROM. No masses. RESPIRATORY: Clear to auscultation. No wheezes. No rales. Normal respiratory effort. CARDIAC: Tachycardic rate. Normal rhythm. No murmurs. No rubs. Extremities warm and well perfused. Pulses equal. No JVD. GI: Soft, mildly-distended. +fluid wave. No tenderness to palpation. No rebound or guarding. No masses. RECTAL: Deferred. MUSCULOSKELETAL: Atraumatic. Chest examination reveals no tenderness. The back is symmetrical on inspection without obvious abnormality. There is no CVA t enderness to palpation. No joint edema. LOWER EXTREMITIES: Calves are equal size bilaterally and non-tender. No edema. No discoloration. NEURO: Normal sensorium. No sensory or motor deficits noted. SKIN: No jaundice noted. +spider telangiectasias Elliot Gonzales MD Past Med/Surg History Medical History Alcohol abuse Anxiety Asthma Diabetes mellitus type 1 Surgical History History of dental surgery History of esophagogastroduodenoscopy (EGD) Family History Father Prediabetes Grandfather (Paternal) Diabetes Mother Hypertension MVP (mitral valve prolapse) Social History Smoking Status: Never smoker Tobacco Type: Cigarettes Age Quit Using Tobacco: 39; packs per day: 1; Years Smoked: 2; Number of Years Since Quit: 4; Second Hand Exposure: No; Hx Alcohol Use: Yes Alcohol type: wine and hard liquor Alcohol type Comment: 4 glasses wine daily Hx Substance Use: No Preferred Language: Bolivian Communication Ability: Effective Visual Impairment: No Limitations Field Servicer Required: No Beliefs That Will Affect Care: None marital status: marital status details: Single parent Current Living Situation: Other Current Living Situation Comment: 17 yo daughter lives with patient current occupational status: unemployed Feels Safe at Home: Yes Childhood Exposure to Second-Hand Smoke: No Assistive Devices: None Allergies Allergies Allergy/AdvReac Type Severity Reaction Status Date / Time theophylline AdvReac Unknown VERTIGO Verified 12/23/20 10:20 Home Meds Home Medications Medication Instructions Recorded Confirmed fluticasone propion-salmeterol 1 inh INHALATION QAM 02/27/19 12/23/20 [Advair Diskus] albuterol sulfate [Ventolin HFA] 2 puff INHALATION Q6H PRN 07/23/19 12/23/20 famotidine 20 mg PO DAILY PRN 11/10/20 12/23/20 insulin asp prt-insulin aspart 0 unit SUBCUT BID PRN 11/10/20 12/23/20 [Novolog Mix 70-30 U-100 Insuln] omeprazole 20 mg PO DAILY 11/10/20 12/23/20 vitamin B complex-folic acid 1 tab PO DAILY 11/10/20 12/23/20 Previous Rx's Medication Instructions Recorded multivitamin [Daily-Harris] 1 tab PO QAM #0 tab 07/27/19 furosemide 20 mg PO QAM #30 tab 06/08/20 spironolactone 25 mg PO QAM #30 tab 06/08/20 potassium chloride 10 meq PO BID #60 cap 11/13/20 chlordiazepoxide HCl 25 mg PO Q6H PRN #6 cap 12/10/20 mirtazapine 15 mg PO HS #30 tab 12/10/20 nystatin 5 ml PO QID #60 ml 12/10/20 Results & Data (ED) Vital Signs Vital Signs - 24 hr 12/23/20 10:20 12/23/20 11:57 12/23/20 13:19 Temperature 36.9 C Temperature Source Oral Pulse Rate 118 H Pulse Rate [Finger] 112 H 106 H Pulse Rate from SpO2 Sensor Respiratory Rate 20 16 16 Blood Pressure 116/65 Blood Pressure [Right Arm] 111/73 92/53 L Blood Pressure Mean 82 Blood Pressure Mean [Right Arm] 85 66 Pulse Oximetry 98 98 98 Oxygen Delivery Method Room Air Nasal Cannula Nasal Cannula Oxygen Flow Rate 2 2 Sepsis Recent Fever Within 48 Hours No Sepsis New/Unexplained Change in Mental Status No Sepsis Action Taken by Nursing No Action Required 12/23/20 15:00 12/23/20 15:30 12/23/20 16:00 Temperature Temperature Source Pulse Rate 107 H 95 H 96 H Pulse Rate [Finger] Pulse Rate from SpO2 Sensor 107 H 95 H 96 H Respiratory Rate 19 16 15 Blood Pressure 110/64 100/64 101/63 Blood Pressure [Right Arm] Blood Pressure Mean 79 76 75 Blood Pressure Mean [Right Arm] Pulse Oximetry 98 94 95 Oxygen Delivery Method Oxygen Flow Rate Sepsis Recent Fever Within 48 Hours Sepsis New/Unexplained Change in Mental Status Sepsis Action Taken by Nursing Laboratory Data Result diagrams: 12/23/20 11:00 12/23/20 11:00 Lab Results 12/23/20 12/23/20 12/23/20 Range/Units 11:00 11:00 11:00 WBC 3.36 L (4.8-10.8) K/uL RBC 3.82 L (4.2-5.4) M/uL Hgb 12.1 (12.0-16.0) g/dL Hct 35.4 L (37-47) % MCV 92.7 (80-100) fL MCH 31.7 (25-34) pg MCHC 34.2 (32-36) g/dL RDW Std Deviation 53.7 H (36.4-46.3) fL RDW Coeff of Suzanne 16.2 H (11.5-14.5) % Plt Count 123 L (130-400) K/uL MPV 8.9 (7.4-10.4) fL Immature Gran % (Auto) 0.3 % Neut % (Auto) 65.2 % Lymph % (Auto) 22.6 % Upson % (Auto) 10.4 % Eos % (Auto) 0.3 % Baso % (Auto) 1.2 % Neut # (Auto) 2.19 (1.4-6.5) K/uL Lymph # (Auto) 0.76 L (1.2-3.4) K/uL Upson # (Auto) 0.35 (0.11-0.59) K/uL Eos # (Auto) 0.01 (0-0.5) K/uL Baso # (Auto) 0.04 (0-0.2) K/uL Immature Gran # (Auto) 0.01 (0.00-0.02) K/uL PT (9.0-12.0) Seconds INR (0.9-1.1) VBG pH (7.36-7.41) VBG pCO2 (38-50) mmHg VBG pO2 mmHg VBG HCO3 mmol/L VBG O2 Saturation % VBG Base Excess mEq/L Barometric Pressure mm/Hg Sodium 139 (136-145) mmol/L Potassium 3.9 (3.5-5.1) mmol/L Chloride 102 (98-107) mmol/L Carbon Dioxide 17 L (21-32) mmol/L Anion Gap 19.0 H (3-11) BUN 12 (7-18) mg/dl Creatinine 0.71 (0.6-1.2) mg/dl Est Cr Clr Drug Dosing 90.2 ml/min Est GFR ( Amer) 119.2 ml/min Est GFR (Non-Af Amer) 102.9 ml/min BUN/Creatinine Ratio 16.8 (10-20) Glucose 88 (70-99) mg/dl Lactate (0.4-2.0) mmol/L Calcium 9.3 (8.5-10.1) mg/dl Phosphorus (2.5-4.9) mg/dl Total Bilirubin 2.4 H (0.2-1) mg/dl AST 358 H (15-37) U/L ALT 75 (12-78) U/L Alkaline Phosphatase 242 H (45-117) U/L Ammonia Total Protein 8.8 H (6.4-8.2) gm/dl Albumin 4.1 (3.4-5.0) gm/dl Globulin 4.7 H (2.5-4.0) gm/dl Albumin/Globulin Ratio 0.9 (0.9-2) HCG, Qual (Negative) Ethyl Alcohol mg/dL 343.6 H (0-3) mg/dl COVID-19 Eval Order SARS-CoV-2 (PCR) (Negative) 12/23/20 12/23/20 12/23/20 Range/Units 11:00 11:00 12:07 WBC (4.8-10.8) K/uL RBC (4.2-5.4) M/uL Hgb (12.0-16.0) g/dL Hct (37-47) % MCV (80-100) fL MCH (25-34) pg MCHC (32-36) g/dL RDW Std Deviation (36.4-46.3) fL RDW Coeff of Suzanne (11.5-14.5) % Plt Count (130-400) K/uL MPV (7.4-10.4) fL Immature Gran % (Auto) % Neut % (Auto) % Lymph % (Auto) % Upson % (Auto) % Eos % (Auto) % Baso % (Auto) % Neut # (Auto) (1.4-6.5) K/uL Lymph # (Auto) (1.2-3.4) K/uL Upson # (Auto) (0.11-0.59) K/uL Eos # (Auto) (0-0.5) K/uL Baso # (Auto) (0-0.2) K/uL Immature Gran # (Auto) (0.00-0.02) K/uL PT 14.2 H (9.0-12.0) Seconds INR 1.4 H (0.9-1.1) VBG pH (7.36-7.41) VBG pCO2 (38-50) mmHg VBG pO2 mmHg VBG HCO3 mmol/L VBG O2 Saturation % VBG Base Excess mEq/L Barometric Pressure mm/Hg Sodium (136-145) mmol/L Potassium (3.5-5.1) mmol/L Chloride (98-107) mmol/L Carbon Dioxide (21-32) mmol/L Anion Gap (3-11) BUN (7-18) mg/dl Creatinine (0.6-1.2) mg/dl Est Cr Clr Drug Dosing ml/min Est GFR ( Amer) ml/min Est GFR (Non-Af Amer) ml/min BUN/Creatinine Ratio (10-20) Glucose (70-99) mg/dl Lactate (0.4-2.0) mmol/L Calcium (8.5-10.1) mg/dl Phosphorus 3.2 (2.5-4.9) mg/dl Total Bilirubin (0.2-1) mg/dl AST (15-37) U/L ALT (12-78) U/L Alkaline Phosphatase (45-117) U/L Ammonia Total Protein (6.4-8.2) gm/dl Albumin (3.4-5.0) gm/dl Globulin (2.5-4.0) gm/dl Albumin/Globulin Ratio (0.9-2) HCG, Qual Negative (Negative) Ethyl Alcohol mg/dL (0-3) mg/dl COVID-19 Eval Order SARS-CoV-2 (PCR) (Negative) 12/23/20 12/23/20 12/23/20 Range/Units 13:43 13:43 13:43 WBC (4.8-10.8) K/uL RBC (4.2-5.4) M/uL Hgb (12.0-16.0) g/dL Hct (37-47) % MCV (80-100) fL MCH (25-34) pg MCHC (32-36) g/dL RDW Std Deviation (36.4-46.3) fL RDW Coeff of Suzanne (11.5-14.5) % Plt Count (130-400) K/uL MPV (7.4-10.4) fL Immature Gran % (Auto) % Neut % (Auto) % Lymph % (Auto) % Upson % (Auto) % Eos % (Auto) % Baso % (Auto) % Neut # (Auto) (1.4-6.5) K/uL Lymph # (Auto) (1.2-3.4) K/uL Upson # (Auto) (0.11-0.59) K/uL Eos # (Auto) (0-0.5) K/uL Baso # (Auto) (0-0.2) K/uL Immature Gran # (Auto) (0.00-0.02) K/uL PT (9.0-12.0) Seconds INR (0.9-1.1) VBG pH 7.34 L (7.36-7.41) VBG pCO2 33 L (38-50) mmHg VBG pO2 62 mmHg VBG HCO3 17 mmol/L VBG O2 Saturation 88.6 % VBG Base Excess -7.8 mEq/L Barometric Pressure 728.1 mm/Hg Sodium (136-145) mmol/L Potassium (3.5-5.1) mmol/L Chloride (98-107) mmol/L Carbon Dioxide (21-32) mmol/L Anion Gap (3-11) BUN (7-18) mg/dl Creatinine (0.6-1.2) mg/dl Est Cr Clr Drug Dosing ml/min Est GFR ( Amer) ml/min Est GFR (Non-Af Amer) ml/min BUN/Creatinine Ratio (10-20) Glucose (70-99) mg/dl Lactate 1.4 (0.4-2.0) mmol/L Calcium (8.5-10.1) mg/dl Phosphorus (2.5-4.9) mg/dl Total Bilirubin (0.2-1) mg/dl AST (15-37) U/L ALT (12-78) U/L Alkaline Phosphatase (45-117) U/L Ammonia Cancelled Total Protein (6.4-8.2) gm/dl Albumin (3.4-5.0) gm/dl Globulin (2.5-4.0) gm/dl Albumin/Globulin Ratio (0.9-2) HCG, Qual (Negative) Ethyl Alcohol mg/dL (0-3) mg/dl COVID-19 Eval Order SARS-CoV-2 (PCR) (Negative) 12/23/20 12/23/20 12/23/20 Range/Units 14:05 14:05 14:40 WBC (4.8-10.8) K/uL RBC (4.2-5.4) M/uL Hgb (12.0-16.0) g/dL Hct (37-47) % MCV (80-100) fL MCH (25-34) pg MCHC (32-36) g/dL RDW Std Deviation (36.4-46.3) fL RDW Coeff of Suzanne (11.5-14.5) % Plt Count (130-400) K/uL MPV (7.4-10.4) fL Immature Gran % (Auto) % Neut % (Auto) % Lymph % (Auto) % Upson % (Auto) % Eos % (Auto) % Baso % (Auto) % Neut # (Auto) (1.4-6.5) K/uL Lymph # (Auto) (1.2-3.4) K/uL Upson # (Auto) (0.11-0.59) K/uL Eos # (Auto) (0-0.5) K/uL Baso # (Auto) (0-0.2) K/uL Immature Gran # (Auto) (0.00-0.02) K/uL PT (9.0-12.0) Seconds INR (0.9-1.1) VBG pH (7.36-7.41) VBG pCO2 (38-50) mmHg VBG pO2 mmHg VBG HCO3 mmol/L VBG O2 Saturation % VBG Base Excess mEq/L Barometric Pressure mm/Hg Sodium (136-145) mmol/L Potassium (3.5-5.1) mmol/L Chloride (98-107) mmol/L Carbon Dioxide (21-32) mmol/L Anion Gap (3-11) BUN (7-18) mg/dl Creatinine (0.6-1.2) mg/dl Est Cr Clr Drug Dosing ml/min Est GFR ( Amer) ml/min Est GFR (Non-Af Amer) ml/min BUN/Creatinine Ratio (10-20) Glucose (70-99) mg/dl Lactate (0.4-2.0) mmol/L Calcium (8.5-10.1) mg/dl Phosphorus (2.5-4.9) mg/dl Total Bilirubin (0.2-1) mg/dl AST (15-37) U/L ALT (12-78) U/L Alkaline Phosphatase (45-117) U/L Ammonia 16.0 Total Protein (6.4-8.2) gm/dl Albumin (3.4-5.0) gm/dl Globulin (2.5-4.0) gm/dl Albumin/Globulin Ratio (0.9-2) HCG, Qual (Negative) Ethyl Alcohol mg/dL (0-3) mg/dl COVID-19 Eval Order Covid19 at [facility] SARS-CoV-2 (PCR) NEGATIVE (Negative) Administered Medications Discontinued Medications Famotidine (Famotidine 20mg/5ml Iv Push) 20 mg IV ONE STA Stop: 12/23/20 12:03 Last Admin: 12/23/20 12:08 Dose: 20 mg Documented by: [id number] Multivitamins 10 ml/ Thiamine HCl 100 mg/ Folic Acid 1 mg/Sodium Chloride 1,011.2 mls @ 1,011.2 mls/hr IV .Q1H ONE Stop: 12/23/20 11:22 Last Infusion: 12/23/20 12:53 Dose: 0 mls/hr Documented by: [id number] Admin: 12/23/20 11:18 Dose: 1,011.2 mls/hr Documented by: [id number] Lorazepam (Ativan) 1 mg in 2 mls @ 2 mls/min IV NOW STA Stop: 12/23/20 10:46 Last Admin: 12/23/20 11:18 Dose: 2 mls/min Documented by: [id number] Ondansetron HCl (Ondansetron Inj 2 Mg/Ml 2 Ml Vial) 4 mg IV NOW STA Stop: 12/23/20 10:46 Last Admin: 12/23/20 11:18 Dose: 4 mg Documented by: [id number] Ondansetron HCl (Ondansetron Inj 2 Mg/Ml 2 Ml Vial) 4 mg IV NOW STA Stop: 12/23/20 12:03 Last Admin: 12/23/20 12:07 Dose: 4 mg Documented by: [id number] Imaging Data Radiologist's Impression: Toe X-Ray 12/23/20 13:30 LEFT FOURTH AND FIFTH TOES 2 VIEWS CLINICAL HISTORY: Fourth and fifth toe injury. FINDINGS: 3 views of the left fourth and fifth toes are obtained. No prior studies are available for comparison at the time of dictation. The skeletal structures are well mineralized. There is no radiographic evidence of fourth or fifth toe fracture. The joint spaces of the fourth and fifth toes are maintained. Fusion of the fifth distal interphalangeal joint is incidentally noted. Mild soft tissue edema overlies the fifth toe. IMPRESSION: No fracture is identified. Electronically signed by: Randell Lo M.D. 12/23/2020 1:57 PM Discharge Plan Visit Data Chief Complaint: Alcohol Withdrawal ED Provider: Elliot Gonzales Discharge Problem: Alcohol withdrawal, Alcohol abuse, Anxiety Forms Stand Alone Forms: [facility], Suicide Prevention Resources Prescriptions Prescriptions: No Action fluticasone propion-salmeterol [Advair Diskus] 250-50 mcg/dose blister with device 1 inh inhalation QAM RF: 0 albuterol sulfate [Ventolin HFA] 90 mcg/actuation Hfa Aerosol Inhaler 2 puff INHALATION Q6H PRN (Reason: Shortness Of Breath) RF: 0 multivitamin [Daily-Harris] Tablet 1 tab PO QAM Qty: 0 RF: 0 spironolactone 25 mg Tablet 25 mg PO QAM Qty: 30 RF: 1 furosemide 20 mg Tablet 20 mg PO QAM Qty: 30 RF: 1 insulin asp prt-insulin aspart [Novolog Mix 70-30 U-100 Insuln] 100 unit/mL (70-30) solution 0 unit SUBCUT BID PRN (Reason: DEPENDS ON BSG PER PT.) RF: 0 omeprazole 20 mg Capsule,Delayed Release(Dr/Ec) 20 mg PO DAILY RF: 0 famotidine 20 mg Tablet 20 mg PO DAILY PRN (Reason: Gi Upset) RF: 0 vitamin B complex-folic acid 50 mcg Tablet 1 tab PO DAILY RF: 0 potassium chloride 10 mEq capsule, extended release 10 meq PO BID Qty: 60 RF: 0 mirtazapine 15 mg Tablet 15 mg PO HS Qty: 30 RF: 0 nystatin 100,000 unit/mL Suspension 5 ml PO QID Qty: 60 RF: 0 chlordiazepoxide HCl 25 mg capsule 25 mg PO Q6H PRN (Reason: anxiety or withdrawal symptoms) Qty: 6 RF: 0
[2020-12-23 11:19] LABS: Basophils # (auto) 0.04 K/uL (0-0.2); Basophils % (auto) 1.2 %; Eosinophils # (auto) 0.01 K/uL (0-0.5); Eosinophils % (auto) 0.3 %; Hematocrit (blood only) 35.4 % (37-47); Hemoglobin 12.1 g/dL (12.0-16.0); Immature Granulocytes # (auto) 0.01 K/uL (0.00-0.02); Immature Granulocytes % (auto) 0.3 %; Lymphocytes # (auto) 0.76 K/uL (1.2-3.4); Lymphocytes % (auto) 22.6 %; Mean Corpuscular Hemoglobin 31.7 pg (25-34); Mean Corpuscular Hgb Conc 34.2 g/dL (32-36); Mean Corpuscular Volume 92.7 fL (80-100); Mean Platelet Volume 8.9 fL (7.4-10.4); Monocytes # (auto) 0.35 K/uL (0.11-0.59); Monocytes % (auto) 10.4 %; Neutrophils # (auto) 2.19 K/uL (1.4-6.5); Neutrophils % (auto) 65.2 %; Platelet Count 123 K/uL (130-400); RDW Coefficient of Variation 16.2 % (11.5-14.5); RDW Standard Deviation 53.7 fL (36.4-46.3); Red Blood Count 3.82 M/uL (4.2-5.4); White Blood Count 3.36 K/uL (4.8-10.8)
[2020-12-23 11:35] LABS: Albumin Level 4.1 gm/dl (3.4-5.0); BUN Creatinine Ratio 16.8 (10-20); Calcium 9.3 mg/dl (8.5-10.1); Creatinine Clr Calc Pharmacy 90.2 ml/min; Est GFR (African American) 119.2 ml/min; Est GFR (Non-African American) 102.9 ml/min; Potassium 3.9 mmol/L (3.5-5.1)
[2020-12-23 11:38] LABS: Albumin Globulin Ratio 0.9 (0.9-2); Bilirubin,Total 2.4 mg/dl (0.2-1); Globulin 4.7 gm/dl (2.5-4.0); Total Protein 8.8 gm/dl (6.4-8.2)
[2020-12-23 11:56] LABS: Pregnancy Test, Serum Negative (Negative)
[2020-12-23] MEDS ORDERED: FAMOTIDINE 20MG/5ML IV PUSH IV STA (12:02)
[2020-12-23 12:25] LABS: INR 1.4 (0.9-1.1); Prothrombin Time 14.2 Seconds (9.0-12.0)
[2020-12-23 13:37] LABS: Phosphorus 3.2 mg/dl (2.5-4.9)
--- NOTE | 2020-12-23 13:48 | History & Physical Report ---
Date of Service December 23, 2020 Assessment & Plan (1) Alcohol withdrawal: Continue supportive care with AAWS - Banana Bag x1 Liter in the EMD - Continue Thiamine 300mg IV daily and Folic Acid 1mg PO daily - Continue Librium 25mg PO q6 scheduled- increase to 50mg if symptoms not controlled - Gabapentin AAWS with 800mg Load- patient has done well with this managment in the past - As prior patient will need professional assistance and her commitment. -- Awaiting information back from [facility] - Case Management consult placed (2) Alcohol abuse: As above- last drink at 2300 or so. - ETOH level- 343.6 -AWSS protocol, ativan prn Librium and gabapentin tapers as above (3) Alcoholic intoxication: As above (4) Metabolic acidosis: HCO3 17 with AGAP of 19- VBG with PH of 7.34 and PaCO2 33- appropriate compensated primary metabolic acidosis - Base Deficit -7.8 consistent with hypovolemia/dehydration and likely Ketosis from poor intake - lactate 1.4 - Glucose 88 (which is low for patient)- dextrose checks q6 hours - D5LR at 100ml per hour (5) Acute alcoholic hepatitis: Patient is not encephalopathic, with no ascites appreciated on exam - Liver ultrasound routine - hold home Lasix and spironolactone while volume down as above, giving IVFs - INR 1.4 - MELD 14 - DF-12.5 - Child Schwartz- 6 - Ammonia pending - MCV 92 (6) Thrombocytopenia: Platelet count 123 improved from prior admissions - Bone marrow supression from chronic ETOH (7) Leukopenia: As above (8) GERD (gastroesophageal reflux disease): Continue with omeprazole and Famotidine (9) Anxiety: Continue with Mirtazapine qhs - Librium and gabapentin - 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 Patient was last admitted 12/08/20 for withdraw symptom management and left AMA on 12/10, previous to that the patient was discharged home on with gabapentin and Librium as well as drug and alcohol help-line information. Patient continues to state that she does want to stop drinking and wants help, but again continues to try to do this herself because of "insurance and cost". [facility] has also evaluated the patient and has reached out to [facility] to assist with treatment and monitoring. Patient comes to the emergency room today because "she is going through withdraw" and "want to stop drinking". The patient last drank a pint of Vodka last night with crystal light. She finished this around midnight. She also endorses that she has not ate anything for the past 2 days because of loss of appetite. She has been drinking crystal light only. Patient complains of left foot pain after kicking a carpet in her bedroom earlier in the week, that hurts to walk and difficulty with flexion of toes. She also states that she is continuing her medications, but continues to have thrush to her mouth and visible tremors at this time. In the EMD she was given 1mg Ativan and Banana bag. She has yet to void. Patient states that she "may stay for a day". I spoke with the patient that I understands that this is difficult for her and we are here to support her through this, but she would need to help us by staying and committing to her treatment. She did say she understood and was open to assistance, we also discussed the possible options of [facility] dual treatment facility. Allergies Allergy/AdvReac Type Severity Reaction Status Date / Time theophylline AdvReac Unknown VERTIGO Verified 12/23/20 10:20 Home Medications Medication Instructions Recorded Confirmed Type fluticasone propion-salmeterol 1 inh INHALATION QAM 02/27/19 12/23/20 History [Advair Diskus] albuterol sulfate [Ventolin HFA] 2 puff INHALATION Q6H PRN 07/23/19 12/23/20 History multivitamin [Daily-Harris] 1 tab PO QAM #0 tab 07/27/19 12/23/20 Rx furosemide 20 mg PO QAM #30 tab 06/08/20 12/23/20 Rx spironolactone 25 mg PO QAM #30 tab 06/08/20 12/23/20 Rx famotidine 20 mg PO DAILY PRN 11/10/20 12/23/20 History insulin asp prt-insulin aspart 0 unit SUBCUT BID PRN 11/10/20 12/23/20 History [Novolog Mix 70-30 U-100 Insuln] omeprazole 20 mg PO DAILY 11/10/20 12/23/20 History vitamin B complex-folic acid 1 tab PO DAILY 11/10/20 12/23/20 History potassium chloride 10 meq PO BID #60 cap 11/13/20 12/23/20 Rx chlordiazepoxide HCl 25 mg PO Q6H PRN #6 cap 12/10/20 12/23/20 Rx mirtazapine 15 mg PO HS #30 tab 12/10/20 12/23/20 Rx nystatin 5 ml PO QID #60 ml 12/10/20 12/23/20 Rx Past Med/Surg History Medical History Alcohol abuse Anxiety Asthma Diabetes mellitus type 1 Surgical History History of dental surgery History of esophagogastroduodenoscopy (EGD) Family History Father Prediabetes Grandfather (Paternal) Diabetes Mother Hypertension MVP (mitral valve prolapse) Social History Smoking Status: Former smoker Tobacco Type: Cigarettes Age Quit Using Tobacco: 39; packs per day: 1; Years Smoked: 2; Number of Years Since Quit: 4; Second Hand Exposure: No; Do You Dip or Chew Tobacco: No; Tobacco Cessation Education Requested by Patient: No Hx Alcohol Use: Yes Alcohol type: hard liquor Alcohol type Comment: 4 glasses wine daily Hx Substance Use: No Preferred Language: Ecuadorean Communication Ability: Effective Visual Impairment: No Limitations Side Stitcher Required: No Beliefs That Will Affect Care: None marital status: marital status details: Single parent Current Living Situation: Alone Current Living Situation Comment: 17 yo daughter lives with patient current occupational status: unemployed Other Information That Helps Us Care for You: No Feels Safe at Home: Yes Childhood Exposure to Second-Hand Smoke: No Assistive Devices: Glasses Review of Systems Review of Systems: REVIEW OF SYSTEMS: Constitutional: No fever, sweats or chills Eyes: (+) thrush to tongue, No diplopia, no worsening or blurred vision ENT: normal hearing, no trouble swallowing Respiratory: No cough, sputum, dyspnea at rest or on exertion Cardiovascular: No chest pain, tightness or palpitations Abdomen: (+) loss of appetite, No pain, nausea, vomiting, diarrhea or constipation Musculoskeletal: (+) left toe pain, No joint pain, calf pain, swelling Neurologic: No weakness, numbness/tingling, or balance problems Psychiatric: (+) intoxication, anxiety or depression Skin: No rash or itch Physical Exam Physical Exam: PHYSICAL EXAM: General: awake, alert, intoxicated Head: Normocephalic, atraumatic ENT: PERRL, EOMI, no pharyngeal exudate, mucous membranes dry, with thrush to tongue Neuro: AAO x 3, speech clear and appropriate with slurring from intoxication, strength intact bilaterally 5/5, sensation intact and equal all extremities and dermatomes, no pronator drift, tremors bilateral, no headache, Chest: equal rise and fall of the chest, no accessory muscle use, no heaves or thrills, Clear to auscultation, on room air, Cardiac: Regular rate and rhythm, telemetry reviewed, skin warm dry, cap refill <3 seconds, peripheral pulses +2 no JVD, no murmur, no JVD, no edema GI: NABS x 4 quadrants, softly distended, enlarged liver, nontender to palpation, no rebound, guarding or tenderness : void pending, denies any pain, no CVA tenderness, Extremities: Left last 2 toes tender at distal edges, no pain in the arch or midfoot, patient is able to bear weight, Normal inspection, no peripheral edema or erythema, calfs nontender to palpation Psych: Normal mood and affect Skin: no rash or erythema Results & Data Results & Data ([facility]) Vital Signs (Past 12 Hours) Vital Signs Temp Pulse Pulse Resp BP BP Pulse Ox 12/23/20 13:19 106 H 16 92/53 L 98 12/23/20 11:57 112 H 16 111/73 98 12/23/20 10:20 36.9 C 118 H 20 116/65 98 Laboratory Results Abnormal lab results 12/23/20 12/23/20 12/23/20 Range/Units 11:00 11:00 11:00 WBC 3.36 L (4.8-10.8) K/uL RBC 3.82 L (4.2-5.4) M/uL Hct 35.4 L (37-47) % RDW Std Deviation 53.7 H (36.4-46.3) fL RDW Coeff of Suzanne 16.2 H (11.5-14.5) % Plt Count 123 L (130-400) K/uL Lymph # (Auto) 0.76 L (1.2-3.4) K/uL PT (9.0-12.0) Seconds INR (0.9-1.1) VBG pH (7.36-7.41) VBG pCO2 (38-50) mmHg Carbon Dioxide 17 L (21-32) mmol/L Anion Gap 19.0 H (3-11) Total Bilirubin 2.4 H (0.2-1) mg/dl AST 358 H (15-37) U/L Alkaline Phosphatase 242 H (45-117) U/L Total Protein 8.8 H (6.4-8.2) gm/dl Globulin 4.7 H (2.5-4.0) gm/dl Ethyl Alcohol mg/dL 343.6 H (0-3) mg/dl 12/23/20 12/23/20 Range/Units 12:07 13:43 WBC (4.8-10.8) K/uL RBC (4.2-5.4) M/uL Hct (37-47) % RDW Std Deviation (36.4-46.3) fL RDW Coeff of Suzanne (11.5-14.5) % Plt Count (130-400) K/uL Lymph # (Auto) (1.2-3.4) K/uL PT 14.2 H (9.0-12.0) Seconds INR 1.4 H (0.9-1.1) VBG pH 7.34 L (7.36-7.41) VBG pCO2 33 L (38-50) mmHg Carbon Dioxide (21-32) mmol/L Anion Gap (3-11) Total Bilirubin (0.2-1) mg/dl AST (15-37) U/L Alkaline Phosphatase (45-117) U/L Total Protein (6.4-8.2) gm/dl Globulin (2.5-4.0) gm/dl Ethyl Alcohol mg/dL (0-3) mg/dl Diagnostic Findings Toe X-Ray 12/23/20 13:30 LEFT FOURTH AND FIFTH TOES 2 VIEWS CLINICAL HISTORY: Fourth and fifth toe injury. FINDINGS: 3 views of the left fourth and fifth toes are obtained. No prior studies are available for comparison at the time of dictation. The skeletal structures are well mineralized. There is no radiographic evidence of fourth or fifth toe fracture. The joint spaces of the fourth and fifth toes are maintained. Fusion of the fifth distal interphalangeal joint is incidentally noted. Mild soft tissue edema overlies the fifth toe. Electronically signed by: Randell Lo M.D. 12/23/2020 1:57 PM Medications Administered Home Medications fluticasone propion-salmeterol [Advair Diskus] 1 inh INHALATION QAM 02/27/19 [History Confirmed 12/23/20] albuterol sulfate [Ventolin HFA] 2 puff INHALATION Q6H PRN 07/23/19 [History Confirmed 12/23/20] multivitamin [Daily-Harris] 1 tab PO QAM #0 tab 07/27/19 [Rx Confirmed 12/23/20] furosemide 20 mg PO QAM #30 tab 06/08/20 [Rx Confirmed 12/23/20] spironolactone 25 mg PO QAM #30 tab 06/08/20 [Rx Confirmed 12/23/20] famotidine 20 mg PO DAILY PRN 11/10/20 [History Confirmed 12/23/20] insulin asp prt-insulin aspart [Novolog Mix 70-30 U-100 Insuln] 0 unit SUBCUT BID PRN 11/10/20 [History Confirmed 12/23/20] omeprazole 20 mg PO DAILY 11/10/20 [History Confirmed 12/23/20] vitamin B complex-folic acid 1 tab PO DAILY 11/10/20 [History Confirmed 12/23/20] potassium chloride 10 meq PO BID #60 cap 11/13/20 [Rx Confirmed 12/23/20] chlordiazepoxide HCl 25 mg PO Q6H PRN #6 cap 12/10/20 [Rx Confirmed 12/23/20] mirtazapine 15 mg PO HS #30 tab 12/10/20 [Rx Confirmed 12/23/20] nystatin 5 ml PO QID #60 ml 12/10/20 [Rx Confirmed 12/23/20] Famotidine (Famotidine 20mg/5ml Iv Push) 20 mg IV ONE STA Stop: 12/23/20 12:03 Last Admin: 12/23/20 12:08 Dose: 20 mg Documented by: [id number] Multivitamins 10 ml/ Thiamine HCl 100 mg/ Folic Acid 1 mg/Sodium Chloride 1,011.2 mls @ 1,011.2 mls/hr IV .Q1H ONE Stop: 12/23/20 11:22 Last Infusion: 12/23/20 12:53 Dose: 0 mls/hr Documented by: [id number] Admin: 12/23/20 11:18 Dose: 1,011.2 mls/hr Documented by: [id number] Lorazepam (Ativan) 1 mg in 2 mls @ 2 mls/min IV NOW STA Stop: 12/23/20 10:46 Last Admin: 12/23/20 11:18 Dose: 2 mls/min Documented by: [id number] Ondansetron HCl (Ondansetron Inj 2 Mg/Ml 2 Ml Vial) 4 mg IV NOW STA Stop: 12/23/20 10:46 Last Admin: 12/23/20 11:18 Dose: 4 mg Documented by: [id number] Ondansetron HCl (Ondansetron Inj 2 Mg/Ml 2 Ml Vial) 4 mg IV NOW STA Stop: 12/23/20 12:03 Last Admin: 12/23/20 12:07 Dose: 4 mg Documented by: [id number] ECG Additional Comments: ECG: Pending on arrival Code Status & VTE Plan Code Status CODE: FULL VTE: SCD's, Heparin 5000 sq TID VTE Prophylaxis Plan VTE Prophylaxis will be ordered: Yes Supervising Physician Co-Signing Physician Notes MOHS SURGEON Supervision note: I have personally seen and examined the patient and discussed and verified the wood points of the history and physical along with the plan with URVASHI Christian with the following exceptions and/or additions: Patient is a 45-year-old female with a history of alcohol dependence, diet controlled DMII, and depression with anxiety. She presents yet again with request for detoxification and is contemplating inpatient alcohol rehab. She is having tremors and severe anxiety. She reports that the increased dose of mirtazapine since last admission is not helping and she is requesting assistance with treating her anxiety to keep her from drinking. History and ROS reviewed as above Vitals reviewed NAD, anxious, resting tremor RRR, no MGR CTAB, no WCR Abdomen positive bowel sounds, soft nontender nondistended, positive hepatomegaly with liver edge at 10 cm below costal margin Extremities no edema or calf tenderness, 2+ dorsalis pedis pulses Skin mild jaundice Laboratories reviewed Toe x-ray reviewed 45-year-old female here with alcohol dependence, with severe anxiety, alcohol intoxication, and request for detoxification -Increase mirtazapine to 30 mg at bedtime -Consult psychiatry for anxiety -Librium and gabapentin tapers, add on Ativan as needed Follow LFTs in the morning PG Care Time/CCT Total # of Minutes Spent Total Time Spent with Patient: Total time spent is greater than 50% in coordination of care (as documented) at patient's floor/unit and/or counseling patient: Coding Level of Care Code 10008 Initial Inpt Care Lvl 3 Diagnoses Alcohol withdrawal F10.230 Complication of substance-induced condition: uncomplicated Alcohol abuse F10.10 Alcoholic intoxication F10.929 Complication of substance-induced condition: with unspecified complication Metabolic acidosis E87.2 Acute alcoholic hepatitis K70.10 Thrombocytopenia D69.6 Leukopenia D72.819 Leukopenia type: unspecified GERD (gastroesophageal reflux disease) K21.9 Esophagitis presence: without esophagitis Anxiety F41.9 (1) Alcohol withdrawal Complication of substance-induced condition: uncomplicated Qualified Code(s): F10.230 - Alcohol dependence with withdrawal, uncomplicated (2) Alcoholic intoxication Complication of substance-induced condition: with unspecified complication Qualified Code(s): F10.929 - Alcohol use, unspecified with intoxication, unspecified (3) Leukopenia Leukopenia type: unspecified Qualified Code(s): D72.819 - Decreased white blood cell count, unspecified (4) GERD (gastroesophageal reflux disease) Esophagitis presence: without esophagitis Qualified Code(s): K21.9 - Gastro- esophageal reflux disease without esophagitis
[2020-12-23 13:57] LABS: Base Excess VBG -7.8 mEq/L; Oxygen Saturation VBG 88.6 %; pH VBG 7.34 (7.36-7.41)
--- NOTE | 2020-12-23 13:58 | XRay Report ---
LEFT FOURTH AND FIFTH TOES 2 VIEWS CLINICAL HISTORY: Fourth and fifth toe injury. FINDINGS: 3 views of the left fourth and fifth toes are obtained. No prior studies are available for comparison at the time of dictation. The skeletal structures are well mineralized. There is no radiog raphic evidence of fourth or fifth toe fracture. The joint spaces of the fourth and fifth toes are ma intained. Fusion of the fifth distal interphalangeal joint is incidentally noted. Mild soft tissue ed lotus overlies the fifth toe. IMPRESSION: No fracture is identified. Electronically signed by: Randell Lo M.D. 12/23/2020 1:57 PM
[2020-12-23] MEDS ORDERED: GABAPENTIN 800MG ALCOHOL WITHDRAWAL LOAD PO STA (17:31)
[2020-12-23] MEDS ORDERED: ALBUTEROL HFA 8 GM INHALER INH PRN (17:31)
[2020-12-23] MEDS ORDERED: FAMOTIDINE 20 MG TAB PO PRN (17:31)
[2020-12-23 17:57] LABS: Thyroid Stimulating Hormone 2.83 uIu/ml (0.300-4.500)
[2020-12-23] MEDS ORDERED: GABAPENTIN 400 MG CAP PO ONE (18:00)
[2020-12-23] MEDS: chlordiazePOXIDE HCl 25 MG CAP PO SCH ×2 (18:06→23:06)
[2020-12-23] MEDS: D5W AND LACTATED RINGERS 1,000 ML IV SCH (18:06)
[2020-12-23] MEDS: HEPARIN SOD 5,000 UNIT/0.5 ML VIAL SQ SCH ×2 (18:32→21:05)
[2020-12-23] MEDS: FOLIC ACID 1 MG TAB PO SCH (18:32)
[2020-12-23] MEDS: NYSTATIN SUSP 500,000 U/5 ML UDC PO SCH ×2 (18:32→21:06)
[2020-12-23] MEDS: THIAMINE HCL 300 MG in SODIUM CHLORIDE 0.9% 50 ML IV SCH (18:51)
[2020-12-23] MEDS ORDERED: MIRTAZAPINE TAB 15 MG TAB PO SCH (21:00)
[2020-12-23] MEDS: MIRTAZAPINE TAB 15 MG TAB PO SCH (21:26)
[2020-12-23] MEDS: DICLOFENAC SOD 1% GEL 100 GM TUBE EXT SCH (22:20)
[2020-12-23] MEDS: LIDOCAINE 5% 1 PATCH TD SCH (22:20)
[2020-12-23] MEDS: GABAPENTIN 400 MG CAP PO SCH (23:04)
--- NOTE | 2020-12-23 23:12 | Ultrasound Report ---
ULTRASOUND ASCITES CHECK CLINICAL HISTORY: Abdominal ascites. COMPARISON STUDY: Abdominal CT dated 05/26/2020. FINDINGS: Real-time grayscale sonography of all 4 quadrants of the abdomen was performed to assess fo r abdominal ascites. There is a small volume of abdominopelvic ascites. The largest pocket is seen in the right lower quadrant. The liver is enlarged and severely steatotic. Nodularity of the surface co ntour suggests early change of cirrhosis. The spleen is mildly enlarged measuring 13.5 cm in length. IMPRESSION: 1. There is a small volume of abdominopelvic ascites as above. 2. The liver is markedly enlarged, steatotic, and with early changes of cirrhosis. 3. Mild splenomegaly. Electronically signed by: Randell Lo M.D. 12/23/2020 11:11 PM
[2020-12-24] MEDS: D5W AND LACTATED RINGERS 1,000 ML IV SCH ×2 (03:05→13:08)
[2020-12-24] MEDS: chlordiazePOXIDE HCl 25 MG CAP PO SCH ×4 (05:14→23:35)
[2020-12-24] MEDS: GABAPENTIN 400 MG CAP PO SCH ×3 (05:15→21:06)
[2020-12-24] MEDS: HEPARIN SOD 5,000 UNIT/0.5 ML VIAL SQ SCH ×3 (05:15→21:06)
[2020-12-24 05:55] LABS: Appearance Urine Clear (Clear); Bacteria Urine Automated Negative (Negative); Blood Urine Negative (Negative); Color Urine Dark Yellow; Epithelial Cell Urine Auto >30 /lpf (0-5); Glucose Urine UA Negative (Negative); Ketones Urine 3+ (Negative); Leukocyte Esterase Urine Negative (Negative); Nitrite Urine Negative (Negative); Protein Urine Trace (Negative); Specific Gravity Urine 1.022 (1.000-1.030); Urobilinogen Urine Positive (Negative)
[2020-12-24 05:58] LABS: Bilirubin Urine 2+ (Negative)
[2020-12-24 06:14] LABS: Hematocrit (blood only) 32.1 % (37-47); Hemoglobin 10.9 g/dL (12.0-16.0); Mean Corpuscular Hemoglobin 31.3 pg (25-34); Mean Corpuscular Volume 92.2 fL (80-100); RDW Coefficient of Variation 16.4 % (11.5-14.5); RDW Standard Deviation 54.3 fL (36.4-46.3); Red Blood Count 3.48 M/uL (4.2-5.4); White Blood Count 1.98 K/uL (4.8-10.8)
[2020-12-24 06:17] LABS: Mean Platelet Volume 9.4 fL (7.4-10.4); Platelet Count 81 K/uL (130-400)
[2020-12-24 06:27] LABS: INR 1.4 (0.9-1.1)
[2020-12-24 06:30] LABS: RBC Urine Automated 0-4 /hpf (0-4)
[2020-12-24 06:48] LABS: Albumin Level 3.3 gm/dl (3.4-5.0); Calcium 9.3 mg/dl (8.5-10.1); Creatinine Clr Calc Pharmacy 94.1 ml/min; Est GFR (African American) 122.4 ml/min; Est GFR (Non-African American) 105.6 ml/min; Magnesium 1.7 mg/dl (1.8-2.4); Potassium 3.6 mmol/L (3.5-5.1)
[2020-12-24 06:53] LABS: Albumin Globulin Ratio 0.8 (0.9-2); Bilirubin,Total 1.7 mg/dl (0.2-1); Globulin 4.1 gm/dl (2.5-4.0); Phosphorus 1.9 mg/dl (2.5-4.9); Total Protein 7.4 gm/dl (6.4-8.2)
[2020-12-24 07:28] LABS: Basophils # (auto) 0.01 K/uL (0-0.2); Basophils % (auto) 0.5 %; Eosinophils # (auto) 0.02 K/uL (0-0.5); Lymphocytes % (auto) 45.5 %; Monocytes # (auto) 0.21 K/uL (0.11-0.59); Monocytes % (auto) 10.6 %; Neutrophils # (auto) 0.84 K/uL (1.4-6.5); Neutrophils % (auto) 42.4 %
[2020-12-24] MEDS ORDERED: FUROSEMIDE 20 MG TAB PO SCH (09:00)
[2020-12-24] MEDS ORDERED: SPIRONOLACTONE 25 MG TAB PO SCH (09:00)
[2020-12-24] MEDS: NYSTATIN SUSP 500,000 U/5 ML UDC PO SCH ×4 (09:05→20:46)
[2020-12-24] MEDS: THIAMINE HCL 300 MG in SODIUM CHLORIDE 0.9% 50 ML IV SCH (09:05)
[2020-12-24] MEDS: FOLIC ACID 1 MG TAB PO SCH (09:06)
[2020-12-24] MEDS: PANTOprazole 40 MG TAB PO SCH (09:06)
[2020-12-24] MEDS: DICLOFENAC SOD 1% GEL 100 GM TUBE EXT SCH ×2 (09:06→20:45)
[2020-12-24] MEDS: FLUTICASONE/VILANTEROL 200/25MCG 14 PUFFS/INHALER INH SCH (09:07)
[2020-12-24] MEDS ORDERED: POTASSIUM PHOS 3 MMOL/1 ML INFUSION IV STA (09:27)
[2020-12-24] MEDS ORDERED: POTASSIUM PHOSPHATE 15 MMOL in SODIUM CHLORIDE 0.9% 250 ML IV ONE (10:00)
[2020-12-24] MEDS: MAGNESIUM SULFATE / D5W 1 GM/100 ML BAG IV SCH ×2 (10:27→12:19)
--- NOTE | 2020-12-24 13:45 | Psychiatric Consultation ---
Date of Consultation December 24, 2020 Impression / Recommendations Impression 45-year-old woman currently in alcohol withdrawal after presenting intoxicated to the emergency department. Farm Instructor is familiar with patient from her last admission, and chart review shows that she has had several admissions for the same purpose. Patient is experiencing some anxiety, however is being treated with lorazepam according to the alcohol withdrawal protocol. Her anxiety is to be expected and is appropriate given her situation. Is is not indicated to start psychiatric medications for mood when patient is currently using and abusing a mood altering substance. She will need rehab placement, unfortunately this will have to be on a voluntary basis and patient remains with very poor insight and poor judgment. Recommendations: No psychiatric medications as patient is currently in a state of alcohol withdrawal or anxiety is to be expected. Due to the severity of her drinking and her continued use of alcohol despite being offered help, no additional psychiatric medications will be offered at this time. Please continue to strongly encourage rehab in this patient, she is currently agreeable. Inventory Assets Strengths: Intelligence Needs: Insight, desire to change Risk Factors Assessment Male: No : Yes Do You Have Access To A Gun?: No Health Problems: Yes Mental Health Diagnoses: No Substance Use Disorders: Yes Previous Attempt: No Hopelessness: No Protective Factors Assessment Stable Relationships: Yes Supportive Family: Yes Psych History Identifying Data 45-year-old woman known to our service from due to previous admissions, presents intoxicated to the emergency department now currently in alcohol withdrawal. Chief Complaint "I think I remember you". History of Present Illness HPI as per psychiatric liaison" Patient denies any suicidal ideations or self injurious behaviors. States she is no longer interested in rehab. Asked her if she changes her mind, to let staff know. She is known to our service, last seen within 30 days. Patient has been encouraged to reach out to outpatient providers during her last several admissions, however she states she has not done so. Patient states she has been having increasing anxiety and her financial struggles have been increasing. "I have things coming up that I need to pay for, but I don't know how I'm gonna do it." She has been living off of her pension, however states she does not know if she is able to pull out any more money from her pension. States she has thought about going back to work, but she becomes anxious and frustrated thinking about how to process and plan for changes that need to happen in her life. Primary RN states patient mentioned patient's daughter may be coming up to stay with her, but then mentioned patient may be moving in with her mother. Patient states she has been struggling with interrupted sleep, able to fall asleep, but not stay asleep. States her appetite has been varying and depends what food she has in the house. States she feels more tired than normal currently and is requesting to rest. " Upon evaluation this afternoon, patient endorsed the above information is accurate. She initially stated that she was not interested in rehab at this time. Long conversation was had with patient where copywriter detailed the numerous medical issues that she is experiencing as well as at risk for if her drinking continues. Farm Instructor also spoke to patient about the futility of her returning home and attempting to quit drinking on her own, as this has been evidenced to not be helpful. Together, we discussed her barriers for attending rehab and the insignificance of each of those barriers when compared to the severity of her illness and condition. By the end of the conversation patient was willing to agree to rehab placement as long as her insurance was able to cover the cost. Past Psychiatric History Do You Have Access To A Gun?: No Allergies Allergy/AdvReac Type Severity Reaction Status Date / Time theophylline AdvReac Unknown VERTIGO Verified 12/23/20 10:20 Home Medications Medication Instructions Recorded Confirmed Type fluticasone propion-salmeterol 1 inh INHALATION QAM 02/27/19 12/23/20 History [Advair Diskus] albuterol sulfate [Ventolin HFA] 2 puff INHALATION Q6H PRN 07/23/19 12/23/20 History multivitamin [Daily-Harris] 1 tab PO QAM #0 tab 07/27/19 12/23/20 Rx furosemide 20 mg PO QAM #30 tab 06/08/20 12/23/20 Rx spironolactone 25 mg PO QAM #30 tab 06/08/20 12/23/20 Rx famotidine 20 mg PO DAILY PRN 11/10/20 12/23/20 History insulin asp prt-insulin aspart 0 unit SUBCUT BID PRN 11/10/20 12/23/20 History [Novolog Mix 70-30 U-100 Insuln] omeprazole 20 mg PO DAILY 11/10/20 12/23/20 History vitamin B complex-folic acid 1 tab PO DAILY 11/10/20 12/23/20 History potassium chloride 10 meq PO BID #60 cap 11/13/20 12/23/20 Rx chlordiazepoxide HCl 25 mg PO Q6H PRN #6 cap 12/10/20 12/23/20 Rx mirtazapine 15 mg PO HS #30 tab 12/10/20 12/23/20 Rx nystatin 5 ml PO QID #60 ml 12/10/20 12/23/20 Rx Personal History Beliefs That Will Affect Care: None Patient History Medical History Alcohol abuse Anxiety Asthma Diabetes mellitus type 1 Surgical History History of dental surgery History of esophagogastroduodenoscopy (EGD) Family History Father Prediabetes Grandfather (Paternal) Diabetes Mother Hypertension MVP (mitral valve prolapse) Social History Smoking Status: Former smoker Tobacco Type: Cigarettes Age Quit Using Tobacco: 39; packs per day: 1; Years Smoked: 2; Number of Years Since Quit: 4; Second Hand Exposure: No; Do You Dip or Chew Tobacco: No; Tobacco Cessation Education Requested by Patient: No Hx Alcohol Use: Yes Alcohol type: hard liquor Alcohol type Comment: 4 glasses wine daily Hx Substance Use: No Preferred Language: Armenian Communication Ability: Effective Visual Impairment: No Limitations Weaver Dobby Loom Required: No Beliefs That Will Affect Care: None marital status: marital status details: Single parent Current Living Situation: Alone Current Living Situation Comment: 17 yo daughter lives with patient current occupational status: unemployed Other Information That Helps Us Care for You: No Feels Safe at Home: Yes Childhood Exposure to Second-Hand Smoke: No Assistive Devices: Glasses Physical Exam Psychiatric: Orientation: alert Apperance: appropriately groomed Eye Contact: + fair eye contact Motor Behavior: no abnormal motor movements Speech: normal rate/rhythm/volume of speech Affect: + depressed affect and + constricted affect Mood: + anxious mood Thought Process: goal directed thought process Thought Content: + cognitive distortions and reality based without delusions Suicidal Thoughts: denies suicidal thoughts Homicidal Thoughts: denies homicidal thoughts Hallucinations: no auditory hallucinations and no visual hallucinations Cognition: recent memory grossly intact Estimated Intelligence: consistent with education level Insight: + poor insight Judgement: + poor judgement Vital Signs (Past 24 Hours): Last Vital Signs Temp 37.1 C 12/24/20 05:47 Pulse 86 12/24/20 05:47 Resp 16 12/24/20 05:47 BP 116/68 12/24/20 05:47 Pulse Ox 97 12/24/20 05:47 Review of Systems All systems reviewed & are unremarkable except as noted in HPI & below Results & Data (PSY) Medications Administered Chlordiazepoxide HCl (Chlordiazepoxide Hcl 25 Mg Cap) 25 mg PO Q6 [facility] Stop: 01/22/21 17:59 Last Admin: 12/24/20 11:13 Dose: 25 mg Documented by: [id number] Admin: 12/24/20 05:14 Dose: 25 mg Documented by: [id number] Admin: 12/23/20 23:06 Dose: 25 mg Documented by: [id number] Admin: 12/23/20 18:06 Dose: 25 mg Documented by: [id number] Diclofenac Sodium (Diclofenac Sod 1% Gel 100 Gm Tube) 4 gm EXT BID [facility] Stop: 01/22/21 21:44 Last Admin: 12/24/20 09:06 Dose: Not Given Documented by: [id number] Admin: 12/23/20 22:20 Dose: Not Given Documented by: [id number] Fluticasone/Vilanterol (Fluticasone/Vilanterol 200/25mcg 14 Puffs/Inhaler) 1 puffs INH QAM [facility] Stop: 01/23/21 08:59 Last Admin: 12/24/20 09:07 Dose: 1 puffs Documented by: [id number] Folic Acid (Folic Acid 1 Mg Tab) 1 mg PO QAM [facility] Stop: 01/22/21 17:30 Last Admin: 12/24/20 09:06 Dose: 1 mg Documented by: [id number] Admin: 12/23/20 18:32 Dose: 1 mg Documented by: [id number] Gabapentin (Gabapentin 400 Mg Cap) 400 mg PO Q8H [facility] Stop: 12/25/20 06:01 Last Admin: 12/24/20 13:08 Dose: 400 mg Documented by: [id number] Heparin Sodium (Porcine) (Heparin Sod 5,000 Unit/0.5 Ml Vial) 5,000 units SQ Q8 [facility] Stop: 01/22/21 17:30 Last Admin: 12/24/20 13:10 Dose: 5,000 units Documented by: [id number] Admin: 12/24/20 05:15 Dose: 5,000 units Documented by: [id number] Admin: 12/23/20 21:05 Dose: 5,000 units Documented by: [id number] Admin: 12/23/20 18:32 Dose: 5,000 units Documented by: [id number] Dextrose/Lactated Ringer's (D5w And Lactated Ringers) 1,000 mls @ 100 mls/hr IV .Q10H [facility] Stop: 01/22/21 17:30 Last Admin: 12/24/20 13:08 Dose: 100 mls/hr Documented by: [id number] Infusion: 12/24/20 13:05 Dose: 100 mls/hr Documented by: [id number] Admin: 12/24/20 03:05 Dose: 100 mls/hr Documented by: [id number] Infusion: 12/24/20 03:05 Dose: 100 mls/hr Documented by: [id number] Admin: 12/23/20 18:06 Dose: 100 mls/hr Documented by: [id number] Thiamine HCl 300 mg/ Sodium (Chloride) 53 mls @ 208 mls/hr IV QAM [facility] Stop: 01/22/21 18:59 Last Infusion: 12/24/20 09:37 Dose: 0 mls/hr Documented by: [id number] Admin: 12/24/20 09:05 Dose: 208 mls/hr Documented by: [id number] Infusion: 12/23/20 19:50 Dose: 0 mls/hr Documented by: [id number] Admin: 12/23/20 18:51 Dose: 208 mls/hr Documented by: [id number] Magnesium Sulfate/Dextrose (Magnesium Sulfate / D5w) 1 gm in 100 mls @ 50 mls/hr IV Q2H [facility] Stop: 12/24/20 13:59 Last Admin: 12/24/20 12:19 Dose: 50 mls/hr Documented by: [id number] Infusion: 12/24/20 12:19 Dose: 50 mls/hr Documented by: [id number] Admin: 12/24/20 10:27 Dose: 50 mls/hr Documented by: [id number] Lidocaine (Lidocaine 5% 1 Patch) 1 patch TD HS [facility] Stop: 01/22/21 21:44 Last Admin: 12/23/20 22:20 Dose: 1 patch Documented by: [id number] Mirtazapine (Mirtazapine Tab 15 Mg Tab) 30 mg PO HS [facility] Stop: 01/22/21 20:59 Last Admin: 12/23/20 21:26 Dose: 30 mg Documented by: [id number] Miscellaneous (Remove Lidoderm Patch) 1 ea N/A QAM [facility] Stop: 01/23/21 08:59 Last Admin: 12/24/20 09:06 Dose: 1 ea Documented by: [id number] Nystatin (Nystatin Susp 500,000 U/5 Ml [facility] [place]) 5 ml PO QID [facility] Stop: 01/22/21 17:30 Last Admin: 12/24/20 13:08 Dose: 5 ml Documented by: [id number] Admin: 12/24/20 09:05 Dose: 5 ml Documented by: [id number] Admin: 12/23/20 21:06 Dose: 5 ml Documented by: [id number] Admin: 12/23/20 18:32 Dose: 5 ml Documented by: [id number] Pantoprazole Sodium (Pantoprazole 40 Mg Tab) 40 mg PO DAILY [facility] Stop: 01/23/21 08:59 Last Admin: 12/24/20 09:06 Dose: 40 mg Documented by: [id number] Coding Level of Care Code 81715 U Intl Hosp Care Lvl 2
[2020-12-24] MEDS: LORazepam 1 MG TAB PO PRN ×2 (16:18→18:17)
[2020-12-24] MEDS ORDERED: GLUCOSE 10 TABS/TUBE PO PRN (18:18)
[2020-12-24] MEDS ORDERED: CARBOHYDRATES FOR HYPOGLYCEMIA PO PRN (18:18)
[2020-12-24] MEDS ORDERED: DEXTROSE 50% 50 ML SYRINGE IV PRN (18:18)
[2020-12-24] MEDS ORDERED: GLUCAGON FOR INJ 1 MG VIAL SQ PRN (18:18)
[2020-12-24] MEDS ORDERED: GLUCOSE 40% GEL 15 GM TUBE PO PRN (18:18)
--- NOTE | 2020-12-24 19:21 | Hospitalist Progress Note ---
Date of Service December 24, 2020 Assessment & Plan (1) Alcohol withdrawal: Improving with gabapentin and Librium Continue supportive care with AAWS - Banana Bag x1 Liter in the EMD - Continue Thiamine 300mg IV daily and Folic Acid 1mg PO daily - Continue Librium 25mg PO q6 scheduled-taper to 3 times daily for tomorrow - Gabapentin AAWS with 800mg Load- patient has done well with this managment in the past -Patient is waffling back and forth between going to inpatient rehab, but I have continue to strongly encourage her to attend inpatient rehab as she has failed outpatient trials on numerous occasions. Psychiatry also has discussed this with her and at this time she is agreeable to inpatient rehab referrals (2) Alcohol abuse: As above- last drink [id number] at 2300 or so. - ETOH level- 343.6 on admission -AWSS protocol, ativan prn Librium and gabapentin tapers as above (3) Alcoholic intoxication: As above, resolved (4) Metabolic acidosis: HCO3 17 with AGAP of 19- VBG with PH of 7.34 and PaCO2 33- appropriate compensated primary metabolic acidosis all on admission Now improving - Base Deficit -7.8 consistent with hypovolemia/dehydration and likely Ketosis from poor intake - lactate 1.4 - Glucose 88 (which is low for patient)-on admission, now hyperglycemic with being on D5 and is eating more -Discontinue D5 LR -Start insulin sliding scale as needed (5) Acute alcoholic hepatitis: Patient is not encephalopathic, with no ascites appreciated on exam - Liver ultrasound with hepatosplenomegaly, no evidence of obstruction - hold home Lasix and spironolactone while volume down as above, giving IVFs, possibly restart diuretics in 1 to 2 days - INR 1.4 - MELD 14 - DF-12.5 - Child Schwartz- 6 - Ammonia normal - MCV 92 LFTs all improving Continue to encourage alcohol cessation (6) Thrombocytopenia: Platelet count 123 on admission down to 81 today Secondary to alcoholic cirrhosis, hepatosplenomegaly Follow CBC (7) Leukopenia: As above , Secondary to alcoholic cirrhosis On neutropenic precautions Follow CBC (8) GERD (gastroesophageal reflux disease): Continue with omeprazole and Famotidine (9) Anxiety: Continue with Mirtazapine qhs and increase to 30 mg - Librium and gabapentin - 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 -Appreciate psychiatry consultation (10) Anemia: Mild, normocytic Likely secondary to chronic disease (11) Asthma: No acute issues Continue Advair (12) Thrush: Continue nystatin Rinse mouth after Advair (13) Hypomagnesemia: Replace with IV magnesium Check mag levels in the morning (14) Hypophosphatemia: Replace with IV potassium phosphorus Check levels in the morning (15) DVT prophylaxis: Heparin SQ, would hold if platelets fall below 50 Disposition-continued stay, need to look into inpatient rehabs on Friday Admission and Anticipated Discharge Date Admission Date: December 23, 2020 Subjective Patient reports feeling better today. Tremors are improved. Took Ativan x2. Has decided to go to inpatient rehab. Seen by psychiatry today. No abdominal pain is moving bowels. Eating more today. Review of Systems Review of Systems: All systems reviewed & are unremarkable except as noted in HPI & below Physical Exam Constitutional: WD/WN, vitals as above Eyes: + anicteric sclerae ENMT: Mouth: + oropharynx abnormality (Oropharynx with diffuse white exudate on tongue and buccal mucosa) Neck: trachea midline, no thyromegaly Respiratory: normal respiratory effort, lungs clear to auscultation Cardiovascular: RRR, no murmur, no edema Chest (Breasts): Chest: normal inspection of chest Gastrointestinal (Abdomen): Inspection/Auscultation: abdomen normal to inspection and normal bowel sounds; abdomen not distended Percussion/P alpation: + hepatosplenomegaly Musculoskeletal: Extremities: extremities normal to inspection; no cyanosis and no clubbing Skin: + jaundice Neurologic: moves all extremities and awake; no focal motor deficits Psychiatric: A+Ox3, euthymic affect Lymphatic: no lymphedema Results & Data Results & Data ([facility]) Vital Signs (Past 12 Hours) Vital Signs Temp Pulse Resp BP Pulse Ox 12/24/20 18:11 37.3 C 115 H 18 108/68 91 12/24/20 16:07 37.4 C 100 H 18 120/74 92 Laboratory Results 12/24/20 12/24/20 12/24/20 Range/Units 17:12 12:25 08:09 WBC (4.8-10.8) K/uL RBC (4.2-5.4) M/uL Hgb (12.0-16.0) g/dL Hct (37-47) % MCV (80-100) fL MCH (25-34) pg MCHC (32-36) g/dL RDW Std Deviation (36.4-46.3) fL RDW Coeff of Suzanne (11.5-14.5) % Plt Count (130-400) K/uL MPV (7.4-10.4) fL Immature Gran % (Auto) % Neut % (Auto) % Lymph % (Auto) % [place] % (Auto) % Eos % (Auto) % Baso % (Auto) % Neut # (Auto) (1.4-6.5) K/uL Lymph # (Auto) (1.2-3.4) K/uL [place] # (Auto) (0.11-0.59) K/uL Eos # (Auto) (0-0.5) K/uL Baso # (Auto) (0-0.2) K/uL Immature Gran # (Auto) (0.00-0.02) K/uL PT (9.0-12.0) Seconds INR (0.9-1.1) Sodium (136-145) mmol/L Potassium (3.5-5.1) mmol/L Chloride (98-107) mmol/L Carbon Dioxide (21-32) mmol/L Anion Gap (3-11) BUN (7-18) mg/dl Creatinine (0.6-1.2) mg/dl Est Cr Clr Drug Dosing ml/min Est GFR ( Amer) ml/min Est GFR (Non-Af Amer) ml/min BUN/Creatinine Ratio (10-20) Glucose (70-99) mg/dl POC Glucose 254 H 148 H 116 H (70-99) mg/dl Calcium (8.5-10.1) mg/dl Phosphorus (2.5-4.9) mg/dl Magnesium (1.8-2.4) mg/dl Total Bilirubin (0.2-1) mg/dl AST (15-37) U/L ALT (12-78) U/L Alkaline Phosphatase (45-117) U/L Total Protein (6.4-8.2) gm/dl Albumin (3.4-5.0) gm/dl Globulin (2.5-4.0) gm/dl Albumin/Globulin Ratio (0.9-2) Urine Color Urine Appearance (Clear) Urine pH (4.5-7.5) Ur Specific Hope (1.000-1.030) Urine Protein (Negative) Urine Glucose (UA) (Negative) Urine Ketones (Negative) Urine Blood (Negative) Urine Nitrite (Negative) Urine Bilirubin (Negative) Urine Urobilinogen (Negative) Ur Leukocyte Esterase (Negative) Urine WBC (Auto) (0-5) /hpf Urine RBC (Auto) (0-4) /hpf U Hyaline Cast (Auto) (0-5) /lpf U Epithel Cells (Auto) (0-5) /lpf Urine Bacteria (Auto) (Negative) 12/24/20 12/24/20 12/24/20 Range/Units 05:52 05:52 05:52 WBC 1.98 L (4.8-10.8) K/uL RBC 3.48 L (4.2-5.4) M/uL Hgb 10.9 L (12.0-16.0) g/dL Hct 32.1 L (37-47) % MCV 92.2 (80-100) fL MCH 31.3 (25-34) pg MCHC 34.0 (32-36) g/dL RDW Std Deviation 54.3 H (36.4-46.3) fL RDW Coeff of Suzanne 16.4 H (11.5-14.5) % Plt Count 81 L (130-400) K/uL MPV 9.4 (7.4-10.4) fL Immature Gran % (Auto) 0.0 % Neut % (Auto) 42.4 % Lymph % (Auto) 45.5 % [place] % (Auto) 10.6 % Eos % (Auto) 1.0 % Baso % (Auto) 0.5 % Neut # (Auto) 0.84 L* (1.4-6.5) K/uL Lymph # (Auto) 0.90 L (1.2-3.4) K/uL [place] # (Auto) 0.21 (0.11-0.59) K/uL Eos # (Auto) 0.02 (0-0.5) K/uL Baso # (Auto) 0.01 (0-0.2) K/uL Immature Gran # (Auto) 0.00 (0.00-0.02) K/uL PT 14.0 H (9.0-12.0) Seconds INR 1.4 H (0.9-1.1) Sodium 139 (136-145) mmol/L Potassium 3.6 (3.5-5.1) mmol/L Chloride 103 (98-107) mmol/L Carbon Dioxide 23 (21-32) mmol/L Anion Gap 13.0 H (3-11) BUN 8 (7-18) mg/dl Creatinine 0.68 (0.6-1.2) mg/dl Est Cr Clr Drug Dosing 94.1 ml/min Est GFR ( Amer) 122.4 ml/min Est GFR (Non-Af Amer) 105.6 ml/min BUN/Creatinine Ratio 12.0 (10-20) Glucose 93 (70-99) mg/dl POC Glucose (70-99) mg/dl Calcium 9.3 (8.5-10.1) mg/dl Phosphorus 1.9 L D (2.5-4.9) mg/dl Magnesium 1.7 L (1.8-2.4) mg/dl Total Bilirubin 1.7 H (0.2-1) mg/dl AST 264 H (15-37) U/L ALT 56 (12-78) U/L Alkaline Phosphatase 193 H (45-117) U/L Total Protein 7.4 (6.4-8.2) gm/dl Albumin 3.3 L (3.4-5.0) gm/dl Globulin 4.1 H (2.5-4.0) gm/dl Albumin/Globulin Ratio 0.8 L (0.9-2) Urine Color Urine Appearance (Clear) Urine pH (4.5-7.5) Ur Specific [place] (1.000-1.030) Urine Protein (Negative) Urine Glucose (UA) (Negative) Urine Ketones (Negative) Urine Blood (Negative) Urine Nitrite (Negative) Urine Bilirubin (Negative) Urine Urobilinogen (Negative) Ur Leukocyte Esterase (Negative) Urine WBC (Auto) (0-5) /hpf Urine RBC (Auto) (0-4) /hpf U Hyaline Cast (Auto) (0-5) /lpf U Epithel Cells (Auto) (0-5) /lpf Urine Bacteria (Auto) (Negative) 12/24/20 12/23/20 Range/Units 05:25 20:53 WBC (4.8-10.8) K/uL RBC (4.2-5.4) M/uL Hgb (12.0-16.0) g/dL Hct (37-47) % MCV (80-100) fL MCH (25-34) pg MCHC (32-36) g/dL RDW Std Deviation (36.4-46.3) fL RDW Coeff of Suzanne (11.5-14.5) % Plt Count (130-400) K/uL MPV (7.4-10.4) fL Immature Gran % (Auto) % Neut % (Auto) % Lymph % (Auto) % [place] % (Auto) % Eos % (Auto) % Baso % (Auto) % Neut # (Auto) (1.4-6.5) K/uL Lymph # (Auto) (1.2-3.4) K/uL [place] # (Auto) (0.11-0.59) K/uL Eos # (Auto) (0-0.5) K/uL Baso # (Auto) (0-0.2) K/uL Immature Gran # (Auto) (0.00-0.02) K/uL PT (9.0-12.0) Seconds INR (0.9-1.1) Sodium (136-145) mmol/L Potassium (3.5-5.1) mmol/L Chloride (98-107) mmol/L Carbon Dioxide (21-32) mmol/L Anion Gap (3-11) BUN (7-18) mg/dl Creatinine (0.6-1.2) mg/dl Est Cr Clr Drug Dosing ml/min Est GFR ( Amer) ml/min Est GFR (Non-Af Amer) ml/min BUN/Creatinine Ratio (10-20) Glucose (70-99) mg/dl POC Glucose 94 (70-99) mg/dl Calcium (8.5-10.1) mg/dl Phosphorus (2.5-4.9) mg/dl Magnesium (1.8-2.4) mg/dl Total Bilirubin (0.2-1) mg/dl AST (15-37) U/L ALT (12-78) U/L Alkaline Phosphatase (45-117) U/L Total Protein (6.4-8.2) gm/dl Albumin (3.4-5.0) gm/dl Globulin (2.5-4.0) gm/dl Albumin/Globulin Ratio (0.9-2) Urine Color Dark Yellow Urine Appearance Clear (Clear) Urine pH 6.0 (4.5-7.5) Ur Specific [place] 1.022 (1.000-1.030) Urine Protein Trace H (Negative) Urine Glucose (UA) Negative (Negative) Urine Ketones 3+ H (Negative) Urine Blood Negative (Negative) Urine Nitrite Negative (Negative) Urine Bilirubin 2+ H (Negative) Urine Urobilinogen Positive H (Negative) Ur Leukocyte Esterase Negative (Negative) Urine WBC (Auto) 1-5 (0-5) /hpf Urine RBC (Auto) 0-4 (0-4) /hpf U Hyaline Cast (Auto) 1-5 (0-5) /lpf U Epithel Cells (Auto) >30 H (0-5) /lpf Urine Bacteria (Auto) Negative (Negative) PG Care Time/CCT Total # of Minutes Spent Total Time Spent with Patient: Total time spent is greater than 50% in coordination of care (as documented) at patient's floor/unit and/or counseling patient: Coding Level of Care Code 02176 Subseq Hosp Care Lvl 3 Diagnoses Alcohol withdrawal F10.230 Complication of substance-induced condition: uncomplicated Alcohol abuse F10.10 Alcoholic intoxication F1. Complication of substance-induced condition: with unspecified complication Metabolic acidosis E87.2 Acute alcoholic hepatitis K70.10 Thrombocytopenia D69.6 Leukopenia D72.819 Leukopenia type: unspecified GERD (gastroesophageal reflux disease) K21.9 Esophagitis presence: without esophagitis Anxiety F41.9 Anemia D64.9 Asthma J45.909 Asthma severity: unspecified severity Asthma persistence: unspecified Asthma complication type: unspecified Thrush B37.0 Hypomagnesemia E83.42 Hypophosphatemia E83.39 DVT prophylaxis Z29.9 (1) Alcohol withdrawal Complication of substance-induced condition: uncomplicated Qualified Code(s): F10.230 - Alcohol dependence with withdrawal, uncomplicated (2) Alcoholic intoxication Complication of substance-induced condition: with unspecified complication Qualified Code(s): F10.929 - Alcohol use, unspecified with intoxication, unspecified (3) Leukopenia Leukopenia type: unspecified Qualified Code(s): D72.819 - Decreased white blood cell count, unspecified (4) GERD (gastroesophageal reflux disease) Esophagitis presence: without esophagitis Qualified Code(s): K21.9 - Gastro- esophageal reflux disease without esophagitis (5) Asthma Asthma severity: unspecified severity Asthma persistence: unspecified Asthma complication type: unspecified Qualified Code(s): J45.909 - Unspecified asthma, uncomplicated
[2020-12-24] MEDS: LIDOCAINE 5% 1 PATCH TD SCH (20:45)
[2020-12-24] MEDS: MIRTAZAPINE TAB 15 MG TAB PO SCH (20:48)
[2020-12-24] MEDS: INSULIN ASPART 100 UNITS/ML 3 ML PEN SC SCH (21:06)
--- NOTE | 2020-12-25 00:35 | Electrocardiogram Report ---
Test Reason : Blood Pressure : / mmHG Vent. Rate : 092 BPM Atrial Rate : 092 BPM P-R Int : 146 ms QRS Dur : 086 ms QT Int : 374 ms P-R-T Axes : 058 055 035 degrees QTc Int : 462 ms Normal sinus rhythm Normal ECG When compared with ECG of 08-DEC-2020 18:47, No significant change was found Confirmed by Kevin Lambert ([id number]) on 12/25/2020 12:34:41 AM Referred By: REFERRED SELF Confirmed By:Kevin Lambert
[2020-12-25] MEDS: HEPARIN SOD 5,000 UNIT/0.5 ML VIAL SQ SCH (05:30)
[2020-12-25] MEDS: GABAPENTIN 400 MG CAP PO SCH ×2 (05:30→17:58)
[2020-12-25] MEDS: chlordiazePOXIDE HCl 25 MG CAP PO SCH ×3 (05:30→21:39)
[2020-12-25 06:19] LABS: Hematocrit (blood only) 33.3 % (37-47); Hemoglobin 10.8 g/dL (12.0-16.0); Mean Corpuscular Hemoglobin 30.8 pg (25-34); Mean Corpuscular Hgb Conc 32.4 g/dL (32-36); Mean Corpuscular Volume 94.9 fL (80-100); RDW Coefficient of Variation 16.5 % (11.5-14.5); RDW Standard Deviation 56.8 fL (36.4-46.3); Red Blood Count 3.51 M/uL (4.2-5.4); White Blood Count 2.02 K/uL (4.8-10.8)
[2020-12-25 06:30] LABS: INR 1.5 (0.9-1.1); Prothrombin Time 14.6 Seconds (9.0-12.0)
[2020-12-25 06:33] LABS: Mean Platelet Volume 9.8 fL (7.4-10.4); Platelet Count 63 K/uL (130-400)
[2020-12-25 06:47] LABS: Basophils # (auto) 0.03 K/uL (0-0.2); Basophils % (auto) 1.5 %; Eosinophils # (auto) 0.02 K/uL (0-0.5); Lymphocytes # (auto) 0.68 K/uL (1.2-3.4); Lymphocytes % (auto) 33.7 %; Monocytes # (auto) 0.22 K/uL (0.11-0.59); Monocytes % (auto) 10.9 %; Neutrophils # (auto) 1.07 K/uL (1.4-6.5); Neutrophils % (auto) 52.9 %
[2020-12-25 07:01] LABS: Albumin Level 3.3 gm/dl (3.4-5.0); BUN Creatinine Ratio 8.7 (10-20); Calcium 9.5 mg/dl (8.5-10.1); Creatinine Clr Calc Pharmacy 87.7 ml/min; Est GFR (African American) 115.3 ml/min; Est GFR (Non-African American) 99.5 ml/min; Potassium 3.3 mmol/L (3.5-5.1)
[2020-12-25 07:12] LABS: Albumin Globulin Ratio 0.9 (0.9-2); Bilirubin,Total 2.4 mg/dl (0.2-1); Globulin 3.6 gm/dl (2.5-4.0); Phosphorus 1.4 mg/dl (2.5-4.9); Total Protein 6.9 gm/dl (6.4-8.2)
[2020-12-25] MEDS: DICLOFENAC SOD 1% GEL 100 GM TUBE EXT SCH ×2 (08:19→21:34)
[2020-12-25] MEDS: FLUTICASONE/VILANTEROL 200/25MCG 14 PUFFS/INHALER INH SCH (08:20)
[2020-12-25] MEDS: PANTOprazole 40 MG TAB PO SCH (08:21)
[2020-12-25] MEDS: NYSTATIN SUSP 500,000 U/5 ML UDC PO SCH ×4 (08:21→21:34)
[2020-12-25] MEDS: FOLIC ACID 1 MG TAB PO SCH (08:21)
[2020-12-25] MEDS: INSULIN ASPART 100 UNITS/ML 3 ML PEN SC SCH ×4 (09:04→21:39)
[2020-12-25] MEDS: THIAMINE HCL 300 MG in SODIUM CHLORIDE 0.9% 50 ML IV SCH (09:05)
[2020-12-25] MEDS ORDERED: POTASSIUM CHLORIDE CRTAB 20 MEQ TABCR PO ONE (14:00)
--- NOTE | 2020-12-25 14:04 | Hospitalist Progress Note ---
Date of Service December 25, 2020 Assessment & Plan (1) Alcohol withdrawal: * stable with gabapentin and Librium. continue taper per protocol with continued AWSS monitorring * patient received a banana bag in the ED. Convert to oral thiamine. Add MVI and continue folic acid * patient agreeable to inpatient rehab at this time. Case mgmt on board to help facilitate. (2) Thrombocytopenia: * 4T score 4 (low to intermediate risk of HIT). * STOP HEPARIN. Patient has SCD's for DVT prophylaxis and is auto-anticoagulated given her ETOHic cirrhosis * continue to monitor (patient actually pancytopenic- which is chronic with an acute component). D/C IVF as may had dilutional component. see below (3) Hypomagnesemia: * replaced/resolved. continue to monitor (4) Pancytopenia: * likely d/t ETOHic cirrhosis. * Acute on chronic-- likely dilutional component. * D/C IVF and continue to trend (5) Electrolyte abnormality: * hypokalemia- will replace * hypophosphotemia- continue to trend. if <1.0, will replaced with IV Kphos (6) Alcohol abuse: * case mgmt on board to guide with disposition to Inpatient rehab * patient's concern is that upon D/C, she "needs to go to her house first to get some things". Lengthy D/W patient that it would be in her best interest to have her daughter bring the items needed/desired as her risk of not following through with rehab is high should she go home first (high risk of drinking being in this environment without the proper "tools" needed to cope with this illness). Patient admits to failing multiple OP treatments in the past. She voices unerstanding (7) Metabolic acidosis: * anion gap has since closed. It is possible that patient was in mild euglycemic DKA upon presentation (however, no symptoms reported). No acetone. Treatment would have been aggressive fluid mgmt (which she received) and her anion Gap has since closed. Patient remains on Novolog. Thus far, BS today are acceptable (182 - 152 - 157) * continue to monitor (8) Elevated INR: * patient auto-anticoagulated (likely from underlying ETOHic cirrhosis). * Stop heparin given drop in plt count as discussed above * continue to monitor labs (9) GERD (gastroesophageal reflux disease): * Continue with omeprazole and Famotidine (10) Anxiety: * on routine remeron. This was increased to 30mg. Seen by comfort who offers no additional suggestions at this time * in all honesty, it is unrealistic to alter/change psych meds during this time (as is it common for her to experience anxiety simply with the acute w/d process). * This is something that should be addressed with her acute IP rehab process. Further med changes will be deferred at this time. (11) Anemia: * As stated above, patient actually pancytopenic. * Pancytopenia likely related to underlying cirrhosis. Acute component likely dilutional. IV hydration has been stopped (12) Asthma: No acute issues Continue Advair (13) DVT prophylaxis: Patient has SCDs for DVT prophylaxis. We will hold further heparin given thrombocytopenia. Patient is auto anticoagulated likely given her cirrhosis. I have encouraged ambulation Disposition-awaiting authorization for [facility] (14) Cirrhosis: (15) Diabetes mellitus type 1: Admission and Anticipated Discharge Date Admission Date: December 23, 2020 Subjective Patient seen on daily rounds today. She is a 45 y/o WF admitted on 12/23/20 for acute ETOH Withdrawal (mild) as her last drink was just before midnight [employer]. H/O ETOH cirrhosis, recurrent pancreatitis, anxiety, DM and DKA. Her anion gap was open upon initial presentation (19.0) with a normal serum glucose of 116. Her US did show 3+ ketones. Venous blood gas was acceptable. Her anion gap has normalized with IVF. Is complaining of generalized weakness in her legs. Requesting to be able to walk the halls independently. Believes that she is able. She is on Librium/Gabapentin taper. AWSS score is 2-3. She has been mildly tachycardic (106). BP slightly low at 99/56 (baseline per patient). Denies dizziness, lightheadedness, tremors, diaphoresis, CP, SOB, abd pain, N/V, D. She has tried multiple OP rehabs programs in the past without success. Today, is agreeable and willing to try inpatient rehab. Case mgmt on board. Patient remains pancytopenic (chronic). Plt count dropping (63 today). On heparin for DVT prophylaxis. WBC low but stable with an ANC of 1068. potassium low at 3.3. Phosphorus low at 1.4. Review of Systems Review of Systems: Denies dizziness, lightheadedness, fevers, chills, diaphoresis, tremulous activity, headache, nasal congestion, sore throat, cough, chest pain, shortness of breath, abdominal pain, nausea, vomiting, GI/ symptomatology. Physical Exam Physical Exam: General: Resting comfortably at her bedside. [A&O X3][NAD.] No active signs of withdrawal (no tremulous activity/diaphoresis). Cardiac: RRR with a current rate of 96 bpm [without M/G/R] Lungs:[CTA][without W/R/R] Abdomen:[Normoactive X4.][Soft and nontender in all quadrants.] Extremities: [No peripheral clubbing cyanosis or edema] Neuro: A&O X4. CN II through XII grossly intact. No focal deficit deficits. Results & Data Results & Data ([facility]) Vital Signs (Past 12 Hours) Vital Signs Temp Pulse Resp BP BP Pulse Ox 12/25/20 09:14 37.0 C 106 H 16 99/65 L 92 12/25/20 04:03 36.9 C 97 H 18 97/62 L 92 Laboratory Results 12/25/20 05:48 12/25/20 05:48 ANC: 1068 Phosphorus: 1.4 PT/INR: 14.6/1.5 Total bilirubin: 2.4 AST: 201 ALT: 47 alk phos: 193 PG Care Time/CCT Total # of Minutes Spent Total Time Spent with Patient: Total time spent is greater than 50% in coordination of care (as documented) at patient's floor/unit and/or counseling patient: [place] [address] Subseq Hosp Care Lvl 2 Patient Type Established History Expanded Problem Focused Exam Expanded Problem Focused Medical Decision Making Moderate Complexity Diagnoses Alcohol withdrawal F10.230 Complication of substance-induced condition: uncomplicated Thrombocytopenia D69.6 Hypomagnesemia E83.42 Pancytopenia D61.818 Electrolyte abnormality E87.8 Alcohol abuse F10.10 Metabolic acidosis E87.2 Elevated INR R79.1 GERD (gastroesophageal reflux disease) K21.9 Esophagitis presence: without esophagitis Anxiety F41.9 Anemia D64.9 Asthma J45.909 Asthma complication type: unspecified Asthma persistence: unspecified Asthma severity: unspecified severity DVT prophylaxis Z29.9 Cirrhosis K70.30 Hepatic cirrhosis type: alcoholic cirrhosis Ascites presence: unspecified Diabetes mellitus type 1 E10.9 Diabetes mellitus complication status: without complication (1) Alcohol withdrawal Complication of substance-induced condition: uncomplicated Qualified Code(s): F10.230 - Alcohol dependence with withdrawal, uncomplicated (2) GERD (gastroesophageal reflux disease) Esophagitis presence: without esophagitis Qualified Code(s): K21.9 - Gastro- esophageal reflux disease without esophagitis (3) Asthma Asthma complication type: unspecified Asthma persistence: unspecified Asthma severity: unspecified severity Qualified Code(s): J45.909 - Unspecified asthma, uncomplicated (4) Cirrhosis Hepatic cirrhosis type: alcoholic cirrhosis Ascites presence: unspecified Qualified Code(s): K70.30 - Alcoholic cirrhosis of liver without ascites (5) Diabetes mellitus type 1 Diabetes mellitus complication status: without complication Qualified Code(s): E10.9 - Type 1 diabetes mellitus without complications
[2020-12-25] MEDS: LIDOCAINE 5% 1 PATCH TD SCH (21:34)
[2020-12-25] MEDS: MIRTAZAPINE TAB 15 MG TAB PO SCH (21:36)
[2020-12-26] MEDS: chlordiazePOXIDE HCl 25 MG CAP PO SCH ×3 (06:00→20:59)
[2020-12-26] MEDS: GABAPENTIN 400 MG CAP PO SCH (06:00)
[2020-12-26 06:36] LABS: Hematocrit (blood only) 32.8 % (37-47); Hemoglobin 11.1 g/dL (12.0-16.0); Mean Corpuscular Hemoglobin 31.9 pg (25-34); Mean Corpuscular Hgb Conc 33.8 g/dL (32-36); Mean Corpuscular Volume 94.3 fL (80-100); RDW Coefficient of Variation 16.9 % (11.5-14.5); RDW Standard Deviation 57.9 fL (36.4-46.3); Red Blood Count 3.48 M/uL (4.2-5.4); White Blood Count 2.24 K/uL (4.8-10.8)
[2020-12-26 06:49] LABS: INR 1.6 (0.9-1.1); Mean Platelet Volume 9.9 fL (7.4-10.4); Platelet Count 50 K/uL (130-400); Prothrombin Time 15.3 Seconds (9.0-12.0)
[2020-12-26 06:59] LABS: Basophils # (auto) 0.02 K/uL (0-0.2); Basophils % (auto) 0.9 %; Eosinophils # (auto) 0.05 K/uL (0-0.5); Eosinophils % (auto) 2.2 %; Lymphocytes % (auto) 31.3 %; Monocytes % (auto) 8.9 %; Neutrophils # (auto) 1.27 K/uL (1.4-6.5); Neutrophils % (auto) 56.7 %; RBC Morphology Unremarkable
[2020-12-26 07:21] LABS: Albumin Globulin Ratio 0.8 (0.9-2); Albumin Level 3.1 gm/dl (3.4-5.0); BUN Creatinine Ratio 9.3 (10-20); Bilirubin,Total 2.1 mg/dl (0.2-1); Calcium 9.3 mg/dl (8.5-10.1); Est GFR (African American) 123.6 ml/min; Est GFR (Non-African American) 106.7 ml/min; Globulin 3.7 gm/dl (2.5-4.0); Phosphorus 1.5 mg/dl (2.5-4.9); Potassium 3.7 mmol/L (3.5-5.1); Total Protein 6.8 gm/dl (6.4-8.2)
[2020-12-26] MEDS: DICLOFENAC SOD 1% GEL 100 GM TUBE EXT SCH ×2 (07:43→21:00)
[2020-12-26] MEDS: NYSTATIN SUSP 500,000 U/5 ML UDC PO SCH ×5 (07:45→21:38)
[2020-12-26] MEDS: PANTOprazole 40 MG TAB PO SCH (07:47)
[2020-12-26] MEDS: FOLIC ACID 1 MG TAB PO SCH (07:47)
[2020-12-26] MEDS: MULTIVITAMIN TAB PO SCH (07:47)
[2020-12-26] MEDS: THIAMINE HCL 100 MG TAB PO SCH (07:48)
[2020-12-26] MEDS: FLUTICASONE/VILANTEROL 200/25MCG 14 PUFFS/INHALER INH SCH (07:48)
[2020-12-26] MEDS: INSULIN ASPART 100 UNITS/ML 3 ML PEN SC SCH ×4 (08:47→20:58)
[2020-12-26] MEDS ORDERED: FOLIC ACID 1 MG TAB PO SCH (09:00)
[2020-12-26] MEDS ORDERED: POTASSIUM PHOS 3 MMOL/1 ML INFUSION IV STA (12:57)
[2020-12-26] MEDS ORDERED: POTASSIUM PHOSPHATE 9 MMOL in SODIUM CHLORIDE 0.9% 250 ML IV ONE (13:15)
--- NOTE | 2020-12-26 14:19 | Hospitalist Progress Note ---
Date of Service December 26, 2020 Assessment & Plan (1) Alcohol withdrawal: * stable with gabapentin and Librium. continue taper per protocol with continued AWSS monitorring. Patient likely having reports of somnolence due to Librium/gabapentin but currently is not displaying any S/S of acute alcohol withdrawal. Gabapentin to be down titrated which will likely help with * patient received a banana bag in the ED. Convert to oral thiamine. Add MVI and continue folic acid * patient agreeable to inpatient rehab at this time. Case mgmt on board to help facilitate. * Apparently inpatient rehab will not accept patient until she is "medically stable". She has been hospitalized now for 72 hours and her AWSS score is 0. Her lab data is chronic/stable and no reason to keep patient hospitalized. S he can have follow-up lab work as an outpatient to trend her platelet count. Will supplement phosphorus IV although patient chronically low and likely related to chronic alcohol abuse. Pending she is still agreeable to go and her lab work remains stable with low JAMESON scoreno reason why she cannot be discharged within the next 18-24 hours (2) Thrombocytopenia: * 4T score 4 (low to intermediate risk of HIT). * Heparin has since been stopped. Patient has SCD's for DVT prophylaxis and is auto-anticoagulated given her ETOHic cirrhosis * continue to monitor (patient actually pancytopenic- which is chronic with an acute component). Likely related to underlying chronic liver disease (3) Hypomagnesemia: * replaced/resolved. continue to monitor (4) Pancytopenia: * likely d/t ETOHic cirrhosis. * Acute on chronic-- likely dilutional component. * IV fluids have since been stopped. Levels stable (5) Electrolyte abnormality: * hypokalemia-replaced/resolved * hypophosphotemia-remains chronically low. Will give K-Phos today (6) Alcohol abuse: * case mgmt on board to guide with disposition to Inpatient rehab (7) Metabolic acidosis: * anion gap has since closed. It is possible that patient was in mild euglycemic DKA upon presentation (however, no symptoms reported). No acetone. Anion gap has closed with IV fluids. Her gap has remained closed (8) Elevated INR: * patient auto-anticoagulated (likely from underlying ETOHic cirrhosis). * Heparin stopped as discussed above * continue to monitor labs (9) GERD (gastroesophageal reflux disease): * Continue with omeprazole and Famotidine (10) Anxiety: * on routine remeron. This was increased to 30mg. Seen by comfort who offers no additional suggestions at this time * in all honesty, it is unrealistic to alter/change psych meds during this time (as is it common for her to experience anxiety simply with the acute w/d process). * This is something that should be addressed with her acute IP rehab process. Further med changes will be deferred at this time. (11) Anemia: * As stated above, patient actually pancytopenic. * Pancytopenia likely related to underlying cirrhosis. Acute component likely dilutional. IV hydration has been stopped (12) Asthma: No acute issues Continue Advair (13) DVT prophylaxis: Patient has SCDs for DVT prophylaxis. We will hold further heparin given thrombocytopenia. Patient is auto anticoagulated likely given her cirrhosis. I have encouraged ambulation Disposition-awaiting authorization for [facility] recovery (14) Cirrhosis: Chronic (15) Diabetes mellitus type 1: Continue insulin and blood sugar monitoring. BS: 231, 157, 152, 252, 174, and 221. Plan of care will be discussed with Dr. Vega. Further orders as warranted Admission and Anticipated Discharge Date Admission Date: December 23, 2020 Subjective Patient seen on daily rounds today. Initially agitated/frustrated with the "people coming in and out of the room to assess her". Wants to be able to "talk with her family on the phone and be left alone". She complains of being tired today but otherwise vocalizes no complaints. Denies tremors, diaphoresis, palpitations, chest pain, shortness of breath, abdominal pain, nausea or vomiting. Nursing voices no issues with agitation. Despite patient's frustration, she is being cooperative. Still agreeable to inpatient rehabilitation. Phosphorus level remains low at 1.5 today The rest of her lab data remains stable. AWSS score is 0 Review of Systems Review of Systems: Reports mild somnolence but otherwise, denies fevers, chills, diaphoresis, tremors, headache, nasal congestion, sore throat, cough, chest pain, shortness of breath, abdominal pain, nausea, vomiting, GI/ symptomatology. Physical Exam Physical Exam: General: Resting comfortably in her hospital bed. She is not excessively somnolent/obtunded. She is conversant and appropriate. A&O X3 NAD. Cardiac: RRR with 1/6 to 2/6 CARLOS Lungs: CTA without W/R/R Abdomen: Normoactive X4. Soft and nontender in all quadrants. Extremities: No peripheral clubbing cyanosis or edema Results & Data Results & Data ([facility]) Vital Signs (Past 12 Hours) Vital Signs Temp Pulse Resp BP Pulse Ox 12/26/20 08:26 37.0 C 95 H 16 108/74 94 Laboratory Results 12/26/20 06:04 12/26/20 06:04 TB: 2.1 AST: 150 ALT: 40 Alk phos: 178 INR: 1.6 Anion gap: 5.0 Phosphorus: 1.5 PG Care Time/CCT Total # of Minutes Spent Total Time Spent with Patient: Total time spent is greater than 50% in co ordination of care (as documented) at patient's floor/unit and/or counseling patient: Coding [place] [address] Subseq Hosp Care Lvl 2 Patient Type Established History Expanded Problem Focused Exam Expanded Problem Focused Medical Decision Making Moderate Complexity Diagnoses Alcohol withdrawal F10.230 Complication of substance-induced condition: uncomplicated Thrombocytopenia D69.6 Hypomagnesemia E83.42 Pancytopenia D61.818 Electrolyte abnormality E87.8 Alcohol abuse F10.10 Metabolic acidosis E87.2 Elevated INR R79.1 GERD (gastroesophageal reflux disease) K21.9 Esophagitis presence: without esophagitis Anxiety F41.9 Anemia D64.9 Asthma J45.909 Asthma severity: unspecified severity Asthma persistence: unspecified Asthma complication type: unspecified DVT prophylaxis Z29.9 Cirrhosis K70.30 Hepatic cirrhosis type: alcoholic cirrhosis Ascites presence: unspecified Diabetes mellitus type 1 E10.9 Diabetes mellitus complication status: without complication (1) Alcohol withdrawal Complication of substance-induced condition: uncomplicated Qualified Code(s): F10.230 - Alcohol dependence with withdrawal, uncomplicated (2) GERD (gastroesophageal reflux disease) Esophagitis presence: without esophagitis Qualified Code(s): K21.9 - Gastro- esophageal reflux disease without esophagitis (3) Asthma Asthma severity: unspecified severity Asthma persistence: unspecified Asthma complication type: unspecified Qualified Code(s): J45.909 - Unspecified asthma, uncomplicated (4) Cirrhosis Hepatic cirrhosis type: alcoholic cirrhosis Ascites presence: unspecified Qualified Code(s): K70.30 - Alcoholic cirrhosis of liver without ascites (5) Diabetes mellitus type 1 Diabetes mellitus complication status: without complication Qualified Code(s): E10.9 - Type 1 diabetes mellitus without complications
[2020-12-26] MEDS: LIDOCAINE 5% 1 PATCH TD SCH (21:00)
[2020-12-26] MEDS: MIRTAZAPINE TAB 15 MG TAB PO SCH (21:13)
[2020-12-27] MEDS: LORazepam 1 MG TAB PO PRN (00:46)
[2020-12-27] MEDS: chlordiazePOXIDE HCl 25 MG CAP PO SCH ×2 (05:59→18:10)
[2020-12-27] MEDS ORDERED: GABAPENTIN 400 MG CAP PO SCH (06:00)
[2020-12-27] MEDS: INSULIN ASPART 100 UNITS/ML 3 ML PEN SC SCH ×3 (09:34→18:21)
[2020-12-27] MEDS: FLUTICASONE/VILANTEROL 200/25MCG 14 PUFFS/INHALER INH SCH (09:39)
[2020-12-27] MEDS: THIAMINE HCL 100 MG TAB PO SCH (09:39)
[2020-12-27] MEDS: FOLIC ACID 1 MG TAB PO SCH (09:39)
[2020-12-27] MEDS: NYSTATIN SUSP 500,000 U/5 ML UDC PO SCH ×3 (09:39→18:58)
[2020-12-27] MEDS: MULTIVITAMIN TAB PO SCH (09:39)
[2020-12-27] MEDS: DICLOFENAC SOD 1% GEL 100 GM TUBE EXT SCH (09:39)
[2020-12-27] MEDS: PANTOprazole 40 MG TAB PO SCH (09:44)
[2020-12-27 09:46] LABS: Hematocrit (blood only) 33.5 % (37-47); Hemoglobin 10.9 g/dL (12.0-16.0); Mean Corpuscular Hemoglobin 31.5 pg (25-34); Mean Corpuscular Hgb Conc 32.5 g/dL (32-36); Mean Corpuscular Volume 96.8 fL (80-100); RDW Coefficient of Variation 17.7 % (11.5-14.5); RDW Standard Deviation 61.7 fL (36.4-46.3); Red Blood Count 3.46 M/uL (4.2-5.4); White Blood Count 2.35 K/uL (4.8-10.8)
[2020-12-27 10:04] LABS: Mean Platelet Volume 10.2 fL (7.4-10.4); Platelet Count 53 K/uL (130-400)
[2020-12-27 10:07] LABS: Basophils # (auto) 0.02 K/uL (0-0.2); Basophils % (auto) 0.9 %; Eosinophils # (auto) 0.05 K/uL (0-0.5); Eosinophils % (auto) 2.1 %; Immature Granulocytes # (auto) 0.01 K/uL (0.00-0.02); Immature Granulocytes % (auto) 0.4 %; Lymphocytes % (auto) 29.8 %; Monocytes # (auto) 0.29 K/uL (0.11-0.59); Monocytes % (auto) 12.3 %; Neutrophils # (auto) 1.28 K/uL (1.4-6.5); Neutrophils % (auto) 54.5 %; Rouleaux 1+
[2020-12-27 10:22] LABS: Albumin Globulin Ratio 0.8 (0.9-2); BUN Creatinine Ratio 14.3 (10-20); Bilirubin,Total 2.1 mg/dl (0.2-1); Calcium 9.8 mg/dl (8.5-10.1); Creatinine Clr Calc Pharmacy 114.3 ml/min; Est GFR (African American) 130.5 ml/min; Est GFR (Non-African American) 112.6 ml/min; Globulin 3.9 gm/dl (2.5-4.0); Potassium 3.9 mmol/L (3.5-5.1); Total Protein 6.9 gm/dl (6.4-8.2)
[2020-12-27 10:49] LABS: Phosphorus 2.5 mg/dl (2.5-4.9)
--- NOTE | 2020-12-27 17:27 | Discharge Summary ---
Date of Service December 27, 2020 Admission HPI Per Admitting Provider 45 YOF with past medical history of Anxiety, alcoholic cirrhosis, ETOH abuse, DKA, pancreatitis, asthma, multiple admissions for attempting sobriety and withdraw. Patient was last admitted 12/08/20 for withdraw symptom management and left AMA on 12/10, previous to that the patient was discharged home on with gabapentin and Librium as well as drug and alcohol help-line information. Patient continues to state that she does want to stop drinking and wants help, but again continues to try to do this herself because of "insurance and cost". [facility] has also evaluated the patient and has reached out to [facility] to assist with treatment and monitoring. Patient comes to the emergency room today because "she is going through withdraw" and "want to stop drinking". The patient last drank a pint of Vodka last night with crystal light. She finished this around midnight. She also endorses that she has not ate anything for the past 2 days because of loss of appetite. She has been drinking crystal light only. Patient complains of left foot pain after kicking a carpet in her bedroom earlier in the week, that hurts to walk and difficulty with flexion of toes. She also states that she is continuing her medications, but continues to have thrush to her mouth and visible tremors at this time. In the EMD she was given 1mg Ativan and Banana bag. She has yet to void. Patient states that she "may stay for a day". I spoke with the patient that I understands that this is difficult for her and we are here to support her through this, but she would need to help us by staying and committing to her treatment. She did say she understood and was open to assistance, we also discussed the possible options of [facility] dual treatment facility. Admission Exam Per Admitting Provider General: awake, alert, intoxicated Head: Normocephalic, atraumatic ENT: PERRL, EOMI, no pharyngeal exudate, mucous membranes dry, with thrush to tongue Neuro: AAO x 3, speech clear and appropriate with slurring from intoxication, strength intact bilaterally 5/5, sensation intact and equal all extremities and dermatomes, no pronator drift, tremors bilateral, no headache, Chest: equal rise and fall of the chest, no accessory muscle use, no heaves or thrills, Clear to auscultation, on room air, Cardiac: Regular rate and rhythm, telemetry reviewed, skin warm dry, cap refill <3 seconds, peripheral pulses +2 no JVD, no murmur, no JVD, no edema GI: NABS x 4 quadrants, softly distended, enlarged liver, nontender to palpation, no rebound, guarding or tenderness : void pending, denies any pain, no CVA tenderness, Extremities: Left last 2 toes tender at distal edges, no pain in the arch or midfoot, patient is able to bear weight, Normal inspection, no peripheral edema or erythema, calfs nontender to palpation Psych: Normal mood and affect Skin: no rash or erythema Principal Diagnosis Admitting diagnosis: 1. Acute alcohol withdrawal 2. Alcohol abuse 3. Metabolic acidosis 4. Alcohol intoxication 5. Thrombocytopenia 6. Leukopenia 7. GERD 8. Anxiety Discharge Exam General: Resting comfortably in her hospital bed. She is not excessively somnolent/obtunded. She is conversant and appropriate. A&O X3 NAD. Cardiac: RRR with 1/6 to 2/6 CARLOS Lungs: CTA without W/R/R Abdomen: Normoactive X4. Soft and nontender in all quadrants. Extremities: No peripheral clubbing cyanosis or edema Discharge Data Allergies Allergy/AdvReac Type Severity Reaction Status Date / Time theophylline AdvReac Unknown VERTIGO Verified 12/23/20 10:20 Consultations 12/23/20 18:49 Consult Psychiatry Routine : 45-year-old woman currently in alcohol withdrawal after presenting intoxicated to the emergency department. Sales Account Associate is familiar with patient from her last admission, and chart review shows that she has had several admissions for the same purpose. Patient is experiencing some anxiety, however is being treated with lorazepam according to the alcohol withdrawal protocol. Her anxiety is to be expected and is appropriate given her situation. Is is not indicated to start psychiatric medications for mood when patient is currently using and abusing a mood altering substance. She will need rehab placement, unfortunately this will have to be on a voluntary basis and patient remains with very poor insight and poor judgment. Recommendations: No psychiatric medications as patient is currently in a state of alcohol withdrawal or anxiety is to be expected. Due to the severity of her drinking and her continued use of alcohol despite being offered help, no additional psychiatric medications will be offered at this time. Please continue to strongly encourage rehab in this patient, she is currently agreeable. Ordered Studies 12/23/20 17:31 US abdomen ltd ascites Routine FINDINGS: Real-time grayscale sonography of all 4 quadrants of the abdomen was performed to assess for abdominal ascites. There is a small volume of abdominopelvic ascites. The largest pocket is seen in the right lower quadrant. The liver is enlarged and severely steatotic. Nodularity of the surface contour suggests early change of cirrhosis. The spleen is mildly enlarged measuring 13.5 cm in length. IMPRESSION: 1. There is a small volume of abdominopelvic ascites as above. 2. The liver is markedly enlarged, steatotic, and with early changes of cirrhosis. 3. Mild splenomegaly. X-ray of the left foot/toe: IMPRESSION: No fracture is identified. Hospital Course (1) Alcohol withdrawal: -Stable. Patient was placed on a tapering course of gabapentin and Librium and her AWSS score was monitored closely. For the first 48 hours, her AWSS score was between 3 but subsequently dropped to 0 and remained at 0. -Lengthy and multiple discussions had with patient about inpatient rehab which she claims she is agreeable to. Case management was on board. Unfortunately, patient was notified that she needed to call [facility] (once medically cleared) to do a phone interview. After 48 hours, she failed to call and pursue this phone interview. She continued to say that she would "do it when she got home". -Not an ideal situation sending the patient home to pursue inpatient rehab over the next couple of days; however, she cannot be house here waiting to do the phone interview. She is aware of the huge risk of relapse should she not go to inpatient rehab today and has still failed to do the interview for rehab. This is not something that could be done by myself or case management. The [facility] (which was the only place patient was agreeable to go) requires that the patient herself call. -Patient is medically and hemodynamically stable for discharge. She will be continued on a tapering course of Librium over the next 3 and half weeks to prevent withdrawal symptoms -Lengthy discussion with patient regarding the importance of alcohol cessation and risk of relapse should she not pursue inpatient rehab. She voices understanding (2) Thrombocytopenia: * 4T score 4 (low to intermediate risk of HIT). * Heparin stopped after initial dose given. Used SCD's for DVT prophylaxis and she is auto-anticoagulated given her ETOHic cirrhosis * Her thrombocytopenia is likely chronic due to her underlying cirrhosis (3) Hypomagnesemia: * replaced/resolved. continue to monitor (4) Pancytopenia: * likely d/t ETOHic cirrhosis. * Acute on chronic-- likely dilutional component. * IV fluids have since been stopped. Levels stable (5) Electrolyte abnormality: * hypokalemia-replaced/resolved * hypophosphotemia-replaced and resolved (6) Alcohol abuse: * See above (7) Metabolic acidosis: * Anion gap subsequently closed with IV fluids. Acetone missing from initial work-up (? Euglycemic DKA) but gap closed with IV fluids. (8) Elevated INR: * patient auto-anticoagulated (likely from underlying ETOHic cirrhosis). * Heparin stopped as discussed above (9) GERD (gastroesophageal reflux disease): * Continue with omeprazole and Famotidine (10) Anxiety: * on routine remeron. This was increased to 30mg. Seen by comfort who offers no additional suggestions at this time * in all honesty, it is unrealistic to alter/change psych meds during this time (as is it common for her to experience anxiety simply with the acute w/d process). * This is something that should be addressed with her acute IP rehab process. Further med changes will be deferred at this time. (11) Anemia: * As stated above, patient actually pancytopenic. * Pancytopenia likely related to underlying cirrhosis. Acute component likely dilutional. IV hydration has been stopped (12) Asthma: No acute issues Continue Advair. Patient admitted with thrush likely secondary to Advair. Enc ouraged rinsing mouth out after use and discharged with Mycelex troches (13) DVT prophylaxis: Utilize SCDs for DVT prophylaxis due to thrombocytopenia and auto anticoagulation likely given her cirrhosis. ambulationEncouraged Disposition-Home. Patient to do a phone interview with Wei juárez at her discretion for inpatient rehab (14) Cirrhosis: Chronic (15) Diabetes mellitus type 1: Resume NPH as prior to hospitalization Plan of care d/w Dr. Vega who has also seen and evaluated this patient. Total Time Total Time Spent Total Time Spent (In Minutes): 90 min Total Time Includes: Examination of the Patient, Discharge Planning, Medication Reconciliation and Communication With Other Providers Discharge Plan Discharge Items Patient Disposition: Home - Self-Care Reason For Visit: ETOH ABUSE Discharge Diagnosis: 1. Acute Alcohol Intoxication 2. Alcohol Abuse 3. Electrolyte Abnormality Activity: Resume your previous activity Non-emergency contact: Primary Care Provider Call non-emergency contact if: you have any medication questions and your symptoms worsen Follow-up/Referrals: Kendell Hollins [Primary Care Provider] - 01/04/21 11:10 am Diet: Other - See Diet Comment Diet Comment: RECOMMEND ALCOHOL CESSATION! Addtl Attending Provider Instructions: You were hospitalized for Issues regarding acute alcohol intoxication and longstanding alcohol abuse. You were started on a tapering course of medication for prevent acute alcohol withdrawal and seemed to do rather well. A referral was made for the [facility] for inpatient drug and alcohol rehab. In order to be accepted into this program, you need to do a phone interview. The number to call is: option #1 At this time, you no longer need to remain in the hospital. You will be discharged to home with a tapering course of Librium to further prevent alcohol withdrawal. I STRONGLY ENCOURAGE YOU TO FOLLOW THROUGH WITH THIS PLAN FOR INPATIENT REHAB!!!! You have tried many outpatient programs in the past without success. You have been sober now for 4 days and this is the start of your vida very journal. If you go home and think "I don't need to go to rehab, I feel good"-- there is a VERY HIGH CHANCE that you will relapse! Librium taper: -1 tablet by mouth 3x a day until 12/30/20 -on 12/31/20: start 1 tablet by mouth 2x a day x 7 days -on 01/07/21: start 1 tablet by mouth daily for 7 days -then stop complete the treatment for thrush. I changed it from a liquid to a lozenge/troc he. Take 5x/day for 5 days. YOU NEED TO MAKE SURE TO RINSE MOUTH OUT AFTER USE when using your inhalers (primarily your advair). Pending Studies at Discharge: No Stand-Alone Forms: My [facility] Medications and DC Order Prescriptions: New clotrimazole 10 mg syl 10 mg PO 5XD Qty: 35 RF: 0 thiamine HCl (vitamin B1) [Vitamin B-1] 100 mg Tablet 100 mg PO QAM Qty: 30 RF: 0 folic acid 1 mg Tablet 1 mg PO QAM Qty: 30 RF: 0 chlordiazepoxide HCl 25 mg capsule 25 mg PO DIRECTED Qty: 32 RF: 0 chlordiazepoxide HCl 25 mg capsule 25 mg PO DIRECTED Qty: 32 RF: 0 Continued fluticasone propion-salmeterol [Advair Diskus] 250-50 mcg/dose blister with device 1 inh inhalation QAM RF: 0 albuterol sulfate [Ventolin HFA] 90 mcg/actuation Hfa Aerosol Inhaler 2 puff INHALATION Q6H PRN (Reason: Shortness Of Breath) RF: 0 multivitamin [Daily-Harris] Tablet 1 tab PO QAM Qty: 0 RF: 0 spironolactone 25 mg Tablet 25 mg PO QAM Qty: 30 RF: 1 furosemide 20 mg Tablet 20 mg PO QAM Qty: 30 RF: 1 insulin asp prt-insulin aspart [Novolog Mix 70-30 U-100 Insuln] 100 unit/mL (70-30) solution 0 unit SUBCUT BID PRN (Reason: DEPENDS ON BSG PER PT.) RF: 0 omeprazole 20 mg Capsule,Delayed Release(Dr/Ec) 20 mg PO DAILY RF: 0 famotidine 20 mg Tablet 20 mg PO DAILY PRN (Reason: Gi Upset) RF: 0 potassium chloride 10 mEq capsule, extended release 10 meq PO BID Qty: 60 RF: 0 mirtazapine 15 mg Tablet 15 mg PO HS Qty: 30 RF: 0 Discontinued vitamin B complex-folic acid 50 mcg Tablet 1 tab PO DAILY RF: 0 nystatin 100,000 unit/mL Suspension 5 ml PO QID Qty: 60 RF: 0 chlordiazepoxide HCl 25 mg capsule 25 mg PO Q6H PRN (Reason: anxiety or withdrawal symptoms) Qty: 6 RF: 0 Discharge Orders: Discharge Order (Routine); Ordered 12/27/20 Ordered By: Mariam Dominguez/Other Patient Handouts: Alcoholism Resources, Alcoholism: Getting Help, Alcohol Addiction Admission Data Admit Date/Time: 12/23/20 13:31 Attending Provider: Sidney Vega Admit Provider: Daniel Christian Primary Care Provider: Kendell Hollins Other Providers: Michelle Gillespie ; Ally Russell ; Dr Otoniel ; Natalya Kamara ; Geovani Obrien Other Interventions: Discharge Summary Assessment (RN) Last Done: 12/27/20 13:31 Supervising Physician Co-Signing Physician Notes Patient seen and examined on the day of discharge. I agree with the discharge summary by Mariam VORA. I have reviewed the chart including labs, imaging and plans for discharge. patient is doing fine, no active signs of withdrawal, she is eating okay she says she called rehab in [place] and they do not take her insurance I told her to contact [facility] for a list of other options again, told her that she needs to quit, she has cirrhosis, any further drinking will make her even worse she said that she understands - Alcohol withdrawal: safe for discharge, will give a short course of Librium - Alcohol abuse/dependency: patient prefers to be discharged and look into inpatient rehab stays - Cirrhosis due to alcohol: with ascites, pancytopenia, elevated bili continue Lasix and spironolactone needs to abstain from alcohol Coding Level of Care Code D/C Day Management >30 mins Diagnoses Alcohol withdrawal F10.230 Complication of substance-induced condition: uncomplicated Thrombocytopenia D69.6 Hypomagnesemia E83.42 Pancytopenia D61.818 Electrolyte abnormality E87.8 Alcohol abuse F10.10 Metabolic acidosis E87.2 Elevated INR R79.1 GERD (gastroesophageal reflux disease) K21.9 Esophagitis presence: without esophagitis Anxiety F41.9 Anemia D64.9 Asthma J45.909 Asthma complication type: unspecified Asthma persistence: unspecified Asthma severity: unspecified severity DVT prophylaxis Z29.9 Cirrhosis K70.30 Ascites presence: unspecified Hepatic cirrhosis type: alcoholic cirrhosis Diabetes mellitus type 1 E10.9 Diabetes mellitus complication status: without complication
[2020-12-27] MEDS ORDERED: NovoLIN-N (NPH) PER UNIT CHARGE SQ ONE (19:30)
== END 2020-12-27 19:58 | disposition home or self-care (01) | DRG 897 ==
LOC: ED 10:09 → 3W 13:31 → SUATTDRO 13:31 → 3W 17:19

== ENCOUNTER 2021-04-09 17:16 | Observation (INO) ==
[2021-04-09] MEDS ORDERED: MULTI-VITAMIN INFUSION 10 ML, THIAMINE HCL 100 MG, FOLIC ACID 1 MG in SODIUM CHLORIDE 0... IV ONE (18:49)
[2021-04-09] MEDS ORDERED: THIAMINE HCL 200 MG in SODIUM CHLORIDE 0.9% 50 ML IV STA (18:54)
[2021-04-09] MEDS ORDERED: LORazepam 2 MG/4 ML VIAL IV STA (18:54)
[2021-04-09] MEDS ORDERED: FAMOTIDINE 20MG IV PUSH 20 MG/5 ML SYR IV STA (19:07)
[2021-04-09] MEDS ORDERED: ONDANSETRON INJ 2 MG/ML 2 ML VIAL IV STA (19:07)
[2021-04-09 19:19] LABS: Hematocrit (blood only) 36.7 % (37-47); Hemoglobin 12.9 g/dL (12.0-16.0); Mean Corpuscular Hemoglobin 31.3 pg (25-34); Mean Corpuscular Hgb Conc 35.1 g/dL (32-36); Mean Corpuscular Volume 89.1 fL (80-100); RDW Coefficient of Variation 14.7 % (11.5-14.5); RDW Standard Deviation 47.9 fL (36.4-46.3); Red Blood Count 4.12 M/uL (4.2-5.4); White Blood Count 4.61 K/uL (4.8-10.8)
--- NOTE | 2021-04-09 19:29 | XRay Report ---
XR chest 1V portable CLINICAL HISTORY: Atypical chest pain TECHNIQUE: Single frontal radiograph of the chest was obtained. Comparison: Comparison is made to chest one view 01/23/2021 FINDINGS: No lines and tubes are seen. The cardiomediastinal silhouette is normal. The lungs are clear. No evid ence of pleural effusion or pneumothorax. IMPRESSION: No acute chest disease. ACT 112: Negative or not required by law. Electronically signed by: Sidney Maya M.D. 04/09/2021 7:28 PM
[2021-04-09 19:30] LABS: INR 1.3 (0.9-1.1); Partial Thromboplastin Ratio 1.1; Prothrombin Time 12.7 Seconds (9.0-12.0)
[2021-04-09 19:54] LABS: Alanine Aminotransferase 116 U/L (12-78); Albumin Level 4.3 gm/dl (3.4-5.0); Aspartate Aminotransferase 258 U/L (15-37); Blood Urea Nitrogen 15 mg/dl (7-18); Calcium 9.7 mg/dl (8.5-10.1); Carbon Dioxide 13 mmol/L (21-32); Chloride 96 mmol/L (98-107); Est GFR (African American) 101.7 ml/min; Est GFR (Non-African American) 87.7 ml/min; Glucose 90 mg/dl (70-99); Lipase 237 U/L (73-393); Magnesium 2.1 mg/dl (1.8-2.4); Potassium 3.8 mmol/L (3.5-5.1); Sodium 131 mmol/L (136-145)
[2021-04-09 20:03] LABS: Alkaline Phosphatase 201 U/L (45-117); Bilirubin,Total 2.1 mg/dl (0.2-1); Creatine Kinase 346 U/L (26-192); Globulin 4.3 gm/dl (2.5-4.0); Phosphorus 2.2 mg/dl (2.5-4.9); Total Protein 8.6 gm/dl (6.4-8.2)
[2021-04-09 20:13] LABS: Pregnancy Test, Serum Negative (Negative)
[2021-04-09 20:18] LABS: Basophils # (auto) 0.02 K/uL (0-0.2); Basophils % (auto) 0.4 %; Eosinophils # (auto) 0.02 K/uL (0-0.5); Eosinophils % (auto) 0.4 %; Immature Granulocytes # (auto) 0.01 K/uL (0.00-0.02); Immature Granulocytes % (auto) 0.2 %; Lymphocytes # (auto) 1.03 K/uL (1.2-3.4); Lymphocytes % (auto) 22.3 %; Mean Platelet Volume 9.2 fL (7.4-10.4); Monocytes # (auto) 0.29 K/uL (0.11-0.59); Monocytes % (auto) 6.3 %; Neutrophils # (auto) 3.24 K/uL (1.4-6.5); Neutrophils % (auto) 70.4 %; Platelet Count 67 K/uL (130-400); Platelet Estimate Decreased (Normal)
[2021-04-09] MEDS ORDERED: SODIUM CHLORIDE 0.9% 1000ML 1,000 ML IV ONE (22:12)
[2021-04-09] MEDS ORDERED: LORazepam 1 MG/2 ML VIAL IV PRN (23:03)
--- NOTE | 2021-04-09 23:12 | Emergency Department Note ---
Impression & Plan Alcohol withdrawal, Acidosis, metabolic, Cirrhosis, Alcoholic hepatitis ED Provider Note NAME: ARIC GRANT AGE: 45 SEX: F ARRIVES VIA: [employer] INFORMANT: Patient, ED PROVIDER(S): Rafiq Martinez MD CHIEF COMPLAINT: Alcohol withdrawal PLAN: Disposition: Admit MEDICAL DECISION MAKING: The patient is a pleasant 45-year-old woman with a past medical history of diabetes, alcoholism, alcoholic cirrhosis who presents to the emergency department for symptoms of alcohol withdrawal where she reports she has not had alcohol for 2 days. She reports feeling tremulous nests and nausea. She reports that she typically will drink half a liter of vodka daily. She admits to history of alcohol withdrawal in the past. She is unaware if she is ever had any alcohol withdrawal seizures. Patient reports she would be interested in admission for further treatment of her alcohol withdrawal and is open to the possibility of rehab. On arrival the patient is uncomfortable, tremulous but no acute distress, afebrile with heart rate in the 100s and vital signs otherwise stable. She appears clinically dry. Abdomen is benign. WBC 4.6K and platelets 67K prior range values in the setting of the patient's alcoholic cirrhosis. Hemoglobin within normal limits. INR 1.38 similar to prior range of values. Chemistry demonstrates metabolic acidosis with anion gap of 22 and bicarb of 13. LFTs are elevated and are approximate to prior range of values in the setting of the patient's cirrhosis. Lipase is not elevated. Medical alcohol was detectable at 37. On reevaluation the patient's tremors were improved after 2 mg of Ativan on arrival. She is additionally treated with banana bag and thiamine. Patient again agrees with plan for admission for further management of alcohol withdrawal. Case was discussed with Dr. Cardozo, [facility] hospitalist, who will evaluate the patient for admission. Triage Nursing notes reviewed and agree them. Prior medical records reviewed Vital Signs: reviewed and remarkable for tachycardia. Differential diagnosis: Overdose, toxicologic, infection, hypoglycemia, electrolyte abnormalities, cardiac sources, intracerebral event, neurologic, trauma, as well as other pathologies. ER treatment provided: See below. Diagnostics interpreted by me: ECG: Sinus rhythm, 86 bpm, no ectopy, no overt ST elevation or depression. Cardiac Monitoring: An order for continuous cardiac monitoring was placed and demonstrated Sinus rhythm, 86 bpm, no ectopy. Laboratory studies: See below Imaging studies: See below Consultation(s): Case was discussed with Dr. Cardozo, [facility] hospitalist, who will evaluate the patient for admission. HPI: The patient is a pleasant 45-year-old woman with a past medical history of diabetes, alcoholism, alcoholic cirrhosis who presents to the emergency department for symptoms of alcohol withdrawal where she reports she has not had alcohol for 2 days. She reports feeling tremulous nests and nausea. She reports that she typically will drink half a liter of vodka daily. She admits to history of alcohol withdrawal in the past. She is unaware if she is ever had any alcohol withdrawal seizures. Patient reports she would be interested in admission for further treatment of her alcohol withdrawal and is open to the possibility of rehab. ROS: See above HPI for pertinent positives & negatives. A total of 10 systems reviewed and were otherwise negative. PAST MEDICAL HISTORY:See Below PAST SURGICAL HISTORY:See Below FAMILY HISTORY:See Below SOCIAL HISTORY:See Below HOME MEDICATIONS:See Below ALLERGIES:See Below VITALS:See Below PHYSICAL EXAMINATION: GENERAL: Awake, alert, uncomfortable-appearing, in no distress HENT: Normocephalic, atraumatic. Oropharynx dry mucous membrane. EYES: Normal conjunctiva. Sclera non-icteric. EOMI. No nystamgus. PEARRL. NECK: Supple. No nuchal rigidity. FROM. No JVD. RESPIRATORY: Clear to auscultation. CARDIAC: Tachycardic rate, normal rhythm. Extremities warm and well perfused. Pulses equal. ABDOMEN: Soft, non-distended. No tenderness to palpation. No rebound or guarding. No masses. RECTAL: Deferred. MUSCULOSKELETAL: Chest examination reveals no tenderness. The back is symmetrical on inspection without obvious abnormality. There is no CVA tenderness to palpation. No joint edema. LOWER EXTREMITIES: Calves are equal size bilaterally and non-tender. No edema. No discoloration. NEURO: Anxious appearing, moderately tremulous. No focal sensory or motor deficits noted. SKIN: No rash or jaundice noted. ED COURSE: Critical Care: I have personally spent greater than 35 minutes of critical care time in the direct management of this patient. This includes bedside care, interpretation of diagnostic studies, and testing, discussion with consultants, patient, and fa tavo members, and other required patient management activities. This 35 minutes is in excess of all separately billable procedures. Rafiq Martinez MD Past Med/Surg History Medical History Acute alcoholic hepatitis Alcohol abuse Alcohol withdrawal Alcohol withdrawal Alcoholic intoxication Anxiety Asthma Diabetes mellitus type 1 Surgical History History of dental surgery wisdom teeth History of esophagogastroduodenoscopy (EGD) Family History Father Prediabetes Grandfather (Paternal) Diabetes Mother Hypertension MVP (mitral valve prolapse) Social History Smoking Status: Former smoker Tobacco Type: Cigarettes Age Quit Using Tobacco: 39; packs per day: 1; Years Smoked: 2; Number of Years Since Quit: 4; Second Hand Exposure: No; Do You Dip or Chew Tobacco: No; Tobacco Cessation Education Requested by Patient: No Hx Alcohol Use: Yes Alcohol type: hard liquor Alcohol type Comment: 4 glasses wine daily Hx Substance Use: No Preferred Language: Kazakh Communication Ability: Effective Visual Impairment: No Limitations Attorney Law Clerk Required: No Beliefs That Will Affect Care: None marital status: marital status details: Single parent Current Living Situation: Alone Current Living Situation Comment: daughter current occupational status: unemployed Other Information That Helps Us Care for You: No Feels Safe at Home: Yes Safety Concerns: Feels Safe At This Time Childhood Exposure to Second-Hand Smoke: No Assistive Devices: Glasses Allergies Allergies Allergy/AdvReac Type Severity Reaction Status Date / Time theophylline AdvReac Intermediate VERTIGO Verified 04/09/21 23:29 Home Meds Home Medications Medication Instructions Recorded Confirmed fluticasone 250 mcg-salmeterol 50 1 inh INHALATION QAM 02/27/19 04/09/21 mcg/dose blistr powdr for inhalation (Advair Diskus) albuterol sulfate 90 mcg/actuation 2 puff INHALATION Q6H PRN 07/23/19 04/09/21 aerosol inhaler (Ventolin HFA) famotidine 20 mg tablet 20 mg PO DAILY PRN 11/10/20 04/09/21 insulin aspar prt-insulin aspart 5 - 10 unit SUBCUT BID PRN 11/10/20 04/09/21 100 unit/mL (70-30) subcutaneous soln (Novolog Mix 70-30 U-100 Insuln) omeprazole 20 mg capsule,delayed 20 mg PO DAILY PRN 11/10/20 04/09/21 release ascorbic acid (vitamin C) 500 mg 500 mg PO DAILY 04/05/21 04/09/21 tablet,extended release (Vitamin C ER) melatonin 10 mg tablet 10 mg PO HS PRN 04/05/21 04/09/21 Potassium Otc 1 tab PO BID 04/09/21 04/09/21 vitamin B complex 1 tab PO DAILY 04/09/21 04/09/21 Previous Rx's Medication Instructions Recorded multivitamin (Daily-Harris) 1 tab PO QAM #0 tab 07/27/19 mirtazapine 15 mg tablet 15 mg PO HS #30 tab 12/10/20 folic acid 1 mg tablet 1 mg PO QAM #30 tab 12/27/20 Results & Data (ED) Vital Signs Vital Signs - 24 hr 04/09/21 17:16 04/09/21 17:46 04/09/21 21:13 Temperature 37.1 C Temperature Source Temporal Artery Scan Pulse Rate 103 H Pulse Rate [Apical] 93 H 90 Pulse Rhythm [Apical] Regular Regular Pulse Strength [Apical] Normal Respiratory Rate 18 20 16 Respiratory Effort / Characteristics Non-Labored Spontaneous Non-Labored Spontaneous Non-Labored Respiratory Depth Normal Normal Normal Respiratory Pattern Regular Regular Regular Blood Pressure 125/74 Blood Pressure [Right Arm] 141/77 H 141/77 H Blood Pressure Mean 91 Blood Pressure Mean [Right Arm] 98 98 Blood Pressure Position Sitting Blood Pressure Position [Right Arm] Lying Pulse Oximetry 97 98 96 Oxygen Delivery Method Room Air Room Air Room Air Sepsis Recent Fever Within 48 Hours No Sepsis New/Unexplained Change in Mental Status No Sepsis Action Taken by Nursing No Action Required 04/09/21 22:56 04/10/21 00:33 04/10/21 01:27 Temperature Temperature Source Pulse Rate Pulse Rate [Apical] 99 H 88 84 Pulse Rhythm [Apical] Regular Regular Regular Pulse Strength [Apical] Normal Normal Normal Respiratory Rate 16 16 16 Respiratory Effort / Characteristics Non-Labored Spontaneous Non-Labored Non-Labored Respiratory Depth Normal Normal Normal Respiratory Pattern Regular Regular Regular Blood Pressure Blood Pressure [Right Arm] 141/77 H 116/51 L 122/76 Blood Pressure Mean Blood Pressure Mean [Right Arm] 98 72 91 Blood Pressure Position Blood Pressure Position [Right Arm] Lying Lying Lying Pulse Oximetry 97 97 97 Oxygen Delivery Method Room Air Room Air Room Air Sepsis Recent Fever Within 48 Hours Sepsis New/Unexplained Change in Mental Status Sepsis Action Taken by Nursing Laboratory Data Attestation: I reviewed the patient's lab results. Result diagrams: 04/09/21 19:09 04/09/21 19:09 Lab Results 04/09/21 04/09/21 04/09/21 Range/Units 19:09 19:09 19:09 WBC 4.61 L (4.8-10.8) K/uL RBC 4.12 L (4.2-5.4) M/uL Hgb 12.9 (12.0-16.0) g/dL Hct 36.7 L (37-47) % MCV 89.1 (80-100) fL MCH 31.3 (25-34) pg MCHC 35.1 (32-36) g/dL RDW Std Deviation 47.9 H (36.4-46.3) fL RDW Coeff of Suzanne 14.7 H (11.5-14.5) % Plt Count 67 L (130-400) K/uL MPV 9.2 (7.4-10.4) fL Immature Gran % (Auto) 0.2 % Neut % (Auto) 70.4 % Lymph % (Auto) 22.3 % [place] % (Auto) 6.3 % Eos % (Auto) 0.4 % Baso % (Auto) 0.4 % Neut # (Auto) 3.24 (1.4-6.5) K/uL Lymph # (Auto) 1.03 L (1.2-3.4) K/uL [place] # (Auto) 0.29 (0.11-0.59) K/uL Eos # (Auto) 0.02 (0-0.5) K/uL Baso # (Auto) 0.02 (0-0.2) K/uL Immature Gran # (Auto) 0.01 (0.00-0.02) K/uL Platelet Estimate Decreased L (Normal) PT 12.7 H (9.0-12.0) Seconds INR 1.3 H (0.9-1.1) APTT 29.0 (21.0-31.0) Seconds PTT Ratio 1.1 Sodium 131 L (136-145) mmol/L Potassium 3.8 (3.5-5.1) mmol/L Chloride 96 L (98-107) mmol/L Carbon Dioxide 13 L (21-32) mmol/L Anion Gap 22.0 H (3-11) BUN 15 (7-18) mg/dl Creatinine 0.81 (0.6-1.2) mg/dl Est Cr Clr Drug Dosing Not Reportable Est GFR ( Amer) 101.7 ml/min Est GFR (Non-Af Amer) 87.7 ml/min BUN/Creatinine Ratio 18.0 (10-20) Glucose 90 (70-99) mg/dl Lactate (0.4-2.0) mmol/L Calcium 9.7 (8.5-10.1) mg/dl Phosphorus 2.2 L (2.5-4.9) mg/dl Magnesium 2.1 (1.8-2.4) mg/dl Total Bilirubin 2.1 H (0.2-1) mg/dl Direct Bilirubin 1.0 H (0-0.2) mg/dl AST 258 H (15-37) U/L ALT 116 H (12-78) U/L Alkaline Phosphatase 201 H (45-117) U/L Total Creatine Kinase 346 H (26-192) U/L Total Protein 8.6 H (6.4-8.2) gm/dl Albumin 4.3 (3.4-5.0) gm/dl Globulin 4.3 H (2.5-4.0) gm/dl Albumin/Globulin Ratio 1.0 (0.9-2) Lipase 237 (73-393) U/L TSH 3.420 (0.300-4.500) uIu/ml HCG, Qual (Negative) Ethyl Alcohol mg/dL (0-3) mg/dl COVID-19 Eval Order SARS-CoV-2 (PCR) (Negative) 04/09/21 04/09/21 04/09/21 Range/Units 19:09 19:11 21:13 WBC (4.8-10.8) K/uL RBC (4.2-5.4) M/uL Hgb (12.0-16.0) g/dL Hct (37-47) % MCV (80-100) fL MCH (25-34) pg MCHC (32-36) g/dL RDW Std Deviation (36.4-46.3) fL RDW Coeff of Suzanne (11.5-14.5) % Plt Count (130-400) K/uL MPV (7.4-10.4) fL Immature Gran % (Auto) % Neut % (Auto) % Lymph % (Auto) % [place] % (Auto) % Eos % (Auto) % Baso % (Auto) % Neut # (Auto) (1.4-6.5) K/uL Lymph # (Auto) (1.2-3.4) K/uL [place] # (Auto) (0.11-0.59) K/uL Eos # (Auto) (0-0.5) K/uL Baso # (Auto) (0-0.2) K/uL Immature Gran # (Auto) (0.00-0.02) K/uL Platelet Estimate (Normal) PT (9.0-12.0) Seconds INR (0.9-1.1) APTT (21.0-31.0) Seconds PTT Ratio Sodium (136-145) mmol/L Potassium (3.5-5.1) mmol/L Chloride (98-107) mmol/L Carbon Dioxide (21-32) mmol/L Anion Gap (3-11) BUN (7-18) mg/dl Creatinine (0.6-1.2) mg/dl Est Cr Clr Drug Dosing Est GFR ( Amer) ml/min Est GFR (Non-Af Amer) ml/min BUN/Creatinine Ratio (10-20) Glucose (70-99) mg/dl Lactate (0.4-2.0) mmol/L Calcium (8.5-10.1) mg/dl Phosphorus (2.5-4.9) mg/dl Magnesium (1.8-2.4) mg/dl Total Bilirubin (0.2-1) mg/dl Direct Bilirubin (0-0.2) mg/dl AST (15-37) U/L ALT (12-78) U/L Alkaline Phosphatase (45-117) U/L Total Creatine Kinase (26-192) U/L Total Protein (6.4-8.2) gm/dl Albumin (3.4-5.0) gm/dl Globulin (2.5-4.0) gm/dl Albumin/Globulin Ratio (0.9-2) Lipase (73-393) U/L TSH (0.300-4.500) uIu/ml HCG, Qual Negative (Negative) Ethyl Alcohol mg/dL 37.0 H (0-3) mg/dl COVID-19 Eval Order Covid19 at [facility] SARS-CoV-2 (PCR) (Negative) 04/09/21 04/09/21 Range/Units 21:13 23:33 WBC (4.8-10.8) K/uL RBC (4.2-5.4) M/uL Hgb (12.0-16.0) g/dL Hct (37-47) % MCV (80-100) fL MCH (25-34) pg MCHC (32-36) g/dL RDW Std Deviation (36.4-46.3) fL RDW Coeff of Suzanne (11.5-14.5) % Plt Count (130-400) K/uL MPV (7.4-10.4) fL Immature Gran % (Auto) % Neut % (Auto) % Lymph % (Auto) % [place] % (Auto) % Eos % (Auto) % Baso % (Auto) % Neut # (Auto) (1.4-6.5) K/uL Lymph # (Auto) (1.2-3.4) K/uL [place] # (Auto) (0.11-0.59) K/uL Eos # (Auto) (0-0.5) K/uL Baso # (Auto) (0-0.2) K/uL Immature Gran # (Auto) (0.00-0.02) K/uL Platelet Estimate (Normal) PT (9.0-12.0) Seconds INR (0.9-1.1) APTT (21.0-31.0) Seconds PTT Ratio Sodium (136-145) mmol/L Potassium (3.5-5.1) mmol/L Chloride (98-107) mmol/L Carbon Dioxide (21-32) mmol/L Anion Gap (3-11) BUN (7-18) mg/dl Creatinine (0.6-1.2) mg/dl Est Cr Clr Drug Dosing Est GFR ( Amer) ml/min Est GFR (Non-Af Amer) ml/min BUN/Creatinine Ratio (10-20) Glucose (70-99) mg/dl Lactate 0.8 (0.4-2.0) mmol/L Calcium (8.5-10.1) mg/dl Phosphorus (2.5-4.9) mg/dl Magnesium (1.8-2.4) mg/dl Total Bilirubin (0.2-1) mg/dl Direct Bilirubin (0-0.2) mg/dl AST (15-37) U/L ALT (12-78) U/L Alkaline Phosphatase (45-117) U/L Total Creatine Kinase (26-192) U/L Total Protein (6.4-8.2) gm/dl Albumin (3.4-5.0) gm/dl Globulin (2.5-4.0) gm/dl Albumin/Globulin Ratio (0.9-2) Lipase (73-393) U/L TSH (0.300-4.500) uIu/ml HCG, Qual (Negative) Ethyl Alcohol mg/dL (0-3) mg/dl COVID-19 Eval Order SARS-CoV-2 (PCR) NEGATIVE (Negative) Administered Medications Discontinued Medications Diazepam (Diazepam 5 Mg Tablet) 10 mg PO NOW ONE Stop: 04/10/21 00:08 Last Admin: 04/10/21 00:29 Dose: 10 mg Documented by: [id number] Multivitamins 10 ml/ Thiamine HCl 100 mg/ Folic Acid 1 mg/Sodium Chloride 1,011.2 mls @ 1,011.2 mls/hr IV .Q1H ONE Stop: 04/09/21 19:48 Last Infusion: 04/09/21 21:30 Dose: 0 mls/hr Documented by: [id number] Admin: 04/09/21 20:30 Dose: 1,011.2 mls/hr Documented by: [id number] Thiamine HCl 200 mg/ Sodium (Chloride) 52 mls @ 208 mls/hr IV NOW STA Stop: 04/09/21 19:08 Last Infusion: 04/09/21 20:45 Dose: 0 mls/hr Documented by: [id number] Admin: 04/09/21 20:30 Dose: 208 mls/hr Documented by: [id number] Lorazepam (Ativan) 2 mg in 4 mls @ 4 mls/min IV NOW STA Stop: 04/09/21 18:55 Last Admin: 04/09/21 19:12 Dose: 4 mls/min Documented by: [id number] Famotidine (Pepcid 20mg Iv Push) 20 mg in 5 mls @ 2.5 mls/min IV NOW STA Stop: 04/09/21 19:08 Last Admin: 04/09/21 19:17 Dose: 2.5 mls/min Documented by: [id number] Sodium Chloride (Nss 1000ml) 1,000 mls @ 999 mls/hr IV .Q1H1M ONE Stop: 04/09/21 23:12 Last Infusion: 04/10/21 00:12 Dose: 0 mls/hr Documented by: [id number] Admin: 04/09/21 22:56 Dose: 999 mls/hr Documented by: [id number] Ondansetron HCl (Ondansetron Inj 2 Mg/Ml 2 Ml Vial) 4 mg IV NOW STA Stop: 04/09/21 19:08 Last Admin: 04/09/21 19:17 Dose: 4 mg Documented by: [id number] Imaging Data Radiologist's Impression: Chest X-Ray 04/09/21 18:53 XR chest 1V portable CLINICAL HISTORY: Atypical chest pain TECHNIQUE: Single frontal radiograph of the chest was obtained. Comparison: Comparison is made to chest one view 01/23/2021 FINDINGS: No lines and tubes are seen. The cardiomediastinal silhouette is normal. The lungs are clear. No evidence of pleural effusion or pneumothorax. IMPRESSION: No acute chest disease. ACT 112: Negative or not required by law. Electronically signed by: Sidney Maya M.D. 04/09/2021 7:28 PM Discharge Plan Visit Data Chief Complaint: Alcohol Withdrawal Stated Complaint: ALCOHOL WITHDRAWL ED Provider: Rafiq Martinez Discharge Problem: Alcohol withdrawal, Acidosis, metabolic, Cirrhosis, Alcoholic hepatitis Patient Disposition: Admitted As Inpatient Discharge Instructions Interventions: ED Discharge Assessment Last Done: 04/10/21 02:02 Discharge Problem: Alcohol withdrawal Qualifiers: Complication of substance-induced condition: with delirium Qualified Code(s): F10.231 - Alcohol dependence with withdrawal delirium
--- NOTE | 2021-04-09 23:48 | History & Physical Report ---
Date of Service April 09, 2021 Assessment & Plan (1) Alcohol withdrawal: Plan: Marcus Avelar is a 45y/o female with PMH significant for anxiety, alcoholic hepatitis, diabetic ketoacidosis, pancreatitis, asthma; who presents for return of symptoms of alcohol withdrawal. Alcohol withdrawal: -Extensive history of alcohol withdrawal with no history of withdrawal seizures -In ED received 1 L banana bag as well as thiamine and folic acid -Continue thiamine and folic acid daily -AWSS protocol with Ativan PRN -Diazepam 10 mg p.o. given in ED, consideration of diazepam usage given longer half-life but will watch total amount of Ativan required -Admit to PCU given significant history of alcohol withdrawals Alcoholic hepatitis: -No signs of acute encephalopathy -INR 1.3 -Meld score 18 -Continue to monitor LFTs as well as mental status GERD: -Likely secondary to chronic alcohol consumption -Continue PPI and Pepcid Thrombocytopenia: -Platelets 67 on admission -Likely secondary to bone marrow suppression from chronic alcohol abuse -Continue to monitor for acute changes/bleeds S/p subarachnoid hemorrhage: -Traumatic subarachnoid hemorrhage discovered on 01/23 -[place] [facility] [place] Diet: Regular CODE STATUS: Full code DVT prophylaxis: Chemical prophylaxis deferred in the setting of recent subarachnoid hemorrhage (2) Alcoholic hepatitis: (3) Anxiety: (4) GERD (gastroesophageal reflux disease): (5) Thrombocytopenia: History of Present Illness Primary Care Provider: [place] Marcus Avelar is a 45y/o female with PMH significant for anxiety, alcoholic hepatitis, diabetic ketoacidosis, pancreatitis, asthma; who presents for return of symptoms of alcohol withdrawal. Reports that despite numerous recent efforts in order to stop drinking, she has been continuing to drink approximately a fifth of vodka every 1 to 2 days. Has not had any alcohol in the last 2 days. Reports feeling anxious, tremulousness, nausea, but no seizure or seizure-like activity. Admits to significantly history of alcohol withdrawals as well as concerns about difficulty with alcohol cessation. In ED received 2 mg IV Ativan with continued tremulousness, as well as received banana bag and thiamine. Subsequently given 10 mg oral Valium with improvement of symptoms. Allergies Allergy/AdvReac Type Severity Reaction Status Date / Time theophylline AdvReac Intermediate VERTIGO Verified 04/09/21 23:29 Home Medications Medication Instructions Recorded Confirmed Type fluticasone 250 mcg-salmeterol 50 1 inh INHALATION QAM 02/27/19 04/09/21 History mcg/dose blistr powdr for inhalation (Advair Diskus) albuterol sulfate 90 mcg/actuation 2 puff INHALATION Q6H PRN 07/23/19 04/09/21 History aerosol inhaler (Ventolin HFA) multivitamin (Daily-Harris) 1 tab PO QAM #0 tab 07/27/19 04/09/21 Rx famotidine 20 mg tablet 20 mg PO DAILY PRN 11/10/20 04/09/21 History insulin aspar prt-insulin aspart 5 - 10 unit SUBCUT BID PRN 11/10/20 04/09/21 History 100 unit/mL (70-30) subcutaneous soln (Novolog Mix 70-30 U-100 Insuln) omeprazole 20 mg capsule,delayed 20 mg PO DAILY PRN 11/10/20 04/09/21 History release mirtazapine 15 mg tablet 15 mg PO HS #30 tab 12/10/20 04/09/21 Rx folic acid 1 mg tablet 1 mg PO QAM #30 tab 12/27/20 04/09/21 Rx ascorbic acid (vitamin C) 500 mg 500 mg PO DAILY 04/05/21 04/09/21 History tablet,extended release (Vitamin C ER) melatonin 10 mg tablet 10 mg PO HS PRN 04/05/21 04/09/21 History Potassium Otc 1 tab PO BID 04/09/21 04/09/21 History vitamin B complex 1 tab PO DAILY 04/09/21 04/09/21 History Past Med/Surg History Medical History Acute alcoholic hepatitis Alcohol abuse Alcohol withdrawal Alcohol withdrawal Alcoholic intoxication Anxiety Asthma Diabetes mellitus type 1 Surgical History History of dental surgery wisdom teeth History of esophagogastroduodenoscopy (EGD) Family History Father Prediabetes Grandfather (Paternal) Diabetes Mother Hypertension MVP (mitral valve prolapse) Social History Smoking Status: Former smoker Tobacco Type: Cigarettes Age Quit Using Tobacco: 39; packs per day: 1; Years Smoked: 2; Number of Years Since Quit: 4; Second Hand Exposure: No; Do You Dip or Chew Tobacco: No; Tobacco Cessation Education Requested by Patient: No Hx Alcohol Use: Yes Alcohol type: hard liquor Alcohol type Comment: 4 glasses wine daily Hx Substance Use: No Preferred Language: [place] Communication Ability: Effective Visual Impairment: No Limitations [employer] Required: No Beliefs That Will Affect Care: None marital status: marital status details: Single parent Current Living Situation: Alone Current Living Situation Comment: daughter current occupational status: unemployed How many Children do You have: 1 Other Information That Helps Us Care for You: No Feels Safe at Home: Yes Safety Concerns: Feels Safe At This Time Childhood Exposure to Second-Hand Smoke: No Assistive Devices: Glasses Review of Systems Review of Systems: All systems reviewed & are unremarkable except as noted in HPI & below Physical Exam Constitutional: WD/WN, vitals as above Eyes: PERRL, conjunctivae normal, anicteric sclerae Respiratory: normal respiratory effort, lungs clear to auscultation Auscultation: no crackles, no rales, no rhonchi and no wheezes Cardiovascular: Rate/Rhythm: regular rate and regular rhythm Heart Sounds: no gallop, no murmur and no cardiac rub Vessels: normal peripheral pulses; no JVD Extremities: no edema Gastrointestinal (Abdomen): Inspection/Auscultation: normal bowel sounds; abdomen not distended Percussion/Palpation: abdomen soft; abdomen nontender and no guarding Musculoskeletal: no cyanosis or clubbing, extremities motor strength 5/5 Skin: no rashes, warm and dry Neurologic: PERRL, EOMI, accommodation nl, no face palsy, no dysarthria CN's II-XI intact bilaterally and moves all extremities Psychiatric: Orientation: alert and oriented x 3 Affect: + anxious affect Results & Data Results & Data ([facility]) Vital Signs (Past 12 Hours) Vital Signs Temp Pulse Pulse Resp BP BP Pulse Ox 04/09/21 22:56 99 H 16 141/77 H 97 04/09/21 21:13 90 16 141/77 H 96 04/09/21 17:46 37.1 C 103 H 20 125/74 98 04/09/21 17:16 93 H 18 141/77 H 97 Supervising Physician Co-Signing Physician Notes Patient seen and examined, chart reviewed, case discussed with Dr. De Jesus and I agree with his assessment and plan as above. In brief, Marcus Avelar is a 45yo female with history of anxiety, alcohol abuse complicated by past alcoholic hepatitis, pancreatitis and withdrawal as well as DM presenting with EtOH withdrawal. Patient states that she was sober for 8-9 weeks recently. She has been drinking fairly heavily for the last week and tried to quit on her own over the last 2 days. Given Valium 10mg po x 1 and Ativan 2mg IV in the ER Symptoms improved On exam she is afebrile, HD stable, NAD, still mildly tremulous, AA&O x 4 Skin - intact HEENT - NC/AT, PERRL, neck supple Heart - +S1/S2, regular, no m/r/g Lungs - CTA Abd - +BS, soft, NT/ND Ext - no edema Labs and images reviewed. Assessment/Plan 45yo female with history of EtOH abuse presenting with symptoms of withdrawal. Uncomplicated, no delirium or seizures at this time -Continue thiamine and folic acid -Ativan PRN - if she is requiring frequent dosing will administer additional doses of Valium to effect -Remainder of plan as above Resident Activity Tracking Resident Involvement: Resident Care Provided Care Provided: Adult Hospital Medicine (1) Alcohol withdrawal Complication of substance-induced condition: uncomplicated Qualified Code(s): F10.230 - Alcohol dependence with withdrawal, uncomplicated (2) GERD (gastroesophageal reflux disease) Esophagitis presence: without esophagitis Qualified Code(s): K21.9 - Gastro- esophageal reflux disease without esophagitis
[2021-04-10] MEDS ORDERED: diazePAM 5 MG TABLET PO ONE (00:07)
[2021-04-10] MEDS ORDERED: MELATONIN 3 MG TAB PO PRN (02:24)
[2021-04-10] MEDS ORDERED: MAGNESIUM HYDROXIDE SUSP 30 ML UDC PO PRN (02:24)
[2021-04-10] MEDS ORDERED: FAMOTIDINE 20 MG TAB PO PRN (02:24)
[2021-04-10] MEDS ORDERED: ALUMINUM/MAGNESIUM SUSP 30 ML UDC PO PRN (02:24)
[2021-04-10] MEDS ORDERED: ALBUTEROL HFA 8 GM INHALER INH PRN (02:24)
[2021-04-10] MEDS ORDERED: ONDANSETRON INJ 2 MG/ML 2 ML VIAL IV PRN (02:24)
[2021-04-10] MEDS ORDERED: POLYETHYLENE (MIRALAX) 17 GM PACK PO PRN (02:24)
[2021-04-10] MEDS ORDERED: ACETAMINOPHEN 325 MG TAB PO PRN (02:24)
[2021-04-10 06:24] LABS: Hematocrit (blood only) 32.2 % (37-47); Hemoglobin 11.3 g/dL (12.0-16.0); Mean Corpuscular Hemoglobin 31.5 pg (25-34); Mean Corpuscular Hgb Conc 35.1 g/dL (32-36); Mean Corpuscular Volume 89.7 fL (80-100); RDW Coefficient of Variation 14.8 % (11.5-14.5); RDW Standard Deviation 48.5 fL (36.4-46.3); Red Blood Count 3.59 M/uL (4.2-5.4); White Blood Count 3.76 K/uL (4.8-10.8)
[2021-04-10 06:27] LABS: Mean Platelet Volume 9.7 fL (7.4-10.4); Platelet Count 45 K/uL (130-400)
[2021-04-10 07:00] LABS: Albumin Level 3.4 gm/dl (3.4-5.0); BUN Creatinine Ratio 17.1 (10-20); Calcium 8.8 mg/dl (8.5-10.1); Creatinine Clr Calc Pharmacy 84.3 ml/min; Est GFR (African American) 108.1 ml/min; Est GFR (Non-African American) 93.2 ml/min; Magnesium 2.1 mg/dl (1.8-2.4); Potassium 3.4 mmol/L (3.5-5.1)
[2021-04-10 07:09] LABS: Albumin Globulin Ratio 0.9 (0.9-2); Globulin 3.6 gm/dl (2.5-4.0); Phosphorus 1.8 mg/dl (2.5-4.9)
[2021-04-10 07:10] LABS: Basophils # (auto) 0.01 K/uL (0-0.2); Basophils % (auto) 0.3 %; Eosinophils # (auto) 0.01 K/uL (0-0.5); Eosinophils % (auto) 0.3 %; Immature Granulocytes # (auto) 0.01 K/uL (0.00-0.02); Immature Granulocytes % (auto) 0.3 %; Lymphocytes % (auto) 23.9 %; Monocytes # (auto) 0.27 K/uL (0.11-0.59); Monocytes % (auto) 7.2 %; Neutrophils # (auto) 2.56 K/uL (1.4-6.5)
--- NOTE | 2021-04-10 07:34 | Hospitalist Progress Note ---
Date of Service April 10, 2021 Assessment & Plan (1) Alcohol withdrawal: Plan: Marcus Avelar is a 45y/o female with PMH significant for anxiety, alcoholic hepatitis, diabetic ketoacidosis, pancreatitis, asthma; who presents for return of symptoms of alcohol withdrawal. Alcohol withdrawal: -Extensive history of alcohol withdrawal with no history of withdrawal seizures -In ED received 1 L banana bag as well as thiamine and folic acid -Diazepam 10 mg p.o. & lorazepam 2mg IV given in ED -Continue thiamine and folic acid daily -AWSS protocol with Ativan PRN -- has not required since admission -Plan to DC with oral naltrexone -- patient to f/u in office to attempt to switch to IM formulation going forward Alcoholic hepatitis with h/o steatohepatitis and liver cirrhosis: -No signs of acute encephalopathy -INR 1.3 -Meld score 18 -Reviewed CT scan from 01/23/2021 -LFTs downtrending today GERD: -Likely secondary to chronic alcohol consumption -Continue PPI and Pepcid Thrombocytopenia: sec to cirrhosis/splenomegaly/portal hypertension -Platelets 67 on admission and 45 on recheck -Continue to monitor for acute changes/bleeds S/p subarachnoid hemorrhage: -Traumatic subarachnoid hemorrhage discovered on 01/23 -Received evaluation at [facility] [place] with no surgical intervention required Diet: Regular CODE STATUS: Full code DVT prophylaxis: Chemical prophylaxis deferred in the setting of recent subarachnoid hemorrhage Dispo: Telemetry (2) Alcoholic hepatitis: (3) Anxiety: (4) GERD (gastroesophageal reflux disease): (5) Thrombocytopenia: Admission and Anticipated Discharge Date Admission Date: April 10, 2021 Supervising Physician Co-Signing Physician Notes Resident Physician Supervision Note: I independently interviewed and examined the patient and verified the wood history and physical, reviewed labs and image studies and agree with resident Dr. Xie findings and care plan. Subjective Patient seen at bedside this morning. Reports no acute concerns. She does admit that she had been drinking for several days after having been sober for 18 days. Started drinking last Friday and per patient stopped on Friday. She then reported feeling generally sick and unlike her usual self. At that point decided to come to hospital. Patient currently states that she is very interested in quitting drinking. Mentions she has tried an AA group but did not feel it was the right fit for her, does inform me that she is willing to seek out other AA groups in the area. Additionally, she is interested in receiving treatment that may help with alcohol use disorder. However, she is not open to inpatient rehabilitation as this may be too expensive for her. Denies headache, dizziness, confusion, chest pain, palpitations, shortness of breath. Review of Systems Review of Systems: Per subjective Physical Exam Physical Exam: GENERAL: A&Ox3. NAD. HEENT: PERRL, EOMI. Moist mucous membranes. CHEST/LUNGS: CTAB A/P. No crackles, wheezes, rales, rhonchi. HEART: RRR. No m/g/r. No carotid bruits. ABDOMEN: NT/ND, soft. BS+ x4 EXTREMITIES: No cyanosis, no clubbing, no edema SKIN: Warm and dry. No rashes or lesions. PSYCHIATRIC: Euthymic affect, no SI, no pressured speech, no hallucinations NEUROLOGIC: No FND. CN II-XII grossly intact. Results & Data Results & Data ([facility]) Vital Signs (Past 12 Hours) Vital Signs Temp Pulse Pulse Resp BP Pulse Ox Pulse Ox 04/10/21 02:49 36.5 C 90 20 125/81 100 04/10/21 02:24 36.8 C 100 H 20 125/81 100 100 04/10/21 01:27 84 16 122/76 97 04/10/21 00:33 88 16 116/51 L 97 04/09/21 22:56 99 H 16 141/77 H 97 04/09/21 21:13 90 16 141/77 H 96 Resident Activity Tracking Resident Involvement: Resident Care Provided Care Provided: Adult Hospital Medicine (1) Alcohol withdrawal Complication of substance-induced condition: with delirium Qualified Code(s): F10.231 - Alcohol dependence with withdrawal delirium (2) GERD (gastroesophageal reflux disease) Esophagitis presence: without esophagitis Qualified Code(s): K21.9 - Gastro- esophageal reflux disease without esophagitis
[2021-04-10] MEDS: FLUTICASONE/VILANTEROL 100/25MCG 14 PUFFS/INHALER INH SCH (08:29)
[2021-04-10] MEDS: MULTIVITAMIN TAB PO SCH (08:31)
[2021-04-10] MEDS: FOLIC ACID 1 MG TAB PO SCH (08:31)
[2021-04-10] MEDS ORDERED: PHARMACY GLYCEMIC MGMT CONSULT PRN (18:25)
[2021-04-10] MEDS: INSULIN ASPART 100 UNITS/ML 3 ML PEN SC SCH ×2 (19:09→21:24)
--- NOTE | 2021-04-10 19:31 | Billing Data ---
Date of Service April 09, 2021 Coding Level of Care Code 16728 Initial Inpt Care Lvl 3
[2021-04-10] MEDS ORDERED: MIRTAZAPINE TAB 15 MG TAB PO SCH (21:00)
[2021-04-11] MEDS ORDERED: INSULIN ASPART 100 UNITS/ML 3 ML PEN SC SCH (02:00)
--- NOTE | 2021-04-11 07:48 | Discharge Summary ---
Date of Service April 11, 2021 Admission HPI Per Admitting Provider Marcus Avelar is a 45y/o female with PMH significant for anxiety, alcoholic hepatitis, diabetic ketoacidosis, pancreatitis, asthma; who presents for return of symptoms of alcohol withdrawal. Reports that despite numerous recent efforts in order to stop drinking, she has been continuing to drink approximately a fifth of vodka every 1 to 2 days. Has not had any alcohol in the last 2 days. Reports feeling anxious, tremulousness, nausea, but no seizure or seizure-like activity. Admits to significantly history of alcohol withdrawals as well as concerns about difficulty with alcohol cessation. In ED received 2 mg IV Ativan with continued tremulousness, as well as received banana bag and thiamine. Subsequently given 10 mg oral Valium with improvement of symptoms. Principal Diagnosis Alcohol withdrawal Discharge Exam GENERAL: A&Ox3. NAD. HEENT: PERRL, EOMI. Moist mucous membranes. CHEST/LUNGS: CTAB A/P. No crackles, wheezes, rales, rhonchi. HEART: RRR. No m/g/r. No carotid bruits. ABDOMEN: NT/ND, soft. BS+ x4 EXTREMITIES: No cyanosis, no clubbing, no edema SKIN: Warm and dry. No rashes or lesions. PSYCHIATRIC: Euthymic affect, no SI, no pressured speech, no hallucinations NEUROLOGIC: No FND. CN II-XII grossly intact. Discharge Data Allergies Allergy/AdvReac Type Severity Reaction Status Date / Time theophylline AdvReac Intermediate VERTIGO Verified 04/09/21 23:29 Consultations 04/09/21 23:01 ED Decision to Admit Stat Hospital Course (1) Alcohol withdrawal: Marcus Avelar is a 45y/o female with PMH significant for anxiety, alcoholic hepatitis, diabetic ketoacidosis, pancreatitis, asthma; who presents for return of symptoms of alcohol withdrawal. Alcohol withdrawal: -Extensive history of alcohol withdrawal with no history of withdrawal seizures -Diazepam 10 mg p.o. & lorazepam 2mg IV given in ED -Thiamine and folic acid daily -Kept on AWSS protocol with Ativan PRN -DC with oral naltrexone -- patient to f/u in office to attempt to switch to IM formulation going forward Alcoholic hepatitis with h/o steatohepatitis and liver cirrhosis: -No signs of acute encephalopathy -INR 1.3 -Meld score 18 -Reviewed CT scan from 01/23/2021 -LFTs downtrending at DC -Reiterated the need to abstain from alcohol. GERD: -Likely secondary to chronic alcohol consumption -Continue PPI and Pepcid Thrombocytopenia: sec to cirrhosis/splenomegaly/portal hypertension -Platelets 67 on admission and 45 on recheck -No clinical signs during hospitalization of acute changes/bleeds S/p subarachnoid hemorrhage: -Traumatic subarachnoid hemorrhage discovered on 01/23 -[place] [facility] [place] intervention required Dispo: Home - Self Care (2) Alcoholic hepatitis: (3) Anxiety: (4) GERD (gastroesophageal reflux disease): (5) Thrombocytopenia: Total Time Total Time Spent Total Time Spent (In Minutes): see attending attestation Discharge Plan Discharge Items Patient Disposition: Home - Self-Care Reason For Visit: ALCOHOL WITHDRAWL Discharge Diagnosis: Alcohol withdrawal Activity: Per Instructions section Non-emergency contact: Primary Care Provider Call non-emergency contact if: you have any medication questions and your symptoms worsen Follow-up/Referrals: [place] [facility] [Primary Care Provider] - Aristeo Philippe MD [Resident] - 04/16/21 12:50 pm (Please follow up with Dr. Philippe on Friday04/16/21 at 12:50 pm. Please arrive to the office at 12:35 pm for your appointment. If you are unable to keep this appointment, please call the office to resche melissa at [phone].) Diet: Regular Addtl Attending Provider Instructions: You were admitted to [facility] due to alcohol withdrawal symptoms. You were treated with a single dose of Valium and did not require any further medications for alcohol withdrawal. You progressed well and remained asymptomatic throughout your admission. Per our discussion, we do recommend alcohol cessation going forward and, as you expressed, you are interested in doing this as well. As such, we will prescribe oral naltrexone for you. This medication is also available intramuscularly, as we discussed. You will have to follow-up with your primary care provider for continued treatment of your alcohol use disorder with this medication and trying to get the injection form of it. Additionally we will prescribe mirtazapine to help with sleep. We recommend that you follow-up with your PCP within the next week for discussion of your hospitalization and treatment plan going forward. Additionally, we recommend that you seek counseling for your alcohol use disorder. Since you prefer not to undergo inpatient rehabilitation, we do recommend that you seek other options in the outpatient setting such as therapists, AA meetings, or any other community resources that may be available to you. Pending Studies at Discharge: No Stand-Alone Forms: My [facility], Smoking Cessation Medications and DC Order Prescriptions: New naltrexone 50 mg tablet 50 mg PO DAILY 30 Days Qty: 30 RF: 0 Continued fluticasone propion-salmeterol [Advair Diskus] 250-50 mcg/dose blister with device 1 inh inhalation QAM RF: 0 albuterol sulfate [Ventolin HFA] 90 mcg/actuation Hfa Aerosol Inhaler 2 puff INHALATION Q6H PRN (Reason: Shortness Of Breath) RF: 0 multivitamin [Daily-Harris] Tablet 1 tab PO QAM Qty: 0 RF: 0 insulin asp prt-insulin aspart [Novolog Mix 70-30 U-100 Insuln] 100 unit/mL (70-30) solution 5 - 10 unit SUBCUT BID PRN (Reason: DEPENDS ON BSG PER PT.) RF: 0 omeprazole 20 mg Capsule,Delayed Release(Dr/Ec) 20 mg PO DAILY PRN (Reason: Acid Reflux) RF: 0 famotidine 20 mg Tablet 20 mg PO DAILY PRN (Reason: Gi Upset) RF: 0 mirtazapine 15 mg Tablet 15 mg PO HS Qty: 30 RF: 0 folic acid 1 mg Tablet 1 mg PO QAM Qty: 30 RF: 0 melatonin 10 mg Tablet 10 mg PO HS PRN (Reason: Sleep) RF: 0 ascorbic acid (vitamin C) [Vitamin C] 500 mg Tablet Extended Release 500 mg PO DAILY RF: 0 vitamin B complex Tablet 1 tab PO DAILY RF: 0 Potassium Otc 1 tab PO BID RF: 0 Discharge Orders: Discharge Order (Routine); Ordered 04/11/21 Ordered By: Ramiro Dominguez/Other Patient Handouts: A1C, Managing Type 1 Diabetes Admission Data Admit Date/Time: 04/10/21 02:23 Attending Provider: Doris Elkins Admit Provider: Royce De Jesus Primary Care Provider: [place] Other Providers: Alexia Cardozo Other Interventions: Discharge Summary Assessment (RN) Last Done: 04/11/21 16:13 Supervising Physician Co-Signing Physician Notes Resident Physician Supervision Note: I independently interviewed and examined the patient and verified the wood history and physical, reviewed labs and image studies and agree with resident Dr. Xie findings and care plan. Resident Activity Tracking Resident Involvement: Resident Care Provided Care Provided: Adult Hospital Medicine
[2021-04-11 07:57] LABS: Estimated Average Glucose 128 mg/dl; Hemoglobin A1C 6.1 % (4.5-5.6)
[2021-04-11] MEDS ORDERED: PANTOprazole 40 MG TAB PO SCH (09:00)
[2021-04-11] MEDS ORDERED: INSULIN GLARGINE SOLOSTAR 100 UNITS/ML 3 ML PEN SC SCH (09:00)
[2021-04-11] MEDS: FLUTICASONE/VILANTEROL 100/25MCG 14 PUFFS/INHALER INH SCH (09:08)
[2021-04-11] MEDS: INSULIN ASPART 100 UNITS/ML 3 ML PEN SC SCH ×3 (09:08→17:39)
--- NOTE | 2021-04-11 11:32 | Electrocardiogram Report ---
Test Reason : Blood Pressure : / mmHG Vent. Rate : 086 BPM Atrial Rate : 086 BPM P-R Int : 100 ms QRS Dur : 096 ms QT Int : 390 ms P-R-T Axes : 050 030 038 degrees QTc Int : 466 ms Poor data quality, interpretation may be adversely affected Sinus rhythm with short DC Otherwise normal ECG When compared with ECG of 23-JAN-2021 15:12, No significant change was found Confirmed by Amaury Cagle ([id number]) on 04/11/2021 11:32:19 AM Referred By: REFERRED SELF Confirmed By:Amaury Cagle
[2021-04-11] MEDS: MULTIVITAMIN TAB PO SCH (11:57)
[2021-04-11] MEDS: FOLIC ACID 1 MG TAB PO SCH (11:57)
== END 2021-04-11 19:00 | disposition home or self-care (01) ==
LOC: ED 17:16 → 2S 04-10 02:02 → INTOOBSV 04-10 02:23 → 2S 04-10 02:23 → SUATTDRO 04-10 02:23

== ENCOUNTER 2021-06-10 16:13 | Inpatient (IN) ==
[2021-06-10] MEDS ORDERED: MULTI-VITAMIN INFUSION 10 ML, THIAMINE HCL 100 MG, FOLIC ACID 1 MG in SODIUM CHLORIDE 0... IV ONE (16:46)
[2021-06-10] MEDS ORDERED: LORazepam 1 MG/2 ML VIAL IV STA (16:46)
--- NOTE | 2021-06-10 17:24 | Emergency Department Note ---
Impression & Plan Depression with suicidal ideation, Elevated LFTs, Anxiety, Alcohol abuse, Acute alcoholic pancreatitis ED Provider Note Provider: Fermin Ruelas MD DATE OF SERVICE: 06/10/2021 CHIEF COMPLAINT: Suicidal HISTORY OF PRESENT ILLNESS: Patient is a 45-year-old female significant past medical history including alcohol abuse, diabetes, and anxiety presenting here today reporting worsening anxiety and now having thoughts of not wanting to be alive. Patient states she has been drinking daily somewhat heavily for the past 2 weeks and is fallen off the wagon. Patient states during this time she is been having thoughts of not wanting to wake up. She states she has not tried to harm her self and does not have a plan. Patient denies any HI or wishes to harm others. Patient reports significant social stressors at home from parents as well as some stress from daughter. Patient states she is currently unemployed. Patient denies recent drug use. States she is been more fatigued and sleeping more than normal. Patient does report a history of alcohol abuse again and some alcohol withdrawal but no seizures reported. Patient states it has been several hours since she had some vodka and feels a bit tremulous now. REVIEW OF SYSTEMS: A total of 10 review of systems was obtained and negative except as stated above in the HPI. PAST MEDICAL HISTORY: As noted above MEDICATIONS: Reviewed home medications SOCIAL HISTORY: Patient currently states she is unemployed and reports recent significant daily vodka usage PHYSICAL EXAM: GENERAL: alert and oriented but tearful and immediately grabs my hand to hold during the interview Head: normocephalic and atraumatic EYES: No injection, discharge or icterus. NECK: Trachea midline. Supple. ENT: Mucous membranes pink and moist. LUNGS: Airway patent. No retractions. Breath sounds clear with good air entry bilaterally. HEART: Regular mildly tachycardic rate and rhythm. No chest wall tenderness ABDOMEN: Soft and non-tender, without guarding or rebound. SKIN: Acyanotic, warm, dry, without rashes EXTREMITIES: Without swelling, tenderness or deformity NEUROLOGICAL: No focal deficits moving all extremities No aphasia. No facial d francisco or slurred speech. Psych: Patient reports significant depression and anxiety and is tearful on exam. She is somewhat tangential in her discussion. No response to external stimuli or hallucinations reported. She does have some slight tremor. EKG: Normal sinus rhythm 92 bpm. No PVC or PAC. No acute ST segment elevation or depression with some inferior T wave inversions. QTC 457. CONTINUOUS CARDIAC MONITORING: was ordered and showed a heart rate of 80s-110s bpm in normal sinus rhythm to sinus tachycardia Patient's laboratory studies and imaging reviewed. Differential includes Mood disorder, infection, hypoglycemia, electrolyte abnormalities, cardiac sources, intracerebral event, toxicologic, trauma, neurologic, as well as other pathologies. IMPRESSION/MEDICAL DECISION MAKING: Patient tearful and quite anxious on initial exam. Denies plan reports suicidal ideation. Patient states she has been drinking some which may be confounding variable to this. Patient thinks she may be going into withdrawal but only finished drinking several hours ago. Even her anxiety and some tachycardia given a small amount of Ativan here initially. Patient blood work was completed. Medical record reviewed with significant medical history of alcohol abuse and withdrawal noted but without history of seizures. Patient with a fairly benign abdomen on exam. Blood work returns with mild to moderate transaminitis as well as an elevated lipase over 1100. Alcohol level significantly elevated. Some anion gap likely from alcoholic ketosis noted. Again a banana bag was ordered for hydration and vitamin supplementation. Patient little more comfortable after some Ativan here. Patient has a history of head injury related to alcohol and subarachnoid hemorrhage in January of this year. Given this her significant alcohol usage and the lab findings discussed with the patient obtaining CT of the head and the abdomen pelvis to look for occult traumatic injury to the head given her alcohol abuse history as well as look for other occult intra-abdominal pathologies. CT the head per radiology with acute intracranial findings. CT abdomen pelvis per radiology with evidence of likely acute pancreatitis and cirrhosis with a question of some colitis. Patient has a benign abdomen and is not having significant nausea and vomiting or diarrhea and doubt colitis Given her history of the abnormality so feel the patient will require further medical care here at the hospital for her alcoholic pancreatitis/hepatitis as well as further psychiatric/anxiety care. Hospitalist was contacted. DIAGNOSIS: Depression with suicidal ideation, anxiety, alcohol abuse, alcoholic pancreatitis, transaminitis DISPOSITION: Hospitalist will evaluate Patient was agreeable with this plan. Past Med/Surg History Medical History (Updated 06/10/21 @ 19:55 by Fermin Ruelas M.D.) Acute alcoholic hepatitis Alcohol abuse Alcohol withdrawal Alcohol withdrawal Alcoholic hepatitis Alcoholic intoxication Anxiety Asthma Diabetes mellitus type 1 Surgical History History of dental surgery wisdom teeth History of esophagogastroduodenoscopy (EGD) Family History Father Prediabetes Grandfather (Paternal) Diabetes Mother Hypertension MVP (mitral valve prolapse) Social History Smoking Status: Former smoker Tobacco Type: Cigarettes Age Quit Using Tobacco: 39; packs per day: 1; Years Smoked: 2; Number of Years Since Quit: 4; Second Hand Exposure: No; Hx Alcohol Use: Yes Alcohol type: hard liquor Alcohol type Comment: 4 glasses wine daily Hx Substance Use: No Preferred Language: Tajik Communication Ability: Effective Visual Impairment: No Limitations Nursery Teacher Required: No Beliefs That Will Affect Care: None marital status: marital status details: Single parent Current Living Situation: Alone Current Living Situation Comment: daughter current occupational status: unemployed How many Children do You have: 1 Feels Safe at Home: Yes Childhood Exposure to Second-Hand Smoke: No Assistive Devices: Glasses Allergies Allergies Allergy/AdvReac Type Severity Reaction Status Date / Time theophylline AdvReac Intermediate VERTIGO Verified 04/09/21 23:29 Home Meds Home Medications Medication Instructions Recorded Confirmed fluticasone 250 mcg-salmeterol 50 1 inh INHALATION QAM 02/27/19 04/09/21 mcg/dose blistr powdr for inhalation (Advair Diskus) albuterol sulfate 90 mcg/actuation 2 puff INHALATION Q6H PRN 07/23/19 04/09/21 aerosol inhaler (Ventolin HFA) famotidine 20 mg tablet 20 mg PO DAILY PRN 11/10/20 04/09/21 insulin aspar prt-insulin aspart 5 - 10 unit SUBCUT BID PRN 11/10/20 04/09/21 100 unit/mL (70-30) subcutaneous soln (Novolog Mix 70-30 U-100 Insuln) omeprazole 20 mg capsule,delayed 20 mg PO DAILY PRN 11/10/20 04/09/21 release ascorbic acid (vitamin C) 500 mg 500 mg PO DAILY 04/05/21 04/09/21 tablet,extended release (Vitamin C ER) melatonin 10 mg tablet 10 mg PO HS PRN 04/05/21 04/09/21 Potassium Otc 1 tab PO BID 04/09/21 04/09/21 vitamin B complex 1 tab PO DAILY 04/09/21 04/09/21 Previous Rx's Medication Instructions Recorded multivitamin (Daily-Harris) 1 tab PO QAM #0 tab 07/27/19 mirtazapine 15 mg tablet 15 mg PO HS #30 tab 12/10/20 folic acid 1 mg tablet 1 mg PO QAM #30 tab 12/27/20 Results & Data (ED) Vital Signs Vital Signs - 24 hr 06/10/21 16:25 06/10/21 17:20 06/10/21 18:47 Temperature 37.1 C Temperature Source Oral Pulse Rate 115 H Pulse Rate [Apical] 95 H Pulse Rate [Finger] 115 H 94 H Pulse Rhythm [Apical] Regular Pulse Rhythm [Finger] Regular Regular Respiratory Rate 24 23 18 Respiratory Effort / Characteristics Non-Labored Spontaneous Non-Labored Spontaneous Non-Labored Spontaneous Respiratory Depth Normal Normal Normal Respiratory Pattern Regular Regular Regular Blood Pressure 136/89 Blood Pressure [Right Arm] 136/89 133/80 124/74 Blood Pressure Mean 104 Blood Pressure Mean [Right Arm] 104 97 90 Blood Pressure Position [Right Arm] Lying Lying Pulse Oximetry 96 95 98 Oxygen Delivery Method Room Air Room Air Room Air Sepsis Recent Fever Within 48 Hours No Sepsis New/Unexplained Change in Mental Status N/A Sepsis Action Taken by Nursing No Action Required Laboratory Data Result diagrams: 06/10/21 17:10 06/10/21 17:10 Lab Results 06/10/21 06/10/21 06/10/21 Range/Units 17:10 17:10 17:10 WBC 4.27 L (4.8-10.8) K/uL RBC 4.41 (4.2-5.4) M/uL Hgb 14.6 (12.0-16.0) g/dL Hct 40.0 (37-47) % MCV 90.7 (80-100) fL MCH 33.1 (25-34) pg MCHC 36.5 H (32-36) g/dL RDW Std Deviation 50.7 H (36.4-46.3) fL RDW Coeff of Suzanne 15.3 H (11.5-14.5) % Plt Count 115 L (130-400) K/uL MPV 11.4 H (7.4-10.4) fL Immature Gran % (Auto) 0.0 % Neut % (Auto) 58.3 % Lymph % (Auto) 33.5 % [place] % (Auto) 7.5 % Eos % (Auto) 0.0 % Baso % (Auto) 0.7 % Neut # (Auto) 2.49 (1.4-6.5) K/uL Lymph # (Auto) 1.43 (1.2-3.4) K/uL [place] # (Auto) 0.32 (0.11-0.59) K/uL Eos # (Auto) 0.00 (0-0.5) K/uL Baso # (Auto) 0.03 (0-0.2) K/uL Immature Gran # (Auto) 0.00 (0.00-0.02) K/uL PT (9.0-12.0) Seconds INR (0.9-1.1) Sodium 133 L (136-145) mmol/L Potassium 4.4 (3.5-5.1) mmol/L Chloride 96 L (98-107) mmol/L Carbon Dioxide 16 L (21-32) mmol/L Anion Gap 21.0 H (3-11) BUN 20 H (7-18) mg/dl Creatinine 0.82 (0.6-1.2) mg/dl Est Cr Clr Drug Dosing 75.0 ml/min Est GFR ( Amer) 100.2 ml/min Est GFR (Non-Af Amer) 86.4 ml/min BUN/Creatinine Ratio 24.4 H (10-20) Glucose 133 H (70-99) mg/dl Calcium 9.8 (8.5-10.1) mg/dl Total Bilirubin 1.3 H (0.2-1) mg/dl AST 384 H (15-37) U/L ALT 168 H (12-78) Alkaline Phosphatase 244 H D (45-117) U/L Total Protein 8.4 H (6.4-8.2) gm/dl Albumin 4.4 (3.4-5.0) gm/dl Globulin 4.0 (2.5-4.0) gm/dl Albumin/Globulin Ratio 1.1 (0.9-2) Lipase 1187 H (73-393) U/L TSH 1.590 (0.300-4.500) uIu/ml HCG, Qual (Negative) Salicylates < 1.7 L (2.8-20) mg/dl Acetaminophen < 2 L (10-30) ug/ml Ethyl Alcohol mg/dL (0-3) mg/dl SARS-CoV-2, RNA, NAAT (NEGATIVE) 06/10/21 06/10/21 06/10/21 Range/Units 17:10 17:10 17:10 WBC (4.8-10.8) K/uL RBC (4.2-5.4) M/uL Hgb (12.0-16.0) g/dL Hct (37-47) % MCV (80-100) fL MCH (25-34) pg MCHC (32-36) g/dL RDW Std Deviation (36.4-46.3) fL RDW Coeff of Suzanne (11.5-14.5) % Plt Count (130-400) K/uL MPV (7.4-10.4) fL Immature Gran % (Auto) % Neut % (Auto) % Lymph % (Auto) % [place] % (Auto) % Eos % (Auto) % Baso % (Auto) % Neut # (Auto) (1.4-6.5) K/uL Lymph # (Auto) (1.2-3.4) K/uL [place] # (Auto) (0.11-0.59) K/uL Eos # (Auto) (0-0.5) K/uL Baso # (Auto) (0-0.2) K/uL Immature Gran # (Auto) (0.00-0.02) K/uL PT 13.5 H (9.0-12.0) Seconds INR 1.4 H (0.9-1.1) Sodium (136-145) mmol/L Potassium (3.5-5.1) mmol/L Chloride (98-107) mmol/L Carbon Dioxide (21-32) mmol/L Anion Gap (3-11) BUN (7-18) mg/dl Creatinine (0.6-1.2) mg/dl Est Cr Clr Drug Dosing ml/min Est GFR ( Amer) ml/min Est GFR (Non-Af Amer) ml/min BUN/Creatinine Ratio (10-20) Glucose (70-99) mg/dl Calcium (8.5-10.1) mg/dl Total Bilirubin (0.2-1) mg/dl AST (15-37) U/L ALT (12-78) Alkaline Phosphatase (45-117) U/L Total Protein (6.4-8.2) gm/dl Albumin (3.4-5.0) gm/dl Globulin (2.5-4.0) gm/dl Albumin/Globulin Ratio (0.9-2) Lipase (73-393) U/L TSH (0.300-4.500) uIu/ml HCG, Qual Negative (Negative) Salicylates (2.8-20) mg/dl Acetaminophen (10-30) ug/ml Ethyl Alcohol mg/dL 338.0 H (0-3) mg/dl SARS-CoV-2, RNA, NAAT (NEGATIVE) 06/10/21 Range/Units 17:28 WBC (4.8-10.8) K/uL RBC (4.2-5.4) M/uL Hgb (12.0-16.0) g/dL Hct (37-47) % MCV (80-100) fL MCH (25-34) pg MCHC (32-36) g/dL RDW Std Deviation (36.4-46.3) fL RDW Coeff of Suzanne (11.5-14.5) % Plt Count (130-400) K/uL MPV (7.4-10.4) fL Immature Gran % (Auto) % Neut % (Auto) % Lymph % (Auto) % [place] % (Auto) % Eos % (Auto) % Baso % (Auto) % Neut # (Auto) (1.4-6.5) K/uL Lymph # (Auto) (1.2-3.4) K/uL [place] # (Auto) (0.11-0.59) K/uL Eos # (Auto) (0-0.5) K/uL Baso # (Auto) (0-0.2) K/uL Immature Gran # (Auto) (0.00-0.02) K/uL PT (9.0-12.0) Seconds INR (0.9-1.1) Sodium (136-145) mmol/L Potassium (3.5-5.1) mmol/L Chloride (98-107) mmol/L Carbon Dioxide (21-32) mmol/L Anion Gap (3-11) BUN (7-18) mg/dl Creatinine (0.6-1.2) mg/dl Est Cr Clr Drug Dosing ml/min Est GFR ( Amer) ml/min Est GFR (Non-Af Amer) ml/min BUN/Creatinine Ratio (10-20) Glucose (70-99) mg/dl Calcium (8.5-10.1) mg/dl Total Bilirubin (0.2-1) mg/dl AST (15-37) U/L ALT (12-78) Alkaline Phosphatase (45-117) U/L Total Protein (6.4-8.2) gm/dl Albumin (3.4-5.0) gm/dl Globulin (2.5-4.0) gm/dl Albumin/Globulin Ratio (0.9-2) Lipase (73-393) U/L TSH (0.300-4.500) uIu/ml HCG, Qual (Negative) Salicylates (2.8-20) mg/dl Acetaminophen (10-30) ug/ml Ethyl Alcohol mg/dL (0-3) mg/dl SARS-CoV-2, RNA, NAAT NEGATIVE (NEGATIVE) Administered Medications Discontinued Medications Multivitamins 10 ml/ Thiamine HCl 100 mg/ Folic Acid 1 mg/Sodium Chloride 1,011.2 mls @ 1,011.2 mls/hr IV .Q1H ONE Stop: 06/10/21 17:45 Last Admin: 06/10/21 18:44 Dose: 1,011.2 mls/hr Documented by: [id number] Lorazepam (Ativan) 1 mg in 2 mls @ 2 mls/min IV NOW STA Stop: 06/10/21 16:47 Last Admin: 06/10/21 17:19 Dose: 2 mls/min Documented by: [id number] Ioversol (Optiray 320 100ml) 95 ml IV ONCE ONE Stop: 06/10/21 19:37 Last Admin: 06/10/21 19:36 Dose: 95 ml Documented by: [id number] Imaging Data Radiologist's Impression: Abdomen/Pelvis CT 06/10/21 18:[address] WITH IV CONTRAST CT DOSE: 872.49 mGy.cm HISTORY: Acutely elevated lipase with alcoholism elev lipase, alcohol hx TECHNIQUE: Multiaxial CT images of the abdomen and pelvis were performed following the IV administration of 95 cc of Optiray, A dose lowering technique was utilized adhering to the principles of ALARA. COMPARISON STUDY: CT abdomen and pelvis 01/23/2021 FINDINGS: The imaged inferior cardiac chambers are unremarkable. Clear lung bases. No pneumatosis or pneumoperitoneum. The spleen is mildly enlarged. Moderately atrophic pancreas. There is mild interstitial and peripancreatic edema with trace free fluid adjacent to the duodenum tracking into the mesentery, and pelvis. Trace free fluid within the pericolic gutters. No pancreatic ductal dilation. Patent portal vein. The adrenal glands and gallbladder are unremarkable. Markedly heterogeneous liver with hepatic steatosis and mild mar ginal nodularity redemonstrated. 4 mm nonobstructing calculus of the interpolar left kidney. No ureteral calculi or hydronephrosis. Moderate urinary bladder distention. Follicular changes of the ovaries. Unremarkable uterus. Aorta and IVC are unremarkable. There is no adenopathy. Mild wall thickening of the duodenum is likely reactive. Mild wall thickening with partial distention of the cecum, ascending colon and hepatic flexure. Unremarkable soft tissues. There is no acute fracture. IMPRESSION: 1. Moderately atrophic pancreas with mild interstitial and peripancreatic edema suspicious for acute pancreatitis. Edema and trace fluid tracks into the pericolic gutters and dependent pelvis. 2. Marked heterogeneity of the liver with hepatic steatosis and suggested cirrhosis. 3. Wall thickening of the cecum, ascending colon and hepatic flexure is likely related to portal colopathy. A nonspecific colitis is considered less likely. 4. Mild splenomegaly. 5. Nonobstructing left nephrolithiasis. ACT 112: Negative or not required by law. The above report was generated using voice recognition software. It may contain grammatical, syntax or spelling errors. Electronically signed by: Tony Carney M.D. 06/10/2021 7:[address] 06/10/21 18:18 CT head/brain wo con CLINICAL HISTORY: 45 years-old Female with etoh, depression. Acute depression TECHNIQUE: Multiple axial CT images of the head were obtained without contrast. A dose lowering technique was utilized adhering to the principles of ALARA. COMPARISON: Head CT 02/20/2021 FINDINGS: No acute intracranial hemorrhage, midline shift, intracranial mass, hydrocephalus, territorial ischemia or abnormal extra-axial collection. The calvarium is intact. The paranasal sinuses, mastoid air cells, and middle ear cavities are clear. IMPRESSION: No acute intracranial abnormality. ACT 112: Negative or not required by law. The above report was generated using voice recognition software. It may contain grammatical, syntax or spelling errors. Electronically signed by: Tony Carney M.D. 06/10/2021 7:47 PM Discharge Plan Visit Data Chief Complaint: Anxiety ED Provider: Fermin Ruelas Discharge Problem: Depression with suicidal ideation, Elevated LFTs, Anxiety, Alcohol abuse, Acute alcoholic pancreatitis Patient Disposition: Being Evaluated by Hospitalist Forms Stand Alone Forms: [facility] [email or web address], Suicide Prevention Resources Prescriptions Prescriptions: No Action fluticasone propion-salmeterol [Advair Diskus] 250-50 mcg/dose blister with device 1 inh inhalation QAM RF: 0 albuterol sulfate [Ventolin HFA] 90 mcg/actuation Hfa Aerosol Inhaler 2 puff INHALATION Q6H PRN (Reason: Shortness Of Breath) RF: 0 multivitamin [Daily-Harris] Tablet 1 tab PO QAM Qty: 0 RF: 0 insulin asp prt-insulin aspart [Novolog Mix 70-30 U-100 Insuln] 100 unit/mL (70-30) solution 5 - 10 unit SUBCUT BID PRN (Reason: DEPENDS ON BSG PER PT.) RF: 0 omeprazole 20 mg Capsule,Delayed Release(Dr/Ec) 20 mg PO DAILY PRN (Reason: Acid Reflux) RF: 0 famotidine 20 mg Tablet 20 mg PO DAILY PRN (Reason: Gi Upset) RF: 0 mirtazapine 15 mg Tablet 15 mg PO HS Qty: 30 RF: 0 folic acid 1 mg Tablet 1 mg PO QAM Qty: 30 RF: 0 melatonin 10 mg Tablet 10 mg PO HS PRN (Reason: Sleep) RF: 0 ascorbic acid (vitamin C) [Vitamin C] 500 mg Tablet Extended Release 500 mg PO DAILY RF: 0 vitamin B complex Tablet 1 tab PO DAILY RF: 0 Potassium Otc 1 tab PO BID RF: 0 Referrals Referrals: [facility] [Primary Care Provider] - Discharge Problem: Acute alcoholic pancreatitis Qualifiers: Acute pancreatitis complication: unspecified Qualified Code(s): K85.20 - Alcohol induced acute pancreatitis without necrosis or infection
[2021-06-10 17:38] LABS: Basophils # (auto) 0.03 K/uL (0-0.2); Basophils % (auto) 0.7 %; Hemoglobin 14.6 g/dL (12.0-16.0); Lymphocytes # (auto) 1.43 K/uL (1.2-3.4); Lymphocytes % (auto) 33.5 %; Mean Corpuscular Hemoglobin 33.1 pg (25-34); Mean Corpuscular Hgb Conc 36.5 g/dL (32-36); Mean Corpuscular Volume 90.7 fL (80-100); Mean Platelet Volume 11.4 fL (7.4-10.4); Monocytes # (auto) 0.32 K/uL (0.11-0.59); Monocytes % (auto) 7.5 %; Neutrophils # (auto) 2.49 K/uL (1.4-6.5); Neutrophils % (auto) 58.3 %; Platelet Count 115 K/uL (130-400); RDW Coefficient of Variation 15.3 % (11.5-14.5); RDW Standard Deviation 50.7 fL (36.4-46.3); Red Blood Count 4.41 M/uL (4.2-5.4); White Blood Count 4.27 K/uL (4.8-10.8)
[2021-06-10 17:47] LABS: INR 1.4 (0.9-1.1); Prothrombin Time 13.5 Seconds (9.0-12.0)
[2021-06-10 17:51] LABS: Albumin Level 4.4 gm/dl (3.4-5.0); BUN Creatinine Ratio 24.4 (10-20); Calcium 9.8 mg/dl (8.5-10.1); Est GFR (African American) 100.2 ml/min; Est GFR (Non-African American) 86.4 ml/min; Potassium 4.4 mmol/L (3.5-5.1)
[2021-06-10 18:02] LABS: Albumin Globulin Ratio 1.1 (0.9-2); Bilirubin,Total 1.3 mg/dl (0.2-1); Thyroid Stimulating Hormone 1.59 uIu/ml (0.300-4.500); Total Protein 8.4 gm/dl (6.4-8.2)
[2021-06-10 18:08] LABS: Acetaminophen < 2 ug/ml (10-30)
[2021-06-10 18:09] LABS: Salicylate < 1.7 mg/dl (2.8-20)
[2021-06-10 18:11] LABS: Pregnancy Test, Serum Negative (Negative)
[2021-06-10] MEDS ORDERED: OPTIRAY 320 100ml IV ONE (19:36)
--- NOTE | 2021-06-10 19:41 | History & Physical Report ---
Date of Service June 10, 2021 Assessment & Plan (1) Acute pancreatitis: Plan: 45 yo F Hx diabetes, alcohol use disorder, recurrent pancreatitis, hepatic steatosis and cirrhosis, asthma, anxiety, neutropenia, and thrombocytopenia admitted for acute alcohol pancreatitis and hepatitis, as well as acute treatment of alcohol withdrawal. Alcohol pancreatitis: Presenting with nausea and decreased PO intake with significant increase in alcohol use over the last few weeks. Lipase elevated at 1187 with CTAP findings suggestive of acute pancreatitis; no evidence of necrotizing pancreatitis nor of pancreatic pseudocyst. Received banana bag in ER; will continue with LR at 200cc/hr for aggressive hydration. NPO for now with escalation of diet as patient tolerates. Dilaudid ordered as needed for acute pain. Zofran prn nausea. Hepatic steatosis, alcohol hepatitis, cirrhosis: History of severe hepatic steatosis for several years, with development of cirrhosis on abdomen imaging in 10/2020. Most recent admission in 03/2021 for alcoholic hepatitis without evidence of hepatic encephalopathy. No evidence this admission of ascites on imaging. RUQ US given increased Alk Phos from typical to ensure no concurrent gallbladder pathology. MELD score of 11 today, with Discriminant Function of 8.3, no indication for systemic steroid therapy. No evidence of encephalopathy today; AAO x3 with ammonia level of 35. Recheck if worsening mental status with consideration for lactulose/Rifaximin. Alcohol withdrawal: History of significant alcohol use with several admissions in the past for acute withdrawal. Patient at time of my interview no longer wants to use alcohol but feels powerless to her addiction. AWSS withdrawal protocol initiated, as well as Librium taper given that patient is having active withdrawal symptoms with very little interval between alcoholic beverages. outside sales account manager consulted for assistance with inpatient/outpatient alcohol rehab options. Nutrition consult placed, as patient is likely malnourished given several weeks increased alcohol intake and subsequent decreased food intake. Metabolic acidosis: On presentation with gapped metabolic acidosis. Secondary to alcohol acidosis. Aggressive IV fluids ordered for overnight; suspect improvement in acidosis with IV fluids. Repeat CMP in AM. Suicidal ideation: Presented to ER with suicidal ideation, though no active plan. Psych consulted. Patient will be evaluated by liaison. Suicide precautions now, and suicide tray once tolerating PO intake. Neutropenia, thrombocytopenia: History of, stable. Secondary to impaired platelet production, bone marrow suppression. No interventions at this time. Daily CBC while admitted. DM1: A1c 6.1 on 04/10/21. Holding home regimen in favor of basal/bolus insulin. Adjust parameters as patient increases PO intake. Code Status: FULL CODE FEN: NPO, LR at 200cc/hr DVT ppx: SCDs Dispo: Telemetry (2) Asthma: (3) Suicidal ideation: (4) Alcohol abuse: (5) GERD (gastroesophageal reflux disease): (6) Diabetes: (7) Anxiety: (8) Cirrhosis: (9) Hepatic steatosis: (10) Splenomegaly: (11) Thrombocytopenia: (12) Leukocytopenia, unspecified: (13) Acidosis, metabolic: History of Present Illness Chief Complaint: suicidal ideation, anxiety, pancreatitis Primary Care Provider: [place] 45 yo F Hx diabetes, alcohol use disorder, recurrent pancreatitis, hepatic steatosis and cirrhosis, asthma, anxiety, subarachnoid hemorrhage, neutropenia, and thrombocytopenia presented to the ER for increase in alcohol use and reports of suicidal ideation and worsening anxiety. In the ER she was given Ativan 1mg IV with improvement in tremulousness and anxiety. She reports on history that josé manuel martin was admitted in March for similar symptoms, and was doing wel for a few weeks with regard to her alcohol intake, however over the last two weeks has "fallen off of the wagon" due to family stressors (daughter not getting into college yet, father having suicidal ideation, unable to get a job). She has been using alcohol to cope and has been drinking several glasses of wine daily as well as some amount of liquor. She denies drug use. She denies seizures and hallucinations. She endorses wishing she would "not wake up", but does not have any intent to harm others. She states that she is "sick of herself for not being able to stay clean". She does not endorse abdominal pain, chest pain, SOB, vomiting, fevers. She admits to some nausea and decreased appetite over the last several days. In the ER patient had CT Head without acute abnormalities. CTAP with IV contrast showed evidence of acute pancreatitis without pancreatic pseudocyst or signs of necrosis, hepatic steatosis and evidence of cirrhosis, and mild splenomegaly. She was noted on labwork to have leukopenia and thrombocytopenia, INR of 1.4, gapped metabolic acidosis, TBili 1.3, elevated transaminases with 2:1 AST/ALT ratio, elevated Alk Phos, ammonia 35.3, lipase 1187, and ethyl alcohol level of 338. Allergies Allergy/AdvReac Type Severity Reaction Status Date / Time theophylline AdvReac Intermediate VERTIGO Verified 06/10/21 20:50 Home Medications Medication Instructions Recorded Confirmed Type fluticasone 250 mcg-salmeterol 50 1 inh INHALATION QAM 02/27/19 06/10/21 History mcg/dose blistr powdr for inhalation (Advair Diskus) albuterol sulfate 90 mcg/actuation 2 puff INHALATION Q6H PRN 07/23/19 06/10/21 History aerosol inhaler (Ventolin HFA) multivitamin (Daily-Harris) 1 tab PO QAM #0 tab 07/27/19 06/10/21 Rx famotidine 20 mg tablet 20 mg PO DAILY PRN 11/10/20 06/10/21 History insulin aspar prt-insulin aspart 10 - 15 unit SUBCUT BID PRN 11/10/20 06/10/21 History 100 unit/mL (70-30) subcutaneous soln (Novolog Mix 70-30 U-100 Insuln) omeprazole 20 mg capsule,delayed 20 mg PO DAILY PRN 11/10/20 06/10/21 History release mirtazapine 15 mg tablet 15 mg PO HS #30 tab 12/10/20 06/10/21 Rx ascorbic acid (vitamin C) 500 mg 500 mg PO DAILY 04/05/21 06/10/21 History tablet,extended release (Vitamin C ER) melatonin 10 mg tablet 10 mg PO HS PRN 04/05/21 06/10/21 History Potassium Otc 1 tab PO BID 04/09/21 06/10/21 History vitamin B complex 1 tab PO DAILY 04/09/21 06/10/21 History Past Med/Surg History Medical History Acute alcoholic hepatitis Alcohol abuse Alcohol withdrawal Alcohol withdrawal Alcoholic hepatitis Alcoholic intoxication Anxiety Asthma Diabetes mellitus type 1 Surgical History History of dental surgery wisdom teeth History of esophagogastroduodenoscopy (EGD) Family History Father Prediabetes Grandfather (Paternal) Diabetes Mother Hypertension MVP (mitral valve prolapse) Social History Smoking Status: Unknown if ever smoked Tobacco Type: Cigarettes Age Quit Using Tobacco: 39; packs per day: 1; Years Smoked: 2; Number of Years Since Quit: 4; Second Hand Exposure: No; Hx Alcohol Use: Yes Alcohol type: hard liquor Alcohol type Comment: 4 glasses wine daily Hx Substance Use: No Preferred Language: [place] Communication Ability: Effective Visual Impairment: No Limitations Digital Artist Required: No Beliefs That Will Affect Care: None marital status: marital status details: Single parent Current Living Situation: Alone Current Living Situation Comment: daughter current occupational status: unemployed How many Children do You have: 1 Feels Safe at Home: Yes Childhood Exposure to Second-Hand Smoke: No Assistive Devices: None Review of Systems Review of Systems: All systems reviewed & are unremarkable except as noted in HPI & below Constitutional: + malaise; no fever and no chills Respiratory: no cough and no dyspnea Cardiovascular: no chest pain, no palpitations and no edema Gastrointestinal: + nausea; no abdominal pain, no vomiting, no constipation and no diarrhea/loose stools Genitourinary: no dysuria and no hematuria Physical Exam Constitutional: WD/WN, vitals as above Eyes: PERRL, conjunctivae normal, anicteric sclerae ENMT: external ear and nose normal, oropharynx normal Neck: normal visual inspection Respiratory: normal respiratory effort, lungs clear to auscultation Cardiovascular: Rate/Rhythm: regular rhythm and + tachycardic Heart Sounds: no murmur Extremities: no edema Gastrointestinal (Abdomen): Inspection/Auscultation: normal bowel sounds; no visible peristalsis and caput medusae absent hepatomegaly noted on exam Musculoskeletal: no cyanosis or clubbing, extremities motor strength 5/5 Skin: no rashes, warm and dry Neurologic: AAOx3, normal speech. PERRLA, EOMI, no nystagmus. Normal visual acuity bilaterally. Bilateral UE, LE, and face without sensory or motor deficits. Resting tremor of the hands. Psychiatric: Orientation: alert and oriented x 3 Eye Contact: good eye contact Speech: normal rate/rhythm/volume of speech Affect: + anxious affect Suicidal Thoughts: + reports suicidal thoughts Hallucinations: no auditory hallucinations, no visual hallucinations and no tactile hallucinations Results & Data Results & Data ([facility]) Vital Signs (Past 12 Hours) Vital Signs Temp Pulse Pulse Pulse Resp BP BP 06/10/21 18:47 95 H 18 124/74 06/10/21 17:20 94 H 23 133/80 06/10/21 16:25 37.1 C 115 H 115 H 24 136/89 136/89 Pulse Ox 06/10/21 18:47 98 06/10/21 17:20 95 06/10/21 16:25 96 Code Status & VTE Plan VTE Prophylaxis Plan VTE Prophylaxis will be ordered: Yes Supervising Physician Co-Signing Physician Notes Attending addendum: I have physically seen this patient, have supervised the medical residents activities, and agree with the H&P unless as otherwise noted. Assessment and Plan: Acute alcoholic hepatitis/pancreatitis- [facility] JAMESON S protocol Folic acid and thiamine supplementation Rehydration per protocol Alcohol abuse- Counseling Remaining orders and notations as noted Resident Activity Tracking Resident Involvement: Resident Care Provided Care Provided: Adult Hospital Medicine (1) Diabetes Diabetes mellitus complication status: without complication Diabetes mellitus usp insulin use: unspecified exterminator helper termite insulin use status Diabetes mellitus type: due to underlying condition Qualified Code(s): E08.9 - Diabetes mellitus due to underlying condition without complications (2) GERD (gastroesophageal reflux disease) Esophagitis presence: without esophagitis Qualified Code(s): K21.9 - Gastro- esophageal reflux disease without esophagitis (3) Asthma Asthma complication type: unspecified Asthma persistence: unspecified Asthma severity: unspecified severity Qualified Code(s): J45.909 - Unspecified asthma, uncomplicated
--- NOTE | 2021-06-10 19:48 | CT Scan Report ---
CT head/brain wo con CLINICAL HISTORY: 45 years-old Female with etoh, depression. Acute depression TECHNIQUE: Multiple axial CT images of the head were obtained without contrast. A dose lowering tech nique was utilized adhering to the principles of ALARA. COMPARISON: Head CT 02/20/2021 FINDINGS: No acute intracranial hemorrhage, midline shift, intracranial mass, hydrocephalus, territorial ischem ia or abnormal extra-axial collection. The calvarium is intact. The paranasal sinuses, mastoid air cells, and middle ear cavities are clear . IMPRESSION: No acute intracranial abnormality. ACT 112: Negative or not required by law. The above report was generated using voice recognition software. It may contain grammatical, syntax o r spelling errors. Electronically signed by: Tony Carney M.D. 06/10/2021 7:47 PM
--- NOTE | 2021-06-10 19:55 | CT Scan Report ---
ABDOMEN AND PELVIS CT WITH IV CONTRAST CT DOSE: 872.49 mGy.cm HISTORY: Acutely elevated lipase with alcoholism elev lipase, alcohol hx TECHNIQUE: Multiaxial CT images of the abdomen and pelvis were performed following the IV administrat ion of 95 cc of Optiray, A dose lowering technique was utilized adhering to the principles of ALARA. COMPARISON STUDY: CT abdomen and pelvis 01/23/2021 FINDINGS: The imaged inferior cardiac chambers are unremarkable. Clear lung bases. No pneumatosis or pneumoperi toneum. The spleen is mildly enlarged. Moderately atrophic pancreas. There is mild interstitial and p eripancreatic edema with trace free fluid adjacent to the duodenum tracking into the mesentery, and p rosalina. Trace free fluid within the pericolic gutters. No pancreatic ductal dilation. Patent portal ve in. The adrenal glands and gallbladder are unremarkable. Markedly heterogeneous liver with hepatic st eatosis and mild marginal nodularity redemonstrated. 4 mm nonobstructing calculus of the interpolar left kidney. No ureteral calculi or hydronephrosis. Mo derate urinary bladder distention. Follicular changes of the ovaries. Unremarkable uterus. Aorta and IVC are unremarkable. There is no adenopathy. Mild wall thickening of the duodenum is likely reactive . Mild wall thickening with partial distention of the cecum, ascending colon and hepatic flexure. Unr emarkable soft tissues. There is no acute fracture. IMPRESSION: 1. Moderately atrophic pancreas with mild interstitial and peripancreatic edema suspicious for acute pancreatitis. Edema and trace fluid tracks into the pericolic gutters and dependent pelvis. 2. Marked heterogeneity of the liver with hepatic steatosis and suggested cirrhosis. 3. Wall thickening of the cecum, ascending colon and hepatic flexure is likely related to portal colo aries. A nonspecific colitis is considered less likely. 4. Mild splenomegaly. 5. Nonobstructing left nephrolithiasis. ACT 112: Negative or not required by law. The above report was generated using voice recognition software. It may contain grammatical, syntax o r spelling errors. Electronically signed by: Tony Carney M.D. 06/10/2021 7:53 PM
[2021-06-10] MEDS ORDERED: GLUCOSE 40% GEL 15 GM TUBE PO PRN (20:02)
[2021-06-10] MEDS ORDERED: GLUCAGON FOR INJ 1 MG VIAL SQ PRN (20:02)
[2021-06-10] MEDS ORDERED: GLUCOSE 10 TABS/TUBE PO PRN (20:02)
[2021-06-10] MEDS ORDERED: DEXTROSE 50% 50 ML SYRINGE IV PRN (20:02)
[2021-06-10] MEDS ORDERED: ATIVAN IV ALCOHOL WITHDRAWL IV PRN (20:02)
[2021-06-10] MEDS ORDERED: LORazepam 3 MG/6 ML VIAL IV PRN (20:02)
[2021-06-10] MEDS ORDERED: chlordiazePOXIDE ALCOHOL WITHDRAWL 50MG PO STA (20:02)
[2021-06-10] MEDS ORDERED: CARBOHYDRATES FOR HYPOGLYCEMIA PO PRN (20:02)
[2021-06-10] MEDS ORDERED: INSULIN ASPART PER UNIT SC SCH (21:00)
[2021-06-10] MEDS: LORazepam 2 MG/4 ML VIAL IV PRN (23:51)
[2021-06-11] MEDS: INSULIN GLARGINE SOLOSTAR 100 UNITS/ML 3 ML PEN SC SCH ×3 (00:01→20:40)
[2021-06-11] MEDS ORDERED: MoRPHine SULFATE 4 MG/ML 1 ML CARP\\VIAL IV PRN (02:47)
[2021-06-11] MEDS ORDERED: ALBUTEROL HFA 8 GM INHALER INH PRN (02:47)
[2021-06-11] MEDS ORDERED: MELATONIN 3 MG TAB PO PRN (02:54)
[2021-06-11] MEDS: chlordiazePOXIDE HCl 25 MG CAP PO SCH ×4 (03:23→18:21)
[2021-06-11] MEDS: LACTATED RINGER'S 1,000 ML IV SCH ×4 (03:32→20:42)
[2021-06-11] MEDS: LORazepam 1 MG/2 ML VIAL IV PRN ×2 (04:28→07:22)
[2021-06-11] MEDS: ONDANSETRON INJ 2 MG/ML 2 ML VIAL IV PRN ×3 (05:16→22:39)
[2021-06-11] MEDS: INSULIN ASPART PER UNIT SC SCH ×3 (06:14→18:19)
--- NOTE | 2021-06-11 07:54 | Ultrasound Report ---
US liver CLINICAL HISTORY: Right upper quadrant pain and nausea. Elevated liver function tests. COMPARISON STUDY: Right upper quadrant ultrasound November 11, 2020. CT of the abdomen and pelvis Decee r 2020. FINDINGS: The liver is echogenic and heterogeneous. The liver is enlarged, measuring 24 cm in maximal sagittal dimension. No hepatic lesions are identified although sensitivity is diminished on this exa mination. There is no biliary ductal dilatation. The common bile duct measures 4 mm in caliber. Pancr eas is largely obscured on this examination. No gallstones are noted. There is trace perihepatic and pericholecystic fluid. Gallbladder is not distended. Sonographic Duckworth sign could not be assessed fo r in this patient. There is no right hydronephrosis. IMPRESSION: 1. Hepatic steatosis and hepatomegaly. Probable cirrhosis. 2. No gallstones or biliary ductal dilatation. 3. Largely obscured pancreas. ACT 112: Negative or not required by law. Electronically signed by: Kishore Brown M.D. 06/11/2021 7:52 AM
--- NOTE | 2021-06-11 08:23 | Hospitalist Progress Note ---
Date of Service June 11, 2021 Assessment & Plan (1) Acute pancreatitis: Plan: 45 yo F Hx diabetes, alcohol use disorder, recurrent pancreatitis, hepatic steatosis and cirrhosis, asthma, anxiety, neutropenia, and thrombocytopenia admitted for acute alcohol pancreatitis and hepatitis, as well as acute treatment of alcohol withdrawal. Alcohol pancreatitis: Presenting with nausea and decreased PO intake with significant increase in alcohol use over the last few weeks. Lipase elevated at 1187 with CTAP findings suggestive of acute pancreatitis; no evidence of necrotizing pancreatitis nor of pancreatic pseudocyst. Received banana bag in ER; will continue with LR at 200cc/hr for aggressive hydration. NPO for now with escalation of diet as patient tolerates. 06/11 attempted clear diet patient did not tolerate Dilaudid ordered as needed for acute pain. Tylenol 500mg q6hr PRN for pain. Zofran prn nausea. ordered 1x10mg famotidine Hepatic steatosis, alcohol hepatitis, cirrhosis: History of severe hepatic steatosis for several years, with development of cirrhosis on abdomen imaging in 10/2020. Most recent admission in 03/2021 for alcoholic hepatitis without evidence of hepatic encephalopathy. No evidence this admission of ascites on imaging. RUQ US given increased Alk Phos from typical to ensure no concurrent gallbladder pathology. MELD score of 11 today, with Discriminant Function of 8.3, no indication for systemic steroid therapy. No evidence of encephalopathy today; AAO x3 with ammonia level of 35. Recheck if worsening mental status with consideration for lactulose/Rifaximin. Alcohol withdrawal: History of significant alcohol use with several admissions in the past for acute withdrawal. Patient at time of my interview no longer wants to use alcohol but feels powerless to her addiction. AWSS withdrawal protocol initiated, as well as Librium taper given that patient is having active withdrawal symptoms with very little interval between alcoholic beverages. carbon sequestration plant manager consulted for assistance with inpatient/outpatient alcohol rehab options. Nutrition consult placed, as patient is likely malnourished given several weeks increased alcohol intake and subsequent decreased food intake. Metabolic acidosis: On presentation with gapped metabolic acidosis. Secondary to alcohol acidosis. Aggressive IV fluids ordered for overnight; suspect improvement in acidosis with IV fluids. Repeat CMP in AM. Suicidal ideation: Presented to ER with suicidal ideation, though no active plan. Psych consulted. Patient will be evaluated by liaison. patient found to be passively suicidal under alcohol influence, currently denies suicidal ideation, denies needed inpatient rehab, considering meeting with AA again Suicide precautions now, and suicide tray once tolerating PO intake. Neutropenia, thrombocytopenia: History of, stable. Secondary to impaired platelet production, bone marrow suppression. No interventions at this time. Daily CBC while admitted. DM1: A1c 6.1 on 04/10/21. Holding home regimen in favor of basal/bolus insulin. Adjust parameters as patient increases PO intake. continue insulin glargine only while NPO Ordered beta-hydroxybuteric acid, lab pending Code Status: FULL CODE FEN: NPO, LR at 200cc/hr DVT ppx: SCDs Dispo: Telemetry (2) Asthma: (3) Suicidal ideation: (4) Alcohol abuse: (5) GERD (gastroesophageal reflux disease): (6) Diabetes: (7) Anxiety: (8) Cirrhosis: (9) Hepatic steatosis: (10) Splenomegaly: (11) Thrombocytopenia: (12) Leukocytopenia, unspecified: (13) Acidosis, metabolic: Admission and Anticipated Discharge Date Admission Date: June 10, 2021 Supervising Physician Co-Signing Physician Notes Marcus is a 45-year-old female with a past medical history of alcohol abuse, alcoholic hepatitis/cirrhosis, anxiety/depression, type 1 diabetes, pancreatitis who was admitted for alcohol induced pancreatitis and concern for alcohol withdrawal. At bedside assessment she continues to have abdominal pain worsened with liquids. Continuing LR with aggressive hydration for pancreatitis, no signs of volume overload. CT without evidence of necrotizing pancreatitis/pseudocyst/infection. Patient initially with insulin held while n.p.o., is type I and should not have long-acting insulin held. May scale/hold SSI to oral intake.? Abdominal pain related to DKA with mildly increased AG, serum glucose 129 with beta hydroxy pending with low suspicion. Insulin glargine resumed, will continue pancreatitis treatment as otherwise noted. Patient has a history of significant alcohol use, multiple admissions for alcohol withdrawal, and withdrawal symptoms. We will continue with Librium taper and JAMESON S with which she is currently scoring. Discussed her INR, liver enzymes, and overall case with patient at bedside including the potential of the liver for recovery but only if given the chance with alcohol cessation and noting that her rising INR represents synthetic dysfunction and worsening disease. Patient expresses an understanding of this, and desire to remain sober but feels like she has no support at home and with difficulty approaching this. Notes that her support cannot be family. Case management has been consulted and is helping to provide multiple resources, and at this point she requires ongoing inpatient admission for alcohol withdrawal and management of acute pancreatitis. On exam breathing is unlabored, symmetrical chest rise, appears fatigued and anxious but answers questions appropriately and speech is with normal rhythm and prosody. Currently denying SI. Continue basal bolus insulin, hydromorphone as needed with caution to respiratory status while on antibiosis protocol, fluids until p.o. improves. Psych consulted, appreciate recommendations. Subjective 45yo Female here for pancreatitis, PMH DM1, alcohol use disorder, recurrent pancreatitis, hepatic steatosis, cirrhosis, asthma, anxiety, neutropenia, thrombocytopenia. Patient seen at bedside, cooperative anxious with mild tremor. Patient states her alcohol use disorder and anxiety were originally well controlled on remeron and am naltrexone, however recently it was no longer enough. Patient states she had therapists at one point but did not get along with them. She states she is interested in trying mediction options to control her alcohol use disorder. Patient tried drinking clear diet and soda, however she threw it up. She states the lorazapam, pepcid, zofran, and tylenol only helped a little for her nausea. Review of Systems Review of Systems: Positive nausea, abd pain Negative fever chills Negative headache dizziness Negative chest pain palpitations SOB Negative diarrhea constipation Physical Exam Constitutional: WD/WN, vitals as above Respiratory: normal respiratory effort, lungs clear to auscultation Cardiovascular: RRR, no murmur, no edema Heart Sounds: normal S1 and normal S2 Gastrointestinal (Abdomen): Inspection/Auscultation: abdomen normal to inspection and normal bowel sounds Percussion/Palpation: + abdomen tender (in epigastric region) Skin: no rashes, warm and dry Neurologic: Motor/Sensory: + tremor (in b/l hands) Results & Data Results & Data ([facility]) Vital Signs (Past 12 Hours) Vital Signs Pulse Resp BP Pulse Ox 06/11/21 07:37 83 22 131/73 96 06/11/21 06:18 90 17 110/60 97 06/11/21 03:36 93 H 17 115/69 98 06/11/21 02:52 93 H 14 97/62 L 95 06/11/21 01:00 93 H 20 119/64 97 06/10/21 23:00 105 H 20 116/75 95 12/19/21 21:30 90 18 104/57 L 98 06/10/21 20:33 100 H 17 109/67 95 Laboratory Results 06/11/21 06/11/21 06/11/21 Range/Units 15:47 15:47 15:47 WBC (4.8-10.8) K/uL RBC (4.2-5.4) M/uL Hgb (12.0-16.0) g/dL Hct (37-47) % MCV (80-100) fL MCH (25-34) pg MCHC (32-36) g/dL RDW Std Deviation (36.4-46.3) fL RDW Coeff of Suzanne (11.5-14.5) % Plt Count (130-400) K/uL MPV (7.4-10.4) fL Immature Gran % (Auto) % Neut % (Auto) % Lymph % (Auto) % Henry % (Auto) % Eos % (Auto) % Baso % (Auto) % Neut # (Auto) (1.4-6.5) K/uL Lymph # (Auto) (1.2-3.4) K/uL Henry # (Auto) (0.11-0.59) K/uL Eos # (Auto) (0-0.5) K/uL Baso # (Auto) (0-0.2) K/uL Immature Gran # (Auto) (0.00-0.02) K/uL Platelet Estimate (Normal) PT (9.0-12.0) Seconds INR (0.9-1.1) Sodium (136-145) mmol/L Potassium (3.5-5.1) mmol/L Chloride (98-107) mmol/L Carbon Dioxide (21-32) mmol/L Anion Gap (3-11) BUN (7-18) mg/dl Creatinine (0.6-1.2) mg/dl Est Cr Clr Drug Dosing ml/min Est GFR ( Amer) ml/min Est GFR (Non-Af Amer) ml/min BUN/Creatinine Ratio (10-20) Glucose (70-99) mg/dl POC Glucose (70-99) mg/dl Calcium (8.5-10.1) mg/dl Total Bilirubin (0.2-1) mg/dl AST (15-37) U/L ALT (12-78) Alkaline Phosphatase (45-117) U/L Ammonia (11-32) umol/L Total Protein (6.4-8.2) gm/dl Albumin (3.4-5.0) gm/dl Globulin (2.5-4.0) gm/dl Albumin/Globulin Ratio (0.9-2) Lipase (73-393) U/L Beta-Hydroxybutyric Acd TSH (0.300-4.500) uIu/ml HCG, Qual (Negative) Urine Color Yellow Urine Appearance Clear (Clear) Urine pH 6.0 (4.5-7.5) Ur Specific Rhodhiss 1.023 (1.000-1.030) Urine Protein 1+ H (Negative) Urine Glucose (UA) Negative (Negative) Urine Ketones 4+ H (Negative) Urine Blood 1+ H (Negative) Urine Nitrite Negative (Negative) Urine Bilirubin Negative (Negative) Urine Urobilinogen Negative (Negative) Ur Leukocyte Esterase 2+ H (Negative) Urine WBC (Auto) 10-30 H (0-5) /hpf Urine RBC (Auto) 5-10 H (0-4) /hpf U Hyaline Cast (Auto) 1-5 (0-5) /lpf U Epithel Cells (Auto) 10-20 H (0-5) /lpf Urine Bacteria (Auto) Negative (Negative) Salicylates (2.8-20) mg/dl Urine Opiates Screen Pos H (Neg) U Codeine Confrm GC/MS Pending Ur Morphine (GC/MS) Pending Ur Hydrocodone (GC/MS) Pending Ur Norhydrocodone Pending Ur Noroxycodone Pending Urine Oxycodone (GC/MS) Pending U Oxymorphone GC/MS Pending Ur Methadone, Qual Neg (Neg) Ur Hydromorphone (GC/MS) Pending Acetaminophen (10-30) ug/ml Urine Barbiturates Neg (Neg) Ur Phencyclidine (PCP) Neg (Neg) U Amphetamin/Meth Scrn Neg (Neg) MDMA (Ecstasy) Screen Neg (Neg) U Benzodiazepines Scrn Neg (Neg) Ur Cocaine Metabolite Neg (Neg) U Marijuana (THC) Screen Neg (Neg) Drug Screen Comment Pending Ethyl Alcohol mg/dL (0-3) mg/dl SARS-CoV-2, RNA, NAAT (NEGATIVE) 06/11/21 06/11/21 06/11/21 Range/Units 14:53 11:59 08:12 WBC (4.8-10.8) K/uL RBC (4.2-5.4) M/uL Hgb (12.0-16.0) g/dL Hct (37-47) % MCV (80-100) fL MCH (25-34) pg MCHC (32-36) g/dL RDW Std Deviation (36.4-46.3) fL RDW Coeff of Suzanne (11.5-14.5) % Plt Count (130-400) K/uL MPV (7.4-10.4) fL Immature Gran % (Auto) % Neut % (Auto) % Lymph % (Auto) % Henry % (Auto) % Eos % (Auto) % Baso % (Auto) % Neut # (Auto) (1.4-6.5) K/uL Lymph # (Auto) (1.2-3.4) K/uL Henry # (Auto) (0.11-0.59) K/uL Eos # (Auto) (0-0.5) K/uL Baso # (Auto) (0-0.2) K/uL Immature Gran # (Auto) (0.00-0.02) K/uL Platelet Estimate (Normal) PT (9.0-12.0) Seconds INR (0.9-1.1) Sodium 136 (136-145) mmol/L Potassium 4.2 (3.5-5.1) mmol/L Chloride 101 (98-107) mmol/L Carbon Dioxide 17 L (21-32) mmol/L Anion Gap 18.0 H (3-11) BUN 14 (7-18) mg/dl Creatinine 0.65 (0.6-1.2) mg/dl Est Cr Clr Drug Dosing 94.7 ml/min Est GFR ( Amer) 124.3 ml/min Est GFR (Non-Af Amer) 107.2 ml/min BUN/Creatinine Ratio 21.3 H (10-20) Glucose 140 H (70-99) mg/dl POC Glucose 129 H 121 H (70-99) mg/dl Calcium 9.4 (8.5-10.1) mg/dl Total Bilirubin (0.2-1) mg/dl AST (15-37) U/L ALT (12-78) Alkaline Phosphatase (45-117) U/L Ammonia (11-32) umol/L Total Protein (6.4-8.2) gm/dl Albumin (3.4-5.0) gm/dl Globulin (2.5-4.0) gm/dl Albumin/Globulin Ratio (0.9-2) Lipase (73-393) U/L Beta-Hydroxybutyric Acd Pending TSH (0.300-4.500) uIu/ml HCG, Qual (Negative) Urine Color Urine Appearance (Clear) Urine pH (4.5-7.5) Ur Specific Rhodhiss (1.000-1.030) Urine Protein (Negative) Urine Glucose (UA) (Negative) Urine Ketones (Negative) Urine Blood (Negative) Urine Nitrite (Negative) Urine Bilirubin (Negative) Urine Urobilinogen (Negative) Ur Leukocyte Esterase (Negative) Urine WBC (Auto) (0-5) /hpf Urine RBC (Auto) (0-4) /hpf U Hyaline Cast (Auto) (0-5) /lpf U Epithel Cells (Auto) (0-5) /lpf Urine Bacteria (Auto) (Negative) Salicylates (2.8-20) mg/dl Urine Opiates Screen (Neg) U Codeine Confrm GC/MS Ur Morphine (GC/MS) Ur Hydrocodone (GC/MS) Ur Norhydrocodone Ur Noroxycodone Urine Oxycodone (GC/MS) U Oxymorphone GC/MS Ur Methadone, Qual (Neg) Ur Hydromorphone (GC/MS) Acetaminophen (10-30) ug/ml Urine Barbiturates (Neg) Ur Phencyclidine (PCP) (Neg) U Amphetamin/Meth Scrn (Neg) MDMA (Ecstasy) Screen (Neg) U Benzodiazepines Scrn (Neg) Ur Cocaine Metabolite (Neg) U Marijuana (THC) Screen (Neg) Drug Screen Comment Ethyl Alcohol mg/dL (0-3) mg/dl SARS-CoV-2, RNA, NAAT (NEGATIVE) 06/11/21 06/11/21 06/11/21 Range/Units 07:44 07:44 06:13 WBC 3.07 L (4.8-10.8) K/uL RBC 3.82 L (4.2-5.4) M/uL Hgb 11.9 L (12.0-16.0) g/dL Hct 35.3 L (37-47) % MCV 92.4 (80-100) fL MCH 31.2 (25-34) pg MCHC 33.7 (32-36) g/dL RDW Std Deviation 52.6 H (36.4-46.3) fL RDW Coeff of Suzanne 15.4 H (11.5-14.5) % Plt Count 49 L D (130-400) K/uL MPV 9.4 (7.4-10.4) fL Immature Gran % (Auto) 0.0 % Neut % (Auto) 71.0 % Lymph % (Auto) 20.2 % Henry % (Auto) 7.8 % Eos % (Auto) 0.0 % Baso % (Auto) 1.0 % Neut # (Auto) 2.18 (1.4-6.5) K/uL Lymph # (Auto) 0.62 L (1.2-3.4) K/uL Henry # (Auto) 0.24 (0.11-0.59) K/uL Eos # (Auto) 0.00 (0-0.5) K/uL Baso # (Auto) 0.03 (0-0.2) K/uL Immature Gran # (Auto) 0.00 (0.00-0.02) K/uL Platelet Estimate Decreased L (Normal) PT (9.0-12.0) Seconds INR (0.9-1.1) Sodium 137 (136-145) mmol/L Potassium 3.9 (3.5-5.1) mmol/L Chloride 102 (98-107) mmol/L Carbon Dioxide 18 L (21-32) mmol/L Anion Gap 18.0 H (3-11) BUN 16 (7-18) mg/dl Creatinine 0.66 (0.6-1.2) mg/dl Est Cr Clr Drug Dosing 93.2 ml/min Est GFR ( Amer) 123.6 ml/min Est GFR (Non-Af Amer) 106.7 ml/min BUN/Creatinine Ratio 24.5 H (10-20) Glucose 126 H (70-99) mg/dl POC Glucose 123 H (70-99) mg/dl Calcium 9.0 (8.5-10.1) mg/dl Total Bilirubin 1.3 H (0.2-1) mg/dl AST 280 H (15-37) U/L ALT 137 H (12-78) Alkaline Phosphatase 200 H (45-117) U/L Ammonia (11-32) umol/L Total Protein 7.3 (6.4-8.2) gm/dl Albumin 3.8 (3.4-5.0) gm/dl Globulin 3.5 (2.5-4.0) gm/dl Albumin/Globulin Ratio 1.1 (0.9-2) Lipase (73-393) U/L Beta-Hydroxybutyric Acd TSH (0.300-4.500) uIu/ml HCG, Qual (Negative) Urine Color Urine Appearance (Clear) Urine pH (4.5-7.5) Ur Specific Rhodhiss (1.000-1.030) Urine Protein (Negative) Urine Glucose (UA) (Negative) Urine Ketones (Negative) Urine Blood (Negative) Urine Nitrite (Negative) Urine Bilirubin (Negative) Urine Urobilinogen (Negative) Ur Leukocyte Esterase (Negative) Urine WBC (Auto) (0-5) /hpf Urine RBC (Auto) (0-4) /hpf U Hyaline Cast (Auto) (0-5) /lpf U Epithel Cells (Auto) (0-5) /lpf Urine Bacteria (Auto) (Negative) Salicylates (2.8-20) mg/dl Urine Opiates Screen (Neg) U Codeine Confrm GC/MS Ur Morphine (GC/MS) Ur Hydrocodone (GC/MS) Ur Norhydrocodone Ur Noroxycodone Urine Oxycodone (GC/MS) U Oxymorphone GC/MS Ur Methadone, Qual (Neg) Ur Hydromorphone (GC/MS) Acetaminophen (10-30) ug/ml Urine Barbiturates (Neg) Ur Phencyclidine (PCP) (Neg) U Amphetamin/Meth Scrn (Neg) MDMA (Ecstasy) Screen (Neg) U Benzodiazepines Scrn (Neg) Ur Cocaine Metabolite (Neg) U Marijuana (THC) Screen (Neg) Drug Screen Comment Ethyl Alcohol mg/dL (0-3) mg/dl SARS-CoV-2, RNA, NAAT (NEGATIVE) 06/10/21 06/10/21 06/10/21 Range/Units 23:57 21:16 17:28 WBC (4.8-10.8) K/uL RBC (4.2-5.4) M/uL Hgb (12.0-16.0) g/dL Hct (37-47) % MCV (80-100) fL MCH (25-34) pg MCHC (32-36) g/dL RDW Std Deviation (36.4-46.3) fL RDW Coeff of Suzanne (11.5-14.5) % Plt Count (130-400) K/uL MPV (7.4-10.4) fL Immature Gran % (Auto) % Neut % (Auto) % Lymph % (Auto) % Henry % (Auto) % Eos % (Auto) % Baso % (Auto) % Neut # (Auto) (1.4-6.5) K/uL Lymph # (Auto) (1.2-3.4) K/uL Henry # (Auto) (0.11-0.59) K/uL Eos # (Auto) (0-0.5) K/uL Baso # (Auto) (0-0.2) K/uL Immature Gran # (Auto) (0.00-0.02) K/uL Platelet Estimate (Normal) PT (9.0-12.0) Seconds INR (0.9-1.1) Sodium (136-145) mmol/L Potassium (3.5-5.1) mmol/L Chloride (98-107) mmol/L Carbon Dioxide (21-32) mmol/L Anion Gap (3-11) BUN (7-18) mg/dl Creatinine (0.6-1.2) mg/dl Est Cr Clr Drug Dosing ml/min Est GFR ( Amer) ml/min Est GFR (Non-Af Amer) ml/min BUN/Creatinine Ratio (10-20) Glucose (70-99) mg/dl POC Glucose 98 (70-99) mg/dl Calcium (8.5-10.1) mg/dl Total Bilirubin (0.2-1) mg/dl AST (15-37) U/L ALT (12-78) Alkaline Phosphatase (45-117) U/L Ammonia 35.3 H (11-32) umol/L Total Protein (6.4-8.2) gm/dl Albumin (3.4-5.0) gm/dl Globulin (2.5-4.0) gm/dl Albumin/Globulin Ratio (0.9-2) Lipase (73-393) U/L Beta-Hydroxybutyric Acd TSH (0.300-4.500) uIu/ml HCG, Qual (Negative) Urine Color Urine Appearance (Clear) Urine pH (4.5-7.5) Ur Specific Rhodhiss (1.000-1.030) Urine Protein (Negative) Urine Glucose (UA) (Negative) Urine Ketones (Negative) Urine Blood (Negative) Urine Nitrite (Negative) Urine Bilirubin (Negative) Urine Urobilinogen (Negative) Ur Leukocyte Esterase (Negative) Urine WBC (Auto) (0-5) /hpf Urine RBC (Auto) (0-4) /hpf U Hyaline Cast (Auto) (0-5) /lpf U Epithel Cells (Auto) (0-5) /lpf Urine Bacteria (Auto) (Negative) Salicylates (2.8-20) mg/dl Urine Opiates Screen (Neg) U Codeine Confrm GC/MS Ur Morphine (GC/MS) Ur Hydrocodone (GC/MS) Ur Norhydrocodone Ur Noroxycodone Urine Oxycodone (GC/MS) U Oxymorphone GC/MS Ur Methadone, Qual (Neg) Ur Hydromorphone (GC/MS) Acetaminophen (10-30) ug/ml Urine Barbiturates (Neg) Ur Phencyclidine (PCP) (Neg) U Amphetamin/Meth Scrn (Neg) MDMA (Ecstasy) Screen (Neg) U Benzodiazepines Scrn (Neg) Ur Cocaine Metabolite (Neg) U Marijuana (THC) Screen (Neg) Drug Screen Comment Ethyl Alcohol mg/dL (0-3) mg/dl SARS-CoV-2, RNA, NAAT NEGATIVE (NEGATIVE) 06/10/21 06/10/21 06/10/21 Range/Units 17:10 17:10 17:10 WBC (4.8-10.8) K/uL RBC (4.2-5.4) M/uL Hgb (12.0-16.0) g/dL Hct (37-47) % MCV (80-100) fL MCH (25-34) pg MCHC (32-36) g/dL RDW Std Deviation (36.4-46.3) fL RDW Coeff of Suzanne (11.5-14.5) % Plt Count (130-400) K/uL MPV (7.4-10.4) fL Immature Gran % (Auto) % Neut % (Auto) % Lymph % (Auto) % Henry % (Auto) % Eos % (Auto) % Baso % (Auto) % Neut # (Auto) (1.4-6.5) K/uL Lymph # (Auto) (1.2-3.4) K/uL Henry # (Auto) (0.11-0.59) K/uL Eos # (Auto) (0-0.5) K/uL Baso # (Auto) (0-0.2) K/uL Immature Gran # (Auto) (0.00-0.02) K/uL Platelet Estimate (Normal) PT 13.5 H (9.0-12.0) Seconds INR 1.4 H (0.9-1.1) Sodium (136-145) mmol/L Potassium (3.5-5.1) mmol/L Chloride (98-107) mmol/L Carbon Dioxide (21-32) mmol/L Anion Gap (3-11) BUN (7-18) mg/dl Creatinine (0.6-1.2) mg/dl Est Cr Clr Drug Dosing ml/min Est GFR ( Amer) ml/min Est GFR (Non-Af Amer) ml/min BUN/Creatinine Ratio (10-20) Glucose (70-99) mg/dl POC Glucose (70-99) mg/dl Calcium (8.5-10.1) mg/dl Total Bilirubin (0.2-1) mg/dl AST (15-37) U/L ALT (12-78) Alkaline Phosphatase (45-117) U/L Ammonia (11-32) umol/L Total Protein (6.4-8.2) gm/dl Albumin (3.4-5.0) gm/dl Globulin (2.5-4.0) gm/dl Albumin/Globulin Ratio (0.9-2) Lipase (73-393) U/L Beta-Hydroxybutyric Acd TSH (0.300-4.500) uIu/ml HCG, Qual Negative (Negative) Urine Color Urine Appearance (Clear) Urine pH (4.5-7.5) Ur Specific Rh[place] (1.000-1.030) Urine Protein (Negative) Urine Glucose (UA) (Negative) Urine Ketones (Negative) Urine Blood (Negative) Urine Nitrite (Negative) Urine Bilirubin (Negative) Urine Urobilinogen (Negative) Ur Leukocyte Esterase (Negative) Urine WBC (Auto) (0-5) /hpf Urine RBC (Auto) (0-4) /hpf U Hyaline Cast (Auto) (0-5) /lpf U Epithel Cells (Auto) (0-5) /lpf Urine Bacteria (Auto) (Negative) Salicylates (2.8-20) mg/dl Urine Opiates Screen (Neg) U Codeine Confrm GC/MS Ur Morphine (GC/MS) Ur Hydrocodone (GC/MS) Ur Norhydrocodone Ur Noroxycodone Urine Oxycodone (GC/MS) U Oxymorphone GC/MS Ur Methadone, Qual (Neg) Ur Hydromorphone (GC/MS) Acetaminophen (10-30) ug/ml Urine Barbiturates (Neg) Ur Phencyclidine (PCP) (Neg) U Amphetamin/Meth Scrn (Neg) MDMA (Ecstasy) Screen (Neg) U Benzodiazepines Scrn (Neg) Ur Cocaine Metabolite (Neg) U Marijuana (THC) Screen (Neg) Drug Screen Comment Ethyl Alcohol mg/dL 338.0 H (0-3) mg/dl SARS-CoV-2, RNA, NAAT (NEGATIVE) 06/10/21 06/10/21 06/10/21 Range/Units 17:10 17:10 17:10 WBC 4.27 L (4.8-10.8) K/uL RBC 4.41 (4.2-5.4) M/uL Hgb 14.6 (12.0-16.0) g/dL Hct 40.0 (37-47) % MCV 90.7 (80-100) fL MCH 33.1 (25-34) pg MCHC 36.5 H (32-36) g/dL RDW Std Deviation 50.7 H (36.4-46.3) fL RDW Coeff of Suzanne 15.3 H (11.5-14.5) % Plt Count 115 L (130-400) K/uL MPV 11.4 H (7.4-10.4) fL Immature Gran % (Auto) 0.0 % Neut % (Auto) 58.3 % Lymph % (Auto) 33.5 % Henry % (Auto) 7.5 % Eos % (Auto) 0.0 % Baso % (Auto) 0.7 % Neut # (Auto) 2.49 (1.4-6.5) K/uL Lymph # (Auto) 1.43 (1.2-3.4) K/uL Henry # (Auto) 0.32 (0.11-0.59) K/uL Eos # (Auto) 0.00 (0-0.5) K/uL Baso # (Auto) 0.03 (0-0.2) K/uL Immature Gran # (Auto) 0.00 (0.00-0.02) K/uL Platelet Estimate (Normal) PT (9.0-12.0) Seconds INR (0.9-1.1) Sodium 133 L (136-145) mmol/L Potassium 4.4 (3.5-5.1) mmol/L Chloride 96 L (98-107) mmol/L Carbon Dioxide 16 L (21-32) mmol/L Anion Gap 21.0 H (3-11) BUN 20 H (7-18) mg/dl Creatinine 0.82 (0.6-1.2) mg/dl Est Cr Clr Drug Dosing 75.0 ml/min Est GFR ( Amer) 100.2 ml/min Est GFR (Non-Af Amer) 86.4 ml/min BUN/Creatinine Ratio 24.4 H (10-20) Glucose 133 H (70-99) mg/dl POC Glucose (70-99) mg/dl Calcium 9.8 (8.5-10.1) mg/dl Total Bilirubin 1.3 H (0.2-1) mg/dl AST 384 H (15-37) U/L ALT 168 H (12-78) Alkaline Phosphatase 244 H D (45-117) U/L Ammonia (11-32) umol/L Total Protein 8.4 H (6.4-8.2) gm/dl Albumin 4.4 (3.4-5.0) gm/dl Globulin 4.0 (2.5-4.0) gm/dl Albumin/Globulin Ratio 1.1 (0.9-2) Lipase 1187 H (73-393) U/L Beta-Hydroxybutyric Acd TSH 1.590 (0.300-4.500) uIu/ml HCG, Qual (Negative) Urine Color Urine Appearance (Clear) Urine pH (4.5-7.5) Ur Specific Rh[place] (1.000-1.030) Urine Protein (Negative) Urine Glucose (UA) (Negative) Urine Ketones (Negative) Urine Blood (Negative) Urine Nitrite (Negative) Urine Bilirubin (Negative) Urine Urobilinogen (Negative) Ur Leukocyte Esterase (Negative) Urine WBC (Auto) (0-5) /hpf Urine RBC (Auto) (0-4) /hpf U Hyaline Cast (Auto) (0-5) /lpf U Epithel Cells (Auto) (0-5) /lpf Urine Bacteria (Auto) (Negative) Salicylates < 1.7 L (2.8-20) mg/dl Urine Opiates Screen (Neg) U Codeine Confrm GC/MS Ur Morphine (GC/MS) Ur Hydrocodone (GC/MS) Ur Norhydrocodone Ur Noroxycodone Urine Oxycodone (GC/MS) U Oxymorphone GC/MS Ur Methadone, Qual (Neg) Ur Hydromorphone (GC/MS) Acetaminophen < 2 L (10-30) ug/ml Urine Barbiturates (Neg) Ur Phencyclidine (PCP) (Neg) U Amphetamin/Meth Scrn (Neg) MDMA (Ecstasy) Screen (Neg) U Benzodiazepines Scrn (Neg) Ur Cocaine Metabolite (Neg) U Marijuana (THC) Screen (Neg) Drug Screen Comment Ethyl Alcohol mg/dL (0-3) mg/dl SARS-CoV-2, RNA, NAAT (NEGATIVE) Diagnostic Findings Abdomen/Pelvis CT 06/10/21 18:[address] WITH IV CONTRAST CT DOSE: 872.49 mGy.cm HISTORY: Acutely elevated lipase with alcoholism elev lipase, alcohol hx TECHNIQUE: Multiaxial CT images of the abdomen and pelvis were performed following the IV administration of 95 cc of Optiray, A dose lowering technique was utilized adhering to the principles of ALARA. COMPARISON STUDY: CT abdomen and pelvis 01/23/2021 FINDINGS: The imaged inferior cardiac chambers are unremarkable. Clear lung bases. No pneumatosis or pneumoperitoneum. The spleen is mildly enlarged. Moderately atrophic pancreas. There is mild interstitial and peripancreatic edema with trace free fluid adjacent to the duodenum tracking into the mesentery, and pelvis. Trace free fluid within the pericolic gutters. No pancreatic ductal dilation. Patent portal vein. The adrenal glands and gallbladder are unremarkable. Markedly heterogeneous liver with hepatic steatosis and mild marginal nodularity redemonstrated. 4 mm nonobstructing calculus of the interpolar left kidney. No ureteral calculi or hydronephrosis. Moderate urinary bladder distention. Follicular changes of the ovaries. Unremarkable uterus. Aorta and IVC are unremarkable. There is no adenopathy. Mild wall thickening of the duodenum is likely reactive. Mild wall thickening with partial distention of the cecum, ascending colon and hepatic flexure. Unremarkable soft tissues. There is no acute fracture. IMPRESSION: 1. Moderately atrophic pancreas with mild interstitial and peripancreatic edema suspicious for acute pancreatitis. Edema and trace fluid tracks into the pericolic gutters and dependent pelvis. 2. Marked heterogeneity of the liver with hepatic steatosis and suggested cirrhosis. 3. Wall thickening of the cecum, ascending colon and hepatic flexure is likely related to portal colopathy. A nonspecific colitis is considered less likely. 4. Mild splenomegaly. 5. Nonobstructing left nephrolithiasis. ACT 112: Negative or not required by law. The above report was generated using voice recognition software. It may contain grammatical, syntax or spelling errors. Electronically signed by: Tony Carney M.D. 06/10/2021 7:[address] 06/10/21 18:18 CT head/brain wo con CLINICAL HISTORY: 45 years-old Female with etoh, depression. Acute depression TECHNIQUE: Multiple axial CT images of the head were obtained without contrast. A dose lowering technique was utilized adhering to the principles of ALARA. COMPARISON: Head CT 02/20/2021 FINDINGS: No acute intracranial hemorrhage, midline shift, intracranial mass, hydrocephalus, territorial ischemia or abnormal extra-axial collection. The calvarium is intact. The paranasal sinuses, mastoid air cells, and middle ear cavities are clear. IMPRESSION: No acute intracranial abnormality. ACT 112: Negative or not required by law. The above report was generated using voice recognition software. It may contain grammatical, syntax or spelling errors. Electronically signed by: Tony Carney M.D. 06/10/2021 7:47 PM Liver Ultrasound 06/10/21 21:55 US liver CLINICAL HISTORY: Right upper quadrant pain and nausea. Elevated liver function tests. COMPARISON STUDY: Right upper quadrant ultrasound November 11, 2020. CT of the abdomen and pelvis June 10, 2021. FINDINGS: The liver is echogenic and heterogeneous. The liver is enlarged, measuring 24 cm in maximal sagittal dimension. No hepatic lesions are identified although sensitivity is diminished on this examination. There is no biliary ductal dilatation. The common bile duct measures 4 mm in caliber. Pancreas is largely obscured on this examination. No gallstones are noted. There is trace perihepatic and pericholecystic fluid. Gallbladder is not distended. Sonographic Duckworth sign could not be assessed for in this patient. There is no right hydronephrosis. IMPRESSION: 1. Hepatic steatosis and hepatomegaly. Probable cirrhosis. 2. No gallstones or biliary ductal dilatation. 3. Largely obscured pancreas. ACT 112: Negative or not required by law. Electronically signed by: Kishore Brown M.D. 06/11/2021 7:52 AM Medications Administered Current Inpatient Medications Acetaminophen (Acetaminophen 500 Mg Tab) 500 mg PO Q6H PRN PRN Reason: pain Stop: 07/11/21 11:28 Last Admin: 06/11/21 11:42 Dose: 500 mg Documented by: Albuterol (Albuterol Hfa 8 Gm Inhaler) 2 puffs INH Q6H PRN PRN Reason: Shortness Of Breath Stop: 07/11/21 02:46 Chlordiazepoxide HCl (Chlordiazepoxide Hcl 25 Mg Cap) 50 mg PO Q6H ARMANI; Taper Stop: 06/14/21 05:59 Last Admin: 06/11/21 12:15 Dose: 50 mg Documented by: Chlordiazepoxide HCl (Chlordiazepoxide Hcl 10 Mg Cap) 10 mg PO Q12H ARMANI Stop: 06/14/21 18:01 Dextrose (Dextrose 50% 50 Ml Syringe) 25 - 50 ml IV UD PRN; Protocol PRN Reason: Hypoglycemia Protocol Stop: 07/10/21 20:01 Glucagon (Glucagon For Inj 1 Mg Vial) 1 mg SQ UD PRN; Protocol PRN Reason: Hypoglycemia Protocol Stop: 07/10/21 20:01 Glucose (Glucose 10 Tabs/Tube) 4 - 8 tabs PO UD PRN; Protocol PRN Reason: Hypoglycemia Protocol Stop: 07/10/21 20:01 Glucose (Glucose 40% Gel 15 Gm Tube) 15 - 30 gm PO UD PRN; Protocol PRN Reason: Hypoglycemia Protocol Stop: 07/10/21 20:01 Hydromorphone HCl (Hydromorphone Inj 0.5 Mg/0.5 Ml Syr) 0.5 mg IV Q3H PRN PRN Reason: Severe Pain Rating (7,8,9,10) Stop: 06/24/21 20:01 Lorazepam (Ativan) 2 mg in 4 mls @ 4 mls/min IV UD PRN; Protocol PRN Reason: EtOH Withdrawl AWSS Score 8,9 Stop: 07/10/21 20:01 Last Admin: 06/10/21 23:51 Dose: 4 mls/min Documented by: Lactated Ringer's (Lr) 1,000 mls @ 200 mls/hr IV .Q5H [facility] Stop: 07/10/21 20:01 Last Admin: 06/11/21 13:36 Dose: 200 mls/hr Documented by: Lorazepam (Ativan) 1 mg in 2 mls @ 2 mls/min IV UD PRN; Protocol PRN Reason: EtOH Withdrawl AWSS Score 6,7 Stop: 07/10/21 20:01 Last Admin: 06/11/21 07:22 Dose: 2 mls/min Documented by: Lorazepam (Ativan) 3 mg in 6 mls @ 4 mls/min IV ONCE PRN; Protocol PRN Reason: EtOH Withdrawl AWSS Score >=10 Stop: 07/10/21 20:01 Thiamine HCl 100 mg/ Syringe 10 mls @ 2 mls/min IV QAM [facility] Stop: 07/11/21 08:59 Last Admin: 06/11/21 09:16 Dose: 2 mls/min Documented by: Folic Acid 1 mg/ Syringe 10 mls @ 5 mls/min IV QAM [facility] Stop: 07/11/21 08:59 Last Admin: 06/11/21 09:16 Dose: 5 mls/min Documented by: Insulin Aspart (Insulin Aspart Per Unit) 0 units SC Q6 [facility] Stop: 07/11/21 05:59 Last Admin: 06/11/21 12:06 Dose: Not Given Documented by: Insulin Glargine (Insulin Glargine Solostar 100 Units/Ml 3 Ml Pen) 5 units SC BID [facility] Stop: 07/10/21 20:59 Last Admin: 06/11/21 09:17 Dose: Not Given Documented by: Melatonin (Melatonin 3 Mg Tab) 9 mg PO HSZ PRN PRN Reason: Sleep Stop: 07/11/21 02:53 Mirtazapine (Mirtazapine Tab 15 Mg Tab) 15 mg PO HS ARMANI Stop: 07/11/21 20:59 Miscellaneous (Carbohydrates For Hypoglycemia ) 15 - 30 gm PO UD PRN PRN Reason: Hypoglycemia Protocol Stop: 07/10/21 20:01 Morphine Sulfate (Morphine Sulfate 4 Mg/Ml 1 Ml Carp\Vial) 4 mg IV Q3H PRN PRN Reason: Moderate Pain Rating (4,5,6) Stop: 06/25/21 02:46 Last Admin: 06/11/21 14:47 Dose: 4 mg Documented by: Ondansetron HCl (Ondansetron Inj 2 Mg/Ml 2 Ml Vial) 4 mg IV Q4H PRN PRN Reason: Nausea And Vomiting Stop: 07/10/21 20:01 Last Admin: 06/11/21 11:43 Dose: 4 mg Documented by: Resident Activity Tracking Resident Involvement: Resident Care Provided Care Provided: Adult Hospital Medicine (1) Diabetes Diabetes mellitus complication status: without complication Diabetes mellitus adjunct faculty for medical terminology insulin use: unspecified adjunct faculty for medical terminology insulin use status Diabetes mellitus type: due to underlying condition Qualified Code(s): E08.9 - Diabetes mellitus due to underlying condition without complications (2) GERD (gastroesophageal reflux disease) Esophagitis presence: without esophagitis Qualified Code(s): K21.9 - Gastro- esophageal reflux disease without esophagitis (3) Asthma Asthma complication type: unspecified Asthma persistence: unspecified Asthma severity: unspecified severity Qualified Code(s): J45.909 - Unspecified asthma, uncomplicated
[2021-06-11 09:03] LABS: Basophils # (auto) 0.03 K/uL (0-0.2); Hematocrit (blood only) 35.3 % (37-47); Hemoglobin 11.9 g/dL (12.0-16.0); Lymphocytes # (auto) 0.62 K/uL (1.2-3.4); Lymphocytes % (auto) 20.2 %; Mean Corpuscular Hemoglobin 31.2 pg (25-34); Mean Corpuscular Hgb Conc 33.7 g/dL (32-36); Mean Corpuscular Volume 92.4 fL (80-100); Mean Platelet Volume 9.4 fL (7.4-10.4); Monocytes # (auto) 0.24 K/uL (0.11-0.59); Monocytes % (auto) 7.8 %; Neutrophils # (auto) 2.18 K/uL (1.4-6.5); Platelet Count 49 K/uL (130-400); Platelet Estimate Decreased (Normal); RDW Coefficient of Variation 15.4 % (11.5-14.5); RDW Standard Deviation 52.6 fL (36.4-46.3); Red Blood Count 3.82 M/uL (4.2-5.4); White Blood Count 3.07 K/uL (4.8-10.8)
[2021-06-11 09:10] LABS: Albumin Level 3.8 gm/dl (3.4-5.0); BUN Creatinine Ratio 24.5 (10-20); Creatinine Clr Calc Pharmacy 93.2 ml/min; Est GFR (African American) 123.6 ml/min; Est GFR (Non-African American) 106.7 ml/min; Potassium 3.9 mmol/L (3.5-5.1)
[2021-06-11 09:13] LABS: Albumin Globulin Ratio 1.1 (0.9-2); Bilirubin,Total 1.3 mg/dl (0.2-1); Globulin 3.5 gm/dl (2.5-4.0); Total Protein 7.3 gm/dl (6.4-8.2)
[2021-06-11] MEDS: FOLIC ACID 1 MG in SYRINGE 9.8 ML IV SCH (09:16)
[2021-06-11] MEDS: THIAMINE HCL 100 MG in SYRINGE 9 ML IV SCH (09:16)
[2021-06-11] MEDS ORDERED: ACETAMINOPHEN 500 MG TAB PO PRN (11:29)
[2021-06-11] MEDS ORDERED: FAMOTIDINE 10 MG TABLET PO ONE (11:29)
[2021-06-11] MEDS ORDERED: INSULIN GLARGINE SOLOSTAR 100 UNITS/ML 3 ML PEN SC STA (14:39)
[2021-06-11 15:25] LABS: BUN Creatinine Ratio 21.3 (10-20); Calcium 9.4 mg/dl (8.5-10.1); Creatinine Clr Calc Pharmacy 94.7 ml/min; Est GFR (African American) 124.3 ml/min; Est GFR (Non-African American) 107.2 ml/min; Potassium 4.2 mmol/L (3.5-5.1)
[2021-06-11 16:14] LABS: Appearance Urine Clear (Clear); Bacteria Urine Automated Negative (Negative); Bilirubin Urine Negative (Negative); Blood Urine 1+ (Negative); Color Urine Yellow; Glucose Urine UA Negative (Negative); Ketones Urine 4+ (Negative); Leukocyte Esterase Urine 2+ (Negative); Nitrite Urine Negative (Negative); Protein Urine 1+ (Negative); Specific Gravity Urine 1.023 (1.000-1.030); Urobilinogen Urine Negative (Negative)
[2021-06-11 16:28] LABS: Amphetamines+Metham, Urine Neg (Neg); Barbiturates, Urine Neg (Neg); Benzodiazepine, Urine Neg (Neg); Cocaine, Urine Neg (Neg); MDMA (Ecstacy), Urine Neg (Neg); Methadone, Urine Neg (Neg); Opiate, Urine Pos (Neg); Phencyclidine, Urine Neg (Neg)
[2021-06-11 17:49] LABS: Beta-Hydroxybutyrate 82.51 mg/dl (0.2-2.81)
--- NOTE | 2021-06-11 17:53 | Psychiatric Consultation ---
Date of Consultation June 11, 2021 Impression / Recommendations Impression 45 yo female with DM and recurrent pancreatitis due to alcoholism, worsening depression when intoxicated, now that sober she is uncomfortable from withdrawal, mainly endorsing anxiety and now denies SI. No hx of attempts. Is having some benefit outpatient from Naltrexone. (1) Depression: Depression Type: unspecified Qualified Code(s): F32.9 - Major depressive disorder, single episode, unspecified (2) Anxiety: (3) Alcoholism: risks/benefits/alternatives reviewed re: her current medications. She is requesting titration of Remeron and this seems appropriate. Will increase to 22.5 mg tonight of Remeron with plan for 30 mg. She prefers to start now as doesn't feel it exacerbates her N. If patient having issues with ongoing emesis could be switched to rylee tab. she is not actively suicidal, will follow, no current indication for inpatient psychiatric admission. Inpatient rehab would be the most appropriate level of care/treatment setting but she is unlikely to agree. liaison to continue to encourage outpatient therapy referrals and psychiatric care (if willing) but inpatient rehab most appropriate. I did mention [facility] and she said she would consider. Risk Factors Assessment Do You Have Access To A Gun?: No Psych History Identifying Data 45 yo female, last seen on consult service 12/11 for depression/anxiety in context of alcohol withdrawal. Currently in ED awaiting monitored medical bed for EToh detox. Chief Complaint "I feel like I was doing pretty well then this all came on suddenly and I'd rather just be 'knocked out' rather than deal with this withdrawal. I'm not feeling suicidal anymore". History of Present Illness Patient reports starting Naltrexone in March and feels that "it's probably helping" but ETOh use increased in the past 2 weeks (1-1.5 L vodka every 1-1.5 days) resulting in N/V and "all of this again". She was frustrated with self while intoxicated and mentioned feeling suicidal; on presentation to the ED her LAWSON was >330. She states once sober she is just sad/mad that she drinks despite medical consequences (cirrhosis, recurrent pancreatitis) and states "I can't do rehab" but doesn't really elaborate an argument against. She notes stressors of daughter not getting into college yet and her father is experiencing SI. She has been unable to work. PHQ-9=12, scored 1 on #9 (but "not now") and reports in past 2 weeks she's had sleep issues nearly every day with little interest or feeling down more than half of days. She feels that Remeron has been helpful for anxiety and there has been some discussion about increasing the dose. Past Psychiatric History Previous Psych History: denies Outpatient Services: PCP Previous Psych Admissions: denied Do You Have Access To A Gun?: No History of Previous Suicide Attempt: No Past Medication Trials: Paxil, Ativan, Neurontin, Vistaril, acamprosate listed, Naltrexone, denies Vivitrol Allergies Allergy/AdvReac Type Severity Reaction Status Date / Time theophylline AdvReac Intermediate VERTIGO Verified 06/10/21 20:50 Home Medications Medication Instructions Recorded Confirmed Type fluticasone 250 mcg-salmeterol 50 1 inh INHALATION QAM 02/27/19 06/10/21 History mcg/dose blistr powdr for inhalation (Advair Diskus) albuterol sulfate 90 mcg/actuation 2 puff INHALATION Q6H PRN 07/23/19 06/10/21 History aerosol inhaler (Ventolin HFA) multivitamin (Daily-Harris) 1 tab PO QAM #0 tab 07/27/19 06/10/21 Rx famotidine 20 mg tablet 20 mg PO DAILY PRN 11/10/20 06/10/21 History insulin aspar prt-insulin aspart 10 - 15 unit SUBCUT BID PRN 11/10/20 06/10/21 History 100 unit/mL (70-30) subcutaneous soln (Novolog Mix 70-30 U-100 Insuln) omeprazole 20 mg capsule,delayed 20 mg PO DAILY PRN 11/10/20 06/10/21 History release mirtazapine 15 mg tablet 15 mg PO HS #30 tab 12/10/20 06/10/21 Rx ascorbic acid (vitamin C) 500 mg 500 mg PO DAILY 04/05/21 06/10/21 History tablet,extended release (Vitamin C ER) melatonin 10 mg tablet 10 mg PO HS PRN 04/05/21 06/10/21 History Potassium Otc 1 tab PO BID 04/09/21 06/10/21 History vitamin B complex 1 tab PO DAILY 04/09/21 06/10/21 History Family History mother anxiety and ETOH, no suicide Substance Abuse History denies substances other than alcohol, states doesn't attend AA Personal History Highest Grade Completed: Graduate School Employment Status: Unemployed (background in [employer] and [employer] [address] studies) Marital Status: Single Beliefs That Will Affect Care: None Psychological Trauma History Comment: head injury in January following a fall. Patient History Medical History Acute alcoholic hepatitis Alcohol abuse Alcohol withdrawal Alcohol withdrawal Alcoholic hepatitis Alcoholic intoxication Anxiety Asthma Diabetes mellitus type 1 Surgical History History of dental surgery wisdom teeth History of esophagogastroduodenoscopy (EGD) Family History Father Prediabetes Grandfather (Paternal) Diabetes Mother Hypertension MVP (mitral valve prolapse) Social History Smoking Status: Unknown if ever smoked Tobacco Type: Cigarettes Age Quit Using Tobacco: 39; packs per day: 1; Years Smoked: 2; Number of Years Since Quit: 4; Second Hand Exposure: No; Hx Alcohol Use: Yes Alcohol type: hard liquor Alcohol type Comment: 4 glasses wine daily Hx Substance Use: No Preferred Language: Lithuanian Communication Ability: Effective Visual Impairment: No Limitations 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 Required: No Beliefs That Will Affect Care: None marital status: marital status details: Single parent Current Living Situation: Alone Current Living Situation Comment: daughter current occupational status: unemployed How many Children do You have: 1 Feels Safe at Home: Yes Childhood Exposure to Second-Hand Smoke: No Assistive Devices: None Physical Exam Psychiatric: Orientation: alert and oriented x 3 Apperance: appropriately dressed and appropriately groomed Eye Contact: good eye contact Motor Behavior: no abnormal motor movements Speech: normal rate/rhythm/volume of speech Affect: + depressed affect Mood: + depressed mood Thought Process: goal directed thought process Thought Content: reality based without delusions Suicidal Thoughts: denies suicidal thoughts Homicidal Thoughts: denies homicidal thoughts Hallucinations: no auditory hallucinations and no visual hallucinations Cognition: attention grossly intact and language grossly intact Estimated Intelligence: consistent with education level Insight: + limited insight Judgement: + limited judgement Vital Signs (Past 24 Hours): Last Vital Signs Temp 37.1 C 12/19/21 16:25 Pulse 77 06/11/21 17:00 Resp 18 06/11/21 17:00 BP 135/78 06/11/21 16:00 Pulse Ox 97 06/11/21 17:00 Review of Systems All systems reviewed & are unremarkable except as noted in HPI & below (N, abdominal pain, thirsty but V) Results & Data (PSY) Laboratory Results 06/11/21 06/11/21 06/11/21 Range/Units 15:47 15:47 15:47 WBC (4.8-10.8) K/uL RBC (4.2-5.4) M/uL Hgb (12.0-16.0) g/dL Hct (37-47) % MCV (80-100) fL MCH (25-34) pg MCHC (32-36) g/dL RDW Std Deviation (36.4-46.3) fL RDW Coeff of Suzanne (11.5-14.5) % Plt Count (130-400) K/uL MPV (7.4-10.4) fL Immature Gran % (Auto) % Neut % (Auto) % Lymph % (Auto) % [place] % (Auto) % Eos % (Auto) % Baso % (Auto) % Neut # (Auto) (1.4-6.5) K/uL Lymph # (Auto) (1.2-3.4) K/uL [place] # (Auto) (0.11-0.59) K/uL Eos # (Auto) (0-0.5) K/uL Baso # (Auto) (0-0.2) K/uL Immature Gran # (Auto) (0.00-0.02) K/uL Platelet Estimate (Normal) Sodium (136-145) mmol/L Potassium (3.5-5.1) mmol/L Chloride (98-107) mmol/L Carbon Dioxide (21-32) mmol/L Anion Gap (3-11) BUN (7-18) mg/dl Creatinine (0.6-1.2) mg/dl Est Cr Clr Drug Dosing ml/min Est GFR ( Amer) ml/min Est GFR (Non-Af Amer) ml/min BUN/Creatinine Ratio (10-20) Glucose (70-99) mg/dl POC Glucose (70-99) mg/dl Calcium (8.5-10.1) mg/dl Total Bilirubin (0.2-1) mg/dl AST (15-37) U/L ALT (12-78) Alkaline Phosphatase (45-117) U/L Ammonia (11-32) umol/L Total Protein (6.4-8.2) gm/dl Albumin (3.4-5.0) gm/dl Globulin (2.5-4.0) gm/dl Albumin/Globulin Ratio (0.9-2) Beta-Hydroxybutyric Acd (0.2-2.81) mg/dl TSH (0.300-4.500) uIu/ml HCG, Qual (Negative) Urine Color Yellow Urine Appearance Clear (Clear) Urine pH 6.0 (4.5-7.5) Ur Specific [place] 1.023 (1.000-1.030) Urine Protein 1+ H (Negative) Urine Glucose (UA) Negative (Negative) Urine Ketones 4+ H (Negative) Urine Blood 1+ H (Negative) Urine Nitrite Negative (Negative) Urine Bilirubin Negative (Negative) Urine Urobilinogen Negative (Negative) Ur Leukocyte Esterase 2+ H (Negative) Urine WBC (Auto) 10-30 H (0-5) /hpf Urine RBC (Auto) 5-10 H (0-4) /hpf U Hyaline Cast (Auto) 1-5 (0-5) /lpf U Epithel Cells (Auto) 10-20 H (0-5) /lpf Urine Bacteria (Auto) Negative (Negative) Salicylates (2.8-20) mg/dl Urine Opiates Screen Pos H (Neg) U Codeine Confrm GC/MS Pending Ur Morphine (GC/MS) Pending Ur Hydrocodone (GC/MS) Pending Ur Norhydrocodone Pending Ur Noroxycodone Pending Urine Oxycodone (GC/MS) Pending U Oxymorphone GC/MS Pending Ur Methadone, Qual Neg (Neg) Ur Hydromorphone (GC/MS) Pending Acetaminophen (10-30) ug/ml Urine Barbiturates Neg (Neg) Ur Phencyclidine (PCP) Neg (Neg) U Amphetamin/Meth Scrn Neg (Neg) MDMA (Ecstasy) Screen Neg (Neg) U Benzodiazepines Scrn Neg (Neg) Ur Cocaine Metabolite Neg (Neg) U Marijuana (THC) Screen Neg (Neg) Drug Screen Comment Pending Ethyl Alcohol mg/dL (0-3) mg/dl 06/11/21 06/11/21 06/11/21 Range/Units 14:53 11:59 08:12 WBC (4.8-10.8) K/uL RBC (4.2-5.4) M/uL Hgb (12.0-16.0) g/dL Hct (37-47) % MCV (80-100) fL MCH (25-34) pg MCHC (32-36) g/dL RDW Std Deviation (36.4-46.3) fL RDW Coeff of Suzanne (11.5-14.5) % Plt Count (130-400) K/uL MPV (7.4-10.4) fL Immature Gran % (Auto) % Neut % (Auto) % Lymph % (Auto) % [place] % (Auto) % Eos % (Auto) % Baso % (Auto) % Neut # (Auto) (1.4-6.5) K/uL Lymph # (Auto) (1.2-3.4) K/uL [place] # (Auto) (0.11-0.59) K/uL Eos # (Auto) (0-0.5) K/uL Baso # (Auto) (0-0.2) K/uL Immature Gran # (Auto) (0.00-0.02) K/uL Platelet Estimate (Normal) Sodium 136 (136-145) mmol/L Potassium 4.2 (3.5-5.1) mmol/L Chloride 101 (98-107) mmol/L Carbon Dioxide 17 L (21-32) mmol/L Anion Gap 18.0 H (3-11) BUN 14 (7-18) mg/dl Creatinine 0.65 (0.6-1.2) mg/dl Est Cr Clr Drug Dosing 94.7 ml/min Est GFR ( Amer) 124.3 ml/min Est GFR (Non-Af Amer) 107.2 ml/min BUN/Creatinine Ratio 21.3 H (10-20) Glucose 140 H (70-99) mg/dl POC Glucose 129 H 121 H (70-99) mg/dl Calcium 9.4 (8.5-10.1) mg/dl Total Bilirubin (0.2-1) mg/dl AST (15-37) U/L ALT (12-78) Alkaline Phosphatase (45-117) U/L Ammonia (11-32) umol/L Total Protein (6.4-8.2) gm/dl Albumin (3.4-5.0) gm/dl Globulin (2.5-4.0) gm/dl Albumin/Globulin Ratio (0.9-2) Beta-Hydroxybutyric Acd 82.51 H (0.2-2.81) mg/dl TSH (0.300-4.500) uIu/ml HCG, Qual (Negative) Urine Color Urine Appearance (Clear) Urine pH (4.5-7.5) Ur Specific [place] (1.000-1.030) Urine Protein (Negative) Urine Glucose (UA) (Negative) Urine Ketones (Negative) Urine Blood (Negative) Urine Nitrite (Negative) Urine Bilirubin (Negative) Urine Urobilinogen (Negative) Ur Leukocyte Esterase (Negative) Urine WBC (Auto) (0-5) /hpf Urine RBC (Auto) (0-4) /hpf U Hyaline Cast (Auto) (0-5) /lpf U Epithel Cells (Auto) (0-5) /lpf Urine Bacteria (Auto) (Negative) Salicylates (2.8-20) mg/dl Urine Opiates Screen (Neg) U Codeine Confrm GC/MS Ur Morphine (GC/MS) Ur Hydrocodone (GC/MS) Ur Norhydrocodone Ur Noroxycodone Urine Oxycodone (GC/MS) U Oxymorphone GC/MS Ur Methadone, Qual (Neg) Ur Hydromorphone (GC/MS) Acetaminophen (10-30) ug/ml Urine Barbiturates (Neg) Ur Phencyclidine (PCP) (Neg) U Amphetamin/Meth Scrn (Neg) MDMA (Ecstasy) Screen (Neg) U Benzodiazepines Scrn (Neg) Ur Cocaine Metabolite (Neg) U Marijuana (THC) Screen (Neg) Drug Screen Comment Ethyl Alcohol mg/dL (0-3) mg/dl 06/11/21 06/11/21 06/11/21 Range/Units 07:44 07:44 06:13 WBC 3.07 L (4.8-10.8) K/uL RBC 3.82 L (4.2-5.4) M/uL Hgb 11.9 L (12.0-16.0) g/dL Hct 35.3 L (37-47) % MCV 92.4 (80-100) fL MCH 31.2 (25-34) pg MCHC 33.7 (32-36) g/dL RDW Std Deviation 52.6 H (36.4-46.3) fL RDW Coeff of Suzanne 15.4 H (11.5-14.5) % Plt Count 49 L D (130-400) K/uL MPV 9.4 (7.4-10.4) fL Immature Gran % (Auto) 0.0 % Neut % (Auto) 71.0 % Lymph % (Auto) 20.2 % [place] % (Auto) 7.8 % Eos % (Auto) 0.0 % Baso % (Auto) 1.0 % Neut # (Auto) 2.18 (1.4-6.5) K/uL Lymph # (Auto) 0.62 L (1.2-3.4) K/uL [place] # (Auto) 0.24 (0.11-0.59) K/uL Eos # (Auto) 0.00 (0-0.5) K/uL Baso # (Auto) 0.03 (0-0.2) K/uL Immature Gran # (Auto) 0.00 (0.00-0.02) K/uL Platelet Estimate Decreased L (Normal) Sodium 137 (136-145) mmol/L Potassium 3.9 (3.5-5.1) mmol/L Chloride 102 (98-107) mmol/L Carbon Dioxide 18 L (21-32) mmol/L Anion Gap 18.0 H (3-11) BUN 16 (7-18) mg/dl Creatinine 0.66 (0.6-1.2) mg/dl Est Cr Clr Drug Dosing 93.2 ml/min Est GFR ( Amer) 123.6 ml/min Est GFR (Non-Af Amer) 106.7 ml/min BUN/Creatinine Ratio 24.5 H (10-20) Glucose 126 H (70-99) mg/dl POC Glucose 123 H (70-99) mg/dl Calcium 9.0 (8.5-10.1) mg/dl Total Bilirubin 1.3 H (0.2-1) mg/dl AST 280 H (15-37) U/L ALT 137 H (12-78) Alkaline Phosphatase 200 H (45-117) U/L Ammonia (11-32) umol/L Total Protein 7.3 (6.4-8.2) gm/dl Albumin 3.8 (3.4-5.0) gm/dl Globulin 3.5 (2.5-4.0) gm/dl Albumin/Globulin Ratio 1.1 (0.9-2) Beta-Hydroxybutyric Acd (0.2-2.81) mg/dl TSH (0.300-4.500) uIu/ml HCG, Qual (Negative) Urine Color Urine Appearance (Clear) Urine pH (4.5-7.5) Ur Specific [place] (1.000-1.030) Urine Protein (Negative) Urine Glucose (UA) (Negative) Urine Ketones (Negative) Urine Blood (Negative) Urine Nitrite (Negative) Urine Bilirubin (Negative) Urine Urobilinogen (Negative) Ur Leukocyte Esterase (Negative) Urine WBC (Auto) (0-5) /hpf Urine RBC (Auto) (0-4) /hpf U Hyaline Cast (Auto) (0-5) /lpf U Epithel Cells (Auto) (0-5) /lpf Urine Bacteria (Auto) (Negative) Salicylates (2.8-20) mg/dl Urine Opiates Screen (Neg) U Codeine Confrm GC/MS Ur Morphine (GC/MS) Ur Hydrocodone (GC/MS) Ur Norhydrocodone Ur Noroxycodone Urine Oxycodone (GC/MS) U Oxymorphone GC/MS Ur Methadone, Qual (Neg) Ur Hydromorphone (GC/MS) Acetaminophen (10-30) ug/ml Urine Barbiturates (Neg) Ur Phencyclidine (PCP) (Neg) U Amphetamin/Meth Scrn (Neg) MDMA (Ecstasy) Screen (Neg) U Benzodiazepines Scrn (Neg) Ur Cocaine Metabolite (Neg) U Marijuana (THC) Screen (Neg) Drug Screen Comment Ethyl Alcohol mg/dL (0-3) mg/dl 06/10/21 06/10/21 06/10/21 Range/Units 23:57 21:16 17:10 WBC (4.8-10.8) K/uL RBC (4.2-5.4) M/uL Hgb (12.0-16.0) g/dL Hct (37-47) % MCV (80-100) fL MCH (25-34) pg MCHC (32-36) g/dL RDW Std Deviation (36.4-46.3) fL RDW Coeff of Suzanne (11.5-14.5) % Plt Count (130-400) K/uL MPV (7.4-10.4) fL Immature Gran % (Auto) % Neut % (Auto) % Lymph % (Auto) % [place] % (Auto) % Eos % (Auto) % Baso % (Auto) % Neut # (Auto) (1.4-6.5) K/uL Lymph # (Auto) (1.2-3.4) K/uL [place] # (Auto) (0.11-0.59) K/uL Eos # (Auto) (0-0.5) K/uL Baso # (Auto) (0-0.2) K/uL Immature Gran # (Auto) (0.00-0.02) K/uL Platelet Estimate (Normal) Sodium (136-145) mmol/L Potassium (3.5-5.1) mmol/L Chloride (98-107) mmol/L Carbon Dioxide (21-32) mmol/L Anion Gap (3-11) BUN (7-18) mg/dl Creatinine (0.6-1.2) mg/dl Est Cr Clr Drug Dosing ml/min Est GFR ( Amer) ml/min Est GFR (Non-Af Amer) ml/min BUN/Creatinine Ratio (10-20) Glucose (70-99) mg/dl POC Glucose 98 (70-99) mg/dl Calcium (8.5-10.1) mg/dl Total Bilirubin (0.2-1) mg/dl AST (15-37) U/L ALT (12-78) Alkaline Phosphatase (45-117) U/L Ammonia 35.3 H (11-32) umol/L Total Protein (6.4-8.2) gm/dl Albumin (3.4-5.0) gm/dl Globulin (2.5-4.0) gm/dl Albumin/Globulin Ratio (0.9-2) Beta-Hydroxybutyric Acd (0.2-2.81) mg/dl TSH (0.300-4.500) uIu/ml HCG, Qual Negative (Negative) Urine Color Urine Appearance (Clear) Urine pH (4.5-7.5) Ur Specific [place] (1.000-1.030) Urine Protein (Negative) Urine Glucose (UA) (Negative) Urine Ketones (Negative) Urine Blood (Negative) Urine Nitrite (Negative) Urine Bilirubin (Negative) Urine Urobilinogen (Negative) Ur Leukocyte Esterase (Negative) Urine WBC (Auto) (0-5) /hpf Urine RBC (Auto) (0-4) /hpf U Hyaline Cast (Auto) (0-5) /lpf U Epithel Cells (Auto) (0-5) /lpf Urine Bacteria (Auto) (Negative) Salicylates (2.8-20) mg/dl Urine Opiates Screen (Neg) U Codeine Confrm GC/MS Ur Morphine (GC/MS) Ur Hydrocodone (GC/MS) Ur Norhydrocodone Ur Noroxycodone Urine Oxycodone (GC/MS) U Oxymorphone GC/MS Ur Methadone, Qual (Neg) Ur Hydromorphone (GC/MS) Acetaminophen (10-30) ug/ml Urine Barbiturates (Neg) Ur Phencyclidine (PCP) (Neg) U Amphetamin/Meth Scrn (Neg) MDMA (Ecstasy) Screen (Neg) U Benzodiazepines Scrn (Neg) Ur Cocaine Metabolite (Neg) U Marijuana (THC) Screen (Neg) Drug Screen Comment Ethyl Alcohol mg/dL (0-3) mg/dl 06/10/21 06/10/21 06/10/21 Range/Units 17:10 17:10 17:10 WBC (4.8-10.8) K/uL RBC (4.2-5.4) M/uL Hgb (12.0-16.0) g/dL Hct (37-47) % MCV (80-100) fL MCH (25-34) pg MCHC (32-36) g/dL RDW Std Deviation (36.4-46.3) fL RDW Coeff of Suzanne (11.5-14.5) % Plt Count (130-400) K/uL MPV (7.4-10.4) fL Immature Gran % (Auto) % Neut % (Auto) % Lymph % (Auto) % [place] % (Auto) % Eos % (Auto) % Baso % (Auto) % Neut # (Auto) (1.4-6.5) K/uL Lymph # (Auto) (1.2-3.4) K/uL [place] # (Auto) (0.11-0.59) K/uL Eos # (Auto) (0-0.5) K/uL Baso # (Auto) (0-0.2) K/uL Immature Gran # (Auto) (0.00-0.02) K/uL Platelet Estimate (Normal) Sodium (136-145) mmol/L Potassium (3.5-5.1) mmol/L Chloride (98-107) mmol/L Carbon Dioxide (21-32) mmol/L Anion Gap (3-11) BUN (7-18) mg/dl Creatinine (0.6-1.2) mg/dl Est Cr Clr Drug Dosing ml/min Est GFR ( Amer) ml/min Est GFR (Non-Af Amer) ml/min BUN/Creatinine Ratio (10-20) Glucose (70-99) mg/dl POC Glucose (70-99) mg/dl Calcium (8.5-10.1) mg/dl Total Bilirubin 1.3 H (0.2-1) mg/dl AST (15-37) U/L ALT (12-78) Alkaline Phosphatase 244 H D (45-117) U/L Ammonia (11-32) umol/L Total Protein 8.4 H (6.4-8.2) gm/dl Albumin (3.4-5.0) gm/dl Globulin 4.0 (2.5-4.0) gm/dl Albumin/Globulin Ratio 1.1 (0.9-2) Beta-Hydroxybutyric Acd (0.2-2.81) mg/dl TSH 1.590 (0.300-4.500) uIu/ml HCG, Qual (Negative) Urine Color Urine Appearance (Clear) Urine pH (4.5-7.5) Ur Specific [place] (1.000-1.030) Urine Protein (Negative) Urine Glucose (UA) (Negative) Urine Ketones (Negative) Urine Blood (Negative) Urine Nitrite (Negative) Urine Bilirubin (Negative) Urine Urobilinogen (Negative) Ur Leukocyte Esterase (Negative) Urine WBC (Auto) (0-5) /hpf Urine RBC (Auto) (0-4) /hpf U Hyaline Cast (Auto) (0-5) /lpf U Epithel Cells (Auto) (0-5) /lpf Urine Bacteria (Auto) (Negative) Salicylates < 1.7 L (2.8-20) mg/dl Urine Opiates Screen (Neg) U Codeine Confrm GC/MS Ur Morphine (GC/MS) Ur Hydrocodone (GC/MS) Ur Norhydrocodone Ur Noroxycodone Urine Oxycodone (GC/MS) U Oxymorphone GC/MS Ur Methadone, Qual (Neg) Ur Hydromorphone (GC/MS) Acetaminophen < 2 L (10-30) ug/ml Urine Barbiturates (Neg) Ur Phencyclidine (PCP) (Neg) U Amphetamin/Meth Scrn (Neg) MDMA (Ecstasy) Screen (Neg) U Benzodiazepines Scrn (Neg) Ur Cocaine Metabolite (Neg) U Marijuana (THC) Screen (Neg) Drug Screen Comment Ethyl Alcohol mg/dL 338.0 H (0-3) mg/dl Medications Administered Acetaminophen (Acetaminophen 500 Mg Tab) 500 mg PO Q6H PRN PRN Reason: pain Stop: 07/11/21 11:28 Last Admin: 06/11/21 11:42 Dose: 500 mg Documented by: [id number] Chlordiazepoxide HCl (Chlordiazepoxide Hcl 25 Mg Cap) 50 mg PO Q6H ARMANI; Taper Stop: 06/14/21 05:59 Last Admin: 06/11/21 12:15 Dose: 50 mg Documented by: [id number] Admin: 06/11/21 06:15 Dose: 50 mg Documented by: [id number] Lorazepam (Ativan) 2 mg in 4 mls @ 4 mls/min IV UD PRN; Protocol PRN Reason: EtOH Withdrawl AWSS Score 8,9 Stop: 07/10/21 20:01 Last Admin: 06/10/21 23:51 Dose: 4 mls/min Documented by: [id number] Lactated Ringer's (Lr) 1,000 mls @ 200 mls/hr IV .Q5H [facility] Stop: 07/10/21 20:01 Last Admin: 06/11/21 13:36 Dose: 200 mls/hr Documented by: [id number] Infusion: 06/11/21 13:36 Dose: 200 mls/hr Documented by: [id number] Admin: 06/11/21 08:49 Dose: 200 mls/hr Documented by: [id number] Infusion: 06/11/21 08:48 Dose: 0 mls/hr Documented by: [id number] Admin: 06/11/21 03:32 Dose: 200 mls/hr Documented by: [id number] Lorazepam (Ativan) 1 mg in 2 mls @ 2 mls/min IV UD PRN; Protocol PRN Reason: EtOH Withdrawl AWSS Score 6,7 Stop: 07/10/21 20:01 Last Admin: 06/11/21 07:22 Dose: 2 mls/min Documented by: [id number] Admin: 06/11/21 04:28 Dose: 2 mls/min Documented by: [id number] Thiamine HCl 100 mg/ Syringe 10 mls @ 2 mls/min IV QAM [facility] Stop: 07/11/21 08:59 Last Admin: 06/11/21 09:16 Dose: 2 mls/min Documented by: [id number] Folic Acid 1 mg/ Syringe 10 mls @ 5 mls/min IV QAM [facility] Stop: 07/11/21 08:59 Last Admin: 06/11/21 09:16 Dose: 5 mls/min Documented by: [id number] Insulin Aspart (Insulin Aspart Per Unit) 0 units SC Q6 [facility] Stop: 07/11/21 05:59 Last Admin: 06/11/21 12:06 Dose: Not Given Documented by: [id number] Cosigned by: [id number] Admin: 06/11/21 06:14 Dose: Not Given Documented by: [id number] Cosigned by: [id number] Insulin Glargine (Insulin Glargine Solostar 100 Units/Ml 3 Ml Pen) 5 units SC BID [facility] Stop: 07/10/21 20:59 Last Admin: 06/11/21 09:17 Dose: Not Given Documented by: [id number] Admin: 06/11/21 00:01 Dose: Not Given Documented by: [id number] Morphine Sulfate (Morphine Sulfate 4 Mg/Ml 1 Ml Carp\\Vial) 4 mg IV Q3H PRN PRN Reason: Moderate Pain Rating (4,5,6) Stop: 06/25/21 02:46 Last Admin: 06/11/21 14:47 Dose: 4 mg Documented by: [id number] Ondansetron HCl (Ondansetron Inj 2 Mg/Ml 2 Ml Vial) 4 mg IV Q4H PRN PRN Reason: Nausea And Vomiting Stop: 07/10/21 20:01 Last Admin: 06/11/21 11:43 Dose: 4 mg Documented by: [id number] Admin: 06/11/21 05:16 Dose: 4 mg Documented by: [id number] Coding Level of Care Code 48980 Inpt Consult Level 3 Diagnoses Depression F32.9 Depression Type: unspecified Anxiety F41.9 Alcoholism F10.20
[2021-06-11] MEDS: HYDROmorphone INJ 0.5 MG/0.5 ML SYR IV PRN ×2 (17:57→22:38)
[2021-06-11] MEDS: MIRTAZAPINE TAB 15 MG TAB PO SCH (20:41)
[2021-06-11] MEDS ORDERED: MIRTAZAPINE TAB 15 MG TAB PO SCH (21:00)
[2021-06-11] MEDS: LORazepam 2 MG/4 ML VIAL IV PRN (22:39)
[2021-06-12] MEDS: INSULIN ASPART PER UNIT SC SCH ×6 (00:12→20:22)
[2021-06-12] MEDS: chlordiazePOXIDE HCl 25 MG CAP PO SCH ×4 (00:13→21:36)
[2021-06-12 01:24] LABS: BUN Creatinine Ratio 14.2 (10-20); Calcium 9.6 mg/dl (8.5-10.1); Creatinine Clr Calc Pharmacy 78.9 ml/min; Est GFR (African American) 106.4 ml/min; Est GFR (Non-African American) 91.8 ml/min; Phosphorus 1.6 mg/dl (2.5-4.9); Potassium 3.7 mmol/L (3.5-5.1)
[2021-06-12] MEDS: LACTATED RINGER'S 1,000 ML IV SCH ×4 (01:53→23:52)
--- NOTE | 2021-06-12 03:40 | Billing Data ---
Date of Service June 12, 2021 Coding Level of Care Code 22032 Initial Inpt Care Lvl 3
[2021-06-12] MEDS: LORazepam 2 MG/4 ML VIAL IV PRN ×6 (04:47→23:57)
[2021-06-12 05:46] LABS: Hematocrit (blood only) 34.7 % (37-47); Hemoglobin 11.8 g/dL (12.0-16.0); Mean Corpuscular Hemoglobin 31.2 pg (25-34); Mean Corpuscular Volume 91.8 fL (80-100); RDW Coefficient of Variation 15.2 % (11.5-14.5); RDW Standard Deviation 51.4 fL (36.4-46.3); Red Blood Count 3.78 M/uL (4.2-5.4); White Blood Count 3.39 K/uL (4.8-10.8)
[2021-06-12 05:53] LABS: Mean Platelet Volume 9.3 fL (7.4-10.4); Platelet Count 33 K/uL (130-400)
[2021-06-12 06:14] LABS: Lymphocytes # (auto) 0.52 K/uL (1.2-3.4); Lymphocytes % (auto) 15.3 %; Monocytes # (auto) 0.39 K/uL (0.11-0.59); Monocytes % (auto) 11.5 %; Neutrophils # (auto) 2.48 K/uL (1.4-6.5); Neutrophils % (auto) 73.2 %
[2021-06-12 06:36] LABS: BUN Creatinine Ratio 12.2 (10-20); Calcium 9.6 mg/dl (8.5-10.1); Est GFR (African American) 101.7 ml/min; Est GFR (Non-African American) 87.7 ml/min; Potassium 3.8 mmol/L (3.5-5.1)
[2021-06-12] MEDS ORDERED: SODIUM PHOSPHATE 3 MMOL/1 ML INFUSION IV STA (07:09)
[2021-06-12] MEDS ORDERED: Nursing to Pharmacy Communication SCH (07:15)
--- NOTE | 2021-06-12 07:40 | Hospitalist Progress Note ---
Date of Service June 12, 2021 Assessment & Plan (1) Acute pancreatitis: Plan: 45 yo F Hx diabetes, alcohol use disorder, recurrent pancreatitis, hepatic steatosis and cirrhosis, asthma, anxiety, neutropenia, and thrombocytopenia admitted for acute alcohol pancreatitis and hepatitis, as well as acute treatment of alcohol withdrawal. Alcohol pancreatitis: -Presenting with nausea and decreased PO intake with significant increase in alcohol use over the last few weeks. -Lipase elevated at 1187 with CTAP findings suggestive of acute pancreatitis; no evidence of necrotizing pancreatitis nor of pancreatic pseudocyst. -Received banana bag in ER; will continue with LR at 200cc/hr for aggressive hydration. -NPO for now with escalation of diet as patient tolerates. 06/12 attempted clear diet -Dilaudid ordered as needed for acute pain. Tylenol 500mg q6hr PRN for pain. -Zofran prn nausea. Ordered 1x10mg famotidine -potassium 2.9 phosphate 1.3 on labs, repleted with PO potassium chloride and potassium phosphate recheck BMP, phos Hepatic steatosis, alcohol hepatitis, cirrhosis: -History of severe hepatic steatosis for several years, with development of cirrhosis on abdomen imaging in 10/2020. -Most recent admission in 03/2021 for alcoholic hepatitis without evidence of hepatic encephalopathy. -No evidence this admission of ascites on imaging. -RUQ US given increased Alk Phos from typical to ensure no concurrent gallbladder pathology. -MELD score of 11 on admit, with Discriminant Function of 8.3, no indication for systemic steroid therapy. -No evidence of encephalopathy today; AAO x3 with ammonia level of 35. Recheck if worsening mental status with consideration for lactulose/Rifaximin. Alcohol withdrawal: -History of significant alcohol use with several admissions in the past for acute withdrawal. -Patient at time of my interview no longer wants to use alcohol but feels powerless to her addiction. -AWSS withdrawal protocol initiated, as well as Librium taper given that patient is having active withdrawal symptoms with very little interval between alcoholic beverages. Ordered IV folic acid and thiamine. 06/12 AWSS score 9 with hallucinations -sales enablement manager consulted for assistance with inpatient/outpatient alcohol rehab options. -Nutrition consult placed, as patient is likely malnourished given several weeks increased alcohol intake and subsequent decreased food intake. Metabolic acidosis: On presentation with gapped metabolic acidosis. Secondary to alcohol acidosis. Aggressive IV fluids ordered for overnight; suspect improvement in acidosis with IV fluids. Have transitioned to IVF 100cc/hr Repeat BMP in AM. Suicidal ideation: Presented to ER with suicidal ideation, though no active plan. Psych consulted. Patient will be evaluated by liaison. patient found to be passively suicidal under alcohol influence, currently denies suicidal ideation, denies needed inpatient rehab, considering meeting with AA again Suicide precautions now, and suicide tray once tolerating PO intake. Neutropenia, thrombocytopenia: History of, stable. Secondary to impaired platelet production, bone marrow suppression. No interventions at this time. Daily CBC while admitted. DM1: A1c 6.1 on 04/10/21. Holding home regimen in favor of basal/bolus insulin. Adjust parameters as patient increases PO intake. continue insulin glargine only while NPO Ordered beta-hydroxybuteric acid demonstrating ketoacidosis likely secondary to alcohol use Code Status: FULL CODE FEN: clear liquids carb counting, LR at 100cc/hr DVT ppx: SCDs Dispo: Telemetry (2) Asthma: (3) Suicidal ideation: (4) Alcohol abuse: (5) GERD (gastroesophageal reflux disease): (6) Diabetes: (7) Anxiety: (8) Cirrhosis: (9) Hepatic steatosis: (10) Splenomegaly: (11) Thrombocytopenia: (12) Leukocytopenia, unspecified: (13) Acidosis, metabolic: Admission and Anticipated Discharge Date Admission Date: June 10, 2021 Supervising Physician Co-Signing Physician Notes Patient seen and examined, chart reviewed, case discussed with Dr. Ortiz and I agree with the assessment and plan as above except as otherwise noted Marcus is a 45-year-old female with a history of severe alcohol use disorder, diabetes, pancreatitis, hepatic steatosis/cirrhosis, and pancytopenia admitted for acute alcohol pancreatitis and acute alcohol withdrawal. Visited twice today, patient anxious and somewhat confused, is oriented to name/place/date but thought process is tangential at best, frequent mumbling, and occasional air picking. Reports that she is upset at being in the hospital around [place] and would like to leave, is somewhat redirectable during exam. Pulse 77, skin warm slightly moist, slightly tremulous. Symmetrical chest rise, good air movement. Playing with phone, texting family but takes mostly garbled without linear thought process. Patient denies hallucinations auditory/visual, although air picking noted. Hemodynamically stable at time of assessment, although with increased delirium symptoms at time of bedside assessment. Continue Librium, AWSS Ativan as indicated. Abdominal pain improved on exam today, nontender to palpation. As tolerated sherbet this morning and is tolerating liquids well without pain, pancreatitis symptoms improving. Continue to advance diet as tolerated, wean fluids as diet increases. No hydromorphone required in last 12 hours for pain. Continue thiamine. Subjective 45yo Female here for pancreatitis, PMH DM1, alcohol use disorder, recurrent pancreatitis, hepatic steatosis, cirrhosis, asthma, anxiety, neutropenia, thrombocytopenia. Patient seen at bedside, cooperative lethargic. Patient denies any pain, nausea, states her tremors are minimal. She states she discussed outpatient management for her alcohol use disorder with Jose Martin in behavioral health. Patient understands that she needs to be able to keep food down and be out of alcohol withdrawal before we are comfortable sending her home. Per nursing, patient had elevated AWSS score up to 9 overnight with hallucinations and has required 4 doses ativan, her last dose was 2hr before she was seen. Patient had stated she wanted to leave the hospital to be home for the holidays, and demonstrated limited understanding of her current condition. . She vomitted overnight. Review of Systems Review of Systems: Negative fever chills Negative headache dizziness Negative chest pain palpitations SOB Negative nausea vomitting diarrhea constipation abd pain Physical Exam Constitutional: WD/WN, vitals as above Respiratory: normal respiratory effort, lungs clear to auscultation Cardiovascular: RRR, no murmur, no edema Heart Sounds: normal S1 and normal S2 Gastrointestinal (Abdomen): normal bowel sounds, soft, nontender, no hepatosplenomegaly Skin: no rashes, warm and dry Results & Data Results & Data ([facility]) Vital Signs (Past 12 Hours) Vital Signs Temp Pulse Resp BP Pulse Ox 06/12/21 04:30 36.7 C 76 12 126/84 98 06/11/21 23:02 36.9 C 83 18 133/83 95 Laboratory Results 06/12/21 06/12/21 06/12/21 Range/Units 15:57 15:04 15:04 WBC (4.8-10.8) K/uL RBC (4.2-5.4) M/uL Hgb (12.0-16.0) g/dL Hct (37-47) % MCV (80-100) fL MCH (25-34) pg MCHC (32-36) g/dL RDW Std Deviation (36.4-46.3) fL RDW Coeff of Suzanne (11.5-14.5) % Plt Count (130-400) K/uL MPV (7.4-10.4) fL Immature Gran % (Auto) % Neut % (Auto) % Lymph % (Auto) % Summit % (Auto) % Eos % (Auto) % Baso % (Auto) % Neut # (Auto) (1.4-6.5) K/uL Lymph # (Auto) (1.2-3.4) K/uL Summit # (Auto) (0.11-0.59) K/uL Eos # (Auto) (0-0.5) K/uL Baso # (Auto) (0-0.2) K/uL Immature Gran # (Auto) (0.00-0.02) K/uL Sodium 137 (136-145) mmol/L Potassium 2.9 L D (3.5-5.1) mmol/L Chloride 101 (98-107) mmol/L Carbon Dioxide 28 (21-32) mmol/L Anion Gap 8.0 (3-11) BUN 7 (7-18) mg/dl Creatinine 0.88 (0.6-1.2) mg/dl Est Cr Clr Drug Dosing 69.9 ml/min Est GFR ( Amer) 92.0 ml/min Est GFR (Non-Af Amer) 79.3 ml/min BUN/Creatinine Ratio 8.3 L (10-20) Glucose 129 H (70-99) mg/dl POC Glucose 118 H (70-99) mg/dl Calcium 9.8 Cancelled (8.5-10.1) mg/dl Phosphorus 1.6 L Cancelled (2.5-4.9) mg/dl Magnesium (1.8-2.4) mg/dl Beta-Hydroxybutyric Acd (0.2-2.81) mg/dl 06/12/21 06/12/21 06/12/21 Range/Units 11:15 07:23 06:40 WBC (4.8-10.8) K/uL RBC (4.2-5.4) M/uL Hgb (12.0-16.0) g/dL Hct (37-47) % MCV (80-100) fL MCH (25-34) pg MCHC (32-36) g/dL RDW Std Deviation (36.4-46.3) fL RDW Coeff of Suzanne (11.5-14.5) % Plt Count (130-400) K/uL MPV (7.4-10.4) fL Immature Gran % (Auto) % Neut % (Auto) % Lymph % (Auto) % [place] % (Auto) % Eos % (Auto) % Baso % (Auto) % Neut # (Auto) (1.4-6.5) K/uL Lymph # (Auto) (1.2-3.4) K/uL Summit # (Auto) (0.11-0.59) K/uL Eos # (Auto) (0-0.5) K/uL Baso # (Auto) (0-0.2) K/uL Immature Gran # (Auto) (0.00-0.02) K/uL Sodium (136-145) mmol/L Potassium (3.5-5.1) mmol/L Chloride (98-107) mmol/L Carbon Dioxide (21-32) mmol/L Anion Gap (3-11) BUN (7-18) mg/dl Creatinine (0.6-1.2) mg/dl Est Cr Clr Drug Dosing ml/min Est GFR ( Amer) ml/min Est GFR (Non-Af Amer) ml/min BUN/Creatinine Ratio (10-20) Glucose (70-99) mg/dl POC Glucose 101 H 127 H (70-99) mg/dl Calcium (8.5-10.1) mg/dl Phosphorus 1.3 L* (2.5-4.9) mg/dl Magnesium (1.8-2.4) mg/dl Beta-Hydroxybutyric Acd (0.2-2.81) mg/dl 06/12/21 06/12/21 06/12/21 Range/Units 05:24 05:20 05:09 WBC 3.39 L (4.8-10.8) K/uL RBC 3.78 L (4.2-5.4) M/uL Hgb 11.8 L (12.0-16.0) g/dL Hct 34.7 L (37-47) % MCV 91.8 (80-100) fL MCH 31.2 (25-34) pg MCHC 34.0 (32-36) g/dL RDW Std Deviation 51.4 H (36.4-46.3) fL RDW Coeff of Suzanne 15.2 H (11.5-14.5) % Plt Count 33 L (130-400) K/uL MPV 9.3 (7.4-10.4) fL Immature Gran % (Auto) 0.0 % Neut % (Auto) 73.2 % Lymph % (Auto) 15.3 % Summit % (Auto) 11.5 % Eos % (Auto) 0.0 % Baso % (Auto) 0.0 % Neut # (Auto) 2.48 (1.4-6.5) K/uL Lymph # (Auto) 0.52 L (1.2-3.4) K/uL Summit # (Auto) 0.39 (0.11-0.59) K/uL Eos # (Auto) 0.00 (0-0.5) K/uL Baso # (Auto) 0.00 (0-0.2) K/uL Immature Gran # (Auto) 0.00 (0.00-0.02) K/uL Sodium 133 L (136-145) mmol/L Potassium 3.8 (3.5-5.1) mmol/L Chloride 98 (98-107) mmol/L Carbon Dioxide 23 (21-32) mmol/L Anion Gap 12.0 H (3-11) BUN 10 (7-18) mg/dl Creatinine 0.81 (0.6-1.2) mg/dl Est Cr Clr Drug Dosing 76.0 ml/min Est GFR ( Amer) 101.7 ml/min Est GFR (Non-Af Amer) 87.7 ml/min BUN/Creatinine Ratio 12.2 (10-20) Glucose 134 H (70-99) mg/dl POC Glucose 129 H (70-99) mg/dl Calcium 9.6 (8.5-10.1) mg/dl Phosphorus (2.5-4.9) mg/dl Magnesium (1.8-2.4) mg/dl Beta-Hydroxybutyric Acd (0.2-2.81) mg/dl 06/12/21 06/12/21 06/11/21 Range/Units 00:32 00:02 20:22 WBC (4.8-10.8) K/uL RBC (4.2-5.4) M/uL Hgb (12.0-16.0) g/dL Hct (37-47) % MCV (80-100) fL MCH (25-34) pg MCHC (32-36) g/dL RDW Std Deviation (36.4-46.3) fL RDW Coeff of Suzanne (11.5-14.5) % Plt Count (130-400) K/uL MPV (7.4-10.4) fL Immature Gran % (Auto) % Neut % (Auto) % Lymph % (Auto) % [place] % (Auto) % Eos % (Auto) % Baso % (Auto) % Neut # (Auto) (1.4-6.5) K/uL Lymph # (Auto) (1.2-3.4) K/uL [place] # (Auto) (0.11-0.59) K/uL Eos # (Auto) (0-0.5) K/uL Baso # (Auto) (0-0.2) K/uL Immature Gran # (Auto) (0.00-0.02) K/uL Sodium 134 L (136-145) mmol/L Potassium 3.7 (3.5-5.1) mmol/L Chloride 99 (98-107) mmol/L Carbon Dioxide 21 (21-32) mmol/L Anion Gap 15.0 H (3-11) BUN 11 (7-18) mg/dl Creatinine 0.78 (0.6-1.2) mg/dl Est Cr Clr Drug Dosing 78.9 ml/min Est GFR ( Amer) 106.4 ml/min Est GFR (Non-Af Amer) 91.8 ml/min BUN/Creatinine Ratio 14.2 (10-20) Glucose 137 H (70-99) mg/dl POC Glucose 130 H 130 H (70-99) mg/dl Calcium 9.6 (8.5-10.1) mg/dl Phosphorus 1.6 L (2.5-4.9) mg/dl Magnesium 2.0 (1.8-2.4) mg/dl Beta-Hydroxybutyric Acd (0.2-2.81) mg/dl 06/11/21 06/11/21 Range/Units 18:16 14:53 WBC (4.8-10.8) K/uL RBC (4.2-5.4) M/uL Hgb (12.0-16.0) g/dL Hct (37-47) % MCV (80-100) fL MCH (25-34) pg MCHC (32-36) g/dL RDW Std Deviation (36.4-46.3) fL RDW Coeff of Suzanne (11.5-14.5) % Plt Count (130-400) K/uL MPV (7.4-10.4) fL Immature Gran % (Auto) % Neut % (Auto) % Lymph % (Auto) % [place] % (Auto) % Eos % (Auto) % Baso % (Auto) % Neut # (Auto) (1.4-6.5) K/uL Lymph # (Auto) (1.2-3.4) K/uL [place] # (Auto) (0.11-0.59) K/uL Eos # (Auto) (0-0.5) K/uL Baso # (Auto) (0-0.2) K/uL Immature Gran # (Auto) (0.00-0.02) K/uL Sodium (136-145) mmol/L Potassium (3.5-5.1) mmol/L Chloride (98-107) mmol/L Carbon Dioxide (21-32) mmol/L Anion Gap (3-11) BUN (7-18) mg/dl Creatinine (0.6-1.2) mg/dl Est Cr Clr Drug Dosing ml/min Est GFR ( Amer) ml/min Est GFR (Non-Af Amer) ml/min BUN/Creatinine Ratio (10-20) Glucose (70-99) mg/dl POC Glucose 122 H (70-99) mg/dl Calcium (8.5-10.1) mg/dl Phosphorus (2.5-4.9) mg/dl Magnesium (1.8-2.4) mg/dl Beta-Hydroxybutyric Acd 82.51 H (0.2-2.81) mg/dl Diagnostic Findings Abdomen/Pelvis CT 06/10/21 18:[address] WITH IV CONTRAST CT DOSE: 872.49 mGy.cm HISTORY: Acutely elevated lipase with alcoholism elev lipase, alcohol hx TECHNIQUE: Multiaxial CT images of the abdomen and pelvis were performed following the IV administration of 95 cc of Optiray, A dose lowering technique was utilized adhering to the principles of ALARA. COMPARISON STUDY: CT abdomen and pelvis 01/23/2021 FINDINGS: The imaged inferior cardiac chambers are unremarkable. Clear lung bases. No pneumatosis or pneumoperitoneum. The spleen is mildly enlarged. Moderately atrophic pancreas. There is mild interstitial and peripancreatic edema with trace free fluid adjacent to the duodenum tracking into the mesentery, and pelvis. Trace free fluid within the pericolic gutters. No pancreatic ductal dilation. Patent portal vein. The adrenal glands and gallbladder are unremarkable. Markedly heterogeneous liver with hepatic steatosis and mild mar ginal nodularity redemonstrated. 4 mm nonobstructing calculus of the interpolar left kidney. No ureteral calculi or hydronephrosis. Moderate urinary bladder distention. Follicular changes of the ovaries. Unremarkable uterus. Aorta and IVC are unremarkable. There is no adenopathy. Mild wall thickening of the duodenum is likely reactive. Mild wall thickening with partial distention of the cecum, ascending colon and hepatic flexure. Unremarkable soft tissues. There is no acute fracture. IMPRESSION: 1. Moderately atrophic pancreas with mild interstitial and peripancreatic edema suspicious for acute pancreatitis. Edema and trace fluid tracks into the pericolic gutters and dependent pelvis. 2. Marked heterogeneity of the liver with hepatic steatosis and suggested cirrhosis. 3. Wall thickening of the cecum, ascending colon and hepatic flexure is likely related to portal colopathy. A nonspecific colitis is considered less likely. 4. Mild splenomegaly. 5. Nonobstructing left nephrolithiasis. ACT 112: Negative or not required by law. The above report was generated using voice recognition software. It may contain grammatical, syntax or spelling errors. Electronically signed by: Tony Carney M.D. 06/10/2021 7:[address] 06/10/21 18:18 CT head/brain wo con CLINICAL HISTORY: 45 years-old Female with etoh, depression. Acute depression TECHNIQUE: Multiple axial CT images of the head were obtained without contrast. A dose lowering technique was utilized adhering to the principles of ALARA. COMPARISON: Head CT 02/20/2021 FINDINGS: No acute intracranial hemorrhage, midline shift, intracranial mass, hydrocephalus, territorial ischemia or abnormal extra-axial collection. The calvarium is intact. The paranasal sinuses, mastoid air cells, and middle ear cavities are clear. IMPRESSION: No acute intracranial abnormality. ACT 112: Negative or not required by law. The above report was generated using voice recognition software. It may contain grammatical, syntax or spelling errors. Electronically signed by: Tony Carney M.D. 06/10/2021 7:47 PM Liver Ultrasound 06/10/21 21:55 US liver CLINICAL HISTORY: Right upper quadrant pain and nausea. Elevated liver function tests. COMPARISON STUDY: Right upper quadrant ultrasound November 11, 2020. CT of the abdomen and pelvis June 10, 2021. FINDINGS: The liver is echogenic and heterogeneous. The liver is enlarged, measuring 24 cm in maximal sagittal dimension. No hepatic lesions are identified although sensitivity is diminished on this examination. There is no biliary ductal dilatation. The common bile duct measures 4 mm in caliber. Pancreas is largely obscured on this examination. No gallstones are noted. There is trace perihepatic and pericholecystic fluid. Gallbladder is not distended. Sonographic Duckworth sign could not be assessed for in this patient. There is no right hydronephrosis. IMPRESSION: 1. Hepatic steatosis and hepatomegaly. Probable cirrhosis. 2. No gallstones or biliary ductal dilatation. 3. Largely obscured pancreas. ACT 112: Negative or not required by law. Electronically signed by: Kishore Brown M.D. 06/11/2021 7:52 AM Medications Administered Current Inpatient Medications Acetaminophen (Acetaminophen 500 Mg Tab) 500 mg PO Q6H PRN PRN Reason: pain Stop: 07/11/21 11:28 Last Admin: 06/11/21 11:42 Dose: 500 mg Documented by: Albuterol (Albuterol Hfa 8 Gm Inhaler) 2 puffs INH Q6H PRN PRN Reason: Shortness Of Breath Stop: 07/11/21 02:46 Chlordiazepoxide HCl (Chlordiazepoxide Hcl 25 Mg Cap) 50 mg PO Q8H ARMANI; Taper Stop: 06/14/21 05:59 Last Admin: 06/12/21 13:25 Dose: 50 mg Documented by: Chlordiazepoxide HCl (Chlordiazepoxide Hcl 10 Mg Cap) 10 mg PO Q12H ARMANI Stop: 06/14/21 18:01 Dextrose (Dextrose 50% 50 Ml Syringe) 25 - 50 ml IV UD PRN; Protocol PRN Reason: Hypoglycemia Protocol Stop: 07/10/21 20:01 Glucagon (Glucagon For Inj 1 Mg Vial) 1 mg SQ UD PRN; Protocol PRN Reason: Hypoglycemia Protocol Stop: 07/10/21 20:01 Glucose (Glucose 10 Tabs/Tube) 4 - 8 tabs PO UD PRN; Protocol PRN Reason: Hypoglycemia Protocol Stop: 07/10/21 20:01 Glucose (Glucose 40% Gel 15 Gm Tube) 15 - 30 gm PO UD PRN; Protocol PRN Reason: Hypoglycemia Protocol Stop: 07/10/21 20:01 Hydromorphone HCl (Hydromorphone Inj 0.5 Mg/0.5 Ml Syr) 0.5 mg IV Q3H PRN PRN Reason: Severe Pain Rating (7,8,9,10) Stop: 06/24/21 20:01 Last Admin: 06/11/21 22:38 Dose: 0.5 mg Documented by: Lorazepam (Ativan) 2 mg in 4 mls @ 4 mls/min IV UD PRN; Protocol PRN Reason: EtOH Withdrawl AWSS Score 8,9 Stop: 07/10/21 20:01 Last Admin: 06/12/21 16:37 Dose: 4 mls/min Documented by: Lactated Ringer's (Lr) 1,000 mls @ 100 mls/hr IV .Q10H [facility] Stop: 07/10/21 20:01 Last Admin: 06/12/21 13:21 Dose: 100 mls/hr Documented by: Lorazepam (Ativan) 1 mg in 2 mls @ 2 mls/min IV UD PRN; Protocol PRN Reason: EtOH Withdrawl AWSS Score 6,7 Stop: 07/10/21 20:01 Last Admin: 06/11/21 07:22 Dose: 2 mls/min Documented by: Lorazepam (Ativan) 3 mg in 6 mls @ 4 mls/min IV ONCE PRN; Protocol PRN Reason: EtOH Withdrawl AWSS Score >=10 Stop: 07/10/21 20:01 Thiamine HCl 100 mg/ Syringe 10 mls @ 2 mls/min IV QAM [facility] Stop: 07/11/21 08:59 Last Admin: 06/12/21 08:26 Dose: 2 mls/min Documented by: Folic Acid 1 mg/ Syringe 10 mls @ 5 mls/min IV QAM [facility] Stop: 07/11/21 08:59 Last Admin: 06/12/21 08:26 Dose: 5 mls/min Documented by: Insulin Aspart (Insulin Aspart Per Unit) 0 units SC ACHS [facility] Stop: 07/11/21 05:59 Last Admin: 06/12/21 16:47 Dose: 4 units Documented by: Insulin Glargine (Insulin Glargine Solostar 100 Units/Ml 3 Ml Pen) 5 units SC BID [facility] Stop: 07/10/21 20:59 Last Admin: 06/12/21 08:26 Dose: 5 units Documented by: Melatonin (Melatonin 3 Mg Tab) 9 mg PO HSZ PRN PRN Reason: Sleep Stop: 07/11/21 02:53 Mirtazapine (Mirtazapine Tab 15 Mg Tab) 22.5 mg PO HS [facility] Stop: 07/11/21 20:59 Last Admin: 06/11/21 20:41 Dose: 22.5 mg Documented by: Miscellaneous (Carbohydrates For Hypoglycemia ) 15 - 30 gm PO UD PRN PRN Reason: Hypoglycemia Protocol Stop: 07/10/21 20:01 Morphine Sulfate (Morphine Sulfate 4 Mg/Ml 1 Ml Carp\Vial) 4 mg IV Q3H PRN PRN Reason: Moderate Pain Rating (4,5,6) Stop: 06/25/21 02:46 Last Admin: 06/11/21 14:47 Dose: 4 mg Documented by: Ondansetron HCl (Ondansetron Inj 2 Mg/Ml 2 Ml Vial) 4 mg IV Q4H PRN PRN Reason: Nausea And Vomiting Stop: 07/10/21 20:01 Last Admin: 06/11/21 22:39 Dose: 4 mg Documented by: Potassium Chloride (Potassium Chloride Crtab 20 Meq Tabcr) 40 meq PO TODAY@1800 ONE Stop: 06/12/21 18:01 Potassium Phosphate (Pot Phosphate Monobasic W/ Sod Tab) 1 tab PO QID [facility] Stop: 07/12/21 08:59 Last Admin: 06/12/21 16:39 Dose: 1 tab Documented by: Resident Activity Tracking Resident Involvement: Resident Care Provided Care Provided: Adult Hospital Medicine (1) Diabetes Diabetes mellitus complication status: without complication Diabetes mellitus long-term insulin use: unspecified long-term insulin use status Diabetes manool itus type: due to underlying condition Qualified Code(s): E08.9 - Diabetes mellitus due to underlying condition without complications (2) GERD (gastroesophageal reflux disease) Esophagitis presence: without esophagitis Qualified Code(s): K21.9 - Gastro- esophageal reflux disease without esophagitis (3) Asthma Asthma complication type: unspecified Asthma persistence: unspecified Asthma severity: unspecified severity Qualified Code(s): J45.909 - Unspecified asthma, uncomplicated
[2021-06-12] MEDS ORDERED: SODIUM PHOSPHATE 21 MMOL in SODIUM CHLORIDE 0.9% 500 ML IV ONE (08:00)
[2021-06-12] MEDS: THIAMINE HCL 100 MG in SYRINGE 9 ML IV SCH (08:26)
[2021-06-12] MEDS: FOLIC ACID 1 MG in SYRINGE 9.8 ML IV SCH (08:26)
[2021-06-12] MEDS: INSULIN GLARGINE SOLOSTAR 100 UNITS/ML 3 ML PEN SC SCH ×2 (08:26→21:26)
[2021-06-12] MEDS: POT PHOSPHATE MONOBASIC W/ SOD TAB PO SCH ×4 (08:33→20:11)
--- NOTE | 2021-06-12 12:07 | Communication Note ---
Date of Service: June 12, 2021 increase in alcohol withdrawal delirium in that clear yesterday pm, now hallucinating and picking or sewing at the air. She is experience gait disturban ce with 2 assist. Detox per medical. No additional changes in Remeron until delirium improves. Should restart naltrexone 50 mg when through detox as has been helpful on outpatient basis and prescriber may determine she is a candidate for Vivitrol.
[2021-06-12 15:41] LABS: BUN Creatinine Ratio 8.3 (10-20); Calcium 9.8 mg/dl (8.5-10.1); Creatinine Clr Calc Pharmacy 69.9 ml/min; Est GFR (Non-African American) 79.3 ml/min; Phosphorus 1.6 mg/dl (2.5-4.9); Potassium 2.9 mmol/L (3.5-5.1)
[2021-06-12] MEDS ORDERED: POTASSIUM CHLORIDE CRTAB 20 MEQ TABCR PO STA (15:57)
--- NOTE | 2021-06-12 16:42 | Billing Data ---
Date of Service June 11, 2021 Coding Level of Care Code 90311 Subseq Hosp Care Lvl 3
--- NOTE | 2021-06-12 16:43 | Billing Data ---
Date of Service June 12, 2021 Coding Level of Care Code 73336 Subseq Hosp Care Lvl 3
[2021-06-12] MEDS ORDERED: POTASSIUM CHLORIDE CRTAB 20 MEQ TABCR PO ONE (18:00)
[2021-06-12] MEDS: HYDROmorphone INJ 0.5 MG/0.5 ML SYR IV PRN (19:46)
[2021-06-12] MEDS: MIRTAZAPINE TAB 15 MG TAB PO SCH (20:11)
--- NOTE | 2021-06-12 22:00 | Electrocardiogram Report ---
Test Reason : Blood Pressure : / mmHG Vent. Rate : 092 BPM Atrial Rate : 092 BPM P-R Int : 156 ms QRS Dur : 108 ms QT Int : 370 ms P-R-T Axes : 051 029 044 degrees QTc Int : 457 ms Normal sinus rhythm Cannot rule out Anterior infarct , age undetermined Abnormal ECG When compared with ECG of 09-APR-2021 19:43, CA interval has increased Confirmed by Kevin Lambert ([id number]) on 06/12/2021 9:59:35 PM Referred By: REFERRED SELF Confirmed By:Kevin Lambert
[2021-06-13] MEDS: HYDROmorphone INJ 0.5 MG/0.5 ML SYR IV PRN (01:22)
[2021-06-13] MEDS: chlordiazePOXIDE HCl 25 MG CAP PO SCH ×3 (06:01→21:04)
[2021-06-13 06:16] LABS: Hematocrit (blood only) 34.2 % (37-47); Hemoglobin 11.6 g/dL (12.0-16.0); Mean Corpuscular Hemoglobin 30.9 pg (25-34); Mean Corpuscular Hgb Conc 33.9 g/dL (32-36); Mean Corpuscular Volume 91.2 fL (80-100); RDW Standard Deviation 49.9 fL (36.4-46.3); Red Blood Count 3.75 M/uL (4.2-5.4); White Blood Count 1.79 K/uL (4.8-10.8)
--- NOTE | 2021-06-13 06:27 | Electrocardiogram Report ---
Test Reason : Blood Pressure : / mmHG Vent. Rate : 070 BPM Atrial Rate : 070 BPM P-R Int : 140 ms QRS Dur : 088 ms QT Int : 430 ms P-R-T Axes : 046 027 039 degrees QTc Int : 464 ms Normal sinus rhythm with sinus arrhythmia T wave abnormality, consider anterior ischemia Abnormal ECG When compared with ECG of 10-JUN-2021 17:02, T wave inversion now evident in Anterior leads Confirmed by Kevin Lambert ([id number] on 06/13/2021 6:27:02 AM Referred By: REFERRED SELF Confirmed By:Kevin Lambert
[2021-06-13 06:42] LABS: Mean Platelet Volume 10.3 fL (7.4-10.4); Platelet Count 32 K/uL (130-400)
[2021-06-13 06:43] LABS: RBC Morphology Unremarkable
[2021-06-13 06:45] LABS: ALC (manual) 0.76 K/uL (1.2-3.4); ANC (manual) 0.83 K/uL (1.4-6.5); Basophils # (manual) 0.03 K/uL (0-0.2); Basophils % (manual) 1.7 %; Lymphocytes # (manual) 0.51 K/uL (1.2-3.4); Lymphocytes % (manual) 28.4 %; Monocytes # (manual) 0.17 K/uL (0.11-0.59); Monocytes % (manual) 9.5 %; Neutrophils # (manual) 0.83 K/uL (1.4-6.5); Neutrophils % (manual) 46.6 %; Reactive Lymphocytes # (manual) 0.25 K/uL; Reactive Lymphocytes % (manual) 13.8 %
[2021-06-13 06:49] LABS: BUN Creatinine Ratio 9.6 (10-20); Calcium 9.5 mg/dl (8.5-10.1); Creatinine Clr Calc Pharmacy 93.2 ml/min; Est GFR (African American) 123.6 ml/min; Est GFR (Non-African American) 106.7 ml/min; Potassium 3.3 mmol/L (3.5-5.1)
[2021-06-13 07:30] LABS: Phosphorus 2.6 mg/dl (2.5-4.9)
[2021-06-13] MEDS ORDERED: POTASSIUM CHLORIDE CRTAB 20 MEQ TABCR PO ONE (07:30)
--- NOTE | 2021-06-13 07:41 | Hospitalist Progress Note ---
Date of Service June 13, 2021 Assessment & Plan (1) Acute pancreatitis: Plan: 45 yo F Hx diabetes, alcohol use disorder, recurrent pancreatitis, hepatic steatosis and cirrhosis, asthma, anxiety, neutropenia, and thrombocytopenia admitted for acute alcohol pancreatitis and hepatitis, as well as acute treatment of alcohol withdrawal. Alcohol pancreatitis: -Presenting with nausea and decreased PO intake with significant increase in alcohol use over the last few weeks. -Lipase elevated at 1187 with CTAP findings suggestive of acute pancreatitis; no evidence of necrotizing pancreatitis nor of pancreatic pseudocyst. -Received banana bag in ER; will continue with LR at 200cc/hr for aggressive hydration. -NPO for now with escalation of diet as patient tolerates. 06/13 tolerated clear diet advanced to regular -Dilaudid ordered as needed for acute pain. Tylenol 500mg q6hr PRN for pain. -Zofran prn nausea. Ordered 1x10mg famotidine -potassium phosphate lowlabs, repleted recheck BMP Hepatic steatosis, alcohol hepatitis, cirrhosis: -History of severe hepatic steatosis for several years, with development of cirrhosis on abdomen imaging in 10/2020. -Most recent admission in 03/2021 for alcoholic hepatitis without evidence of hepatic encephalopathy. -No evidence this admission of ascites on imaging. -RUQ US given increased Alk Phos from typical to ensure no concurrent gallbladder pathology. -MELD score of 11 on admit, with Discriminant Function of 8.3, no indication for systemic steroid therapy. -No evidence of encephalopathy today; AAO x3 with ammonia level of 35. Recheck if worsening mental status with consideration for lactulose/Rifaximin. Alcohol withdrawal: -History of significant alcohol use with several admissions in the past for acute withdrawal. -Patient at time of my interview no longer wants to use alcohol but feels powerless to her addiction. -AWSS withdrawal protocol initiated, as well as Librium taper given that patient is having active withdrawal symptoms with very little interval between alcoholic beverages. Ordered IV folic acid and thiamine. 06/12 AWSS score 9 with hallucinations 06/13 AWSS score 6 -telephonic nurse case manager consulted for assistance with inpatient/outpatient alcohol rehab options. -Nutrition consult placed, as patient is likely malnourished given several weeks increased alcohol intake and subsequent decreased food intake. Metabolic acidosis: On presentation with gapped metabolic acidosis. Secondary to alcohol acidosis. Aggressive IV fluids ordered for overnight; suspect improvement in acidosis with IV fluids. Have transitioned to IVF 100cc/hr Repeat BMP in AM. Suicidal ideation: Presented to ER with suicidal ideation, though no active plan. Psych consulted. Patient will be evaluated by liaison. patient found to be passively suicidal under alcohol influence, currently denies suicidal ideation, denies needed inpatient rehab, considering meeting with AA again Suicide precautions now, and suicide tray once tolerating PO intake. Has 1:1 sitter Neutropenia, thrombocytopenia: History of, stable. Secondary to impaired platelet production, bone marrow suppression. No interventions at this time. Daily CBC while admitted. DM1: A1c 6.1 on 04/10/21. Holding home regimen in favor of basal/bolus insulin. Adjust parameters as patient increases PO intake. continue insulin glargine only while NPO Ordered beta-hydroxybuteric acid demonstrating ketoacidosis likely secondary to alcohol use Code Status: FULL CODE FEN: regular carb counting, LR at 100cc/hr DVT ppx: SCDs Dispo: Telemetry (2) Asthma: (3) Suicidal ideation: (4) Alcohol abuse: (5) GERD (gastroesophageal reflux disease): (6) Diabetes: (7) Anxiety: (8) Cirrhosis: (9) Hepatic steatosis: (10) Splenomegaly: (11) Thrombocytopenia: (12) Leukocytopenia, unspecified: (13) Acidosis, metabolic: Admission and Anticipated Discharge Date Admission Date: June 10, 2021 Supervising Physician Co-Signing Physician Notes Patient seen and examined, chart reviewed, case discussed with Dr. Ortiz and I agree with the assessment and plan as above except as otherwise noted Marcus is a 45-year-old female with a history of severe alcohol use disorder, diabetes, pancreatitis, hepatic steatosis/cirrhosis, and pancytopenia admitted for acute alcohol pancreatitis and acute alcohol withdrawal. In AM, patient anxious and somnolent/sedated. Multiple JAMESON scoring overnight. Awake, drowsy, where that is still undergoing symptoms of acute alcohol withdrawal. Pulse 801 100s, skin warm slightly moist, slightly tremulous. Symmetrical chest rise, good air movement. Delirium symptoms somewhat improved from yesterday, recommend continuing to use minimum appropriate doses of break through Ativan scoring, continue Librium taper. Patient is now on day 3 of withdrawal, no history of seizures, requiring IV doses of medication. Once hemodynamically stable, not requiring breakthrough doses of medication, and mentation improved can move forward with disposition planning. No abdominal pain at time of assessment, diet improving, pancreatitis appears to be improving clinically. Continue thiamine, minimal doses of pain medication as required only for breakthrough pain. Subjective 45yo Female here for pancreatitis, PMH DM1, alcohol use disorder, recurrent pancreatitis, hepatic steatosis, cirrhosis, asthma, anxiety, neutropenia, thrombocytopenia. Patient seen at bedside, cooperative lethargic. Patient denies any pain, nausea, states she tolerated clear liquid diet. Patient fell asleep mid conversation and needed to be woken. She has a 1:1 sitter Per nursing, patient had elevated AWSS score up to 9 overnight with hallucin ations and has required 4 doses ativan, her last dose was 2hr before she was seen. Review of Systems Review of Systems: Negative fever chills Negative headache dizziness Negative chest pain palpitations SOB Negative nausea vomitting diarrhea constipation abd pain Physical Exam Constitutional: WD/WN, vitals as above + lethargic Respiratory: normal respiratory effort, lungs clear to auscultation Cardiovascular: RRR, no murmur, no edema Heart Sounds: normal S1 and normal S2 Gastrointestinal (Abdomen): normal bowel sounds, soft, nontender, no hepatosplenomegaly Inspection/Auscultation: abdomen normal to inspection and normal bowel sounds Skin: no rashes, warm and dry Results & Data Results & Data ([facility]) Vital Signs (Past 12 Hours) Vital Signs Temp Pulse Resp BP Pulse Ox 06/13/21 04:42 36.9 C 98 H 14 107/87 98 06/13/21 00:17 36.6 C 77 20 118/71 93 Laboratory Results 06/13/21 06/13/21 06/13/21 Range/Units 15:06 10:50 05:55 WBC (4.8-10.8) K/uL RBC (4.2-5.4) M/uL Hgb (12.0-16.0) g/dL Hct (37-47) % MCV (80-100) fL MCH (25-34) pg MCHC (32-36) g/dL RDW Std Deviation (36.4-46.3) fL RDW Coeff of Suzanne (11.5-14.5) % Plt Count (130-400) K/uL MPV (7.4-10.4) fL Neutrophils % (Manual) % Lymphocytes % (Manual) % Reactive Lymphs % (Man) % Monocytes % (Manual) % Basophils % (Manual) % Neutrophils # (Manual) (1.4-6.5) K/uL Total Absolute Neuts (1.4-6.5) K/uL Lymphocytes # (Manual) (1.2-3.4) K/uL Reactive Lymphs # K/uL Total Abs Lymphocytes (1.2-3.4) K/uL Monocytes # (Manual) (0.11-0.59) K/uL Basophils # (Manual) (0-0.2) K/uL RBC Morphology Sodium 139 (136-145) mmol/L Potassium 3.3 L (3.5-5.1) mmol/L Chloride 104 (98-107) mmol/L Carbon Dioxide 29 (21-32) mmol/L Anion Gap 6.0 (3-11) BUN 6 L (7-18) mg/dl Creatinine 0.66 (0.6-1.2) mg/dl Est Cr Clr Drug Dosing 93.2 ml/min Est GFR ( Amer) 123.6 ml/min Est GFR (Non-Af Amer) 106.7 ml/min BUN/Creatinine Ratio 9.6 L (10-20) Glucose 109 H (70-99) mg/dl POC Glucose 82 116 H (70-99) mg/dl Calcium 9.5 (8.5-10.1) mg/dl Phosphorus 2.6 D (2.5-4.9) mg/dl 06/13/21 06/12/21 Range/Units 05:55 19:53 WBC 1.79 L (4.8-10.8) K/uL RBC 3.75 L (4.2-5.4) M/uL Hgb 11.6 L (12.0-16.0) g/dL Hct 34.2 L (37-47) % MCV 91.2 (80-100) fL MCH 30.9 (25-34) pg MCHC 33.9 (32-36) g/dL RDW Std Deviation 49.9 H (36.4-46.3) fL RDW Coeff of Suzanne 15.0 H (11.5-14.5) % Plt Count 32 L (130-400) K/uL MPV 10.3 (7.4-10.4) fL Neutrophils % (Manual) 46.6 % Lymphocytes % (Manual) 28.4 % Reactive Lymphs % (Man) 13.8 % Monocytes % (Manual) 9.5 % Basophils % (Manual) 1.7 % Neutrophils # (Manual) 0.83 L (1.4-6.5) K/uL Total Absolute Neuts 0.83 L* (1.4-6.5) K/uL Lymphocytes # (Manual) 0.51 L (1.2-3.4) K/uL Reactive Lymphs # 0.25 K/uL Total Abs Lymphocytes 0.76 L (1.2-3.4) K/uL Monocytes # (Manual) 0.17 (0.11-0.59) K/uL Basophils # (Manual) 0.03 (0-0.2) K/uL RBC Morphology Unremarkable Sodium (136-145) mmol/L Potassium (3.5-5.1) mmol/L Chloride (98-107) mmol/L Carbon Dioxide (21-32) mmol/L Anion Gap (3-11) BUN (7-18) mg/dl Creatinine (0.6-1.2) mg/dl Est Cr Clr Drug Dosing ml/min Est GFR ( Amer) ml/min Est GFR (Non-Af Amer) ml/min BUN/Creatinine Ratio (10-20) Glucose (70-99) mg/dl POC Glucose 70 (70-99) mg/dl Calcium (8.5-10.1) mg/dl Phosphorus (2.5-4.9) mg/dl Diagnostic Findings Abdomen/Pelvis CT 06/10/21 18:[address] WITH IV CONTRAST CT DOSE: 872.49 mGy.cm HISTORY: Acutely elevated lipase with alcoholism elev lipase, alcohol hx TECHNIQUE: Multiaxial CT images of the abdomen and pelvis were performed following the IV administration of 95 cc of Optiray, A dose lowering technique was utilized adhering to the principles of ALARA. COMPARISON STUDY: CT abdomen and pelvis 01/23/2021 FINDINGS: The imaged inferior cardiac chambers are unremarkable. Clear lung bases. No pneumatosis or pneumoperitoneum. The spleen is mildly enlarged. Moderately atrophic pancreas. There is mild interstitial and peripancreatic edema with trace free fluid adjacent to the duodenum tracking into the mesentery, and pelvis. Trace free fluid within the pericolic gutters. No pancreatic ductal dilation. Patent portal vein. The adrenal glands and gallbladder are unremarkable. Markedly heterogeneous liver with hepatic steatosis and mild marginal nodularity redemonstrated. 4 mm nonobstructing calculus of the interpolar left kidney. No ureteral calculi or hydronephrosis. Moderate urinary bladder distention. Follicular changes of the ovaries. Unremarkable uterus. Aorta and IVC are unremarkable. There is no adenopathy. Mild wall thickening of the duodenum is likely reactive. Mild wall thickening with partial distention of the cecum, ascending colon and hepatic flexure. Unremarkable soft tissues. There is no acute fracture. IMPRESSION: 1. Moderately atrophic pancreas with mild interstitial and peripancreatic edema suspicious for acute pancreatitis. Edema and trace fluid tracks into the pericolic gutters and dependent pelvis. 2. Marked heterogeneity of the liver with hepatic steatosis and suggested cirrhosis. 3. Wall thickening of the cecum, ascending colon and hepatic flexure is likely related to portal colopathy. A nonspecific colitis is considered less likely. 4. Mild splenomegaly. 5. Nonobstructing left nephrolithiasis. ACT 112: Negative or not required by law. The above report was generated using voice recognition software. It may contain grammatical, syntax or spelling errors. Electronically signed by: Tony Carney M.D. 06/10/2021 7:[address] 06/10/21 18:18 CT head/brain wo con CLINICAL HISTORY: 45 years-old Female with etoh, depression. Acute depression TECHNIQUE: Multiple axial CT images of the head were obtained without contrast. A dose lowering technique was utilized adhering to the principles of ALARA. COMPARISON: Head CT 02/20/2021 FINDINGS: No acute intracranial hemorrhage, midline shift, intracranial mass, hydro cephalus, territorial ischemia or abnormal extra-axial collection. The calvarium is intact. The paranasal sinuses, mastoid air cells, and middle ear cavities are clear. IMPRESSION: No acute intracranial abnormality. ACT 112: Negative or not required by law. The above report was generated using voice recognition software. It may contain grammatical, syntax or spelling errors. Electronically signed by: Tony Carney M.D. 06/10/2021 7:47 PM Liver Ultrasound 06/10/21 21:55 US liver CLINICAL HISTORY: Right upper quadrant pain and nausea. Elevated liver function tests. COMPARISON STUDY: Right upper quadrant ultrasound November 11, 2020. CT of the abdomen and pelvis June 10, 2021. FINDINGS: The liver is echogenic and heterogeneous. The liver is enlarged, measuring 24 cm in maximal sagittal dimension. No hepatic lesions are identified although sensitivity is diminished on this examination. There is no biliary ductal dilatation. The common bile duct measures 4 mm in caliber. Pancreas is largely obscured on this examination. No gallstones are noted. There is trace perihepatic and pericholecystic fluid. Gallbladder is not distended. Sonographic Duckworth sign could not be assessed for in this patient. There is no right hydronephrosis. IMPRESSION: 1. Hepatic steatosis and hepatomegaly. Probable cirrhosis. 2. No gallstones or biliary ductal dilatation. 3. Largely obscured pancreas. ACT 112: Negative or not required by law. Electronically signed by: Kishore Brown M.D. 06/11/2021 7:52 AM Medications Administered Current Inpatient Medications Acetaminophen (Acetaminophen 500 Mg Tab) 500 mg PO Q6H PRN PRN Reason: pain Stop: 07/11/21 11:28 Last Admin: 06/11/21 11:42 Dose: 500 mg Documented by: Albuterol (Albuterol Hfa 8 Gm Inhaler) 2 puffs INH Q6H PRN PRN Reason: Shortness Of Breath Stop: 07/11/21 02:46 Chlordiazepoxide HCl (Chlordiazepoxide Hcl 25 Mg Cap) 25 mg PO Q8H ARMANI; Taper Stop: 06/14/21 05:59 Last Admin: 06/13/21 13:51 Dose: 25 mg Documented by: Chlordiazepoxide HCl (Chlordiazepoxide Hcl 10 Mg Cap) 10 mg PO Q12H ARMANI Stop: 06/14/21 18:01 Dextrose (Dextrose 50% 50 Ml Syringe) 25 - 50 ml IV UD PRN; Protocol PRN Reason: Hypoglycemia Protocol Stop: 07/10/21 20:01 Glucagon (Glucagon For Inj 1 Mg Vial) 1 mg SQ UD PRN; Protocol PRN Reason: Hypoglycemia Protocol Stop: 07/10/21 20:01 Glucose (Glucose 10 Tabs/Tube) 4 - 8 tabs PO UD PRN; Protocol PRN Reason: Hypoglycemia Protocol Stop: 07/10/21 20:01 Glucose (Glucose 40% Gel 15 Gm Tube) 15 - 30 gm PO UD PRN; Protocol PRN Reason: Hypoglycemia Protocol Stop: 07/10/21 20:01 Hydromorphone HCl (Hydromorphone Inj 0.5 Mg/0.5 Ml Syr) 0.5 mg IV Q3H PRN PRN Reason: Severe Pain Rating (7,8,9,10) Stop: 06/24/21 20:01 Last Admin: 06/13/21 01:22 Dose: 0.5 mg Documented by: Lorazepam (Ativan) 2 mg in 4 mls @ 4 mls/min IV UD PRN; Protocol PRN Reason: EtOH Withdrawl AWSS Score 8,9 Stop: 07/10/21 20:01 Last Admin: 06/13/21 07:46 Dose: 4 mls/min Documented by: Lactated Ringer's (Lr) 1,000 mls @ 100 mls/hr IV .Q10H [facility] Stop: 07/10/21 20:01 Last Admin: 06/13/21 16:46 Dose: 100 mls/hr Documented by: Lorazepam (Ativan) 1 mg in 2 mls @ 2 mls/min IV UD PRN; Protocol PRN Reason: EtOH Withdrawl AWSS Score 6,7 Stop: 07/10/21 20:01 Last Admin: 06/11/21 07:22 Dose: 2 mls/min Documented by: Lorazepam (Ativan) 3 mg in 6 mls @ 4 mls/min IV ONCE PRN; Protocol PRN Reason: EtOH Withdrawl AWSS Score >=10 Stop: 07/10/21 20:01 Thiamine HCl 100 mg/ Syringe 10 mls @ 2 mls/min IV QAM [facility] Stop: 07/11/21 08:59 Last Admin: 06/13/21 07:46 Dose: 2 mls/min Documented by: Folic Acid 1 mg/ Syringe 10 mls @ 5 mls/min IV QAM [facility] Stop: 07/11/21 08:59 Last Admin: 06/13/21 07:46 Dose: 5 mls/min Documented by: Insulin Aspart (Insulin Aspart Per Unit) 0 units SC ACHS [facility] Stop: 07/11/21 05:59 Last Admin: 06/13/21 16:46 Dose: Not Given Documented by: Insulin Glargine (Insulin Glargine Solostar 100 Units/Ml 3 Ml Pen) 5 units SC BID [facility] Stop: 07/10/21 20:59 Last Admin: 06/13/21 07:46 Dose: 5 units Documented by: Melatonin (Melatonin 3 Mg Tab) 9 mg PO HSZ PRN PRN Reason: Sleep Stop: 07/11/21 02:53 Mirtazapine (Mirtazapine Tab 15 Mg Tab) 22.5 mg PO HS ARMANI Stop: 07/11/21 20:59 Last Admin: 06/12/21 20:11 Dose: 22.5 mg Documented by: Miscellaneous (Carbohydrates For Hypoglycemia ) 15 - 30 gm PO UD PRN PRN Reason: Hypoglycemia Protocol Stop: 07/10/21 20:01 Morphine Sulfate (Morphine Sulfate 4 Mg/Ml 1 Ml Carp\Vial) 4 mg IV Q3H PRN PRN Reason: Moderate Pain Rating (4,5,6) Stop: 06/25/21 02:46 Last Admin: 06/11/21 14:47 Dose: 4 mg Documented by: Ondansetron HCl (Ondansetron Inj 2 Mg/Ml 2 Ml Vial) 4 mg IV Q4H PRN PRN Reason: Nausea And Vomiting Stop: 07/10/21 20:01 Last Admin: 06/11/21 22:39 Dose: 4 mg Documented by: Potassium Phosphate (Pot Phosphate Monobasic W/ Sod Tab) 1 tab PO QID [facility] Stop: 07/12/21 08:59 Last Admin: 06/13/21 16:46 Dose: 1 tab Documented by: Resident Activity Tracking Resident Involvement: Resident Care Provided Care Provided: Adult Hospital Medicine (1) Diabetes Diabetes mellitus complication status: without complication Diabetes mellitus custodial insulin use: unspecified terminologist insulin use status Diabetes mellitus type: due to underlying condition Qualified Code(s): E08.9 - Diabetes mellitus due to underlying condition without complications (2) GERD (gastroesophageal reflux disease) Esophagitis presence: without esophagitis Qualified Code(s): K21.9 - Gastro- esophageal reflux disease without esophagitis (3) Asthma Asthma complication type: unspecified Asthma persistence: unspecified Asthma severity: unspecified severity Qualified Code(s): J45.909 - Unspecified asthma, uncomplicated
[2021-06-13] MEDS: FOLIC ACID 1 MG in SYRINGE 9.8 ML IV SCH (07:46)
[2021-06-13] MEDS: INSULIN GLARGINE SOLOSTAR 100 UNITS/ML 3 ML PEN SC SCH ×2 (07:46→21:02)
[2021-06-13] MEDS: LORazepam 2 MG/4 ML VIAL IV PRN (07:46)
[2021-06-13] MEDS: THIAMINE HCL 100 MG in SYRINGE 9 ML IV SCH (07:46)
[2021-06-13] MEDS: POT PHOSPHATE MONOBASIC W/ SOD TAB PO SCH ×4 (07:47→21:02)
[2021-06-13] MEDS: INSULIN ASPART PER UNIT SC SCH ×4 (07:49→21:01)
[2021-06-13] MEDS: LACTATED RINGER'S 1,000 ML IV SCH ×2 (08:29→16:46)
--- NOTE | 2021-06-13 16:30 | Billing Data ---
Date of Service June 13, 2021 Coding Level of Care Code 67192 Subseq Hosp Care Lvl 3
[2021-06-13] MEDS: MIRTAZAPINE TAB 15 MG TAB PO SCH (21:03)
[2021-06-14] MEDS: LACTATED RINGER'S 1,000 ML IV SCH (02:50)
[2021-06-14 06:25] LABS: BUN Creatinine Ratio 11.2 (10-20); Calcium 9.4 mg/dl (8.5-10.1); Creatinine Clr Calc Pharmacy 109.9 ml/min; Est GFR (African American) 130.5 ml/min; Est GFR (Non-African American) 112.6 ml/min; Potassium 3.4 mmol/L (3.5-5.1)
--- NOTE | 2021-06-14 06:35 | Electrocardiogram Report ---
Test Reason : Blood Pressure : / mmHG Vent. Rate : 092 BPM Atrial Rate : 092 BPM P-R Int : 144 ms QRS Dur : 082 ms QT Int : 370 ms P-R-T Axes : 046 074 046 degrees QTc Int : 457 ms Normal sinus rhythm Normal ECG When compared with ECG of 11-JUN-2021 11:31, T wave inversion no longer evident in Anterior leads Confirmed by Kevin Lambert ([id number] on 06/14/2021 6:35:12 AM Referred By: REFERRED SELF Confirmed By:Kevin Lambert
--- NOTE | 2021-06-14 06:49 | Hospitalist Progress Note ---
Date of Service June 14, 2021 Assessment & Plan (1) Acute pancreatitis: Plan: 45 yo F Hx diabetes, alcohol use disorder, recurrent pancreatitis, hepatic steatosis and cirrhosis, asthma, anxiety, neutropenia, and thrombocytopenia admitted for acute alcohol pancreatitis and hepatitis, as well as acute treatment of alcohol withdrawal. Alcohol pancreatitis: -Presenting with nausea and decreased PO intake with significant increase in alcohol use over the last few weeks. -Lipase elevated at 1187 with CTAP findings suggestive of acute pancreatitis; no evidence of necrotizing pancreatitis nor of pancreatic pseudocyst. -Received banana bag in ER; will continue with LR at 200cc/hr for aggressive hydration. -NPO for now with escalation of diet as patient tolerates. 06/13 tolerated clear diet advanced to regular -Dilaudid ordered as needed for acute pain. Tylenol 500mg q6hr PRN for pain. -Zofran prn nausea. Ordered 1x10mg famotidine -potassium phosphate lowlabs, repleted recheck BMP -patient downgraded from PCU to med/tele Hepatic steatosis, alcohol hepatitis, cirrhosis: -History of severe hepatic steatosis for several years, with development of cirrhosis on abdomen imaging in 10/2020. -Most recent admission in 03/2021 for alcoholic hepatitis without evidence of hepatic encephalopathy. -No evidence this admission of ascites on imaging. -RUQ US given increased Alk Phos from typical to ensure no concurrent gallbladder pathology. -MELD score of 11 on admit, with Discriminant Function of 8.3, no indication for systemic steroid therapy. -No evidence of encephalopathy on admit; AAO x3 with ammonia level of 35. Recheck if worsening mental status with consideration for lactulose/Rifaximin. Alcohol withdrawal: -History of significant alcohol use with several admissions in the past for acute withdrawal. -Patient at time of my interview no longer wants to use alcohol but feels powerless to her addiction. -Nutrition consult placed, as patient is likely malnourished given several weeks increased alcohol intake and subsequent decreased food intake. -AWSS withdrawal protocol initiated, as well as Librium taper given that patient is having active withdrawal symptoms with very little interval between alcoholic beverages. Ordered IV folic acid and thiamine. 06/12 AWSS score 9 with hallucinations 06/13 AWSS score 6 did not require ativan overnight 06/14 AWSS score 3 -laundry manager psychiatric liason consulted for assistance with inpatient /outpatient alcohol rehab options. -patient to titrate remeron to 30mg tomorrow, restart naltrexone Metabolic acidosis: On presentation with gapped metabolic acidosis secondary to alcohol acidosis. Aggressive IV fluids ordered for overnight; suspect improvement in acidosis with IV fluids. Have transitioned to IVF 100cc/hr, dc'd 06/14 Repeat BMP in AM. Suicidal ideation: Presented to ER with suicidal ideation, though no active plan. Psych consulted. Patient will be evaluated by liaison. patient found to be passively suicidal under alcohol influence, currently denies suicidal ideation, denies needed inpatient rehab, considering meeting with AA again Suicide precautions now, and suicide tray once tolerating PO intake. Has 1:1 sitter dc'd 06/14 Neutropenia, thrombocytopenia: History of, stable. Secondary to impaired platelet production, bone marrow suppression. No interventions at this time. Daily CBC while admitted. DM1: A1c 6.1 on 04/10/21. Holding home regimen in favor of basal/bolus insulin. Adjust parameters as patient increases PO intake. continue insulin glargine only while NPO Ordered beta-hydroxybuteric acid demonstrating ketoacidosis likely secondary to alcohol use Code Status: FULL CODE FEN: regular carb counting DVT ppx: SCDs Dispo: Telemetry (2) Asthma: (3) Suicidal ideation: (4) Alcohol abuse: (5) GERD (gastroesophageal reflux disease): (6) Diabetes: (7) Anxiety: (8) Cirrhosis: (9) Hepatic steatosis: (10) Splenomegaly: (11) Thrombocytopenia: (12) Leukocytopenia, unspecified: (13) Acidosis, metabolic: Admission and Anticipated Discharge Date Admission Date: June 10, 2021 Supervising Physician Co-Signing Physician Notes Patient seen and examined, chart reviewed, case discussed with Dr. Ortiz and I agree with the assessment and plan as above except as otherwise noted Marcus is a 45-year-old female with a history of severe alcohol use disorder, diabetes, pancreatitis, hepatic steatosis/cirrhosis, and pancytopenia admitted for acute alcohol pancreatitis and acute alcohol withdrawal. Patient did not receive breakthrough Ativan overnight. Remains very sedated this morning, somnolent. Alert and oriented to name, year, and place. Initially not oriented to month and then reorients easily. Denies pain. Tolerating meals. Breathing unlabored, skin warm and dry. Remains somewhat tremulous. Chest rise symmetrical, no increased work of breathing. Not responding to internal stimuli, thought process more goal-directed. Stable for downgrade to med telemetry, may discontinue one-to-one. Goal up titration of Remeron to 30 mg, and restart naltrexone tomorrow. Anticipate conversion to Vivitrol as outpatient if willing to follow-up with [facility]. Downgrade, follow sedation. If sedation and mental status appropriately improved suspect progression towards discharge possibly tomorrow. Subjective 45yo Female here for pancreatitis, PMH DM1, alcohol use disorder, recurrent pancreatitis, hepatic steatosis, cirrhosis, asthma, anxiety, neutropenia, thrombocytopenia. Patient seen at bedside, lethargic fell asleep after confirming her name. Later patient states she would like to be home before the holidays. Per nursing she has not required additional ativan, has not had additional hallucinations, is able to tolerate full diet without vomitting and would like to advance to regular diet. She has requested water and soda to drink. Patient requires assistance in eating due to ongoing tremors and her current lethargy. Patient has required assistance walking to the bathroom. Review of Systems Review of Systems: no nausea, vomitting, abd pain Physical Exam Constitutional: WD/WN, vitals as above + lethargic Respiratory: normal respiratory effort, lungs clear to auscultation Cardiovascular: RRR, no murmur, no edema Heart Sounds: normal S1 and normal S2 Gastrointestinal (Abdomen): normal bowel sounds, soft, nontender, no hepatosplenomegaly Inspection/Auscultation: abdomen normal to inspection and normal bowel sounds Skin: no rashes, warm and dry Results & Data Results & Data ([facility]) Vital Signs (Past 12 Hours) Vital Signs Temp Pulse Resp BP Pulse Ox 06/14/21 03:20 36.8 C 84 18 103/68 98 06/13/21 20:00 37.4 C 103 H 23 113/77 92 Laboratory Results 06/14/21 06/14/21 06/14/21 Range/Units 10:54 07:22 05:05 WBC 1.79 L (4.8-10.8) K/uL RBC 3.59 L (4.2-5.4) M/uL Hgb 11.2 L (12.0-16.0) g/dL Hct 33.9 L (37-47) % MCV 94.4 (80-100) fL MCH 31.2 (25-34) pg MCHC 33.0 (32-36) g/dL RDW Std Deviation 51.3 H (36.4-46.3) fL RDW Coeff of Suzanne 15.0 H (11.5-14.5) % Plt Count 38 L (130-400) K/uL MPV 10.1 (7.4-10.4) fL Sodium (136-145) mmol/L Potassium (3.5-5.1) mmol/L Chloride (98-107) mmol/L Carbon Dioxide (21-32) mmol/L Anion Gap (3-11) BUN (7-18) mg/dl Creatinine (0.6-1.2) mg/dl Est Cr Clr Drug Dosing ml/min Est GFR ( Amer) ml/min Est GFR (Non-Af Amer) ml/min BUN/Creatinine Ratio (10-20) Glucose (70-99) mg/dl POC Glucose 140 H 87 (70-99) mg/dl Calcium (8.5-10.1) mg/dl U Codeine Confrm GC/MS (<50) ng/mL Ur Morphine (GC/MS) (<50) ng/mL Ur Hydrocodone (GC/MS) (<50) ng/mL Ur Norhydrocodone (<50) ng/mL Ur Noroxycodone (<50) ng/mL Urine Oxycodone (GC/MS) (<50) ng/mL U Oxymorphone GC/MS (<50) ng/mL Ur Hydromorphone (GC/MS) (<50) ng/mL Drug Screen Comment 06/14/21 06/13/21 06/13/21 Range/Units 05:01 20:59 15:06 WBC (4.8-10.8) K/uL RBC (4.2-5.4) M/uL Hgb (12.0-16.0) g/dL Hct (37-47) % MCV (80-100) fL MCH (25-34) pg MCHC (32-36) g/dL RDW Std Deviation (36.4-46.3) fL RDW Coeff of Suzanne (11.5-14.5) % Plt Count (130-400) K/uL MPV (7.4-10.4) fL Sodium 140 (136-145) mmol/L Potassium 3.4 L (3.5-5.1) mmol/L Chloride 104 (98-107) mmol/L Carbon Dioxide 31 (21-32) mmol/L Anion Gap 5.0 (3-11) BUN 6 L (7-18) mg/dl Creatinine 0.56 L (0.6-1.2) mg/dl Est Cr Clr Drug Dosing 109.9 ml/min Est GFR ( Amer) 130.5 ml/min Est GFR (Non-Af Amer) 112.6 ml/min BUN/Creatinine Ratio 11.2 (10-20) Glucose 96 (70-99) mg/dl POC Glucose 131 H 82 (70-99) mg/dl Calcium 9.4 (8.5-10.1) mg/dl U Codeine Confrm GC/MS (<50) ng/mL Ur Morphine (GC/MS) (<50) ng/mL Ur Hydrocodone (GC/MS) (<50) ng/mL Ur Norhydrocodone (<50) ng/mL Ur Noroxycodone (<50) ng/mL Urine Oxycodone (GC/MS) (<50) ng/mL U Oxymorphone GC/MS (<50) ng/mL Ur Hydromorphone (GC/MS) (<50) ng/mL Drug Screen Comment 06/11/21 Range/Units 15:47 WBC (4.8-10.8) K/uL RBC (4.2-5.4) M/uL Hgb (12.0-16.0) g/dL Hct (37-47) % MCV (80-100) fL MCH (25-34) pg MCHC (32-36) g/dL RDW Std Deviation (36.4-46.3) fL RDW Coeff of Suzanne (11.5-14.5) % Plt Count (130-400) K/uL MPV (7.4-10.4) fL Sodium (136-145) mmol/L Potassium (3.5-5.1) mmol/L Chloride (98-107) mmol/L Carbon Dioxide (21-32) mmol/L Anion Gap (3-11) BUN (7-18) mg/dl Creatinine (0.6-1.2) mg/dl Est Cr Clr Drug Dosing ml/min Est GFR ( Amer) ml/min Est GFR (Non-Af Amer) ml/min BUN/Creatinine Ratio (10-20) Glucose (70-99) mg/dl POC Glucose (70-99) mg/dl Calcium (8.5-10.1) mg/dl U Codeine Confrm GC/MS NEGATIVE (<50) ng/mL Ur Morphine (GC/MS) 1740 H (<50) ng/mL Ur Hydrocodone (GC/MS) NEGATIVE (<50) ng/mL Ur Norhydrocodone NEGATIVE (<50) ng/mL Ur Noroxycodone NEGATIVE (<50) ng/mL Urine Oxycodone (GC/MS) NEGATIVE (<50) ng/mL U Oxymorphone GC/MS NEGATIVE (<50) ng/mL Ur Hydromorphone (GC/MS) NEGATIVE (<50) ng/mL Drug Screen Comment SEE NOTE Diagnostic Findings Abdomen/Pelvis CT 06/10/21 18:[address] WITH IV CONTRAST CT DOSE: 872.49 mGy.cm HISTORY: Acutely elevated lipase with alcoholism elev lipase, alcohol hx TECHNIQUE: Multiaxial CT images of the abdomen and pelvis were performed following the IV administration of 95 cc of Optiray, A dose lowering technique was utilized adhering to the principles of ALARA. COMPARISON STUDY: CT abdomen and pelvis 01/23/2021 FINDINGS: The imaged inferior cardiac chambers are unremarkable. Clear lung bases. No pneumatosis or pneumoperitoneum. The spleen is mildly enlarged. Moderately atrophic pancreas. There is mild interstitial and peripancreatic edema with trace free fluid adjacent to the duodenum tracking into the mesentery, and pelvis. Trace free fluid within the pericolic gutters. No pancreatic ductal dilation. Patent portal vein. The adrenal glands and gallbladder are unremarkable. Markedly heterogeneous liver with hepatic steatosis and mild marginal nodularity redemonstrated. 4 mm nonobstructing calculus of the interpolar left kidney. No ureteral calculi or hydronephrosis. Moderate urinary bladder distention. Follicular changes of the ovaries. Unremarkable uterus. Aorta and IVC are unremarkable. There is no adenopathy. Mild wall thickening of the duodenum is likely reactive. Mild wall thickening with partial distention of the cecum, ascending colon and hepatic flexure. Unremarkable soft tissues. There is no acute fracture. IMPRESSION: 1. Moderately atrophic pancreas with mild interstitial and peripancreatic edema suspicious for acute pancreatitis. Edema and trace fluid tracks into the pericolic gutters and dependent pelvis. 2. Marked heterogeneity of the liver with hepatic steatosis and suggested cirrhosis. 3. Wall thickening of the cecum, ascending colon and hepatic flexure is likely related to portal colopathy. A nonspecific colitis is considered less likely. 4. Mild splenomegaly. 5. Nonobstructing left nephrolithiasis. ACT 112: Negative or not required by law. The above report was generated using voice recognition software. It may contain grammatical, syntax or spelling errors. Electronically signed by: Tony Carney M.D. 06/10/2021 7:[address] 06/10/21 18:18 CT head/brain wo con CLINICAL HISTORY: 45 years-old Female with etoh, depression. Acute depression TECHNIQUE: Multiple axial CT images of the head were obtained without contrast. A dose lowering technique was utilized adhering to the principles of ALARA. COMPARISON: Head CT 02/20/2021 FINDINGS: No acute intracranial hemorrhage, midline shift, intracranial mass, hydrocephalus, territorial ischemia or abnormal extra-axial collection. The calvarium is intact. The paranasal sinuses, mastoid air cells, and middle ear cavities are clear. IMPRESSION: No acute intracranial abnormality. ACT 112: Negative or not required by law. The above report was generated using voice recognition software. It may contain grammatical, syntax or spelling errors. Electronically signed by: Tony Carney M.D. 06/10/2021 7:47 PM Liver Ultrasound 06/10/21 21:55 US liver CLINICAL HISTORY: Right upper quadrant pain and nausea. Elevated liver function tests. COMPARISON STUDY: Right upper quadrant ultrasound November 11, 2020. CT of the abdomen and pelvis June 10, 2021. FINDINGS: The liver is echogenic and heterogeneous. The liver is enlarged, measuring 24 cm in maximal sagittal dimension. No hepatic lesions are identified although sensitivity is diminished on this examination. There is no biliary ductal dilatation. The common bile duct measures 4 mm in caliber. Pancreas is largely obscured on this examination. No gallstones are noted. There is trace perihepatic and pericholecystic fluid. Gallbladder is not distended. Sonographic Duckworth sign could not be assessed for in this patient. There is no right hydronephrosis. IMPRESSION: 1. Hepatic steatosis and hepatomegaly. Probable cirrhosis. 2. No gallstones or biliary ductal dilatation. 3. Largely obscured pancreas. ACT 112: Negative or not required by law. Electronically signed by: Kishore Brown M.D. 06/11/2021 7:52 AM Medications Administered Current Inpatient Medications Acetaminophen (Acetaminophen 500 Mg Tab) 500 mg PO Q6H PRN PRN Reason: pain Stop: 07/11/21 11:28 Last Admin: 06/11/21 11:42 Dose: 500 mg Documented by: Albuterol (Albuterol Hfa 8 Gm Inhaler) 2 puffs INH Q6H PRN PRN Reason: Shortness Of Breath Stop: 07/11/21 02:46 Chlordiazepoxide HCl (Chlordiazepoxide Hcl 10 Mg Cap) 10 mg PO Q12H ARMANI Stop: 06/14/21 18:01 Last Admin: 06/14/21 07:56 Dose: 10 mg Documented by: Dextrose (Dextrose 50% 50 Ml Syringe) 25 - 50 ml IV UD PRN; Protocol PRN Reason: Hypoglycemia Protocol Stop: 07/10/21 20:01 Glucagon (Glucagon For Inj 1 Mg Vial) 1 mg SQ UD PRN; Protocol PRN Reason: Hypoglycemia Protocol Stop: 07/10/21 20:01 Glucose (Glucose 10 Tabs/Tube) 4 - 8 tabs PO UD PRN; Protocol PRN Reason: Hypoglycemia Protocol Stop: 07/10/21 20:01 Glucose (Glucose 40% Gel 15 Gm Tube) 15 - 30 gm PO UD PRN; Protocol PRN Reason: Hypoglycemia Protocol Stop: 07/10/21 20:01 Hydromorphone HCl (Hydromorphone Inj 0.5 Mg/0.5 Ml Syr) 0.5 mg IV Q3H PRN PRN Reason: Severe Pain Rating (7,8,9,10) Stop: 06/24/21 20:01 Last Admin: 06/13/21 01:22 Dose: 0.5 mg Documented by: Lorazepam (Ativan) 2 mg in 4 mls @ 4 mls/min IV UD PRN; Protocol PRN Reason: EtOH Withdrawl AWSS Score 8,9 Stop: 07/10/21 20:01 Last Admin: 06/13/21 07:46 Dose: 4 mls/min Documented by: Lorazepam (Ativan) 1 mg in 2 mls @ 2 mls/min IV UD PRN; Protocol PRN Reason: EtOH Withdrawl AWSS Score 6,7 Stop: 07/10/21 20:01 Last Admin: 06/11/21 07:22 Dose: 2 mls/min Documented by: Lorazepam (Ativan) 3 mg in 6 mls @ 4 mls/min IV ONCE PRN; Protocol PRN Reason: EtOH Withdrawl AWSS Score >=10 Stop: 07/10/21 20:01 Thiamine HCl 100 mg/ Syringe 10 mls @ 2 mls/min IV QAM [facility] Stop: 07/11/21 08:59 Last Admin: 06/14/21 08:30 Dose: 2 mls/min Documented by: Folic Acid 1 mg/ Syringe 10 mls @ 5 mls/min IV QAM [facility] Stop: 07/11/21 08:59 Last Admin: 06/14/21 08:30 Dose: 5 mls/min Documented by: Insulin Aspart (Insulin Aspart Per Unit) 0 units SC ACHS [facility] Stop: 07/11/21 05:59 Last Admin: 06/14/21 07:57 Dose: Not Given Documented by: Insulin Glargine (Insulin Glargine Solostar 100 Units/Ml 3 Ml Pen) 5 units SC BID [facility] Stop: 07/10/21 20:59 Last Admin: 06/14/21 07:56 Dose: 5 units Documented by: Melatonin (Melatonin 3 Mg Tab) 9 mg PO HSZ PRN PRN Reason: Sleep Stop: 07/11/21 02:53 Mirtazapine (Mirtazapine Tab 15 Mg Tab) 22.5 mg PO HS ARMANI Stop: 07/11/21 20:59 Last Admin: 06/13/21 21:03 Dose: 22.5 mg Documented by: Miscellaneous (Carbohydrates For Hypoglycemia ) 15 - 30 gm PO UD PRN PRN Reason: Hypoglycemia Protocol Stop: 07/10/21 20:01 Morphine Sulfate (Morphine Sulfate 4 Mg/Ml 1 Ml Carp\Vial) 4 mg IV Q3H PRN PRN Reason: Moderate Pain Rating (4,5,6) Stop: 06/25/21 02:46 Last Admin: 06/11/21 14:47 Dose: 4 mg Documented by: Ondansetron HCl (Ondansetron Inj 2 Mg/Ml 2 Ml Vial) 4 mg IV Q4H PRN PRN Reason: Nausea And Vomiting Stop: 07/10/21 20:01 Last Admin: 06/11/21 22:39 Dose: 4 mg Documented by: Potassium Phosphate (Pot Phosphate Monobasic W/ Sod Tab) 1 tab PO QID ARMANI Stop: 07/12/21 08:59 Last Admin: 06/14/21 07:56 Dose: 1 tab Documented by: Resident Activity Tracking Resident Involvement: Resident Care Provided Care Provided: Adult Hospital Medicine (1) Diabetes Diabetes mellitus complication status: without complication Diabetes mellitus 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
[2021-06-14] MEDS ORDERED: POTASSIUM CHLORIDE CRTAB 20 MEQ TABCR PO ONE (07:36)
[2021-06-14 07:49] LABS: Hematocrit (blood only) 33.9 % (37-47); Hemoglobin 11.2 g/dL (12.0-16.0); Mean Corpuscular Hemoglobin 31.2 pg (25-34); Mean Corpuscular Volume 94.4 fL (80-100); RDW Standard Deviation 51.3 fL (36.4-46.3); Red Blood Count 3.59 M/uL (4.2-5.4); White Blood Count 1.79 K/uL (4.8-10.8)
[2021-06-14] MEDS: INSULIN GLARGINE SOLOSTAR 100 UNITS/ML 3 ML PEN SC SCH ×2 (07:56→21:34)
[2021-06-14] MEDS: POT PHOSPHATE MONOBASIC W/ SOD TAB PO SCH ×4 (07:56→21:37)
[2021-06-14] MEDS: INSULIN ASPART PER UNIT SC SCH ×4 (07:57→21:33)
[2021-06-14 08:07] LABS: Mean Platelet Volume 10.1 fL (7.4-10.4); Platelet Count 38 K/uL (130-400)
[2021-06-14] MEDS: FOLIC ACID 1 MG in SYRINGE 9.8 ML IV SCH (08:30)
[2021-06-14] MEDS: THIAMINE HCL 100 MG in SYRINGE 9 ML IV SCH (08:30)
[2021-06-14 10:07] LABS: Codeine Urine NEGATIVE ng/mL (<50); Hydrocodone Urine NEGATIVE ng/mL (<50); Hydromor Urine NEGATIVE ng/mL (<50); Morphine Urine 1740 ng/mL (<50); Norhydrocodone Conf Ur NEGATIVE ng/mL (<50); Noroxycodone Urine NEGATIVE ng/mL (<50); Oxycodone Urine NEGATIVE ng/mL (<50); Oxymorph Urine NEGATIVE ng/mL (<50)
--- NOTE | 2021-06-14 16:37 | Billing Data ---
Date of Service June 14, 2021 Coding Level of Care Code 89127 Subseq Hosp Care Lvl 2
[2021-06-14] MEDS: MIRTAZAPINE TAB 15 MG TAB PO SCH (21:37)
[2021-06-15 04:48] LABS: Hematocrit (blood only) 38.4 % (37-47); Hemoglobin 12.9 g/dL (12.0-16.0); Mean Corpuscular Hemoglobin 31.7 pg (25-34); Mean Corpuscular Hgb Conc 33.6 g/dL (32-36); Mean Corpuscular Volume 94.3 fL (80-100); RDW Coefficient of Variation 15.1 % (11.5-14.5); RDW Standard Deviation 52.3 fL (36.4-46.3); Red Blood Count 4.07 M/uL (4.2-5.4)
[2021-06-15 04:53] LABS: Mean Platelet Volume 10.6 fL (7.4-10.4); Platelet Count 45 K/uL (130-400)
[2021-06-15 05:18] LABS: BUN Creatinine Ratio 17.1 (10-20); Calcium 10.3 mg/dl (8.5-10.1); Creatinine Clr Calc Pharmacy 96.1 ml/min; Est GFR (African American) 124.9 ml/min; Est GFR (Non-African American) 107.8 ml/min; Potassium 3.8 mmol/L (3.5-5.1)
[2021-06-15] MEDS: INSULIN ASPART PER UNIT SC SCH ×2 (09:10→11:54)
[2021-06-15] MEDS: INSULIN GLARGINE SOLOSTAR 100 UNITS/ML 3 ML PEN SC SCH (09:10)
[2021-06-15] MEDS: THIAMINE HCL 100 MG in SYRINGE 9 ML IV SCH (09:11)
[2021-06-15] MEDS: POT PHOSPHATE MONOBASIC W/ SOD TAB PO SCH ×2 (09:11→11:54)
[2021-06-15] MEDS: FOLIC ACID 1 MG in SYRINGE 9.8 ML IV SCH (09:11)
--- NOTE | 2021-06-15 13:17 | Discharge Summary ---
Date of Service June 15, 2021 Admission HPI Per Admitting Provider 45 yo F Hx diabetes, alcohol use disorder, recurrent pancreatitis, hepatic steatosis and cirrhosis, asthma, anxiety, subarachnoid hemorrhage, neutropenia, and thrombocytopenia presented to the ER for increase in alcohol use and reports of suicidal ideation and worsening anxiety. In the ER she was given Ativan 1mg IV with improvement in tremulousness and anxiety. She reports on history that she was admitted in March for similar symptoms, and was doing wel for a few weeks with regard to her alcohol intake, however over the last two weeks has "fallen off of the wagon" due to family stressors (daughter not getting into college yet, father having suicidal ideation, unable to get a job). She has been using alcohol to cope and has been drinking several glasses of wine daily as well as some amount of liquor. She denies drug use. She denies seizures and hallucinations. She endorses wishing she would "not wake up", but does not have any intent to harm others. She states that she is "sick of herself for not being able to stay clean". She does not endorse abdominal pain, chest pain, SOB, vomiting, fevers. She admits to some nausea and decreased appetite over the last several days. In the ER patient had CT Head without acute abnormalities. CTAP with IV contrast showed evidence of acute pancreatitis without pancreatic pseudocyst or signs of necrosis, hepatic steatosis and evidence of cirrhosis, and mild splenomegaly. She was noted on labwork to have leukopenia and thrombocytopenia, INR of 1.4, gapped metabolic acidosis, TBili 1.3, elevated transaminases with 2:1 AST/ALT ratio, elevated Alk Phos, ammonia 35.3, lipase 1187, and ethyl alcohol level of 338. Admission Exam Per Admitting Provider Constitutional: WD/WN, vitals as above Eyes: PERRL, conjunctivae normal, anicteric sclerae ENMT: external ear and nose normal, oropharynx normal Neck: normal visual inspection Respiratory: normal respiratory effort, lungs clear to auscultation Cardiovascular: Rate/Rhythm: regular rhythm and + tachycardic Heart Sounds: no murmur Extremities: no edema Gastrointestinal (Abdomen): Inspection/Auscultation: normal bowel sounds; no visible peristalsis and caput medusae absent hepatomegaly noted on exam Musculoskeletal: no cyanosis or clubbing, extremities motor strength 5/5 Skin: no rashes, warm and dry Neurologic: AAOx3, normal speech. PERRLA, EOMI, no nystagmus. Normal visual acuity bilaterally. Bilateral UE, LE, and face without sensory or motor deficits. Resting tremor of the hands. Psychiatric: Orientation: alert and oriented x 3 Eye Contact: good eye contact Speech: normal rate/rhythm/volume of speech Affect: + anxious affect Suicidal Thoughts: + reports suicidal thoughts Hallucinations: no auditory hallucinations, no visual hallucinations and no tactile hallucinations Principal Diagnosis Alcohol Pancreatitis with suicidal ideation and alcohol withdrawal Discharge Exam Constitutional WD/WN, vitals as above Respiratory normal respiratory effort, lungs clear to auscultation Cardiovascular RRR, no murmur, no edema Heart Sounds: normal S1 and normal S2 Gastrointestinal (Abdomen) normal bowel sounds, soft, nontender, no hepatosplenomegaly Inspection/Auscultation: abdomen normal to inspection and normal bowel sounds Skin no rashes, warm and dry Discharge Data Allergies Allergy/AdvReac Type Severity Reaction Status Date / Time theophylline AdvReac Intermediate VERTIGO Verified 06/10/21 20:50 Consultations 06/10/21 19:19 ED Decision to Admit Stat 06/10/21 19:32 Consult Psychiatry Routine Ordered Studies 06/10/21 18:18 CT Abd and Pelvis [CT abd pelvis IV con only] Stat CT head/brain wo con Stat 06/10/21 21:55 US liver Routine Hospital Course (1) Acute pancreatitis: 45 yo F Hx diabetes, alcohol use disorder, recurrent pancreatitis, hepatic steatosis and cirrhosis, asthma, anxiety, neutropenia, and thrombocytopenia admitted for acute alcohol pancreatitis and hepatitis, as well as acute treatment of alcohol withdrawal. 1) Expressed some suicidal ideation while acutely intoxicated. Reported that these feelings improved, and subsequently denied suicidal ideation during admission. She was seen by our psychiatry and counseling providers, and medication adjustments were recommended as below. If thoughts of self- harm/suicide recur, please reach out to either [facility] or a physician's office immediately, and 911 if these are unavailable. 2) Mirtazapine has been increased to 22.5 mg HS daily.. This should be further increased to a goal of 30 mg if well tolerated by outpatient providers. 3) Naltrexone has been restarted on discharge, please take naltrexone 50 mg PO daily and then increase to 100 mg daily after 1 week if this is well-tolerated. 4) Please repeat a CBC and CMP at follow-up appointment. Alcohol pancreatitis: Presented with nausea and decreased PO intake with significant increase in alcohol use over the last few weeks. Lipase elevated at 1187 with CTAP findings suggestive of acute pancreatitis; no evidence of necrotizing pancreatitis nor of pancreatic pseudocyst. Received banana bag in ER, IVF. Patient made NPO, advanced diet as tolerated. PRN zofran, dilaudid, tylenol. Hypokalemia hypophosphatemia repleted. By day of discharge no abd tenderness tolerating full diet. Alcohol withdrawal: History of significant alcohol use with several admissions in the past for acute withdrawal. Patient at time of interview no longer wants to use alcohol but feels powerless to her addiction. Nutrition consult placed, as patient is likely malnourished given several weeks increased alcohol intake and subsequent decreased food intake. AWSS withdrawal protocol initiated, PRN ativan, as well as Librium taper given that patient is having active withdrawal symptoms with very little interval between alcoholic beverages. Ordered IV folic acid and thiamine. 06/12 AWSS score 9 with hallucinations 06/13 AWSS score 6 did not require ativan overnight 06/14 AWSS score 3 did not require ativan overnight sustainable products marketing manager psychiatric liason consulted for assistance with inpatie nt/outpatient alcohol rehab options. Patient to follow with [facility]. Patient expressed limited enthusiasm to plan of alcohol cessation. Mirtazapine increased to 22.5mg daily, naltroxone restarted at 50mg daily, to be increased as above. Hepatic steatosis, alcohol hepatitis, cirrhosis: History of severe hepatic steatosis for several years, with development of cirrhosis on abdomen imaging in 10/2020. Most recent admission in 03/2021 for alcoholic hepatitis without evidence of hepatic encephalopathy. No evidence this admission of ascites on imaging. RUQ US: Hepatic steatosis and hepatomegaly. Probable cirrhosis. No gallstones or biliary ductal dilatation. Largely obscured pancreas. MELD score of 11 on admit, with Discriminant Function of 8.3, no indication for systemic steroid therapy. No evidence of encephalopathy on admit; AAO x3 with ammonia level of 35. Metabolic acidosis: On presentation with gapped metabolic acidosis secondary to alcohol acidosis. IV fluids ordered; suspect improvement in acidosis with IV fluids. Suicidal ideation: Presented to ER with suicidal ideation, though no active plan. Psych consulted. Patient will be evaluated by liaison. Patient found to be passively suicidal under alcohol influence, currently denies suicidal ideation, denies needed inpatient rehab, considering meeting with AA again. Meeting with Psychiatry liaison, plan to follow with [facility] for suicidal ideation and alcohol use disorder. Neutropenia, thrombocytopenia: History of, stable. Secondary to impaired platelet production, bone marrow suppression. No interventions at this time. DM1: A1c 6.1 on 04/10/21. Patient started on insulin. Beta-hydroxybuteric acid demonstrating ketoacidosis likely secondary to alcohol use (2) Asthma: (3) Suicidal ideation: (4) Alcohol abuse: (5) GERD (gastroesophageal reflux disease): (6) Diabetes: (7) Anxiety: (8) Cirrhosis: (9) Hepatic steatosis: (10) Splenomegaly: (11) Thrombocytopenia: (12) Leukocytopenia, unspecified: (13) Acidosis, metabolic: Total Time Total Time Spent Total Time Spent (In Minutes): see attending attestation Discharge Plan Discharge Items Patient Disposition: Home - Self-Care Reason For Visit: ALCOHOL PANCREATITIS, SUICIDAL IDEATION, ALCOHOL W Discharge Diagnosis: Alcohol Withdrawal Alcohol Induced Pancreatitis Activity: Per Instructions section Non-emergency contact: Primary Care Provider Call non-emergency contact if: you have any medication questions, your symptoms worsen, your pain is not controlled and your pain is worsening Follow-up/Referrals: [facility] [Primary Care Provider] - Diet: Regular Addtl Attending Provider Instructions: You are seen in the hospital for alcohol induced pancreatitis and acute alcohol withdrawal. You experienced confusion and withdrawal symptoms related to high alcohol use. You are treated with a Librium taper and medication to help manage withdrawal gradually improved. You had alcohol induced pancreatitis for which you are treated with pain medication and fluids, your pain gradually improved and your diet returned. It is critically important for you to remain abstinent from alcohol in the future. During admission it was noted that your blood counts were low, there were liver changes, you experience alcohol withdrawal symptoms related to alcohol. Alcohol withdrawal is also a potentially fatal process. Alcohol consumption is highly likely to reexacerbate or worsen your pancreatitis. Follow-up resources with [facility] was discussed with you during admission, please follow-up with them for additional care to help remain abstinent from alcohol. You had expressed some suicidal ideation while acutely intoxicated. Reported that these feelings improved, and subsequently denied suicidal ideation during admission. He was seen by our psychiatry and counseling providers, and medication adjustments were recommended as below. If thoughts of self- harm/suicide recur, please reach out to either [facility] or a physician's office immediately, and 911 if these are unavailable. Your mirtazapine has been increased to 22.5 mg daily at night as noted. This should be further increased to a goal of 30 mg if well tolerated by your outpatient providers. Your naltrexone has been restarted on discharge, please take naltrexone 50 mg by mouth daily and then increase to 100 mg daily after 1 week if this is well- tolerated. You were noted to have low blood cell counts and low platelet counts due to during admission likely due to toxic effects of alcohol on the bone marrow. You have also had liver changes related to alcohol. Please have your primary care provider repeat a CBC and CMP to recheck these levels at your follow-up appointment. Follow-up appointment is being scheduled for you with your primary care provider as noted above. You should be seen within 1 week. If you need to cancel or reschedule this appointment, please contact their office at the number above. If you develop any new or worsening symptoms including fever, chills, sweats, chest pain, chest pressure, difficulty breathing, uncontrolled nausea/vomiting, rash, wheezing, passing out or nearly passing out, bleeding, black/bloody bowel movements, or other new or concerning symptoms please call your primary care physician, or call 911 for re-evaluation in the emergency department if you are very concerned. Pending Studies at Discharge: No Stand-Alone Forms: My [facility] [employer] Smoking Cessation Medications and DC Order Prescriptions: New mirtazapine 15 mg Tablet 22.5 mg PO HS 30 Days Qty: 45 RF: 0 naltrexone 50 mg tablet 50 mg PO DAILY Qty: 30 RF: 0 Continued fluticasone propion-salmeterol [Advair Diskus] 250-50 mcg/dose blister with device 1 inh inhalation QAM RF: 0 albuterol sulfate [Ventolin HFA] 90 mcg/actuation Hfa Aerosol Inhaler 2 puff INHALATION Q6H PRN (Reason: Shortness Of Breath) RF: 0 multivitamin [Daily-Harris] Tablet 1 tab PO QAM Qty: 0 RF: 0 insulin asp prt-insulin aspart [Novolog Mix 70-30 U-100 Insuln] 100 unit/mL (70-30) solution 10 - 15 unit SUBCUT BID PRN (Reason: DEPENDS ON BSG PER PT.) RF: 0 omeprazole 20 mg Capsule,Delayed Release(Dr/Ec) 20 mg PO DAILY PRN (Reason: Acid Reflux) RF: 0 famotidine 20 mg Tablet 20 mg PO DAILY PRN (Reason: Gi Upset) RF: 0 melatonin 10 mg Tablet 10 mg PO HS PRN (Reason: Sleep) RF: 0 ascorbic acid (vitamin C) [Vitamin C] 500 mg Tablet Extended Release 500 mg PO DAILY RF: 0 vitamin B complex Tablet 1 tab PO DAILY RF: 0 Potassium Otc 1 tab PO BID RF: 0 Discontinued mirtazapine 15 mg Tablet 15 mg PO HS Qty: 30 RF: 0 Discharge Orders: Discharge Order (Routine); Ordered 06/15/21 Ordered By: Geovani Galvez Admission Data Admit Date/Time: 06/10/21 19:32 Attending Provider: Geovani Galvez Admit Provider: Dina Pack Primary Care Provider: [facility] Other Providers: Samuel Christensen ; Ying Escobar ; Ally Russell ; Natalya Kamara ; Geovani Obrien Other Interventions: Discharge Summary Assessment (RN) Last Done: 06/15/21 11:28 Supervising Physician Co-Signing Physician Notes Problems 45-year-old female with a history of severe alcohol abuse who presented with alcoholic pancreatitis and acute alcohol withdrawal. She was treated with IV fluids and pain control, and slow advancement of diet and had resolution of her pancreatitis symptoms during admission. She experienced acute alcohol withdrawal delirium and was treated with a Librium taper with breakthrough Ativan on JAMESON scoring. She required high amounts of Ativan for the first 12 nights, and then gradual improvement. Day prior to discharge she did not have overnight Ativan doses required, however she was extremely somnolent throughout the day with some tachycardia and was observed for an additional day. On morning of discharge patient was mentating normally, was not tremulous, and a regular heart rate, and was safe for discharge. She had completed a Librium taper. She denied suicidality at time of discharge. The impact of alcohol on her cytopenia, liver disease, and chronic proteins were reviewed with her. Reviewed the impact of alcohol on pancreatitis. Discussed that it is critically important to remain absent from alcohol in the future, and that any amount of alcohol may exacerbate or reflect her pancreatitis. Also discussed that alcohol withdrawal is a potentially fatal process each time she goes through it, and that her lab work is showing signs of synthetic dysfunction and bone marrow suppression due to her alcohol use. Patient expresses an understanding of this, and agrees to follow-up with [facility] appointment which has been scheduled. Additional follow-up to PCP. Repeat lab work as above. She will titration of her mirtazapine and naltrexone as outpatient as long as she continues to tolerate these well. Her mirtazapine dose was increased during admission as noted above. Discharge exam General: A&Ox3. NAD. Cooperative. HEENT: Atraumatic, normocephalic. Pulm: CTAB A&P. -wheezes, -rales, -rhonchi. Symmetrical chest rise. No increase work of breathing. No respiratory distress. Cardiac: RRR, -mrg. Radial pulses intact and symmetrical. Abdominal: Nontender, nondistended, soft. BS present. Total time spent preparing discharge day of discharge approximately 40 minutes including direct patient care, coordination of care, review of labs and images, documentation, patient counseling, and review of case with resident provider. Resident Activity Tracking Resident Involvement: Resident Care Provided Care Provided: Adult [facility]
--- NOTE | 2021-06-15 19:23 | Billing Data ---
Date of Service June 15, 2021 Coding Level of Care Code D/C DAY MANAGEMENT >30 MINS
== END 2021-06-15 12:15 | disposition home or self-care (01) | DRG 896 ==
LOC: ED 16:13 → EDINP 19:32 → SUATTDRO 19:32 → 1E 06-11 18:31

== ENCOUNTER 2023-06-30 09:29 | Inpatient (IN) ==
--- NOTE | 2023-06-30 10:18 | XRay Report ---
XR chest 1V not portable CLINICAL HISTORY: Chest pain, nonspecific TECHNIQUE: Single frontal radiograph of the chest was obtained. Comparison: Comparison is made to chest radiograph 05/29/2022 FINDINGS: No lines and tubes are seen. The cardiomediastinal silhouette is normal. The lungs are clear. No evid ence of pleural effusion or pneumothorax. IMPRESSION: No acute chest disease. ACT 112: Negative or not required by law. Electronically signed by: Sidney Maya M.D. 06/30/2023 10:17 AM
[2023-06-30 11:12] LABS: Basophils # (auto) 0.13 K/uL (0.00-0.20); Basophils % (auto) 1.1 %; Eosinophils # (auto) 0.04 K/uL (0.00-0.50); Eosinophils % (auto) 0.4 %; Hematocrit (blood only) 51.3 % (37.0-47.0); Hemoglobin 17.2 g/dl (12.0-16.0); Immature Granulocytes # (auto) 0.25 K/uL (0.01-0.20); Immature Granulocytes % (auto) 2.2 %; Lymphocytes # (auto) 1.58 K/uL (1.20-3.40); Lymphocytes % (auto) 13.8 %; Mean Corpuscular Hemoglobin 32.5 pg (25.0-34.0); Mean Corpuscular Hgb Conc 33.5 g/dL (32.0-36.0); Mean Corpuscular Volume 96.8 fL (80.0-100.0); Mean Platelet Volume 10.2 fL (9.4-12.4); Monocytes # (auto) 1.12 K/uL (0.11-0.59); Monocytes % (auto) 9.8 %; Neutrophils # (auto) 8.29 K/uL (1.40-6.50); Neutrophils % (auto) 72.7 %; Platelet Count 267 K/uL (130-400); RDW Coefficient of Variation 12.8 % (11.5-14.5); RDW Standard Deviation 46.1 fL (36.4-46.3); White Blood Count 11.41 K/ul (4.8-10.8)
[2023-06-30] MEDS ORDERED: LORazepam 1 MG/1 ML SYR ED Inj Use IV STA (11:42)
[2023-06-30] MEDS ORDERED: SODIUM CHLORIDE 0.9% 1,000 ML IV ONE ×2 (11:44→12:10)
[2023-06-30 11:45] LABS: Alanine Aminotransferase 226 U/L (7-52); Albumin Globulin Ratio 1.6 (0.9-2); Albumin Level 5.4 gm/dl (3.4-5.0); Alkaline Phosphatase 365 U/L (34-104); Anion Gap 32 (3-11); Aspartate Aminotransferase 313 U/L (13-39); BUN Creatinine Ratio 12.4 (10-20); Blood Urea Nitrogen 14 mg/dl (6-23); Calcium 10.6 mg/dl (8.6-10.3); Carbon Dioxide 4 mmol/L (21-32); Chloride 99 mmol/L (98-107); Est GFR (Non-African American) 57.8 ml/min; Globulin 3.4 gm/dl (2.5-4.0); Glucose 424 mg/dl (70-99(Fasting)); Sodium 135 mmol/L (136-145); Total Protein 8.8 gm/dl (6.0-8.3); Troponin I High Sensitivity 13.6 pg/ml (0-14)
[2023-06-30] MEDS ORDERED: STAT IV Infusion **Titration per Protocol STA (11:52)
[2023-06-30] MEDS ORDERED: DEXTROSE 50% 50 ML SYRINGE IV PRN (11:52)
[2023-06-30] MEDS ORDERED: GLUCOSE 10 TAB/TUBE PO PRN (11:52)
[2023-06-30] MEDS ORDERED: GLUCOSE 40% GEL 15 GM TUBE PO PRN (11:52)
[2023-06-30] MEDS ORDERED: DKA GOAL RANGE 150-250 mg/dl ONE (11:52)
[2023-06-30] MEDS ORDERED: GLUCAGON FOR INJ 1 MG VIAL SQ PRN (11:52)
[2023-06-30] MEDS ORDERED: CARBOHYDRATES FOR HYPOGLYCEMIA PO PRN (11:52)
--- NOTE | 2023-06-30 11:53 | Emergency Department Note ---
Impression & Plan DKA (diabetic ketoacidosis) ADMIT ED Provider Note HPI: History obtained from patient. The patient is a 47-year-old female with history of insulin-dependent diabetes, alcohol abuse, who presents emergency department with a chief complaint of shortness of breath. Patient states that she has felt increasingly short of breath for the past 3 days. Patient denies any fevers, states she does get a sensation of "heartburn" at times that she states she has had previously. On arrival here to the ED the patient is tachycardic at 122, she is slightly tachypneic on my initial evaluation but saturating well on room air. Patient is alert and oriented on arrival. ROS: - Per HPI Differential Diagnosis: Pulmonary embolism, anxiety attack, asthma exacerbation/COPD exacerbation, alcohol withdrawal, diabetic ketoacidosis, amongst other potential pathologies. *Outpatient medications and allergy history reviewed. 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 Lab work shows a leukocytosis of 11.4, hemoglobin is 17.2, platelet count is normal, CMP shows multiple abnormalities consistent with diabetic ketoacidosis. Serum bicarbonate level is reduced at 4, anion gap elevation at 32, blood glucose level is 424. Patient does admit to noncompliance with insulin regimen recently. There is a transaminitis that appears to be chronic in nature and likely related to alcoholic hepatitis/hepatic steatosis history. Patient denies any abdominal pain. Viral panel testing was obtained and is negative. Potassium is within normal limits. Troponin is negative x 1. EKG per my interpretation shows sinus tachycardia without any acute ischemic changes. Chest x-ray per my interpretation does not show any evidence of pneumonia. D-dimer test was obtained on my initial evaluation and was elevated. I suspect that the patient's tachypnea is more related to Kussmaul breathing from DKA, I have low suspicion for PE at this time, this was discussed with the hospitalist service and will plan for CT imaging to rule out PE when the patient is stabilized from the standpoint of acidosis from DKA. Patient was initiated on insulin drip, she was also initiated on a sodium bicarbonate drip and given an amp of sodium bicarbonate prior to drip being initiated given that ABG did show severe acidosis with pH less than 7.0. On my reassessment the patient remains hemodynamically stable with tachycardia but is otherwise alert and tachypnea is improving following the above interventions. I discussed the patient's presentation with the on-call hospitalist, Dr. Galvez, and he is in agreement for admission. Case was then discussed with the on-call transport rn, Dr. Arnold, who was made aware of the consultation. Patient was placed for admission in stable condition for further management in the ICU. Consultants/Discussions held with other healthcare providers: -Hospitalist, Dr. Galvez -Automatic Lathe Operator, Dr. Arnold Disposition discussion held by myself with: -Patient * CRITICAL CARE TIME: (56) minutes -Management of patient with diabetic ketoacidosis requiring initiation of insulin drip for stabilization, initiation of sodium bicarbonate drip for acidotic pH less than 7.0, time spent at the bedside, discussion with other physicians and arrangement of admission to the ICU Diagnosis: 1. Diabetic ketoacidosis, acute 2. Transaminitis, chronic 3. Noncompliance with insulin regimen 4. Leukocytosis, acute, nonspecific Disposition: Admission Alvin Degroot DO Emergency Medicine Past Med/Surg History Medical History (Updated 06/30/23 @ 15:54 by Alvin Degroot DO) Acute alcoholic pancreatitis Depression with suicidal ideation Suicidal ideation Alcoholic hepatitis Hypophosphatemia Hypomagnesemia Metabolic acidosis Thrush Alcoholic intoxication Thrombocytopenia Alcohol withdrawal Acute alcoholic hepatitis Diabetes mellitus type 1 Acidosis, metabolic Acute pancreatitis Electrolyte abnormality DVT prophylaxis Alcohol withdrawal Alcohol abuse Anxiety Asthma Surgical History History of dental surgery wisdom teeth History of esophagogastroduodenoscopy (EGD) Family History Father Prediabetes Grandfather (Paternal) Diabetes Mother Hypertension MVP (mitral valve prolapse) Social History Smoking Status: Never smoker Tobacco Type: Cigarettes Age Quit Using Tobacco: 39; packs per day: 1; Second Hand Exposure: No; Do You Dip or Chew Tobacco: No; Hx Alcohol Use: Yes Alcohol type: hard liquor Alcohol type Comment: 4 glasses wine daily Hx Substance Use: No Preferred Language: Irish Communication Ability: Effective Visual Impairment: No Limitations Warehouse Team Member Required: No Beliefs That Will Affect Care: None marital status: marital status details: Single parent Current Living Situation: Alone Current Living Situation Comment: daughter current occupational status: unemployed How many Children do You have: 1 Feels Safe at Home: Yes Childhood Exposure to Second-Hand Smoke: No Gender Identity: Female Assistive Devices: None Allergies Allergies Allergy/AdvReac Type Severity Reaction Status Date / Time theophylline AdvReac Intermediate VERTIGO Verified 06/10/21 20:50 Home Meds Home Medications Medication Instructions Recorded Confirmed fluticasone 250 mcg-salmeterol 50 1 inh inhalation AMPM 02/27/19 06/30/23 mcg/dose blistr powdr for inhalation (Advair Diskus) albuterol sulfate 90 mcg/actuation 2 puff inhalation UD PRN Shortness 07/23/19 06/30/23 aerosol inhaler (Ventolin HFA) Of Breath omeprazole 20 mg capsule,delayed 20 mg PO DAILY PRN Acid Reflux 11/10/20 06/30/23 release ascorbic acid (vitamin C) 500 mg 500 mg PO DAILY 04/05/21 06/30/23 tablet,extended release (Vitamin C ER) melatonin 10 mg tablet 10 mg PO HS PRN Sleep 04/05/21 06/30/23 Potassium Otc 1 tab PO BID 04/09/21 06/30/23 vitamin B complex 1 tab PO DAILY 04/09/21 06/30/23 buspirone 10 mg tablet 20 mg PO TID 04/22/22 06/30/23 mirtazapine 30 mg tablet 45 mg PO DAILY 04/22/22 06/30/23 alprazolam 0.25 mg tablet (Xanax) 0.5 mg PO TID PRN Anxiety 06/30/23 06/30/23 atorvastatin 20 mg tablet 20 mg PO DAILY 06/30/23 06/30/23 benzonatate 100 mg capsule 100 mg PO TID PRN Other 06/30/23 06/30/23 citalopram 10 mg tablet 10 mg PO DAILY 06/30/23 06/30/23 glycopyrrolate 1 mg tablet 1 mg PO TID PRN Sweating 06/30/23 06/30/23 insulin aspart 5 unit subcut TIDM 06/30/23 06/30/23 (niacinamide)(U-100) 100 unit/mL(3 mL) subcutaneous pen (Fiasp FlexTouch U-100 Insulin) insulin glargine-yfgn 100 unit/mL 35 unit subcut DAILY 06/30/23 06/30/23 subcutaneous solution (Semglee (insulin glargine-yfgn)) metformin 500 mg tablet,extended 2,000 mg PO HS 06/30/23 06/30/23 release 24 hr Previous Rx's Medication Instructions Recorded multivitamin (Daily-Harris tablet) 1 tab PO QAM #0 tabs 07/27/19 naltrexone 50 mg tablet 50 mg PO DAILY #30 tabs 06/15/21 lorazepam 1 mg tablet (Ativan) 1 mg PO Q6H PRN alcohol withdrawal 04/22/22 #20 tabs ondansetron 4 mg disintegrating 4 mg PO Q8H PRN nausea and 07/09/22 tablet vomiting #30 tabs Results & Data (ED) Vital Signs Vital Signs - 24 hr 06/30/23 09:36 06/30/23 09:44 06/30/23 12:16 Temperature 36.5 C Temperature Source Temporal Artery Scan Pulse Rate 122 H 125 H Pulse Rate [Left Apical] Respiratory Rate 22 Respiratory Effort / Characteristics Non-Labored Spontaneous Respiratory Depth Normal Respiratory Pattern Regular Blood Pressure 129/80 Blood Pressure [Right Arm] Blood Pressure Mean 96 Blood Pressure Mean [Right Arm] Blood Pressure Position Sitting Pulse Oximetry 99 Oxygen Delivery Method Room Air Room Air Sepsis Recent Fever Within 48 Hours No Sepsis New/Unexplained Change in Mental Status N/A Sepsis Action Taken by Nursing No Action Required 06/30/23 12:37 06/30/23 13:00 06/30/23 14:30 Temperature Temperature Source Pulse Rate 127 H 125 H 135 H Pulse Rate [Left Apical] Respiratory Rate 31 H 33 H 39 H Respiratory Effort / Characteristics Respiratory Depth Respiratory Pattern Blood Pressure 156/102 H 152/81 H Blood Pressure [Right Arm] Blood Pressure Mean 120 104 Blood Pressure Mean [Right Arm] Blood Pressure Position Pulse Oximetry 100 100 Oxygen Delivery Method Room Air Room Air Sepsis Recent Fever Within 48 Hours Sepsis New/Unexplained Change in Mental Status Sepsis Action Taken by Nursing 06/30/23 15:10 Temperature Temperature Source Pulse Rate Pulse Rate [Left Apical] 130 H Respiratory Rate 35 H Respiratory Effort / Characteristics Short of Breath Respiratory Depth Respiratory Pattern Blood Pressure Blood Pressure [Right Arm] 126/78 Blood Pressure Mean Blood Pressure Mean [Right Arm] 94 Blood Pressure Position Pulse Oximetry 95 Oxygen Delivery Method Room Air Sepsis Recent Fever Within 48 Hours Sepsis New/Unexplained Change in Mental Status Sepsis Action Taken by Nursing Laboratory Data 06/30/23 10:40 06/30/23 10:40 Lab Results 06/30/23 06/30/23 06/30/23 Range/Units 10:40 11:25 12:00 WBC 11.41 H (4.8-10.8) K/ul RBC 5.30 (4.20-5.40) M/uL Hgb 17.2 H (12.0-16.0) g/dl Hct 51.3 H (37.0-47.0) % MCV 96.8 (80.0-100.0) fL MCH 32.5 (25.0-34.0) pg MCHC 33.5 (32.0-36.0) g/dL RDW Std Deviation 46.1 (36.4-46.3) fL RDW Coeff of Suzanne 12.8 (11.5-14.5) % Plt Count 267 (130-400) K/uL MPV 10.2 (9.4-12.4) fL Immature Gran % (Auto) 2.2 % Neut % (Auto) 72.7 % Lymph % (Auto) 13.8 % [place] % (Auto) 9.8 % Eos % (Auto) 0.4 % Baso % (Auto) 1.1 % Neut # (Auto) 8.29 H (1.40-6.50) K/uL Lymph # (Auto) 1.58 (1.20-3.40) K/uL [place] # (Auto) 1.12 H (0.11-0.59) K/uL Eos # (Auto) 0.04 (0.00-0.50) K/uL Baso # (Auto) 0.13 (0.00-0.20) K/uL Immature Gran # (Auto) 0.25 H (0.01-0.20) K/uL PT 12.4 H (9.0-12.0) Seconds INR 1.1 (0.9-1.1) APTT 39 H (21-31) Seconds PTT Ratio 1.4 D-Dimer 890 H* (0-500) ug/L FEU ABG pH (7.35-7.45) ABG pCO2 (35-46) mmHg ABG pO2 (80-95) mmHg ABG HCO3 ABG O2 Saturation (90-95) % ABG Base Excess Raimundo Test (Pos) Oxygen Given Sodium 135 L (136-145) mmol/L Potassium 4.0 (3.5-5.1) mmol/L Chloride 99 (98-107) mmol/L Carbon Dioxide 4 L* (21-32) mmol/L Anion Gap 32 H (3-11) BUN 14 (6-23) mg/dl Creatinine 1.13 (0.6-1.2) mg/dl Est Cr Clr Drug Dosing Not Reportable Est GFR ( Amer) 67.0 ml/min Est GFR (Non-Af Amer) 57.8 ml/min BUN/Creatinine Ratio 12.4 (10-20) Glucose 424 H* (70-99(Fasting)) mg/dl POC Glucose (70-99) mg/dl Estimat Average Glucose mg/dl Hemoglobin A1c (4.5-5.6) % Calcium 10.6 H (8.6-10.3) mg/dl Phosphorus (2.5-4.9) mg/dl Magnesium (1.7-2.4) mg/dl Total Bilirubin 1.0 (0.2-1.0) mg/dl AST 313 H (13-39) U/L ALT 226 H (7-52) U/L Alkaline Phosphatase 365 H (34-104) U/L Troponin I High Sens 13.6 (0-14) pg/ml Total Protein 8.8 H (6.0-8.3) gm/dl Albumin 5.4 H (3.4-5.0) gm/dl Globulin 3.4 (2.5-4.0) gm/dl Albumin/Globulin Ratio 1.6 (0.9-2) SARS-CoV-2 (PCR) NEGATIVE (Negative) Influenza Type A (PCR) Negative (Neg) Influenza Type B (PCR) Negative (Neg) RSV (RT-PCR) Negative (Neg) 06/30/23 06/30/23 06/30/23 Range/Units 12:11 13:46 14:49 WBC (4.8-10.8) K/ul RBC (4.20-5.40) M/uL Hgb (12.0-16.0) g/dl Hct (37.0-47.0) % MCV (80.0-100.0) fL MCH (25.0-34.0) pg MCHC (32.0-36.0) g/dL RDW Std Deviation (36.4-46.3) fL RDW Coeff of Suzanne (11.5-14.5) % Plt Count (130-400) K/uL MPV (9.4-12.4) fL Immature Gran % (Auto) % Neut % (Auto) % Lymph % (Auto) % [place] % (Auto) % Eos % (Auto) % Baso % (Auto) % Neut # (Auto) (1.40-6.50) K/uL Lymph # (Auto) (1.20-3.40) K/uL [place] # (Auto) (0.11-0.59) K/uL Eos # (Auto) (0.00-0.50) K/uL Baso # (Auto) (0.00-0.20) K/uL Immature Gran # (Auto) (0.01-0.20) K/uL PT (9.0-12.0) Seconds INR (0.9-1.1) APTT (21-31) Seconds PTT Ratio D-Dimer (0-500) ug/L FEU ABG pH < 7.00 L* (7.35-7.45) ABG pCO2 11 L (35-46) mmHg ABG pO2 142 H (80-95) mmHg ABG HCO3 TNP ABG O2 Saturation 99.1 H (90-95) % ABG Base Excess TNP Raimundo Test Pos (Pos) Oxygen Given ROOM AIR Sodium (136-145) mmol/L Potassium (3.5-5.1) mmol/L Chloride (98-107) mmol/L Carbon Dioxide (21-32) mmol/L Anion Gap (3-11) BUN (6-23) mg/dl Creatinine (0.6-1.2) mg/dl Est Cr Clr Drug Dosing Est GFR ( Amer) ml/min Est GFR (Non-Af Amer) ml/min BUN/Creatinine Ratio (10-20) Glucose (70-99(Fasting)) mg/dl POC Glucose 279 H 213 H (70-99) mg/dl Estimat Average Glucose 278 mg/dl Hemoglobin A1c 11.3 H (4.5-5.6) % Calcium (8.6-10.3) mg/dl Phosphorus 5.6 H (2.5-4.9) mg/dl Magnesium 2.7 H (1.7-2.4) mg/dl Total Bilirubin (0.2-1.0) mg/dl AST (13-39) U/L ALT (7-52) U/L Alkaline Phosphatase (34-104) U/L Troponin I High Sens (0-14) pg/ml Total Protein (6.0-8.3) gm/dl Albumin (3.4-5.0) gm/dl Globulin (2.5-4.0) gm/dl Albumin/Globulin Ratio (0.9-2) SARS-CoV-2 (PCR) (Negative) Influenza Type A (PCR) (Neg) Influenza Type B (PCR) (Neg) RSV (RT-PCR) (Neg) Administered Medications Insulin Human Regular 250 (units/ Sodium Chloride) 250 mls @ 5.6 mls/hr IV .Q24H [facility]; Protocol Stop: 07/30/23 11:59 Last Titration: 06/30/23 14:57 Dose: 5.6 units/hr, 5.6 mls/hr Documented By: JANUSZ Co-signed By: [facility] [place] Admin: 06/30/23 12:28 Dose: 7 units/hr, 7 mls/hr Documented By: JANUSZ Co-signed By: SKINNY Lactated Ringer's (Lr) 2,000 mls @ 999 mls/hr IV .Q2H1M ONE Stop: 06/30/23 16:09 Last Admin: 06/30/23 15:00 Dose: 999 mls/hr Documented By: JANUSZ Dextrose (D5w) 1,000 mls @ 80 mls/hr IV .[id number] ARMANI Stop: 06/30/23 16:09 Last Admin: 06/30/23 15:12 Dose: 80 mls/hr Documented By: OLAMIDE Insulin Aspart (Insulin Aspart Per Unit Charge) 0 units SC Q6 ARMANI Stop: 07/30/23 11:59 Last Admin: 06/30/23 12:31 Dose: Not Given Documented By: JANUSZ Discontinued Medications Sodium Chloride (Nss) 1,000 mls @ 999 mls/hr IV .Q1H1M ONE Stop: 06/30/23 12:44 Last Infusion: 06/30/23 14:15 Dose: Infused Documented By: [facility] [place] Admin: 06/30/23 12:16 Dose: 999 mls/hr Documented By: JANUSZ Sodium Chloride (Nss) 1,000 mls @ 999 mls/hr IV .Q1H1M ONE Stop: 06/30/23 13:10 Last Infusion: 06/30/23 14:16 Dose: Infused Documented By: [facility] [place] Admin: 06/30/23 13:17 Dose: 999 mls/hr Documented By: NANCY Sodium Bicarbonate 150 meq/ (Sterile Water) 1,150 mls @ 150 mls/hr IV .Q7H40M [facility] Stop: 07/30/23 12:44 Last Admin: 06/30/23 13:19 Dose: 150 mls/hr Documented By: NANCY Insulin Human Regular (Novolin-R Bolus From Bag) 7 units IV ONE ONE Stop: 06/30/23 12:01 Last Admin: 06/30/23 12:28 Dose: 7 units Documented By: JANUSZ Co-signed By: SKINNY Sodium Bicarbonate (Sodium Bicarb 8.4% Inj 50 Meq/50 Ml Syr) 50 meq IV NOW STA Stop: 06/30/23 12:11 Last Admin: 06/30/23 13:15 Dose: 50 meq Documented By: NANCY Imaging Data Radiologist's Impression: Chest X-Ray 06/30/23 09:45 XR chest 1V not portable CLINICAL HISTORY: Chest pain, nonspecific TECHNIQUE: Single frontal radiograph of the chest was obtained. Comparison: Comparison is made to chest radiograph 05/29/2022 FINDINGS: No lines and tubes are seen. The cardiomediastinal silhouette is normal. The lungs are clear. No evidence of pleural effusion or pneumothorax. IMPRESSION: No acute chest disease. ACT 112: Negative or not required by law. Electronically signed by: Sidney Maya M.D. 06/30/2023 10:17 AM Discharge Plan Visit Data Chief Complaint: Shortness of Breath/Dyspnea ED Provider: Alvin Degroot Discharge Problem: DKA (diabetic ketoacidosis) Forms Stand Alone Forms: [facility] Prescriptions Prescriptions: No Action fluticasone propion-salmeterol [Advair Diskus] 250-50 mcg/dose blister with device 1 inh inhalation AMPM albuterol sulfate [Ventolin HFA] 90 mcg/actuation Hfa Aerosol Inhaler 2 puff INHALATION UD PRN (Reason: Shortness Of Breath) Rx Instructions: 2 am, 2 noon, 2 pm, 2 bedtime per pharmacy. Is on hold at pharmacy multivitamin [Daily-Harris] Tablet 1 tab PO QAM Qty: 0 0RF omeprazole 20 mg Capsule,Delayed Release(Dr/Ec) 20 mg PO DAILY PRN (Reason: Acid Reflux) lorazepam [Ativan] 1 mg tablet 1 mg PO Q6H PRN (Reason: alcohol withdrawal) Qty: 20 0RF mirtazapine 30 mg tablet 45 mg PO DAILY buspirone 10 mg tablet 20 mg PO TID ondansetron 4 mg tablet,disintegrating 4 mg PO Q8H PRN (Reason: nausea and vomiting) Qty: 30 0RF atorvastatin 20 mg tablet 20 mg PO DAILY Fiasp FlexTouch U-100 Insulin 100 unit/mL (3 mL) insulin pen 5 unit SUBCUT TIDM insulin glargine-yfgn [Semglee(insulin glargine-yfgn)] 100 unit/mL solution 35 unit SUBCUT DAILY glycopyrrolate 1 mg tablet 1 mg PO TID PRN (Reason: Sweating) citalopram 10 mg tablet 10 mg PO DAILY benzonatate 100 mg capsule 100 mg PO TID PRN (Reason: Other) metformin 500 mg tablet extended release 24 hr 2,000 mg PO HS alprazolam [Xanax] 0.25 mg tablet 0.5 mg PO TID PRN (Reason: Anxiety) melatonin 10 mg Tablet 10 mg PO HS PRN (Reason: Sleep) ascorbic acid (vitamin C) [Vitamin C] 500 mg Tablet Extended Release 500 mg PO DAILY vitamin B complex Tablet 1 tab PO DAILY Potassium Otc 1 tab PO BID naltrexone 50 mg tablet 50 mg PO DAILY Qty: 30 0RF Rx Instructions: filled jun 2022 50mg daily x1 week, then increase to 100mg daily if tolerating well Referrals Referrals: [facility] [Outside Practitioners] - Discharge Problem: DKA (diabetic ketoacidosis) Qualifiers: Diabetes mellitus complication detail: without coma
[2023-06-30] MEDS ORDERED: NovoLIN-R BOLUS FROM BAG IV ONE (12:00)
--- OUTSIDE RECORDS SUMMARY | 2023-06-30 12:02 | External Medical Summary | Summary of Care ---
Author Name Unknown Organization [facility] Address [address] [place] [address] Phone [phone] Care Team Providers Care House Fellow Name Role Phone Krystin Graves MD Primary Care Provid er Reason for Visit * Reason Comments Dosage Adjustment Via Phone (anticoag Cl inic) Diabetes Encounter Details Date Type Department Care Team (Late st Contact Info) Description 05/08/2023 2:30 PM [facility] Telemedicine Pharmacy, [facility] [address] [place] [address] Pharmacist1, [facility] [address] [place] [address] DM type 2, not at goal (HCC)* Allergies Active Allergy Reactions Criticality Noted Date Comments Theophylline 04/30/2002 anxiety Theophylline Sodium Glycinate 2004 nervous documented as of this encounter (statuses as of 05/08/2023) Medications Medication Sig Dispensed Refills Start Date End Date Status Multiple Vitamins-Minerals (MULTIVITAMIN ADULT) TABS Take by mouth. 0 Active Multivitamin Adult Oral Tablet 1 Tab. 0 07/27/2019 Active Fluticasone Propionate 50 MCG/ACT Nasal SuspensionIndicatio ns:Suspected COVID-19 virus infection,Viral URI Administer 2 Sprays into each nostril daily as needed for Allergies, Congestion or Other (Eustacean tube dysfunction). 1 g 1 07/31/2020 Active busPIRone HCl 10 MG Oral Tablet (Buspar) Take 1 Tablet by mouth 3 times a day as needed for Anxiety. 0 10/08/2022 Active Naltrexone HCl 50 MG Oral Tablet (Revia) Take 1 Tablet by mouth daily. 90 Tablet 3 10/21/2022 Active Fluticasone-Salmete rol 250-50 MCG/ACT Inhalation Aerosol Powder Breath Activated (Advair Diskus)Indications: Moderate persistent asthma without complication Inhale 1 Puff by mouth in the morning and 1 Puff before bedtime. 3 Each 3 12/20/2022 Active Glycopyrrolate 1 MG Oral Tablet (Robinul)Indication s:Focal hyperhidrosis Take 1 Tablet by mouth 3 times a day as needed (sweating). 30 Tablet 1 02/11/2023 Active Albuterol Sulfate HFA 108 (90 Base) MCG/ACT Inhalation Aerosol SolutionIndications :Moderate persistent asthma without complication Inhale 2 Puffs by mouth in the morning and 2 Puffs at noon and 2 Puffs in the evening and 2 Puffs before bedtime. Inhale 2 Puffs by mouth 4 times a day.. 18 g 5 02/11/2023 Active Atorvastatin Calcium 20 MG Oral Tablet (Lipitor)Indication s:Dyslipidemia, goal LDL below 70 Take 1 Tablet by mouth daily. 90 Tablet 3 02/11/2023 Active Nirmatrelvir&Ritona vir 150/100 10 x 150 MG & 10 x 100MG Oral Tablet Therapy Pack (Paxlovid (150/100))Indicatio ns:Acute bronchitis due to COVID-19 virus Take 1 pink tablet of Nirmatrelvir and 1 white tablet of Ritonavir two times a day by mouth. 20 Tablet 0 03/27/2023 Active Benzonatate 100 MG Oral Capsule (Tessalon Perles)Indications: COVID-19 virus infection Take 1 Capsule by mouth 3 times a day as needed for Cough. Do not cut, crush, or chew. 50 Capsule 0 04/03/2023 Active Mirtazapine 45 MG Oral Tablet (Remeron)Indication s:Panic attack Take 1 Tablet by mouth at bedtime. 90 Tablet 1 04/08/2023 Active LORazepam 0.5 MG Oral Tablet (Ativan)Indications :Panic attack Take 1 Tablet by mouth 3 times a day as needed for Anxiety. 15 Tablet 0 04/11/2023 Active FreeStyle [place] Lite w/Device KitIndications:DM type 2, not at goal (HCC) Use to check sugars daily. E 11.9 1 Kit 0 04/16/2023 Active Fiasp FlexTouch 100 UNIT/ML Subcutaneous Solution Pen-injector (Insulin Aspart (w/Niacinamide))Ind ications:DM type 2, not at goal (HCC) Inject 5 units under the skin before breakfast, lunch, and dinner. Replaces 70/30 insulin. 15 mL 0 04/24/2023 Active Insulin Glargine-yfgn 100 UNIT/ML Subcutaneous Solution (Semglee (yfgn))Indications: DM type 2, not at goal (HCC) Inject 35 units under the skin once daily. Replaces 70/30 insulin. 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 . documented as of this encounter (statuses as of 05/08/2023) Resolved Problems Problem Noted Date Diagnosed Date Resolved Date Disorder of electrolytes 10/21/202206/2022 Gastric reflux 10/21/2022 10/21/2022 Problem related to discharge planning 10/21/2022 10/21/2022 Depression 10/21/2022 10/21/2022 Coffee ground emesis 10/21/2022 023 Alcoholic hepatitis 10/21/2022 10/22/19 Acute upper gastrointestinal hemorrhage 10/21/2022 10/21/2022 Acute renal failure 10/21/2022 10/22/19 23 Acute pancreatitis 10/21/2022 3 Cirrhosis of liver 09/11/2022 3 Acute kidney injury 09/04/2020 10/22/19 23 Ascites due to alcoholic hepatitis 08/31/2020 10/21/2022 Alcohol-induced acute pancre atitis without infection or necrosis 08/31/2020 10/21/2022 Alcoholic cirrhosis of liver with ascites 08/31/2020 10/21/2022 Thrombocytopenia 08/31/2020 10/21/2022 Jaundice 08/31/2020 10/21/2022 Coagulopathy 08/31/2020 10/21/2022 Alcoholic intoxication with complication 08/31/2020 10/21/2022 Alcohol withdrawal syndrome 08/31/2020 10/21/2022 Alcohol use disorder, moderate, dependence 05/13/2019 10/21/2022 Alcohol dependence, PCP tx 03/12/2019 1 08/01/2018 Obstructive lung disease 06/19/201806/2022 Normal , first 08/31/200205/24 Asthma with severity to be determined 04/30/2002 08/21/2012 Overview: ICD-10 update of inactive term Anxiety 12/09/2018 Asthma with severity to be determined 03/19/2018 Overview: hospitalized for 2 days documented as of this encounter (statuses as of 05/08/2023) Immunizations Name Administration Dates Next Due COVID-19 mRNA, LNP-s, No Pre serve, 2-Dose Series (Jounce) 04/17/2021,08/22/2020 Covid-19, Mrna, Lnp-s, Pf, B ivalent, 30 Mcg, IM, 12 yrs and above (Jounce) 03/20/2022,09/25/2021 Hepatitis B, 20+ yrs 03/05/2021 Pneumococcal Conjugate Vacci ne, 20-valent ([id number]) 02/20/2023 Pneumococcal Polysaccharide PPV23 (Pneumovax) 03/19/2018 SEASONAL INFLUENZA, PF, 6 M & Above, IM , (FLULAVAL or FLUZONE) 03/13/2020,04/22/2019,03/19/2018 Seasonal Influenza Virus Vac cine, Unspecified Formulation 04/22/2019,03/19/2018,04/07/2017,03/15,03/31/2013,05/04/2012,04/30/2006 ,05/08/2005,05/11/2003,05/05/2002 Seasonal Influenza, Quadrivalent, ID 04/07/2017 Seasonal Influenza, Quadriva lent, No Preserve, IM 04/06/2015 Seasonal Influenza, Split, I IV3, With Preserve, Inj 03/15/2014,03/31/2013,05/04/2012,04/30 TD - Tetanus/Diptheria (ADULT) 10/09/2005 TD, Preservative Free 10/09/2005 TDAP (age 10 and older)(Boostrix) 08/31/2013 documented as of this encounter Social History Tobacco Use Types Packs/Day Years Used Date Smoking Tobacco: Former Cigarettes 1 2 Q uit: 08/23/1996 Passive Smoke Exposure: Never Smokeless Tobacco: Never Alcohol Use Standard Drinks/Week Comments Yes 0 (1 standard drink = 0.6 oz pur e alcohol) depends, can be heavy PHQ-2 Answer Date Recorded PHQ-2 Score 5 08/03/2019 Hunger Vital Sign Answer Date Recorded Within the past 12 months, y ou worried that your food would run out before you got the money to buy more. Never true 01/04/20 23 Within the past 12 months, t he food you bought just didn't last and you didn't have money to get more. Never true 01/03/2023 Sex and Gender Information Value Date Recorded Sex Assigned at Female 10/21/2022 8:14 AM EDT Gender Identity Female 10/21/2022 8:14 AM EDT Sexual Orientation Straight 10/21/2022 8: 14 AM EDT Job Start Date Occupation Industry Not on file Not on file Not on file documented as of this encounter Progress Notes * Devika Regan, [facility] - 05/07/2023 8:30 PM EST Images from the original note were not included. Patient location: HOME. I was in a hospital or clinic location. After connecting through televideo,patient was verified with two unique identifiers. Patient (or authorized legal payroll representative) was then informed that this was a Telemedicine visit and being conducted confidentially over secure lines. Methods to assure confidentiality were taken. Patient acknowledged consent and understanding of pr ivacy and security of the Telemedicine visit. The patient agreed to participate. Medication Therapy [facility] - Diabetes Management Progress Note Marcus Avelar, identified by name and date of , is a 47 year old female being seen for diabetesmanagement/education. Patient presents for return diabetic visit. DIABETES: Current diabetic medications: DISCONTINUE Novolin 70/30- 28 units in AM; 28 units in PM START Semglee 35 units once daily START Fiasp 5 units before breakfast, lunch, and dinner. Medication Injection Site: Abdomen Lifestyle: Diet: unchanged Glucose Review/SMBG: Per memory: Fasting BS this mornin Average: 290-315 April 27 to May 03: Hypoglycemia: Does your blood sugar go below 70 mg/dL? No Hyperglycemia symptoms present: polydipsia Recent Labs Units 08/02/22 0000 HEMOGLOBIN, [id number] LAB <5.7% 10.3* Recent Labs Units 08/02/22 0000 EGFR-OUTSIDE LAB ML/MIN 86 CREATININE-OUTSIDE LAB MG/DL 0.85 HYPERTENSION: Patient on ACEi/ARB: no, not indicated based on UACR or BP BP Readings from Last 3 Encounters: 02/11/23 124/82 01/03/23 110/70 10/21/22 110/64 Blood pressure at goal: yes HYPERLIPIDEMIA: Patient is taking moderate or high intensity statin: yes HEALTH MAINTENANCE REVIEW: Health Maintenance Due Topic Date Due Depression Screening 08/03/2020 Colorectal Cancer Screening Never done Hepatitis B (2 of 3 - 19+ 3-dose series) 04/02/2021 HbA1c 01/30/2023 Influenza Vaccine (FLU shot) (1) 02/21/2023 COVID-19 Vaccine (2022- season) 2023 Diabetic Eye Exam 02/23/2023 ASSESSMENT & PLAN: No diagnosis found. Considerations: - hx of acute pancreatitis- avoiding GLPs at this time - jardiance caused vaginitis - unable to tolerate metformin due to N/V even at very lowest doses BG Readings - Blood sugars uncontrolled. Pt not currently using Beth due to no sensors at the moment. Pt states sensors not adhesive. Informed pt can purchase skin tac for better adhesiveness. Also informed pt can call robotics systems engineer for replacement of sensors. Pt currently using fingerstick. BS running in high 200s-300s on average according to pt. Medications - Reviewed current regimen, patient is adherent to regimen. Pt did not obtain basal/bolus from pharmacy. Rx is ready at pharmacy. 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 Informed pt to start basal/bolus dosing as discussed in previous visits: Semglee 35 units once daily and increase by 2 units every 3 days until BS <200 Fiasp 5 units before breakfast, lunch, and dinner Would like to follow pt closely with new basal/bolus regimen. Pt requested to be seen after . Informed pt will monitor beth and call or MyChart pt if any insulin adjustments need to be made prior to follow up. Pt agreeable to plan. Diet, Exercise, Lifestyle - No significant lifestyle changes since last visit. Patient is agreeable to Beth daily. Patient aware to contact clinic if any hypoglycemia before next visit. MEDICATION CHANGES: Diabetic Medications: DISCONTINUE Novolin 70/30- 28 units in AM; 28 units in PM START Semglee 35 units once daily and increase by 2 units every 3 days until BS <200 START Fiasp 5 units before breakfast, lunch, and dinner. HEALTH MAINTENANCE INTERVENTIONS: Labs: Ordered & Scheduled: HgA1c Immunizations: eligible for flu and covid vaccine Foot Exam: Up to Date Eye Exam: due Annual Wellness Visit: N/A FOLLOW UP: Return to clinic in 2 weeks 05/22/2023 Devika Regan RPh Clinical Pharmacist - Search Engine Optimizer Medication Therapy Management Clinic 05/07/2023, 8:31 PM documented in this encounter Plan of Treatment Upcoming Encounters Date Type Department Care Team (Latest Contact Info) Description 05/22/2023 1:30 PM EST Telemedicine Pharmacy, [facility] [address] [place] [address] Pharmacist1, [facility] [address] [place] [address] 06/10/2023 8:30 AM EST Hospital Encounter ENDO [facility], Endoscopy Room [facility] [address] [place] [phone] Angelo Rogers MD [address] [place] [id number] 06/10/2023 8:30 AM EST - 06/10/2023 9:00 AM EST Surgery ENDO [facility], Endoscopy Room [facility] [address] [place] [phone] Angelo Rogers MD [address] [place] [phone] COLONOSCOPY FLEXIBLE PROXIMAL DIAGNOSTIC 07/14/2023 1:40 PM EST Office Visit [facility] [address] [place] [facility] [place] [id number] Krystin Graves MD [address] [place] [address] Scheduled Procedures Name Priority Associated Diagnoses Date/Ti me COLONOSCOPY FLEXIBLE PROXIMAL DIAGNOSTIC Special screening for malignant neoplasms, colon 06/10/2023 8:30 AM EST Health Maintenance Due Date Last Done Comments Depression Screening 08/03/2020 08/03/2019, 11/01/2014 (Discussed) Cologuard 11/18/2020 Colonoscopy 11/18/2020 Colorectal Cancer Screening 11/18/2020 Fecal Occult Blood Test 11/18/2020 Sigmoidoscopy 11/18/2020 Hepatitis B (2 of 3 - 19+ 3-dose series) 04/02/2021 03/05/2021 HbA1c 01/30/2023 08/02/2022, 08/21, 05/27/2020, Additional history exists COVID-19 Vaccine ( season) 2023 03/20/2022, 09/25/2021, 04/17/2021, Additional history exists Influenza Vaccine (FLU shot) (#1) 2023 03/13/2020, 04/22/2019, 04/22/2019, Additional history exists Diabetic Eye Exam 02/23/2023 02/23/2022 GFR 08/02/2023 08/02/2022, 10/23, 09/11/2020, Additional history exists DTaP,Tdap,and Td Vaccines (2 - Td or Tdap) 09/01/2023 08/31/2013, 10/09/2005, 10/09/2005, Additional history exists Albumin/Creatinine Ratio 10/22/2023 10/21/2022 Diabetic Foot Exam 10/22/2023 10/21/2022, 06/14/2020 Mammogram 01/14/2024 01/13/2023, 01/22, 10/25/2016, Additional history exists Pap Smear 01/03/2026 01/03/2023, 09/2016, 09/24/2016, Additional history exists Lipid Panel 08/02/2027 08/02/2022, 10/10/2005 Cervical Cancer Screening 01/04/2028 HPV/Co-Test 01/04/2028 01/03/2023 Pneumococcal Vaccine: Pediatrics (0 to 5 Years) and At-Risk Patients (6 to 64 Years) Completed 02/20/2023, 03/19/2018 GARDASIL-HPV IMMUNIZATION SERIES Aged Out No longer eligible based on patient's age to complete this topic MENINGOCOCCAL (MENACTRA/MENVEO) Aged Out No longer eligible based on patient's age to complete this topic documented as of this encounter Medical Devices Not on filedocumented as of this encounter Visit Diagnoses Diagnosis DM type 2, not at goal (HCC)- Primary Type II or unspecified type diabetes mellitus without mention of complication, not stated as uncontrolled Special screening for malignant neoplasms, colon documented in this encounter Care Teams House Fellow Relationship Specialty Start Date End Date Krystin Graves MD [address] [place] [address] PCP - General Family Medicine 10/21/22 documented as of this encounter
--- OUTSIDE RECORDS SUMMARY | 2023-06-30 12:02 | External Medical Summary | Summary of Care ---
Author Name Unknown Organization [facility] Address [address] [place] [address] Phone [phone] Care Team Providers Care Trailer Tank Truck Driver Name Role Phone Krystin Graves MD Primary Care Provid er Encounter Details Date Type Department Care Team (Late st Contact Info) Description 06/30/2023 Orders Only Outcomes Research Department [address] [place] [address] Heide Galicia CHRA MyCode Research Other*[id number] Allergies Active Allergy Reactions Criticality Noted Date Comments Theophylline 04/30/2002 anxiety Theophylline Sodium Glycinate 2004 nervous documented as of this encounter (statuses as of 06/30/2023) Medications Medication Sig Dispensed Refills Start Date [...] at bedtime. 90 Tablet 1 04/08/2023 Active FreeStyle [place] Lite w/Device KitIndications:DM type 2, not at goal ([facility]) Use to check sugars daily. E 11.9 1 Kit 0 04/16/2023 Active Fiasp FlexTouch 100 UNIT/ML Subcutaneous Solution Pen-injector (Insulin Aspart (w/Niacinamide))Ind ications:DM type 2, not at goal ([facility]) Inject 5 units under the skin before [...] (Disposable))Indica tions:DM type 2, not at goal (HCC) Please use with Semglee insulin once daily E11.9 100 Each 3 04/24/2023 Active BD Pen Needle Gertrude U/F 32G X 4 MM (Insulin Pen Needle)Indications: DM type 2, not at goal (HCC) Use with Fiasp insulin three times daily E11.9 300 Each 3 04/24/2023 Active LORazepam 0.5 MG Oral Tablet (Ativan)Indications :Panic attack Take 1 Tablet by mouth 3 times a day as needed for Anxiety. 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 . documented as of this encounter (statuses as of 06/30/2023) Resolved Problems Problem Noted Date Diagnosed Date Resolved Date Disorder of electrolytes 10/21/202206/2022 Gastric reflux 10/21/2022 10/21/2022 Problem related to discharge planning 10/21/2022 10/21/2022 Depression 10/21/2022 10/21/2022 Coffee ground emesis 10/21/2022 023 Alcoholic hepatitis 10/21/2022 10/22/19 23 Acute upper gastrointestinal hemorrhage 10/21/2022 10/21/2022 Acute renal failure 10/21/2022 10/22/19 23 Acute pancreatitis 10/21/2022 Cirrhosis of liver 09/11/2022 Acute kidney injury 09/04/2020 10/22/19 Ascites due to alcoholic hepatitis 08/31/2020 10/21/2022 [...] as of this encounter (statuses as of 06/30/2023) Immunizations Name Administration Dates Next Due COVID-19 mRNA, LNP-s, No Pre serve, 2-Dose Series (Efficient Cloud) 04/17/2021,08/22/2020 Covid-19, Mrna, Lnp-s, Pf, B ivalent, 30 Mcg, IM, 12 yrs and above (Efficient Cloud) 03/20/2022,09/25/2021 Hepatitis B, 20+ yrs 03/05/2021 Pneumococcal Conjugate Vacci ne, 20-valent ([id number]) 02/20/2023 Pneumococcal Polysaccharide PPV23 (Pneumovax) 03/19/2018 Seasonal Influenza Virus Vac cine, Unspecified Formulation 04/22/2019,03/19/2018,04/07/2017,03/15,03/31/2013,05/04/2012,04/30/2006 ,05/08/2005,05/11/2003,05/05/2002 Seasonal Influenza, PF, 6 M & above, IM , (FluLaval or Fluzone) 03/13/2020,04/22/2019,03/19/2018 Seasonal Influenza, Quadrivalent, ID 04/07/2017 Seasonal Influenza, [...] on file documented as of this encounter Plan of Treatment Upcoming Encounters Date Type Department Care Team (Late st Contact Info) Description 07/03/2023 11:20 AM EST Telemedicine Pharmacy, [facility] [address] [place] [address] Pharmacist1, [facility] [address] [facility] [place] [address] 07/14/2023 1:40 PM EST Office Visit [address] [place] [phone] Krystin Graves MD [address] [facility] [place] [id number] Scheduled Orders Name Type Priority Associated Diagnoses Orde r Schedule MYCODE INITIAL ADULT Lab Routine MyCode Research Other*[id number] Expected: 06/30/2023 (Approximate), Expires: 07/19/2024 Health Maintenance Due Date Last Done Comments [...] Additional history exists Pap Smear 01/03/2026 01/03/2023, 04/0 09/2016, 09/24/2016, Additional history exists Lipid Panel [...] as of this encounter Visit Diagnoses Diagnosis MyCode Research Other*[id number] documented in this encounter Care Teams Trailer Tank Truck Driver Relationship Specialty Start Date End Date Krystin Graves MD [address] [place] [address] PCP - General Family Medicine 10/21/22 documented as of this encounter
--- OUTSIDE RECORDS SUMMARY | 2023-06-30 12:02 | External Medical Summary | Summary of Care ---
Author Name Unknown Organization [facility] Address [address] [place] [address] Phone [phone] Care Team Providers Care Reinsurance Clerk Name Role Phone Sugar Graves MD Primary Care Provid er Reason for Visit * Reason Onset Date Comments Medication Refill 06/10/2023 Encounter Details Date Type Department Care Team (Late st Contact Info) Description 06/10/2023 Refill [facility] [address] [place] [address] Alvin Gerber MD [address] [place] [address] Panic attack Allergies Active Allergy Reactions Criticality Noted Date Comments Theophylline 04/30/2002 anxiety Theophylline Sodium Glycinate 2004 nervous documented as of this encounter (statuses as of 06/10/2023) Medications Medication Sig Dispensed Refills Start Date End Date Status Multiple Vitamins-Minerals (MULTIVITAMIN ADULT) TABS Take by mouth. 0 Active Multivitamin Adult Oral Tablet 1 Tab. 0 07/27/2019 Active Fluticasone Propionate 50 MCG/ACT Nasal SuspensionIndicati ons:Suspected COVID-19 virus infection,Viral URI Administer 2 Sprays [...] mouth daily. 90 Tablet 3 10/21/2022 Active Fluticasone-Salmet agatha 250-50 MCG/ACT Inhalation Aerosol Powder Breath Activated (Advair Diskus)Indications :Moderate persistent asthma without complication Inhale 1 Puff by mouth in the morning and 1 Puff before bedtime. 3 Each 3 12/20/2022 Active Glycopyrrolate 1 MG Oral Tablet (Robinul)Indicatio ns:Focal hyperhidrosis Take 1 Tablet by mouth 3 times a day as needed (sweating). 30 Tablet 1 02/11/2023 Active Albuterol Sulfate HFA 108 (90 Base) MCG/ACT Inhalation Aerosol SolutionIndication s:Moderate persistent asthma without complication Inhale 2 Puffs by mouth in the morning and 2 Puffs at noon and 2 Puffs in the evening and 2 Puffs before bedtime. Inhale 2 Puffs by mouth 4 times a day.. 18 g 5 02/11/2023 Active Atorvastatin Calcium 20 MG Oral Tablet (Lipitor)Indicatio ns:Dyslipidemia, goal LDL below 70 Take 1 Tablet by mouth daily. 90 Tablet 3 02/11/2023 Active Nirmatrelvir&Riton avir 150/100 10 x 150 MG & 10 x 100MG Oral Tablet Therapy Pack (Paxlovid (150/100))Indicati ons:Acute bronchitis due to COVID-19 virus Take 1 pink tablet of Nirmatrelvir and 1 white tablet of Ritonavir two times a day by mouth. 20 Tablet 0 03/27/2023 Active Benzonatate 100 MG Oral Capsule (Tessalon Perltyson)Indications :COVID-19 virus infection Take 1 Capsule by mouth 3 times a day as needed for Cough. Do not cut, crush, or chew. 50 Capsule 0 04/03/2023 Active Mirtazapine 45 MG Oral Tablet (Remeron)Indicatio ns:Panic attack Take 1 Tablet by mouth at bedtime. 90 Tablet 1 04/08/2023 Active FreeStyle Odessa Lite w/Device KitIndications:DM type 2, not at goal (HCC) Use to check sugars daily. E 11.9 1 Kit 0 04/16/2023 Active Fiasp FlexTouch 100 UNIT/ML Subcutaneous Solution Pen-injector (Insulin Aspart (w/Niacinamide))In dications:DM type 2, not at goal (HCC) Inject 5 units under the skin before breakfast, lunch, and dinner. Replaces 70/30 insulin. 15 mL 0 04/24/2023 Active Insulin Glargine-yfgn 100 UNIT/ML Subcutaneous Solution (Semglee (yfgn))Indications :DM type 2, not at goal (HCC) Inject 35 units under the skin once daily. Replaces 70/30 insulin. 40 mL 0 04/24/2023 Active BD Insulin Syringe U-100 1 ML (Insulin Syringes (Disposable))Indic ations:DM type 2, not at goal ([facility]) Please use with Semglee insulin once daily E11.9 100 Each 3 04/24/2023 Active BD Pen Needle Gertrude U/F 32G X 4 MM (Insulin Pen Needle)Indications :DM type 2, not at goal ([facility]) Use with Fiasp insulin three times daily E11.9 300 Each 3 04/24/2023 Active LORazepam 0.5 MG Oral Tablet (Ativan)Indication s:Panic attack Take 1 Tablet by mouth 3 times a day as needed for Anxiety. 15 Tablet 0 06/10/2023 Active LORazepam 0.5 MG Oral Tablet (Ativan)Indication s:Panic attack Take 1 Tablet by mouth 3 times a day as needed for Anxiety. 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 . documented as of this encounter (statuses as of 06/10/2023) Resolved Problems Problem Noted Date Diagnosed Date Resolved Date Disorder of electrolytes 10/21/202206/2022 Gastric reflux 10/21/2022 10/21/2022 Problem related to discharge planning 10/21/2022 10/21/2022 Depression 10/21/2022 10/21/2022 Coffee ground emesis 10/21/2022 023 Alcoholic hepatitis 10/21/2022 10/22/19 23 Acute upper gastrointestinal hemorrhage 10/21/2022 10/21/2022 Acute renal failure 10/21/2022 10/22/19 23 Acute pancreatitis 10/21/2022 3 Cirrhosis of liver 09/11/2022 Acute kidney injury 09/04/2020 10/22/19 23 Ascites [...] as of this encounter (statuses as of 06/10/2023) Immunizations Name Administration Dates Next Due COVID-19 mRNA, LNP-s, No Pre serve, 2-Dose Series ([employer]) 04/17/2021,08/22/2020 Covid-19, Mrna, Lnp-s, Pf, B ivalent, 30 Mcg, IM, 12 yrs and above ([employer]) 03/20/2022,09/25/2021 Hepatitis B, 20+ yrs 03/05/2021 Pneumococcal Conjugate Vacci ne, 20-valent ([id number]) 02/20/2023 Pneumococcal Polysaccharide PPV23 (Pneumovax) 03/19/2018 Seasonal [...] on file documented as of this encounter Miscellaneous Notes * Telephone Encounter - Sugar Graves MD - 06/10/2023 4:59 PM EST Signed Prescriptions: Disp Refills LORazepam 0.5 MG Oral Tablet (Ativan) 15 Tab*0 Sig: Take 1 Tablet by mouth 3 times a day as needed for Anxiety. Authorizing Provider: SUGAR GRAVES * Telephone Encounter - Ying Zepeda [facility] - 06/10/2023 11:03 AM EST Pending Prescriptions: Disp Refills LORazepam 0.5 MG Oral Tablet (Ativan) 15 Tab*0 Sig: Take 1 Tablet by mouth 3 times a day as needed for Anxiety. * Telephone Encounter - Ying Zepeda [facility] - 06/10/2023 11:02 AM EST I have reviewed the patients controlled substance dispensing history in the Prescription Drug Monitoring Program in compliance with the [facility] regulations before prescribing a controlled substance. PDMP checked on 06/10/2023. Pending Prescriptions: Disp Refills LORazepam 0.5 MG Oral Tablet (Ativan) 15 Tab*0 Sig: Take 1 Tablet by mouth 3 times a day as needed for Anxiety. Last Visit: 02/11/2023 (in office), 04/08/2023 (telemedicine) Next Visit: 07/14/2023 Date medication was last filled: 05/14/23 Date medication is due for refill: 05/18/23 Pharmacy: [id number] [facility] Is this request for a controlled substance? Yes and Urine Drug Screen was completed Toxicology results: Results for orders placed or performed in visit on 10/21/22 TOXICOLOGY, URINE SCREEN W/O CONFIRMATION Result Value Amphetamines Screen, U Negative Benzodiazepines Screen, U Negative Cannabinoids Screen, U Negative Cocaine Metabolite Screen, U Negative Fentanyl Screen, U Negative Hydrocodone Screen, U Negative Methadone Metabolite Screen, U Negative Morphine/Codeine Screen, U Negative Oxycodone Screen, U Negative Narrative Cutoff Concentrations: Drug Level Amphetamines 500 ng/mL Benzodiazepines 100 ng/mL Cannabinoids 50 ng/mL Cocaine Metabolite 150 ng/mL Fentanyl 1 ng/mL Hydrocodone / Hydromorphone 300 ng/mL Methadone Metabolite 100 ng/mL Morphine / Codeine 300 ng/mL Oxycodone / Oxymorphone 100 ng/mL Screening results are presumptive and can only be used for medical purposes. Confirmatory testing is available upon request. Please approve if appropriate. Thank you, Ying Zepeda, PharmD Clinical Pharmacist [facility]) 06/10/23 11:02 AM [phone] documented in this encounter Plan of Treatment Upcoming Encounters Date Type Department Care Team (Late st Contact Info) Description 07/03/2023 11:20 AM EST Telemedicine Pharmacy, [facility] [address] [place] [address] Pharmacist1, [facility] [address] [place] [address] 07/14/2023 1:40 PM EST Office Visit [facility] [address] [place] [address] Sugar Graves MD [address], [place] [id number] Scheduled Procedures Name Priority Associated Diagnoses Date/Ti me COLONOSCOPY FLEXIBLE PROXIMA L DIAGNOSTIC Recall Special screening for malignant neoplasms, colon Health Maintenance Due Date Last Done Comments [...] Additional history exists Pap Smear 01/03/2026 01/03/2023, 040 09/2016, 09/24/2016, Additional history exists Lipid Panel [...] as of this encounter Visit Diagnoses Diagnosis Panic attack Panic disorder without agoraphobia documented in this encounter Care Teams Reinsurance Clerk Relationship Specialty Start Date End Date Sugar Graves MD [address] [place] [address] PCP - General Family Medicine 10/21/22 documented as of this encounter
--- OUTSIDE RECORDS SUMMARY | 2023-06-30 12:02 | External Medical Summary | Summary of Care ---
Author Name Unknown Organization [facility] Address [address] [place] [address] Phone [phone] Care Team Providers Care Director Diversity Name Role Phone Krystin Graves MD Primary Care Provid er Reason for Visit * Reason Onset Date Comments Diabetes Management 05/16/2023 Encounter Details Date Type Department Care Team (Latest Contact Info) Description 05/16/2023 9:10 AM EST Scheduled Telephone Pharmacy, [facility] [address] [place] [address] Pharmacist1, [facility] [address] [place] [address] DM type 2, not at goal ([facility])* Allergies Active Allergy Reactions Criticality Noted Date Comments Theophylline 04/30/2002 anxiety Theophylline Sodium Glycinate 2004 nervous documented as of this encounter (statuses as of 05/16/2023) Medications Medication Sig Dispensed Refills Start Date [...] bedtime. 90 Tablet 1 04/08/2023 Active FreeStyle Morrice Lite w/Device KitIndications:DM type 2, not at goal ([facility]) Use to check sugars daily. E 11.9 1 Kit 0 04/16/2023 Active Fiasp FlexTouch 100 UNIT/ML Subcutaneous Solution Pen-injector (Insulin Aspart (w/Niacinamide))Ind ications:DM type 2, not at goal ([facility]) Inject 5 units under the skin before breakfast, lunch, and dinner. Replaces 70/30 insulin. 15 mL 0 04/24/2023 Active Insulin Glargine-yfgn 100 UNIT/ML Subcutaneous Solution (Semglee (yfgn))Indications: DM type 2, not at goal ([facility]) Inject 35 units under the skin once daily. Replaces 70/30 insulin. 40 mL 0 04/24/2023 Active BD Insulin Syringe U-100 1 ML (Insulin Syringes (Disposable))Indica tions:DM type 2, not at goal ([facility]) Please use with Semglee insulin once daily E11.9 100 Each 3 04/24/2023 Active BD Pen Needle Gertrude U/F 32G X 4 MM (Insulin Pen Needle)Indications: DM type 2, not at goal ([facility]) Use with Fiasp insulin three times daily E11.9 300 Each 3 04/24/2023 Active LORazepam 0.5 MG Oral Tablet (Ativan)Indications :Panic attack Take 1 Tablet by mouth 3 times a day as needed for Anxiety. 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 . documented as of this encounter (statuses as of 05/16/2023) Resolved Problems Problem Noted Date Diagnosed Date [...] as of this encounter (statuses as of 05/16/2023) Immunizations Name Administration Dates Next Due COVID-19 mRNA, LNP-s, No Pre serve, 2-Dose Series ([employer]) 04/17/2021,08/22/2020 Covid-19, Mrna, Lnp-s, Pf, B ivalent, 30 Mcg, IM, 12 yrs and above ([employer]) 03/20/2022,09/25/2021 Hepatitis B, 20+ yrs 03/05/2021 Pneumococcal Conjugate Vacci ne, 20-valent ([id number]) 02/20/2023 Pneumococcal Polysaccharide PPV23 (Pneumovax) 03/19/2018 SEASONAL [...] encounter Miscellaneous Notes * Telephone Encounter - Vel Mccormick [facility] - 05/16/2023 8:22 AM EST Images from the original note were not included. Medication Therapy Disease Management [facility] - Diabetes Management Progress Note Patient Phone Numbers Marcus Avelar, identified by name and date of , is a 47 year old female being seen for diabetesmanagement/education. Patient for telephonic return diabetic visit. Left message for patient at 9:13 AM. DIABETES: Current diabetic medications: DISCONTINUE Novolin 70/30- 28 units in AM; 28 units in PM START Semglee 35 units once daily and increase by 2 units every 3 days until BS <200 START Fiasp 5 units before breakfast, lunch, and dinner. Medication Injection Site: Abdomen History of Treatment Barriers: Lifestyle: None Therapy considerations: hx of acute pancreatitis: avoiding GLPs at this time , jardiance caused vaginitis Medication: Metformin: N/V even at very lowest doses Glucose Review/SMBG: Readings obtained from patient device Hypoglycemia: Does your blood sugar go below 70 mg/dL? No Hyperglycemia symptoms present: polydipsia Goal < Recent Labs Units 08/02/22 0000 09/07/20 0407 05/27/20 0000 HEMOGLOBIN, [id number] LAB <5.7% 10.3* 5.2 4.9 Recent Labs Units 08/02/22 0000 11/20/20 1052 09/11/20 0520 08/30/20 2232 11/25/18 0000 10/23/16 0000 EGFR-OUTSIDE LAB ML/MIN 86 -- -- -- 80 80 CREATININE-OUTSIDE LAB MG/DL 0.85 0.59 0.69 < > 0.88 0.90 < > = values in this interval not displayed. Lab Results Component Value Date/Time CREATININE, RANDOM URINE - JOSETTE 93 10/21/2022 10:16 AM CREATININE-OUTSIDE LAB 0.85 08/02/2022 12:00 AM CREATININE-OUTSIDE LAB 0.59 11/20/2020 10:52 AM CREATININE-OUTSIDE LAB 0.69 09/11/2020 05:20 AM CREATININE-OUTSIDE LAB 0.76 09/10/2020 02:44 AM HYPERTENSION: Patient on ACEi/ARB: no, not indicated based on UACR or BP BP Readings from Last 3 Encounters: 02/11/23 124/82 01/03/23 110/70 10/21/22 110/64 Blood pressure at goal: yes HYPERLIPIDEMIA: Patient is taking moderate or high intensity statin: yes, Atorvastatin 20mg daily HEALTH MAINTENANCE REVIEW: Health Maintenance Due Topic Date Due Depression Screening 08/03/2020 Colorectal Cancer Screening Never done Hepatitis B (2 of 3 - 19+ 3-dose series) 04/02/2021 HbA1c 01/30/2023 Influenza Vaccine (FLU shot) (1) 02/21/2023 COVID-19 Vaccine (2022- season) 2023 Diabetic Eye Exam 02/23/2023 ASSESSMENT & PLAN: ICD-10-CM 1. DM type 2, not at goal (HCC) E11.9 BG Readings - Blood sugars uncontrolled. Still elevated Patient is agreeable to wear Beth CGM. Patient aware to contact clinic if any hypoglycemia before next visit. MEDICATION CHANGES: yes, see below; preferred pharmacy: [facility] Diabetic Medications: INCREASE: Semglee 42 units once daily Fiasp 5 units before breakfast, lunch, and dinner. HEALTH MAINTENANCE INTERVENTIONS: Labs: Ordered & Scheduled: HgA1c Immunizations: eligible for flu and covid vaccine Foot Exam: Up to Date Eye Exam: due Annual Wellness Visit: N/A FOLLOW UP: Return to clinic in 1 week 05/22/2023 Vel Byrne RPh, CACP, CDE Clinical Pharmacist Medication Therapy Management Clinic 05/16/2023 8:23 AM documented in this encounter Plan of Treatment Upcoming Encounters Date Type Department Care Team (Latest Contact Info) Description 05/22/2023 1:30 PM EST Telemedicine Pharmacy, [facility] [address] [facility] [place] [address] Pharmacist1, [facility] [address] [facility] [place] [address] 06/10/2023 8:30 AM EST Hospital Encounter ENDO [facility], Endoscopy Room [facility] [address] [place] [address] Angelo Rogers MD [address] [place] [address] 06/10/2023 8:30 AM EST - 06/10/2023 9:00 AM EST Surgery ENDO [facility], Endoscopy Room [facility] [address] [place] [address] Angelo Rogers MD [address] [place] [address] COLONOSCOPY FLEXIBLE PROXIMAL DIAGNOSTIC 07/14/2023 1:40 PM EST Office Visit [facility] [address] [facility] [place] [phone] Krystin Graves MD [address] [place] [address] Scheduled Procedures Name Priority Associated Diagnoses Date/Ti [...] 3-dose series) 04/02/2021 03/05/2021 HbA1c 01/30/2023 08/02/2022, 0301/2021, 05/27/2020, Additional history exists COVID-19 Vaccine ( [...] colon documented in this encounter Care Teams Director Diversity Relationship Specialty Start Date End Date Krystin Graves MD [address] [facility] [place] [address] PCP - General Family Medicine 10/21/22 documented as of this encounter
--- OUTSIDE RECORDS SUMMARY | 2023-06-30 12:03 | External Medical Summary | Summary of Care ---
Author Name Unknown Organization [facility] Address [address] [place] [address] Phone [phone] Care Team Providers Care Cardiac Cath Tech Name Role Phone Sugar Meyer MD Primary Care Provid er Reason for Visit * Reason Onset Date Comments Medication Refill 04/10/2023 Encounter Details Date Type Department Care Team Description 04/10/2023 Refill [facility] [address] [place] [address] Sugar Meyer MD [address] [place] [address] Panic attack Allergies Active Allergy Reactions Severity Noted Date Comments Theophylline 04/30/2002 anxiety Theophylline Sodium Glycinate 2004 nervous documented as of this encounter (statuses as of 04/11/2023) Medications Medication Sig Dispensed Refills Start Date [...] mouth daily. 90 Tablet 3 10/21/2022 Active BD Pen Needle Gertrude U/F 32G X 4 MM (Insulin Pen Needle)Indications :DM type 2, not at goal (HCC) Use with insulin pens 4 times daily 400 Each 1 12/16/2022 Active Fluticasone-Salmet agatha 250-50 MCG/ACT Inhalation Aerosol Powder Breath Activated (Advair Diskus)Indications :Moderate persistent asthma without complication Inhale 1 Puff by mouth in the morning and 1 Puff before bedtime. 3 Each 3 12/20/2022 Active NovoLIN 70/30 (70-30) 100 UNIT/ML Subcutaneous SuspensionIndicati ons:DM type 2, not at goal (HCC) Inject 28 Units under the skin in the morning and 28 Units in the evening. 60 mL 3 01/23/2023 Active Glycopyrrolate 1 MG Oral Tablet (Robinul)Indicatio [...] 03/27/2023 Active Benzonatate 100 MG Oral Capsule (Tessalandrew Perltyson)Indications :COVID-19 virus infection Take 1 Capsule by mouth 3 times a day as needed for Cough. Do not cut, crush, or chew. 50 Capsule 0 04/03/2023 Active Mirtazapine 45 MG Oral Tablet (Remeron)Indicatio ns:Panic attack Take 1 Tablet by mouth at bedtime. 90 Tablet 1 04/08/2023 Active LORazepam 0.5 MG Oral Tablet (Ativan)Indication s:Panic attack Take 1 Tablet by mouth 3 times a day as needed for Anxiety. 15 Tablet 0 04/11/2023 Active LORazepam 0.5 MG Oral Tablet (Ativan)Indication s:Panic attack Take 1 Tablet by mouth 3 times a day as needed for Anxiety. 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 . documented as of this encounter (statuses as of 04/11/2023) Resolved Problems Problem Noted Date Resolved Date Disorder of electrolytes 10/21/2022 023 Gastric reflux 10/21/2022 10/21/2022 Problem related to discharge planning 10/21/2022 10/21/2022 Depression 10/21/2022 10/21/2022 Coffee ground emesis 10/21/2022 10/21/2022 Alcoholic hepatitis 10/21/2022 10/21/2022 Acute upper gastrointestinal hemorrhage 10/22/1910/21/2022 Acute renal failure 10/21/2022 10/21/2022 Acute pancreatitis 10/21/2022 10/21/2022 Cirrhosis of liver 09/11/2022 10/21/2022 Acute kidney injury 09/04/2020 10/21/2022 Ascites due to alcoholic hepatitis 08/31/2020 10/21/2022 Alcohol-induced acute pancre atitis without infection or necrosis 08/31/2020 10/21/2022 Alcoholic cirrhosis of liver with ascites 202010/21/2022 Thrombocytopenia 08/31/2020 10/21/2022 Jaundice 08/31/2020 10/21/2022 Coagulopathy 08/31/2020 10/21/2022 Alcoholic intoxication with complication 021 10/21/2022 Alcohol withdrawal syndrome 08/31/2020 05/0 06/2022 Alcohol use disorder, moderate, dependence 05/1310/21/2022 Alcohol dependence, PCP tx 03/12/201905/31 Obstructive lung disease 06/19/2018 023 Normal , first 08/31/2002 06/20/20 03 Asthma with severity to be determined 04/30/2002 08/21/2012 Overview: ICD-10 update of inactive term Anxiety 12/09/2018 Asthma with severity to be determined 03/19/2018 Overview: hospitalized for 2 days documented as of this encounter (statuses as of 04/11/2023) Immunizations Name Administration Dates Next Due COVID-19 mRNA, LNP-s, No Pre serve, 2-Dose Series (QMCODES) 04/17/2021,08/22/2020 Covid-19, Mrna, Lnp-s, Pf, B ivalent, 30 Mcg, IM, 12 yrs and above (QMCODES) 03/20/2022,09/25/2021 Hepatitis B, 20+ yrs 03/05/2021 Pneumococcal Conjugate Vacci ne, 20-valent ([id number]) 02/20/2023 Pneumococcal Polysaccharide PPV23 (Pneumovax) 03/19/2018 SEASONAL [...] pur e alcohol) depends, can be heavy Food Insecurity Answer Date Recorded Within the past 12 months, y ou worried that your food would run out before you got money to buy more. Never true 01/03/2023 Within the past 12 months, t he food you bought just didn't last and you didn't have money to get more. Never true 01/03/2023 Sex Assigned at Date Recorded Female 10/21/2022 8:14 AM E DT Job Start Date Occupation Industry Not on file Not on file Not on file documented as of this encounter Miscellaneous Notes * Telephone Encounter - Sugar Meyer MD - 04/11/2023 7:45 AM EDT Signed Prescriptions: Disp Refills LORazepam 0.5 MG Oral Tablet (Ativan) 15 Tab*0 Sig: Take 1 Tablet by mouth 3 times a day as needed for Anxiety.Authorizing Provider: SUGAR MEYER------- * Telephone Encounter - Vanessa Garcia [facility] - 04/10/2023 2:08 PM EDT Pending Prescriptions: Disp Refills LORazepam 0.5 MG Oral Tablet (Ativan) 15 Tab*0 Sig: Take 1 Tablet by mouth 3 times a day as needed for Anxiety. * Telephone Encounter - Vanessa Garcia [facility] - 04/10/2023 2:07 PM EDT I have reviewed the patients controlled substance dispensing history in the Prescription Drug Monitoring Program in compliance with the [facility] regulations before prescribing a controlled substance. PDMP checked on 04/10/2023. Pending Prescriptions: Disp Refills LORazepam 0.5 MG Oral Tablet (Ativan) 15 Tab*0 Sig: Take 1 Tablet by mouth 3 times a day as needed for Anxiety. Last Visit: 02/11/2023 (in office), 04/08/2023 (telemedicine) Next Visit: 07/14/2023 Date medication was last filled: 03/27/23 Date medication is due for refill: 03/31/23 Pharmacy: [id number] [address] [place] [address] Is this request for a controlled substance? Yes and Urine Drug Screen was completed Toxicology results: Results for orders placed or performed in visit on 10/21/22 TOXICOLOGY, URINE SCREEN W/O CONFIRMATION Result Value Amphetamine Negative Benzodiazepines Negative Cannabinoids Negative Cocaine Metabolite Negative Fentanyl Negative Hydrocodone / Hydromorphone Negative Methadone Metabolite Negative Morphine / Codeine Negative Oxycodone / Oxymorphone Negative Narrative Cutoff Concentrations: Drug Level Amphetamines [...] request. Please approve if appropriate. Thank you, Vanessa Gracia, PharmD Clinical Pharmacist [facility] ([facility]) (formerly Telepharmacy) 04/10/23 2:07 PM [phone] documented in this encounter Plan of Treatment Upcoming Encounters Date Type Specialty Care Team Description 04/24/2023 Telemedicine Pharmacy [facility] [address] [place] [address] 06/10/2023 Hospital Encounter Endoscopy Angelo Rogers MD [address] [place] [address] 06/10/2023 Surgery Endoscopy Angelo Rogers MD [address] [place] [address] COLONOSCOPY FLEXIBLE PROXIMAL DIAGNOSTIC 07/14/2023 Office Visit Family Medicine Sugar Meyer MD [address] [place] [address] Scheduled Procedures Name Priority Associated Diagnoses Date/Ti [...] 0301/2021, 05/27/2020, Additional history exists COVID-19 Vaccine (2022- season) 2023 03/20/2022, 09/25/2021, 04/17/2021, Additional history exists Influenza Vaccine (FLU shot) (#1) 2023 03/13/2020, 04/22/2019, 04/22/2019, Additional history exists DIABETES-EYE EXAM 02/23/2023 02/23/2022 GFR 08/02/2023 08/02/2022, 10/23, 09/11/2020, [...] Diagnosis Panic attack Panic disorder without agoraphobia Special screening for malignant neoplasms, colon documented in this encounter Care Teams Cardiac Cath Tech Relationship Specialty Start Date End Date Sugar Meyer MD [address] [place] [facility] [place] [address] PCP - General Family Medicine 10/21/22 documented as of this encounter
--- OUTSIDE RECORDS SUMMARY | 2023-06-30 12:03 | External Medical Summary | Summary of Care ---
Author Name Unknown Organization [facility] Address [address] [place] [address] Phone [phone] Care Team Providers Care Chair Spring Assembler Name Role Phone Krystin Graves MD Primary Care Provid er Reason for Visit * Reason Comments Dosage Adjustment In Person (Anticoag Cl inic) Diabetes Follow-Up Encounter Details Date Type Department Care Team (Late st Contact Info) Description 05/02/2023 2:20 PM [facility] Telemedicine Pharmacy, [address] [address] [facility] [address] [place] [address] DM type 2, not at goal (HCC)* Allergies Active Allergy Reactions Criticality Noted Date Comments Theophylline 04/30/2002 anxiety Theophylline Sodium Glycinate 2004 nervous documented as of this encounter (statuses as of 05/02/2023) Medications Medication Sig Dispensed Refills Start Date [...] Active Benzonatate 100 MG Oral Capsule (Tessalon Perltyson)Indications: COVID-19 virus infection Take 1 Capsule by [...] Anxiety. 15 Tablet 0 04/11/2023 Active FreeStyle [place] Lite w/Device KitIndications:DM type 2, not at goal (HCC) Use to check sugars daily. E 11.9 1 Kit 0 04/16/2023 Active Fiasp FlexTouch 100 UNIT/ML Subcutaneous Solution Pen-injector (Insulin Aspart (w/Niacinamide))Ind ications:DM type 2, not at goal ([facility]) Inject 5 units under the skin before breakfast, lunch, and dinner. Replaces 70/30 insulin. 15 mL 0 04/24/2023 Active Insulin Glargine-yfgn 100 UNIT/ML Subcutaneous Solution (Semglee (yfgn))Indications: DM type 2, not at goal ([facility]) Inject 35 units under the skin once daily. Replaces 70/30 insulin. 40 mL 0 04/24/2023 Active BD Insulin Syringe U-100 1 ML (Insulin Syringes (Disposable))Indica tions:DM type 2, not at goal ([facility]) Please use with Semglee insulin once daily E11.9 100 Each 3 04/24/2023 Active BD Pen Needle Gertrude U/F 32G X 4 MM (Insulin Pen Needle)Indications: DM type 2, not at goal ([facility]) Use with Fiasp insulin three times daily E11.9 300 Each 3 04/24/2023 Active documented as of this encounter (statuses as of 05/02/2023) Active Problems Problem Noted Date Diagnosed Date Carrier of methicillin resis tant Staphylococcus aureus (MRSA) 10/21/2022 DM type 2, not at goal 03/13/2020 Major depressive disorder, recurrent episode, mo derate 08/03/2019 Alcoholism 05/13/2019 Panic disorder 12/09/2018 Asthma, moderate persistent 08/21/2012 ADVANCE DIRECTIVE INFORMATION 12/03/2007 Overview: No, Advance Directive brochure offered , patient declined. . documented as of this encounter (statuses as of 05/02/2023) Resolved Problems Problem Noted Date Diagnosed Date [...] as of this encounter (statuses as of 05/02/2023) Immunizations Name Administration Dates Next Due COVID-19 mRNA, LNP-s, No Pre serve, 2-Dose Series (FlixChip) 04/17/2021,08/22/2020 Covid-19, Mrna, Lnp-s, Pf, B ivalent, 30 Mcg, IM, 12 yrs and above (FlixChip) 03/20/2022,09/25/2021 Hepatitis B, 20+ yrs 03/05/2021 Pneumococcal Conjugate Vacci ne, 20-valent ([id number]) 02/20/2023 Pneumococcal Polysaccharide PPV23 (Pneumovax) 03/19/2018 SEASONAL [...] as of this encounter Progress Notes * Elizabeth Rosario, [facility] - 05/02/2023 2:25 PM EST Images from the original note were not included. Patient location: HOME. I was in a hospital or clinic location. After connecting through televideo,patient was verified with two unique identifiers. Patient (or authorized legal key account representative) was then informed that this was [...] Site: Abdomen Lifestyle: Diet: unchanged Glucose Review/SMBG: Readings obtained from patient device Hypoglycemia: Does your blood sugar go below 70 mg/dL? No Hyperglycemia symptoms present: none Recent Labs Units 08/02/22 0000 HEMOGLOBIN, [id number] LAB <5.7% 10.3* Recent Labs Units 08/02/22 [...] type 2, not at goal (HCC) E11.9 Considerations: - hx of acute pancreatitis- avoiding GLPs at this time - jardiance caused vaginitis - unable to tolerate metformin due to N/V even at very lowest doses BG Readings - Blood sugars uncontrolled. Slight improvement from 1 week ago, but overall still verymuch above goal. Due for A1c. Beth suggests it is in the 12% range. Medications - Reviewed current regimen, patient is not yet able to obtain the new basal/bolus insulin due to cost. She is currently working with her pharmacy to use coupons for both fiasp and semglee. She will reach out to [facility] if not able to use coupons, and then plan will be to use Basaglar and Humalog with [employer] Insulin [employer] [facility] (with insurance or jeffers). This will cost the patient $35/month per insulin. The link for this has already been sent to patient via [employer] earlier this week. Overall, patient feels comfortable and excited to switch to basal/bolus insulin. Reviewed with patient that close follow up will be needed to titrate the insulin safely. Verbalizes understanding. Diet, Exercise, Lifestyle - Encouraged patient to increase activity as able- she notes that she notices that her sugars are better controlled when she goes for a walk . Patient is agreeable to SMBG with Freestyle Beth daily. Patient aware to contact clinic if any hypoglycemia before next visit. MEDICATION CHANGES: Diabetic Medications: DISCONTINUE Novolin 70/30- 28 units in AM; 28 units in PM START Semglee 35 units once daily START Fiasp 5 units before breakfast, lunch, and dinner. HEALTH MAINTENANCE INTERVENTIONS: Labs: Up to Date Immunizations: eligible for flu and hep B series Foot Exam: Up to Date Eye Exam: due Annual Wellness Visit: N/A FOLLOW UP: Return to clinic in 1 weeks with Napoleon Rosario RP Clinical Pharmacist - Order Department Supervisor Medication Therapy [facility] 05/02/2023, 2:26 PM documented in this encounter Plan of Treatment Upcoming Encounters Date Type Department Care Team (Latest Contact Info) Description 05/08/2023 2:30 PM EST Telemedicine Pharmacy, [facility] [address] [place] [address] Pharmacist1, [facility] [address] [place] [address] 06/10/2023 8:30 AM EST Hospital Encounter [facility] [place] [address] Angelo Rogers MD [address] [place] [address] 06/10/2023 8:30 AM EST - 06/10/2023 9:00 AM EST Surgery ENDO [facility], Endoscopy Room [facility] [address] [place] [phone] Angelo Rogers MD [address] [place] [address] COLONOSCOPY FLEXIBLE PROXIMAL DIAGNOSTIC 07/14/2023 1:40 PM EST Office Visit [facility] [address] [place] [phone] Krystin Graves MD [address] [place] [address] Scheduled Procedures Name Priority Associated Diagnoses Date/Ti [...] colon documented in this encounter Care Teams Chair Spring Assembler Relationship Specialty Start Date End Date Krystin Graves MD [address] [place] [address] PCP - General Family Medicine 10/21/22 documented as of this encounter
--- OUTSIDE RECORDS SUMMARY | 2023-06-30 12:03 | External Medical Summary | Summary of Care ---
Author Name Unknown Organization [facility] Address [address] [place] [address] Phone [phone] Care Team Providers Care Bottle Inspector Name Role Phone Krystin Graves MD Primary Care Provid er Reason for Visit * Reason Comments Acute Encounter Details Date Type Department Care Team (Late st Contact Info) Description 04/03/2023 11:00 AM EDT [facility], [place] [address] [place] [address] Sweta Guzman PA-C [address] [place] [address] COVID-19 virus infection* Allergies Active Allergy Reactions Criticality Noted Date Comments Theophylline 04/30/2002 anxiety Theophylline Sodium Glycinate 2004 nervous documented as of this encounter (statuses as of 04/13/2023) Medications Medication Sig Dispensed Refills Start Date [...] 03/27/2023 Active Benzonatate 100 MG Oral Capsule (Harleen Frias)Indications :COVID-19 virus infection Take 1 Capsule by mouth 3 times a day as needed for Cough. Do not cut, crush, or chew. 50 Capsule 0 04/03/2023 Active Triamcinolone Acetonide 55 MCG/ACT Nasal Aerosol Administer into nostril. 0 3 Discontinu ed(Patient preference /discontin uation) Pantoprazole Sodium 40 MG Oral Tablet Delayed Release (Protonix) Take 1 Tab by mouth daily. 30 min before breakfast 30 Tab 5 03/13/2020 3 Discontinu ed(Patient preference /discontin uation) Fluticasone-Salmet agatha 250-50 MCG/DOSE Inhalation Aerosol Powder Breath Activated DAILY IN THE MORNING 0 02/27/2019 3 Discontinu ed(Patient preference /discontin uation) Citalopram Hydrobromide 10 MG Oral Tablet (CeleXA)Indication s:Panic attack Take 1 Tablet by mouth daily. 30 Tablet 5 10/21/2022 3 Discontinu ed(Patient preference /discontin uation) Mirtazapine 15 MG Oral Tablet (Remeron)Indicatio ns:Panic attack Take once a day for a week then stop. Part of wean. 7 Tablet 0 03/19/2023 3 Discontinu ed(Refill) LORazepam 0.5 MG Oral Tablet (Ativan)Indication s:Panic attack Take 1 Tablet by mouth 3 times a day as needed for Anxiety. 15 Tablet 0 03/27/2023 3 Discontinu ed(Refill) documented as of this encounter (statuses as of 04/13/2023) Active Problems Problem Noted Date Diagnosed Date Carrier of methicillin resis tant Staphylococcus aureus (MRSA) 10/21/2022 DM type 2, not at goal 03/13/2020 Major depressive disorder, recurrent episode, mo derate 08/03/2019 Alcoholism 05/13/2019 Panic disorder 12/09/2018 Asthma, moderate persistent 08/21/2012 ADVANCE DIRECTIVE INFORMATION 12/03/2007 Overview: No, Advance Directive brochure offered , patient declined. . documented as of this encounter (statuses as of 04/13/2023) Resolved Problems Problem Noted Date Diagnosed Date [...] as of this encounter (statuses as of 04/13/2023) Immunizations Name Administration Dates Next Due COVID-19 mRNA, LNP-s, No Pre serve, 2-Dose Series (be2) 04/17/2021,08/22/2020 Covid-19, Mrna, Lnp-s, Pf, B ivalent, 30 Mcg, IM, 12 yrs and above (be2) 03/20/2022,09/25/2021 Hepatitis B, 20+ yrs 03/05/2021 Pneumococcal Conjugate Vacci ne, 20-valent ([id number]) 02/20/2023 Pneumococcal Polysaccharide PPV23 (Pneumovax) 03/19/2018 SEASONAL [...] as of this encounter Progress Notes * Sweta Guzman PA-C - 04/03/2023 11:02 AM EDT Images from the original note were not included. History of Present Illness Marcus Avelar is a 47 year old female that presents for Acute Patient presents with concens about testing + for covid 19 + covid test at home Randal already took Pt testing positive still, 1 week later Coughing last night, didn't get much sleep No SOB Using advair Gatorade zero, No fever Diarrhea bodypain Dry cough mostly No wheezing COLVIN Physical Exam There were no vitals filed for this visit. Physical Exam Constitutional: General: She is not in acute distress. Appearance: She is obese. She is not ill-appearing or diaphoretic. HENT: Nose: Congestion present. Pulmonary: Effort: Pulmonary effort is normal. Comments: +cough Neurological: General: No focal deficit present. Mental Status: She is alert. I have reviewed the following results: None Assessment and Plan COVID-19 virus infection (Primary) - Benzonatate 100 MG Oral Capsule (Harleen Frias); Take 1 Capsule by mouth 3 times a day as needed for Cough. Do not cut, crush, or chew. Flonase 1x daily Saline nasal rinses 3-4x daily Musinex Vicks to the chest Cool mist humidifier tylenol and/or ibuprofen for fever and pain Staying hydrated -advised pt she can test + for several weeks Wrap-Up Check-out note: advised if worsen or doesn't improve to schedule in person evaluation Time: I spent a total of 20-29 minutes (exact time 22 mins) on the date of service in preparation, delivery, and documentation of the care provided to Marcus Avelar excluding any time spent in the performance of separately billed services. Telemedicine: Patient location: HOME. I was in a hospital or clinic location. After connecting through televideo,patient was verified with two unique identifiers. Patient (or authorized legal desk representative) was then informed that this was a Telemedicine visit and being conducted confidentially over secure lines. Methods to assure confidentiality were taken. Patient acknowledged consent and understanding of pr ivacy and security of the Telemedicine visit. The patient agreed to participate. Sweta Guzman PA-C [place] [address] [place] [address] documented in this encounter Plan of Treatment Upcoming Encounters Date Type Department Care Team (Latest Contact Info) Description 04/24/2023 10:40 AM EDT Telemedicine Pharmacy, [place] [address] [facility], [place] [address] [facility] [address] [place] [facility] [place] [address] 06/10/2023 8:30 AM EST Hospital Encounter ENDO [facility], Endoscopy Room [facility] [address] [place] [phone] Angelo Rogers MD [address] [place] [address] 06/10/2023 8:30 AM EST - 06/10/2023 9:00 AM EST Surgery ENDO [facility], Endoscopy [facility] [address] [place] [phone] Angelo Rogers MD [address] [place] [address] COLONOSCOPY FLEXIBLE PROXIMAL DIAGNOSTIC 07/14/2023 1:40 PM EST Office [facility] [address] [facility] [address] [facility]in [facility] [address] [facility] [address] Scheduled Procedures Name Priority Associated Diagnoses Date/Ti [...] 05/27/2020, Additional history exists COVID-19 Vaccine ( - 2022- season) 2023 03/20/2022, 09/25/2021, 04/17/2021, Additional history [...] as of this encounter Visit Diagnoses Diagnosis COVID-19 virus infection- Primary Special screening for malignant neoplasms, colon documented in this encounter Care Teams Bottle Inspector Relationship Specialty Start Date End Date Krystin Graves MD [address] [place] [address] PCP - General Family Medicine 10/21/22 documented as of this encounter
--- OUTSIDE RECORDS SUMMARY | 2023-06-30 12:03 | External Medical Summary | Summary of Care ---
Author Name Unknown Organization [facility] Address [address] [place] [address] Phone [phone] Care Team Providers Care Insulation Power Unit Tender Name Role Phone Krystin Graves MD Primary Care Provid er Encounter Details Date Type Department Care Team (Late st Contact Info) Description 04/15/[address] [facility] [address] [place] [address] Krystin Graves MD [address] [place] [address] Allergies Active Allergy Reactions Criticality Noted Date Comments Theophylline 04/30/2002 anxiety Theophylline Sodium Glycinate 2004 nervous documented as of this encounter (statuses as of 04/15/2023) Medications Medication Sig Dispensed Refills Start Date [...] times daily 400 Each 1 12/16/2022 Active Fluticasone-Salmete rol 250-50 MCG/ACT Inhalation Aerosol Powder Breath Activated (Advair Diskus)Indications: Moderate persistent asthma without complication Inhale 1 Puff by mouth in the morning and 1 Puff before bedtime. 3 Each 3 12/20/2022 Active NovoLIN 70/30 (70-30) 100 UNIT/ML Subcutaneous SuspensionIndicatio ns:DM type 2, not at goal (HCC) Inject 28 Units under the skin in the morning and 28 Units in the evening. 60 mL 3 01/23/2023 Active Glycopyrrolate 1 MG Oral Tablet (Robinul)Indication [...] for Anxiety. 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 . documented as of this encounter (statuses as of 04/15/2023) Resolved Problems Problem Noted Date Diagnosed Date [...] as of this encounter (statuses as of 04/15/2023) Immunizations Name Administration Dates Next Due COVID-19 mRNA, LNP-s, No Pre serve, 2-Dose Series ([employer]) 04/17/2021,08/22/2020 Covid-19, Mrna, Lnp-s, Pf, B ivalent, 30 Mcg, IM, 12 yrs and above ([employer]) 03/20/2022,09/25/2021 Hepatitis B, 20+ yrs 03/05/2021 Pneumococcal Conjugate Vacci ne, 20-valent ([id number]) 02/20/2023 Pneumococcal Polysaccharide PPV23 (Pneumovax) 03/19/2018 SEASONAL [...] encounter Miscellaneous Notes * Telephone Encounter - Krystin Graves MD - 04/15/2023 6:21 PM EDT duplicate * Telephone Encounter - Ana Serrato LPN - 04/15/2023 1:53 PM EDT Please see the MyG message from pt regarding Blood sugar supplies/device. Please advise. Thank you documented in this encounter Plan of Treatment Upcoming Encounters Date Type Department Care Team (Latest Contact Info) Description 04/24/2023 10:40 AM EDT Telemedicine Pharmacy, [address] [address] [facility] [address] [place] [address] 06/10/2023 8:30 AM EST Hospital Encounter [facility], Endoscopy Room [facility] [address] [place] [phone] Angelo Rogers MD [address] [place] [address] 06/10/2023 8:30 AM EST - 06/10/2023 9:00 AM EST Surgery ENDO [facility], Endoscopy Room [facility] [address] [place] [phone] Angelo Rogers MD [address] [place] [address] COLONOSCOPY FLEXIBLE PROXIMAL DIAGNOSTIC 07/14/2023 1:40 PM EST Office Visit [facility] [address] [place] [facility] [address] Krystin Graves MD [address] [place] [facility] [address] Scheduled Procedures Name Priority Associated Diagnoses Date/Ti [...] Not on filedocumented as of this encounter Care Teams Insulation Power Unit Tender Relationship Specialty Start Date End Date Krystin Graves MD [address] [place] [facility] [place] [address] PCP - General Family Medicine 10/21/22 documented as of this encounter
--- OUTSIDE RECORDS SUMMARY | 2023-06-30 12:03 | External Medical Summary | Summary of Care ---
Author Name Unknown Organization [facility] Address [address] [place] [address] Phone [phone] Care Team Providers Care Law Office Receptionist Name Role Phone Krystin Graves MD Primary Care Provid er Reason for Visit * Reason Comments Follow Up Encounter Details Date Type Department Care Team Description 04/08/2023 Telemedicine [facility] [address] [place] [address] Krystin Graves MD [address] [place] [address] COVID-19 virus infection*; Panic attack; Polyarthralgia; Myalgia; Hoarseness Allergies Active Allergy Reactions Severity Noted Date Comments Theophylline 04/30/2002 anxiety Theophylline Sodium Glycinate 2004 nervous documented as of this encounter (statuses as of 04/08/2023) Medications Medication Sig Dispensed Refills Start Date [...] mouth daily. 90 Tablet 3 02/11/2023 Active LORazepam 0.5 MG Oral Tablet (Ativan)Indication s:Panic attack Take 1 Tablet by mouth 3 times a day as needed for Anxiety. 15 Tablet 0 03/27/2023 Active Nirmatrelvir&Riton avir 150/100 10 x 150 [...] at bedtime. 90 Tablet 1 04/08/2023 Active Mirtazapine 15 MG Oral Tablet (Remeron)Indicatio ns:Panic attack Take once a day for a week then stop. Part of wean. 7 Tablet 0 03/19/2023 Discontinu ed(Refill) documented as of this encounter (statuses as of 04/08/2023) Active Problems Problem Noted Date Carrier of methicillin resistant Staphyl ococcus aureus (MRSA) 10/21/2022 DM type 2, not at goal 03/13/2020 Major depressive disorder, recurrent epi sode, moderate 08/03/2019 Alcoholism 05/13/2019 Panic disorder 12/09/2018 Asthma, moderate persistent 08/21/2012 ADVANCE DIRECTIVE INFORMATION 12/03/2007 Overview: No, Advance Directive brochure offered , patient declined. . documented as of this encounter (statuses as of 04/08/2023) Resolved Problems Problem Noted Date Resolved Date Disorder of electrolytes 10/21/2022 023 Gastric reflux 10/21/2022 10/21/2022 Problem related to discharge planning 10/21/2022 10/21/2022 Depression 10/21/2022 10/21/2022 Coffee ground emesis 10/21/2022 10/21/2022 Alcoholic hepatitis 10/21/2022 10/21/2022 Acute upper gastrointestinal hemorrhage 10/22/19 23 10/21/2022 Acute renal failure 10/21/2022 10/21/2022 Acute pancreatitis [...] as of this encounter (statuses as of 04/08/2023) Immunizations Name Administration Dates Next Due COVID-19 mRNA, LNP-s, No Pre serve, 2-Dose Series ([employer]) 04/17/2021,08/22/2020 Covid-19, Mrna, Lnp-s, Pf, B ivalent, 30 Mcg, IM, 12 yrs and above ([employer]) 03/20/2022,09/25/2021 Hepatitis B, 20+ yrs 03/05/2021 Pneumococcal Conjugate Vacci ne, 20-valent ([id number]) 02/20/2023 Pneumococcal Polysaccharide PPV23 (Pneumovax) 03/19/2018 SEASONAL [...] as of this encounter Progress Notes * Krystin Graves MD - 04/08/2023 3:53 PM EDT ASSESSMENT / PLAN: Marcus Avelar is a 47 year old female COVID-19 virus infection (Primary) Panic attack - Mirtazapine 45 MG Oral Tablet (Remeron); Take 1 Tablet by mouth at bedtime. Polyarthralgia Myalgia Hoarseness Reviewed supportive care for post covid symptoms #Anxiety Celexa didn't work She'd like to continue mirtazapine at previous dose 45mg This was weaned to help with her cravings/hyperglycemia but she is not doing well emotionally off of it and would like to go back on it Subjective: Marcus Avelar is a 47 year old female. No chief complaint on file. Patient location: HOME. I was in a hospital or clinic location. After connecting through televideo,patient was verified with two unique identifiers. Patient (or authorized legal pharmaceutical service representative) was then informed that this was a Telemedicine visit and being conducted confidentially over secure lines. Methods to assure confidentiality were taken. Patient acknowledged consent and understanding of pr ivacy and security of the Telemedicine visit. The patient agreed to participate. After connecting to the patient via telephone, the patient was identified by name and date of . Patient was then informed that this was a telephone call only visit. The patient agreed to participate. Visit Disposition: Routine follow-up Total call duration was 21 minutes. HPI: here via video --> switched to telephonic due to connectivity issues - for follow up of Covid symptoms. She feels very poorly Covid test POS 03/25/23 she is trying to drink a lot of fluids Finished paxlovid +cough Yesterday started joint pains No fever +headaches - taking 2 ibuprofen overnight. Taking tessalon perles Taking 64 oz water daily Has been home for 2 weeks #Anxiety Celexa didn't work She'd like to continue mirtazapine at previous dose 45mg This was weaned to help with her cravings/hyperglycemia but she is not doing well emotionally off of it and would like to go back on it Patient Active Problem List Diagnosis Code ADVANCE DIRECTIVE INFORMATION Asthma, moderate persistent J45.40 Panic disorder F41.0 Alcoholism ([facility]) F10.20 Major depressive disorder, recurrent episode, moderate ([facility]) F33.1 DM type 2, not at goal ([facility]) E11.9 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 90 Tablet 1 Multiple Vitamins-Minerals (MULTIVITAMIN ADULT) TABS Take by mouth. Multivitamin Adult Oral Tablet 1 Tab. Fluticasone Propionate 50 MCG/ACT Nasal Suspension Administer 2 Sprays into each nostril daily as needed for Allergies, Congestion or Other (Eustacean tube dysfunction). 1 g 1 busPIRone HCl 10 MG Oral Tablet (Buspar) Take 1 Tablet by mouth 3 times a day as needed for Anxiety. Naltrexone HCl 50 MG Oral Tablet (Revia) Take 1 Tablet by mouth daily. 90 Tablet 3 BD Pen Needle Gertrude U/F 32G X 4 MM (Insulin Pen Needle) Use with insulin pens 4 times daily 400 Each1 Fluticasone-Salmeterol 250-50 MCG/ACT Inhalation Aerosol Powder Breath Activated (Advair Diskus) Inhale 1 Puff by mouth in the morning and 1 Puff before bedtime. 3 Each 3 NovoLIN 70/30 (70-30) 100 UNIT/ML Subcutaneous Suspension Inject 28 Units under the skin in the morning and 28 Units in the evening. 60 mL 3 Glycopyrrolate 1 MG Oral Tablet (Robinul) Take 1 Tablet by mouth 3 times a day as needed (sweating). 30 Tablet 1 Albuterol Sulfate HFA 108 (90 Base) MCG/ACT Inhalation Aerosol Solution Inhale 2 Puffs by mouth in the morning and 2 Puffs at noon and 2 Puffs in the evening and 2 Puffs before bedtime. Inhale 2 Puffs by mouth 4 times a day.. 18 g 5 Atorvastatin Calcium 20 MG Oral Tablet (Lipitor) Take 1 Tablet by mouth daily. 90 Tablet 3 LORazepam 0.5 MG Oral Tablet (Ativan) Take 1 Tablet by mouth 3 times a day as needed for Anxiety. 15 Tablet 0 Nirmatrelvir&Ritonavir 150/100 10 x 150 MG & 10 x 100MG Oral Tablet Therapy Pack (Paxlovid (150/100)) Take 1 pink tablet of Nirmatrelvir and 1 white tablet of Ritonavir two times a day by mouth. 20 Tablet 0 Benzonatate 100 MG Oral Capsule (Tessalon Perles) Take 1 Capsule by mouth 3 times a day as needed for Cough. Do not cut, crush, or chew. 50 Capsule 0 No current facility-administered medications for this visit. Objective: General: No acute distress. Neuro: Alert Pleasant & interactive. Respiratory: Good inspiratory effort, no labored breathing. HEENT: Conjunctivae appear clear. No swelling noted face or lips. Skin: No rash visible on exposed skin areas, normal coloration & appears dry. Psych: Normal affect. Fluent speech. Krystin Graves MD [facility], [place] [address] [address] [facility] [place] [address] documented in this encounter Plan of Treatment Upcoming Encounters Date Type Specialty Care Team Description 04/24/2023 Telemedicine Pharmacy [place] [id number] [place] [address] 06/10/2023 Hospital Encounter Endoscopy Angelo Rogers MD [address] [place] [address] 06/10/2023 Surgery Endoscopy Angelo Rogers MD [address] [place] [address] COLONOSCOPY FLEXIBLE PROXIMAL DIAGNOSTIC 07/14/2023 Office Visit Family Medicine Krystin Graves MD [address] [facility] [address] Scheduled Procedures Name Priority Associated Diagnoses Date/Ti [...] 08/21, 05/27/2020, Additional history exists COVID-19 Vaccine (2022- season) 2023 03/20/2022, 09/25/2021, 04/17/2021, Additional history exists Influenza Vaccine (FLU shot) (#1) 2023 03/13/2020, 04/22/2019, 04/22/2019, Additional history exists DIABETES-EYE EXAM 02/23/2023 02/23/2022 GFR 08/02/2023 08/02/2022, 0506/2020, 09/11/2020, Additional history exists DTaP,Tdap,and Td Vaccines [...] Visit Diagnoses Diagnosis COVID-19 virus infection- Primary Panic attack Panic disorder without agoraphobia Polyarthralgia Pain in joint, multiple sites Myalgia Mylagia and myositis, unspecified Hoarseness Dysphonia Special screening for malignant neoplasms, colon documented in this encounter Care Teams Law Office Receptionist Relationship Specialty Start Date End Date Krystin Graves MD [address], [place] [id number] PCP - General Family Medicine 10/21/22 documented as of this encounter
--- OUTSIDE RECORDS SUMMARY | 2023-06-30 12:03 | External Medical Summary | Summary of Care ---
Author Name Unknown Organization [facility] Address [address] [place] [address] Phone [phone] Care Team Providers Care Inventory Control Supervisor Name Role Phone Krystin Graves MD Primary Care Provid er Reason for Visit * Reason Comments Dosage Adjustment In Person (Anticoag Cl inic) Diabetes Encounter Details Date Type Department Care Team (Late st Contact Info) Description 04/24/2023 10:40 AM EDT Telemedicine Pharmacy, [address] [address] [facility] [address] [place] [address] DM type 2, not at goal (HCC)* Allergies Active Allergy Reactions Criticality Noted Date Comments Theophylline 04/30/2002 anxiety Theophylline Sodium Glycinate 2004 nervous documented as of this encounter (statuses as of 04/25/2023) Medications Medication Sig Dispensed Refills Start Date [...] Active Benzonatate 100 MG Oral Capsule (Tessalon Perles)Indications :COVID-19 virus infection Take 1 Capsule by [...] Anxiety. 15 Tablet 0 04/11/2023 Active FreeStyle [place] Lite w/Device KitIndications:DM type 2, not at [...] (Disposable))Indic ations:DM type 2, not at goal (HCC) Please use with Semglee insulin once daily E11.9 100 Each 3 04/24/2023 Active BD Pen Needle Gertrude U/F 32G X 4 MM (Insulin Pen Needle)Indications :DM type 2, not at goal (HCC) Use with Fiasp insulin three times daily E11.9 300 Each 3 04/24/2023 Active BD Pen Needle Gertrude U/F 32G X 4 MM (Insulin Pen Needle)Indications :DM type 2, not at goal (HCC) Use with insulin pens 4 times daily 400 Each 1 12/16/2022 3 Discontinu ed(Refill) NovoLIN 70/30 (70-30) 100 UNIT/ML Subcutaneous SuspensionIndicati ons:DM type 2, not at goal (HCC) Inject 28 Units under the skin in the morning and 28 Units in the evening. 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 . documented as of this encounter (statuses as of 04/25/2023) Resolved Problems Problem Noted Date Diagnosed Date [...] as of this encounter (statuses as of 04/25/2023) Immunizations Name Administration Dates Next Due COVID-19 mRNA, LNP-s, No Pre serve, 2-Dose Series ([employer]) 04/17/2021,08/22/2020 Covid-19, Mrna, Lnp-s, Pf, B ivalent, 30 Mcg, IM, 12 yrs and above ([employer]) 03/20/2022,09/25/2021 Hepatitis B, 20+ yrs 03/05/2021 Pneumococcal Conjugate Vacci ne, 20-valent ([id number]) 02/20/2023 Pneumococcal Polysaccharide PPV23 (Pneumovax) 03/19/2018 SEASONAL [...] money to buy more. Never true 01/04/20 Within the past 12 months, t he [...] Progress Notes * Devika Regan, [facility] - 04/23/2023 8:10 PM EDT Images from the original note were not included. Patient location: HOME. I was in a hospital or clinic location. After connecting through [employer]oostaro,patient was verified with two unique identifiers. Patient (or authorized legal indirect sales representative) was then informed that this was [...] return diabetic visit. DIABETES: Current diabetic medications: INC Novolin 70/30- 28 units in AM; 28 units in PM - 20-25 units once daily depending on meals (moreoften 20 unts) Medication Injection Site: Abdomen Lifestyle: Diet: reduced diet with having COVID-19 for 2 weeks earlier this month Glucose Review/SMBG: Readings obtained from patient device Hypoglycemia: Does your blood sugar go below 70 mg/dL? No Hyperglycemia symptoms present: polydipsia Recent Labs Units 08/02/22 0000 HEMOGLOBIN, [id number] LAB <5.7% 10.3* Recent Labs Units 08/02/22 [...] doses BG Readings - Blood sugars uncontrolled. Dexcom shows avg BS 377 and BS >250 99% of the time. Ptdue for updated A1c. Encouraged to obtain prior to f/u. Medications - Reviewed current regimen, patient is not adherent to regimen. Pt had COVID this past month and is only starting to feel better and regain appetite this past week. Pt was only giving herself 20 units BID of Novolin 70/30 while sick but when she has a full appetite gives herself 25 units. Pt still anxious that her BS will drop with higher doses of insulin. Reassured pt that hypoglycemia is unlikely to occur. Pt may benefit from Basal/bolus combination, however limited due to cost. For basal insulin, will start Semglee 35 units once daily which appears to be preferred by pt's insurance and more affordable alternative to Lantus. In terms of bolus insulin, will start Fiasp 5 units before each meal as this is also preferred by insurance. Informed pt to inform us if unaffordable. If that is the case can consider Basaglar and Humalog with [employer] Value Program (with insurance or jeffers). This will cost the patient $35/month per insulin. Pt agreeable to switch. Pt feels comfortable with technique of Semglee insulin vials as her Gulxwjh27/30 was also vial insulin. Educated and demonstrated how to administer Fiasp using insulin pen. Reviewed with pt that if she skips a meal to skip that dose of Fiasp. Patient interested in a Fiasp pen. Taught patient how to use insulin pen. Reviewed with patient individual steps to do before pen is ready to use: washing hands, removing protective seal from pen needle and screwing needle onto pen, and removing both outer and inner needle caps and making sure the dose selector is set at zero. Reviewed priming the pen with two units before each use. Reviewed dialing the pen to patient's dose. Reviewed proper injection technique. Patient verbalized understandingand displayed successful technique. Sent pharmacy Rx for Semglee and Humalog, as well as syringes and pen needles. Will follow up in 1 week to review insulin switch and discuss adjustments to pt's dosing regimen. Diet, Exercise, Lifestyle - reduced appetite earlier this month as pt was sick with COVID . Pt regained her appetite this past week. Patient is agreeable to Beth daily. Patient aware to contact clinic if any hypoglycemia before next visit. MEDICATION CHANGES: yes, see below; preferred pharmacy: [facility] Diabetic Medications: DISCONTINUE Novolin 70/30- 28 units in AM; 28 units in PM START Semglee 35 units once daily START Fiasp 5 units before breakfast, lunch, and dinner. HEALTH MAINTENANCE INTERVENTIONS: Labs: Up to Date Immunizations: eligible for flu and hep B series Foot Exam: Up to Date Eye Exam: due Annual Wellness Visit: N/A FOLLOW UP: Return to clinic in 1 week 05/01/2023 Devika Regan RPh Clinical Pharmacist - [facility] 04/23/2023, 8:10 PM documented in this encounter Plan of Treatment Upcoming Encounters Date Type Department Care Team (Latest Contact Info) Description 05/01/2023 3:40 PM [facility] Telemedicine Pharmacy, [address] [place] [address] [facility] [address] [facility] [place] [address] 06/10/2023 8:30 AM EST Hospital Encounter ENDO [facility], Endoscopy Room [facility] [address] [facility] [place] [phone] Angelo Rogers MD [address] [place] [address] 06/10/2023 8:30 AM EST - 06/10/2023 9:00 AM EST Surgery ENDO [facility], Endoscopy Room [facility] [address] [place] [phone] Angelo Rogers MD [address] [place] [address] COLONOSCOPY FLEXIBLE PROXIMAL DIAGNOSTIC 07/14/2023 1:40 PM EST Office Visit [facility] [address] [place] [facility] [place] [phone] Krystin Graves MD [address] [place] [address] Scheduled Procedures Name Priority Associated Diagnoses Date/Ti [...] Eye Exam 02/23/2023 02/23/2022 GFR 08/02/2023 08/02/2022, 0506/2020, 09/11/2020, [...] colon documented in this encounter Care Teams Inventory Control Supervisor Relationship Specialty Start Date End Date Krystin Graves MD [address] [place] [address] PCP - General Family Medicine 10/21/22 documented as of this encounter
--- OUTSIDE RECORDS SUMMARY | 2023-06-30 12:04 | External Medical Summary | Summary of Care ---
Author Name Unknown Organization [facility] Address [address] [place] [address] Phone [phone] Care Team Providers Care Shoe Treer Name Role Phone Krystin Graves MD Primary Care Provid er Reason for Visit * Reason Onset Date Comments FYI 02/21/2023 Encounter Details Date Type Department Care Team Description 02/21/2023 Telephone [facility] [address] [place] [address] Krystin Graves MD [address] [place] [address] FYI Allergies Active Allergy Reactions Severity Noted Date Comments Theophylline 04/30/2002 anxiety Theophylline Sodium Glycinate 2004 nervous documented as of this encounter (statuses as of 02/21/2023) Medications Medication Sig Dispensed Refills Start Date End Date Status Triamcinolone Acetonide 55 MCG/ACT Nasal Aerosol Administer into nostril. 0 Active Multiple Vitamins-Minerals (MULTIVITAMIN ADULT) TABS Take by mouth. 0 Active Pantoprazole Sodium 40 MG Oral Tablet Delayed Release (Protonix) Take 1 Tab by mouth daily. 30 min before breakfast 30 Tab 5 03/13/2020 Active Additional Information Patient not taking.Reported on 10/21/2022 Multivitamin Adult Oral Tablet 1 Tab. 0 07/27/2019 Active Fluticasone-Salmeter ol 250-50 MCG/DOSE Inhalation Aerosol Powder Breath Activated DAILY IN THE MORNING 0 02/27/2019 Active Fluticasone Propionate 50 MCG/ACT Nasal SuspensionIndication s:Suspected COVID-19 virus infection,Viral URI Administer 2 Sprays [...] mouth daily. 90 Tablet 3 10/21/2022 Active Mirtazapine 15 MG Oral Tablet (Remeron)Indications :Panic attack Take once a day for a week then stop. Part of wean. 7 Tablet 0 10/21/2022 Active Citalopram Hydrobromide 10 MG Oral Tablet (CeleXA)Indications: Panic attack Take 1 Tablet by mouth daily. 30 Tablet 5 10/21/2022 Active Additional Information Patient not taking.Reported on 02/11/2023 BD Pen Needle Gertrude U/F 32G X 4 MM (Insulin Pen Needle)Indications:D M type 2, not at goal ([facility]) Use with insulin pens 4 times daily 400 Each 1 12/16/2022 Active Fluticasone-Salmeter ol 250-50 MCG/ACT Inhalation Aerosol Powder Breath Activated (Advair Diskus)Indications:M oderate persistent asthma without complication Inhale 1 Puff by mouth in the morning and 1 Puff before bedtime. 3 Each 3 12/20/2022 Active NovoLIN 70/30 (70-30) 100 UNIT/ML Subcutaneous SuspensionIndication s:DM type 2, not at goal ([facility]) Inject 28 Units under the skin in the morning and 28 Units in the evening. 60 mL 3 01/23/2023 Active Glycopyrrolate 1 MG Oral Tablet (Robinul)Indications :Focal hyperhidrosis Take 1 Tablet by mouth 3 times a day as needed (sweating). 30 Tablet 1 02/11/2023 Active Albuterol Sulfate HFA 108 (90 Base) MCG/ACT Inhalation Aerosol SolutionIndications: Moderate persistent asthma without complication Inhale 2 Puffs by mouth in the morning and 2 Puffs at noon and 2 Puffs in the evening and 2 Puffs before bedtime. Inhale 2 Puffs by mouth 4 times a day.. 18 g 5 02/11/2023 Active Atorvastatin Calcium 20 MG Oral Tablet (Lipitor)Indications :Dyslipidemia, goal LDL below 70 Take 1 Tablet by mouth daily. 90 Tablet 3 02/11/2023 Active LORazepam 0.5 MG Oral Tablet (Ativan)Indications: Panic attack Take 1 Tablet by mouth 3 times a day as needed for Anxiety. 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 . documented as of this encounter (statuses as of 02/21/2023) Resolved Problems Problem Noted Date Resolved Date [...] as of this encounter (statuses as of 02/21/2023) Immunizations Name Administration Dates Next Due COVID-19 mRNA, LNP-s, No Pre serve, 2-Dose Series ([employer]) 04/17/2021,08/22/2020 Covid-19, Mrna, Lnp-s, Pf, B ivalent, 30 Mcg, IM, 12 yrs and above ([employer]) 03/20/2022,09/25/2021 Hepatitis B, 20+ yrs 03/05/2021 Pneumococcal Conjugate Vacci ne, 20-valent ([id number]) 02/20/2023 Pneumococcal Polysaccharide PPV23 (Pneumovax) 03/19/2018 Seasonal Influenza Virus Vac cine, Unspecified Formulation 04/22/2019,03/19/2018,04/07/2017,03/15,03/31/2013,05/04/2012,04/30/2006 ,05/08/2005,05/11/2003,05/05/2002 Seasonal Influenza, PF, 6 mo ns & Above, IM , (Flulaval) 03/13/2020,04/22/2019,03/19/2018 Seasonal Influenza, Quadrivalent, ID 04/07/2017 Seasonal [...] encounter Miscellaneous Notes * Telephone Encounter - Sandy Ybarra CPhT - 02/21/2023 12:21 PM EDT Frederic pharmacist advised of patients last and next office for controlled medication Thank you, Sandy Ybarra Fur Operator II [facility] Services ([facility]PS) (formerly Telepharmacy) 02/21/2023 12:21 PM documented in this encounter Plan of Treatment Upcoming Encounters Date Type Specialty Care Team Description 03/17/2023 Telemedicine [facility]acy [facility] [address] [address] 06/10/2023 Hospital Encounter Endoscopy Angelo Rogers MD [address] [place] [address] 06/10/2023 Surgery Endoscopy Angelo Rogers MD [address] [place] [address] COLONOSCOPY FLEXIBLE PROXIMAL DIAGNOSTIC 07/14/2023 Office Visit Family Medicine Krystin Graves MD [address] [place] [address] Scheduled Procedures Name Priority Associated Diagnoses Date/Ti me COLONOSCOPY FLEXIBLE PROXIMAL DIAGNOSTIC Special screening for malignant neoplasms, colon 06/10/2023 8:30 AM EST Health Maintenance Due Date Last Done Comments Depression Screening, Annual for Pts 12 and Over 08/03/2020 08/03/2019, 11/01/2014 (Discussed) Cologuard 11/18/2020 Colonoscopy 11/18/2020 Colorectal Cancer Screening 11/18/2020 Fecal Occult Blood Test 11/18/2020 Sigmoidoscopy 11/18/2020 Hepatitis B (2 of 3 - 19+ 3-dose series) 04/02/2021 03/05/2021 HbA1c 01/30/2023 08/02/2022, 08/21, 05/27/2020, Additional history exists Influenza Vaccine (FLU shot) (#1) 2023 03/13/2020, 04/22/2019, 04/22/2019, Additional history exists DIABETES-EYE EXAM 02/23/2023 02/23/2022 GFR 08/02/2023 08/02/2022, 10/23, 09/11/2020, Additional history exists DTaP,Tdap,and Td Vaccines (2 - Td or Tdap) 09/01/2023 08/31/2013, 10/09/2005, 10/09/2005, Additional history exists Albumin/Creatinine Ratio 10/22/2023 10/21/2022 DIABETES-FOOT EXAM 10/22/2023 10/21/2022, 06/14/2020 Mammogram 01/14/2024 01/13/2023, 01/22, 10/25/2016, Additional history exists Pap Smear 01/03/2026 01/03/2023, 09/2016, 09/24/2016, Additional history exists Lipid Panel 08/02/2027 08/02/2022, 10/10/2005 Cervical Cancer Screening 01/04/2028 HPV/Co-Test 01/04/2028 01/03/2023 Hepatitis C Screening Completed 10/10/2005 COVID-19 Vaccine Completed 03/20/2022, 10/2021, 04/17/2021, Additional history exists Pneumococcal Vaccine: Pediatrics (0 to 5 Years) [...] filedocumented as of this encounter Care Teams Shoe Treer Relationship Specialty Start Date End Date Krystin Graves MD [address] [place], [place] [id number] PCP - General Family Medicine 10/21/22 documented as of this encounter
--- OUTSIDE RECORDS SUMMARY | 2023-06-30 12:04 | External Medical Summary | Summary of Care ---
Author Name Unknown Organization [facility] Address [address] [place] [address] Phone [phone] Care Team Providers Care Forest Fire Equipment Operator Name Role Phone Sugar Meyer MD Primary Care Provid er Reason for Visit * Reason Onset Date Comments Medication Refill 03/24/2023 Status Check 03/24/2023 Encounter Details Date Type Department Care Team Description 03/24/2023 Refill [facility] [address] [place] [address] Sugar Meyer MD [address] [place] [address] Panic attack Allergies Active Allergy Reactions Severity Noted Date Comments Theophylline 04/30/2002 anxiety Theophylline Sodium Glycinate 2004 nervous documented as of this encounter (statuses as of 03/26/2023) Medications Medication Sig Dispensed Refills Start Date [...] Oral Tablet 1 Tab. 0 07/27/2019 Active Fluticasone-Salmete rol 250-50 MCG/DOSE Inhalation Aerosol Powder Breath Activated DAILY IN THE MORNING 0 02/27/2019 Active Fluticasone Propionate 50 MCG/ACT Nasal SuspensionIndicatio [...] mouth daily. 90 Tablet 3 10/21/2022 Active Citalopram Hydrobromide 10 MG Oral Tablet (CeleXA)Indications :Panic attack Take 1 Tablet by mouth daily. [...] mouth daily. 90 Tablet 3 02/11/2023 Active Mirtazapine 15 MG Oral Tablet (Remeron)Indication s:Panic attack Take once a day for a week then stop. Part of wean. 7 Tablet 0 03/19/2023 Active LORazepam 0.5 MG Oral Tablet (Ativan)Indications :Panic attack Take 1 Tablet by mouth 3 times a day as needed for Anxiety. 15 Tablet 0 03/26/2023 Active LORazepam 0.5 MG Oral Tablet (Ativan)Indications :Panic attack Take 1 Tablet by mouth 3 times a day as needed for Anxiety. 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 . documented as of this encounter (statuses as of 03/26/2023) Resolved Problems Problem Noted Date Resolved Date [...] as of this encounter (statuses as of 03/26/2023) Immunizations Name Administration Dates Next Due COVID-19 mRNA, LNP-s, No Pre serve, 2-Dose Series ([email or web address]) 04/17/2021,08/22/2020 Covid-19, Mrna, Lnp-s, Pf, B ivalent, 30 Mcg, IM, 12 yrs and above ([email or web address]) 03/20/2022,09/25/2021 HEP A - Hepatitis A (Adult > 18 yrs) 01/21/2001 Hepatitis B, 20+ yrs 03/05/2021 Pneumococcal Conjugate Vacci ne, 20-valent ([id number]) 02/20/2023 Pneumococcal Conjugate Vacci ne, 7 Valent 08/07/2000 Pneumococcal Polysaccharide PPV23 (Pneumovax) 03/19/2018 SEASONAL INFLUENZA, PF, 6 M & Above, IM , (FLULAVAL or FLUZONE) 03/13/2020,04/22/2019,03/19/2018 Seasonal Influenza Virus Vac cine, Unspecified Formulation 04/22/2019,03/19/2018,04/07/2017,03/15,03/31/2013,05/04/2012,04/30/2006 ,05/08/2005,05/11/2003,05/05/2002 Seasonal Influenza, Quadrivalent, ID 04/07/2017 Seasonal Influenza, Quadriva lent, No Preserve, IM 04/06/2015 Seasonal Influenza, Split, I IV3, With Preserve, Inj 03/15/2014,03/31/2013,05/04/2012,04/30,05/08/2005,05/11/2003,05/11/2003 ,05/05/2002 TD - Tetanus/Diptheria (ADULT) 10/09/2005,1994 TD, Preservative Free 10/09/2005 TDAP (age 10 and older)(Boostrix) 08/31/2013 Typhoid Vaccine Oral (Vivotif) 01/21/2001 documented as of this encounter Social History [...] encounter Miscellaneous Notes * Telephone Encounter - Elana Flood CPhT - 03/26/2023 3:05 PM EDT Patient calling to check on status of Rx reroute. Thank you, Elana Flood Pesticide Applicator [facility] 03/26/2023, 3:05 PM * Telephone Encounter - Corine Abreu [facility] - 03/26/2023 1:16 PM EDTPending Prescriptions: Disp Refills LORazepam 0.5 MG Oral Tablet (Ativan) 15 Tab*0 Sig: Take 1 Tablet by mouth 3 times a day as needed for Anxiety.Signed Prescriptions: Disp Refills LORazepam 0.5 MG Oral Tablet (Ativan) 15 Tab*0 Sig: Take 1 Tablet by mouth 3 times a day as needed for Anxiety.Authorizing Provider: SUGAR MEYER * Telephone Encounter - Corine Abreu RP - 03/26/2023 1:16 PM EDT Pharmacy did not have Rx in stock. Please reroute Rx to [facility] [address] [place] [address]. I have reviewed the patients controlled substance dispensing history in the Prescription Drug Monitoring Program in compliance with the [facility] regulations before prescribing a controlled substance. PDMP checked on 03/26/2023. Pending Prescriptions: Disp Refills LORazepam 0.5 MG Oral Tablet (Ativan) 15 Tab*0 Sig: Take 1 Tablet by mouth 3 times a day as needed for Anxiety. Signed Prescriptions: Disp Refills LORazepam 0.5 MG Oral Tablet (Ativan) 15 Tab*0 Sig: Take 1 Tablet by mouth 3 times a day as needed for Anxiety. Authorizing Provider: SUGAR MEYER Last Visit: 02/11/2023 (in office), Visit date not found (telemedicine) Next Visit: 07/14/2023 Date medication was last filled: 02/21/23 Date medication is due for refill: 02/24/23 Pharmacy: [facility] [address] [place] [address] Is this request for a controlled substance? [...] available upon request. Please approve if appropriate. Thanks, Corine Abreu [facility] Clinical Pharmacist Centralized Clinical Pharmacy Services (CCPS) (Formerly Telepharmacy) [phone] * Addendum Note - Elana Flood CPhT - 03/26/2023 1:15 PM EDTAddended by: ELANA FLOOD on: 03/26/2023 01:15 PM Modules accepted: Orders * Telephone Encounter - Elana Flood CPhT - 03/26/2023 1:14 PM EDT Pharmacy did not have Rx in stock. Please reroute Rx to [id number] [address] [facility]. Pending Prescriptions: Disp Refills LORazepam 0.5 MG Oral Tablet (Ativan) 15 Tab*0 Sig: Take 1 Tablet by mouth 3 times a day as needed for Anxiety. Signed Prescriptions: Disp Refills LORazepam 0.5 MG Oral Tablet (Ativan) 15 Tab*0 Sig: Take 1 Tablet by mouth 3 times a day as needed for Anxiety. Authorizing Provider: SUGAR MEYER Last Visit: 02/11/2023 (in office), Visit date not found (telemedicine) 07/14/2023 If no future appointments scheduled, and last appointment is greater than a year ago, please schedule patient for a follow-up appointment Last date the medication was ordered: 03/26/2023 Patient Phone Numbers Labs: Lab Results Component Value Date/Time CREAT 0.85 08/02/2022 12:00 AM CREAT 0.59 11/20/2020 10:52 AM POTASSIUM 4.1 08/02/2022 12:00 AM POTASSIUM 3.6 11/20/2020 10:52 AM TSH 1.92 08/02/2022 12:00 AM TSH 1.63 12/21/2003 10:28 AM LDLCALC 86 08/02/2022 12:00 AM LDLCALC 112 10/10/2005 08:25 AM ALT 46 11/20/2020 10:52 AM HGBA1C 10.3 (A) 08/02/2022 12:00 AM HGBA1C 5.2 09/07/2020 04:07 AM * Telephone Encounter - Sugar Meyer MD - 03/26/2023 8:09 AM EDT Signed Prescriptions: Disp Refills LORazepam 0.5 MG Oral Tablet (Ativan) 15 Tab*0 Sig: Take 1 Tablet by mouth 3 times a day as needed for Anxiety.Authorizing Provider: SUGAR MEYER------- * Telephone Encounter - Sugar Meyer MD - 03/26/2023 8:09 AM EDT Signed Prescriptions: Disp Refills LORazepam 0.5 MG Oral Tablet (Ativan) 15 Tab*0 Sig: Take 1 Tablet by mouth 3 times a day as needed for Anxiety. Authorizing Provider: SUGAR MEYER * Telephone Encounter - Tigist Gonzales CPhT - 03/26/2023 8:07 AM EDT Pt is asking for high priority because she has recently tested positive for COVID and has anxiety over it. Pt calling to check on status of LORazepam 0.5 MG Oral Tablet (Ativan) . Caller can be reached at [phone]. Thank you, Patricia Gonazles Ceramics Test Engineer I Centralized Clinical Pharmacy Services (CCPS) (Formerly Telepharmacy) 03/26/2023,8:07 AM * Telephone Encounter - Opal Buckner [facility] - 03/25/2023 7:46 AM EDTPending Prescriptions: Disp Refills LORazepam 0.5 MG Oral Tablet (Ativan) 15 Tab*0 Sig: Take 1 Tablet by mouth 3 times a day as needed for Anxiety. * Telephone Encounter - Opal Buckner [facility] - 03/25/2023 7:45 AM EDT I have reviewed the patients controlled substance dispensing history in the Prescription Drug Monitoring Program in compliance with the [facility] regulations before prescribing a controlled substance. PDMP checked on 03/25/2023. Pending Prescriptions: Disp Refills LORazepam 0.5 MG Oral Tablet (Ativan) 15 Tab*0 Sig: Take 1 Tablet by mouth 3 times a day as needed for Anxiety. Last Visit: 02/11/2023 (in office), Visit date not found (telemedicine) Next Visit: 07/14/2023 Date medication was last filled: 02/21/23 Date medication is due for refill: 02/25/23 Pharmacy: [facility] [address] [place] [address] [place] [address] Is this request for a controlled substance? [...] request. Please approve if appropriate. Thank you, Opal Buckner, PharmD Clinical Pharmacist Centralized Clinical Pharmacy Services (CCPS) (Formerly Telepharmacy) [phone] 03/25/2023, 7:45 AM documented in this encounter Plan of Treatment Upcoming Encounters Date Type Specialty Care Team Description 03/27/2023 Telemedicine Pharmacy [facility] [address] [place] [address] 06/10/2023 Hospital Encounter Endoscopy Angelo Rogers MD [address] [place] [address] 06/10/2023 Surgery Endoscopy Angelo Rogers MD [address] [place] [address] COLONOSCOPY FLEXIBLE PROXIMAL DIAGNOSTIC 07/14/2023 Office Visit Family Medicine Sugar Meyer MD [address] [place] [address] Scheduled Procedures Name Priority Associated Diagnoses Date/Ti [...] colon documented in this encounter Care Teams Forest Fire Equipment Operator Relationship Specialty Start Date End Date Sugar Meyer MD [address] [place] [address] PCP - General Family Medicine 10/21/22 documented as of this encounter
--- OUTSIDE RECORDS SUMMARY | 2023-06-30 12:04 | External Medical Summary | Summary of Care ---
Author Name Unknown Organization [facility] Address [address] [place] [address] Phone [phone] Care Team Providers Care Prepared Foods Production Team Member Name Role Phone Krystin Graves MD Primary Care Provid er Reason for Visit * Reason Onset Date Comments Med Request 03/26/2023 Encounter Details Date Type Department Care Team Description 03/26/[address] [facility] [address] [place] [address] Krystin Graves MD [address] [place] [address] Med Request Allergies Active Allergy Reactions Severity Noted Date [...] Needle)Indications:D M type 2, not at goal (HCC) Use [...] SuspensionIndication s:DM type 2, not at goal (HCC) Inject [...] 02/11/2023 Active Mirtazapine 15 MG Oral Tablet (Remeron)Indications :Panic attack Take once a day for a week then stop. Part of wean. 7 Tablet 0 03/19/2023 Active LORazepam 0.5 MG Oral Tablet (Ativan)Indications: Panic attack Take 1 Tablet by mouth 3 times a day as needed for Anxiety. 15 Tablet 0 03/26/2023 Active documented as of this encounter (statuses [...] mRNA, LNP-s, No Pre serve, 2-Dose Series ([employer]) 04/17/2021,08/22/2020 Covid-19, Mrna, Lnp-s, Pf, B ivalent, 30 Mcg, IM, 12 yrs and above ([employer]) 03/20/2022,09/25/2021 HEP A - Hepatitis A (Adult > 18 yrs) 01/21/2001 Hepatitis B, 20+ yrs 03/05/2021 Pneumococcal Conjugate Vacci ne, 20-valent ([id number]) 02/20/2023 Pneumococcal Conjugate Vacci ne, 7 Valent [...] Miscellaneous Notes * Telephone Encounter - Elana Alexis CPhT - 03/26/2023 1:16 PM EDT Patient calling to check on status of Rx request. Thank you, Elana Alexis Build Master [facility] 03/26/2023, 1:16 PM * Telephone Encounter - [place]ist Gonzales CPhT - 03/26/2023 8:03 AM EDT Pt calling with complaints of Positive for COVID and is requesting a medication be prescribed. Pt did not want to schedule an appointment at this time. Call details was completed, please refer to this for further information. Thank you, Patricia Gonzales It Telecom Technician I Centralized Clinical Pharmacy Services (CCPS) (Formerly Telepharmacy) 03/26/2023,8:03 AM documented in this encounter Plan of Treatment Upcoming Encounters Date Type Specialty Care Team Description 03/27/2023 Telemedicine Pharmacy [place] [address] [place] [address] 06/10/2023 Hospital Encounter Endoscopy Angelo Rogers MD [address] [place] [address] 06/10/2023 Surgery Endoscopy Angelo Rogers MD [address] [place] [address] COLONOSCOPY FLEXIBLE PROXIMAL DIAGNOSTIC 07/14/2023 Office Visit Family Medicine Krystin Graves MD [address] [facility] [place] [address] Scheduled Procedures Name Priority Associated Diagnoses Date/Ti [...] filedocumented as of this encounter Care Teams Prepared Foods Production Team Member Relationship Specialty Start Date End Date Krystin Graves MD [address] [place] [address] PCP - General Family Medicine 10/21/22 documented as of this encounter
--- OUTSIDE RECORDS SUMMARY | 2023-06-30 12:04 | External Medical Summary | Summary of Care ---
Author Name Unknown Organization [facility] Address [address] [place] [address] Phone [phone] Care Team Providers Care Parent Educator Name Role Phone Sugar Meyer MD Primary Care Provid er Reason for Visit * Reason Onset Date Comments Medication Refill 03/24/2023 Status Check 03/24/2023 Encounter Details Date Type Department Care Team Description 03/24/2023 Refill [facility] [address] [place] [address] Sugar Meyer MD [address] [place] [address] Panic attack Allergies Active Allergy [...] mRNA, LNP-s, No Pre serve, 2-Dose Series ([employer]) 04/17/2021,08/22/2020 Covid-19, Mrna, Lnp-s, Pf, B ivalent, 30 Mcg, IM, 12 yrs and above ([employer]) 03/20/2022,09/25/2021 Hepatitis B, 20+ yrs 03/05/2021 Pneumococcal Conjugate Vacci ne, 20-valent ([id number]) 02/20/2023 Pneumococcal Polysaccharide PPV23 (Pneumovax) 03/19/2018 SEASONAL [...] (Ativan) . Caller can be reached at [phone]. Thank you, Patricia Gonzales Justowriter Operator I Centralized Clinical Pharmacy Services (CCPS) (Formerly Telepharmacy) 03/26/2023,8:07 AM * Telephone Encounter - Opal Buckner [facility] - 03/25/2023 7:46 AM EDTPending Prescriptions: Disp Refills LORazepam 0.5 MG Oral Tablet (Ativan) 15 Tab*0 Sig: Take 1 Tablet by mouth 3 times a day as needed for Anxiety. * Telephone Encounter - Opal Buckner [facility] - 03/25/2023 7:45 AM EDT I have reviewed the patients controlled substance dispensing history in the Prescription Drug Monitoring Program in compliance with the [facility] regulations before prescribing a controlled substance. [...] for refill: 02/25/23 Pharmacy: [facility] [address] [place] [address] Is this request for a controlled substance? [...] Centralized Clinical Pharmacy Services (CCPS) (Formerly Telepharmacy) [phone] 03/25/2023, 7:45 AM documented in this encounter Plan of Treatment Upcoming Encounters Date Type Specialty Care Team Description 03/27/2023 Telemedicine Pharm[address] [address] 06/10/2023 Hospital Encounter Endoscopy Angelo Rogers MD [address] [place] [address] 06/10/2023 Surgery Endoscopy Angelo Rogers MD [address] [place] [address] COLONOSCOPY FLEXIBLE PROXIMAL DIAGNOSTIC 07/14/2023 Office Visit Family Medicine Sugar Meyer MD [address] [place] [address] Scheduled Procedures Name Priority Associated Diagnoses Date/Ti [...] colon documented in this encounter Care Teams Parent Educator Relationship Specialty Start Date End Date Sugar Meyer MD [address] [place] [address] PCP - General Family Medicine 10/21/22 documented as of this encounter
--- OUTSIDE RECORDS SUMMARY | 2023-06-30 12:04 | External Medical Summary | Summary of Care ---
Author Name Unknown Organization [facility] Address [address] [place] [address] Phone [phone] Care Team Providers Care Merchandising Director Name Role Phone Krystin Graves MD Primary Care Provid er Reason for Visit * Reason Onset Date Comments Advice 04/07/2023 Encounter Details Date Type Department Care Team Description 04/07/2023 Telephone [facility] [address] [place] [address] Krystin Graves MD [address] [place] [address] Advice Allergies Active Allergy Reactions Severity Noted Date Comments Theophylline 04/30/2002 anxiety Theophylline Sodium Glycinate 2004 nervous documented as of this encounter (statuses as of 04/07/2023) Medications Medication Sig Dispensed Refills Start Date [...] SuspensionIndicatio ns:DM type 2, not at goal ([facility]) Inject 28 Units under the skin in [...] for Anxiety. 15 Tablet 0 03/27/2023 Active Nirmatrelvir&Ritona vir 150/100 10 x 150 MG & 10 x 100MG Oral Tablet Therapy Pack (Paxlovid (150/100))Indicatio ns:Acute bronchitis due to COVID-19 virus Take 1 pink tablet of Nirmatrelvir and 1 white tablet of Ritonavir two times a day by mouth. 20 Tablet 0 03/27/2023 Active Benzonatate 100 MG Oral Capsule (Ioanaarsenioandrew Altagracia)Indications: COVID-19 virus infection Take 1 Capsule by mouth 3 times a day as needed for Cough. Do not cut, crush, or chew. 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 . documented as of this encounter (statuses as of 04/07/2023) Resolved Problems Problem Noted Date Resolved Date [...] as of this encounter (statuses as of 04/07/2023) Immunizations Name Administration Dates Next Due COVID-19 mRNA, LNP-s, No Pre serve, 2-Dose Series ([employer]) 04/17/2021,08/22/2020 Covid-19, Mrna, Lnp-s, Pf, B ivalent, 30 Mcg, IM, 12 yrs and above ([employer]) 03/20/2022,09/25/2021 Hepatitis B, 20+ yrs 03/05/2021 Pneumococcal Conjugate Vacci ne, 20-valent ([id number]) 02/20/2023 Pneumococcal Polysaccharide PPV23 (Pneumovax) 03/19/2018 SEASONAL [...] encounter Miscellaneous Notes * Telephone Encounter - Fay Wheeler LPN - 04/07/2023 4:54 PM EDT Pt calling due to having Covid for 2 weeks. Today her knees hurt, throbbing pain. No swelling, redness or hot. She also has headache in the back of her headache. No fever. She is drinking 64oz of fluid daily. She hasn't been eating much, no appetite. Pt has video visit scheduled for with Dr Graves 04/08 * Telephone Encounter - DELBERT Singh - 04/07/2023 4:51 PM EDT Reason for patient's call: Pt 2 weeks into covid. Video visit tomorrow. Knees hurt, talking about to ED Caller was transferred to Fabiana at the nurse line. documented in this encounter Plan of Treatment Upcoming Encounters Date Type Specialty Care Team Description 04/08/2023 Telemedicine Family Medicine Krystin Graves MD [address], [place] [id number] Arrived 04/24/2023 Telemedicine Pharmacy [facility] [address] [place] [address] 06/10/2023 Hospital Encounter Endoscopy Angelo Rogers MD [address] [place], [place] [address] 06/10/2023 Surgery Endoscopy Angelo Rogers MD [address] [place] [address] COLONOSCOPY FLEXIBLE PROXIMAL DIAGNOSTIC 07/14/2023 Office Visit Family Medicine Krystin Graves MD [address] [place] [address] Scheduled Procedures Name Priority Associated Diagnoses Date/Ti [...] filedocumented as of this encounter Care Teams Merchandising Director Relationship Specialty Start Date End Date Krystin Graves MD [address] [place] [address] PCP - General Family Medicine 10/21/22 documented as of this encounter
--- OUTSIDE RECORDS SUMMARY | 2023-06-30 12:04 | External Medical Summary | Summary of Care ---
Author Name Unknown Organization [facility] Address [address] [place] [address] Phone [phone] Care Team Providers Care Healthcare Facility Administrator Name Role Phone Krystin Graves MD Primary Care Provid er Reason for Visit * Reason Onset Date Comments Med Request 03/26/2023 Encounter Details Date Type Department Care Team Description 03/26/2023 Telephone Located Within [facility] [address] [place] [address] Krystin Graves MD [address] [place] [address] Med Request Allergies Active Allergy Reactions Severity Noted Date Comments Theophylline 04/30/2002 anxiety Theophylline Sodium Glycinate 2004 nervous documented as of this encounter (statuses as of 03/28/2023) Medications Medication Sig Dispensed Refills Start Date [...] needed for Anxiety. 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 . documented as of this encounter (statuses as of 03/28/2023) Resolved Problems Problem Noted Date Resolved Date [...] as of this encounter (statuses as of 03/28/2023) Immunizations Name Administration Dates Next Due COVID-19 mRNA, LNP-s, No Pre serve, 2-Dose Series ([employer]) 04/17/2021,08/22/2020 Covid-19, Mrna, Lnp-s, Pf, B ivalent, 30 Mcg, IM, 12 yrs and above ([employer]) 03/20/2022,09/25/2021 HEP A - Hepatitis A (Adult > 18 yrs) 01/21/2001 Hepatitis B, 20+ yrs 03/05/2021 Pneumococcal Conjugate Vacci ne, 20-valent ([id number]) 02/20/2023 Pneumococcal Conjugate Vacci ne, 7 Valent [...] Telephone Encounter - Krystin Graves MD - 03/28/2023 2:07 PM EDT Order placed yesterday. * Telephone Encounter - Elana Alexis CPhT - 03/26/2023 1:16 PM EDT Patient calling to check on status of Rx request. Thank you, Elana Alexis Furnace Operator And Tender [facility] 03/26/2023, 1:16 PM * Telephone Encounter - Tigist Gonzales CPhT - 03/26/2023 8:03 AM EDT Pt calling with complaints of Positive for COVID and is requesting a medication be prescribed. Pt did not want to schedule an appointment at this time. Call details was completed, please refer to this for further information. Thank you, Patricia Gonzales Dry Cleaner Hand [facility] ([facility]) (Formerly Telepharmacy) 03/26/2023,8:03 AM documented in this encounter Plan of Treatment Upcoming Encounters Date Type Specialty Care Team Description 04/24/2023 Telemedicine Pharmacy [facility] [address] [place] [address] 06/10/2023 Hospital Encounter Endoscopy Angelo Rogers MD [address] [place] [address] 06/10/2023 Surgery Endoscopy Angelo Rogers MD [address] [place] [address] COLONOSCOPY FLEXIBLE PROXIMAL DIAGNOSTIC 07/14/2023 Office Visit Family Medicine Krystin Graves MD [address] [place] [address] Scheduled Procedures Name Priority Associated Diagnoses Date/Ti [...] filedocumented as of this encounter Care Teams Healthcare Facility Administrator Relationship Specialty Start Date End Date Krystin Graves MD [address] [place] [facility] [place] [address] PCP - General Family Medicine 10/21/22 documented as of this encounter
--- OUTSIDE RECORDS SUMMARY | 2023-06-30 12:04 | External Medical Summary | Summary of Care ---
Author Name Unknown Organization [facility] Address [address] [place] [address] Phone [phone] Care Team Providers Care Front Man Name Role Phone Sugar Meyer MD Primary Care Provid er Reason for Visit * Reason Onset Date Comments Medication Refill 03/18/2023 Encounter Details Date Type Department Care Team Description 03/18/2023 Refill [facility] [address] [place] [address] Sugar Meyer MD [address] [place] [address] Panic attack Allergies Active Allergy Reactions Severity Noted Date Comments Theophylline 04/30/2002 anxiety Theophylline Sodium Glycinate 2004 nervous documented as of this encounter (statuses as of 03/19/2023) Medications Medication Sig Dispensed Refills Start Date [...] 02/11/2023 Active LORazepam 0.5 MG Oral Tablet (Ativan)Indications :Panic attack Take 1 Tablet by mouth 3 times a day as needed for Anxiety. 15 Tablet 0 02/21/2023 Active Mirtazapine 15 MG Oral Tablet (Remeron)Indication s:Panic attack Take once a day for a week then stop. Part of wean. 7 Tablet 0 03/19/2023 Active Mirtazapine 15 MG Oral Tablet (Remeron)Indication s:Panic attack Take once a day for a week then stop. Part of wean. 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 . documented as of this encounter (statuses as of 03/19/2023) Resolved Problems Problem Noted Date Resolved Date [...] as of this encounter (statuses as of 03/19/2023) Immunizations Name Administration Dates Next Due COVID-19 mRNA, LNP-s, No Pre serve, 2-Dose Series ([employer]) 04/17/2021,08/22/2020 Covid-19, Mrna, Lnp-s, Pf, B ivalent, 30 Mcg, IM, 12 yrs and above ([employer]) 03/20/2022,09/25/2021 Hepatitis B, 20+ yrs 03/05/2021 Pneumococcal Conjugate Vacci ne, 20-valent ([id number]) 02/20/2023 Pneumococcal Polysaccharide PPV23 (Pneumovax) 03/19/2018 Seasonal [...] Telephone Encounter - Sugar Meyer MD - 03/19/2023 3:39 PM EDT Signed Prescriptions: Disp Refills Mirtazapine 15 MG Oral Tablet (Remeron) 7 Tabl*0 Sig: Take once a day for a week then stop. Part of wean. Authorizing Provider: SUGAR MEYER * Telephone Encounter - Arnold Mock [facility] - 03/18/2023 9:43 PM EDT Pending Prescriptions: Disp Refills Mirtazapine 15 MG Oral Tablet (Remeron) 7 Tabl*0 Sig: Take once a day for a week then stop. Part of wean. Electronically signed by Arnold Mock [facility] at 03/18/2023 9:43 PM EDT documented in this encounter Plan of Treatment Upcoming Encounters Date Type Specialty Care Team Description 03/27/2023 Telemedicine [facility] [address] [place] [address] 06/10/2023 Hospital Encounter Endoscopy Angelo Rogers MD [address] [place] [address] 06/10/2023 Surgery Endoscopy Angelo Rogers MD [address] [place] [address] COLONOSCOPY FLEXIBLE PROXIMAL DIAGNOSTIC 07/14/2023 Office Visit Family Medicine Sugar Meyer MD [address] [place] [address] Scheduled Procedures Name Priority Associated Diagnoses Date/Ti [...] 01/30/2023 08/02/2022, 0301/2021, 05/27/2020, Additional history exists Influenza Vaccine (FLU [...] Cervical Cancer Screening 01/04/2028 HPV/Co-Test 01/04/2028 01/03/2023 COVID-19 Vaccine Completed 03/20/2022, 10/2021, 04/17/2021, Additional [...] colon documented in this encounter Care Teams Front Man Relationship Specialty Start Date End Date Sugar Meyer MD [address] [place] [facility] [place] [address] PCP - General Family Medicine 10/21/22 documented as of this encounter
--- OUTSIDE RECORDS SUMMARY | 2023-06-30 12:04 | External Medical Summary | Summary of Care ---
Author Name Unknown Organization [facility] Address [address] [place] [address] Phone [phone] Care Team Providers Care Manager Float Name Role Phone Sugar Meyer MD Primary Care Provid er Reason for Visit * Reason Onset Date Comments Medication Refill 03/24/2023 Status Check 03/24/2023 Encounter Details Date Type Department Care Team Description 03/24/2023 Refill [facility] [address] [place] [address] Sugar Meyer MD [address] [place] [address] Panic attack Allergies Active Allergy [...] mRNA, LNP-s, No Pre serve, 2-Dose Series ([employer]) 04/17/2021,08/22/2020 Covid-19, Mrna, Lnp-s, Pf, B ivalent, 30 Mcg, IM, 12 yrs and above ([employer]) 03/20/2022,09/25/2021 HEP A - Hepatitis A (Adult > 18 yrs) 01/21/2001 Hepatitis B, 20+ yrs 03/05/2021 Pneumococcal Conjugate Vacci ne, 20-valent ([id number]) 02/20/2023 Pneumococcal Conjugate Vacci ne, 7 Valent [...] as of this encounter Miscellaneous Notes * Addendum Note - Elana Flood CPhT - 03/26/2023 1:15 PM EDTAddended by: ELANA FLOOD on: 03/26/2023 01:15 PM Modules accepted: Orders * Telephone Encounter - Elana Flood CPhT - 03/26/2023 1:14 PM EDT Pharmacy did not have Rx in stock. Please reroute Rx to [id number] [address] [facility]. Pending Prescriptions: Disp Refills LORazepam 0.5 MG [...] (Ativan) . Caller can be reached at [phone]. Thank you, Patricia Gonzales Outreach Coordinator I [facility] ([facility]) (Formerly Telepharmacy) 03/26/2023,8:07 AM * Telephone Encounter - Opal Buckner RP - 03/25/2023 7:46 AM EDTPending Prescriptions: Disp Refills LORazepam 0.5 MG Oral Tablet (Ativan) 15 Tab*0 Sig: Take 1 Tablet by mouth 3 times a day as needed for Anxiety. * Telephone Encounter - Opal Buckner RPh - 03/25/2023 7:45 AM EDT I have reviewed the patients controlled substance dispensing history in the Prescription Drug Monitoring Program in compliance with the [facility] regulations before prescribing a controlled substance. PDMP [...] refill: 02/25/23 Pharmacy: [facility] [address] [place] [address] Is this request for a controlled substance? [...] [facility] ([facility]) (Formerly Telepharmacy) [phone] 03/25/2023, 7:45 AM documented in this encounter Plan of Treatment Upcoming Encounters Date Type Specialty Care Team Description 03/27/2023 Telemedicine Pharmacy [facility] [address] [address] 06/10/2023 Hospital Encounter Endoscopy Angelo Rogers MD [address] [place] [address] 06/10/2023 Surgery Endoscopy Angelo Rogers MD [address] [place] [address] COLONOSCOPY FLEXIBLE PROXIMAL DIAGNOSTIC 07/14/2023 Office Visit Family Medicine Sugar Meyer MD [address] [place] [facility] [place] [address] Scheduled Procedures Name Priority Associated Diagnoses Date/Ti [...] colon documented in this encounter Care Teams Manager Float Relationship Specialty Start Date End Date Sugar Meyer MD [address] [place] [address] PCP - General Family Medicine 10/21/22 documented as of this encounter
--- OUTSIDE RECORDS SUMMARY | 2023-06-30 12:04 | External Medical Summary | Summary of Care ---
Author Name Unknown Organization [facility] Address [address] [place] [address] Phone [phone] Care Team Providers Care Metal Bonding Press Operator Name Role Phone Krystin Graves MD Primary Care Provid er Reason for Visit * Reason Comments Dosage Adjustment In Person (Anticoag Cl inic) Diabetes Follow-Up Encounter Details Date Type Department Care Team Description 03/27/2023 Telemedicine Pharmacy, [place] [address] [place] [address] [facility] [address] [place] [address] DM type 2, not at goal ([facility])* Allergies Active Allergy Reactions Severity Noted Date Comments Theophylline 04/30/2002 anxiety Theophylline Sodium Glycinate 2004 nervous documented as of this encounter (statuses as of 03/27/2023) Medications Medication Sig Dispensed Refills Start Date [...] for Anxiety. 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 . documented as of this encounter (statuses as of 03/27/2023) Resolved Problems Problem Noted Date Resolved Date [...] 06/19/2018 023 Normal , first 08/31/2002 06/20/20 Asthma with severity to be determined 04/30/2002 08/21/2012 Overview: ICD-10 update of inactive term Anxiety 12/09/2018 Asthma with severity to be determined 03/19/2018 Overview: hospitalized for 2 days documented as of this encounter (statuses as of 03/27/2023) Immunizations Name Administration Dates Next Due COVID-19 mRNA, LNP-s, No Pre serve, 2-Dose Series ([employer]) 04/17/2021,08/22/2020 Covid-19, Mrna, Lnp-s, Pf, B ivalent, 30 Mcg, IM, 12 yrs and above ([employer]) 03/20/2022,09/25/2021 Hepatitis B, 20+ yrs 03/05/2021 Pneumococcal Conjugate Vacci ne, 20-valent ([id number]) 02/20/2023 Pneumococcal Polysaccharide PPV23 (Pneumovax) 03/19/2018 SEASONAL [...] this encounter Progress Notes * Elizabeth Rosario, [facility] - 03/27/2023 11:24 AM EDT Patient location: HOME. I was in a hospital or clinic location. After connecting through [employer],patient was verified with two unique identifiers. Patient (or authorized legal parts counter representative) was then informed that this was [...] units in AM; 28 units in PM patient has been taking 20-22 units daily; sometimes takes 15 units due to fear of dropping low eGFR 86 mL/min as of 01/30/23 Medication Injection Site: Abdomen Lifestyle: Diet: recently decreased due to COVID + Glucose Review/SMBG: Readings obtained from patient device Hypoglycemia: Does your blood sugar go below 70 mg/dL? No Hyperglycemia symptoms present: None reported Recent Labs Units 08/02/22 0000 HEMOGLOBIN, [id number] LAB <5.7% 10.3* Recent Labs Units 08/02/22 0000 EGFR-OUTSIDE LAB ML/MIN 86 CREATININE-OUTSIDE LAB MG/DL 0.85 HYPERTENSION: Patient on ACEi/ARB: no, not indicated per UACR on 10/21/22 BP Readings from Last 3 Encounters: 02/11/23 [...] (1) 02/21/2023 COVID-19 Vaccine (2022- season) 2023 DIABETES-EYE EXAM 02/23/2023 ASSESSMENT & PLAN: ICD-10-CM 1. DM type 2, not at goal (HCC) E11.9 Considerations: - hx of acute pancreatitis- avoiding GLPs at this time - jardiance caused vaginitis - unable to tolerate metformin due to N/V even at very lowest doses BG Readings - Blood sugars uncontrolled. Reviewed Beth download with patient. Average sugars 381 for the last 4 weeks. Patient expresses that she is anxious about her blood sugars plummeting, and for this reason, she will take lower doses of insulin. Reviewed with patient that her current recommended doses of insulin are unlikely to plummet her sugars, but rather get her sugars more in the 200 range. Patient notes that the last time that her blood sugars dropped was back in September, when she wasmore active. Denies that the sugars went below 70. Reviewed with patient her goal blood sugars, andwhen a low blood sugar would warrant a correction dose. Medications - Reviewed current regimen, patient is not adherent to regimen. Patient taking 15-20 units of insulin. Plan to look to changing to basal/bolus at next visit- patient wants to first use upher 70/30 supply. Encouraged patient to take 28 units twice daily of 70/30. Diet, Exercise, Lifestyle - Encouraged patient to eat veggies/salads . Discussed with patient to eat fruits in moderation. Patient is agreeable to SMBG with Voxel Beth Patient aware to contact clinic if any hypoglycemia before next visit. MEDICATION CHANGES: yes, see below; preferred pharmacy: [facility] Diabetic Medications: INC Novolin 70/30- 28 units in AM; 28 units in PM FOLLOW UP: Return to clinic in 4 weeks 04/24/2023 Elizabeth Rosario RPh Clinical Pharmacist - Shredder Tender [facility] 03/27/2023, 11:24 AM documented in this encounter Plan of Treatment Upcoming Encounters Date Type Specialty Care Team Description 04/24/2023 Telemedicine Pharmacy [facility] [address] [place] [address] 06/10/2023 Hospital Encounter Endoscopy Angelo Rogers MD [address] [place] [address] 06/10/2023 Surgery Endoscopy Angelo Rogers MD [address] [place] [address] COLONOSCOPY FLEXIBLE PROXIMAL DIAGNOSTIC 07/14/2023 Office Visit Family Medicine Krystin Graves MD [address] [place] [address] Scheduled Procedures Name Priority Associated Diagnoses Date/Ti [...] Additional history exists Pap Smear 01/03/2026 01/03/2023, 0409/2016, 09/24/2016, Additional history exists Lipid Panel 08/02/2027 [...] colon documented in this encounter Care Teams Metal Bonding Press Operator Relationship Specialty Start Date End Date [facility]in Graves [facility] [address] [facility] [address] PCP - General Family Medicine 5/1/23 documented as of this encounter
--- OUTSIDE RECORDS SUMMARY | 2023-06-30 12:04 | External Medical Summary | Summary of Care ---
Author Name Unknown Organization [facility] Address [address] [place] [address] Phone [phone] Care Team Providers Care Dressed Poultry Grader Name Role Phone Sugar Meyer MD Primary Care Provid er Reason for Visit * Reason Onset Date Comments Medication Refill 03/24/2023 Status Check 03/24/2023 Encounter Details Date Type Department Care Team Description 03/24/2023 Refill [facility] [address] [place] [address] Sugar Meyer MD [address] [place] [address] Panic attack Allergies Active Allergy [...] mRNA, LNP-s, No Pre serve, 2-Dose Series (Jimubox) 04/17/2021,08/22/2020 Covid-19, Mrna, Lnp-s, Pf, B ivalent, 30 Mcg, IM, 12 yrs and above (Jimubox) 03/20/2022,09/25/2021 HEP A - Hepatitis A (Adult > 18 yrs) 01/21/2001 Hepatitis B, 20+ yrs 03/05/2021 Pneumococcal Conjugate Vacci ne, 20-valent ([id number]) 02/20/2023 Pneumococcal Conjugate Vacci ne, 7 Valent [...] encounter Miscellaneous Notes * Telephone Encounter - Corine Abreu, [facility] - 03/26/2023 1:16 PM EDTPending [...] MEYER * Telephone Encounter - Corine Abreu [facility] - 03/26/2023 1:16 PM EDT Pharmacy did not have Rx in stock. Please reroute Rx to [facility] [address] [place] [address]. I have reviewed the patients controlled substance dispensing history in the Prescription Drug Monitoring Program in compliance with the [facility] regulations before prescribing a controlled [...] is due for refill: 02/24/23 Pharmacy: [facility] [address] [place] [address] Is this request for a controlled substance? [...] Please approve if appropriate. Thanks, Corine Abreu [facility] Clinical Pharmacist Centralized Clinical Pharmacy Services (CCPS) (Formerly Telepharmacy) [phone] * Addendum Note - Elana Flood CPhT - 03/26/2023 1:15 PM EDTAddended by: ELAAN FLOOD on: 03/26/2023 01:15 PM Modules accepted: Orders * Telephone Encounter - Elana Flood CPhT - 03/26/2023 1:14 PM EDT Pharmacy did not have Rx in stock. Please reroute Rx to [facility] [id number] Pending Prescriptions: Disp Refills LORazepam 0.5 MG [...] (Ativan) . Caller can be reached at [phone]. Thank you, Patricia Gonzales Pan Operator I [facility] Pharm[facility] Services ([facility]PS) (Formerly Telepharmacy) 03/26/2023,8:07 AM * Telephone Encounter - Opal Buckner [facility] - 03/25/2023 7:46 AM EDTPending Prescriptions: Disp Refills LORazepam 0.5 MG Oral Tablet (Ativan) 15 Tab*0 Sig: Take 1 Tablet by mouth 3 times a day as needed for Anxiety. * Telephone Encounter - Opal Buckner [facility] - 03/25/2023 7:45 AM EDT I have reviewed the patients controlled substance dispensing history in the Prescription Drug Monitoring Program in compliance with the [facility] regulations before prescribing a controlled [...] for refill: 02/25/23 Pharmacy: [facility] [address] [place] [address] Is this request for a controlled substance? [...] Centralized Clinical Pharmacy Services ([facility]PS) (Formerly Telepharmacy) [phone] 03/25/2023, 7:45 AM documented in this encounter Plan of Treatment Upcoming Encounters Date Type Specialty Care Team Description 03/27/2023 Telemedicine Pharmacy [facility] [address] [place] [address] 06/10/2023 Hospital Encounter Endoscopy Angelo Rogers MD [address] [place] [id number] 06/10/2023 Surgery Endoscopy Angelo Rogers MD [address] [place] [address] COLONOSCOPY FLEXIBLE PROXIMAL DIAGNOSTIC 07/14/2023 Office Visit Family Medicine Sugar Meyer MD [address] [place] [address] Scheduled Procedures Name Priority Associated Diagnoses Date/Ti [...] colon documented in this encounter Care Teams Dressed Poultry Grader Relationship Specialty Start Date End Date Sugar Meyer MD [address] [place] [address] PCP - General Family Medicine 10/21/22 documented as of this encounter
--- OUTSIDE RECORDS SUMMARY | 2023-06-30 12:04 | External Medical Summary | Summary of Care ---
Author Name Unknown Organization [facility] Address [address] [place] [address] Phone [phone] Care Team Providers Care Lens Polisher Hand Name Role Phone Krystin Graves MD Primary Care Provid er Reason for Visit * Reason Onset Date Comments Med Request 03/26/2023 Encounter Details Date Type Department Care Team Description 03/26/2023 Telephone [facility] [address] [place] [address] Krystin Graves MD [address] [place] [address] Med Request Allergies Active Allergy [...] mRNA, LNP-s, No Pre serve, 2-Dose Series (Ascletis) 04/17/2021,08/22/2020 Covid-19, Mrna, Lnp-s, Pf, B ivalent, 30 Mcg, IM, 12 yrs and above (Ascletis) 03/20/2022,09/25/2021 Hepatitis B, 20+ yrs 03/05/2021 Pneumococcal Conjugate Vacci ne, 20-valent ([id number]) 02/20/2023 Pneumococcal Polysaccharide PPV23 (Pneumovax) 03/19/2018 SEASONAL [...] encounter Miscellaneous Notes * Telephone Encounter - Tigist Gonzales CPhT - 03/26/2023 8:03 AM EDT Pt calling with complaints of Positive for COVID and is requesting a medication be prescribed. Pt did not want to schedule an appointment at this time. Call details was completed, please refer to this for further information. Thank you, Patricia Gonzales Metal Door Assembler I [facility] Pharm[facility] Services ([facility]PS) (Formerly Telepharmacy) 03/26/2023,8:03 AM documented in this encounter Plan of Treatment Upcoming Encounters Date Type Specialty Care Team Description 03/27/2023 [facility] [address] [facility] [address] [facility]/10/2023 Hospital Encounter Endoscopy Angelo Rogers MD [address] [place] [address] 06/10/2023 Surgery Endoscopy Angelo Rogers MD [address] [place] [address] COLONOSCOPY FLEXIBLE PROXIMAL DIAGNOSTIC 07/14/2023 Office Visit Family Medicine Krystin Graves MD [address] [place] [address] Scheduled Procedures Name Priority Associated Diagnoses Date/Ti [...] DIABETES-EYE EXAM 02/23/2023 02/23/2022 GFR 08/02/2023 08/02/2022, 05/06/2020, 09/11/2020, Additional history exists DTaP,Tdap,and Td Vaccines (2 - Td or Tdap) 09/01/2023 08/31/2013, 10/09/2005, 10/09/2005, Additional history exists Albumin/Creatinine Ratio 10/22/2023 10/21/2022 Diabetic Foot Exam 10/22/2023 10/21/2022, 06/14/2020 Mammogram 01/14/2024 01/13/2023, 08/, 10/25/2016, Additional history exists Pap Smear 01/03/2026 [...] filedocumented as of this encounter Care Teams Lens Polisher Hand Relationship Specialty Start Date End Date Krystin Graves MD [address] [place] [facility] [place] [address] PCP - General Family Medicine 10/21/22 documented as of this encounter
--- OUTSIDE RECORDS SUMMARY | 2023-06-30 12:05 | External Medical Summary | Summary of Care ---
Author Name Unknown Organization [facility] Address [address] [place] [address] Phone [phone] Care Team Providers Care Record Label Internship Name Role Phone Sugar Meyer MD Primary Care Provid er Reason for Visit * Reason Onset Date Comments Medication Refill 02/17/2023 Encounter Details Date Type Department Care Team Description 02/17/2023 Refill [facility] [address] [place] [address] Sugar Meyer MD [address] [place] [address] Panic attack Allergies Active Allergy [...] 10/21/2022 Active Mirtazapine 15 MG Oral Tablet (Remeron)Indication [...] for Anxiety. 15 Tablet 0 02/21/2023 Active LORazepam 0.5 MG Oral Tablet (Ativan)Indications :Panic attack Take 1 Tablet by mouth 3 times a day as needed for Anxiety. 15 Tablet 0 01/24/2023 Discontinue d(Refill) documented as of this encounter [...] mRNA, LNP-s, No Pre serve, 2-Dose Series ([employer]) 04/17/2021,08/22/2020 Covid-19, Mrna, Lnp-s, Pf, B ivalent, 30 Mcg, IM, 12 yrs and above ([employer]) 03/20/2022,09/25/2021 Hepatitis B, 20+ yrs 03/05/2021 Pneumococcal Polysaccharide PPV23 (Pneumovax) 03/19/2018 Seasonal Influenza [...] Telephone Encounter - Sugar Meyer MD - 02/21/2023 7:12 AM EDT Signed Prescriptions: Disp Refills LORazepam 0.5 MG Oral Tablet (Ativan) 15 Tab*0 Sig: Take 1 Tablet by mouth 3 times a day as needed for Anxiety. Authorizing Provider: SUGAR MEYER * Telephone Encounter - Corey Saez [facility] - 02/18/2023 8:27 AM EDTPending Prescriptions: Disp Refills LORazepam 0.5 MG Oral Tablet (Ativan) 15 Tab*0 Sig: Take 1 Tablet by mouth 3 times a day as needed for Anxiety. * Telephone Encounter - Corey Saez RPh - 02/18/2023 8:26 AM EDT I have reviewed the patients controlled substance dispensing history in the Prescription Drug Monitoring Program in compliance with the [facility] regulations before prescribing a controlled substance. PDMP checked on 02/18/2023. Pending Prescriptions: Disp Refills LORazepam 0.5 MG Oral Tablet (Ativan) 15 Tab*0 Sig: Take 1 Tablet by mouth 3 times a day as needed for Anxiety. Last Visit: 02/11/2023 (in office), Visit date not found (telemedicine) Next Visit: 07/14/2023 Date medication was last filled: 01/24/23 Date medication is due for refill: 01/28/23 Pharmacy: [facility] [address] [place] [address] Is this request for a controlled substance? [...] upon request. Please approve if appropriate. Thank You, Corey Acosta [facility] Clinical Pharmacist Centralized Clinical Pharmacy Services (CCPS) (formerly Telepharmacy) 02/18/2023, 8:26 AM documented in this encounter Plan of Treatment Upcoming Encounters Date Type Specialty Care Team Description 03/17/2023 [facility]icine [facility] [address] [place] [address] 06/10/2023 Hospital Encounter Endoscopy Angelo Rogers MD [address] [place] [address] 06/10/2023 Surgery Endoscopy Angelo Rogers MD [address] [place] [address] COLONOSCOPY FLEXIBLE PROXIMAL DIAGNOSTIC 07/14/2023 Office Visit Family Medicine Sugar Meyer MD [address] [place] [address] Scheduled Procedures Name Priority Associated Diagnoses Date/Ti [...] colon documented in this encounter Care Teams Record Label Internship Relationship Specialty Start Date End Date Sugar Meyer MD [address] [place] [address] PCP - General Family Medicine 10/21/22 documented as of this encounter
--- OUTSIDE RECORDS SUMMARY | 2023-06-30 12:05 | External Medical Summary | Summary of Care ---
Author Name Unknown Organization [facility] Address [address] [place] [address] Phone [phone] Care Team Providers Care Hearing Aid Repairer Name Role Phone Krystin Graves MD Primary Care Provid er Encounter Details Date Type Department Care Team Description 02/20/2023 Nurse Only Ancillary [facility] [place] [address] [place] [address] Nurse, Int Med [address] [facility] [place] [address] Arrived Allergies Active Allergy Reactions Severity Noted Date Comments Theophylline 04/30/2002 anxiety Theophylline Sodium Glycinate 2004 nervous documented as of this encounter (statuses as of 02/20/2023) Medications Medication Sig Dispensed Refills Start Date [...] Needle)Indications:D M type 2, not at goal ([facility]) Use with insulin pens 4 times daily 400 Each 1 12/16/2022 Active Fluticasone-Salmeter ol 250-50 MCG/ACT Inhalation Aerosol Powder Breath Activated (Advair Diskus)Indications:M oderate persistent asthma without complication Inhale 1 Puff by mouth in the morning and 1 Puff before bedtime. 3 Each 3 12/20/2022 Active LORazepam 0.5 MG Oral Tablet (Ativan)Indications: Panic attack Take 1 Tablet by mouth 3 times a day as needed for Anxiety. 15 Tablet 0 01/24/2023 Active NovoLIN 70/30 (70-30) 100 UNIT/ML Subcutaneous SuspensionIndication s:DM type 2, not at goal ([facility]) Inject 28 Units under the skin [...] mouth daily. 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 . documented as of this encounter (statuses as of 02/20/2023) Resolved Problems Problem Noted Date Resolved Date [...] as of this encounter (statuses as of 02/20/2023) Immunizations Name Administration Dates Next Due COVID-19 mRNA, LNP-s, No Pre serve, 2-Dose Series ([employer]) 04/17/2021,08/22/2020 Covid-19, Mrna, Lnp-s, Pf, B ivalent, 30 Mcg, IM, 12 yrs and above (Personera) 03/20/2022,09/25/2021 Hepatitis B, 20+ yrs 03/05/2021 Pneumococcal Conjugate Vacci ne, 20-valent ([id number]) 02/20/2023 Pneumococcal Polysaccharide PPV23 (Pneumovax) 03/19/2018 Seasonal [...] as of this encounter Progress Notes * Genaro Menendez LPN - 02/20/2023 1:35 PM EDT Pre-Administration Time Out Procedure Performed: Yes Patient Identified (Ask Name/Date of ): Yes Does the patient have a fever greater than 101 degrees today? No Patient allergic to latex? No Has the patient ever fainted after receiving an injection? No VFC Stock: No Immunization(s) verified: Yes, Immunization Name: Prevnar 20, VIS Sheet(s) given: Yes Verified Side and Site: Yes Verified Shot(s) with Parent(s)/Patient: Yes documented in this encounter Plan of Treatment Upcoming Encounters Date Type Specialty Care Team Description 03/17/2023 Telemedicine [facility] [address] [place] [address] 06/10/2023 Hospital Encounter Endoscopy Angelo Rogers MD [address] [place] [address] 06/10/2023 Surgery Endoscopy Angelo Rogers MD [address] [place] [address] COLONOSCOPY FLEXIBLE PROXIMAL DIAGNOSTIC 07/14/2023 Office Visit Family Medicine Krystin Graves MD [address] [place] [address] Scheduled Procedures Name Priority Associated Diagnoses Date/Ti me COLONOSCOPY FLEXIBLE PROXIMAL DIAGNOSTIC Special screening for malignant neoplasms, colon 06/10/2023 8:30 AM EST Health Maintenance Due Date Last Done Comments Pneumococcal Vaccine: Pediatrics (0 to 5 Years) and At-Risk Patients (6 to 64 Years) (2 - PCV) 03/19/2019 02/20/2023, 03/19/2018 Depression Screening, Annual for Pts 12 and [...] Completed 03/20/2022, 10/2021, 04/17/2021, Additional history exists GARDASIL-HPV IMMUNIZATION SERIES Aged Out No longer eligible based on patient's age to complete this topic MENINGOCOCCAL (MENACTRA/MENVEO) Aged Out No longer eligible based on patient's age to complete this topic documented as of this encounter Medical Devices Not on filedocumented as of this encounter Visit Diagnoses Diagnosis Moderate persistent asthma without complication- Primary Unspecified asthma Need for pneumococcal vaccination Need for prophylactic vaccination against streptococcus pneumoniae (pneumococcus) Special screening for malignant neoplasms, colon documented in this encounter Care Teams Hearing Aid Repairer Relationship Specialty Start Date End Date Krystin Graves MD [address] [place] [address] PCP - General Family Medicine 10/21/22 documented as of this encounter
--- OUTSIDE RECORDS SUMMARY | 2023-06-30 12:05 | External Medical Summary | Summary of Care ---
Author Name Unknown Organization [facility] Address [address] [place] [address] Phone [phone] Care Team Providers Care Character Impersonator Name Role Phone Krystin Graves MD Primary Care Provid er Reason for Visit * Reason Comments Dosage Adjustment In Person (Anticoag Cl inic) Diabetes Follow-Up Encounter Details Date Type Department Care Team Description 01/14/2023 Telemedicine Pharmacy, [place] [address] [place] [address] [facility] [address] [place] [address] DM type 2, not at goal (HCC)* Allergies Active Allergy Reactions Severity Noted Date Comments Theophylline 04/30/2002 anxiety Theophylline Sodium Glycinate 2004 nervous documented as of this encounter (statuses as of 01/14/2023) Medications Medication Sig Dispensed Refills Start Date End Date Status Triamcinolone Acetonide 55 MCG/ACT Nasal Aerosol Administer into nostril. 0 Active Multiple Vitamins-Minerals (MULTIVITAMIN ADULT) TABS Take by mouth. 0 Active Pantoprazole Sodium 40 MG Oral Tablet Delayed Release (Protonix) Take 1 Tab by mouth daily. 30 min before breakfast 30 Tab 5 03/13/2020 Active Additional Information Patient not taking.Reported on 10/21/2022 Albuterol Sulfate HFA 108 (90 Base) MCG/ACT Inhalation Aerosol Solution Inhale 2 Puffs by mouth 4 times a day. Inhale 2 Puffs by mouth 4 times a day. 18 g 5 06/14/2020 Active Multivitamin Adult Oral Tablet 1 Tab. 0 07/27/2019 Active Fluticasone-Salmet agatha 250-50 MCG/DOSE Inhalation Aerosol Powder Breath Activated DAILY IN THE MORNING 0 02/27/2019 Active Fluticasone Propionate 50 MCG/ACT Nasal SuspensionIndicati [...] 10/21/2022 Active Mirtazapine 15 MG Oral Tablet (Remeron)Indicatio ns:Panic attack Take once a day for a week then stop. Part of wean. 7 Tablet 0 10/21/2022 Active Citalopram Hydrobromide 10 MG Oral Tablet (CeleXA)Indication s:Panic attack Take 1 Tablet by mouth daily. 30 Tablet 5 10/21/2022 Active LORazepam 0.5 MG Oral Tablet (Ativan)Indication s:Panic attack Take 1 Tablet by mouth 3 times a day as needed for Anxiety. 15 Tablet 0 12/09/2022 Active BD Pen Needle Gertrude U/F 32G X 4 MM (Insulin Pen Needle)Indications :DM type 2, not at goal (HCC) Use with insulin pens 4 times daily 400 Each 1 12/16/2022 Active metFORMIN HCl ER 500 MG Oral Tablet Extended Release 24 Hour (Glucophage XR)Indications:Typ e 2 diabetes mellitus with hemoglobin A1c goal of less than 8.0% (HCC) Take 4 Tablets by mouth at bedtime. 360 Tablet 3 12/18/2022 Active Fluticasone-Salmet agatha 250-50 MCG/ACT Inhalation Aerosol Powder Breath Activated (Advair Diskus)Indications :Moderate persistent asthma without complication Inhale 1 Puff by mouth in the morning and 1 Puff before bedtime. 3 Each 3 12/20/2022 Active NovoLIN 70/30 (70-30) 100 UNIT/ML Subcutaneous Suspension Inject 24 Units under the skin in the morning and 24 Units in the evening. 0 12/20/2022 Active Insulin Glargine Solostar 100 UNIT/ML Subcutaneous Solution Pen-injector (Lantus SoloStar)Indicatio ns:DM type 2, not at goal (HCC) Inject 15 units once daily at the same time every day- stop 70/30 insulin 15 mL 1 12/16/2022 3 Discontinue d(Formulary /Cost) NovoLOG FlexPen 100 UNIT/ML Subcutaneous Solution Pen-injector (insulin aspart)Indications :DM type 2, not at goal (HCC) Inject 5 Units under the skin in the morning and 5 Units at noon and 5 Units in the evening. Inject with meals. Before each meal. Stop 70/30 insulin. 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 . documented as of this encounter (statuses as of 01/14/2023) Resolved Problems Problem Noted Date Resolved Date [...] as of this encounter (statuses as of 01/14/2023) Immunizations Name Administration Dates Next Due COVID-19 mRNA, LNP-s, No Pre serve, 2-Dose Series ([employer]) 04/17/2021,08/22/2020 Covid-19, Mrna, Lnp-s, Pf, B ivalent, 30 Mcg, IM, 12 yrs and above ([employer]) 03/20/2022,09/25/2021 Hepatitis B, 20+ yrs 03/05/2021 Pneumococcal Polysaccharide PPV23 (Pneumovax) 03/19/2018 Seasonal Influenza Virus Vac cine, Unspecified Formulation 04/22/2019,03/19/2018,04/07/2017,03/15,03/31/2013,05/04/2012,04/30/2006 ,05/08/2005,05/11/2003,05/05/2002 Seasonal Influenza, Quadrivalent, ID 04/07/2017 Seasonal Influenza, Quadriva lent, No Preserve, 6 Mons & Above, IM 03/13/2020,04/22/2019,03/19/2018 Seasonal Influenza, Quadriva lent, No Preserve, IM [...] at Date Recorded Female 10/21/2022 8:14 AM EDT Job Start Date Occupation Industry Not on file Not on file Not on file documented as of this encounter Progress Notes * Elizabeth Rosario, [facility] - 01/14/2023 10:00 AM EDT Images from the original note were not included. Patient location: HOME. I was in a hospital or clinic location. After connecting through televideo,patient was verified with two unique identifiers. Patient (or authorized legal correspondence representative) was then informed that this was [...] return diabetic visit. 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 No Hyperglycemia symptoms present: None reported by patient Recent Labs Units 08/02/22 0000 HEMOGLOBIN, [id number] LAB <5.7% 10.3* Recent Labs Units 08/02/22 0000 EGFR-OUTSIDE LAB ML/MIN 86 CREATININE-OUTSIDE LAB MG/DL 0.85 HYPERTENSION: Patient on ACEi/ARB: no, not indicated per UACR as of 10/21/22 BP Readings from Last 3 Encounters: 01/03/23 110/70 10/21/22 110/64 07/31/20 108/58 Blood pressure at goal: yes HYPERLIPIDEMIA: Patient is taking moderate or high intensity statin: No Current regimen: none Goal statin intensity: moderate The 10-year ASCVD risk score (Kathleen ÁLVAREZ, et al., 2019) is: 1% Values used to calculate the score: Age: 47 years Sex: Female Is Non- : No Diabetic: Yes Tobacco smoker: No Systolic Blood Pressure: 110 mmHg Is BP treated: No HDL Cholesterol: 60 MG/DL Total Cholesterol: 172 MG/DL Recent Labs Units 08/02/22 0000 LDL (CALCULATED)-OUTSIDE LAB MG/DL 86 HEALTH MAINTENANCE REVIEW: Health Maintenance Due Topic Date Due DIABETES-EYE EXAM Never done Mammogram 02/09/2019 Pneumococcal Vaccine: Pediatrics (0 to 5 Years) and At-Risk Patients (6 to 64 Years) (2 - PCV) 03/19/2019 Depression Screening, Annual for Pts 12 and Over 08/03/2020 Colorectal Cancer Screening Never done Hepatitis B (2 of 3 - 19+ 3-dose series) 04/02/2021 HbA1c 01/30/2023 ASSESSMENT & PLAN: ICD-10-CM 1. DM type 2, not at goal (HCC) E11.9 Considerations: - hx of acute pancreatitis- avoiding GLPs at this time - jardiance caused vaginitis - unable to tolerate metformin due to N/V even at very lowest doses BG Readings - Blood sugars uncontrolled. Reviewed with patient the importance of getting improved BG control. Patient notes that in the past she would have issues with lows because she was getting worried about the high blood sugars and she would take extra insulin (likely stacking) and then have asubsequent low. Advised patient against this, but did inform her that her BGs need to get below 300at least (currently averaging 393) and then below 200. Patient verbalized understanding of the importance of this. Medications - Reviewed current regimen, patient is not adherent to regimen. She is changing her PM dose of 70/30 insulin based on what she is eating. Advised patient against this, as 70/30 insulin should not be used with a sliding scale/carb counting necessarily. Will increase doses for both AM andPM meals. Cost continues to be an issue for patient. Despite using coupons, she reports that lantusand novolog are each over $100 copay. I do not think that she will be accepted by the PAP program for free insulin because she has insurance coverage. In the future, may need to look towards using N and R insulin for cost effective options rather than mixed insulin, but need to first be able to seewhat BG trends are on deni. Patient has PCP appointment 01/24, I plan to look at her deni data on 01/23 and send a staff message to PCP regarding her BG control, as I will not be in clinic on 01/24. Diet, Exercise, Lifestyle - Encouraged patient to increase her activity level as able. Encouraged patient to make decisions for her food that will help her better control her blood sugars. Discussedwith patient that these are areas that she can certainly take an active role in for her own health.She notes that she is already getting anxious about the cold weather coming. Notes that her mirtazapine makes her super hungry in the middle of the night. Patient is agreeable to SMBG with Freestyle deni daily. Patient aware to contact clinic if any hypoglycemia before next visit. MEDICATION CHANGES: yes, see below; preferred pharmacy: [facility] Diabetic Medications: INCNovolin 70/30- 24 units in AM; 24 units in PM eGFR 86 mL/min as of 01/30/23 HEALTH MAINTENANCE INTERVENTIONS: Labs: overdue for A1c Immunizations: eligible for hep b and pneumo Foot Exam: Up to Date Eye Exam: due Annual Wellness Visit: N/A FOLLOW UP: Return to clinic in 4 weeks 02/11/2023 Elizabeth Rosario [facility] Clinical Pharmacist - Sleep Medicine Physician Medication Therapy [facility] 01/14/2023, 10:00 AM documented in this encounter Plan of Treatment Upcoming Encounters Date Type Specialty Care Team Description 01/24/2023 Office Visit Family Medicine Krystin Graves MD [address] [place] [address] 02/11/2023 Telemedicine Pharmacy [facility] [address] [place] [address] 06/10/2023 Hospital Encounter Endoscopy Angelo Rogers MD [address] [place] [address] 06/10/2023 Surgery Endoscopy Angelo Rogers MD [address] [place] [address] COLONOSCOPY FLEXIBLE PROXIMAL DIAGNOSTIC Scheduled Procedures Name Priority Associated Diagnoses Date/Ti me COLONOSCOPY FLEXIBLE PROXIMAL DIAGNOSTIC Special screening for malignant neoplasms, colon 06/10/2023 8:30 AM EST Health Maintenance Due Date Last Done Comments DIABETES-EYE EXAM 11/18/1993 Mammogram 02/09/2019 02/09/2018, 0510/2016, 10/15/2016 Pneumococcal Vaccine: Pediatrics (0 to 5 Years) and At-Risk Patients (6 to 64 Years) (2 - PCV) 03/19/2019 03/19/2018 Depression Screening, Annual for Pts 12 and Over 08/03/2020 08/03/2019, 11/01/2014 (Discussed) Cologuard 11/18/2020 Colonoscopy 11/18/2020 Colorectal Cancer Screening 11/18/2020 Fecal Occult Blood Test 11/18/2020 Sigmoidoscopy 11/18/2020 Hepatitis B (2 of 3 - 19+ 3-dose series) 04/02/2021 03/05/2021 HbA1c 01/30/2023 08/02/2022, 03/01/2021, 05/27/2020, Additional history exists Influenza Vaccine (FLU shot) (#1) 2023 03/13/2020, 04/22/2019, 04/22/2019, Additional history exists GFR 08/02/2023 08/02/2022, 10/23, 09/11/2020, Additional history exists DTaP,Tdap,and Td Vaccines (2 - Td or Tdap) 09/01/2023 08/31/2013, 10/09/2005, 10/09/2005, Additional history exists Albumin/Creatinine Ratio 10/22/2023 10/21/2022 DIABETES-FOOT EXAM 10/22/2023 10/21/2022, 06/14/2020 Lipid Panel 08/02/2027 08/02/2022, 10/10/2005 Pap Smear 01/04/2028 01/03/2023, 09/2016, 09/24/2016, Additional history exists Hepatitis C Screening Completed 10/10/2005 COVID-19 Vaccine [...] colon documented in this encounter Care Teams Character Impersonator Relationship Specialty Start Date End Date Krystin Graves MD [address] [facility] [place] [address] PCP - General Family Medicine 10/21/22 documented as of this encounter
--- OUTSIDE RECORDS SUMMARY | 2023-06-30 12:05 | External Medical Summary | Summary of Care ---
Author Name Unknown Organization [facility] Address [address] [place] [address] Phone [phone] Care Team Providers Care Search Planner Name Role Phone Sugar Meyer MD Primary Care Provid er Reason for Visit * Reason Onset Date Comments Medication Refill 01/21/2023 Encounter Details Date Type Department Care Team Description 01/21/2023 Refill [facility] [address] [place] [address] Sugar Meyer MD [address] [place] [address] Panic attack Allergies Active Allergy Reactions Severity Noted Date Comments Theophylline 04/30/2002 anxiety Theophylline Sodium Glycinate 2004 nervous documented as of this encounter (statuses as of 01/24/2023) Medications Medication Sig Dispensed Refills Start Date [...] mouth daily. 30 Tablet 5 10/21/2022 Active BD Pen Needle Gertrude U/F 32G X 4 MM (Insulin Pen Needle)Indications :DM type 2, not at goal ([facility]) Use with insulin pens 4 times daily 400 Each 1 12/16/2022 Active Fluticasone-Salmet agatha 250-50 MCG/ACT Inhalation Aerosol Powder Breath Activated (Advair Diskus)Indications :Moderate persistent asthma without complication Inhale 1 Puff by mouth in the morning and 1 Puff before bedtime. 3 Each 3 12/20/2022 Active LORazepam 0.5 MG Oral Tablet (Ativan)Indication s:Panic attack Take 1 Tablet by mouth 3 times a day as needed for Anxiety. 15 Tablet 0 01/24/2023 Active LORazepam 0.5 MG Oral Tablet (Ativan)Indication s:Panic attack Take 1 Tablet by mouth 3 times a day as needed for Anxiety. 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 . documented as of this encounter (statuses as of 01/24/2023) Resolved Problems Problem Noted Date Resolved Date [...] as of this encounter (statuses as of 01/24/2023) Immunizations Name Administration Dates Next Due COVID-19 mRNA, LNP-s, No Pre serve, 2-Dose Series ([employer]) 04/17/2021,08/22/2020 Covid-19, Mrna, Lnp-s, Pf, B ivalent, [...] Telephone Encounter - Sugar Meyer MD - 01/24/2023 9:10 AM EDT Signed Prescriptions: Disp Refills LORazepam 0.5 MG Oral Tablet (Ativan) 15 Tab*0 Sig: Take 1 Tablet by mouth 3 times a day as needed for Anxiety. Authorizing Provider: SUGAR MEYER * Telephone Encounter - Tony Fiore [facility] - 01/21/2023 2:59 PM EDTPending Prescriptions: Disp Refills LORazepam 0.5 MG Oral Tablet (Ativan) 15 Tab*0 Sig: Take 1 Tablet by mouth 3 times a day as needed for Anxiety. * Telephone Encounter - Tony Fiore [facility] - 01/21/2023 2:58 PM EDT I have reviewed the patients controlled substance dispensing history in the Prescription Drug Monitoring Program in compliance with the [facility] regulations before prescribing a controlled substance. PDMP checked on 01/21/2023. Pending Prescriptions: Disp Refills LORazepam 0.5 MG Oral Tablet (Ativan) 15 Tab*0 Sig: Take 1 Tablet by mouth 3 times a day as needed for Anxiety. Last Visit: 01/03/2023 (in office), Visit date not found (telemedicine) Next Visit: 02/11/2023 Date medication was last filled: 12/09 Date medication is due for refill: 12/14 Pharmacy: [facility] [address] [place] [address] Is this request for a controlled substance? Yes and Urine Drug Screen was completed Toxicology results: Results for orders placed or performed in visit on 10/21/22 TOXICOLOGY, URINESCREEN W/O CONFIRMATION Result Value Amphetamine Negative Benzodiazepines [...] upon request. Please approve if appropriate. Thanks, Guero Fiore, PharmD Clinical Pharmacist [facility] ([facility]) (Formerly Telepharmacy) [phone] 01/21/2023 2:58 PM documented in this encounter Plan of Treatment Upcoming Encounters Date Type Specialty Care Team Description 02/11/2023 Office Visit Family Medicine Sugar Meyer MD [address] [place] [address] 02/11/2023 Telemedicine Pharmacy [facility] [address] [place] [address] 06/10/2023 Hospital Encounter Endoscopy Angelo Rogers MD [address] [place] [address] 06/10/2023 Surgery Endoscopy Angelo Rogers MD [address] [place] [address] COLONOSCOPY FLEXIBLE PROXIMAL DIAGNOSTIC Scheduled Procedures Name Priority Associated Diagnoses Date/Ti sd COLONOSCOPY FLEXIBLE PROXIMAL DIAGNOSTIC Special screening for [...] colon documented in this encounter Care Teams Search Planner Relationship Specialty Start Date End Date Sugar Meyer MD [address] [place] [address] PCP - General Family Medicine 10/21/22 documented as of this encounter
--- OUTSIDE RECORDS SUMMARY | 2023-06-30 12:05 | External Medical Summary | Summary of Care ---
Author Name Unknown Organization [facility] Address [address] [place] [address] Phone [phone] Care Team Providers Care Splicer Operator Name Role Phone Krystin Graves MD Primary Care Provid er Reason for Visit * Reason Onset Date Comments Health Maintenance 01/13/2023 Encounter Details Date Type Department Care Team Description 01/13/2023 Telephone [facility] [address] [place] [address] Krystin Graves MD [address] [place] [address] Health Maintenance Allergies Active Allergy Reactions Severity Noted Date Comments Theophylline 04/30/2002 anxiety Theophylline Sodium Glycinate 2004 nervous documented as of this encounter (statuses as of 01/13/2023) Medications Medication Sig Dispensed Refills Start Date [...] 10/21/2022 Active LORazepam 0.5 MG Oral Tablet (Ativan)Indications :Panic attack Take 1 Tablet by mouth 3 times a day as needed for Anxiety. 15 Tablet 0 12/09/2022 Active Insulin Glargine Solostar 100 UNIT/ML Subcutaneous Solution Pen-injector (Lantus SoloStar)Indication s:DM type 2, not at goal (HCC) Inject 15 units once daily at the same time every day- stop 70/30 insulin 15 mL 1 12/16/2022 Active Additional Information Patient not taking.Reported on 01/03/2023 NovoLOG FlexPen 100 UNIT/ML Subcutaneous Solution Pen-injector (insulin aspart)Indications: DM type 2, not at goal (HCC) Inject 5 Units under the skin in the morning and 5 Units at noon and 5 Units in the evening. Inject with meals. Before each meal. Stop 70/30 insulin. 15 mL 1 12/16/2022 Active BD Pen Needle Gertrude U/F 32G X 4 MM (Insulin Pen Needle)Indications: DM type 2, not at goal (HCC) Use with insulin pens 4 times daily 400 Each 12/16/2022 Active metFORMIN HCl ER 500 MG Oral Tablet Extended Release 24 Hour (Glucophage XR)Indications:Type 2 diabetes mellitus with hemoglobin A1c goal of less than 8.0% (HCC) Take 4 Tablets by mouth at bedtime. 360 Tablet 3 12/18/2022 Active Fluticasone-Salmete rol 250-50 MCG/ACT Inhalation Aerosol Powder Breath Activated (Advair Diskus)Indications: Moderate persistent asthma without complication Inhale 1 Puff by mouth in the morning and 1 Puff before bedtime. 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 . documented as of this encounter (statuses as of 01/13/2023) Resolved Problems Problem Noted Date Resolved Date [...] as of this encounter (statuses as of 01/13/2023) Immunizations Name Administration Dates Next Due COVID-19 mRNA, LNP-s, No Pre serve, 2-Dose Series ([employer]) 04/17/2021,08/22/2020 Covid-19, Mrna, Lnp-s, Pf, B ivalent, [...] encounter Miscellaneous Notes * Telephone Encounter - Kalpana Felton LPN - 01/13/2023 9:25 AM EDT Care Gaps Comprehensive Care Outreach Last Office/Telemedicine Visit: 01/03/2023 (in office), Visit date not found (telemedicine) Next Office Visit: 01/24/2023 Hemoglobin AIC Results: No results found for: HEMOGLOBIN A1C Reviewed Health Maintenance below: Health Maintenance Topic Date Due DIABETES-EYE EXAM Never done Mammogram 02/09/2019 Pneumococcal Vaccine: Pediatrics (0 to 5 Years) and At-Risk Patients (6 to 64 Years) (2 - PCV) 03/19/2019 Depression Screening, Annual for Pts 12 and Over 08/03/2020 Colorectal Cancer Screening Never done Hepatitis B (2 of 3 - 19+ 3-dose series) 04/02/2021 HbA1c 01/30/2023 Influenza Vaccine (FLU shot) (1) 02/21/2023 Eye my g Mamm already scheduled Colon already scheduled Labs already scheduled Care Gap Outreach Action Taken: Myportal message sent documented in this encounter Plan of Treatment Upcoming Encounters Date Type Specialty Care Team Description 01/14/2023 Telemedicine Pharmacy [facility] [address] [place] [address] 01/24/2023 Office Visit Family Medicine Krystin Graves MD [address], [place] [address] 06/10/2023 Hospital Encounter Endoscopy Angelo Rogers MD [address] [place] [address] 06/10/2023 Surgery Endoscopy Angelo Rogers MD [address] [place] [address] COLONOSCOPY FLEXIBLE PROXIMAL DIAGNOSTIC Scheduled Procedures Name Priority Associated Diagnoses Date/Ti me COLONOSCOPY FLEXIBLE PROXIMAL DIAGNOSTIC Special screening for malignant neoplasms, colon 06/10/2023 8:30 AM EST Health Maintenance Due Date Last Done Comments DIABETES-EYE EXAM 11/18/1993 Mammogram 02/09/2019 02/09/2018, 10/2016, 10/15/2016 Pneumococcal Vaccine: Pediatrics (0 to 5 [...] filedocumented as of this encounter Care Teams Splicer Operator Relationship Specialty Start Date End Date Krystin Graves MD [address] [place] [address] PCP - General Family Medicine 10/21/22 documented as of this encounter
--- OUTSIDE RECORDS SUMMARY | 2023-06-30 12:05 | External Medical Summary | Summary of Care ---
Author Name Unknown Organization [facility] Address [address] [place] [address] Phone [phone] Care Team Providers Care Enterprise Account Executive Name Role Phone Krystin Graves MD Primary Care Provid er Reason for Visit * Reason Onset Date Comments Health Maintenance 01/13/2023 Encounter Details Date Type Department Care Team Description 01/13/2023 Telephone [facility] [address] [place] [address] Krystin Graves MD [address] [place] [address] Health Maintenance Allergies Active Allergy [...] mRNA, LNP-s, No Pre serve, 2-Dose Series ([employer]) 04/17/2021,08/22/2020 Covid-19, Mrna, Lnp-s, Pf, B ivalent, [...] Encounters Date Type Specialty Care Team Description 01/13/2023 Imaging Radiology 01/14/2023 Telemedicine Pharmacy [facility] [address] [place] [phone] (Work) 01/24/2023 Office Visit Family Medicine rKystin Graves MD [address] [place] [address] 06/10/2023 Hospital Encounter Endoscopy Angelo Rogers MD [address] [place] [address] 06/10/2023 Surgery Endoscopy Angelo Rogers MD [address] [place] [address] COLONOSCOPY FLEXIBLE PROXIMAL DIAGNOSTIC Scheduled Procedures Name [...] filedocumented as of this encounter Care Teams Enterprise Account Executive Relationship Specialty Start Date End Date Krystin Graves MD [address] [place] [facility] [place] [address] PCP - General Family Medicine 10/21/22 documented as of this encounter
--- OUTSIDE RECORDS SUMMARY | 2023-06-30 12:05 | External Medical Summary | Summary of Care ---
Author Name Unknown Organization [facility] Address [address] [place] [address] Phone [phone] Care Team Providers Care Curriculum Advisory Teacher Name Role Phone Krystin Graves MD Primary Care Provid er Reason for Visit * Reason Comments Physical-Exam Annual f/u Encounter Details Date Type Department Care Team Description 02/11/2023 Office Visit [facility] [address] [place] [address] Krystin Graves MD [address] [place] [address] Focal hyperhidrosis*; Dyslipidemia, goal LDL below 70; Need for pneumococcal vaccination; DM type 2, not at goal (HCC); Major depressive disorder, recurrent episode, moderate (HCC); Alcoholism ([facility]); Moderate persistent asthma without complication Allergies Active Allergy Reactions Severity Noted Date Comments Theophylline 04/30/2002 anxiety Theophylline Sodium Glycinate 2004 nervous documented as of this encounter (statuses as of 02/11/2023) Medications Medication Sig Dispensed Refills Start Date [...] 12/20/2022 Active LORazepam 0.5 MG Oral Tablet (Ativan)Indications [...] mouth daily. 90 Tablet 3 02/11/2023 Active Albuterol Sulfate HFA 108 (90 Base) MCG/ACT Inhalation Aerosol Solution Inhale 2 Puffs by mouth 4 times a day. Inhale 2 Puffs by mouth 4 times a day. 18 g 5 06/14/2020 Discontinue d(Refill) documented as of this encounter (statuses as of 02/11/2023) Active Problems Problem Noted Date Carrier of methicillin resistant Staphyl ococcus aureus (MRSA) 10/21/2022 DM type 2, not at goal 03/13/2020 Major depressive disorder, recurrent epi sode, moderate 08/03/2019 Alcoholism 05/13/2019 Panic disorder 12/09/2018 Asthma, moderate persistent 08/21/2012 ADVANCE DIRECTIVE INFORMATION 12/03/2007 Overview: No, Advance Directive brochure offered , patient declined. . documented as of this encounter (statuses as of 02/11/2023) Resolved Problems Problem Noted Date Resolved Date [...] as of this encounter (statuses as of 02/11/2023) Immunizations Name Administration Dates Next Due COVID-19 mRNA, LNP-s, No Pre serve, 2-Dose Series ([employer]) 04/17/2021,08/22/2020 Covid-19, Mrna, Lnp-s, Pf, B ivalent, 30 Mcg, IM, 12 yrs and above ([employer]) 03/20/2022,09/25/2021 Hepatitis B, 20+ yrs 03/05/2021 Pneumococcal [...] Passive Smoke Exposure: Never Smokeless Tobacco: Never Tobacco Cessation:Counseling Given: Not Answered Alcohol Use Standard Drinks/Week Comments Yes 0 [...] on file documented as of this encounter Last Filed Vital Signs Vital Sign Reading Time Taken Comments Blood Pressure 124/82 02/11/2023 10:51 AM EDT Pulse 115 02/11/2023 10:51 AM EDT Temperature 36.3 C (97.3 F) 02/11/2023 1 0:51 AM EDT Respiratory Rate 16 02/11/2023 10:5 1 AM EDT Oxygen Saturation 95% 02/11/2023 10: 51 AM EDT Inhaled Oxygen Concentration - - Weight 80.7 kg (177 lb 14.4 oz) 023 10:51 AM EDT Height - - Body Mass Index 32.54 01/03/2023 2:45 PM EDT documented in this encounter Progress Notes * Krystin Graves MD - 02/11/2023 11:10 AM EDT ASSESSMENT / PLAN: Marcus Avelar is a 47 year old female with PMHx alcoholism / hepatitis / h/o acute pancreatitis and REG / diabetes insulin dependent - here for recheck #Alcoholism, early remission 2014 - 2021 Stable on 50mg naltrexone daily Attends [employer] online Reported h/o alcoholic hepatitis/pancreatitis/cirrhosis - labs have all normalized #Anxiety Stable, Complicated by panic attacks Urine tox completed and normal, agree to #15 lorazepam monthly as needed for panic attacks Recommend wean off mirtazapine given uncontrolled eating and high A1C Transition to citalopram - could also consider wellbutrin in future. F/u via MyG #T2DM Neg MORIS 65/normal c pep so this is true T2DM Last A1C >10 Following with MTM, titrating insulin Obesity Trial wellbutrin TBD in future Incr walking HLD Start statin Screenings/anticipatory guidance reviewed include if applicable nutrition, family planning/contraception, physical activity, healthy weight, injury prevention, misuse of tobacco, alcohol and drugs, sexual behavior and STDs, dental health, mental health, immunizations, age appropriate screenings: Next colon ca screening - due - colonoscopy pending Next cervical ca screening - pap in 5 years so 2027 Annual mammograms UTD Follow-up: Return in about 6 months (around 08/14/2023). | Check-out note: Labs today too Labs week before next visit in 6 mo Focal hyperhidrosis (Primary) - Glycopyrrolate 1 MG Oral Tablet (Robinul); Take 1 Tablet by mouth 3 times a day as needed (sweating). Dyslipidemia, goal LDL below 70 - Atorvastatin Calcium 20 MG Oral Tablet (Lipitor); Take 1 Tablet by mouth daily. Need for pneumococcal vaccination - PNEUMOCOCCAL VACC, PCV20, IM ([id number]); Future; Expected date: 02/12/2023 DM type 2, not at goal (HCC) - HEMOGLOBIN A1C; Future; Expected date: 08/14/2023 Major depressive disorder, recurrent episode, moderate (HCC) Alcoholism (HCC) Moderate persistent asthma without complication - Albuterol Sulfate HFA 108 (90 Base) MCG/ACT Inhalation Aerosol Solution; Inhale 2 Puffs by mouth in the morning and 2 Puffs at noon and 2 Puffs in the evening and 2 Puffs before bedtime. Inhale 2 Puffs by mouth 4 times a day.. - PNEUMOCOCCAL VACC, PCV20, IM ([id number]); Future; Expected date: 02/12/2023 Follow-up: Return in about 6 months (around 08/14/2023). | Check-out note: Labs today too Labs week before next visit in 6 mo If needed, prefers contact by: Ok to leave message on phone: SUBJECTIVE: Nursing Notes: Therese Melton, LAURA 02/11/23 1051 Sign at exiting of workspace Chief Complaint Patient presents with Physical-Exam Annual f/u Patient would like to discuss medications. HPI: Marcus Avelar is a 47 year old female. Here for recheck. Over all doing well. Anticipating moodworsening this winter. Latest Reference Range & Units 08/02/22 00:00 HEMOGLOBIN, C4V-EROUBPN LAB <5.7% 10.3 ! (E) !: Data is abnormal (E): External lab result Latest Reference Range & Units 11/20/20 10:52 CO2-OUTSIDE LAB 21 - 32 mmol/L 23 (E) SODIUM-OUTSIDE LAB 136 - 145 mmol/L 139 (E) POTASSIUM-OUTSIDE LAB 3.5 - 5.1 mmol/L 3.6 (E) CHLORIDE-OUTSIDE LAB 98 - 107 mmol/L 108 (H) (E) BUN-OUTSIDE LAB 7 - 18 mg/dL 7 (E) CREATININE-OUTSIDE LAB 0.40 - 1.00 mg/dL 0.59 (E) ANION GAP-OUTSIDE LAB 3 - 11 8 (E) GLUCOSE-OUTSIDE LAB 70 - 100 mg/dL 138 (H) (E) CALCIUM-OUTSIDE LAB 8.5 - 10.1 mg/dL 10.3 (H) (E) MAGNESIUM-OUTSIDE LAB 1.8 - 2.4 mg/dL 1.6 (L) (E) PT-OUTSIDE LAB 12.0 - 14.6 sec 17.6 (H) (E) CBC Rpt ! (E) AST-OUTSIDE LAB 15 - 37 U/L 112 (H) (E) ALT-OUTSIDE LAB 12 - 78 U/L 46 (E) ALKALINE PHOSPHATASE-OUTSIDE LAB 45 - 117 U/L 156 (H) (E) ALBUMIN, SERUM - OUTSIDE LAB 3.4 - 5.0 g/dL 3.7 (E) BILIRUBIN, TOTAL - OUTSIDE LAB 0.2 - 1.0 mg/dL 1.9 (H) (E) EGFR - OUTSIDE LAB >60 129 (E) EGFR NON- - OUTSIDE LAB >60 111 (E) INR - OUTSIDE LAB 1.5 (E) LACTATE - OUTSIDE LAB 0.4 - 2.0 mmol/L 1.1 (E) TOTAL PROTEIN - OUTSIDE LAB 6.4 - 8.2 g/dL 7.8 (E) (H): Data is abnormally high (L): Data is abnormally low !: Data is abnormal (E): External lab result Rpt: View report in Results Review for more information Latest Reference Range & Units 10/21/22 10:16 TOXICOLOGY, URINE SCREEN W/O CONFIRMATION Rpt Amphetamine Negative Negative Benzodiazepines Negative Negative Cannabinoids Negative Negative Cocaine Metabolite Negative Negative Fentanyl Negative Negative Hydrocodone / Hydromorphone Negative Negative Methadone Metabolite Negative Negative Morphine / Codeine Negative Negative Oxycodone / Oxymorphone Negative Negative Albumin / Creatinine Ratio, Urine <30 mg/g Creat 21 ALBUMIN / CREATININE RATIO, URINE Rpt Albumin, Random Urine mg/dL 1.91 Creatinine, Random Urine mg/dL 93 Rpt: View report in Results Review for more information Reviewed sources 1-MTM 01/14/23 - issues with cost and med intolerance - "- hx of acute pancreatitis- avoiding GLPs at this time - jardiance caused vaginitis - unable to tolerate metformin due to N/V even at very lowest doses" "Diabetic Medications: INC Novolin 70/30- 24 units in AM; 24 units in PM eGFR 86 mL/min as of 01/30/23" Patient Active Problem List Diagnosis Code ADVANCE DIRECTIVE INFORMATION Asthma, moderate persistent J45.40 Panic disorder F41.0 Alcoholism (HCC) F10.20 Major depressive disorder, recurrent episode, moderate (HCC) F33.1 DM type 2, not at goal (HCC) E11.9 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 90 Tablet 3 Mirtazapine 15 MG Oral Tablet (Remeron) Take once a day for a week then stop. Part of wean. 7 Tablet 0 BD Pen Needle Gertrude U/F 32G X 4 MM (Insulin Pen Needle) Use with insulin pens 4 times daily 400 Each1 Fluticasone-Salmeterol 250-50 MCG/ACT Inhalation Aerosol Powder Breath Activated (Advair Diskus) Inhale 1 Puff by mouth in the morning and 1 Puff before bedtime. 3 Each 3 LORazepam 0.5 MG Oral Tablet (Ativan) Take 1 Tablet by mouth 3 times a day as needed for Anxiety. 15 Tablet 0 NovoLIN 70/30 (70-30) 100 UNIT/ML Subcutaneous Suspension [...] Tablet by mouth daily. 90 Tablet 3 Triamcinolone Acetonide 55 MCG/ACT Nasal Aerosol Administer into nostril. (Patient not taking: Reported on 01/03/2023) Pantoprazole Sodium 40 MG Oral Tablet Delayed Release (Protonix) Take 1 Tab by mouth daily. 30 min before breakfast (Patient not taking: Reported on 10/21/2022) 30 Tab 5 Fluticasone-Salmeterol 250-50 MCG/DOSE Inhalation Aerosol Powder Breath Activated DAILY IN THE MORNING (Patient not taking: Reported on 02/11/2023) Citalopram Hydrobromide 10 MG Oral Tablet (CeleXA) Take 1 Tablet by mouth daily. (Patient not taking: Reported on 02/11/2023) 30 Tablet 5 No current facility-administered medications for this visit. OBJECTIVE: BP 124/82 (BP Site: Right Arm, BP Position: Sitting, BP Cuff Size: Regular) | Pulse 115 | Temp 36.3C (97.3 F) (Tympanic) | Resp 16 | Wt 80.7 kg (177 lb 14.4 oz) | SpO2 95% | BMI 32.54 kg/m | BSA 1.88 m Vitals reviewed and is normotensive / afebrile / and not tachycardic General: No acute distress. Neuro: Alert Pleasant & interactive. Respiratory: Good inspiratory effort, no labored breathing. CTAB CV: RRR no M R G HEENT: Conjunctivae appear clear. No swelling noted face or lips. Skin: No rash visible on exposed skin areas, normal coloration & appears dry. Psych: Normal affect. Fluent speech. Krystin Graves MD [place] [id number] [facility] [address] There are no Patient Instructions on file for this visit. documented in this encounter Nursing Notes * Therese Melton LPN - 02/11/2023 10:51 AM EDT Chief Complaint Patient presents with Physical-Exam Annual f/u Patient would like to discuss medications. documented in this encounter Plan of Treatment Upcoming Encounters Date Type Specialty Care Team Description 03/17/2023 Telemedicine Pharmacy [place] [id number] [place] [address] 06/10/2023 Hospital Encounter Endoscopy Angelo Rogers MD [address] [place] [address] 06/10/2023 Surgery Endoscopy Angelo Rogers MD [address] [place] [address] COLONOSCOPY FLEXIBLE PROXIMAL DIAGNOSTIC [facility] [address] [place] [address] Scheduled Orders Name Type Priority Associated Diagnoses Orde r Schedule HEMOGLOBIN A1C Lab Routine DM type 2, not at goal (HCC) Expected: 08/14/2023 (Approximate), Expires: 03/14/2024 Scheduled Procedures Name Priority Associated Diagnoses Date/Ti [...] as of this encounter Visit Diagnoses Diagnosis Focal hyperhidrosis- Primary Primary focal hyperhidrosis Dyslipidemia, goal LDL below 70 Other and unspecified hyperlipidemia Need for pneumococcal vaccination Need for prophylactic vaccination against streptococcus pneumoniae (pneumococcus) DM type 2, not at goal (HCC) Type II or unspecified type diabetes mellitus without mention of complication, not stated as uncontrolled Major depressive disorder, recurrent episode, moderate (HCC) Major depressive disorder, recurrent episode, moderate Alcoholism (HCC) Other and unspecified alcohol dependence, unspecified drinking behavior Moderate persistent asthma without complication Unspecified asthma Special screening for malignant neoplasms, colon documented in this encounter Care Teams Curriculum Advisory Teacher Relationship Specialty Start Date End Date Krystin Graves MD [address] [place] [address] PCP - General Family Medicine 10/21/22 documented as of this encounter
--- OUTSIDE RECORDS SUMMARY | 2023-06-30 12:05 | External Medical Summary | Summary of Care ---
Author Name Unknown Organization [facility] Address [address] [place] [address] Phone [phone] Care Team Providers Care Operating Room Technician Name Role Phone Krystin Graves MD Primary Care Provid er Reason for Visit * Reason Onset Date Comments Patient Assistance Program 01/15/2023 dom linares Encounter Details Date Type Department Care Team Description 01/15/2023 Telephone Pharmacy, [address] [address] Elizabeth Rosario, [facility] [address] [place] [address] Patient Assistance Program (denial) Allergies Active Allergy Reactions Severity Noted Date Comments Theophylline 04/30/2002 anxiety Theophylline Sodium Glycinate 2004 nervous documented as of this encounter (statuses as of 01/23/2023) Medications Medication Sig Dispensed Refills Start Date [...] Needle)Indications :DM type 2, not at goal ([facility]) Use with insulin pens 4 times daily 400 Each 1 12/16/2022 Active Fluticasone-Salmet agatha 250-50 MCG/ACT Inhalation Aerosol Powder Breath Activated (Advair Diskus)Indications :Moderate persistent asthma without complication Inhale 1 Puff by mouth in the morning and 1 Puff before bedtime. 3 Each 3 12/20/2022 Active NovoLIN 70/30 (70-30) 100 UNIT/ML Subcutaneous SuspensionIndicati ons:DM type 2, not at goal ([facility]) Inject 28 Units under the skin in the morning and 28 Units in the evening. 60 mL 3 01/23/2023 Active metFORMIN HCl ER 500 MG Oral Tablet Extended Release 24 Hour (Glucophage XR)Indications:Typ e 2 diabetes mellitus with hemoglobin A1c goal of less than 8.0% ([facility]) Take 4 Tablets by mouth at bedtime. 360 Tablet 3 12/18/2022 3 Discontinue d(End of Procedure) NovoLIN 70/30 (70-30) 100 UNIT/ML Subcutaneous Suspension Inject 24 Units under the skin in the morning and 24 Units in the evening. 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 . documented as of this encounter (statuses as of 01/23/2023) Resolved Problems Problem Noted Date Resolved Date [...] as of this encounter (statuses as of 01/23/2023) Immunizations Name Administration Dates Next Due COVID-19 mRNA, LNP-s, No Pre serve, 2-Dose Series ([email or web address]) 04/17/2021,08/22/2020 Covid-19, Mrna, Lnp-s, Pf, B ivalent, 30 Mcg, IM, 12 yrs and above ([email or web address]) 03/20/2022,09/25/2021 HEP A - Hepatitis A (Adult > 18 yrs) 01/21/2001 Hepatitis B, 20+ yrs 03/05/2021 Pneumococcal Conjugate Vacci ne, 7 Valent 08/07/2000 Pneumococcal Polysaccharide PPV23 (Pneumovax) 03/19/2018 Seasonal Influenza [...] TDAP (age 10 and older)(Boostrix) 08/31/2013 Typhoid Oral 01/21/2001 documented as of this encounter Social [...] encounter Miscellaneous Notes * Addendum Note - Elizabeth Rosario RPh - 01/23/2023 4:25 PM EDTAddended by: ELIZABETH ROSARIO on: 01/23/2023 04:25 PM Modules accepted: Orders * Telephone Encounter - Elizabeth Rosario RPh - 01/23/2023 4:22 PM EDT Images from the original note were not included. Diabetic Medications: INCNovolin 70/30-28unitsin AM; 28unitsin PM eGFR 86 mL/min as of 01/30/23 Patient notified via MyG. Follow up 02/11/2023 as scheduled. Elizabeth Rosario, PharmD Clinical Pharmacist Medication Therapy Disease Management 01/23/2023, 4:23 PM * Telephone Encounter - Elizabeth Rosario RPh - 01/15/2023 10:35 AM EDT Received notice from [facility] that patient has been denied for Basaglar and Humalog due to havinginsurance coverage (commercial). I did inform patient at the visit yesterday that this was likely to be the outcome. Will continue to work with lower cost insulin products. Non-insulin medications are not an option for patient due to previous intolerances, or other contraindications. Elizabeth Rosario, PharmD Clinical Pharmacist Medication Therapy Disease Management 01/15/2023, 10:36 AM documented in this encounter Plan of Treatment Upcoming Encounters Date Type Specialty Care Team Description 02/11/2023 Office Visit Family Medicine Krystin Graves MD [address] [place] [address] 02/11/2023 Telemedicine Pharmacy [facility] [address] [place] [address] 06/10/2023 Hospital Encounter Endoscopy Angelo Rogers MD [address] [place] [address] 06/10/2023 Surgery Endoscopy Angelo Rogers MD [address] [place] [address] COLONOSCOPY FLEXIBLE PROXIMAL DIAGNOSTIC Scheduled Procedures Name [...] colon documented in this encounter Care Teams Operating Room Technician Relationship Specialty Start Date End Date Krystin Graves MD [address] [place] [id number] PCP - General Family Medicine 10/21/22 documented as of this encounter
--- OUTSIDE RECORDS SUMMARY | 2023-06-30 12:05 | External Medical Summary | Summary of Care ---
Author Name Unknown Organization [facility] Address [address] [place] [address] Phone [phone] Care Team Providers Care Microsoft Access Developer Name Role Phone Krystin Graves MD Primary Care Provid er Encounter Details Date Type Department Care Team Description 01/15/2023 Orders Only [facility] [address] [place] [address] Krystin Graves MD [address] [place] [address] Allergies Active Allergy Reactions Severity Noted Date Comments Theophylline 04/30/2002 anxiety Theophylline Sodium Glycinate 2004 nervous documented as of this encounter (statuses as of 01/15/2023) Medications Medication Sig Dispensed Refills Start Date [...] Needle)Indications: DM type 2, not at goal ([facility]) Use with insulin pens 4 times daily 400 Each 1 12/16/2022 Active metFORMIN HCl ER 500 MG Oral Tablet Extended Release 24 Hour (Glucophage XR)Indications:Type 2 diabetes mellitus with hemoglobin A1c goal of less than 8.0% ([facility]) Take 4 Tablets by mouth at bedtime. [...] Units in the evening. 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 . documented as of this encounter (statuses as of 01/15/2023) Resolved Problems Problem Noted Date Resolved Date [...] as of this encounter (statuses as of 01/15/2023) Immunizations Name Administration Dates Next Due COVID-19 mRNA, LNP-s, No Pre serve, 2-Dose Series ([place]) 04/17/2021,08/22/2020 Covid-19, Mrna, Lnp-s, Pf, B ivalent, [...] Family Medicine Krystin Graves MD [address] [place] [address] 02/11/2023 Telemedicine Pharmacy [facility] [address] [place] [address] 06/10/2023 Hospital Encounter Endoscopy Angelo Rogers MD [address] [place] [address] 06/10/2023 Surgery Endoscopy Angelo Rogers MD [address] [place] [address] COLONOSCOPY FLEXIBLE PROXIMAL DIAGNOSTIC Scheduled Procedures Name Priority Associated Diagnoses Date/Ti me COLONOSCOPY FLEXIBLE PROXIMAL DIAGNOSTIC Special screening for malignant neoplasms, colon 06/10/2023 8:30 AM EST Health Maintenance Due Date Last Done Comments DIABETES-EYE EXAM 11/18/1993 02/23/2022 Mammogram 02/09/2019 02/09/2018, 0510/2016, 10/15/2016 Pneumococcal Vaccine: [...] 08/02/2027 08/02/2022, 10/10/2005 Pap Smear 01/04/2028 01/03/2023, 04/09/2016, 09/24/2016, Additional history exists Hepatitis C Screening Completed 10/10/2005 COVID-19 Vaccine Completed 03/20/2022, 10/2021, 04/17/2021, Additional history exists GARDASIL-HPV IMMUNIZATION SERIES Aged Out No longer eligible based on patient's age to complete this topic MENINGOCOCCAL (MENACTRA/MENVEO) Aged Out No longer eligible based on patient's age to complete this topic documented as of this encounter Medical Devices Not on filedocumented as of this encounter Procedures Procedure Name Priority Date/Time Associated Diagnosis Comments DIABETIC EYE EXAM Routine 02/23/2022 documented in this encounter Results * DIABETIC EYE EXAM (02/23/2022) 02/23/2022 Mynor Gomes OD OTHER OUTSIDE LAB (SEE SCANNED REPORT) documented in this encounter Care Teams Microsoft Access Developer Relationship Specialty Start Date End Date Krystin Graves MD [address], [place] [phone] PCP - General Family Medicine 10/21/22 documented as of this encounter
--- OUTSIDE RECORDS SUMMARY | 2023-06-30 12:05 | External Medical Summary | Summary of Care ---
Author Name Unknown Organization [facility] Address [address] [place] [address] Phone [phone] Care Team Providers Care Director Information Security Name Role Phone Krystin Graves MD Primary Care Provid er Reason for Visit * Reason Onset Date Comments Patient Assistance Program 01/15/2023 dom linares Encounter Details Date Type Department Care Team Description 01/15/2023 Telephone Pharmacy, [address] [address] Elizabeth Rosario, [facility] [address] [place] [address] Patient Assistance Program (denial) Allergies Active Allergy [...] Needle)Indications: DM type 2, not at goal ([facility]) Use with insulin pens 4 times daily [...] complication 021 10/21/2022 Alcohol withdrawal syndrome 08/31/2020 0506/2022 Alcohol use disorder, moderate, dependence 05/1310/21/2022 Alcohol [...] mRNA, LNP-s, No Pre serve, 2-Dose Series ([employer]) 04/17/2021,08/22/2020 Covid-19, Mrna, Lnp-s, Pf, B ivalent, [...] encounter Miscellaneous Notes * Telephone Encounter - Elizabeth Rosario RPh - 01/15/2023 10:35 AM EDT Received notice from [facility] that patient has been denied for Basaglar [...] Family Medicine Krystin Graves MD [address] [place] [address] 02/11/2023 Telemedicine Pharmacy [facility] [address] [place] [address] 06/10/2023 Hospital Encounter Endoscopy Angelo Rogers MD [address] [place] [address] 06/10/2023 Surgery Endoscopy Angelo Rogers MD [address] [place] [address] COLONOSCOPY FLEXIBLE PROXIMAL DIAGNOSTIC Scheduled Procedures Name Priority Associated Diagnoses Date/Ti me COLONOSCOPY FLEXIBLE PROXIMAL DIAGNOSTIC Special screening for malignant neoplasms, colon 06/10/2023 8:30 AM EST Health Maintenance Due Date Last Done Comments Mammogram 02/09/2019 02/09/2018, 0510/2016, 10/15/2016 Pneumococcal Vaccine: [...] 08/02/2027 08/02/2022, 10/10/2005 Pap Smear 01/04/2028 01/03/2023, 0409/2016, 09/24/2016, Additional history exists Hepatitis C Screening [...] documented in this encounter Care Teams Director Information Security Relationship Specialty Start Date End Date Krystin Graves MD [address] [place] [address] PCP - General Family Medicine 10/21/22 documented as of this encounter
--- OUTSIDE RECORDS SUMMARY | 2023-06-30 12:05 | External Medical Summary | Summary of Care ---
Author Name Unknown Organization [facility] Address [address] [place] [address] Phone [phone] Care Team Providers Care Commercial Credit Lead Name Role Phone Krystin Graves MD Primary Care Provid er Encounter Details Date Type Department Care Team Description 02/11/2023 Telephone [facility] [address] [place] [address] Krystin Graves MD [address] [place] [address] Allergies Active Allergy Reactions Severity [...] Needle)Indications:D M type 2, not at goal ([facility]) Use with insulin pens 4 times [...] SuspensionIndication s:DM type 2, not at goal ([facility]) Inject 28 Units under the skin [...] mRNA, LNP-s, No Pre serve, 2-Dose Series ([email or web address]) 04/17/2021,08/22/2020 Covid-19, Mrna, Lnp-s, Pf, B ivalent, 30 Mcg, IM, 12 yrs and above ([email or web address]) 03/20/2022,09/25/2021 Hepatitis B, 20+ yrs 03/05/2021 Pneumococcal [...] Telephone Encounter - Krystin Graves MD - 02/11/2023 1:27 PM EDT Myg sent documented in this encounter Plan of Treatment Upcoming Encounters Date Type Specialty Care Team Description 03/17/2023 Telemedicine Pharmacy [facility] [address] [place] [address] 06/10/2023 Hospital Encounter Endoscopy Angelo Rogers MD [address] [place] [address] 06/10/2023 Surgery Endoscopy Angelo Rogers MD [address] [place] [address] COLONOSCOPY FLEXIBLE PROXIMAL DIAGNOSTIC 07/14/2023 Office Visit Family Medicine Krystin Graves MD [address] [place] [address] Scheduled Procedures Name Priority Associated Diagnoses Date/Ti [...] EXAM 10/22/2023 10/21/2022, 06/14/2020 Mammogram 01/14/2024 01/13/2023, 08, 10/25/2016, Additional history exists Pap Smear 01/03/2026 [...] filedocumented as of this encounter Care Teams Commercial Credit Lead Relationship Specialty Start Date End Date Krystin Graves MD [address] [place] [address] PCP - General Family Medicine 10/21/22 documented as of this encounter
--- OUTSIDE RECORDS SUMMARY | 2023-06-30 12:05 | External Medical Summary | Summary of Care ---
Author Name Unknown Organization [facility] Address [address] [place] [address] Phone [phone] Care Team Providers Care Shoe Trimmer Name Role Phone Krystin Graves MD Primary Care Provid er Reason for Visit * Reason Onset Date Comments Health Maintenance 01/13/2023 Encounter Details Date Type Department Care Team Description 01/13/2023 Telephone [facility] [address] [place] [address] Krystin Graves MD [address] [place] [address] Health Maintenance Allergies Active Allergy [...] before bedtime. 3 Each 3 12/20/2022 Active Insulin Glargine Solostar 100 UNIT/ML [...] mRNA, LNP-s, No Pre serve, 2-Dose Series ([employer]) 04/17/2021,08/22/2020 Covid-19, Mrna, Lnp-s, Pf, B ivalent, 30 Mcg, IM, 12 yrs and above ([employer]) 03/20/2022,09/25/2021 Hepatitis B, 20+ yrs 03/05/2021 Pneumococcal [...] Family Medicine Krystin Graves MD [address] [place] [address] 02/11/2023 Telemedicine Pharmacy [facility] [address] [place] [address] 06/10/2023 Hospital Encounter Endoscopy Angelo Rogers MD [address] [place] [address] 06/10/2023 Surgery Endoscopy Angelo Rogers MD [address] [place] [address] COLONOSCOPY FLEXIBLE PROXIMAL DIAGNOSTIC Scheduled Procedures Name [...] as of this encounter Care Teams Shoe Trimmer Relationship Specialty Start Date End Date Krystin Graves MD [address] [place] [address] PCP - General Family Medicine 10/21/22 documented as of this encounter
--- OUTSIDE RECORDS SUMMARY | 2023-06-30 12:06 | External Medical Summary | Summary of Care ---
Author Name Unknown Organization [facility] Address [address] [place] [address] Phone [phone] Care Team Providers Care Mingle Operator Name Role Phone Krystin Graves MD Primary Care Provid er Reason for Referral * Ancillary Services (Within 30 days (routine)) - Pending Review Specialty Diagnoses / Procedures Referred By Yaneli hidalgo Referred To Contact Gastroenterology Diagnoses Special screening for malignant neoplasms, colon Lakeisha Paul PA-C [address] [place] [address] Referral ID Status Reason Start Date Expiration Date Visits Requested Visits Authorized [id number] Pending Review Ancillary Services Required 01/03/[phone] Question Answer Referral Priority Within 30 days (routine) Comments ALERT: Do not order for pediatric patients (18 years or younger). Cancel off screen and order PEDS GASTROENTEROLOGY CONSULT (Type: 1 visit only-Evaluate and Treat) The following Pt. Instructions are available: - Gastro Colonoscopy Prep Instructions [13855] - Gastro Colonoscopy Prep Instructions (Tamazight Version) [79618] Go to the Pt. Instructions section within the Visit Navigator to access. Colonoscopy ASGE Guidelines: Average risk screening (begin at age 50, 10 year intervals) ADDITIONAL INFORMATION 1. Is the patient on Coumadin? No 2. Is the patient on Pradaxa? No Reason for Visit * Reason Comments PAP Encounter Details Date Type Department Care Team Description 01/03/2023 Office Visit [facility] [address] [place] [address] Lakeisha Paul PA-C [address] [place] [address] Pap smear for cervical cancer screening*; Encounter for gynecological examination without abnormal finding; Screening mammogram for breast cancer; Special screening for malignant neoplasms, colon Allergies Active Allergy Reactions Severity Noted Date Comments Theophylline 04/30/2002 anxiety Theophylline Sodium Glycinate 2004 nervous documented as of this encounter (statuses as of 01/10/2023) Medications Medication Sig Dispensed Refills Start Date [...] Needle)Indications :DM type 2, not at goal ([facility]) Use with insulin pens 4 times daily 400 Each 1 12/16/2022 Active metFORMIN HCl ER 500 MG Oral Tablet Extended Release 24 Hour (Glucophage XR)Indications:Typ e 2 diabetes mellitus with hemoglobin A1c goal of less than 8.0% ([facility]) Take 4 Tablets by mouth at bedtime. 360 Tablet 3 12/18/2022 Active Fluticasone-Salmet agatha 250-50 MCG/ACT Inhalation Aerosol Powder Breath Activated ([employer] Diskus)Indications :Moderate persistent asthma without complication Inhale 1 Puff by mouth in the morning and 1 Puff before bedtime. 3 Each 3 12/20/2022 Active hydrOXYzine (ATARAX) 10 MG Tablet Take 2 Tabs by mouth every 8 hours as needed for Anxiety. 50 Tab 2 08/03/2019 3 Discontinue d(Patient preference/ discontinua tion) ReliOn Lancet Devices 30GIndications:Typ e 1 diabetes mellitus with hemoglobin A1c goal of less than 7.0% ([facility]) Use to test blood glucose 4 times daily. DX: E10.9 400 Each 3 06/28/2020 3 Discontinue d(Patient preference/ discontinua tion) ReliOn Prime Test In Vitro Strip (Glucose Blood)Indications: Type 1 diabetes mellitus with hemoglobin A1c goal of less than 7.0% (HCC) Use to test blood glucose 4 times daily. DX: E10.9 400 Strip 3 06/28/2020 3 Discontinue d(Patient preference/ discontinua tion) ReliOn Prime Monitor DeviceIndications: Type 1 diabetes mellitus with hemoglobin A1c goal of less than 7.0% ([facility]) Use to test blood glucose 4 times daily. DX: E10.9 1 Each 0 06/28/2020 3 Discontinue d(Patient preference/ discontinua tion) Fexofenadine HCl 180 MG Oral Tablet (Nani)Indicatio ns:Viral URI,Dysfunction of both eustachian tubes Take 1 Tab by mouth daily as needed for Allergies. 30 Tab 11 07/31/2020 3 Discontinue d(Patient preference/ discontinua tion) guaiFENesin ER 600 MG Oral Tablet Extended Release 12 Hour (Mucinex)Indicatio ns:Viral URI,Dysfunction of both eustachian tubes Take 1 Tab by mouth 2 times a day as needed for Congestion. Take with plenty of water. 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 . documented as of this encounter (statuses as of 01/10/2023) Resolved Problems Problem Noted Date Resolved Date [...] as of this encounter (statuses as of 01/10/2023) Immunizations Name Administration Dates Next Due COVID-19 mRNA, LNP-s, No Pre serve, 2-Dose Series ([employer]) 04/17/2021,08/22/2020 Covid-19, Mrna, Lnp-s, Pf, B ivalent, 30 Mcg, IM, 12 yrs and above ([employer]) 03/20/2022,09/25/2021 HEP A - Hepatitis A (Adult [...] Sign Reading Time Taken Comments Blood Pressure 110/70 01/03/2023 2:45 PM EDT Pulse 82 01/03/2023 2:45 PM EDT Temperature 36.6 C (97.8 F) 01/03/2023 2:45 PM ED T Respiratory Rate 18 01/03/2023 2:45 PM EDT Oxygen Saturation 98% 01/03/2023 2:45 PM EDT Inhaled Oxygen Concentration - - Weight 79.9 kg (176 lb 3.2 oz) 01/03/2023 2:45 P M EDT Height 157.5 cm (5' 2") 01/03/2023 2:45 PM EDT Body Mass Index 32.23 01/03/2023 2:45 PM EDT documented in this encounter Progress Notes * Lakeisha Paul PA-C - 01/03/2023 2:54 PM EDT Images from the original note were not included. History of Present Illness Marcus Avelar is a 47 year old female that presents for PAP Here for cpe and pap. No LMP recorded. Patient is perimenopausal. No hot flashes No dyspareunia. Not sexually active Past Medical History: Diagnosis Date Acute kidney injury (HCC) Alcohol dependence (HCC) 05/13/2019 Alcohol use disorder, moderate, dependence (HCC) 05/13/2019 Alcohol-induced acute pancreatitis without infection or necrosis 08/31/2020 Alcoholic cirrhosis of liver with ascites (HCC) 08/31/2020 Anxiety Ascites due to alcoholic hepatitis 08/31/2020 Asthma, moderate persistent 08/21/2012 Cirrhosis of liver (HCC) 09/11/2022 DM type 2, not at goal (HCC) 03/13/2020 Major depressive disorder, recurrent episode, moderate (HCC) 08/03/2019 Extensive ROS Constitutional (f/c/wt/vision/hearing): Negative and wears glasses, eye exam current, diabetic eye exam current Resp (cough/sob/todd): Negative CV (cp/palp/fluttering/diaphoresis/todd/pnd):Negative GI (n/v/d/hrtburn): Negative Endo (hair/cold or heat intol/ 3 p's): Negative Neuro (shaking/weak/fatigu/parasthesi/): Negative Skin (rash/easy bruis/xerosis): Negative Psy (si/hi/halluc/): Negative (nocturia/hesit/drib/sexual review): Negative Lymph (swollen glands/b sx's/: Negative Physical Exam Vitals: 01/03/23 1445 Temp: 36.6 C (97.8 F) Pulse: 82 Resp: 18 SpO2: 98% BP: 110/70 BMI: 32.22 BP Readings from Last 3 Encounters: 01/03/23 110/70 10/21/22 110/64 07/31/20 108/58 Wt Readings from Last 3 Encounters: 01/03/23 79.9 kg (176 lb 3.2 oz) 10/21/22 82.9 kg (182 lb 12.8 oz) 07/31/20 67.1 kg (148 lb) BMI Readings from Last 3 Encounters: 01/03/23 32.23 kg/m 10/21/22 33.43 kg/m 07/31/20 27.07 kg/m Ht Readings from Last 3 Encounters: 01/03/23 1.575 m (5' 2") 10/21/22 1.575 m (5' 2") 03/13/20 (!) 1.575 m (5' 2") General: alert, healthy and no distress Head: Normocephalic, No masses, lesions, tenderness or abnormalities Eye Exam: PERRLA, extraocular movements intact, conjunctiva are pink and non- injected, sclera clear Ears: External ears normal, Canals clear, TM's Normal Nose: no mucosal erythema, no mucosal edema, no purulent discharge Oropharynx: no exudate, no erythema, lips, buccal mucosa, and tongue normal and mucous membranes are moist Neck: supple, no adenopathy, no bruits, thyroid normal size, non-tender, without nodularity Heart: regular rate & rhythm, no murmur and no gallops, s1 and s2 Lungs: chest symmetric with normal AP diameter, no chest deformities noted, no chest wall tenderness, lungs clear to auscultation Pulses: carotid=2/4 w/o bruits Abdomen: abdomen soft, non-tender, normal bowel sounds and no masses or organomegaly Back: back symmetric, no curvature, no costovertebral angle tenderness, range of motion is normal Extremities: less than 2 second capillary refill, no joint deformities, effusion, or inflammation Neuro Exam: alert & oriented x 3 with fluent speech, no focal motor/sensory deficits, gait normal, reflexes normal and symmetric Breasts: Inspection negative, No nipple retraction or dimpling, No nipple discharge or bleeding, Noaxillary or supraclavicular adenopathy, Normal to palpation without dominant masses Pelvic Exam: External genitalia and vagina anatomy within normal limits, No significant vulvar lesions, No significant vaginal discharge, Cervix normal in appearance without lesions or purulent discharge, Uterus is normal size, shape, and consistency, Adnexea normal bilaterally. No abnormal pelvic masses, Pap obtained with broom Exam (Female): external genitalia and vagina anatomy within normal limits, no vaginal discharge,urethra normal wtih no lesion, no discharge Skin: skin color, texture, turgor are normal, no rashes or significant lesions Assessment and Plan Pap smear for cervical cancer screening (Primary) - PRODUCTION SKI REPAIRER PAP SCREEN Encounter for gynecological examination without abnormal finding - PRODUCTION SKI REPAIRER PAP SCREEN Screening mammogram for breast cancer - MAMMOGRAM SCREENING LUIZ BILATERAL; Future; Expected date: 01/03/2023 Special screening for malignant neoplasms, colon - COLONOSCOPY, GI REFERRAL OP Follow Up: Return for records release. | For: records release | Check-out note: Diabetic eye exam Pap today Wrap-Up [employer] due - pt aware Time: I spent a total of 20-29 minutes (exact time 29 mins) on the date of service in preparation, delivery, and documentation of the care provided to Marcus Avelar excluding any time spent in the performance of separately billed services. Lakeisha Paul PA-C 01/03/2023 3:09 PM documented in this encounter Nursing Notes * Ana Serrato LPN - 01/03/2023 2:49 PM EDT Chief Complaint Patient presents with PAP Patient has been verbally educated on the need or importance of Colon Cancer Screening and DiabeticEye Exam * Ana Serrato LPN - 01/03/2023 2:33 PM EDT Chief Complaint Patient presents with PAP Patient has been verbally educated on the need or importance of Colon Cancer Screening and DiabeticEye Exam documented in this encounter Plan of Treatment Upcoming Encounters Date Type Specialty Care Team Description 01/13/2023 Imaging Radiology 01/14/2023 Telemedicine Pharmacy [facility] [address] [place] [address] 01/24/2023 Office Visit Family Medicine Krystin Graves MD [address] [place] [address] 06/10/2023 Hospital Encounter Endoscopy Angelo Rogers MD [address] [place] [address] 06/10/2023 Surgery Endoscopy Angelo Rogers MD [address] [place] [address] COLONOSCOPY FLEXIBLE PROXIMAL DIAGNOSTIC Scheduled Orders Name Type Priority Associated Diagnoses Orde r Schedule MAMMOGRAM SCREENING LUIZ BILATERAL Medical Imaging Routine Screening mammogram for breast cancer Expected: 01/03/2023, Expires: 02/04/2024 Scheduled Procedures Name Priority Associated Diagnoses Date/Ti me COLONOSCOPY FLEXIBLE PROXIMAL DIAGNOSTIC Special screening for malignant neoplasms, colon 06/10/2023 8:30 AM EST Scheduled Referrals Name Type Priority Associated Diagnoses Orde r Schedule COLONOSCOPY, GI REFERRAL OP Referral Within 30 days (routine) Special screening for malignant neoplasms, colon Ordered: 01/03/2023 Health Maintenance Due Date Last Done Comments [...] Procedure Name Priority Date/Time Associated Diagnosis Comments HUMAN PAPILLOMA VIRUS, PROBE Routine 01/03/2023 3:30 PM EDT Pap smear for cervical cancer screening Encounter for gynecological examination without abnormal finding PRODUCTION SKI REPAIRER PAP SCREEN Routine 01/03/2023 3:30 PM EDT Pap smear for cervical cancer screening Encounter for gynecological examination without abnormal finding documented in this encounter Results * HUMAN PAPILLOMA VIRUS, PROBE (01/03/2023 3:30 PM EDT) Human Papilloma Virus Result Negative Not Applicable 01/09/2023 2:43 PM EDT LABORATORY [facility] Comment: No high/intermediate-risk Human Papillomavirus (HPV E6/E7 messenger RNA) detected by nucleic acid amplification. This assay looks for high/intermediate risk Human Papillomavirus (HPV E6/E7 messenger RNA) by nucleic acid amplification. This assay includes the qualitative detection of HPV types 16,18,31,33,35,39,45,51,52,56,58,59,66 and 68 from cervical specimens. This assay has been FDA cleared for Thin prep collection vials. This assay has not been approved for use as a primary screening test for HPV and should be tested in conjunction with a PAP screen. If collected utilizing a Surepath vial, the collection and specimen preparation of this test was developed, and its performance characteristics determined by [employer]. It has not been cleared or approved by the U.S. Food and Drug Administration (FDA). The FDA has determined that such clearance or approval is not necessary. This assay has been performed at [facility], [address] [place] [address]. [id number]. Pap Test Specimen from wound / Unknown 01/03/2023 3:30 PM EDT 01/07/2023 4:29 AM EDT Lakeisha Paul PA-C LAB MICRO - GENER [place] ORDER[place] [address] * PRODUCTION SKI REPAIRER PAP SCREEN (01/03/2023 3:30 PM EDT) Final Diagnosis A. Cervix, SurePath Pap test: Adequacy: Satisfactory for evaluation. Cellular content appropriate for menstrual/clinical history. Interpretation: Negative for Intraepithelial lesion or malignancy ([facility]). AUTOMATED REVIEW: Focal Point computerized screening device (quintile 3, review). 01/09/2023 2:43 PM EDT LABORATORY [facility] Performing Labs Congressional Assistant screening performed at [facility] ([facility]), [address] [place] [address]. 01/09/2023 2:43 PM EDT LABORATORY C Gross Description A. Cervix. SurePath vial received labeled with the patient's identification. 01/09/2023 2:43 PM EDT LABORATORY [facility] EDUCATIONAL NOTE: The Pap test (thin-layer cervical screening specimen) is a screening test that aids in the detection of cervical cancer and cancer precursors. Both false positive and false negative results can occur. The test should be used at regular intervals (as per the ASCCP guidelines) and positive results should be confirmed before definitive therapy. Discrepancies between the Pap test findings and clinical impressions should be resolved with diagnostic tests such as colposcopy and biopsy. 01/09/2023 2:43 PM EDT LABORATORY [facility] Case Report Gynecologic Cytology Report Case: [id number] Authorizing Provider: Lakeisha Paul PA-C Collected: 01/03/2023 03:30 PM Ordering Location: [facility], Received: 01/03/2023 03:30 PM [place] First Screen: STELLA Torres(ASCP) Specimen: SurePath Pap test, Cervix 01/09/2023 2:43 PM EDT LABORATORY [facility] PAP Indication for Procedure: Routine Pap 01/09/2023 2:43 PM EDT LABORATORY [facility] PAP Previous Cancer: None 01/09/2023 2:43 PM EDT LABORATORY C HPV Permissions: HPV Regardless (Including cotest) 01/09/2023 2:43 PM EDT LAB[facility]ATORY [facility] PAP Contraceptive History: None 01/09/2023 2:43 PM EDT LABORATORY [facility] PAP Menstrual Status: Post-menopausal 01/09/2023 2:43 PM EDT LABORATORY [facility] Pap Test Specimen from wound / Unknown 01/03/2023 3:30 PM EDT 01/03/2023 3:30 PM EDT Lakeisha Paul PA-C LAB CYTOLOGY [facility] [address] [place] [address] documented in this encounter Visit Diagnoses Diagnosis Pap smear for cervical cancer screening- Primary Screening for malignant neoplasm of the cervix Encounter for gynecological examination without abnormal finding Routine gynecological examination Screening mammogram for breast cancer Special screening for malignant neoplasms, colon Special screening for malignant neoplasms, colon documented in this encounter Care Teams Mingle Operator Relationship Specialty Start Date End Date Krystin Graves MD [address] [place] [address] PCP - General Family Medicine 10/21/22 documented as of this encounter
--- OUTSIDE RECORDS SUMMARY | 2023-06-30 12:06 | External Medical Summary | Summary of Care ---
Author Name Unknown Organization [facility] Address [address] [place] [address] Phone [phone] Care Team Providers Care Engineer Assistant Name Role Phone Krystin Graves MD Primary Care Provid er Reason for Referral * Ancillary Services (Within 30 days (routine)) - Pending Review Specialty Diagnoses / Procedures Referred By Yaneli hidalgo Referred To Contact Gastroenterology Diagnoses Special screening for malignant neoplasms, colon Lakeisha Paul PA-C [address] [place] [address] Referral ID Status Reason Start Date Expiration Date Visits Requested Visits Authorized [id number] Pending Review Ancillary Services Required 01/03/[phone] Question Answer Referral Priority Within 30 days (routine) Comments ALERT: Do not order for pediatric patients (18 years or younger). Cancel off screen and order PEDS GASTROENTEROLOGY CONSULT (Type: 1 visit only-Evaluate and Treat) The following Pt. Instructions are available: - Gastro Colonoscopy Prep Instructions [[id number]] - Gastro Colonoscopy Prep Instructions (English Version) [[id number]] Go to the Pt. Instructions section within the Visit Navigator to access. Colonoscopy ASGE Guidelines: Average risk screening (begin at age 50, 10 year intervals) ADDITIONAL INFORMATION 1. Is the patient on Coumadin? No 2. Is the patient on Pradaxa? No Reason for Visit * Reason Comments PAP Encounter Details Date Type Department Care Team Description 01/03/2023 Office Visit [facility] [address] [place] [address] Lakeisha Paul PA-C [address] [place] [address] Pap smear for cervical cancer screening*; Encounter for gynecological examination without abnormal finding; Screening mammogram for breast cancer; Special screening for malignant neoplasms, colon Allergies Active Allergy Reactions Severity Noted Date Comments Theophylline 04/30/2002 anxiety Theophylline Sodium Glycinate 2004 nervous documented as of this encounter (statuses as of 01/03/2023) Medications Medication Sig Dispensed Refills Start Date [...] Needle)Indications :DM type 2, not at goal ([facility]) Use with insulin pens 4 times daily 400 Each 1 12/16/2022 Active metFORMIN HCl ER 500 MG Oral Tablet Extended Release 24 Hour (Glucophage XR)Indications:Typ e 2 diabetes mellitus with hemoglobin A1c goal of less than 8.0% ([facility]) Take 4 Tablets by mouth at bedtime. 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 . documented as of this encounter (statuses as of 01/03/2023) Resolved Problems Problem Noted Date Resolved Date [...] as of this encounter (statuses as of 01/03/2023) Immunizations Name Administration Dates Next Due COVID-19 mRNA, LNP-s, No Pre serve, 2-Dose Series ([employer]) 04/17/2021,08/22/2020 Covid-19, Mrna, Lnp-s, Pf, B ivalent, 30 Mcg, IM, 12 yrs and above ([employer]) 03/20/2022,09/25/2021 Hepatitis B, 20+ yrs 03/05/2021 [...] smear for cervical cancer screening (Primary) - WEB CONTENT DEVELOPER PAP SCREEN Encounter for gynecological examination without abnormal finding - WEB CONTENT DEVELOPER PAP SCREEN Screening mammogram for breast cancer - MAMMOGRAM SCREENING LUIZ BILATERAL; Future; Expected date: 01/03/2023 Special screening for malignant neoplasms, colon - COLONOSCOPY, GI REFERRAL OP Follow Up: Return for records release. | For: records release | Check-out note: Diabetic eye exam Pap today Wrap-Up [place] due - pt aware Time: I spent [...] Description 01/13/2023 Imaging Radiology 01/14/2023 Telemedicine Pharmacy [facility] [address] [place] [address] 01/24/2023 Office Visit Family Medicine Krystin Graves MD [address] [place] [facility] [place] [address] Scheduled Orders Name Type Priority Associated Diagnoses Orde r Schedule WEB CONTENT DEVELOPER PAP SCREEN Pathology Routine Pap smear for cervical cancer screening Encounter for gynecological examination without abnormal finding Ordered: 01/03/2023 MAMMOGRAM SCREENING LUIZ BILATERAL Medical Imaging Routine Screening mammogram for breast cancer Expected: 01/03/2023, Expires: 02/04/2024 Scheduled Procedures Name Priority Associated Diagnoses Date/Ti me COLONOSCOPY FLEXIBLE PROXIMA L DIAGNOSTIC Special screening for malignant neoplasms, colon Scheduled Referrals Name Type Priority Associated Diagnoses [...] 3 - 19+ 3-dose series) 04/02/2021 03/05/2021 Pap Smear 09/24/2021 09/24/2016, 09/2016, 03/25/2013, Additional history exists HbA1c 01/30/2023 08/02/2022, 08/21, 05/27/2020, Additional history exists Influenza Vaccine (FLU shot) (#1) 2023 03/13/2020, 04/22/2019, 04/22/2019, Additional history exists GFR 08/02/2023 08/02/2022, 10/23, 09/11/2020, Additional history exists DTaP,Tdap,and Td Vaccines (2 - Td or Tdap) 09/01/2023 08/31/2013, 10/09/2005, 10/09/2005, Additional history exists Albumin/Creatinine Ratio 10/22/2023 10/21/2022 DIABETES-FOOT EXAM 10/22/2023 10/21/2022, 06/14/2020 Lipid Panel 08/02/2027 08/02/2022, 10/10/2005 Hepatitis C Screening Completed 10/10/2005 COVID-19 Vaccine Completed 03/20/2022, 10/2021, 04/17/2021, Additional history exists GARDASIL-HPV IMMUNIZATION SERIES Aged Out No longer eligible based on patient's age to complete this topic MENINGOCOCCAL (MENACTRA/MENVEO) Aged Out No longer eligible based on patient's age to complete this topic documented as of this encounter Medical Devices Not on filedocumented as of this encounter Visit Diagnoses Diagnosis Pap smear for cervical cancer screening- Primary Screening for malignant neoplasm of the cervix Encounter for gynecological examination without abnormal finding Routine gynecological examination Screening mammogram for breast cancer Special screening for malignant neoplasms, colon documented in this encounter Care Teams Engineer Assistant Relationship Specialty Start Date End Date Krystin Graves MD [address], [place] [id number] PCP - General Family Medicine 10/21/22 documented as of this encounter
--- OUTSIDE RECORDS SUMMARY | 2023-06-30 12:06 | External Medical Summary | Summary of Care ---
Author Name Unknown Organization [facility] Address [address] [place] [address] Phone [phone] Care Team Providers Care Supervisor Metal Cans Name Role Phone Krystin Graves MD Primary Care Provid er Reason for Referral * Ancillary Services (Within 30 days (routine)) - Pending Review Specialty Diagnoses / Procedures Referred By Yaneli hidalgo Referred To Contact Gastroenterology Diagnoses Special screening for malignant neoplasms, colon Lakeisha Paul PA-C [address] [place] [address] Referral ID Status Reason Start Date Expiration Date Visits Requested Visits Authorized [id number] Pending Review Ancillary Services Required 01/03/[phone] Question Answer Referral Priority Within 30 days (routine) Comments ALERT: Do not order for pediatric patients (18 years or younger). Cancel off screen and order PEDS GASTROENTEROLOGY CONSULT (Type: 1 visit only-Evaluate and Treat) The following Pt. Instructions are available: - Gastro Colonoscopy Prep Instructions [[id number]] - Gastro Colonoscopy Prep Instructions (Kinyarwanda Version) [[id number]] Go to the Pt. Instructions section within the Visit Navigator to access. Colonoscopy ASGE Guidelines: Average risk screening (begin at age 50, 10 year intervals) ADDITIONAL INFORMATION 1. Is the patient on Coumadin? No 2. Is the patient on Pradaxa? No Reason for Visit * Reason Comments PAP Encounter Details Date Type Department Care Team Description 01/03/2023 Office Visit [facility] [address] [place] [address] Lakeisha Paul PA-C [address] [place] [address] Pap smear for cervical cancer screening*; Encounter [...] Needle)Indications :DM type 2, not at goal ([facility]) Use with insulin pens 4 times daily 400 Each 1 12/16/2022 Active metFORMIN HCl ER 500 MG Oral Tablet Extended Release 24 Hour (Glucophage XR)Indications:Typ e 2 diabetes mellitus with hemoglobin A1c goal of less than 8.0% ([facility]) Take 4 Tablets by mouth at [...] hemoglobin A1c goal of less than 7.0% ([facility]) Use to test blood glucose 4 times [...] hemoglobin A1c goal of less than 7.0% ([facility]) Use to test blood glucose 4 times [...] mRNA, LNP-s, No Pre serve, 2-Dose Series ([employer]) 04/17/2021,08/22/2020 Covid-19, Mrna, Lnp-s, Pf, B ivalent, 30 Mcg, IM, 12 yrs and above ([employer]) 03/20/2022,09/25/2021 Hepatitis B, 20+ yrs 03/05/2021 Pneumococcal [...] smear for cervical cancer screening (Primary) - MAIL HANDLER PAP SCREEN Encounter for gynecological examination without abnormal finding - MAIL HANDLER PAP SCREEN Screening mammogram for breast cancer - MAMMOGRAM SCREENING LUIZ BILATERAL; Future; Expected date: 01/03/2023 Special screening for malignant neoplasms, colon - COLONOSCOPY, GI REFERRAL OP Follow Up: Return for records release. | For: records release | Check-out note: Diabetic eye exam Pap today Wrap-Up [place] due - pt aware Time: I spent [...] Description 01/13/2023 Imaging Radiology 01/14/2023 Telemedicine Pharmacy [facility] [address] [place] [facility] [place] [address] 01/24/2023 Office Visit Family Medicine [facility] [address] [facility] [address] 06/10/2023 Hospital Encounter Endoscopy Angelo Rogers MD [address] [place] [address] 06/10/2023 Surgery Endoscopy Angelo Rogers MD [address] [place] [address] COLONOSCOPY FLEXIBLE PROXIMAL DIAGNOSTIC Pending Results Name Type Priority Associated Diagnoses Date /Time MAIL HANDLER PAP SCREEN Pathology Routine Pap smear for cervical cancer screening Encounter for gynecological examination without abnormal finding 01/03/2023 3:30 PM EDT Scheduled Orders Name Type Priority Associated Diagnoses Orde r Schedule MAMMOGRAM SCREENING LUIZ BILATERAL Medical Imaging Routine Screening mammogram for breast cancer Expected: 01/03/2023, Expires: 02/04/2024 Scheduled Procedures Name Priority Associated Diagnoses Date/Ti de COLONOSCOPY FLEXIBLE PROXIMAL DIAGNOSTIC Special screening for [...] series) 04/02/2021 03/05/2021 Pap Smear 09/24/2021 09/24/2016, 04/09/2016, 03/25/2013, Additional history exists HbA1c 01/30/2023 08/02/2022, [...] colon documented in this encounter Care Teams Supervisor Metal Cans Relationship Specialty Start Date End Date Krystin Graves MD [address] [place] [address] PCP - General Family Medicine 10/21/22 documented as of this encounter
--- OUTSIDE RECORDS SUMMARY | 2023-06-30 12:06 | External Medical Summary ---
Author Name Unknown Address Unknown Organization K01:LABORATORY [place] [address] Laboratory Report Ordering Provider Test Date Status GREYSON CHANG 01/03/2023 15:30:00 Final Observation Date Value Abnormality Reference (Units ) Status Human papilloma virus E6+E7 mRNA [Presence] in Cervix by [employer] with probe detection 01/03/2023 15:30:00 Negative Not Applicable Final No high/intermediate-risk Hu man Papillomavirus (HPV E6/E7 messenger RNA) detected by [...] developed, and its performance characteristics determined by [employer]. It has not been cleared or approved by the U.S. Food and Drug Administration (FDA). The FDA has determined that such clearance or approval is not necessary.
This assay has been performed at [email or web address], [address] [facility], [place]. [address]. Performing Location LABORATORY [address] [address]
--- OUTSIDE RECORDS SUMMARY | 2023-06-30 12:06 | External Medical Summary | Summary of Care ---
Author Name Unknown Organization [facility] Address [address] [place] [address] Phone [phone] Care Team Providers Care Cover Assembler Name Role Phone Krystin Graves MD Primary Care Provid er Reason for Referral * Ancillary Services (Within 30 days (routine)) - Pending Review Specialty Diagnoses / Procedures Referred By Yaneli hidalgo Referred To Contact Gastroenterology Diagnoses Special screening for malignant neoplasms, colon Lakeisha Paul PA-C [address] [place] [address] Referral ID Status Reason Start Date Expiration Date Visits Requested Visits Authorized [id number] Pending Review Ancillary Services Required 01/03/[phone] Question Answer Referral Priority Within 30 days (routine) Comments ALERT: Do not order for pediatric patients (18 years or younger). Cancel off screen and order PEDS GASTROENTEROLOGY CONSULT (Type: 1 visit only-Evaluate and Treat) The following Pt. Instructions are available: - Gastro Colonoscopy Prep Instructions [[id number]] - Gastro Colonoscopy Prep Instructions (Georgian Version) [[id number]] Go to the Pt. Instructions section within the Visit Navigator to access. Colonoscopy ASGE Guidelines: Average risk screening (begin at age 50, 10 year intervals) ADDITIONAL INFORMATION 1. Is the patient on Coumadin? No 2. Is the patient on Pradaxa? No Reason for Visit * Reason Comments PAP Encounter Details Date Type Department Care Team Description 01/03/2023 Office Visit [facility] [address] [place] [address] Lakeisha Paul PA-C [address] [place] [address] Pap smear for cervical cancer screening*; Encounter [...] Needle)Indications :DM type 2, not at goal ([facility]) Use with insulin pens 4 times daily 400 Each 1 12/16/2022 Active metFORMIN HCl ER 500 MG Oral Tablet Extended Release 24 Hour (Glucophage XR)Indications:Typ e 2 diabetes mellitus with hemoglobin A1c goal of less than 8.0% ([facility]) Take 4 Tablets by mouth at bedtime. [...] hemoglobin A1c goal of less than 7.0% ([facility]) Use to test blood glucose 4 times [...] hemoglobin A1c goal of less than 7.0% ([facility]) Use to test blood glucose 4 times daily. DX: E10.9 1 Each 0 06/28/2020 3 Discontinue d(Patient preference/ discontinua tion) Fexofenadine HCl 180 MG Oral Tablet ([employer])Indicatio ns:Viral URI,Dysfunction of both eustachian tubes Take [...] mRNA, LNP-s, No Pre serve, 2-Dose Series ([employer]) 04/17/2021,08/22/2020 Covid-19, Mrna, Lnp-s, Pf, B ivalent, 30 Mcg, IM, 12 yrs and above ([employer]) 03/20/2022,09/25/2021 HEP A - Hepatitis A (Adult [...] smear for cervical cancer screening (Primary) - MEMORY CARE PROGRAM DIRECTOR PAP SCREEN Encounter for gynecological examination without abnormal finding - MEMORY CARE PROGRAM DIRECTOR PAP SCREEN Screening mammogram for breast cancer - MAMMOGRAM SCREENING LUIZ BILATERAL; Future; Expected date: 01/03/2023 Special screening for malignant neoplasms, colon - COLONOSCOPY, GI REFERRAL OP Follow Up: Return for records release. | For: records release | Check-out note: Diabetic eye exam Pap today Wrap-Up [place] due - pt aware Time: I spent [...] and DiabeticEye Exam documented in this encounter Miscellaneous Notes * Result Encounter Note - Erika Dixon RN - 01/10/2023 2:26 PM EDT Reason for Call: PAP Contact: My [facility] Contact Type: Test Results Outcome: MyChart letter sent Face to face time spent with Patient (minutes): 0 Total Time including non face to face (minutes): 10 * Result Encounter Note - Erika Dixon RN - 01/10/2023 2:26 PM EDT Normal Pap/HPV negative. MyChart letter sent documented in this encounter Plan of Treatment Upcoming Encounters Date Type Specialty Care Team Description 01/13/2023 Imaging Radiology 01/14/2023 Telemedicine Pharmacy [facility] [address] [place] [address] 01/24/2023 Office Visit Family Medicine Krystin Graves MD [address] [place] [address] 06/10/2023 Hospital Encounter Endoscopy Angelo Rogers MD [address] [place] [address] 06/10/2023 Surgery Endoscopy Angelo Rogers MD [address] [place] [address] COLONOSCOPY FLEXIBLE PROXIMAL DIAGNOSTIC Scheduled Orders Name [...] 04/22/2019, Additional history exists GFR 08/02/2023 08/02/2022, 05/3 06/2020, 09/11/2020, Additional history exists DTaP,Tdap,and Td Vaccines (2 - Td or Tdap) 09/01/2023 08/31/2013, 10/09/2005, 10/09/2005, Additional history exists Albumin/Creatinine Ratio 10/22/2023 10/21/2022 DIABETES-FOOT EXAM 10/22/2023 10/21/2022, 06/14/2020 Lipid Panel 08/02/2027 08/02/2022, 10/10/2005 Pap Smear 01/04/2028 01/03/2023, 040 09/2016, 09/24/2016, Additional history exists Hepatitis C [...] Encounter for gynecological examination without abnormal finding MEMORY CARE PROGRAM DIRECTOR PAP SCREEN Routine 01/03/2023 3:30 PM EDT Pap smear for cervical cancer screening Encounter for gynecological examination without abnormal finding documented in this encounter Results * HUMAN PAPILLOMA VIRUS, PROBE (01/03/2023 3:30 PM EDT) Human Papilloma Virus Result Negative Not Applicable 01/09/2023 2:43 PM EDT [facility] Comment: No high/intermediate-risk Human Papillomavirus (HPV E6/E7 [...] developed, and its performance characteristics determined by [facility]. It has not been cleared or approved by the U.S. Food and Drug Administration (FDA). The FDA has determined that such clearance or approval is not necessary. This assay has been performed at [facility], [address] [place] [address], [place]. [address]. Pap Test Specimen from wound / Unknown 01/03/2023 3:30 PM EDT 01/07/2023 4:29 AM EDT Lakeisha Paul PA-C LAB MICRO - GENER AL ORDERABLES LAB[facility] [address] [place] [address] * MEMORY CARE PROGRAM DIRECTOR PAP SCREEN (01/03/2023 3:30 PM EDT) Final Diagnosis A. Cervix, SurePath Pap test: Adequacy: Satisfactory for evaluation. Cellular content appropriate for menstrual/clinical history. Interpretation: Negative for Intraepithelial lesion or malignancy ([employer]). AUTOMATED REVIEW: Focal Point computerized screening device (quintile 3, review). 01/09/2023 2:43 PM EDT LAB[facility]AT[facility] Performing Labs Software Packager screening performed at [facility], [address] [place] [address]. 01/09/2023 2:43 PM EDT LAB[facility]ATORY [facility] Gross Description A. Cervix. SurePath vial received labeled with the patient's identification. 01/09/2023 2:43 PM EDT LAB[facility]ATORY [facility] EDUCATIONAL NOTE: The Pap test (thin-layer cervical [...] and biopsy. 01/09/2023 2:43 PM EDT LAB[facility]ATORY [facility] Case Report Gynecologic Cytology Report Case: [id number] Authorizing Provider: Lakeisha Paul PA-C Collected: 01/03/2023 03:30 PM Ordering Location: [facility], Received: 01/03/2023 03:30 PM [place] First Screen: STELLA Torres(ASCP) Specimen: SurePath Pap test, Cervix 01/09/2023 2:43 PM EDT [facility] PAP Indication for Procedure: Routine Pap 01/09/2023 2:43 PM EDT [facility] PAP Previous Cancer: None 01/09/2023 2:43 PM EDT [facility] HPV Permissions: HPV Regardless (Including cotest) 01/09/2023 2:43 PM EDT [facility] PAP Contraceptive History: None 01/09/2023 2:43 PM EDT [facility] PAP Menstrual Status: Post-menopausal 01/09/2023 2:43 PM EDT [facility] Pap Test Specimen from wound / Unknown 01/03/2023 3:30 PM EDT 01/03/2023 3:30 PM EDT Lakeisha Paul PA-C LAB CYTOLOGY [place] [facility] [address] [place] [address] documented in this encounter Visit Diagnoses Diagnosis Pap smear for cervical cancer screening- Primary Screening for malignant neoplasm of the cervix Encounter for gynecological examination without abnormal finding Routine gynecological examination Screening mammogram for breast cancer Special screening for malignant neoplasms, colon Special screening for malignant neoplasms, colon documented in this encounter Care Teams Cover Assembler Relationship Specialty Start Date End Date Krystin Graves MD [address] [place] [address] PCP - General Family Medicine 10/21/22 documented as of this encounter
--- OUTSIDE RECORDS SUMMARY | 2023-06-30 12:06 | External Medical Summary | Summary of Care ---
Author Name Unknown Organization [facility] Address [address] [place] [address] Phone [phone] Care Team Providers Care Digital Communications Manager Name Role Phone Krystin Graves MD Primary Care Provid er Reason for Visit * Reason Onset Date Comments Patient Assistance Program 01/06/2023 Jessica roman and linda Encounter Details Date Type Department Care Team Description 01/06/[address] [address] [facility] [address] [place] [address] Patient Assistance Program ([place] and ba... 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 . documented as of this encounter (statuses as of 01/06/2023) Resolved Problems Problem Noted Date Resolved Date [...] as of this encounter (statuses as of 01/06/2023) Immunizations Name Administration Dates Next Due COVID-19 mRNA, LNP-s, No Pre serve, 2-Dose Series ([employer]) 04/17/2021,08/22/2020 Covid-19, Mrna, Lnp-s, Pf, B ivalent, 30 Mcg, IM, 12 yrs and above ([employer]) 03/20/2022,09/25/2021 Hepatitis B, 20+ yrs 03/05/2021 Pneumococcal [...] Telephone Encounter - Elizabeth Rosario RPh - 01/06/2023 12:36 PM EDT Filled out and faxed [employer] application for patient for basaglar 20 units and humalog 5 units TID. Successful confirmation received. Elizabeth Rosario, PharmD Clinical Pharmacist Medication Therapy Disease Management 01/06/2023, 12:37 PM documented in this encounter Plan of Treatment Upcoming Encounters Date Type Specialty Care Team Description 01/13/2023 Imaging Radiology 01/14/2023 Telemedicine Pharmacy [facility] [address] [place] [address] 01/24/2023 Office Visit Family Medicine Krystin Graves MD [address] [place] [address] 06/10/2023 Hospital Encounter Endoscopy Angelo Rogers MD [address] [facility] [place] [address] 06/10/2023 Surgery Endoscopy Angelo Rogers MD [address] [place] [address] COLONOSCOPY FLEXIBLE PROXIMAL DIAGNOSTIC Scheduled Procedures Name [...] colon documented in this encounter Care Teams Digital Communications Manager Relationship Specialty Start Date End Date Krystin Graves MD [address] [place] [address] PCP - General Family Medicine 10/21/22 documented as of this encounter
--- OUTSIDE RECORDS SUMMARY | 2023-06-30 12:07 | External Medical Summary | Continuity of Care Document ---
Author Name Unknown Organization [facility] [address] Address [facility] AM[address] [place] BARFIELD [id number] Care Team Providers Care Cloth Stretcher Name Role Phone Sherrill Bay Primary Care Physician [phone] Encounter [facility] [phone] Date(s): 12/30/22 - 12/30/22 [facility] [address] [facility] [address] [place] [address] Discharge Disposition: Home or Self Care Attending Physician: MD Lang David P Referring Physician: MD Lang David P Allergies, Adverse Reactions, Alerts Substance Reaction Severity Status theophylline vertigo dizziness Active Immunizations Given and Recorded Vaccine Date Status Refusal Reason influenza virus vaccine, inactivated 02/28/22 Give n influenza virus vaccine, inactivated 04/16/21 Give n hepatitis B adult vaccine 03/05/21 Given Medications Accu-Chek Softclix (28G) Lancets Start: 02/07/22 17:02:00 EDT, See Instructions, Disp# 300 each, Refills: 3, E11.9 test blood sugar 4 times daily or as needed., Pharmacy: [facility] Start Date: 02/07/22 Status: Ordered Advair Diskus 250 mcg-50 mcg Start: 10/09/21 8:23:00 EDT, 1 puff, PO, bid, Disp# 1 each, Refills: 3, Pharmacy: [facility] Start Date: 10/09/21 Stop Date: 02/06/22 Status: Ordered albuterol 90 mcg/inh inhalation powder Start: 10/10/20 8:20:00 EDT, 2 puff, 2 puffs every 6 hrs as needed Start Date: 10/10/20 Status: Ordered BD needle Ultra-Fine III Short Pen 31G x 8 mm Start: 11/12/21 8:12:00 EDT, See Instructions, Disp# 100 pen_needle, Refills: 6, use three times daily and prn, Pharmacy: [facility] Start Date: 11/12/21 Status: Ordered BD UF 11 short 3/10/8 mm Start: 06/28/22 14:30:00 EST, BD UF 11 short 3/10/8 mm, eRx Product Type: Supply, See Instructions,Disp# 180 each, Refills: 2, E11.9 use as needed for injection twice daily or as needed, Pharmacy [facility] Start Date: 06/28/22 Status: Ordered BD UF II SHORT 3/10/8MM MIS USE 1 SYRINGE TWICE DAILY Start Date: 10/08/21 Status: Ordered busPIRone 10 mg oral tablet Start: 10/08/22 10:05:00 EDT, See Instructions, Disp# 540 tab, Refills: 2, TAKE (2) TABLETS THREE TIMES DAILY., Pharmacy: [facility] Start Date: 10/08/22 Status: Ordered Contour Next Test In Vitro Strip Start: 01/01/22 9:21:00 EDT, Contour Next Test In Vitro Strip, See Instructions, Disp# 100 each, Refills: 3, USE 1 STRIP TO CHECK GLUCOSE 4 TIMES DAILY AND NEEDED, Pharmacy [facility] Start Date: 01/01/22 Status: Ordered Contour Next Test Strips 50 ct Start: 09/21/21 10:52:00 EDT, See Instructions, Disp# 100 each, Refills: 3, Test blood sugar 4x andas needed daily. and as needed E11.9., Pharmacy: [facility] Start Date: 09/21/21 Status: Ordered FreeStyle (28G) Lancets Start: 06/28/22 12:15:00 EST, See Instructions, Disp# 360 each, Refills: 3, E11.9 test 4 times daily or as needed, Pharmacy: [facility] Start Date: 06/28/22 Status: Ordered FreeStyle Thompson Lite Glucose Monitor Start: 06/28/22 12:16:00 EST, See Instructions, Disp# 1 kit, Refills: 0, E11.9 use daily x4 to testor as needed, Pharmacy: [facility] Start Date: 06/28/22 Status: Ordered Freestyle Beth 3 Sensor Start: 09/17/22 15:27:00 EDT, See Instructions, Disp# 12 each, Refills: 3, Change every 14 days, Pharmacy: [facility] Start Date: 09/17/22 Status: Ordered FreeStyle Lite Test Strips 100 ct Start: 06/28/22 12:16:00 EST, See Instructions, Disp# 360 strip, Refills: 3, to test blood sugar 4 times daily or as needed, Pharmacy: [facility] Start Date: 06/28/22 Status: Ordered Melatonin Start: 04/16/21 12:54:00 EDT Start Date: 04/16/21 Status: Ordered Microlet Lancets 100 ct Start: 10/09/21 13:00:00 EDT, See Instructions, Disp# 100 each, Refills: 3, test blood sugar 4 times daily. E11.9, Pharmacy: [facility] Start Date: 10/09/21 Status: Ordered mirtazapine 45 mg oral tablet Start: 07/12/22 8:40:00 EST, 1 tab, PO, qhs, Disp# 90 tab, Refills: 1, Pharmacy: [facility] Start Date: 07/12/22 Stop Date: 01/08/23 Status: Ordered naltrexone 50 mg oral tablet Start: 07/22/22 16:43:00 EST, 2 tab, PO, Daily, Disp# 90 tab, Refills: 3, Pharmacy: [facility] Start Date: 07/22/22 Status: Ordered Nasacort AQ 55 mcg/inh nasal spray Start: 10/22/21 14:40:00 EDT, 1 spray, each nostril, Daily, Disp# 1 each, Refills: 3, Pharmacy: [facility] Start Date: 10/22/21 Status: Ordered NovoLIN 70/30 Vial subcutaneous suspension Start: 06/28/22 14:30:00 EST, 18 unit =, subQ, Daily, Disp# 3 each, Refills: 3, 10 ml vials, Pharmacy: [facility] Start Date: 06/28/22 Stop Date: 06/23/23 Status: Ordered NovoLOG FlexPen 100 units/mL injectable solution Start: 07/30/21 13:19:00 EST, See Instructions, Disp# 3 mL, use if bs is over 250, sliding scale 250 -300 use 4 units, 301-350 6 units, 351-400 8 units over 400 call your , [facility] Start Date: 07/30/21 Status: Ordered Probiotic Formula Start: 07/12/22 8:13:00 EST Start Date: 07/12/22 Status: Ordered Vitamin B Complex Start: 10/10/20 8:22:00 EDT Start Date: 10/10/20 Status: Ordered Vitamin D3 Start: 07/12/22 8:12:00 EST Start Date: 07/12/22 Status: Ordered Problem List Condition Confirmation Course Effective Dates Status Health St [facility] Informant Alcohol use disorder Confirmed Active Anxiety Confirmed Active Asthma Confirmed Active Cirrhosis of liver Confirmed Active Diabetes Confirmed Active Gastric reflux Confirmed Active Procedures Procedure Date Related Diagnosis Body Site Status Chest X-ray 1 05/29/[address] of abdomen and pelvis wit h intravenous contrast 2 06/10/[address] of head 3 06/10/21 Completed Chest X-ray 4 04/09/[address] of abdomen and pelvis 5 01/23/[address] of brain 6 01/23/[address] of cervical spine 7 01/23/[address] of chest 8 01/23/[address] of chest 9 01/23/[address] of head 10 01/23/21 Completed CXR - Chest X-ray 11 01/23/21 Comp leted Plain X-ray of bilateral hips 12 01/23/21 Completed 1Impression: No acute cardiopulmonary findings. 21. moderately atrophic pancreas with mild interstitial and peripancreatic edema suspicious for acute pancreatitis. edema and trace fluid tracks into the pericolic gutters and dependent pelvis. 2. marked heterogeneity of the liver with hepatic steatosis and suggested cirrhosis 3. wall thickening of the cecum, ascending colon and hepatic flexure is likely related to portal colopathy. a nonspecific colitis is considered less likely 4. mild splenomegaly 5. nonobstructing left nephrolithiasis 3no acute intracranial abnormality 4no acute chest disease 51. Marked heterogeneity of th eliver with severe hepatic steatosis ad suspected cirrhosis. Mild splenomegaly which may reflect portal hypertension. Liver suboptimally assesed on this unenhanced examination. 2. Smal to moderate fluid within the abd and pelvis. Fluid measures just above water attenuation. the favors ascites however hemoperitoneum would be difficult to exclude. Suboptimal evaluation of thesolid abdominal viscera. If persistent hypotension, further evaluation with contrast enhanced CT isrecommended. 3. Mild right colon wall thickening which may be related to portal hypertension or represent a nonspecific colitis. 4. Small left lower back and inferior gluteal contusions. No retroperitoneal hematoma. 61. Trace foci of subarachnoid hemorrhage identified along the right-sided cortical sulci. This is new from 01/21/21. 2. No evidence of acute territorial ischemia by CT criteria 3. Right posterior parietal scalp injury. 7No acute fracture or subluxation 81.Slight increase in size of a small right anterior chest wall contusion. 2. Several healing right-sided rib fractures. No acute rib fractures identified. No pneumothorax. 3.Marked heterogeneity of the liver with hepatic steatosis. Upper abdominal fluid and splenomegaly.these findings are better depicted on the CT of the abdomen and pelvis which will be reported separately. 91. Small right anterior chest wall contusion 2. Several healing right-sided rib fractures. No acute fractures identified. No pneumothorax. 3. Marked heterogeneity of the liver which suggests fatty infiltration with suspected cirrhosis. Splenomegaly and small amount of ascites may indicate portal HTN, partially imaged in this exam. 101. Slight increase in small amount of acute subarachnoid hemorrhage overlying the right frontal andtemporal loes since head CT performed earlier today. Possible trace acute subarachnoid hemorrhage overlying the left frontal lobe. 2. Right posterior scalp contusion. No calvarial fracture. 11No active disease in the chest 121. No acute fracture within th epelvis or hips. 2. A few loops of mildly dilated small bowel. This may reflect an ileus. A partial small bowel obstruction is considered less likely. Results Most recent to oldest [Reference Range]: 1 HgbA1C Outside Ref Range 4.5-5.6 (11/27/22 10:46 AM) HGb A1C Outside 6.1 % (11/27/22 10:46 AM) Social History Social History Type Response Tobacco Former smoker, Cigar ettes 1 Smoking Status Never smoked cigaret mahesh Sex Female 1quit at age 22 Patient Care team information Care Team Personnel Name: URVASHI Bay Tara Position: Nurse Pract - Family Med Member Role: Lifetime Relationship Address: Address: [address] [place] [address]
[2023-06-30] MEDS ORDERED: SODIUM BICARB 8.4% INJ 50 MEQ/50 ML SYR IV STA (12:10)
[2023-06-30 12:25] LABS: INR 1.1 (0.9-1.1); Partial Thromboplastin Ratio 1.4; Partial Thromboplastin Time 39 Seconds (21-31); Prothrombin Time 12.4 Seconds (9.0-12.0)
[2023-06-30 12:28] LABS: Oxygen Saturation ABG 99.1 % (90-95); PCO2 ABG 11 mmHg (35-46); PO2 ABG 142 mmHg (80-95)
[2023-06-30] MEDS: INSULIN REGULAR 250 UNITS in SODIUM CHLORIDE 0.9% 247.5 ML IV SCH (12:28)
[2023-06-30] MEDS: INSULIN ASPART PER UNIT CHARGE SC SCH ×2 (12:31→18:48)
[2023-06-30 12:32] LABS: Allen Test Pos (Pos)
[2023-06-30 12:33] LABS: pH ABG < 7.00 (7.35-7.45)
[2023-06-30 12:45] LABS: Magnesium 2.7 mg/dl (1.7-2.4); Phosphorus 5.6 mg/dl (2.5-4.9)
[2023-06-30] MEDS ORDERED: SODIUM BICARBONATE 8.4% 150 MEQ in WATER, STERILE 1,000 ML IV SCH (12:45)
[2023-06-30 12:48] LABS: D Dimer 890 ug/L FEU (0-500)
[2023-06-30 12:51] LABS: Influenza A virus by PCR Negative (Neg); Influenza B virus by PCR Negative (Neg); RSV by PCR Negative (Neg); SARS CoV2 RNA(COVID-19) Ceph NEGATIVE (Negative)
[2023-06-30 12:55] LABS: Estimated Average Glucose 278 mg/dl; Hemoglobin A1C 11.3 % (4.5-5.6)
--- NOTE | 2023-06-30 13:49 | Electrocardiogram Report ---
Test Reason : Blood Pressure : / mmHG Vent. Rate : 132 BPM Atrial Rate : 132 BPM P-R Int : 142 ms QRS Dur : 080 ms QT Int : 298 ms P-R-T Axes : 059 019 048 degrees QTc Int : 441 ms Sinus tachycardia Poor R wave progression, consider anterior MO vs. lead placement vs. LVH Abnormal ECG When compared with ECG of 09-JUL-2022 19:36, No significant change was found Confirmed by Jimmy Rojo ([id number]) on 06/30/2023 1:49:04 PM Referred By: Confirmed By:Jimmy Rojo
--- NOTE | 2023-06-30 13:51 | History & Physical Report ---
Date of Service June 30, 2023 Assessment & Plan (1) DKA, type 1: Plan: Diabetic ketoacidosis With recent change in insulin requirements, several missed doses including day preceding admission Patient denies dysuria, no abdominal pain, no cough, no fever/chills. She does have shortness of breath. No pneumonia seen on CXR. Pending CT. Quad screen neg. BSG 424 on admission, AG 40, bicarb 4, ABG: pH less than 7, pCO2 11, O2 142, bicarb undetectable Patient given 1 amp of bicarb and started on 150mEq gtt. This was subsequently discontinued Continued on LR with KCl supplementation, patient nearing goal BSG range and D5 added. Patient is near goal range with LR boluses running, to prevent hypoglycemia and to continue insulin gtt. D5 80cc coadministered until boluses are complete and then can transition to maintenance BMP/VBG every 4 hours Insulin gtt. DKA protocol Lactate, methanol, etoh, tox screen pending Type I DM [facility] 05/08 office note reviewed. Patient recently switched from Novolin 70/30 was taking 28 units a.m./p.m. for approximately 56 units total daily dose Was switched to long-acting 35 units daily, aspart 5 units 3 times daily with meals Was previously on Jardiance has not been on this in many months due to issues with UTIs, and prior metformin was discontinued due to tolerance Respiratory Distress - Tachypneic ABG pH less than 7, pCO2 11, bicarb undetectable Admitted to the ICU, serial VBG ordered, monitor for respiratory fatigue. ICU consulted. History of alcohol use, cirrhosis Patient reports alcohol use generally in remission. Has had 1 drink per week for the last several weeks, and a few drinks on Laura. Reports she has had no alcohol use since and had only drank once a week prior to that with no withdrawal symptoms Was previously on naltrexone, stopped taking this several months ago as the prescription ran out Denies GI bleeding, hematemesis, melena. She has no abdominal pain although some nausea on admission, and no rebound or guarding Does have a history of alcohol withdrawal EtOH level pending - INR normal Child Schwartz class I INR normal, patient has an acute transaminitis of 313/226. No abdominal pain. Clinically severely volume depleted. Additional 2 L bolus pending Patient with tachycardia and poor clinical appearance suspect this is due to acute DKA, cannot r/o alcohol withdrawal although if patient history is accurate is fairly late and 6 days out for this. Benzos deferred until respiratory status improved Shortness of breath Chest x-ray without acute findings or evidence of edema/pneumonia Leukocytosis which may be reactive in the setting of DKA D-dimer is elevated, no leg swelling or calf asymmetry. CTA pending Quad screen negative Anxiety/depression Remeron, lorazepam, BuSpar, Xanax held while n.p.o. and pending clinical improvement DVT PPx: heparin Diet: NPO CODE: Full Dispo: ICU. *Signed out to [facility] Hospitalist group. [place] recommended [place] [facility], subsequently reported to have switched to [facility] PCP margarita . H&P and admit orders completed to facilitate care, pt to be transferred to [facility] service overnight and for additional care. (2) Alcoholic hepatitis: (3) Depression with suicidal ideation: History of Present Illness Primary Care Provider: Sherrill SEmre Velazquez is a 47-year-old female with a past medical history of alcohol abuse, alcohol withdrawal, pancreatitis, U admission for suicidal ideation, type I DM, splenomegaly, hepatic steatosis, asthma, GI bleed who presents to the ER with 3 days of progressive shortness of breath. Sinus tachycardia on admission without hypoxia. ETOH abose. Noncompliant with insulint. BP normal in the waiting room 1 amp bicarb + 150/h20 gtt due to ABG <7.0 A1C 11.3 Insulin 70/30, does not remember when she took her last insulin. Last ETOH use new years. Denies use int he last 7 days. Drank 3 glasses on new years. Endorses history of withdrawal, none in the last year. Normally drinking 1 day per week, wine 2-3 per sitting No cough or congestion No burning with urination. Denies polyuria. Has been very thirsty, has been peeing 'about an average amount' the last 24 hours, has been drinking a lot of vitamin water due to being thirsty. She has been taking less insulin 'than I should. I don't really take it until I eat breakfast and sometimes forget.' Has missed breakfast. PCP is [facility] [place]. Sees Dr. Graves with [facility] and PCP. Recently switched in October. +asthma. Denies wheezing. More short of breath. Increased sharply 1 day ago. No leg swelling. No leg pain. NO history of blood clots, no history of DVT/PE. No pleuritic pain. Anxiety/depression: buspar, remeron, 0.5mg ativan. Did take her buspar this morning. No insulin. Last chage in insulin regimen was one month ago with Dr. Felipe Medical History: Reviewed Medications: Reviewed Surgical History: Reviewed Family history: Reviewed Allergies: Reviewed Social History: ETOH, Code Status: Full Allergies Allergy/AdvReac Type Severity Reaction Status Date / Time theophylline AdvReac Intermediate VERTIGO Verified 06/10/21 20:50 Home Medications Medication Instructions Recorded Confirmed Type fluticasone 250 mcg-salmeterol 50 1 inh inhalation AMPM 02/27/19 06/30/23 History mcg/dose blistr powdr for inhalation (Advair Diskus) albuterol sulfate 90 mcg/actuation 2 puff inhalation UD PRN Shortness 07/23/19 06/30/23 History aerosol inhaler (Ventolin HFA) Of Breath multivitamin (Daily-Harris tablet) 1 tab PO QAM #0 tabs 07/27/19 06/30/23 Rx omeprazole 20 mg capsule,delayed 20 mg PO DAILY PRN Acid Reflux 11/10/20 06/30/23 History release ascorbic acid (vitamin C) 500 mg 500 mg PO DAILY 04/05/21 06/30/23 History tablet,extended release (Vitamin C ER) melatonin 10 mg tablet 10 mg PO HS PRN Sleep 04/05/21 06/30/23 History Potassium Otc 1 tab PO BID 04/09/21 06/30/23 History vitamin B complex 1 tab PO DAILY 04/09/21 06/30/23 History naltrexone 50 mg tablet 50 mg PO DAILY #30 tabs 06/15/21 06/30/23 Rx buspirone 10 mg tablet 20 mg PO TID 04/22/22 06/30/23 History lorazepam 1 mg tablet (Ativan) 1 mg PO Q6H PRN alcohol withdrawal 04/22/22 06/30/23 Rx #20 tabs mirtazapine 30 mg tablet 45 mg PO DAILY 04/22/22 06/30/23 History ondansetron 4 mg disintegrating 4 mg PO Q8H PRN nausea and 07/09/22 06/30/23 Rx tablet vomiting #30 tabs alprazolam 0.25 mg tablet (Xanax) 0.5 mg PO TID PRN Anxiety 06/30/23 06/30/23 History atorvastatin 20 mg tablet 20 mg PO DAILY 06/30/23 06/30/23 History benzonatate 100 mg capsule 100 mg PO TID PRN Other 06/30/23 06/30/23 History citalopram 10 mg tablet 10 mg PO DAILY 06/30/23 06/30/23 History glycopyrrolate 1 mg tablet 1 mg PO TID PRN Sweating 06/30/23 06/30/23 History insulin aspart 5 unit subcut TIDM 06/30/23 06/30/23 History (niacinamide)(U-100) 100 unit/mL(3 mL) subcutaneous pen (Fiasp FlexTouch U-100 Insulin) insulin glargine-yfgn 100 unit/mL 35 unit subcut DAILY 06/30/23 06/30/23 History subcutaneous solution (Semglee (insulin glargine-yfgn)) metformin 500 mg tablet,extended 2,000 mg PO HS 06/30/23 06/30/23 History release 24 hr Past Med/Surg History Medical History (Updated 06/30/23 @ 15:54 by Alvin Degroot DO) Acute alcoholic pancreatitis Depression with suicidal ideation Suicidal ideation Alcoholic hepatitis Hypophosphatemia Hypomagnesemia Metabolic acidosis Thrush Alcoholic intoxication Thrombocytopenia Alcohol withdrawal Acute alcoholic hepatitis Diabetes mellitus type 1 Acidosis, metabolic Acute pancreatitis Electrolyte abnormality DVT prophylaxis Alcohol withdrawal Alcohol abuse Anxiety Asthma Surgical History History of dental surgery wisdom teeth History of esophagogastroduodenoscopy (EGD) Family History Father Prediabetes Grandfather (Paternal) Diabetes Mother Hypertension MVP (mitral valve prolapse) Social History Smoking Status: Former smoker Tobacco Type: Cigarettes Age Quit Using Tobacco: 39; packs per day: 1; Second Hand Exposure: No; Do You Dip or Chew Tobacco: No; Hx Alcohol Use: Yes Alcohol type: wine Alcohol type Comment: 4 glasses wine daily Hx Substance Use: No Preferred Language: Georgian Communication Ability: Effective Visual Impairment: No Limitations Supervisor Lending Activities Required: No Beliefs That Will Affect Care: None marital status: marital status details: Single parent Current Living Situation: Alone Current Living Situation Comment: daughter current occupational status: unemployed How many Children do You have: 1 Feels Safe at Home: Yes Childhood Exposure to Second-Hand Smoke: No Gender Identity: Female Assistive Devices: None Physical Exam Physical Exam: General: Oriented to name, place, year, and month not oriented today. Answers questions appropriately. Ill-appearing HEENT: Atraumatic, normocephalic. Mucous membranes dry Pulm: Rapid deep/scheduling coordinator small breathing on arrival, no wheezing Cardiac: Regular, tachycardic .radial pulses intact and symmetrical. Abdominal: Nontender, nondistended, soft. BS present. Extremities: Warm, dry. No edema Results & Data Results & Data Vital Signs (Past 12 Hours) Vital Signs Temp Pulse Resp BP Pulse Ox O2 Del Method 06/30/23 12:16 125 H 06/30/23 09:44 Room Air 06/30/23 09:36 36.5 C 122 H 22 129/80 99 Room Air PG Care Time/CCT Total # of Minutes Spent Total Time Spent with Patient: Total time spent is greater than 50% in coordination of care (as documented) at patient's floor/unit and/or counseling patient: Coding Level of Care Code 74509 INT INP/OBS CARE 3/75MIN Diagnoses DKA, type 1 E10.10 Alcoholic hepatitis K70.10 Depression with suicidal ideation F32.A; R45.851
[2023-06-30] MEDS ORDERED: DEXTROSE 5% 1,000 ML IV SCH (14:09)
[2023-06-30] MEDS ORDERED: LACTATED RINGER'S 2,000 ML IV ONE (14:09)
[2023-06-30] MEDS ORDERED: POTASSIUM CHLORIDE 30 MEQ in LACTATED RINGER'S 1,000 ML IV SCH (14:30)
[2023-06-30] MEDS ORDERED: PENDING D5 1/2NS+20mEq KCL IVF SCH (14:30)
--- NOTE | 2023-06-30 14:55 | Critical Care Consultation ---
Date of Consultation June 30, 2023 Assessment & Plan (1) Metabolic acidosis due to diabetes mellitus: (2) Hypercalcemia: (3) Polycythemia: Plan Impression: 47-year-old female with history of diabetes admitted with severe DKA likely secondary to medical noncompliance. Recommendations: 1. Severe DKA: Patient is under volume resuscitated currently. Will give an additional 2 L of crystalloid at this point in time. If she remains tachycardic, additional IV crystalloid will be required. Will avoid normal saline as this will potentiate her metabolic acidosis. She will be given LR at this point in time. Continue insulin infusion. Once blood glucose drops down below 200, will initiate glucose containing IV fluids. Insulin drip will need to be maintained until anion gap is closed. Suspect the patient's tachypnea will resolve with resolution of her acidosis. Will discontinue bicarb. Bicarb is relatively contraindicated in the absence of ventricular arrhythmias as it may potentiate intracellular acidosis and is not typically required if adequate IV fluids and insulin are administered. Patient will need to meet with the sales negotiator and have close outpatient follow-up with her primary care provider. Will ask pharmacy to assist with adjusting the patient's insulin dose going forward once she is ready to transition off the drip. 2. Electrolyte abnormalities: Will need to follow calcium, potassium, and phosphate. These are elevated or upper limits of normal currently but will continue to trend over time. Likelihood that these will need to be replaced as acidosis resolves and electrolyte shifts are taking place. 3. Polycythemia: Suspect this represents significant hemoconcentration. Again continue aggressive crystalloid volume expansion and recheck. 4. Noncaloric clears until the patient is off the insulin infusion. 5. Abnormal LFTs: Likely secondary to underlying metabolic process. Will repeat in a.m.. History of nonalcoholic steatohepatitis in the past. Also history of alcohol abuse in the past. Synthetic function appears preserved with normal INR and albumin 6. GI prophylaxis none indicated currently. Will continue to follow and advance diet as tolerated. 7. DVT prophylaxis SCDs and heparin for now. The above recommendations and plan were discussed with the patient as well as with the ER nurse at bedside. Questions were answered to the best my ability. She expressed understanding and is in agreement with plan as outlined. Patient has multiple metabolic derangements which are life-threatening. A total of 40 minutes in critical care time was spent in evaluation management and coordinating care for this patient. History of Present Illness History of Present Illness Asked by hospitalist to assist in evaluation management of this patient with severe DKA. History is obtained from discussion with the patient as well as review the electronic medical record. Patient is a 47-year-old female with a history of DKA and alcohol abuse who apparently has been somewhat lax and her insulin regimen at home. She presented to the emergency room today complaining of shortness of breath. This has been going on for about 3 days prior to admission. She has not had fevers chills or night sweats. No cough or sputum production. No significant wheezing although she did receive a nebulizer by EMS in transport. She does not carry a diagnosis of COPD or asthma. In the emergency room she was noted to be tachypneic and tachycardic. Blood gas demonstrated severe metabolic acidosis consistent with DKA. The patient received 2 L of crystalloid as well as an amp of bicarb and was initiated on a bicarb infusion as well as an insulin drip currently running at 7 units/h. The patient denies nausea or vomiting or abdominal pain. She has not had lower extremity edema. No ill contacts. She not having any sinus complaints headaches or vision changes. No syncope presyncope or palpitations. Allergies Allergy/AdvReac Type Severity Reaction Status Date / Time theophylline AdvReac Intermediate VERTIGO Verified 06/10/21 20:50 Home Medications Medication Instructions Recorded Confirmed Type fluticasone 250 mcg-salmeterol 50 1 inh inhalation AMPM 02/27/19 06/30/23 History mcg/dose blistr powdr for inhalation (Advair Diskus) albuterol sulfate 90 mcg/actuation 2 puff inhalation UD PRN Shortness 07/23/19 06/30/23 History aerosol inhaler (Ventolin HFA) Of Breath multivitamin (Daily-Harris tablet) 1 tab PO QAM #0 tabs 07/27/19 06/30/23 Rx omeprazole 20 mg capsule,delayed 20 mg PO DAILY PRN Acid Reflux 11/10/20 06/30/23 History release ascorbic acid (vitamin C) 500 mg 500 mg PO DAILY 04/05/21 06/30/23 History tablet,extended release (Vitamin C ER) melatonin 10 mg tablet 10 mg PO HS PRN Sleep 04/05/21 06/30/23 History Potassium Otc 1 tab PO BID 10/18/21 01/08/24 History vitamin B complex 1 tab PO DAILY 04/09/21 06/30/23 History naltrexone 50 mg tablet 50 mg PO DAILY #30 tabs 06/15/21 06/30/23 Rx buspirone 10 mg tablet 20 mg PO TID 04/22/22 06/30/23 History empagliflozin 10 mg tablet 10 mg PO DAILY 04/22/22 04/22/22 History (Jardiance) lorazepam 1 mg tablet (Ativan) 1 mg PO Q6H PRN alcohol withdrawal 04/22/22 06/30/23 Rx #20 tabs mirtazapine 30 mg tablet 45 mg PO DAILY 04/22/22 06/30/23 History alprazolam 0.25 mg tablet (Xanax) 0.25 mg PO TID #11 tabs 07/09/22 06/30/23 Rx ondansetron 4 mg disintegrating 4 mg PO Q8H PRN nausea and 07/09/22 06/30/23 Rx tablet vomiting #30 tabs atorvastatin 20 mg tablet 20 mg PO DAILY 06/30/23 06/30/23 History insulin aspart 5 unit subcut TIDM 06/30/23 06/30/23 History (niacinamide)(U-100) 100 unit/mL(3 mL) subcutaneous pen (Fiasp FlexTouch U-100 Insulin) insulin glargine-yfgn 100 unit/mL 35 unit subcut DAILY 06/30/23 06/30/23 History subcutaneous solution (Semglee (insulin glargine-yfgn)) Patient History Medical History Acute alcoholic hepatitis Acute alcoholic pancreatitis Acute pancreatitis Alcohol abuse Alcohol withdrawal Alcohol withdrawal Alcoholic hepatitis Alcoholic intoxication Anxiety Asthma Depression with suicidal ideation Diabetes mellitus type 1 Surgical History History of dental surgery wisdom teeth History of esophagogastroduodenoscopy (EGD) Family History Father Prediabetes Grandfather (Paternal) Diabetes Mother Hypertension MVP (mitral valve prolapse) Social History Smoking Status: Never smoker Tobacco Type: Cigarettes Age Quit Using Tobacco: 39; packs per day: 1; Second Hand Exposure: No; Do You Dip or Chew Tobacco: No; Hx Alcohol Use: Yes Alcohol type: hard liquor Alcohol type Comment: 4 glasses wine daily Hx Substance Use: No Preferred Language: Polish Communication Ability: Effective Visual Impairment: No Limitations Skeins Yarn Examiner Required: No Beliefs That Will Affect Care: None marital status: marital status details: Single parent Current Living Situation: Alone Current Living Situation Comment: daughter current occupational status: unemployed How many Children do You have: 1 Feels Safe at Home: Yes Childhood Exposure to Second-Hand Smoke: No Gender Identity: Female Assistive Devices: None Review of Systems Review of Systems: Please refer to admission H&P for additional details. No changes Physical Exam Constitutional: well developed and + in distress Neck: trachea midline, no thyromegaly Respiratory: + tachypneic; no cough Auscultation: no crackles and no wheezes Cardiovascular: Rate/Rhythm: regular rhythm and + tachycardic Extremities: no edema Gastrointestinal (Abdomen): normal bowel sounds, soft, nontender, no hepatosplenomegaly Musculoskeletal: Extremities: extremities normal to inspection Skin: no rashes, warm and dry Neurologic: Nonfocal exam Lymphatic: no cervical lymphadenopathy Results & Data Results & Data Vital Signs (Past 12 Hours) Vital Signs Temp Pulse Resp BP Pulse Ox O2 Del Method 06/30/23 12:16 125 H 06/30/23 09:44 Room Air 06/30/23 09:36 36.5 C 122 H 22 129/80 99 Room Air Critical Care Results & Data Vital Signs (Past 12 Hours) Vital Signs Temp Pulse Resp BP Pulse Ox O2 Del Method 06/30/23 12:16 125 H 06/30/23 09:44 Room Air 06/30/23 09:36 36.5 C 122 H 22 129/80 99 Room Air Lab & Micro Results (Past 24 Hours) RBC 5.30 M/uL (4.20-5.40) 06/30/23 WBC 11.41 K/ul (4.8-10.8) H 06/30/23 Hgb 17.2 g/dl (12.0-16.0) H 06/30/23 Hct 51.3 % (37.0-47.0) H 06/30/23 MCV 96.8 fL (80.0-100.0) 06/30/23 MCH 32.5 pg (25.0-34.0) 06/30/23 MCHC 33.5 g/dL (32.0-36.0) 06/30/23 RDW Standard Deviation 46.1 fL (36.4-46.3) 06/30/23 RDW Coefficient of Variation 12.8 % (11.5-14.5) 06/30/23 Plt Count 267 K/uL (130-400) 06/30/23 MPV 10.2 fL (9.4-12.4) 06/30/23 Neutrophils (%) (Auto) 72.7 % 06/30/23 Lymphocytes (%) (Auto) 13.8 % 06/30/23 Monocytes # (Auto) 1.12 K/uL (0.11-0.59) H 06/30/23 Eosinophils # (Auto) 0.04 K/uL (0.00-0.50) 06/30/23 Immature Granulocyte % (Auto) 2.2 % 06/30/23 Neutrophils # (Auto) 8.29 K/uL (1.40-6.50) H 06/30/23 Lymphocytes # (Auto) 1.58 K/uL (1.20-3.40) 06/30/23 Monocytes # (Auto) 1.12 K/uL (0.11-0.59) H 06/30/23 Eosinophils # (Auto) 0.04 K/uL (0.00-0.50) 06/30/23 Basophils # (Auto) 0.13 K/uL (0.00-0.20) 06/30/23 Immature Granulocyte # (Auto) 0.25 K/uL (0.01-0.20) H 06/30 Na 135 mmol/L (136-145) L 06/30/23 K 4.0 mmol/L (3.5-5.1) 06/30/23 Cl 99 mmol/L (98-107) 06/30/23 CO2 4 mmol/L (21-32) L* 06/30/23 Anion Gap 32 (3-11) H 06/30/23 BUN 14 mg/dl (6-23) 06/30/23 Creatinine 1.13 mg/dl (0.6-1.2) 06/30/23 Estimated GFR ( Amer) 67.0 ml/min 06/30/23 Estimated GFR (Non-Af Amer) 57.8 ml/min 06/30/23 BUN/Creatinine Ratio 12.4 (10-20) 06/30/23 Glu 424 mg/dl (70-99(Fasting)) H* 06/30/23 Ca 10.6 mg/dl (8.6-10.3) H 06/30/23 Phosphorus Level 5.6 mg/dl (2.5-4.9) H 06/30/23 Total Bilirubin 1.0 mg/dl (0.2-1.0) 06/30/23 AST 313 U/L (13-39) H 06/30/23 ALT 226 U/L (7-52) H 06/30/23 Alkaline Phosphatase 365 U/L (34-104) H 06/30/23 TP 8.8 gm/dl (6.0-8.3) H 06/30/23 Albumin 5.4 gm/dl (3.4-5.0) H 06/30/23 Globulin 3.4 gm/dl (2.5-4.0) 06/30/23 Albumin/Globulin Ratio 1.6 (0.9-2) 06/30/23 Mg 2.7 mg/dl (1.7-2.4) H 06/30/23 12:11 Calcium Level 10.6 mg/dl (8.6-10.3) H 06/30/23 10:40 Prothromb Time International Ratio 1.1 (0.9-1.1) 06/30/23 11:2 5 Arterial Blood pH < 7.00 (7.35-7.45) L* 06/30/23 12:11 Arterial Blood Partial Pressure CO2 11 mmHg (35-46) L 06/30/23 12:11 Arterial Blood Partial Pressure O2 142 mmHg (80-95) H 06/30/23 12:11 Arterial Blood HCO3 TNP 06/30/23 12:11 Arterial Blood Base Excess TNP 06/30/23 12:11 Arterial Blood Oxygen Saturation 99.1 % (90-95) H 06/30/23 12:1 1 Blood Gas Oxygen Given ROOM AIR 06/30/23 12:11 Raimundo Test Pos (Pos) 06/30/23 12:11 Diagnostic Findings (Past 24 Hours) Chest X-Ray 06/30/23 09:45 XR chest 1V not portable CLINICAL HISTORY: Chest pain, nonspecific TECHNIQUE: Single frontal radiograph of the chest was obtained. Comparison: Comparison is made to chest radiograph 05/29/2022 FINDINGS: No lines and tubes are seen. The cardiomediastinal silhouette is normal. The lungs are clear. No evidence of pleural effusion or pneumothorax. IMPRESSION: No acute chest disease. ACT 112: Negative or not required by law. Electronically signed by: Sidney Maya M.D. 06/30/2023 10:17 AM I & O Totals 24 Hours 06/29/23 06/30/23 07/01/23 06:59 06:59 06:59 Intake Total 1999 Balance 1999 Cumulative 06/30/23 09:23 thru 06/30/23 14:16 Intake Total 1999 Balance 1999 RT Ventilator Mngmt (Last Documented) Ventilator Ordered Settings Respiratory Rate 22 06/30/23 09:36 Ventilator - PT Measurements Respiratory Rate 22 Coding Level of Care Code 26753 CRITICAL CARE 1ST 30-74M Diagnoses Metabolic acidosis due to diabetes mellitus E11.10 Hypercalcemia E83.52 Polycythemia D75.1
[2023-06-30 16:46] LABS: Acetaminophen < 3 ug/ml (10-30); Salicylate < 3.0 mg/dl (3.0-30)
[2023-06-30] MEDS: POTASSIUM CHLORIDE IV SCH ×3 (17:10→23:18)
[2023-06-30] MEDS: D5W AND LACTATED RINGERS IV SCH ×3 (17:10→23:18)
[2023-06-30 17:16] LABS: BUN Creatinine Ratio 16.5 (10-20); Calcium 8.2 mg/dl (8.6-10.3); Creatinine Clr Calc Pharmacy 76.3 ml/min; Est GFR (African American) 94.6 ml/min; Est GFR (Non-African American) 81.6 ml/min; Potassium 2.9 mmol/L (3.5-5.1)
[2023-06-30 17:59] LABS: Thyroid Stimulating Hormone 1.732 uIu/ml (0.300-4.500)
[2023-06-30] MEDS ORDERED: SODIUM PHOSPHATE 3 MMOL/1 ML INFUSION IV STA (18:11)
[2023-06-30] MEDS ORDERED: SODIUM PHOSPHATE 21 MMOL in SODIUM CHLORIDE 0.9% 500 ML IV ONE (18:15)
[2023-06-30] MEDS ORDERED: POTASSIUM CHLORIDE CRTAB 20 MEQ TABCR PO STA ×3 (18:27→23:39)
[2023-06-30] MEDS ORDERED: PLASMA-LYTE A 500 ML IV ONE ×2 (18:28→19:20)
[2023-06-30 19:18] LABS: Amphetamines+Metham, Urine Neg (Neg); Barbiturates, Urine Neg (Neg); Benzodiazepine, Urine Neg (Neg); Cocaine, Urine Neg (Neg); MDMA (Ecstacy), Urine Neg (Neg); Marijuana, Urine Neg (Neg); Methadone, Urine Neg (Neg); Opiate, Urine Neg (Neg); Phencyclidine, Urine Neg (Neg)
[2023-06-30] MEDS: POTASSIUM CHLORIDE / WTR 10 MEQ/100 ML PLCT IV SCH ×2 (19:51→21:31)
[2023-06-30] MEDS: HEPARIN SOD 5,000 UNIT/0.5 ML VIAL SQ SCH (20:15)
[2023-06-30 21:06] LABS: Anion Gap 26 (3-11); BUN Creatinine Ratio 14.8 (10-20); Blood Urea Nitrogen 16 mg/dl (6-23); Calcium 8.8 mg/dl (8.6-10.3); Carbon Dioxide 6 mmol/L (21-32); Chloride 109 mmol/L (98-107); Creatinine Clr Calc Pharmacy 61.5 ml/min; Est GFR (African American) 70.8 ml/min; Est GFR (Non-African American) 61.1 ml/min; Glucose 164 mg/dl (70-99(Fasting)); Phosphorus < 1.0 mg/dl (2.5-4.9); Sodium 141 mmol/L (136-145)
[2023-06-30] MEDS ORDERED: LACTATED RINGER'S 1,000 ML IV ONE (22:48)
[2023-06-30 23:28] LABS: Magnesium 1.8 mg/dl (1.7-2.4); Potassium 3.6 mmol/L (3.5-5.1)
[2023-06-30] MEDS: ALPRAZolam 0.5 MG TABLET PO PRN (23:30)
[2023-07-01] MEDS ORDERED: IBUPROFEN 600 MG TAB PO STA (01:02)
[2023-07-01] MEDS: MAGNESIUM SULFATE / D5W 1 GM/100 ML BAG IV SCH ×2 (01:06→03:00)
[2023-07-01 01:43] LABS: BUN Creatinine Ratio 13.4 (10-20); Calcium 8.5 mg/dl (8.6-10.3); Creatinine Clr Calc Pharmacy 59.3 ml/min; Est GFR (African American) 67.7 ml/min; Est GFR (Non-African American) 58.5 ml/min
[2023-07-01] MEDS ORDERED: LACTATED RINGER'S 500 ML IV ONE (01:52)
[2023-07-01] MEDS ORDERED: POTASSIUM PHOS 3 MMOL/1 ML INFUSION IV STA ×3 (01:52→18:05)
[2023-07-01] MEDS ORDERED: POTASSIUM PHOSPHATE 18 MMOL in SODIUM CHLORIDE 0.9% 500 ML IV ONE ×2 (02:30→18:15)
[2023-07-01] MEDS: D5W AND LACTATED RINGERS IV SCH ×2 (04:44→10:14)
[2023-07-01] MEDS: POTASSIUM CHLORIDE IV SCH ×2 (04:44→10:14)
[2023-07-01 05:54] LABS: BUN Creatinine Ratio 10.8 (10-20); Calcium 8.7 mg/dl (8.6-10.3); Creatinine Clr Calc Pharmacy 55.4 ml/min; Est GFR (African American) 62.3 ml/min; Est GFR (Non-African American) 53.8 ml/min; Phosphorus 1.4 mg/dl (2.5-4.9); Potassium 4.1 mmol/L (3.5-5.1)
--- NOTE | 2023-07-01 07:18 | Critical Care Progress Note ---
Date of Service July 01, 2023 Assessment & Plan (1) DKA (diabetic ketoacidosis): (2) Hypophosphatemia: (3) Diabetes: (4) Anxiety: (5) Elevated LFTs: Plan (1) Metabolic acidosis due to diabetes mellitus: (2) Hypercalcemia: (3) Polycythemia: Plan Impression: 47 yo F w/ a PMHx of T2DM (per pt though chart says T1DM), anxiety/depression, asthma, admitted with severe DKA likely secondary to medical noncompliance. Recommendations: 1. Severe DKA/T2DM: Patient is under volume resuscitated currently. Will give an additional 2 L of crystalloid at this point in time. If she remains tachycardic, additional IV crystalloid will be required. Will avoid normal saline as this will potentiate her metabolic acidosis. She will be given LR at this point in time. Continue insulin infusion. Once blood glucose drops down below 200, will initiate glucose containing IV fluids. Insulin drip will need to be maintained until anion gap is closed. Suspect the patient's tachypnea will resolve with resolution of her acidosis. Will discontinue bicarb. Bicarb is relatively contraindicated in the absence of ventricular arrhythmias as it may potentiate intracellular acidosis and is not typically required if adequate IV fluids and insulin are administered. Patient will need to meet with the community health educator and have close outpatient follow-up with her primary care provider. Will ask pharmacy to assist with adjusting the patient's insulin dose going forward once she is ready to transition off the drip. - A1C, 11.3 - consult w/ certified breastfeeding educator placed 2. Renal/Electrolyte abnormalities: Will need to follow calcium, potassium, and phosphate. These are elevated or upper limits of normal currently but will continue to trend over time. Likelihood that these will need to be replaced as acidosis resolves and electrolyte shifts are taking place. - AM labs: Ca, 8.7; K, 4.1; P, 1.4; Mg, 1.8; AG, 21; HCO3, 9; Glu, 333 - trend w/ CMP, P, Mg, POC Glu - latest labs: K, 3.5; P, < 1.0; AG, 14; HCO3, 13; Glu, 188 - currently on 15 mmol sodium phosphate, IV; 30 mEqs KCl, IV; 3. Polycythemia --> Anemia/leukopenia: Suspect this represents significant hemoconcentration --> Again continue aggressive crystalloid volume expansion and recheck. Now likely hemodilution, dilution secondary to aggressive crystalloid fluid administration. - Hgb, 11.3; WBC, 2.66; Plts, 87 4. Diet/GI -Noncaloric clears until the patient is off the insulin infusion; follow and advance diet as tolerated once on basal/bolus insulin. -GI prophylaxis none indicated currently. 5. Abnormal LFTs: Likely secondary to underlying metabolic process. Will repeat in a.m.. History of nonalcoholic steatohepatitis in the past. Also history of alcohol abuse in the past. Synthetic function appears preserved with normal INR and albumin. - ALT, 226; AST, 313 6.. DVT prophylaxis SCDs and heparin for now. 7. Anxiety/depression. - re-start patient's buspirone, 20 mg, PO, TID and citalopram, 10 mg, PO, daily 8. Asthma - re-start patient's albuterol rescue inhaler, 2 puffs, PRN Admission and Anticipated Discharge Date Admission Date: June 30, 2023 Supervising Physician Co-Signing Physician Notes Patient seen and examined. EMR reviewed. Discussed on multidisciplinary rounds and with critical care nurse at the bedside as well as with family practice resident. Agree with assessment plan as noted. Patient appears to be responding to insulin infusion. On her most recent gas this afternoon her anion gap is closed. Will transition to subcutaneous insulin and after an hour or 2 we will discontinue the insulin infusion. Patient will meet with diabetic nurse educator. Hold off on starting oral medications. Will need continued pharmacy management for glycemic control. No evidence of asthma or breathing difficulties which would necessitate inhalers. Will require PT and OT evaluations. The patient appears to be responding appropriately to management and her insulin drip is off. She can transfer out of the intensive care unit. Critical care services will sign off. Feel free to contact us with additional critical care issues. Subjective Impression: 47 yo F w/ a PMHx of T2DM, anxiety/depression, asthma, admitted with severe DKA likely secondary to medical noncompliance. Patient has been using basal-bolus insulin (insulin glargine/insulin aspart) at home but, per pt, was decreasing number of shots she was giving herself because she felt her blood sugar levels 'were all over the place'. Patient appears to have some URI-type symptoms: increased nasal congestion, cough, chest congestion, though she did test negative for flu, COVID, and RSV in ED. Review of Systems Constitutional: + fatigue; no fever, no chills and no garth dy aches Eyes: no diplopia and no worsening vision Respiratory: + cough and + dyspnea Cardiovascular: no chest pain Additional Comments: patient feels increased heart rate Gastrointestinal: + nausea and + vomiting (mostly dry-heav ing at this pt); no diarrhea/loose stools Genitourinary: + urinary frequency (receiving lots of f luids after osmotic diuresis); no dysuria Neurologic: no tingling and no numbness Psychiatric: no substance abuse (no pot, no other rec drugs; no alcohol since New Year's Day) Physical Exam Constitutional: + ill appearing, + obese and cooperative Eyes: normal visual sena by confrontation and PERRL Respiratory: + labored breathing, + cough, able to sp eak in complete sentences and + tachypneic Cardiovascular: RRR, no murmur, no edema Extremities: no calf tenderness and no pedal edema Gastrointestinal (Abdomen): Inspection/Auscultation: abdomen normal to inspection and normal bowel sounds Psychiatric: A+Ox3, euthymic affect Results & Data Results & Data Vital Signs (Past 12 Hours) Vital Signs Temp Pulse Resp BP Pulse Ox 07/01/23 07:00 109 H 31 H 99 07/01/23 06:30 87 25 H 97 07/01/23 06:00 109/77 07/01/23 06:00 97 H 33 H 99 07/01/23 05:30 104 H 23 100 07/01/23 05:00 120/82 07/01/23 05:00 106 H 28 H 98 07/01/23 04:34 112/84 07/01/23 04:34 114 H 44 H 100 07/01/23 04:30 107 H 23 99 07/01/23 04:00 99 H 28 H 99 07/01/23 03:30 36.4 C L 96 H 39 H 100 07/01/23 03:00 128/78 07/01/23 03:00 94 H 22 100 07/01/23 02:30 96 H 29 H 100 07/01/23 02:00 124/82 07/01/23 02:00 100 H 40 H 100 07/01/23 01:30 108 H 43 H 100 07/01/23 01:00 115/80 07/01/23 01:00 109 H 46 H 100 07/01/23 00:30 113 H 22 100 07/01/23 00:00 114 H 42 H 100 07/01/23 00:00 147/92 H 06/30/23 23:30 135 H 25 H 98 06/30/23 23:00 117 H 35 H 100 06/30/23 23:00 147/91 H 06/30/23 22:30 131 H 41 H 99 06/30/23 22:00 127/90 06/30/23 22:00 112 H 27 H 100 06/30/23 21:04 128 H 27 H 98 06/30/23 21:04 140/107 H 06/30/23 21:00 136 H 25 H 98 06/30/23 20:00 136 H 26 H 100 06/30/23 20:00 154/92 H (1) DKA (diabetic ketoacidosis) Diabetes mellitus complication detail: without coma
--- NOTE | 2023-07-01 07:45 | Hospitalist Progress Note ---
Date of Service July 01, 2023 Assessment & Plan (1) DKA, type 1: Plan: Diabetic ketoacidosis With recent change in insulin requirements, several missed doses including day preceding admission ABG: pH less than 7, pCO2 11, O2 142, bicarb undetectable Patient given 1 amp of bicarb and started on bicarb 150mEq gtt. This was subsequently discontinued Continued on LR with KCl supplementation, patient nearing goal BSG range and D5 added. Insulin gtt. DKA protocol Type I DM office note reviewed. Patient recently switched from Novolin 70/30 was taking 28 units a.m./p.m. for approximately 56 units total daily dose Was switched to long-acting 35 units daily, aspart 5 units 3 times daily with meals Was previously on Jardiance has not been on this in many months due to issues with UTIs, and prior metformin was discontinued due to tolerance Respiratory Distress - Tachypneic ABG pH less than 7, pCO2 11, bicarb undetectable Admitted to the ICU, serial VBG ordered, monitor for respiratory fatigue. ICU consulted. Shortness of breath Chest x-ray without acute findings or evidence of edema/pneumonia Leukocytosis which may be reactive in the setting of DKA D-dimer is elevated, no leg swelling or calf asymmetry. CTA pending Quad screen negative (2) Alcoholic hepatitis: Plan: History of alcohol use, cirrhosis Patient reports alcohol use generally in remission. Has had 1 drink per week for the last several weeks, and a few drinks on Laura. Reports she has had no alcohol use since and had only drank once a week prior to that with no withdrawal symptoms Was previously on naltrexone, stopped taking this several months ago as the prescription ran out Denies GI bleeding, hematemesis, melena. She has no abdominal pain although some nausea on admission, and no rebound or guarding Does have a history of alcohol withdrawal EtOH level pending - INR normal Child Schwartz class I INR normal, patient has an acute transaminitis of 313/226. No abdominal pain. Clinically severely volume depleted. Additional 2 L bolus pending (3) Depression with suicidal ideation: Plan: Anxiety/depression Remeron, lorazepam, BuSpar, Xanax held while n.p.o. and pending clinical improvement Plan DVT PPx: heparin Diet: NPO CODE: Full Dispo: ICU. *[place] out [place] [facility] [place]. Pt recommended for admission to [facility] [place], subsequently reported to have switched [place] [facility] [place] thi [place]. H&P and admit orders completed to facilitate care, pt to be transferred [place] [facility] [place] and for additional care. Admission and Anticipated Discharge Date Admission Date: June 30, 2023 Results & Data Results & Data Vital Signs (Past 12 Hours) Vital Signs Temp Pulse Resp BP Pulse Ox 07/01/23 07:00 109 H 31 H 99 07/01/23 06:30 87 25 H 97 07/01/23 06:00 109/77 07/01/23 06:00 97 H 33 H 99 07/01/23 05:30 104 H 23 100 07/01/23 05:00 120/82 07/01/23 05:00 106 H 28 H 98 07/01/23 04:34 112/84 07/01/23 04:34 114 H 44 H 100 07/01/23 04:30 107 H 23 99 07/01/23 04:00 99 H 28 H 99 07/01/23 03:30 97.5 F L 96 H 39 H 100 07/01/23 03:00 128/78 07/01/23 03:00 94 H 22 100 07/01/23 02:30 96 H 29 H 100 07/01/23 02:00 124/82 07/01/23 02:00 100 H 40 H 100 07/01/23 01:30 108 H 43 H 100 07/01/23 01:00 115/80 07/01/23 01:00 109 H 46 H 100 07/01/23 00:30 113 H 22 100 07/01/23 00:00 114 H 42 H 100 07/01/23 00:00 147/92 H 06/30/23 23:30 135 H 25 H 98 06/30/23 23:00 117 H 35 H 100 06/30/23 23:00 147/91 H 06/30/23 22:30 131 H 41 H 99 06/30/23 22:00 127/90 06/30/23 22:00 112 H 27 H 100 06/30/23 21:04 128 H 27 H 98 06/30/23 21:04 140/107 H 06/30/23 21:00 136 H 25 H 98 06/30/23 20:00 136 H 26 H 100 06/30/23 20:00 154/92 H PG Care Time/CCT Total # of Minutes Spent Total Time Spent with Patient: Total time spent is greater than 50% in coordination of care (as documented) at patient's floor/unit and/or counseling patient: Coding Diagnoses DKA, type 1 E10.10 Alcoholic hepatitis K70.10 Depression with suicidal ideation F32.A; R45.851
[2023-07-01 07:48] LABS: Hematocrit (blood only) 33.4 % (37.0-47.0); Hemoglobin 11.6 g/dl (12.0-16.0); Mean Corpuscular Hgb Conc 34.7 g/dL (32.0-36.0); Mean Corpuscular Volume 92.3 fL (80.0-100.0); RDW Standard Deviation 43.5 fL (36.4-46.3); Red Blood Count 3.62 M/uL (4.20-5.40); White Blood Count 2.66 K/ul (4.8-10.8)
[2023-07-01 07:58] LABS: Basophils # (auto) 0.01 K/uL (0.00-0.20); Basophils % (auto) 0.4 %; Immature Granulocytes # (auto) 0.01 K/uL (0.01-0.20); Immature Granulocytes % (auto) 0.4 %; Lymphocytes # (auto) 0.42 K/uL (1.20-3.40); Lymphocytes % (auto) 15.8 %; Mean Platelet Volume 9.9 fL (9.4-12.4); Monocytes # (auto) 0.34 K/uL (0.11-0.59); Monocytes % (auto) 12.8 %; Neutrophils # (auto) 1.88 K/uL (1.40-6.50); Neutrophils % (auto) 70.6 %; Platelet Count 87 K/uL (130-400); Platelet Estimate Decreased (Normal)
[2023-07-01] MEDS: INSULIN ASPART PER UNIT CHARGE SC SCH ×5 (08:19→20:26)
[2023-07-01] MEDS: HEPARIN SOD 5,000 UNIT/0.5 ML VIAL SQ SCH ×2 (08:19→20:07)
[2023-07-01] MEDS: ATORVASTATIN 20 MG TAB PO SCH (08:19)
[2023-07-01] MEDS ORDERED: CITALOPRAM 20 MG TAB PO STA (09:25)
[2023-07-01 09:49] LABS: Anion Gap 14 (3-11); BUN Creatinine Ratio 11.5 (10-20); Blood Urea Nitrogen 12 mg/dl (6-23); Calcium 8.5 mg/dl (8.6-10.3); Carbon Dioxide 13 mmol/L (21-32); Chloride 113 mmol/L (98-107); Creatinine Clr Calc Pharmacy 63.9 ml/min; Est GFR (African American) 74.1 ml/min; Est GFR (Non-African American) 63.9 ml/min; Glucose 188 mg/dl (70-99(Fasting)); Potassium 3.5 mmol/L (3.5-5.1); Sodium 140 mmol/L (136-145)
[2023-07-01 09:56] LABS: Phosphorus < 1.0 mg/dl (2.5-4.9)
[2023-07-01] MEDS ORDERED: SODIUM PHOSPHATE 3 MMOL/1 ML INFUSION IV STA (10:04)
[2023-07-01] MEDS ORDERED: SODIUM PHOSPHATE 15 MMOL in SODIUM CHLORIDE 0.9% 250 ML IV ONE (10:30)
--- NOTE | 2023-07-01 11:35 | Hospitalist Progress Note ---
Date of Service July 01, 2023 Assessment & Plan (1) Hypophosphatemia: (2) DKA (diabetic ketoacidosis): (3) Anxiety: (4) Depression: Plan Pt is a 47yoF with a PMHx significant for alcohol abuse with Hx of alcohol withdrawal, pancreatitis, hospital admission for suicidal ideation, type I DM, splenomegaly, hepatic steatosis, asthma, GI bleed who presented to the ER with 3 days of progressive shortness of breath, found to be in severe DKA. Severe DKA DMI BSG 424 on admission, AG 40, bicarb 4 ABG: pH less than 7, pCO2 11, O2 142, bicarb undetectable Required ICU admission, treated with insulin drip, IV fluids per protocol, electrolytes supplemented as needed Gap closed at 11 (though slightly back up to 13 on last check) and glucose <200, pt downgraded Glycemic consult- continue with SQ insulin per protocol at this time Reportedly pt had made changes to her home medications, question of noncompliance. unit educator consulted q4h BMP, mag, phos, VBG AM labs Respiratory Distress Tachypneic on admission In setting of acute metabolic derangements noted above ICU care above, currently stable on RA Monitor History of alcohol use, cirrhosis Reportedly in remission, hx of alcohol withdrawal Alcohol level <10 on admission Stable at this time, previously on naltrexone Anxiety/depression Continue Celexa, Buspar and prn Xanax Continue other meds as ordered. DVT PPx: heparin SQ Diet: Full liquid, DM CODE STATUS: Full code Dispo: PCU/Tele at this time Admission and Anticipated Discharge Date Admission Date: June 30, 2023 Subjective Pt seen earlier in the day. Drowsy but able to state she "has been better" when asked how she's doing. States had a headache the day before. Denied N/V. Eventually fell back asleep during the exam. Review of Systems Review of Systems: All systems reviewed & are unremarkable except as noted in Subjective Physical Exam Physical Exam: General: Drowsy. No acute distress Psych: could not be determined, drowsy Neuro: Drowsy HEENT: NC/AT Chest: Nontender to palpation. CV: RRR Resp: no increased effort of breathing Abdomen: Soft Extremities: No edema in lower extremities bilaterally. Results & Data Results & Data Vital Signs (Past 12 Hours) Vital Signs Temp Pulse Resp BP BP Pulse Ox O2 Del Method 07/01/23 11:00 36.6 C 24 106/68 99 Room Air 07/01/23 10:00 100/58 L 07/01/23 10:00 96 H 24 97 07/01/23 09:30 89 24 98 07/01/23 09:00 103/71 07/01/23 09:00 88 25 H 98 07/01/23 08:30 102 H 26 H 100 07/01/23 08:00 94 H 24 100 07/01/23 08:00 Room Air 07/01/23 08:00 Nasal Cannula 07/01/23 07:30 95 H 24 100 07/01/23 07:24 125/72 07/01/23 07:24 96 H 20 100 07/01/23 07:01 106 H 41 H 98 07/01/23 07:01 157/125 H 07/01/23 07:00 109 H 31 H 99 07/01/23 06:30 87 25 H 97 07/01/23 06:00 109/77 07/01/23 06:00 97 H 33 H 99 07/01/23 05:30 104 H 23 100 07/01/23 05:00 120/82 07/01/23 05:00 106 H 28 H 98 07/01/23 04:34 112/84 07/01/23 04:34 114 H 44 H 100 07/01/23 04:30 107 H 23 99 07/01/23 04:00 99 H 28 H 99 07/01/23 03:30 36.4 C L 96 H 39 H 100 07/01/23 03:00 128/78 07/01/23 03:00 94 H 22 100 07/01/23 02:30 96 H 29 H 100 07/01/23 02:00 124/82 07/01/23 02:00 100 H 40 H 100 07/01/23 01:30 108 H 43 H 100 07/01/23 01:00 115/80 07/01/23 01:00 109 H 46 H 100 07/01/23 00:30 113 H 22 100 07/01/23 00:00 114 H 42 H 100 07/01/23 00:00 147/92 H (2) DKA (diabetic ketoacidosis) Diabetes mellitus complication detail: without coma (4) Depression Depression Type: major depressive disorder Major depression recurrence: recurrent Active/Remission status: currently active Major depression episode severity: moderate Qualified Code(s): F33.1 - Major depressive disorder, recurrent, moderate
[2023-07-01] MEDS: INSULIN REGULAR 250 UNITS in SODIUM CHLORIDE 0.9% 247.5 ML IV SCH (11:57)
[2023-07-01] MEDS: busPIRone 5 MG TAB PO SCH ×2 (12:37→20:07)
[2023-07-01] MEDS: POT PHOSPHATE MONOBASIC W/ SOD TAB PO SCH ×3 (12:37→20:07)
[2023-07-01 13:29] LABS: BUN Creatinine Ratio 10.8 (10-20); Calcium 8.8 mg/dl (8.6-10.3); Creatinine Clr Calc Pharmacy 65.1 ml/min; Est GFR (African American) 75.9 ml/min; Est GFR (Non-African American) 65.5 ml/min; Potassium 3.5 mmol/L (3.5-5.1)
[2023-07-01] MEDS ORDERED: INSULIN ASPART PER UNIT CHARGE SC STA (14:03)
--- NOTE | 2023-07-01 14:12 | Billing Data ---
Date of Service July 01, 2023 Coding Level of Care Code 53510 SUB INP/OBS CARE MIN
[2023-07-01] MEDS: LANTUS PER UNIT CHARGE SQ SCH (14:36)
[2023-07-01] MEDS: SODIUM CHLOR 0.45% + 20MEQ KCL 20 MEQ/1,000 ML BAG IV SCH ×2 (14:50→21:34)
[2023-07-01] MEDS ORDERED: PHARMACY GLYCEMIC MGMT CONSULT PRN (16:20)
--- NOTE | 2023-07-01 16:48 | Pharmacy Report ---
Pharmacy Glycemic Short Note 2 - Date of Service July 01, 2023 - Glycemic Short BSG Results (Last 24 hours): 06/30/23 06/30/23 06/30/23 16:08 16:45 17:03 Glucose 150 H POC Glucose 105 H 112 H 06/30/23 06/30/23 06/30/23 17:37 18:23 19:44 Glucose POC Glucose 136 H 177 H 166 H 06/30/23 06/30/23 06/30/23 20:12 20:57 21:38 Glucose 164 H POC Glucose 129 H 148 H 06/30/23 06/30/23 07/01/23 21:58 23:20 01:00 Glucose POC Glucose 149 H 216 H 265 H 07/01/23 07/01/23 07/01/23 01:05 03:13 04:39 Glucose 291 H POC Glucose 280 H 317 H* 07/01/23 07/01/23 07/01/23 05:19 06:05 07:26 Glucose 333 H* POC Glucose 362 H* 269 H 07/01/23 07/01/23 07/01/23 08:09 09:05 09:09 Glucose 188 H POC Glucose 250 H 185 H 07/01/23 07/01/23 07/01/23 09:59 10:51 11:54 Glucose POC Glucose 193 H 202 H 212 H 07/01/23 07/01/23 07/01/23 12:51 13:53 14:54 Glucose 180 H POC Glucose 171 H 187 H 07/01/23 16:09 Glucose POC Glucose 110 H OUTPATIENT ANTIDIABETIC REGIMEN: * Semglee 35 units SC daily * Fiasp 5 units SC AC * Metformin XR 2000 mg PO HS * HbA1c: 11.3% (06/30/23) ASSESSMENT: * 47 yo F admitted on 06/30/23 secondary to DKA. Pharmacy has been consulted to assist with inpatient glycemic management. Patient is a Type 1 diabetic as an outpatient (note patient's PMHx lists T1DM but with metformin use suspect this is more Type 2). Please refer to outpatient regimen and most recent HbA1c above. * Initial labs: BSG 424, AG 32, CO2 4. Started on an insulin drip with an initial bolus of 7 units followed by continuous infusion at 7 units/hr. BSGs quickly improved. Rate was decreased to 3.4 units/hr. D5 fluids with potassium started last evening. * Labs this afternoon: BSG 171, AG 11, CO2 16. Gap had closed. Patient was given Lantus to overlap with drip for 2 hours then transitioned off the drip. Dextrose has been removed from fluids. * Starting Lantus 20 units now x 1. Will monitor HS BSG to see if an additional dose is needed. Novolog based on weight/stress of 2 for now. May need tightened throughout the evening. Patient is ordered a T2DM and tolerated dinner. PLAN FOR INPATIENT GLYCEMIC CONTROL: * Hold outpatient oral diabetes medications * Basal insulin * Lantus 20 units SC x 1 * Bolus insulin * NovoLog per scale ACHS or Q6hrs while NPO * Goal Range: Low 110 mg/dL - High 140 mg/dL * Correction Factor: 30 mg/dL/unit * Nutritional / Prandial insulin per carb ratio of 1 unit per 10 grams CHO consumed
[2023-07-01 18:02] LABS: BUN Creatinine Ratio 11.8 (10-20); Calcium 8.6 mg/dl (8.6-10.3); Creatinine Clr Calc Pharmacy 71.4 ml/min; Est GFR (African American) 84.8 ml/min; Est GFR (Non-African American) 73.2 ml/min; Potassium 3.1 mmol/L (3.5-5.1)
[2023-07-01 18:05] LABS: Phosphorus 1.4 mg/dl (2.5-4.9)
[2023-07-01 21:36] LABS: Base Excess VBG -9.6 mEq/L; HCO3 VBG 15 mmol/L; Oxygen Saturation VBG 88.6 %; PCO2 VBG 28 mmHg (38-50); PO2 VBG 51 mmHg; pH VBG 7.33 (7.36-7.41)
[2023-07-01 22:02] LABS: BUN Creatinine Ratio 11.6 (10-20); Calcium 8.7 mg/dl (8.6-10.3); Creatinine Clr Calc Pharmacy 69.9 ml/min; Est GFR (African American) 82.7 ml/min; Est GFR (Non-African American) 71.3 ml/min; Magnesium 1.7 mg/dl (1.7-2.4); Phosphorus 3.7 mg/dl (2.5-4.9); Potassium 3.5 mmol/L (3.5-5.1)
[2023-07-01] MEDS: ALPRAZolam 0.5 MG TABLET PO PRN (23:55)
[2023-07-02] MEDS: SODIUM CHLOR 0.45% + 20MEQ KCL 20 MEQ/1,000 ML BAG IV SCH ×3 (04:14→18:05)
[2023-07-02] MEDS: ALBUTEROL HFA 8 GM INHALER INH PRN ×3 (06:17→17:21)
[2023-07-02 06:29] LABS: Hematocrit (blood only) 37.3 % (37.0-47.0); Hemoglobin 13.3 g/dl (12.0-16.0); Mean Corpuscular Hemoglobin 31.9 pg (25.0-34.0); Mean Corpuscular Hgb Conc 35.7 g/dL (32.0-36.0); Mean Corpuscular Volume 89.4 fL (80.0-100.0); Mean Platelet Volume 9.8 fL (9.4-12.4); Platelet Count 95 K/uL (130-400); RDW Standard Deviation 42.5 fL (36.4-46.3); Red Blood Count 4.17 M/uL (4.20-5.40); White Blood Count 2.12 K/ul (4.8-10.8)
[2023-07-02 06:56] LABS: Albumin Globulin Ratio 1.4 (0.9-2); Albumin Level 3.8 gm/dl (3.4-5.0); BUN Creatinine Ratio 11.1 (10-20); Creatinine Clr Calc Pharmacy 75.8 ml/min; Est GFR (African American) 88.3 ml/min; Est GFR (Non-African American) 76.1 ml/min; Globulin 2.7 gm/dl (2.5-4.0); Magnesium 1.7 mg/dl (1.7-2.4); Potassium 3.2 mmol/L (3.5-5.1); Total Protein 6.5 gm/dl (6.0-8.3)
[2023-07-02 07:02] LABS: Basophils # (auto) 0.01 K/uL (0.00-0.20); Basophils % (auto) 0.5 %; Eosinophils # (auto) 0.02 K/uL (0.00-0.50); Eosinophils % (auto) 0.9 %; Immature Granulocytes # (auto) 0.01 K/uL (0.01-0.20); Immature Granulocytes % (auto) 0.5 %; Lymphocytes # (auto) 0.87 K/uL (1.20-3.40); Monocytes # (auto) 0.28 K/uL (0.11-0.59); Monocytes % (auto) 13.2 %; Neutrophils # (auto) 0.93 K/uL (1.40-6.50); Neutrophils % (auto) 43.9 %
[2023-07-02] MEDS: HEPARIN SOD 5,000 UNIT/0.5 ML VIAL SQ SCH ×2 (07:52→20:02)
[2023-07-02] MEDS: POT PHOSPHATE MONOBASIC W/ SOD TAB PO SCH ×4 (07:52→20:03)
[2023-07-02] MEDS: CITALOPRAM 20 MG TAB PO SCH (07:53)
[2023-07-02] MEDS: busPIRone 5 MG TAB PO SCH ×3 (07:53→20:02)
[2023-07-02] MEDS: ATORVASTATIN 20 MG TAB PO SCH (07:53)
[2023-07-02] MEDS ORDERED: POTASSIUM CHLORIDE CRTAB 20 MEQ TABCR PO STA (08:23)
[2023-07-02] MEDS: INSULIN ASPART PER UNIT CHARGE SC SCH ×4 (09:00→21:26)
[2023-07-02] MEDS: LANTUS PER UNIT CHARGE SQ SCH (09:00)
--- NOTE | 2023-07-02 10:17 | Hospitalist Progress Note ---
Date of Service July 02, 2023 Assessment & Plan (1) Hypophosphatemia: (2) DKA (diabetic ketoacidosis): (3) Anxiety: (4) Depression: Plan Pt is a 47yoF with a PMHx significant for alcohol abuse with Hx of alcohol withdrawal, pancreatitis, hospital admission for suicidal ideation, type II DM, splenomegaly, hepatic steatosis, asthma, GI bleed who presented to the ER with 3 days of progressive shortness of breath, found to be in severe DKA. Severe DKA DMII Pt with Hx of DMII BSG 424 on admission, AG 40, bicarb 4 ABG: pH less than 7, pCO2 11, O2 142, bicarb undetectable Required ICU admission, treated with insulin drip, IV fluids per protocol, electrolytes supplemented as needed Gap closing and glucose <200, pt downgraded Glycemic consult- continue with SQ insulin per protocol at this time Reportedly pt had made changes to her home medications, question of noncompliance. -on 07/02 pt noted that the new changes to her medications (basal/bolus regimen) made her anxious, and so she was not compliant -Notes that when she was on Novolin 70/30 28U BID, she was more comfortable with administering -Due to glucose levels not being controlled with the above regimen, she was switched to Semglee 35U daily with Fiasp 5U with breakfast, lunch and dinner -Had Beth but was noting that it would not remain attached -Hx of pancreatitis so GLP-1 not an option, jardiance caused vaginitis and unable to tolerate metformin at even very low doses. -Pt would like to go back to the Novolin 70/30 and increasing dosage as needed on discharge as she states she is more comfortable with this. The new basal/bolus regimen made her anxious and noncompliant public health educator consulted q4h BMP, mag, phos, VBG AM labs Respiratory Distress Tachypneic on admission In setting of acute metabolic derangements noted above ICU care above, currently stable on RA Monitor History of alcohol use, cirrhosis Reportedly in remission, hx of alcohol withdrawal Alcohol level <10 on admission Stable at this time, previously on naltrexone Anxiety/depression Continue Celexa, Buspar and prn Xanax Continue other meds as ordered. DVT PPx: heparin SQ Diet: Full liquid, DM CODE STATUS: Full code Dispo: PCU/Tele at this time Admission and Anticipated Discharge Date Admission Date: June 30, 2023 Subjective pt seen in the AM. Was more alert. States that she was feeling better. Notes that she got nervous about the medication changes recently made outpt to her diabetic meds and so was not taking it as prescribed. States that prefers the Novolin 70/30 where she just took 28U BID. Review of Systems Review of Systems: All systems reviewed & are unremarkable except as noted in Subjective Physical Exam Physical Exam: General: Alert. No acute distress Psych: appropriate mood Neuro: AAOx3 HEENT: NC/AT Chest: Nontender to palpation. CV: RRR Resp: no increased effort of breathing Abdomen: Soft Extremities: No edema in lower extremities bilaterally. Results & Data Results & Data Vital Signs (Past 12 Hours) Vital Signs Temp Pulse Pulse Resp BP BP Pulse Ox 07/02/23 07:33 36.6 C 86 19 106/68 97 07/02/23 06:20 78 18 97 07/02/23 03:33 36.9 C 76 20 112/76 96 07/02/23 00:00 07/01/23 23:25 78 07/01/23 23:06 36.8 C 85 18 136/78 97 O2 Del Method 07/02/23 07:33 Room Air 07/02/23 06:20 Room Air 07/02/23 03:33 Room Air 07/02/23 00:00 Room Air 07/01/23 23:25 07/01/23 23:06 Room Air (2) DKA (diabetic ketoacidosis) Diabetes mellitus complication detail: without coma (4) Depression Active/Remission status: currently active Depression Type: major depressive disorder Major depression episode severity: moderate Major depression recurrence: recurrent Qualified Code(s): F33.1 - Major depressive disorder, recurrent, moderate
[2023-07-02] MEDS: LOPERAMIDE HCL 2 MG CAP PO PRN ×2 (11:49→20:02)
[2023-07-02 16:22] LABS: Base Excess VBG -4.8 mEq/L; HCO3 VBG 20 mmol/L; Oxygen Saturation VBG 67.2 %; PCO2 VBG 34 mmHg (38-50); PO2 VBG 37 mmHg; pH VBG 7.37 (7.36-7.41)
[2023-07-02 16:48] LABS: BUN Creatinine Ratio 10.1 (10-20); Calcium 9.3 mg/dl (8.6-10.3); Creatinine Clr Calc Pharmacy 76.7 ml/min; Est GFR (African American) 89.5 ml/min; Est GFR (Non-African American) 77.2 ml/min; Magnesium 1.7 mg/dl (1.7-2.4); Phosphorus 4.1 mg/dl (2.5-4.9); Potassium 3.5 mmol/L (3.5-5.1)
[2023-07-02] MEDS: ALPRAZolam 0.5 MG TABLET PO PRN (21:25)
[2023-07-03] MEDS: SODIUM CHLOR 0.45% + 20MEQ KCL 20 MEQ/1,000 ML BAG IV SCH ×2 (00:52→08:14)
[2023-07-03] MEDS: ALBUTEROL HFA 8 GM INHALER INH PRN ×3 (03:30→13:57)
[2023-07-03] MEDS: LOPERAMIDE HCL 2 MG CAP PO PRN (06:42)
[2023-07-03] MEDS: POT PHOSPHATE MONOBASIC W/ SOD TAB PO SCH ×4 (08:15→19:57)
[2023-07-03] MEDS: HEPARIN SOD 5,000 UNIT/0.5 ML VIAL SQ SCH ×2 (08:15→19:58)
[2023-07-03] MEDS: busPIRone 5 MG TAB PO SCH ×3 (08:16→19:57)
[2023-07-03] MEDS: FLUTICASONE/VILANTEROL 200/25MCG 14 PUFFS/INHALER INH SCH (08:16)
[2023-07-03] MEDS: ATORVASTATIN 20 MG TAB PO SCH (08:16)
[2023-07-03] MEDS: ALPRAZolam 0.5 MG TABLET PO PRN ×2 (08:41→21:22)
[2023-07-03] MEDS: INSULIN ASPART PER UNIT CHARGE SC SCH ×4 (08:41→21:25)
[2023-07-03] MEDS: LANTUS PER UNIT CHARGE SQ SCH (08:46)
[2023-07-03 08:53] LABS: Basophils # (auto) 0.01 K/uL (0.00-0.20); Basophils % (auto) 0.7 %; Eosinophils # (auto) 0.02 K/uL (0.00-0.50); Eosinophils % (auto) 1.4 %; Hematocrit (blood only) 35.6 % (37.0-47.0); Hemoglobin 12.7 g/dl (12.0-16.0); Lymphocytes # (auto) 0.69 K/uL (1.20-3.40); Mean Corpuscular Hemoglobin 32.2 pg (25.0-34.0); Mean Corpuscular Hgb Conc 35.7 g/dL (32.0-36.0); Mean Corpuscular Volume 90.1 fL (80.0-100.0); Mean Platelet Volume 10.4 fL (9.4-12.4); Monocytes % (auto) 14.5 %; Neutrophils # (auto) 0.46 K/uL (1.40-6.50); Neutrophils % (auto) 33.4 %; Platelet Count 97 K/uL (130-400); RDW Coefficient of Variation 13.2 % (11.5-14.5); Red Blood Count 3.95 M/uL (4.20-5.40); White Blood Count 1.38 K/ul (4.8-10.8)
[2023-07-03 09:52] LABS: Alanine Aminotransferase 118 U/L (7-52); Albumin Globulin Ratio 1.4 (0.9-2); Albumin Level 3.6 gm/dl (3.4-5.0); Alkaline Phosphatase 239 U/L (34-104); Anion Gap 8 (3-11); BUN Creatinine Ratio 9.1 (10-20); Bilirubin,Total 0.8 mg/dl (0.2-1.0); Blood Urea Nitrogen 7 mg/dl (6-23); Calcium 9.2 mg/dl (8.6-10.3); Carbon Dioxide 24 mmol/L (21-32); Chloride 107 mmol/L (98-107); Creatinine Clr Calc Pharmacy 88.5 ml/min; Est GFR (African American) 106.6 ml/min; Est GFR (Non-African American) 91.9 ml/min; Globulin 2.6 gm/dl (2.5-4.0); Glucose 133 mg/dl (70-99(Fasting)); Magnesium 1.7 mg/dl (1.7-2.4); Phosphorus 3.8 mg/dl (2.5-4.9); Sodium 139 mmol/L (136-145); Total Protein 6.2 gm/dl (6.0-8.3)
[2023-07-03] MEDS ORDERED: LOPERAMIDE HCL 2 MG CAP PO PRN (09:56)
[2023-07-03 10:34] LABS: Potassium 3.3 mmol/L (3.5-5.1)
--- NOTE | 2023-07-03 11:01 | Hospitalist Progress Note ---
Date of Service July 03, 2023 Assessment & Plan (1) Hypophosphatemia: (2) DKA (diabetic ketoacidosis): (3) Anxiety: (4) Depression: Plan Pt is a 47yoF with a PMHx significant for alcohol abuse with Hx of alcohol withdrawal, pancreatitis, hospital admission for suicidal ideation, type II DM, splenomegaly, hepatic steatosis, asthma, GI bleed who presented to the ER with 3 days of progressive shortness of breath, found to be in severe DKA. Severe DKA DMII Pt with Hx of DMII BSG 424 on admission, AG 40, bicarb 4 ABG: pH less than 7, pCO2 11, O2 142, bicarb undetectable Required ICU admission, treated with insulin drip, IV fluids per protocol, electrolytes supplemented as needed Gap closing and glucose <200, pt downgraded Glycemic consult- continue with SQ insulin per protocol at this time Reportedly pt had made changes to her home medications, question of noncompliance. -on 07/02 pt noted that the new changes to her medications (basal/bolus regimen) made her anxious, and so she was not compliant -Notes that when she was on Novolin 70/30 28U BID, she was more comfortable with administering -Due to glucose levels not being controlled with the above regimen, she was switched to Semglee 35U daily with Fiasp 5U with breakfast, lunch and dinner -Had Beth but was noting that it would not remain attached -Hx of pancreatitis so GLP-1 not an option, jardiance caused vaginitis and unable to tolerate metformin at even very low doses. -Pt would like to go back to the Novolin 70/30 on discharge as she states she is more comfortable with this. The new basal/bolus regimen made her anxious and noncompliant healthcare educator consulted- appreciate recs Glucose levels are now better controlled AM labs Elevated Liver enzymes Liver enzymes elevated on admission Currently downtrending, but still significantly elevated US liver ordered for further evaluation History of alcohol use, cirrhosis Reportedly in remission, hx of alcohol withdrawal Alcohol level <10 on admission Stable at this time, previously on naltrexone Leukopenia Thrombocytopenia Levels were wnl on admission Likely due to hemodilution as pt received lots of fluids in the setting of DKA Fluids d/c on 07/03 Trend with AM labs Respiratory Distress Tachypneic on admission In setting of acute metabolic derangements noted above ICU care previously as noted above currently stable on RA, resolved Anxiety/depression Continue Celexa, Buspar and prn Xanax Continue other meds as ordered. DVT PPx: heparin SQ Diet: Full liquid, DM CODE STATUS: Full code Dispo: PCU/Tele at this time Admission and Anticipated Discharge Date Admission Date: June 30, 2023 Subjective Pt seen in the AM. States that she is having multiple episodes of watery diarrhea sometimes with incontinence at nighttime. Immodium helping, asking for increased frequency. Agreeable to having fluids discontinued. Review of Systems Review of Systems: All systems reviewed & are unremarkable except as noted in Subjective Physical Exam Physical Exam: General: Alert. No acute distress Psych: appropriate mood Neuro: AAOx3 HEENT: NC/AT Chest: Nontender to palpation. CV: RRR Resp: no increased effort of breathing Abdomen: Soft Extremities: No edema in lower extremities bilaterally. Results & Data Results & Data Vital Signs (Past 12 Hours) Vital Signs Temp Pulse Resp BP BP Pulse Ox O2 Del Method 07/03/23 08:31 69 14 Room Air 07/03/23 07:45 36.4 C L 82 18 113/78 97 Room Air 07/03/23 03:30 72 16 98 Room Air 07/03/23 03:15 36.4 C L 83 20 110/76 99 Room Air 07/02/23 23:09 36.7 C 73 20 94/66 L 94 Room Air FiO2 07/03/23 08:31 21 07/03/23 07:45 07/03/23 03:30 07/03/23 03:15 07/02/23 23:09 (2) DKA (diabetic ketoacidosis) Diabetes mellitus complication detail: without coma (4) Depression Active/Remission status: currently active Depression Type: major depressive disorder Major depression episode severity: moderate Major depression recurrence: recurrent Qualified Code(s): F33.1 - Major depressive disorder, recurrent, moderate
[2023-07-03] MEDS: CITALOPRAM 20 MG TAB PO SCH (13:08)
[2023-07-03] MEDS ORDERED: POTASSIUM CHLORIDE CRTAB 20 MEQ TABCR PO STA (17:33)
--- NOTE | 2023-07-04 04:06 | Communication Note ---
Date of Service: July 04, 2023 Made aware by RN of patient concerns regarding developing swelling on right wrist forearm after IV site infiltrated. No fever, no chills. PPE Tender swelling right wrist AP RUE cellulitis Doxycycline
[2023-07-04] MEDS ORDERED: DOXYCYCLINE HYCLATE 100 MG in DEXTROSE 5% MINI-B 100 ML IV STA (04:07)
[2023-07-04] MEDS ORDERED: KETOROLAC TROMETHAMINE 15 MG/ML VIAL IV ONE (04:09)
[2023-07-04] MEDS: ALPRAZolam 0.5 MG TABLET PO PRN ×2 (06:13→13:49)
[2023-07-04 07:43] LABS: Hematocrit (blood only) 33.9 % (37.0-47.0); Hemoglobin 11.8 g/dl (12.0-16.0); Mean Corpuscular Hemoglobin 31.4 pg (25.0-34.0); Mean Corpuscular Hgb Conc 34.8 g/dL (32.0-36.0); Mean Corpuscular Volume 90.2 fL (80.0-100.0); Mean Platelet Volume 10.1 fL (9.4-12.4); Platelet Count 76 K/uL (130-400); RDW Coefficient of Variation 13.2 % (11.5-14.5); RDW Standard Deviation 43.7 fL (36.4-46.3); Red Blood Count 3.76 M/uL (4.20-5.40); White Blood Count 1.46 K/ul (4.8-10.8)
[2023-07-04 07:53] LABS: INR 1.2 (0.9-1.1); Prothrombin Time 12.6 Seconds (9.0-12.0)
--- NOTE | 2023-07-04 08:13 | Ultrasound Report ---
ULTRASOUND RIGHT UPPER QUADRANT ABDOMEN CLINICAL HISTORY: Elevated hepatic transaminases. COMPARISON STUDY: Abdominal ultrasound and CT dated 06/10/2021. TECHNIQUE: Real-time, grayscale, and color flow sonography of the right upper quadrant of the abdomen was performed. Images are reviewed in the transverse and longitudinal planes. FINDINGS: Liver: The liver is enlarged and demonstrates heterogeneous increased echotexture indicating steatosi s. This degrades acoustic penetration of the liver. There is nodularity of the hepatic surface contou r. There is no intrahepatic biliary ductal dilatation. The main portal vein is patent. Gallbladder: The gallbladder is normal in appearance. No gallstones are identified. There is no gallb ladder wall thickening or pericholecystic fluid. A sonographic Duckworth's sign is reportedly absent. Th e common bile duct measures up to 0.4 cm in diameter. Pancreas: Visualized portions of the pancreatic head and heterogeneous. The duct is mildly dilated me asuring up to 5 mm. The splenic vein is patent. Right kidney: Survey images of the right kidney demonstrate normal size and echotexture. There is no hydronephrosis. Ascites: None. IMPRESSION: 1. The liver is enlarged, severely steatotic, and shows morphologic change of cirrhosis. 2. No gallstones are identified. 3. There is mild nonspecific dilatation of the pancreatic duct which measures up to 5 mm. This has in creased from the 06/10/2021 examinations and may be related to pancreatic atrophy. GI follow-up is re commended. ACT 112: Negative or not required by law. Electronically signed by: Randell Lo M.D. 07/04/2023 8:11 AM
[2023-07-04 08:26] LABS: Albumin Globulin Ratio 1.4 (0.9-2); Albumin Level 3.3 gm/dl (3.4-5.0); BUN Creatinine Ratio 10.6 (10-20); Bilirubin,Total 0.7 mg/dl (0.2-1.0); Calcium 9.1 mg/dl (8.6-10.3); Creatinine Clr Calc Pharmacy 103.2 ml/min; Est GFR (African American) 121.9 ml/min; Est GFR (Non-African American) 105.2 ml/min; Globulin 2.3 gm/dl (2.5-4.0); Magnesium 1.4 mg/dl (1.7-2.4); Phosphorus 4.3 mg/dl (2.5-4.9); Potassium 3.1 mmol/L (3.5-5.1); Total Protein 5.6 gm/dl (6.0-8.3)
[2023-07-04 09:12] LABS: ALC (manual) 0.58 K/uL (1.2-3.4); ANC (manual) 0.72 K/uL (1.4-6.5); Eosinophils # (manual) 0.04 K/uL (0-0.50); Eosinophils % (manual) 3 %; Lymphocytes # (manual) 0.58 K/uL (1.2-3.4); Lymphocytes % (manual) 40 %; Monocytes # (manual) 0.12 K/uL (0.11-0.59); Monocytes % (manual) 8 %; Neutrophils # (manual) 0.72 K/uL (1.40-6.50); Neutrophils % (manual) 49 %
[2023-07-04] MEDS ORDERED: POTASSIUM CHLORIDE CRTAB 20 MEQ TABCR PO STA (09:26)
[2023-07-04] MEDS ORDERED: MAGNESIUM SULFATE / D5W 1 GM/100 ML BAG IV SCH (09:30)
[2023-07-04] MEDS: HEPARIN SOD 5,000 UNIT/0.5 ML VIAL SQ SCH (09:42)
[2023-07-04] MEDS: CITALOPRAM 20 MG TAB PO SCH (09:43)
[2023-07-04] MEDS: FLUTICASONE/VILANTEROL 200/25MCG 14 PUFFS/INHALER INH SCH (09:43)
[2023-07-04] MEDS: ATORVASTATIN 20 MG TAB PO SCH (09:43)
[2023-07-04] MEDS: POT PHOSPHATE MONOBASIC W/ SOD TAB PO SCH ×2 (09:43→13:44)
[2023-07-04] MEDS: busPIRone 5 MG TAB PO SCH ×2 (09:43→13:44)
[2023-07-04] MEDS: LANTUS PER UNIT CHARGE SQ SCH (09:44)
[2023-07-04] MEDS: MAGNESIUM SULFATE / D5W 1 GM/100 ML BAG IV SCH ×3 (09:44→15:47)
[2023-07-04] MEDS: INSULIN ASPART PER UNIT CHARGE SC SCH ×3 (09:44→17:53)
--- NOTE | 2023-07-04 11:27 | Pharmacy Report ---
Pharmacy Glycemic Short Note 2 - Date of Service July 04, 2023 - Glycemic Short BSG Results (Last 24 hours): 07/03/23 07/03/23 07/03/23 12:13 17:24 19:54 Glucose POC Glucose 145 H 118 H 191 H 07/03/23 07/04/23 07/04/23 21:22 07:26 08:01 Glucose 173 H POC Glucose 176 H 172 H OUTPATIENT ANTIDIABETIC REGIMEN: * Semglee 35 units SC daily * Fiasp 5 units SC AC * Metformin XR 2000 mg PO HS * HbA1c: 11.3% (06/30/23) ASSESSMENT: 07/04/23 * BSGs have been stable during admission since transitioning from the insulin gtt to SQ insulin. * Lantus was reduced slightly yesterday for fasting BSG 72mg/dL. * Pt refused two of her evening doses of Novolog yesterday. Novolog parameters loosened slightly this morning to keep BSGs from falling below what pt is comfortable with. * Pt plans to return to a 70/30 insulin regimen on discharge. * Pharmacy will continue to follow during admission and make changes to regimen as indicated. 07/01/23 * 47 yo F admitted on 06/30/23 secondary to DKA. Pharmacy has been consulted to assist with inpatient glycemic management. Patient is a Type 1 diabetic as an outpatient (note patient's PMHx lists T1DM but with metformin use suspect this is more Type 2). Please refer to outpatient regimen and most recent HbA1c above. * Initial labs: BSG 424, AG 32, CO2 4. Started on an insulin drip with an initial bolus of 7 units followed by continuous infusion at 7 units/hr. BSGs quickly improved. Rate was decreased to 3.4 units/hr. D5 fluids with potassium started last evening. * Labs this afternoon: BSG 171, AG 11, CO2 16. Gap had closed. Patient was given Lantus to overlap with drip for 2 hours then transitioned off the drip. Dextrose has been removed from fluids. * Starting Lantus 20 units now x 1. Will monitor HS BSG to see if an additional dose is needed. Novolog based on weight/stress of 2 for now. May need tightened throughout the evening. Patient is ordered a T2DM and tolerated dinner. PLAN FOR INPATIENT GLYCEMIC CONTROL: * Hold outpatient oral diabetes medications * Basal insulin * Lantus 18 units SC daily * Bolus insulin * NovoLog per scale ACHS or Q6hrs while NPO * Goal Range: Low 110 mg/dL - High 140 mg/dL * Correction Factor: 30 mg/dL/unit * Nutritional / Prandial insulin per carb ratio of 1 unit per 10 grams CHO consumed
[2023-07-04 15:21] LABS: Methyl Alcohol Comment WHOLE BLOOD; Methyl Alcohol Level NONE DETECTED (NONE DETECTED)
--- NOTE | 2023-07-04 17:25 | Discharge Summary ---
Discharge Summary Date of Service July 04, 2023 Notes For Next Care Provider Pt required ICU stay for DKA. Pt noted noncompliance with new basal/bolus diabetic regimen due to anxiety and too many steps with regimen. Switched back to more comfortable Novolin BID regimen (per pt request) to help with compliance, this time 35U in AM for daytime highs noted and 15U in PM for overnight lows (previously on 28U BID). Please ensure close MTM follow up and assist with measures to help with compliance. Please ensure follow up with hematology for pancytopenia noted, further evaluation with peripheral smear Please ensure follow up with GI for US liver findings of enlarged pancreatic duct (progressing from 2020) and cirrhosis of the liver Please continue to monitor liver enzymes and electrolytes after discharge Medication Changes From Visit Doxycycline 100mg BID x 9 days for IV site infiltration Loperamide for diarrhea Novolin 70/30 U100 Insulin 35U with breakfast and 15U with dinner Ibuprofen 800mg TID PRN for arm pain, 10 tabs Admission HPI Per Admitting Provider Marcus is a 47-year-old female with a past medical history of alcohol abuse, alc ohol withdrawal, pancreatitis, U admission for suicidal ideation, type I DM, splenomegaly, hepatic steatosis, asthma, GI bleed who presents to the ER with 3 days of progressive shortness of breath. Sinus tachycardia on admission without hypoxia. ETOH abose. Noncompliant with insulint. BP normal in the waiting room 1 amp bicarb + 150/h20 gtt due to ABG <7.0 A1C 11.3 Insulin 70/30, does not remember when she took her last insulin. Last ETOH use new years. Denies use int he last 7 days. Drank 3 glasses on new years. Endorses history of withdrawal, none in the last year. Normally drinking 1 day per week, wine 2-3 per sitting No cough or congestion No burning with urination. Denies polyuria. Has been very thirsty, has been peeing 'about an average amount' the last 24 hours, has been drinking a lot of vitamin water due to being thirsty. She has been taking less insulin 'than I should. I don't really take it until I eat breakfast and sometimes forget.' Has missed breakfast. PCP is [facility] Gale gonzalez. Sees Dr. Graves with C and PCP. Recently switched in October. +asthma. Denies wheezing. More short of breath. Increased sharply 1 day ago. No leg swelling. No leg pain. NO history of blood clots, no history of DVT/PE. No pleuritic pain. Anxiety/depression: buspar, remeron, 0.5mg ativan. Did take her buspar this morning. No insulin. Last chage in insulin regimen was one month ago with Dr. Felipe Medical History: Reviewed Medications: Reviewed Surgical History: Reviewed Family history: Reviewed Allergies: Reviewed Social History: ETOH, Code Status: Full Admission Exam Per Admitting Provider General: Oriented to name, place, year, and month not oriented today. Answers questions appropriately. Ill-appearing HEENT: Atraumatic, normocephalic. Mucous membranes dry Pulm: Rapid deep/asset coordinator small breathing on arrival, no wheezing Cardiac: Regular, tachycardic .radial pulses intact and symmetrical. Abdominal: Nontender, nondistended, soft. BS present. Extremities: Warm, dry. No edema Principal Dx & Hospital Course #1 = Principal Diagnosis (1) Hypophosphatemia: (2) DKA (diabetic ketoacidosis): (3) Anxiety: (4) Depression: Plan Pt is a 47yoF with a PMHx significant for alcohol abuse with Hx of alcohol withdrawal, pancreatitis, hospital admission for suicidal ideation, type II DM, splenomegaly, hepatic steatosis, asthma, GI bleed who presented to the ER with 3 days of progressive shortness of breath, found to be in severe DKA. Severe DKA DMII Pt with Hx of DMII BSG 424 on admission, Anion gap of 40, bicarb 4 ABG on admission: pH less than 7, pCO2 11, O2 142, bicarb undetectable Required ICU admission, treated with insulin drip, IV fluids per protocol, electrolytes supplemented as needed Gap closed and glucose <200, pt was downgraded She was then treated with SQ insulin per protocol Reportedly pt had changes made to her home medications by her MTM providers (started on basal/bolus regimen), question of noncompliance. -on 07/02 pt noted that the new changes to her medications (basal/bolus regimen) made her anxious, and so she was not compliant -Notes that when she was on Novolin 70/30 28U BID, she was more comfortable with administering herself -However, she was switched to Semglee 35U daily with Fiasp 5U with breakfast, lunch and dinner due to her glucose levels not being controlled by the above regimen -Hx of pancreatitis so GLP agonists not an option, jardiance caused vaginitis for her and unable to tolerate metformin at even very low doses. -Pt would like to go back to the Novolin 70/30 on discharge as she states she is more comfortable with this. The new basal/bolus regimen made her anxious and noncompliant -Discharged with Novolin 70/30 U100 Insulin 35U with breakfast and 15U with dinner pilot steam yacht consulted- appreciate recs Glucose levels are now better controlled PCP and MTM follow up after discharge. Pt compliance with regimen encouraged. Infiltrated IV Cellulitis Pt infiltrated IV site Red and swollen overnight on 07/03 Continue doxycycline 100mg BID x 9 more days Also discharged with short course of ibuprofen 800mg for associated pain per pt request PCP follow up History of alcohol use, cirrhosis Elevated Liver enzymes Liver enzymes elevated on admission, currently downtrending On admission, AST 313, ALT 226, alk phos 365, t bili 1.0 On discharge AST 59, ALT 86, alk phos 213, t bilil 0.7 US liver ordered for further evaluation -noted enlarged pancreatic duct for which follow up with GI is recommended since it is progressing from 2020 Hx of alcohol use reportedly in remission Alcohol level <10 on admission Stable at this time, previously on naltrexone PCP followup for further LFT trend, please ensure back to normal levels after discharge Consider GI follow up Diarrhea Chronic Relief with Loperamide c diff not collected as pt's stools were no liquid enough Discharged with Loperamide Pancytopenia On admission, pt hemoconcentrated and polycythemia was noted in the ICU After fluid resuscitation for DKA, her baseline pancytopenia was noted. Case discussed with escrow agent cone machine feeder and advised likely due to chronic alcohol use Electrical Controls Engineer cone machine feeder recommending outpt peripheral smear and outpatient Hematology follow up Respiratory Distress Tachypneic on admission in setting of acute metabolic derangements ICU care as noted above Resolved and currently stable on RA Anxiety/depression Continue Celexa, Buspar and prn Xanax PCP follow up Discharge Exam General: Alert. No acute distress Psych: appropriate mood Neuro: AAOx3 HEENT: NC/AT Chest: Nontender to palpation. CV: RRR Resp: no increased effort of breathing Abdomen: Soft Extremities: some erythema to right arm at area of previous IV site, tender Updated Medication List Medication Instructions Recorded Confirmed Type fluticasone 250 mcg-salmeterol 50 1 inh inhalation AMPM 02/27/19 06/30/23 History mcg/dose blistr powdr for inhalation (Advair Diskus) albuterol sulfate 90 mcg/actuation 2 puff inhalation UD PRN Shortness 07/23/19 06/30/23 History aerosol inhaler (Ventolin HFA) Of Breath multivitamin (Daily-Harris tablet) 1 tab PO QAM #0 tabs 07/27/19 06/30/23 Rx omeprazole 20 mg capsule,delayed 20 mg PO DAILY PRN Acid Reflux 11/10/20 06/30/23 History release ascorbic acid (vitamin C) 500 mg 500 mg PO DAILY 04/05/21 06/30/23 History tablet,extended release (Vitamin C ER) melatonin 10 mg tablet 10 mg PO HS PRN Sleep 04/05/21 06/30/23 History Potassium Otc 1 tab PO BID 04/09/21 06/30/23 History vitamin B complex 1 tab PO DAILY 04/09/21 06/30/23 History naltrexone 50 mg tablet 50 mg PO DAILY #30 tabs 06/15/21 06/30/23 Rx buspirone 10 mg tablet 20 mg PO TID 04/22/22 06/30/23 History lorazepam 1 mg tablet (Ativan) 1 mg PO Q6H PRN alcohol withdrawal 04/22/22 06/30/23 Rx #20 tabs mirtazapine 30 mg tablet 45 mg PO DAILY 04/22/22 06/30/23 History ondansetron 4 mg disintegrating 4 mg PO Q8H PRN nausea and 07/09/22 06/30/23 Rx tablet vomiting #30 tabs alprazolam 0.25 mg tablet (Xanax) 0.5 mg PO TID PRN Anxiety 06/30/23 06/30/23 History atorvastatin 20 mg tablet 20 mg PO DAILY 06/30/23 06/30/23 History benzonatate 100 mg capsule 100 mg PO TID PRN Other 06/30/23 06/30/23 History citalopram 10 mg tablet 10 mg PO DAILY 06/30/23 06/30/23 History glycopyrrolate 1 mg tablet 1 mg PO TID PRN Sweating 06/30/23 06/30/23 History doxycycline hyclate 100 mg capsule 100 mg PO BID #18 caps 07/04/23 Rx ibuprofen 800 mg tablet 800 mg PO Q8H PRN pain #10 tabs 07/04/23 Rx insulin human U-100 NPH-regulr See Rx Instructions .Route 07/04/23 Rx 70-30 mix 100 unit/mL subcutaneous .COMPLEX #10 mL susp (Novolin 70/30 U-100 Insulin) insulin syringe-needle U-100 1/2 #90 ea 07/04/23 Rx mL 31 gauge x 15/64" loperamide 2 mg capsule 2 mg PO Q4H PRN loose stool #30 07/04/23 Rx caps Hospital Stay Data Consultations 06/30/23 13:42 ED Decision to Admit Stat 06/30/23 13:53 Consult Research Psychologist Routine Diagnostic Imagining Performed 07/04/23 US liver Routine Chest X-Ray 06/30/23 09:45 XR chest 1V not portable CLINICAL HISTORY: Chest pain, nonspecific TECHNIQUE: Single frontal radiograph of the chest was obtained. Comparison: Comparison is made to chest radiograph 05/29/2022 FINDINGS: No lines and tubes are seen. The cardiomediastinal silhouette is normal. The lungs are clear. No evidence of pleural effusion or pneumothorax. IMPRESSION: No acute chest disease. ACT 112: Negative or not required by law. Electronically signed by: Sidney Maya M.D. 06/30/2023 10:17 AM Liver Ultrasound 07/04/23 00:00 ULTRASOUND RIGHT UPPER QUADRANT ABDOMEN CLINICAL HISTORY: Elevated hepatic transaminases. COMPARISON STUDY: Abdominal ultrasound and CT dated 06/10/2021. TECHNIQUE: Real-time, grayscale, and color flow sonography of the right upper quadrant of the abdomen was performed. Images are reviewed in the transverse and longitudinal planes. FINDINGS: Liver: The liver is enlarged and demonstrates heterogeneous increased echotexture indicating steatosis. This degrades acoustic penetration of the liver. There is nodularity of the hepatic surface contour. There is no intrahepatic biliary ductal dilatation. The main portal vein is patent. Gallbladder: The gallbladder is normal in appearance. No gallstones are id entified. There is no gallbladder wall thickening or pericholecystic fluid. A sonographic Duckworth's sign is reportedly absent. The common bile duct measures up to 0.4 cm in diameter. Pancreas: Visualized portions of the pancreatic head and heterogeneous. The duct is mildly dilated measuring up to 5 mm. The splenic vein is patent. Right kidney: Survey images of the right kidney demonstrate normal size and echotexture. There is no hydronephrosis. Ascites: None. IMPRESSION: 1. The liver is enlarged, severely steatotic, and shows morphologic change of cirrhosis. 2. No gallstones are identified. 3. There is mild nonspecific dilatation of the pancreatic duct which measures up to 5 mm. This has increased from the 06/10/2021 examinations and may be related to pancreatic atrophy. GI follow-up is recommended. ACT 112: Negative or not required by law. Electronically signed by: Randell Lo M.D. 07/04/2023 8:11 AM Discharge Instructions Given to Patient (Per Discharging Provider) Marcus, You were admitted with severe diabetic ketoacidosis requiring treatment in the ICU. Your symptoms got better and you are being discharged home. You indicated that you preferred to go back to the previous medication you used for your diabetes called Novolin. As such we are discharging you home on the regimen of taking 35U in the morning with breakfast (as you indicated you would have high glucose levels during the day) and 15U to be taken with dinner at night as you indicated you would have overnight low readings. Please STOP using the Semglee and Fiasp insulin you were previously prescribed. Please keep close followup with your primary care provider and MTM pharmacist after discharge for further adjustments to your medications as needed. While you were here, you had an IV infiltrate and it appears that it is now infected. We are discharging you home with 9 more days of the antibiotic do xycycline to help with that. We also noticed that your blood counts were very low. As we discussed, that can happen in the setting of chronic overuse of alcohol. Your case was discussed with the Electrical Controls Engineer cone machine feeder and they advised that they would be happy to see you in outpatient follow up to see what they can help with. Your primary care provider can refer you for an appointment. You had some changes noted on your liver ultrasound such as cirrhosis of the liver and an enlarged pancreatic duct that Radiology is recommending follow up by Gastroenterology for. Your primary care provider can refer you after discharge. Continue with the Imodium as needed to help with diarrhea. As we discussed, your stool was not liquid enough to be tested for c diff. As noted above, please keep close follow up with your primary care provider, MTM and hematology after discharge. It was a pleasure taking care of you while you were here. Total Time Total Time Spent Total Time Spent (In Minutes): > 30 minutes
[2023-07-04] MEDS ORDERED: DOXYCYCLINE HYCLATE 100 MG CAP PO SCH (21:00)
== END 2023-07-04 19:12 | disposition home or self-care (01) | DRG 639 ==
LOC: ED 09:29 → 1E 14:34 → SUATTDRO 14:34 → 1E 16:40 → 4W 07-01 23:08

== ENCOUNTER 2023-09-09 11:51 | Inpatient (IN) ==
--- NOTE | 2023-09-09 13:04 | Emergency Department Note ---
Impression & Plan DKA (diabetic ketoacidosis), Alcohol withdrawal, Alcohol dependence ED Provider Note NAME: ARIC GRANT AGE: 47 SEX: F : 1975 ARRIVES VIA: Walk-In INFORMANT: Patient ED PROVIDER(S): Rafiq Martinez MD CHIEF COMPLAINT: Alcohol intoxication/withdrawal, detox request, vomiting, DM1 PLAN: Disposition: Admit MEDICAL DECISION MAKING: The patient is a 47-year-old woman with past medical history of type 1 diabetes, history of DKA, history of alcoholism/dependence, alcohol withdrawal who presents to the emergency department via walk-in, by her father for evaluation of nausea, restlessness/anxiety and concern for alcohol withdrawal and interest in detoxing. Patient reports she last drank alcohol approximately 3 hours ago when she may have finished a bottle of wine. The patient has been drinking vodka regularly approximately 10 shots per day. The patient denies suicidal ideation or plan but did make a comment to the room service attendant that at times she wondered that "it would be nice if I had a terminal illness". She denies cough, congestion, chest pain, shortness of breath. She reports her blood sugars have been high and checking her monitor at this time is 330. She reports she has been having nausea and vomiting over the past 48 hours and has not had much to eat or drink and feels she may be going into DKA. On my evaluation the patient is mildly intoxicated appearing but no acute distress, afebrile with heart in the 100s and blood pressure 140s/80s. She has subtle ataxia with [id number] but otherwise no overt past-pointing. EKG without overt acute ischemia. WBC, H/H and platelets within normal limits. Chemistry with anion gap of 23 and bicarbonate of 19. Consistent with early DKA. Serum osmolality is 361 with etoh of 257 which calculates to a normal osmolar gap. INR within normal limits. Initial VBG with normal pH with component of respiratory compensation. LFTs are similar to prior range. Total bilirubin within normal limits. Lipase is not elevated. TSH 5.9 with free T4 within normal limits. hCG negative. UA with 1+ ketones and otherwise no convincing evidence of infection. Patient was treated with IV fluid hydration with initial treatment with 1 L normal saline and 1 L banana bag with subsequent improving trend to blood sugars from from 298 down to 215. Insulin drip initially ordered however modified per admitting team without bolus and maintenance fluids adjusted per protocol. Patient additionally placed on AWSS monitoring. She was given 1 mg of Ativan for initial treatment of withdrawal symptoms. Patient did agree with plan for admission for further management of alcohol withdrawal and early DKA. Case was discussed with Nathaniel Cruz, with Dr. Mary monge who will evaluate the patient for admission. Triage Nursing notes reviewed and agree them. Prior/external medical records reviewed Vital Signs: reviewed Differential diagnosis: Gastroenteritis, food borne illness, infections, appendicitis, diverticulitis, inflammatory bowel disease, obstruction, GI bleed, biliary pathology, volvulus, as well as other pathologies. ER treatment provided: See below. Diagnostics interpreted by me: ECG: Normal sinus rhythm, 99 bpm, no ectopy, no overt ST ovation depression, QTc 469, QRS 80 Cardiac Monitoring: An order for continuous cardiac monitoring was placed and demonstrated Normal sinus rhythm, 99 bpm, no ectopy. Laboratory studies: See below Imaging studies: See below Consultation(s): Nathaniel Cruz, with Dr. Mary monge HPI: The patient is a 47-year-old woman with past medical history of type 1 diabetes, history of DKA, history of alcoholism/dependence, alcohol withdrawal who presents to the emergency department via walk-in, by her father for evaluation of nausea, restlessness/anxiety and concern for alcohol withdrawal and interest in detoxing. Patient reports she last drank alcohol approximately 3 hours ago when she may have finished a bottle of wine. The patient has been drinking vodka regularly approximately 10 shots per day. The patient denies suicidal ideation or plan but did make a comment to the room service attendant that at times she wondered that "it would be nice if I had a terminal illness". She denies cough, congestion, chest pain, shortness of breath. She reports her blood sugars have been high and checking her monitor at this time is 330. She reports she has been having nausea and vomiting over the past 48 hours and has not had much to eat or drink and feels she may be going into DKA. ROS: See above HPI for pertinent positives & negatives. A total of 10 systems reviewed and were otherwise negative. VITALS:See Below PHYSICAL EXAMINATION: GENERAL: Awake, alert, fatigued-appearing, in no distress HENT: Normocephalic, atraumatic. Oropharynx with dry mucous membranes and otherwise unremarkable. EYES: Normal conjunctiva. Sclera non-icteric. EOMI. No nystamgus. PEARRL. NECK: Supple. No nuchal rigidity. FROM. No JVD. RESPIRATORY: Clear to auscultation. CARDIAC: Tachycardic rate, normal rhythm. Extremities warm and well perfused. Pulses equal. ABDOMEN: Soft, non-distended. No tenderness to palpation. No rebound or guarding. No masses. RECTAL: Deferred. MUSCULOSKELETAL: Chest examination reveals no tenderness. The back is symmetrical on inspection without obvious abnormality. There is no CVA tenderness to palpation. No joint edema. LOWER EXTREMITIES: Calves are equal size bilaterally and non-tender. No edema. No discoloration. NEURO: Mildly intoxicated appearing. Finger-nose with mild ataxia without overt past-pointing. No focal sensory or motor deficits noted. Not overtly tremulous at this time. SKIN: No rash or jaundice noted. ED COURSE: Critical Care: I have personally spent greater than 45 minutes of critical care time in the direct management of this patient. This includes bedside care, interpretation of diagnostic studies, and testing, discussion with consultants, patient, and family members, and other required patient management activities. This 45 minutes is in excess of all separately billable procedures. Rafiq Martinez MD Past Med/Surg History Medical History Acute alcoholic pancreatitis Depression with suicidal ideation Suicidal ideation Alcoholic hepatitis Hypophosphatemia Hypomagnesemia Metabolic acidosis Thrush Alcoholic intoxication Thrombocytopenia Alcohol withdrawal Acute alcoholic hepatitis Diabetes mellitus type 1 Acidosis, metabolic Acute pancreatitis Electrolyte abnormality DVT prophylaxis Alcohol withdrawal Alcohol abuse Anxiety Asthma Surgical History History of dental surgery wisdom teeth History of esophagogastroduodenoscopy (EGD) Family History Father Prediabetes Grandfather (Paternal) Diabetes Mother Hypertension MVP (mitral valve prolapse) Social History Smoking Status: Former smoker Tobacco Type: Cigarettes Age Quit Using Tobacco: 39; packs per day: 1; Second Hand Exposure: No; Do You Dip or Chew Tobacco: No; Hx Alcohol Use: Yes Alcohol type: wine Alcohol type Comment: 4 glasses wine daily Hx Substance Use: No Preferred Language: Estonian Communication Ability: Effective Visual Impairment: No Limitations Boat Wrapper Required: No Beliefs That Will Affect Care: None marital status: marital status details: Single parent Current Living Situation: Alone Current Living Situation Comment: daughter current occupational status: unemployed How many Children do You have: 1 Feels Safe at Home: Yes Safety Concerns: Feels Safe At This Time Childhood Exposure to Second-Hand Smoke: No Gender Identity: Female Assistive Devices: Glasses Allergies Allergies Allergy/AdvReac Type Severity Reaction Status Date / Time doxycycline Allergy Severe Muscle Pain Verified 09/09/23 14:00 theophylline AdvReac Intermediate VERTIGO Verified 06/10/21 20:50 Home Meds Home Medications Medication Instructions Recorded Confirmed fluticasone 250 mcg-salmeterol 50 1 inh inhalation AMPM 02/27/19 09/09/23 mcg/dose blistr powdr for inhalation (Advair Diskus) albuterol sulfate 90 mcg/actuation 2 puff inhalation UD PRN Shortness 07/23/19 09/09/23 aerosol inhaler (Ventolin HFA) Of Breath ascorbic acid (vitamin C) 500 mg 500 mg PO DAILY 04/05/21 09/09/23 tablet,extended release (Vitamin C ER) Potassium Otc 1 tab PO BID 04/09/21 09/09/23 buspirone 10 mg tablet 10 mg PO TID 04/22/22 09/09/23 mirtazapine 30 mg tablet 45 mg PO HS 04/22/22 09/09/23 lorazepam 0.5 mg tablet 0.5 mg PO TID PRN Anxiety 09/09/23 09/09/23 Previous Rx's Medication Instructions Recorded multivitamin (Daily-Harris tablet) 1 tab PO QAM #0 tabs 07/27/19 ibuprofen 800 mg tablet 800 mg PO Q8H PRN pain #10 tabs 07/04/23 insulin human U-100 NPH-regulr See Rx Instructions .Route 07/04/23 70-30 mix 100 unit/mL subcutaneous .COMPLEX #10 mL susp (Novolin 70/30 U-100 Insulin) insulin syringe-needle U-100 /2 #90 ea 07/04/23 mL 31 gauge x 15/64" loperamide 2 mg capsule 2 mg PO Q4H PRN loose stool #30 07/04/23 caps Results & Data (ED) Vital Signs Vital Signs - 24 hr 09/09/23 11:55 09/09/23 13:06 09/09/23 13:10 Temperature 36.9 C 36.7 C Temperature Source Temporal Artery Scan Oral Pulse Rate 104 H 94 H Pulse Rate [Left Finger] 97 H Pulse Rhythm [Left Finger] Regular Pulse Strength [Left Finger] Normal Respiratory Rate 18 20 Respiratory Effort / Characteristics Non-Labored Spontaneous Non-Labored Spontaneous Respiratory Depth Normal Normal Respiratory Pattern Regular Regular Blood Pressure 147/86 H Blood Pressure [Left Arm] 125/83 Blood Pressure Mean 106 Blood Pressure Mean [Left Arm] 97 Blood Pressure Position Sitting Blood Pressure Position [Left Arm] Semi-fowlers Pulse Oximetry 97 95 Oxygen Delivery Method Room Air Room Air Sepsis Recent Fever Within 48 Hours No Sepsis New/Unexplained Change in Mental Status No Sepsis Action Taken by Nursing No Action Required Laboratory Data Attestation: I reviewed the patient's lab results. 09/09/23 12:31 09/09/23 22:34 Lab Results 09/09/23 09/09/23 09/09/23 Range/Units 12:14 12:31 13:02 WBC 5.35 (4.8-10.8) K/ul RBC 4.78 (4.20-5.40) M/uL Hgb 14.8 (12.0-16.0) g/dl Hct 42.7 (37.0-47.0) % MCV 89.3 (80.0-100.0) fL MCH 31.0 (25.0-34.0) pg MCHC 34.7 (32.0-36.0) g/dL RDW Std Deviation 46.6 H (36.4-46.3) fL RDW Coeff of Suzanne 14.2 (11.5-14.5) % Plt Count 250 (130-400) K/uL MPV 9.3 L (9.4-12.4) fL Immature Gran % (Auto) 0.4 % Neut % (Auto) 42.1 % Lymph % (Auto) 50.8 % [place] % (Auto) 5.4 % Eos % (Auto) 0.4 % Baso % (Auto) 0.9 % Neut # (Auto) 2.25 (1.40-6.50) K/uL Lymph # (Auto) 2.72 (1.20-3.40) K/uL [place] # (Auto) 0.29 (0.11-0.59) K/uL Eos # (Auto) 0.02 (0.00-0.50) K/uL Baso # (Auto) 0.05 (0.00-0.20) K/uL Immature Gran # (Auto) 0.02 (0.01-0.20) K/uL RBC Morphology Unremarkable Target Cells 1+ PT (9.0-12.0) Seconds INR (0.9-1.1) Sodium 130 L (136-145) mmol/L Potassium 4.3 (3.5-5.1) mmol/L Chloride 88 L (98-107) mmol/L Carbon Dioxide 19 L (21-32) mmol/L Anion Gap 23 H (3-11) BUN 11 (6-23) mg/dl Creatinine 0.73 (0.6-1.2) mg/dl Est Cr Clr Drug Dosing 96.0 ml/min Est GFR ( Amer) 113.7 ml/min Est GFR (Non-Af Amer) 98.1 ml/min BUN/Creatinine Ratio 15.1 (10-20) Glucose 298 H (70-99(Fasting)) mg/dl POC Glucose 298 H (70-99) mg/dl Osmolality 361 H* (280-300) mOsm/kg Calcium 10.3 (8.6-10.3) mg/dl Phosphorus 2.5 (2.5-4.9) mg/dl Magnesium 2.3 (1.7-2.4) mg/dl Total Bilirubin 0.8 (0.2-1.0) mg/dl Direct Bilirubin TNP AST 267 H (13-39) U/L ALT 163 H (7-52) U/L Alkaline Phosphatase 432 H (34-104) U/L Total Protein 9.1 H (6.0-8.3) gm/dl Albumin 4.8 (3.4-5.0) gm/dl Globulin 4.3 H (2.5-4.0) gm/dl Albumin/Globulin Ratio 1.1 (0.9-2) Lipase 46 (11-82) U/L TSH 5.922 H (0.300-4.500) uIu/ml Free T4 0.80 (0.61-1.60) ng/dl HCG, Qual Negative (Negative) Urine Color Yellow Urine Appearance Clear (Clear) Urine pH 6.0 (4.5-7.5) Ur Specific Aladdin 1.008 (1.000-1.030) Urine Protein 1+ H (Negative) Urine Glucose (UA) 2+ H (Negative) Urine Ketones 1+ H (Negative) Urine Blood Trace H (Negative) Urine Nitrite Negative (Negative) Urine Bilirubin Negative (Negative) Urine Urobilinogen Negative (Negative) Ur Leukocyte Esterase Negative (Negative) Urine WBC (Auto) 1-5 (0-5) /hpf Urine RBC (Auto) 0-4 (0-4) /hpf U Hyaline Cast (Auto) 0 (0-5) /lpf U Epithel Cells (Auto) 5-10 H (0-5) /lpf Urine Bacteria (Auto) Negative (Negative) Ethyl Alcohol mg/dL 257.8 H (<10.0) mg/dl SARS-CoV-2, RNA, NAAT (NEGATIVE) 09/09/23 09/09/23 09/09/23 Range/Units 13:24 13:47 14:49 WBC (4.8-10.8) K/ul RBC (4.20-5.40) M/uL Hgb (12.0-16.0) g/dl Hct (37.0-47.0) % MCV (80.0-100.0) fL MCH (25.0-34.0) pg MCHC (32.0-36.0) g/dL RDW Std Deviation (36.4-46.3) fL RDW Coeff of Suzanne (11.5-14.5) % Plt Count (130-400) K/uL MPV (9.4-12.4) fL Immature Gran % (Auto) % Neut % (Auto) % Lymph % (Auto) % [place] % (Auto) % Eos % (Auto) % Baso % (Auto) % Neut # (Auto) (1.40-6.50) K/uL Lymph # (Auto) (1.20-3.40) K/uL [place] # (Auto) (0.11-0.59) K/uL Eos # (Auto) (0.00-0.50) K/uL Baso # (Auto) (0.00-0.20) K/uL Immature Gran # (Auto) (0.01-0.20) K/uL RBC Morphology Target Cells PT 12.4 H (9.0-12.0) Seconds INR 1.1 (0.9-1.1) Sodium (136-145) mmol/L Potassium (3.5-5.1) mmol/L Chloride (98-107) mmol/L Carbon Dioxide (21-32) mmol/L Anion Gap (3-11) BUN (6-23) mg/dl Creatinine (0.6-1.2) mg/dl Est Cr Clr Drug Dosing ml/min Est GFR ( Amer) ml/min Est GFR (Non-Af Amer) ml/min BUN/Creatinine Ratio (10-20) Glucose (70-99(Fasting)) mg/dl POC Glucose 243 H (70-99) mg/dl Osmolality (280-300) mOsm/kg Calcium (8.6-10.3) mg/dl Phosphorus (2.5-4.9) mg/dl Magnesium (1.7-2.4) mg/dl Total Bilirubin (0.2-1.0) mg/dl Direct Bilirubin AST (13-39) U/L ALT (7-52) U/L Alkaline Phosphatase (34-104) U/L Total Protein (6.0-8.3) gm/dl Albumin (3.4-5.0) gm/dl Globulin (2.5-4.0) gm/dl Albumin/Globulin Ratio (0.9-2) Lipase (11-82) U/L TSH (0.300-4.500) uIu/ml Free T4 (0.61-1.60) ng/dl HCG, Qual (Negative) Urine Color Urine Appearance (Clear) Urine pH (4.5-7.5) Ur Specific [place] (1.000-1.030) Urine Protein (Negative) Urine Glucose (UA) (Negative) Urine Ketones (Negative) Urine Blood (Negative) Urine Nitrite (Negative) Urine Bilirubin (Negative) Urine Urobilinogen (Negative) Ur Leukocyte Esterase (Negative) Urine WBC (Auto) (0-5) /hpf Urine RBC (Auto) (0-4) /hpf U Hyaline Cast (Auto) (0-5) /lpf U Epithel Cells (Auto) (0-5) /lpf Urine Bacteria (Auto) (Negative) Ethyl Alcohol mg/dL (<10.0) mg/dl SARS-CoV-2, RNA, NAAT NEGATIVE (NEGATIVE) Administered Medications Buspirone HCl (Buspirone 5 Mg Tab) 10 mg PO TID ARMANI Stop: 10/09/23 20:59 Last Admin: 09/09/23 21:25 Dose: 10 mg Documented By: MONICA Dextrose (Dextrose 50% 50 Ml Syringe) 25 - 50 ml IV UD PRN; Protocol PRN Reason: Hypoglycemia Protocol Stop: 10/09/23 17:49 Last Admin: 09/10/23 00:30 Dose: 25 ml Documented By: MONICA Gabapentin (Gabapentin 400 Mg Cap) 400 mg PO Q6H ARMANI Stop: 09/10/23 05:31 Last Admin: 09/10/23 00:22 Dose: 400 mg Documented By: MONICA Potassium Phosphate 21 mmol/ (Sodium Chloride) 507 mls @ 88 mls/hr IV NOW STA Stop: 09/10/23 02:39 Last Admin: 09/09/23 21:51 Dose: 88 mls/hr Documented By: MONICA Insulin Human Regular 250 (units/ Sodium Chloride) 250 mls @ 3 mls/hr IV .Q24H ARMANI; Protocol Stop: 10/09/23 21:14 Last Titration: 09/10/23 00:47 Dose: 3 unit/hr, 3 mls/hr Documented By: MONICA Co-signed By: TORRI Titration: 09/09/23 23:02 Dose: 5 unit/hr, 5 mls/hr Documented By: MONICA Co-signed By: TORRI Admin: 09/09/23 22:40 Dose: 5 unit/hr, 5 mls/hr Documented By: MONICA Co-signed By: TORRI Potassium Chloride/Dextrose/Sod Cl (D5w And 1/2nss + 20meq Kcl) 20 meq in 1,000 mls @ 100 mls/hr IV .Q10H ARMANI Stop: 10/09/23 21:14 Last Admin: 09/09/23 21:37 Dose: 100 mls/hr Documented By: MONICA Insulin Aspart (Insulin Aspart Per Unit Charge) 0 units SC ACHS ARMANI Stop: 10/09/23 21:14 Last Admin: 09/09/23 22:31 Dose: Not Given Documented By: MONICA Mirtazapine (Mirtazapine Tab 15 Mg Tab) 45 mg PO HS ARMANI Stop: 10/10/23 20:59 Last Admin: 09/09/23 21:25 Dose: 45 mg Documented By: MONICA Miscellaneous (Ativan Iv Alcohol Withdrawal--Active Protocol) 1 each IV UD PRN; Protocol PRN Reason: EtoH Withdrawal AWSS 6-10+ Stop: 10/09/23 21:23 Last Admin: 09/09/23 21:42 Dose: 1 each Documented By: MONICA Potassium Phosphate (Pot Phosphate Monobasic W/ Sod Tab) 2 tab PO QID ARMANI Stop: 10/09/23 20:59 Last Admin: 09/09/23 21:38 Dose: 2 tab Documented By: MONICA Discontinued Medications Gabapentin (Gabapentin 800mg Alcohol Withdrawal Load) 1 each PO NOW STA; Protocol Stop: 09/09/23 16:58 Last Admin: 09/09/23 19:57 Dose: Not Given Documented By: MONICA Gabapentin (Gabapentin 400 Mg Cap) 400 mg PO Q6H [facility] Stop: 09/09/23 17:31 Last Admin: 09/09/23 17:43 Dose: Not Given Documented By: LE Gabapentin (Gabapentin 400 Mg Cap) 800 mg PO NOW ONE Stop: 09/09/23 17:16 Last Admin: 09/09/23 18:09 Dose: 800 mg Documented By: LE Sodium Chloride (Nss) 1,000 mls @ 999 mls/hr IV .Q1H1M ONE Stop: 09/09/23 14:01 Last Infusion: 09/09/23 16:20 Dose: Infused Documented By: Admin: 09/09/23 13:31 Dose: 999 mls/hr Documented By: OLAMIDE Multivitamins 10 ml/ Thiamine HCl 100 mg/ Folic Acid 1 mg/Sodium Chloride 1,011.2 mls @ 500 mls/hr IV .Q2H2M ONE Stop: 09/09/23 15:02 Last Infusion: 09/09/23 16:48 Dose: Infused Documented By: Admin: 09/09/23 14:41 Dose: 500 mls/hr Documented By: CAW Famotidine (Pepcid 20mg Iv Push) 20 mg in 5 mls @ 2.5 mls/min IV NOW STA Stop: 09/09/23 13:02 Last Admin: 09/09/23 13:34 Dose: 2.5 mls/min Documented By: OLAMIDE Potassium Chloride/Sodium Chloride (1/2 Nss + 20meq Kcl 1000ml) 20 meq in 1,000 mls @ 250 mls/hr IV .Q4H ARMANI Stop: 10/09/23 14:29 Last Infusion: 09/09/23 21:16 Dose: 0 mls/hr Documented By: Admin: 09/09/23 19:16 Dose: 250 mls/hr Documented By: Infusion: 09/09/23 19:16 Dose: Infused Documented By: Admin: 09/09/23 18:09 Dose: 250 mls/hr Documented By: LE Thiamine HCl 200 mg/ Sodium (Chloride) 52 mls @ 210 mls/hr IV NOW STA Stop: 09/09/23 14:36 Last Infusion: 09/09/23 16:48 Dose: Infused Documented By: Admin: 09/09/23 16:22 Dose: 210 mls/hr Documented By: JOSE Insulin Human Regular 250 (units/ Sodium Chloride) 250 mls @ 7.4 mls/hr IV .Q24H [facility]; Protocol Stop: 10/09/23 14:29 Last Admin: 09/09/23 20:10 Dose: Not Given Documented By: MONICA Co-signed By: CF Insulin Aspart (Insulin Aspart Per Unit Charge) 0 units SC ACHS [facility] Stop: 10/09/23 18:59 Last Admin: 09/09/23 22:43 Dose: Not Given Documented By: Admin: 09/09/23 19:27 Dose: 4 units Documented By: MONICA Co-signed By: VK Lorazepam (Lorazepam 1 Mg/1 Ml Syr Ed Inj Use) 1 mg IV ONE STA Stop: 09/09/23 13:03 Last Admin: 09/09/23 13:35 Dose: 1 mg Documented By: OLAMIDE Lorazepam (Lorazepam 1 Mg/1 Ml Syr Ed Inj Use) Confirm Administered Dose 1 mg .ROUTE .STK-MED ONE Stop: 09/09/23 17:46 Last Admin: 09/09/23 17:47 Dose: 1 mg Documented By: GHANSHYAM Mcguire (Stat Iv Infusion Titration Per Protocol) 1 each N/A NOW STA; Protocol Stop: 09/09/23 14:19 Last Admin: 09/09/23 20:13 Dose: Not Given Documented By: MONICA Mcguire (Dka Goal Range 150-250 Mg/Dl) 1 each N/A ONE ONE Stop: 09/09/23 14:19 Last Admin: 09/09/23 19:56 Dose: Not Given Documented By: MONICA Ondansetron HCl (Ondansetron Inj 2 Mg/Ml 2 Ml Vial) 4 mg IV NOW STA Stop: 09/09/23 13:02 Last Admin: 09/09/23 13:32 Dose: 4 mg Documented By: [facility] Discharge Plan Visit Data Chief Complaint: Detox Request Stated Complaint: ALCOHOL WITHDRAWAL, DEPRESSION ED Provider: Rafiq Martinez Discharge Problem: DKA (diabetic ketoacidosis), Alcohol withdrawal, Alcohol dependence Patient Disposition: Admitted As Inpatient Discharge Instructions Interventions: ED Discharge Assessment Last Done: 09/09/23 16:43 Discharge Problem: DKA (diabetic ketoacidosis) Qualifiers: Diabetes mellitus type: type 1 Diabetes mellitus complication detail: without coma Qualified Code(s): E10.10 - Type 1 diabetes mellitus with ketoacidosis without coma Alcohol withdrawal Qualifiers: Complication of substance-induced condition: with delirium Qualified Code(s): F 10.931 - Alcohol use, unspecified with withdrawal delirium Alcohol dependence Qualifiers: Substance use status: in withdrawal Complication of substance-induced condition: with delirium Qualified Code(s): F10.231 - Alcohol dependence with withdrawal delirium
[2023-09-09 13:22] LABS: Hematocrit (blood only) 42.7 % (37.0-47.0); Hemoglobin 14.8 g/dl (12.0-16.0); Mean Corpuscular Hgb Conc 34.7 g/dL (32.0-36.0); Mean Corpuscular Volume 89.3 fL (80.0-100.0); Mean Platelet Volume 9.3 fL (9.4-12.4); Platelet Count 250 K/uL (130-400); RDW Coefficient of Variation 14.2 % (11.5-14.5); RDW Standard Deviation 46.6 fL (36.4-46.3); Red Blood Count 4.78 M/uL (4.20-5.40); White Blood Count 5.35 K/ul (4.8-10.8)
[2023-09-09 13:22] LABS: Appearance Urine Clear (Clear); Bacteria Urine Automated Negative (Negative); Bilirubin Urine Negative (Negative); Blood Urine Trace (Negative); Cast Urine Automated 0 /lpf (0-5); Color Urine Yellow; Glucose Urine UA 2+ (Negative); Ketones Urine 1+ (Negative); Leukocyte Esterase Urine Negative (Negative); Nitrite Urine Negative (Negative); Protein Urine 1+ (Negative); RBC Urine Automated 0-4 /hpf (0-4); Specific Gravity Urine 1.008 (1.000-1.030); Urobilinogen Urine Negative (Negative)
[2023-09-09] MEDS: SODIUM CHLORIDE 0.9% 1,000 ML IV ONE (13:31)
[2023-09-09] MEDS: ONDANSETRON INJ 2 MG/ML 2 ML VIAL IV STA (13:32)
[2023-09-09 13:34] LABS: Pregnancy Test, Serum Negative (Negative)
[2023-09-09] MEDS: FAMOTIDINE 20MG IV PUSH 20 MG/5 ML SYR IV STA (13:34)
[2023-09-09] MEDS: LORazepam 1 MG/1 ML SYR ED Inj Use IV STA (13:35)
[2023-09-09 13:59] LABS: Alanine Aminotransferase 163 U/L (7-52); Albumin Globulin Ratio 1.1 (0.9-2); Albumin Level 4.8 gm/dl (3.4-5.0); Alkaline Phosphatase 432 U/L (34-104); Anion Gap 23 (3-11); Aspartate Aminotransferase 267 U/L (13-39); BUN Creatinine Ratio 15.1 (10-20); Bilirubin,Total 0.8 mg/dl (0.2-1.0); Blood Urea Nitrogen 11 mg/dl (6-23); Calcium 10.3 mg/dl (8.6-10.3); Carbon Dioxide 19 mmol/L (21-32); Chloride 88 mmol/L (98-107); Est GFR (African American) 113.7 ml/min; Est GFR (Non-African American) 98.1 ml/min; Globulin 4.3 gm/dl (2.5-4.0); Glucose 298 mg/dl (70-99(Fasting)); Lipase 46 U/L (11-82); Magnesium 2.3 mg/dl (1.7-2.4); Phosphorus 2.5 mg/dl (2.5-4.9); Potassium 4.3 mmol/L (3.5-5.1); Sodium 130 mmol/L (136-145); Thyroid Stimulating Hormone 5.922 uIu/ml (0.300-4.500); Total Protein 9.1 gm/dl (6.0-8.3)
[2023-09-09 14:05] LABS: Basophils # (auto) 0.05 K/uL (0.00-0.20); Basophils % (auto) 0.9 %; Eosinophils # (auto) 0.02 K/uL (0.00-0.50); Eosinophils % (auto) 0.4 %; Immature Granulocytes # (auto) 0.02 K/uL (0.01-0.20); Immature Granulocytes % (auto) 0.4 %; Lymphocytes # (auto) 2.72 K/uL (1.20-3.40); Lymphocytes % (auto) 50.8 %; Monocytes # (auto) 0.29 K/uL (0.11-0.59); Monocytes % (auto) 5.4 %; Neutrophils # (auto) 2.25 K/uL (1.40-6.50); Neutrophils % (auto) 42.1 %; RBC Morphology Unremarkable
[2023-09-09 14:07] LABS: Target Cells 1+
[2023-09-09 14:12] LABS: INR 1.1 (0.9-1.1); Prothrombin Time 12.4 Seconds (9.0-12.0)
[2023-09-09] MEDS ORDERED: INSULIN REGULAR 250 UNITS in SODIUM CHLORIDE 0.9% 247.5 ML IV SCH ×2 (14:30→18:00)
[2023-09-09] MEDS: MULTI-VITAMIN INFUSION 10 ML, THIAMINE HCL 100 MG, FOLIC ACID 1 MG in SODIUM CHLORIDE 0... IV ONE (14:41)
--- NOTE | 2023-09-09 14:47 | History & Physical Report ---
Date of Service September 09, 2023 Assessment & Plan (1) DKA (diabetic ketoacidosis): (2) DKA, type 1: (3) Alcoholism: (4) Metabolic acidosis due to diabetes mellitus: (5) Splenomegaly: (6) Anxiety: Plan: DKA DM type I - BSG 250 on admission, AG 23, bicarb 19, VBG pending, will trend Q4H with mag 2.3, phos 2.5 and BMP, osm 361 - Glycemic pharmacy consulted for insulin gtt - Hx of pancreatitis so GLP-1 not an option, jardiance caused vaginitis and unable to tolerate metformin at even very low doses. - Home meds: Novolin 70/30 insulin 35 U breakfast and 15 U dinner, ( she is more comfortable with this regimen than sliding scale insulin). -Patient has a sensor for glucose on her arm, has it set that when it drops below 100 it alerts for, this is anxiety provoking. - early childhood educator aide consulted- appreciate recs History of alcohol use Liver cirrhosis Elevated transaminases - Patient reports alcohol use generally in remission. Last drink was today-had 2 glasses of wine. Has been drinking 175 ml bottle of vodka in 3 days or drinking a box of wine in 3 days routinely for past 3 weeks. - etoh level 257 on admission - Was previously on naltrexone, stopped taking this several months ago as the prescription ran out - AST and ALT elevated, bili WNL, INR normal - Previously had liver US during most recent admission in Jun which noted enlarged pancreatic duct for which follow up with GI is recommended since it is progressing from 2020 TSH elevation - TSH 5.922, Free T4 - Recheck in 6 weeks to ensure improvement in TSH, likely elevated from the above Anxiety/depression - Remeron, lorazepam, BuSpar, Xanax held while n.p.o. and pending clinical improvement -Psychiatry consulted -We discussed something such as life alert, or an alert bracelet/necklace that she could wear if something like this happen to help reduce potential anxiety. -Patient may also be a good candidate for propranolol for her symptoms regarding heart palpitations, especially with her history of liver cirrhosis, at low-dose could provide symptomatic relief, will defer to psychiatry to initiate -Encourage cognitive behavioral therapy and following up with a new therapist as outpatient -Consider alcohol inpatient detoxification/rehab - CM to assist DVT PPx: subq heparin FEN/GI: NPO, insulin gtt, fluids as above Lines: 2 PIV CODE: Full A total of 76 minutes were spent with greater than 50% of that time face to face with the patient, personally reviewing all current laboratories, imaging studies, past medication reconciliation, outpatient chart review, and discussion with specialists to collaborate care for the patient with attending. Please see attending documentation for corrections and/or additions. History of Present Illness Chief Complaint: Alcohol withdrawal, detox request Primary Care Provider: Krystin Graves MD This is a 47-year-old female with a PMHx of alcohol abuse, alcohol withdrawal, pancreatitis, U admission for suicidal ideation, type I DM, splenomegaly, hepatic steatosis, asthma, GI bleed who presents to the ER with request for alcohol detox, alcohol withdrawal. Patient has been previously noncompliant with insulin. Most recently she was hospitalized from 07/02 to 07/04 here at [facility] for severe DKA, DM type I. In the past 3 weeks she has had severe anxiety, specifically about her insulin dosing and dropping her glucose. She feels back whenever her glucose gets below 100 she gets increasingly worried that she is going to pass out, and more so even if she has not eaten. She also gets severely fearful when she starts thinking about winter months, cold weather, or the potential that she lives alone, and that if she falls down or has a problem she cannot get a hold of anybody. Her main complaints are that she feels that she has heart palpitations, gets sweaty, and needs to walk/pace in her 2 bedroom apartment. She saw a therapist once who she found on the list, states that it was difficult to find somebody who was available and took her insurance, but did not feel she received any real support from this therapist. She does not currently follow with any psychiatrist. She denies specific suicidal or homicidal ideations. She does express anhedonia, and states that if she just stopped breathing, she would be okay with dying currently. In regards to her medications, she currently takes BuSpar 3 times daily, and mirtazapine at bedtime. She has only trialed 1 other previous anxiety/depression medication which was Celexa last summer and reports that it was very difficult to wean off mirtazapine and start Celexa, and did not tolerate it. Therefore went back to mirtazapine. She has been on these two medications for about 3 years and feels it does help her. Pt has been drinking for about 3 weeks. Prior to that had a timeframe of 8 wks clean. Last year in 2022 was clean for about 10 months. Patient states she has had a poor p.o. intake in the last 2 days, but has tolerated juice, water and h as been drinking alcohol daily. She drinks a 750 mL bottle of vodka in about 3 days, or she chooses to drink wine a box of it in 3 days. This morning she had 2 glasses of wine before calling her father who is with her here in the ER. Patient attempted to stop drinking 3 weeks ago after the most recent hospitalization but was unsuccessful due to anxiety attacks as aforementioned. She realizes that she needs to stop drinking alcohol. Patient is open to discussing inpatient rehab for alcohol detox during this admission stay as well as seeing psychiatry. Allergies Allergy/AdvReac Type Severity Reaction Status Date / Time doxycycline Allergy Severe Muscle Pain Verified 09/09/23 14:00 theophylline AdvReac Intermediate VERTIGO Verified 06/10/21 20:50 Home Medications Medication Instructions Recorded Confirmed Type fluticasone 250 mcg-salmeterol 50 1 inh inhalation AMPM 02/27/19 09/09/23 History mcg/dose blistr powdr for inhalation (Advair Diskus) albuterol sulfate 90 mcg/actuation 2 puff inhalation UD PRN Shortness 07/23/19 09/09/23 History aerosol inhaler (Ventolin HFA) Of Breath multivitamin (Daily-Harris tablet) 1 tab PO QAM #0 tabs 07/27/19 09/09/23 Rx ascorbic acid (vitamin C) 500 mg 500 mg PO DAILY 04/05/21 09/09/23 History tablet,extended release (Vitamin C ER) Potassium Otc 1 tab PO BID 04/09/21 09/09/23 History buspirone 10 mg tablet 10 mg PO TID 04/22/22 09/09/23 History mirtazapine 30 mg tablet 45 mg PO HS 04/22/22 09/09/23 History ibuprofen 800 mg tablet 800 mg PO Q8H PRN pain #10 tabs 07/04/23 09/09/23 Rx insulin human U-100 NPH-regulr See Rx Instructions .Route 07/04/23 09/09/23 Rx 70-30 mix 100 unit/mL subcutaneous .COMPLEX #10 mL susp (Novolin 70/30 U-100 Insulin) insulin syringe-needle U-100 1/2 #90 ea 07/04/23 09/09/23 Rx mL 31 gauge x 15/64" loperamide 2 mg capsule 2 mg PO Q4H PRN loose stool #30 07/04/23 09/09/23 Rx caps lorazepam 0.5 mg tablet 0.5 mg PO TID PRN Anxiety 09/09/23 09/09/23 History Past Med/Surg History Medical History (Updated 08/04/23 @ 00:09 by Marla Barbosa) Acute alcoholic pancreatitis Depression with suicidal ideation Suicidal ideation Alcoholic hepatitis Hypophosphatemia Hypomagnesemia Metabolic acidosis Thrush Alcoholic intoxication Thrombocytopenia Alcohol withdrawal Acute alcoholic hepatitis Diabetes mellitus type 1 Acidosis, metabolic Acute pancreatitis Electrolyte abnormality DVT prophylaxis Alcohol withdrawal Alcohol abuse Anxiety Asthma Surgical History History of dental surgery wisdom teeth History of esophagogastroduodenoscopy (EGD) Family History Father Prediabetes Grandfather (Paternal) Diabetes Mother Hypertension MVP (mitral valve prolapse) Social History Smoking Status: Former smoker Tobacco Type: Cigarettes Age Quit Using Tobacco: 39; packs per day: 1; Second Hand Exposure: No; Do You Dip or Chew Tobacco: No; Hx Alcohol Use: Yes Alcohol type: wine Alcohol type Comment: 4 glasses wine daily Hx Substance Use: No Preferred Language: Hebrew Communication Ability: Effective Visual Impairment: No 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 Required: No Beliefs That Will Affect Care: None marital status: marital status details: Single parent Current Living Situation: Alone Current Living Situation Comment: daughter current occupational status: unemployed How many Children do You have: 1 Feels Safe at Home: Yes Safety Concerns: Feels Safe At This Time Childhood Exposure to Second-Hand Smoke: No Gender Identity: Female Assistive Devices: Glasses Review of Systems Review of Systems: Constitutional: No fever, sweats or chills, + shakiness, Eyes: No diplopia, no worsening or blurred vision ENT: normal hearing, no trouble swallowing Respiratory: No cough, sputum, dyspnea at rest or on exertion Cardiovascular: No chest pain, tightness, + palpitations Abdomen: No pain, + bloating, + nausea, no vomiting, no diarrhea or constipation Musculoskeletal: No joint pain, calf pain, swelling Neurologic: No weakness, numbness/tingling, or balance problems Psychiatric: +anxiety and depression as per HPI. Denies homicidal and suicidal ideation. Skin: No rash or itch Physical Exam Physical Exam: General: awake, alert, no apparent distress Head: Normocephalic, atraumatic ENT: PERRL, EOMI, no pharyngeal exudate, mucous membranes moist Chest: Clear to auscultation, on room air, no adventitious breath sounds Cardiac: Regular rate and rhythm, no murmur, no JVD, normal peripheral pulses, good capillary refill Abdominal: NABS x 4 quadrants, soft, nondistended, nontender to palpation, no rebound or guarding Extremities: Normal inspection, no peripheral edema or erythema, calfs nontender to palpation Psych: Denies homicidal or suicidal ideation, depressed mood, anxious affect Neuro: AAO x 3, strength intact bilaterally and rated 5/5, no motor deficits, speech is clear, no peripheral sensory deficits Results & Data Results & Data Vital Signs (Past 12 Hours) Vital Signs Temp Pulse Pulse Resp BP BP Pulse Ox 09/09/23 13:10 36.7 C 97 H 20 125/83 95 09/09/23 13:06 94 H 09/09/23 11:55 36.9 C 104 H 18 147/86 H 97 O2 Del Method 09/09/23 13:10 Room Air 09/09/23 13:06 09/09/23 11:55 Room Air Laboratory Results 09/09/23 09/09/23 09/09/23 15:14 14:49 13:47 WBC RBC Hgb Hct MCV MCH MCHC RDW Std Deviation RDW Coeff of Suzanne Plt Count MPV Immature Gran % (Auto) Neut % (Auto) Lymph % (Auto) Amelia % (Auto) Eos % (Auto) Baso % (Auto) Neut # (Auto) Lymph # (Auto) Amelia # (Auto) Eos # (Auto) Baso # (Auto) Immature Gran # (Auto) RBC Morphology Target Cells PT INR VBG pH 7.39 VBG pCO2 32 L VBG pO2 69 VBG HCO3 19 VBG O2 Saturation 93.7 VBG Base Excess -4.6 Sodium Potassium Chloride Carbon Dioxide Anion Gap BUN Creatinine Est Cr Clr Drug Dosing Est GFR ( Amer) Est GFR (Non-Af Amer) BUN/Creatinine Ratio Glucose POC Glucose 243 H Osmolality Calcium Phosphorus Magnesium Total Bilirubin Direct Bilirubin AST ALT Alkaline Phosphatase Total Protein Albumin Globulin Albumin/Globulin Ratio Lipase TSH Free T4 HCG, Qual Urine Color Urine Appearance Urine pH Ur Specific [place] Urine Protein Urine Glucose (UA) Urine Ketones Urine Blood Urine Nitrite Urine Bilirubin Urine Urobilinogen Ur Leukocyte Esterase Urine WBC (Auto) Urine RBC (Auto) U Hyaline Cast (Auto) U Epithel Cells (Auto) Urine Bacteria (Auto) Ethyl Alcohol mg/dL SARS-CoV-2, RNA, NAAT NEGATIVE 09/09/23 09/09/23 09/09/23 13:24 13:02 12:31 WBC 5.35 RBC 4.78 Hgb 14.8 Hct 42.7 MCV 89.3 MCH 31.0 MCHC 34.7 RDW Std Deviation 46.6 H RDW Coeff of Suzanne 14.2 Plt Count 250 MPV 9.3 L Immature Gran % (Auto) 0.4 Neut % (Auto) 42.1 Lymph % (Auto) 50.8 Amelia % (Auto) 5.4 Eos % (Auto) 0.4 Baso % (Auto) 0.9 Neut # (Auto) 2.25 Lymph # (Auto) 2.72 Amelia # (Auto) 0.29 Eos # (Auto) 0.02 Baso # (Auto) 0.05 Immature Gran # (Auto) 0.02 RBC Morphology Unremarkable Target Cells 1+ PT 12.4 H INR 1.1 VBG pH VBG pCO2 VBG pO2 VBG HCO3 VBG O2 Saturation VBG Base Excess Sodium 130 L Potassium 4.3 Chloride 88 L Carbon Dioxide 19 L Anion Gap 23 H BUN 11 Creatinine 0.73 Est Cr Clr Drug Dosing 96.0 Est GFR ( Amer) 113.7 Est GFR (Non-Af Amer) 98.1 BUN/Creatinine Ratio 15.1 Glucose 298 H POC Glucose 298 H Osmolality 361 H* Calcium 10.3 Phosphorus 2.5 Magnesium 2.3 Total Bilirubin 0.8 Direct Bilirubin TNP AST 267 H ALT 163 H Alkaline Phosphatase 432 H Total Protein 9.1 H Albumin 4.8 Globulin 4.3 H Albumin/Globulin Ratio 1.1 Lipase 46 TSH 5.922 H Free T4 0.80 HCG, Qual Negative Urine Color Urine Appearance Urine pH Ur Specific [place] Urine Protein Urine Glucose (UA) Urine Ketones Urine Blood Urine Nitrite Urine Bilirubin Urine Urobilinogen Ur Leukocyte Esterase Urine WBC (Auto) Urine RBC (Auto) U Hyaline Cast (Auto) U Epithel Cells (Auto) Urine Bacteria (Auto) Ethyl Alcohol mg/dL 257.8 H SARS-CoV-2, RNA, NAAT 09/09/23 12:14 WBC RBC Hgb Hct MCV MCH MCHC RDW Std Deviation RDW Coeff of Suzanne Plt Count MPV Immature Gran % (Auto) Neut % (Auto) Lymph % (Auto) Amelia % (Auto) Eos % (Auto) Baso % (Auto) Neut # (Auto) Lymph # (Auto) Amelia # (Auto) Eos # (Auto) Baso # (Auto) Immature Gran # (Auto) RBC Morphology Target Cells PT INR VBG pH VBG pCO2 VBG pO2 VBG HCO3 VBG O2 Saturation VBG Base Excess Sodium Potassium Chloride Carbon Dioxide Anion Gap BUN Creatinine Est Cr Clr Drug Dosing Est GFR ( Amer) Est GFR (Non-Af Amer) BUN/Creatinine Ratio Glucose POC Glucose Osmolality Calcium Phosphorus Magnesium Total Bilirubin Direct Bilirubin AST ALT Alkaline Phosphatase Total Protein Albumin Globulin Albumin/Globulin Ratio Lipase TSH Free T4 HCG, Qual Urine Color Yellow Urine Appearance Clear Urine pH 6.0 Ur Specific [place] 1.008 Urine Protein 1+ H Urine Glucose (UA) 2+ H Urine Ketones 1+ H Urine Blood Trace H Urine Nitrite Negative Urine Bilirubin Negative Urine Urobilinogen Negative Ur Leukocyte Esterase Negative Urine WBC (Auto) 1-5 Urine RBC (Auto) 0-4 U Hyaline Cast (Auto) 0 U Epithel Cells (Auto) 5-10 H Urine Bacteria (Auto) Negative Ethyl Alcohol mg/dL SARS-CoV-2, RNA, NAAT Supervising Physician Co-Signing Physician Notes Pt was seen and examined by myself, Olinda Hernandez MD on the day of service. Care was coordinated with Ksenia Rodrigez PA-C. 47yoF with PMHx significant for cirrhosis, alcohol abuse presenting with request for detoxification. Noted to be in DKA. Father present at bedside, states he thinks she binges when she is anxious. Thinks that getting the anxiety under control will help with the binging. pt notes passive suicidality, states she would not mind if a disease killed her. Does not follow with psych outpt, states she was referred to counseling last time. States she drinks 2 bottles of vodka and a box of wine in about 3 weeks. On exam, AAOx3 no acute distress Mild diffuse tenderness to the abdomen. DKA- started on insulin drip at low rate, 1/2NSS with K+ and D5w, follow gap, q4h vbg pH, BMP, mag, phos. Follow AM [id number] Elevated liver enzymes, cirrhosis- follow liver enzymes, pt follows with GI Alcohol abuse/Detox- encourage alcohol cessation, AWSS protocol with gabapentin and Active withdrawal Ativan orders Anxiety/depression, passive suicidality- psych consult, appreciate recs Otherwise as above. I spent a total [id number] coordinating, documenting, and providing care for this patient excluding time spent in the performance of separately billed services (1) DKA (diabetic ketoacidosis) Diabetes mellitus complication detail: without coma
--- NOTE | 2023-09-09 15:01 | Electrocardiogram Report ---
Test Reason : Blood Pressure : / mmHG Vent. Rate : 099 BPM Atrial Rate : 099 BPM P-R Int : 136 ms QRS Dur : 080 ms QT Int : 366 ms P-R-T Axes : 042 025 035 degrees QTc Int : 469 ms Normal sinus rhythm Normal ECG When compared with ECG of 30-JUN-2023 10:27, No significant change was found Confirmed by Arnold Schaefer ([id number]) on 09/09/2023 3:01:12 PM Referred By: REFERRED SELF Confirmed By:Faisal Schaefer
[2023-09-09 15:27] LABS: Base Excess VBG -4.6 mEq/L; HCO3 VBG 19 mmol/L; Oxygen Saturation VBG 93.7 %; PCO2 VBG 32 mmHg (38-50); PO2 VBG 69 mmHg; pH VBG 7.39 (7.36-7.41)
[2023-09-09] MEDS: THIAMINE HCL 200 MG in SODIUM CHLORIDE 0.9% 50 ML IV STA (16:22)
[2023-09-09] MEDS ORDERED: PHARMACY GLYCEMIC MGMT CONSULT PRN ×2 (16:57→17:50)
[2023-09-09] MEDS ORDERED: ALBUTEROL HFA 8 GM INHALER INH PRN (16:57)
[2023-09-09] MEDS ORDERED: LORazepam 1 MG in SYRINGE 0.5 ML IV PRN (16:57)
[2023-09-09] MEDS: GABAPENTIN 400 MG CAP PO SCH (17:43)
[2023-09-09] MEDS: LORazepam 1 MG/1 ML SYR ED Inj Use ONE (17:47)
[2023-09-09] MEDS ORDERED: GLUCOSE 40% GEL 15 GM TUBE PO PRN (17:50)
[2023-09-09] MEDS ORDERED: GLUCOSE 10 TAB/TUBE PO PRN (17:50)
[2023-09-09] MEDS ORDERED: GLUCAGON FOR INJ 1 MG VIAL SQ PRN (17:50)
[2023-09-09] MEDS ORDERED: CARBOHYDRATES FOR HYPOGLYCEMIA PO PRN (17:50)
[2023-09-09] MEDS: SODIUM CHLOR 0.45% + 20MEQ KCL 20 MEQ/1,000 ML BAG IV SCH (18:09)
[2023-09-09] MEDS: GABAPENTIN 400 MG CAP PO ONE (18:09)
[2023-09-09] MEDS: INSULIN ASPART PER UNIT CHARGE SC SCH ×2 (19:27→22:31)
[2023-09-09] MEDS: DKA GOAL RANGE 150-250 mg/dl ONE (19:56)
[2023-09-09] MEDS: GABAPENTIN 800MG ALCOHOL WITHDRAWAL LOAD PO STA (19:57)
[2023-09-09] MEDS: INSULIN REGULAR 250 UNITS in SODIUM CHLORIDE 0.9% 247.5 ML IV SCH ×2 (20:10→22:40)
[2023-09-09] MEDS: STAT IV Infusion **Titration per Protocol STA (20:13)
[2023-09-09 20:22] LABS: HCO3 VBG 18 mmol/L; Oxygen Saturation VBG 86.7 %; PCO2 VBG 29 mmHg (38-50); PO2 VBG 54 mmHg; pH VBG 7.41 (7.36-7.41)
[2023-09-09 20:43] LABS: BUN Creatinine Ratio 16.9 (10-20); Calcium 8.8 mg/dl (8.6-10.3); Creatinine Clr Calc Pharmacy 107.8 ml/min; Est GFR (African American) 122.5 ml/min; Est GFR (Non-African American) 105.7 ml/min; Phosphorus 1.8 mg/dl (2.5-4.9)
[2023-09-09] MEDS ORDERED: Nursing to Pharmacy Communication SCH ×2 (20:45→22:45)
[2023-09-09] MEDS ORDERED: POTASSIUM PHOS 3 MMOL/1 ML INFUSION IV STA (20:48)
[2023-09-09] MEDS ORDERED: LANTUS PER UNIT CHARGE SQ SCH (21:00)
[2023-09-09] MEDS ORDERED: INSULIN ASPART PER UNIT CHARGE SC SCH ×2 (21:00)
[2023-09-09] MEDS ORDERED: STAT IV Infusion **Titration per Protocol STA (21:10)
[2023-09-09] MEDS ORDERED: LORazepam 2 MG in SYRINGE 1 ML IV PRN (21:24)
[2023-09-09] MEDS ORDERED: LORazepam 3 MG in SYRINGE 1.5 ML IV PRN (21:24)
[2023-09-09] MEDS: busPIRone 5 MG TAB PO SCH (21:25)
[2023-09-09] MEDS: MIRTAZAPINE TAB 15 MG TAB PO SCH (21:25)
[2023-09-09] MEDS: D5W AND 1/2NSS + 20MEQ KCL 20 MEQ/1,000 ML BAG IV SCH (21:37)
[2023-09-09] MEDS: POT PHOSPHATE MONOBASIC W/ SOD TAB PO SCH (21:38)
[2023-09-09] MEDS: Ativan IV Alcohol Withdrawal--Active Protocol IV PRN (21:42)
[2023-09-09] MEDS: LORazepam 1 MG in SYRINGE 0.5 ML IV PRN (21:42)
[2023-09-09] MEDS: POTASSIUM PHOSPHATE 21 MMOL in SODIUM CHLORIDE 0.9% 500 ML IV STA (21:51)
--- OUTSIDE RECORDS SUMMARY | 2023-09-09 22:26 | External Medical Summary | Summary of Care ---
Author Name Unknown Organization [facility] Address [address] [place] [address] Phone [phone] Care Team Providers Care Hospital Coordinator Name Role Phone Krystin Graves MD Primary Care Provid er Reason for Visit * Reason Comments Diabetes Follow-Up Dosage Adjustment Via Phone (anticoag Cl inic) Encounter Details Date Type Department Care Team (Late st Contact Info) Description 08/14/2023 10:30 AM EST Telemedicine Pharmacy, [facility] [address] [facility] [place] [address] Pharmacist1, [facility] [address] [facility] [place] [address] DM type 2, not at goal ([facility])* Allergies Active Allergy Reactions Criticality Noted Date Comments Doxycycline High 07/15/2023 arthralgia Theophylline 04/30/2002 anxiety Theophylline Sodium Glycinate 2004 nervous documented as of this encounter (statuses as of 08/14/2023) Medications Medication Sig Dispensed Refills Start Date End Date Status Multiple Vitamins-Minerals (MULTIVITAMIN ADULT) TABS Take by mouth. 0 Active Fluticasone-Salmete rol 250-50 MCG/ACT Inhalation Aerosol Powder Breath Activated (Advair Diskus)Indications: Moderate persistent asthma without complication Inhale 1 Puff by mouth in the morning and 1 Puff before bedtime. 3 Each 3 3 Active Glycopyrrolate 1 MG Oral Tablet (Robinul)Indication s:Focal hyperhidrosis Take 1 Tablet by mouth 3 times a day as needed (sweating). 30 Tablet 1 3 Active Albuterol Sulfate HFA 108 (90 Base) MCG/ACT Inhalation Aerosol SolutionIndications :Moderate persistent asthma without complication Inhale 2 Puffs by mouth in the morning and 2 Puffs at noon and 2 Puffs in the evening and 2 Puffs before bedtime. Inhale 2 Puffs by mouth 4 times a day.. 18 g 5 3 Active Atorvastatin Calcium 20 MG Oral Tablet (Lipitor)Indication s:Dyslipidemia, goal LDL below 70 Take 1 Tablet by mouth daily. 90 Tablet 3 3 Active Additional Information Patient not taking.Reported on 07/12/2023 Mirtazapine 45 MG Oral Tablet (Remeron)Indication s:Panic attack Take 1 Tablet by mouth at bedtime. 90 Tablet 1 3 Active FreeStyle [place] Lite w/Device KitIndications:DM type 2, not at goal (HCC) Use to check sugars daily. E 11.9 1 Kit 0 3 Active Fiasp FlexTouch 100 UNIT/ML Subcutaneous Solution Pen-injector (Insulin Aspart (w/Niacinamide))Ind ications:DM type 2, not at goal (HCC) Inject 5 units under the skin before breakfast, lunch, and dinner. Replaces 70/30 insulin. 15 mL 0 3 Active BD Insulin Syringe U-100 1 ML (Insulin Syringes (Disposable))Indica tions:DM type 2, not at goal (HCC) Please use with Semglee insulin once daily E11.9 100 Each 3 3 Active BD Pen Needle Gertrude U/F 32G X 4 MM (Insulin Pen Needle)Indications: DM type 2, not at goal (HCC) Use with Fiasp insulin three times daily E11.9 300 Each 3 3 Active Triamcinolone Acetonide 55 MCG/ACT Nasal Aerosol (Nasacort Allergy 24HR) Administer into nostril as needed for Rhinitis. 0 Active busPIRone HCl 10 MG Oral Tablet (Buspar) Take 1 Tablet by mouth in the morning and 1 Tablet at noon and 1 Tablet before bedtime. 270 Tablet 1 4 10/13/19 24 Active LORazepam 0.5 MG Oral Tablet (Ativan)Indications :Panic attack Take 1 Tablet by mouth 3 times a day as needed for Anxiety. 15 Tablet 0 4 Active FreeStyle Beth 3 SensorIndications:D M type 2, not at goal ([facility]) Use as directed. Replace sensors every 14 days. 6 Each 3 4 Active Zinc 20 MG Oral Capsule Take by mouth. 0 Active Melatonin 10 MG Oral Tablet Disintegrating Take by mouth. 0 Active traMADol HCl 50 MG Oral Tablet (Ultram)Indications :Hip pain, left Take 1 Tablet by mouth every 6 hours as needed for Pain, Severe. 10 Tablet 0 4 Active Cyclobenzaprine HCl 5 MG Oral Tablet (Flexeril)Indicatio ns:Hip pain, left,Strain of left piriformis muscle, initial encounter Take 1 Tablet by mouth 3 times a day as needed for Muscle spasms. 30 Tablet 0 4 Active NovoLIN 70/30 FlexPen Relion (70-30) 100 UNIT/ML Suspension Pen-injector (Insulin NPH Isophane & Regular)Indications :DM type 2, not at goal ([facility]) Inject under the skin 45 units at breakfast and 20 units at dinner. Increase by 2 units every 3 days until fasting BG <180. 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 . documented as of this encounter (statuses as of 08/14/2023) Resolved Problems Problem Noted Date Diagnosed Date [...] as of this encounter (statuses as of 08/14/2023) Immunizations Name Administration Dates Next Due COVID-19 mRNA, LNP-s, No Pre serve, 2-Dose Series (GlySens) 04/17/2021,08/22/2020 Covid-19, Mrna, Lnp-s, Pf, B ivalent, 30 Mcg, IM, 12 yrs and above (Pfizer) 03/20/2022,09/25/2021 Hepatitis B, 20+ yrs 03/05/2021 Pneumococcal Conjugate Vacci ne, 20-valent ([id number]) 02/20/2023 Pneumococcal Polysaccharide PPV23 (Pneumovax) 03/19/2018 Seasonal [...] Date Smoking Tobacco: Former Cigarettes 1 2 0 08/23/1994 - 08/23/1996 Passive Smoke Exposure: Never Smokeless Tobacco: [...] as of this encounter Progress Notes * Vel Mccormick, [facility] - 08/14/2023 10:10 AM EST Images from the original note were not included. Medication Therapy Disease Management Clinic - Diabetes Management Progress Note Patient Phone Numbers After connecting to the patient via telephone, the patient was identified by name and date of . Patient was then informed that this was a telephone call only visit. The patient agreed to participate. Visit Disposition: Routine follow-up Total call duration was 10 minutes. DIABETES: Current diabetic medications: Novolin 70/30- 35 units in AM; 15 units in PM START: Fiasp 2 units with breakfast Medication Injection Site: Abdomen Lifestyle: Diet: improved History of Treatment Barriers: Lifestyle: None Therapy considerations: Recurrent UTI and/or Yeast Infection - use SGLT-2 with caution and Pancreatitis - use GLP-1/DPP-4 with caution Medication: hx of acute pancreatitis- avoiding GLPs at this time, Jardiance caused vaginitis, unable to tolerate metformin due to N/V even at very lowest doses Glucose Review/SMBG: Readings obtained from patient device Hypoglycemia: Does your blood sugar go below 70 mg/dL? No Hyperglycemia symptoms present: polydipsia Goal <8 Recent Labs Units 06/30/23 0000 08/02/22 0000 09/07/20 0407 HEMOGLOBIN, [id number] LAB 11.3 10.3* 5.2 Recent Labs Units 07/12/23 1058 08/02/22 0000 11/20/20 1052 08/30/20 2232 11/25/18 0000 ESTIMATED GLOMERULAR FILTRATION RATE - [facility] mL/min >90 -- -- -- -- EGFR-OUTSIDE LAB ML/MIN -- 86 -- -- 80 CREATININE - [facility] mg/dL 0.6 -- -- -- -- CREATININE-OUTSIDE LAB MG/DL -- 0.85 0.59 < > 0.88 < > = values in this interval not displayed. Lab Results Component Value Date/Time CREATININE - [facility] 0.6 07/12/2023 10:58 AM CREATININE, RANDOM URINE - [facility] 93 10/21/2022 10:16 AM CREATININE-OUTSIDE LAB 0.85 08/02/2022 12:00 AM CREATININE-OUTSIDE LAB 0.59 11/20/2020 10:52 AM CREATININE-OUTSIDE LAB 0.69 09/11/2020 05:20 AM CREATININE-OUTSIDE LAB 0.76 09/10/2020 02:44 AM HYPERTENSION: Patient on ACEi/ARB: no, not indicated based on UACR or B BP Readings from Last 3 Encounters: 07/29/23 166/68 07/15/23 122/64 07/12/23 118/66 Blood pressure at goal: yes HYPERLIPIDEMIA: Patient is taking moderate or high intensity statin: yes, Atorvastatin 20mg daily HEALTH MAINTENANCE REVIEW: Health Maintenance Due Topic Date Due Depression Screening 08/03/2020 Colorectal Cancer Screening Never done Hepatitis B (2 of 3 - 19+ 3-dose series) 04/02/2021 Influenza Vaccine (FLU shot) (1) 02/21/2023 COVID-19 Vaccine ( - 2022- season) 2023 Albumin/Creatinine Ratio 10/22/2023 ASSESSMENT & PLAN: ICD-10-CM 1. DM type 2, not at goal (HCC) E11.9 BG Readings - Blood sugars uncontrolled. She needs more 70/30 insulin and more Fiasp but I will start with 70/30 and get overnight BG at goal then address mealtime. Medications - Reviewed current regimen, patient is adherent to regimen. Insulin needs have increased significantly. Diet, Exercise, Lifestyle - No significant lifestyle changes since last visit. Discussed with patient today. Patient is agreeable to wear Beth CGM. Patient aware to contact clinic if any hypoglycemia before next visit. MEDICATION CHANGES: yes, see below; preferred pharmacy: [facility] Diabetic Medications: Novolin 70/30- 45 units in AM; 20 units in PM plus increase by 2 units every 3 days until BG <180 in AM (fasting) Fiasp 2 units with breakfast HEALTH MAINTENANCE INTERVENTIONS: Labs: Up to Date Immunizations: needs flu and 2nd and 3rd hepatitis B Foot Exam: Up to Date Eye Exam: Up to Date Annual Wellness Visit: N/A FOLLOW UP: Phone call follow up in 3 weeks with Beth data 09/04/2023 Vel Byrne RPh, CACP, CDE Clinical Pharmacist Medication Therapy Management Clinic 08/14/2023 10:13 AM documented in this encounter Plan of Treatment Upcoming Encounters Date Type Department Care Team (Late st Contact Info) Description 09/04/2023 10:30 AM EDT Telemedicine Pharmacy, [facility] [address] [facility] [place] [address] Pharmacist1, [facility] [address] [facility] [place] [address] 10/07/2023 1:00 PM EDT Laboratory Laboratory, [place] [address] [place] [phone] [facility] [address] [place], [place] [id number] 10/14/2023 8:00 AM EDT Telemedicine Gastroenterology, [facility] [address] [facility] [address] Viktoriya Vega CRNP [address] [facility] [place] [address] 10/14/2023 3:00 PM EDT Office Visit Family Practice, [place] [address] [place] [facility] [place] [phone] Krystin Graves MD [address] [facility] [place] [id number] Health Maintenance Due Date Last Done Comments Depression Screening 08/03/2020 08/03/2019, 11/01/2014 (Discussed) Cologuard 11/18/2020 Colonoscopy 11/18/2020 Colorectal Cancer Screening 11/18/2020 Fecal Occult Blood Test 11/18/2020 Sigmoidoscopy 11/18/2020 Hepatitis B (2 of 3 - 19+ 3-dose series) 04/02/2021 03/05/2021 COVID-19 Vaccine ( season) 2023 03/20/2022, 09/25/2021, 04/17/2021, Additional history exists Influenza Vaccine (FLU shot) (#1) 2023 03/13/2020, 04/22/2019, 04/22/2019, Additional history exists DTaP,Tdap,and Td Vaccines (2 - Td or Tdap) 09/01/2023 08/31/2013, 10/09/2005, 10/09/2005, Additional history exists Albumin/Creatinine Ratio 10/22/2023 10/21/2022 Diabetic Foot Exam 10/22/2023 10/21/2022, 06/14/2020 HbA1c 12/29/2023 06/30/2023, 07/24, 09/07/2020, Additional history exists Mammogram 01/14/2024 01/13/2023, 01/22, 10/25/2016, Additional history exists GFR 07/12/2024 07/12/2023, 07/24, 11/20/2020, Additional history exists Diabetic Eye Exam 07/29/2024 07/29/2023, 02/23/2022 Pap Smear 01/03/2026 01/03/2023, 04/0 09/2016, 09/24/2016, [...] mention of complication, not stated as uncontrolled documented in this encounter Care Teams Hospital Coordinator Relationship Specialty Start Date End Date Krystin Graves MD [address] [place] [address] PCP - General Family Medicine 10/21/22 documented as of this encounter
--- OUTSIDE RECORDS SUMMARY | 2023-09-09 22:26 | External Medical Summary | Summary of Care ---
Author Name Unknown Organization [facility] Address [address] [place] [address] Phone [phone] Care Team Providers Care Primary Montessori Teacher Name Role Phone Krystin Graves MD Primary Care Provid er Reason for Visit * Reason Onset Date Comments Test Results 07/14/2023 Encounter Details Date Type Department Care Team (Late st Contact Info) Description 07/14/2023 Telephone General Internal Medicine [facility] [address] [place] [address] Valeria Parra MD [address] [place] [address] Test Results Allergies Active Allergy Reactions Criticality Noted Date Comments Doxycycline High 07/15/2023 arthralgia Theophylline 04/30/2002 anxiety Theophylline Sodium Glycinate 2004 nervous documented as of this encounter (statuses as of 08/05/2023) Medications Medication Sig Dispensed Refills Start Date End Date Status Multiple Vitamins-Minerals (MULTIVITAMIN ADULT) TABS Take by mouth. 0 Active Fluticasone-Salme terol 250-50 MCG/ACT Inhalation Aerosol Powder Breath Activated (Advair Diskus)Indication s:Moderate persistent asthma without complication Inhale 1 Puff by mouth in the morning and 1 Puff before bedtime. 3 Each 3 3 Active Glycopyrrolate 1 MG Oral Tablet (Robinul)Indicati ons:Focal hyperhidrosis Take 1 Tablet by mouth 3 times a day as needed (sweating). 30 Tablet 1 3 Active Albuterol Sulfate HFA 108 (90 Base) MCG/ACT Inhalation Aerosol SolutionIndicatio ns:Moderate persistent asthma without complication Inhale 2 Puffs by mouth in the morning and 2 Puffs at noon and 2 Puffs in the evening and 2 Puffs before bedtime. Inhale 2 Puffs by mouth 4 times a day.. 18 g 5 3 Active Atorvastatin Calcium 20 MG Oral Tablet (Lipitor)Indicati ons:Dyslipidemia, goal LDL below 70 Take 1 Tablet by mouth daily. 90 Tablet 3 3 Active Additional Information Patient not taking.Reported on 07/12/2023 Mirtazapine 45 MG Oral Tablet (Remeron)Indicati ons:Panic attack Take 1 Tablet by mouth at bedtime. 90 Tablet 1 3 Active FreeStyle [place] Lite w/Device KitIndications:DM type 2, not at goal (HCC) Use to check sugars daily. E 11.9 1 Kit 0 3 Active Fiasp FlexTouch 100 UNIT/ML Subcutaneous Solution Pen-injector (Insulin Aspart (w/Niacinamide))I ndications:DM type 2, not at goal (HCC) Inject 5 units under the skin before breakfast, lunch, and dinner. Replaces 70/30 insulin. 15 mL 0 3 Active BD Insulin Syringe U-100 1 ML (Insulin Syringes (Disposable))Miladis cations:DM type 2, not at goal (HCC) Please use with Semglee insulin once daily E11.9 100 Each 3 3 Active BD Pen Needle Gertrude U/F 32G X 4 MM (Insulin Pen Needle)Indication s:DM type 2, not at goal (HCC) Use with Fiasp insulin three times daily E11.9 300 Each 3 3 Active NovoLIN 70/30 FlexPen Relion (70-30) 100 UNIT/ML Suspension Pen-injector (Insulin NPH Isophane & Regular)Indicatio ns:DM type 2, not at goal (HCC) Inject under the skin 35 units at breakfast and 15 units at dinner or as directed 45 mL 3 4 Active Triamcinolone Acetonide 55 MCG/ACT Nasal Aerosol (Nasacort Allergy 24HR) Administer into nostril as needed for Rhinitis. 0 Active busPIRone HCl 10 MG Oral Tablet (Buspar) Take 1 Tablet by mouth in the morning and 1 Tablet at noon and 1 Tablet in the evening. Pt unsure of dose, she takes 2 pills 3 times a day. 0 3 07/15/19 24 Discontinued(Re fill) LORazepam 0.5 MG Oral Tablet (Ativan)Indicatio ns:Panic attack Take 1 Tablet by mouth 3 times a day as needed for Anxiety. 15 Tablet 0 3 07/18/19 24 Discontinued(Re fill) Cephalexin 250 MG Oral CapsuleIndication s:Cellulitis of right wrist Take 1 Capsule by mouth in the morning and 1 Capsule at noon and 1 Capsule before bedtime. Do all this for 7 days. 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 . documented as of this encounter (statuses as of 08/05/2023) Resolved Problems Problem Noted Date Diagnosed Date Resolved Date Disorder of electrolytes 10/21/202206/2022 Gastric reflux 10/21/2022 10/21/2022 Problem related to discharge planning 10/21/2022 10/21/2022 Depression 10/21/2022 10/21/2022 Coffee ground emesis 10/21/2022 023 Alcoholic hepatitis 10/21/2022 10/22/19 23 Acute upper gastrointestinal hemorrhage 10/21/2022 10/21/2022 Acute renal failure 10/21/2022 10/22/19 23 Acute pancreatitis 10/21/2022 3 Cirrhosis of liver 09/11/2022 3 Acute kidney injury 09/04/2020 05/01/20 23 Ascites due to alcoholic hepatitis 08/31/2020 [...] as of this encounter (statuses as of 08/05/2023) Immunizations Name Administration Dates Next Due COVID-19 mRNA, LNP-s, No Pre serve, 2-Dose Series (g2One) 04/17/2021,08/22/2020 Covid-19, Mrna, Lnp-s, Pf, B ivalent, 30 Mcg, IM, 12 yrs and above (g2One) 03/20/2022,09/25/2021 HEP A - Hepatitis A (Adult > 18 yrs) 01/21/2001 Hepatitis B, 20+ yrs 03/05/2021 Pneumococcal Conjugate Vacci ne, 20-valent ([id number]) 02/20/2023 Pneumococcal Conjugate Vacci ne, 7 Valent [...] Telephone Encounter - Fay Wheeler LPN - 08/05/2023 2:54 PM EST Pt had f/u with pcp on 07/15. * Telephone Encounter - Genaro Menendez LPN - 07/14/2023 3:53 PM EST Left message for patient to return call. * Telephone Encounter - Genaro Menendez LPN - 07/14/2023 3:51 PM EST ----- Message from Valeria Parra MD sent at 07/14/2023 12:55 PM EST ----- Seen at [facility], acute appt Labs-significantly elevated CRP and sed rate-marker of inflammation Normal CBC, kidney function, sugar is high and hence sodium is low, liver function abnormalities and follow-up with PCP tomorrow for hosp f/u of DKA and discussion. Ct f/u [facility] clinic -refer rheumatology -may need to consider low dose prednisone therapy if sugars are better controlled documented in this encounter Plan of Treatment Upcoming Encounters Date Type Department Care Team (Late st Contact Info) Description 08/14/2023 10:30 AM EST Telemedicine Pharmacy, [facility] [address] [facility] [address] Pharmacist1, [facility] [address] [facility] [place] [address] 10/07/2023 1:00 PM EDT Laboratory Laboratory, [place] [address] [place] [facility] [place] [phone] [place], Laboratory [address] [place] [address] 10/14/2023 8:00 AM EDT Telemedicine Gastroenterology, [facility] [address] [place] [address] Viktoriya Vega CRNP [address] [place] [address] 10/14/2023 3:00 PM EDT Office Visit [facility], [place] [address] [facility] [phone] Krystin Graves MD [address] [facility] [place] [id number] Health Maintenance Due Date Last Done Comments [...] filedocumented as of this encounter Care Teams Primary Montessori Teacher Relationship Specialty Start Date End Date Krystin Graves MD [address] [place] [address] PCP - General Family Medicine 10/21/22 documented as of this encounter
--- OUTSIDE RECORDS SUMMARY | 2023-09-09 22:26 | External Medical Summary | Summary of Care ---
Author Name Unknown Organization [facility] Address [address] [place] [address] Phone [phone] Care Team Providers Care Director Federal Name Role Phone Sugar Meyer MD Primary Care Provid er Reason for Visit * Reason Onset Date Comments Medication Refill 08/14/2023 Encounter Details Date Type Department Care Team (Late st Contact Info) Description 08/14/[address] [facility] [address] [place] [address] Sugar Meyer MD [address] [place] [address] Panic attack Allergies Active Allergy [...] 12/20/2022 Active Glycopyrrolate 1 MG Oral Tablet (Francisco)Indication s:Focal hyperhidrosis Take 1 Tablet by mouth [...] mouth daily. 90 Tablet 3 02/11/2023 Active Additional Information Patient not taking.Reported on 07/12/2023 Mirtazapine 45 MG Oral Tablet (Remeron)Indication s:Panic attack Take 1 Tablet by mouth at bedtime. 90 Tablet 1 04/08/2023 Active FreeStyle [place] Lite w/Device KitIndications:DM type 2, not at goal (HCC) Use to check sugars daily. E 11.9 1 Kit 0 04/16/2023 Active Fiasp FlexTouch 100 UNIT/ML Subcutaneous Solution Pen-injector (Insulin Aspart (w/Niacinamide))Ind ications:DM type 2, not at goal (HCC) Inject 5 units under the skin before breakfast, lunch, and dinner. Replaces 70/30 insulin. 15 mL 0 04/24/2023 Active BD Insulin Syringe [...] daily E11.9 300 Each 3 04/24/2023 Active Triamcinolone Acetonide 55 MCG/ACT Nasal Aerosol (Nasacort Allergy 24HR) Administer into nostril as needed for Rhinitis. 0 Active busPIRone HCl 10 MG Oral Tablet (Buspar) Take 1 Tablet by mouth in the morning and 1 Tablet at noon and 1 Tablet before bedtime. 270 Tablet 1 07/15/2023 Active FreeStyle Beth 3 SensorIndications:D M type 2, not at goal ([facility]) Use as directed. Replace sensors every 14 days. 6 Each 3 07/23/2023 Active Zinc 20 MG Oral Capsule Take by mouth. 0 Active Melatonin 10 MG Oral Tablet Disintegrating Take by mouth. 0 Active traMADol HCl 50 MG Oral Tablet (Ultram)Indications :Hip pain, left Take 1 Tablet by mouth every 6 hours as needed for Pain, Severe. 10 Tablet 0 07/29/2023 Active Cyclobenzaprine HCl 5 MG Oral Tablet (Flexeril)Indicatio ns:Hip pain, left,Strain of left piriformis muscle, initial encounter Take 1 Tablet by mouth 3 times a day as needed for Muscle spasms. 30 Tablet 0 07/29/2023 Active LORazepam 0.5 MG Oral Tablet (Ativan)Indications :Panic attack Take 1 Tablet by mouth 3 times a day as needed for Anxiety. 15 Tablet 0 08/14/2023 Active NovoLIN 70/30 FlexPen Relion (70-30) 100 UNIT/ML Suspension Pen-injector (Insulin NPH Isophane & Regular)Indications :DM type 2, not at goal ([facility]) Inject under the skin 45 units at breakfast and 20 units at dinner. Increase by 2 units every 3 days until fasting BG <180. Or as directed 0 08/14/2023 Active LORazepam 0.5 MG Oral Tablet (Ativan)Indications :Panic attack Take 1 Tablet by mouth 3 times a day as needed for Anxiety. 15 Tablet 0 07/20/2023 4 Discontinu ed(Refill) documented as of this encounter [...] mRNA, LNP-s, No Pre serve, 2-Dose Series ([employer]) 04/17/2021,08/22/2020 Covid-19, Mrna, Lnp-s, Pf, B ivalent, 30 Mcg, IM, 12 yrs and above ([employer]) 03/20/2022,09/25/2021 Hepatitis B, 20+ yrs 03/05/2021 Pneumococcal Conjugate Vacci ne, 20-valent ([id number]) 02/20/2023 Pneumococcal Polysaccharide PPV23 (Pneumovax) 03/19/2018 Seasonal [...] Telephone Encounter - Sugar Meyer MD - 08/14/2023 3:27 PM EST Signed Prescriptions: Disp Refills LORazepam 0.5 MG Oral Tablet (Ativan) 15 Tab*0 Sig: Take 1 Tablet by mouth 3 times a day as needed for Anxiety. Authorizing Provider: SUGAR MEYER * Telephone Encounter - Kinsey Wong [facility] - 08/14/2023 2:33 PM ESTPending Prescriptions: Disp Refills LORazepam 0.5 MG Oral Tablet (Ativan) 15 Tab*0 Sig: Take 1 Tablet by mouth 3 times a day as needed for Anxiety. * Telephone Encounter - Kinsey Wong [facility] - 08/14/2023 2:33 PM EST I have reviewed the patients controlled substance dispensing history in the Prescription Drug Monitoring Program in compliance with the [facility] regulations before prescribing a controlled substance. PDMP checked on 08/14/2023. Pending Prescriptions: Disp Refills LORazepam 0.5 MG Oral Tablet (Ativan) 15 Tab*0 Sig: Take 1 Tablet by mouth 3 times a day as needed for Anxiety. Last Visit: 07/29/2023 (in office), 04/08/2023 (telemedicine) Next Visit: 10/14/2023 Date medication was last filled: 07/20/23 Date medication is due for refill: 07/24/23 Pharmacy: [id number] Is this request for a controlled substance? [...] available upon request. Please approve if appropriate. Kinsey Dozier Clinical Pharmacist [facility] Services ([facility]PS) (Formerly Telepharmacy) [phone] 08/14/2023, 2:33 PM documented in this encounter Plan of Treatment Upcoming Encounters Date Type Department Care Team (Late st Contact Info) Description 09/04/2023 10:30 AM EDT Telemedicine Pharmacy, [facility] [address] [facility] [address] Pharmacist1, [facility] [address] [facility] [place] [address] 10/07/2023 1:00 PM EDT Laboratory Laboratory, [place] [address] [facility] [place] [phone] [place], Laboratory [address] [place] [address] 10/14/2023 8:00 AM EDT Telemedicine Gastroenterology, [address] [place] [address] Viktoriya Vega CRNP [address] [place] [address] 10/14/2023 3:00 PM EDT Office Visit [facility] [address] [facility] [phone] Sugar Meyer MD [address] [place] [address] Health Maintenance Due Date Last Done Comments Depression Screening 08/03/2020 08/03/2019, 11/01/2014 (Discussed) Cologuard 11/18/2020 Colonoscopy 11/18/2020 Colorectal Cancer Screening 11/18/2020 Fecal Occult Blood Test 11/18/2020 Sigmoidoscopy 11/18/2020 Hepatitis B (2 of 3 - 19+ 3-dose series) 04/02/2021 03/05/2021 COVID-19 Vaccine ( - 2022- season) 2023 [...] agoraphobia documented in this encounter Care Teams Director Federal Relationship Specialty Start Date End Date Sugar Meyer MD [address] [place] [address] PCP - General Family Medicine 10/21/22 documented as of this encounter
--- OUTSIDE RECORDS SUMMARY | 2023-09-09 22:26 | External Medical Summary | Summary of Care ---
Author Name Unknown Organization [facility] Address [address] [place] [address] Phone [phone] Care Team Providers Care Personal Lines Account Manager Name Role Phone Krystin Graves MD Primary Care Provid er Reason for Visit * Reason Onset Date Comments Scan To Read 07/29/2023 Encounter Details Date Type Department Care Team (Late st Contact Info) Description 07/29/2023 Telephone [facility] [address] [place] [address] Krystin Graves MD [address] [place] [address] Scan To Read Allergies Active Allergy Reactions Criticality Noted Date Comments Doxycycline High 07/15/2023 arthralgia Theophylline 04/30/2002 anxiety Theophylline Sodium Glycinate 2004 nervous documented as of this encounter (statuses as of 07/31/2023) Medications Medication Sig Dispensed Refills Start Date End Date Status Multiple Vitamins-Minerals (MULTIVITAMIN ADULT) TABS Take by mouth. 0 Active Fluticasone-Salmeter ol 250-50 MCG/ACT Inhalation Aerosol Powder Breath Activated (Advair Diskus)Indications:M oderate persistent asthma without complication Inhale 1 Puff by mouth in the morning and 1 Puff before bedtime. 3 Each 3 12/20/2022 Active Glycopyrrolate 1 MG Oral Tablet (Francisco)Indications :Focal hyperhidrosis Take 1 Tablet by mouth [...] on 07/12/2023 Mirtazapine 45 MG Oral Tablet (Remeron)Indications :Panic attack Take 1 Tablet by mouth at bedtime. 90 Tablet 1 04/08/2023 Active FreeStyle [place] Lite w/Device KitIndications:DM type 2, not at goal (HCC) Use to check sugars daily. E 11.9 1 Kit 0 04/16/2023 Active Fiasp FlexTouch 100 UNIT/ML Subcutaneous Solution Pen-injector (Insulin Aspart (w/Niacinamide))Miladis cations:DM type 2, not at goal (HCC) Inject 5 units under the skin before breakfast, lunch, and dinner. Replaces 70/30 insulin. 15 mL 0 04/24/2023 Active BD Insulin Syringe U-100 1 ML (Insulin Syringes (Disposable))Indicat ions:DM type 2, not at goal (HCC) Please use with Semglee insulin once daily E11.9 100 Each 3 04/24/2023 Active BD Pen Needle Gertrude U/F 32G X 4 MM (Insulin Pen Needle)Indications:D M type 2, not at goal (HCC) Use with Fiasp insulin three times daily E11.9 300 Each 3 04/24/2023 Active NovoLIN 70/30 FlexPen Relion (70-30) 100 UNIT/ML Suspension Pen-injector (Insulin NPH Isophane & Regular)Indications: DM type 2, not at goal (HCC) Inject under the skin 35 units at breakfast and 15 units at dinner or as directed 45 mL 3 07/09/2023 Active Triamcinolone Acetonide 55 MCG/ACT Nasal Aerosol (Nasacort Allergy 24HR) Administer into nostril as needed for Rhinitis. 0 Active busPIRone HCl 10 MG Oral Tablet (Buspar) Take 1 Tablet by mouth in the morning and 1 Tablet at noon and 1 Tablet before bedtime. 270 Tablet 1 07/15/2023 4 Active LORazepam 0.5 MG Oral Tablet (Ativan)Indications: Panic attack Take 1 Tablet by mouth 3 times a day as needed for Anxiety. 15 Tablet 0 07/20/2023 Active FreeStyle Beth 3 SensorIndications:DM type 2, not at goal ([facility]) Use as directed. Replace sensors every 14 days. 6 Each 3 07/23/2023 Active Zinc 20 MG Oral Capsule Take by mouth. 0 Active Melatonin 10 MG Oral Tablet Disintegrating Take by mouth. 0 Active traMADol HCl 50 MG Oral Tablet (Ultram)Indications: Hip pain, left Take 1 Tablet by mouth every 6 hours as needed for Pain, Severe. 10 Tablet 0 07/29/2023 Active Cyclobenzaprine HCl 5 MG Oral Tablet (Flexeril)Indication s:Hip pain, left,Strain of left piriformis muscle, initial encounter Take 1 Tablet by mouth 3 times a day as needed for Muscle spasms. 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 . documented as of this encounter (statuses as of 07/31/2023) Resolved Problems Problem Noted Date Diagnosed Date Resolved Date Disorder of electrolytes 10/21/202206/2022 Gastric reflux 10/21/2022 10/21/2022 Problem related to discharge planning 10/21/2022 10/21/2022 Depression 10/21/2022 10/21/2022 Coffee ground emesis 10/21/2022 023 Alcoholic hepatitis 10/21/2022 10/22/19 23 Acute upper gastrointestinal hemorrhage 10/21/2022 10/21/2022 Acute renal failure 10/21/2022 10/22/19 23 Acute pancreatitis 10/21/2022 Cirrhosis of liver 09/11/2022 3 Acute kidney injury 09/04/2020 10/22/19 Ascites due [...] as of this encounter (statuses as of 07/31/2023) Immunizations Name Administration Dates Next Due COVID-19 mRNA, LNP-s, No Pre serve, 2-Dose Series ([employer]) 04/17/2021,08/22/2020 Covid-19, Mrna, Lnp-s, Pf, B ivalent, 30 Mcg, IM, 12 yrs and above ([employer]) 03/20/2022,09/25/2021 Hepatitis B, 20+ yrs 03/05/2021 Pneumococcal Conjugate Vacci ne, 20-valent ([id number]) 02/20/2023 Pneumococcal Polysaccharide PPV23 (Pneumovax) 03/19/2018 Seasonal [...] encounter Miscellaneous Notes * Telephone Encounter - Geovani Burt MD - 07/30/2023 7:22 AM EST Retinal Scan Imaging [facility] [place] [id number] Retinal Scan Interpretation: There is no retinopathy in both eyes Diabetes Retinal Imaging Care Plan: The retinal scan results are normal - I will forward this encounter to the Ophthalmology DM Letter Pool [[id number]], they will send a normal retinal scan letter to the patient, and the patient will be seen back for a yearly scan. Geovani Burt MD 07/30/2023 7:22 AM * Telephone Encounter - Sade Thorne LPN - 07/29/2023 3:52 PM EST A Diabetic Telemed Eye image was taken and requires your interpretation for Dr. Graves. Please check your inbasket for image. Patient prefers to be seen at [facility] if a follow-up appointment is needed. documented in this encounter Plan of Treatment Upcoming Encounters Date Type Department Care Team (Late st Contact Info) Description 08/14/2023 10:30 AM EST Telemedicine Pharmacy, [facility] [address] [facility] [place] [address] Pharmacist1, [facility] [address] [facility] [place] [address] 10/07/2023 1:00 PM EDT Laboratory Laboratory, [address] [phone] [address] 10/14/2023 8:00 AM EDT Telemedicine Gastroenterology, [facility] [address] [place] [address] Viktoriya Vega CRNP [address] [place] [address] 10/14/2023 3:00 PM EDT Office Visit Family [facility], [address] [phone] Krystin Graves MD [address] [place] [address] Health Maintenance Due Date Last Done Comments Depression Screening 08/03/2020 08/03/2019, 11/01/2014 (Discussed) Cologuard 11/18/2020 Colonoscopy 11/18/2020 Colorectal Cancer Screening 11/18/2020 Fecal Occult Blood Test 11/18/2020 Sigmoidoscopy 11/18/2020 Hepatitis B (2 of 3 - 19+ 3-dose series) 04/02/2021 03/05/2021 COVID-19 Vaccine (2022- season) 2023 03/20/2022, 09/25/2021, [...] filedocumented as of this encounter Care Teams Personal Lines Account Manager Relationship Specialty Start Date End Date rKystin Graves MD [address] [place] [address] PCP - General Family Medicine 10/21/22 documented as of this encounter
--- OUTSIDE RECORDS SUMMARY | 2023-09-09 22:26 | External Medical Summary | Summary of Care ---
Author Name Unknown Organization [facility] Address [address] [place] [address] Phone [phone] Care Team Providers Care Senior Online Marketing Manager Name Role Phone Krystin Graves MD Primary Care Provid er Reason for Visit * Reason Comments Diabetes Follow-Up Dosage Adjustment Via Phone (anticoag Cl inic) Encounter Details Date Type Department Care Team (Late st Contact Info) Description 09/04/2023 10:30 AM EDT Telemedicine Pharmacy, [facility] 200 [place] [address] Pharmacist1, [facility] [address] [place] [address] DM type 2, not at goal (HCC)* Allergies Active Allergy Reactions Criticality Noted Date Comments Doxycycline High 07/15/2023 arthralgia Theophylline 04/30/2002 anxiety Theophylline Sodium Glycinate 2004 nervous documented as of this encounter (statuses as of 09/04/2023) Medications Medication Sig Dispensed Refills Start Date End Date Status Multiple Vitamins-Minerals (MULTIVITAMIN ADULT) TABS Take by mouth. 0 Active Fluticasone-Salmeter ol 250-50 MCG/ACT Inhalation Aerosol Powder Breath Activated (Advair Diskus)Indications:M oderate persistent asthma without complication Inhale 1 Puff by mouth in the morning and 1 Puff before bedtime. 3 Each 3 12/20/2022 Active Glycopyrrolate 1 MG Oral Tablet (Robinul)Indications [...] bedtime. 90 Tablet 1 04/08/2023 Active FreeStyle [place] Lite w/Device KitIndications:DM type 2, not at [...] Tablet 1 07/15/2023 Active FreeStyle Beth 3 SensorIndications:DM type 2, not at goal (HCC) Use as directed. Replace sensors every 14 [...] 07/29/2023 Active LORazepam 0.5 MG Oral Tablet (Ativan)Indications: Panic attack Take 1 Tablet by mouth 3 times a day as needed for Anxiety. 15 Tablet 0 08/14/2023 Active NovoLIN 70/30 FlexPen Relion (70-30) 100 UNIT/ML Suspension Pen-injector (Insulin NPH Isophane & Regular)Indications: DM type 2, not at goal ([facility]) Inject under the skin 45 units at breakfast and 20 units at dinner. Increase by 2 units every 3 days until fasting BG <180. 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 . documented as of this encounter (statuses as of 09/04/2023) Resolved Problems Problem Noted Date Diagnosed Date [...] as of this encounter (statuses as of 09/04/2023) Immunizations Name Administration Dates Next Due COVID-19 mRNA, LNP-s, No Pre serve, 2-Dose Series ([employer]) 04/17/2021,08/22/2020 Covid-19, Mrna, Lnp-s, Pf, B ivalent, 30 Mcg, IM, 12 yrs and above ([employer]) 03/20/2022,09/25/2021 Hepatitis B, 20+ yrs 03/05/2021 Pneumococcal Conjugate Vacci ne, 20-valent ([id number]) 02/20/2023 Pneumococcal Polysaccharide PPV23 (Pneumovax) 03/19/2018 Seasonal [...] this encounter Progress Notes * Vel Mccormick, BRANDEE - 09/04/2023 10:02 AM EDT Images from the original note were not included. Medication Therapy [facility] - Diabetes Management Progress Note Patient Phone Numbers Left message at 10:34 AM, 1:36 PM asking patient to call clinic. Left message at 3:21 PM that I will call her on 09/14. DIABETES: Current diabetic medications: Novolin 70/30- 45 units in AM; 20 units in PM plus increase by 2 units every 3 days until BG <180 in AM (fasting) Fiasp 2 units with breakfast Medication Injection Site: Abdomen History of Treatment [...] 06/30/23 0000 08/02/22 0000 09/07/20 0407 HEMOGLOBIN, [id number] LAB 11.3 10.3* 5.2 Recent Labs Units [...] Vaccine (FLU shot) (1) 02/21/2023 COVID-19 Vaccine (5 - 2022- season) 2023 DTaP,Tdap,and Td Vaccines (2 - Td or Tdap) 09/01/2023 Albumin/Creatinine Ratio 10/22/2023 ASSESSMENT & PLAN: ICD-10-CM 1. DM type 2, not at goal (HCC) E11.9 BG Readings - Blood sugars uncontrolled. She needs more 70/30 insulin and more Fiasp. FOLLOW UP: Return to clinic in 11 days weeks Visit date not found Vel Byrne RPh, CACP, CDE Clinical Pharmacist Medication Therapy Management [facility] 09/04/2023 10:03 AM documented in this encounter Plan of Treatment Upcoming Encounters Date Type Department Care Team (Late st Contact Info) Description 09/15/2023 3:30 PM EDT Telemedicine Pharmacy, [facility] 200 [facility] [place] [address] Pharmacist1, [facility] [address] [facility] [place] [address] 10/07/2023 1:00 PM EDT Laboratory Laboratory, [place] [address] [facility] [phone] [place], [facility] [address] [facility] [address] 10/14/2023 8:00 AM EDT Telemedicine Gastroenterology, [facility] [address] [place] [address] Viktoriya Vega CRNP [address] [facility] [place] [address] 10/14/2023 3:00 PM EDT Office Visit [facility] [address] [facility] [phone] Krystin Graves MD [address] [place] [facility] [place] [address] Health Maintenance Due Date Last Done Comments [...] uncontrolled documented in this encounter Care Teams Senior Online Marketing Manager Relationship Specialty Start Date End Date Krystin Graves MD [address] [place] [address] PCP - General Family Medicine 10/21/22 documented as of this encounter
--- OUTSIDE RECORDS SUMMARY | 2023-09-09 22:27 | External Medical Summary | Summary of Care ---
Author Name Unknown Organization [facility] Address [address] [place] [address] Phone [phone] Care Team Providers Care Pipe Fitter Soft Copper Name Role Phone Krystin Graves MD Primary Care Provid er Reason for Visit * Reason Comments Outpatient Testing Encounter Details Date Type Department Care Team (Late st Contact Info) Description 07/24/2023 1:50 PM EST Laboratory Laboratory, [place] [address] [place] [address] [place], Laboratory [address] [place] [address] Polyarthralgia Allergies Active Allergy Reactions Criticality Noted Date Comments Doxycycline High 07/15/2023 arthralgia Theophylline 04/30/2002 anxiety Theophylline Sodium Glycinate 2004 nervous documented as of this encounter (statuses as of 07/24/2023) Medications Medication Sig Dispensed Refills Start Date [...] bedtime. 90 Tablet 1 04/08/2023 Active FreeStyle [place] Lite w/Device KitIndications:DM type 2, not at [...] Regular)Indications :DM type 2, not at goal (HCC) [...] Tablet before bedtime. 270 Tablet 1 07/15/2023 10/13/2023 Active LORazepam 0.5 MG Oral Tablet (Ativan)Indications :Panic attack Take 1 Tablet by mouth 3 times a day as needed for Anxiety. 15 Tablet 0 07/20/2023 Active FreeStyle Beth 3 SensorIndications:D M type 2, not at goal ([facility]) Use as directed. Replace sensors every 14 days. 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 . documented as of this encounter (statuses as of 07/24/2023) Resolved Problems Problem Noted Date Diagnosed Date [...] as of this encounter (statuses as of 07/24/2023) Immunizations Name Administration Dates Next Due COVID-19 mRNA, LNP-s, No Pre serve, 2-Dose Series ([employer]) 04/17/2021,08/22/2020 Covid-19, Mrna, Lnp-s, Pf, B ivalent, 30 Mcg, IM, 12 yrs and above ([employer]) 03/20/2022,09/25/2021 Hepatitis B, 20+ yrs 03/05/2021 Pneumococcal Conjugate Vacci ne, 20-valent ([id number]) 02/20/2023 Pneumococcal Polysaccharide PPV23 (Pneumovax) 03/19/2018 Seasonal [...] Care Team (Late st Contact Info) Description 07/25/2023 10:30 AM EST Telemedicine Pharmacy, [facility] [address] [place] [address] Pharmacist1, [facility] [address] [place] [place] [address] 10/07/2023 1:00 PM EDT Laboratory Laboratory, [place] [address] [facility] [place] [phone] José Miguel Bhatt [address] [facility] [place] [address] 10/14/2023 8:00 AM EDT Telemedicine Gastroenterology, [facility] [address] [place] [address] Viktoriya Vega CRNP [address] [place] [address] 10/14/2023 3:00 PM EDT Office Visit [facility] [address] [facility] [phone] Krystin Graves MD [address] [place] [address] Pending Results Name Type Priority Associated Diagnoses Date /Time URIC ACID Lab Routine Polyarthralgia 07/24/2023 1:47 PM EST Health Maintenance Due Date Last Done [...] history exists Diabetic Eye Exam 02/23/2023 02/23/2022 DTaP,Tdap,and Td Vaccines (2 - Td or Tdap) 09/01/2023 08/31/2013, 10/09/2005, 10/09/2005, Additional history exists Albumin/Creatinine Ratio 10/22/2023 10/21/2022 Diabetic Foot Exam 10/22/2023 10/21/2022, 06/14/2020 HbA1c 12/29/2023 06/30/2023, 07/24, 09/07/2020, Additional history exists Mammogram 01/14/2024 01/13/2023, 01/22, 10/25/2016, Additional history exists GFR 07/12/2024 07/12/2023, 07/24, 11/20/2020, Additional history exists Pap Smear 01/03/2026 01/03/2023, [...] as of this encounter Visit Diagnoses Diagnosis Polyarthralgia Pain in joint, multiple sites documented in this encounter Care Teams Pipe Fitter Soft Copper Relationship Specialty Start Date End Date Krystin Graves MD [address] [place] [facility] [place] [address] PCP - General Family Medicine 10/21/22 documented as of this encounter
--- OUTSIDE RECORDS SUMMARY | 2023-09-09 22:27 | External Medical Summary | Summary of Care ---
Author Name Unknown Organization [facility] Address [address] [place] [address] Phone [phone] Care Team Providers Care Photographic Supervisor Name Role Phone Krystin Graves MD Primary Care Provid er Reason for Referral * Evaluate & Treat - Unlimited Visits (Within 10 days (routine)) - Pending Review Specialty Diagnoses / Procedures Referred By Yaneli hidalgo Referred To Contact Gastroenterology Diagnoses DM type 2, not at goal (HCC) Alcoholism (HCC) Alcoholic cirrhosis, unspecified whether ascites present (HCC) Elevated LFTs Krystin Graves MD [address] [place] [address] Referral ID Status Reason Start Date Expiration Date Visits Requested Visits Authorized [id number] Pending Review Specialty Services Required 07/15/[phone] Question Answer Referral Priority Within 10 days (routine) Where should this appointment be scheduled? [facility] For what condition is the patient being referred? All Gastro Conditions Comments Enlarged pancreatic duct on US liver while inpatient - LFT s elevated in setting of DKA. Reason for Visit * Reason Onset Date Comments Hospital Follow-Up DKA Hospital Follow-Up 07/15/2023 Encounter Details Date Type Department Care Team (Late st Contact Info) Description 07/15/2023 3:00 PM EST Office Visit [facility] [address] [place] [address] Krystin Graves MD [address] [place] [address] Hospital discharge follow-up*; DM type 2, not at goal (HCC); Alcoholism (HCC); Major depressive disorder, recurrent episode, moderate (HCC); Alcoholic cirrhosis, unspecified whether ascites present (HCC); Elevated LFTs; Diabetic ketoacidosis without coma associated with diabetes mellitus due to underlying condition (HCC); Polyarthralgia; ESR raised; CRP elevated Allergies Active Allergy Reactions Criticality Noted Date Comments Doxycycline High 07/15/2023 arthralgia Theophylline 04/30/2002 anxiety Theophylline Sodium Glycinate 2004 nervous documented as of this encounter (statuses as of 07/15/2023) Medications Medication Sig Dispensed Refills Start Date [...] bedtime. 90 Tablet 1 3 Active FreeStyle Hoffman Lite w/Device KitIndications:DM type 2, not at goal ([facility]) Use to check sugars daily. E 11.9 1 Kit 0 3 Active Fiasp FlexTouch 100 UNIT/ML Subcutaneous Solution Pen-injector (Insulin Aspart (w/Niacinamide))I ndications:DM type 2, not at goal ([facility]) Inject 5 units under the skin before breakfast, lunch, and dinner. Replaces 70/30 insulin. 15 mL 0 3 Active BD Insulin Syringe U-100 1 ML (Insulin Syringes (Disposable))Miladis cations:DM type 2, not at goal ([facility]) Please use with Semglee insulin once daily E11.9 100 Each 3 3 Active BD Pen Needle Gertrude U/F 32G X 4 MM (Insulin Pen Needle)Indication s:DM type 2, not at goal ([facility]) Use with Fiasp insulin three times daily E11.9 300 Each 3 3 Active LORazepam 0.5 MG Oral Tablet (Ativan)Indicatio ns:Panic attack Take 1 Tablet by mouth 3 times a day as needed for Anxiety. 15 Tablet 0 3 Active NovoLIN 70/30 FlexPen Relion (70-30) 100 UNIT/ML Suspension Pen-injector (Insulin NPH Isophane & Regular)Indicatio ns:DM type 2, not at goal ([facility]) Inject under the skin 35 units at [...] 270 Tablet 1 4 10/13/19 24 Active busPIRone HCl 10 MG Oral Tablet (Buspar) Take 1 Tablet by mouth in the morning and 1 Tablet at noon and 1 Tablet in the evening. Pt unsure of dose, she takes 2 pills 3 times a day. 0 3 07/15/19 24 Discontinued(Re fill) Cephalexin 250 MG Oral CapsuleIndication s:Cellulitis of right wrist Take 1 Capsule by mouth in the morning and 1 Capsule at noon and 1 Capsule before bedtime. Do all this for 7 days. 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 . documented as of this encounter (statuses as of 07/15/2023) Resolved Problems Problem Noted Date Diagnosed Date [...] as of this encounter (statuses as of 07/15/2023) Immunizations Name Administration Dates Next Due COVID-19 mRNA, LNP-s, No Pre serve, 2-Dose Series ([employer]) 04/17/2021,08/22/2020 Covid-19, Mrna, Lnp-s, Pf, B ivalent, 30 Mcg, IM, 12 yrs and above ([employer]) 03/20/2022,09/25/2021 Hepatitis B, 20+ yrs 03/05/2021 Pneumococcal Conjugate Vacci ne, 20-valent ([id number]) 02/20/2023 Pneumococcal Polysaccharide PPV23 (Pneumovax) 03/19/2018 Seasonal [...] Sign Reading Time Taken Comments Blood Pressure 122/64 07/15/2023 3:15 PM EST Pulse 71 07/15/2023 3:15 PM EST Temperature 36 C (96.8 F) 07/15/2023 3:15 PM EST Respiratory Rate 16 07/15/2023 3:15 PM EST Oxygen Saturation 97% 07/15/2023 3:15 PM EST Inhaled Oxygen Concentration - - Weight 75 kg (165 lb 4.8 oz) 07/15/2023 3:15 PM EST Height 157.5 cm (5' 2") 07/15/2023 3:15 PM EST Body Mass Index 30.23 07/15/2023 3:15 PM EST documented in this encounter Progress Notes * Krystin Graves MD - 07/15/2023 3:27 PM EST ASSESSMENT / PLAN: Marcus Avelar is a 47 year old female with PMHx alcoholism / hepatitis / h/o acute pancreatitis and REG / diabetes insulin dependent - Here for ALEX - admitted at [facility] the following dates 06/30 - Presented with: sob, feeling unwell, medication noncompliance Diagnosis: severe DKA, BSG 424 on admission, anion gap 40, bicarb 4 Hospital stay complicated by: 1- infiltrated IV site and cellulitis - given doxy 2- elev LFTs - did down trend before DC but US Liver done - showed enlarged pancreatic duct for which GI f/u recommended Treatments / 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 medications: 1 - resume Novolin 70/30 U100 insulin 35U w breakfast and 15U with dinner Possible allergic reaction to Doxycycline Took doxy Friday night, 2 doses sat, then 1-2 doses Sun then began the joint pains began - she continued doxy for several more days and since her wrist cellulitis was so improved, she self Dc'd doxy and improvement was quick #Alcoholism, early remission / h/o alcoholic hepatitis/pancreatitis/cirrhosis 2014 - 2021 Cont 50mg naltrexone daily Attends [employer] online Recommend return for regular f/u with GI in setting of recent elev LFTs (likely 2/2 DKA not so muchalcohol use) - she is agreeable #Anxiety Stable, Complicated by panic attacks Urine tox completed and normal, agree to #15 lorazepam monthly as needed for panic attacks Cont mirtazapine (historically we did try to wean and this caused severe anxiety) #T2DM Neg MORIS 65/normal c pep so this is true T2DM Cont Following with MTM, titrating insulin HLD Given recent elev LFT s - will DC for now - and then consider resuming statin once LFT s have normalized. Follow Up: Return in about 3 months (around 10/14/2023) for Labs 2-5 Days Before Next Visit. | For: Labs 2-5 Days Before Next Visit Hospital discharge follow-up (Primary) - DISCH MED RECON CUR MED LIS DM type 2, not at goal (HCC) - DISCH MED RECON CUR MED LIS - ADULT GASTROENTEROLOGY REFERRAL OP - COMPREHENSIVE METABOLIC PANEL; Future; Expected date: 10/14/2023 - HEMOGLOBIN A1C; Future; Expected date: 10/14/2023 Alcoholism (HCC) - DISCH MED RECON CUR MED LIS - ADULT GASTROENTEROLOGY REFERRAL OP - COMPREHENSIVE METABOLIC PANEL; Future; Expected date: 10/14/2023 - HEMOGLOBIN A1C; Future; Expected date: 10/14/2023 Major depressive disorder, recurrent episode, moderate (HCC) - DISCH MED RECON CUR MED LIS Alcoholic cirrhosis, unspecified whether ascites present (HCC) - DISCH MED RECON CUR MED LIS - ADULT GASTROENTEROLOGY REFERRAL OP - COMPREHENSIVE METABOLIC PANEL; Future; Expected date: 10/14/2023 - HEMOGLOBIN A1C; Future; Expected date: 10/14/2023 Elevated LFTs - DISCH MED RECON CUR MED LIS - ADULT GASTROENTEROLOGY REFERRAL OP - COMPREHENSIVE METABOLIC PANEL; Future; Expected date: 10/14/2023 - HEMOGLOBIN A1C; Future; Expected date: 10/14/2023 Diabetic ketoacidosis without coma associated with diabetes mellitus due to underlying condition (HCC) - DISCH MED RECON CUR MED LIS Polyarthralgia - ERYTHROCYTE SEDIMENTATION RATE (ESR); Future; Expected date: 10/14/2023 - CRP (INFLAMMATORY MARKER); Future; Expected date: 10/14/2023 ESR raised - ERYTHROCYTE SEDIMENTATION RATE (ESR); Future; Expected date: 10/14/2023 - CRP (INFLAMMATORY MARKER); Future; Expected date: 10/14/2023 CRP elevated - ERYTHROCYTE SEDIMENTATION RATE (ESR); Future; Expected date: 10/14/2023 - CRP (INFLAMMATORY MARKER); Future; Expected date: 10/14/2023 Other orders - busPIRone HCl 10 MG Oral Tablet (Buspar); Take 1 Tablet by mouth in the morning and 1 Tablet at noon and 1 Tablet before bedtime. Follow Up: Return in about 3 months (around 10/14/2023) for Labs 2-5 Days Before Next Visit. | For: Labs 2-5 Days Before Next Visit I spent a total of 40-54 minutes (exact time 40 mins) on the date of service in preparation, delivery, and documentation of the care provided to Marcus Avelar excluding any time spent in the performance of separately billed services. If needed, prefers contact by: Ok to leave message on phone: SUBJECTIVE: Nursing Notes: eDana Elizabeth, [facility] 07/15/23 1516 Signed Marcus Avelar is a 47 year old female who presents today for Chief Complaint Patient presents with Hospital Follow-Up DKA HPI: Marcus Avelar is a 47 year old female. Here for ALEX see A/p for details Over all improved since hospital stay Did appear to have severe joint pains while on doxy so we've added this to allergy list for now Cellulitis is much improved - advised no further abx at this point since she did complete at least 7 days. 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 Fluticasone-Salmeterol 250-50 MCG/ACT Inhalation Aerosol Powder Breath Activated (Advair Diskus) Inhale 1 Puff by mouth in the morning and 1 Puff before bedtime. 3 Each 3 Glycopyrrolate 1 MG Oral Tablet (Robinul) [...] 4 times a day.. 18 g 5 Mirtazapine 45 MG Oral Tablet (Remeron) Take 1 Tablet by mouth at bedtime. 90 Tablet 1 [employer] Lite w/Device Kit Use to check sugars daily. E 11.9 1 Kit 0 Fiasp FlexTouch 100 UNIT/ML Subcutaneous Solution Pen-injector (Insulin Aspart (w/Niacinamide)) Inject 5 units under the skin before breakfast, lunch, and dinner. Replaces 70/30 insulin. 15 mL 0 BD Insulin Syringe U-100 1 ML (Insulin Syringes (Disposable)) Please use with Semglee insulin once daily E11.9 100 Each 3 BD Pen Needle Gertrude U/F 32G X 4 MM (Insulin Pen Needle) Use with Fiasp insulin three times daily E11.9 300 Each 3 LORazepam 0.5 MG Oral Tablet (Ativan) Take 1 Tablet by mouth 3 times a day as needed for Anxiety. 15 Tablet 0 NovoLIN 70/30 FlexPen Relion (70-30) 100 UNIT/ML Suspension Pen-injector (Insulin NPH Isophane & Regular) Inject under the skin 35 units at breakfast and 15 units at dinner or as directed 45 mL 3 Triamcinolone Acetonide 55 MCG/ACT Nasal Aerosol (Nasacort Allergy 24HR) Administer into nostril asneeded for Rhinitis. busPIRone HCl 10 MG Oral Tablet (Buspar) Take 1 Tablet by mouth in the morning and 1 Tablet at noonand 1 Tablet before bedtime. 270 Tablet 1 Atorvastatin Calcium 20 MG Oral Tablet (Lipitor) Take 1 Tablet by mouth daily. (Patient not taking:Reported on 07/12/2023) 90 Tablet 3 No current facility-administered medications for this visit. OBJECTIVE: BP 122/64 | Pulse 71 | Temp 36 C (96.8 F) (Temporal Artery) | Resp 16 | Ht 1.575 m (5' 2") | Wt75 kg (165 lb 4.8 oz) | SpO2 97% | BMI 30.23 kg/m | BSA 1.81 m Vitals reviewed and is normotensive / afebrile / and not tachycardic General: No acute distress. Neuro: Alert Pleasant & interactive. Respiratory: Good inspiratory effort, no labored breathing. MSK: right wrist with very mild localized erythema at site of IV infiltration and small scab at that site, no oozing, nontender. HEENT: Conjunctivae appear clear. No swelling noted face or lips. Skin: No rash visible on exposed skin areas, normal coloration & appears dry. Psych: Normal affect. Fluent speech. Krystin Graves MD [address] [address] There are no Patient Instructions on file for this visit. documented in this encounter Nursing Notes * Deana Elziabeth CCMA - 07/15/2023 3:15 PM EST Marcus Avelar is a 47 year old female who presents today for Chief Complaint Patient presents with Hospital Follow-Up DKA documented in this encounter Plan of Treatment Upcoming Encounters Date Type Department Care Team (Late st Contact Info) Description 07/25/2023 10:30 AM EST Telemedicine Pharmacy, [facility] [address] [address] Pharmacist1, [facility] [address] [place] [address] 10/07/2023 1:00 PM EDT Laboratory Laboratory, [place] [address] [facility], [place] [address] [place], Laboratory [address] [place], [place] [id number] 10/14/2023 8:00 AM EDT Telemedicine Gastroenterology, [facility] [address] [place] [address] Viktoriya Vega CRNP [address] [place] [address] 10/14/2023 3:00 PM EDT Office Visit [facility], [place] [address] [facility], [place] [address] Krystin Graves MD [address], [place] [id number] Scheduled Orders Name Type Priority Associated Diagnoses Orde r Schedule COMPREHENSIVE METABOLIC PANEL Lab Routine DM type 2, not at goal (HCC) Alcoholism (HCC) Alcoholic cirrhosis, unspecified whether ascites present (HCC) Elevated LFTs Expected: 10/14/2023 (Approximate), Expires: 08/15/2024 HEMOGLOBIN A1C Lab Routine DM type 2, not at goal (HCC) Alcoholism (HCC) Alcoholic cirrhosis, unspecified whether ascites present (HCC) Elevated LFTs Expected: 10/14/2023 (Approximate), Expires: 08/15/2024 ERYTHROCYTE SEDIMENTATION RATE (ESR) Lab Routine Polyarthralgia ESR raised CRP elevated Expected: 10/14/2023 (Approximate), Expires: 08/15/2024 CRP (INFLAMMATORY MARKER) Lab Routine Polyarthralgia ESR raised CRP elevated Expected: 10/14/2023 (Approximate), Expires: 08/15/2024 Scheduled Referrals Name Type Priority Associated Diagnoses Order Schedule ADULT GASTROENTEROLOGY REFERRAL OP Referral Within 10 days (routine) DM type 2, not at goal (HCC) Alcoholism (HCC) Alcoholic cirrhosis, unspecified whether ascites present (HCC) Elevated LFTs Ordered: 07/15/2023 Health Maintenance Due Date Last Done Comments [...] as of this encounter Visit Diagnoses Diagnosis Hospital discharge follow-up- Primary Other follow-up examination DM type 2, not at goal (HCC) Type II or unspecified type diabetes mellitus without mention of complication, not stated as uncontrolled Alcoholism (HCC) Other and unspecified alcohol dependence, unspecified drinking behavior Major depressive disorder, recurrent episode, moderate (HCC) Major depressive disorder, recurrent episode, moderate Alcoholic cirrhosis, unspecified whether ascites present (HCC) Elevated LFTs Other abnormal blood chemistry Diabetic ketoacidosis without coma associated with diabetes mellitus due to underlying condition (HCC) Polyarthralgia Pain in joint, multiple sites ESR raised Elevated sedimentation rate CRP elevated Elevated C-reactive protein (CRP) documented in this encounter Care Teams Photographic Supervisor Relationship Specialty Start Date End Date Krystin Graves MD [address] [place] [address] PCP - General Family Medicine 10/21/22 documented as of this encounter
--- OUTSIDE RECORDS SUMMARY | 2023-09-09 22:27 | External Medical Summary | Summary of Care ---
Author Name Unknown Organization [facility] Address [address] [place] [address] Phone [phone] Care Team Providers Care Light Rail Operator Name Role Phone Krystin Graves MD Primary Care Provid er Reason for Visit * Reason Onset Date Comments Test Results 07/14/2023 Encounter Details Date Type Department Care Team (Late st Contact Info) Description 07/14/2023 Telephone General Internal Medicine [facility] [address] [place] [address] Valeria Parra MD [address] [place] [address] Test Results Allergies Active Allergy Reactions Criticality Noted Date Comments Theophylline 04/30/2002 anxiety Theophylline Sodium Glycinate 2004 nervous documented as of this encounter (statuses as of 07/14/2023) Medications Medication Sig Dispensed Refills Start Date End Date Status Multiple Vitamins-Minerals (MULTIVITAMIN ADULT) TABS Take by mouth. 0 Active busPIRone HCl 10 MG Oral Tablet (Buspar) Take 1 Tablet by mouth in the morning and 1 Tablet at noon and 1 Tablet in the evening. Pt unsure of dose, she takes 2 pills 3 times a day. 0 10/08/2022 Active Fluticasone-Salmete rol 250-50 MCG/ACT Inhalation Aerosol [...] bedtime. 90 Tablet 1 04/08/2023 Active FreeStyle Doucette Lite w/Device KitIndications:DM type 2, not at [...] for Anxiety. 15 Tablet 0 06/10/2023 Active NovoLIN 70/30 FlexPen Relion (70-30) 100 UNIT/ML Suspension Pen-injector (Insulin NPH Isophane & Regular)Indications :DM type 2, not at goal ([facility]) Inject under the skin 35 units at breakfast and 15 units at dinner or as directed 45 mL 3 07/09/2023 Active Triamcinolone Acetonide 55 MCG/ACT Nasal Aerosol (Nasacort Allergy 24HR) Administer into nostril as needed for Rhinitis. 0 Active Cephalexin 250 MG Oral CapsuleIndications: Cellulitis of right wrist Take 1 Capsule by mouth in the morning and 1 Capsule at noon and 1 Capsule before bedtime. Do all this for 7 days. 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 . documented as of this encounter (statuses as of 07/14/2023) Resolved Problems Problem Noted Date Diagnosed Date [...] as of this encounter (statuses as of 07/14/2023) Immunizations Name Administration Dates Next Due COVID-19 mRNA, LNP-s, No Pre serve, 2-Dose Series ([employer]) 04/17/2021,08/22/2020 Covid-19, Mrna, Lnp-s, Pf, B ivalent, 30 Mcg, IM, 12 yrs and above ([employer]) 03/20/2022,09/25/2021 Hepatitis B, 20+ yrs 03/05/2021 Pneumococcal Conjugate Vacci ne, 20-valent ([id number]) 02/20/2023 Pneumococcal Polysaccharide PPV23 (Pneumovax) 03/19/2018 Seasonal [...] encounter Miscellaneous Notes * Telephone Encounter - Genaro Menendez LPN - 07/14/2023 3:53 PM EST Left message for patient to return call. * Telephone Encounter - Genaro Menendez LPN - 07/14/2023 3:51 PM EST ----- Message from Valeria Parra MD sent at 07/14/2023 12:55 PM EST ----- Seen at weekend clinic, acute appt Labs-significantly elevated CRP and sed rate-marker of inflammation Normal CBC, kidney function, sugar is high and hence sodium is low, liver function abnormalities and follow-up with PCP tomorrow for hosp f/u of DKA and discussion. Ct f/u [facility] clinic -refer rheumatology -may need to consider low dose prednisone therapy if sugars are better controlled documented in this encounter Plan of Treatment Upcoming Encounters Date Type Department Care Team (Late st Contact Info) Description 07/15/2023 3:00 PM EST Office Visit [facility] [address] [facility] [place] [address] Krystin Graves [facility] [address] [facility] [address] 07/25/2023 10:30 AM EST Telemedicine Pharmacy, [facility] [address] [facility] [place] [address] Pharmacist1, [facility] [address] [facility] [place], [place] [address] Health Maintenance Due Date Last Done Comments [...] filedocumented as of this encounter Care Teams Light Rail Operator Relationship Specialty Start Date End Date Krystin Graves MD [address] [place] [facility] [place] [address] PCP - General Family Medicine 10/21/22 documented as of this encounter
--- OUTSIDE RECORDS SUMMARY | 2023-09-09 22:27 | External Medical Summary | Summary of Care ---
Author Name Unknown Organization [facility] Address [address] [place] [address] Phone [phone] Care Team Providers Care Concrete Finishing Machine Operator Name Role Phone Krystin Graves MD Primary Care Provid er Reason for Visit * Reason Onset Date Comments Test Results 07/14/2023 Encounter Details Date Type Department Care Team (Late st Contact Info) Description 07/14/2023 Telephone General Internal Medicine [facility] [address] [place] [address] Valeria Parra MD [address] [place] [address] Test Results Allergies Active Allergy Reactions Criticality Noted Date Comments Doxycycline High 07/15/2023 arthralgia Theophylline 04/30/2002 anxiety Theophylline Sodium Glycinate 2004 nervous documented as of this encounter (statuses as of 07/16/2023) Medications Medication Sig Dispensed Refills Start Date [...] bedtime. 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 . documented as of this encounter (statuses as of 07/16/2023) Resolved Problems Problem Noted Date Diagnosed Date [...] as of this encounter (statuses as of 07/16/2023) Immunizations Name Administration Dates Next Due COVID-19 mRNA, LNP-s, No Pre serve, 2-Dose Series ([place]) 04/17/2021,08/22/2020 Covid-19, Mrna, Lnp-s, Pf, B ivalent, 30 Mcg, IM, 12 yrs and above ([place]) 03/20/2022,09/25/2021 HEP A - Hepatitis A (Adult > 18 yrs) 01/21/2001 Hepatitis B, 20+ yrs 03/05/2021 Pneumococcal Conjugate Vacci ne, 20-valent ([id number]) 02/20/2023 Pneumococcal Conjugate Vacci ne, 7 Valent [...] 07/14/2023 12:55 PM EST ----- Seen at [facility], acute appt Labs-significantly elevated CRP and sed rate-marker of inflammation Normal CBC, kidney function, sugar is high and hence sodium is low, liver function abnormalities and follow-up with PCP tomorrow for hosp f/u of DKA and discussion. Ct f/u [facility] clinic -refer rheumatology -may need to consider low dose prednisone therapy if sugars are better controlled documented in this encounter Plan of Treatment Upcoming Encounters Date Type Department Care Team (Late st Contact Info) Description 07/25/2023 10:30 AM EST Telemedicine Pharmacy, [facility] [address] [facility] [place] [address] Pharmacist1, [facility] [address] [facility] [place] [address] 10/07/2023 1:00 PM EDT Laboratory Laboratory, [place] [address] [place] [address] [facility] [address] [place] [address] 10/14/2023 8:00 AM EDT Telemedicine Gastroenterology, [facility] [address] [place] [address] Viktoriya Vega CRNP [address] [place] [place] [address] 10/14/2023 3:00 PM EDT Office Visit [facility] [address] [place] [address] Krystin Graves MD [address] [place] [address] Health Maintenance Due Date Last [...] filedocumented as of this encounter Care Teams Concrete Finishing Machine Operator Relationship Specialty Start Date End Date Krystin Graves MD [address] [place] [address] PCP - General Family Medicine 10/21/22 documented as of this encounter
--- OUTSIDE RECORDS SUMMARY | 2023-09-09 22:27 | External Medical Summary | Summary of Care ---
Author Name Unknown Organization [facility] Address [address] [place] [address] Phone [phone] Care Team Providers Care Knit Goods Mender Name Role Phone Krystin Graves MD Primary Care Provid er Encounter Details Date Type Department Care Team (Late st Contact Info) Description 07/21/2023 Orders Only Outcomes Research Department [address] [place] [address] Heide Galicia CHRA [employer] Research Other*[id number] Allergies Active Allergy Reactions Criticality Noted Date Comments Doxycycline High 07/15/2023 arthralgia Theophylline 04/30/2002 anxiety Theophylline Sodium Glycinate 2004 nervous documented as of this encounter (statuses as of 07/21/2023) Medications Medication Sig Dispensed Refills Start Date [...] bedtime. 90 Tablet 1 04/08/2023 Active FreeStyle [place] Lite w/Device KitIndications:DM type 2, not at [...] for Anxiety. 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 . documented as of this encounter (statuses as of 07/21/2023) Resolved Problems Problem Noted Date Diagnosed Date [...] as of this encounter (statuses as of 07/21/2023) Immunizations Name Administration Dates Next Due COVID-19 mRNA, LNP-s, No Pre serve, 2-Dose Series (General Specific) 04/17/2021,08/22/2020 Covid-19, Mrna, Lnp-s, Pf, B ivalent, 30 Mcg, IM, 12 yrs and above (General Specific) 03/20/2022,09/25/2021 Hepatitis B, 20+ yrs 03/05/2021 Pneumococcal Conjugate Vacci ne, 20-valent ([id number]) 02/20/2023 Pneumococcal Polysaccharide PPV23 (Pneumovax) 03/19/2018 Seasonal [...] Description 07/25/2023 10:30 AM EST Telemedicine Pharmacy, [facility] [address] [facility] [place] [address] Pharmacist1, [facility] [address] [facility] [place] [address] 10/07/2023 1:00 PM EDT Laboratory Laboratory, [address] [phone] [address] 10/14/2023 8:00 AM EDT Telemedicine Gastroenterology, [facility] [address] [address] Viktoriya Vega CRNP [address] [place] [address] 10/14/2023 3:00 PM EDT Office Visit Family [facility], [address] [place] [address] Krystin Graves MD [address] [id number] Scheduled Orders Name Type Priority Associated Diagnoses Orde r Schedule MYCODE SUBSEQUENT ADULT Lab Routine [employer] Other*[id number] Every 6 Months for 2 Occurrences starting 07/21/2023 until 08/09/2024 Health Maintenance Due Date Last Done Comments [...] this encounter Visit Diagnoses Diagnosis [employer] [facility] Other*[id number] documented in this encounter Care Teams Knit Goods Mender Relationship Specialty Start Date End Date Krystin Graves MD [address] [place] [address] PCP - General Family Medicine 10/21/22 documented as of this encounter
--- OUTSIDE RECORDS SUMMARY | 2023-09-09 22:27 | External Medical Summary | Summary of Care ---
Author Name Unknown Organization [facility] Address [address] [place] [address] Phone [phone] Care Team Providers Care Loop Tender Name Role Phone Krystin Graves MD Primary Care Provid er Reason for Referral * Evaluate & Treat - Unlimited Visits (Within 30 days (routine)) - Pending Review Specialty Diagnoses / Procedures Referred By Yaneli hidalgo Referred To Contact Physical Therapy / Physical Medicine And Rehab Diagnoses Hip pain, left Strain of left piriformis muscle, initial encounter Krystin Graves MD [address] [place] [address] Referral ID Status Reason Start Date Expiration Date Visits Requested Visits Authorized [id number] Pending Review Specialty Services Required 07/29/[phone] Question Answer Referral Priority Within 30 days (routine) Where should this appointment be scheduled? [facility] on [address] Reason for Visit * Reason Comments Acute L hip pain, has been present for 3 weeks now, would like to get off the ibuprofen and wants to be able to move Encounter Details Date Type Department Care Team (Late st Contact Info) Description 07/29/2023 3:20 PM EST Office Visit [facility] [address] [facility] [address] Krystin Graves MD [address] [place] [facility] [place] [address] Hip pain, left*; DM type 2 nursing care encounter (HCC); Strain of left piriformis muscle, initial encounter Allergies Active Allergy Reactions Criticality Noted Date Comments Doxycycline High 07/15/2023 arthralgia Theophylline 04/30/2002 anxiety Theophylline Sodium Glycinate 2004 nervous documented as of this encounter (statuses as of 07/29/2023) Medications Medication Sig Dispensed Refills Start Date [...] bedtime. 90 Tablet 1 04/08/2023 Active FreeStyle Morris Lite w/Device KitIndications:DM type 2, not at goal ([facility]) Use to check sugars daily. E 11.9 1 Kit 0 04/16/2023 Active Fiasp FlexTouch 100 UNIT/ML Subcutaneous Solution Pen-injector (Insulin Aspart (w/Niacinamide))Miladis cations:DM type 2, not at goal ([facility]) Inject 5 units under the skin before breakfast, lunch, and dinner. Replaces 70/30 insulin. 15 mL 0 04/24/2023 Active BD Insulin Syringe U-100 1 ML (Insulin Syringes (Disposable))Indicat ions:DM type 2, not at goal ([facility]) Please use with Semglee insulin once daily E11.9 100 Each 3 04/24/2023 Active BD Pen Needle Gertrude U/F 32G X 4 MM (Insulin Pen Needle)Indications:D M type 2, not at goal ([facility]) Use with Fiasp insulin three times daily E11.9 300 Each 3 04/24/2023 Active NovoLIN 70/30 FlexPen Relion (70-30) 100 UNIT/ML Suspension Pen-injector (Insulin NPH Isophane & Regular)Indications: DM type 2, not at goal ([facility]) Inject under the skin 35 units [...] 3 SensorIndications:DM type 2, not at goal ([facility]) Use as directed. 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 . documented as of this encounter (statuses as of 07/29/2023) Resolved Problems Problem Noted Date Diagnosed Date [...] as of this encounter (statuses as of 07/29/2023) Immunizations Name Administration Dates Next Due COVID-19 mRNA, LNP-s, No Pre serve, 2-Dose Series ([employer]) 04/17/2021,08/22/2020 Covid-19, Mrna, Lnp-s, Pf, B ivalent, 30 Mcg, IM, 12 yrs and above ([employer]) 03/20/2022,09/25/2021 Hepatitis B, 20+ yrs 03/05/2021 Pneumococcal Conjugate Vacci ne, 20-valent ([id number]) 02/20/2023 Pneumococcal Polysaccharide PPV23 (Pneumovax) 03/19/2018 Seasonal [...] Sign Reading Time Taken Comments Blood Pressure 166/68 07/29/2023 3:04 PM EST Pulse 91 07/29/2023 3:04 PM EST Temperature 36.3 C (97.3 F) 07/29/2023 3:04 PM ES T Respiratory Rate 16 07/29/2023 3:04 PM EST Oxygen Saturation 99% 07/29/2023 3:04 PM EST Inhaled Oxygen Concentration - - Weight 75.4 kg (166 lb 3.2 oz) 07/29/2023 3:04 P M EST Height - - Body Mass Index 30.4 07/15/2023 3:15 PM EST documented in this encounter Patient Instructions * Patient Instructions* Sade Thorne LPN - 07/29/2023 3:13 PM EST Images from the original note were not included. Diabetic Retinopathy: Evaluating Your Eyes Diabetic retinopathy is a condition that happens when diabetes damages blood vessels in the rear ofthe eye. It can lead to vision loss. To help catch it early, have a complete dilated eye exam at least once a year. During the exam, the eye healthcare provider will review your medical history, examine your eyes, and check your vision. Women who are and have pre-existing type 1 or type 2 diabetes have an increased risk of retinopathy. Women with diabetes should have an eye exam before or in the first trimester. They should continue to be monitored every trimester and for 1 year after delivery, depending on the severity of the retinopathy. The retina is the light-sensitive part of the eye that allows you to see. High blood sugar can damage blood vessels of the retina and cause them to leak or bleed. This damage can lead to abnormal blood vessel growth. This condition is called diabetic retinopathy. You may not have symptoms early in the disease. Later, there may be floaters, blurred vision, or poor night vision. There may also be partial or complete vision loss. Early cases of diabetic retinopathy can be treated by carefully controlling blood sugar, blood pressure, and cholesterol. Surgery or laser treatments may help restore lost vision. Laser surgery can shrink abnormal blood vessels or close ones that are leaking. Medicines injected in the eye can help decrease swelling of the retina. Home care Take all medicines, including insulin or oral diabetic medicine, exactly as prescribed. Follow the diet advised by your healthcare provider. If you have high cholesterol, follow a low-fat, low-cholesterol diet. Monitor blood sugars as advised. Try to achieve your ideal weight. If you smoke, quit smoking. Tobacco use worsens the effect of diabetes on your blood vessels. If you have high blood pressure, consider buying an automatic blood pressure machine. These are available at most pharmacies. Use this to monitor your blood pressure. Report your blood pressure readings to your healthcare provider. Exercise regularly. Follow-up care Follow up with your healthcare provider, or as advised. You must have a complete eye exam at least once a year, more often if needed. Untreated diabetic retinopathy can lead to complete loss of vision. Occupational therapists can help you adapt to any vision loss you have, including learning techniques to safely administer insulin. When to seek medical advice Call your healthcare provider right away if any of these occur. Increasing blurriness or any sudden changes in your vision Sudden flashes of light inside your eye New floaters (small dots or strings that seem to be moving across your field of vision) Eye pain, redness, or discharge from your eyelid New dark spots appearing in your field of vision Halos around lights Dimness of vision Partial or complete loss of vision Women with diabetes should have a complete eye exam before becoming , or as soon as possible when they find out they are . Retinopathy sometimes worsens during . Your eye exam Your eye healthcare provider uses an eye chart and other tools to check your vision. Then he or sheexamines your eyes for signs of disease. You are given eye drops to widen (dilate) your pupils. Youmay have one or more of the following tests: Tonometry to measure fluid pressure inside the eye. Slit lamp exam to allow the healthcare provider to view the structures of your eye. Ultrasound to create an image of the eye using sound waves. Ultrasound may be used if blood is found in the clear gel that fills the eye (vitreous). Ocular coherence tomography (OCT) to create an image of the retina using light waves. This shows ifthere is fluid leaking into certain parts of the eye. It can also measure the thickness of the retina. Fluorescein angiography This test may be done to check the health of the inside lining of the eye (retina). It also checks the tiny blood vessels (capillaries) that carry blood to the retina. During the test: Photographs are taken of the retina. A dye is then injected into the bloodstream through the arm or hand. The dye travels to the capillaries in the eye. More photographs are taken of the retina. The dye causes the capillaries to stand out on the photographs. You may feel brief nausea during the procedure. For a few hours after the test, your skin, eyes, and urine may appear yellow. Talk with your healthcare provider for more information about this test. Date Last Reviewed: 11/22/201519999539-5091 [facility]. [address] [place] [address], [place] [address]. All rights reserved. This information is not intended as a substitute for professional medical care. Always follow your healthcare professional's instructions. documented in this encounter Progress Notes * Krystin Graves MD - 07/29/2023 3:35 PM EST Images from the original note were not included. ASSESSMENT / PLAN: Marcus Avelar is a 47 year old female with PMHx alcoholism / hepatitis / h/o acute pancreatitis and REG / diabetes insulin dependent - here for acute concern Hip pain, left (Primary) - XR HIP UNILAT 2-3 VIEWS INCLUDING AP PELVIS - traMADol HCl 50 MG Oral Tablet (Ultram); Take 1 Tablet by mouth every 6 hours as needed for Pain,Severe. - Cyclobenzaprine HCl 5 MG Oral Tablet (Flexeril); Take 1 Tablet by mouth 3 times a day as needed for Muscle spasms. - PHYSICAL THERAPY REFERRAL OP DM type 2 nursing care encounter (HCC) - TELEMEDICINE DIABETIC EYE Strain of left piriformis muscle, initial encounter - Cyclobenzaprine HCl 5 MG Oral Tablet (Flexeril); Take 1 Tablet by mouth 3 times a day as needed for Muscle spasms. - PHYSICAL THERAPY REFERRAL OP Suspect strain of piriformis muscle Given protracted symptoms and limited benefit with OTC meds, prednisone is relatively contraindicated given very recent uncontrolled diabetic status - recommend short course of tramadol as needed. Cont Tens unit, tylenol, and add PT. Given h/o alcoholism in early remission recommend hip XR to r/o avasc necrosis. If needed, prefers contact by: Ok to leave message on phone: SUBJECTIVE: Nursing Notes: Sade Thorne LPN 07/29/23 1513 Signed The patient has been properly identified by confirmation of name and date of . Chief Complaint Patient presents with Acute L hip pain, has been present for 3 weeks now, would like to get off the ibuprofen and wants to be able to move HPI: Marcus Avelar is a 47 year old female. X 3 weeks worsening left sided hip pain Hurts to go up steps, walk, sit Has tried tylenol and high dose ibuprofen, tens unit - limited benefit Essentially has been hurting since discharged from hospital - and did initially feel polyarthralgicwhile on doxycycline, but all other joints have essentially self resolved Patient Active Problem List Diagnosis Code ADVANCE DIRECTIVE INFORMATION Asthma, moderate persistent J45.40 Panic disorder F41.0 Alcoholism ([facility]) F10.20 Major depressive disorder, recurrent episode, moderate ([facility]) F33.1 DM type 2, not at goal ([facility]) E11.9 Carrier of methicillin resistant Staphylococcus [...] by mouth at bedtime. 90 Tablet 1 FreeStyle Morris Lite w/Device Kit Use to check sugars [...] three times daily E11.9 300 Each 3 NovoLIN 70/30 FlexPen Relion (70-30) 100 UNIT/ML Suspension Pen-injector (Insulin NPH Isophane & Regular) Inject under the skin 35 units at breakfast and 15 units at dinner or as directed 45 mL 3 busPIRone HCl 10 MG Oral Tablet (Buspar) Take 1 Tablet by mouth in the morning and 1 Tablet at noonand 1 Tablet before bedtime. 270 Tablet 1 LORazepam 0.5 MG Oral Tablet (Ativan) Take 1 Tablet by mouth 3 times a day as needed for Anxiety. 15 Tablet 0 FreeStyle Beth 3 Sensor Use as directed. Replace sensors every 14 days. 6 Each 3 Zinc 20 MG Oral Capsule Take by mouth. Melatonin 10 MG Oral Tablet Disintegrating Take by mouth. traMADol HCl 50 MG Oral Tablet (Ultram) Take 1 Tablet by mouth every 6 hours as needed for Pain, Severe. 10 Tablet 0 Cyclobenzaprine HCl 5 MG Oral Tablet (Flexeril) Take 1 Tablet by mouth 3 times a day as needed for Muscle spasms. 30 Tablet 0 Atorvastatin Calcium 20 MG Oral Tablet (Lipitor) Take 1 Tablet by mouth daily. (Patient not taking:Reported on 07/12/2023) 90 Tablet 3 Triamcinolone Acetonide 55 MCG/ACT Nasal Aerosol (Nasacort Allergy 24HR) Administer into nostril asneeded for Rhinitis. No current facility-administered medications for this visit. OBJECTIVE: BP 166/68 | Pulse 91 | Temp 36.3 C (97.3 F) | Resp 16 | Wt 75.4 kg (166 lb 3.2 oz) | SpO2 99% |BMI 30.40 kg/m | BSA 1.82 m Vitals reviewed and is hypertensive / afebrile / and not tachycardic General: No acute distress. Neuro: Alert Pleasant & interactive. Respiratory: Good inspiratory effort, no labored breathing. MSK: point tenderness to belly of piriformis muscle on L side. No tenderness at great troch. +antalgic gait HEENT: Conjunctivae appear clear. No swelling noted face or lips. Skin: No rash visible on exposed skin areas, normal coloration & appears dry. Psych: Normal affect. Fluent speech. Krystin Graves MD [address] [address] Patient Instructions Diabetic Retinopathy: Evaluating Your Eyes Diabetic retinopathy is a condition that happens when diabetes damages blood vessels in the rear ofthe eye. It can lead to vision loss. To help catch it early, have a complete dilated eye exam at least once a year. During the exam, the eye healthcare provider will review your medical history, examine your eyes, and check your vision. Women who are and have pre-existing type 1 or type 2 diabetes have an increased risk of retinopathy. Women with diabetes should have an eye exam before or in the first trimester. They should continue to be monitored every trimester and for 1 year after delivery, depending on the severity of the retinopathy. The retina is the light-sensitive part of the eye that allows you to see. High blood sugar can damage blood vessels of the retina and cause them to leak or bleed. This damage can lead to abnormal blood vessel growth. This condition is called diabetic retinopathy. You may not have symptoms early in the disease. Later, there may be floaters, blurred vision, or poor night vision. There may also be partial or complete vision loss. Early cases of diabetic retinopathy can be treated by carefully controlling blood sugar, blood pressure, and cholesterol. Surgery or laser treatments may help restore lost vision. Laser surgery can shrink abnormal blood vessels or close ones that are leaking. Medicines injected in the eye can help decrease swelling of the retina. Home care Take all medicines, including insulin or oral diabetic medicine, exactly as prescribed. Follow the diet advised by your healthcare provider. If you have high cholesterol, follow a low-fat, low-cholesterol diet. Monitor blood sugars as advised. Try to achieve your ideal weight. If you smoke, quit smoking. Tobacco use worsens the effect of diabetes on your blood vessels. If you have high blood pressure, consider buying an automatic blood pressure machine. These are available at most pharmacies. Use this to monitor your blood pressure. Report your blood pressure readings to your healthcare provider. Exercise regularly. Follow-up care Follow up with your healthcare provider, or as advised. You must have a complete eye exam at least once a year, more often if needed. Untreated diabetic retinopathy can lead to complete loss of vision. Occupational therapists can help you adapt to any vision loss you have, including learning techniques to safely administer insulin. When to seek medical advice Call your healthcare provider right away if any of these occur. Increasing blurriness or any sudden changes in your vision Sudden flashes of light inside your eye New floaters (small dots or strings that seem to be moving across your field of vision) Eye pain, redness, or discharge from your eyelid New dark spots appearing in your field of vision Halos around lights Dimness of vision Partial or complete loss of vision Women with diabetes should have a complete eye exam before becoming , or as soon as possible when they find out they are . Retinopathy sometimes worsens during . Your eye exam Your eye healthcare provider uses an eye chart and other tools to check your vision. Then he or sheexamines your eyes for signs of disease. You are given eye drops to widen (dilate) your pupils. Youmay have one or more of the following tests: Tonometry to measure fluid pressure inside the eye. Slit lamp exam to allow the healthcare provider to view the structures of your eye. Ultrasound to create an image of the eye using sound waves. Ultrasound may be used if blood is found in the clear gel that fills the eye (vitreous). Ocular coherence tomography (OCT) to create an image of the retina using light waves. This shows ifthere is fluid leaking into certain parts of the eye. It can also measure the thickness of the retina. Fluorescein angiography This test may be done to check the health of the inside lining of the eye (retina). It also checks the tiny blood vessels (capillaries) that carry blood to the retina. During the test: Photographs are taken of the retina. A dye is then injected into the bloodstream through the arm or hand. The dye travels to the capillaries in the eye. More photographs are taken of the retina. The dye causes the capillaries to stand out on the photographs. You may feel brief nausea during the procedure. For a few hours after the test, your skin, eyes, and urine may appear yellow. Talk with your healthcare provider for more information about this test. Date Last Reviewed: 11/22/201519994535-0041 [employer]. [address] [place] [id number]. All rights reserved. This information is not intended as a substitute for professional medical care. Always follow your healthcare professional's instructions. * Sade Thorne LPN - 07/29/2023 3:13 PM EST Images from the original note were not included. The importance of having a yearly diabetic eye exam has been discussed with patient. Order and/or Referral placed along with patient instructions. Provider made aware. Sade Thorne LPN The importance of having a yearly diabetic eye exam has been discussed with patient. Order and/or Referral placed along with patient instructions. Provider made aware. Sade Thorne LPN Diabetic Retinopathy: Evaluating Your Eyes Diabetic retinopathy is a condition that happens when diabetes damages blood vessels in the rear ofthe eye. It can lead to vision loss. To help catch it early, have a complete dilated eye exam at least once a year. During the exam, the eye healthcare provider will review your medical history, examine your eyes, and check your vision. Women who are and have pre-existing type 1 or type 2 diabetes have an increased risk of retinopathy. Women with diabetes should have an eye exam before or in the first trimester. They should continue to be monitored every trimester and for 1 year after delivery, depending on the severity of the retinopathy. The retina is the light-sensitive part of the eye that allows you to see. High blood sugar can damage blood vessels of the retina and cause them to leak or bleed. This damage can lead to abnormal blood vessel growth. This condition is called diabetic retinopathy. You may not have symptoms early in the disease. Later, there may be floaters, blurred vision, or poor night vision. There may also be partial or complete vision loss. Early cases of diabetic retinopathy can be treated by carefully controlling blood sugar, blood pressure, and cholesterol. Surgery or laser treatments may help restore lost vision. Laser surgery can shrink abnormal blood vessels or close ones that are leaking. Medicines injected in the eye can help decrease swelling of the retina. Home care Take all medicines, including insulin or oral diabetic medicine, exactly as prescribed. Follow the diet advised by your healthcare provider. If you have high cholesterol, follow a low-fat, low-cholesterol diet. Monitor blood sugars as advised. Try to achieve your ideal weight. If you smoke, quit smoking. Tobacco use worsens the effect of diabetes on your blood vessels. If you have high blood pressure, consider buying an automatic blood pressure machine. These are available at most pharmacies. Use this to monitor your blood pressure. Report your blood pressure readings to your healthcare provider. Exercise regularly. Follow-up care Follow up with your healthcare provider, or as advised. You must have a complete eye exam at least once a year, more often if needed. Untreated diabetic retinopathy can lead to complete loss of vision. Occupational therapists can help you adapt to any vision loss you have, including learning techniques to safely administer insulin. When to seek medical advice Call your healthcare provider right away if any of these occur. Increasing blurriness or any sudden changes in your vision Sudden flashes of light inside your eye New floaters (small dots or strings that seem to be moving across your field of vision) Eye pain, redness, or discharge from your eyelid New dark spots appearing in your field of vision Halos around lights Dimness of vision Partial or complete loss of vision Women with diabetes should have a complete eye exam before becoming , or as soon as possible when they find out they are . Retinopathy sometimes worsens during . Your eye exam Your eye healthcare provider uses an eye chart and other tools to check your vision. Then he or sheexamines your eyes for signs of disease. You are given eye drops to widen (dilate) your pupils. Youmay have one or more of the following tests: Tonometry to measure fluid pressure inside the eye. Slit lamp exam to allow the healthcare provider to view the structures of your eye. Ultrasound to create an image of the eye using sound waves. Ultrasound may be used if blood is found in the clear gel that fills the eye (vitreous). Ocular coherence tomography (OCT) to create an image of the retina using light waves. This shows ifthere is fluid leaking into certain parts of the eye. It can also measure the thickness of the retina. Fluorescein angiography This test may be done to check the health of the inside lining of the eye (retina). It also checks the tiny blood vessels (capillaries) that carry blood to the retina. During the test: Photographs are taken of the retina. A dye is then injected into the bloodstream through the arm or hand. The dye travels to the capillaries in the eye. More photographs are taken of the retina. The dye causes the capillaries to stand out on the photographs. You may feel brief nausea during the procedure. For a few hours after the test, your skin, eyes, and urine may appear yellow. Talk with your healthcare provider for more information about this test. Date Last Reviewed: 11/22/201519996427-9473 [facility]. [address] [place] [address]. All rights reserved. This information is not intended as a substitute for professional medical care. Always follow your healthcare professional's instructions. documented in this encounter Nursing Notes * Sade Thorne LPN - 07/29/2023 3:11 PM EST The patient has been properly identified by confirmation of name and date of . Chief Complaint Patient presents with Acute L hip pain, has been present for 3 weeks now, would like to get off the ibuprofen and wants to be able to move documented in this encounter Plan of Treatment Upcoming Encounters Date Type Department Care Team (Late st Contact Info) Description 08/14/2023 10:30 AM EST Telemedicine Pharmacy, [facility] [address] [place] [address] Pharmacist1, [facility] [address] [place] [address] 10/07/2023 1:00 PM EDT Laboratory Laboratory, [address] [phone] [facility] [address] [facility] [place] [address] 10/14/2023 8:00 AM EDT Telemedicine Gastroenterology, [facility] [address] [place] [address] Viktoriya Vega CRNP [address] [place] [address] 10/14/2023 3:00 PM EDT Office Visit Family [facility] [place] [address] [place] [address] Krystin Graves MD [address] [place] [address] Pending Results Name Type Priority Associated Diagnoses Date /Time XR HIP UNILAT 2-3 VIEWS INCLUDING AP PELVIS Medical Imaging Routine Hip pain, left 07/29/2023 4:20 PM EST Scheduled Referrals Name Type Priority Associated Diagnoses Orde r Schedule PHYSICAL THERAPY REFERRAL OP Referral Within 30 days (routine) Hip pain, left Strain of left piriformis muscle, initial encounter Ordered: 07/29/2023 Health Maintenance Due Date Last Done Comments [...] Procedure Name Priority Date/Time Associated Diagnosis Comments TELEMEDICINE DIABETIC EYE Routine 07/29/2023 DM type 2 nursing care encounter (HCC) documented in this encounter Results * TELEMEDICINE DIABETIC EYE (07/29/2023) 07/29/2023 Krystin Graves MD DIGITAL PHOT OGRAPHY documented in this encounter Visit Diagnoses Diagnosis Hip pain, left- Primary Pain in joint, pelvic region and thigh DM type 2 nursing care encounter (HCC) Type II or unspecified type diabetes mellitus without mention of complication, not stated as uncontrolled Strain of left piriformis muscle, initial encounter documented in this encounter Care Teams Loop Tender Relationship Specialty Start Date End Date Krystin Graves MD [address] [place] [address] PCP - General Family Medicine 10/21/22 documented as of this encounter"
--- OUTSIDE RECORDS SUMMARY | 2023-09-09 22:27 | External Medical Summary | Summary of Care ---
Author Name Unknown Organization [facility] Address [address] [place] [address] Phone [phone] Care Team Providers Care Desktop Operator Name Role Phone Sugar Meyer MD Primary Care Provid er Reason for Visit * Reason Onset Date Comments Medication Refill 07/18/2023 Encounter Details Date Type Department Care Team (Late st Contact Info) Description 07/18/2023 Refill [facility] [address] [place] [address] Sugar Meyer MD [address] [place] [address] Panic attack Allergies Active Allergy Reactions Criticality Noted Date Comments Doxycycline High 07/15/2023 arthralgia Theophylline 04/30/2002 anxiety Theophylline Sodium Glycinate 2004 nervous documented as of this encounter (statuses as of 07/20/2023) Medications Medication Sig Dispensed Refills Start Date End Date Status Multiple Vitamins-Minerals (MULTIVITAMIN ADULT) TABS Take by mouth. 0 Active Fluticasone-Salmet agatha 250-50 MCG/ACT Inhalation Aerosol Powder Breath Activated (Advair Diskus)Indications :Moderate persistent asthma without complication Inhale 1 Puff by mouth in the morning and 1 Puff before bedtime. 3 Each 3 12/20/2022 Active Glycopyrrolate 1 MG Oral Tablet (Francisoc)Indicatio ns:Focal hyperhidrosis Take 1 Tablet by mouth [...] on 07/12/2023 Mirtazapine 45 MG Oral Tablet (Remeron)Indicatio ns:Panic attack Take 1 Tablet by mouth at bedtime. 90 Tablet 1 04/08/2023 Active FreeStyle Clinton Lite w/Device KitIndications:DM type 2, not at [...] UNIT/ML Suspension Pen-injector (Insulin NPH Isophane & Regular)Indication s:DM type 2, not at goal (HCC) [...] 4 Active LORazepam 0.5 MG Oral Tablet (Ativan)Indication s:Panic attack Take 1 Tablet by mouth 3 times a day as needed for Anxiety. 15 Tablet 0 07/20/2023 Active LORazepam 0.5 MG Oral Tablet (Ativan)Indication s:Panic attack Take 1 Tablet by mouth 3 times a day as needed for Anxiety. 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 . documented as of this encounter (statuses as of 07/20/2023) Resolved Problems Problem Noted Date Diagnosed Date [...] as of this encounter (statuses as of 07/20/2023) Immunizations Name Administration Dates Next Due COVID-19 mRNA, LNP-s, No Pre serve, 2-Dose Series ([employer]) 04/17/2021,08/22/2020 Covid-19, Mrna, Lnp-s, Pf, B ivalent, 30 Mcg, IM, 12 yrs and above ([employer]) 03/20/2022,09/25/2021 Hepatitis B, 20+ yrs 03/05/2021 Pneumococcal Conjugate Vacci ne, 20-valent ([id number]) 02/20/2023 Pneumococcal Polysaccharide PPV23 (Pneumovax) 03/19/2018 Seasonal [...] Telephone Encounter - Sugar Meyer MD - 07/20/2023 3:07 PM EST Signed Prescriptions: Disp Refills LORazepam 0.5 MG Oral Tablet (Ativan) 15 Tab*0 Sig: Take 1 Tablet by mouth 3 times a day as needed for Anxiety. Authorizing Provider: SUGAR MEYER * Telephone Encounter - Mynor Armstrong, [facility] - 07/18/2023 12:31 PM EST Pending Prescriptions: Disp Refills LORazepam 0.5 MG Oral Tablet (Ativan) 15 Tab*0 Sig: Take 1 Tablet by mouth 3 times a day as needed for Anxiety. * Telephone Encounter - Mynor Armstrong, [facility] - 07/18/2023 12:31 PM EST I have reviewed the patients controlled substance dispensing history in the Prescription Drug Monitoring Program in compliance with the [facility] regulations before prescribing a controlled substance. PDMP checked on 07/18/2023. Pending Prescriptions: Disp Refills LORazepam 0.5 MG Oral Tablet (Ativan) 15 Tab*0 Sig: Take 1 Tablet by mouth 3 times a day as needed for Anxiety. Last Visit: 07/15/2023 (in office), 04/08/2023 (telemedicine) Next Visit: 10/14/2023 Date medication was last filled: 06/10/23 Date medication is due for refill: 06/14/23 Pharmacy: [id number] Is this request for a controlled substance? [...] upon request. Please approve if appropriate. Thanks, Mynor Armstrong, PharmD Clinical Pharmacist [facility] ([facility]) (formerly Telepharmacy) [phone] 07/18/2023, 12:31 PM documented in this encounter Plan of Treatment Upcoming Encounters Date Type Department Care Team (Late st Contact Info) Description 07/25/2023 10:30 AM EST Telemedicine Pharmacy, [facility] [address] [facility] [place] [address] Pharmacist1, [facility] [address] [facility] [place] [address] 10/07/2023 1:00 PM EDT Laboratory Laboratory, [address] [place] [phone] [facility] [address], [place] [id number] 10/14/2023 8:00 AM EDT Telemedicine Gastroenterology, [facility] [address] [facility] [address] Viktoriya Vega CRNP [address] [facility] [place] [address] 10/14/2023 3:00 PM EDT Office Visit Family [facility] [place] [address] [place] [phone] Sugar Meyer MD [address] [facility] [place] [id number] Health Maintenance Due Date Last Done Comments Depression Screening 08/03/2020 08/03/2019, 11/01/2014 (Discussed) Cologuard 11/18/2020 Colonoscopy 11/18/2020 Colorectal Cancer Screening 11/18/2020 Fecal Occult Blood Test 11/18/2020 Sigmoidoscopy 11/18/2020 Hepatitis B (2 of 3 - 19+ 3-dose series) 04/02/2021 03/05/2021 COVID-19 Vaccine (5 - 2022- season) 2023 03/20/2022, 09/25/2021, 04/17/2021, [...] agoraphobia documented in this encounter Care Teams Desktop Operator Relationship Specialty Start Date End Date Sugar Meyer MD [address] [place] [facility] [place] [address] PCP - General Family Medicine 10/21/22 documented as of this encounter
--- OUTSIDE RECORDS SUMMARY | 2023-09-09 22:27 | External Medical Summary ---
Author Name Unknown Address Unknown Organization [id number]:LABORATORY [facility] [place] [address] [place] [address] Laboratory Report Ordering Provider Test Date Status MITCH WOOTEN 07/24/2023 13:47:44 Final Observation Date Value Abnormality Reference (Units ) Status Uric Acid 07/24/2023 13:47:44 4.6 2.4-5.7 (m g/dL) Final Performing Location LABORATORY [facility] - [address] [place] [address]
--- OUTSIDE RECORDS SUMMARY | 2023-09-09 22:28 | External Medical Summary ---
Author Name Unknown Address Unknown Organization [id number]:LABORATORY [facility] [place] [address] - [address] [place] [address] Laboratory Report Ordering Provider Test Date Status MEREDITH KAUFMAN 07/12/2023 10:58:05 Final Observation Date Value Abnormality Reference (Units ) Status Nucleated erythrocytes/100 leukocytes [Ratio] in Blood by Automated count 07/12/2023 10:58:05 Final Performing Location LABORATORY [facility] [place] 57[address] 0 - [address] [place] [address]
--- OUTSIDE RECORDS SUMMARY | 2023-09-09 22:28 | External Medical Summary ---
Author Name Unknown Address Unknown Organization [id number]:LABORATORY [facility] [place] - [address] [facility] [place] [address] Laboratory Report Ordering Provider Test Date Status ALTON GROVE 07/12/2023 10:58:05 Final Observation Date Value Abnormality Reference (Units ) Status MYCODE SPECIMEN-SST 07/12/2023 10:58:05 Freezing of extracted DNA, whole blood and/or serum. Final Performing Location LAB[facility]ATORY [facility] [address] [facility] [address]
--- OUTSIDE RECORDS SUMMARY | 2023-09-09 22:28 | External Medical Summary | Summary of Care ---
Author Name Unknown Organization [facility] Address [address] [place] [address] Phone [phone] Care Team Providers Care Diesel Mechanic Helper Name Role Phone Krystin Graves MD Primary Care Provid er Reason for Visit * Reason Comments Outpatient Testing Encounter Details Date Type Department Care Team (Late st Contact Info) Description 07/12/2023 10:50 AM EST Laboratory Laboratory, [facility] [address] [place] [address] [facility] [address] [place] [address] [employer] Other*[id number]; Diffuse arthralgia; Cellulitis of right wrist; DM type 2, not at goal ([facility]); Abnormal LFTs; Alcoholism ([facility]) Allergies Active Allergy Reactions Criticality Noted Date Comments Theophylline 04/30/2002 anxiety Theophylline Sodium Glycinate 2004 nervous documented as of this encounter (statuses as of 07/12/2023) Medications Medication Sig Dispensed Refills Start Date [...] bedtime. 90 Tablet 1 04/08/2023 Active FreeStyle Kinder Lite w/Device KitIndications:DM type 2, not at goal ([facility]) Use to check sugars daily. E 11.9 1 Kit 0 04/16/2023 Active Fiasp FlexTouch 100 UNIT/ML Subcutaneous Solution Pen-injector (Insulin Aspart (w/Niacinamide))Ind ications:DM type 2, not at goal ([facility]) Inject 5 units under the skin before [...] for Anxiety. 15 Tablet 0 06/10/2023 Active Doxycycline Hyclate 100 MG Oral Capsule Take 1 Capsule by mouth in the morning and 1 Capsule before bedtime. 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 . documented as of this encounter (statuses as of 07/12/2023) Resolved Problems Problem Noted Date Diagnosed Date [...] as of this encounter (statuses as of 07/12/2023) Immunizations Name Administration Dates Next Due COVID-19 mRNA, LNP-s, No Pre serve, 2-Dose Series ([employer]) 04/17/2021,08/22/2020 Covid-19, Mrna, Lnp-s, Pf, B ivalent, 30 Mcg, IM, 12 yrs and above ([employer]) 03/20/2022,09/25/2021 Hepatitis B, 20+ yrs 03/05/2021 Pneumococcal Conjugate Vacci ne, 20-valent ([id number]) 02/20/2023 Pneumococcal Polysaccharide PPV23 (Pneumovax) 03/19/2018 Seasonal [...] Description 07/15/2023 3:00 PM EST Office Visit [facility] [address] [facility] [place] [phone] Krystin Graves MD [address] [facility] [address] 07/25/2023 10:30 AM EST Telemedicine Pharmacy, [facility] [employer] [address] [facility] [place] [address] Pharmacist1, [facility] [address] [facility] [place] [address] Pending Results Name Type Priority Associated Diagnoses Date /Time MYCODE INITIAL ADULT Lab Routine [employer] Other*[id number] 07/12/2023 10:58 AM EST ERYTHROCYTE SEDIMENTATION RATE (ESR) Lab Routine Diffuse arthralgia 07/12/2023 10:58 AM EST CRP (INFLAMMATORY MARKER) Lab Routine Diffuse arthralgia 07/12/2023 10:58 AM EST CBC WITH WBC DIFFERENTIAL Lab Routine Diffuse arthralgia Cellulitis of right wrist 07/12/2023 10:58 AM EST BASIC METABOLIC PANEL Lab Routine Diffuse arthralgia DM type 2, not at goal (HCC) 07/12/2023 10:58 AM EST HEPATIC FUNCTION PANEL Lab Routine Abnormal LFTs Alcoholism (HCC) 07/12/2023 10:58 AM EST MYCODE INITIAL ADULT-PINK Lab Routine [employer] Other*[id number] 07/12/2023 10:58 AM EST MYCODE SST1 Lab Routine [employer] Other*[id number] 07/12/2023 10:58 AM EST MYCODE SST2 Lab Routine [employer] Other*[id number] 07/12/2023 10:58 AM EST CBC Lab Routine Diffuse arthralgia Cellulitis of right wrist 07/12/2023 10:58 AM EST DIFFERENTIAL, AUTOMATED Lab Routine Diffuse arthralgia Cellulitis of right wrist 07/12/2023 10:58 AM EST Health Maintenance Due Date Last [...] this encounter Visit Diagnoses Diagnosis [employer] Other*[id number] Diffuse arthralgia Cellulitis of right wrist DM type 2, not at goal (HCC) Type II or unspecified type diabetes mellitus without mention of complication, not stated as uncontrolled Abnormal LFTs Other abnormal blood chemistry Alcoholism (HCC) Other and unspecified alcohol dependence, unspecified drinking behavior documented in this encounter Care Teams Diesel Mechanic Helper Relationship Specialty Start Date End Date Krystin Graves MD [address] [place] [address] [address] PCP - General Family Medicine 10/21/22 documented as of this encounter
--- OUTSIDE RECORDS SUMMARY | 2023-09-09 22:28 | External Medical Summary | Summary of Care ---
Author Name Unknown Organization [facility] Address [address] [place] [address] Phone [phone] Care Team Providers Care Spearer Name Role Phone Krystin Graves MD Primary Care Provid er Reason for Visit * Reason Onset Date Comments Hospital Follow-Up 07/08/2023 Encounter Details Date Type Department Care Team (Late st Contact Info) Description 07/08/2023 Telephone General Internal Medicine [facility] [address] [facility] [place] [address] Krystin Graves MD [address] [place] [address] Hospital Follow-Up Allergies Active Allergy Reactions Criticality Noted Date Comments Theophylline 04/30/2002 anxiety Theophylline Sodium Glycinate 2004 nervous documented as of this encounter (statuses as of 07/08/2023) Medications Medication Sig Dispensed Refills Start Date [...] bedtime. 90 Tablet 1 04/08/2023 Active FreeStyle Wells Lite w/Device KitIndications:DM type 2, not at goal (HCC) Use to check sugars daily. E 11.9 1 Kit 0 04/16/2023 Active Fiasp FlexTouch 100 UNIT/ML Subcutaneous Solution Pen-injector (Insulin Aspart (w/Niacinamide))Ind ications:DM type 2, not at goal ([facility]) Inject 5 units under the skin before breakfast, lunch, and dinner. Replaces 70/30 insulin. 15 mL 0 04/24/2023 Active Insulin Glargine-yfgn 100 UNIT/ML Subcutaneous Solution (Semglee (yfgn))Indications: DM type 2, not at goal ([facility]) Inject 35 units under the skin once daily. Replaces 70/30 insulin. 40 mL 0 04/24/2023 Active BD Insulin Syringe U-100 1 ML (Insulin Syringes (Disposable))Indica tions:DM type 2, not at goal ([facility]) Please use with Semglee insulin once daily E11.9 100 Each 3 04/24/2023 Active BD Pen Needle Gertrude U/F 32G X 4 MM (Insulin Pen Needle)Indications: DM type 2, not at goal ([facility]) Use with Fiasp insulin three times daily E11.9 300 Each 3 04/24/2023 Active LORazepam 0.5 MG Oral Tablet (Ativan)Indications :Panic attack Take 1 Tablet by mouth 3 times a day as needed for Anxiety. 15 Tablet 0 06/10/2023 Active Doxycycline Hyclate 100 MG Oral Capsule Take 1 Capsule by mouth in the morning and 1 Capsule before bedtime. 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 . documented as of this encounter (statuses as of 07/08/2023) Resolved Problems Problem Noted Date Diagnosed Date [...] as of this encounter (statuses as of 07/08/2023) Immunizations Name Administration Dates Next Due COVID-19 mRNA, LNP-s, No Pre serve, 2-Dose Series ([employer]) 04/17/2021,08/22/2020 Covid-19, Mrna, Lnp-s, Pf, B ivalent, 30 Mcg, IM, 12 yrs and above ([employer]) 03/20/2022,09/25/2021 Hepatitis B, 20+ yrs 03/05/2021 Pneumococcal Conjugate Vacci ne, 20-valent ([id number]) 02/20/2023 Pneumococcal Polysaccharide PPV23 (Pneumovax) 03/19/2018 Seasonal [...] Notes * Telephone Encounter - Vel Mccormick [facility] - 07/08/2023 4:00 PM EST Images from the original note were not included. Patient Phone Numbers Patient discharged from [facility] 07/04/23 after treatment for DKA. Patient was having difficulty with the medication changes in May, having anxiety using the FreeStyle Beth. Patient was discharged on Novolin 70/30. She missed her appt on 07/03 as she was in [facility]. Please touch base with the patient. Thank you Discharge Summary Date of Service July 04, 2023 Notes For Next Care Provider Pt required ICU stay for DKA. Pt noted noncompliance with new basal/bolus diabetic regimen due to anxiety and too many steps withregimen. Switched back to more comfortable Novolin BID regimen (per pt request) to help with compliance, this time 35U in AM for daytime highs noted and 15U in PM for overnight lows (previously on 28U BID). Please ensure close MTM follow up and assist with measures to help with compliance. Please ensure follow up with hematology for pancytopenia noted, further evaluation with peripheral smear Please ensure follow up with GI for US liver findings of enlarged pancreatic duct (progressing [id number]) and cirrhosis of the liver Please continue to monitor liver enzymes and electrolytes after discharge Medication Changes From Visit Doxycycline 100mg BID x 9 days for IV site infiltration Loperamide for diarrhea Novolin 70/30 U100 Insulin 35U with breakfast and 15U with dinner Ibuprofen 800mg TID PRN for arm pain, 10 tabs Severe DKA DMII Pt with Hx of DMII BSG 424 on admission, Anion gap of 40, bicarb 4 ABG on admission: pH less than 7, pCO2 11, O2 142, bicarb undetectable Required ICU admission, treated with insulin drip, IV fluids per protocol, electrolytes supplemented as needed Gap closed and glucose <200, pt was downgraded She was then treated with SQ insulin per protocol Reportedly pt had changes made to her home medications by her MTM providers (started on basal/bolusregimen), question of noncompliance. -on 07/02 pt noted that the new changes to her medications (basal/bolus regimen) made her anxious, and so she was not compliant -Notes that when she was on Novolin 70/30 28U BID, she was more comfortable with administering herself -However, she was switched to Semglee 35U daily with Fiasp 5U with breakfast, lunch and dinner due to her glucose levels not being controlled by the above regimen -Hx of pancreatitis so GLP agonists not an option, jardiance caused vaginitis for her and unable totolerate metformin at even very low doses. -Pt would like to go back to the Novolin 70/30 on discharge as she states she is more comfortable with this. The new basal/bolus regimen made her anxious and noncompliant -Discharged with Novolin 70/30 U100 Insulin 35U with breakfast and 15U with dinner outreach educator consulted- appreciate recs Glucose levels are now better controlled PCP and MTM follow up after discharge. Pt compliance with regimen encouraged. You were admitted with severe diabetic ketoacidosis requiring treatment in the ICU. Your symptoms got better and you are being discharged home. You indicated that you preferred to go back to the previous medication you used for your diabetes called Novolin. As such we are discharging you home on the regimen of taking 35U in the morning with breakfast (as you indicated you would have high glucose levels during the day) and 15U to be taken with dinner at night as you indicated you would have overnight low readings. Please STOP using the Semglee and Fiasp insulin you were previously prescribed. Please keep close followup with your primary care provider and MTM pharmacist after discharge for further adjustments to your medications as needed. Vel Byrne RPh, CACP, CDE Clinical Pharmacist [facility] 07/08/2023, 4:07 PM * Telephone Encounter - Leighton Jeronimo RN - 07/08/2023 3:24 PM EST Patient discharged from [facility] 07/04/23 after treatment for DKA. Patient was having difficulty with the medication changes in May, having anxiety using the FreeStyle Beth. Patient was discharged on Novolin 70/30. She missed her appt on 07/03 as she was in [facility]. Please touch base with the patient. Thank you documented in this encounter Plan of Treatment Upcoming Encounters Date Type Department Care Team (Late st Contact Info) Description 07/09/2023 10:30 AM EST Telemedicine Pharmacy, [facility] [place] [address] [place], [place] [address] Pharmacist1, [facility] [address] [place], [place] [address] 07/11/2023 10:00 AM EST Office Visit [facility], [place] [address] [facility], [place] [address] Krystin Graves MD [address] [facility] [address] 07/14/2023 1:40 PM EST Office Visit [facility], [place] [address] [facility], [place] [address] Krystin Graves MD [address] [facility] [address] Health Maintenance Due Date Last Done [...] filedocumented as of this encounter Care Teams Spearer Relationship Specialty Start Date End Date Krystin Graves MD [address] [place] [address] PCP - General Family Medicine 10/21/22 documented as of this encounter
--- OUTSIDE RECORDS SUMMARY | 2023-09-09 22:28 | External Medical Summary | Summary of Care ---
Author Name Unknown Organization [facility] Address [address] [place] [address] Phone [phone] Care Team Providers Care Lemon Picker Name Role Phone Krystin Graves MD Primary Care Provid er Reason for Visit * Reason Onset Date Comments Hospital Follow-Up 07/07/2023 [facility] 07/04 Encounter Details Date Type Department Care Team (Late st Contact Info) Description 07/07/2023 Telephone Ancillary Department, [address] [address] Debora Quick, RN Hospital Follow-Up ([facility] 07/04) Allergies Active Allergy Reactions Criticality Noted Date Comments Theophylline 04/30/2002 anxiety Theophylline Sodium Glycinate 2004 nervous documented as of this encounter (statuses as of 07/09/2023) Medications Medication Sig Dispensed Refills Start Date [...] bedtime. 90 Tablet 1 04/08/2023 Active FreeStyle [place] Lite w/Device KitIndications:DM type 2, not at goal ([facility]) Use to check sugars daily. E 11.9 1 Kit 0 04/16/2023 Active Fiasp FlexTouch 100 UNIT/ML Subcutaneous Solution Pen-injector (Insulin Aspart (w/Niacinamide))Ind ications:DM type 2, not at goal (HCC) Inject 5 units under the skin before breakfast, lunch, and dinner. Replaces 70/30 insulin. 15 mL 0 04/24/2023 Active Insulin Glargine-yfgn 100 UNIT/ML Subcutaneous Solution (Semglee (yfgn))Indications: DM type 2, not at goal ([facility]) Inject 35 units under the skin once daily. Replaces 70/30 insulin. 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 . documented as of this encounter (statuses as of 07/09/2023) Resolved Problems Problem Noted Date Diagnosed Date [...] as of this encounter (statuses as of 07/09/2023) Immunizations Name Administration Dates Next Due COVID-19 mRNA, LNP-s, No Pre serve, 2-Dose Series (ZeeWhere) 04/17/2021,08/22/2020 Covid-19, Mrna, Lnp-s, Pf, B ivalent, 30 Mcg, IM, 12 yrs and above ([facility]eeWhere) 03/20/2022,09/25/2021 Hepatitis B, 20+ yrs 03/05/2021 Pneumococcal Conjugate Vacci ne, 20-valent ([id number]) 02/20/2023 Pneumococcal Polysaccharide PPV23 (Pneumovax) 03/19/2018 Seasonal [...] encounter Miscellaneous Notes * Telephone Encounter - Debora Quick RN - 07/08/2023 1:04 PM EST Transitions of Care Note Reason for Referral:Recent Admission Phone visit for follow up: ALEX Admitted to: [facility], Date: 06/30 Discharged to: home, Date: 07/04 Diagnosis driving hospitalization: DKA Another message left for pt. * Telephone Encounter - Debora Quick RN - 07/07/2023 12:42 PM EST Transitions of Care Note Reason for Referral:Recent Admission Phone visit for follow up: ALEX Admitted to: [facility], Date: 06/30 Discharged to: home, Date: 07/04 Diagnosis driving hospitalization: DKA Message left on voicemail. If she reaches the call center she can be transferred to [place] at [phone]. Thank you. documented in this encounter Plan of Treatment Upcoming Encounters Date Type Department Care Team (Late st Contact Info) Description 07/09/2023 10:30 AM EST Telemedicine Pharmacy, [facility] [address] [facility] [place] [address] Pharmacist1, [facility] [address] [facility] [place] [address] DM type 2, not at goal (HCC)* 07/11/2023 10:00 AM EST [facility] [place] [address] [phone] Krystin Graves MD [address] [facility] [address] 07/14/2023 1:40 PM EST Office Visit [facility] [address] [phone] Krystin Graves MD [address] [facility] [address] Health Maintenance Due Date Last Done Comments [...] filedocumented as of this encounter Care Teams Lemon Picker Relationship Specialty Start Date End Date Krystin Graves MD [address] [place] [address] PCP - General Family Medicine 10/21/22 documented as of this encounter
--- OUTSIDE RECORDS SUMMARY | 2023-09-09 22:28 | External Medical Summary ---
Author Name Unknown Address Unknown Organization K01:LABORATORY [facility] - [address] [place] [address] [place] [address] Laboratory Report Ordering Provider Test Date Status MEREDITH KAUFMAN 07/12/2023 10:58:05 Final Observation Date Value Abnormality Reference (Units ) Status CRP, low-sensitivity 07/12/2023 10:58:05 58 Above high normal <=5 (mg/L) Final Performing Location [facility] [address] [facility] [address]
--- OUTSIDE RECORDS SUMMARY | 2023-09-09 22:28 | External Medical Summary | Summary of Care ---
Author Name Unknown Organization [facility] Address [address] [place] [address] Phone [phone] Care Team Providers Care Internship Coordinator Name Role Phone Krystin Graves MD Primary Care Provid er Reason for Visit * Reason Comments Acute The pt stated she acevedo s had excruciating joint pain since she got out of the hospital. She also had an infected IV site on her R hand that she would like to follow up on. Encounter Details Date Type Department Care Team (Late st Contact Info) Description 07/12/2023 10:00 AM EST Office Visit Family Practice [facility] [address] [place] [address] Valeria Parra MD [address] [place] [address] Diffuse arthralgia*; Cellulitis of right wrist; DM type 2, not at goal ([facility]); Abnormal LFTs; Alcoholism ([facility]) Allergies Active Allergy Reactions Criticality Noted Date [...] pills 3 times a day. 0 3 Active Fluticasone-Salmet agatha 250-50 MCG/ACT Inhalation Aerosol Powder Breath Activated (Advair Diskus)Indications :Moderate persistent asthma without complication Inhale 1 Puff by mouth in the morning and 1 Puff before bedtime. 3 Each 3 3 Active Glycopyrrolate 1 MG Oral Tablet (Robinul)Indicatio [...] bedtime. 90 Tablet 1 3 Active FreeStyle [place] Lite w/Device KitIndications:DM type 2, not at [...] 3 Active LORazepam 0.5 MG Oral Tablet (Ativan)Indication s:Panic attack Take 1 Tablet by mouth 3 times a day as needed for Anxiety. 15 Tablet 0 3 Active Doxycycline Hyclate 100 MG Oral Capsule Take 1 Capsule by mouth in the morning and 1 Capsule before bedtime. 0 4 07/13/19 24 Active NovoLIN 70/30 FlexPen Relion (70-30) 100 [...] Rhinitis. 0 Active Cephalexin 250 MG Oral CapsuleIndications :Cellulitis of right wrist Take 1 Capsule by mouth in the morning and 1 Capsule at noon and 1 Capsule before bedtime. Do all this for 7 days. 21 Capsule 0 4 07/19/19 24 Active Multivitamin Adult Oral Tablet 1 Tab. 0 0 07/12/19 24 Discontinued Fluticasone Propionate 50 MCG/ACT Nasal SuspensionIndicati ons:Suspected COVID-19 virus infection,Viral URI Administer 2 Sprays into each nostril daily as needed for Allergies, Congestion or Other (Eustacean tube dysfunction). 1 g 1 1 07/12/19 24 Discontinued Naltrexone HCl 50 MG Oral Tablet (Revia) Take 1 Tablet by mouth daily. 90 Tablet 3 3 07/12/19 24 Discontinued Nirmatrelvir&Riton avir 150/100 10 x 150 MG & 10 x 100MG Oral Tablet Therapy Pack (Paxlovid (150/100))Indicati ons:Acute bronchitis due to COVID-19 virus Take 1 pink tablet of Nirmatrelvir and 1 white tablet of Ritonavir two times a day by mouth. 20 Tablet 0 3 07/12/19 24 Discontinued Benzonatate 100 MG Oral Capsule (Tessalandrew Frias)Indications :COVID-19 virus infection Take 1 Capsule by mouth 3 times a day as needed for Cough. Do not cut, crush, or chew. 50 Capsule 0 3 07/12/19 24 Discontinued documented as of this encounter [...] mRNA, LNP-s, No Pre serve, 2-Dose Series (Sentiment) 04/17/2021,08/22/2020 Covid-19, Mrna, Lnp-s, Pf, B ivalent, 30 Mcg, IM, 12 yrs and above (Sentiment) 03/20/2022,09/25/2021 Hepatitis B, 20+ yrs 03/05/2021 Pneumococcal Conjugate Vacci ne, 20-valent ([id number]) 02/20/2023 Pneumococcal Polysaccharide PPV23 (Pneumovax) 03/19/2018 Seasonal [...] Sign Reading Time Taken Comments Blood Pressure 118/66 07/12/2023 10:05 AM EST Pulse 95 07/12/2023 10:05 AM EST Temperature - - Respiratory Rate - - Oxygen Saturation 95% 07/12/2023 10: 05 AM EST Inhaled Oxygen Concentration - - Weight 75.2 kg (165 lb 12.8 oz) 024 10:05 AM EST Height - - Body Mass Index 30.33 01/03/2023 2:45 PM EDT documented in this encounter Progress Notes * Valeria Parra MD - 07/12/2023 10:14 AM EST SUBJECTIVE: Marcus Avelar is a 47 year old female. Chief Complaint Patient presents with Acute The pt stated she has had excruciating joint pain since she got out of the hospital. She also had an infected IV site on her R hand that she would like to follow up on. HPI: Patient is being seen for acute appointment today and will follow-up with PCP on Friday for hospital follow-up. Had an IV in the hospital which had infiltrated on 07/03/2023, was discharged on doxycycline 100 mg twice a day for 9 days on 07/04/2023 as well as ibuprofen 800 mg three times daily p.r.n. stayed the swelling has decreased but still has persistent redness, last weekend when she removed the Band-Aid there was some yellowish discharge. She has currently not taking the antibiotic as she feels it has caused her to have some joint pains. Admits to 1 week onset of pain in the bottom of both her hips, knees, ankles, shoulders and wrists without any swelling, she did have swelling of the left hand last week but also had an IV in the hospital in in that hand. No fever or chills. States has to walk very slowly, has been taking ibuprofen [id number] 2 tablets every 4-6 hours for pain. No falls or injuries Is following up with [facility]TM for diabetes management with recent admission for DKA, has appointment with PCP 07/15/23 Liver enzymes are high in the hospital ALT Results: Lab Results Component Value Date/Time ALT-OUTSIDE LAB 46 11/20/2020 10:52 AM ALT-OUTSIDE LAB 70 (H) 09/11/2020 05:20 AM ALT-OUTSIDE LAB 56 (H) 09/10/2020 02:44 AM Patient Active Problem List Diagnosis Code ADVANCE DIRECTIVE INFORMATION Asthma, moderate persistent J45.40 Panic disorder F41.0 Alcoholism (HCC) F10.20 Major depressive disorder, recurrent episode, moderate (HCC) F33.1 DM type 2, not at goal (HCC) E11.9 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 busPIRone HCl 10 MG Oral Tablet (Buspar) Take 1 Tablet by mouth in the morning and 1 Tablet at noonand 1 Tablet in the evening. Pt unsure of dose, she takes 2 pills 3 times a day. Fluticasone-Salmeterol 250-50 MCG/ACT Inhalation Aerosol Powder Breath [...] mouth at bedtime. 90 Tablet 1 FreeStyle [place] Lite w/Device Kit Use to check sugars [...] as needed for Anxiety. 15 Tablet 0 Doxycycline Hyclate 100 MG Oral Capsule Take 1 Capsule by mouth in the morning and 1 Capsule beforebedtime. NovoLIN 70/30 FlexPen Relion (70-30) 100 UNIT/ML Suspension Pen-injector (Insulin NPH Isophane & Regular) Inject under the skin 35 units at breakfast and 15 units at dinner or as directed 45 mL 3 Triamcinolone Acetonide 55 MCG/ACT Nasal Aerosol (Nasacort Allergy 24HR) Administer into nostril asneeded for Rhinitis. Atorvastatin Calcium 20 MG Oral Tablet (Lipitor) Take 1 Tablet by mouth daily. (Patient not taking:Reported on 07/12/2023) 90 Tablet 3 No current facility-administered medications for this visit. Review of patient's allergies indicates: Allergen Reactions Theophylline anxiety Theophylline Sodium Glycinate nervous OBJECTIVE: BP 118/66 | Pulse 95 | Wt 75.2 kg (165 lb 12.8 oz) | SpO2 95% | BMI 30.33 kg/m | BSA 1.81 m PHYSICAL EXAM: General: alert, healthy, no distress, well developed Neck: supple, no adenopathy, thyroid Not enlarged without nodularity Heart: regular rhythm and rate,No murmurs. Lungs: lungs clear to auscultation Abdomen: Soft, non-tender, normal bowel sounds, no masses or organomegaly Extremities-no edema, full range of motion of bilateral hip, knee, ankle, shoulder elbow and wrist joints. Right wrist on the lateral aspect is a small area of erythema with scant yellowish discharge and a mild swelling below that minimally tender to the touch. No significant warmth. Left hand, area of small bruise on the lateral aspect, no synovitis. With bilateral SLR complains of pain in the ischial area ASSESSMENT/PLAN: Diffuse arthralgia (Primary) - ERYTHROCYTE SEDIMENTATION RATE (ESR); Future; Expected date: 07/12/2023 - CRP (INFLAMMATORY MARKER); Future; Expected date: 07/12/2023 - CBC WITH WBC DIFFERENTIAL; Future; Expected date: 07/12/2023 - BASIC METABOLIC PANEL; Future; Expected date: 07/12/2023 Advised to take Tylenol 500 mg 1-2 tablets maximum for daily and may alternate with ibuprofen 200 mg 2 tablets every 6-8 hours as needed for pain. Stopped doxycycline, switch to Keflex as below. Avoid prednisone given uncontrolled diabetes and recent DKA Cellulitis of right wrist - CBC WITH WBC DIFFERENTIAL; Future; Expected date: 07/12/2023 - Cephalexin 250 MG Oral Capsule; Take 1 Capsule by mouth in the morning and 1 Capsule at noon and 1 Capsule before bedtime. Do all this for 7 days. DM type 2, not at goal (HCC) - BASIC METABOLIC PANEL; Future; Expected date: 07/12/2023 Abnormal LFTs - HEPATIC FUNCTION PANEL; Future; Expected date: 07/12/2023 Alcoholism (HCC) - HEPATIC FUNCTION PANEL; Future; Expected date: 07/12/2023 Follow Up: Return if symptoms worsen or fail to improve. (This note was completed using the dictation program Fluency Direct. As such, there may be misspellings, word substitutions, or other variations that should not change the essence of the clinical content of this encounter note. If there is need for further clarification, please direct questions to the provider listed above.) Patient and / caregiver verbalize understanding of above instructions and agrees with plan of care. Valeria Parra MD 07/12/2023 documented in this encounter Nursing Notes * Genaro Menendez LPN - 07/12/2023 10:05 AM EST Chief Complaint Patient presents with Acute The pt stated she has had excruciating joint pain since she got out of the hospital. She also had an infected IV site on her R hand that she would like to follow up on. documented in this encounter Plan of Treatment Upcoming Encounters Date Type Department Care Team (Late st Contact Info) Description 07/15/2023 3:00 PM EST Office Visit [facility] [address] [facility] [place] [address] Krystin Graves MD [address] [facility] [place] [address] 07/25/2023 10:30 AM EST Telemedicine Pharmacy, [facility] [address] [facility], [place] [address] Pharmacist1, [facility] [address] [facility], [place] [address] Scheduled Orders Name Type Priority Associated Diagnoses Orde r Schedule ERYTHROCYTE SEDIMENTATION RATE (ESR) Lab Routine Diffuse arthralgia Expected: 07/12/2023 (Approximate), Expires: 07/11/2024 CRP (INFLAMMATORY MARKER) Lab Routine Diffuse arthralgia Expected: 07/12/2023 (Approximate), Expires: 07/11/2024 CBC WITH WBC DIFFERENTIAL Lab Routine Diffuse arthralgia Cellulitis of right wrist Expected: 07/12/2023 (Approximate), Expires: 07/12/2024 BASIC METABOLIC PANEL Lab Routine Diffuse arthralgia DM type 2, not at goal (HCC) Expected: 07/12/2023 (Approximate), Expires: 07/11/2024 HEPATIC FUNCTION PANEL Lab Routine Abnormal LFTs Alcoholism (HCC) Expected: 07/12/2023 (Approximate), Expires: 07/11/2024 Health Maintenance Due Date Last Done Comments [...] as of this encounter Visit Diagnoses Diagnosis Diffuse arthralgia- Primary Cellulitis of right wrist DM type 2, not at goal (HCC) Type II or unspecified type diabetes mellitus without mention of complication, not stated as uncontrolled Abnormal LFTs Other abnormal blood chemistry Alcoholism (HCC) Other and unspecified alcohol dependence, unspecified drinking behavior documented in this encounter Care Teams Internship Coordinator Relationship Specialty Start Date End Date Krystin Graves MD [address] [place] [address] PCP - General Family Medicine 10/21/22 documented as of this encounter"
--- OUTSIDE RECORDS SUMMARY | 2023-09-09 22:28 | External Medical Summary ---
Author Name Unknown Address Unknown Organization K0G:[facility]AT[facility] - [address] [place] [address] Laboratory Report Ordering Provider Test Date Status MEREDITH KAUFMAN 07/12/2023 10:58:05 Final Observation Date Value Abnormality Reference (Units ) Status Albumin 07/12/2023 10:58:05 3.6 Below low normal 3.8-5.0 (g/dL) Final AST (Aspartate aminotransferase) 07/12/2023 10:58:05 104 Above high normal 10-35 (U/L) Final Alk Phos 07/12/2023 10:58:05 437 Above high normal 35-130 (U/L) Final ALT (Alanine aminotransferase) 07/12/2023 10:58:05 102 Above high normal 10-35 (U/L) Final Bilirubin, Total 07/12/2023 10:58:05 0.9 <=1.2 (mg/dL) Final Bilirubin, Direct 07/12/2023 10:58:05 0.5 Above high normal 0.0-0.3 (mg/dL) Final Protein 07/12/2023 10:58:05 6.5 6.0-8.3 (g/dL) Final Performing Location [facility]ORY [facility] 0 - [address] [place] [address]
--- OUTSIDE RECORDS SUMMARY | 2023-09-09 22:28 | External Medical Summary ---
Author Name Unknown Address Unknown Organization K0G:LABORATORY [place] [facility] - [address] [place] [address] Laboratory Report Ordering Provider Test Date Status MEREDITH KAUFMAN 07/12/2023 10:58:05 Final Observation Date Value Abnormality Reference (Units ) Status BUN 07/12/2023 10:58:05 10 6-20 (mg/dL) Final Creatinine 07/12/2023 10:58:05 0.6 0.5-1.0 (mg/dL) Final Glomerular filtration rate/1.73 sq M.predicted [Volume Rate/Area] in Serum, Plasma or Blood by Creatinine-based formula (CKD-EPI) 07/12/2023 10:58:05 >90 >=60 (mL/min) Final eGFR is calculated based on the CKD-EPI 2020 equation SODIUM 07/12/2023 10:58:05 131 Below low normal 135 -146 (mmol/L) Final Potassium 07/12/2023 10:58:05 4.8 3.5-5.1 (m mol/L) Final Cl 07/12/2023 10:58:05 99 98-107 (mm ol/L) Final CO2 07/12/2023 10:58:05 18 Below low normal 22- 32 (mmol/L) Final Anion gap 07/12/2023 10:58:05 14 7-15 (mmol /L) Final Glucose 07/12/2023 10:58:05 349 Above high normal 70 -120 (mg/dL) Final Calcium 07/12/2023 10:58:05 9.9 8.4-10.2 ( mg/dL) Final Performing Location LABORATORY [facility] [place] [facility] 0 - [address] [place] [address]
--- OUTSIDE RECORDS SUMMARY | 2023-09-09 22:28 | External Medical Summary ---
Author Name Unknown Address Unknown Organization K01:[facility] [place] [address] [place] [address] Laboratory Report Ordering Provider Test Date Status MEREDITH KAUFMAN 07/12/2023 10:58:05 Final Observation Date Value Abnormality Reference (Units ) Status Erythrocyte sedimentation rate by Photometric method 07/12/2023 10:58:05 65 Above high normal <20 (mm/hour) Final Performing Location [facility] [place] [address] [facility] [place] [address]
--- OUTSIDE RECORDS SUMMARY | 2023-09-09 22:28 | External Medical Summary | Summary of Care ---
Author Name Unknown Organization [facility] Address [address] [place] [address] Phone [phone] Care Team Providers Care Dye Colorist Formulator Name Role Phone Krystin Graves MD Primary Care Provid er Reason for Visit * Reason Onset Date Comments Hospital Follow-Up 07/07/2023 [facility] 07/04 Encounter Details Date Type Department Care Team (Late st Contact Info) Description 07/07/2023 Telephone Ancillary Department, [address] [address] Debora Quick, RN Hospital Follow-Up ([facility] 07/04) Allergies Active Allergy Reactions Criticality [...] bedtime. 90 Tablet 1 04/08/2023 Active FreeStyle [place] Lite w/Device KitIndications:DM type 2, not at goal ([facility]) Use to check sugars daily. [...] (yfgn))Indications: DM type 2, not at goal ([facility]) Inject 35 units under the skin once daily. Replaces 70/30 insulin. 40 mL 0 04/24/2023 Active BD Insulin Syringe U-100 1 ML (Insulin Syringes (Disposable))Indica tions:DM type 2, not at goal ([facility]) Please use with Semglee insulin once daily E11.9 100 Each 3 04/24/2023 Active BD Pen Needle Gertrude U/F 32G X 4 MM (Insulin Pen Needle)Indications: DM type 2, not at goal ([facility]) Use with Fiasp insulin three [...] mRNA, LNP-s, No Pre serve, 2-Dose Series (Campanja) 04/17/2021,08/22/2020 Covid-19, Mrna, Lnp-s, Pf, B ivalent, 30 Mcg, IM, 12 yrs and above (Campanja) 03/20/2022,09/25/2021 Hepatitis B, 20+ yrs 03/05/2021 Pneumococcal Conjugate Vacci ne, 20-valent ([id number]) 02/20/2023 Pneumococcal Polysaccharide PPV23 (Pneumovax) 03/19/2018 Seasonal [...] visit for follow up: ALEX Admitted to: [facility], Date: 06/30 Discharged to: home, Date: 07/04 Diagnosis driving hospitalization: DKA Another message left for pt. * Telephone Encounter - Debora Quick RN - 07/07/2023 12:42 PM EST Transitions of Care Note Reason for Referral:Recent Admission Phone visit for follow up: ALEX Admitted to: [facility], Date: 06/30 Discharged to: home, Date: 07/04 Diagnosis driving hospitalization: DKA Message left on voicemail. If she reaches the call center she can be transferred to [place] at [phone]. Thank you. documented in this encounter Plan of Treatment Upcoming Encounters Date Type Department Care Team (Late st Contact Info) Description 07/11/2023 10:00 AM EST Office Visit [place] [address] [facility] [phone] Krystin Graves MD [address] [facility] [address] 07/14/2023 1:40 PM EST Office Visit [place] [address] [facility] [phone] Krystin Graves MD [address] [facility] [address] 07/31/2023 6:10 PM EST Pharmacy Pharmacy, [facility] [address] [place] [address] Pharmacist1, [facility] [address] [place] [address] Health Maintenance Due Date Last Done Comments [...] filedocumented as of this encounter Care Teams Dye Colorist Formulator Relationship Specialty Start Date End Date Krystin Graves MD [address] [place] [address] PCP - General Family Medicine 10/21/22 documented as of this encounter
--- OUTSIDE RECORDS SUMMARY | 2023-09-09 22:28 | External Medical Summary ---
Author Name Unknown Address Unknown Organization K0G:[facility] [place] [facility] - [address] [place] [address] Laboratory Report Ordering Provider Test Date Status MEREDITH KAUFMAN 07/12/2023 10:58:05 Final Observation Date Value Abnormality Reference (Units ) Status SYNC LEUKOCYTES IN BLOOD BY AUTOMATED COUNT 07/12/2023 10:58:05 6.15 4.00-10.80 (K/uL) Final Segs 07/12/2023 10:58:05 75.3 Above high normal 40.0-75.0 (%) Final Lymphs % 07/12/2023 10:58:05 16.3 Below low normal 18.0-42.0 (%) Final Monos 07/12/2023 10:58:05 8.0 1.0-11.0 (%) Final Eosinophils 07/12/2023 10:58:05 0.2 0.0-6.0 (%) Final Basos 07/12/2023 10:58:05 0.2 0.0-2.0 (%) Final Absolute Segs 07/12/2023 10:58:05 4.64 1.80-7.70 (K/uL) Final Lymphs, absolute 07/12/2023 10:58:05 1.00 1.00-4.80 (K/ul) Final Monos, Abs 07/12/2023 10:58:05 0.49 0.00-1.10 (K/uL) Final Eos, Abs 07/12/2023 10:58:05 0.01 0.00-0.70 (K/uL) Final Basos, Abs 07/12/2023 10:58:05 0.01 0.00-0.20 (K/uL) Final Performing Location [facility] [place] [facility] - [address] [place] [address]
--- OUTSIDE RECORDS SUMMARY | 2023-09-09 22:28 | External Medical Summary ---
Author Name Unknown Address Unknown Organization [id number]:LABORATORY [facility] [place] - [address] [facility] [facility] [place] [address] Laboratory Report Ordering Provider Test Date Status ALTON GROVE 07/12/2023 10:58:05 Final Observation Date Value Abnormality Reference (Units ) Status MYCODE SPECIMEN-SST 07/12/2023 10:58:05 Freezing of extracted DNA, whole blood and/or serum. Final Performing Location LABORATORY C - [address] [facility] [address]
--- OUTSIDE RECORDS SUMMARY | 2023-09-09 22:28 | External Medical Summary ---
Author Name Unknown Address Unknown Organization [id number]:LABORATORY [facility] [place] [address] - [address] [place] [address] Laboratory Report Ordering Provider Test Date Status MEREDITH KAUFMAN 07/12/2023 10:58:05 Final Observation Date Value Abnormality Reference (Units ) Status WBC, Total 07/12/2023 10:58:05 6.15 4.00-10.8 0 (K/uL) Final RBC 07/12/2023 10:58:05 3.91 3.85-5.15 (M/uL) Final Hemoglobin 07/12/2023 10:58:05 12.4 12.0-15.3 (g/dL) Final HCT 07/12/2023 10:58:05 37.8 36.0-45.2 (%) Final MCV 07/12/2023 10:58:05 96.7 81.5-97.5 (fL) Final MCH 07/12/2023 10:58:05 31.7 27.0-34.0 (pg) Final MCHC 07/12/2023 10:58:05 32.8 32.0-36.0 (g/dL) Final RDW 07/12/2023 10:58:05 13.1 11.5-15.5 (%) Final Platelets 07/12/2023 10:58:05 217 140-400 (K /uL) Final MPV 07/12/2023 10:58:05 11.2 6.6-11.1 ( fL) Final Performing Location LABORATORY [facility] [place] [address] - [address] [place] [address]
--- OUTSIDE RECORDS SUMMARY | 2023-09-09 22:28 | External Medical Summary | Summary of Care ---
Author Name Unknown Organization [facility] Address [address] [place] [address] Phone [phone] Care Team Providers Care Assistant Professor Of Biochemistry Name Role Phone Krystin Graves MD Primary Care Provid er Reason for Visit * Reason Comments Diabetes Follow-Up Dosage Adjustment Via Phone (anticoag Cl inic) Encounter Details Date Type Department Care Team (Late st Contact Info) Description 07/09/2023 10:30 AM EST Telemedicine Pharmacy, [facility] [address] [facility] [place] [address] Pharmacist1, [facility] [address] [facility] [place] [address] DM type 2, not at goal (MUSC [...] bedtime. 90 Tablet 1 04/08/2023 Active FreeStyle Sharon Lite w/Device KitIndications:DM type 2, not at [...] and 1 Capsule before bedtime. 0 07/05/2023 4 Active NovoLIN 70/30 FlexPen Relion (70-30) 100 UNIT/ML Suspension Pen-injector (Insulin NPH Isophane & Regular)Indication s:DM type 2, not at goal (HCC) Inject under the skin 35 units at breakfast and 15 units at dinner or as directed 45 mL 3 07/09/2023 Active Insulin Glargine-yfgn 100 UNIT/ML Subcutaneous Solution (Semglee (yfgn))Indications :DM type 2, not at goal (HCC) Inject 35 units under the skin once daily. Replaces 70/30 insulin. 40 mL 0 04/24/2023 4 Discontinu ed(Patient preference /discontin uation) documented as of this encounter (statuses as [...] mRNA, LNP-s, No Pre serve, 2-Dose Series (Lingohub) 04/17/2021,08/22/2020 Covid-19, Mrna, Lnp-s, Pf, B ivalent, 30 Mcg, IM, 12 yrs and above (Lingohub) 03/20/2022,09/25/2021 Hepatitis B, 20+ yrs 03/05/2021 Pneumococcal Conjugate Vacci ne, 20-valent (Etpfina21) 02/20/2023 Pneumococcal Polysaccharide PPV23 (Pneumovax) 03/19/2018 Seasonal [...] this encounter Progress Notes * Vel Mccormick, [facility] - 07/09/2023 10:11 AM EST Images from the original note were not included. Medication Therapy [facility] - Diabetes Management Progress Note Patient Phone Numbers Marcus Avelar, identified by name and date of , is a 47 year old female being seen for diabetesmanagement/education. Patient for telephonic return diabetic visit. [facility] DKA Follow-up. See note from 07/08 for labs and dosing. After connecting to the patient via telephone, the patient was identified by name and date of . Patient was then informed that this was a telephone call only visit. The patient agreed to participate. Visit Disposition: Routine follow-up Total call duration was 11 minutes. DIABETES: Current diabetic medications: She is uncomfortable giving basal/bolus and did not give any insulin for several days resulting in her going to [facility] with DKA 06/30 (see previous note). DISCONTINUE Novolin 70/30- 28 units in AM; 28 units in PM (restarted at [facility] discharge 07/04 - 35 units AM, 15 units PM) Medication Injection Site: Abdomen Lifestyle: Diet: eating less since hospital discharge History of Treatment Barriers: Lifestyle: None Therapy considerations: Recurrent UTI and/or Yeast Infection - use SGLT-2 with caution and Pancreatitis - use GLP-1/DPP-4 with caution Medication: hx of acute pancreatitis- avoiding GLPs at this time, Jardiance caused vaginitis, unable to tolerate metformin due to N/V even at very lowest doses Glucose Review/SMBG: Readings obtained from patient device ([facility] d/c 07/04) Hypoglycemia: Does your blood sugar go below 70 mg/dL? No Hyperglycemia symptoms present: polydipsia Goal <8 Recent Labs Units 06/30/23 0000 08/02/22 0000 09/07/20 0407 HEMOGLOBIN, [id number] LAB 11.3 10.3* 5.2 Recent Labs Units 08/02/22 0000 11/20/20 1052 09/11/20 0520 08/30/20 2232 11/25/18 0000 10/23/16 0000 EGFR-OUTSIDE LAB ML/MIN 86 -- -- -- 80 80 CREATININE-OUTSIDE LAB MG/DL 0.85 0.59 0.69 < > 0.88 0.90 < > = values in this interval not displayed. Lab Results Component Value Date/Time CREATININE, RANDOM URINE - [place] 93 10/21/2022 10:16 AM CREATININE-OUTSIDE LAB 0.85 [...] BG Readings - Blood sugars uncontrolled. Still rising after breakfast. Medications - Reviewed current regimen, patient is not adherent to regimen. See previous note. Backto using 70/30. Diet, Exercise, Lifestyle - see above and previous note [facility] admission for DKA . Discussed with patient today. Patient is agreeable to wear Beth CGM.. Patient aware to contact clinic if any hypoglycemia before next visit. MEDICATION CHANGES: yes, see below; preferred pharmacy: [facility] Diabetic Medications: Novolin 70/30- 35 units in AM; 15 units in PM START: Fiasp 2 units with breakfast HEALTH MAINTENANCE INTERVENTIONS: Labs: Up to Date Immunizations: eligible for flu and covid vaccine Foot Exam: Up to Date Eye Exam: due Annual Wellness Visit: N/A FOLLOW UP: Phone call follow up in 2 weeks 07/25/2023 Vel Byrne RPh, CACP, CDE Clinical Pharmacist Medication Therapy Management Clinic 07/09/2023 10:11 AM documented in this encounter Plan of Treatment Upcoming Encounters Date Type Department Care Team (Late st Contact Info) Description 07/11/2023 10:00 AM EST [facility] [place] [address] [facility] [phone] Krystin Graves MD [address] [facility] [phone] 07/14/2023 1:40 PM EST Office Visit [place] [address] [facility] [phone] Krystin Graves MD [address] [place] [facility] [place] [address] 07/25/2023 10:30 AM EST Telemedicine Pharmacy, [facility] [address] [facility] [place], [place] [address] Pharmacist1, [facility] [address] [facility] [place] [address] Health Maintenance Due Date Last Done Comments [...] Eye Exam 02/23/2023 02/23/2022 GFR 08/02/2023 08/02/2022, 05/06/2020, 09/11/2020, [...] Procedure Name Priority Date/Time Associated Diagnosis Comments HEMOGLOBIN A1C Routine 06/30/2023 documented in this encounter Results * HEMOGLOBIN A1C (06/30/2023) HEMOGLOBIN, [id number] LAB 11.3 AP [facility] Blood Venous blood specimen / Unknown 06/30/2023 History Per Patient LAB BLOOD ORDERABLES [facility] documented in this encounter Visit Diagnoses Diagnosis DM type 2, not at goal (HCC)- Primary Type II or unspecified type diabetes mellitus without mention of complication, not stated as uncontrolled documented in this encounter Care Teams Assistant Professor Of Biochemistry Relationship Specialty Start Date End Date Krystin Graves MD [address] [place] [address] PCP - General Family Medicine 10/21/22 documented as of this encounter
[2023-09-09 23:22] LABS: BUN Creatinine Ratio 17.9 (10-20); Calcium 8.8 mg/dl (8.6-10.3); Creatinine Clr Calc Pharmacy 104.5 ml/min; Est GFR (African American) 121.3 ml/min; Est GFR (Non-African American) 104.7 ml/min; Phosphorus 2.1 mg/dl (2.5-4.9)
[2023-09-10] MEDS: GABAPENTIN 400 MG CAP PO SCH ×2 (00:22→12:56)
[2023-09-10] MEDS: DEXTROSE 50% 50 ML SYRINGE IV PRN (00:30)
[2023-09-10 02:30] LABS: Albumin Globulin Ratio 1.2 (0.9-2); Albumin Level 3.8 gm/dl (3.4-5.0); BUN Creatinine Ratio 17.9 (10-20); Bilirubin,Total 0.9 mg/dl (0.2-1.0); Calcium 8.7 mg/dl (8.6-10.3); Creatinine Clr Calc Pharmacy 104.5 ml/min; Est GFR (African American) 121.3 ml/min; Est GFR (Non-African American) 104.7 ml/min; Globulin 3.1 gm/dl (2.5-4.0); Phosphorus 2.8 mg/dl (2.5-4.9); Potassium 3.6 mmol/L (3.5-5.1); Total Protein 6.9 gm/dl (6.0-8.3)
[2023-09-10 07:45] LABS: Estimated Average Glucose 209 mg/dl; Hemoglobin A1C 8.9 % (4.5-5.6)
[2023-09-10] MEDS: LANTUS PER UNIT CHARGE SC STA (08:08)
[2023-09-10] MEDS: THIAMINE HCL 100 MG TAB PO SCH (08:14)
[2023-09-10] MEDS: FOLIC ACID 1 MG TAB PO SCH (08:15)
[2023-09-10] MEDS: ASCORBIC ACID 500 MG TAB PO SCH (08:15)
[2023-09-10] MEDS: FLUTICASONE/VILANTEROL 100/25MCG 14 PUFFS/INHALER INH SCH (08:16)
[2023-09-10 08:26] LABS: Anion Gap 11 (3-11); BUN Creatinine Ratio 16.9 (10-20); Blood Urea Nitrogen 11 mg/dl (6-23); Carbon Dioxide 23 mmol/L (21-32); Chloride 100 mmol/L (98-107); Creatinine Clr Calc Pharmacy 107.8 ml/min; Est GFR (African American) 122.5 ml/min; Est GFR (Non-African American) 105.7 ml/min; Glucose 119 mg/dl (70-99(Fasting)); Magnesium 2.1 mg/dl (1.7-2.4); Phosphorus 2.2 mg/dl (2.5-4.9); Sodium 134 mmol/L (136-145)
[2023-09-10] MEDS ORDERED: MIRTAZAPINE TAB 15 MG TAB PO SCH (09:00)
[2023-09-10] MEDS: MULTIVITAMIN TAB PO SCH (09:10)
[2023-09-10 09:56] LABS: BUN Creatinine Ratio 17.9 (10-20); Calcium 9.2 mg/dl (8.6-10.3); Creatinine Clr Calc Pharmacy 104.5 ml/min; Est GFR (African American) 121.3 ml/min; Est GFR (Non-African American) 104.7 ml/min; Magnesium 1.9 mg/dl (1.7-2.4); Phosphorus 1.8 mg/dl (2.5-4.9); Potassium 3.9 mmol/L (3.5-5.1)
--- NOTE | 2023-09-10 10:54 | Pharmacy Report ---
Pharmacy Glycemic Short Note 2 - Date of Service September 10, 2023 - Glycemic Short BSG Results (Last 24 hours): 09/09/23 09/09/23 09/09/23 12:31 13:02 14:49 Glucose 298 H POC Glucose 298 H 243 H 09/09/23 09/09/23 09/09/23 16:48 18:14 19:14 Glucose POC Glucose 215 H 226 H 240 H 09/09/23 09/09/23 09/09/23 20:02 20:41 22:05 Glucose 230 H POC Glucose 190 H 142 H 09/09/23 09/09/23 09/10/23 22:34 23:02 00:02 Glucose 137 H POC Glucose 151 H 106 H 09/10/23 09/10/23 09/10/23 00:19 00:47 01:45 Glucose POC Glucose 93 171 H 143 H 09/10/23 09/10/23 09/10/23 01:47 02:48 03:04 Glucose 132 H POC Glucose 117 H 113 H 09/10/23 09/10/23 09/10/23 03:21 04:01 05:02 Glucose POC Glucose 119 H 133 H 124 H 09/10/23 09/10/23 09/10/23 06:02 06:22 06:35 Glucose 119 H POC Glucose 111 H 106 H 09/10/23 09/10/23 09/10/23 06:43 07:44 08:50 Glucose POC Glucose 144 H 165 H 178 H 09/10/23 09/10/23 09:10 10:07 Glucose 150 H POC Glucose 138 H OUTPATIENT ANTIDIABETIC REGIMEN: * Novolin 70/30: Take 35 units SC w/ breakfast and 15 units SC w/ dinner * HbA1c: 8.9% (09/10/23) ASSESSMENT: * 47 yo F admitted on 09/09/23 secondary to DKA. Pharmacy has been consulted to assist with inpatient glycemic management. Patient is well known to our glycemic service. Patient is a Type 1 diabetic as an outpatient. Please refer to outpatient regimen and most recent HbA1c above. * Upon presentation: BSG was 298 mg/dL, AG 23, CO2 19, K 4.3 and pH 7.39. Initially, provider tried to manage via basal-bolus regimen but insulin drip was eventually started around bedtime last night. Drip initiated at 5 units/hr and D5 1/2 NS + 20 K+ was added once BSG was in goal range. * This AM the patient's gap has closed, CO2 is normal and pH actually shows an alkalosis. Ordered 20 units of Lantus which was based on previous admission data. This overlapped with the insulin drip for at least 2 hours. Insulin drip was discontinued around 1045 AM and was running at 0.9 units/hr. Provider okay with discontinuation of fluids as well. T1DM diet is ordered and RN confirms patient is hungry and will be eating lunch. * Ordering basal ongoing starting tomorrow AM based on previous admission data. Bolus regimen will also be based on previous admission data. PLAN FOR INPATIENT GLYCEMIC CONTROL: * Basal insulin * Lantus 20 units SC x 1 today * Lantus 18 units SC AM starting 09/11/23 * Bolus insulin * NovoLog per scale ACHS or Q6hrs while NPO * Goal Range: Low 110 mg/dL - High 140 mg/dL * Correction Factor: 30 mg/dL/unit * Nutritional / Prandial insulin per carb ratio of 1 unit per 10 grams CHO consumed
[2023-09-10] MEDS: INSULIN ASPART PER UNIT CHARGE SC SCH (11:55)
--- NOTE | 2023-09-10 12:35 | Hospitalist Progress Note ---
Date of Service September 10, 2023 Assessment & Plan (1) DKA (diabetic ketoacidosis): (2) DKA, type 1: (3) Alcoholism: (4) Metabolic acidosis due to diabetes mellitus: (5) Splenomegaly: (6) Anxiety: Plan: DKA DM type I - Hx of pancreatitis so GLP-1 not an option, jardiance caused vaginitis and unable to tolerate metformin at even very low doses. - Home meds: Novolin 70/30 insulin 35 U breakfast and 15 U dinner, ( she is more comfortable with this regimen than sliding scale insulin). -Patient has a sensor for glucose on her arm, has it set that when it drops below 100 it alerts for, this is anxiety provoking. BSG 250 on admission, AG 23, bicarb 19, mag 2.3, phos 2.5 and BMP, osm 361 Managed with IVF GAP closed Transitioned to sq insulin Provided DM education History of alcohol use Liver cirrhosis Elevated transaminases - Patient reports she relapsed 2-3 weeks ago Last drink was on day of presentation. Has been drinking 175 ml bottle of vodka in 3 days or drinking a box of wine in 3 days routinely for past 3 weeks. Alcohol level 257 on admission Was previously on naltrexone, stopped taking this several months ago as the prescription ran out AST and ALT elevated, bili WNL, INR normal Previously had liver US during most recent admission in Jun which noted enlarged pancreatic duct for which follow up with GI was recommended since it is progressing from 2020 Continue folate, thiamine CIWA protocol Monitor electrolytes and replete as needed TSH elevation TSH 5.922 elevated, Free T4 was normal Recheck in 6 weeks to ensure improvement in TSH, likely elevated from the above Anxiety/depression Continue Remeron, lorazepam, BuSpar F/u Psychiatry eval Consider alcohol inpatient detoxification/rehab CM to assist with that DVT PPx: subq heparin CODE: Full I spent a total of 50 minutes coordinating, documenting and providing care for this patient excluding time spent in performance of separately billed services Admission and Anticipated Discharge Date Admission Date: September 09, 2023 Subjective Patient seen and examined Reports feeling better today Denied nausea, vomiting, abd pain, tremor Reports mild anxiety earlier Denied hallucinations, headache, dizziness Denied palpitations, chest pian, SOB,cough Reported one loose stool. Denied abd pain, melena, hematochezia Physical Exam Constitutional: + well hydrated; no acute distress Eyes: PERRL, conjunctivae normal, anicteric sclerae ENMT: external ear and nose normal, oropharynx normal Respiratory: normal respiratory effort, lungs clear to auscultation Cardiovascular: Rate/Rhythm: regular rate and regular rhythm S1 S2 Gastrointestinal (Abdomen): normal bowel sounds, soft, nontender, no hepatosplenomegaly Musculoskeletal: no cyanosis or clubbing, extremities motor strength 5/5 Neurologic: PERRL, EOMI, accommodation nl, no face palsy, no dysarthria Psychiatric: A+Ox3, euthymic affect Results & Data Results & Data Vital Signs (Past 12 Hours) Vital Signs Temp Pulse Resp BP Pulse Ox O2 Del Method 09/10/23 10:55 36.6 C 89 18 107/72 95 Room Air 09/10/23 08:28 36.4 C L 98 H 18 120/78 93 Room Air 09/10/23 03:11 36.5 C 84 16 96/62 L 95 Room Air Laboratory Results Abnormal lab results 09/09/23 09/09/23 09/09/23 Range/Units 14:49 15:14 16:48 VBG pH (7.36-7.41) VBG pCO2 32 L (38-50) mmHg Sodium (136-145) mmol/L Chloride (98-107) mmol/L Carbon Dioxide (21-32) mmol/L Anion Gap (3-11) Glucose (70-99(Fasting)) mg/dl POC Glucose 243 H 215 H (70-99) mg/dl Hemoglobin A1c (4.5-5.6) % Phosphorus (2.5-4.9) mg/dl AST (13-39) U/L ALT (7-52) U/L Alkaline Phosphatase (34-104) U/L 09/09/23 09/09/23 09/09/23 Range/Units 18:14 19:14 20:02 VBG pH (7.36-7.41) VBG pCO2 29 L (38-50) mmHg Sodium 132 L (136-145) mmol/L Chloride 96 L (98-107) mmol/L Carbon Dioxide 17 L (21-32) mmol/L Anion Gap 19 H (3-11) Glucose 230 H (70-99(Fasting)) mg/dl POC Glucose 226 H 240 H (70-99) mg/dl Hemoglobin A1c (4.5-5.6) % Phosphorus 1.8 L (2.5-4.9) mg/dl AST (13-39) U/L ALT (7-52) U/L Alkaline Phosphatase (34-104) U/L 09/09/23 09/09/23 09/09/23 Range/Units 20:41 22:05 22:34 VBG pH 7.43 H (7.36-7.41) VBG pCO2 (38-50) mmHg Sodium 132 L (136-145) mmol/L Chloride 97 L (98-107) mmol/L Carbon Dioxide 20 L (21-32) mmol/L Anion Gap 15 H (3-11) Glucose 137 H (70-99(Fasting)) mg/dl POC Glucose 190 H 142 H (70-99) mg/dl Hemoglobin A1c (4.5-5.6) % Phosphorus 2.1 L (2.5-4.9) mg/dl AST (13-39) U/L ALT (7-52) U/L Alkaline Phosphatase (34-104) U/L 09/09/23 09/10/23 09/10/23 Range/Units 23:02 00:02 00:47 VBG pH (7.36-7.41) VBG pCO2 (38-50) mmHg Sodium (136-145) mmol/L Chloride (98-107) mmol/L Carbon Dioxide (21-32) mmol/L Anion Gap (3-11) Glucose (70-99(Fasting)) mg/dl POC Glucose 151 H 106 H 171 H (70-99) mg/dl Hemoglobin A1c (4.5-5.6) % Phosphorus (2.5-4.9) mg/dl AST (13-39) U/L ALT (7-52) U/L Alkaline Phosphatase (34-104) U/L 09/10/23 09/10/23 09/10/23 Range/Units 01:45 01:47 02:48 VBG pH 7.46 H (7.36-7.41) VBG pCO2 (38-50) mmHg Sodium 134 L (136-145) mmol/L Chloride (98-107) mmol/L Carbon Dioxide (21-32) mmol/L Anion Gap (3-11) Glucose 132 H (70-99(Fasting)) mg/dl POC Glucose 143 H 117 H (70-99) mg/dl Hemoglobin A1c 8.9 H (4.5-5.6) % Phosphorus (2.5-4.9) mg/dl AST 233 H (13-39) U/L ALT 133 H (7-52) U/L Alkaline Phosphatase 351 H (34-104) U/L 09/10/23 09/10/23 09/10/23 Range/Units 03:04 03:21 04:01 VBG pH (7.36-7.41) VBG pCO2 (38-50) mmHg Sodium (136-145) mmol/L Chloride (98-107) mmol/L Carbon Dioxide (21-32) mmol/L Anion Gap (3-11) Glucose (70-99(Fasting)) mg/dl POC Glucose 113 H 119 H 133 H (70-99) mg/dl Hemoglobin A1c (4.5-5.6) % Phosphorus (2.5-4.9) mg/dl AST (13-39) U/L ALT (7-52) U/L Alkaline Phosphatase (34-104) U/L 09/10/23 09/10/23 09/10/23 Range/Units 05:02 06:02 06:22 VBG pH (7.36-7.41) VBG pCO2 (38-50) mmHg Sodium (136-145) mmol/L Chloride (98-107) mmol/L Carbon Dioxide (21-32) mmol/L Anion Gap (3-11) Glucose (70-99(Fasting)) mg/dl POC Glucose 124 H 111 H 106 H (70-99) mg/dl Hemoglobin A1c (4.5-5.6) % Phosphorus (2.5-4.9) mg/dl AST (13-39) U/L ALT (7-52) U/L Alkaline Phosphatase (34-104) U/L 09/10/23 09/10/23 09/10/23 Range/Units 06:35 06:43 07:44 VBG pH 7.46 H (7.36-7.41) VBG pCO2 (38-50) mmHg Sodium 134 L (136-145) mmol/L Chloride (98-107) mmol/L Carbon Dioxide (21-32) mmol/L Anion Gap (3-11) Glucose 119 H (70-99(Fasting)) mg/dl POC Glucose 144 H 165 H (70-99) mg/dl Hemoglobin A1c (4.5-5.6) % Phosphorus 2.2 L (2.5-4.9) mg/dl AST (13-39) U/L ALT (7-52) U/L Alkaline Phosphatase (34-104) U/L 09/10/23 09/10/23 09/10/23 Range/Units 08:50 09:04 09:10 VBG pH 7.50 H (7.36-7.41) VBG pCO2 (38-50) mmHg Sodium 133 L (136-145) mmol/L Chloride (98-107) mmol/L Carbon Dioxide (21-32) mmol/L Anion Gap (3-11) Glucose 150 H (70-99(Fasting)) mg/dl POC Glucose 178 H (70-99) mg/dl Hemoglobin A1c (4.5-5.6) % Phosphorus 1.8 L (2.5-4.9) mg/dl AST (13-39) U/L ALT (7-52) U/L Alkaline Phosphatase (34-104) U/L 09/10/23 09/10/23 09/10/23 Range/Units 10:07 10:54 14:05 VBG pH 7.49 H (7.36-7.41) VBG pCO2 (38-50) mmHg Sodium (136-145) mmol/L Chloride (98-107) mmol/L Carbon Dioxide (21-32) mmol/L Anion Gap (3-11) Glucose (70-99(Fasting)) mg/dl POC Glucose 138 H 135 H (70-99) mg/dl Hemoglobin A1c (4.5-5.6) % Phosphorus (2.5-4.9) mg/dl AST (13-39) U/L ALT (7-52) U/L Alkaline Phosphatase (34-104) U/L (1) DKA (diabetic ketoacidosis) Diabetes mellitus complication detail: without coma Diabetes mellitus type: type 1 Qualified Code(s): E10.10 - Type 1 diabetes mellitus with ketoacidosis without coma
[2023-09-10 14:44] LABS: BUN Creatinine Ratio 13.6 (10-20); Calcium 9.4 mg/dl (8.6-10.3); Creatinine Clr Calc Pharmacy 79.6 ml/min; Est GFR (African American) 90.7 ml/min; Est GFR (Non-African American) 78.2 ml/min; Magnesium 1.8 mg/dl (1.7-2.4); Phosphorus 3.1 mg/dl (2.5-4.9)
--- NOTE | 2023-09-10 15:55 | Communication Note ---
Date of Service: September 10, 2023 consult received, chart reviewed, patient known to me from a previous stay, per CM notes in declining rehab referrals. contacted Dr. Williamson to clarify que stions given typically don't make psych med recs/changes during active withdrawal management and there is mention of propranolol trial on chart for palpitations but I typically don't recommend in diabetics as can mask symptoms of hypoglycemia, etc. Ativan would be recommended for acute detox use only, continues to receive regular rx from outpatient. Liaison will see patient with additional consultation to follow.
[2023-09-10] MEDS: LORazepam 0.5 MG TAB PO PRN (20:56)
[2023-09-10] MEDS: MELATONIN 3 MG TAB PO PRN (20:56)
[2023-09-11 08:19] LABS: Albumin Globulin Ratio 1.2 (0.9-2); Albumin Level 3.7 gm/dl (3.4-5.0); BUN Creatinine Ratio 16.2 (10-20); Bilirubin,Total 0.9 mg/dl (0.2-1.0); Calcium 9.6 mg/dl (8.6-10.3); Creatinine Clr Calc Pharmacy 94.7 ml/min; Est GFR (African American) 111.8 ml/min; Est GFR (Non-African American) 96.5 ml/min; Globulin 3.1 gm/dl (2.5-4.0); Potassium 4.1 mmol/L (3.5-5.1); Total Protein 6.8 gm/dl (6.0-8.3)
[2023-09-11] MEDS: LANTUS PER UNIT CHARGE SC SCH (08:47)
[2023-09-11] MEDS ORDERED: LANTUS PER UNIT CHARGE SC SCH (09:00)
--- NOTE | 2023-09-11 10:19 | Pharmacy Report ---
Pharmacy Glycemic Short Note 2 - Date of Service September 11, 2023 - Glycemic Short BSG Results (Last 24 hours): 09/10/23 09/10/23 09/10/23 10:54 14:05 17:00 Glucose 216 H POC Glucose 135 H 219 H 09/10/23 09/11/23 09/11/23 20:09 07:01 07:48 Glucose 358 H* POC Glucose 157 H 347 H* 09/11/23 07:51 Glucose POC Glucose 326 H* OUTPATIENT ANTIDIABETIC REGIMEN: * Novolin 70/30: Take 35 units SC w/ breakfast and 15 units SC w/ dinner * HbA1c: 8.9% (09/10/23) ASSESSMENT: 09/10 * Patient received 33 units of insulin yesterday + insulin drip for part of day. Transitioned off insulin drip around lunch time. * Fasting BSG 326 mg/dL - unclear if any overnight snacking. Will repeat with Lantus 20 units x 1 this AM. Reasonable to keep novolog the same this AM, however will consider tightening if trending upward. May consider adding an overnight check to have a better estimate of any additional insulin needs overnight 09/09 * 47 yo F admitted on 09/09/23 secondary to DKA. Pharmacy has been consulted to assist with inpatient glycemic management. Patient is well known to our glycemic service. Patient is a Type 1 diabetic as an outpatient. Please refer to outpatient regimen and most recent HbA1c above. * Upon presentation: BSG was 298 mg/dL, AG 23, CO2 19, K 4.3 and pH 7.39. Initially, provider tried to manage via basal-bolus regimen but insulin drip w as eventually started around bedtime last night. Drip initiated at 5 units/hr and D5 1/2 NS + 20 K+ was added once BSG was in goal range. * This AM the patient's gap has closed, CO2 is normal and pH actually shows an alkalosis. Ordered 20 units of Lantus which was based on previous admission data. This overlapped with the insulin drip for at least 2 hours. Insulin drip was discontinued around 1045 AM and was running at 0.9 units/hr. Provider okay with discontinuation of fluids as well. T1DM diet is ordered and RN confirms patient is hungry and will be eating lunch. * Ordering basal ongoing starting tomorrow AM based on previous admission data. Bolus regimen will also be based on previous admission data. PLAN FOR INPATIENT GLYCEMIC CONTROL: * Basal insulin * Lantus 20 units SC daily * Bolus insulin * NovoLog per scale ACHS or Q6hrs while NPO * Goal Range: Low 110 mg/dL - High 140 mg/dL * Correction Factor: 30 mg/dL/unit * Nutritional / Prandial insulin per carb ratio of 1 unit per 10 grams CHO consumed
[2023-09-11 11:36] LABS: Magnesium 1.9 mg/dl (1.7-2.4); Phosphorus 3.5 mg/dl (2.5-4.9)
--- NOTE | 2023-09-11 15:55 | Hospitalist Progress Note ---
Date of Service September 11, 2023 Assessment & Plan (1) DKA (diabetic ketoacidosis): (2) DKA, type 1: (3) Alcoholism: (4) Metabolic acidosis due to diabetes mellitus: (5) Splenomegaly: (6) Anxiety: Plan: DKA DM type I - Hx of pancreatitis so GLP-1 not an option, jardiance caused vaginitis and unable to tolerate metformin at even very low doses. - Home meds: Novolin 70/30 insulin 35 U breakfast and 15 U dinner, ( she is more comfortable with this regimen than sliding scale insulin). -Patient has a sensor for glucose on her arm, has it set that when it drops below 100 it alerts for, this is anxiety provoking. BSG 250 on admission, AG 23, bicarb 19, mag 2.3, phos 2.5 and BMP, osm 361 Managed with IVF GAP closed Transitioned to sq insulin Provided more DM education History of alcohol use Liver cirrhosis Elevated transaminases - Patient reports she relapsed 2-3 weeks ago Last drink was on day of presentation. Has been drinking 175 ml bottle of vodka in 3 days or drinking a box of wine in 3 days routinely for past 3 weeks. Alcohol level 257 on admission Was previously on naltrexone, stopped taking this several months ago as the prescription ran out AST and ALT elevated but trending down Bilirubin WNL, INR normal Previously had liver US during most recent admission in Jun which noted enlarged pancreatic duct for which follow up with GI was recommended since it is progressing from 2020 Continue folate, thiamine CIWA protocol Monitor electrolytes and replete as needed Counseled patient regarding alcohol cessation TSH elevation TSH 5.922 elevated, Free T4 was normal Recheck in 6 weeks to ensure improvement in TSH, likely elevated from the above Anxiety/depression Continue Remeron, lorazepam, BuSpar Psych eval noted Provided more counseling CM to provide more resources DVT PPx: subq heparin CODE: Full I spent a total of 45 minutes coordinating, documenting and providing care for this patient excluding time spent in performance of separately billed services Admission and Anticipated Discharge Date Admission Date: September 09, 2023 Subjective Patient seen and examined Reports feeling more anxious today Denied nausea, vomiting, abd pain Denied hallucinations, headache, dizziness Denied palpitations, chest pain, SOB,cough Denied abd pain, melena, hematochezia Physical Exam Constitutional: + well hydrated; no acute distress Eyes: PERRL, conjunctivae normal, anicteric sclerae ENMT: external ear and nose normal, oropharynx normal Respiratory: normal respiratory effort, lungs clear to auscultation Cardiovascular: Rate/Rhythm: regular rate and regular rhythm S1 S2 Gastrointestinal (Abdomen): normal bowel sounds, soft, nontender, no hepatosplenomegaly Musculoskeletal: no cyanosis or clubbing, extremities motor strength 5/5 Neurologic: PERRL, EOMI, accommodation nl, no face palsy, no dysarthria Psychiatric: A+Ox3, euthymic affect Results & Data Results & Data Vital Signs (Past 12 Hours) Vital Signs Temp Pulse Pulse Resp BP Pulse Ox O2 Del Method 09/11/23 11:14 36.7 C 86 20 119/77 98 Room Air 09/11/23 07:36 36.5 C 84 20 123/85 96 Room Air 09/11/23 05:27 82 Laboratory Results Abnormal lab results 09/10/23 09/10/23 09/11/23 Range/Units 17:00 20:09 07:01 Glucose 358 H* (70-99(Fasting)) mg/dl POC Glucose 219 H 157 H (70-99) mg/dl AST 145 H (13-39) U/L ALT 106 H (7-52) U/L Alkaline Phosphatase 297 H (34-104) U/L 09/11/23 09/11/23 09/11/23 Range/Units 07:48 07:51 10:51 Glucose (70-99(Fasting)) mg/dl POC Glucose 347 H* 326 H* 109 H (70-99) mg/dl AST (13-39) U/L ALT (7-52) U/L Alkaline Phosphatase (34-104) U/L 09/11/23 Range/Units 11:49 Glucose (70-99(Fasting)) mg/dl POC Glucose 105 H (70-99) mg/dl AST (13-39) U/L ALT (7-52) U/L Alkaline Phosphatase (34-104) U/L (1) DKA (diabetic ketoacidosis) Diabetes mellitus complication detail: without coma Diabetes mellitus type: type 1 Qualified Code(s): E10.10 - Type 1 diabetes mellitus with ketoacidosis without coma
[2023-09-11] MEDS: GABAPENTIN 400 MG CAP PO SCH (18:24)
[2023-09-11] MEDS: LORazepam 0.5 MG TAB PO PRN (20:09)
[2023-09-12] MEDS: INSULIN ASPART PER UNIT CHARGE SC SCH (01:16)
[2023-09-12 05:10] LABS: Albumin Globulin Ratio 1.2 (0.9-2); Albumin Level 3.9 gm/dl (3.4-5.0); BUN Creatinine Ratio 16.2 (10-20); Bilirubin,Total 0.6 mg/dl (0.2-1.0); Calcium 10.4 mg/dl (8.6-10.3); Creatinine Clr Calc Pharmacy 94.7 ml/min; Est GFR (African American) 111.8 ml/min; Est GFR (Non-African American) 96.5 ml/min; Globulin 3.3 gm/dl (2.5-4.0); Magnesium 1.8 mg/dl (1.7-2.4); Phosphorus 4.7 mg/dl (2.5-4.9); Total Protein 7.2 gm/dl (6.0-8.3)
--- NOTE | 2023-09-12 10:39 | Pharmacy Report ---
Pharmacy Glycemic Short Note 2 - Date of Service September 12, 2023 - Glycemic Short BSG Results (Last 24 hours): 09/11/23 09/11/23 09/11/23 10:51 11:49 16:51 Glucose POC Glucose 109 H 105 H 274 H 09/11/23 09/12/23 09/12/23 20:20 00:03 04:15 Glucose 209 H POC Glucose 118 H 304 H* 09/12/23 07:50 Glucose POC Glucose 212 H OUTPATIENT ANTIDIABETIC REGIMEN: * Novolin 70/30: Take 35 units SC w/ breakfast and 15 units SC w/ dinner * HbA1c: 8.9% (09/10/23) ASSESSMENT: 09/11 * Patient received total of 44 units of insulin yesterday, of which 20 units were basal insulin * Fasting BSG 212 mg/dL - however discussed with RN and patient was drinking juice overnight. Received 5 units of correctional insulin at midnight. Continue same Lantus since overnight snacking/drinking. * Plan to tighten CR slightly this AM 09/10 * Patient received 33 units of insulin yesterday + insulin drip for part of day. Transitioned off insulin drip around lunch time. * Fasting BSG 326 mg/dL - unclear if any overnight snacking. Will repeat with Lantus 20 units x 1 this AM. Reasonable to keep novolog the same this AM, however will consider tightening if trending upward. May consider adding an overnight check to have a better estimate of any additional insulin needs overnight 09/09 * 47 yo F admitted on 09/09/23 secondary to DKA. Pharmacy has been consulted to assist with inpatient glycemic management. Patient is well known to our glycemic service. Patient is a Type 1 diabetic as an outpatient. Please refer to outpatient regimen and most recent HbA1c above. * Upon presentation: BSG was 298 mg/dL, AG 23, CO2 19, K 4.3 and pH 7.39. Initially, provider tried to manage via basal-bolus regimen but insulin drip was eventually started around bedtime last night. Drip initiated at 5 units/hr and D5 1/2 NS + 20 K+ was added once BSG was in goal range. * This AM the patient's gap has closed, CO2 is normal and pH actually shows an alkalosis. Ordered 20 units of Lantus which was based on previous admission data. This overlapped with the insulin drip for at least 2 hours. Insulin drip was discontinued around 1045 AM and was running at 0.9 units/hr. Provider okay with discontinuation of fluids as well. T1DM diet is ordered and RN confirms patient is hungry and will be eating lunch. * Ordering basal ongoing starting tomorrow AM based on previous admission data. Bolus regimen will also be based on previous admission data. PLAN FOR INPATIENT GLYCEMIC CONTROL: * Basal insulin * Lantus 20 units SC daily * Bolus insulin * NovoLog per scale ACHS or Q6hrs while NPO * Goal Range: Low 110 mg/dL - High 140 mg/dL * Correction Factor: 30 mg/dL/unit * Nutritional / Prandial insulin per carb ratio of 1 unit per 10 grams CHO consumed
--- NOTE | 2023-09-12 12:51 | Hospitalist Progress Note ---
Date of Service September 12, 2023 Assessment & Plan (1) DKA (diabetic ketoacidosis): (2) DKA, type 1: (3) Alcoholism: (4) Metabolic acidosis due to diabetes mellitus: (5) Splenomegaly: (6) Anxiety: Plan: DKA H/O DM type I H/O pancreatitis so GLP-1 not an option, Jardiance caused vaginitis and unable to tolerate metformin at even very low doses. - Home meds: Novolin 70/30 insulin 35 U breakfast and 15 U dinner, (Pt is more comfortable with this regimen than sliding scale insulin). -Patient has a sensor for glucose on her arm, has it set that when it drops below 100 it alerts for, this is anxiety provoking. BSG 250 on admission, AG 23, bicarb 19, mag 2.3, phos 2.5 and BMP, osm 361 -- Anion gap closed Received IV insulin transition to Also received IV fluids Diabetic education provided Advised to be compliant with insulin use and monitor blood glucose levels regularly H/O Alcohol use Liver cirrhosis Elevated transaminases Alcohol level 257 on admission Was previously on naltrexone, stopped taking this several months ago as the prescription ran out --Liver USD:The liver is enlarged, severely steatotic, and shows morphologic change of cirrhosis. No gallstones are identified.There is mild nonspecific dilatation of the pancreatic duct which measures up to 5 mm. This has increased from the 06/10/2021 examinations and may be related to pancreatic atrophy. GI follow-up is recommended. -- Completed gabapentin protocol Continue thiamine, folic acid Currently not interested in drug rehab placement Consult on multiple occasions to quit drinking Abnormal thyroid function test TSH elevation TSH 5.922 elevated, Free T4 was normal Recheck in 6 weeks to ensure improvement in TSH, likely elevated from the above Anxiety/depression Continue Remeron, lorazepam, BuSpar Psych eval noted Provided counseling CM to provide more resources DVT Px: SQ Heparin CODE STATUS: Full Code Admission and Anticipated Discharge Date Admission Date: September 09, 2023 Subjective Patient is seen and examined at bedside States feeling a lot better today Offers no new complaints Eager to get discharged No signs of alcohol withdrawal currently Denies any chest pain, dyspnea, dizziness, nausea, vomiting, abdominal pain Review of Systems Review of Systems: All systems reviewed & are unremarkable except as noted in Subjective Physical Exam Physical Exam: Physical Exam: Vitals signs as noted above General Appearance:Moderately built and nourished, no apparent distress Head: normocephalic, Atraumatic Eyes: normal inspection, EOMI Neck: supple, Trachea midline Respiratory/Chest: Normal breath sounds, CTA, No accessory muscle use Cardiovascular: S1, S2, No murmur Abdomen/GI:Soft, Non tender, Bowel sounds present Extremities/Musculoskeletal:normal inspection, no edema Neurologic/Psych:AAOX3, grossly no focal neurological deficits Skin: normal color, warm Results & Data Results & Data Vital Signs (Past 12 Hours) Vital Signs Temp Pulse Pulse Resp BP Pulse Ox O2 Del Method 09/12/23 11:15 36.7 C 82 19 111/76 97 Room Air 09/12/23 11:10 86 09/12/23 07:27 36.4 C L 71 19 107/73 97 Room Air 09/12/23 03:03 36.4 C L 88 18 120/83 97 Room Air Laboratory Results [facility] 09/12/23 04:15 Sodium 137 Potassium 4.0 Chloride 104 Carbon Dioxide 25 BUN 12 Creatinine 0.74 Glucose 209 H Calcium 10.4 H Liver Function 09/12/23 Range/Units 04:15 Total Bilirubin 0.6 (0.2-1.0) mg/dl AST 96 H (13-39) U/L ALT 92 H (7-52) U/L Alkaline Phosphatase 317 H (34-104) U/L Albumin 3.9 (3.4-5.0) gm/dl (1) DKA (diabetic ketoacidosis) Diabetes mellitus complication detail: without coma Diabetes mellitus type: type 1 Qualified Code(s): E10.10 - Type 1 diabetes mellitus with ketoacidosis without coma
--- NOTE | 2023-09-12 12:59 | Discharge Summary ---
Date of Service September 12, 2023 Admission HPI Per Admitting Provider This is a 47-year-old female with a PMHx of alcohol abuse, alcohol withdrawal, pancreatitis, [facility] admission for suicidal ideation, type I DM, splenomegaly, hepatic steatosis, asthma, GI bleed who presents to the ER with request for alcohol detox, alcohol withdrawal. Patient has been previously noncompliant with insulin. Most recently she was hospitalized from 07/02 to 07/04 here at [facility] for severe DKA, DM type I. In the past 3 weeks she has had severe anxiety, specifically about her insulin dosing and dropping her glucose. She feels back whenever her glucose gets below 100 she gets increasingly worried that she is going to pass out, and more so even if she has not eaten. She also gets severely fearful when she starts thinking about winter months, cold weather, or the potential that she lives alone, and that if she falls down or has a problem she cannot get a hold of anybody. Her main complaints are that she feels that she has heart palpitations, gets sweaty, and needs to walk/pace in her 2 bedroom apartment. She saw a therapist once who she found on the list, states that it was difficult to find somebody who was available and took her insurance, but did not feel she received any real support from this therapist. She does not currently follow with any psychiatrist. She denies specific suicidal or homicidal ideations. She does express anhedonia, and states that if she just stopped breathing, she would be okay with dying currently. In regards to her medications, she currently takes BuSpar 3 times daily, and mirtazapine at bedtime. She has only trialed 1 other previous anxiety/ depression medication which was Celexa last summer and reports that it was very difficult to wean off mirtazapine and start Celexa, and did not tolerate it. Therefore went back to mirtazapine. She has been on these two medications for about 3 years and feels it does help her. Pt has been drinking for about 3 weeks. Prior to that had a timeframe of 8 wks clean. Last year in 2022 was clean for about 10 months. Patient states she has had a poor p.o. intake in the last 2 days, but has tolerated juice, water and has been drinking alcohol daily. She drinks a 750 mL bottle of vodka in about 3 days, or she chooses to drink wine a box of it in 3 days. This morning she had 2 glasses of wine before calling her father who is with her here in the ER. Patient attempted to stop drinking 3 weeks ago after the most recent hospitalization but was unsuccessful due to anxiety attacks as aforementioned. She realizes that she needs to stop drinking alcohol. Patient is open to discussing inpatient rehab for alcohol detox during this admission stay as well as seeing psychiatry. Admission Exam Per Admitting Provider General: awake, alert, no apparent distress Head: Normocephalic, atraumatic ENT: PERRL, EOMI, no pharyngeal exudate, mucous membranes moist Chest: Clear to auscultation, on room air, no adventitious breath sounds Cardiac: Regular rate and rhythm, no murmur, no JVD, normal peripheral pulses, good capillary refill Abdominal: NABS x 4 quadrants, soft, nondistended, nontender to palpation, no rebound or guarding Extremities: Normal inspection, no peripheral edema or erythema, calfs nontender to palpation Psych: Denies homicidal or suicidal ideation, depressed mood, anxious affect Neuro: AAO x 3, strength intact bilaterally and rated 5/5, no motor deficits, speech is clear, no peripheral sensory deficits Principal Diagnosis Diabetic ketoacidosis Alcohol use disorder Liver cirrhosis Discharge Data Allergies Allergy/AdvReac Type Severity Reaction Status Date / Time doxycycline Allergy Severe Muscle Pain Verified 09/09/23 14:00 theophylline AdvReac Intermediate VERTIGO Verified 06/10/21 20:50 Consultations 09/09/23 14:45 ED Decision to Admit Stat 09/10/23 17:37 Consult Behavioral Health Liaison Routine Procedures Performed Laboratory Results WBC 5.35 K/ul (4.8-10.8) 09/09/23 12:31 RBC 4.78 M/uL (4.20-5.40) 09/09/23 12:31 Hgb 14.8 g/dl (12.0-16.0) 09/09/23 12:31 Hct 42.7 % (37.0-47.0) 09/09/23 12:31 MCV 89.3 fL (80.0-100.0) 09/09/23 12:31 MCH 31.0 pg (25.0-34.0) 09/09/23 12:31 MCHC 34.7 g/dL (32.0-36.0) 09/09/23 12:31 RDW Std Deviation 46.6 fL (36.4-46.3) H 09/09/23 12: RDW Coeff of Suzanne 14.2 % (11.5-14.5) 09/09/23 12: Plt Count 250 K/uL (130-400) 09/09/23 12: MPV 9.3 fL (9.4-12.4) L 09/09/23 12:31 Immature Gran % (Auto) 0.4 % 09/09/23 12:31 Neut % (Auto) 42.1 % 09/09/23 12: Lymph % (Auto) 50.8 % 09/09/23 12:31 [place] % (Auto) 5.4 % 09/09/23 12:31 Eos % (Auto) 0.4 % 09/09/23 12: Baso % (Auto) 0.9 % 09/09/23 12: Neut # (Auto) 2.25 K/uL (1.40-6.50) 09/09/23 12:31 Lymph # (Auto) 2.72 K/uL (1.20-3.40) 09/09/23 12:31 [place] # (Auto) 0.29 K/uL (0.11-0.59) 09/09/23 12:31 Eos # (Auto) 0.02 K/uL (0.00-0.50) 09/09/23 12:31 Baso # (Auto) 0.05 K/uL (0.00-0.20) 09/09/23 12:31 Immature Gran # (Auto) 0.02 K/uL (0.01-0.20) 09/09/23 12:31 RBC Morphology Unremarkable 09/09/23 12:31 Target Cells 1+ 09/09/23 12:31 PT 12.4 Seconds (9.0-12.0) H 09/09/23 13:24 INR 1.1 (0.9-1.1) 09/09/23 13:24 VBG pH 7.49 (7.36-7.41) H 09/10/23 14:05 VBG pCO2 29 mmHg (38-50) L 09/09/23 20:02 VBG pO2 54 mmHg 09/09/23 20:02 VBG HCO3 18 mmol/L 09/09/23 20:02 VBG O2 Saturation 86.7 % 09/09/23 20:02 VBG Base Excess -5.0 mEq/L 09/09/23 20:02 Sodium 137 mmol/L (136-145) 09/12/23 04:15 Potassium 4.0 mmol/L (3.5-5.1) 09/12/23 04:15 Chloride 104 mmol/L (98-107) 09/12/23 04:15 Carbon Dioxide 25 mmol/L (21-32) 09/12/23 04:15 Anion Gap 8 (3-11) 09/12/23 04:15 BUN 12 mg/dl (6-23) 09/12/23 04:15 Creatinine 0.74 mg/dl (0.6-1.2) 09/12/23 04:15 Est Cr Clr Drug Dosing 94.7 ml/min 09/12/23 04:15 Est GFR ( Amer) 111.8 ml/min 09/12/23 04:15 Est GFR (Non-Af Amer) 96.5 ml/min 09/12/23 04:15 BUN/Creatinine Ratio 16.2 (10-20) 09/12/23 04:15 Glucose 209 mg/dl (70-99(Fasting)) H 09/12/23 04:15 POC Glucose 131 mg/dl (70-99) H 09/12/23 11:53 Estimat Average Glucose 209 mg/dl 09/10/23 01:47 Hemoglobin A1c 8.9 % (4.5-5.6) H 09/10/23 01:47 Osmolality 361 mOsm/kg (280-300) H* 09/09/23 12:31 Calcium 10.4 mg/dl (8.6-10.3) H 09/12/23 04:15 Phosphorus 4.7 mg/dl (2.5-4.9) D 09/12/23 04:15 Magnesium 1.8 mg/dl (1.7-2.4) 09/12/23 04:15 Total Bilirubin 0.6 mg/dl (0.2-1.0) 09/12/23 04:15 Direct Bilirubin TNP 09/09/23 12:31 AST 96 U/L (13-39) H 09/12/23 04:15 ALT 92 U/L (7-52) H 09/12/23 04:15 Alkaline Phosphatase 317 U/L (34-104) H 09/12/23 04:15 Total Protein 7.2 gm/dl (6.0-8.3) 09/12/23 04:15 Albumin 3.9 gm/dl (3.4-5.0) 09/12/23 04:15 Globulin 3.3 gm/dl (2.5-4.0) 09/12/23 04:15 Albumin/Globulin Ratio 1.2 (0.9-2) 09/12/23 04:15 Lipase 46 U/L (11-82) 09/09/23 12:31 TSH 5.922 uIu/ml (0.300-4.500) H 09/09/23 12:31 Free T4 0.80 ng/dl (0.61-1.60) 09/09/23 12:31 HCG, Qual Negative (Negative) 09/09/23 12:31 Urine Color Yellow 09/09/23 12:14 Urine Appearance Clear (Clear) 09/09/23 12:14 Urine pH 6.0 (4.5-7.5) 09/09/23 12:14 Ur Specific [place] 1.008 (1.000-1.030) 09/09/23 12:14 Urine Protein 1+ (Negative) H 09/09/23 12:14 Urine Glucose (UA) 2+ (Negative) H 09/09/23 12:14 Urine Ketones 1+ (Negative) H 09/09/23 12:14 Urine Blood Trace (Negative) H 09/09/23 12:14 Urine Nitrite Negative (Negative) 09/09/23 12:14 Urine Bilirubin Negative (Negative) 09/09/23 12:14 Urine Urobilinogen Negative (Negative) 09/09/23 12:14 Ur Leukocyte Esterase Negative (Negative) 09/09/23 12:14 Urine WBC (Auto) 1-5 /hpf (0-5) 09/09/23 12:14 Urine RBC (Auto) 0-4 /hpf (0-4) 09/09/23 12:14 U Hyaline Cast (Auto) 0 /lpf (0-5) 09/09/23 12:14 U Epithel Cells (Auto) 5-10 /lpf (0-5) H 09/09/23 12:14 Urine Bacteria (Auto) Negative (Negative) 09/09/23 12:14 Ethyl Alcohol mg/dL 257.8 mg/dl (<10.0) H 09/09/23 12:31 SARS-CoV-2, RNA, NAAT NEGATIVE (NEGATIVE) 09/09/23 13:47 Hospital Course (1) DKA (diabetic ketoacidosis): (2) DKA, type 1: (3) Alcoholism: (4) Metabolic acidosis due to diabetes mellitus: (5) Splenomegaly: (6) Anxiety: DKA H/O DM type I H/O pancreatitis so GLP-1 not an option, Jardiance caused vaginitis and unable to tolerate metformin at even very low doses. - Home meds: Novolin 70/30 insulin 35 U breakfast and 15 U dinner, (Pt is more comfortable with this regimen than sliding scale insulin). -Patient has a sensor for glucose on her arm, has it set that when it drops below 100 it alerts for, this is anxiety provoking. BSG 250 on admission, AG 23, bicarb 19, mag 2.3, phos 2.5 and BMP, osm 361 -- Anion gap closed Received IV insulin transition to Also received IV fluids Diabetic education provided Advised to be compliant with insulin use and monitor blood glucose levels regularly H/O Alcohol use Liver cirrhosis Elevated transaminases Alcohol level 257 on admission Was previously on naltrexone, stopped taking this several months ago as the prescription ran out --Liver USD:The liver is enlarged, severely steatotic, and shows morphologic change of cirrhosis. No gallstones are identified.There is mild nonspecific dilatation of the pancreatic duct which measures up to 5 mm. This has increased from the 06/10/2021 examinations and may be related to pancreatic atrophy. GI follow-up is recommended. -- Completed gabapentin protocol Continue thiamine, folic acid Currently not interested in drug rehab placement Consult on multiple occasions to quit drinking Abnormal thyroid function test TSH elevation TSH 5.922 elevated, Free T4 was normal Recheck in 6 weeks to ensure improvement in TSH, likely elevated from the above Anxiety/depression Continue Remeron, lorazepam, BuSpar Psych eval noted Provided counseling CM to provide more resources DVT Px: SQ Heparin CODE STATUS: Full Code Total Time Total Time Spent Total Time Spent (In Minutes): 50 minutes Discharge Plan Discharge Items Patient Disposition: Home - Self-Care Reason For Visit: DKA Discharge Diagnosis: Diabetic ketoacidosis Alcohol use disorder Liver cirrhosis Activity: Per Instructions section Exercise/Sports: Gradually increase as tolerated Non-emergency contact: Primary Care Provider Call non-emergency contact if: you have any medication questions, your symptoms worsen, your pain is concerning for you and you have a fever Follow-up/Referrals: Krystin Graves MD [Primary Care Provider] - (Date & Time 09/17/2023 10:00 AM Provider Doron Hill MD [facility] ) Diet: Carb Count or DM1 Addtl Attending Provider Instructions: Follow-up with your primary care physician on 09/17/2023 10:00 AM --- Quit drinking alcohol as advised -- Monitor your blood glucose regularly and use insulin as advised Seek immediate medical attention if your symptoms reoccur or worsen Please take all medications as instructed on discharge list below. Please call if you have any questions or problems. You can reach a [facility] hospitalist on duty at [facility] 24 hours a day by calling [phone] Pending Studies at Discharge: No Stand-Alone Forms: My [facility] [employer], Smoking Cessation Medications and DC Order Prescriptions: New thiamine HCl (vitamin B1) 100 mg Tablet 100 mg PO QAM Qty: 30 0RF folic acid 1 mg Tablet 1 mg PO QAM Qty: 30 0RF Continued fluticasone propion-salmeterol [Advair Diskus] 250-50 mcg/dose blister with device 1 inh inhalation AMPM albuterol sulfate [Ventolin HFA] 90 mcg/actuation Hfa Aerosol Inhaler 2 puff INHALATION UD PRN (Reason: Shortness Of Breath) Rx Instructions: 2 am, 2 noon, 2 pm, 2 bedtime per pharmacy. Is on hold at pharmacy multivitamin [Daily-Harris] Tablet 1 tab PO QAM Qty: 0 0RF mirtazapine 30 mg tablet 45 mg PO HS buspirone 10 mg tablet 10 mg PO TID Novolin 70/30 U-100 Insulin 100 unit/mL (70-30) suspension See Rx Instructions .ROUTE .COMPLEX Qty: 10 0RF Rx Instructions: Inject subcutaneously 35U with breakfast and 15U with dinner (DME) insulin syringe-needle U-100 1/2 mL 31 gauge x 15/64" syringe See Rx Instructions .Route Qty: 90 0RF Rx Instructions: As directed-inject twice a day loperamide 2 mg Capsule 2 mg PO Q4H PRN (Reason: loose stool) Qty: 30 0RF ibuprofen 800 mg tablet 800 mg PO Q8H PRN (Reason: pain) Qty: 10 0RF ascorbic acid (vitamin C) [Vitamin C] 500 mg Tablet Extended Release 500 mg PO DAILY Potassium Otc 1 tab PO BID lorazepam 0.5 mg tablet 0.5 mg PO TID PRN (Reason: Anxiety) Discharge Orders: Discharge Order (Routine); Ordered 09/12/23 Ordered By: Bucky Servin Admission Data Admit Date/Time: 09/09/23 15:03 Attending Provider: Bucky Servin Admit Provider: Olinda Hernandez Primary Care Provider: Krystin Graves Other Providers: Olinda Hernandez
[2023-09-13] MEDS ORDERED: GABAPENTIN 400 MG CAP PO SCH (05:30)
== END 2023-09-12 14:53 | disposition home or self-care (01) | DRG 896 ==
LOC: ED 11:51 → EDINP 15:03 → SUATTDRO 15:03 → 4W 16:43
DX: K74.60 Unspecified cirrhosis of liver; Z11.52 Encounter for screening for COVID-19; Z88.1 Allergy status to other antibiotic agents; Y90.8 Blood alcohol level of 240 mg/100 ml or more; Z79.4 Long term (current) use of insulin; R16.1 Splenomegaly, not elsewhere classified; R94.6 Abnormal results of thyroid function studies; F10.239 Alcohol dependence with withdrawal, unspecified; Z79.899 Other long term (current) drug therapy; F32.A Depression, unspecified; F41.9 Anxiety disorder, unspecified; Z87.891 Personal history of nicotine dependence; Z91.138 Patient's unintentional underdosing of medication regimen for other reason; Z88.8 Allergy status to other drugs, medicaments and biological substances; Z79.51 Long term (current) use of inhaled steroids; T38.3X6A Underdosing of insulin and oral hypoglycemic [antidiabetic] drugs, initial encounter; Z91.148 Patient's other noncompliance with medication regimen for other reason; J45.909 Unspecified asthma, uncomplicated; E10.10 Type 1 diabetes mellitus with ketoacidosis without coma

== ENCOUNTER 2023-11-26 04:41 | Inpatient (IN) ==
--- NOTE | 2023-11-26 06:09 | Emergency Department Note ---
Impression & Plan DKA (diabetic ketoacidosis), Alcohol withdrawal, Suicidal ideation Admit to the [facility] ED Provider Note NAME: ARIC GRANT AGE: 48 SEX: Female INFORMANT: Patient ED PROVIDER(S): Sophia Cheng DO CHIEF COMPLAINT: Suicidal PLAN: Disposition: Admit to the [facility] MEDICAL DECISION MAKING: this is a 48-year-old female patient with a history of mental health issues who has felt increasingly suicidal with a plan to overdose. Patient feels as if she is currently withdrawing from alcohol as her last drink was sometime yesterday. Up to that point she had been drinking 1-1.5 L of vodka every 24-36 hours. She describes having a history of depression and anxiety. She has no previous history of suicide attempts or inpatient psychiatric hospitalizations. She does have 1 previous alcohol rehab stay at [facility]. patient has not been taking her insulin. Laboratory studies reveal no leukocytosis or anemia. Glucose is 401. Alcohol level was 153. Tylenol and aspirin levels are undetectable. Sodium is 132-corrected sodium is 138. CO2 is 18 anion gap is 23 potassium is 4.6. Renal function is normal. ABG revealed a pH of 7.4, CO2 of 30, O2 of 110, and bicarb of 19 laboratory studies were concerning for diabetic ketoacidosis Given the patient's anion gap and elevated blood sugar. Patient was started on normal saline bolus and given an insulin bolus. She was ordered to have a banana bag for symptoms of alcohol withdrawal along with a dose of IV Ativan. Patient will need to be medically admitted for her hyperglycemia and alcohol withdrawal before she can be admitted for suicidal ideation. I discussed the case with the [facility] and they will evaluate for further inpatient care. Care/management discussed with: ED psychiatric case repairer Triage Nursing notes: reviewed and agree with them. Vital Signs: reviewed and remarkable for tachycardia Chronic Medical/Social Conditions affecting care: alcoholism And insulin- dependent diabetes Differential Diagnosis: mood disorder, suicidal ideation, alcohol abuse, alcohol withdrawal, DKA HPI: 48 year old Female arrives for evaluation of suicidal ideation. patient presents to the emergency department explaining that she has been having thoughts of wanting to harm herself by overdosing on medications at her home. She describes a history of mental health issues such as depression and anxiety. she also describes a history of significant alcohol abuse where she drinks 1- 1.5 L of vodka every 24-36 hours. Drinking heavily since the start of October and stopped drinking yesterday afternoon. She does describe previous episodes of alcohol withdrawal but has never had an alcohol withdrawal seizure. PAST MEDICAL HISTORY: See Below, PAST SURGICAL HISTORY: See Below, SOCIAL HISTORY: See Below, HOME MEDICATIONS: See list ALLERGIES: see list VITALS: See Below PHYSICAL EXAMINATION: HEENT: Head - normocephalic and atraumatic. Pupils are equal, round, and reactive to light. Extraocular eye muscles are intact, and sclera are anicteric. Nose - moist nasal mucosa without discharge. Mouth - moist buccal mucosa. Oropharynx is nonerythematous and there is no tonsillar exudate or edema noted. Neck: Supple; no JVD, nuchal rigidity, cervical lymphadenopathy, or auscultated bruits. Heart: tachycardic rate and rhythm. There is a normal S1 and S2 with no murmurs, clicks, or gallops appreciated. Lungs: Clear to auscultation bilaterally with no wheezes, rales, or rhonchi. Abdomen: Soft, completely nontender, nondistended, with good bowel sounds. There are no palpable pulsatile masses or hepatosplenomegaly. There is no guarding, rigidity, or rebound noted. Extremities: No evidence of cyanosis, clubbing, or edema. There are easily palpable peripheral pulses. Skin: warm and Diaphoretic with good turgor and no rashes. Psych: Patient admits to suicidal thoughts with plans to overdose on medications at her home. She does admit to significant alcohol Abuse. Emergency department treatment: monitor technician, IV normal saline bolus, IV Zofran, IV Ativan, IV insulin, IV banana bag Emergency department course: The patient was evaluated in room A-8. A complete history and physical was performed. Previous electronic medical records were reviewed. An IV lock was initiated and labs were drawn as above. patient was bolused with IV normal saline solution. She was given a dose of IV Zofran and a dose of IV Ativan. She was given a bolus of IV insulin. The patient was started on IV banana bag. I have personally spent greater than 50 minutes of critical care time in the direct management of this patient. This includes bedside care, interpretation of diagnostic studies, and testing, discussion with consultants, patient, and family members, and other required patient management activities. This 50 minutes is in excess of all separately billable procedures. Past Med/Surg History Problem List Suicidal ideation (Acute) Alcohol withdrawal (Acute) DKA (diabetic ketoacidosis) (Acute) History of asthma History of alcohol abuse History of recent fall Alcohol dependence (Acute) Alcohol withdrawal (Acute) Hypophosphatemia DKA (diabetic ketoacidosis) (Acute) Depression with suicidal ideation DKA, type 1 Polycythemia Hypercalcemia Metabolic acidosis due to diabetes mellitus Splenomegaly Hepatic steatosis Anxiety (Acute) Alcoholic hepatitis Nausea and vomiting (Acute) Elevated LFTs (Acute) Depression (Acute) Asthma Neutropenia Gram-positive cocci bacteremia Abscess Metabolic encephalopathy REG (acute kidney injury) Vomiting Elevated LFTs Weakness (Acute) Acute pancreatitis (Acute) REG (acute kidney injury) (Acute) DKA (diabetic ketoacidoses) (Acute) Coffee ground emesis (Acute) Hyperglycemia Alcoholism (Acute) Discharge planning issues MRSA (methicillin resistant Staphylococcus aureus) carrier Acute renal failure (ARF) Electrolyte and fluid disorder Anemia Acute upper GI hemorrhage Urinary tract infection Hypophosphatemia (Acute) Hypokalemia (Acute) Lactic acidosis (Acute) Hypoalbuminemia (Acute) Edema Elevated INR (Acute) Acute liver failure (Acute) Coagulopathy Elevated LFTs (Acute) Tachycardia (Acute) Alcohol abuse (Acute) Asthma Cirrhosis (Acute) GERD (gastroesophageal reflux disease) Abnormal TSH Leukopenia DVT prophylaxis Diabetes Alcohol abuse (Acute) Tremor (Acute) Leukocytopenia, unspecified Thrombocytopenia Anemia Diabetes Pancytopenia Diabetes mellitus type 1 Anxiety (Chronic) Alcohol abuse (Acute) Medical History Acute alcoholic pancreatitis Suicidal ideation Hypophosphatemia Hypomagnesemia Metabolic acidosis Thrush Alcoholic intoxication Thrombocytopenia Alcohol withdrawal Acute alcoholic hepatitis Acidosis, metabolic Acute pancreatitis Electrolyte abnormality DVT prophylaxis Alcohol withdrawal Asthma Surgical History History of dental surgery wisdom teeth History of esophagogastroduodenoscopy (EGD) Family History Father Prediabetes Grandfather (Paternal) Diabetes Mother Hypertension MVP (mitral valve prolapse) Social History Smoking Status: Unknown if ever smoked Tobacco Type: Cigarettes Age Quit Using Tobacco: 39; packs per day: 1; Second Hand Exposure: No; Do You Dip or Chew Tobacco: No; Hx Alcohol Use: Yes Alcohol type: wine Alcohol type Comment: 4 glasses wine daily Hx Substance Use: No Preferred Language: Greenlandic Communication Ability: Effective Visual Impairment: No Limitations Technical Laboratory Asst Required: No Beliefs That Will Affect Care: None marital status: marital status details: Single parent Current Living Situation: Alone Current Living Situation Comment: daughter current occupational status: unemployed How many Children do You have: 1 Feels Safe at Home: Yes Childhood Exposure to Second-Hand Smoke: No Gender Identity: Female Assistive Devices: None Allergies Allergies Allergy/AdvReac Type Severity Reaction Status Date / Time doxycycline Allergy Severe Muscle Pain Verified 11/26/23 08:30 theophylline AdvReac Intermediate VERTIGO Verified 11/26/23 08:30 Home Meds Home Medications Medication Instructions Recorded Confirmed fluticasone 250 mcg-salmeterol 50 1 inh inhalation AMPM 02/27/19 11/26/23 mcg/dose blistr powdr for inhalation (Advair Diskus) albuterol sulfate 90 mcg/actuation 2 puff inhalation UD PRN Shortness 07/23/19 11/26/23 aerosol inhaler (Ventolin HFA) Of Breath ascorbic acid (vitamin C) 500 mg 500 mg PO DAILY 04/05/21 11/26/23 tablet,extended release (Vitamin C ER) buspirone 10 mg tablet 20 mg PO TID 04/22/22 11/26/23 lorazepam 0.5 mg tablet 0.5 mg PO TID PRN Anxiety 09/09/23 11/26/23 escitalopram oxalate 10 mg tablet 10 mg PO QAM 11/26/23 11/26/23 ibuprofen 800 mg tablet 800 mg PO Q8H PRN Pain 11/26/23 11/26/23 insulin aspart 4 - 5 unit subcut TID 11/26/23 11/26/23 (niacinamide)(U-100) 100 unit/mL(3 mL) subcutaneous pen (Fiasp FlexTouch U-100 Insulin) insulin glargine-yfgn 100 unit/mL 32 unit subcut QAM 11/26/23 11/26/23 (3 mL) subcutaneous pen (Semglee (insulin glargine-yfgn) Pen) pen needle, diabetic 32 gauge x 11/26/23 11/26/2332" (BD Ultra-Fine Gertrude Pen Needle) trazodone 50 mg tablet 50 mg PO QPM 11/26/23 11/26/23 Previous Rx's Medication Instructions Recorded multivitamin (Daily-Harris tablet) 1 tab PO QAM #0 tabs 07/27/19 folic acid 1 mg tablet 1 mg PO QAM #30 tabs 09/12/23 thiamine HCl (vitamin B1) 100 mg 100 mg PO QAM #30 tabs 09/12/23 tablet Results & Data (ED) Vital Signs Vital Signs - 24 hr 11/26/23 04:54 11/26/23 05:11 11/26/23 05:11 Pulse Rate 111 H Pulse Rate [Apical] 110 H Pulse Rate from SpO2 Sensor Respiratory Rate 22 Respiratory Effort / Characteristics Respiratory Depth Respiratory Pattern Blood Pressure Blood Pressure [Left Arm] 121/72 Blood Pressure Mean Blood Pressure Mean [Left Arm] 88 Pulse Oximetry 95 Oxygen Delivery Method Room Air Sepsis Recent Fever Within 48 Hours No Sepsis New/Unexplained Change in Mental Status No Sepsis Action Taken by Nursing No Action Required 11/26/23 05:12 11/26/23 06:03 11/26/23 06:51 Pulse Rate 109 H 104 H Pulse Rate [Apical] 106 H Pulse Rate from SpO2 Sensor 110 H 104 H Respiratory Rate 16 16 17 Respiratory Effort / Characteristics Non-Labored Spontaneous Respiratory Depth Normal Respiratory Pattern Regular Blood Pressure 132/83 Blood Pressure [Left Arm] 126/78 Blood Pressure Mean 99 Blood Pressure Mean [Left Arm] 94 Pulse Oximetry 93 94 95 Oxygen Delivery Method Room Air Sepsis Recent Fever Within 48 Hours Sepsis New/Unexplained Change in Mental Status Sepsis Action Taken by Nursing 11/26/23 07:12 Pulse Rate 98 H Pulse Rate [Apical] Pulse Rate from SpO2 Sensor 99 H Respiratory Rate 15 Respiratory Effort / Characteristics Respiratory Depth Respiratory Pattern Blood Pressure 125/76 Blood Pressure [Left Arm] Blood Pressure Mean 92 Blood Pressure Mean [Left Arm] Pulse Oximetry 94 Oxygen Delivery Method Sepsis Recent Fever Within 48 Hours Sepsis New/Unexplained Change in Mental Status Sepsis Action Taken by Nursing Laboratory Data 11/26/23 05:47 11/26/23 05:47 Lab Results 06/11/1311/26/23 11/26/23 Range/Units 05:31 05:47 06:30 WBC 3.44 L (4.8-10.8) K/ul RBC 5.10 (4.20-5.40) M/uL Hgb 15.6 (12.0-16.0) g/dl Hct 44.2 (37.0-47.0) % MCV 86.7 (80.0-100.0) fL MCH 30.6 (25.0-34.0) pg MCHC 35.3 (32.0-36.0) g/dL RDW Std Deviation 44.4 (36.4-46.3) fL RDW Coeff of Suzanne 14.0 (11.5-14.5) % Plt Count 165 (130-400) K/uL MPV 9.2 L (9.4-12.4) fL Immature Gran % (Auto) 0.6 % Neut % (Auto) 65.4 % Lymph % (Auto) 25.0 % Starr % (Auto) 8.1 % Eos % (Auto) 0.3 % Baso % (Auto) 0.6 % Neut # (Auto) 2.25 (1.40-6.50) K/uL Lymph # (Auto) 0.86 L (1.20-3.40) K/uL Starr # (Auto) 0.28 (0.11-0.59) K/uL Eos # (Auto) 0.01 (0.00-0.50) K/uL Baso # (Auto) 0.02 (0.00-0.20) K/uL Immature Gran # (Auto) 0.02 (0.01-0.20) K/uL ABG pH (7.35-7.45) ABG pCO2 (35-46) mmHg ABG pO2 (80-95) mmHg ABG HCO3 (19-24) mmol/L ABG O2 Saturation (90-95) % ABG Base Excess (-9-1.8) mEq/L Raimundo Test (Pos) Oxygen Given Sodium 132 L (136-145) mmol/L Potassium 4.6 (3.5-5.1) mmol/L Chloride 91 L (98-107) mmol/L Carbon Dioxide 18 L (21-32) mmol/L Anion Gap 23 H (3-11) BUN 12 (6-23) mg/dl Creatinine 0.78 (0.6-1.2) mg/dl Est Cr Clr Drug Dosing Not Reportable Est GFR ( Amer) 104.2 ml/min Est GFR (Non-Af Amer) 89.9 ml/min BUN/Creatinine Ratio 15.4 (10-20) Glucose 401 H* (70-99(Fasting)) mg/dl POC Glucose 394 H* (70-99) mg/dl Calcium 10.2 (8.6-10.3) mg/dl Magnesium 1.9 (1.7-2.4) mg/dl Total Bilirubin 1.3 H (0.2-1.0) mg/dl AST 119 H (13-39) U/L ALT 88 H (7-52) U/L Alkaline Phosphatase 260 H (34-104) U/L Total Protein 8.4 H (6.0-8.3) gm/dl Albumin 4.8 (3.4-5.0) gm/dl Globulin 3.6 (2.5-4.0) gm/dl Albumin/Globulin Ratio 1.3 (0.9-2) TSH 6.678 H (0.300-4.500) uIu/ml Free T4 0.74 (0.61-1.60) ng/dl Urine Color Yellow Urine Appearance Clear (Clear) Urine pH 6.5 (4.5-7.5) Ur Specific [place] 1.024 (1.000-1.030) Urine Protein 1+ H (Negative) Urine Glucose (UA) 3+ H (Negative) Urine Ketones 2+ H (Negative) Urine Blood Negative (Negative) Urine Nitrite Negative (Negative) Urine Bilirubin Negative (Negative) Urine Urobilinogen Negative (Negative) Ur Leukocyte Esterase Trace H (Negative) Urine WBC (Auto) 6-10 H (0-5) /hpf Urine RBC (Auto) 0-2 (0-2) /hpf U Hyaline Cast (Auto) 0-2 (0-2) /lpf U Epithel Cells (Auto) 0-2 (0-2) /hpf Urine Bacteria (Auto) None Seen (None Seen) Salicylates < 3.0 L (3.0-30) mg/dl Urine Opiates Screen Neg (Neg) Ur Methadone, Qual Neg (Neg) Urine Fentanyl Screen Neg (Neg) Acetaminophen < 3 L (10-30) ug/ml Urine Barbiturates Neg (Neg) Ur Phencyclidine (PCP) Neg (Neg) U Amphetamin/Meth Scrn Neg (Neg) MDMA (Ecstasy) Screen Neg (Neg) U Benzodiazepines Scrn Neg (Neg) Ur Cocaine Metabolite Neg (Neg) U Marijuana (THC) Screen Neg (Neg) Ethyl Alcohol mg/dL 153.0 H (<10.0) mg/dl 11/26/23 Range/Units 07:33 WBC (4.8-10.8) K/ul RBC (4.20-5.40) M/uL Hgb (12.0-16.0) g/dl Hct (37.0-47.0) % MCV (80.0-100.0) fL MCH (25.0-34.0) pg MCHC (32.0-36.0) g/dL RDW Std Deviation (36.4-46.3) fL RDW Coeff of Suzanne (11.5-14.5) % Plt Count (130-400) K/uL MPV (9.4-12.4) fL Immature Gran % (Auto) % Neut % (Auto) % Lymph % (Auto) % Starr % (Auto) % Eos % (Auto) % Baso % (Auto) % Neut # (Auto) (1.40-6.50) K/uL Lymph # (Auto) (1.20-3.40) K/uL Starr # (Auto) (0.11-0.59) K/uL Eos # (Auto) (0.00-0.50) K/uL Baso # (Auto) (0.00-0.20) K/uL Immature Gran # (Auto) (0.01-0.20) K/uL ABG pH 7.40 (7.35-7.45) ABG pCO2 30 L (35-46) mmHg ABG pO2 110 H (80-95) mmHg ABG HCO3 19 (19-24) mmol/L ABG O2 Saturation 98.6 H (90-95) % ABG Base Excess -5.0 (-9-1.8) mEq/L Raimundo Test Pos (Pos) Oxygen Given ROOM AIR Sodium (136-145) mmol/L Potassium (3.5-5.1) mmol/L Chloride (98-107) mmol/L Carbon Dioxide (21-32) mmol/L Anion Gap (3-11) BUN (6-23) mg/dl Creatinine (0.6-1.2) mg/dl Est Cr Clr Drug Dosing Est GFR ( Amer) ml/min Est GFR (Non-Af Amer) ml/min BUN/Creatinine Ratio (10-20) Glucose (70-99(Fasting)) mg/dl POC Glucose (70-99) mg/dl Calcium (8.6-10.3) mg/dl Magnesium (1.7-2.4) mg/dl Total Bilirubin (0.2-1.0) mg/dl AST (13-39) U/L ALT (7-52) U/L Alkaline Phosphatase (34-104) U/L Total Protein (6.0-8.3) gm/dl Albumin (3.4-5.0) gm/dl Globulin (2.5-4.0) gm/dl Albumin/Globulin Ratio (0.9-2) TSH (0.300-4.500) uIu/ml Free T4 (0.61-1.60) ng/dl Urine Color Urine Appearance (Clear) Urine pH (4.5-7.5) Ur Specific [place] (1.000-1.030) Urine Protein (Negative) Urine Glucose (UA) (Negative) Urine Ketones (Negative) Urine Blood (Negative) Urine Nitrite (Negative) Urine Bilirubin (Negative) Urine Urobilinogen (Negative) Ur Leukocyte Esterase (Negative) Urine WBC (Auto) (0-5) /hpf Urine RBC (Auto) (0-2) /hpf U Hyaline Cast (Auto) (0-2) /lpf U Epithel Cells (Auto) (0-2) /hpf Urine Bacteria (Auto) (None Seen) Salicylates (3.0-30) mg/dl Urine Opiates Screen (Neg) Ur Methadone, Qual (Neg) Urine Fentanyl Screen (Neg) Acetaminophen (10-30) ug/ml Urine Barbiturates (Neg) Ur Phencyclidine (PCP) (Neg) U Amphetamin/Meth Scrn (Neg) MDMA (Ecstasy) Screen (Neg) U Benzodiazepines Scrn (Neg) Ur Cocaine Metabolite (Neg) U Marijuana (THC) Screen (Neg) Ethyl Alcohol mg/dL (<10.0) mg/dl Administered Medications Buspirone HCl (Buspirone 5 Mg Tab) 20 mg PO TID ARMANI Stop: 12/26/23 13:59 Last Admin: 11/26/23 14:51 Dose: 20 mg Documented By: CASTILLO Sodium Chloride (Nss) 1,000 mls @ 125 mls/hr IV .Q8H ARMANI Stop: 11/26/23 22:13 Last Admin: 11/26/23 14:51 Dose: 125 mls/hr Documented By: CASTILLO Insulin Aspart (Insulin Aspart Per Unit Charge) 0 units SC Q6 ARMANI Stop: 12/26/23 09:14 Last Admin: 11/26/23 12:16 Dose: 4 units Documented By: CASTILLO Co-signed By: DEON Admin: 11/26/23 09:39 Dose: Not Given Documented By: FELIZ Discontinued Medications Gabapentin (Gabapentin 600 Mg Tab) 1,200 mg PO NOW ONE Stop: 11/26/23 14:15 Last Admin: 11/26/23 14:55 Dose: 1,200 mg Documented By: CASTILLO Multivitamins 10 ml/ Thiamine HCl 100 mg/ Folic Acid 1 mg/Sodium Chloride 1,011.2 mls @ 500 mls/hr IV .Q2H2M ONE Stop: 11/26/23 07:46 Last Infusion: 11/26/23 11:14 Dose: Infused Documented By: Admin: 11/26/23 07:32 Dose: 500 mls/hr Documented By: FELIZ Sodium Chloride (Nss) 1,000 mls @ 999 mls/hr IV .Q1H1M ONE Stop: 11/26/23 07:52 Last Infusion: 11/26/23 11:14 Dose: Infused Documented By: Admin: 11/26/23 07:05 Dose: 999 mls/hr Documented By: FELIZ Promethazine HCl (Phenergan) 6.25 mg in 50.25 mls @ 201 mls/hr IV NOW STA Stop: 11/26/23 11:10 Last Infusion: 11/26/23 11:54 Dose: Infused Documented By: Admin: 11/26/23 11:30 Dose: 201 mls/hr Documented By: CASTILLO Insulin Glargine (Lantus Per Unit Charge) 10 units SC ONE ONE Stop: 11/26/23 09:31 Last Admin: 11/26/23 09:35 Dose: 10 units Documented By: FELIZ Co-signed By: ARMIDA Insulin Human Regular (Novolin-R Insulin Per Unit Charge) 7 units IV NOW STA Stop: 11/26/23 07:22 Last Admin: 11/26/23 07:32 Dose: 7 units Documented By: ARS Co-signed By: ARMIDA Lorazepam (Lorazepam 1 Mg/1 Ml Syr Ed Inj Use) 0.5 mg IV ONE STA Stop: 11/26/23 06:53 Last Admin: 11/26/23 07:06 Dose: 0.5 mg Documented By: FELIZ Lorazepam (Lorazepam 1 Mg/1 Ml Syr Ed Inj Use) 0.5 mg IV ONE STA Stop: 11/26/23 10:54 Last Admin: 11/26/23 11:30 Dose: 0.5 mg Documented By: CASTILLO Lorazepam (Lorazepam 1 Mg/1 Ml Syr Ed Inj Use) Confirm Administered Dose 1 mg .ROUTE .STK-MED ONE Stop: 11/26/23 10:58 Last Admin: 11/26/23 11:37 Dose: Not Given Documented By: CASTILLO Ondansetron HCl (Ondansetron Inj 2 Mg/Ml 2 Ml Vial) 4 mg IV NOW STA Stop: 11/26/23 06:53 Last Admin: 11/26/23 07:06 Dose: 4 mg Documented By: FELIZ Ondansetron HCl (Ondansetron Inj 2 Mg/Ml 2 Ml Vial) 4 mg IV NOW STA Stop: 11/26/23 09:00 Last Admin: 11/26/23 09:14 Dose: 4 mg Documented By: FELIZ Ondansetron HCl (Ondansetron Inj 2 Mg/Ml 2 Ml Vial) Confirm Administered Dose 4 mg .ROUTE .STK-MED ONE Stop: 11/26/23 09:11 Last Admin: 11/26/23 09:16 Dose: Not Given Documented By: FELIZ Discharge Plan Visit Data Chief Complaint: Alcohol Withdrawal Stated Complaint: ALCOHOL WITHDRAWAL, SI, ANXIETY, DEPRESSION ED Provider: Sophia Cheng Discharge Problem: DKA (diabetic ketoacidosis), Alcohol withdrawal, Suicidal ideation Discharge Instructions Interventions: ED Discharge Assessment Last Done: 11/26/23 14:15
[2023-11-26 06:23] LABS: Basophils # (auto) 0.02 K/uL (0.00-0.20); Basophils % (auto) 0.6 %; Eosinophils # (auto) 0.01 K/uL (0.00-0.50); Eosinophils % (auto) 0.3 %; Hematocrit (blood only) 44.2 % (37.0-47.0); Hemoglobin 15.6 g/dl (12.0-16.0); Immature Granulocytes # (auto) 0.02 K/uL (0.01-0.20); Immature Granulocytes % (auto) 0.6 %; Lymphocytes # (auto) 0.86 K/uL (1.20-3.40); Mean Corpuscular Hemoglobin 30.6 pg (25.0-34.0); Mean Corpuscular Hgb Conc 35.3 g/dL (32.0-36.0); Mean Corpuscular Volume 86.7 fL (80.0-100.0); Mean Platelet Volume 9.2 fL (9.4-12.4); Monocytes # (auto) 0.28 K/uL (0.11-0.59); Monocytes % (auto) 8.1 %; Neutrophils # (auto) 2.25 K/uL (1.40-6.50); Neutrophils % (auto) 65.4 %; Platelet Count 165 K/uL (130-400); RDW Standard Deviation 44.4 fL (36.4-46.3); White Blood Count 3.44 K/ul (4.8-10.8)
[2023-11-26 06:48] LABS: Acetaminophen < 3 ug/ml (10-30); Salicylate < 3.0 mg/dl (3.0-30)
[2023-11-26 06:49] LABS: Alanine Aminotransferase 88 U/L (7-52); Albumin Globulin Ratio 1.3 (0.9-2); Albumin Level 4.8 gm/dl (3.4-5.0); Alkaline Phosphatase 260 U/L (34-104); Anion Gap 23 (3-11); Aspartate Aminotransferase 119 U/L (13-39); BUN Creatinine Ratio 15.4 (10-20); Bilirubin,Total 1.3 mg/dl (0.2-1.0); Blood Urea Nitrogen 12 mg/dl (6-23); Calcium 10.2 mg/dl (8.6-10.3); Carbon Dioxide 18 mmol/L (21-32); Chloride 91 mmol/L (98-107); Est GFR (African American) 104.2 ml/min; Est GFR (Non-African American) 89.9 ml/min; Globulin 3.6 gm/dl (2.5-4.0); Glucose 401 mg/dl (70-99(Fasting)); Magnesium 1.9 mg/dl (1.7-2.4); Potassium 4.6 mmol/L (3.5-5.1); Sodium 132 mmol/L (136-145); Total Protein 8.4 gm/dl (6.0-8.3)
[2023-11-26] MEDS: SODIUM CHLORIDE 0.9% 1,000 ML IV ONE (07:05)
[2023-11-26 07:06] LABS: Thyroid Stimulating Hormone 6.678 uIu/ml (0.300-4.500)
[2023-11-26] MEDS: ONDANSETRON INJ 2 MG/ML 2 ML VIAL IV STA ×2 (07:06→09:14)
[2023-11-26] MEDS: LORazepam 1 MG/1 ML SYR ED Inj Use IV STA ×2 (07:06→11:30)
[2023-11-26] MEDS: MULTI-VITAMIN INFUSION 10 ML, THIAMINE HCL 100 MG, FOLIC ACID 1 MG in SODIUM CHLORIDE 0... IV ONE (07:32)
[2023-11-26] MEDS: NovoLIN-R INSULIN PER UNIT CHARGE IV STA (07:32)
[2023-11-26 07:39] LABS: Appearance Urine Clear (Clear); Bacteria Urine Automated None Seen (None Seen); Bilirubin Urine Negative (Negative); Blood Urine Negative (Negative); Cast Urine Automated 0-2 /lpf (0-2); Color Urine Yellow; Epithelial Cell Urine Auto 0-2 /hpf (0-2); Glucose Urine UA 3+ (Negative); Ketones Urine 2+ (Negative); Leukocyte Esterase Urine Trace (Negative); Nitrite Urine Negative (Negative); Protein Urine 1+ (Negative); RBC Urine Automated 0-2 /hpf (0-2); Specific Gravity Urine 1.024 (1.000-1.030); Urobilinogen Urine Negative (Negative); pH Urine 6.5 (4.5-7.5)
[2023-11-26 07:40] LABS: HCO3 ABG 19 mmol/L (19-24); Oxygen Saturation ABG 98.6 % (90-95); PCO2 ABG 30 mmHg (35-46); PO2 ABG 110 mmHg (80-95)
[2023-11-26 07:43] LABS: Allen Test Pos (Pos)
[2023-11-26 07:51] LABS: T4 Free Thyroxine 0.74 ng/dl (0.61-1.60)
[2023-11-26] MEDS ORDERED: PHARMACY GLYCEMIC MGMT CONSULT PRN (07:52)
--- NOTE | 2023-11-26 08:34 | History & Physical Report ---
Date of Service November 26, 2023 Assessment & Plan (1) Alcohol withdrawal: Plan: Marcus Avelar is a 48y/o F with PMHx of alcohol abuse, alcohol withdrawal, pancreatitis, BHU admission for suicidal ideations, type I DM, splenomegaly, hepatic steatosis, asthma, GI bleed and other problems listed below who presents to the ED for evaluation of suicidal ideations and alcohol withdrawal symptoms. Found to be actively withdrawing from alcohol. Of note, patient was recently hospitalized here @ [facility] from 09/09/23-09/12/23 w/ principal diagnoses of DKA, alcohol use disorder and liver cirrhosis. Per that discharge summary, patient has previously been noncompliant with insulin therapy . She was also hospitalized from 07/02/23-07/04/23 here @ [facility] for severe DKA, DM type I as well. Following that most recent hospitalization, it appears patient was open to discussing inpatient rehab for alcohol detoxification as well as psychiatric outpatient therapy. Patient does have a prominent psychiatric history. Per most previous discharge summary, patient was taking BuSpar 3 times daily and mirtazapine at bedtime. It is documented that she has tried Celexa in the past, but ultimately did not tolerate this medication and subsequently has been taking mirtazapine instead. Appears from previous documentation that the patient's drinks of choice include vodka and wine. It is also evident that the patient has suffered from anxiety attacks in the past. It has been previously documented that the patient is aware of her need to stop drinking alcohol. Labs performed in the ED displayed the following: * NO evidence of anemia --> RBC 5.10, Hgb 15.6, Hct 44.2 and Plt Count 165. * Slightly hyponatremic @ 132, potassium w/in normal range @ 4.6, chloride slightly decreased @ 91. * CO2 18, anion gap 23 --> Appears to have METABOLIC ACIDOSIS on admission. * Evidence of transaminitis - total bili 1.3, AST 119, ALT 88 and Alk Phos 260. * TSH slightly elevated @ 6.678, however free T4 w/in normal range --> 0.74. Glucose 401 on arrival to ED, downtrended to 225 ~9am following administration of insulin in the ED. ABG = pH 7.40, pCO2 30, pO2 110, HCO3 19 and O2 sat 98.6%. --> NO evidence of DKA on admission given those lab findings UA conducted in the ED revealed the followin+ protein, 3+ glucose, 2+ ketones, trace leukocyte esterase and WBC 6-10. Tox screen displays evidence of ethyl alcohol (153.0), but is otherwise negative. --> No evidence of acetaminophen or salicylate toxicity, negative for any illicit drugs. Patient administered the following in the ED: 8mg IV Zofran, banana bag, 0.5mg IV Ativan, 10 units insulin glargine, 7 units insulin human regular and 1L NSS. * She was continually dry heaving and feeling nauseous throughout our conversation, so I did order an additional 4 mg IV dose of Zofran to be given in the ED. * Did order an EKG to establish baseline findings, QTc duration. Patient reports that her last drink was yesterday. States she last consumed 1 bottle of vodka and 1 bottle of wine. Feels she is currently withdrawing from alcohol, reports increasing severity of extremity tremors. -Alcohol withdrawal protocol in place, will receive an additional 1L NSS upon transfer. -NPO for now given current nausea, can advance diet as tolerated --> order in place. Continue thiamine & folate. -PRN IV Zofran for breakthrough N/V; will hold off on PRN Tylenol order for now given hx of cirrhosis, alcohol abuse. -Gabapentin protocol in place according to alcohol withdrawal guidelines. Bowel regimen in place, PRN Miralax. -Repeat CBC (w diff), CMP and Mag in AM --> Trend LFTs and continue to monitor electrolytes, replace as needed. -Could potentially consider rehab placement upon d/c, appears she has been disinterested with doing so in the past (according to previous documentation). (2) Diabetes mellitus type 1: (3) Metabolic acidosis due to diabetes mellitus: Plan: Glucose 401 on arrival to ED, downtrended to 225 ~9am following administration of insulin in the ED. ABG = pH 7.40, pCO2 30, pO2 110, HCO3 19 and O2 sat 98.6%. --> NO evidence of DKA on admission given those lab findings UA conducted in the ED revealed the followin+ protein, 3+ glucose, 2+ ketones, trace leukocyte esterase and WBC 6-10. Per discharge summary in August, patient has previously been noncompliant with insulin therapy. She reports that her glucose levels are generally in the upper 200s at baseline. Will hold AGENT insulin therapy while hospitalized, glycemic pharmacy consulted for inpatient insulin regimen. -Glycemic protocol initiated by pharmacy, insulin regimen is in place per their discretion. family educator consulted --> Appreciate input/recommendations. -Hx of pancreatitis so GLP-1 not an option, Jardiance caused vaginitis and unable to tolerate metformin (even at very low doses). -Continue to closely monitor blood glucose levels, ensure anion gap closure. --> Repeat CMP in AM to trend anion gap. (4) History of alcohol abuse: (5) Cirrhosis: (6) Elevated LFTs: Plan: Patient reports that her last drink was yesterday. States she last consumed 1 bottle of vodka and 1 bottle of wine. Feels she is currently withdrawing from alcohol, reports increasing severity of extremity tremors. Evidence of transaminitis on admission --> Total bili 1.3, AST 119, ALT 88 and Alk Phos 260. According to previous hospitalization documentation, it appears she was naltrex one in the past. She previously had a liver U/S done during her admission in June (07/04/23) which revealed the following: * Liver is enlarged, severely steatotic and shows morphologic changes of cirrhosis. * No gallstones. Mild nonspecific dilatation of the pancreatic duct measuring up to 5mm, which increased from her previous liver U/S on 06/10/21, and may be related to pancreatic atrophy. Appears patient was supposed to f/u with GI following d/c in August, but has not yet done so. She does have an appt w/ [facility] on 03/16/24 according to [facility] records. Tox screen displays evidence of ethyl alcohol (153.0), but is otherwise negative. --> No evidence of acetaminophen or salicylate toxicity, negative for any illicit drugs. -Could consider contacting GI services while she is admitted given previous findings above, but did not place order to do so yet. -Will continue to monitor electrolytes and replete as needed. Alcohol level 153 on admission as per above. -Continue folate, thiamine. Alcohol withdrawal protocol in place. Repeat CMP in AM --> Trend LFTs. (7) Depression with suicidal ideation: Plan: As per HPI: States she was suicidal at home, had plans to overdose on ibuprofen and acetaminophen. Reports that she did not take any of those medications at home, but was considering it. Patient mentions that her psychiatric medication regimen was subsequently changed following her most recent discharge in August. She reports that she is now currently taking Lexapro, trazodone and BuSpar. Patient states that these medications seem to be working better than her previous regimen of mirtazapine and Celexa. However, she has noticed an increase in her feelings of depression and anxiety. States she has "a lot of things going on" and cannot manage herself appropriately at home. Previously, patient was taking BuSpar 3 times daily and mirtazapine at bedtime. Tox screen displays evidence of ethyl alcohol (153.0), but is otherwise negative. --> No evidence of acetaminophen or salicylate toxicity, negative for any illicit drugs. -Will continue AGENT Lexapro, trazodone and BuSpar for now. -Continue to closely monitor patient for any acute behavioral changes. -Psychiatry consult placed, appreciate their recommendations/input moving forward. * Patient is aware and agreeable to seeing psych throughout her hospitalization. * As per HPI, patient states she "wants to feel better" in regard to her alcohol withdrawal symptoms in order to address her mental health concerns. -Patient may need inpatient psychiatric rehabilitation upon d/c, CM to provide more resources. -Encourage cognitive behavioral therapy and f/u with a therapist in the outpatient setting. (8) Abnormal TSH: Plan: As per above, TSH slightly elevated @ 6.678, however free T4 w/in normal range --> 0.74. -Will hold off on rechecking TSH in AM, as it is likely elevated given the whole situation at hand. --> ? Sick thyroid ? -Consider rechecking her TSH level sometime in the following weeks after d/c (~6 weeks). (9) History of asthma: Plan: SpO2 currently 94% on RA --> No evidence of SOB, wheezing. No acute respiratory concerns at this time. -Continue AGENT PRN albuterol inhaler and daily Advair Diskus therapy. * Make sure patient is properly rinsing out her mouth after Advair Diskus use to prevent thrush. (10) History of recent fall: Plan: As per HPI: Patient does endorse a fall over the past weekend during which she hit her head. Patient denies ever losing consciousness, but does states she had a bump on the right side of her SOB. Has been complaining of some intermittent dizziness, blurry vision since then. Denies any other fall or difficulty with ambulation. -Physical examination was benign, as per below --> No focal or visual deficits. -Will order head CT to r/o any acute concerns, establish baseline findings as a precautionary measure. DVT Prophylaxis: SCDs - For now. * Was on SQ heparin during her most recent admission in August. Code Status: Full Code PCP: Krystin Graves MD Dispo: Admit to PCU/Telemetry Patient seen in collaboration with Dr. Vasquez. Please see addendum. I spent a total of 75 minutes coordinating, documenting, and providing care for this patient excluding time spent in the performance of separately billed services. This included personally reviewing all current laboratories and imaging studies, medical reconciliation, outpatient chart review and discussion with specialists. This chart was completed in part utilizing Speech Voice Recognition Software. Grammatical errors, random word insertions, pronoun errors, and incomplete sentences are an occasional consequence of this system due to software limitations, ambient noise, and hardware issues. Any formal questions or concerns about the content, text, or information contained within the body of this dictation should be directly addressed to the provider for clarification. History of Present Illness Chief Complaint: Suicidal Ideations, Alcohol Withdrawal Primary Care Provider: Krystin Graves MD Marcus Avelar is a 48y/o F with PMHx of alcohol abuse, alcohol withdrawal, pancreatitis, BHU admission for suicidal ideations, type I DM, splenomegaly, hepatic steatosis, asthma, GI bleed and other problems listed below who presents to the ED for evaluation of suicidal ideations and alcohol withdrawal symptoms. History obtained from patient, and associated ED/previous hospitalization/PCP records. Of note, patient was recently hospitalized here @ [facility] from 09/09/23-09/12/23 w/ principal diagnoses of DKA, alcohol use disorder and liver cirrhosis. Per that discharge summary, patient has previously been noncompliant with insulin therapy . She was also hospitalized from 07/02/23-07/04/23 here @ [facility] for severe DKA, DM type I as well. Following that most recent hospitalization, it appears patient was open to discussing inpatient rehab for alcohol detoxification as well as psychiatric outpatient therapy. Patient does have a prominent psychiatric history. Per most previous discharge summary, patient was taking BuSpar 3 times daily and mirtazapine at bedtime. It is documented that she has tried Celexa in the past, but ultimately did not tolerate this medication and subsequently has been taking mirtazapine instead. Appears from previous documentation that the patient's drinks of choice include vodka and wine. It is also evident that the patient has suffered from anxiety attacks in the past. It has been previously documented that the patient is aware of her need to stop drinking alcohol. Patient seen at bedside. Patient reports that her last drink was yesterday. States she last consumed 1 bottle of vodka and 1 bottle of wine. Feels she is currently withdrawing from alcohol, reports increasing severity of extremity tremors. She is requesting something for the shakiness/tremors. States she was suicidal at home, had plans to overdose on ibuprofen and acetaminophen. Reports that she did not take any of those medications at home, but was considering it. Patient mentions that her psychiatric medication regimen was subsequently changed following her most recent discharge in August. She reports that she is now currently taking Lexapro, trazodone and BuSpar. Patient states that these medications seem to be working better than her previous regimen of mirtazapine and Celexa. However, she has noticed an increase in her feelings of depression and anxiety. States she has "a lot of things going on" and cannot manage herself appropriately at home. Patient does live alone in an apartment with her cat. States her parents live approximately [address] She would like to get in contact with her parents, as they will need to attend to her cat and apartment. She has made her boss aware that she was planning on coming to the hospital today. She was brought into the ED today via EMS, she reports calling 911 herself to avoid overdosing as per above. She was continually dry heaving and feeling nauseous throughout our conversation, so I did order an additional 4 mg IV dose of Zofran to be given in the ED. She denies any previous episodes of vomiting AGENT, but has vomited "a little bit" in the ED. Patient does endorse a fall over the past weekend during which she hit her head. Patient denies ever losing consciousness, but does states she had a bump on the right side of her SOB. Has been complaining of some intermittent dizziness, blurry vision since then. Denies any other falls. She does have a history of asthma, but states she is currently well-controlled on Advair therapy. She has not noticed herself wheezing at all. Reports no recent illnesses or sick contacts. She denies any abdominal pain or bowel/urinary habit changes. Patient understanding of need for psychiatric intervention at this point. States she "wants to feel better" in regard to her alcohol withdrawal symptoms in order to address her mental health concerns. Labs performed in the ED displayed the following: * NO evidence of anemia --> RBC 5.10, Hgb 15.6, Hct 44.2 and Plt Count 165. * Slightly hyponatremic @ 132, potassium w/in normal range @ 4.6, chloride slightly decreased @ 91. * CO2 18, anion gap 23 --> Appears to have METABOLIC ACIDOSIS on admission. * Evidence of transaminitis - total bili 1.3, AST 119, ALT 88 and Alk Phos 260. * TSH slightly elevated @ 6.678, however free T4 w/in normal range --> 0.74. Glucose 401 on arrival to ED, downtrended to 225 ~9am following administration of insulin in the ED. ABG = pH 7.40, pCO2 30, pO2 110, HCO3 19 and O2 sat 98.6%. --> NO evidence of DKA on admission given those lab findings UA conducted in the ED revealed the followin+ protein, 3+ glucose, 2+ ketones, trace leukocyte esterase and WBC 6-10. Tox screen displays evidence of ethyl alcohol (153.0), but is otherwise negative. --> No evidence of acetaminophen or salicylate toxicity, negative for any illicit drugs. Allergies Allergy/AdvReac Type Severity Reaction Status Date / Time doxycycline Allergy Severe Muscle Pain Verified 11/26/23 08:30 theophylline AdvReac Intermediate VERTIGO Verified 11/26/23 08:30 Home Medications Medication Instructions Recorded Confirmed Type fluticasone 250 mcg-salmeterol 50 1 inh inhalation AMPM 02/27/19 11/26/23 History mcg/dose blistr powdr for inhalation (Advair Diskus) albuterol sulfate 90 mcg/actuation 2 puff inhalation UD PRN Shortness 07/23/19 11/26/23 History aerosol inhaler (Ventolin HFA) Of Breath multivitamin (Daily-Harris tablet) 1 tab PO QAM #0 tabs 07/27/19 11/26/23 Rx ascorbic acid (vitamin C) 500 mg 500 mg PO DAILY 04/05/21 11/26/23 History tablet,extended release (Vitamin C ER) buspirone 10 mg tablet 20 mg PO TID 04/22/22 11/26/23 History lorazepam 0.5 mg tablet 0.5 mg PO TID PRN Anxiety 09/09/23 11/26/23 History folic acid 1 mg tablet 1 mg PO QAM #30 tabs 09/12/23 11/26/23 Rx thiamine HCl (vitamin B1) 100 mg 100 mg PO QAM #30 tabs 09/12/23 11/26/23 Rx tablet escitalopram oxalate 10 mg tablet 10 mg PO QAM 11/26/23 11/26/23 History ibuprofen 800 mg tablet 800 mg PO Q8H PRN Pain 11/26/23 11/26/23 History insulin aspart 4 - 5 unit subcut TID 11/26/23 11/26/23 History (niacinamide)(U-100) 100 unit/mL(3 mL) subcutaneous pen (Fiasp FlexTouch U-100 Insulin) insulin glargine-yfgn 100 unit/mL 32 unit subcut QAM 11/26/23 11/26/23 History (3 mL) subcutaneous pen (Semglee (insulin glargine-yfgn) Pen) pen needle, diabetic 32 gauge x 11/26/23 11/26/23 History 5/32" (BD Ultra-Fine Gertrude Pen Needle) trazodone 50 mg tablet 50 mg PO QPM 11/26/23 11/26/23 History Past Med/Surg History Problem List Suicidal ideation (Acute) Alcohol withdrawal (Acute) DKA (diabetic ketoacidosis) (Acute) History of asthma History of alcohol abuse History of recent fall Alcohol dependence (Acute) Alcohol withdrawal (Acute) Hypophosphatemia DKA (diabetic ketoacidosis) (Acute) Depression with suicidal ideation DKA, type 1 Polycythemia Hypercalcemia Metabolic acidosis due to diabetes mellitus Splenomegaly Hepatic steatosis Anxiety (Acute) Alcoholic hepatitis Nausea and vomiting (Acute) Elevated LFTs (Acute) Depression (Acute) Asthma Neutropenia Gram-positive cocci bacteremia Abscess Metabolic encephalopathy REG (acute kidney injury) Vomiting Elevated LFTs Weakness (Acute) Acute pancreatitis (Acute) REG (acute kidney injury) (Acute) DKA (diabetic ketoacidoses) (Acute) Coffee ground emesis (Acute) Hyperglycemia Alcoholism (Acute) Discharge planning issues MRSA (methicillin resistant Staphylococcus aureus) carrier Acute renal failure (ARF) Electrolyte and fluid disorder Anemia Acute upper GI hemorrhage Urinary tract infection Hypophosphatemia (Acute) Hypokalemia (Acute) Lactic acidosis (Acute) Hypoalbuminemia (Acute) Edema Elevated INR (Acute) Acute liver failure (Acute) Coagulopathy Elevated LFTs (Acute) Tachycardia (Acute) Alcohol abuse (Acute) Asthma Cirrhosis (Acute) GERD (gastroesophageal reflux disease) Abnormal TSH Leukopenia DVT prophylaxis Diabetes Alcohol abuse (Acute) Tremor (Acute) Leukocytopenia, unspecified Thrombocytopenia Anemia Diabetes Pancytopenia Diabetes mellitus type 1 Anxiety (Chronic) Alcohol abuse (Acute) Medical History Acute alcoholic pancreatitis Suicidal ideation Hypophosphatemia Hypomagnesemia Metabolic acidosis Thrush Alcoholic intoxication Thrombocytopenia Alcohol withdrawal Acute alcoholic hepatitis Acidosis, metabolic Acute pancreatitis Electrolyte abnormality DVT prophylaxis Alcohol withdrawal Asthma Surgical History History of dental surgery wisdom teeth History of esophagogastroduodenoscopy (EGD) Family History Father Prediabetes Grandfather (Paternal) Diabetes Mother Hypertension MVP (mitral valve prolapse) Social History Smoking Status: Unknown if ever smoked Tobacco Type: Cigarettes Age Quit Using Tobacco: 39; packs per day: 1; Second Hand Exposure: No; Do You Dip or Chew Tobacco: No; Hx Alcohol Use: Yes Alcohol type: wine Alcohol type Comment: 4 glasses wine daily Hx Substance Use: No Preferred Language: Malay Communication Ability: Effective Visual Impairment: No Limitations Occupational Health Professional Required: No Beliefs That Will Affect Care: None marital status: marital status details: Single parent Current Living Situation: Alone Current Living Situation Comment: daughter current occupational status: unemployed How many Children do You have: 1 Feels Safe at Home: Yes Childhood Exposure to Second-Hand Smoke: No Gender Identity: Female Assistive Devices: None Review of Systems Review of Systems: At least ten systems reviewed and negative, except as noted in the HPI. Physical Exam Physical Exam: General Appearance: Conversing appropriately, tremulous behavior in all extremities. Head: Normocephalic, atraumatic. Eyes: Normal inspection, PERRL, conjunctivae normal, anicteric sclerae. ENT: External ear and nose normal, oropharynx normal. Neck: Normal visual inspection, trachea midline, no thyromegaly. Respiratory: Normal respiratory effort, lungs clear to auscultation, no wheezing, rales, rhonchi. No accessory muscle use. Cardiovascular: Tachycardic, regular rhythm, no murmur, normal peripheral pulses, no BLE edema. Vessels: No JVD. Chest: Normal inspection of chest. Abdomen/GI: Normal bowel sounds, soft, nontender, no hepatosplenomegaly. Extremities/Musculoskeletal: No cyanosis or clubbing, extremities motor strength 5/5. Neurologic: PERRL, EOMI, accommodation nl, no face palsy, no dysarthria, CN's I I-XI intact bilaterally and moves all extremities Psychiatric: A+Ox3, nervous affect. Admits to suicidal thoughts, significant alcohol use as per above. Skin: No rashes, normal color, warm/dry. Results & Data Results & Data Vital Signs (Past 12 Hours) Vital Signs Pulse Pulse Resp BP Pulse Ox O2 Del Method 11/26/23 06:51 106 H 17 126/78 95 Room Air 11/26/23 05:11 111 H 11/26/23 05:11 110 H 22 121/72 95 Room Air Laboratory Results Short CBC 11/26/23 Range/Units 05:47 WBC 3.44 L (4.8-10.8) K/ul Hgb 15.6 (12.0-16.0) g/dl Hct 44.2 (37.0-47.0) % Plt Count 165 (130-400) K/uL BMP 11/26/23 05:47 Sodium 132 L Potassium 4.6 Chloride 91 L Carbon Dioxide 18 L BUN 12 Creatinine 0.78 Glucose 401 H* Calcium 10.2 Liver Function 11/26/23 Range/Units 05:47 Total Bilirubin 1.3 H (0.2-1.0) mg/dl AST 119 H (13-39) U/L ALT 88 H (7-52) U/L Alkaline Phosphatase 260 H (34-104) U/L Albumin 4.8 (3.4-5.0) gm/dl Urine 11/26/23 Range/Units 06:30 Urine Color Yellow Urine Appearance Clear (Clear) Urine pH 6.5 (4.5-7.5) Ur Specific Korbel 1.024 (1.000-1.030) Urine Protein 1+ H (Negative) Urine Glucose (UA) 3+ H (Negative) Medications Administered Insulin Aspart (Insulin Aspart Per Unit Charge) 0 units SC Q6 ARMANI Stop: 12/26/23 09:14 Last Admin: 11/26/23 09:39 Dose: Not Given Documented By: FELIZ Discontinued Medications Multivitamins 10 ml/ Thiamine HCl 100 mg/ Folic Acid 1 mg/Sodium Chloride 1,011.2 mls @ 500 mls/hr IV .Q2H2M ONE Stop: 11/26/23 07:46 Last Admin: 11/26/23 07:32 Dose: 500 mls/hr Documented By: FELIZ Sodium Chloride (Nss) 1,000 mls @ 999 mls/hr IV .Q1H1M ONE Stop: 11/26/23 07:52 Last Admin: 11/26/23 07:05 Dose: 999 mls/hr Documented By: FELIZ Insulin Glargine (Lantus Per Unit Charge) 10 units SC ONE ONE Stop: 11/26/23 09:31 Last Admin: 11/26/23 09:35 Dose: 10 units Documented By: FELIZ Co-signed By: ARMIDA Insulin Human Regular (Novolin-R Insulin Per Unit Charge) 7 units IV NOW STA Stop: 11/26/23 07:22 Last Admin: 11/26/23 07:32 Dose: 7 units Documented By: FELIZ Co-signed By: ARMIDA Lorazepam (Lorazepam 1 Mg/1 Ml Syr Ed Inj Use) 0.5 mg IV ONE STA Stop: 11/26/23 06:53 Last Admin: 11/26/23 07:06 Dose: 0.5 mg Documented By: FELIZ Ondansetron HCl (Ondansetron Inj 2 Mg/Ml 2 Ml Vial) 4 mg IV NOW STA Stop: 11/26/23 06:53 Last Admin: 11/26/23 07:06 Dose: 4 mg Documented By: FELIZ Ondansetron HCl (Ondansetron Inj 2 Mg/Ml 2 Ml Vial) 4 mg IV NOW STA Stop: 11/26/23 09:00 Last Admin: 11/26/23 09:14 Dose: 4 mg Documented By: FELIZ Ondansetron HCl (Ondansetron Inj 2 Mg/Ml 2 Ml Vial) Confirm Administered Dose 4 mg .ROUTE .STK-MED ONE Stop: 11/26/23 09:11 Last Admin: 11/26/23 09:16 Dose: Not Given Documented By: FELIZ ECG Additional Comments: Most recent EKG performed on 09/09/2023 and revealed the following: NSR w/ HR 99 bpm, QRS Dur 80ms, P-R Int 136ms and QT/QTc Int 366/469ms. EKG was not performed in the ED prior to admission today. Code Status & VTE Plan Code Status FULL CODE VTE Prophylaxis Plan VTE Prophylaxis will be ordered: Yes Supervising Physician Co-Signing Physician Notes Attending addendum The patient was seen and examined in emergency room Has typical anxiety and tremors involving the outstretched hands associated with palpitation No nausea and or vomiting and no hallucination Has been feeling a little better since admission Will decide whether she will go to inpatient rehab from here On examination Remains hemodynamically stable Afebrile and without tachycardia Chest-clear Abdomen-benign Heart-S1-S2 regular Extremities-negative 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 No numbness and tingling in the extremities. No focal neurodeficit. Has significant tremors involving the outstretched hands Her labs, imaging studies, EKG reviewed Significant history of alcoholism with withdrawal Diabetes type 1 with possible ketoacidosis due to noncompliance Suicidal ideation Psychiatrist has been consulted Remains otherwise stable medically Agree with assessment and plan as outlined above by Jan Cerna PA-c (1) Alcohol withdrawal Complication of substance-induced condition: with delirium Qualified Code(s): F10.931 - Alcohol use, unspecified with withdrawal delirium (2) Diabetes mellitus type 1 Diabetes mellitus complication status: without complication Qualified Code(s): E10.9 - Type 1 diabetes mellitus without complications (5) Cirrhosis Ascites presence: without ascites Hepatic cirrhosis type: alcoholic cirrhosis Qualified Code(s): K70.30 - Alcoholic cirrhosis of liver without ascites
[2023-11-26 08:44] LABS: Amphetamines+Metham, Urine Neg (Neg); Barbiturates, Urine Neg (Neg); Benzodiazepine, Urine Neg (Neg); Cocaine, Urine Neg (Neg); Fentanyl, Urine Neg (Neg); MDMA (Ecstacy), Urine Neg (Neg); Marijuana, Urine Neg (Neg); Methadone, Urine Neg (Neg); Opiate, Urine Neg (Neg); Phencyclidine, Urine Neg (Neg)
[2023-11-26] MEDS ORDERED: GLUCAGON FOR INJ 1 MG VIAL IM PRN (09:15)
[2023-11-26] MEDS ORDERED: CARBOHYDRATES FOR HYPOGLYCEMIA PO PRN (09:15)
[2023-11-26] MEDS ORDERED: GLUCOSE 40% GEL 15 GM TUBE PO PRN (09:15)
[2023-11-26] MEDS ORDERED: DEXTROSE 50% 50 ML SYRINGE IV PRN (09:15)
[2023-11-26] MEDS ORDERED: GLUCOSE 10 TAB/TUBE PO PRN (09:15)
[2023-11-26] MEDS: ONDANSETRON INJ 2 MG/ML 2 ML VIAL ONE (09:16)
[2023-11-26] MEDS: LANTUS PER UNIT CHARGE SC ONE (09:35)
[2023-11-26] MEDS: INSULIN ASPART PER UNIT CHARGE SC SCH ×2 (09:39→21:14)
[2023-11-26] MEDS: PROMETHAZINE 6.25 MG/50.25 ML BAG IV STA (11:30)
[2023-11-26] MEDS ORDERED: LORazepam 0.5 MG in SYRINGE 0.25 ML IV ONE (11:30)
[2023-11-26] MEDS ORDERED: ALBUTEROL HFA 8 GM INHALER INH PRN (11:34)
[2023-11-26] MEDS: LORazepam 1 MG/1 ML SYR ED Inj Use ONE (11:37)
--- NOTE | 2023-11-26 11:39 | CT Scan Report ---
CT SCAN OF THE BRAIN WITHOUT IV CONTRAST CLINICAL HISTORY: Recent fall. Suicidal ideation. COMPARISON STUDY: CT of the brain dated 06/10/2021. TECHNIQUE: Unenhanced axial CT scan of the brain is performed from the vertex to the skull base. A d ose lowering technique was utilized adhering to the principles of ALARA. CT DOSE: 625.8 mGy.cm FINDINGS: Brain parenchyma: The brain parenchyma is normal in appearance. There is no hemorrhage, mass effect, or evidence of acute territorial ischemia by CT criteria. Miramontes-white matter differentiation is preser cassandra. No extra-axial fluid collection is seen. Ventricles, sulci, cisterns: Normal in configuration. Intracranial vasculature: The visualized intracranial vasculature at the skull base is normal in appe arance. Calvarium: Unremarkable. Sinuses and mastoids: There is mild mucosal thickening within the right maxillary antrum. Trace mucos al thickening is noted in the right ethmoid sinuses. The remaining paranasal sinuses are clear. The m astoid air cells are well pneumatized. Orbits: The bony orbits are grossly intact. IMPRESSION: No acute intracranial abnormality. ACT 112: Negative or not required by law. Electronically signed by: Randell Lo M.D. 11/26/2023 11:36 AM
--- OUTSIDE RECORDS SUMMARY | 2023-11-26 13:44 | External Medical Summary | Summary of Care ---
Author Name Unknown Organization [facility] Address [address] [place] [address] Phone [phone] Care Team Providers Care Pro Shop Attendant Name Role Phone Sugar Graves MD Primary Care Provid er Reason for Visit * Reason Onset Date Comments Medication Refill 10/16/2023 Encounter Details Date Type Department Care Team (Late st Contact Info) Description 10/16/2023 Refill [place] [address] [place] [address] Sugar Graves MD [address] [place] [address] Moderate persistent asthma without complication Allergies Active Allergy Reactions Criticality Noted Date Comments Doxycycline High 07/15/2023 arthralgia Theophylline 04/30/2002 anxiety Theophylline Sodium Glycinate 2004 nervous documented as of this encounter (statuses as of 10/16/2023) Medications Medication Sig Dispensed Refills Start Date [...] needed (sweating). 30 Tablet 1 02/11/2023 Active Atorvastatin Calcium 20 MG Oral Tablet (Lipitor)Indication s:Dyslipidemia, goal LDL below 70 Take 1 Tablet by mouth daily. 90 Tablet 3 02/11/2023 Active Additional Information Patient not taking.Reported on 07/12/2023 FreeStyle [place] Lite w/Device KitIndications:DM type 2, not at goal ([facility]) Use to check sugars daily. E 11.9 1 Kit 0 04/16/2023 Active Triamcinolone Acetonide 55 MCG/ACT Nasal Aerosol (Nasacort Allergy 24HR) Administer into nostril as needed for Rhinitis. 0 Active FreeStyle Beth 3 SensorIndications:D M type 2, not at goal ([facility]) Use as directed. Replace sensors every 14 days. 6 Each 3 07/23/2023 Active Zinc 20 MG Oral Capsule Take by mouth. 0 Active Melatonin 5 MG Oral Tablet Disintegrating Take by mouth. 0 Active traMADol HCl 50 MG Oral Tablet (Ultram)Indications :Hip pain, left Take 1 Tablet by mouth every 6 hours as needed for Pain, Severe. 10 Tablet 0 07/29/2023 Active Additional Information Patient not taking.Reported on 10/14/2023 Cyclobenzaprine HCl 5 MG Oral Tablet (Flexeril)Indicatio ns:Hip pain, left,Strain of left piriformis muscle, initial encounter Take 1 Tablet by mouth 3 times a day as needed for Muscle spasms. 30 Tablet 0 07/29/2023 Active Additional Information Patient not taking.Reported on 09/17/2023 busPIRone HCl 10 MG Oral Tablet (Buspar)Indications :Anxiety Take 2 Tablets by mouth in the morning and 2 Tablets at noon and 2 Tablets before bedtime. 540 Tablet 3 09/17/2023 Active Escitalopram Oxalate 10 MG Oral Tablet (Lexapro)Indication s:Anxiety Take 1 Tablet by mouth in the morning. 90 Tablet 3 09/17/2023 Active traZODone HCl 50 MG Oral Tablet (Desyrel)Indication s:Anxiety,Primary insomnia Take 1 Tablet by mouth at bedtime. 90 Tablet 0 09/17/2023 Active LORazepam 0.5 MG Oral Tablet (Ativan)Indications :Panic attack Take 1 Tablet by mouth 3 times a day as needed for Anxiety. 15 Tablet 0 09/19/2023 Active BD Pen Needle Gertrude 2nd Gen 32G X 4 MM (Insulin Pen Needle)Indications: DM type 2, not at goal ([facility]) Use to inject insulin 4 times daily. E 11.9 400 Each 3 09/29/2023 Active Magnesium 30 MG Oral Tablet Take by mouth. 0 Active Albuterol Sulfate HFA 108 (90 Base) MCG/ACT Inhalation Aerosol SolutionIndications :Moderate persistent asthma without complication Inhale 2 Puffs by mouth in the morning and 2 Puffs at noon and 2 Puffs in the evening and 2 Puffs before bedtime. Inhale 2 Puffs by mouth 4 times a day.. 54 g 3 10/16/2023 Active Fiasp FlexTouch 100 UNIT/ML Subcutaneous Solution Pen-injector (Insulin Aspart (w/Niacinamide))Ind ications:DM type 2, not at goal ([facility]) Inject 5 units under the skin before breakfast, 4 units with lunch, and 4 units with dinner. 15 mL 3 10/16/2023 Active Insulin Glargine-yfgn 100 UNIT/ML Subcutaneous Solution Pen-injector (Semglee (yfgn))Indications: DM type 2, not at goal ([facility]) Inject 30 Units under the skin in the morning. Dose increase. 30 mL 3 10/16/2023 Active Albuterol Sulfate HFA 108 (90 Base) MCG/ACT Inhalation Aerosol SolutionIndications :Moderate persistent asthma without complication Inhale 2 Puffs by mouth in the morning and 2 Puffs at noon and 2 Puffs in the evening and 2 Puffs before bedtime. Inhale 2 Puffs by mouth 4 times a day.. 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 . documented as of this encounter (statuses as of 10/16/2023) Resolved Problems Problem Noted Date Diagnosed Date [...] as of this encounter (statuses as of 10/16/2023) Immunizations Name Administration Dates Next Due COVID-19 mRNA, LNP-s, No Pre serve, 2-Dose Series ([employer]) 04/17/2021,08/22/2020 Covid-19, Mrna, Lnp-s, Pf, B ivalent, 30 Mcg, IM, 12 yrs and above (Pfizer) 03/20/2022,09/25/2021 Hepatitis B, 20+ yrs 03/05/2021 Pneumococcal Conjugate Vacci ne, 20-valent ([id number]) 02/20/2023 Pneumococcal Polysaccharide PPV23 (Pneumovax) 03/19/2018 Seasonal [...] encounter Miscellaneous Notes * Telephone Encounter - Kely Hidalgo, [facility] - 10/16/2023 4:25 PM EDTSigned Prescriptions: Disp Refills Albuterol Sulfate HFA 108 (90 Base) MCG/AC*54 g 3 Sig: Inhale 2 Puffs by mouth in the morning and 2 Puffs at noon and 2 Puffs in the evening and 2 Puffs before bedtime. Inhale 2 Puffs by mouth 4 times a day..Authorizing Provider: SUGAR GRAVESOrderingUser: KELY HIDALGO documented in this encounter Plan of Treatment Upcoming Encounters Date Type Department Care Team (Late st Contact Info) Description 11/20/2023 10:30 AM EDT [facility] [place] [address] [facility] [address] [facility] [address] [facility] [address] 01/16/2024 3:00 PM EDT Office Visit [facility], [place] [address] [facility] [id number] Sugar Graves MD [address] [facility] [address] 03/16/2024 3:00 PM EDT Office Visit Hepatology, [address] [place] [address] Vee Juarez MD [address] [place] [address] 03/18/2024 10:00 AM EDT [facility] [address] [place] [address] Suhail Woodrow, [address] [place] [address] Health Maintenance Due Date Last Done Comments Cologuard 11/18/2020 Colonoscopy 11/18/2020 Colorectal Cancer Screening 11/18/2020 Fecal Occult Blood Test 11/18/2020 Sigmoidoscopy 11/18/2020 Hepatitis B (2 of 3 - 19+ 3-dose series) 04/02/2021 03/05/2021 COVID-19 Vaccine ( season) 2023 03/20/2022, 09/25/2021, 04/17/2021, Additional history exists DTaP,Tdap,and Td Vaccines (2 - Td or Tdap) 09/01/2023 08/31/2013, 10/09/2005, 10/09/2005, Additional history exists Albumin/Creatinine Ratio 10/22/2023 10/21/2022 Diabetic Foot Exam 10/22/2023 10/21/2022, 06/14/2020 Mammogram 01/14/2024 01/13/2023, 01/22, 10/25/2016, Additional history exists Influenza Vaccine (FLU shot) (Season Ended) 2024 03/13/2020, 04/22/2019, 04/22/2019, Additional history exists HbA1c 04/14/2024 10/14/2023, 0 01/2024, 08/02/2022, Additional history exists Diabetic Eye Exam 07/29/2024 07/29/2023, 02/23/2022 GFR 10/13/2024 10/14/2023, 06/24, 08/02/2022, Additional history exists Pap Smear 01/03/2026 01/03/2023, [...] Visit Diagnoses Diagnosis Moderate persistent asthma without complication Unspecified asthma documented in this encounter Care Teams Pro Shop Attendant Relationship Specialty Start Date End Date Sugar Graves MD [address] [place] [address] PCP - General Family Medicine 10/21/22 documented as of this encounter
--- OUTSIDE RECORDS SUMMARY | 2023-11-26 13:44 | External Medical Summary | Summary of Care ---
Author Name Unknown Organization [facility] Address [address] [place] [address] Phone [phone] Care Team Providers Care Rubber Compounder Supervisor Name Role Phone Krystin Graves MD Primary Care Provid er Reason for Visit * Reason Onset Date Comments Medication Refill 11/11/2023 Encounter Details Date Type Department Care Team (Late st Contact Info) Description 11/11/2023 Refill [facility] [address] [place] [address] Krystin Graves MD [address] [place] [address] Anxiety; Primary insomnia; Panic attack Allergies Active Allergy Reactions Criticality Noted Date Comments Doxycycline High 07/15/2023 arthralgia Theophylline 04/30/2002 anxiety Theophylline Sodium Glycinate 2004 nervous documented as of this encounter (statuses as of 11/11/2023) Medications Medication Sig Dispensed Refills Start Date End Date Status Multiple Vitamins-Minerals (MULTIVITAMIN ADULT) TABS Take by mouth. Active Fluticasone-[place] rol 250-50 MCG/ACT Inhalation Aerosol [...] Information Patient not taking.Reported on 07/12/2023 FreeStyle [place] Lite w/Device KitIndications:DM type 2, not at goal ([facility]) Use to check sugars daily. E 11.9 1 Kit 04/16/2023 Active Triamcinolone Acetonide 55 MCG/ACT Nasal Aerosol (Nasacort Allergy 24HR) Administer into nostril as needed for Rhinitis. Active FreeStyle Beth 3 SensorIndications:D M type 2, not at goal ([facility]) Use as directed. Replace sensors every 14 days. 6 Each 3 07/23/2023 Active Zinc 20 MG Oral Capsule Take by mouth. Active Melatonin 5 MG Oral Tablet Disintegrating Take by mouth. Active traMADol HCl 50 MG Oral Tablet (Ultram)Indications :Hip pain, left Take 1 Tablet by mouth every 6 hours as needed for Pain, Severe. 10 Tablet 07/29/2023 Active Additional Information Patient not taking.Reported on 10/14/2023 Cyclobenzaprine HCl 5 MG Oral Tablet (Flexeril)Indicatio ns:Hip pain, left,Strain of left piriformis muscle, initial encounter Take 1 Tablet by mouth 3 times a day as needed for Muscle spasms. 30 Tablet 07/29/2023 Active Additional Information Patient not taking.Reported on 09/17/2023 busPIRone HCl 10 MG Oral Tablet (Buspar)Indications :Anxiety Take 2 Tablets by mouth in the morning and 2 Tablets at noon and 2 Tablets before bedtime. 540 Tablet 3 09/17/2023 Active BD Pen Needle Gertrude 2nd Gen 32G X 4 MM (Insulin Pen Needle)Indications: DM type 2, not at goal ([facility]) Use to inject insulin 4 times daily. E 11.9 400 Each 3 09/29/2023 Active Magnesium 30 MG Oral Tablet Take by mouth. Active Albuterol Sulfate HFA 108 (90 Base) [...] type 2, not at goal ([facility]) Inject 30 Units under the skin in the morning. Dose increase. 30 mL 3 10/16/2023 Active LORazepam 0.5 MG Oral Tablet (Ativan)Indications :Panic attack Take 1 Tablet by mouth 3 times a day as needed for Anxiety. 15 Tablet 10/24/2023 Active traZODone HCl 50 MG Oral Tablet (Desyrel)Indication s:Anxiety,Primary insomnia Take 1 Tablet by mouth at bedtime. 7 Tablet 11/11/2023 Active Escitalopram Oxalate 10 MG Oral Tablet (Lexapro)Indication s:Anxiety Take 1 Tablet by mouth in the morning. 7 Tablet 11/11/2023 Active Escitalopram Oxalate 10 MG Oral Tablet (Lexapro)Indication s:Anxiety Take 1 Tablet by mouth in the morning. 90 Tablet 3 09/17/2023 4 Discontinu ed(Refill) traZODone HCl 50 MG Oral Tablet (Desyrel)Indication s:Anxiety,Primary insomnia Take 1 Tablet by mouth at bedtime. 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 . documented as of this encounter (statuses as of 11/11/2023) Resolved Problems Problem Noted Date Diagnosed Date [...] as of this encounter (statuses as of 11/11/2023) Immunizations Name Administration Dates Next Due COVID-19 mRNA, LNP-s, No Pre serve, 2-Dose Series ([employer]) 04/17/2021,08/22/2020 Covid-19, Mrna, Lnp-s, Pf, B ivalent, 30 Mcg, IM, 12 yrs and above (Pfizer) 03/20/2022,09/25/2021 Hepatitis B, 20+ yrs 03/05/2021 Pneumococcal Conjugate Vacci ne, 20-valent ([id number]) 02/20/2023 Pneumococcal Polysaccharide PPV23 (Pneumovax) 03/19/2018 Seasonal [...] encounter Miscellaneous Notes * Telephone Encounter - Sammie Coon [facility] - 11/11/2023 10:51 AM EDT Signed Prescriptions: Disp Refills traZODone HCl 50 MG Oral Tablet (Desyrel) 7 Tabl*0 Sig: Take 1 Tablet by mouth at bedtime. Authorizing Provider: GABRIELLA MCFADDEN Ordering User: SAMMIE COON Escitalopram Oxalate 10 MG Oral Tablet (Le*7 Tabl*0 Sig: Take 1 Tablet by mouth in the morning. Authorizing Provider: GABRIELLA MCFADDEN Ordering User: SAMMIE COON < BR> * Telephone Encounter - Misti Beebe [facility] - 11/11/2023 10:22 AM EDT Pt out of town and her flight home has been delayed. Pt calling to request short supply for Trazodone and Escitalapram. Please review and approve if appropriate. Pending Prescriptions: Disp Refills traZODone HCl 50 MG Oral Tablet (Desyrel) 7 Tabl*0 Sig: Take 1 Tablet by mouth at bedtime. Escitalopram Oxalate 10 MG Oral Tablet (L*7 Tabl*0 Sig: Take 1 Tablet by mouth in the morning. Last Visit: 10/14/2023 (in office), 04/08/2023 (telemedicine) 01/16/2024 Thank you, Misti Beebe [facility] 11/11/2023,10:26 AM documented in this encounter Plan of Treatment Upcoming Encounters Date Type Department Care Team (Late st Contact Info) Description 11/20/2023 10:30 AM EDT Telemedicine Pharmacy, [place] [address] [place] [address] [facility] [address] [place] [address] 01/16/2024 3:00 PM EDT Office Visit Family Practice, [place] [address] [place] [facility] [phone] rKystin Graves MD [address] [place] [address] 03/16/2024 3:00 PM EDT Office Visit Hepatology, [facility] [address] [facility] [place] [address] Vee Juarez MD [address] [facility] [place] [id number] 03/18/2024 10:00 AM EDT Telemedicine Psychiatry [facility] [address] [place] [address] Woodrow Jang DO [address] [place] [address] Health Maintenance Due Date Last Done Comments [...] Additional history exists Pap Smear 01/03/2026 01/03/2023, 0 09/2016, 09/24/2016, Additional history exists Lipid Panel [...] as of this encounter Visit Diagnoses Diagnosis Anxiety Anxiety state, unspecified Primary insomnia Persistent disorder of initiating or maintaining sleep Panic attack Panic disorder without agoraphobia documented in this encounter Care Teams Rubber Compounder Supervisor Relationship Specialty Start Date End Date Krystin Graves MD [address] [place] [address] PCP - General Family Medicine 10/21/22 documented as of this encounter
--- OUTSIDE RECORDS SUMMARY | 2023-11-26 13:44 | External Medical Summary | Summary of Care ---
Author Name Unknown Organization [facility] Address [address] [place] [address] Phone [phone] Care Team Providers Care Veneer Lathe Operator Name Role Phone Sugar Meyer MD Primary Care Provid er Reason for Visit * Reason Onset Date Comments Medication Refill 11/11/2023 Encounter Details Date Type Department Care Team (Late st Contact Info) Description 11/11/2023 Refill [facility] [address] [place] [address] Sugar Meyer MD [address] [place] [address] Panic attack Allergies Active Allergy Reactions Criticality Noted Date Comments Doxycycline High 07/15/2023 arthralgia Theophylline 04/30/2002 anxiety Theophylline Sodium Glycinate 2004 nervous documented as of this encounter (statuses as of 11/17/2023) Medications Medication Sig Dispensed Refills Start Date [...] Information Patient not taking.Reported on 07/12/2023 FreeStyle [place] Lite w/Device KitIndications:DM type 2, not at goal ([facility]) Use to check sugars daily. E 11.9 1 Kit 04/16/2023 Active Triamcinolone Acetonide 55 MCG/ACT Nasal Aerosol (Nasacort Allergy 24HR) Administer into nostril as needed for Rhinitis. Active FreeStyle Beth 3 SensorIndications:D M type 2, not at goal ([facility]) Use as directed. Replace sensors [...] 2, not at goal (HCC) Use to inject insulin 4 times daily. [...] (yfgn))Indications: DM type 2, not at goal ([facility]) Inject 30 Units under the skin in the morning. Dose increase. 30 mL 3 10/16/2023 Active traZODone HCl 50 MG Oral Tablet (Desyrel)Indication s:Anxiety,Primary insomnia Take 1 Tablet by mouth at bedtime. 7 Tablet 11/11/2023 Active Escitalopram Oxalate 10 MG Oral Tablet (Lexapro)Indication s:Anxiety Take 1 Tablet by mouth in the morning. 7 Tablet 11/11/2023 Active LORazepam 0.5 MG Oral Tablet (Ativan)Indications :Panic attack Take 1 Tablet by mouth 3 times a day as needed for Anxiety. 15 Tablet 11/17/2023 Active LORazepam 0.5 MG Oral Tablet (Ativan)Indications :Panic attack Take 1 Tablet by mouth 3 times a day as needed for Anxiety. 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 . documented as of this encounter (statuses as of 11/17/2023) Resolved Problems Problem Noted Date Diagnosed Date [...] as of this encounter (statuses as of 11/17/2023) Immunizations Name Administration Dates Next Due COVID-19 mRNA, LNP-s, No Pre serve, 2-Dose Series ([employer]) 04/17/2021,08/22/2020 Covid-19, Mrna, Lnp-s, Pf, B ivalent, 30 Mcg, IM, 12 yrs and above (MePlease) 03/20/2022,09/25/2021 Hepatitis B, 20+ yrs 03/05/2021 Pneumococcal Conjugate Vacci ne, 20-valent ([id number]) 02/20/2023 Pneumococcal Polysaccharide PPV23 (Pneumovax) 03/19/2018 Seasonal [...] Telephone Encounter - Sugar Meyer MD - 11/17/2023 12:33 PM EDT Signed Prescriptions: Disp Refills LORazepam 0.5 MG Oral Tablet (Ativan) 15 Tab*0 Sig: Take 1 Tablet by mouth 3 times a day as needed for Anxiety.Authorizing Provider: SUGAR MEYER------ * Telephone Encounter - Sugar Meyer MD - 11/17/2023 12:33 PM EDT signed * Telephone Encounter - Ama P[facility] - 11/11/2023 10:36 AM EDT Pending Prescriptions: Disp Refills LORazepam 0.5 MG Oral Tablet (Ativan) 15 Tab*0 Sig: Take 1 Tablet by mouth 3 times a day as needed for Anxiety. * Telephone Encounter - Ama Paniagua [facility] - 11/11/2023 10:36 AM EDT I have reviewed the patients controlled substance dispensing history in the Prescription Drug Monitoring Program in compliance with the [facility] regulations before prescribing a controlled substance. PDMP checked on 11/11/2023. Pending Prescriptions: Disp Refills LORazepam 0.5 MG Oral Tablet (Ativan) 15 Tab*0 Sig: Take 1 Tablet by mouth 3 times a day as needed for Anxiety. Last Visit: 10/14/2023 (in office), 04/08/2023 (telemedicine) Next Visit: 01/16/2024 Date medication was last filled: 10/23 Date medication is due for refill: 10/28 Pharmacy: E [id number] [id number] [facility] Is this request for a controlled substance? Yes and Urine Drug Screen Not completed Toxicology results: Results for orders placed [...] available upon request. Please approve if appropriate. ThanksAma PharmD Clinical Pharmacist [facility] ([facility]) (formerly Telepharmacy) [phone] 11/11/2023,10:36 AM * Telephone Encounter - Misti Beebe PHARM Tech - 11/11/2023 10:29 AM EDT Pt is out of town and her flight has been delayed. Pt out to medication. Did you pend patient's preferred pharmacy and medication before forwarding?yes Pharmacy: [id number] [address] [facility] Pending Prescriptions: Disp Refills LORazepam 0.5 MG Oral Tablet (Ativan) 15 Tab*0 Sig: Take 1 Tablet by mouth 3 times a day as needed for Anxiety. Last Visit: 10/14/2023 (in office), 04/08/2023 (telemedicine) Next Visit: 01/16/2024 If no future appointments scheduled, and last appointment is greater than a year ago, please schedule patient for a follow-up appointment Last date the medication was ordered: 10/24/2023 Is this request for a controlled substance?Yes, What was the last refill date 10/24/2023 w/ quantity 15 and dosage 0.5 mg and Urine Drug Screen was completed Urine Drug Screen: Results for orders placed or performed in [...] purposes. Confirmatory testing is available upon request. Patient Phone Numbers [employer] [phone] Labs: Lab Results Component Value Date/Time CREAT 0.7 10/14/2023 02:40 PM CREAT 0.85 08/02/2022 12:00 AM CREAT 0.59 11/20/2020 10:52 AM POTASSIUM 4.5 10/14/2023 02:40 PM POTASSIUM 4.1 08/02/2022 12:00 AM POTASSIUM 3.6 11/20/2020 10:52 AM TSH 1.92 08/02/2022 12:00 AM TSH 1.63 12/21/2003 10:28 AM LDLCALC 86 08/02/2022 12:00 AM LDLCALC 112 10/10/2005 08:25 AM ALT 148 (H) 10/14/2023 02:40 PM ALT 46 11/20/2020 10:52 AM HGBA1C 10.4 (H) 10/14/2023 02:40 PM HGBA1C 11.3 06/30/2023 12:00 AM HGBA1C 5.2 09/07/2020 04:07 AM documented in this encounter Plan of Treatment Upcoming Encounters Date Type Department Care Team (Late st Contact Info) Description 11/20/2023 10:30 AM EDT Telemedicine Pharmacy, [place] [address] [place] [address] [facility] [address] [place] [address] 01/16/2024 3:00 PM EDT Office Visit Family Practice, [place] [address] [place] [address] Sugar Meyer MD [address] [place] [address] 03/16/2024 3:00 PM EDT Office Visit Hepatology, [facility] [address] [facility] [place] [address] Vee Juarez MD [address] [facility] [place] [address] 03/18/2024 10:00 AM EDT Telemedicine Psychiatry Yudith Gonzales [address] [place] [phone] Woodrow Jang DO [address] [facility] [place] [address] Health Maintenance Due Date Last Done Comments [...] 04/22/2019, Additional history exists HbA1c 04/14/2024 10/14/2023, 01/2024, 08/02/2022, Additional history exists Diabetic Eye [...] agoraphobia documented in this encounter Care Teams Veneer Lathe Operator Relationship Specialty Start Date End Date Sugar Meyer MD [address] [place] [address] PCP - General Family Medicine 10/21/22 documented as of this encounter
--- OUTSIDE RECORDS SUMMARY | 2023-11-26 13:44 | External Medical Summary | Summary of Care ---
Author Name Unknown Organization [facility] Address [address] [place] [address] Phone [phone] Care Team Providers Care Overnight Cashier Name Role Phone Krystin Graves MD Primary Care Provid er Encounter Details Date Type Department Care Team (Late st Contact Info) Description 10/18/2023 Orders Only PATIENT PORTAL DO NOT DELETE THIS DEPT USED BY [place] [id number] Allergies Active Allergy Reactions Criticality Noted Date Comments Doxycycline High 07/15/2023 arthralgia Theophylline 04/30/2002 anxiety Theophylline Sodium Glycinate 2004 nervous documented as of this encounter (statuses as of 10/18/2023) Medications Medication Sig Dispensed Refills Start Date [...] Information Patient not taking.Reported on 07/12/2023 FreeStyle [place] Lite w/Device KitIndications:DM type 2, not at goal ([facility]) Use to check sugars daily. E 11.9 1 Kit 0 04/16/2023 Active Triamcinolone Acetonide 55 MCG/ACT Nasal Aerosol (Nasacort Allergy 24HR) Administer into nostril as needed for Rhinitis. 0 Active FreeStyle Beth 3 SensorIndications:DM type 2, not at goal ([facility]) Use as directed. Replace sensors every 14 [...] 10/14/2023 Cyclobenzaprine HCl 5 MG Oral Tablet (Flexeril)Indication s:Hip pain, left,Strain of left piriformis muscle, initial encounter Take 1 Tablet by mouth 3 times a day as needed for Muscle spasms. 30 Tablet 0 07/29/2023 Active Additional Information Patient not taking.Reported on 09/17/2023 busPIRone HCl 10 MG Oral Tablet (Buspar)Indications: Anxiety Take 2 Tablets by mouth in the morning and 2 Tablets at noon and 2 Tablets before bedtime. 540 Tablet 3 09/17/2023 Active Escitalopram Oxalate 10 MG Oral Tablet (Lexapro)Indications :Anxiety Take 1 Tablet by mouth in the morning. 90 Tablet 3 09/17/2023 Active traZODone HCl 50 MG Oral Tablet (Desyrel)Indications :Anxiety,Primary insomnia Take 1 Tablet by mouth at bedtime. 90 Tablet 0 09/17/2023 Active LORazepam 0.5 MG Oral Tablet (Ativan)Indications: Panic attack Take 1 Tablet by mouth 3 times a day as needed for Anxiety. 15 Tablet 0 09/19/2023 Active BD Pen Needle Gertrude 2nd Gen 32G X 4 MM (Insulin Pen Needle)Indications:D M type 2, not at goal ([facility]) Use to inject insulin 4 times daily. [...] (w/Niacinamide))Miladis cations:DM type 2, not at goal ([facility]) Inject 5 units under the skin before breakfast, 4 units with lunch, and 4 units with dinner. 15 mL 3 10/16/2023 Active Insulin Glargine-yfgn 100 UNIT/ML Subcutaneous Solution Pen-injector (Semglee (yfgn))Indications:D M type 2, not at goal ([facility]) Inject 30 Units under the skin in the morning. Dose increase. 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 . documented as of this encounter (statuses as of 10/18/2023) Resolved Problems Problem Noted Date Diagnosed Date [...] as of this encounter (statuses as of 10/18/2023) Immunizations Name Administration Dates Next Due COVID-19 mRNA, LNP-s, No Pre serve, 2-Dose Series ([employer]) 04/17/2021,08/22/2020 Covid-19, Mrna, Lnp-s, Pf, B ivalent, 30 Mcg, IM, 12 yrs and above ([employer]) 03/20/2022,09/25/2021 Hepatitis B, 20+ yrs 03/05/2021 Pneumococcal Conjugate Vacci ne, 20-valent ([id number]) 02/20/2023 Pneumococcal Polysaccharide PPV23 (Pneumovax) 03/19/2018 Seasonal [...] Description 11/20/2023 10:30 AM EDT Telemedicine Pharmacy, [place] [address] [facility] [place] [address] [place], [facility] [address] [facility] [place] [address] 01/16/2024 3:00 PM EDT [facility] [address] [place] [phone] Krystin Graves MD [address] [place] [address] 03/16/2024 3:00 PM EDT Office Visit Hepatology, [facility] [address] [facility] [place] [address] Vee Juarez MD [address] [place] [address] 03/18/2024 10:00 AM EDT Telemedicine Psychiatry, [place] [address] [place] [address] Woodrow Jang, [address] [place] [address] Health Maintenance Due Date Last Done Comments [...] filedocumented as of this encounter Care Teams Overnight Cashier Relationship Specialty Start Date End Date Krystin Graves MD [address] [place] [address] PCP - General Family Medicine 10/21/22 documented as of this encounter
--- OUTSIDE RECORDS SUMMARY | 2023-11-26 13:44 | External Medical Summary | Summary of Care ---
Author Name Unknown Organization [facility] Address [address] [place] [address] Phone [phone] Care Team Providers Care Environmental Engineer Scientist Name Role Phone Krystin Graves MD Primary Care Provid er Reason for Visit * Reason Comments Dosage Adjustment In Person (Anticoag Cl inic) Diabetes Follow-Up Encounter Details Date Type Department Care Team (Late st Contact Info) Description 11/20/2023 10:30 AM EDT Telemedicine Pharmacy, [address] [address] [facility] [address] [place] [address] DM type 2, not at goal (HCC)* Allergies Active Allergy Reactions Criticality Noted Date Comments Doxycycline High 07/15/2023 arthralgia Theophylline 04/30/2002 anxiety Theophylline Sodium Glycinate 2004 nervous documented as of this encounter (statuses as of 11/20/2023) Medications Medication Sig Dispensed Refills Start Date [...] Information Patient not taking.Reported on 07/12/2023 FreeStyle [place] Lite w/Device KitIndications:DM type 2, not at goal ([facility]) Use to check sugars daily. E 11.9 1 Kit 04/16/2023 Active Triamcinolone Acetonide 55 MCG/ACT Nasal Aerosol (Nasacort Allergy 24HR) Administer into nostril as needed for Rhinitis. Active FreeStyle Beth 3 SensorIndications:D M type 2, not at goal ([facility]) Use as directed. Replace sensors [...] type 2, not at goal ([facility]) Use to inject insulin 4 [...] with dinner. 15 mL 3 10/16/2023 Active traZODone HCl 50 [...] needed for Anxiety. 15 Tablet 11/17/2023 Active Insulin Glargine-yfgn 100 UNIT/ML Subcutaneous Solution Pen-injector (Semglee (yfgn))Indications: DM type 2, not at goal (HCC) Inject 32 Units under the skin in the morning. Dose increase. 30 mL 3 11/20/2023 Active Insulin Glargine-yfgn 100 UNIT/ML Subcutaneous Solution Pen-injector (Semglee (yfgn))Indications: DM type 2, not at goal (HCC) Inject 30 Units under the skin in the morning. Dose increase. 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 . documented as of this encounter (statuses as of 11/20/2023) Resolved Problems Problem Noted Date Diagnosed Date [...] as of this encounter (statuses as of 11/20/2023) Immunizations Name Administration Dates Next Due COVID-19 mRNA, LNP-s, No Pre serve, 2-Dose Series ([employer]) 04/17/2021,08/22/2020 Covid-19, Mrna, Lnp-s, Pf, B ivalent, 30 Mcg, IM, 12 yrs and above (Pfizer) 03/20/2022,09/25/2021 Hepatitis B, 20+ yrs 03/05/2021 Pneumococcal Conjugate Vacci ne, 20-valent ([id number]) 02/20/2023 Pneumococcal Polysaccharide PPV23 (Pneumovax) 03/19/2018 Seasonal [...] this encounter Progress Notes * Elizabeth Rosario, [facility] - 11/20/2023 10:33 AM EDT Images from the original note were not included. Patient location: HOME. I was in a hospital or clinic location. After connecting through [employer],patient was verified with two unique identifiers. Patient (or authorized legal appliance service representative) was then informed that this [...] name and date of , is a 48 year old female being seen for diabetesmanagement/education. Patient presents for return diabetic visit. DIABETES: Current diabetic medications: INC Semglee 30 units once daily INC Fiasp 5 units before breakfast, 4 units with lunch, and 4 units with dinner. [2-4 units depending] Medication Injection Site: Abdomen Lifestyle: Diet: unchanged Glucose Review/SMBG: Readings obtained from patient device Hypoglycemia: Does your blood sugar go below 70 mg/dL? No Hyperglycemia symptoms present: none Recent Labs Units 10/14/23 1440 06/30/23 0000 08/02/22 0000 HEMOGLOBIN A1C - [facility] % 10.4* -- -- HEMOGLOBIN, [id number] LAB -- 11.3 10.3* Recent Labs Units 11/12/23 0716 10/14/23 1440 07/12/23 1058 ESTIMATED GLOMERULAR FILTRATION RATE - [facility] mL/min -- >90 >90 EGFR-OUTSIDE LAB mL/Min/1.73 sqm 103.9 -- -- CREATININE - [facility] mg/dL -- 0.7 0.6 CREATININE-OUTSIDE LAB mg/dL 0.72 -- -- HYPERTENSION: Patient on ACEi/ARB: no, due for a repeat UACR soon BP Readings from Last 3 Encounters: 10/14/23 104/62 09/17/23 112/68 07/29/23 166/68 Blood pressure at goal: yes HYPERLIPIDEMIA: Patient is taking moderate or high intensity statin: yes HEALTH MAINTENANCE REVIEW: Health Maintenance Due Topic Date Due Colorectal Cancer Screening Never done Hepatitis B (2 of 3 - 19+ 3-dose series) 04/02/2021 COVID-19 Vaccine (2022- season) 2023 DTaP,Tdap,and Td Vaccines (2 - Td or Tdap) 09/01/2023 Albumin/Creatinine Ratio 10/22/2023 Diabetic Foot Exam 10/22/2023 ASSESSMENT & PLAN: ICD-10-CM 1. DM type 2, not at goal (HCC) E11.9 Considerations: - hx of acute pancreatitis- avoiding GLPs at this time - jardiance caused vaginitis - unable to tolerate metformin due to N/V even at very lowest doses BG Readings - Blood sugars uncontrolled. Improvements noted, and we are working toward getting BG into better ranges. Patient has not had any symptoms of low blood sugars. Medications - Reviewed current regimen, patient is not adherent to regimen. Still taking less mealtime insulin than what we discuss. She remains hesitant about taking too high of doses for fear of low blood sugars. We will look to initiate a sliding scale/CF chart to see if she prefers an approach such as this to take into account a "lower" BG reading before a meal. Diet, Exercise, Lifestyle - No significant lifestyle changes since last visit. Patient is agreeable to SMBG with Freestyle Beth 3 time(s) daily. Patient aware to contact clinic if any hypoglycemia before next visit. MEDICATION CHANGES: yes, see below; preferred pharmacy: [facility] Medications: INC Semglee 32 units once daily INC/ADJ Fiasp 4 units with meals + 1:40 over 180 FOLLOW UP: Return to clinic in 2 weeks 12/04/2023 Elizabeth Rosario RPh Clinical Pharmacist - Manager [employer] [facility] 11/20/2023, 10:33 AM Blood Sugar levels Fiasp Dose 70 to 99 2 100 to 139 3 140 to 179 4 180 to 219 4 220 to 259 5 260 to 299 6 300 to 339 7 340 to 379 8 380 to 419 9 420 to 459 10 460 to 499 11 500 to 539 12 documented in this encounter Plan of Treatment Upcoming Encounters Date Type Department Care Team (Late st Contact Info) Description 12/04/2023 10:30 AM EDT Telemedicine Pharmacy, [place] [address] [place] [address] [facility] [address] [place] [address] 01/16/2024 3:00 PM EDT Office Visit Family Practice, [place] [address] [place] [phone] Krystin Graves MD [address] [place] [address] 03/16/2024 3:00 PM EDT Office Visit Hepatology, [facility] [address] [facility] [place] [address] Vee Juarez MD [address] [facility] [place] [address] 03/18/2024 10:00 AM EDT Telemedicine Psychiatry [place] [address] [place] [address] Woodrow Jang DO [address] [place] [address] Health Maintenance Due Date Last Done Comments [...] Exam 10/22/2023 10/21/2022, 06/14/2020 Mammogram 01/14/2024 01/13/2023, 12/22, 02/09/2018, Additional history exists Influenza Vaccine (FLU shot) (Season Ended) 2024 03/13/2020, 04/22/2019, 04/22/2019, Additional history exists HbA1c 04/14/2024 10/14/2023, 0 01/2024, 08/02/2022, Additional history exists Diabetic Eye Exam 07/29/2024 07/29/2023, 02/23/2022 GFR 11/11/2024 11/12/2023, 10/22, 10/14/2023, Additional history exists Pap Smear 01/03/2026 01/03/2023, [...] uncontrolled documented in this encounter Care Teams Environmental Engineer Scientist Relationship Specialty Start Date End Date Krystin Graves MD [address] [place] [address] PCP - General Family Medicine 10/21/22 documented as of this encounter
--- OUTSIDE RECORDS SUMMARY | 2023-11-26 13:44 | External Medical Summary | Summary of Care ---
Author Name Unknown Organization [facility] Address [address] [place] [address] Phone [phone] Care Team Providers Care Customer Solutions Supervisor Name Role Phone Sugar Meyer MD Primary Care Provid er Reason for Visit * Reason Onset Date Comments Medication Refill 10/23/2023 Encounter Details Date Type Department Care Team (Late st Contact Info) Description 10/23/2023 Refill [facility] [address] [place] [address] Sugar Meyer MD [address] [place] [address] Panic attack Allergies Active Allergy Reactions Criticality Noted Date Comments Doxycycline High 07/15/2023 arthralgia Theophylline 04/30/2002 anxiety Theophylline Sodium Glycinate 2004 nervous documented as of this encounter (statuses as of 10/24/2023) Medications Medication Sig Dispensed Refills Start Date [...] Information Patient not taking.Reported on 07/12/2023 FreeStyle [place] Lite w/Device KitIndications:DM type 2, not at goal ([facility]) Use to check sugars daily. E 11.9 1 Kit 0 04/16/2023 Active Triamcinolone Acetonide 55 MCG/ACT Nasal Aerosol (Nasacort Allergy 24HR) Administer into nostril as needed for Rhinitis. 0 Active FreeStyle Beth 3 SensorIndications:D M type 2, not at goal ([facility]) Use as directed. Replace sensors every 14 [...] at bedtime. 90 Tablet 0 09/17/2023 Active BD Pen Needle Gertrude 2nd Gen 32G X 4 MM (Insulin Pen Needle)Indications: DM type 2, not at goal ([facility]) Use to inject insulin 4 times daily. [...] as needed for Anxiety. 15 Tablet 0 10/24/2023 Active LORazepam 0.5 MG Oral Tablet (Ativan)Indications :Panic attack Take 1 Tablet by mouth 3 times a day as needed for Anxiety. 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 . documented as of this encounter (statuses as of 10/24/2023) Resolved Problems Problem Noted Date Diagnosed Date [...] as of this encounter (statuses as of 10/24/2023) Immunizations Name Administration Dates Next Due COVID-19 mRNA, LNP-s, No Pre serve, 2-Dose Series ([employer]) 04/17/2021,08/22/2020 Covid-19, Mrna, Lnp-s, Pf, B ivalent, 30 Mcg, IM, 12 yrs and above ([employer]) 03/20/2022,09/25/2021 Hepatitis B, 20+ yrs 03/05/2021 Pneumococcal Conjugate Vacci ne, 20-valent ([id number]) 02/20/2023 Pneumococcal Polysaccharide PPV23 (Pneumovax) 03/19/2018 Seasonal [...] Telephone Encounter - Sugar Meyer MD - 10/24/2023 4:56 PM EDT Signed Prescriptions: Disp Refills LORazepam 0.5 MG Oral Tablet (Ativan) 15 Tab*0 Sig: Take 1 Tablet by mouth 3 times a day as needed for Anxiety. Authorizing Provider: SUGAR MEYER * Telephone Encounter - Vicenta Gray [facility] - 10/24/2023 1:10 PM EDTPending Prescriptions: Disp Refills LORazepam 0.5 MG Oral Tablet (Ativan) 15 Tab*0 Sig: Take 1 Tablet by mouth 3 times a day as needed for Anxiety. * Telephone Encounter - Vicenta Gray [facility] - 10/24/2023 1:10 PM EDT I have reviewed the patients controlled substance dispensing history in the Prescription Drug Monitoring Program in compliance with the [facility] regulations before prescribing a controlled substance. PDMP checked on 10/24/2023. Pending Prescriptions: Disp Refills LORazepam 0.5 MG Oral Tablet (Ativan) 15 Tab*0 Sig: Take 1 Tablet by mouth 3 times a day as needed for Anxiety. Last Visit: 10/14/2023 (in office), 04/08/2023 (telemedicine) Next Visit: 01/16/2024 Date medication was last filled: 09/19/23 Date medication is due for refill: 10/18/23 Pharmacy: [id number] [address] [facility] Is this request for a [...] upon request. Please approve if appropriate. Thanks, Vicenta Gray, PharmD Clinical Pharmacist [facility] ([facility] - Formerly Telepharmacy) [phone] 10/24/2023 1:10 PM documented in this encounter Plan of Treatment Upcoming Encounters Date Type Department Care Team (Late st Contact Info) Description 11/20/2023 10:30 AM EDT Telemedicine Pharmacy, [place] [address] [place] [address] [facility] [address] [place] [address] 01/16/2024 3:00 PM EDT Office Visit Family [facility], [address] [address] Sugar Meyer MD [address] [place] [address] 03/16/2024 3:00 PM EDT Office Visit Hepatology, [facility] [address] [place] [address] Vee Juarez MD [address] [place] [phone] 03/18/2024 10:00 AM EDT Telemedicine Psychiatry Yudith Gonzales [address] [place] [address] [address] Woodrow Jang, [address] [place] [phone] Health Maintenance Due Date Last Done Comments [...] agoraphobia documented in this encounter Care Teams Customer Solutions Supervisor Relationship Specialty Start Date End Date Sugar Meyer MD [address] [place] [address] PCP - General Family Medicine 10/21/22 documented as of this encounter
--- OUTSIDE RECORDS SUMMARY | 2023-11-26 13:45 | External Medical Summary ---
Author Name Unknown Address Unknown Organization K01:[facility]ATORY [facility] - [address] [place] [address] Laboratory Report Ordering Provider Test Date Status MITCH WOOTEN 10/14/2023 14:40:57 Final Observation Date Value Abnormality Reference (Units ) Status CRP, low-sensitivity 10/14/2023 14:40:57 <3 <=5 (mg/L) Final Performing Location [facility] - [address] [place] [address]
--- OUTSIDE RECORDS SUMMARY | 2023-11-26 13:45 | External Medical Summary ---
Author Name Unknown Address Unknown Organization K[facility] [address] [facility] [address] Laboratory Report Ordering Provider Test Date Status MITCH WOOTEN 10/14/2023 14:40:57 Final Observation Date Value Abnormality Reference (Units ) Status BUN 10/14/2023 14:40:57 13 6-20 (mg/dL) Final Creatinine 10/14/2023 14:40:57 0.7 0.5-1.0 (mg/dL) Final Glomerular filtration rate/1.73 sq M.predicted [Volume Rate/Area] in Serum, Plasma or Blood by Creatinine-based formula (CKD-EPI) 10/14/2023 14:40:57 >90 >=60 (mL/min) Final eGFR is calculated based on the CKD-EPI 2020 equation Sodium 10/14/2023 14:40:57 134 Below low normal 135 -146 (mmol/L) Final Potassium 10/14/2023 14:40:57 4.5 3.5-5.1 (m mol/L) Final Cl 10/14/2023 14:40:57 100 98-107 (mm ol/L) Final CO2 10/14/2023 14:40:57 21 Below low normal 22- 32 (mmol/L) Final Anion gap 10/14/2023 14:40:57 13 7-15 (mmol /L) Final Glucose 10/14/2023 14:40:57 298 Above high normal 70 -120 (mg/dL) Final Albumin 10/14/2023 14:40:57 4.4 3.8-5.0 (g /dL) Final AST (Aspartate aminotransferase) 10/14/2023 14:40:57 121 Above high normal 10-35 (U/L) Final Alk Phos 10/14/2023 14:40:57 281 Above high normal 35 -130 (U/L) Final Bilirubin, Total 10/14/2023 14:40:57 0.4 <=1 .2 (mg/dL) Final Calcium 10/14/2023 14:40:57 10.8 Above high normal 8. 4-10.2 (mg/dL) Final Protein 10/14/2023 14:40:57 7.5 6.0-8.3 (g /dL) Final ALT (Alanine aminotransferase) 10/14/2023 14:40:57 148 Above high normal 10-35 (U/L) Final Performing Location LABORATORY [facility] - [address] [facility] [address]
--- OUTSIDE RECORDS SUMMARY | 2023-11-26 13:45 | External Medical Summary ---
Author Name Unknown Address Unknown Organization K01:[facility] [address] [facility] [place] [address] Laboratory Report Ordering Provider Test Date Status MITCH WOOTEN 10/14/2023 14:40:57 Final Deficient: <20 ng/mL
Ins ufficient: 20-29 ng/mL
Recommended/Optimum:30-50 ng/mL

Vitamin D intoxication is rare. If suspicious of Vitamin D toxicity, evaluation of serum Calcium and PTH is recommended. Observation Date Value Abnormality Reference (Units ) Status 25-OH Vitamin D total 10/14/2023 14:40:57 37 >19 (ng/mL) Final Performing Location LABORATORY C - [address] [place] [address]
--- OUTSIDE RECORDS SUMMARY | 2023-11-26 13:45 | External Medical Summary ---
Author Name Unknown Address Unknown Organization K01:[facility] - [address] [place] [address] Laboratory Report Ordering Provider Test Date Status MITCH WOOTEN 10/14/2023 14:40:57 Final Observation Date Value Abnormality Reference (Units ) Status Vitamin B12 10/14/2023 14:40:57 1443 Above high normal 232-1245 (pg/mL) Final Performing Location [facility] - [address] [place] [address]
--- OUTSIDE RECORDS SUMMARY | 2023-11-26 13:45 | External Medical Summary | Summary of Care ---
Author Name Unknown Organization [facility] Address [address] [place] [address] Phone [phone] Care Team Providers Care Cork Insulator Name Role Phone Krystin Graves MD Primary Care Provid er Reason for Visit * Reason Comments Dosage Adjustment In Person (Anticoag Cl inic) Diabetes Follow-Up Encounter Details Date Type Department Care Team (Late st Contact Info) Description 09/25/2023 9:00 AM EDT Telemedicine Pharmacy, [address] [address] [facility] [address] [place] [address] DM type 2, not at goal (HCC)* Allergies Active Allergy Reactions Criticality Noted Date Comments Doxycycline High 07/15/2023 arthralgia Theophylline 04/30/2002 anxiety Theophylline Sodium Glycinate 2004 nervous documented as of this encounter (statuses as of 09/29/2023) Medications Medication Sig Dispensed Refills Start Date End Date Status Multiple Vitamins-Minerals (MULTIVITAMIN ADULT) TABS Take by mouth. 0 Active Fluticasone-Salmet agatha 250-50 MCG/ACT Inhalation Aerosol Powder Breath Activated (Advair Diskus)Indications :Moderate persistent asthma without complication Inhale 1 Puff by mouth in the morning and 1 Puff before bedtime. 3 Each 3 3 Active Glycopyrrolate 1 MG Oral Tablet (Francisco)Indicatio ns:Focal hyperhidrosis Take 1 Tablet by mouth [...] Information Patient not taking.Reported on 07/12/2023 FreeStyle [place] Lite w/Device KitIndications:DM type 2, not at goal (HCC) Use to check sugars daily. E 11.9 1 Kit 0 3 Active Triamcinolone Acetonide 55 MCG/ACT Nasal Aerosol (Nasacort Allergy 24HR) Administer into nostril as needed for Rhinitis. 0 Active FreeStyle Beth 3 SensorIndications: DM type 2, not at goal (HCC) Use as directed. Replace sensors every 14 days. 6 Each 3 4 Active Zinc 20 MG Oral Capsule Take by mouth. 0 Active Melatonin 5 MG Oral Tablet Disintegrating Take by mouth. 0 Active traMADol HCl 50 MG Oral Tablet (Ultram)Indication s:Hip pain, left Take 1 Tablet by mouth every 6 hours as needed for Pain, Severe. 10 Tablet 0 4 Active Cyclobenzaprine HCl 5 MG Oral Tablet (Flexeril)Indicati ons:Hip pain, left,Strain of left piriformis muscle, initial encounter Take 1 Tablet by mouth 3 times a day as needed for Muscle spasms. 30 Tablet 0 4 Active Additional Information Patient not taking.Reported on 09/17/2023 busPIRone HCl 10 MG Oral Tablet (Buspar)Indication s:Anxiety Take 2 Tablets by mouth in the morning and 2 Tablets at noon and 2 Tablets before bedtime. 540 Tablet 3 4 Active Escitalopram Oxalate 10 MG Oral Tablet (Lexapro)Indicatio ns:Anxiety Take 1 Tablet by mouth in the morning. 90 Tablet 3 4 Active traZODone HCl 50 MG Oral Tablet (Desyrel)Indicatio ns:Anxiety,Primary insomnia Take 1 Tablet by mouth at bedtime. 90 Tablet 0 4 Active LORazepam 0.5 MG Oral Tablet (Ativan)Indication s:Panic attack Take 1 Tablet by mouth 3 times a day as needed for Anxiety. 15 Tablet 0 4 Active Insulin Glargine-yfgn 100 UNIT/ML Subcutaneous Solution Pen-injector (Semglee (yfgn))Indications :DM type 2, not at goal (HCC) Inject 25 Units under the skin in the morning. Stop 70/30 insulin. 30 mL 3 4 Active Fiasp FlexTouch 100 UNIT/ML Subcutaneous Solution Pen-injector (Insulin Aspart (w/Niacinamide))In dications:DM type 2, not at goal (HCC) Inject 2 units under the skin before breakfast, lunch, and dinner. Stop 70/30 insulin. 15 mL 3 4 Active BD Pen Needle Gertrude 2nd Gen 32G X 4 MM (Insulin Pen Needle)Indications :DM type 2, not at goal (HCC) Use to inject insulin 4 times daily. E 11.9 400 Each 3 4 Active Fiasp FlexTouch 100 UNIT/ML Subcutaneous Solution Pen-injector (Insulin Aspart (w/Niacinamide))In dications:DM type 2, not at goal (HCC) Inject 5 units under the skin before breakfast, lunch, and dinner. Replaces 70/30 insulin. 15 mL 0 3 024 Discontinued(Re fill) BD Insulin Syringe U-100 1 ML (Insulin Syringes (Disposable))Indic ations:DM type 2, not at goal (HCC) Please use with Semglee insulin once daily E11.9 100 Each 3 3 024 Discontinued(En d of Procedure) BD Pen Needle Gertrude U/F 32G X 4 MM (Insulin Pen Needle)Indications :DM type 2, not at goal (HCC) Use with Fiasp insulin three times daily E11.9 300 Each 3 3 024 Discontinued(Re fill) NovoLIN 70/30 FlexPen Relion (70-30) 100 UNIT/ML Suspension Pen-injector (Insulin NPH Isophane & Regular)Indication s:DM type 2, not at goal (HCC) Inject under the skin 45 units at breakfast and 20 units at dinner. Increase by 2 units every 3 days until fasting BG <180. 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 . documented as of this encounter (statuses as of 09/29/2023) Resolved Problems Problem Noted Date Diagnosed Date [...] as of this encounter (statuses as of 09/29/2023) Immunizations Name Administration Dates Next Due COVID-19 mRNA, LNP-s, No Pre serve, 2-Dose Series ([employer]) 04/17/2021,08/22/2020 Covid-19, Mrna, Lnp-s, Pf, B ivalent, 30 Mcg, IM, 12 yrs and above ([employer]) 03/20/2022,09/25/2021 HEP A - Hepatitis A (Adult > 18 yrs) 01/21/2001 Hepatitis B, 20+ yrs 03/05/2021 Pneumococcal Conjugate Vacci ne, 20-valent ([id number]) 02/20/2023 Pneumococcal Conjugate Vacci ne, 7 Valent [...] as of this encounter Progress Notes * Day Rosario, [facility] - 09/25/2023 9:01 AM EDT Images from the original note were not included. Patient location: HOME. I was in a hospital or clinic location. After connecting through televideo,patient was verified with two unique identifiers. Patient (or authorized legal automobile rental representative) was then informed that this was [...] return diabetic visit. DIABETES: Current diabetic medications: Novolin 70/30- 35 units in AM; 15 units in PM Fiasp 2 units with breakfast Medication Injection Site: Abdomen Lifestyle: Diet: unchanged Glucose Review/SMBG: Readings obtained from patient device Hypoglycemia: Does your blood sugar go below 70 mg/dL? No Hyperglycemia symptoms present: none Recent Labs Units 06/30/23 0000 08/02/22 0000 HEMOGLOBIN, [id number] 11.3 10.3* Recent Labs Units 07/12/23 1058 08/02/22 0000 ESTIMATED GLOMERULAR FILTRATION RATE - [facility] mL/min >90 -- EGFR-OUTSIDE LAB ML/MIN -- 86 CREATININE - [facility] mg/dL 0.6 -- CREATININE-OUTSIDE LAB MG/DL -- 0.85 HYPERTENSION: Patient on ACEi/ARB: no, due soon for repeat UACR BP Readings from Last 3 Encounters: 09/17/23 112/68 07/29/23 166/68 07/15/23 122/64 Blood pressure at goal: yes HYPERLIPIDEMIA: Patient [...] doses BG Readings - Blood sugars uncontrolled. Average sugar of 327. Estimated A1c just from the last 2 weeks of data showing 11.1%. Patient has anxiety about having low blood sugars, but is aware of the need for improved BG control. Medications - Reviewed current regimen, patient is adherent to regimen. Reviewed 70/30 insulin again. She is hesitantly agreeable to start a basal bolus regimen. Will start at 25 units of basal + consistent use of 2 units of bolus. Discussed that this is likely much lower doses than patient needs, but it is a starting point. I will check in early next week via myG to see how insulin is going so fa r. In the past, we had some issues with cost, so I advised patient that if her copay for either fiasp or semglee is over $35 for a one month supply, then she is to notify MTM, as there are coupons for Basaglar and Humalog (Malia Insulins). Diet, Exercise, Lifestyle - No significant lifestyle changes since last visit. Patient is agreeable to SMBG with [employer] Fan[employer] Group[employer] Beth time(s) daily. Patient aware to contact clinic if any hypoglycemia before next visit. MEDICATION CHANGES: yes, see below; preferred pharmacy: [facility] Diabetic Medications: STOP Novolin 70/30- 25 units in AM; 15 units in PM START Semglee 25 units once daily START Fiasp 2 units before breakfast, lunch, and dinner. FOLLOW UP: Return to clinic in 3 weeks, MyG check ins sooner 10/16/2023 Day Rosario RPh Clinical Pharmacist - Working Manager [facility] 09/25/2023, 9:01 AM documented in this encounter Miscellaneous Notes * Addendum Note - Day Rosario RPh - 09/29/2023 4:12 PM EDTAddended by: DAY ROSARIO on: 09/29/2023 04:12 PM Modules accepted: Orders documented in this encounter Plan of Treatment Upcoming Encounters Date Type Department Care Team (Late st Contact Info) Description 10/14/2023 8:00 AM EDT Telemedicine Gastroenterology, [address] [place] [address] Marissa Sandoval URVASHI [address] [place] [address] 10/14/2023 2:30 PM EDT Laboratory Laboratory, [place] [address] [facility] [place] [address] [place], Laboratory [address] [place], [place] [id number] 10/14/2023 3:00 PM EDT Office Visit Family Practice, [place] [address] [facility] [place] [address] Krystin Graves MD [address] [place] [address] 10/16/2023 9:20 AM EDT Telemedicine Pharmacy, [place] [address] [place] [address] [facility] [address] [place] [address] 03/18/2024 10:00 AM EDT Telemedicine Psychiatry, [place] [address] [place] [address] Woodrow Jang, [address] [place] [address] Health Maintenance Due Date Last Done Comments [...] 2024 03/13/2020, 04/22/2019, 04/22/2019, Additional history exists GFR 07/12/2024 07/12/2023, 07/24, 11/20/2020, Additional history exists Diabetic Eye Exam 07/29/2024 07/29/2023, 02/23/2022 Pap Smear 01/03/2026 01/03/2023, 040 09/2016, 09/24/2016, [...] uncontrolled documented in this encounter Care Teams Cork Insulator Relationship Specialty Start Date End Date Krystin Graves MD [address] [place] [facility] [place] [address] PCP - General Family Medicine 5/1/23 documented as of this encounter
--- OUTSIDE RECORDS SUMMARY | 2023-11-26 13:45 | External Medical Summary ---
Author Name Unknown Address Unknown Organization K01:[facility] - [address] [place] [address] Laboratory Report Ordering Provider Test Date Status MITCH WOOTEN 10/14/2023 14:40:57 Final Observation Date Value Abnormality Reference (Units ) Status Hemoglobin 10/14/2023 14:40:57 14.1 12.0-15.3 (g/dL) Final Performing [facility] [address] [facility] [address]
--- OUTSIDE RECORDS SUMMARY | 2023-11-26 13:45 | External Medical Summary | Summary of Care ---
Author Name Unknown Organization [facility] Address [address] [place] [address] Phone [phone] Care Team Providers Care Customer Relations Advisor Name Role Phone Krystin Graves MD Primary Care Provid er Encounter Details Date Type Department Care Team (Late st Contact Info) Description 07/10/2023 Telephone [facility] [address] [place] [address] Krystin Graves MD [address] [place] [address] Allergies Active Allergy Reactions Criticality Noted Date Comments Doxycycline High 07/15/2023 arthralgia Theophylline 04/30/2002 anxiety Theophylline Sodium Glycinate 2004 nervous documented as of this encounter (statuses as of 10/09/2023) Medications Medication Sig Dispensed Refills Start Date [...] Additional Information Patient not taking.Reported on 07/12/2023 [place] Lite w/Device KitIndications:DM type 2, not at goal ([facility]) Use to check sugars daily. 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 . documented as of this encounter (statuses as of 10/09/2023) Resolved Problems Problem Noted Date Diagnosed Date [...] as of this encounter (statuses as of 10/09/2023) Immunizations Name Administration Dates Next Due COVID-19 mRNA, LNP-s, No Pre serve, 2-Dose Series ([employer]) 04/17/2021,08/22/2020 Covid-19, Mrna, Lnp-s, Pf, B ivalent, 30 Mcg, IM, 12 yrs and above ([employer]) 03/20/2022,09/25/2021 Hepatitis B, 20+ yrs 03/05/2021 Pneumococcal Conjugate Vacci ne, 20-valent ([id number]) 02/20/2023 Pneumococcal Polysaccharide PPV23 (Pneumovax) 03/19/2018 Seasonal [...] Description 10/14/2023 8:00 AM EDT Telemedicine Gastroenterology, [facility] [address] [address] Marissa Sandoval CRNP [address] [place] [address] 10/14/2023 2:30 PM EDT Laboratory Laboratory, [address] [place] [address] [facility] [address] [place] [facility] [place] [address] 10/14/2023 3:00 PM EDT Office Visit Family Practice, [place] [address] [place] [facility] [place] [address] Krystin Graves MD [address] [facility], [place] [id number] 10/16/2023 9:20 AM EDT Telemedicine Pharmacy, [place] [address] [place] [address] [place] [facility] [address] [place] [address] 03/18/2024 10:00 AM EDT Telemedicine Psychiatry, [place] [address] [place] [address] Woodrow Jang [address] [place] [address] Health Maintenance Due Date Last Done Comments [...] 07/29/2024 07/29/2023, 02/23/2022 Pap Smear 01/03/2026 01/03/2023, 09/2016, 09/24/2016, Additional [...] filedocumented as of this encounter Care Teams Customer Relations Advisor Relationship Specialty Start Date End Date Krystin Graves MD [address] [place] [address] PCP - General Family Medicine 10/21/22 documented as of this encounter
--- OUTSIDE RECORDS SUMMARY | 2023-11-26 13:45 | External Medical Summary ---
Author Name Unknown Address Unknown Organization K01:LABORATORY [facility] - [address] [place] [address] Laboratory Report Ordering Provider Test Date Status MITCH WOOTEN 10/14/2023 14:40:57 Final Observation Date Value Abnormality Reference (Units ) Status Erythrocyte sedimentation rate by Photometric method 10/14/2023 14:40:57 12 <20 (mm/hour) Final Performing Location LABORATORY [facility] - [address] [place] [address]
--- OUTSIDE RECORDS SUMMARY | 2023-11-26 13:45 | External Medical Summary | Summary of Care ---
Author Name Unknown Organization [facility] Address [address] [place] [address] Phone [phone] Care Team Providers Care Front End Loader Driver Name Role Phone Krystin Graves MD Primary Care Provid er Reason for Visit * Reason Comments Dosage Adjustment In Person (Anticoag Cl inic) Diabetes Follow-Up Encounter Details Date Type Department Care Team (Late st Contact Info) Description 10/16/2023 9:20 AM EDT Telemedicine Pharmacy, [address] [address] [facility] [address] [place] [address] DM type 2, not at goal (HCC)* [...] Information Patient not taking.Reported on 07/12/2023 FreeStyle [place] Lite w/Device KitIndications:DM type 2, not at goal ([facility]) Use to check sugars daily. E 11.9 1 Kit 0 04/16/2023 Active Triamcinolone Acetonide 55 MCG/ACT Nasal Aerosol (Nasacort Allergy 24HR) Administer into nostril as needed for Rhinitis. 0 Active FreeStyle Beth 3 SensorIndications:D M type 2, not at goal ([facility]) Use as directed. Replace sensors every 14 [...] Needle)Indications: DM type 2, not at goal ([facility]) Use to inject insulin 4 times daily. E 11.9 400 Each 3 09/29/2023 Active Magnesium 30 MG Oral Tablet Take by mouth. 0 Active Fiasp FlexTouch 100 UNIT/ML Subcutaneous Solution Pen-injector (Insulin Aspart (w/Niacinamide))Ind ications:DM type 2, not at goal ([facility]) Inject 5 units under the skin before breakfast, 4 units with lunch, and 4 units with dinner. 15 mL 3 10/16/2023 Active Insulin Glargine-yfgn 100 UNIT/ML Subcutaneous Solution Pen-injector (Semglee (yfgn))Indications: DM type 2, not at goal ([facility]) Inject 30 Units under the skin in the morning. Dose increase. 30 mL 3 10/16/2023 Active Fiasp FlexTouch 100 UNIT/ML Subcutaneous Solution Pen-injector (Insulin Aspart (w/Niacinamide))Ind ications:DM type 2, not at goal ([facility]) Inject 4 units under the skin before breakfast, lunch, and dinner. 15 mL 3 10/07/2023 4 Discontinu ed(Refill) Insulin Glargine-yfgn 100 UNIT/ML Subcutaneous Solution Pen-injector (Semglee (yfgn))Indications: DM type 2, not at goal ([facility]) Inject 28 Units under the skin in the morning. 30 mL 3 10/07/2023 4 Discontinu ed(Refill) documented as of this [...] mRNA, LNP-s, No Pre serve, 2-Dose Series ([employer]) 04/17/2021,08/22/2020 Covid-19, Mrna, Lnp-s, Pf, B ivalent, 30 Mcg, IM, 12 yrs and above ([employer]) 03/20/2022,09/25/2021 Hepatitis B, 20+ yrs 03/05/2021 Pneumococcal Conjugate Vacci ne, 20-valent ([id number]) 02/20/2023 Pneumococcal Polysaccharide PPV23 (Pneumovax) 03/19/2018 Seasonal [...] Rosario, [facility] - 10/16/2023 9:21 AM EDT Images from the original note were not included. Patient location: HOME. I was in a hospital or clinic location. After connecting through [employer],patient was verified with two unique identifiers. Patient (or authorized legal sales utility representative) was then informed that this was [...] visit. DIABETES: Current diabetic medications: INC Semglee 28 units once daily INC Fiasp 4 units before breakfast, lunch, and dinner. Medication Injection Site: Abdomen Lifestyle: Diet: unchanged Glucose Review/SMBG: Readings obtained from patient device Hypoglycemia: Does your blood sugar go below 70 mg/dL? No Hyperglycemia symptoms present: none Recent Labs Units 10/14/23 1440 06/30/23 0000 08/02/22 0000 HEMOGLOBIN A1C - [facility] % 10.4* -- -- HEMOGLOBIN, [id number] -- 11.3 10.3* Recent Labs Units 10/14/23 1440 07/12/23 1058 08/02/22 0000 ESTIMATED GLOMERULAR FILTRATION RATE - [facility] mL/min >90 >90 -- EGFR-OUTSIDE LAB ML/MIN -- -- 86 CREATININE - [facility] mg/dL 0.7 0.6 -- CREATININE-OUTSIDE LAB MG/DL -- -- 0.85 HYPERTENSION: Patient on ACEi/ARB: no, due soon for a repeat UACR BP Readings from Last 3 Encounters: 10/14/23 [...] BG Readings - Blood sugars uncontrolled. Improvements notes, and we are working toward getting BG into better ranges. Patient has not had any symptoms of low blood sugars. Medications - Reviewed current regimen, patient is mostly adherent to regimen. She occasioanlly will take less than 4 units with supper. For example, she states that if she has a cheese quesadilla, she may only take 3 units or as low as 1 unit. We discussed that there is an uptick in her BG at supper time, so she was instructed to take 4 units regardless of meal for now. Breakfast also causes a rise in her BG, so will increase this dose, as she states she is consistently taking 4 units with breakfast. Will increase basal dose too to bring sugars closer to goal overall. Diet, Exercise, Lifestyle - No significant lifestyle changes since last visit. Patient is agreeable to SMBG with Freestyle libredaily. Patient aware to contact clinic if any hypoglycemia before next visit. MEDICATION CHANGES: yes, see below; preferred pharmacy: [facility] Medications: INC Semglee 30 units once daily INC Fiasp 5 units before breakfast, 4 units with lunch, and 4 units with dinner. HEALTH MAINTENANCE INTERVENTIONS: Labs: Up to Date Immunizations: due for tdap Foot Exam: due Eye Exam: Up to Date Annual Wellness Visit: Up to Date FOLLOW UP: Return to clinic in 5 weeks 11/20/2023 Elizabeth Rosario [facility] Clinical Pharmacist - Veneer Press Operator Medication Therapy Management [facility] 10/16/2023, 9:22 AM documented in this encounter Plan of Treatment Upcoming Encounters Date Type Department Care Team (Late st Contact Info) Description 11/20/2023 10:30 AM EDT Telemedicine Pharmacy, [place] [address] [place] [address] [facility] [address] [place] [address] 01/16/2024 3:00 PM EDT Office Visit Family [facility], [place] [address] [place] [address] Krystin Graves MD [address] [place] [address] 03/16/2024 3:00 PM EDT Office Visit Hepatology, [facility] [address] [facility] [place] [address] Vee Juarez MD [address] [facility] [place] [address] 03/18/2024 10:00 AM EDT Telemedicine Psychiatry, [place] [address] [place] [address] Woodrow Jang DO [address] [place] [address] Scheduled Orders Name Type Priority Associated Diagnoses Orde r Schedule ALBUMIN / CREATININE RATIO, URINE Lab Routine DM type 2, not at goal (HCC) Expected: 10/23/2023 (Approximate), Expires: 10/15/2024 Health Maintenance Due Date Last Done Comments Cologuard 11/18/2020 Colonoscopy 11/18/2020 Colorectal Cancer Screening 11/18/2020 Fecal Occult Blood Test 11/18/2020 Sigmoidoscopy 11/18/2020 Hepatitis B (2 of 3 - 19+ 3-dose series) 04/02/2021 03/05/2021 COVID-19 Vaccine (5 - season) 2023 03/20/2022, 09/25/2021, 04/17/2021, Additional history exists DTaP,Tdap,and Td Vaccines (2 - Td or Tdap) 09/01/2023 08/31/2013, 10/09/2005, 10/09/2005, Additional history exists Albumin/Creatinine Ratio 10/22/2023 10/21/2022 Diabetic Foot Exam 10/22/2023 10/21/2022, 06/14/2020 Mammogram 01/14/2024 01/13/2023, 01/22, 10/25/2016, Additional history exists Influenza Vaccine (FLU shot) (Season Ended) 2024 03/13/2020, 04/22/2019, 04/22/2019, Additional history exists HbA1c 04/14/2024 10/14/2023, /0 01/2024, 08/02/2022, Additional history exists Diabetic Eye [...] uncontrolled documented in this encounter Care Teams Front End Loader Driver Relationship Specialty Start Date End Date Krystin Graves MD [address] [place] [address] PCP - General Family Medicine 10/21/22 documented as of this encounter
--- OUTSIDE RECORDS SUMMARY | 2023-11-26 13:45 | External Medical Summary ---
Author Name Unknown Address Unknown Organization [id number]:[facility] [address] [place] [address] Laboratory Report Ordering Provider Test Date Status MITCH WOOTEN 10/14/2023 14:40:57 Final Observation Date Value Abnormality Reference (Units ) Status Magnesium 10/14/2023 14:40:57 1.9 1.5-2.6 (m g/dL) Final Performing Location [facility] - [address] [place] [address]
--- OUTSIDE RECORDS SUMMARY | 2023-11-26 13:45 | External Medical Summary ---
Author Name Unknown Address Unknown Organization [id number]:[facility] [place] [address] [facility] [address] Laboratory Report Ordering Provider Test Date Status MITCH WOOTEN 10/14/2023 14:40:57 Final Observation Date Value Abnormality Reference (Units ) Status HbA1C 10/14/2023 14:40:57 10.4 Above high normal 4. 0-5.6 (%) Final The use of HbA1c to monitor glycemic status is based on normal hemoglobin and HbA composition. This test should not be used in patients with abnormal hemoglobin that affects the half life of the red blood cell or the in vivo glycation rates. Glucose, estimated average 10/14/2023 14:40:57 252 Above high normal <126 (mg/dL) Nathan prince Performing Location [facility] [address] [facility] [address]
--- OUTSIDE RECORDS SUMMARY | 2023-11-26 13:45 | External Medical Summary ---
Author Name Unknown Address Unknown Organization [id number]:[facility] - [address] [facility] [address] Laboratory Report Ordering Provider Test Date Status MITCH WOOTEN 10/14/2023 14:40:57 Final Observation Date Value Abnormality Reference (Units ) Status Iron 10/14/2023 14:40:57 61 33-151 (ug /dL) Final Iron-binding capacity 10/14/2023 14:40:57 316 250-425 (ug/dL) Final Transferrin Sat % 10/14/2023 14:40:57 19 15 -55 (%) Final Performing Location [facility] [address] [facility] [address]
--- OUTSIDE RECORDS SUMMARY | 2023-11-26 13:45 | External Medical Summary | Summary of Care ---
Author Name Unknown Organization [facility] Address [address] [place] [address] Phone [phone] Care Team Providers Care Manager Community Development Name Role Phone Krystin Graves MD Primary Care Provid er Reason for Referral * Evaluate & Treat - Unlimited Visits (Within 30 days (routine)) - Pending Review Specialty Diagnoses / Procedures Referred By Yaneli hidalgo Referred To Contact Gastroenterology Diagnoses Alcoholic cirrhosis of liver without ascites (HCC) Pancreatic duct dilated Krystin Graves MD [address] [place] [address] Referral ID Status Reason Start Date Expiration Date Visits Requested Visits Authorized [id number] Pending Review Specialty Services Required 10/14/[phone] Question Answer For what condition is the patient being referred? Liver conditions Referral Priority Within 30 days (routine) Where should this appointment be scheduled? [facility] Reason for Visit * Reason Comments Follow Up 3 month return Encounter Details Date Type Department Care Team (Late st Contact Info) Description 10/14/2023 3:00 PM EDT Office Visit [facility] [address] [place] [address] Krystin Graves MD [address] [place] [address] DM type 2, not at goal (HCC)*; Alcoholism (HCC); Panic disorder; Major depressive disorder, recurrent episode, moderate (HCC); Elevated LFTs; Diabetic ketoacidosis without coma associated with diabetes mellitus due to underlying condition (HCC); Alcoholic cirrhosis of liver without ascites (HCC); Pancreatic duct dilated Allergies Active Allergy Reactions Criticality Noted Date Comments Doxycycline High 07/15/2023 arthralgia Theophylline 04/30/2002 anxiety Theophylline Sodium Glycinate 2004 nervous documented as of this encounter (statuses as of 10/14/2023) Medications Medication Sig Dispensed Refills Start Date [...] Information Patient not taking.Reported on 07/12/2023 FreeStyle [place] Lite w/Device KitIndications:DM type 2, [...] E 11.9 400 Each 3 09/29/2023 Active Fiasp FlexTouch 100 UNIT/ML Subcutaneous Solution Pen-injector (Insulin Aspart (w/Niacinamide))Miladis cations:DM type 2, not at goal (HCC) Inject 4 units under the skin before breakfast, lunch, and dinner. 15 mL 10/07/2023 Active Insulin Glargine-yfgn 100 UNIT/ML Subcutaneous Solution Pen-injector (Semglee (yfgn))Indications:D M type 2, not at goal (HCC) Inject 28 Units under the skin in the morning. 30 mL 3 10/07/2023 Active Magnesium 30 MG Oral Tablet Take by mouth. 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 . documented as of this encounter (statuses as of 10/14/2023) Resolved Problems Problem Noted Date Diagnosed Date [...] as of this encounter (statuses as of 10/14/2023) Immunizations Name Administration Dates Next Due COVID-19 mRNA, LNP-s, No Pre serve, 2-Dose Series ([employer]) 04/17/2021,08/22/2020 Covid-19, Mrna, Lnp-s, Pf, B ivalent, 30 Mcg, IM, 12 yrs and above ([employer]) 03/20/2022,09/25/2021 Hepatitis B, 20+ yrs 03/05/2021 Pneumococcal Conjugate Vacci ne, 20-valent ([id number]) 02/20/2023 Pneumococcal Polysaccharide PPV23 (Pneumovax) 03/19/2018 Seasonal [...] Sign Reading Time Taken Comments Blood Pressure 104/62 10/14/2023 2:54 PM EDT Pulse 64 10/14/2023 2:54 PM EDT Temperature 36.3 C (97.3 F) 10/14/2023 2:54 PM ED T Respiratory Rate 16 10/14/2023 2:54 PM EDT Oxygen Saturation 98% 10/14/2023 2:54 PM EDT Inhaled Oxygen Concentration - - Weight 73.6 kg (162 lb 4.8 oz) 10/14/2023 2:54 P M EDT Height 157.5 cm (5' 2") 10/14/2023 2:54 PM EDT Body Mass Index 29.69 10/14/2023 2:54 PM EDT documented in this encounter Progress Notes * Krystin Graves MD - 10/14/2023 3:02 PM EDT Images from the original note were not included. ASSESSMENT / PLAN: Marcus Avelar is a 47 year old female with PMHx alcoholism / hepatitis / h/o acute pancreatitis and REG / diabetes insulin dependent - here for recheck #Alcoholism, early remission / h/o alcoholic hepatitis/pancreatitis/cirrhosis 2014 - 2021 Recent relapse in August 2023 50mg naltrexone daily Attends [employer] online - recommend she seek IN PERSON counseling - list of resources provided Alcoholic cirrhosis / steatosis Hepatology referral placed #Anxiety improving, Complicated by panic attacks Urine tox completed and normal, agree to #15 lorazepam monthly as needed for panic attacks Cont trazodone, lexapro, buspar #T2DM Not well controlled unfortunately Neg MORIS 65/normal c pep so this is true T2DM Cont Following with MTM, titrating insulin Follow Up: Return in about 3 months (around 01/13/2024). DM type 2, not at goal (HCC) (Primary) - VITAMIN B12 - 25-HYDROXY VITAMIN D - VITAMIN B1 (THIAMINE), BLOOD, LC/MS/MS - MAGNESIUM - HGB - IRON SCREEN, INCLUDING TIBC Alcoholism (HCC) - VITAMIN B12 - 25-HYDROXY VITAMIN D - VITAMIN B1 (THIAMINE), BLOOD, LC/MS/MS - MAGNESIUM - HGB - IRON SCREEN, INCLUDING TIBC Panic disorder - VITAMIN B12 - 25-HYDROXY VITAMIN D - VITAMIN B1 (THIAMINE), BLOOD, LC/MS/MS - MAGNESIUM - HGB - IRON SCREEN, INCLUDING TIBC Major depressive disorder, recurrent episode, moderate (HCC) - VITAMIN B12 - 25-HYDROXY VITAMIN D - VITAMIN B1 (THIAMINE), BLOOD, LC/MS/MS - MAGNESIUM - HGB - IRON SCREEN, INCLUDING TIBC Elevated LFTs - VITAMIN B12 - 25-HYDROXY VITAMIN D - VITAMIN B1 (THIAMINE), BLOOD, LC/MS/MS - MAGNESIUM - HGB - IRON SCREEN, INCLUDING TIBC Diabetic ketoacidosis without coma associated with diabetes mellitus due to underlying condition (HCC) - VITAMIN B12 - 25-HYDROXY VITAMIN D - VITAMIN B1 (THIAMINE), BLOOD, LC/MS/MS - MAGNESIUM - HGB - IRON SCREEN, INCLUDING TIBC Alcoholic cirrhosis of liver without ascites (HCC) - HEPATOLOGY REFERRAL OP Pancreatic duct dilated - HEPATOLOGY REFERRAL OP Follow Up: Return in about 3 months (around 01/13/2024). If needed, prefers contact by: Ok to leave message on phone: SUBJECTIVE: Nursing Notes: Sade Thorne LPN 10/14/23 1501 Signed The patient has been properly identified by confirmation of name and date of . Chief Complaint Patient presents with Follow Up 3 month return HPI: Marcus Avelar is a 47 year old female. Here for recheck. Remains sober since last hospitalization. Recently hospitalized for 3 days in august for relapse in alcohol use, alcohol detox, and mild DKA. At follow up here, provider referred pt to psychiatry, switched mirtazapine to trazodone, and added lexapro to buspar regimen. 09/25/23 - MTM pharm - Diabetic Medications: STOP Novolin 70/30- 25 units in AM; 15 units in PM START Semglee 25 units once daily START Fiasp 2 units before breakfast, lunch, and dinner Reviewed sources 1- Patient Active Problem List Diagnosis Code ADVANCE DIRECTIVE INFORMATION Asthma, moderate persistent J45.40 Panic disorder F41.0 Alcoholism ([facility]) F10.20 Major depressive disorder, recurrent episode, moderate ([facility]) F33.1 DM type 2, not at goal ([facility]) E11.9 Carrier of methicillin resistant Staphylococcus aureus [...] 4 times a day.. 18 g 5 FreeStyle [place] Lite w/Device Kit Use to check sugars daily. E 11.9 1 Kit 0 Triamcinolone Acetonide 55 MCG/ACT Nasal Aerosol (Nasacort Allergy 24HR) Administer into nostril asneeded for Rhinitis. FreeStyle Beth 3 Sensor Use as directed. Replace sensors every 14 days. 6 Each 3 Zinc 20 MG Oral Capsule Take by mouth. Melatonin 5 MG Oral Tablet Disintegrating Take by mouth. busPIRone HCl 10 MG Oral Tablet (Buspar) Take 2 Tablets by mouth in the morning and 2 Tablets at noon and 2 Tablets before bedtime. 540 Tablet 3 Escitalopram Oxalate 10 MG Oral Tablet (Lexapro) Take 1 Tablet by mouth in the morning. 90 Tablet 3 traZODone HCl 50 MG Oral Tablet (Desyrel) Take 1 Tablet by mouth at bedtime. 90 Tablet 0 LORazepam 0.5 MG Oral Tablet (Ativan) Take 1 Tablet by mouth 3 times a day as needed for Anxiety. 15 Tablet 0 BD Pen Needle Gertrude 2nd Gen 32G X 4 MM (Insulin Pen Needle) Use to inject insulin 4 times daily. E 11.9 400 Each 3 Fiasp FlexTouch 100 UNIT/ML Subcutaneous Solution Pen-injector (Insulin Aspart (w/Niacinamide)) Inject 4 units under the skin before breakfast, lunch, and dinner. 15 mL 3 Insulin Glargine-yfgn 100 UNIT/ML Subcutaneous Solution Pen-injector (Semglee (yfgn)) Inject 28 Units under the skin in the morning. 30 mL 3 Magnesium 30 MG Oral Tablet Take by mouth. Atorvastatin Calcium 20 MG Oral Tablet (Lipitor) Take 1 Tablet by mouth daily. (Patient not taking:Reported on 07/12/2023) 90 Tablet 3 traMADol HCl 50 MG Oral Tablet (Ultram) Take 1 Tablet by mouth every 6 hours as needed for Pain, Severe. (Patient not taking: Reported on 10/14/2023) 10 Tablet 0 Cyclobenzaprine HCl 5 MG Oral Tablet (Flexeril) Take 1 Tablet by mouth 3 times a day as needed for Muscle spasms. (Patient not taking: Reported on 09/17/2023) 30 Tablet 0 No current facility-administered medications for this visit. OBJECTIVE: BP 104/62 | Pulse 64 | Temp 36.3 C (97.3 F) | Resp 16 | Ht 1.575 m (5' 2") | Wt 73.6 kg (162 lb4.8 oz) | SpO2 98% | BMI 29.69 kg/m | BSA 1.79 m Vitals reviewed and is normotensive / afebrile / and not tachycardic General: No acute distress. Neuro: Alert Pleasant & interactive. Respiratory: Good inspiratory effort, no labored breathing. HEENT: Conjunctivae appear clear. No swelling noted face or lips. Skin: No rash visible on exposed skin areas, normal coloration & appears dry. Psych: Normal affect. Fluent speech. Krystin Graves MD [address] [address] There are no Patient Instructions on file for this visit. documented in this encounter Nursing Notes * Sade Thorne LPN - 10/14/2023 3:00 PM EDT The patient has been properly identified by confirmation of name and date of . Chief Complaint Patient presents with Follow Up 3 month return documented in this encounter Plan of Treatment Upcoming Encounters Date Type Department Care Team (Late st Contact Info) Description 10/16/2023 9:20 AM EDT [facility] [place] [address] [place] [address] [facility] [place] [address] 01/16/2024 3:00 PM EDT Office Visit [place] [address] [place] [address] Krystin Graves MD [address] [place] [address] 03/16/2024 3:00 PM EDT Office Visit Hepatology, [address] [place] [address] Vee Juarez MD [address] [place] [address] [place] [address] 03/18/2024 10:00 AM EDT Telemedicine Psychiatry, [place] [address] [place] [address] Woodrow Jang DO [address] [place] [address] Scheduled Orders Name Type Priority Associated Diagnoses Orde r Schedule VITAMIN B12 Lab Routine Alcoholism (HCC) Panic disorder Major depressive disorder, recurrent episode, moderate (HCC) DM type 2, not at goal (HCC) Elevated LFTs Diabetic ketoacidosis without coma associated with diabetes mellitus due to underlying condition (HCC) Ordered: 10/14/2023 25-HYDROXY VITAMIN D Lab Routine Alcoholism (HCC) Panic disorder Major depressive disorder, recurrent episode, moderate (HCC) DM type 2, not at goal (HCC) Elevated LFTs Diabetic ketoacidosis without coma associated with diabetes mellitus due to underlying condition (HCC) Ordered: 10/14/2023 VITAMIN B1 (THIAMINE), BLOOD, LC/MS/MS Lab Routine Alcoholism (HCC) Panic disorder Major depressive disorder, recurrent episode, moderate (HCC) DM type 2, not at goal (HCC) Elevated LFTs Diabetic ketoacidosis without coma associated with diabetes mellitus due to underlying condition (HCC) Ordered: 10/14/2023 MAGNESIUM Lab Routine Alcoholism (HCC) Panic disorder Major depressive disorder, recurrent episode, moderate (HCC) DM type 2, not at goal (HCC) Elevated LFTs Diabetic ketoacidosis without coma associated with diabetes mellitus due to underlying condition (HCC) Ordered: 10/14/2023 HGB Lab Routine Alcoholism (HCC) Panic disorder Major depressive disorder, recurrent episode, moderate (HCC) DM type 2, not at goal (HCC) Elevated LFTs Diabetic ketoacidosis without coma associated with diabetes mellitus due to underlying condition (HCC) Ordered: 10/14/2023 IRON SCREEN, INCLUDING TIBC Lab Routine Alcoholism (HCC) Panic disorder Major depressive disorder, recurrent episode, moderate (HCC) DM type 2, not at goal (HCC) Elevated LFTs Diabetic ketoacidosis without coma associated with diabetes mellitus due to underlying condition (HCC) Ordered: 10/14/2023 Scheduled Referrals Name Type Priority Associated Diagnoses Orde r Schedule HEPATOLOGY REFERRAL OP Referral Within 30 days (routine) Alcoholic cirrhosis of liver without ascites (HCC) Pancreatic duct dilated Ordered: 10/14/2023 Health Maintenance Due Date Last Done Comments [...] Exam 10/22/2023 10/21/2022, 06/14/2020 HbA1c 12/29/2023 06/30/2023, 02, 09/07/2020, Additional history exists Mammogram 01/14/2024 01/13/2023, 01/22, 10/25/2016, Additional history exists Influenza Vaccine (FLU shot) (Season Ended) 2024 03/13/2020, 04/22/2019, 04/22/2019, Additional history exists GFR 07/12/2024 07/12/2023, 02, 11/20/2020, Additional history exists Diabetic Eye Exam 07/29/2024 07/29/2023, 02/23/2022 Pap Smear 01/03/2026 01/03/2023, 0409/2016, 09/24/2016, Additional [...] and unspecified alcohol dependence, unspecified drinking behavior Panic disorder Panic disorder without agoraphobia Major depressive disorder, recurrent episode, moderate (HCC) Major depressive disorder, recurrent episode, moderate Elevated LFTs Other abnormal blood chemistry Diabetic ketoacidosis without coma associated with diabetes mellitus due to underlying condition (HCC) Alcoholic cirrhosis of liver without ascites (HCC) Alcoholic cirrhosis of liver Pancreatic duct dilated Other specified disease of pancreas documented in this encounter Care Teams Manager Community Development Relationship Specialty Start Date End Date Krystin Graves MD [address] [place] [facility] [address] PCP - General Family Medicine 10/21/22 documented as of this encounter
--- OUTSIDE RECORDS SUMMARY | 2023-11-26 13:45 | External Medical Summary | Summary of Care ---
Author Name Unknown Organization [facility] Address [address] [place] [address] Phone [phone] Care Team Providers Care Swimming Pool Plasterer Helper Name Role Phone Krystin Graves MD Primary Care Provid er Reason for Visit * Reason Comments Outpatient Testing Encounter Details Date Type Department Care Team (Late st Contact Info) Description 10/14/2023 2:30 PM EDT Laboratory Laboratory, [place] [address] [place] [address] [place], [facility] [address] [place] [address] DM type 2, not at goal (HCC); Alcoholism (HCC); Alcoholic cirrhosis, unspecified whether ascites present (HCC); Elevated LFTs; Polyarthralgia; ESR raised; CRP elevated Allergies Active [...] Information Patient not taking.Reported on 07/12/2023 FreeStyle [place] Lite w/Device KitIndications:DM type 2, not at [...] Needle)Indications:D M type 2, not at goal ([facility]) Use to inject insulin 4 times daily. E 11.9 400 Each 3 09/29/2023 Active Fiasp FlexTouch 100 UNIT/ML Subcutaneous Solution Pen-injector (Insulin Aspart (w/Niacinamide))Miladis cations:DM type 2, not at goal ([facility]) Inject 4 units under the skin before breakfast, lunch, and dinner. 15 mL 3 10/07/2023 Active Insulin Glargine-yfgn 100 UNIT/ML Subcutaneous Solution Pen-injector (Semglee (yfgn))Indications:D M type 2, not at goal ([facility]) Inject 28 Units under the skin in the morning. 30 mL 3 10/07/2023 Active documented as of this encounter (statuses [...] mRNA, LNP-s, No Pre serve, 2-Dose Series (ReSnap) 04/17/2021,08/22/2020 Covid-19, Mrna, Lnp-s, Pf, B ivalent, 30 Mcg, IM, 12 yrs and above (ReSnap) 03/20/2022,09/25/2021 Hepatitis B, 20+ yrs 03/05/2021 Pneumococcal Conjugate Vacci ne, 20-valent ([id number]) 02/20/2023 Pneumococcal Polysaccharide PPV23 (Pneumovax) 03/19/2018 Seasonal [...] Description 10/16/2023 9:20 AM EDT Telemedicine Pharmacy, [address] [place] [address] [facility] [address] [place] [address] 03/18/2024 10:00 AM EDT Telemedicine Psychiatry, [place] [address] [place] [address] [place], [address] [place] [address] Pending Results Name Type Priority Associated Diagnoses Date /Time COMPREHENSIVE METABOLIC PANEL Lab Routine DM type 2, not at goal (HCC) Alcoholism (HCC) Alcoholic cirrhosis, unspecified whether ascites present (HCC) Elevated LFTs 10/14/2023 2:40 PM EDT HEMOGLOBIN A1C Lab Routine DM type 2, not at goal (HCC) Alcoholism (HCC) Alcoholic cirrhosis, unspecified whether ascites present (HCC) Elevated LFTs 10/14/2023 2:40 PM EDT ERYTHROCYTE SEDIMENTATION RATE (ESR) Lab Routine Polyarthralgia ESR raised CRP elevated 10/14/2023 2:40 PM EDT CRP (INFLAMMATORY MARKER) Lab Routine Polyarthralgia ESR raised CRP elevated 10/14/2023 2:40 PM EDT Health Maintenance Due Date Last Done Comments [...] Diagnosis DM type 2, not at goal (HCC) Type II or unspecified type diabetes mellitus without mention of complication, not stated as uncontrolled Alcoholism (HCC) Other and unspecified alcohol dependence, unspecified drinking behavior Alcoholic cirrhosis, unspecified whether ascites present (HCC) Elevated LFTs Other abnormal blood chemistry Polyarthralgia Pain in joint, multiple sites ESR raised Elevated sedimentation rate CRP elevated Elevated C-reactive protein (CRP) documented in this encounter Care Teams Swimming Pool Plasterer Helper Relationship Specialty Start Date End Date Krystin Graves MD [address] [place] [address] PCP - General Family Medicine 10/21/22 documented as of this encounter
--- OUTSIDE RECORDS SUMMARY | 2023-11-26 13:46 | External Medical Summary | Summary of Care ---
Author Name Unknown Organization [facility] Address [address] [place] [address] Phone [phone] Care Team Providers Care Blankbook Stitching Machine Operator Name Role Phone Krystin Graves MD Primary Care Provid er Reason for Referral * Evaluate & Treat - Unlimited Visits (Within 10 days (routine)) - Pending Review Specialty Diagnoses / Procedures Referred By Yaneli hidalgo Referred To Contact Psychiatry Diagnoses Anxiety Doron Hill MD [address] [place] [address] Referral ID Status Reason Start Date Expiration Date Visits Requested Visits Authorized [id number] Pending Review Specialty Services Required 09/17/[phone] Question Answer Referral Priority Within 10 days (routine) Where should this appointment be scheduled? [facility] Is this referral for medication management? Yes Reason for Referral Anxiety Comments Anxiety and alcohol use disorder. Reason for Visit * Reason Onset Date Comments Hospital Follow-Up Patient is he re for follow up after being admittedPatient has concerns about her anxiety Hospital Follow-Up 09/17/2023 Encounter Details Date Type Department Care Team (Late st Contact Info) Description 09/17/2023 10:00 AM EDT Office Visit [facility] [address] [place] [address] Doron Hill MD [address] [place] [address] Hospital discharge follow-up*; Anxiety; Alcoholic cirrhosis of liver without ascites (HCC); Primary insomnia Allergies Active Allergy Reactions Criticality Noted Date Comments Doxycycline High 07/15/2023 arthralgia Theophylline 04/30/2002 anxiety Theophylline Sodium Glycinate 2004 nervous documented as of this encounter (statuses as of 09/17/2023) Medications Medication Sig Dispensed Refills Start Date [...] Additional Information Patient not taking.Reported on 07/12/2023 Cloud [employer] CareStyle [place] Lite w/Device KitIndications:DM type 2, not at goal ([facility]) Use to check sugars daily. E 11.9 1 Kit 0 04/16/2023 Active Fiasp FlexTouch 100 UNIT/ML Subcutaneous Solution Pen-injector (Insulin Aspart (w/Niacinamide))Ind ications:DM type 2, not at goal ([facility]) Inject 5 units under the skin before breakfast, lunch, and dinner. Replaces 70/30 insulin. 15 mL 0 04/24/2023 Active BD Insulin Syringe U-100 1 ML (Insulin Syringes (Disposable))Indica tions:DM type 2, not at goal ([facility]) Please use with Semglee insulin once daily E11.9 100 Each 3 04/24/2023 Active BD Pen Needle Gertrude U/F 32G X 4 MM (Insulin Pen Needle)Indications: DM type 2, not at goal ([facility]) Use with Fiasp insulin three times daily E11.9 300 Each 3 04/24/2023 Active Triamcinolone Acetonide 55 MCG/ACT Nasal Aerosol (Nasacort Allergy 24HR) Administer into nostril as needed for Rhinitis. 0 Active FreeStyle Beth 3 SensorIndications:D M type 2, not at goal ([facility]) Use as directed. Replace sensors every [...] Additional Information Patient not taking.Reported on 09/17/2023 LORazepam 0.5 MG Oral Tablet (Ativan)Indications :Panic attack Take 1 Tablet by mouth 3 times a day as needed for Anxiety. 15 Tablet 0 08/14/2023 Active NovoLIN 70/30 FlexPen Relion (70-30) 100 UNIT/ML Suspension Pen-injector (Insulin NPH Isophane & Regular)Indications :DM type 2, not at goal ([facility]) Inject under the skin 45 units at breakfast and 20 units at dinner. Increase by 2 units every 3 days until fasting BG <180. Or as directed 0 08/14/2023 Active busPIRone HCl 10 MG Oral Tablet (Buspar)Indications [...] at bedtime. 90 Tablet 0 09/17/2023 Active Mirtazapine 45 MG Oral Tablet (Remeron)Indication s:Panic attack Take 1 Tablet by mouth at bedtime. 90 Tablet 1 04/08/2023 4 Discontinu ed(Patient preference /discontin uation) Doxycycline Hyclate 100 MG Oral Capsule Take 1 Capsule by mouth in the morning and 1 Capsule before bedtime. 0 07/05/2023 4 Discontinu ed(Medicat ion List Clean Up) busPIRone HCl 10 MG Oral Tablet (Buspar) Take 1 Tablet by mouth in the morning and 1 Tablet at noon and 1 Tablet before bedtime. 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 . documented as of this encounter (statuses as of 09/17/2023) Resolved Problems Problem Noted Date Diagnosed Date [...] as of this encounter (statuses as of 09/17/2023) Immunizations Name Administration Dates Next Due COVID-19 mRNA, LNP-s, No Pre serve, 2-Dose Series (DailyDeal) 04/17/2021,08/22/2020 Covid-19, Mrna, Lnp-s, Pf, B ivalent, 30 Mcg, IM, 12 yrs and above (DailyDeal) 03/20/2022,09/25/2021 Hepatitis B, 20+ yrs 03/05/2021 Pneumococcal Conjugate Vacci ne, 20-valent ([id number]) 02/20/2023 Pneumococcal Polysaccharide PPV23 (Pneumovax) 03/19/2018 Seasonal [...] Sign Reading Time Taken Comments Blood Pressure 112/68 09/17/2023 10:04 AM EDT Pulse 94 09/17/2023 10:04 AM EDT Temperature 36.1 C (96.9 F) 09/17/2023 1 0:04 AM EDT Respiratory Rate 16 09/17/2023 10:0 4 AM EDT Oxygen Saturation 98% 09/17/2023 10: 04 AM EDT Inhaled Oxygen Concentration - - Weight 76.1 kg (167 lb 12.8 oz) 024 10:04 AM EDT Height - - Body Mass Index 30.69 07/15/2023 3:15 PM EST documented in this encounter Progress Notes * Doron Hill MD - 09/17/2023 10:14 AM EDT Images from the original note were not included. Assessment and Plan 1. Anxiety Refer to Psychiatry. Start Lexapro 10 mg daily. Continue BuSpar 20 mg 3 times daily. Transitioned from mirtazapine 45 mg nightly to trazodone 50 mg nightly to assist with sleep. - busPIRone HCl 10 MG Oral Tablet (Buspar); Take 2 Tablets by mouth in the morning and 2 Tablets atnoon and 2 Tablets before bedtime. Dispense: 540 Tablet; Refill: 3 - Escitalopram Oxalate 10 MG Oral Tablet (Lexapro); Take 1 Tablet by mouth in the morning. Dispense: 90 Tablet; Refill: 3 - ADULT/PEDS PSYCHIATRY REFERRAL OP - traZODone HCl 50 MG Oral Tablet (Desyrel); Take 1 Tablet by mouth at bedtime. Dispense: 90 Tablet; Refill: 0 2. Alcoholic cirrhosis of liver without ascites (HCC) Cirrhosis noted on ultrasound during hospitalization. GI follow up scheduled. 3. Primary insomnia Transitioned to trazodone from mirtazapine. - traZODone HCl 50 MG Oral Tablet (Desyrel); Take 1 Tablet by mouth at bedtime. Dispense: 90 Tablet; Refill: 0 4. Hospital discharge follow-up - DISCH MED RECON CUR MED LIS Wrap-Up Follow up in one month with PCP and gastroenterology. History of Present Illness The patient is a 47-year-old female with past medical history of type 2 diabetes, moderate persistent asthma, alcohol abuse, depression/anxiety who presents for hospital follow up. Patient was admitted to [facility] from 09/09/2023 through 09/12/2023. Patient initially presented to [facility] with request for alcohol detox and alcohol withdrawal. Patient has been drink for 3 weeks prior to hospitalization. Prior to that she had 8weeks sober. In 2022 she was sober for 10 months. Patient also has significant concerns about anxiety. She currently takes mirtazapine, BuSpar, Ativan 3 times daily. She was not currently following with Psychiatry or therapy. She does have a history of type 2 diabetes. She currently is taking Novolin 70 30 insulin 35 units with breakfast and 15 units with dinner. She gets a lot of anxiety from low blood glucoses when her glucometer alarms below 100. She was in mild DKA with blood glucose of 250 and an anion gap of 23 and bicarb of 19 on admission. Gap closed after receiving IV insulin and she was transitioned back to subcu insulin. Alcohol level is 257 on admission. She was previously on naltrexone. A liver ultrasound showed the liver is enlarged and severely steatotic with morphologic change of cirrhosis. It was recommended she follow up with GI as she was also noted to have nonspecific dilation of the pancreatic duct measuring 5 mm which may be related to pancreatic atrophy. She was not interested in drug rehab placement at discharge. She was noted to have a TSH of 5.922 with free T4 normal. Plan to repeat in 6 weeks. She was continued on Remeron, lorazepam, BuSpar for anxiety. Today patient reports she was overall doing well. She has not been drinking since the hospitalization. From a diabetes perspective her A1c was 8.9 in the hospital. Discussed with MTM today who looked ather Beth results which indicate an A1c of 10.9 over the last month. Patient seems to have significant anxiety over low blood sugars. She is currently taking 70 30 insulin but not eating consistent meals which leads to very labile blood sugars and her chasing blood sugars throughout the day. She was agreeable to considering basal bolus insulin. This has been discussed at length with MTM in the past and patient has been hesitant. We will set up an MTM appointment for further discussions on next steps. From an anxiety perspective she currently uses BuSpar 20 mg 3 times daily, mirtazapine 45 mg nightly, Ativan 0.5 mg sparingly as needed. She has tried Celexa in the past without improvement. She is agreeable to starting Lexapro which should not interact with any other medications and should provideboth depression and anxiety coverage. We will transition her away from mirtazapine as this has not been providing improvement with insomnia and try trazodone once more. She has tried this in the pastlast in 2020. She was agreeable to Psychiatry evaluation. I think this is important given her ongoing anxiety and her history of alcohol use. Ultrasound during the hospitalization showed hepatic steatosis and cirrhosis. The patient was currently set up for GI follow up on 10/14/2023 for further evaluation. No evidence of decompensated cirrhosis at this time. Physical Exam Vitals: 09/17/23 1004 Temp: 36.1 C (96.9 F) Pulse: 94 Resp: 16 SpO2: 98% BP: 112/68 Physical Exam Physical Exam Vitals reviewed. Constitutional: General: She is not in acute distress. Cardiovascular: Rate and Rhythm: Normal rate and regular rhythm. Heart sounds: No murmur heard. Pulmonary: Effort: Pulmonary effort is normal. No respiratory distress. Breath sounds: Normal breath sounds. No wheezing. Abdominal: Comments: Palpable enlarged liver. No abdominal tenderness. No ascites. Skin: General: Skin is warm and dry. Neurological: General: No focal deficit present. Mental Status: She is alert. Psychiatric: Mood and Affect: Mood normal. Behavior: Behavior normal. Time: I spent a total of Greater than 55 mins (exact time 62 mins) on the date of service in preparation,delivery, and documentation of the care provided to the patient excluding any time spent in the performance of separately billed services. This note has been completed in part utilizing [employer] Speech Voice Recognition Software. Due to technical limitations of the software, grammatical errors, random word insertions, prounoun errors, and incomplete sentences may occur. Any formal questions or concerns about the content, text, or information contained within the body of this dictation should be directly addressed to the provider for clarification. documented in this encounter Nursing Notes * Gavino Lomeli Student - 09/17/2023 10:09 AM EDT The patient has been properly identified by confirmation of name and date of . Chief Complaint Patient presents with Hospital Follow-Up Patient is here for follow up after being admitted Patient has concerns about her anxiety documented in this encounter Plan of Treatment Upcoming Encounters Date Type Department Care Team (Late st Contact Info) Description 10/07/2023 1:00 PM EDT Laboratory [address] [place] [address] [facility] Miguel Bhatt [address] [place] [address] 10/14/2023 8:00 AM EDT Telemedicine Gastroenterology, [facility] [address] [place] [address] Marissa Sandoval CRNP [address] [place] [address] 10/14/2023 3:00 PM EDT Office Visit Family [facility] [place] [address] [place] [id number] Krystin Graves MD [address] [place] [address] Scheduled Referrals Name Type Priority Associated Diagnoses Orde r Schedule ADULT/PEDS PSYCHIATRY REFERRAL OP Referral Within 10 days (routine) Anxiety Ordered: 09/17/2023 Health Maintenance Due Date Last Done Comments [...] Hospital discharge follow-up- Primary Other follow-up examination Anxiety Anxiety state, unspecified Alcoholic cirrhosis of liver without ascites (HCC) Alcoholic cirrhosis of liver Primary insomnia Persistent disorder of initiating or maintaining sleep documented in this encounter Care Teams Blankbook Stitching Machine Operator Relationship Specialty Start Date End Date Krystin Graves MD [address] [place] [address] PCP - General Family Medicine 10/21/22 documented as of this encounter
--- OUTSIDE RECORDS SUMMARY | 2023-11-26 13:46 | External Medical Summary | Summary of Care ---
Author Name Unknown Organization [facility] Address [address] [place] [address] Phone [phone] Care Team Providers Care Kiln Tester Name Role Phone Sugar Meyer MD Primary Care Provid er Reason for Visit * Reason Onset Date Comments Medication Refill 09/18/2023 Encounter Details Date Type Department Care Team (Late st Contact Info) Description 09/18/2023 Refill [facility] [address] [place] [address] Sugar Meyer MD [address] [place] [address] Panic attack Allergies Active Allergy Reactions Criticality Noted Date Comments Doxycycline High 07/15/2023 arthralgia Theophylline 04/30/2002 anxiety Theophylline Sodium Glycinate 2004 nervous documented as of this encounter (statuses as of 09/19/2023) Medications Medication Sig Dispensed Refills Start Date [...] Information Patient not taking.Reported on 07/12/2023 FreeStyle [place] Lite w/Device KitIndications:DM type 2, not at [...] SensorIndications:D M type 2, not at goal (HCC) [...] Additional Information Patient not taking.Reported on 09/17/2023 NovoLIN 70/30 FlexPen Relion (70-30) 100 UNIT/ML [...] for Anxiety. 15 Tablet 0 09/19/2023 Active LORazepam 0.5 MG Oral Tablet (Ativan)Indications :Panic attack Take 1 Tablet by mouth 3 times a day as needed for Anxiety. 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 . documented as of this encounter (statuses as of 09/19/2023) Resolved Problems Problem Noted Date Diagnosed Date [...] as of this encounter (statuses as of 09/19/2023) Immunizations Name Administration Dates Next Due COVID-19 mRNA, LNP-s, No Pre serve, 2-Dose Series ([place]) 04/17/2021,08/22/2020 Covid-19, Mrna, Lnp-s, Pf, B ivalent, 30 Mcg, IM, 12 yrs and above (Pfizer) 03/20/2022,09/25/2021 Hepatitis B, 20+ yrs 03/05/2021 Pneumococcal Conjugate Vacci ne, 20-valent ([id number]) 02/20/2023 Pneumococcal Polysaccharide PPV23 (Pneumovax) 03/19/2018 Seasonal [...] Telephone Encounter - Sugar Meyer MD - 09/19/2023 4:43 PM EDT Signed Prescriptions: Disp Refills LORazepam 0.5 MG Oral Tablet (Ativan) 15 Tab*0 Sig: Take 1 Tablet by mouth 3 times a day as needed for Anxiety. Authorizing Provider: SUGAR MEYER * Telephone Encounter - Vicenta Gray [facility] - 09/19/2023 11:49 AM EDTPending Prescriptions: Disp Refills LORazepam 0.5 MG Oral Tablet (Ativan) 15 Tab*0 Sig: Take 1 Tablet by mouth 3 times a day as needed for Anxiety. * Telephone Encounter - Vicenta Gray [facility] - 09/19/2023 11:48 AM EDT I have reviewed the patients controlled substance dispensing history in the Prescription Drug Monitoring Program in compliance with the [place] regulations before prescribing a controlled substance. PDMP checked on 09/19/2023. Pending Prescriptions: Disp Refills LORazepam 0.5 MG Oral Tablet (Ativan) 15 Tab*0 Sig: Take 1 Tablet by mouth 3 times a day as needed for Anxiety. Last Visit: 09/17/2023 (in office), 04/08/2023 (telemedicine) Next Visit: 10/14/2023 Date medication was last filled: 08/14/23 Date medication is due for refill: 08/18/23 Pharmacy: [id number] [facility] [facility] Is this request for a controlled substance? [...] Clinical Pharmacy Services ([facility]) [phone] 09/19/2023 11:48 AM documented in this encounter Plan of Treatment Upcoming Encounters Date Type Department Care Team (Late st Contact Info) Description 09/25/2023 9:00 AM EDT Office Visit Pharmacy, [place] [address] [place], [place] [address] [address] [facility] [address] [facility] [address] 10/14/2023 8:00 AM EDT Telemedicine Gastroenterology, [address] [place] [address] Marissa Sandoval, URVASHI [address] [place] [address] 10/14/2023 2:30 PM EDT Laboratory Laboratory, [place] [address] [facility], [place] [id number] [facility] [address] [place], [place] [id number] 10/14/2023 3:00 PM EDT Office Visit Family Practice, [place] [address] [facility], [place] [address] Sugar Meyer MD [address] [place] [address] 03/18/2024 10:00 AM EDT Telemedicine Psychiatry, [place] [address] [place] [address] [facility], [address] [place] [address] Health Maintenance Due Date Last Done Comments [...] agoraphobia documented in this encounter Care Teams Kiln Tester Relationship Specialty Start Date End Date Sugar Meyer MD [address] [place] [address] PCP - General Family Medicine 10/21/22 documented as of this encounter
--- OUTSIDE RECORDS SUMMARY | 2023-11-26 13:46 | External Medical Summary | Summary of Care ---
Author Name Unknown Organization [facility] Address [address] [place] [address] Phone [phone] Care Team Providers Care Condominium Association Manager Name Role Phone Krystin Graves MD Primary Care Provid er Reason for Visit * Reason Comments Dosage Adjustment In Person (Anticoag Cl inic) Diabetes Follow-Up Encounter Details Date Type Department Care Team (Late st Contact Info) Description 09/25/2023 9:00 AM EDT Telemedicine Pharmacy, [address] [address] [facility] [address] [place] [address] DM type 2, not at goal (HCC)* Allergies Active Allergy Reactions Criticality Noted Date Comments Doxycycline High 07/15/2023 arthralgia Theophylline 04/30/2002 anxiety Theophylline Sodium Glycinate 2004 nervous documented as of this encounter (statuses as of 09/25/2023) Medications Medication Sig Dispensed Refills Start Date [...] Information Patient not taking.Reported on 07/12/2023 FreeStyle [place] Lite w/Device KitIndications:DM type 2, not at goal ([facility]) Use to check sugars daily. E 11.9 1 Kit 0 04/16/2023 Active Triamcinolone Acetonide 55 MCG/ACT Nasal Aerosol (Nasacort Allergy 24HR) Administer into nostril as needed for Rhinitis. 0 Active FreeStyle Beth 3 SensorIndications:D M type 2, not at goal ([facility]) Use as directed. Replace sensors [...] for Anxiety. 15 Tablet 0 09/19/2023 Active Insulin Glargine-yfgn 100 UNIT/ML Subcutaneous Solution Pen-injector (Semglee (yfgn))Indications: DM type 2, not at goal ([facility]) Inject 25 Units under the skin in the morning. Stop 70/30 insulin. 30 mL 3 09/25/2023 Active Fiasp FlexTouch 100 UNIT/ML Subcutaneous Solution Pen-injector (Insulin Aspart (w/Niacinamide))Ind ications:DM type 2, not at goal ([facility]) Inject 2 units under the skin before breakfast, lunch, and dinner. Stop 70/30 insulin. 15 mL 3 09/25/2023 Active BD Pen Needle Gertrude U/F 32G X 4 MM (Insulin Pen Needle)Indications: DM type 2, not at goal ([facility]) Use with Fiasp insulin three times daily E11.9 300 Each 3 09/25/2023 Active Fiasp FlexTouch 100 UNIT/ML Subcutaneous Solution Pen-injector (Insulin Aspart (w/Niacinamide))Ind ications:DM type 2, not at goal ([facility]) Inject 5 units under the skin before breakfast, lunch, and dinner. Replaces 70/30 insulin. 15 mL 0 04/24/2023 4 Discontinu ed(Refill) BD Insulin Syringe U-100 1 ML (Insulin Syringes (Disposable))Indica tions:DM type 2, not at goal ([facility]) Please use with Semglee insulin once daily E11.9 100 Each 3 04/24/2023 4 Discontinu ed(End of Procedure) BD Pen Needle Gertrude U/F 32G X 4 MM (Insulin Pen Needle)Indications: DM type 2, not at goal ([facility]) Use with Fiasp insulin three times daily E11.9 300 Each 3 04/24/2023 4 Discontinu ed(Refill) NovoLIN 70/30 FlexPen Relion (70-30) 100 UNIT/ML Suspension Pen-injector (Insulin NPH Isophane & Regular)Indications :DM type 2, not at goal (HCC) Inject under the skin 45 units at breakfast and 20 units at dinner. Increase by 2 units every 3 days until fasting BG <180. 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 . documented as of this encounter (statuses as of 09/25/2023) Resolved Problems Problem Noted Date Diagnosed Date [...] as of this encounter (statuses as of 09/25/2023) Immunizations Name Administration Dates Next Due COVID-19 mRNA, LNP-s, No Pre serve, 2-Dose Series (Cool Containers) 04/17/2021,08/22/2020 Covid-19, Mrna, Lnp-s, Pf, B ivalent, 30 Mcg, IM, 12 yrs and above (Cool Containers) 03/20/2022,09/25/2021 Hepatitis B, 20+ yrs 03/05/2021 Pneumococcal Conjugate Vacci ne, 20-valent ([id number]) 02/20/2023 Pneumococcal Polysaccharide PPV23 (Pneumovax) 03/19/2018 Seasonal [...] Progress Notes * Elizabeth Rosario, [facility] - 09/25/2023 9:01 AM EDT Images from the original note were not included. Patient location: HOME. I was in a hospital or clinic location. After connecting through televideo,patient was verified with two unique identifiers. Patient (or authorized legal outside sales representative insurance) was then informed that this was a [...] Labs Units 06/30/23 0000 08/02/22 0000 HEMOGLOBIN, [id number] LAB 11.3 10.3* Recent Labs Units 07/12/23 [...] Patient is agreeable to SMBG with Freestyle Bteh time(s) daily. Patient aware to contact clinic if any hypoglycemia before next visit. MEDICATION CHANGES: yes, see below; preferred pharmacy: [facility] Diabetic Medications: STOP Novolin 70/30- 25 units in AM; 15 units in PM START Semglee 25 units once daily START Fiasp 2 units before breakfast, lunch, and dinner. FOLLOW UP: Return to clinic in 3 weeks, MyG check ins sooner 10/16/2023 Elizabeth Rosario [facility] Clinical Pharmacist - [facility] 09/25/2023, 9:01 AM documented in this encounter Plan of Treatment Upcoming Encounters Date Type Department Care Team (Late st Contact Info) Description 10/14/2023 8:00 AM EDT Telemedicine Gastroenterology, [facility] [address] [place] [address] Marissa Sandoval CRNP [address] [place] [address] 10/14/2023 2:30 PM EDT Laboratory Laboratory, [address] [place] [phone] [facility] [address] [place] [facility] [place] [address] 10/14/2023 3:00 PM EDT Office Visit Family [facility], [place] [address] [place] [facility] [place] [phone] Krystin Graves MD [address] [place] [facility] [place] [address] 10/16/2023 9:20 AM EDT Telemedicine Pharmacy, [place] [address] [place] [address] [facility] [address] [place] [address] 03/18/2024 10:00 AM EDT Telemedicine Psychiatry, [place] [address] [place] [address] Woodrow Jang, [address] [place] [address] Health Maintenance Due Date Last Done Comments [...] 07/29/2024 07/29/2023, 02/23/2022 Pap Smear 01/03/2026 01/03/2023, 04/09/2016, 09/24/2016, Additional history exists Lipid Panel 08/02/2027 [...] uncontrolled documented in this encounter Care Teams Condominium Association Manager Relationship Specialty Start Date End Date Krystin Graves MD [address] [place] [address] PCP - General Family Medicine 10/21/22 documented as of this encounter
--- OUTSIDE RECORDS SUMMARY | 2023-11-26 13:47 | External Medical Summary | Summary of Care ---
Author Name Unknown Organization [facility] Address [address] [place] [address] Phone [phone] Care Team Providers Care Manufacturing Operator Name Role Phone Krystin Graves MD Primary Care Provid er Reason for Visit * Reason Onset Date Comments Hospital Follow-Up 09/15/2023 ALEX Encounter Details Date Type Department Care Team ([facility] st Contact Info) Description 09/15/[address] [address] Erika Dixon RN Hospital Follow-Up ([facility]) Allergies Active Allergy Reactions Criticality Noted Date Comments Doxycycline High 07/15/2023 arthralgia Theophylline 04/30/2002 anxiety Theophylline Sodium Glycinate 2004 nervous documented as of this encounter (statuses as of 09/15/2023) Medications Medication Sig Dispensed Refills Start Date [...] bedtime. 90 Tablet 1 04/08/2023 Active FreeStyle [place] Lite w/Device KitIndications:DM type 2, not at goal (HCC) Use to check sugars daily. E 11.9 1 Kit 0 04/16/2023 Active Fiasp FlexTouch 100 UNIT/ML Subcutaneous Solution Pen-injector (Insulin Aspart (w/Niacinamide))Miladis cations:DM type 2, not at goal ([facility]) Inject 5 units under the [...] bedtime. 270 Tablet 1 07/15/2023 4 Active FreeStyle Beth 3 SensorIndications:DM type 2, [...] Regular)Indications: DM type 2, not at goal ([facility]) Inject under the skin 45 units at breakfast and 20 units at dinner. Increase by 2 units every 3 days until fasting BG <180. 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 . documented as of this encounter (statuses as of 09/15/2023) Resolved Problems Problem Noted Date Diagnosed Date [...] as of this encounter (statuses as of 09/15/2023) Immunizations Name Administration Dates Next Due COVID-19 mRNA, LNP-s, No Pre serve, 2-Dose Series (DropMat) 04/17/2021,08/22/2020 Covid-19, Mrna, Lnp-s, Pf, B ivalent, 30 Mcg, IM, 12 yrs and above (DropMat) 03/20/2022,09/25/2021 Hepatitis B, 20+ yrs 03/05/2021 Pneumococcal Conjugate Vacci ne, 20-valent ([id number]) 02/20/2023 Pneumococcal Polysaccharide PPV23 (Pneumovax) 03/19/2018 Seasonal [...] encounter Miscellaneous Notes * Telephone Encounter - Erika Dixon RN - 09/15/2023 2:01 PM EDT Transitions of Care Note Reason for Referral:Recent Admission Phone visit for follow up: ALEX #1 Admitted to: [facility], Date: 09/09/2023 Discharged to: Home, Date: 09/12/2023 Diagnosis driving hospitalization: Diabetic Ketoacidosis, Alcohol use Disorder, Liver Cirrhosis Attempted ALEX - no answer. Message left to return call. [phone] or . Reminded ofP appointment 09/17/2023. Erika Dixon RN documented in this encounter Plan of Treatment Upcoming Encounters Date Type Department Care Team (Late st Contact Info) Description 09/17/2023 10:00 AM EDT Office Visit [place] [address] [place] [place] [address] OctoberDoron MD [address] [place] [facility] [place] [address] 10/07/2023 1:00 PM EDT Laboratory Laboratory, [place] [address] [place] [place] [address] [facility] [address] [place] [facility] [place] [address] 10/14/2023 8:00 AM EDT Telemedicine Gastroenterology, [facility] [address] [facility] [place] [address] Marissa Sandoval CRNP [address] [facility] [place] [address] 10/14/2023 3:00 PM EDT Office Visit [place] [address] [place] [address] Krystin Graves MD [address] [place] [place] [address] Health Maintenance Due Date Last Done [...] filedocumented as of this encounter Care Teams Manufacturing Operator Relationship Specialty Start Date End Date Krystin Graves MD [address] [place] [address] PCP - General Family Medicine 10/21/22 documented as of this encounter
--- OUTSIDE RECORDS SUMMARY | 2023-11-26 13:47 | External Medical Summary | Summary of Care ---
Author Name Unknown Organization [facility] Address [address] [place] [address] Phone [phone] Care Team Providers Care Booker Name Role Phone Krystin Graves MD Primary Care Provid er Reason for Visit * Reason Onset Date Comments Hospital Follow-Up 09/15/2023 ALEX Encounter Details Date Type Department Care Team ([facility] st Contact Info) Description 09/15/[address] [address] Erika Dixon RN Hospital Follow-Up ([facility]) Allergies Active Allergy Reactions Criticality Noted Date Comments Doxycycline High 07/15/2023 arthralgia Theophylline 04/30/2002 anxiety Theophylline Sodium Glycinate 2004 nervous documented as of this encounter (statuses as of 09/16/2023) Medications Medication Sig Dispensed Refills Start Date [...] bedtime. 90 Tablet 1 04/08/2023 Active FreeStyle [place] Lite w/Device KitIndications:DM type 2, not at goal (HCC) Use to check sugars daily. E 11.9 1 Kit 0 04/16/2023 Active Fiasp FlexTouch 100 UNIT/ML Subcutaneous Solution Pen-injector (Insulin Aspart (w/Niacinamide))Miladis cations:DM type 2, not at goal ([facility]) Inject 5 units under the skin before [...] Regular)Indications: DM type 2, not at goal ([facility]) Inject under the skin 45 units at breakfast and 20 units at dinner. Increase by 2 units every 3 days until fasting BG <180. 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 . documented as of this encounter (statuses as of 09/16/2023) Resolved Problems Problem Noted Date Diagnosed Date [...] as of this encounter (statuses as of 09/16/2023) Immunizations Name Administration Dates Next Due COVID-19 mRNA, LNP-s, No Pre serve, 2-Dose Series (Nanoflex) 04/17/2021,08/22/2020 Covid-19, Mrna, Lnp-s, Pf, B ivalent, 30 Mcg, IM, 12 yrs and above (Nanoflex) 03/20/2022,09/25/2021 HEP A - Hepatitis A (Adult > 18 yrs) 01/21/2001 Hepatitis B, 20+ yrs 03/05/2021 Pneumococcal Conjugate Vacci ne, 20-valent ([id number]) 02/20/2023 Pneumococcal Conjugate Vacci ne, 7 Valent [...] Miscellaneous Notes * Telephone Encounter - Erika Dixon, RN - 09/15/2023 2:01 PM EDT Transitions of Care Note Reason for Referral:Recent Admission Phone visit for follow up: ALEX #1 Admitted to: [facility], Date: 09/09/2023 Discharged to: Home, Date: 09/12/2023 Diagnosis driving hospitalization: Diabetic Ketoacidosis, Alcohol use Disorder, Liver Cirrhosis Attempted ALEX - no answer. Message left to return call. [phone] or . [facility] Erika Dixon RN Transitions of Care Note Reason for Referral:Recent Admission Phone visit for follow up: ALEX #2 Admitted to: [facility], Date: 09/09/2023 Discharged to: Home, Date: 09/12/2023 Diagnosis driving hospitalization: Diabetic Ketoacidosis, Alcohol use Disorder, Liver Cirrhosis Attempted ALEX - no answer. Message left to return call. [phone] or . Reminded ofP appointment 09/17/2023. Erika Dixon RN documented in this encounter Plan of Treatment Upcoming Encounters Date Type Department Care Team (Late st Contact Info) Description 09/17/2023 10:00 AM EDT [facility] [place] [address] [facility] [phone] OctoberDoron MD [address] [place] [facility] [place] [address] 10/07/2023 1:00 PM EDT Laboratory Laboratory, [place] [address] [facility] [phone] [facility] [address] [facility] [place] [address] 10/14/2023 8:00 AM EDT Telemedicine Gastroenterology, [address] [place] [address] Marissa Sandoval CRNP [address] [place] [address] 10/14/2023 3:00 PM EDT Office Visit [facility] [address] [place] [phone] Krystin Graves MD [address] [place] [address] Health Maintenance Due Date Last Done Comments [...] filedocumented as of this encounter Care Teams Booker Relationship Specialty Start Date End Date Krystin Graves MD [address] [place] [facility] [place] [address] PCP - General Family Medicine 10/21/22 documented as of this encounter
--- NOTE | 2023-11-26 13:58 | Pharmacy Report ---
Pharmacy Glycemic Short Note 2 - Date of Service November 26, 2023 - Glycemic Short BSG Results (Last 24 hours): 11/26/23 11/26/23 11/26/23 05:31 05:47 09:08 Glucose 401 H* POC Glucose 394 H* 225 H 11/26/23 11:56 Glucose POC Glucose 232 H OUTPATIENT ANTIDIABETIC REGIMEN: * Novolin 70/30 - 35 units SC w/ breakfast and 15 units SC w/ dinner HbA1c: 8.9% (09/10/23) ASSESSMENT: * RB is a 48 year old female known to pharmacy glycemic service due to poorly controlled T1DM and history of alcohol withdrawal * Presented to ED with concern for alcohol withdrawal and for evaluation of suicidal ideation * Presenting blood sugar ~400 mg/dL, elevated anion gap of 23, marginally low serum bicarb of 18, and normal VBG pH of 7.4. * No obvious DKA picture based on labs * Patient received 7 units of IV insulin in ED and blood sugar improved to 225 mg/dL * Discussed with hospitalist and will attempt to manage w/ SC insulin at this time * Patient is NPO at this time. PLAN FOR INPATIENT GLYCEMIC CONTROL: * Hold 70/30 insulin while in hospital * Basal insulin * Lantus 10 units SC daily * Reassess in AM * Bolus insulin * NovoLog per scale ACHS or Q6hrs while NPO * Goal Range: Low 110 mg/dL - High 140 mg/dL * Correction Factor: 30 mg/dL/unit * Nutritional / Prandial insulin per carb ratio of 1 unit per 10 grams CHO consumed
[2023-11-26] MEDS ORDERED: ONDANSETRON INJ 2 MG/ML 2 ML VIAL IV PRN (14:14)
[2023-11-26] MEDS ORDERED: POLYETHYLENE (MIRALAX) 17 GM PACK PO PRN (14:14)
[2023-11-26] MEDS ORDERED: Ativan IV Alcohol Withdrawal--Active Protocol IV PRN (14:14)
[2023-11-26] MEDS ORDERED: LORazepam 2 MG in SYRINGE 1 ML IV PRN (14:14)
[2023-11-26] MEDS ORDERED: LORazepam 3 MG in SYRINGE 1.5 ML IV PRN (14:14)
[2023-11-26] MEDS ORDERED: GABAPENTIN 1200MG ALCOHOL WITHDRAWAL LOAD PO STA (14:14)
[2023-11-26] MEDS: SODIUM CHLORIDE 0.9% 1,000 ML IV SCH (14:51)
[2023-11-26] MEDS: busPIRone 5 MG TAB PO SCH (14:51)
[2023-11-26] MEDS: GABAPENTIN 600 MG TAB PO ONE (14:55)
[2023-11-26] MEDS: LORazepam 1 MG in SYRINGE 0.5 ML IV PRN (17:59)
[2023-11-26] MEDS: GABAPENTIN 600 MG TAB PO SCH (21:13)
[2023-11-26] MEDS: traZODone HCL 50 MG TAB PO SCH (21:14)
--- NOTE | 2023-11-26 22:55 | Electrocardiogram Report ---
Test Reason : Blood Pressure : / mmHG Vent. Rate : 094 BPM Atrial Rate : 094 BPM P-R Int : 132 ms QRS Dur : 076 ms QT Int : 370 ms P-R-T Axes : 048 030 048 degrees QTc Int : 462 ms Normal sinus rhythm Normal ECG When compared with ECG of 09-SEP-2023 12:37, No significant change was found Confirmed by Kevin Lambert ([id number]) on 11/26/2023 10:55:08 PM Referred By: REFERRED SELF Confirmed By:Kevin Lambert
[2023-11-27] MEDS: INSULIN ASPART PER UNIT CHARGE SC SCH (00:26)
[2023-11-27 06:47] LABS: Hemoglobin 12.4 g/dl (12.0-16.0); Mean Corpuscular Hemoglobin 31.2 pg (25.0-34.0); Mean Corpuscular Hgb Conc 34.4 g/dL (32.0-36.0); Mean Corpuscular Volume 90.7 fL (80.0-100.0); Mean Platelet Volume 9.3 fL (9.4-12.4); Platelet Count 81 K/uL (130-400); RDW Coefficient of Variation 14.5 % (11.5-14.5); RDW Standard Deviation 48.1 fL (36.4-46.3); Red Blood Count 3.97 M/uL (4.20-5.40); White Blood Count 1.43 K/ul (4.8-10.8)
[2023-11-27 06:57] LABS: Albumin Globulin Ratio 1.3 (0.9-2); Albumin Level 3.9 gm/dl (3.4-5.0); BUN Creatinine Ratio 23.8 (10-20); Bilirubin,Total 1.3 mg/dl (0.2-1.0); Calcium 9.8 mg/dl (8.6-10.3); Est GFR (African American) 122.9 ml/min; Est GFR (Non-African American) 106.1 ml/min; Globulin 2.9 gm/dl (2.5-4.0); Potassium 4.2 mmol/L (3.5-5.1); Total Protein 6.8 gm/dl (6.0-8.3)
[2023-11-27 07:06] LABS: Platelet Estimate Decreased (Normal); RBC Morphology Unremarkable
[2023-11-27 07:08] LABS: Basophils # (auto) 0.02 K/uL (0.00-0.20); Basophils % (auto) 1.4 %; Eosinophils # (auto) 0.04 K/uL (0.00-0.50); Eosinophils % (auto) 2.8 %; Lymphocytes # (auto) 0.66 K/uL (1.20-3.40); Lymphocytes % (auto) 46.2 %; Monocytes # (auto) 0.14 K/uL (0.11-0.59); Monocytes % (auto) 9.8 %; Neutrophils # (auto) 0.57 K/uL (1.40-6.50); Neutrophils % (auto) 39.8 %
[2023-11-27] MEDS: LANTUS PER UNIT CHARGE SC SCH (08:04)
[2023-11-27] MEDS: FLUTICASONE/VILANTEROL 200/25MCG 14 PUFFS/INHALER INH SCH (08:05)
[2023-11-27] MEDS: ESCITALOPRAM OXALATE 10 MG TAB PO SCH (08:05)
[2023-11-27] MEDS: THIAMINE HCL 100 MG TAB PO SCH (08:05)
[2023-11-27] MEDS: FOLIC ACID 1 MG TAB PO SCH (08:05)
[2023-11-27] MEDS: GABAPENTIN 600 MG TAB PO SCH (11:57)
--- NOTE | 2023-11-27 12:28 | Psychiatric Consultation ---
Date of Consultation November 27, 2023 Impression / Recommendations Impression Patient presents a history suspicious for major depressive disorder and symptoms have improved with her antidepressant therapy. She presents a family history of alcohol dependence and major depression. She currently denies suicidal ideation, is future oriented, has intact reality testing, and is self planning abstinence and rehab. Her psychiatric medications were reviewed and appropriate at this time. Suspicious for MDD with a seasonal pattern and she was counseled on nonpharmacological strategies to improve mood in the winter. No evidence of nury, hypomania, psychosis. She was counseled on alcohol withdrawal and potential risks in the future with continued dependence. She has outpatient follow-up scheduled in January. She does not meet criteria for inpatient psychiatric admission at this time and may follow up on an outpatient basis. Overall, I spent a total of 45 minutes with this case including review of chart records, nursing report, direct evaluation of the patient at bedside, counseling the patient, discussion of the patient with the hospitalist provider, discussion with the psychiatric liaison during clinical rounds, and documentation in the electronic health record. (1) MDD (major depressive disorder), recurrent, in partial remission: (2) Alcohol withdrawal: (3) Alcohol dependence: Complication of substance-induced condition: with delirium Substance use status: in withdrawal Qualified Code(s): F10.231 - Alcohol dependence with withdrawal delirium (4) History of suicidal ideation: Plan -Does not meet criteria for inpatient psychiatric admission at this time. F/u outpatient rehab, counseling, PCP, psychiatry. -Continue home Escitalopram, Trazodone, Buspar -Hydroxyzine 25mg Q6hr PRN for anxiety, insomnia Psych History Identifying Data Ms. Marcus bishop is a 48-year-old white female lives by self history of type 1 diabetes, asthma, splenomegaly, liver cirrhosis who presents with alcohol withdrawal and suicidal ideation. Psychiatry consulted for evaluation, medication management, and safety planning. Chief Complaint Suicidal ideation, depression History of Present Illness Chart review: Patient currently taking Lexapro 10 mg daily and trazodone 50 mg at bedtime prescribed by PCP. The patient complains of anxiety and depression. 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 After drinking escalated she reported a 10-month period of sobriety. 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 Reports escalating alcohol intake after that drinking initially a bottle of wine and then said 375 mL of vodka daily. She denies any drug use. Reports drivers for drinking as anxiety and depression; initially alcohol helps her feel calm but with time she becomes more depressed and she continues to use to cope with symptoms. Reports PCP prescribed Lexapro 10 mg, trazodone 50 mg, and BuSpar has been effective for her mood, anxiety, and sleep. Reports having a psychiatric follow-up at [facility] in January. Past mirtazapine was ineffective for sleep or anxiety. Reports having panic symptoms that happened without any triggers from 2016 with a loss of focus shortness of breath and increased heart rate. She reports past episodes of low mood, difficulty maintaining sleep, increased anxious ruminations that have improved with initiation of antidepressant therapy and sleep aid. Denies anhedonia and enjoys activities in the garden and spending time with her cat. Denies having fluctuating emotions. Denies past periods of poor sleep with elevated mood and energy. Denies seeing and hearing things she cannot see. Denies current suicidal ideation. She presents future plans to attend outpatient rehab at [place] and abstain from alcohol and drugs. She presents a family history of anxiety and depression and alcohol dependence in her mother and alcohol dependence in her paternal grandmother. Mother is currently on antidepressant therapy. 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 She has a adult daughter who works in [place] as an ditching machine operating engineer. Past Psychiatric History Previous Psych History: anxiety Previous Psych Admissions: none Do You Have Access To A Gun?: No History of Previous Suicide Attempt: No Past Medication Trials: mirtazapine-ineffective, celexa-not well tolerated Allergies Allergy/AdvReac Type Severity Reaction Status Date / Time doxycycline Allergy Severe Muscle Pain Verified 11/26/23 08:30 theophylline AdvReac Intermediate VERTIGO Verified 11/26/23 08:30 Home Medications Medication Instructions Recorded Confirmed Type fluticasone 250 mcg-salmeterol 50 1 inh inhalation AMPM 02/27/19 11/26/23 History mcg/dose blistr powdr for inhalation (Advair Diskus) albuterol sulfate 90 mcg/actuation 2 puff inhalation UD PRN Shortness 07/23/19 11/26/23 History aerosol inhaler (Ventolin HFA) Of Breath multivitamin (Daily-Harris tablet) 1 tab PO QAM #0 tabs 07/27/19 11/26/23 Rx ascorbic acid (vitamin C) 500 mg 500 mg PO DAILY 04/05/21 11/26/23 History tablet,extended release (Vitamin C ER) buspirone 10 mg tablet 20 mg PO TID 04/22/22 11/26/23 History lorazepam 0.5 mg tablet 0.5 mg PO TID PRN Anxiety 09/09/23 11/26/23 History folic acid 1 mg tablet 1 mg PO QAM #30 tabs 09/12/23 11/26/23 Rx thiamine HCl (vitamin B1) 100 mg 100 mg PO QAM #30 tabs 09/12/23 11/26/23 Rx tablet escitalopram oxalate 10 mg tablet 10 mg PO QAM 11/26/23 11/26/23 History ibuprofen 800 mg tablet 800 mg PO Q8H PRN Pain 11/26/23 11/26/23 History insulin aspart 4 - 5 unit subcut TID 11/26/23 11/26/23 History (niacinamide)(U-100) 100 unit/mL(3 mL) subcutaneous pen (Fiasp FlexTouch U-100 Insulin) insulin glargine-yfgn 100 unit/mL 32 unit subcut QAM 11/26/23 11/26/23 History (3 mL) subcutaneous pen (Semglee (insulin glargine-yfgn) Pen) pen needle, diabetic 32 gauge x 11/26/23 11/26/23 History 5/32" (BD Ultra-Fine Gertrude Pen Needle) trazodone 50 mg tablet 50 mg PO QPM 11/26/23 11/26/23 History Patient History Medical History Acute alcoholic pancreatitis Suicidal ideation Hypophosphatemia Hypomagnesemia Metabolic acidosis Thrush Alcoholic intoxication Thrombocytopenia Alcohol withdrawal Acute alcoholic hepatitis Acidosis, metabolic Acute pancreatitis Electrolyte abnormality DVT prophylaxis Alcohol withdrawal Asthma Surgical History History of dental surgery wisdom teeth History of esophagogastroduodenoscopy (EGD) Family History Father Prediabetes Grandfather (Paternal) Diabetes Mother Hypertension MVP (mitral valve prolapse) Social History Smoking Status: Never smoker Tobacco Type: Cigarettes Age Quit Using Tobacco: 39; packs per day: 1; Second Hand Exposure: No; Do You Dip or Chew Tobacco: No; Hx Alcohol Use: Yes Alcohol type: wine and hard liquor Alcohol type Comment: 4 glasses wine daily Hx Substance Use: No Preferred Language: Marshallese Communication Ability: Effective Visual Impairment: No Limitations 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 Required: No Beliefs That Will Affect Care: None marital status: marital status details: Single parent Current Living Situation: Alone Current Living Situation Comment: daughter current occupational status: unemployed How many Children do You have: 1 Other Information That Helps Us Care for You: No Feels Safe at Home: Yes and No Is there a partner from a previous relationship who is making you feel unsafe now?: No Any Concerns about Your Family Situation: No Would You Like to Speak to Someone About Your Situation: No Safety Concerns: Feels Safe At This Time Childhood Exposure to Second-Hand Smoke: No Gender Identity: Female Assistive Devices: None Physical Exam Mental Examination: appropriate appearance Eye Contact: Maintains Eye Contact Motor Behavior: Unremarkable Speech: Tangential Mood: Euthymic and Anxious Affect: Appropriate Thought Process: Intact, Linear and Logical Thought Content: Intact Hallucinations: None Insight: Fair Judgement: Poor (improved) Vital Signs (Past 24 Hours): Last Vital Signs Temp 36.6 C 11/27/23 07:36 Pulse 77 11/27/23 07:36 Resp 18 11/27/23 07:36 BP 142/77 H 11/27/23 07:36 Pulse Ox 97 11/27/23 08:00 O2 Del Method Room Air 11/27/23 08:00 Results & Data (PSY) Medications Administered Buspirone HCl (Buspirone 5 Mg Tab) 20 mg PO TID ARMANI Stop: 12/26/23 13:59 Last Admin: 11/27/23 08:04 Dose: 20 mg Documented By: Admin: 11/26/23 21:14 Dose: 20 mg Documented By: Admin: 11/26/23 14:51 Dose: 20 mg Documented By: JERILYNK Escitalopram Oxalate (Escitalopram Oxalate 10 Mg Tab) 10 mg PO QAM [facility] Stop: 12/27/23 08:59 Last Admin: 11/27/23 08:05 Dose: 10 mg Documented By: SHARI Fluticasone/Vilanterol (Fluticasone/Vilanterol 200/25mcg 14 Puffs/Inhaler) 1 puffs INH DAILY [facility]; Protocol Stop: 12/27/23 08:59 Last Admin: 11/27/23 08:05 Dose: 1 puffs Documented By: SHARI Folic Acid (Folic Acid 1 Mg Tab) 1 mg PO QAM [facility] Stop: 12/27/23 08:59 Last Admin: 11/27/23 08:05 Dose: 1 mg Documented By: SHARI Gabapentin (Gabapentin 600 Mg Tab) 600 mg PO Q8H ARMANI Stop: 11/28/23 04:01 Last Admin: 11/27/23 11:57 Dose: 600 mg Documented By: SHARI Lorazepam 1 mg/ Syringe 1 mls @ 2 mls/min IV UD PRN; Protocol PRN Reason: EtOH Withdrawal AWSS Score 6,7 Stop: 12/26/23 14:13 Last Admin: 11/26/23 17:59 Dose: 2 mls/min Documented By: YANG Insulin Aspart (Insulin Aspart Per Unit Charge) 0 units SC ACHS [facility]; Protocol Stop: 12/26/23 20:59 Last Admin: 11/27/23 11:57 Dose: 10 units Documented By: SHARI Co-signed By: LOUISE Admin: 11/27/23 08:04 Dose: 6 units Documented By: SHARI Co-signed By: CHANI Admin: 11/26/23 21:14 Dose: 7 units Documented By: LILLIAN Co-signed By: GAEL Insulin Glargine (Lantus Per Unit Charge) 20 units SC DAILY [facility]; Protocol Stop: 12/27/23 08:59 Last Admin: 11/27/23 08:04 Dose: 20 units Documented By: SHARI Co-signed By: CHANI Thiamine HCl (Thiamine Hcl 100 Mg Tab) 100 mg PO QAM [facility] Stop: 12/27/23 08:59 Last Admin: 11/27/23 08:05 Dose: 100 mg Documented By: SHARI Trazodone HCl (Trazodone Hcl 50 Mg Tab) 50 mg PO QPM [facility] Stop: 12/26/23 20:59 Last Admin: 11/26/23 21:14 Dose: 50 mg Documented By: CB [place] [address] IN/OBS CONSULT LVL 5,80M Patient Type New History Expanded Problem Focused Exam Expanded Problem Focused Medical Decision Making Moderate Complexity Diagnoses MDD (major depressive disorder), recurrent, in partial remission F33.41 Alcohol withdrawal F10.939 Alcohol dependence F10.231 Complication of substance-induced condition: with delirium Substance use status: in withdrawal History of suicidal ideation Z86.59 Time Spent (min) 45
--- NOTE | 2023-11-27 13:12 | Pharmacy Report ---
Pharmacy Glycemic Short Note 2 - Date of Service November 27, 2023 - Glycemic Short BSG Results (Last 24 hours): 11/26/23 11/26/23 11/26/23 17:27 19:36 21:03 Glucose POC Glucose 101 H 325 H* 328 H* 11/27/23 11/27/23 11/27/23 00:04 04:28 06:16 Glucose 176 H POC Glucose 147 H 145 H 11/27/23 11/27/23 11/27/23 07:34 10:47 10:50 Glucose POC Glucose 222 H 311 H* 305 H* OUTPATIENT ANTIDIABETIC REGIMEN: * Novolin 70/30 - 35 units SC w/ breakfast and 15 units SC w/ dinner * HbA1c: 8.9% (09/10/23) ASSESSMENT: 11/26: * Marcus received 28 units of insulin yesterday, 10 basal + 7 IV + 11 bolus. BSGs were [phone] mg/dL. * Patient had an uncovered dinner last night in the ED which led to 328 mg/dL BSG before bed. * Now ordered and tolerating a T1DM diet. * AM fasting was 222 mg/dL. Will double basal dose today. This dose has previously worked well for this patient. * Lunchtime BSG trended up to 305 mg/dL, therefore will tightened carb ratio slightly. 11/25: * RB is a 48 year old female known to pharmacy glycemic service due to poorly controlled T1DM and history of alcohol withdrawal * Presented to ED with concern for alcohol withdrawal and for evaluation of suicidal ideation * Presenting blood sugar ~400 mg/dL, elevated anion gap of 23, marginally low serum bicarb of 18, and normal VBG pH of 7.4. * No obvious DKA picture based on labs * Patient received 7 units of IV insulin in ED and blood sugar improved to 225 mg/dL * Discussed with hospitalist and will attempt to manage w/ SC insulin at this time * Patient is NPO at this time. PLAN FOR INPATIENT GLYCEMIC CONTROL: * Hold 70/30 insulin while in hospital * Basal insulin * Lantus 20 units SC daily * Bolus insulin * NovoLog per scale ACHS or Q6hrs while NPO * Goal Range: Low 110 mg/dL - High 140 mg/dL * Correction Factor: 30 mg/dL/unit * Nutritional / Prandial insulin per carb ratio of 1 unit per 9 grams CHO consumed
--- NOTE | 2023-11-27 13:46 | Hospitalist Progress Note ---
Date of Service November 27, 2023 Assessment & Plan (1) Alcohol withdrawal: Plan: Marcus Avelar is a 48y/o F with PMHx of alcohol abuse, alcohol withdrawal, pancreatitis, [facility] admission for suicidal ideations, type I DM, splenomegaly, hepatic steatosis, asthma, GI bleed and other problems listed below who presents to the ED for evaluation of suicidal ideations and alcohol withdrawal symptoms. Found to be actively withdrawing from alcohol. Of note, patient was recently hospitalized here @ [facility] from 09/09/23-09/12/23 w/ principal diagnoses of DKA, alcohol use disorder and liver cirrhosis. Per that discharge summary, patient has previously been noncompliant with insulin therapy . She was also hospitalized from 07/02/23-07/04/23 here @ [facility] for severe DKA, DM type I as well. Following that most recent hospitalization, it appears patient was open to discussing inpatient rehab for alcohol detoxification as well as psychiatric outpatient therapy. Patient does have a prominent psychiatric history. Per most previous discharge summary, patient was taking BuSpar 3 times daily and mirtazapine at bedtime. It is documented that she has tried Celexa in the past, but ultimately did not tolerate this medication and subsequently has been taking mirtazapine instead. Appears from previous documentation that the patient's drinks of choice include vodka and wine. It is also evident that the patient has suffered from anxiety attacks in the past. It has been previously documented that the patient is aware of her need to stop drinking alcohol. Patient reports that her last drink was yesterday.-11/25/2023 states she last consumed 1 bottle of vodka and 1 bottle of wine. Feels she is currently withdrawing from alcohol, reports increasing severity of extremity tremors. -Alcohol withdrawal protocol in place, will receive an additional 1L NSS upon transfer. -NPO for now given current nausea, can advance diet as tolerated --> order in place. Continue thiamine & folate. -PRN IV Zofran for breakthrough N/V; will hold off on PRN Tylenol order for now given hx of cirrhosis, alcohol abuse. -Gabapentin protocol in place according to alcohol withdrawal guidelines. Bowel regimen in place, PRN Miralax. -Clinically much better and denies any significant symptoms -No more tremors and has been ambulating in the room without any difficulties -She wants to go home (2) Depression with suicidal ideation: Plan: As per HPI: States she was suicidal at home, had plans to overdose on ibuprofen and acetaminophen. Reports that she did not take any of those medications at home, but was considering it. Patient mentions that her psychiatric medication regimen was subsequently changed following her most recent discharge in August. She reports that she is now currently taking Lexapro, trazodone and BuSpar. Patient states that these medications seem to be working better than her previous regimen of mirtazapine and Celexa. However, she has noticed an increase in her feelings of depression and anxiety. States she has "a lot of things going on" and cannot manage herself appropriately at home. Previously, patient was taking BuSpar 3 times daily and mirtazapine at bedtime. Tox screen displays evidence of ethyl alcohol (153.0), but is otherwise negative. --> No evidence of acetaminophen or salicylate toxicity, negative for any illicit drugs. -Will continue [employer] Lexapro, trazodone and BuSpar for now. -Continue to closely monitor patient for any acute behavioral changes. -Psychiatry consult placed, appreciate their recommendations/input moving forward. -Appreciate psychiatry's input and recommendation -No suicidal ideation and does not require any inpatient psychiatric care -Psychiatrically stable to be discharged-no change in her current medication and she has an appointment with outpatient psychiatrist (3) Diabetes mellitus type 1: (4) Metabolic acidosis due to diabetes mellitus: Plan: Doubt any diabetic ketoacidosis Mild acidosis likely secondary to nausea -Glycemic protocol initiated by pharmacy, insulin regimen is in place per their discretion. inclusion special educator consulted --> Appreciate input/recommendations. -Hx of pancreatitis so GLP-1 not an option, Jardiance caused vaginitis and unable to tolerate metformin (even at very low doses). -Continue to closely monitor blood glucose levels, ensure anion gap closure. --> Repeat CMP in AM to trend anion gap. -No more acidosis and blood sugar remains stable (5) History of alcohol abuse: (6) Cirrhosis: (7) Elevated LFTs: Plan: Patient reports that her last drink was yesterday. States she last consumed 1 bottle of vodka and 1 bottle of wine. Feels she is currently withdrawing from alcohol, reports increasing severity of extremity tremors. Secondary to alcoholism cirrhosis LFTs are getting better Strongly advised to quit drinking (8) Abnormal TSH: Plan: As per above, TSH slightly elevated @ 6.678, however free T4 w/in normal range --> 0.74. -Will hold off on rechecking TSH in AM, as it is likely elevated given the whole situation at hand. --> ? Sick thyroid ? -Consider rechecking her TSH level sometime in the following weeks after d/c (~6 weeks). -No change will be made at in her antithyroid medication (9) History of asthma: Plan: SpO2 currently 94% on RA --> No evidence of SOB, wheezing. No acute respiratory concerns at this time. -Continue [employer] PRN albuterol inhaler and daily Advair Diskus therapy. * Make sure patient is properly rinsing out her mouth after Advair Diskus use to prevent thrush. * -No attack of asthma and or wheezing (10) History of recent fall: Plan: As per HPI: Patient does endorse a fall over the past weekend during which she hit her head. Patient denies ever losing consciousness, but does states she had a bump on the right side of her SOB. Has been complaining of some intermittent dizziness, blurry vision since then. Denies any other fall or difficulty with ambulation. -Physical examination was benign, as per below --> No focal or visual deficits. -Will order head CT to r/o any acute concerns, establish baseline findings as a precautionary measure. DVT Prophylaxis: SCDs - For now. * Was on SQ heparin during her most recent admission in August. Code Status: Full Code PCP: Krystin Graves MD Dispo: Admit to PCU/Telemetry Admission and Anticipated Discharge Date Admission Date: November 26, 2023 Subjective 11/27/2023 The patient was seen and examined in telemetry unit She has been feeling much better and does not have any tremors with outstretched hands Denies any palpitation and denies any suicidal ideation sHe has been ambulating in the room without any difficulties Was seen by the psychiatrist and was advised that she could be discharged Review of Systems Review of Systems: At least ten systems reviewed and negative, except as noted in the HPI. Physical Exam Physical Exam: Lying in bed without any acute distress Constitutional: well developed and well nourished; not ill appearing Eyes: PERRL, conjunctivae normal, anicteric sclerae ENMT: external ear and nose normal, oropharynx normal Neck: trachea midline, no thyromegaly Respiratory: no respiratory distress Auscultation: lungs clear to auscultation bilaterally Cardiovascular: Rate/Rhythm: regular rate and regular rhythm; not tachycardic Heart Sounds: normal S1 and normal S2; no murmur Extremities: no edema Gastrointestinal (Abdomen): Inspection/Auscultation: normal bowel sounds; abdomen not distended Percussion/Palpation: abdomen soft; abdomen nontender Musculoskeletal: No acute arthritis involving any of the joint Neurologic: normal touch/pain/proprioception and moves all extremities; no focal motor deficits No tremors with outstretched hands Psychiatric: A+Ox3, euthymic affect Lymphatic: no cervical or axillary lymphadenopathy Results & Data Results & Data Vital Signs (Past 12 Hours) Vital Signs Temp Pulse Pulse Pulse Resp BP Pulse Ox 11/27/23 12:50 36.6 C 87 18 135/86 98 11/27/23 08:00 11/27/23 07:36 36.6 C 88 18 142/77 H 98 11/27/23 07:00 69 11/27/23 03:31 36.5 C 61 18 107/64 96 Pulse Ox O2 Del Method O2 Del Method 11/27/23 12:50 Room Air 11/27/23 08:00 97 Room Air 11/27/23 07:36 Room Air 11/27/23 07:00 11/27/23 03:31 Room Air Laboratory Results Short CBC 11/27/23 Range/Units 06:16 WBC 1.43 L (4.8-10.8) K/ul Hgb 12.4 D (12.0-16.0) g/dl Hct 36.0 L (37.0-47.0) % Plt Count 81 L D (130-400) K/uL BMP 11/27/23 06:16 Sodium 136 Potassium 4.2 Chloride 102 Carbon Dioxide 28 BUN 15 Creatinine 0.63 Glucose 176 H Calcium 9.8 Liver Function 11/27/23 Range/Units 06:16 Total Bilirubin 1.3 H (0.2-1.0) mg/dl AST 84 H (13-39) U/L ALT 68 H (7-52) U/L Alkaline Phosphatase 196 H (34-104) U/L Albumin 3.9 (3.4-5.0) gm/dl Medications Administered Current Inpatient Medications Albuterol (Albuterol Hfa 8 Gm Inhaler) 2 puffs INH UD PRN PRN Reason: Shortness Of Breath Stop: 12/26/23 11:33 Buspirone HCl (Buspirone 5 Mg Tab) 20 mg PO TID [facility] Stop: 12/26/23 13:59 Last Admin: 11/27/23 13:31 Dose: 20 mg Dextrose (Dextrose 50% 50 Ml Syringe) 25 - 50 ml IV UD PRN; Protocol PRN Reason: Hypoglycemia Protocol Stop: 12/26/23 09:14 Escitalopram Oxalate (Escitalopram Oxalate 10 Mg Tab) 10 mg PO QAM [facility] Stop: 12/27/23 08:59 Last Admin: 11/27/23 08:05 Dose: 10 mg Fluticasone/Vilanterol (Fluticasone/Vilanterol 200/25mcg 14 Puffs/Inhaler) 1 puffs INH DAILY [facility]; Protocol Stop: 12/27/23 08:59 Last Admin: 11/27/23 08:05 Dose: 1 puffs Folic Acid (Folic Acid 1 Mg Tab) 1 mg PO QAM [facility] Stop: 12/27/23 08:59 Last Admin: 11/27/23 08:05 Dose: 1 mg Gabapentin (Gabapentin 600 Mg Tab) 600 mg PO Q8H [facility] Stop: 11/28/23 04:01 Last Admin: 11/27/23 11:57 Dose: 600 mg Gabapentin (Gabapentin 600 Mg Tab) 600 mg PO Q12H [facility] Stop: 11/29/23 04:01 Gabapentin (Gabapentin 600 Mg Tab) 600 mg PO Q24H [facility] Stop: 11/30/23 04:01 Glucagon (Glucagon For Inj 1 Mg Vial) 1 mg IM UD PRN; Protocol PRN Reason: Hypoglycemia Protocol Stop: 12/26/23 09:14 Glucose (Glucose 40% Gel 15 Gm Tube) 15 - 30 gm PO UD PRN; Protocol PRN Reason: Hypoglycemia Protocol Stop: 12/26/23 09:14 Glucose (Glucose 10 Tab/Tube) 4 - 8 tab PO UD PRN; Protocol PRN Reason: Hypoglycemia Protocol Stop: 12/26/23 09:14 Lorazepam 1 mg/ Syringe 1 mls @ 2 mls/min IV UD PRN; Protocol PRN Reason: EtOH Withdrawal AWSS Score 6,7 Stop: 12/26/23 14:13 Last Admin: 11/26/23 17:59 Dose: 2 mls/min Lorazepam 2 mg/ Syringe 2 mls @ 2 mls/min IV UD PRN; Protocol PRN Reason: EtOH Withdrawal AWSS Score 8,9 Stop: 12/26/23 14:13 Lorazepam 3 mg/ Syringe 3 mls @ 2 mls/min IV ONCE PRN; Protocol PRN Reason: EtOH Withdrawal AWSS Score 10+ Insulin Aspart (Insulin Aspart Per Unit Charge) 0 units SC ACHS [facility]; Protocol Stop: 12/26/23 20:59 Last Admin: 11/27/23 11:57 Dose: 10 units Insulin Glargine (Lantus Per Unit Charge) 20 units SC DAILY [facility]; Protocol Stop: 12/27/23 08:59 Last Admin: 11/27/23 08:04 Dose: 20 units Miscellaneous (Carbohydrates For Hypoglycemia ) 15 - 30 gm PO UD PRN PRN Reason: Hypoglycemia Treatment Stop: 12/26/23 09:14 Miscellaneous Information (Pharmacy Glycemic Mgmt Consult) 1 each N/A UD PRN; Protocol PRN Reason: Consult Stop: 12/26/23 07:51 Ondansetron HCl (Ondansetron Inj 2 Mg/Ml 2 Ml Vial) 4 mg IV Q6H PRN PRN Reason: Nausea Stop: 12/26/23 14:13 Polyethylene Glycol (Polyethylene (Miralax) 17 Gm Pack) 17 gm PO DAILY PRN PRN Reason: Constipation Stop: 12/26/23 14:13 Thiamine HCl (Thiamine Hcl 100 Mg Tab) 100 mg PO QAM [facility] Stop: 12/27/23 08:59 Last Admin: 11/27/23 08:05 Dose: 100 mg Trazodone HCl (Trazodone Hcl 50 Mg Tab) 50 mg PO QPM [facility] Stop: 12/26/23 20:59 Last Admin: 11/26/23 21:14 Dose: 50 mg (1) Alcohol withdrawal Complication of substance-induced condition: with delirium Qualified Code(s): F10.931 - Alcohol use, unspecified with withdrawal delirium (3) Diabetes mellitus type 1 Diabetes mellitus complication status: without complication Qualified Code(s): E10.9 - Type 1 diabetes mellitus without complications (6) Cirrhosis Hepatic cirrhosis type: alcoholic cirrhosis Ascites presence: without ascites Qualified Code(s): K70.30 - Alcoholic cirrhosis of liver without ascites
--- NOTE | 2023-11-28 07:33 | Discharge Summary ---
Date of Service November 28, 2023 Admission HPI Per Admitting Provider Marcus Avelar is a 48y/o F with PMHx of alcohol abuse, alcohol withdrawal, pancreatitis, BHU admission for suicidal ideations, type I DM, splenomegaly, hepatic steatosis, asthma, GI bleed and other problems listed below who presents to the ED for evaluation of suicidal ideations and alcohol withdrawal symptoms. History obtained from patient, and associated ED/previous hospitalization/PCP records. Of note, patient was recently hospitalized here @ [facility] from 09/09/23-09/12/23 w/ principal diagnoses of DKA, alcohol use disorder and liver cirrhosis. Per that discharge summary, patient has previously been noncompliant with insulin therapy . She was also hospitalized from 07/02/23-07/04/23 here @ [facility] for severe DKA, DM type I as well. Following that most recent hospitalization, it appears patient was open to discussing inpatient rehab for alcohol detoxification as well as psychiatric outpatient therapy. Patient does have a prominent psychiatric history. Per most previous discharge summary, patient was taking BuSpar 3 times daily and mirtazapine at bedtime. It is documented that she has tried Celexa in the past, but ultimately did not tolerate this medication and subsequently has been taking mirtazapine instead. Appears from previous documentation that the patient's drinks of choice include vodka and wine. It is also evident that the patient has suffered from anxiety attacks in the past. It has been previously documented that the patient is aware of her need to stop drinking alcohol. Patient seen at bedside. Patient reports that her last drink was yesterday. States she last consumed 1 bottle of vodka and 1 bottle of wine. Feels she is currently withdrawing from alcohol, reports increasing severity of extremity tremors. She is requesting something for the shakiness/tremors. States she was suicidal at home, had plans to overdose on ibuprofen and acetaminophen. Reports that she did not take any of those medications at home, but was considering it. Patient mentions that her psychiatric medication regimen was subsequently changed following her most recent discharge in August. She reports that she is now currently taking Lexapro, trazodone and BuSpar. Patient states that these medications seem to be working better than her previous regimen of mirtazapine and Celexa. However, she has noticed an increase in her feelings of depression and anxiety. States she has "a lot of things going on" and cannot manage herself appropriately at home. Patient does live alone in an apartment with her cat. States her parents live approximately [address] She would like to get in contact with her parents, as they will need to attend to her cat and apartment. She has made her boss aware that she was planning on coming to the hospital today. She was brought into the ED today via EMS, she reports calling 911 herself to avoid overdosing as per above. She was continually dry heaving and feeling nauseous throughout our conversation, so I did order an additional 4 mg IV dose of Zofran to be given in the ED. She denies any previous episodes of vomiting [employer], but has vomited "a little bit" in the ED. Patient does endorse a fall over the past weekend during which she hit her head. Patient denies ever losing consciousness, but does states she had a bump on the right side of her SOB. Has been complaining of some intermittent dizziness, blurry vision since then. Denies any other falls. She does have a history of asthma, but states she is currently well-controlled on Advair therapy. She has not noticed herself wheezing at all. Reports no recent illnesses or sick contacts. She denies any abdominal pain or bowel/urinary habit changes. Patient understanding of need for psychiatric intervention at this point. States she "wants to feel better" in regard to her alcohol withdrawal symptoms in order to address her mental health concerns. Labs performed in the ED displayed the following: * NO evidence of anemia --> RBC 5.10, Hgb 15.6, Hct 44.2 and Plt Count 165. * Slightly hyponatremic @ 132, potassium w/in normal range @ 4.6, chloride slightly decreased @ 91. * CO2 18, anion gap 23 --> Appears to have METABOLIC ACIDOSIS on admission. * Evidence of transaminitis - total bili 1.3, AST 119, ALT 88 and Alk Phos 260. * TSH slightly elevated @ 6.678, however free T4 w/in normal range --> 0.74. Glucose 401 on arrival to ED, downtrended to 225 ~9am following administration of insulin in the ED. ABG = pH 7.40, pCO2 30, pO2 110, HCO3 19 and O2 sat 98.6%. --> NO evidence of DKA on admission given those lab findings UA conducted in the ED revealed the followin+ protein, 3+ glucose, 2+ ketones, trace leukocyte esterase and WBC 6-10. Tox screen displays evidence of ethyl alcohol (153.0), but is otherwise negative. --> No evidence of acetaminophen or salicylate toxicity, negative for any illicit drugs. Admission Exam Per Admitting Provider Physical Exam: General Appearance: Conversing appropriately, tremulous behavior in all extremities. Head: Normocephalic, atraumatic. Eyes: Normal inspection, PERRL, conjunctivae normal, anicteric sclerae. ENT: External ear and nose normal, oropharynx normal. Neck: Normal visual inspection, trachea midline, no thyromegaly. Respiratory: Normal respiratory effort, lungs clear to auscultation, no wheezing, rales, rhonchi. No accessory muscle use. Cardiovascular: Tachycardic, regular rhythm, no murmur, normal peripheral pulses, no BLE edema. Vessels: No JVD. Chest: Normal inspection of chest. Abdomen/GI: Normal bowel sounds, soft, nontender, no hepatosplenomegaly. Extremities/Musculoskeletal: No cyanosis or clubbing, extremities motor strength 5/5. Neurologic: PERRL, EOMI, accommodation nl, no face palsy, no dysarthria, CN's II-XI intact bilaterally and moves all extremities Psychiatric: A+Ox3, nervous affect. Admits to suicidal thoughts, significant alcohol use as per above. Skin: No rashes, normal color, warm/dry. Principal Diagnosis Alcoholism with withdrawal, depression and anxiety Discharge Exam Lying in bed without any acute distress Constitutional well developed and well nourished; not ill appearing Eyes PERRL, conjunctivae normal, anicteric sclerae ENMT external ear and nose normal, oropharynx normal Neck trachea midline, no thyromegaly Respiratory no respiratory distress Auscultation: lungs clear to auscultation bilaterally Cardiovascular Rate/Rhythm: regular rate and regular rhythm; not tachycardic Heart Sounds: normal S1 and normal S2; no murmur Extremities: no edema Gastrointestinal (Abdomen) Inspection/Auscultation: normal bowel sounds; abdomen not distended Percussion/Palpation: abdomen soft; abdomen nontender Neurologic normal touch/pain/proprioception and moves all extremities; no focal motor deficits Psychiatric A+Ox3, euthymic affect Lymphatic no cervical or axillary lymphadenopathy Discharge Data Allergies Allergy/AdvReac Type Severity Reaction Status Date / Time doxycycline Allergy Severe Muscle Pain Verified 11/26/23 08:30 theophylline AdvReac Intermediate VERTIGO Verified 11/26/23 08:30 Consultations 11/26/23 07:35 ED Decision to Admit Stat 11/26/23 09:41 Consult Psychiatry Routine Ordered Studies 11/26/23 10:[address] [CT head/brain wo con] Routine Hospital Course (1) Alcohol withdrawal: Marcus Avelar is a 48y/o F with PMHx of alcohol abuse, alcohol withdrawal, pancreatitis, BHU admission for suicidal ideations, type I DM, splenomegaly, hepatic steatosis, asthma, GI bleed and other problems listed below who presents to the ED for evaluation of suicidal ideations and alcohol withdrawal symptoms. Found to be actively withdrawing from alcohol. Of note, patient was recently hospitalized here @ [facility] from 09/09/23-09/12/23 w/ principal diagnoses of DKA, alcohol use disorder and liver cirrhosis. Per that discharge summary, patient has previously been noncompliant with insulin therapy . She was also hospitalized from 07/02/23-07/04/23 here @ [facility] for severe DKA, DM type I as well. Following that most recent hospitalization, it appears patient was open to discussing inpatient rehab for alcohol detoxification as well as psychiatric outpatient therapy. Patient does have a prominent psychiatric history. Per most previous discharge summary, patient was taking BuSpar 3 times daily and mirtazapine at bedtime. It is documented that she has tried Celexa in the past, but ultimately did not tolerate this medication and subsequently has been taking mirtazapine instead. Appears from previous documentation that the patient's drinks of choice include vodka and wine. It is also evident that the patient has suffered from anxiety attacks in the past. It has been previously documented that the patient is aware of her need to stop drinking alcohol. Patient reports that her last drink was yesterday.-11/25/2023 states she last consumed 1 bottle of vodka and 1 bottle of wine. Feels she is currently withdrawing from alcohol, reports increasing severity of extremity tremors. -Alcohol withdrawal protocol in place, will receive an additional 1L NSS upon transfer. -NPO for now given current nausea, can advance diet as tolerated --> order in place. Continue thiamine & folate. -PRN IV Zofran for breakthrough N/V; will hold off on PRN Tylenol order for now given hx of cirrhosis, alcohol abuse. -Gabapentin protocol in place according to alcohol withdrawal guidelines. Bowel regimen in place, PRN Miralax. -Clinically much better and denies any significant symptoms -No more tremors and has been ambulating in the room without any difficulties -She wants to go home (2) Depression with suicidal ideation: As per HPI: States she was suicidal at home, had plans to overdose on ibuprofen and acetaminophen. Reports that she did not take any of those medications at home, but was considering it. Patient mentions that her psychiatric medication regimen was subsequently changed following her most recent discharge in August. She reports that she is now currently taking Lexapro, trazodone and BuSpar. Patient states that these medications seem to be working better than her previous regimen of mirtazapine and Celexa. However, she has noticed an increase in her feelings of depression and anxiety. States she has "a lot of things going on" and cannot manage herself appropriately at home. Previously, patient was taking BuSpar 3 times daily and mirtazapine at bedtime. Tox screen displays evidence of ethyl alcohol (153.0), but is otherwise negative. --> No evidence of acetaminophen or salicylate toxicity, negative for any illicit drugs. -Will continue [employer] Lexapro, trazodone and BuSpar for now. -Continue to closely monitor patient for any acute behavioral changes. -Psychiatry consult placed, appreciate their recommendations/input moving forward. -Appreciate psychiatry's input and recommendation -No suicidal ideation and does not require any inpatient psychiatric care -Psychiatrically stable to be discharged-no change in her current medication and she has an appointment with outpatient psychiatrist (3) Diabetes mellitus type 1: (4) Metabolic acidosis due to diabetes mellitus: Doubt any diabetic ketoacidosis Mild acidosis likely secondary to nausea -Glycemic protocol initiated by pharmacy, insulin regimen is in place per their discretion. clinical staff educator consulted --> Appreciate input/recommendations. -Hx of pancreatitis so GLP-1 not an option, Jardiance caused vaginitis and unable to tolerate metformin (even at very low doses). -Continue to closely monitor blood glucose levels, ensure anion gap closure. --> Repeat CMP in AM to trend anion gap. -No more acidosis and blood sugar remains stable (5) History of alcohol abuse: (6) Cirrhosis: (7) Elevated LFTs: Patient reports that her last drink was yesterday. States she last consumed 1 bottle of vodka and 1 bottle of wine. Feels she is currently withdrawing from alcohol, reports increasing severity of extremity tremors. Secondary to alcoholism cirrhosis LFTs are getting better Strongly advised to quit drinking (8) Abnormal TSH: As per above, TSH slightly elevated @ 6.678, however free T4 w/in normal range --> 0.74. -Will hold off on rechecking TSH in AM, as it is likely elevated given the whole situation at hand. --> ? Sick thyroid ? -Consider rechecking her TSH level sometime in the following weeks after d/c (~6 weeks). -No change will be made at in her antithyroid medication (9) History of asthma: SpO2 currently 94% on RA --> No evidence of SOB, wheezing. No acute respiratory concerns at this time. -Continue [employer] PRN albuterol inhaler and daily Advair Diskus therapy. * Make sure patient is properly rinsing out her mouth after Advair Diskus use to prevent thrush. * -No attack of asthma and or wheezing (10) History of recent fall: As per HPI: Patient does endorse a fall over the past weekend during which she hit her head. Patient denies ever losing consciousness, but does states she had a bump on the right side of her SOB. Has been complaining of some intermittent dizziness, blurry vision since then. Denies any other fall or difficulty with ambulation. -Physical examination was benign, as per below --> No focal or visual deficits. -Will order head CT to r/o any acute concerns, establish baseline findings as a precautionary measure. DVT Prophylaxis: SCDs - For now. * Was on SQ heparin during her most recent admission in August. Code Status: Full Code PCP: Krystin Graves MD Dispo: Admit to PCU/Telemetry Total Time Total Time Spent Total Time Spent (In Minutes): 35 minutes Discharge Plan Discharge Items Patient Disposition: Home - Self-Care Reason For Visit: DKA, ALCOHOL WITHDRAWL Discharge Diagnosis: Alcoholism with withdrawal, depression and anxiety Condition on Discharge: Good Activity: Resume your previous activity Non-emergency contact: Primary Care Provider Call non-emergency contact if: you have any medication questions and your symptoms worsen Follow-up/Referrals: Krystin Graves MD [Primary Care Provider] - (Date & Time 12/05/2023 11:00 AM Provider Krystin Graves MD Department [facility] ) Diet: Regular Addtl Attending Provider Instructions: Please take precautions to avoid falls Strongly advised to quit alcohol intake Strongly advised to keep appointments with the outpatient alcohol Anonymous group Please keep appointment with your outpatient psychiatrist Keep appointment with healthcare providers Pending Studies at Discharge: No Stand-Alone Forms: My [facility], Smoking Cessation Medications and DC Order Prescriptions: New gabapentin 600 mg Tablet 600 mg PO UD Qty: 4 0RF Rx Instructions: 1 tablet tonight, 1 tablet twice daily tomorrow, 1 tablet day after tomorrow. Continued fluticasone propion-salmeterol [Advair Diskus] 250-50 mcg/dose blister with device 1 inh inhalation AMPM Rx Instructions: Inhale 1 Puff by mouth in the morning and 1 Puff before bedtime. albuterol sulfate [Ventolin HFA] 90 mcg/actuation Hfa Aerosol Inhaler 2 puff INHALATION UD PRN (Reason: Shortness Of Breath) Rx Instructions: Inhale 2 puffs by mouth 4 times daily PRN for SOB/wheezing. multivitamin [Daily-Harris] Tablet 1 tab PO QAM Qty: 0 0RF buspirone 10 mg tablet 20 mg PO TID Rx Instructions: Take 2 Tablets by mouth in the morning and 2 Tablets at noon and 2 Tablets before bedtime. ascorbic acid (vitamin C) [Vitamin C] 500 mg Tablet Extended Release 500 mg PO DAILY trazodone 50 mg tablet 50 mg PO QPM escitalopram oxalate 10 mg tablet 10 mg PO QAM (DME) pen needle, diabetic [BD Ultra-Fine Gertrude Pen Needle] 32 gauge x 5/32" needle MISCELLANEOUS Rx Instructions: Use to inject insulin 4 times daily. Fiasp FlexTouch U-100 Insulin 100 unit/mL (3 mL) insulin pen 4 - 5 unit SUBCUT TID Rx Instructions: Inject 5 units under the skin before breakfast, 4 units with lunch, and 4 units with dinner. insulin glargine-yfgn [Semglee(insulin glarg-yfgn)Pen] 100 unit/mL (3 mL) insulin pen 32 unit SUBCUT QAM ibuprofen 800 mg tablet 800 mg PO Q8H PRN (Reason: Pain) lorazepam 0.5 mg tablet 0.5 mg PO TID PRN (Reason: Anxiety) thiamine HCl (vitamin B1) 100 mg Tablet 100 mg PO QAM Qty: 30 0RF folic acid 1 mg Tablet 1 mg PO QAM Qty: 30 0RF Discharge Orders: Discharge Order (Routine); Ordered 11/27/23 Ordered By: Brett Vasquez Admission Data Admit Date/Time: 11/26/23 08:07 Attending Provider: Brett Vasquez Admit Provider: Brett Vasquez Primary Care Provider: Krystin Graves Other Providers: Brett Vasquez; Ying Escobar; Kumar Herron; Souleymane Monique Jr; Ana Molina; Bri De La Rosa; Joni Castro Other Interventions: Discharge Summary Assessment (RN) Last Done: 11/27/23 14:55
[2023-11-28] MEDS ORDERED: GABAPENTIN 600 MG TAB PO SCH (16:00)
[2023-11-30] MEDS ORDERED: GABAPENTIN 600 MG TAB PO SCH (04:00)
== END 2023-11-27 15:09 | disposition home or self-care (01) | DRG 897 ==
LOC: ED 04:41 → EDINP 08:07 → 2E 18:28

== ENCOUNTER 2023-12-01 17:19 | Observation (INO) ==
[2023-12-01 18:33] LABS: Hemoglobin 14.6 g/dl (12.0-16.0); Mean Corpuscular Hemoglobin 31.3 pg (25.0-34.0); Mean Corpuscular Hgb Conc 35.6 g/dL (32.0-36.0); Mean Platelet Volume 9.6 fL (9.4-12.4); Nucleated RBC # (auto) 0.02 K/uL (0.00-0.12); Nucleated RBC % (auto) 0.8 %; Platelet Count 125 K/uL (130-400); RDW Coefficient of Variation 14.7 % (11.5-14.5); RDW Standard Deviation 46.9 fL (36.4-46.3); Red Blood Count 4.66 M/uL (4.20-5.40); White Blood Count 2.62 K/ul (4.8-10.8)
[2023-12-01] MEDS: SODIUM CHLORIDE 0.9% 1,000 ML IV SCH (18:35)
[2023-12-01 18:36] LABS: Acetaminophen < 3 ug/ml (10-30); Salicylate < 3.0 mg/dl (3.0-30)
[2023-12-01 18:42] LABS: Albumin Globulin Ratio 1.3 (0.9-2); Albumin Level 4.6 gm/dl (3.4-5.0); BUN Creatinine Ratio 12.5 (10-20); Bilirubin,Total 0.6 mg/dl (0.2-1.0); Creatinine Clr Calc Pharmacy 105.4 ml/min; Est GFR (African American) 122.3 ml/min; Est GFR (Non-African American) 105.5 ml/min; Globulin 3.5 gm/dl (2.5-4.0); Potassium 3.8 mmol/L (3.5-5.1); Total Protein 8.1 gm/dl (6.0-8.3)
--- NOTE | 2023-12-01 18:51 | Emergency Department Note ---
Impression & Plan Mood disorder, Alcohol abuse ED Provider Note NAME: ARIC GRANT AGE: 48 SEX: Female INFORMANT: Patient ED PROVIDER(S): Elliot Gonzales MD CHIEF COMPLAINT: Depression and alcohol abuse PLAN: Disposition: Admission Outpatient prescription management: none Referral: None MEDICAL DECISION MAKING: Patient presented because of recurrent alcohol abuse and noting anxiety depression. She states she is drinking 2 treat her mood. The patient denies any SI or HI. She had an IV established. She was found to have a significant alcohol level. Patient is chronically pancytopenic and neutropenic. Chemistries revealed mild hyperglycemia. Patient does not want to have any insulin stating that she bottoms out too quickly with treatment in the hospital previously. We did discuss this issue. The patient does have mild elevation of her LFTs which are similar. Urinalysis is negative for infection. Patient was given Zofran and several doses of IV Ativan. Tachycardia improved. Her mood was much improved as well. Discussed possible options for treatment with the patient. Also reviewed this with the human services case manager. Due to the concerns about alcohol withdrawal medical admission was felt to be most appropriate. Patient was in agreement. [facility] By[facility]. Patient was evaluated in the ER and admitted for further management Care/management discussed with: none Level of care consideration(s): After review of the information above and other included data, I feel the patient requires escalation of care to admission Triage Nursing notes: reviewed and agree them. Vital Signs: reviewed and remarkable for tachycardia Additional History obtained from: none Chronic Medical/Social Conditions affecting care: mood disorder, alcohol abuse, diabetes Prior/ Outside/ External records reviewed: none Differential Diagnosis: Psychiatric overdose, toxicologic, infection, hypoglycemia, electrolyte abnormalities, cardiac sources, intracerebral event, neurologic, trauma, as well as other pathologies. Diagnostics, independently interpreted by me: ECG: Twelve-lead ECG was sinus tachycardia [address] elevation or depression. No PACs or PVCs Cardiac Monitoring: Cardiac monitoring ordered by me: The patient was placed on continuous cardiac monitoring and observed. It revealed a normal sinus rhythm at 94 beats per minute without ectopy or evidence of dysrhythmia. Medical decision rules: none Imaging studies: Deferred HPI: 48 year old Female arrives for evaluation of depression and alcohol abuse. This started to worsen over the last 4-5 weeks and is worsening. The patient also notes the following associated symptoms, shakes, nausea, vomiting. Denies SI or HI. The patient has found no relieving factors. Current pain is rated as 0/10. Missed her psych medications last two days due to severe depression. Pt denies LOC, headache, fevers, chills, diaphoresis, visual changes, neck pain, chest pain, breathing difficulties, abdominal pain, back pain, melena, hematochezia, urinary symptoms, numbness, weakness, lymphadenopathy, rash, or other complaints. PAST MEDICAL HISTORY: See Below, ETOH abuse PAST SURGICAL HISTORY: See Below, SOCIAL HISTORY: See Below, +etoh HOME MEDICATIONS: See Below ALLERGIES: See Below VITALS: See Below PHYSICAL EXAMINATION: GENERAL: Awake, alert, anxious-appearing, in no distress HENT: Normocephalic, atraumatic. Oropharynx unremarkable. EYES: Normal conjunctiva. Sclera non-icteric. NECK: Inspection normal. Non-tender. Supple. No nuchal rigidity. FROM. No masses. RESPIRATORY: Clear to auscultation. No wheezes. No rales. Normal respiratory effort. CARDIAC: Borderline tachycardic rate. Normal rhythm. No murmurs. No rubs. Extremities warm and well perfused. Pulses equal. No JVD. GI: Soft, non-distended. No tenderness to palpation. No rebound or guarding. No masses. RECTAL: Deferred. MUSCULOSKELETAL: Atraumatic. Chest examination reveals no tenderness. The back is symmetrical on inspection without obvious abnormality. There is no CVA tenderness to palpation. No joint edema. LOWER EXTREMITIES: Calves are equal size bilaterally and non-tender. No edema. No discoloration. NEURO: Normal sensorium. No sensory or motor deficits noted. SKIN: No rash or jaundice noted. PSYCH: Depressed mood, no SI, No HI, no hallucination. PROCEDURES: none CRITICAL CARE: none OBSERVATION NOTE: none Past Med/Surg History Problem List Alcohol use disorder, moderate, dependence Alcohol abuse (Acute) Mood disorder (Acute) History of suicidal ideation MDD (major depressive disorder), recurrent, in partial remission Suicidal ideation (Acute) Alcohol withdrawal (Acute) DKA (diabetic ketoacidosis) (Acute) History of asthma History of alcohol abuse History of recent fall Alcohol dependence (Acute) Alcohol withdrawal (Acute) Hypophosphatemia DKA (diabetic ketoacidosis) (Acute) Depression with suicidal ideation DKA, type 1 Polycythemia Hypercalcemia Metabolic acidosis due to diabetes mellitus Splenomegaly Hepatic steatosis Anxiety (Acute) Alcoholic hepatitis Nausea and vomiting (Acute) Elevated LFTs (Acute) Depression (Acute) Asthma Neutropenia Gram-positive cocci bacteremia Abscess Metabolic encephalopathy REG (acute kidney injury) Vomiting Elevated LFTs Weakness (Acute) Acute pancreatitis (Acute) REG (acute kidney injury) (Acute) DKA (diabetic ketoacidoses) (Acute) Coffee ground emesis (Acute) Hyperglycemia Alcoholism (Acute) Discharge planning issues MRSA (methicillin resistant Staphylococcus aureus) carrier Acute renal failure (ARF) Electrolyte and fluid disorder Anemia Acute upper GI hemorrhage Urinary tract infection Hypophosphatemia (Acute) Hypokalemia (Acute) Lactic acidosis (Acute) Hypoalbuminemia (Acute) Edema Elevated INR (Acute) Acute liver failure (Acute) Coagulopathy Elevated LFTs (Acute) Tachycardia (Acute) Alcohol abuse (Acute) Asthma Cirrhosis (Acute) GERD (gastroesophageal reflux disease) Abnormal TSH Leukopenia DVT prophylaxis Diabetes Alcohol abuse (Acute) Tremor (Acute) Leukocytopenia, unspecified Thrombocytopenia Anemia Diabetes Pancytopenia Diabetes mellitus type 1 Anxiety (Chronic) Alcohol abuse (Acute) Medical History Acute alcoholic pancreatitis Suicidal ideation Hypophosphatemia Hypomagnesemia Metabolic acidosis Thrush Alcoholic intoxication Thrombocytopenia Alcohol withdrawal Acute alcoholic hepatitis Acidosis, metabolic Acute pancreatitis Electrolyte abnormality DVT prophylaxis Alcohol withdrawal Asthma Surgical History History of dental surgery wisdom teeth History of esophagogastroduodenoscopy (EGD) Family History Father Prediabetes Grandfather (Paternal) Diabetes Mother Hypertension MVP (mitral valve prolapse) Social History Smoking Status: Unknown if ever smoked Tobacco Type: Cigarettes Age Quit Using Tobacco: 39; packs per day: 1; Second Hand Exposure: No; Do You Dip or Chew Tobacco: No; Hx Alcohol Use: Yes Alcohol type: hard liquor Alcohol type Comment: 4 glasses wine daily Hx Substance Use: No Preferred Language: Nauruan Communication Ability: Effective Visual Impairment: No Limitations Lobster Man Required: No Beliefs That Will Affect Care: None marital status: marital status details: Single parent Current Living Situation: Alone Current Living Situation Comment: daughter current occupational status: unemployed How many Children do You have: 1 Other Information That Helps Us Care for You: No Feels Safe at Home: Yes Safety Concerns: Feels Safe At This Time Childhood Exposure to Second-Hand Smoke: No Gender Identity: Female Assistive Devices: None Allergies Allergies Allergy/AdvReac Type Severity Reaction Status Date / Time doxycycline Allergy Severe Muscle Pain Verified 11/26/23 08:30 theophylline AdvReac Intermediate VERTIGO Verified 11/26/23 08:30 Home Meds Home Medications Medication Instructions Recorded Confirmed fluticasone 250 mcg-salmeterol 50 1 inh inhalation QAM 02/27/19 12/01/23 mcg/dose blistr powdr for inhalation (Advair Diskus) albuterol sulfate 90 mcg/actuation 2 puff inhalation UD PRN Shortness 07/23/19 12/01/23 aerosol inhaler (Ventolin HFA) Of Breath ascorbic acid (vitamin C) 500 mg 500 mg PO DAILY 04/05/21 12/01/23 tablet,extended release (Vitamin C ER) buspirone 10 mg tablet 20 mg PO TID 04/22/22 12/01/23 lorazepam 0.5 mg tablet 0.5 mg PO TID PRN Anxiety 09/09/23 12/01/23 escitalopram oxalate 10 mg tablet 10 mg PO QAM 11/26/23 12/01/23 insulin aspart 4 - 5 unit subcut TID 11/26/23 12/01/23 (niacinamide)(U-100) 100 unit/mL(3 mL) subcutaneous pen (Fiasp FlexTouch U-100 Insulin) insulin glargine-yfgn 100 unit/mL 32 unit subcut QAM 11/26/23 12/01/23 (3 mL) subcutaneous pen (Semglee (insulin glargine-yfgn) Pen) pen needle, diabetic 32 gauge x 11/26/23 12/01/23 5/32" (BD Ultra-Fine Gertrude Pen Needle) trazodone 50 mg tablet 50 mg PO QPM 11/26/23 12/01/23 iapamihnnszu-Ze-eyav-minerals 1 tab PO DAILY 12/01/23 12/01/23 zinc acetate 50 mg (zinc) capsule 50 mg PO DAILY 12/01/23 12/01/23 Results & Data (ED) Vital Signs Vital Signs - 24 hr 12/01/23 19:10 12/01/23 19:42 12/01/23 20:24 Temperature Temperature Source Pulse Rate 91 H 100 H Pulse Rate [Left Apical] 103 H Respiratory Rate 20 15 22 Respiratory Effort / Characteristics Non-Labored Spontaneous Respiratory Depth Normal Respiratory Pattern Regular Blood Pressure [Right Arm] 109/79 Blood Pressure Mean [Right Arm] 89 Pulse Oximetry 96 96 94 Oxygen Delivery Method Room Air Room Air Room Air 12/01/23 21:00 12/01/23 21:22 12/01/23 21:30 Temperature Temperature Source Pulse Rate 96 H 100 H 105 H Pulse Rate [Left Apical] Respiratory Rate 20 14 Respiratory Effort / Characteristics Respiratory Depth Respiratory Pattern Blood Pressure [Right Arm] Blood Pressure Mean [Right Arm] Pulse Oximetry 93 95 Oxygen Delivery Method Room Air 12/01/23 21:40 12/01/23 21:57 12/01/23 22:03 Temperature 37.1 C Temperature Source Oral Pulse Rate 99 H 96 H Pulse Rate [Left Apical] 107 H Respiratory Rate 20 19 17 Respiratory Effort / Characteristics Non-Labored Spontaneous Respiratory Depth Normal Respiratory Pattern Regular Blood Pressure [Right Arm] 122/79 Blood Pressure Mean [Right Arm] 93 Pulse Oximetry 95 94 92 Oxygen Delivery Method Room Air Room Air Room Air Laboratory Data 12/02/23 03:56 12/02/23 03:56 Lab Results 12/01/23 12/01/23 Range/Units 17:39 21:37 WBC 2.62 L (4.8-10.8) K/ul RBC 4.66 (4.20-5.40) M/uL Hgb 14.6 (12.0-16.0) g/dl Hct 41.0 (37.0-47.0) % MCV 88.0 (80.0-100.0) fL MCH 31.3 (25.0-34.0) pg MCHC 35.6 (32.0-36.0) g/dL RDW Std Deviation 46.9 H (36.4-46.3) fL RDW Coeff of Suzanne 14.7 H (11.5-14.5) % Plt Count 125 L (130-400) K/uL MPV 9.6 (9.4-12.4) fL Immature Gran % (Auto) 0.4 % Neut % (Auto) 34.4 % Lymph % (Auto) 48.9 % Overton % (Auto) 11.8 % Eos % (Auto) 3.4 % Baso % (Auto) 1.1 % Neut # (Auto) 0.90 L* (1.40-6.50) K/uL Lymph # (Auto) 1.28 (1.20-3.40) K/uL Overton # (Auto) 0.31 (0.11-0.59) K/uL Eos # (Auto) 0.09 (0.00-0.50) K/uL Baso # (Auto) 0.03 (0.00-0.20) K/uL Immature Gran # (Auto) 0.01 (0.01-0.20) K/uL Absolute Nucleated RBC 0.02 (0.00-0.12) K/uL Nucleated RBC % (auto) 0.8 % Sodium 134 L (136-145) mmol/L Potassium 3.8 (3.5-5.1) mmol/L Chloride 100 (98-107) mmol/L Carbon Dioxide 22 (21-32) mmol/L Anion Gap 12 H (3-11) BUN 8 (6-23) mg/dl Creatinine 0.64 (0.6-1.2) mg/dl Est Cr Clr Drug Dosing 105.4 ml/min Est GFR ( Amer) 122.3 ml/min Est GFR (Non-Af Amer) 105.5 ml/min BUN/Creatinine Ratio 12.5 (10-20) Glucose 270 H (70-99(Fasting)) mg/dl Calcium 10.0 (8.6-10.3) mg/dl Total Bilirubin 0.6 (0.2-1.0) mg/dl AST 68 H (13-39) U/L ALT 87 H (7-52) U/L Alkaline Phosphatase 246 H (34-104) U/L Total Protein 8.1 (6.0-8.3) gm/dl Albumin 4.6 (3.4-5.0) gm/dl Globulin 3.5 (2.5-4.0) gm/dl Albumin/Globulin Ratio 1.3 (0.9-2) Lipase 18 (11-82) U/L TSH 1.628 (0.300-4.500) uIu/ml Urine Color Yellow Urine Appearance Clear (Clear) Urine pH 6.0 (4.5-7.5) Ur Specific Welda 1.014 (1.000-1.030) Urine Protein Trace H (Negative) Urine Glucose (UA) 1+ H (Negative) Urine Ketones Trace H (Negative) Urine Blood Negative (Negative) Urine Nitrite Negative (Negative) Urine Bilirubin Negative (Negative) Urine Urobilinogen Negative (Negative) Ur Leukocyte Esterase Negative (Negative) Urine WBC (Auto) 0-5 (0-5) /hpf Urine RBC (Auto) 0-2 (0-2) /hpf U Hyaline Cast (Auto) 0-2 (0-2) /lpf U Epithel Cells (Auto) 0-2 (0-2) /hpf Urine Bacteria (Auto) None Seen (None Seen) Salicylates < 3.0 L (3.0-30) mg/dl Urine Opiates Screen Neg (Neg) Ur Methadone, Qual Neg (Neg) Urine Fentanyl Screen Neg (Neg) Acetaminophen < 3 L (10-30) ug/ml Urine Barbiturates Neg (Neg) Ur Phencyclidine (PCP) Neg (Neg) U Amphetamin/Meth Scrn Neg (Neg) MDMA (Ecstasy) Screen Neg (Neg) U Benzodiazepines Scrn Neg (Neg) Ur Cocaine Metabolite Neg (Neg) U Marijuana (THC) Screen Neg (Neg) Ethyl Alcohol mg/dL 341.5 H (<10.0) mg/dl Administered Medications Ascorbic Acid (Ascorbic Acid 500 Mg Tab) 500 mg PO DAILY [facility] Stop: 01/01/24 08:59 Last Admin: 12/02/23 07:43 Dose: 500 mg Documented By: HS Buspirone HCl (Buspirone 5 Mg Tab) 20 mg PO TID [facility] Stop: 01/01/24 08:59 Last Admin: 12/02/23 14:05 Dose: 20 mg Documented By: Admin: 12/02/23 07:42 Dose: 20 mg Documented By: HS Escitalopram Oxalate (Escitalopram Oxalate 10 Mg Tab) 10 mg PO QAM [facility] Stop: 01/01/24 08:59 Last Admin: 12/02/23 07:43 Dose: 10 mg Documented By: HS Fluticasone/Vilanterol (Fluticasone/Vilanterol 200/25mcg 14 Puffs/Inhaler) 1 puffs INH DAILY [facility] Stop: 01/01/24 08:59 Last Admin: 12/02/23 07:44 Dose: 1 puffs Documented By: RAFFI Folic Acid (Folic Acid 1 Mg Tab) 1 mg PO QAM [facility] Stop: 01/01/24 08:59 Last Admin: 12/02/23 07:42 Dose: 1 mg Documented By: RAFFI Heparin Sodium (Porcine) (Heparin Sod 5,000 Unit/0.5 Ml Vial) 5,000 units SQ Q12 [facility] Stop: 01/01/24 08:59 Last Admin: 12/02/23 07:42 Dose: 5,000 units Documented By: RAFFI Lorazepam 1 mg/ Syringe 1 mls @ 2 mls/min IV UD PRN; Protocol PRN Reason: EtOH Withdrawal AWSS Score 6,7 Stop: 01/01/24 00:33 Last Admin: 12/02/23 01:31 Dose: 2 mls/min Documented By: WILLIAM Insulin Aspart (Insulin Aspart Per Unit Charge) 0 units SC ACHS [facility] Stop: 01/01/24 07:29 Last Admin: 12/02/23 14:05 Dose: Not Given Documented By: Admin: 12/02/23 09:19 Dose: 10 units Documented By: RAFFI Co-signed By: DAPHNE Insulin Glargine (Lantus Per Unit Charge) 32 units SC QAM [facility] Stop: 01/01/24 08:59 Last Admin: 12/02/23 09:19 Dose: 32 units Documented By: RAFFI Co-signed By: DAPHNE Loperamide HCl (Loperamide Hcl 2 Mg Cap) 2 mg PO Q3H PRN PRN Reason: diarrhea Stop: 01/01/24 09:46 Last Admin: 12/02/23 10:23 Dose: 2 mg Documented By: RAFFI Lorazepam (Lorazepam 0.5 Mg Tab) 0.5 mg PO TID PRN PRN Reason: Anxiety Stop: 01/01/24 00:33 Last Admin: 12/02/23 13:00 Dose: 0.5 mg Documented By: KAREN Multivitamins/Minerals (Cerovite Adv Formula Tab) 1 tab PO DAILY [facility] Stop: 01/01/24 08:59 Last Admin: 12/02/23 07:42 Dose: 1 tab Documented By: RAFFI Thiamine HCl (Thiamine Hcl 100 Mg Tab) 100 mg PO QAM ARMANI Stop: 01/01/24 08:59 Last Admin: 12/02/23 07:42 Dose: 100 mg Documented By: RAFFI Zinc Sulfate (Zinc Sulfate 220 Mg Capsule) 220 mg PO DAILY ARMANI Stop: 01/01/24 08:59 Last Admin: 12/02/23 07:42 Dose: 220 mg Documented By: RAFFI Discontinued Medications Gabapentin (Gabapentin 600 Mg Tab) 1,200 mg PO NOW ONE Stop: 12/02/23 00:46 Last Admin: 12/02/23 01:51 Dose: 1,200 mg Documented By: WILLIAM Gabapentin (Gabapentin 600 Mg Tab) 600 mg PO Q6H ARMANI Stop: 12/02/23 12:01 Last Admin: 12/02/23 12:16 Dose: 600 mg Documented By: [facility] Admin: 12/02/23 05:53 Dose: 600 mg Documented By: WILLIAM Sodium Chloride (Nss) 1,000 mls @ 999 mls/hr IV .Q1H1M ARMANI Stop: 12/01/23 19:15 Last Infusion: 12/01/23 20:00 Dose: Infused Documented By: Admin: 12/01/23 18:35 Dose: 999 mls/hr Documented By: OLAMIDE Sodium Chloride (Nss) 1,000 mls @ 100 mls/hr IV .Q10H ARMANI Stop: 12/02/23 12:59 Last Infusion: 12/02/23 17:30 Dose: Infused Documented By: [facility] Admin: 12/02/23 04:02 Dose: 100 mls/hr Documented By: WILLIAM Multivitamins 10 ml/ Thiamine HCl 100 mg/ Folic Acid 1 mg/Sodium Chloride 1,011.2 mls @ 500 mls/hr IV .Q2H2M ONE Stop: 12/02/23 02:46 Last Infusion: 12/02/23 04:41 Dose: Infused Documented By: Admin: 12/02/23 02:11 Dose: 500 mls/hr Documented By: WILLIAM Lorazepam (Lorazepam 1 Mg/1 Ml Syr Ed Inj Use) 2 mg IV ONE STA Stop: 12/01/23 18:53 Last Admin: 12/01/23 19:05 Dose: 2 mg Documented By: OLAMIDE Lorazepam (Lorazepam 1 Mg/1 Ml Syr Ed Inj Use) 2 mg IV ONE STA Stop: 12/01/23 21:50 Last Admin: 12/01/23 21:53 Dose: 2 mg Documented By: [facility] Ondansetron HCl (Ondansetron Inj 2 Mg/Ml 2 Ml Vial) 4 mg IV NOW STA Stop: 12/01/23 18:54 Last Admin: 12/01/23 19:00 Dose: 4 mg Documented By: [facility] Discharge Plan Visit Data Chief Complaint: Alcohol Withdrawal ED Provider: Elliot Gonzales Discharge Problem: Mood disorder, Alcohol abuse Discharge Instructions Interventions: ED Discharge Assessment Last Done: 12/02/23 00:35
[2023-12-01 18:55] LABS: Thyroid Stimulating Hormone 1.628 uIu/ml (0.300-4.500)
[2023-12-01] MEDS: ONDANSETRON INJ 2 MG/ML 2 ML VIAL IV STA (19:00)
[2023-12-01] MEDS: LORazepam 1 MG/1 ML SYR ED Inj Use IV STA ×2 (19:05→21:53)
[2023-12-01 19:14] LABS: Basophils # (auto) 0.03 K/uL (0.00-0.20); Basophils % (auto) 1.1 %; Eosinophils # (auto) 0.09 K/uL (0.00-0.50); Eosinophils % (auto) 3.4 %; Immature Granulocytes # (auto) 0.01 K/uL (0.01-0.20); Immature Granulocytes % (auto) 0.4 %; Lymphocytes # (auto) 1.28 K/uL (1.20-3.40); Lymphocytes % (auto) 48.9 %; Monocytes # (auto) 0.31 K/uL (0.11-0.59); Monocytes % (auto) 11.8 %; Neutrophils % (auto) 34.4 %
[2023-12-01 22:11] LABS: Appearance Urine Clear (Clear); Bacteria Urine Automated None Seen (None Seen); Bilirubin Urine Negative (Negative); Blood Urine Negative (Negative); Cast Urine Automated 0-2 /lpf (0-2); Color Urine Yellow; Epithelial Cell Urine Auto 0-2 /hpf (0-2); Glucose Urine UA 1+ (Negative); Ketones Urine Trace (Negative); Leukocyte Esterase Urine Negative (Negative); Nitrite Urine Negative (Negative); Protein Urine Trace (Negative); RBC Urine Automated 0-2 /hpf (0-2); Specific Gravity Urine 1.014 (1.000-1.030); Urobilinogen Urine Negative (Negative); WBC Urine Automated 0-5 /hpf (0-5)
--- NOTE | 2023-12-01 22:43 | History & Physical Report ---
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 Patient was recently in the hospital with alcoholism and depression with suicidal ideation and seen by psychiatry and did not require any inpatient psychiatric care and did fine discharged home comes back in because of ongoing alcoholism and depression. Patient states she missed some of her psych medications. States drinking 1 bottle of vodka daily. And she was feeling depressed and sad. Denies any suicidal ideation or homicidal ideation. She wanted help so she came to the hospital. Currently resting comfortably. Denies any headache. No dizziness. No runny nose or sore throat. No cough. No fevers. No chest pain or shortness of breath. No nausea. No abdominal pain. Normal bowel and bladder movements. Hemodynamics are okay. Requiring Ativan for anxiety in ER. alcohol abuse ongoing alcoholism states drinking 1 bottle of vodka daily will give banana bag p.o. thiamine and folic acid daily multivitamins alcohol withdrawal protocol with p.o. gabapentin and IV Ativan as needed close monitor depression history of suicidal ideation currently denies any thoughts to hurt herself feeling depressed and sad continue home medications psych consult in a.m. neutropenia leukopenia neutropenic precautions follow vitamin B12 levels consult heme-onc in a.m. 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 Patient was recently in the hospital with alcoholism and depression with suicidal ideation and seen by psychiatry and did not require any inpatient psychiatric care and did fine discharged home comes back in because of ongoing alcoholism and depression. Patient states she missed some of her psych medications. States drinking 1 bottle of vodka daily. And she was feeling depressed and sad. Denies any suicidal ideation or homicidal ideation. She wanted help so she came to the hospital. Currently resting comfortably. Denies any headache. No dizziness. No runny nose or sore throat. No cough. No fevers. No chest pain or shortness of breath. No nausea. No abdominal pain. Normal bowel and bladder movements. Hemodynamics are okay. Requiring Ativan for anxiety in ER. Past med history. As mentioned above past surgical history. Dental surgery and EGD. Social history.Quit smoking 19 and 7 smoked 1 pack a day for 2 years. Currently drinking 1 bottle of vodka daily. No drug use family history. Father had heart disorder. Mother had a heart disorder. Hypertension. Paternal grandmother had diabetes. Allergies Allergy/AdvReac Type Severity Reaction Status Date / Time doxycycline Allergy Severe Muscle Pain Verified 11/26/23 08:30 theophylline AdvReac Intermediate VERTIGO Verified 11/26/23 08:30 Home Medications Medication Instructions Recorded Confirmed Type fluticasone 250 mcg-salmeterol 50 1 inh inhalation QAM 02/27/19 12/01/23 History mcg/dose blistr powdr for inhalation (Advair Diskus) albuterol sulfate 90 mcg/actuation 2 puff inhalation UD PRN Shortness 07/23/19 12/01/23 History aerosol inhaler (Ventolin HFA) Of Breath ascorbic acid (vitamin C) 500 mg 500 mg PO DAILY 04/05/21 12/01/23 History tablet,extended release (Vitamin C ER) buspirone 10 mg tablet 20 mg PO TID 04/22/22 12/01/23 History lorazepam 0.5 mg tablet 0.5 mg PO TID PRN Anxiety 09/09/23 12/01/23 History escitalopram oxalate 10 mg tablet 10 mg PO QAM 11/26/23 12/01/23 History insulin aspart 4 - 5 unit subcut TID 11/26/23 12/01/23 History (niacinamide)(U-100) 100 unit/mL(3 mL) subcutaneous pen (Fiasp FlexTouch U-100 Insulin) insulin glargine-yfgn 100 unit/mL 32 unit subcut QAM 11/26/23 12/01/23 History (3 mL) subcutaneous pen (Semglee (insulin glargine-yfgn) Pen) pen needle, diabetic 32 gauge x 11/26/23 12/01/23 History 532" (BD Ultra-Fine Gertrude Pen Needle) trazodone 50 mg tablet 50 mg PO QPM 11/26/23 12/01/23 History crwfguumzpfy-Nh-qwtm-minerals 1 tab PO DAILY 12/01/23 12/01/23 History zinc acetate 50 mg (zinc) capsule 50 mg PO DAILY 12/01/23 12/01/23 History Past Med/Surg History Problem List Alcohol abuse (Acute) Mood disorder (Acute) History of suicidal ideation MDD (major depressive disorder), recurrent, in partial remission Suicidal ideation (Acute) Alcohol withdrawal (Acute) DKA (diabetic ketoacidosis) (Acute) History of asthma History of alcohol abuse History of recent fall Alcohol dependence (Acute) Alcohol withdrawal (Acute) Hypophosphatemia DKA (diabetic ketoacidosis) (Acute) Depression with suicidal ideation DKA, type 1 Polycythemia Hypercalcemia Metabolic acidosis due to diabetes mellitus Splenomegaly Hepatic steatosis Anxiety (Acute) Alcoholic hepatitis Nausea and vomiting (Acute) Elevated LFTs (Acute) Depression (Acute) Asthma Neutropenia Gram-positive cocci bacteremia Abscess Metabolic encephalopathy REG (acute kidney injury) Vomiting Elevated LFTs Weakness (Acute) Acute pancreatitis (Acute) REG (acute kidney injury) (Acute) DKA (diabetic ketoacidoses) (Acute) Coffee ground emesis (Acute) Hyperglycemia Alcoholism (Acute) Discharge planning issues MRSA (methicillin resistant Staphylococcus aureus) carrier Acute renal failure (ARF) Electrolyte and fluid disorder Anemia Acute upper GI hemorrhage Urinary tract infection Hypophosphatemia (Acute) Hypokalemia (Acute) Lactic acidosis (Acute) Hypoalbuminemia (Acute) Edema Elevated INR (Acute) Acute liver failure (Acute) Coagulopathy Elevated LFTs (Acute) Tachycardia (Acute) Alcohol abuse (Acute) Asthma Cirrhosis (Acute) GERD (gastroesophageal reflux disease) Abnormal TSH Leukopenia DVT prophylaxis Diabetes Alcohol abuse (Acute) Tremor (Acute) Leukocytopenia, unspecified Thrombocytopenia Anemia Diabetes Pancytopenia Diabetes mellitus type 1 Anxiety (Chronic) Alcohol abuse (Acute) Medical History Acute alcoholic pancreatitis Suicidal ideation Hypophosphatemia Hypomagnesemia Metabolic acidosis Thrush Alcoholic intoxication Thrombocytopenia Alcohol withdrawal Acute alcoholic hepatitis Acidosis, metabolic Acute pancreatitis Electrolyte abnormality DVT prophylaxis Alcohol withdrawal Asthma Surgical History History of dental surgery wisdom teeth History of esophagogastroduodenoscopy (EGD) Family History Father Prediabetes Grandfather (Paternal) Diabetes Mother Hypertension MVP (mitral valve prolapse) Social History Smoking Status: Unknown if ever smoked Tobacco Type: Cigarettes Age Quit Using Tobacco: 39; packs per day: 1; Second Hand Exposure: No; Do You Dip or Chew Tobacco: No; Hx Alcohol Use: Yes Alcohol type: hard liquor Alcohol type Comment: 4 glasses wine daily Hx Substance Use: No Preferred Language: Faroese Communication Ability: Effective Visual Impairment: No Limitations Staffing Operations Manager Required: No Beliefs That Will Affect Care: None marital status: marital status details: Single parent Current Living Situation: Alone Current Living Situation Comment: daughter current occupational status: unemployed How many Children do You have: 1 Other Information That Helps Us Care for You: No Feels Safe at Home: Yes Safety Concerns: Feels Safe At This Time Childhood Exposure to Second-Hand Smoke: No Gender Identity: Female Assistive Devices: None Review of Systems Review of Systems: All systems reviewed & are unremarkable except as noted in HPI & below Physical Exam Physical Exam: General- Not in distress Head- atraumatic Eyes- PERRL. ENT- oropharynx clear Neck- supple, no JVD. Lungs- clear to auscultation no wheezing or crackles. Heart- regular rate and rhythm; no murmur, no gallop. Abdomen- normal bowel sounds, soft, nontender, no distension Extremities- no pretibial edema, no erythema seen. Neuro- alert, oriented PERRL, no facial palsy; no dysarthria; moves extremities. Results & Data Results & Data Vital Signs (Past 12 Hours) Vital Signs Temp Pulse Pulse Resp BP BP Pulse Ox 12/01/23 21:40 37.1 C 107 H 20 122/79 95 12/01/23 21:30 105 H 14 95 12/01/23 21:22 100 H 12/01/23 21:00 96 H 20 93 12/01/23 20:24 100 H 22 94 12/01/23 19:42 91 H 15 96 12/01/23 19:10 103 H 20 109/79 96 12/01/23 17:39 101 H 12/01/23 17:28 36.8 C 108 H 18 133/96 95 O2 Del Method 12/01/23 21:40 Room Air 12/01/23 21:30 Room Air 12/01/23 21:22 12/01/23 21:00 12/01/23 20:24 Room Air 12/01/23 19:42 Room Air 12/01/23 19:10 Room Air 12/01/23 17:39 12/01/23 17:28 Room Air Diagnostic Findings Laboratory Results WBC 2.62 K/ul (4.8-10.8) L 12/01/23 17:39 RBC 4.66 M/uL (4.20-5.40) 12/01/23 17:39 Hgb 14.6 g/dl (12.0-16.0) 12/01/23 17:39 Hct 41.0 % (37.0-47.0) 12/01/23 17:39 MCV 88.0 fL (80.0-100.0) 12/01/23 17:39 MCH 31.3 pg (25.0-34.0) 12/01/23 17:39 MCHC 35.6 g/dL (32.0-36.0) 12/01/23 17:39 RDW Std Deviation 46.9 fL (36.4-46.3) H 12/01/23 17:39 RDW Coeff of Suzanne 14.7 % (11.5-14.5) H 12/01/23 17:39 Plt Count 125 K/uL (130-400) L 12/01/23 17:39 MPV 9.6 fL (9.4-12.4) 12/01/23 17:39 Immature Gran % (Auto) 0.4 % 12/01/23 17:39 Neut % (Auto) 34.4 % 12/01/23 17:39 Lymph % (Auto) 48.9 % 12/01/23 17:39 Wirt % (Auto) 11.8 % 12/01/23 17:39 Eos % (Auto) 3.4 % 12/01/23 17:39 Baso % (Auto) 1.1 % 12/01/23 17:39 Neut # (Auto) 0.90 K/uL (1.40-6.50) L* 12/01/23 17:39 Lymph # (Auto) 1.28 K/uL (1.20-3.40) 12/01/23 17:39 Wirt # (Auto) 0.31 K/uL (0.11-0.59) 12/01/23 17:39 Eos # (Auto) 0.09 K/uL (0.00-0.50) 12/01/23 17:39 Baso # (Auto) 0.03 K/uL (0.00-0.20) 12/01/23 17:39 Immature Gran # (Auto) 0.01 K/uL (0.01-0.20) 12/01/23 17:39 Absolute Nucleated RBC 0.02 K/uL (0.00-0.12) 12/01/23 17:39 Nucleated RBC % (auto) 0.8 % 12/01/23 17:39 Sodium 134 mmol/L (136-145) L 12/01/23 17:39 Potassium 3.8 mmol/L (3.5-5.1) 12/01/23 17:39 Chloride 100 mmol/L (98-107) 12/01/23 17:39 Carbon Dioxide 22 mmol/L (21-32) 12/01/23 17:39 Anion Gap 12 (3-11) H 12/01/23 17:39 BUN 8 mg/dl (6-23) 12/01/23 17:39 Creatinine 0.64 mg/dl (0.6-1.2) 12/01/23 17:39 Est Cr Clr Drug Dosing 105.4 ml/min 12/01/23 17:39 Est GFR ( Amer) 122.3 ml/min 12/01/23 17:39 Est GFR (Non-Af Amer) 105.5 ml/min 12/01/23 17:39 BUN/Creatinine Ratio 12.5 (10-20) 12/01/23 17:39 Glucose 270 mg/dl (70-99(Fasting)) H 12/01/23 17:39 Calcium 10.0 mg/dl (8.6-10.3) 12/01/23 17:39 Total Bilirubin 0.6 mg/dl (0.2-1.0) 12/01/23 17:39 AST 68 U/L (13-39) H 12/01/23 17:39 ALT 87 U/L (7-52) H 12/01/23 17:39 Alkaline Phosphatase 246 U/L (34-104) H 12/01/23 17:39 Total Protein 8.1 gm/dl (6.0-8.3) 12/01/23 17:39 Albumin 4.6 gm/dl (3.4-5.0) 12/01/23 17:39 Globulin 3.5 gm/dl (2.5-4.0) 12/01/23 17:39 Albumin/Globulin Ratio 1.3 (0.9-2) 12/01/23 17:39 Lipase 18 U/L (11-82) 12/01/23 17:39 TSH 1.628 uIu/ml (0.300-4.500) 12/01/23 17:39 Urine Color Yellow 12/01/23 21:37 Urine Appearance Clear (Clear) 12/01/23 21:37 Urine pH 6.0 (4.5-7.5) 12/01/23 21:37 Ur Specific Sherrill 1.014 (1.000-1.030) 12/01/23 21:37 Urine Protein Trace (Negative) H 12/01/23 21:37 Urine Glucose (UA) 1+ (Negative) H 12/01/23 21:37 Urine Ketones Trace (Negative) H 12/01/23 21:37 Urine Blood Negative (Negative) 12/01/23 21:37 Urine Nitrite Negative (Negative) 12/01/23 21:37 Urine Bilirubin Negative (Negative) 12/01/23 21:37 Urine Urobilinogen Negative (Negative) 12/01/23 21:37 Ur Leukocyte Esterase Negative (Negative) 12/01/23 21:37 Urine WBC (Auto) 0-5 /hpf (0-5) 12/01/23 21:37 Urine RBC (Auto) 0-2 /hpf (0-2) 12/01/23 21:37 U Hyaline Cast (Auto) 0-2 /lpf (0-2) 12/01/23 21:37 U Epithel Cells (Auto) 0-2 /hpf (0-2) 12/01/23 21:37 Urine Bacteria (Auto) None Seen (None Seen) 12/01/23 21:37 Salicylates < 3.0 mg/dl (3.0-30) L 12/01/23 17:39 Urine Opiates Screen Neg (Neg) 12/01/23 21:37 Ur Methadone, Qual Neg (Neg) 12/01/23 21:37 Urine Fentanyl Screen Neg (Neg) 12/01/23 21:37 Acetaminophen < 3 ug/ml (10-30) L 12/01/23 17:39 Urine Barbiturates Neg (Neg) 12/01/23 21:37 Ur Phencyclidine (PCP) Neg (Neg) 12/01/23 21:37 U Amphetamin/Meth Scrn Neg (Neg) 12/01/23 21:37 MDMA (Ecstasy) Screen Neg (Neg) 12/01/23 21:37 U Benzodiazepines Scrn Neg (Neg) 12/01/23 21:37 Ur Cocaine Metabolite Neg (Neg) 12/01/23 21:37 U Marijuana (THC) Screen Neg (Neg) 12/01/23 21:37 Ethyl Alcohol mg/dL 341.5 mg/dl (<10.0) H 12/01/23 17:39 ECG Additional Comments: ECG. Sinus tachycardia rate of 101. No acute ST changes seen. Code Status & VTE Plan VTE Prophylaxis Plan VTE Prophylaxis will be ordered: Yes
[2023-12-01 22:47] LABS: Amphetamines+Metham, Urine Neg (Neg); Barbiturates, Urine Neg (Neg); Benzodiazepine, Urine Neg (Neg); Cocaine, Urine Neg (Neg); Fentanyl, Urine Neg (Neg); MDMA (Ecstacy), Urine Neg (Neg); Marijuana, Urine Neg (Neg); Methadone, Urine Neg (Neg); Opiate, Urine Neg (Neg); Phencyclidine, Urine Neg (Neg)
[2023-12-02] MEDS ORDERED: NITROGLYCERIN SL 0.4 MG/TAB TAB SL PRN (00:34)
[2023-12-02] MEDS ORDERED: LORazepam 3 MG in SYRINGE 1.5 ML IV PRN (00:34)
[2023-12-02] MEDS ORDERED: GLUCAGON FOR INJ 1 MG VIAL SQ PRN (00:34)
[2023-12-02] MEDS ORDERED: GLUCOSE 40% GEL 15 GM TUBE PO PRN (00:34)
[2023-12-02] MEDS ORDERED: DEXTROSE 50% 50 ML SYRINGE IV PRN (00:34)
[2023-12-02] MEDS ORDERED: Ativan IV Alcohol Withdrawal--Active Protocol IV PRN (00:34)
[2023-12-02] MEDS ORDERED: GLUCOSE 10 TAB/TUBE PO PRN (00:34)
[2023-12-02] MEDS ORDERED: GABAPENTIN 1200MG ALCOHOL WITHDRAWAL LOAD PO STA (00:34)
[2023-12-02] MEDS ORDERED: ALBUTEROL HFA 8 GM INHALER INH PRN (00:34)
[2023-12-02] MEDS ORDERED: LORazepam 2 MG in SYRINGE 1 ML IV PRN (00:34)
[2023-12-02] MEDS ORDERED: CARBOHYDRATES FOR HYPOGLYCEMIA PO PRN (00:34)
[2023-12-02] MEDS: LORazepam 1 MG in SYRINGE 0.5 ML IV PRN (01:31)
[2023-12-02] MEDS: GABAPENTIN 600 MG TAB PO ONE (01:51)
[2023-12-02] MEDS: MULTI-VITAMIN INFUSION 10 ML, THIAMINE HCL 100 MG, FOLIC ACID 1 MG in SODIUM CHLORIDE 0... IV ONE (02:11)
[2023-12-02] MEDS: SODIUM CHLORIDE 0.9% 1,000 ML IV SCH (04:02)
[2023-12-02 04:17] LABS: Hematocrit (blood only) 35.9 % (37.0-47.0); Hemoglobin 12.6 g/dl (12.0-16.0); Mean Corpuscular Hemoglobin 31.2 pg (25.0-34.0); Mean Corpuscular Hgb Conc 35.1 g/dL (32.0-36.0); Mean Corpuscular Volume 88.9 fL (80.0-100.0); Mean Platelet Volume 9.9 fL (9.4-12.4); Platelet Count 102 K/uL (130-400); RDW Coefficient of Variation 14.7 % (11.5-14.5); RDW Standard Deviation 47.8 fL (36.4-46.3); Red Blood Count 4.04 M/uL (4.20-5.40); White Blood Count 1.91 K/ul (4.8-10.8)
[2023-12-02 04:31] LABS: Albumin Level 3.8 gm/dl (3.4-5.0); BUN Creatinine Ratio 16.7 (10-20); Bilirubin Direct 0.2 mg/dl (0-0.2); Bilirubin,Total 0.6 mg/dl (0.2-1.0); Calcium 8.8 mg/dl (8.6-10.3); Creatinine Clr Calc Pharmacy 112.4 ml/min; Est GFR (African American) 124.9 ml/min; Est GFR (Non-African American) 107.8 ml/min; Magnesium 1.9 mg/dl (1.7-2.4); Total Protein 6.7 gm/dl (6.0-8.3)
[2023-12-02 04:58] LABS: Basophils # (auto) 0.01 K/uL (0.00-0.20); Basophils % (auto) 0.5 %; Eosinophils # (auto) 0.04 K/uL (0.00-0.50); Eosinophils % (auto) 2.1 %; Immature Granulocytes # (auto) 0.01 K/uL (0.01-0.20); Immature Granulocytes % (auto) 0.5 %; Lymphocytes # (auto) 0.71 K/uL (1.20-3.40); Lymphocytes % (auto) 37.2 %; Monocytes # (auto) 0.26 K/uL (0.11-0.59); Monocytes % (auto) 13.6 %; Neutrophils # (auto) 0.88 K/uL (1.40-6.50); Neutrophils % (auto) 46.1 %
[2023-12-02] MEDS: GABAPENTIN 600 MG TAB PO SCH ×2 (05:53→20:52)
[2023-12-02 07:12] LABS: Estimated Average Glucose 220 mg/dl; Hemoglobin A1C 9.3 % (4.5-5.6)
[2023-12-02] MEDS: ZINC SULFATE 220 MG CAPSULE PO SCH (07:42)
[2023-12-02] MEDS: CEROVITE ADV FORMULA TAB PO SCH (07:42)
[2023-12-02] MEDS: busPIRone 5 MG TAB PO SCH (07:42)
[2023-12-02] MEDS: FOLIC ACID 1 MG TAB PO SCH (07:42)
[2023-12-02] MEDS: THIAMINE HCL 100 MG TAB PO SCH (07:42)
[2023-12-02] MEDS: HEPARIN SOD 5,000 UNIT/0.5 ML VIAL SQ SCH (07:42)
[2023-12-02] MEDS: ASCORBIC ACID 500 MG TAB PO SCH (07:43)
[2023-12-02] MEDS: ESCITALOPRAM OXALATE 10 MG TAB PO SCH (07:43)
[2023-12-02] MEDS: FLUTICASONE/VILANTEROL 200/25MCG 14 PUFFS/INHALER INH SCH (07:44)
--- OUTSIDE RECORDS SUMMARY | 2023-12-02 07:57 | External Medical Summary | Summary of Care ---
Author Name Unknown Organization [facility] Address [address] [place] [address] Phone [phone] Care Team Providers Care Welfare Officer Name Role Phone Krystin Graves MD Primary Care Provid er Reason for Visit * Reason Onset Date Comments Hospital Follow-Up 11/28/2023 ALEX Encounter Details Date Type Department Care Team (Late st Contact Info) Description 11/28/[address] [address] Erika Dixon RN Hospital Follow-Up (ALEX) Allergies Active Allergy Reactions Criticality Noted Date Comments Doxycycline High 07/15/2023 arthralgia Theophylline 04/30/2002 anxiety Theophylline Sodium Glycinate 2004 nervous documented as of this encounter (statuses as of 11/28/2023) Medications Medication Sig Dispensed Refills Start Date End Date Status Multiple Vitamins-Minerals (MULTIVITAMIN ADULT) TABS Take by mouth. Active Fluticasone-Salmeter ol 250-50 MCG/ACT Inhalation Aerosol [...] Information Patient not taking.Reported on 07/12/2023 FreeStyle [place] Lite w/Device KitIndications:DM type 2, not at goal ([facility]) Use to check sugars daily. E 11.9 1 Kit 04/16/2023 Active Triamcinolone Acetonide 55 MCG/ACT Nasal Aerosol (Nasacort Allergy 24HR) Administer into nostril as needed for Rhinitis. Active FreeStyle Beth 3 SensorIndications:DM type 2, not at goal ([facility] [...] Needle)Indications:D M type 2, not at goal ([facility] [...] (w/Niacinamide))Miladis cations:DM type 2, not at goal ([facility]) Inject 5 units under [...] 11/11/2023 Active LORazepam 0.5 MG Oral Tablet (Ativan)Indications: Panic attack Take 1 Tablet by mouth 3 times a day as needed for Anxiety. 15 Tablet 11/21/2023 Active Insulin Glargine-yfgn 100 UNIT/ML Subcutaneous Solution Pen-injector (Semglee (yfgn))Indications:D M type 2, not at goal ([facility]) Inject 32 Units under the skin in the morning. Dose increase. 30 mL 3 11/20/2023 Active documented as of this encounter (statuses as of 11/28/2023) Active Problems Problem Noted Date Diagnosed Date Carrier of methicillin resis tant Staphylococcus aureus (MRSA) 10/21/2022 DM type 2, not at goal 03/13/2020 Major depressive disorder, recurrent episode, mo derate 08/03/2019 Alcoholism 05/13/2019 Panic disorder 12/09/2018 Asthma, moderate persistent 08/21/2012 ADVANCE DIRECTIVE INFORMATION 12/03/2007 Overview: No, Advance Directive brochure offered , patient declined. . documented as of this encounter (statuses as of 11/28/2023) Resolved Problems Problem Noted Date Diagnosed Date [...] as of this encounter (statuses as of 11/28/2023) Immunizations Name Administration Dates Next Due COVID-19 mRNA, LNP-s, No Pre serve, 2-Dose Series ([employer]) 04/17/2021,08/22/2020 Covid-19, Mrna, Lnp-s, Pf, B ivalent, 30 Mcg, IM, 12 yrs and above ([employer]) 03/20/2022,09/25/2021 Hepatitis B, 20+ yrs 03/05/2021 Pneumococcal Conjugate Vacci ne, 20-valent ([id number]) 02/20/2023 Pneumococcal Polysaccharide PPV23 (Pneumovax) 03/19/2018 Seasonal [...] Telephone Encounter - Erika Dixon RN - 11/28/2023 12:42 PM EDT Transitions of Care Note Reason for Referral:Recent Admission Phone visit for follow up: ALEX #1 Admitted to: [facility], Date: 11/26/2023 Discharged to: Home, Date: 11/28/2023 Diagnosis driving hospitalization: Alcoholism with withdrawal, depression and anxiety Attempted ALEX - no answer. Message left to return call to [phone] or . Reminded of PCP appointment 12/05/2023. Erika Dixon RN documented in this encounter Plan of Treatment Upcoming Encounters Date Type Department Care Team (Late st Contact Info) Description 12/04/2023 10:30 AM EDT Telemedicine Pharmacy, [place] [address] [place] [address] [facility] [address], [place] [id number] 12/05/2023 11:00 AM EDT Office Visit [place] [address] [place] [address] Krystin Graves MD [address] [place] [address] 01/16/2024 3:00 PM EDT Office Visit [place] [address] [place] [facility] [place] [phone] Krystin Graves MD [address] [place] [address] 03/16/2024 3:00 PM EDT Office Visit Hepatology, [facility] [address] [facility] [place] [address] Vee Juarez MD [address] [place] [phone] 03/18/2024 10:00 AM EDT Telemedicine Psychiatry Yudith Gonzales [address] [place] [phone] Woodrow Jang, [address] [place] [address] Health Maintenance Due Date Last Done Comments [...] filedocumented as of this encounter Care Teams Welfare Officer Relationship Specialty Start Date End Date Krystin Graves MD [address] [place] [address] PCP - General Family Medicine 10/21/22 documented as of this encounter
[2023-12-02] MEDS: LANTUS PER UNIT CHARGE SC SCH (09:19)
[2023-12-02] MEDS: INSULIN ASPART PER UNIT CHARGE SC SCH (09:19)
[2023-12-02] MEDS: LOPERAMIDE HCL 2 MG CAP PO PRN (10:23)
--- OUTSIDE RECORDS SUMMARY | 2023-12-02 11:16 | External Medical Summary | Summary of Care ---
Author Name Unknown Organization [facility] Address [address] [place] [address] Phone [phone] Care Team Providers Care Web Operations Administrator Name Role Phone Krystin Graves MD Primary Care Provid er Reason for Visit * Reason Onset Date Comments Hospital Follow-Up 11/28/2023 ALEX Encounter Details Date Type Department Care Team (Late st Contact Info) Description 11/28/[address] [address] Erika Dixon RN Hospital Follow-Up (ALEX) Allergies Active Allergy Reactions Criticality Noted Date Comments Doxycycline High 07/15/2023 arthralgia Theophylline 04/30/2002 anxiety Theophylline Sodium Glycinate 2004 nervous documented as of this encounter (statuses as of 12/01/2023) Medications Medication Sig Dispensed Refills Start Date [...] Information Patient not taking.Reported on 07/12/2023 FreeStyle [place] Lite w/Device KitIndications:DM type 2, not at [...] goal ([facility]) Use to inject insulin 4 times daily. [...] (yfgn))Indications:D M type 2, not at goal ([facility]) Inject 32 Units under the skin in the morning. Dose increase. 30 mL 3 11/20/2023 Active documented as of this encounter (statuses as of 12/01/2023) Active Problems Problem Noted Date Diagnosed Date Carrier of methicillin resis tant Staphylococcus aureus (MRSA) 10/21/2022 DM type 2, not at goal 03/13/2020 Major depressive disorder, recurrent episode, mo derate 08/03/2019 Alcoholism 05/13/2019 Panic disorder 12/09/2018 Asthma, moderate persistent 08/21/2012 ADVANCE DIRECTIVE INFORMATION 12/03/2007 Overview: No, Advance Directive brochure offered , patient declined. . documented as of this encounter (statuses as of 12/01/2023) Resolved Problems Problem Noted Date Diagnosed Date [...] as of this encounter (statuses as of 12/01/2023) Immunizations Name Administration Dates Next Due COVID-19 mRNA, LNP-s, No Pre serve, 2-Dose Series (ZALP) 04/17/2021,08/22/2020 Covid-19, Mrna, Lnp-s, Pf, B ivalent, 30 Mcg, IM, 12 yrs and above (ZALP) 03/20/2022,09/25/2021 HEP A - Hepatitis A (Adult > 18 yrs) 01/21/2001 Hepatitis B, 20+ yrs 03/05/2021 Pneumococcal Conjugate Vacci ne, 20-valent ([id number]) 02/20/2023 Pneumococcal Conjugate Vacci ne, 7 Valent [...] for follow up: ALEX #1 Admitted to: [facility], Date: 11/26/2023 Discharged to: Home, Date: 11/28/2023 Diagnosis driving hospitalization: Alcoholism with withdrawal, depression and anxiety Attempted ALEX - no answer. Message left to return call to [phone] or . Reminded of PCP appointment 12/05/2023. Erika Dixon RN Transitions of Care Note Reason for Referral:Recent Admission Phone visit for follow up: ALEX #2 Admitted to: [facility], Date: 11/26/2023 Discharged to: Home, Date: 11/28/2023 Diagnosis driving hospitalization: Alcoholism with withdrawal, depression and anxiety Attempted ALEX - no answer. Message left to return call to [phone] or . Reminded of PCP appointment 12/05/2023. Erika Dixon RN documented in this encounter Plan of Treatment Upcoming Encounters Date Type Department Care Team (Late st Contact Info) Description 12/04/2023 10:30 AM ED[facility] [address] [facility] [address] [facility] [address] [facility] [address] 12/05/2023 11:00 AM EDT Office [facility] [place] [address] [facility] [phone] Krystin Graves MD [address] [facility] [address] 01/16/2024 3:00 PM EDT [facility] [place] [address] [facility] [facility] [phone] Krystin Graves MD [address] [place] [address] 03/16/2024 3:00 PM EDT Office Visit Hepatology, [facility] [address] [place] [address] Vee Juarez MD [address] [place] [phone] 03/18/2024 10:00 AM EDT Telemedicine Psychiatry [facility], [place] [address] [place] [phone] Woodrow Jang DO [address] [place] [address] Health Maintenance Due Date Last Done Comments Depression Monitoring 08/03/2020 08/03/2019 Cologuard 11/18/2020 Colonoscopy 11/18/2020 Colorectal Cancer Screening [...] filedocumented as of this encounter Care Teams Web Operations Administrator Relationship Specialty Start Date End Date Krystin Graves MD [address] [place] [facility] [place] [address] PCP - General Family Medicine 10/21/22 documented as of this encounter
[2023-12-02] MEDS: LORazepam 0.5 MG TAB PO PRN (13:00)
--- NOTE | 2023-12-02 14:15 | Psychiatric Consultation ---
Date of Consultation December 02, 2023 Impression / Recommendations Impression 48 yo woman with a history of depression,anxiety, alcohol use admitted medically. Diagnostically consistent with alcohol use disorder as well as unspecified depression and anxiety likely a combination of substance-induced as well as MDD and MORIS vs adjustment disorder with depression and anxiety. Acute risk of self-harm is low given denial of SI, future-oriented, willing to engage with outpatient treatment. Chronic risk of self-harm and harm to others is slightly increased due to substance use with substance use treatment being the most significant modifiable risk factor to reduce acute and chronic risk. R ecommended and offered options for inpatient psychiatric treatment at dual diagnosis facility or residential substance use treatment, she declines this. She remains motivated for and agreeable to outpatient services to help with substance use and medication assisted treatment. She is in contemplative stage of change, motivational interviewing done. Overall, I spent a total of 60 minutes on this case including meeting with the patient, reviewing the chart, nursing report, multidisciplinary team meeting, orders, and documentation. (1) Alcohol use disorder, moderate, dependence: (2) Anxiety: (3) Depression: Depression Type: major depressive disorder Major depression recurrence: recurrent Active/Remission status: currently active Major depression episode severity: moderate Qualified Code(s): F33.1 - Major dep ressive disorder, recurrent, moderate Plan -Does not meet 302 criteria, can discharge if she requests to leave AMA -She declines voluntary inpatient psychiatric treatment/dual diagnosis hospitalization -She declines residential substance use treatment -She remains motivated to start dual diagnosis IOP at [facility] on 12/04/2023 -Consider increasing escitalopram to 15mg daily for further benefit for anxiety and depression -Can continue trazodone and buspar -Consider gabapentin 300mg TID for alcohol use disorder/anxiety as off-label use for harm reduction, there is a risk of fatal respiratory suppression if combined with alcohol use -Once her LFTs improve consider use of naltrexone 50mg daily or in outpatient setting could use acamprosate-start at 333mg TID for alcohol use disorder Psych History Identifying Data 48 yo woman with history of alcohol use disorder, depression, anxiety, T2DM, and now with neutropenia admitted medically for alcohol withdrawal. Psychiatry consulted for recommendations for alcohol use disorder and depression. Chief Complaint "My depression has been worse". History of Present Illness Marcus re-presents to the hospital after an admission last week for depression and alcohol use for ongoing alcohol use and depression. Marcus reports a history of depression and alcohol use, consuming a bottle of vodka over the course of a day and a half, usually starting around midday. She also reports currently financial stressors noting she only has $100 to get her through the rest of the month and has been missing too much work at [employer] and now needs to meet with someone to discuss her absences. She has not previously received residential treatment for alcohol use or attended rehab. She is scheduled for an outpatient appointment at [facility] on and has a follow-up with her PCP on Friday. She wonders if a medication adjustment may help with her depression. She is currently taking Buspar 20mg TID, Trazodone 50mg HS, and Lexapro 10mg for anxiety and depression. She denies any suicidal thoughts. She has previously tried naltrexone for alcohol cravings but did not find it effective; however, she is willing to try it again. She has been on her current dose of Lexapro since August. She expresses excitement about her upcoming appointment at [facility] and hopes it will help with her anxiety, which she describes as stronger than her depression. She has not experienced a full-blown anxiety attack recently but reports a persistent feeling of impending doom. She denies using any substances other than alcohol and does not have a history of manic episodes. In addition to her prescribed medications, she takes [id number] melatonin, a multivitamin, zinc, and magnesium. She is hoping to be discharged from the hospital by tomorrow to attend her scheduled appointments and wonders about help with paperwork for missing work. Allergies Allergy/AdvReac Type Severity Reaction Status Date / Time doxycycline Allergy Severe Muscle Pain Verified 11/26/23 08:30 theophylline AdvReac Intermediate VERTIGO Verified 11/26/23 08:30 Home Medications Medication Instructions Recorded Confirmed Type fluticasone 250 mcg-salmeterol 50 1 inh inhalation QAM 02/27/19 12/01/23 History mcg/dose blistr powdr for inhalation (Advair Diskus) albuterol sulfate 90 mcg/actuation 2 puff inhalation UD PRN Shortness 07/23/19 12/01/23 History aerosol inhaler (Ventolin HFA) Of Breath ascorbic acid (vitamin C) 500 mg 500 mg PO DAILY 04/05/21 12/01/23 History tablet,extended release (Vitamin C ER) buspirone 10 mg tablet 20 mg PO TID 04/22/22 12/01/23 History lorazepam 0.5 mg tablet 0.5 mg PO TID PRN Anxiety 09/09/23 12/01/23 History escitalopram oxalate 10 mg tablet 10 mg PO QAM 11/26/23 12/01/23 History insulin aspart 4 - 5 unit subcut TID 11/26/23 12/01/23 History (niacinamide)(U-100) 100 unit/mL(3 mL) subcutaneous pen (Fiasp FlexTouch U-100 Insulin) insulin glargine-yfgn 100 unit/mL 32 unit subcut QAM 11/26/23 12/01/23 History (3 mL) subcutaneous pen (Semglee (insulin glargine-yfgn) Pen) pen needle, diabetic 32 gauge x 11/26/23 12/01/23 History 5/32" (BD Ultra-Fine Gertrude Pen Needle) trazodone 50 mg tablet 50 mg PO QPM 11/26/23 12/01/23 History vvbughagxclv-Gp-sawf-minerals 1 tab PO DAILY 12/01/23 12/01/23 History zinc acetate 50 mg (zinc) capsule 50 mg PO DAILY 12/01/23 12/01/23 History Patient History Medical History Acute alcoholic pancreatitis Suicidal ideation Hypophosphatemia Hypomagnesemia Metabolic acidosis Thrush Alcoholic intoxication Thrombocytopenia Alcohol withdrawal Acute alcoholic hepatitis Acidosis, metabolic Acute pancreatitis Electrolyte abnormality DVT prophylaxis Alcohol withdrawal Asthma Surgical History History of dental surgery wisdom teeth History of esophagogastroduodenoscopy (EGD) Family History Father Prediabetes Grandfather (Paternal) Diabetes Mother Hypertension MVP (mitral valve prolapse) Social History Smoking Status: Unknown if ever smoked Tobacco Type: Cigarettes Age Quit Using Tobacco: 39; packs per day: 1; Second Hand Exposure: No; Do You Dip or Chew Tobacco: No; Hx Alcohol Use: Yes Alcohol type: hard liquor Alcohol type Comment: 4 glasses wine daily Hx Substance Use: No Preferred Language: Slovak Communication Ability: Effective Visual Impairment: No Limitations Shoe Patternmaker Required: No Beliefs That Will Affect Care: None marital status: marital status details: Single parent Current Living Situation: Alone Current Living Situation Comment: daughter current occupational status: unemployed How many Children do You have: 1 Other Information That Helps Us Care for You: No Feels Safe at Home: Yes Safety Concerns: Feels Safe At This Time Childhood Exposure to Second-Hand Smoke: No Gender Identity: Female Assistive Devices: None Physical Exam Psychiatric: Orientation: alert and oriented x 3 Apperance: appropriately dressed and appropriately groomed Eye Contact: good eye contact Motor Behavior: no abnormal motor movements Speech: normal rate/rhythm/volume of speech Affect: euthymic affect Mood: + depressed mood and + anxious mood Thought Process: goal directed thought process Thought Content: reality based without delusions Suicidal Thoughts: denies suicidal thoughts, denies suicidal plan and denies suicidal intent Homicidal Thoughts: denies homicidal thoughts Hallucinations: no auditory hallucinations and no visual hallucinations Cognition: recent memory grossly intact, remote memory grossly intact, attention grossly intact and language grossly intact Estimated Intelligence: consistent with education level Insight: + fair insight Judgment: + limited judgement Vital Signs (Past 24 Hours): Last Vital Signs Temp 37.1 C 12/01/23 21:40 Pulse 94 H 12/02/23 07:50 Resp 20 12/02/23 07:50 BP 102/73 12/02/23 07:50 Pulse Ox 96 12/02/23 07:50 O2 Del Method Room Air 12/02/23 07:50 Review of Systems All systems reviewed & are unremarkable except as noted in HPI & below Results & Data (PSY) Medications Administered Ascorbic Acid (Ascorbic Acid 500 Mg Tab) 500 mg PO DAILY ARMANI Stop: 01/01/24 08:59 Last Admin: 12/02/23 07:43 Dose: 500 mg Documented By: RAFFI Buspirone HCl (Buspirone 5 Mg Tab) 20 mg PO TID ARMANI Stop: 01/01/24 08:59 Last Admin: 12/02/23 14:05 Dose: 20 mg Documented By: Admin: 12/02/23 07:42 Dose: 20 mg Documented By: HS Escitalopram Oxalate (Escitalopram Oxalate 10 Mg Tab) 10 mg PO QAM [facility] Stop: 01/01/24 08:59 Last Admin: 12/02/23 07:43 Dose: 10 mg Documented By: HS Fluticasone/Vilanterol (Fluticasone/Vilanterol 200/25mcg 14 Puffs/Inhaler) 1 puffs INH DAILY [facility] Stop: 01/01/24 08:59 Last Admin: 12/02/23 07:44 Dose: 1 puffs Documented By: HS Folic Acid (Folic Acid 1 Mg Tab) 1 mg PO QAM [facility] Stop: 01/01/24 08:59 Last Admin: 12/02/23 07:42 Dose: 1 mg Documented By: HS Heparin Sodium (Porcine) (Heparin Sod 5,000 Unit/0.5 Ml Vial) 5,000 units SQ Q12 [facility] Stop: 01/01/24 08:59 Last Admin: 12/02/23 07:42 Dose: 5,000 units Documented By: HS Lorazepam 1 mg/ Syringe 1 mls @ 2 mls/min IV UD PRN; Protocol PRN Reason: EtOH Withdrawal AWSS Score 6,7 Stop: 01/01/24 00:33 Last Admin: 12/02/23 01:31 Dose: 2 mls/min Documented By: WILLIAM Insulin Aspart (Insulin Aspart Per Unit Charge) 0 units SC [facility] Stop: 01/01/24 07:29 Last Admin: 12/02/23 14:05 Dose: Not Given Documented By: Admin: 12/02/23 09:19 Dose: 10 units Documented By: RAFFI Co-signed By: DAPHNE Insulin Glargine (Lantus Per Unit Charge) 32 units SC [facility] Stop: 01/01/24 08:59 Last Admin: 12/02/23 09:19 Dose: 32 units Documented By: HS Co-signed By: DAPHNE Loperamide HCl (Loperamide Hcl 2 Mg Cap) 2 mg PO Q3H PRN PRN Reason: diarrhea Stop: 01/01/24 09:46 Last Admin: 12/02/23 10:23 Dose: 2 mg Documented By: RAFFI Lorazepam (Lorazepam 0.5 Mg Tab) 0.5 mg PO TID PRN PRN Reason: Anxiety Stop: 01/01/24 00:33 Last Admin: 12/02/23 13:00 Dose: 0.5 mg Documented By: KAREN Multivitamins/Minerals (Cerovite Adv Formula Tab) 1 tab PO DAILY ARMANI Stop: 01/01/24 08:59 Last Admin: 12/02/23 07:42 Dose: 1 tab Documented By: RAFFI Thiamine HCl (Thiamine Hcl 100 Mg Tab) 100 mg PO QAM [facility] Stop: 01/01/24 08:59 Last Admin: 12/02/23 07:42 Dose: 100 mg Documented By: RAFFI Zinc Sulfate (Zinc Sulfate 220 Mg Capsule) 220 mg PO DAILY ARMANI Stop: 01/01/24 08:59 Last Admin: 12/02/23 07:42 Dose: 220 mg Documented By: RAFFI Coding Level of Care Code 08298 IN/OBS CONSULT LVL 4,60M Diagnoses Alcohol use disorder, moderate, dependence F10.20 Anxiety F41.9 Depression, unspecified depression type F33.1 Depression Type: major depressive disorder Major depression recurrence: recurrent Active/Remission status: currently active Major depression episode severity: moderate
--- NOTE | 2023-12-02 15:17 | Oncology Consultation ---
Date of Consultation December 02, 2023 Assessment & Plan (1) Pancytopenia: I had a lengthy discussion with the patient today. Most likely her pancytopenia is related to the alcohol abuse and cirrhosis of liver. At this time no hematological intervention is warranted. Just recommend close surveillance and follow-up for CBCs regularly Plan . Thank you for this interesting hematological consult. A total of 60 minutes was spent in counseling, coordination of care review of prior records. History of Present Illness Reason for Consultation: Pancytopenia Attending Physician: Brett Vasquez MD History of Present Illness the patient is a very pleasant 48-year-old woman with a past medical history significant for type 2 diabetes, asthma, history of alcohol abuse, panic disorder, depression. She presented to the [facility] ER and was noted to have pancytopenia. She does have a history of cirrhosis. Hematology has been consulted to assist in management of this patient with pancytopenia. She continues to drink 1 bottle of vodka daily. On admission the patient was noted to have a WBC count of 1.91, hemoglobin is 11.9 g/dL, platelet count is 86,000/mcL. hematology has been consulted to assist in management of this patient with pancytopenia. Allergies Allergy/AdvReac Type Severity Reaction Status Date / Time doxycycline Allergy Severe Muscle Pain Verified 11/26/23 08:30 theophylline AdvReac Intermediate VERTIGO Verified 11/26/23 08:30 Home Medications Medication Instructions Recorded Confirmed Type fluticasone 250 mcg-salmeterol 50 1 inh inhalation QAM 02/27/19 12/01/23 History mcg/dose blistr powdr for inhalation (Advair Diskus) albuterol sulfate 90 mcg/actuation 2 puff inhalation UD PRN Shortness 07/23/19 12/01/23 History aerosol inhaler (Ventolin HFA) Of Breath ascorbic acid (vitamin C) 500 mg 500 mg PO DAILY 04/05/21 12/01/23 History tablet,extended release (Vitamin C ER) buspirone 10 mg tablet 20 mg PO TID 04/22/22 12/01/23 History lorazepam 0.5 mg tablet 0.5 mg PO TID PRN Anxiety 09/09/23 12/01/23 History escitalopram oxalate 10 mg tablet 10 mg PO QAM 11/26/23 12/01/23 History insulin aspart 4 - 5 unit subcut TID 11/26/23 12/01/23 History (niacinamide)(U-100) 100 unit/mL(3 mL) subcutaneous pen (Fiasp FlexTouch U-100 Insulin) insulin glargine-yfgn 100 unit/mL 32 unit subcut QAM 11/26/23 12/01/23 History (3 mL) subcutaneous pen (Semglee (insulin glargine-yfgn) Pen) pen needle, diabetic 32 gauge x 11/26/23 12/01/23 History 32" (BD Ultra-Fine Gertrude Pen Needle) trazodone 50 mg tablet 50 mg PO QPM 11/26/23 12/01/23 History juvvgpnhvjod-Ip-ybve-minerals 1 tab PO DAILY 12/01/23 12/01/23 History zinc acetate 50 mg (zinc) capsule 50 mg PO DAILY 12/01/23 12/01/23 History folic acid 1 mg tablet 1 mg PO QAM #30 tabs 12/03/23 Rx sodium di- and 1 tab PO BID #10 tabs 12/03/23 Rx monophosphate-potassium phos monobasic 250 mg tablet (Phospha Neutral) thiamine HCl (vitamin B1) 100 mg 100 mg PO QAM #30 tabs 12/03/23 Rx tablet Patient History Medical History Acute alcoholic pancreatitis Suicidal ideation Hypophosphatemia Hypomagnesemia Metabolic acidosis Thrush Alcoholic intoxication Thrombocytopenia Alcohol withdrawal Acute alcoholic hepatitis Acidosis, metabolic Acute pancreatitis Electrolyte abnormality DVT prophylaxis Alcohol withdrawal Asthma Surgical History History of dental surgery wisdom teeth History of esophagogastroduodenoscopy (EGD) Family History Father Prediabetes Grandfather (Paternal) Diabetes Mother Hypertension MVP (mitral valve prolapse) Social History Smoking Status: Unknown if ever smoked Tobacco Type: Cigarettes Age Quit Using Tobacco: 39; packs per day: 1; Second Hand Exposure: No; Do You Dip or Chew Tobacco: No; Hx Alcohol Use: Yes Alcohol type: hard liquor Alcohol type Comment: 4 glasses wine daily Hx Substance Use: No Preferred Language: Ugandan Communication Ability: Effective Visual Impairment: No Limitations Visiting Teacher Required: No Beliefs That Will Affect Care: None marital status: marital status details: Single parent Current Living Situation: Alone Current Living Situation Comment: daughter current occupational status: unemployed How many Children do You have: 1 Feels Safe at Home: Yes Childhood Exposure to Second-Hand Smoke: No Gender Identity: Female Assistive Devices: None Review of Systems Review of Systems: All systems reviewed & are unremarkable except as noted in HPI & below Constitutional: as per Subjective / HPI Eyes: as per Subjective / HPI Ear, Nose, Mouth, Throat: as per Subjective / HPI Respiratory: as per Subjective / HPI Cardiovascular: as per Subjective / HPI Gastrointestinal: as per Subjective / HPI Genitourinary: as per Subjective / HPI Musculoskeletal: as per Subjective / HPI Integumentary: as per Subjective / HPI Neurologic: as per Subjective / HPI Endocrine: as per Subjective / HPI Results & Data Vital Signs (Past 12 Hours) Vital Signs Pulse Pulse Resp BP BP Pulse Ox O2 Del Method 12/02/23 12:19 89 16 135/83 99 Room Air 12/02/23 07:50 94 H 20 102/73 96 Room Air 12/02/23 07:39 88 12/02/23 06:30 89 17 95 12/02/23 06:12 85 19 94 12/02/23 06:00 89 15 95 12/02/23 06:00 95/66 L 12/02/23 05:54 89 19 96 12/02/23 05:42 88 24 94 12/02/23 05:33 87 20 94 12/02/23 05:21 89 21 94 12/02/23 04:42 89 16 94 12/02/23 04:42 Room Air 12/02/23 04:33 87 16 94 12/02/23 04:24 87 19 93 12/02/23 04:06 92 H 18 92 12/02/23 03:33 90 16 94 12/02/23 03:24 91 H 18 93 12/02/23 03:21 Room Air 12/02/23 03:18 88 17 94
--- NOTE | 2023-12-02 16:54 | Hospitalist Progress Note ---
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 Patient was recently in the hospital with alcoholism and depression with suicidal ideation and seen by psychiatry and did not require any inpatient psychiatric care and did fine discharged home comes back in because of ongoing alcoholism and depression. Patient states she missed some of her psych medications. States drinking 1 bottle of vodka daily. And she was feeling depressed and sad. Denies any suicidal ideation or homicidal ideation. She wanted help so she came to the hospital. Currently resting comfortably. Denies any headache. No dizziness. No runny nose or sore throat. No cough. No fevers. No chest pain or shortness of breath. No nausea. No abdominal pain. Normal bowel and bladder movements. Hemodynamics are okay. Requiring Ativan for anxiety in ER. Alcohol abuse Recurrent admission with withdrawal and alcoholism Recent admission with suicidal ideation Denies any significant withdrawal symptoms-no significant tremor but has unsteady gait Last drink on Friday We will continue with gabapentin protocol Receiving vitamins Will get PT OT evaluation Possible discharge tomorrow if there is no significant withdrawal symptoms She has an appointment with [facility] as an outpatient day after tomorrow Has significant depression History of suicidal ideation during last admission-cleared by the psychiatrist She mentions she was confused and she did not mean it Appreciate psychiatric input and recommendation this time Depression medications has been changed Pancytopenia Noted to have pancytopenia likely secondary to alcoholism Appreciate hematology input and recommendation No need to do any bone marrow Will have usual outpatient follow-up Elevated LFTs Secondary to alcoholism We will repeat levels Diabetes continue long-acting insulin sliding scale HbA1c level-elevated at 9.3 will monitor Asthma continue home inhalers DVT prophylaxis heparin subcu monitor platelets disposition telemetry full code Admission and Anticipated Discharge Date Admission Date: December 01, 2023 Subjective 12/02/2023 The patient was seen and examined in emergency room Came in with ongoing alcoholism and wanted to have some help No suicidal ideation Denies any other symptoms No significant tremors with outstretched hands Last drink was on Friday Review of Systems Review of Systems: All systems reviewed and are unremarkable except as noted below Physical Exam Physical Exam: Sitting on the bed without any acute distress Constitutional: well developed, well nourished and + ill appearing Eyes: PERRL, conjunctivae normal, anicteric sclerae ENMT: external ear and nose normal, oropharynx normal Neck: trachea midline, no thyromegaly Respiratory: + respiratory distress Auscultation: lungs clear to auscultation bilaterally Cardiovascular: Rate/Rhythm: regular rate and regular rhythm; not tachycardic Heart Sounds: normal S1 and normal S2; no murmur Extremities: no edema Gastrointestinal (Abdomen): Inspection/Auscultation: normal bowel sounds; abdomen not distended Percussion/Palpation: abdomen soft; abdomen nontender Musculoskeletal: No acute arthritis involving any of the joint Neurologic: normal touch/pain/proprioception and moves all extremities; no focal motor deficits Psychiatric: Mood: + depressed mood and + anxious mood Lymphatic: no cervical or axillary lymphadenopathy Results & Data Results & Data Vital Signs (Past 12 Hours) Vital Signs Pulse Pulse Resp BP BP Pulse Ox O2 Del Method 12/02/23 12:19 89 16 135/83 99 Room Air 12/02/23 07:50 94 H 20 102/73 96 Room Air 12/02/23 07:39 88 12/02/23 06:30 89 17 95 12/02/23 06:12 85 19 94 12/02/23 06:00 89 15 95 12/02/23 06:00 95/66 L 12/02/23 05:54 89 19 96 12/02/23 05:42 88 24 94 12/02/23 05:33 87 20 94 12/02/23 05:21 89 21 94 Laboratory Results Short CBC 12/01/23 12/02/23 Range/Units 17:39 03:56 WBC 2.62 L 1.91 L (4.8-10.8) K/ul Hgb 14.6 12.6 (12.0-16.0) g/dl Hct 41.0 35.9 L (37.0-47.0) % Plt Count 125 L 102 L (130-400) K/uL BMP 12/01/23 12/02/23 17:39 03:56 Sodium 134 L 137 Potassium 3.8 4.0 Chloride 100 105 Carbon Dioxide 22 22 BUN 8 10 Creatinine 0.64 0.60 Glucose 270 H 215 H Calcium 10.0 8.8 Liver Function 12/01/23 12/02/23 Range/Units 17:39 03:56 Total Bilirubin 0.6 0.6 (0.2-1.0) mg/dl Direct Bilirubin 0.2 (0-0.2) mg/dl AST 68 H 76 H (13-39) U/L ALT 87 H 74 H (7-52) U/L Alkaline Phosphatase 246 H 216 H (34-104) U/L Albumin 4.6 3.8 (3.4-5.0) gm/dl Urine 12/01/23 Range/Units 21:37 Urine Color Yellow Urine Appearance Clear (Clear) Urine pH 6.0 (4.5-7.5) Ur Specific Trade 1.014 (1.000-1.030) Urine Protein Trace H (Negative) Urine Glucose (UA) 1+ H (Negative) Medications Administered Current Inpatient Medications Albuterol (Albuterol Hfa 8 Gm Inhaler) 2 puffs INH QID PRN PRN Reason: Shortness Of Breath / Wheezing Stop: 01/01/24 00:33 Ascorbic Acid (Ascorbic Acid 500 Mg Tab) 500 mg PO DAILY [facility] Stop: 01/01/24 08:59 Last Admin: 12/02/23 07:43 Dose: 500 mg Buspirone HCl (Buspirone 5 Mg Tab) 20 mg PO TID [facility] Stop: 01/01/24 08:59 Last Admin: 12/02/23 14:05 Dose: 20 mg Dextrose (Dextrose 50% 50 Ml Syringe) 25 - 50 ml IV UD PRN; Protocol PRN Reason: Hypoglycemia Protocol Stop: 01/01/24 00:33 Escitalopram Oxalate (Escitalopram Oxalate 10 Mg Tab) 10 mg PO QAM [facility] Stop: 01/01/24 08:59 Last Admin: 12/02/23 07:43 Dose: 10 mg Fluticasone/Vilanterol (Fluticasone/Vilanterol 200/25mcg 14 Puffs/Inhaler) 1 puffs INH DAILY [facility] Stop: 01/01/24 08:59 Last Admin: 12/02/23 07:44 Dose: 1 puffs Folic Acid (Folic Acid 1 Mg Tab) 1 mg PO QAM [facility] Stop: 01/01/24 08:59 Last Admin: 12/02/23 07:42 Dose: 1 mg Gabapentin (Gabapentin 600 Mg Tab) 600 mg PO Q8H [facility] Stop: 12/03/23 14:01 Gabapentin (Gabapentin 600 Mg Tab) 600 mg PO Q12H [facility] Stop: 12/04/23 12:01 Gabapentin (Gabapentin 600 Mg Tab) 600 mg PO Q24H [facility] Stop: 12/05/23 12:01 Glucagon (Glucagon For Inj 1 Mg Vial) 1 mg SQ UD PRN; Protocol PRN Reason: Hypoglycemia Protocol Stop: 01/01/24 00:33 Glucose (Glucose 40% Gel 15 Gm Tube) 15 - 30 gm PO UD PRN; Protocol PRN Reason: Hypoglycemia Protocol Stop: 01/01/24 00:33 Glucose (Glucose 10 Tab/Tube) 4 - 8 tab PO UD PRN; Protocol PRN Reason: Hypoglycemia Treatment Stop: 01/01/24 00:33 Heparin Sodium (Porcine) (Heparin Sod 5,000 Unit/0.5 Ml Vial) 5,000 units SQ Q12 [facility] Stop: 01/01/24 08:59 Last Admin: 12/02/23 07:42 Dose: 5,000 units Lorazepam 1 mg/ Syringe 1 mls @ 2 mls/min IV UD PRN; Protocol PRN Reason: EtOH Withdrawal AWSS Score 6,7 Stop: 01/01/24 00:33 Last Admin: 12/02/23 01:31 Dose: 2 mls/min Lorazepam 2 mg/ Syringe 2 mls @ 2 mls/min IV UD PRN; Protocol PRN Reason: EtOH Withdrawal AWSS Score 8,9 Stop: 01/01/24 00:33 Lorazepam 3 mg/ Syringe 3 mls @ 2 mls/min IV ONCE PRN; Protocol PRN Reason: EtOH Withdrawal AWSS Score 10+ Insulin Aspart (Insulin Aspart Per Unit Charge) 0 units SC ACHS [facility] Stop: 01/01/24 07:29 Last Admin: 12/02/23 14:05 Dose: Not Given Insulin Glargine (Lantus Per Unit Charge) 32 units SC QAM [facility] Stop: 01/01/24 08:59 Last Admin: 12/02/23 09:19 Dose: 32 units Loperamide HCl (Loperamide Hcl 2 Mg Cap) 2 mg PO Q3H PRN PRN Reason: diarrhea Stop: 01/01/24 09:46 Last Admin: 12/02/23 10:23 Dose: 2 mg Lorazepam (Lorazepam 0.5 Mg Tab) 0.5 mg PO TID PRN PRN Reason: Anxiety Stop: 01/01/24 00:33 Last Admin: 12/02/23 13:00 Dose: 0.5 mg Miscellaneous (Carbohydrates For Hypoglycemia ) 15 - 30 gm PO UD PRN PRN Reason: Hypoglycemia Protocol Stop: 01/01/24 00:33 Multivitamins/Minerals (Cerovite Adv Formula Tab) 1 tab PO DAILY [facility] Stop: 01/01/24 08:59 Last Admin: 12/02/23 07:42 Dose: 1 tab Nitroglycerin (Nitroglycerin Sl 0.4 Mg/Tab Tab) 0.4 mg SL Q5M PRN PRN Reason: Chest Pain Stop: 01/01/24 00:33 Thiamine HCl (Thiamine Hcl 100 Mg Tab) 100 mg PO QAM [facility] Stop: 01/01/24 08:59 Last Admin: 12/02/23 07:42 Dose: 100 mg Trazodone HCl (Trazodone Hcl 50 Mg Tab) 50 mg PO QPM [facility] Stop: 01/01/24 20:59 Zinc Sulfate (Zinc Sulfate 220 Mg Capsule) 220 mg PO DAILY [facility] Stop: 01/01/24 08:59 Last Admin: 12/02/23 07:42 Dose: 220 mg
--- NOTE | 2023-12-02 17:16 | Electrocardiogram Report ---
Test Reason : Blood Pressure : / mmHG Vent. Rate : 101 BPM Atrial Rate : 101 BPM P-R Int : 128 ms QRS Dur : 078 ms QT Int : 310 ms P-R-T Axes : 043 025 027 degrees QTc Int : 401 ms Sinus tachycardia Otherwise normal ECG When compared with ECG of 26-NOV-2023 11:11, QT has shortened Confirmed by Arnold Schaefer ([id number] on 12/02/2023 5:15:48 PM Referred By: REFERRED SELF Confirmed By:Faisal Schaefer
[2023-12-02] MEDS: traZODone HCL 50 MG TAB PO SCH (20:50)
[2023-12-03] MEDS: SODIUM CHLORIDE 0.65% NA SOLN 45 ML (OCEAN) PRN (05:55)
[2023-12-03 07:32] LABS: Hematocrit (blood only) 34.9 % (37.0-47.0); Hemoglobin 11.9 g/dl (12.0-16.0); Mean Corpuscular Hemoglobin 31.4 pg (25.0-34.0); Mean Corpuscular Hgb Conc 34.1 g/dL (32.0-36.0); Mean Corpuscular Volume 92.1 fL (80.0-100.0); Mean Platelet Volume 10.4 fL (9.4-12.4); Platelet Count 86 K/uL (130-400); RDW Coefficient of Variation 14.7 % (11.5-14.5); RDW Standard Deviation 49.2 fL (36.4-46.3); Red Blood Count 3.79 M/uL (4.20-5.40); White Blood Count 1.23 K/ul (4.8-10.8)
[2023-12-03 07:51] LABS: Albumin Globulin Ratio 1.4 (0.9-2); Albumin Level 3.7 gm/dl (3.4-5.0); BUN Creatinine Ratio 15.9 (10-20); Bilirubin,Total 0.9 mg/dl (0.2-1.0); Calcium 9.7 mg/dl (8.6-10.3); Creatinine Clr Calc Pharmacy 94.7 ml/min; Est GFR (African American) 119.3 ml/min; Est GFR (Non-African American) 102.9 ml/min; Globulin 2.7 gm/dl (2.5-4.0); Potassium 4.6 mmol/L (3.5-5.1); Total Protein 6.4 gm/dl (6.0-8.3)
[2023-12-03 08:31] LABS: Platelet Estimate Decreased (Normal); RBC Morphology Unremarkable
[2023-12-03 08:33] LABS: Basophils # (auto) 0.01 K/uL (0.00-0.20); Basophils % (auto) 0.8 %; Eosinophils # (auto) 0.03 K/uL (0.00-0.50); Eosinophils % (auto) 2.4 %; Lymphocytes # (auto) 0.64 K/uL (1.20-3.40); Monocytes % (auto) 16.3 %; Neutrophils # (auto) 0.35 K/uL (1.40-6.50); Neutrophils % (auto) 28.5 %
[2023-12-03] MEDS ORDERED: SODIUM PHOSPHATE 3 MMOL/1 ML INFUSION IV ONE (09:36)
[2023-12-03] MEDS: SODIUM PHOSPHATE 15 MMOL in SODIUM CHLORIDE 0.9% 250 ML IV ONE (10:04)
--- NOTE | 2023-12-03 13:33 | Hospitalist Progress Note ---
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 Patient was recently in the hospital with alcoholism and depression with suicidal ideation and seen by psychiatry and did not require any inpatient psychiatric care and did fine discharged home comes back in because of ongoing alcoholism and depression. Patient states she missed some of her psych medications. States drinking 1 bottle of vodka daily. And she was feeling depressed and sad. Denies any suicidal ideation or homicidal ideation. She wanted help so she came to the hospital. Currently resting comfortably. Denies any headache. No dizziness. No runny nose or sore throat. No cough. No fevers. No chest pain or shortness of breath. No nausea. No abdominal pain. Normal bowel and bladder movements. Hemodynamics are okay. Requiring Ativan for anxiety in ER. Alcohol abuse Recurrent admission with withdrawal and alcoholism Recent admission with suicidal ideation Counseled to quit drinking On gabapentin protocol Denies currently any suicidal thoughts Interested to follow-up with AA upon discharge Continue thiamine, folic acid Currently no signs of alcohol withdrawal Plan to be discharged home today Severe Depression H/O suicidal ideation during last admission-cleared by the psychiatrist Appreciate psychiatric input and recommendations Does not meet 302 criteria per psych She declined voluntary inpatient psychiatric treatment as per record Advised to follow-up with psychiatry on discharge Pancytopenia Noted to have pancytopenia likely secondary to alcoholism Hematology consulted Currently no signs of bleeding issues Monitor CBC Advised to follow-up with hematology on discharge Elevated LFTs Secondary to alcoholism Avoid hepatotoxic agents as able Monitor LFTs DM II Continue insulin for management of diabetes mellitus HbA1c level-elevated at 9.3 monitor BGs Asthma continue home inhalers No signs of exacerbation currently DVT Px: Heparin SQ CODE STATUS full code Admission and Anticipated Discharge Date Admission Date: December 01, 2023 Subjective Patient is seen and examined at bedside States feeling well today Offers no new complaints Currently no signs of alcohol withdrawal Eager to get discharged Denies any chest pain, dyspnea, dizziness, nausea, vomiting, abdominal pain Review of Systems Review of Systems: All systems reviewed & are unremarkable except as noted in Subjective Physical Exam Physical Exam: Physical Exam: Vitals signs as noted above General Appearance:Moderately built and nourished, no apparent distress Head: normocephalic, Atraumatic Eyes: normal inspection, EOMI Neck: supple, Trachea midline Respiratory/Chest: Normal breath sounds, CTA, No accessory muscle use Cardiovascular: S1, S2, No murmur Abdomen/GI:Soft, Non tender, Bowel sounds present Extremities/Musculoskeletal:normal inspection, no edema Neurologic/Psych:AAOX3, grossly no focal neurological deficits Skin: normal color, warm Results & Data Results & Data Vital Signs (Past 12 Hours) Vital Signs Temp Pulse Pulse Resp BP Pulse Ox O2 Del Method 12/03/23 11:29 36.7 C 79 18 120/79 97 Room Air 12/03/23 08:00 67 12/03/23 07:35 36.9 C 72 18 107/72 97 Room Air 12/03/23 03:21 36.6 C 61 16 110/75 99 Room Air Laboratory Results Short CBC 12/03/23 Range/Units 06:45 WBC 1.23 L (4.8-10.8) K/ul Hgb 11.9 L (12.0-16.0) g/dl Hct 34.9 L (37.0-47.0) % Plt Count 86 L (130-400) K/uL BMP 12/03/23 06:45 Sodium 133 L Potassium 4.6 Chloride 101 Carbon Dioxide 29 BUN 11 Creatinine 0.69 Glucose 285 H Calcium 9.7 Liver Function 12/03/23 Range/Units 06:45 Total Bilirubin 0.9 (0.2-1.0) mg/dl AST 75 H (13-39) U/L ALT 68 H (7-52) U/L Alkaline Phosphatase 213 H (34-104) U/L Albumin 3.7 (3.4-5.0) gm/dl
--- NOTE | 2023-12-03 16:28 | Discharge Summary ---
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 Patient was recently in the hospital with alcoholism and depression with suicidal ideation and seen by psychiatry and did not require any inpatient psychiatric care and did fine discharged home comes back in because of ongoing alcoholism and depression. Patient states she missed some of her psych medications. States drinking 1 bottle of vodka daily. And she was feeling depressed and sad. Denies any suicidal ideation or homicidal ideation. She wanted help so she came to the hospital. Currently resting comfortably. Denies any headache. No dizziness. No runny nose or sore throat. No cough. No fevers. No chest pain or shortness of breath. No nausea. No abdominal pain. Normal bowel and bladder movements. Hemodynamics are okay. Requiring Ativan for anxiety in ER. Past med history. As mentioned above past surgical history. Dental surgery and EGD. Social history.Quit smoking 19 and 7 smoked 1 pack a day for 2 years. Currently drinking 1 bottle of vodka daily. No drug use family history. Father had heart disorder. Mother had a heart disorder. Hypertension. Paternal grandmother had diabetes. Admission Exam Per Admitting Provider General- Not in distress Head- atraumatic Eyes- PERRL. ENT- oropharynx clear Neck- supple, no JVD. Lungs- clear to auscultation no wheezing or crackles. Heart- regular rate and rhythm; no murmur, no gallop. Abdomen- normal bowel sounds, soft, nontender, no distension Extremities- no pretibial edema, no erythema seen. Neuro- alert, oriented PERRL, no facial palsy; no dysarthria; moves extremities. Principal Diagnosis Alcohol use disorder Pancytopenia Depression Hypophosphatemia Discharge Data Allergies Allergy/AdvReac Type Severity Reaction Status Date / Time doxycycline Allergy Severe Muscle Pain Verified 11/26/23 08:30 theophylline AdvReac Intermediate VERTIGO Verified 11/26/23 08:30 Consultations 12/01/23 20:17 ED Decision to Admit Stat 12/02/23 08:00 Consult Hematology Routine 12/02/23 09:00 Consult Psychiatry Routine Procedures Performed Laboratory Results WBC 1.23 K/ul (4.8-10.8) L 12/03/23 06:45 RBC 3.79 M/uL (4.20-5.40) L 12/03/23 06:45 Hgb 11.9 g/dl (12.0-16.0) L 12/03/23 06:45 Hct 34.9 % (37.0-47.0) L 12/03/23 06:45 MCV 92.1 fL (80.0-100.0) 12/03/23 06:45 MCH 31.4 pg (25.0-34.0) 12/03/23 06:45 MCHC 34.1 g/dL (32.0-36.0) 12/03/23 06:45 RDW Std Deviation 49.2 fL (36.4-46.3) H 12/03/23 06:45 RDW Coeff of Suzanne 14.7 % (11.5-14.5) H 12/03/23 06:45 Plt Count 86 K/uL (130-400) L 12/03/23 06:45 MPV 10.4 fL (9.4-12.4) 12/03/23 06:45 Immature Gran % (Auto) 0.0 % 12/03/23 06:45 Neut % (Auto) 28.5 % 12/03/23 06:45 Lymph % (Auto) 52.0 % 12/03/23 06:45 Caswell % (Auto) 16.3 % 12/03/23 06:45 Eos % (Auto) 2.4 % 12/03/23 06:45 Baso % (Auto) 0.8 % 12/03/23 06:45 Neut # (Auto) 0.35 K/uL (1.40-6.50) L* 12/03/23 06:45 Lymph # (Auto) 0.64 K/uL (1.20-3.40) L 12/03/23 06:45 Caswell # (Auto) 0.20 K/uL (0.11-0.59) 12/03/23 06:45 Eos # (Auto) 0.03 K/uL (0.00-0.50) 12/03/23 06:45 Baso # (Auto) 0.01 K/uL (0.00-0.20) 12/03/23 06:45 Immature Gran # (Auto) 0.00 K/uL (0.01-0.20) L 12/03/23 06:45 Absolute Nucleated RBC 0.02 K/uL (0.00-0.12) 12/01/23 17:39 Nucleated RBC % (auto) 0.8 % 12/01/23 17:39 Platelet Estimate Decreased (Normal) L 12/03/23 06:45 RBC Morphology Unremarkable 12/03/23 06:45 Sodium 133 mmol/L (136-145) L 12/03/23 06:45 Potassium 4.6 mmol/L (3.5-5.1) 12/03/23 06:45 Chloride 101 mmol/L (98-107) 12/03/23 06:45 Carbon Dioxide 29 mmol/L (21-32) 12/03/23 06:45 Anion Gap 3 (3-11) 12/03/23 06:45 BUN 11 mg/dl (6-23) 12/03/23 06:45 Creatinine 0.69 mg/dl (0.6-1.2) 12/03/23 06:45 Est Cr Clr Drug Dosing 94.7 ml/min 12/03/23 06:45 Est GFR ( Amer) 119.3 ml/min 12/03/23 06:45 Est GFR (Non-Af Amer) 102.9 ml/min 12/03/23 06:45 BUN/Creatinine Ratio 15.9 (10-20) 12/03/23 06:45 Glucose 285 mg/dl (70-99(Fasting)) H 12/03/23 06:45 POC Glucose 151 mg/dl (70-99) H 12/03/23 11:05 Estimat Average Glucose 220 mg/dl 12/02/23 03:56 Hemoglobin A1c 9.3 % (4.5-5.6) H 12/02/23 03:56 Calcium 9.7 mg/dl (8.6-10.3) 12/03/23 06:45 Phosphorus 2.0 mg/dl (2.5-4.9) L 12/03/23 06:45 Magnesium 2.0 mg/dl (1.7-2.4) 12/03/23 06:45 Total Bilirubin 0.9 mg/dl (0.2-1.0) 12/03/23 06:45 Direct Bilirubin 0.2 mg/dl (0-0.2) 12/02/23 03:56 AST 75 U/L (13-39) H 12/03/23 06:45 ALT 68 U/L (7-52) H 12/03/23 06:45 Alkaline Phosphatase 213 U/L (34-104) H 12/03/23 06:45 Total Protein 6.4 gm/dl (6.0-8.3) 12/03/23 06:45 Albumin 3.7 gm/dl (3.4-5.0) 12/03/23 06:45 Globulin 2.7 gm/dl (2.5-4.0) 12/03/23 06:45 Albumin/Globulin Ratio 1.4 (0.9-2) 12/03/23 06:45 Lipase 18 U/L (11-82) 12/01/23 17:39 Vitamin B12 754 pg/ml (180-914) 12/02/23 03:56 Folate > 22.30 ng/ml (>5.38) 12/02/23 03:56 TSH 1.628 uIu/ml (0.300-4.500) 12/01/23 17:39 Urine Color Yellow 12/01/23 21:37 Urine Appearance Clear (Clear) 12/01/23 21:37 Urine pH 6.0 (4.5-7.5) 12/01/23 21:37 Ur Specific Jackson 1.014 (1.000-1.030) 12/01/23 21:37 Urine Protein Trace (Negative) H 12/01/23 21:37 Urine Glucose (UA) 1+ (Negative) H 12/01/23 21:37 Urine Ketones Trace (Negative) H 12/01/23 21:37 Urine Blood Negative (Negative) 12/01/23 21:37 Urine Nitrite Negative (Negative) 12/01/23 21:37 Urine Bilirubin Negative (Negative) 12/01/23 21:37 Urine Urobilinogen Negative (Negative) 12/01/23 21:37 Ur Leukocyte Esterase Negative (Negative) 12/01/23 21:37 Urine WBC (Auto) 0-5 /hpf (0-5) 12/01/23 21:37 Urine RBC (Auto) 0-2 /hpf (0-2) 12/01/23 21:37 U Hyaline Cast (Auto) 0-2 /lpf (0-2) 12/01/23 21:37 U Epithel Cells (Auto) 0-2 /hpf (0-2) 12/01/23 21:37 Urine Bacteria (Auto) None Seen (None Seen) 12/01/23 21:37 Salicylates < 3.0 mg/dl (3.0-30) L 12/01/23 17:39 Urine Opiates Screen Neg (Neg) 12/01/23 21:37 Ur Methadone, Qual Neg (Neg) 12/01/23 21:37 Urine Fentanyl Screen Neg (Neg) 12/01/23 21:37 Acetaminophen < 3 ug/ml (10-30) L 12/01/23 17:39 Urine Barbiturates Neg (Neg) 12/01/23 21:37 Ur Phencyclidine (PCP) Neg (Neg) 12/01/23 21:37 U Amphetamin/Meth Scrn Neg (Neg) 12/01/23 21:37 MDMA (Ecstasy) Screen Neg (Neg) 12/01/23 21:37 U Benzodiazepines Scrn Neg (Neg) 12/01/23 21:37 Ur Cocaine Metabolite Neg (Neg) 12/01/23 21:37 U Marijuana (THC) Screen Neg (Neg) 12/01/23 21:37 Ethyl Alcohol mg/dL 341.5 mg/dl (<10.0) H 12/01/23 17:39 Anaplasma Smear See Comment 12/02/23 03:56 Babesia Smear See Comment 12/02/23 03:56 Lyme Disease Screen Negative (Negative) 12/02/23 03:56 Hospital Course (1) Alcohol abuse: 48-year-old female with past med history significant for type 2 diabetes, asthma moderate persistent, ongoing alcoholism, panic disorder and depression and 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 Patient was recently in the hospital with alcoholism and depression with suicidal ideation and seen by psychiatry and did not require any inpatient psychiatric care and did fine discharged home comes back in because of ongoing alcoholism and depression. Patient states she missed some of her psych medications. States drinking 1 bottle of vodka daily. And she was feeling depressed and sad. Denies any suicidal ideation or homicidal ideation. She wanted help so she came to the hospital. Currently resting comfortably. Denies any headache. No dizziness. No runny nose or sore throat. No cough. No fevers. No chest pain or shortness of breath. No nausea. No abdominal pain. Normal bowel and bladder movements. Hemodynamics are okay. Requiring Ativan for anxiety in ER. Alcohol abuse Recurrent admission with withdrawal and alcoholism Recent admission with suicidal ideation Counseled to quit drinking On gabapentin protocol Denies currently any suicidal thoughts Interested to follow-up with AA upon discharge Continue thiamine, folic acid Currently no signs of alcohol withdrawal Plan to be discharged home today Severe Depression H/O suicidal ideation during last admission-cleared by the psychiatrist Appreciate psychiatric input and recommendations Does not meet 302 criteria per psych She declined voluntary inpatient psychiatric treatment as per record Advised to follow-up with psychiatry on discharge Pancytopenia Noted to have pancytopenia likely secondary to alcoholism Hematology consulted Currently no signs of bleeding issues Monitor CBC Advised to follow-up with hematology on discharge Elevated LFTs Secondary to alcoholism Avoid hepatotoxic agents as able Monitor LFTs DM II Continue insulin for management of diabetes mellitus HbA1c level-elevated at 9.3 monitor BGs Asthma continue home inhalers No signs of exacerbation currently DVT Px: Heparin SQ CODE STATUS full code Total Time Total Time Spent Total Time Spent (In Minutes): 49 minutes Discharge Plan Discharge Items Patient Disposition: Home - Self-Care Reason For Visit: ALCOHOLISM, DEPRESSION Discharge Diagnosis: Alcohol use disorder Pancytopenia Depression Hypophosphatemia Activity: Per Instructions section Exercise/Sports: Gradually increase as tolerated Non-emergency contact: Primary Care Provider and Psychiatrist Call non-emergency contact if: you have any medication questions, your symptoms worsen, your pain is concerning for you and you have a fever Follow-up/Referrals: Krystin Graves MD [Primary Care Provider] - (Date & Time 12/05/2023 11:00 AM Provider Krystin Graves MD Department [facility] ) Diet: Carb Consistent or DM2 and Heart Healthy Addtl Attending Provider Instructions: Follow-up with your primary care physician in 1 week Follow-up with your psychiatrist as recommended -- Quit drinking alcohol as advised Seek immediate medical attention if your symptoms reoccur or worsen Please take all medications as instructed on discharge list below. Please call if you have any questions or problems. You can reach a [facility] hospitalist on duty at [facility] 24 hours a day by calling [phone] Pending Studies at Discharge: No Stand-Alone Forms: My [facility], Smoking Cessation Medications and DC Order Prescriptions: New thiamine HCl (vitamin B1) 100 mg Tablet 100 mg PO QAM Qty: 30 0RF folic acid 1 mg Tablet 1 mg PO QAM Qty: 30 0RF Phospha 250 Neutral 250 mg tablet 1 tab PO BID Qty: 10 0RF Continued fluticasone propion-salmeterol [Advair Diskus] 250-50 mcg/dose blister with device 1 inh inhalation QAM albuterol sulfate [Ventolin HFA] 90 mcg/actuation Hfa Aerosol Inhaler 2 puff INHALATION UD PRN (Reason: Shortness Of Breath) Rx Instructions: Inhale 2 puffs by mouth 4 times daily PRN for SOB/wheezing. buspirone 10 mg tablet 20 mg PO TID Rx Instructions: Take 2 Tablets by mouth in the morning and 2 Tablets at noon and 2 Tablets before bedtime. ascorbic acid (vitamin C) [Vitamin C] 500 mg Tablet Extended Release 500 mg PO DAILY trazodone 50 mg tablet 50 mg PO QPM escitalopram oxalate 10 mg tablet 10 mg PO QAM (DME) pen needle, diabetic [BD Ultra-Fine Gertrude Pen Needle] 32 gauge x 5/32" needle MISCELLANEOUS Rx Instructions: Use to inject insulin 4 times daily. Fiasp FlexTouch U-100 Insulin 100 unit/mL (3 mL) insulin pen 4 - 5 unit SUBCUT TID Rx Instructions: Inject 5 units under the skin before breakfast, 4 units with lunch, and 4 units with dinner. insulin glargine-yfgn [Semglee(insulin glarg-yfgn)Pen] 100 unit/mL (3 mL) insulin pen 32 unit SUBCUT QAM lorazepam 0.5 mg tablet 0.5 mg PO TID PRN (Reason: Anxiety) zinc acetate 50 mg (zinc) Capsule 50 mg PO DAILY gevrhbqfijcc-Lb-plye-minerals Tablet 1 tab PO DAILY Discharge Orders: Discharge Order (Routine); Ordered 12/03/23 Ordered By: Bucky Servin Admission Data Admit Date/Time: 12/01/23 22:15 Attending Provider: Bucky Servin Admit Provider: Ricco Byrd Primary Care Provider: Krystin Graves Other Providers: Ricco Byrd; Em Lee; Ying Escobar; Kumar Herron; Souleymane Monique Jr; Ana Molina; Bri De La Rosa; Joni Castro Other Interventions: Discharge Summary Assessment (RN) Last Done: 12/03/23 14:00
[2023-12-04] MEDS ORDERED: GABAPENTIN 600 MG TAB PO SCH
[2023-12-05 04:43] LABS: Babesia microti DNA Not Detected (Not Detected)
[2023-12-05] MEDS ORDERED: GABAPENTIN 600 MG TAB PO SCH (12:00)
[2023-12-07 12:07] LABS: Ehrlichia chaff DNA Bld Negative (Negative)
== END 2023-12-03 14:45 | disposition home or self-care (01) ==
LOC: ED 17:19 → INTOOBSV 22:15 → SUATTDRO 22:15 → EDINP 22:15 → 2S 12-02 20:39

== ENCOUNTER 2023-12-28 10:20 | Inpatient (IN) ==
--- OUTSIDE RECORDS SUMMARY | 2023-12-28 10:27 | External Medical Summary | Summary of Care ---
Author Name Unknown Organization [facility] Address [address] [place] [address] Phone [phone] Care Team Providers Care Telegraph Repeater Mechanic Name Role Phone Krystin Graves MD Primary Care Provid er Reason for Visit * Reason Onset Date Comments Medication Problem 12/08/2023 Encounter Details Date Type Department Care Team (Late st Contact Info) Description 12/08/2023 Telephone [facility] [address] [place] [address] Krystin Graves MD [address] [place] [address] Medication Problem Allergies Active Allergy Reactions Criticality Noted Date Comments Doxycycline High 07/15/2023 arthralgia Theophylline 04/30/2002 anxiety Theophylline Sodium Glycinate 2004 nervous documented as of this encounter (statuses as of 12/08/2023) Medications Medication Sig Dispensed Refills Start Date [...] Information Patient not taking.Reported on 07/12/2023 FreeStyle [place] Lite w/Device KitIndications:DM type 2, not at goal (HCC) Use to check sugars daily. E 11.9 1 Kit 04/16/2023 Active Triamcinolone Acetonide 55 MCG/ACT Nasal Aerosol (Nasacort Allergy 24HR) Administer into nostril as needed for Rhinitis. Active FreeStyle Beth 3 SensorIndications:DM type 2, not at goal ([facility]) Use as directed. Replace sensors every 14 [...] with dinner. 15 mL 3 10/16/2023 Active LORazepam 0.5 MG Oral Tablet (Ativan)Indications: Panic attack Take 1 Tablet by mouth 3 times a day as needed for Anxiety. 15 Tablet 11/21/2023 Active Insulin Glargine-yfgn 100 UNIT/ML Subcutaneous Solution Pen-injector (Semglee (yfgn))Indications:D M type 2, not at goal (HCC) Inject 32 Units under the skin in the morning. Dose increase. 30 mL 3 11/20/2023 Active Escitalopram Oxalate 20 MG Oral Tablet (Lexapro)Indications :Anxiety,Primary insomnia Take 1 Tablet by mouth in the morning. 90 Tablet 1 12/05/2023 Active traZODone HCl 100 MG Oral Tablet (Desyrel)Indications :Anxiety,Primary insomnia Take 1 Tablet by mouth at bedtime. 90 Tablet 1 12/05/2023 Active Montelukast Sodium 10 MG Oral Tablet (Singulair)Indicatio ns:Moderate persistent asthma without complication Take 1 Tablet by mouth at bedtime. 90 Tablet 3 12/05/2023 Active hydrOXYzine HCl 10 MG Oral Tablet (Atarax)Indications: Anxiety Take 1 Tablet by mouth every 6 hours as needed for Anxiety (insomnia). 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 . Anxiety documented as of this encounter (statuses as of 12/08/2023) Resolved Problems Problem Noted Date Diagnosed Date [...] 08/21/2012 Overview: ICD-10 update of inactive term Asthma with severity to be determined 03/19/2018 Overview: hospitalized for 2 days documented as of this encounter (statuses as of 12/08/2023) Immunizations Name Administration Dates Next Due COVID-19 mRNA, LNP-s, No Pre serve, 2-Dose Series (Deanslist) 04/17/2021,08/22/2020 Covid-19, Mrna, Lnp-s, Pf, B ivalent, 30 Mcg, IM, 12 yrs and above (Pfizer) 03/20/2022,09/25/2021 Hepatitis B, 20+ yrs 03/05/2021 Pneumococcal Conjugate Vacci ne, 20-valent ([id number]) 02/20/2023 Pneumococcal Polysaccharide PPV23 (Pneumovax) 03/19/2018 Seasonal [...] Telephone Encounter - Krystin Graves MD - 12/08/2023 7:26 PM EDT Concurrent use is ok * Telephone Encounter - Geovani Bronson [facility] - 12/08/2023 5:51 PM EDT Please advise on drug interaction, if concurrent use is okay. Thanks, Geovani Bronson, PharmD Clinical Pharmacist [facility] ([facility]) [phone] 12/08/2023, 5:53 PM * Telephone Encounter - Latricia Warner CPhT - 12/08/2023 4:27 PM EDT Kandis calling from [facility] regarding a potential drug interaction between two medications that the pt has been prescribed. intx: Drug Interaction 1. hydrOXYzine HCl 10 MG Oral Tablet (Atarax) 2. Escitalopram Oxalate 20 MG Oral Tablet (Lexapro) - Cardiac issues [facility] direct pharmacist:[phone] Please review and advise provider appropriately. Thank you, Clemencia Warner Senior Software Systems Engineer I [facility] 12/08/2023,4:27 PM documented in this encounter Plan of Treatment Upcoming Encounters Date Type Department Care Team (Late st Contact Info) Description 12/22/2023 1:00 PM EDT [address] [address] [place], [facility] [address] [place] [address] 01/16/2024 3:00 PM EDT Office Visit [facility] [place] [address] [place] [id number] Krystin Graves MD [address] [place] [address] 03/16/2024 3:00 PM EDT Office Visit Hepatology, [facility] [address] [facility] [place] [address] Vee Juarez MD [address] [address] 03/18/2024 10:00 AM EDT [facility] [address] [place] [address] Woodrow Jang DO [address] [place] [address] Health Maintenance Due Date Last Done Comments [...] filedocumented as of this encounter Care Teams Telegraph Repeater Mechanic Relationship Specialty Start Date End Date Krystin Graves MD [address] [place] [address] PCP - General Family Medicine 10/21/22 documented as of this encounter
--- OUTSIDE RECORDS SUMMARY | 2023-12-28 10:27 | External Medical Summary | Summary of Care ---
Author Name Unknown Organization [facility] Address [address] [place] [address] Phone [phone] Care Team Providers Care 7Th Grade Social Studies Teacher Name Role Phone Krystin Graves MD Primary Care Provid er Reason for Visit * Reason Onset Date Comments Medication Problem 12/08/2023 Encounter Details Date Type Department Care Team (Late st Contact Info) Description 12/08/2023 Telephone [facility] [address] [place] [address] Krystin Graves MD [address] [place] [address] Medication Problem Allergies Active Allergy Reactions Criticality Noted Date Comments Doxycycline High 07/15/2023 arthralgia Theophylline 04/30/2002 anxiety Theophylline Sodium Glycinate 2004 nervous documented as of this encounter (statuses as of 12/09/2023) Medications Medication Sig Dispensed Refills Start Date [...] Information Patient not taking.Reported on 07/12/2023 FreeStyle [place] Lite w/Device KitIndications:DM type 2, not at goal ([facility]) Use to check sugars daily. E 11.9 1 Kit 04/16/2023 Active Triamcinolone Acetonide 55 MCG/ACT Nasal Aerosol (Nasacort Allergy 24HR) Administer into nostril as needed for Rhinitis. Active FreeStyle Beth 3 SensorIndications:D M type 2, not at goal ([facility]) Use as directed. Replace sensors every 14 [...] Active Escitalopram Oxalate 20 MG Oral Tablet (Lexapro)Indication s:Anxiety,Primary insomnia Take 1 Tablet by mouth in the morning. 90 Tablet 1 12/05/2023 Active traZODone HCl 100 MG Oral Tablet (Desyrel)Indication s:Anxiety,Primary insomnia Take 1 Tablet by mouth at bedtime. 90 Tablet 1 12/05/2023 Active Montelukast Sodium 10 MG Oral Tablet (Singulair)Indicati ons:Moderate persistent asthma without complication Take 1 Tablet by mouth at bedtime. 90 Tablet 3 12/05/2023 Active hydrOXYzine HCl 10 MG Oral Tablet (Atarax)Indications :Anxiety Take 1 Tablet by mouth every 6 hours as needed for Anxiety (insomnia). 120 Tablet 1 12/09/2023 Active hydrOXYzine HCl 10 MG Oral Tablet (Atarax)Indications :Anxiety Take 1 Tablet by mouth every 6 hours as needed for Anxiety (insomnia). 120 Tablet 1 12/08/2023 4 Discontinu ed(Refill) documented as of this encounter (statuses as of 12/09/2023) Active Problems Problem Noted Date Diagnosed Date [...] as of this encounter (statuses as of 12/09/2023) Resolved Problems Problem Noted Date Diagnosed Date [...] as of this encounter (statuses as of 12/09/2023) Immunizations Name Administration Dates Next Due COVID-19 mRNA, LNP-s, No Pre serve, 2-Dose Series (DOZ) 04/17/2021,08/22/2020 Covid-19, Mrna, Lnp-s, Pf, B ivalent, 30 Mcg, IM, 12 yrs and above (DOZ) 03/20/2022,09/25/2021 HEP A - Hepatitis A (Adult > 18 yrs) 01/21/2001 Hepatitis B, 20+ yrs 03/05/2021 Pneumococcal Conjugate Vacci ne, 20-valent ([id number]) 02/20/2023 Pneumococcal Conjugate Vacci ne, 7 Valent [...] encounter Miscellaneous Notes * Addendum Note - Darrion Tsai RP - 12/09/2023 10:39 AM EDTAddended by: DARRION TSAI on: 12/09/2023 10:39 AM Modules accepted: Orders * Telephone Encounter - Krystin Graves MD - 12/08/2023 7:26 PM EDT Concurrent use is ok * Telephone Encounter - Darrion Tsai [facility] - 12/08/2023 5:51 PM EDT Please advise on drug interaction, if concurrent use is okay. Thanks, Darrion Tsai, PharmD Clinical Pharmacist [facility] ([facility]) [phone] 12/08/2023, 5:53 PM * Telephone Encounter - Latricia Warner CPhT - 12/08/2023 4:27 PM EDT Kandis juanita from [facility] regarding a potential drug interaction between two medications that the pt has been prescribed. intx: Drug Interaction 1. hydrOXYzine HCl 10 MG Oral Tablet (Atarax) 2. Escitalopram Oxalate 20 MG Oral Tablet (Lexapro) - Cardiac issues [facility] pharmacist:[phone] Please review and advise provider appropriately. Thank you, Clemencia Warner Stonecutter Apprentice Hand I [facility] 12/08/2023,4:27 PM documented in this encounter Plan of Treatment Upcoming Encounters Date Type Department Care Team (Late st Contact Info) Description 12/22/2023 1:00 PM EDT Telemedicine Pharmacy, [place] [address] [place] [address] [facility] [address] [place] [address] 01/16/2024 3:00 PM EDT Office Visit Family Practice, [place] [address] [place] [address] Krystin Graves MD [address] [place] [address] 03/16/2024 3:00 PM EDT Office Visit Hepatology, [facility] [address] [facility] [place] [address] Vee Juarez MD [address] [facility] [place] [address] 03/18/2024 10:00 AM EDT Telemedicine Psychiatry Yudith Gonzales [address] [place] [id number] Woodrow Jang DO [address] [facility] [place] [address] Health Maintenance Due Date Last Done Comments [...] Visit Diagnoses Diagnosis Anxiety Anxiety state, unspecified documented in this encounter Care Teams 7Th Grade Social Studies Teacher Relationship Specialty Start Date End Date Krystin Graves MD [address] [place] [address] PCP - General Family Medicine 10/21/22 documented as of this encounter
--- OUTSIDE RECORDS SUMMARY | 2023-12-28 10:27 | External Medical Summary | Summary of Care ---
Author Name Unknown Organization [facility] Address [address] [place] [address] Phone [phone] Care Team Providers Care Daytime Babysitter Name Role Phone Krystin Graves MD Primary Care Provid er Reason for Visit * Reason Onset Date Comments Hospital Follow-Up Does have FML A paperwork that needs filled out Did got to and ER in [place] on November 11 but there are not reports of that in the chart Anxiety control Started with nasal drainage and coughing but not color to the phlegm and does have an itchy ear on the R Hospital Follow-Up 12/05/2023 Encounter Details Date Type Department Care Team (Late st Contact Info) Description 12/05/2023 11:00 AM EDT Office Visit [place] [address] [place] [address] Krystin Graves MD [address] [place] [address] Hospital discharge follow-up*; Severe episode of recurrent major depressive disorder, without psychotic features (HCC); Anxiety; Alcoholic cirrhosis of liver without ascites (HCC); Alcoholism (HCC); Primary insomnia; Moderate persistent asthma without complication Allergies Active Allergy Reactions Criticality Noted Date Comments Doxycycline High 07/15/2023 arthralgia Theophylline 04/30/2002 anxiety Theophylline Sodium Glycinate 2004 nervous documented as of this encounter (statuses as of 12/05/2023) Medications Medication Sig Dispensed Refills Start Date [...] Information Patient not taking.Reported on 07/12/2023 FreeStyle [place] Lite w/Device KitIndications:DM type 2, not at [...] Needle)Indications: DM type 2, not at goal ([facility]) Use to inject insulin 4 times [...] (w/Niacinamide))Ind ications:DM type 2, not at goal ([facility]) Inject 5 units under the skin before breakfast, 4 units with lunch, and 4 units with dinner. 15 mL 3 10/16/2023 Active LORazepam 0.5 MG Oral Tablet (Ativan)Indications :Panic attack Take 1 Tablet by mouth 3 times a day as needed for Anxiety. 15 Tablet 11/21/2023 Active Insulin Glargine-yfgn 100 UNIT/ML Subcutaneous Solution Pen-injector (Semglee (yfgn))Indications: DM type 2, not at goal ([facility]) Inject 32 Units under the skin [...] at bedtime. 90 Tablet 3 12/05/2023 Active traZODone HCl 50 MG Oral Tablet (Desyrel)Indication s:Anxiety,Primary insomnia Take 1 Tablet by mouth at bedtime. 7 Tablet 11/11/2023 Discontinu ed(Refill) Escitalopram Oxalate 10 MG Oral Tablet (Lexapro)Indication s:Anxiety Take 1 Tablet by mouth in the morning. 7 Tablet 11/11/2023 4 Discontinu ed(Refill) documented as of this encounter (statuses as of 12/05/2023) Active Problems Problem Noted Date Diagnosed Date [...] as of this encounter (statuses as of 12/05/2023) Resolved Problems Problem Noted Date Diagnosed Date [...] as of this encounter (statuses as of 12/05/2023) Immunizations Name Administration Dates Next Due COVID-19 mRNA, LNP-s, No Pre serve, 2-Dose Series ([employer]) 04/17/2021,08/22/2020 Covid-19, Mrna, Lnp-s, Pf, B ivalent, 30 Mcg, IM, 12 yrs and above ([employer]) 03/20/2022,09/25/2021 Hepatitis B, 20+ yrs 03/05/2021 Pneumococcal Conjugate Vacci ne, 20-valent ([id number]) 02/20/2023 Pneumococcal Polysaccharide PPV23 (Pneumovax) 03/19/2018 Seasonal [...] Sign Reading Time Taken Comments Blood Pressure 116/62 12/05/2023 10:44 AM EDT Pulse 87 12/05/2023 10:44 AM EDT Temperature 36.1 C (96.9 F) 12/05/2023 1 0:44 AM EDT Respiratory Rate 16 12/05/2023 10:4 4 AM EDT Oxygen Saturation 97% 12/05/2023 10: 44 AM EDT Inhaled Oxygen Concentration - - Weight 72.4 kg (159 lb 11.2 oz) 024 10:44 AM EDT Height 157.5 cm (5' 2") 12/05/2023 10:4 4 AM EDT Body Mass Index 29.21 12/05/2023 10:44 AM EDT documented in this encounter Progress Notes * Krystin Graves MD - 12/05/2023 11:04 AM EDT Images from the original note were not included. ASSESSMENT / PLAN: Marcus Avelar is a 48 year old female with PMHx alcoholism / hepatitis / h/o acute pancreatitis and REG / diabetes insulin dependent - Here for ALEX - Admitted at [facility] Admission date: 11/30 Discharge date: 12/02 Also with recent admission 11/26/23 then discharged 11/28/23 and then again in August 23 - 09/14/23 Psychiatric meds at the time were changed to lexapro, trazodone and buspar. Presented with: alcoholism relapse, suicidal ideations, depression, anxiety, alcohol withdrawal Diagnosis: as above Diagnostics: LAWSON > 100 Hospital stay complicated by: 1- none Treatments / Consultation(s): 1- none (psychiatry was consulted in earlier November admission - Changes to chronic medications: 1 - none Next appt with psychiatry is not until February. She is agreeable to up titration of lexapro and trazodone today (she'll space this out by 1 week) Start singulair for sinuses Hospital discharge follow-up (Primary) - DISCH MED RECON CUR MED LIS Severe episode of recurrent major depressive disorder, without psychotic features (HCC) - DISCH MED RECON CUR MED LIS Anxiety - DISCH MED RECON CUR MED LIS - Escitalopram Oxalate 20 MG Oral Tablet (Lexapro); Take 1 Tablet by mouth in the morning. - traZODone HCl 100 MG Oral Tablet (Desyrel); Take 1 Tablet by mouth at bedtime. Alcoholic cirrhosis of liver without ascites (HCC) - DISCH MED RECON CUR MED LIS Alcoholism (HCC) - DISCH MED RECON CUR MED LIS Primary insomnia - DISCH MED RECON CUR MED LIS - Escitalopram Oxalate 20 MG Oral Tablet (Lexapro); Take 1 Tablet by mouth in the morning. - traZODone HCl 100 MG Oral Tablet (Desyrel); Take 1 Tablet by mouth at bedtime. Moderate persistent asthma without complication - Montelukast Sodium 10 MG Oral Tablet (Singulair); Take 1 Tablet by mouth at bedtime. If needed, prefers contact by: Ok to leave message on phone: SUBJECTIVE: Nursing Notes: Sade Thorne LPN 12/05/23 1054 Addendum The patient has been properly identified by confirmation of name and date of . Chief Complaint Patient presents with Hospital Follow-Up Does have FMLA paperwork that needs filled out Did got to and ER in [place] on November 11 but there are not reports of that in the chart Anxiety control Started with nasal drainage and coughing but not color to the phlegm and does have an itchy ear on the R HPI: Marcus Avelar is a 48 year old female. Here for recheck. 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 Fluticasone-Salmeterol 250-50 MCG/ACT Inhalation Aerosol Powder Breath Activated (Advair Diskus) Inhale 1 Puff by mouth in the morning and 1 Puff before bedtime. 3 Each 3 Glycopyrrolate 1 MG Oral Tablet (Robinul) Take 1 Tablet by mouth 3 times a day as needed (sweating). 30 Tablet 1 FreeStyle [place] Lite w/Device Kit Use to check sugars [...] 2 Tablets before bedtime. 540 Tablet 3 BD Pen Needle Gertrude 2nd Gen 32G X 4 MM (Insulin Pen Needle) Use to inject insulin 4 times daily. E 11.9 400 Each 3 Magnesium 30 MG Oral Tablet Take by mouth. Albuterol Sulfate HFA 108 (90 Base) MCG/ACT Inhalation Aerosol Solution Inhale 2 Puffs by mouth in the morning and 2 Puffs at noon and 2 Puffs in the evening and 2 Puffs before bedtime. Inhale 2 Puffs by mouth 4 times a day.. 54 g 3 Fiasp FlexTouch 100 UNIT/ML Subcutaneous Solution Pen-injector (Insulin Aspart (w/Niacinamide)) Inject 5 units under the skin before breakfast, 4 units with lunch, and 4 units with dinner. 15 mL 3 LORazepam 0.5 MG Oral Tablet (Ativan) Take 1 Tablet by mouth 3 times a day as needed for Anxiety. 15 Tablet 0 Insulin Glargine-yfgn 100 UNIT/ML Subcutaneous Solution Pen-injector (Ricardoglee (yfgn)) Inject 32 Units under the skin in the morning. Dose increase. 30 mL 3 Escitalopram Oxalate 20 MG Oral Tablet (Lexapro) Take 1 Tablet by mouth in the morning. 90 Tablet 1 traZODone HCl 100 MG Oral Tablet (Desyrel) Take 1 Tablet by mouth at bedtime. 90 Tablet 1 Montelukast Sodium 10 MG Oral Tablet (Singulair) Take 1 Tablet by mouth at bedtime. 90 Tablet 3 Atorvastatin Calcium 20 MG Oral Tablet (Lipitor) [...] facility-administered medications for this visit. OBJECTIVE: BP 116/62 | Pulse 87 | Temp 36.1 C (96.9 F) | Resp 16 | Ht 1.575 m (5' 2") | Wt 72.4 kg (159 lb11.2 oz) | SpO2 97% | BMI 29.21 kg/m | BSA 1.78 m Vitals reviewed and is normotensive / afebrile / and not tachycardic General: No acute distress. Neuro: Alert Pleasant & interactive. Respiratory: Good inspiratory effort, no labored breathing. HEENT: Conjunctivae appear clear. No swelling noted face or lips. TM s wnl bl Skin: No rash visible on exposed skin areas, normal coloration & appears dry. Psych: Normal affect. Fluent speech. Krystin Graves MD [address] [phone] There are no Patient Instructions on file for this visit. documented in this encounter Nursing Notes * Sade Thorne LPN - 12/05/2023 10:51 AM EDT The patient has been properly identified by confirmation of name and date of . Chief Complaint Patient presents with Hospital Follow-Up Does have FMLA paperwork that needs filled out Did got to and ER in [place] on November 11 but there are not reports of that in the chart Anxiety control Started with nasal drainage and coughing but not color to the phlegm and does have an itchy ear on the R documented in this encounter Plan of Treatment Upcoming Encounters Date Type Department Care Team (Late st Contact Info) Description 12/22/2023 1:00 PM EDT Telemedicine Pharmacy, [place] [address] [place] [address] [facility] [address] [place] [address] 01/16/2024 3:00 PM EDT Office Visit [facility] [place] [address] [place] [phone] Krystin Graves MD [address] [place] [address] 03/16/2024 3:00 PM EDT Office Visit Hepatology, [facility] [address] [facility] [place] [address] Vee Juarez MD [address] [facility] [place] [address] 03/18/2024 10:00 AM EDT Telemedicine Psychiatry Yudith Gonzales [address] [place] [phone] Woodrow Jang DO [address] [place] [address] Health Maintenance Due Date Last Done Comments [...] Hospital discharge follow-up- Primary Other follow-up examination Severe episode of recurrent major depressive disorder, without psychotic features (HCC) Anxiety Anxiety state, unspecified Alcoholic cirrhosis of liver without ascites (HCC) Alcoholic cirrhosis of liver Alcoholism (HCC) Other and unspecified alcohol dependence, unspecified drinking behavior Primary insomnia Persistent disorder of initiating or maintaining sleep Moderate persistent asthma without complication Unspecified asthma documented in this encounter Care Teams Daytime Babysitter Relationship Specialty Start Date End Date Krystin Graves MD [address] [place] [address] PCP - General Family Medicine 10/21/22 documented as of this encounter
--- OUTSIDE RECORDS SUMMARY | 2023-12-28 10:28 | External Medical Summary | Summary of Care ---
Author Name Unknown Organization [facility] Address [address] [place] [address] Phone [phone] Care Team Providers Care Cop Name Role Phone Krystin Graves MD Primary Care Provid er Reason for Visit * Reason Onset Date Comments Hospital Follow-Up 12/04/2023 ALEX Encounter Details Date Type Department Care Team ([facility] st Contact Info) Description 12/04/[address] [address] Erika Dixon RN Hospital Follow-Up ([facility]) Allergies Active Allergy Reactions Criticality Noted Date Comments Doxycycline High 07/15/2023 arthralgia Theophylline 04/30/2002 anxiety Theophylline Sodium Glycinate 2004 nervous documented as of this encounter (statuses as of 12/04/2023) Medications Medication Sig Dispensed Refills Start Date [...] Information Patient not taking.Reported on 07/12/2023 FreeStyle [place] Lite w/Device KitIndications:DM type 2, not at goal ([facility]) Use to check sugars daily. E 11.9 1 Kit 04/16/2023 Active Triamcinolone Acetonide 55 MCG/ACT Nasal Aerosol (Nasacort Allergy 24HR) Administer into nostril as needed for Rhinitis. Active FreeStyle Beth 3 SensorIndications:DM type 2, not at goal ([facility]) Use as directed. Replace sensors [...] Needle)Indications:D M type 2, not at goal ([facility]) Use to inject insulin 4 [...] (w/Niacinamide))Miladis cations:DM type 2, not at goal ([facility]) Inject 5 units under the [...] (yfgn))Indications:D M type 2, not at goal ([facility]) Inject 32 Units under the skin in the morning. Dose increase. 30 mL 3 11/20/2023 Active documented as of this encounter (statuses as of 12/04/2023) Active Problems Problem Noted Date Diagnosed Date Carrier of methicillin resis tant Staphylococcus aureus (MRSA) 10/21/2022 DM type 2, not at goal 03/13/2020 Major depressive disorder, recurrent episode, mo derate 08/03/2019 Alcoholism 05/13/2019 Panic disorder 12/09/2018 Asthma, moderate persistent 08/21/2012 ADVANCE DIRECTIVE INFORMATION 12/03/2007 Overview: No, Advance Directive brochure offered , patient declined. . documented as of this encounter (statuses as of 12/04/2023) Resolved Problems Problem Noted Date Diagnosed Date [...] as of this encounter (statuses as of 12/04/2023) Immunizations Name Administration Dates Next Due COVID-19 mRNA, LNP-s, No Pre serve, 2-Dose Series ([employer]) 04/17/2021,08/22/2020 Covid-19, Mrna, Lnp-s, Pf, B ivalent, 30 Mcg, IM, 12 yrs and above ([employer]) 03/20/2022,09/25/2021 Hepatitis B, 20+ yrs 03/05/2021 Pneumococcal Conjugate Vacci ne, 20-valent ([id number]) 02/20/2023 Pneumococcal Polysaccharide PPV23 (Pneumovax) 03/19/2018 Seasonal [...] Telephone Encounter - Erika Dixon RN - 12/04/2023 1:56 PM EDT Transitions of Care Note Reason for Referral:Recent Admission Phone visit for follow up: ALEX Admitted to: [facility], Date: 12/01/2023 Discharged to: Home, Date: 12/03/2023 Diagnosis driving hospitalization: Alcohol use disorder, Pancytopenia, Depression, Hypophosphatemia Attempted ALEX - no answer. Left message to return call [phone] or . Reminded of PCP appointment in AM. Erika Dixon RN documented in this encounter Plan of Treatment Upcoming Encounters Date Type Department Care Team (Late st Contact Info) Description 12/05/2023 11:00 AM EDT Office Visit [place] [facility] [address] [facility] [place] [address] Krystin Graves MD [address] [place] [address] 12/22/2023 1:00 PM EDT Telemedicine Pharmacy, [place] [address] [place] [address] [facility] [address] [place] [address] 01/16/2024 3:00 PM EDT Office Visit [place] [address] [facility] [place] [phone] Krystin Graves MD [address] [place] [address] 03/16/2024 3:00 PM EDT Office Visit Hepatology, [facility] [address] [facility] [place] [address] Vee Juarez MD [address] [place] [phone] 03/18/2024 10:00 AM EDT Telemedicine Psychiatry Yudith Gonzales [address] [place] [phone] Woodrow Jang DO [address] [facility] [address] Health Maintenance Due Date Last Done Comments [...] filedocumented as of this encounter Care Teams Cop Relationship Specialty Start Date End Date Krystin Graves MD [address] [place] [facility] [place] [address] PCP - General Family Medicine 10/21/22 documented as of this encounter
--- OUTSIDE RECORDS SUMMARY | 2023-12-28 10:28 | External Medical Summary | Summary of Care ---
Author Name Unknown Organization [facility] Address [address] [place] [address] Phone [phone] Care Team Providers Care Venipuncturist Name Role Phone Krystin Graves MD Primary Care Provid er Reason for Visit * Reason Comments Dosage Adjustment In Person (Anticoag Cl inic) Diabetes Follow-Up Encounter Details Date Type Department Care Team (Late st Contact Info) Description 12/04/2023 10:30 AM EDT Telemedicine Pharmacy, [address] [address] [facility] [address] [place] [address] DM type 2, not at goal (HCC)* [...] Information Patient not taking.Reported on 07/12/2023 FreeStyle [place] Lite w/Device KitIndications:DM type 2, not at goal ([facility]) Use to check sugars daily. E 11.9 1 Kit 04/16/2023 Active Triamcinolone Acetonide 55 MCG/ACT Nasal Aerosol (Nasacort Allergy 24HR) Administer into nostril as needed for Rhinitis. Active FreeStyle Beth 3 SensorIndications:DM type 2, not at goal ([facility]) Use as directed. Replace sensors every [...] Needle)Indications:D M type 2, not at goal ([facility]) Use to inject insulin 4 times daily. [...] (w/Niacinamide))Miladis cations:DM type 2, not at goal ([facility] [...] (yfgn))Indications:D M type 2, not at goal ([facility]) Inject 32 Units under the skin in [...] mRNA, LNP-s, No Pre serve, 2-Dose Series ([employer]) 04/17/2021,08/22/2020 Covid-19, Mrna, Lnp-s, Pf, B ivalent, 30 Mcg, IM, 12 yrs and above ([employer]) 03/20/2022,09/25/2021 Hepatitis B, 20+ yrs 03/05/2021 Pneumococcal Conjugate Vacci ne, 20-valent ([id number]) 02/20/2023 Pneumococcal Polysaccharide PPV23 (Pneumovax) 03/19/2018 Seasonal [...] encounter Progress Notes * Elizabeth Rosario, [facility] - 12/04/2023 10:33 AM EDT Images from the original note were not included. Patient location: HOME. I was in a hospital or clinic location. After connecting through [employer] / [email or web address],patient was verified with two unique identifiers. Patient (or authorized legal medical billing representative) was then informed that this was [...] visit. DIABETES: Current diabetic medications: INC Semglee 32 units once daily has been taking 30 units INC/ADJ Fiasp 4 units with meals + 1:40 over 180 has only been taking 3-4 units Medication Injection Site: Abdomen Lifestyle: Diet: unchanged Glucose Review/SMBG: Readings obtained from patient device Hypoglycemia: Does your blood sugar go below 70 mg/dL? No Hyperglycemia symptoms present: None reported Recent Labs Units 10/14/23 1440 06/30/23 0000 08/02/22 0000 HEMOGLOBIN A1C - [facility] % 10.4* -- -- HEMOGLOBIN, [id number] LAB -- 11.3 10.3* Recent Labs Units 11/12/23 0716 10/14/23 1440 07/12/23 1058 ESTIMATED GLOMERULAR FILTRATION RATE - [facility] mL/min -- >90 >90 EGFR-OU[facility]IDE LAB mL/Min/1.73 sqm 103.9 -- -- CREATININE - [facility] mg/dL -- 0.7 0.6 CREATININE-OUTSIDE LAB mg/dL 0.72 -- -- HYPERTENSION: Patient on ACEi/ARB: no, not using BP Readings from Last 3 Encounters: 10/14/23 104/62 09/17/23 112/68 07/29/23 166/68 Blood pressure at goal: yes HYPERLIPIDEMIA: Patient is taking moderate or high intensity statin: yes HEALTH MAINTENANCE REVIEW: Health Maintenance Due Topic Date Due Depression Monitoring 08/03/2020 Colorectal Cancer Screening Never done Hepatitis [...] to N/V even at very lowest doses - hx of alcoholism- drink of choice is wine or vodka BG Readings - Blood sugars uncontrolled. TIR has improved now to 5%. Average BG still remains over 300. Again discussed with patient the importance of getting BG controlled, but patient's hesitation and anxiety surrounding low blood sugars is a barrier that we are struggling to overcome. She notes in visit today that she was very surprised that the hospital would give her 7-8 units per meal during her most recent stay. She notes that she had gotten a dose of insulin not much before she was discharged, and her sugar was ~150 when she got home and she was planning on doing laundry and other clean up around the house, and so she ate something for fear of going low. Denies any instances of hypoglycemia in the hospital with how they were managing her sugar. Medications - Reviewed current regimen, patient is not adherent to regimen. Admits that she has notbeen following the recommended doses of insulin that were provided at MTM visit last time. Will notmake changes to doses today, and encouraged patient to be adherent to regimen suggested by MTM . Diet, Exercise, Lifestyle - encouraged patient to check out ADA Website to look at some ideas for meals. Patient is agreeable to SMBG with libredaily. Patient aware to contact clinic if any hypoglycemia before next visit. MEDICATION CHANGES: no change Diabetic Medications: Semglee 32 units once daily Fiasp 4 units with meals + 1:40 over 180 FOLLOW UP: Return to clinic in 3 weeks 12/22/2023 Elizabeth Rosario RPh Clinical Pharmacist - Switching Clerk [facility] 12/04/2023, 10:33 AM documented in this encounter Plan of Treatment Upcoming Encounters Date Type Department Care Team (Late st Contact Info) Description 12/05/2023 11:00 AM EDT Office Visit [facility], [place] [address] [facility], [place] [phone] Krystin Graves MD [address] [facility] [address] 12/22/2023 1:00 PM EDT Telemedicine Pharmacy, [place] [address] [place] [address] [facility] [address] [place] [address] 01/16/2024 3:00 PM EDT Office Visit [facility], [place] [address] [facility], [place] [phone] Krystin Graves MD [address] [place] [address] 03/16/2024 3:00 PM EDT Office Visit Hepatology, [facility] [address] [facility] [place] [id number] Vee Juarez MD [address] [facility] [place] [address] 03/18/2024 10:00 AM EDT Telemedicine Psychiatry Yudith Gonzales [address] [place] [phone] Woodrow Jang DO [address] [facility] [place] [address] Health Maintenance Due Date Last Done Comments [...] uncontrolled documented in this encounter Care Teams Venipuncturist Relationship Specialty Start Date End Date Krystin Graves MD [address] [place] [address] PCP - General Family Medicine 10/21/22 documented as of this encounter
--- NOTE | 2023-12-28 10:40 | Emergency Department Note ---
Impression & Plan Alcohol withdrawal, Suicidal ideation, Alcohol abuse, Vomiting, Tachycardia ED Provider Note NAME: ARIC GRANT AGE: 48 SEX: F : 1975 ARRIVES VIA: Ambulance INFORMANT: [Patient] ED PROVIDER(S): [Randell Shetty MD] CHIEF COMPLAINT: Alcohol withdrawal HISTORY OF PRESENT ILLNESS: The patient is a 48-year-old female with a history of alcoholism. She has been drinking about 1/5 of vodka daily. She has been drinking for 3 weeks. Her last drink was around 12 or so hours ago, she is already starting to go through withdrawal. She is shaky and vomiting. The patient states that she is suicidal, she wants to because of her situation. The patient was in our hospital last month, she was discharged on December 02. At that time, she was to follow-up with AA, she did not want any inpatient psychiatric care. The patient states that she started drinking alcohol about 1 week after discharge. She is, at this time, interested in psychiatric care. PMHx/PSHx/Social Hx: See Below PHYSICAL EXAM: GENERAL: Patient is in mild distress, generalized extremity tremor noted HEENT: No acute trauma, normocephalic atraumatic, mucous membranes moist, no nasal congestion. NECK: No stridor, no adenopathy, no meningismus, trachea is midline. LUNGS: Clear to auscultation bilaterally, no wheeze, no rhonchi, breath sounds equal. HEART: Tachycardic, regular rhythm, no murmurs. ABDOMEN: Soft, nontender, no peritonitis. EXTREMITIES: No cyanosis, full range of motion of all the joints without pain or difficulty. NEUROLOGIC: Oriented x 3, no acute motor or sensory deficits, no focal weakness. SKIN: No jaundice, no diaphoresis. Psychiatric: Cooperative, voluntary, admits to suicidal ideation. DIFFERENTIAL DIAGNOSIS: Alcohol withdrawal, alcohol abuse, electrolyte imbalance, dysrhythmia, anemia, dehydration, suicidality, among others. EMERGENCY DEPARTMENT PROCEDURES: MEDICAL DECISION MAKING: There is no leukocytosis or concerning anemia. There is a normal platelet count. No worrisome coagulopathy. Renal panel testing shows a low sodium. There is an anion gap, likely from her alcohol abuse. Glucose was somewhat high in the upper 200s. Lactic acid level was slightly elevated, likely from dehydration. A repeat lactic value shows that the lactic acidosis is clearing. There were elevated liver enzymes consistent with her alcohol abuse. Patient appeared to be in a euthyroid state. ECG shows a sinus rhythm, no obvious ischemia. Cardiac enzyme testing x 1 is not consistent with acute cardiac injury. Alcohol level returned elevated at 81, consistent with her history of alcohol abuse. COVID test returned negative. Chest film did not show pneumonia or CHF. On exam, patient was tachycardic, she was quite shaky and a bit agitated. Patient was given IV Valium, 10 mg in total. She was given a 500 cc saline bolus. She was given IV saline with multivitamins, thiamine and folate. She received IV Phenergan for nausea. The patient is doing better with the treatment provided here in the ED. She is going to require a medical hospital stay and then a psychiatry consult. Once her alcohol withdrawal is controlled, she would certainly benefit from psychiatric intervention, possibly a psychiatric admission. I did speak with case management as well as psychiatry case management. I spoke with the patient. The on-call hospitalist was consulted. Prior/Outside records/notes reviewed: Discharge summary note from 12/03/2023 discussing her hospitalization for alcohol withdrawal and the plan outpatient. ECG per my interpretation: Indication was withdrawal. The ECG shows a sinus rhythm with a rate of 91. There is baseline artifact. There is no acute ST elevation, no PVCs. The QTc is 469. Continuous Cardiac Monitoring per my interpretation: An order was placed for continuous cardiac monitoring. The monitor shows a rate of 92 with normal sinus rhythm. Imaging/x-ray results per my interpretation: Chest x-ray does not show CHF or pneumonia. There may be some atelectasis at the left base. Chronic Medical/Social conditions affecting care: History of alcoholism Care/Management discussed with: Case management, the on-call hospitalist Level of care consideration(s): After review of the information above and other included data: --I believe the patient requires escalation of care to admission Critical Care Note: I have personally spent 44 minutes of critical care time in the direct management of this patient. This includes bedside care, interpretation of diagnostic studies, and testing, discussion with consultants, patient, and family members, and other required patient management activities. This 44 minutes is in excess of all separately billable procedures. DISPOSITION: Admission with psychiatry consult Past Med/Surg History Problem List Tachycardia (Acute) Vomiting (Acute) Alcohol abuse (Acute) Suicidal ideation (Acute) Alcohol withdrawal (Acute) Diabetes type 2, controlled Alcohol use disorder, moderate, dependence Alcohol abuse (Acute) Mood disorder (Acute) History of suicidal ideation MDD (major depressive disorder), recurrent, in partial remission Suicidal ideation (Acute) Alcohol withdrawal (Acute) DKA (diabetic ketoacidosis) (Acute) History of asthma History of alcohol abuse History of recent fall Alcohol dependence (Acute) Alcohol withdrawal (Acute) Hypophosphatemia DKA (diabetic ketoacidosis) (Acute) Depression with suicidal ideation DKA, type 1 Polycythemia Hypercalcemia Metabolic acidosis due to diabetes mellitus Splenomegaly Hepatic steatosis Anxiety (Acute) Alcoholic hepatitis Nausea and vomiting (Acute) Elevated LFTs (Acute) Depression (Acute) Asthma Neutropenia Gram-positive cocci bacteremia Abscess Metabolic encephalopathy REG (acute kidney injury) Vomiting Elevated LFTs Weakness (Acute) Acute pancreatitis (Acute) REG (acute kidney injury) (Acute) DKA (diabetic ketoacidoses) (Acute) Coffee ground emesis (Acute) Hyperglycemia Alcoholism (Acute) Discharge planning issues MRSA (methicillin resistant Staphylococcus aureus) carrier Acute renal failure (ARF) Electrolyte and fluid disorder Anemia Acute upper GI hemorrhage Urinary tract infection Hypophosphatemia (Acute) Hypokalemia (Acute) Lactic acidosis (Acute) Hypoalbuminemia (Acute) Edema Elevated INR (Acute) Acute liver failure (Acute) Coagulopathy Elevated LFTs (Acute) Tachycardia (Acute) Alcohol abuse (Acute) Asthma Cirrhosis (Acute) GERD (gastroesophageal reflux disease) Abnormal TSH Leukopenia DVT prophylaxis Diabetes Alcohol abuse (Acute) Tremor (Acute) Leukocytopenia, unspecified Thrombocytopenia Anemia Diabetes Pancytopenia Diabetes mellitus type 1 Anxiety (Chronic) Alcohol abuse (Acute) Medical History Acute alcoholic pancreatitis Suicidal ideation Hypophosphatemia Hypomagnesemia Metabolic acidosis Thrush Alcoholic intoxication Thrombocytopenia Alcohol withdrawal Acute alcoholic hepatitis Acidosis, metabolic Acute pancreatitis Electrolyte abnormality DVT prophylaxis Alcohol withdrawal Asthma Surgical History History of dental surgery wisdom teeth History of esophagogastroduodenoscopy (EGD) Family History Father Prediabetes Grandfather (Paternal) Diabetes Mother Hypertension MVP (mitral valve prolapse) Social History Smoking Status: Former smoker Tobacco Type: Cigarettes Age Quit Using Tobacco: 39; packs per day: 1; Second Hand Exposure: No; Do You Dip or Chew Tobacco: No; Hx Alcohol Use: Yes Alcohol type: hard liquor Alcohol type Comment: 4 glasses wine daily Hx Substance Use: No Preferred Language: Ukrainian Communication Ability: Effective Visual Impairment: No Limitations Fermentologist Required: No Beliefs That Will Affect Care: None marital status: marital status details: Single parent Current Living Situation: Alone Current Living Situation Comment: daughter current occupational status: unemployed How many Children do You have: 1 Feels Safe at Home: Yes Safety Concerns: Feels Safe At This Time Childhood Exposure to Second-Hand Smoke: No Gender Identity: Female Assistive Devices: Glasses Allergies Allergies Allergy/AdvReac Type Severity Reaction Status Date / Time doxycycline Allergy Severe Muscle Pain Verified 11/26/23 08:30 theophylline AdvReac Intermediate VERTIGO Verified 11/26/23 08:30 Home Meds Home Medications Medication Instructions Recorded Confirmed fluticasone 250 mcg-salmeterol 50 1 inh inhalation QAM 02/27/19 12/01/23 mcg/dose blistr powdr for inhalation (Advair Diskus) albuterol sulfate 90 mcg/actuation 2 puff inhalation UD PRN Shortness 07/23/19 12/01/23 aerosol inhaler (Ventolin HFA) Of Breath ascorbic acid (vitamin C) 500 mg 500 mg PO DAILY 04/05/21 12/01/23 tablet,extended release (Vitamin C ER) buspirone 10 mg tablet 20 mg PO TID 04/22/22 12/01/23 lorazepam 0.5 mg tablet 0.5 mg PO TID PRN Anxiety 09/09/23 12/01/23 escitalopram oxalate 10 mg tablet 10 mg PO QAM 11/26/23 12/01/23 insulin aspart 4 - 5 unit subcut TID 11/26/23 12/01/23 (niacinamide)(U-100) 100 unit/mL(3 mL) subcutaneous pen (Fiasp FlexTouch U-100 Insulin) insulin glargine-yfgn 100 unit/mL 32 unit subcut QAM 11/26/23 12/01/23 (3 mL) subcutaneous pen (Semglee (insulin glargine-yfgn) Pen) pen needle, diabetic 32 gauge x 11/26/23 12/01/23 5/32" (BD Ultra-Fine Gertrude Pen Needle) trazodone 50 mg tablet 50 mg PO QPM 11/26/23 12/01/23 iwjiztzwnfhu-Kn-anix-minerals 1 tab PO DAILY 12/01/23 12/01/23 zinc acetate 50 mg (zinc) capsule 50 mg PO DAILY 12/01/23 12/01/23 Previous Rx's Medication Instructions Recorded folic acid 1 mg tablet 1 mg PO QAM #30 tabs 12/03/23 sodium di- and 1 tab PO BID #10 tabs 12/03/23 monophosphate-potassium phos monobasic 250 mg tablet (Phospha Neutral) thiamine HCl (vitamin B1) 100 mg 100 mg PO QAM #30 tabs 12/03/23 tablet Results & Data (ED) Vital Signs Vital Signs - 24 hr 12/28/23 11:04 12/28/23 11:06 12/28/23 11:32 Temperature 36.9 C Temperature Source Oral Pulse Rate 83 92 H Pulse Rate [Apical] 81 Pulse Rhythm Regular Respiratory Rate 18 20 21 Respiratory Effort / Characteristics Non-Labored Spontaneous Respiratory Depth Normal Respiratory Pattern Regular Blood Pressure 154/131 H Blood Pressure [Right Arm] 94/46 L Blood Pressure Mean 138 Blood Pressure Mean [Right Arm] 62 Pulse Oximetry 97 96 96 Oxygen Delivery Method Room Air Room Air Room Air Sepsis Recent Fever Within 48 Hours No Sepsis New/Unexplained Change in Mental Status No Sepsis Action Taken by Nursing No Action Required Home Medications Current Medication List: was personally reviewed by me Laboratory Data Attestation: I reviewed the patient's lab results. 12/28/23 10:35 12/28/23 10:35 Lab Results 12/28/23 12/28/23 12/28/23 Range/Units 10:35 11:18 11:56 WBC 4.28 L (4.8-10.8) K/ul RBC 4.75 (4.20-5.40) M/uL Hgb 14.8 (12.0-16.0) g/dl Hct 42.3 (37.0-47.0) % MCV 89.1 (80.0-100.0) fL MCH 31.2 (25.0-34.0) pg MCHC 35.0 (32.0-36.0) g/dL RDW Std Deviation 44.5 (36.4-46.3) fL RDW Coeff of Suzanne 13.6 (11.5-14.5) % Plt Count 145 (130-400) K/uL MPV 9.7 (9.4-12.4) fL Immature Gran % (Auto) 0.2 % Neut % (Auto) 78.3 % Lymph % (Auto) 16.1 % Meagher % (Auto) 4.0 % Eos % (Auto) 0.2 % Baso % (Auto) 1.2 % Neut # (Auto) 3.35 (1.40-6.50) K/uL Lymph # (Auto) 0.69 L (1.20-3.40) K/uL Meagher # (Auto) 0.17 (0.11-0.59) K/uL Eos # (Auto) 0.01 (0.00-0.50) K/uL Baso # (Auto) 0.05 (0.00-0.20) K/uL Immature Gran # (Auto) 0.01 (0.01-0.20) K/uL PT 12.3 H (9.0-12.0) Seconds INR 1.1 (0.9-1.1) APTT 28 (21-31) Seconds PTT Ratio 1.0 Sodium 131 L (136-145) mmol/L Potassium 4.3 (3.5-5.1) mmol/L Chloride 89 L (98-107) mmol/L Carbon Dioxide 14 L (21-32) mmol/L Anion Gap 28 H (3-11) BUN 18 (6-23) mg/dl Creatinine 0.76 (0.6-1.2) mg/dl Est Cr Clr Drug Dosing 91.2 ml/min Est GFR ( Amer) 107.5 ml/min Est GFR (Non-Af Amer) 92.8 ml/min BUN/Creatinine Ratio 23.7 H (10-20) Glucose 280 H (70-99(Fasting)) mg/dl Lactate 2.5 H* (0.4-2.0) mmol/L Calcium 10.2 (8.6-10.3) mg/dl Phosphorus 3.7 (2.5-4.9) mg/dl Magnesium 1.8 (1.7-2.4) mg/dl Total Bilirubin 1.2 H (0.2-1.0) mg/dl AST 205 H (13-39) U/L ALT 147 H (7-52) U/L Alkaline Phosphatase 270 H (34-104) U/L Troponin I High Sens 2.6 (0-14) pg/ml Total Protein 7.9 (6.0-8.3) gm/dl Albumin 4.7 (3.4-5.0) gm/dl Globulin 3.2 (2.5-4.0) gm/dl Albumin/Globulin Ratio 1.5 (0.9-2) TSH 3.295 (0.300-4.500) uIu/ml Ethyl Alcohol mg/dL 81.7 H (<10.0) mg/dl SARS-CoV-2, RNA, NAAT NEGATIVE (NEGATIVE) Administered Medications Discontinued Medications Diazepam (Diazepam 5 Mg/Ml 10ml Vial) 5 mg IV NOW STA Stop: 12/28/23 10:32 Last Admin: 12/28/23 10:42 Dose: 5 mg Documented By: JACQUELIN Diazepam (Diazepam 5 Mg/Ml 10ml Vial) 5 mg IV NOW STA Stop: 12/28/23 11:27 Last Admin: 12/28/23 11:37 Dose: 5 mg Documented By: CHAPO Gabapentin (Gabapentin 600 Mg Tab) 1,200 mg PO NOW ONE Stop: 12/28/23 14:46 Last Admin: 12/28/23 15:41 Dose: 1,200 mg Documented By: CHRIS Promethazine HCl (Phenergan) 12.5 mg in 50.5 mls @ 202 mls/hr IV NOW STA Stop: 12/28/23 10:45 Last Infusion: 12/28/23 11:37 Dose: Infused Documented By: Admin: 12/28/23 10:42 Dose: 202 mls/hr Documented By: JACQUELIN Sodium Chloride (Nss) 500 mls @ 999 mls/hr IV .Q31M ARMANI Stop: 12/28/23 11:15 Last Infusion: 12/28/23 11:37 Dose: Infused Documented By: Admin: 12/28/23 10:42 Dose: 999 mls/hr Documented By: JACQUELIN Multivitamins 10 ml/ Thiamine HCl 100 mg/ Folic Acid 1 mg/Sodium Chloride 1,011.2 mls @ 500 mls/hr IV .Q2H2M ONE Stop: 12/28/23 12:32 Last Infusion: 12/28/23 13:44 Dose: Infused Documented By: Admin: 12/28/23 11:38 Dose: 500 mls/hr Documented By: CHAPO Lorazepam (Lorazepam 1 Mg/1 Ml Syr Ed Inj Use) 2 mg IV ONE STA Stop: 12/28/23 14:12 Last Admin: 12/28/23 14:17 Dose: 2 mg Documented By: CHAPO Ondansetron HCl (Ondansetron Inj 2 Mg/Ml 2 Ml Vial) Confirm Administered Dose 4 mg .ROUTE .STK-MED ONE Stop: 12/28/23 12:32 Last Admin: 12/28/23 12:39 Dose: 4 mg Documented By: CHAPO Imaging Data Radiologist's Impression: Chest X-Ray 12/28/23 10:31 XR chest 1V portable CLINICAL HISTORY: etoh TECHNIQUE: Single frontal radiograph of the chest was obtained. Comparison: Comparison is made to chest radiograph 06/30/2023 FINDINGS: No lines and tubes are seen. The cardiomediastinal silhouette is normal. The lungs are clear. No evidence of pleural effusion or pneumothorax. IMPRESSION: No acute chest disease. ACT 112: Negative or not required by law. Electronically signed by: Sidney Maya M.D. 12/28/2023 11:10 AM Discharge Plan Visit Data Chief Complaint: Alcohol Withdrawal Stated Complaint: MHID, ALCOHOL WITHDRAWL ED Provider: Randell Shetty Discharge Problem: Alcohol withdrawal, Suicidal ideation, Alcohol abuse, Vomiting, Tachycardia Patient Disposition: Admitted As Inpatient Condition: Fair Discharge Instructions Interventions: ED Discharge Assessment Last Done: 12/28/23 14:23 Discharge Problem: Alcohol withdrawal Qualifiers: Complication of substance-induced condition: with unspecified complication Q ualified Code(s): F10.939 - Alcohol use, unspecified with withdrawal, unspecified Vomiting Qualifiers: Vomiting type: unspecified Nausea presence: with nausea Qualified Code(s): R 11.2 - Nausea with vomiting, unspecified
[2023-12-28] MEDS: SODIUM CHLORIDE 0.9% 500 ML IV SCH (10:42)
[2023-12-28] MEDS: diazePAM 5 MG/ML 10ML VIAL IV STA ×2 (10:42→11:37)
[2023-12-28] MEDS: PROMETHAZINE 12.5 MG/50.5 ML BAG IV STA (10:42)
--- NOTE | 2023-12-28 11:12 | XRay Report ---
XR chest 1V portable CLINICAL HISTORY: etoh TECHNIQUE: Single frontal radiograph of the chest was obtained. Comparison: Comparison is made to chest radiograph 06/30/2023 FINDINGS: No lines and tubes are seen. The cardiomediastinal silhouette is normal. The lungs are clear. No evid ence of pleural effusion or pneumothorax. IMPRESSION: No acute chest disease. ACT 112: Negative or not required by law. Electronically signed by: Sidney Maya M.D. 12/28/2023 11:10 AM
[2023-12-28 11:22] LABS: Basophils # (auto) 0.05 K/uL (0.00-0.20); Basophils % (auto) 1.2 %; Eosinophils # (auto) 0.01 K/uL (0.00-0.50); Eosinophils % (auto) 0.2 %; Hematocrit (blood only) 42.3 % (37.0-47.0); Hemoglobin 14.8 g/dl (12.0-16.0); Immature Granulocytes # (auto) 0.01 K/uL (0.01-0.20); Immature Granulocytes % (auto) 0.2 %; Lymphocytes # (auto) 0.69 K/uL (1.20-3.40); Lymphocytes % (auto) 16.1 %; Mean Corpuscular Hemoglobin 31.2 pg (25.0-34.0); Mean Corpuscular Volume 89.1 fL (80.0-100.0); Mean Platelet Volume 9.7 fL (9.4-12.4); Monocytes # (auto) 0.17 K/uL (0.11-0.59); Neutrophils # (auto) 3.35 K/uL (1.40-6.50); Neutrophils % (auto) 78.3 %; Platelet Count 145 K/uL (130-400); RDW Coefficient of Variation 13.6 % (11.5-14.5); RDW Standard Deviation 44.5 fL (36.4-46.3); Red Blood Count 4.75 M/uL (4.20-5.40); White Blood Count 4.28 K/ul (4.8-10.8)
[2023-12-28 11:35] LABS: Albumin Globulin Ratio 1.5 (0.9-2); Albumin Level 4.7 gm/dl (3.4-5.0); BUN Creatinine Ratio 23.7 (10-20); Bilirubin,Total 1.2 mg/dl (0.2-1.0); Calcium 10.2 mg/dl (8.6-10.3); Creatinine Clr Calc Pharmacy 91.2 ml/min; Est GFR (African American) 107.5 ml/min; Est GFR (Non-African American) 92.8 ml/min; Globulin 3.2 gm/dl (2.5-4.0); Magnesium 1.8 mg/dl (1.7-2.4); Potassium 4.3 mmol/L (3.5-5.1); Total Protein 7.9 gm/dl (6.0-8.3)
[2023-12-28] MEDS: MULTI-VITAMIN INFUSION 10 ML, THIAMINE HCL 100 MG, FOLIC ACID 1 MG in SODIUM CHLORIDE 0... IV ONE (11:38)
[2023-12-28 11:41] LABS: Troponin I High Sensitivity 2.6 pg/ml (0-14)
[2023-12-28 11:50] LABS: Thyroid Stimulating Hormone 3.295 uIu/ml (0.300-4.500)
[2023-12-28 11:55] LABS: INR 1.1 (0.9-1.1); Partial Thromboplastin Time 28 Seconds (21-31); Prothrombin Time 12.3 Seconds (9.0-12.0)
[2023-12-28] MEDS: ONDANSETRON INJ 2 MG/ML 2 ML VIAL ONE (12:39)
[2023-12-28 12:43] LABS: Phosphorus 3.7 mg/dl (2.5-4.9)
--- NOTE | 2023-12-28 13:03 | History & Physical Report ---
Date of Service December 28, 2023 Assessment & Plan (1) Alcohol withdrawal: Plan: Significant history of alcohol use disorder and alcohol dependence Recurrent hospital admission with withdrawal symptoms and also suicidal ideation Continues to use alcohol and last drink was about 12 to 16 hours ago Has significant withdrawal symptoms with tachycardia and tremors without any confusion Will admit to telemetry unit on gabapentin and Ativan protocol Symptomatic management of nausea and vomiting Patient wants to go to inpatient rehab at this time (2) Alcohol use disorder, moderate, dependence: (3) Depression with suicidal ideation: Plan: Has had suicidal ideation before Was evaluated by psychiatrist in the past Will also get a psychiatric evaluation this time Strongly advised to go to inpatient rehab following discharge (4) MDD (major depressive disorder), recurrent, in partial remission: (5) Diabetes type 2, controlled: Plan: Has diabetes type 2 Admitted before with DKA likely contributed by use of alcohol Will monitor blood sugar Hemoglobin A1c was elevated at 9.3 on 12/02/2023 Will put her on sliding scale insulin coverage (6) Asthma: Plan: Controlled asthma No wheezing and no shortness of breath at rest and saturating normally on room air (7) Alcoholic hepatitis: Plan: LFTs are abnormal secondary to use of alcohol Other significant medical conditions as mentioned in the history and physical remained stable Plan DVT prophylaxis Subcu heparin CODE STATUS Full History of Present Illness Chief Complaint: Nausea,vomiting and generalized shakes and tremors with suicidal ideation Primary Care Provider: Krystin Graves MD She is a 48-year-old female with significant past medical history of alcoholism with recurrent hospital admission, recurrent suicidal ideation, type 2 diabetes, moderate persistent asthma, panic disorder and depression apparently has been drinking for the last 3 weeks following discharge from the hospital. Her last drink was about 12 to 16 hours ago and presented to ER with another suicidal ideation this morning, extensive tremors involving the extremities and also nausea vomiting. Denies any chest pain, palpitation or shortness of breath. Denies any numbness and or tingling in the extremities. No headache and or blurred vision. She strongly feels that she needs to go to inpatient rehab and she is going do that this time. Allergies Allergy/AdvReac Type Severity Reaction Status Date / Time doxycycline Allergy Severe Muscle Pain Verified 11/26/23 08:30 theophylline AdvReac Intermediate VERTIGO Verified 11/26/23 08:30 Home Medications Medication Instructions Recorded Confirmed Type fluticasone 250 mcg-salmeterol 50 1 inh inhalation QAM 02/27/19 12/01/23 History mcg/dose blistr powdr for inhalation (Advair Diskus) albuterol sulfate 90 mcg/actuation 2 puff inhalation UD PRN Shortness 07/23/19 12/01/23 History aerosol inhaler (Ventolin HFA) Of Breath ascorbic acid (vitamin C) 500 mg 500 mg PO DAILY 04/05/21 12/01/23 History tablet,extended release (Vitamin C ER) buspirone 10 mg tablet 20 mg PO TID 04/22/22 12/01/23 History lorazepam 0.5 mg tablet 0.5 mg PO TID PRN Anxiety 09/09/23 12/01/23 History escitalopram oxalate 10 mg tablet 10 mg PO QAM 11/26/23 12/01/23 History insulin aspart 4 - 5 unit subcut TID 11/26/23 12/01/23 History (niacinamide)(U-100) 100 unit/mL(3 mL) subcutaneous pen (Fiasp FlexTouch U-100 Insulin) insulin glargine-yfgn 100 unit/mL 32 unit subcut QAM 11/26/23 12/01/23 History (3 mL) subcutaneous pen (Semglee (insulin glargine-yfgn) Pen) pen needle, diabetic 32 gauge x 11/26/23 12/01/23 History 5/32" (BD Ultra-Fine Gertrude Pen Needle) trazodone 50 mg tablet 50 mg PO QPM 11/26/23 12/01/23 History slqmqudwcpzh-Ad-jcjb-minerals 1 tab PO DAILY 12/01/23 12/01/23 History zinc acetate 50 mg (zinc) capsule 50 mg PO DAILY 12/01/23 12/01/23 History folic acid 1 mg tablet 1 mg PO QAM #30 tabs 12/03/23 Rx sodium di- and 1 tab PO BID #10 tabs 12/03/23 Rx monophosphate-potassium phos monobasic 250 mg tablet (Phospha Neutral) thiamine HCl (vitamin B1) 100 mg 100 mg PO QAM #30 tabs 12/03/23 Rx tablet Past Med/Surg History Problem List Diabetes type 2, controlled Alcohol use disorder, moderate, dependence Alcohol abuse (Acute) Mood disorder (Acute) History of suicidal ideation MDD (major depressive disorder), recurrent, in partial remission Suicidal ideation (Acute) Alcohol withdrawal (Acute) DKA (diabetic ketoacidosis) (Acute) History of asthma History of alcohol abuse History of recent fall Alcohol dependence (Acute) Alcohol withdrawal (Acute) Hypophosphatemia DKA (diabetic ketoacidosis) (Acute) Depression with suicidal ideation DKA, type 1 Polycythemia Hypercalcemia Metabolic acidosis due to diabetes mellitus Splenomegaly Hepatic steatosis Anxiety (Acute) Alcoholic hepatitis Nausea and vomiting (Acute) Elevated LFTs (Acute) Depression (Acute) Asthma Neutropenia Gram-positive cocci bacteremia Abscess Metabolic encephalopathy REG (acute kidney injury) Vomiting Elevated LFTs Weakness (Acute) Acute pancreatitis (Acute) REG (acute kidney injury) (Acute) DKA (diabetic ketoacidoses) (Acute) Coffee ground emesis (Acute) Hyperglycemia Alcoholism (Acute) Discharge planning issues MRSA (methicillin resistant Staphylococcus aureus) carrier Acute renal failure (ARF) Electrolyte and fluid disorder Anemia Acute upper GI hemorrhage Urinary tract infection Hypophosphatemia (Acute) Hypokalemia (Acute) Lactic acidosis (Acute) Hypoalbuminemia (Acute) Edema Elevated INR (Acute) Acute liver failure (Acute) Coagulopathy Elevated LFTs (Acute) Tachycardia (Acute) Alcohol abuse (Acute) Asthma Cirrhosis (Acute) GERD (gastroesophageal reflux disease) Abnormal TSH Leukopenia DVT prophylaxis Diabetes Alcohol abuse (Acute) Tremor (Acute) Leukocytopenia, unspecified Thrombocytopenia Anemia Diabetes Pancytopenia Diabetes mellitus type 1 Anxiety (Chronic) Alcohol abuse (Acute) Medical History Acute alcoholic pancreatitis Suicidal ideation Hypophosphatemia Hypomagnesemia Metabolic acidosis Thrush Alcoholic intoxication Thrombocytopenia Alcohol withdrawal Acute alcoholic hepatitis Acidosis, metabolic Acute pancreatitis Electrolyte abnormality DVT prophylaxis Alcohol withdrawal Asthma Surgical History History of dental surgery wisdom teeth History of esophagogastroduodenoscopy (EGD) Family History Father Prediabetes Grandfather (Paternal) Diabetes Mother Hypertension MVP (mitral valve prolapse) Social History Smoking Status: Former smoker Tobacco Type: Cigarettes Age Quit Using Tobacco: 39; packs per day: 1; Second Hand Exposure: No; Do You Dip or Chew Tobacco: No; Hx Alcohol Use: Yes Alcohol type: hard liquor Alcohol type Comment: 4 glasses wine daily Hx Substance Use: No Preferred Language: Trinidadian Communication Ability: Effective Visual Impairment: No Limitations Pin Chaser Required: No Beliefs That Will Affect Care: None marital status: marital status details: Single parent Current Living Situation: Alone Current Living Situation Comment: daughter current occupational status: unemployed How many Children do You have: 1 Feels Safe at Home: Yes Childhood Exposure to Second-Hand Smoke: No Gender Identity: Female Assistive Devices: None Review of Systems Review of Systems: All systems reviewed and unremarkable except as noted below Physical Exam Physical Exam: Lying in bed with acute anxiety and distress with tremors involving the upper extremities Constitutional: + ill appearing and average body habitus Eyes: PERRL, conjunctivae normal, anicteric sclerae ENMT: external ear and nose normal, oropharynx normal Neck: trachea midline, no thyromegaly Respiratory: no respiratory distress Auscultation: lungs clear to auscultation bilaterally Cardiovascular: Rate/Rhythm: regular rate, regular rhythm and + tachycardic Heart Sounds: normal S1 and normal S2; no murmur Extremities: no edema Gastrointestinal (Abdomen): Inspection/Auscultation: normal bowel sounds; abdomen not distended Percussion/Palpation: abdomen soft; abdomen nontender Musculoskeletal: No acute arthritis involving any of the joint Neurologic: normal touch/pain/proprioception and moves all extremities; no focal motor deficits and not confused Has significant tremors involving the upper extremities at rest and also with outstretched hands Psychiatric: Mood: + anxious mood Lymphatic: no cervical or axillary lymphadenopathy Results & Data Results & Data Vital Signs (Past 12 Hours) Vital Signs Temp Pulse Pulse Resp BP BP Pulse Ox 12/28/23 12:36 101 H 12/28/23 11:32 81 21 94/46 L 96 12/28/23 11:06 36.9 C 92 H 20 154/131 H 96 12/28/23 11:04 83 18 97 O2 Del Method 12/28/23 12:36 12/28/23 11:32 Room Air 12/28/23 11:06 Room Air 12/28/23 11:04 Room Air Laboratory Results Short CBC 12/28/23 Range/Units 10:35 WBC 4.28 L (4.8-10.8) K/ul Hgb 14.8 (12.0-16.0) g/dl Hct 42.3 (37.0-47.0) % Plt Count 145 (130-400) K/uL BMP 12/28/23 10:35 Sodium 131 L Potassium 4.3 Chloride 89 L Carbon Dioxide 14 L BUN 18 Creatinine 0.76 Glucose 280 H Calcium 10.2 Liver Function 12/28/23 Range/Units 10:35 Total Bilirubin 1.2 H (0.2-1.0) mg/dl AST 205 H (13-39) U/L ALT 147 H (7-52) U/L Alkaline Phosphatase 270 H (34-104) U/L Albumin 4.7 (3.4-5.0) gm/dl (6) Asthma Asthma severity: unspecified severity Asthma persistence: unspecified Asthma complication type: unspecified Qualified Code(s): J45.909 - Unspecified asthma, uncomplicated
[2023-12-28] MEDS: LORazepam 1 MG/1 ML SYR ED Inj Use IV STA (14:17)
[2023-12-28] MEDS ORDERED: ONDANSETRON INJ 2 MG/ML 2 ML VIAL IV PRN (14:45)
[2023-12-28] MEDS ORDERED: LORazepam 1 MG in SYRINGE 0.5 ML IV PRN (14:45)
[2023-12-28] MEDS ORDERED: LORazepam 3 MG in SYRINGE 1.5 ML IV PRN (14:45)
[2023-12-28] MEDS ORDERED: LORazepam 2 MG in SYRINGE 1 ML IV PRN (14:45)
[2023-12-28] MEDS ORDERED: Ativan IV Alcohol Withdrawal--Active Protocol IV PRN (14:45)
[2023-12-28] MEDS ORDERED: GABAPENTIN 1200MG ALCOHOL WITHDRAWAL LOAD PO STA (14:45)
[2023-12-28] MEDS: GABAPENTIN 600 MG TAB PO ONE (15:41)
[2023-12-28] MEDS: INSULIN ASPART PER UNIT CHARGE SC SCH (17:10)
[2023-12-28] MEDS: traZODone HCL 50 MG TAB PO SCH (21:07)
[2023-12-28] MEDS: GABAPENTIN 600 MG TAB PO SCH (21:07)
[2023-12-28 23:06] LABS: Appearance Urine Clear (Clear); Bacteria Urine Automated None Seen (None Seen); Bilirubin Urine Negative (Negative); Blood Urine Negative (Negative); Cast Urine Automated 0-2 /lpf (0-2); Color Urine Dark Yellow; Epithelial Cell Urine Auto 0-2 /hpf (0-2); Glucose Urine UA Negative (Negative); Ketones Urine 4+ (Negative); Leukocyte Esterase Urine 1+ (Negative); Nitrite Urine Negative (Negative); Protein Urine 1+ (Negative); RBC Urine Automated 0-2 /hpf (0-2); Specific Gravity Urine 1.023 (1.000-1.030); Urobilinogen Urine Negative (Negative); WBC Urine Automated 21-50 /hpf (0-5); pH Urine 6.5 (4.5-7.5)
[2023-12-28 23:27] LABS: Amphetamines+Metham, Urine Neg (Neg); Barbiturates, Urine Neg (Neg); Benzodiazepine, Urine Pos (Neg); Cocaine, Urine Neg (Neg); Fentanyl, Urine Neg (Neg); MDMA (Ecstacy), Urine Neg (Neg); Marijuana, Urine Neg (Neg); Methadone, Urine Neg (Neg); Opiate, Urine Neg (Neg); Phencyclidine, Urine Neg (Neg)
--- NOTE | 2023-12-29 06:21 | Electrocardiogram Report ---
Test Reason : Blood Pressure : / mmHG Vent. Rate : 091 BPM Atrial Rate : 091 BPM P-R Int : 150 ms QRS Dur : 076 ms QT Int : 382 ms P-R-T Axes : 046 023 030 degrees QTc Int : 469 ms Poor data quality, interpretation may be adversely affected Sinus rhythm Low voltage QRS Borderline ECG When compared with ECG of 01-DEC-2023 17:30, HR has decreased Confirmed by Amaury Cagle ([id number]) on 12/29/2023 6:20:51 AM Referred By: Confirmed By:Amaury Cagle
[2023-12-29] MEDS ORDERED: ALBUTEROL HFA 8 GM INHALER INH PRN (06:23)
[2023-12-29] MEDS ORDERED: ALBUT/IPRATROP 3MG/0.5MG NEB 3 ML VIAL NEB PRN (06:23)
[2023-12-29] MEDS: busPIRone 5 MG TAB PO SCH (08:23)
[2023-12-29] MEDS: THIAMINE HCL 100 MG TAB PO SCH (08:23)
[2023-12-29] MEDS: FOLIC ACID 1 MG TAB PO SCH (08:23)
[2023-12-29] MEDS: ESCITALOPRAM OXALATE 20 MG TAB PO SCH (08:23)
[2023-12-29] MEDS: FLUTICASONE/VILANTEROL 200/25MCG 14 PUFFS/INHALER INH SCH (08:24)
[2023-12-29 08:40] LABS: Basophils # (auto) 0.02 K/uL (0.00-0.20); Basophils % (auto) 0.8 %; Eosinophils # (auto) 0.06 K/uL (0.00-0.50); Eosinophils % (auto) 2.4 %; Hematocrit (blood only) 39.1 % (37.0-47.0); Hemoglobin 13.4 g/dl (12.0-16.0); Lymphocytes # (auto) 0.84 K/uL (1.20-3.40); Mean Corpuscular Hemoglobin 31.2 pg (25.0-34.0); Mean Corpuscular Hgb Conc 34.3 g/dL (32.0-36.0); Mean Corpuscular Volume 90.9 fL (80.0-100.0); Mean Platelet Volume 9.7 fL (9.4-12.4); Monocytes # (auto) 0.19 K/uL (0.11-0.59); Monocytes % (auto) 7.7 %; Neutrophils # (auto) 1.36 K/uL (1.40-6.50); Neutrophils % (auto) 55.1 %; Platelet Count 77 K/uL (130-400); RDW Coefficient of Variation 13.6 % (11.5-14.5); RDW Standard Deviation 44.9 fL (36.4-46.3); White Blood Count 2.47 K/ul (4.8-10.8)
[2023-12-29] MEDS: LANTUS PER UNIT CHARGE SQ SCH (08:45)
[2023-12-29 09:29] LABS: Albumin Level 4.1 gm/dl (3.4-5.0); Bilirubin Direct 0.5 mg/dl (0-0.2); Bilirubin,Total 1.5 mg/dl (0.2-1.0); Calcium 9.6 mg/dl (8.6-10.3); Est GFR (African American) 123.6 ml/min; Est GFR (Non-African American) 106.6 ml/min; Magnesium 1.9 mg/dl (1.7-2.4); Phosphorus 1.6 mg/dl (2.5-4.9); Potassium 4.2 mmol/L (3.5-5.1); Total Protein 6.7 gm/dl (6.0-8.3)
[2023-12-29] MEDS: GABAPENTIN 600 MG TAB PO SCH (13:05)
[2023-12-29] MEDS: diazePAM 5 MG TABLET PO SCH (13:06)
--- NOTE | 2023-12-29 14:13 | Hospitalist Progress Note ---
Date of Service December 29, 2023 Assessment & Plan (1) Alcohol withdrawal: (2) Alcohol use disorder, moderate, dependence: Plan: Significant history of alcohol use disorder and alcohol dependence Recurrent hospital admission with withdrawal symptoms and also suicidal ideation Continues to use alcohol and last drink was about 12 to 16 hours ago prior to admission Has significant withdrawal symptoms with tachycardia and tremors without any confusion on gabapentin and Ativan protocol Symptomatic management of nausea and vomiting Valium added as well Discussed with patient regarding restarting naltrexone. She is agreeable. Patient to follow-up with PCP to get restarted on it. (3) Depression with suicidal ideation: (4) MDD (major depressive disorder), recurrent, in partial remission: Plan: Patient had expressed suicidal ideation on presentation Evaluated by psychiatric liaison; no suicidal ideation today. (5) Diabetes type 2, controlled: Plan: Has diabetes type 2 Admitted before with DKA likely contributed by use of alcohol Will monitor blood sugar Hemoglobin A1c was elevated at 9.3 on 12/02/2023 Will put her on sliding scale insulin coverage (6) Asthma: Plan: Controlled asthma No wheezing and no shortness of breath at rest and saturating normally on room air (7) Alcoholic hepatitis: Plan: LFTs are abnormal secondary to use of alcohol Plan DVT prophylaxis Subcu heparin CODE STATUS Network Security Analyst spent evaluating patient, direct bedside care, chart review, placing orders, interpretation of diagnostic studies, discussion with consultants, patient, and family members, as well as other required patient management activities is 50 minutes Please note the above document was generated using voice recognition software. It may contain grammatical, syntax or spelling errors. Any formal questions or concerns about the content, text or information contained within the body of this dictation should be directly addressed to the provider for clarification Admission and Anticipated Discharge Date Admission Date: December 28, 2023 Subjective Patient seen and examined at bedside. She reports mild tremors and anxiety. No other complaints No significant event overnight Review of Systems Review of Systems: All systems reviewed & are unremarkable except as noted in Subjective Physical Exam Physical Exam: Constitutional: WD/WN, vitals as above, NAD, sitting up in bed, pleasant, conversing easily Respiratory: normal respiratory effort, lungs clear to auscultation, no wheeze, rales, rhonchi. Normal insp/exp effort, no accessory muscle use Cardiovascular: RRR, no murmur, no edema Vessels: no JVD or carotid bruit Chest: normal inspection of chest Abdomen: normal bowel sounds, soft, nontender, no hepatosplenomegaly Musculoskeletal: no cyanosis or clubbing, extremities motor strength 5/5 Skin: no rashes, warm and dry normal turgor Neurologic: PERRL, EOMI, accommodation nl, no face palsy, no dysarthria CN's II- XI intact bilaterally and moves all extremities Psychiatric: A+Ox3, euthymic affect Results & Data Results & Data Vital Signs (Past 12 Hours) Vital Signs Temp Pulse Pulse Resp BP BP Pulse Ox 12/29/23 14:04 36.9 C 88 17 108/71 95 12/29/23 10:38 36.5 C 85 17 117/78 96 12/29/23 07:14 70 12/29/23 07:01 36.8 C 74 18 113/76 97 12/29/23 02:55 36.7 C 76 16 123/79 97 O2 Del Method 12/29/23 14:04 Room Air 12/29/23 10:38 Room Air 12/29/23 07:14 12/29/23 07:01 Room Air 12/29/23 02:55 Room Air (6) Asthma Asthma severity: unspecified severity Asthma persistence: unspecified Asthma complication type: unspecified Qualified Code(s): J45.909 - Unspecified asthma, uncomplicated
[2023-12-29] MEDS: LOPERAMIDE HCL 2 MG CAP PO PRN (16:44)
[2023-12-30] MEDS: traMADol HCL 50 MG TABLET PO STA (07:28)
[2023-12-30 07:37] LABS: Basophils # (auto) 0.01 K/uL (0.00-0.20); Basophils % (auto) 0.4 %; Eosinophils # (auto) 0.07 K/uL (0.00-0.50); Hematocrit (blood only) 38.4 % (37.0-47.0); Hemoglobin 13.1 g/dl (12.0-16.0); Immature Granulocytes # (auto) 0.01 K/uL (0.01-0.20); Immature Granulocytes % (auto) 0.4 %; Mean Corpuscular Hemoglobin 31.3 pg (25.0-34.0); Mean Corpuscular Hgb Conc 34.1 g/dL (32.0-36.0); Mean Corpuscular Volume 91.6 fL (80.0-100.0); Mean Platelet Volume 10.1 fL (9.4-12.4); Monocytes # (auto) 0.18 K/uL (0.11-0.59); Monocytes % (auto) 7.7 %; Neutrophils # (auto) 1.36 K/uL (1.40-6.50); Neutrophils % (auto) 58.5 %; Platelet Count 68 K/uL (130-400); RDW Coefficient of Variation 13.4 % (11.5-14.5); RDW Standard Deviation 45.5 fL (36.4-46.3); Red Blood Count 4.19 M/uL (4.20-5.40); White Blood Count 2.33 K/ul (4.8-10.8)
[2023-12-30 07:53] LABS: BUN Creatinine Ratio 15.9 (10-20); Bilirubin Direct 0.3 mg/dl (0-0.2); Bilirubin,Total 0.8 mg/dl (0.2-1.0); Calcium 9.6 mg/dl (8.6-10.3); Creatinine Clr Calc Pharmacy 101.6 ml/min; Est GFR (African American) 122.9 ml/min; Est GFR (Non-African American) 106.1 ml/min; Magnesium 1.9 mg/dl (1.7-2.4); Potassium 3.7 mmol/L (3.5-5.1); Total Protein 6.6 gm/dl (6.0-8.3)
--- NOTE | 2023-12-30 14:15 | Discharge Summary ---
Date of Service December 30, 2023 Admission HPI Per Admitting Provider She is a 48-year-old female with significant past medical history of alcoholism with recurrent hospital admission, recurrent suicidal ideation, type 2 diabetes, moderate persistent asthma, panic disorder and depression apparently has been drinking for the last 3 weeks following discharge from the hospital. Her last drink was about 12 to 16 hours ago and presented to ER with another suicidal ideation this morning, extensive tremors involving the extremities and also nausea vomiting. Denies any chest pain, palpitation or shortness of breath. Denies any numbness and or tingling in the extremities. No headache and or blurred vision. She strongly feels that she needs to go to inpatient rehab and she is going do that this time. Admission Exam Per Admitting Provider Physical Exam: Lying in bed with acute anxiety and distress with tremors involving the upper extremities Constitutional: + ill appearing and average body habitus Eyes: PERRL, conjunctivae normal, anicteric sclerae ENMT: external ear and nose normal, oropharynx normal Neck: trachea midline, no thyromegaly Respiratory: no respiratory distress Auscultation: lungs clear to auscultation bilaterally Cardiovascular: Rate/Rhythm: regular rate, regular rhythm and + tachycardic Heart Sounds: normal S1 and normal S2; no murmur Extremities: no edema Gastrointestinal (Abdomen): Inspection/Auscultation: normal bowel sounds; abdomen not distended Percussion/Palpation: abdomen soft; abdomen nontender Musculoskeletal: No acute arthritis involving any of the joint Neurologic: normal touch/pain/proprioception and moves all extremities; no focal motor deficits and not confused Has significant tremors involving the upper extremities at rest and also with outstretched hands Psychiatric: Mood: + anxious mood Lymphatic: no cervical or axillary lymphadenopathy Principal Diagnosis Alcohol use disorder Alcohol withdrawal Discharge Exam Constitutional: WD/WN, vitals as above, NAD, sitting up in bed, pleasant, conversing easily Respiratory: normal respiratory effort, lungs clear to auscultation, no wheeze, rales, rhonchi. Normal insp/exp effort, no accessory muscle use Cardiovascular: RRR, no murmur, no edema Vessels: no JVD or carotid bruit Chest: normal inspection of chest Abdomen: normal bowel sounds, soft, nontender, no hepatosplenomegaly Musculoskeletal: no cyanosis or clubbing, extremities motor strength 5/5 Skin: no rashes, warm and dry normal turgor Neurologic: PERRL, EOMI, accommodation nl, no face palsy, no dysarthria CN's II- XI intact bilaterally and moves all extremities Psychiatric: A+Ox3, euthymic affect Discharge Data Allergies Allergy/AdvReac Type Severity Reaction Status Date / Time doxycycline Allergy Severe Muscle Pain Verified 11/26/23 08:30 theophylline AdvReac Intermediate VERTIGO Verified 11/26/23 08:30 Consultations 12/28/23 12:14 ED Decision to Admit Stat 12/28/23 15:08 Consult Behavioral Health Liaison Routine Hospital Course (1) Alcohol withdrawal: (2) Alcohol use disorder, moderate, dependence: Significant history of alcohol use disorder and alcohol dependence Recurrent hospital admission with withdrawal symptoms and also suicidal ideation Continues to use alcohol and last drink was about 12 to 16 hours ago prior to admission Has significant withdrawal symptoms with tachycardia and tremors without any confusion During the hospitalization, patient was treated for alcohol withdrawal protocol with Ativan, Valium and gabapentin. She reported significant improvement in alcohol withdrawal symptoms. She did not have any tremors, hallucinations or anxiety at the time of the discharge Patient to follow-up with her primary care doctor and discussed regarding restarting naltrexone. (3) Depression with suicidal ideation: (4) MDD (major depressive disorder), recurrent, in partial remission: Patient had expressed suicidal ideation on presentation Evaluated by psychiatric liaison; no suicidal ideation reported yesterday/today. (5) Pancytopenia: Pancytopenia noted on blood work Likely secondary to alcohol abuse Evaluated by hematology last admission Continue to monitor Plan Please note the above document was generated using voice recognition software. It may contain grammatical, syntax or spelling errors. Any formal questions or concerns about the content, text or information contained within the body of this dictation should be directly addressed to the provider for clarification Total Time Total Time Spent Total Time Spent (In Minutes): 45 Total Time Includes: Examination of the Patient, Discharge Planning, Medication Reconciliation, Communication With Other Providers and Other Discharge Plan Discharge Items Patient Disposition: Home - Self-Care Reason For Visit: etoh withdrawal Discharge Diagnosis: Alcohol withdrawal Condition on Discharge: Fair Activity: Resume your previous activity Non-emergency contact: Primary Care Provider Call non-emergency contact if: you have any medication questions and your symptoms worsen Follow-up/Referrals: Krystin Graves MD [Primary Care Provider] - (Date & Time 01/06/2024 2:00 PM Provider Krystin Graves MD Department [facility] ) Diet: Regular Addtl Attending Provider Instructions: You were admitted to the hospital due to alcohol withdrawal. Please follow-up with outpatient rehab program. An appointment will be set up with your primary care doctor. Please follow-up and discuss regarding starting naltrexone for alcohol use disorder. No medication changes has been done to your regimen Pending Studies at Discharge: No Stand-Alone Forms: My [facility] Funds, Work/School Release, Smoking Cessation Medications and DC Order Prescriptions: Continued fluticasone propion-salmeterol [Advair Diskus] 250-50 mcg/dose blister with device 1 inh inhalation QAM albuterol sulfate [Ventolin HFA] 90 mcg/actuation Hfa Aerosol Inhaler 2 puff INHALATION UD PRN (Reason: Shortness Of Breath) Rx Instructions: Inhale 2 puffs by mouth 4 times daily PRN for SOB/wheezing. buspirone 10 mg tablet 20 mg PO TID Rx Instructions: Take 2 Tablets by mouth in the morning and 2 Tablets at noon and 2 Tablets before bedtime. ascorbic acid (vitamin C) [Vitamin C] 500 mg Tablet Extended Release 500 mg PO DAILY trazodone 50 mg tablet 50 mg PO QPM escitalopram oxalate 10 mg tablet 10 mg PO QAM (DME) pen needle, diabetic [BD Ultra-Fine Gertrude Pen Needle] 32 gauge x 5/32" needle MISCELLANEOUS Rx Instructions: Use to inject insulin 4 times daily. Fiasp FlexTouch U-100 Insulin 100 unit/mL (3 mL) insulin pen 4 - 5 unit SUBCUT TID Rx Instructions: Inject 5 units under the skin before breakfast, 4 units with lunch, and 4 units with dinner. insulin glargine-yfgn [Semglee(insulin glarg-yfgn)Pen] 100 unit/mL (3 mL) insulin pen 32 unit SUBCUT QAM lorazepam 0.5 mg tablet 0.5 mg PO TID PRN (Reason: Anxiety) zinc acetate 50 mg (zinc) Capsule 50 mg PO DAILY cfpvjikbcyib-To-hveb-minerals Tablet 1 tab PO DAILY thiamine HCl (vitamin B1) 100 mg Tablet 100 mg PO QAM Qty: 30 0RF folic acid 1 mg Tablet 1 mg PO QAM Qty: 30 0RF Phospha 250 Neutral 250 mg tablet 1 tab PO BID Qty: 10 0RF Discharge Orders: Discharge Order (Routine); Ordered 12/30/23 Ordered By: Dajuan Ceja Admission Data Admit Date/Time: 12/28/23 12:18 Attending Provider: Dajuan Ceja Admit Provider: Brett Vasquez Primary Care Provider: Krystin Graves Other Providers: Brett Vasquez Other Interventions: Discharge Summary Assessment (RN) Last Done: 12/30/23 10:38
[2023-12-30] MEDS ORDERED: GABAPENTIN 600 MG TAB PO SCH (18:00)
[2023-12-30 22:46] LABS: 7-Aminoclonaz, Confirm NEGATIVE ng/mL (<25); Hydro-Alp Ur, GC/MS NEGATIVE ng/mL (<25); Hydroxyethylflurazepam, Conf NEGATIVE ng/mL (<50); Hydroxymidazolam Ur, GC/MS NEGATIVE ng/mL (<50); Hydroxytriazolam NEGATIVE ng/mL (<50); Lorazepam, Ur GC/MS 323 ng/mL (<50); Nordiazepam, Confirm 57 ng/mL (<50); Oxazepam Ur, GC/MS NEGATIVE ng/mL (<50); Temazepam, Confirm 95 ng/mL (<50)
[2024-01-01] MEDS ORDERED: GABAPENTIN 600 MG TAB PO SCH (06:00)
== END 2023-12-30 12:45 | disposition home or self-care (01) | DRG 897 ==
LOC: ED 10:20 → SUATTDRO 12:18 → 2S 12:18

== ENCOUNTER 2024-02-17 13:20 | Inpatient (IN) ==
[2024-02-17] MEDS: SODIUM CHLORIDE 0.9% 500 ML IV ONE (14:37)
[2024-02-17] MEDS: ONDANSETRON INJ 2 MG/ML 2 ML VIAL IV STA (14:37)
[2024-02-17] MEDS: MULTI-VITAMIN INFUSION 10 ML, THIAMINE HCL 100 MG, FOLIC ACID 1 MG in SODIUM CHLORIDE 0... IV ONE (14:51)
--- NOTE | 2024-02-17 14:57 | Emergency Department Note ---
Impression & Plan Alcohol abuse, Alcohol withdrawal, Tachycardia, Acute hyperglycemia, Acute hyponatremia ED Provider Note NAME: ARIC GRANT AGE: 48 SEX: F : 1975 ARRIVES VIA: Ambulance INFORMANT: [Patient] ED PROVIDER(S): [Randell Shetty MD] CHIEF COMPLAINT: Alcohol withdrawal HISTORY OF PRESENT ILLNESS: The patient is a 48-year-old female who is an alcoholic. She typically drinks at least 1 box of wine daily. Her last drink was last night. This morning, she feels on edge, shaky, she has dry heaves and has a hard time thinking. She is going through alcohol withdrawal. The patient has never had DTs, she has never had seizures. She is here asking for detox as well as eventual rehab. The patient has not had diarrhea, no chest pain. No shortness of breath. She has not fallen or suffered significant trauma. PMHx/PSHx/Social Hx: See Below PHYSICAL EXAM: GENERAL: Patient is in no acute distress. HEENT: No acute trauma, normocephalic atraumatic, mucous membranes moist, no nasal congestion. NECK: No stridor, no adenopathy, no meningismus, trachea is midline. LUNGS: Clear to auscultation bilaterally, no wheeze, no rhonchi, breath sounds equal. HEART: Tachycardic, regular rhythm, no murmurs. ABDOMEN: Soft, nontender, no peritonitis. EXTREMITIES: No cyanosis, full range of motion of all the joints without pain or difficulty. NEUROLOGIC: Oriented x 3, no acute motor or sensory deficits, no focal weakness. Slight extremity tremor noted. SKIN: No jaundice, no diaphoresis. DIFFERENTIAL DIAGNOSIS: Alcohol withdrawal, alcohol abuse, dehydration, electrolyte imbalance, among others. EMERGENCY DEPARTMENT PROCEDURES: MEDICAL DECISION MAKING: There is no leukocytosis or concerning anemia. There is a normal platelet count. INR slightly elevated at 1.2. VBG did not show acidosis. Renal panel testing showed a low sodium and high blood sugar. There was an anion gap present with a lower CO2. Liver enzymes were elevated, likely from her alcohol abuse. The patient appeared to be in a euthyroid state. ECG showed a sinus tachycardia, no ischemia. Cardiac enzyme testing x 1 was not consistent with acute cardiac injury. Urinalysis showed some dehydration and potential infection. Aspirin, Tylenol and alcohol levels were undetectable. On exam, patient was tachycardic and slightly tremulous. The patient received IV saline, 500 cc. She was given IV Zofran for nausea. She received IV saline with multivitamins, thiamine and folate. She was given 2 mg of IV Ativan. Patient seems to be doing well with the treatment provided. She is in need of a hospital stay and further care. She is withdrawing from alcohol and is hyperglycemic. I do not think that she is in DKA, I suspect her electrolyte changes are from her alcohol withdrawal rather than diabetic ketoacidosis. The patient understands the findings and the need for a hospital stay. I did speak with case management. The on-call hospitalist was consulted. Prior/Outside records/notes reviewed: Today's EMS notes describing her presentation and transport to this hospital. ECG per my interpretation: Indication was tachycardia. The ECG shows a sinus tachycardia with a rate of 114. There is no acute ST elevation, no PVCs. The QTc is 460. Continuous Cardiac Monitoring per my interpretation: An order was placed for continuous cardiac monitoring. The monitor shows a rate of 122 with sinus tachycardia. Imaging/x-ray results per my interpretation: Chronic Medical/Social conditions affecting care: History of alcoholism Care/Management discussed with: Case management, the on-call hospitalist. Level of care consideration(s): After review of the information above and other included data: --I believe the patient requires escalation of care to admission Critical Care Note: I have personally spent 43 minutes of critical care time in the direct management of this patient. This includes bedside care, interpretation of diagnostic studies, and testing, discussion with consultants, patient, and family members, and other required patient management activities. This 43 minutes is in excess of all separately billable procedures. DISPOSITION: Admission Past Med/Surg History Problem List Acute hyponatremia (Acute) Acute hyperglycemia (Acute) Tachycardia (Acute) Alcohol withdrawal (Acute) Alcohol abuse (Acute) Hyponatremia Hyperglycemia (Acute) Alcohol abuse (Acute) Vomiting (Acute) Alcohol abuse (Acute) Suicidal ideation (Acute) Alcohol withdrawal (Acute) Diabetes type 2, controlled Alcohol use disorder, moderate, dependence Alcohol abuse (Acute) Mood disorder (Acute) History of suicidal ideation MDD (major depressive disorder), recurrent, in partial remission Suicidal ideation (Acute) Alcohol withdrawal (Acute) DKA (diabetic ketoacidosis) (Acute) History of asthma History of alcohol abuse History of recent fall Alcohol dependence (Acute) Alcohol withdrawal (Acute) Hypophosphatemia DKA (diabetic ketoacidosis) (Acute) Depression with suicidal ideation DKA, type 1 Polycythemia Hypercalcemia Metabolic acidosis due to diabetes mellitus Splenomegaly Hepatic steatosis Anxiety (Acute) Alcoholic hepatitis Nausea and vomiting (Acute) Elevated LFTs (Acute) Depression (Acute) Asthma Neutropenia Gram-positive cocci bacteremia Abscess Metabolic encephalopathy REG (acute kidney injury) Vomiting Elevated LFTs Weakness (Acute) Acute pancreatitis (Acute) REG (acute kidney injury) (Acute) DKA (diabetic ketoacidoses) (Acute) Coffee ground emesis (Acute) Hyperglycemia Alcoholism (Acute) Discharge planning issues MRSA (methicillin resistant Staphylococcus aureus) carrier Acute renal failure (ARF) Electrolyte and fluid disorder Anemia Acute upper GI hemorrhage Urinary tract infection Hypophosphatemia (Acute) Hypokalemia (Acute) Lactic acidosis (Acute) Hypoalbuminemia (Acute) Edema Elevated INR (Acute) Acute liver failure (Acute) Coagulopathy Elevated LFTs (Acute) Tachycardia (Acute) Alcohol abuse (Acute) Asthma Cirrhosis (Acute) GERD (gastroesophageal reflux disease) Abnormal TSH Leukopenia DVT prophylaxis Diabetes Alcohol abuse (Acute) Tremor (Acute) Leukocytopenia, unspecified Thrombocytopenia Anemia Diabetes Pancytopenia Anxiety (Chronic) Alcohol abuse (Acute) Medical History Transaminitis DM (diabetes mellitus), type 2 Alcoholic cirrhosis of liver without ascites Tachycardia Acute alcoholic pancreatitis Suicidal ideation Hypophosphatemia Hypomagnesemia Metabolic acidosis Thrush Alcoholic intoxication Thrombocytopenia Alcohol withdrawal Acute alcoholic hepatitis Acidosis, metabolic Acute pancreatitis Electrolyte abnormality DVT prophylaxis Alcohol withdrawal Asthma Surgical History History of dental surgery wisdom teeth History of esophagogastroduodenoscopy (EGD) Family History Father Prediabetes Grandfather (Paternal) Diabetes Mother Hypertension MVP (mitral valve prolapse) Social History Smoking Status: Former smoker Tobacco Type: Cigarettes Age Quit Using Tobacco: 39; packs per day: 1; Second Hand Exposure: No; Do You Dip or Chew Tobacco: No; Hx Alcohol Use: Yes Alcohol type: hard liquor Alcohol type Comment: 4 glasses wine daily Hx Substance Use: No Preferred Language: Macanese Communication Ability: Effective Visual Impairment: No Limitations Assistant Purchasing Manager Required: No Beliefs That Will Affect Care: None marital status: marital status details: Single parent Current Living Situation: Alone Current Living Situation Comment: daughter current occupational status: unemployed How many Children do You have: 1 Feels Safe at Home: Yes Childhood Exposure to Second-Hand Smoke: No Gender Identity: Female Assistive Devices: Glasses Allergies Allergies Allergy/AdvReac Type Severity Reaction Status Date / Time doxycycline Allergy Severe Muscle Pain Verified 11/26/23 08:30 theophylline AdvReac Intermediate VERTIGO Verified 11/26/23 08:30 Home Meds Home Medications Medication Instructions Recorded Confirmed fluticasone 250 mcg-salmeterol 50 1 inh inhalation QAM 02/27/19 02/17/24 mcg/dose blistr powdr for inhalation (Advair Diskus) albuterol sulfate 90 mcg/actuation 2 puff inhalation UD PRN Shortness 07/23/19 02/17/24 aerosol inhaler (Ventolin HFA) Of Breath buspirone 10 mg tablet 20 mg PO TID 04/22/22 02/17/24 lorazepam 0.5 mg tablet 0.5 mg PO TID PRN Anxiety 09/09/23 02/17/24 escitalopram oxalate 10 mg tablet 10 mg PO QAM 11/26/23 02/17/24 insulin aspart 4 - 5 unit subcut TID 11/26/23 02/17/24 (niacinamide)(U-100) 100 unit/mL(3 mL) subcutaneous pen (Fiasp FlexTouch U-100 Insulin) insulin glargine-yfgn 100 unit/mL 32 unit subcut QAM 11/26/23 02/17/24 (3 mL) subcutaneous pen (Semglee (insulin glargine-yfgn) Pen) pen needle, diabetic 32 gauge x 11/26/23 02/17/24 532" (BD Ultra-Fine Gertrude Pen Needle) trazodone 50 mg tablet 50 mg PO QPM 11/26/23 02/17/24 tyzdwyukutqb-Gf-krnq-minerals 1 tab PO DAILY 12/01/23 02/17/24 zinc acetate 50 mg (zinc) capsule 50 mg PO DAILY 12/01/23 02/17/24 Results & Data (ED) Vital Signs Vital Signs - 24 hr 02/17/24 13:38 02/17/24 13:38 02/17/24 13:44 Temperature 36.6 C 36.6 C Temperature Source Oral Oral Pulse Rate 120 H 122 H Pulse Rate [Apical] 120 H Pulse Rate from SpO2 Sensor Pulse Rhythm Regular Pulse Rhythm [Apical] Regular Pulse Strength Normal Pulse Strength [Apical] Normal Respiratory Rate 20 20 Respiratory Effort / Characteristics Non-Labored Spontaneous Non-Labored Spontaneous Respiratory Depth Normal Normal Respiratory Pattern Regular Regular Blood Pressure 133/89 Blood Pressure [Right Arm] 133/89 Blood Pressure Mean 103 Blood Pressure Mean [Right Arm] 103 Blood Pressure Position Semi-fowlers Blood Pressure Position [Right Arm] Semi-fowlers Pulse Oximetry 96 96 Oxygen Delivery Method Room Air Room Air Sepsis Recent Fever Within 48 Hours No Sepsis New/Unexplained Change in Mental Status N/A Sepsis Action Taken by Nursing No Action Required 02/17/24 14:00 02/17/24 14:00 02/17/24 14:30 Temperature Temperature Source Pulse Rate 116 H 114 H Pulse Rate [Apical] Pulse Rate from SpO2 Sensor Pulse Rhythm Pulse Rhythm [Apical] Pulse Strength Pulse Strength [Apical] Respiratory Rate 16 17 Respiratory Effort / Characteristics Respiratory Depth Respiratory Pattern Blood Pressure 120/88 Blood Pressure [Right Arm] Blood Pressure Mean 96 Blood Pressure Mean [Right Arm] Blood Pressure Position Blood Pressure Position [Right Arm] Pulse Oximetry Oxygen Delivery Method Sepsis Recent Fever Within 48 Hours Sepsis New/Unexplained Change in Mental Status Sepsis Action Taken by Nursing 02/17/24 14:37 02/17/24 14:57 02/17/24 15:00 Temperature Temperature Source Pulse Rate 107 H 101 H Pulse Rate [Apical] Pulse Rate from SpO2 Sensor 101 H Pulse Rhythm Regular Pulse Rhythm [Apical] Pulse Strength Pulse Strength [Apical] Respiratory Rate 20 16 Respiratory Effort / Characteristics Respiratory Depth Respiratory Pattern Blood Pressure 126/75 Blood Pressure [Right Arm] Blood Pressure Mean 90 Blood Pressure Mean [Right Arm] Blood Pressure Position Blood Pressure Position [Right Arm] Pulse Oximetry 96 95 Oxygen Delivery Method Room Air Sepsis Recent Fever Within 48 Hours Sepsis New/Unexplained Change in Mental Status Sepsis Action Taken by Nursing 02/17/24 15:09 02/17/24 15:14 02/17/24 15:21 Temperature 37.2 C Temperature Source Oral Pulse Rate 107 H 106 H Pulse Rate [Apical] 103 H Pulse Rate from SpO2 Sensor 107 H 105 H Pulse Rhythm Pulse Rhythm [Apical] Pulse Strength Pulse Strength [Apical] Respiratory Rate 17 22 16 Respiratory Effort / Characteristics Non-Labored Respiratory Depth Normal Respiratory Pattern Blood Pressure Blood Pressure [Right Arm] 126/75 Blood Pressure Mean Blood Pressure Mean [Right Arm] 92 Blood Pressure Position Blood Pressure Position [Right Arm] Pulse Oximetry 96 97 98 Oxygen Delivery Method Room Air Sepsis Recent Fever Within 48 Hours Sepsis New/Unexplained Change in Mental Status Sepsis Action Taken by Nursing 02/17/24 15:31 02/17/24 15:33 Temperature Temperature Source Pulse Rate 93 H Pulse Rate [Apical] Pulse Rate from SpO2 Sensor 95 H Pulse Rhythm Pulse Rhythm [Apical] Pulse Strength Pulse Strength [Apical] Respiratory Rate 14 Respiratory Effort / Characteristics Respiratory Depth Respiratory Pattern Blood Pressure 125/85 Blood Pressure [Right Arm] Blood Pressure Mean 95 Blood Pressure Mean [Right Arm] Blood Pressure Position Blood Pressure Position [Right Arm] Pulse Oximetry 97 Oxygen Delivery Method Sepsis Recent Fever Within 48 Hours Sepsis New/Unexplained Change in Mental Status Sepsis Action Taken by Care Home Medications Current Medication List: was personally reviewed by me Laboratory Data Attestation: I reviewed the patient's lab results. 02/17/24 14:36 02/17/24 18:37 Lab Results 02/17/24 02/17/24 Range/Units 14:30 14:36 WBC 5.87 (4.8-10.8) K/ul RBC 4.67 (4.20-5.40) M/uL Hgb 14.4 (12.0-16.0) g/dl Hct 40.4 (37.0-47.0) % MCV 86.5 (80.0-100.0) fL MCH 30.8 (25.0-34.0) pg MCHC 35.6 (32.0-36.0) g/dL RDW Std Deviation 40.9 (36.4-46.3) fL RDW Coeff of Suzanne 13.2 (11.5-14.5) % Plt Count 163 (130-400) K/uL MPV 10.0 (9.4-12.4) fL Immature Gran % (Auto) 0.2 % Neut % (Auto) 83.1 % Lymph % (Auto) 10.2 % [place] % (Auto) 5.8 % Eos % (Auto) 0.0 % Baso % (Auto) 0.7 % Neut # (Auto) 4.88 (1.40-6.50) K/uL Lymph # (Auto) 0.60 L (1.20-3.40) K/uL [place] # (Auto) 0.34 (0.11-0.59) K/uL Eos # (Auto) 0.00 (0.00-0.50) K/uL Baso # (Auto) 0.04 (0.00-0.20) K/uL Immature Gran # (Auto) 0.01 (0.01-0.20) K/uL PT 12.6 H (9.0-12.0) Seconds INR 1.2 H (0.9-1.1) APTT 27 (21-31) Seconds PTT Ratio 1.0 Sodium 126 L (136-145) mmol/L Potassium 4.2 (3.5-5.1) mmol/L Chloride 86 L (98-107) mmol/L Carbon Dioxide 15 L (21-32) mmol/L Anion Gap 25 H (3-11) BUN 15 (6-23) mg/dl Creatinine 0.76 (0.6-1.2) mg/dl Est Cr Clr Drug Dosing 82.2 ml/min Est GFR ( Amer) 107.5 ml/min Est GFR (Non-Af Amer) 92.8 ml/min BUN/Creatinine Ratio 19.7 (10-20) Glucose 352 H* (70-99(Fasting)) mg/dl Osmolality 289 (280-300) mOsm/kg Calcium 10.1 (8.6-10.3) mg/dl Magnesium 2.0 (1.7-2.4) mg/dl Total Bilirubin 1.4 H (0.2-1.0) mg/dl AST 156 H (13-39) U/L ALT 138 H (7-52) U/L Alkaline Phosphatase 248 H (34-104) U/L Troponin I High Sens 4.9 (0-14) pg/ml Total Protein 7.2 (6.0-8.3) gm/dl Albumin 4.5 (3.4-5.0) gm/dl Globulin 2.7 (2.5-4.0) gm/dl Albumin/Globulin Ratio 1.7 (0.9-2) TSH 3.971 (0.300-4.500) uIu/ml Salicylates < 3.0 L (3.0-30) mg/dl Acetaminophen < 3 L (10-30) ug/ml Ethyl Alcohol mg/dL < 10.0 (<10.0) mg/dl Administered Medications Sodium Chloride (Nss) 1,000 mls @ 60 mls/hr IV .[id number] ARMANI Stop: 02/19/24 02:04 Last Admin: 02/17/24 17:51 Dose: 60 mls/hr Documented By: GITA Insulin Aspart (Insulin Aspart Per Unit Charge) 0 units SC ACHS ARMANI Stop: 03/18/24 17:44 Last Admin: 02/17/24 21:40 Dose: Not Given Documented By: Admin: 02/17/24 17:46 Dose: 5 units Documented By: GITA Co-signed By: JAYDEN Discontinued Medications Buspirone HCl (Buspirone 5 Mg Tab) 20 mg PO ONE ONE Stop: 02/17/24 17:00 Last Admin: 02/17/24 17:28 Dose: 20 mg Documented By: GITA Gabapentin (Gabapentin 600 Mg Tab) 1,200 mg PO NOW ONE Stop: 02/17/24 16:18 Last Admin: 02/17/24 16:34 Dose: 1,200 mg Documented By: GITA Sodium Chloride (Nss) 500 mls @ 999 mls/hr IV .Q31M ONE Stop: 02/17/24 14:32 Last Infusion: 02/17/24 15:18 Dose: Infused Documented By: Admin: 02/17/24 14:37 Dose: 999 mls/hr Documented By: JOSE CRUZ Multivitamins 10 ml/ Thiamine HCl 100 mg/ Folic Acid 1 mg/Sodium Chloride 1,011.2 mls @ 500 mls/hr IV .Q2H2M ONE Stop: 02/17/24 16:03 Last Infusion: 02/17/24 17:05 Dose: Infused Documented By: Admin: 02/17/24 14:51 Dose: 500 mls/hr Documented By: JOSE CRUZ Insulin Glargine (Lantus Per Unit Charge) 20 units SC 1730 ARMANI Stop: 02/17/24 21:00 Last Admin: 02/17/24 17:47 Dose: 20 units Documented By: GITA Co-signed By: JAYDEN Lorazepam (Lorazepam 1 Mg/1 Ml Syr Ed Inj Use) 2 mg IV ONE STA Stop: 02/17/24 15:01 Last Admin: 02/17/24 15:23 Dose: 2 mg Documented By: GITA Ondansetron HCl (Ondansetron Inj 2 Mg/Ml 2 Ml Vial) 4 mg IV NOW STA Stop: 02/17/24 14:03 Last Admin: 02/17/24 14:37 Dose: 4 mg Documented By: CAW Discharge Plan Visit Data Chief Complaint: Alcohol Withdrawal Stated Complaint: ALCOHOL DETOX ED Provider: Randell Shetty Discharge Problem: Alcohol abuse, Alcohol withdrawal, Tachycardia, Acute hyperglycemia, Acute hyponatremia Patient Disposition: Admitted As Inpatient Condition: Serious Discharge Instructions Interventions: ED Discharge Assessment Last Done: 02/17/24 20:47 Discharge Problem: Alcohol withdrawal Qualifiers: Complication of substance-induced condition: with unspecified complication Q ualified Code(s): F10.939 - Alcohol use, unspecified with withdrawal, unspecified
[2024-02-17 15:18] LABS: Acetaminophen < 3 ug/ml (10-30); Salicylate < 3.0 mg/dl (3.0-30)
[2024-02-17] MEDS: LORazepam 1 MG/1 ML SYR ED Inj Use IV STA (15:23)
[2024-02-17 15:27] LABS: Albumin Globulin Ratio 1.7 (0.9-2); Albumin Level 4.5 gm/dl (3.4-5.0); BUN Creatinine Ratio 19.7 (10-20); Bilirubin,Total 1.4 mg/dl (0.2-1.0); Calcium 10.1 mg/dl (8.6-10.3); Creatinine Clr Calc Pharmacy 82.2 ml/min; Est GFR (African American) 107.5 ml/min; Est GFR (Non-African American) 92.8 ml/min; Globulin 2.7 gm/dl (2.5-4.0); Potassium 4.2 mmol/L (3.5-5.1); Total Protein 7.2 gm/dl (6.0-8.3); Troponin I High Sensitivity 4.9 pg/ml (0-14)
[2024-02-17 15:36] LABS: Basophils # (auto) 0.04 K/uL (0.00-0.20); Basophils % (auto) 0.7 %; Hematocrit (blood only) 40.4 % (37.0-47.0); Hemoglobin 14.4 g/dl (12.0-16.0); Immature Granulocytes # (auto) 0.01 K/uL (0.01-0.20); Immature Granulocytes % (auto) 0.2 %; Lymphocytes % (auto) 10.2 %; Mean Corpuscular Hemoglobin 30.8 pg (25.0-34.0); Mean Corpuscular Hgb Conc 35.6 g/dL (32.0-36.0); Mean Corpuscular Volume 86.5 fL (80.0-100.0); Monocytes # (auto) 0.34 K/uL (0.11-0.59); Monocytes % (auto) 5.8 %; Neutrophils # (auto) 4.88 K/uL (1.40-6.50); Neutrophils % (auto) 83.1 %; Platelet Count 163 K/uL (130-400); RDW Coefficient of Variation 13.2 % (11.5-14.5); RDW Standard Deviation 40.9 fL (36.4-46.3); Red Blood Count 4.67 M/uL (4.20-5.40); Thyroid Stimulating Hormone 3.971 uIu/ml (0.300-4.500); White Blood Count 5.87 K/ul (4.8-10.8)
[2024-02-17] MEDS ORDERED: PHARMACY GLYCEMIC MGMT CONSULT PRN (16:02)
[2024-02-17 16:08] LABS: INR 1.2 (0.9-1.1); Partial Thromboplastin Time 27 Seconds (21-31); Prothrombin Time 12.6 Seconds (9.0-12.0)
[2024-02-17] MEDS ORDERED: LORazepam 2 MG/1 ML VIAL IV PRN ×3 (16:17)
[2024-02-17] MEDS ORDERED: GABAPENTIN 1200MG ALCOHOL WITHDRAWAL LOAD PO STA (16:17)
[2024-02-17] MEDS ORDERED: Ativan IV Alcohol Withdrawal--Active Protocol IV PRN (16:17)
--- NOTE | 2024-02-17 16:17 | History & Physical Report ---
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 Longstanding alcohol abuse, interested in detox and rehab Given IV Banana bag, 2mg IV ativan in ED Alcohol withdrawal protocol with gabapentin and IV ativan as needed Continue gentle fluids PO Thiamine and Folic Acid daily Appreciate case mgmt help coordinating rehab (3) Transaminitis: (4) Alcoholic cirrhosis of liver without ascites: Plan: Appears compensated, continue to recommend strict cessation Transaminitis 2/2 etoh abuse - Tbili 1.4, AST 156, ALT 138, alk phos 248 Hepatitis panel added Monitor daily LFTs (5) Hyponatremia: Plan: Na 126, likely pseudohyponatremia but corrects to 130 Monitor daily (6) DM (diabetes mellitus), type 2: Plan: Uncontrolled with A1c 9.3 in November 2023 Initial BSG 350, receiving IV fluids now her glucose monitor showing improvement at 270 Considered early stages of DKA but VBG reassuring in normal range Glycemic consult placed given complication of etoh withdrawal BSG AC HS (7) Anxiety: (8) Depression: Plan: Given missed dose of buspirone Continue buspirone, escitalopram, trazodone DVT Ppx: SQ lovenox Code status: FULL PCP: [facility] Dispo: Admit to PCU Patient seen in collaboration with Dr. Yao. Please see addendum. I spent a total of 75 minutes coordinating, documenting, and providing care for this patient excluding time spent in the performance of separately billed services. 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 Patient with longstanding alcohol use with multiple admissions in the past. Endorses drinking 2 boxed ashleigh over the weekend with last drink around midnight. Woke up this morning nauseated, dry heaving and tremors which is her typical withdrawal process. Is interested in assistance with withdrawal and would like to go to rehab for the first time. Denies any history of seizure and alcohol withdrawal in the past. States she feels anxious but mood is otherwise stable. Denies any SI. Had a fall last week but denies any last evening. No fever, chills, lightheadedness, chest pain, shortness of breath, abdominal pain, dysuria, diarrhea or constipation. No melena or hematochezia. Did not take any of her medications this morning. Allergies Allergy/AdvReac Type Severity Reaction Status Date / Time doxycycline Allergy Severe Muscle Pain Verified 11/26/23 08:30 theophylline AdvReac Intermediate VERTIGO Verified 11/26/23 08:30 Home Medications Medication Instructions Recorded Confirmed Type fluticasone 250 mcg-salmeterol 50 1 inh inhalation QAM 02/27/19 02/17/24 History mcg/dose blistr powdr for inhalation (Advair Diskus) albuterol sulfate 90 mcg/actuation 2 puff inhalation UD PRN Shortness 07/23/19 02/17/24 History aerosol inhaler (Ventolin HFA) Of Breath buspirone 10 mg tablet 20 mg PO TID 04/22/22 02/17/24 History lorazepam 0.5 mg tablet 0.5 mg PO TID PRN Anxiety 09/09/23 02/17/24 History escitalopram oxalate 10 mg tablet 10 mg PO QAM 11/26/23 02/17/24 History insulin aspart 4 - 5 unit subcut TID 11/26/23 02/17/24 History (niacinamide)(U-100) 100 unit/mL(3 mL) subcutaneous pen (Fiasp FlexTouch U-100 Insulin) insulin glargine-yfgn 100 unit/mL 32 unit subcut QAM 11/26/23 02/17/24 History (3 mL) subcutaneous pen (Semglee (insulin glargine-yfgn) Pen) pen needle, diabetic 32 gauge x 11/26/23 02/17/24 History 5/32" (BD Ultra-Fine Gertrude Pen Needle) trazodone 50 mg tablet 50 mg PO QPM 11/26/23 02/17/24 History bjlpflclsqfv-Lt-bqgw-minerals 1 tab PO DAILY 12/01/23 02/17/24 History zinc acetate 50 mg (zinc) capsule 50 mg PO DAILY 12/01/23 02/17/24 History Past Med/Surg History Problem List Hyponatremia Hyperglycemia (Acute) Alcohol abuse (Acute) Vomiting (Acute) Alcohol abuse (Acute) Suicidal ideation (Acute) Alcohol withdrawal (Acute) Diabetes type 2, controlled Alcohol use disorder, moderate, dependence Alcohol abuse (Acute) Mood disorder (Acute) History of suicidal ideation MDD (major depressive disorder), recurrent, in partial remission Suicidal ideation (Acute) Alcohol withdrawal (Acute) DKA (diabetic ketoacidosis) (Acute) History of asthma History of alcohol abuse History of recent fall Alcohol dependence (Acute) Alcohol withdrawal (Acute) Hypophosphatemia DKA (diabetic ketoacidosis) (Acute) Depression with suicidal ideation DKA, type 1 Polycythemia Hypercalcemia Metabolic acidosis due to diabetes mellitus Splenomegaly Hepatic steatosis Anxiety (Acute) Alcoholic hepatitis Nausea and vomiting (Acute) Elevated LFTs (Acute) Depression (Acute) Asthma Neutropenia Gram-positive cocci bacteremia Abscess Metabolic encephalopathy REG (acute kidney injury) Vomiting Elevated LFTs Weakness (Acute) Acute pancreatitis (Acute) REG (acute kidney injury) (Acute) DKA (diabetic ketoacidoses) (Acute) Coffee ground emesis (Acute) Hyperglycemia Alcoholism (Acute) Discharge planning issues MRSA (methicillin resistant Staphylococcus aureus) carrier Acute renal failure (ARF) Electrolyte and fluid disorder Anemia Acute upper GI hemorrhage Urinary tract infection Hypophosphatemia (Acute) Hypokalemia (Acute) Lactic acidosis (Acute) Hypoalbuminemia (Acute) Edema Elevated INR (Acute) Acute liver failure (Acute) Coagulopathy Elevated LFTs (Acute) Tachycardia (Acute) Alcohol abuse (Acute) Asthma Cirrhosis (Acute) GERD (gastroesophageal reflux disease) Abnormal TSH Leukopenia DVT prophylaxis Diabetes Alcohol abuse (Acute) Tremor (Acute) Leukocytopenia, unspecified Thrombocytopenia Anemia Diabetes Pancytopenia Anxiety (Chronic) Alcohol abuse (Acute) Medical History (Updated 02/17/24 @ 16:56 by Alysha Cardozo PA-C) Transaminitis DM (diabetes mellitus), type 2 Alcoholic cirrhosis of liver without ascites Tachycardia Acute alcoholic pancreatitis Suicidal ideation Hypophosphatemia Hypomagnesemia Metabolic acidosis Thrush Alcoholic intoxication Thrombocytopenia Alcohol withdrawal Acute alcoholic hepatitis Acidosis, metabolic Acute pancreatitis Electrolyte abnormality DVT prophylaxis Alcohol withdrawal Asthma Surgical History History of dental surgery wisdom teeth History of esophagogastroduodenoscopy (EGD) Family History Father Prediabetes Grandfather (Paternal) Diabetes Mother Hypertension MVP (mitral valve prolapse) Social History Smoking Status: Former smoker Tobacco Type: Cigarettes Age Quit Using Tobacco: 39; packs per day: 1; Second Hand Exposure: No; Do You Dip or Chew Tobacco: No; Hx Alcohol Use: Yes Alcohol type: hard liquor Alcohol type Comment: 4 glasses wine daily Hx Substance Use: No Preferred Language: [place] Communication Ability: Effective Visual Impairment: No Limitations Tuck Pointer Required: No Beliefs That Will Affect Care: None marital status: marital status details: Single parent Current Living Situation: Alone Current Living Situation Comment: daughter current occupational status: unemployed How many Children do You have: 1 Feels Safe at Home: Yes Childhood Exposure to Second-Hand Smoke: No Gender Identity: Female Assistive Devices: Glasses Review of Systems Review of Systems: At least ten systems reviewed and negative except as noted in the HPI. Physical Exam Physical Exam: General Appearance: WD/WN, vitals as above, NAD, sitting up in bed, pleasant, BUE tremors Head: normocephalic, atraumatic Eyes: normal inspection, PERRL, conjunctivae normal, anicteric sclerae ENT: external ear and nose normal, dry mucous membranes of oropharynx Neck: normal visual inspection, trachea midline, no thyromegaly Respiratory: normal respiratory effort, lungs clear to auscultation, no wheeze, rales, rhonchi. No accessory muscle use Cardiovascular: tachycardic rate, regular rhythm, normal peripheral pulses, no BLE edema. Vessels: no JVD Chest: normal inspection of chest Abdomen/GI: normal bowel sounds, soft, nontender, no hepatosplenomegaly Extremities/Musculoskeletal: no cyanosis or clubbing, extremities motor strength 5/5 Neurologic: PERRL, EOMI, accommodation nl, no face palsy, no dysarthria, CN's II-XI intact bilaterally and moves all extremities Psychiatric: A+Ox3, + anxious Skin: no rashes, normal color, warm/dry Results & Data Results & Data Vital Signs (Past 12 Hours) Vital Signs Temp Pulse Pulse Resp BP BP Pulse Ox 02/17/24 15:14 37.2 C 103 H 22 126/75 97 02/17/24 14:37 107 H 20 96 02/17/24 13:44 122 H 02/17/24 13:38 36.6 C 120 H 20 133/89 96 02/17/24 13:38 36.6 C 120 H 20 133/89 96 O2 Del Method 02/17/24 15:14 Room Air 02/17/24 14:37 Room Air 02/17/24 13:44 02/17/24 13:38 Room Air 02/17/24 13:38 Room Air Laboratory Results Short CBC 02/17/24 Range/Units 14:36 WBC 5.87 (4.8-10.8) K/ul Hgb 14.4 (12.0-16.0) g/dl Hct 40.4 (37.0-47.0) % Plt Count 163 (130-400) K/uL BMP 02/17/24 14:36 Sodium 126 L Potassium 4.2 Chloride 86 L Carbon Dioxide 15 L BUN 15 Creatinine 0.76 Glucose 352 H* Calcium 10.1 Liver Function 02/17/24 Range/Units 14:36 Total Bilirubin 1.4 H (0.2-1.0) mg/dl AST 156 H (13-39) U/L ALT 138 H (7-52) U/L Alkaline Phosphatase 248 H (34-104) U/L Albumin 4.5 (3.4-5.0) gm/dl ECG Additional Comments: EKG reviewed, sinus tach at 114 bpm Code Status & VTE Plan VTE Prophylaxis Plan VTE Prophylaxis will be ordered: Yes Supervising Physician Co-Signing Physician Notes 48-year-old lady with PMH of alcoholism with recurrent admission, recurrent suicidal ideation, T2DM, moderate persistent asthma, panic disorder and depression presented to the ED because she wanted to quit alcohol and noted her self in alcohol withdrawal. Patient reports being weak and getting tremors. She reports her last drink was last evening. She reports she usually drinks about 2 L of wine a day. She denies any febrile illness/sore throat/cough/headache/dizziness. She reports some dry heaving and nausea. Reports decreased appetite. Denies any acute changes in her bowel or bladder habit. She denied any abdominal pain. Patient reports fall after being tripped about 1 week ago [employer]AME [employer] and hit her left lateral rib cage. Bruise noted on exam. Will get CXR. Patient reports some pain but not bothering per patient. Patient denied hitting head. Patient denied suicidal ideation/homicidal ideation. Labs reviewed, fairly WNL. magnesium 2.0. EKG with sinus tachycardia. Alcohol level less than 10.0. T. bili/LFT elevated. Troponin WNL. Glucose level elevated at 356. Active problems: Alcohol withdrawal: Alcohol level less than 10.0, JAMESON S protocol, Librium taper, thiamine and folic acid. Monitor replete electrolytes. Sinus tachycardia: Likely secondary to alcohol withdrawal, continue gentle IV fluid hydration. Status post 1.5 L IV fluid in the ED. Will continue NSS at 60 mL an hour. Hyponatremia: Acute on chronic, baseline sodium level around low 130s. Admitting sodium level of 126. likely pseudohyponatremia vs decreased solute intake associated with alcohol abuse. Patient denies headache or dizziness. Will continue with IV fluid. Increase protein content in diet. Will send sodium workup [urine sodium, urine osmolality, serum sodium, serum osmolality]. If worsening, consider nephrology consult. Repeat BMP in 4 hours. Transaminitis: Likely secondary to alcohol abuse, repeat LFT in AM. Get hepatitis panel. Expect to improve with hydration/time. Follow. Pt denies abd pain. Uncontrolled diabetes: Elevated blood glucose level at 352 at presentation. Last A1c around 9. Will consult toe pounder. Glycemic pharmacy consult for management. Hold home medication, sliding scale insulin while in hospital. follow BMP in 4 hours, expect to improve w/ hydration and insulin. Fall: hit left side x lower chest. CXR to ro fracture. On exam: GENERAL: Alert and oriented x3. NAD, on RA. HEENT: No pallor, no icterus. Pupils equal, round and reactive to light. Oral mucosa moist. NECK: No JVD, no neck masses. HEART: S1 and S2 heard. Regular rate and rhythm. Tachycardia. No murmur, no gallop. RESPIRATORY SYSTEM: Normal AP diameter. No accessory muscle use. No wheezing, no crackles. ABDOMEN: Soft, bowel sounds present, nontender, no distention. CENTRAL NERVOUS SYSTEM: No facial droop. Speech is clear. Obeys simple commands. Moves extremities. EXTREMITIES: No edema, no erythema seen. Left lat chest bruise. I have seen and examined the patient and have discussed the case with the provider above. I agree with the assessment and plan as stated. (8) Depression Active/Remission status: currently active Depression Type: major depressive disorder Major depression episode severity: moderate Major depression recurrence: recurrent Qualified Code(s): F33.1 - Major depressive disorder, recurrent, moderate
[2024-02-17] MEDS: GABAPENTIN 600 MG TAB PO ONE (16:34)
[2024-02-17 16:39] LABS: Base Excess VBG -6.3 mEq/L; HCO3 VBG 18 mmol/L; Oxygen Saturation VBG 72.5 %; PCO2 VBG 32 mmHg (38-50); PO2 VBG 43 mmHg; pH VBG 7.36 (7.36-7.41)
[2024-02-17] MEDS: busPIRone 5 MG TAB PO ONE (17:28)
[2024-02-17] MEDS ORDERED: CARBOHYDRATES FOR HYPOGLYCEMIA PO PRN (17:45)
[2024-02-17] MEDS ORDERED: DEXTROSE 50% 50 ML SYRINGE IV PRN (17:45)
[2024-02-17] MEDS ORDERED: GLUCOSE 10 TAB/TUBE PO PRN (17:45)
[2024-02-17] MEDS ORDERED: GLUCOSE 40% GEL 15 GM TUBE PO PRN (17:45)
[2024-02-17] MEDS ORDERED: GLUCAGON FOR INJ 1 MG VIAL IM PRN (17:45)
[2024-02-17] MEDS: INSULIN ASPART PER UNIT CHARGE SC SCH (17:46)
[2024-02-17] MEDS: LANTUS PER UNIT CHARGE SC SCH (17:47)
[2024-02-17] MEDS: SODIUM CHLORIDE 0.9% 1,000 ML IV SCH (17:51)
[2024-02-17 19:34] LABS: Appearance Urine Clear (Clear); Bacteria Urine Automated None Seen (None Seen); Bilirubin Urine Negative (Negative); Blood Urine Negative (Negative); Cast Urine Automated 0-2 /lpf (0-2); Color Urine Yellow; Epithelial Cell Urine Auto 0-2 /hpf (0-2); Glucose Urine UA 3+ (Negative); Ketones Urine 4+ (Negative); Leukocyte Esterase Urine 1+ (Negative); Nitrite Urine Negative (Negative); Protein Urine 1+ (Negative); Specific Gravity Urine 1.025 (1.000-1.030); Urobilinogen Urine Negative (Negative); WBC Urine Automated 21-50 /hpf (0-5); pH Urine 5.5 (4.5-7.5)
[2024-02-17 19:58] LABS: BUN Creatinine Ratio 17.4 (10-20); Calcium 9.4 mg/dl (8.6-10.3); Creatinine Clr Calc Pharmacy 90.5 ml/min; Est GFR (African American) 119.3 ml/min; Est GFR (Non-African American) 102.9 ml/min; Potassium 3.9 mmol/L (3.5-5.1)
[2024-02-17] MEDS ORDERED: ONDANSETRON INJ 2 MG/ML 2 ML VIAL IV PRN (21:18)
[2024-02-17] MEDS ORDERED: POLYETHYLENE (MIRALAX) 17 GM PACK PO PRN (21:18)
[2024-02-17] MEDS ORDERED: ACETAMINOPHEN 325 MG TAB PO PRN (21:18)
[2024-02-17] MEDS ORDERED: ALBUTEROL HFA 8 GM INHALER INH PRN (21:18)
[2024-02-17] MEDS: busPIRone 5 MG TAB PO SCH (22:08)
[2024-02-17] MEDS: GABAPENTIN 600 MG TAB PO SCH (22:09)
[2024-02-17] MEDS: traZODone HCL 50 MG TAB PO SCH (22:09)
[2024-02-18] MEDS: INSULIN ASPART PER UNIT CHARGE SC SCH (00:05)
--- OUTSIDE RECORDS SUMMARY | 2024-02-18 00:08 | External Medical Summary | Summary of Care ---
Author Name Unknown Organization [facility] Address [address] [place] [address] Phone [phone] Care Team Providers Care Mirror Inspector Name Role Phone Krystin Graves MD Primary Care Provid er Encounter Details Date Type Department Care Team (Late st Contact Info) Description 02/09/2024 Telephone [facility] [address] [place] [address] Krystin Graves MD [address] [place] [address] Allergies Active Allergy Reactions Criticality Noted Date Comments Doxycycline High 07/15/2023 arthralgia Theophylline 04/30/2002 anxiety Theophylline Sodium Glycinate 2004 nervous documented as of this encounter (statuses as of 02/09/2024) Medications Medication Sig Dispensed Refills Start Date [...] Information Patient not taking.Reported on 07/12/2023 FreeStyle [place] Lite w/Device KitIndications:DM type 2, not at goal (HCC) Use to check sugars daily. E 11.9 1 Kit 04/16/2023 Active Triamcinolone Acetonide 55 MCG/ACT Nasal Aerosol (Nasacort Allergy 24HR) Administer into nostril as needed for Rhinitis. Active FreeStyle Beth 3 SensorIndications:DM type 2, not at goal ([facility]) Use as directed. Replace sensors every [...] Anxiety (insomnia). 120 Tablet 1 12/09/2023 Active Naltrexone HCl 50 MG Oral Tablet (Revia)Indications:A lcoholism (HCC),Alcohol withdrawal syndrome with complication (HCC) Take 1 Tablet by mouth in the morning. 90 Tablet 1 01/06/2024 Active Escitalopram Oxalate 10 MG Oral Tablet (Lexapro)Indications :Anxiety,Panic disorder,Major depressive disorder, recurrent episode, moderate (HCC) Take 1 Tablet by mouth in the morning. Add to 20mg for total daily dose of 30mg.. 90 Tablet 1 02/09/2024 Active LORazepam 0.5 MG Oral Tablet (Ativan)Indications: Panic attack Take 1 Tablet by mouth 3 times a day as needed for Anxiety. 15 Tablet 02/09/2024 Active documented as of this encounter (statuses as of 02/09/2024) Active Problems Problem Noted Date Diagnosed Date [...] as of this encounter (statuses as of 02/09/2024) Resolved Problems Problem Noted Date Diagnosed Date [...] as of this encounter (statuses as of 02/09/2024) Immunizations Name Administration Dates Next Due COVID-19 mRNA, LNP-s, No Pre serve, 2-Dose Series ([employer]) 04/17/2021,08/22/2020 Covid-19, Mrna, Lnp-s, Pf, B ivalent, 30 Mcg, IM, 12 yrs and above ([employer]) 03/20/2022,09/25/2021 Hepatitis B, 20+ yrs 03/05/2021 Pneumococcal Conjugate Vacci ne, 20-valent ([id number]) 02/20/2023 Pneumococcal Polysaccharide PPV23 (Pneumovax) 03/19/2018 Seasonal [...] Care Team (Late st Contact Info) Description 02/17/2024 9:40 AM EDT Office Visit Family [facility], [place] [address] [place] [address] Krystin Graves MD [address] [place] [address] 02/25/2024 6:10 PM EDT Pharmacy Pharmacy, [place] [address] [place] [address] [facility] [address] [place] [address] 03/16/2024 3:00 PM EDT Office Visit Hepatology, [facility] [address] [facility] [place] [address] Vee Juarez MD [address] [place] [id number] 03/18/2024 10:00 AM EDT Telemedicine Psychiatry Yudith Gonzales [address] [place] [phone] Woodrow Jang DO [address] [phone] Health Maintenance Due Date Last Done Comments Depression Monitoring 08/03/2020 08/03/2019 Cologuard 11/18/2020 Colonoscopy 11/18/2020 Colorectal Cancer Screening 11/18/2020 Fecal Occult Blood Test 11/18/2020 Sigmoidoscopy 11/18/2020 Hepatitis B Vaccine (2 of 3 - 19+ 3-dose series) 04/02/2021 03/05/2021 COVID-19 Vaccine (5 - 2022- season) 2023 03/20/2022, 09/25/2021, 04/17/2021, Additional history exists DTaP,Tdap,and Td Vaccines (2 - Td or Tdap) 09/01/2023 08/31/2013, 10/09/2005, 10/09/2005, Additional history exists Albumin/Creatinine Ratio 10/22/2023 10/21/2022 Diabetic Foot Exam 10/22/2023 10/21/2022, 06/14/2020 Mammogram 01/14/2024 01/13/2023, 12/22, 02/09/2018, Additional history exists Influenza Vaccine (FLU shot) (#1) 2024 03/13/2020, 04/22/2019, 04/22/2019, Additional history exists HbA1c 04/14/2024 10/14/2023, 01/0 01/2024, 08/02/2022, Additional history exists Diabetic Eye Exam 07/29/2024 07/29/2023, 02/23/2022 GFR 11/11/2024 11/12/2023, 10/22, 10/14/2023, Additional history exists Pap Smear 01/03/2026 01/03/2023, 04/0 09/2016, 09/24/2016, Additional history exists Lipid Panel 08/02/2027 08/02/2022, 10/10/2005 Cervical Cancer Screening 01/04/2028 HPV/Co-Test 01/04/2028 01/03/2023 Pneumococcal Vaccine: Pediatrics (0 to 5 Years) and At-Risk Patients (6 to 64 Years) Completed 02/20/2023, 03/19/2018 HPV (Gardasil) Vaccine Aged Out No lo nger eligible based on patient's age to complete this topic MENINGOCOCCAL (MENACTRA/MENVEO) Aged Out No longer eligible based on patient's age to complete this topic documented as of this encounter Medical Devices Not on filedocumented as of this encounter Care Teams Mirror Inspector Relationship Specialty Start Date End Date Krystin Graves MD [address] [place] [id number] PCP - General Family Medicine 10/21/22 documented as of this encounter
--- OUTSIDE RECORDS SUMMARY | 2024-02-18 00:08 | External Medical Summary | Summary of Care ---
Author Name Unknown Organization [facility] Address [address] [place] [address] Phone [phone] Care Team Providers Care Office Manager Receptionist Name Role Phone Krystin Graves MD Primary Care Provid er Reason for Visit * Reason Comments Hospital Follow-Up Anxiety has been delroy vated lately Encounter Details Date Type Department Care Team (Late st Contact Info) Description 02/09/2024 10:20 AM EDT Office Visit [facility] [address] [place] [address] Krystin Graves MD [address] [place] [address] Anxiety*; Panic disorder; Major depressive disorder, recurrent episode, moderate (HCC); Panic attack; Alcoholism (HCC) Allergies Active Allergy Reactions Criticality Noted Date [...] Information Patient not taking.Reported on 07/12/2023 [employer] [place] w/Device KitIndications:DM type 2, not at goal ([facility]) Use to check sugars daily. E 11.9 1 Kit 04/16/2023 Active Triamcinolone Acetonide 55 MCG/ACT Nasal Aerosol (Nasacort Allergy 24HR) Administer into nostril as needed for Rhinitis. Active FreeStyle Beth 3 SensorIndications:D M type 2, not at goal ([facility]) Use as directed. Replace sensors every [...] DM type 2, not at goal ([facility]) Use to inject insulin 4 times [...] Active Naltrexone HCl 50 MG Oral Tablet (Revia)Indications: Alcoholism (HCC),Alcohol withdrawal syndrome with complication (HCC) Take 1 Tablet by mouth in the morning. 90 Tablet 1 01/06/2024 Active Escitalopram Oxalate 10 MG Oral Tablet (Lexapro)Indication s:Anxiety,Panic disorder,Major depressive disorder, recurrent episode, moderate (HCC) Take 1 Tablet by mouth in the morning. Add to 20mg for total daily dose of 30mg.. 90 Tablet 1 02/09/2024 Active LORazepam 0.5 MG Oral Tablet (Ativan)Indications :Panic attack Take 1 Tablet by mouth 3 times a day as needed for Anxiety. 15 Tablet 02/09/2024 Active LORazepam 0.5 MG Oral Tablet (Ativan)Indications :Panic attack Take 1 Tablet by mouth 3 times a day as needed for Anxiety. 15 Tablet 11/21/2023 Discontinu ed(Refill) documented as of this encounter [...] mRNA, LNP-s, No Pre serve, 2-Dose Series ([employer]) 04/17/2021,08/22/2020 Covid-19, Mrna, Lnp-s, Pf, B ivalent, 30 Mcg, IM, 12 yrs and above ([employer]) 03/20/2022,09/25/2021 Hepatitis B, 20+ yrs 03/05/2021 Pneumococcal Conjugate Vacci ne, 20-valent ([id number]) 02/20/2023 Pneumococcal Polysaccharide PPV23 (Pneumovax) 03/19/2018 Seasonal [...] Sign Reading Time Taken Comments Blood Pressure 110/62 02/09/2024 10:12 AM EDT Pulse 93 02/09/2024 10:12 AM EDT Temperature 36.3 C (97.3 F) 02/09/2024 10:12 AM E DT Respiratory Rate 16 02/09/2024 10:12 AM EDT Oxygen Saturation 97% 02/09/2024 10:12 AM EDT Inhaled Oxygen Concentration - - Weight 70.5 kg (155 lb 8 oz) 02/09/2024 10:12 AM EDT Height 157.5 cm (5' 2") 02/09/2024 10:12 AM EDT Body Mass Index 28.44 02/09/2024 10:12 AM EDT documented in this encounter Progress Notes * Krystin Graves MD - 02/09/2024 10:31 AM EDT ASSESSMENT / PLAN: Marcus Avelar is a 48 year old female with PMHx alcoholism / hepatitis / h/o acute pancreatitis and REG / diabetes insulin dependent / recurrent suicidal ideation / severe panic disorder - here for ERfollow up Anxiety / MDD / alcohol use disorder Alcohol relapse Previously sober 6 weeks No known h/o DT or withdrawal Has upcoming psych appt 03/18 which will be her first w Nathaniel Crenshaw is her alcohol counselor at [facility] Reviewed anxiety/depression today She is agreeable to increase lexapro 20--> 30mg, check in via MyG 03/01 Consider adding propranolol Cont hydroxyzine prn Follow-up: Return in about 3 months (around 05/11/2024). | Check-out note: Cancel 02/16 appt Anxiety (Primary) - Escitalopram Oxalate 10 MG Oral Tablet (Lexapro); Take 1 Tablet by mouth in the morning. Add to 20mg for total daily dose of 30mg.. Panic disorder - Escitalopram Oxalate 10 MG Oral Tablet (Lexapro); Take 1 Tablet by mouth in the morning. Add to 20mg for total daily dose of 30mg.. Major depressive disorder, recurrent episode, moderate (HCC) - Escitalopram Oxalate 10 MG Oral Tablet (Lexapro); Take 1 Tablet by mouth in the morning. Add to 20mg for total daily dose of 30mg.. Panic attack - LORazepam 0.5 MG Oral Tablet (Ativan); Take 1 Tablet by mouth 3 times a day as needed for Anxiety. Alcoholism (HCC) Follow-up: Return in about 3 months (around 05/11/2024). | Check-out note: Cancel 02/16 appt If needed, prefers contact by: Ok to leave message on phone: SUBJECTIVE: Nursing Notes: Sade Thorne LPN 02/09/24 1017 Signed The patient has been properly identified by confirmation of name and date of . Chief Complaint Patient presents with Hospital Follow-Up Anxiety has been elevated lately HPI: Marcus Avelar is a 48 year old female. Here for recheck. Seen in ER 02/05/24 for acute alcohol intoxication - her family called EMS bc she fell out of contact w them. EMS reportedly found her drinking in her home. [place] [address]. Otherwise labs unremarkable. Pt denied any SI or HI, spent several hours in ER to sober. She did eventually undergo psych eval. Discharged home. She has not restarted naltrexone yet due to concern for diarrhea. Reviewed sources 1- Patient Active Problem List [...] as needed (sweating). 30 Tablet 1 [employer] [place] w/Device Kit Use to check sugars [...] 4 units with dinner. 15 mL 3 Insulin Glargine-yfgn 100 UNIT/ML Subcutaneous Solution Pen-injector (Semglee (yfgn)) Inject 32 Units under the skin [...] by mouth at bedtime. 90 Tablet 3 hydrOXYzine HCl 10 MG Oral Tablet (Atarax) Take 1 Tablet by mouth every 6 hours as needed for Anxiety (insomnia). 120 Tablet 1 Naltrexone HCl 50 MG Oral Tablet (Revia) Take 1 Tablet by mouth in the morning. 90 Tablet 1 Escitalopram Oxalate 10 MG Oral Tablet (Lexapro) Take 1 Tablet by mouth in the morning. Add to 20mgfor total daily dose of 30mg.. 90 Tablet 1 LORazepam 0.5 MG Oral Tablet (Ativan) Take 1 Tablet by mouth 3 times a day as needed for Anxiety. 15 Tablet 0 Atorvastatin Calcium 20 MG Oral [...] facility-administered medications for this visit. OBJECTIVE: BP 110/62 | Pulse 93 | Temp 36.3 C (97.3 F) | Resp 16 | Ht 1.575 m (5' 2") | Wt 70.5 kg (155 lb8 oz) | SpO2 97% | BMI 28.44 kg/m | BSA 1.76 m Vitals reviewed and is normotensive / afebrile / and not tachycardic General: No acute distress. Neuro: Alert Pleasant & interactive. Respiratory: Good inspiratory effort, no labored breathing. HEENT: Conjunctivae appear clear. No swelling noted face or lips. Skin: No rash visible on exposed skin areas, normal coloration & appears dry. Psych: Normal affect. Fluent speech. Krystin Graves MD [address] [address] There are no Patient Instructions on file for this visit. documented in this encounter Nursing Notes * Sade Thorne LPN - 02/09/2024 10:16 AM EDT The patient has been properly identified by confirmation of name and date of . Chief Complaint Patient presents with Hospital Follow-Up Anxiety has been elevated lately documented in this encounter Plan of Treatment Upcoming Encounters Date Type Department Care Team (Late st Contact Info) Description 02/17/2024 9:40 AM EDT Office Visit [facility] [address] [place] [address] Krystin Graves MD [address] [place] [address] 02/25/2024 6:10 PM EDT Pharmacy Pharmacy, [facility] [address] [place] [address] [facility] [place] [address] 03/16/2024 3:00 PM EDT Office Visit Hepatology, [address] [place] [address] Vee Juarez MD [address] [place] [id number] 03/18/2024 10:00 AM EDT Telemedicine Psychiatry Yudith [...] as of this encounter Visit Diagnoses Diagnosis Anxiety- Primary Anxiety state, unspecified Panic disorder Panic disorder without agoraphobia Major depressive disorder, recurrent episode, moderate (HCC) Major depressive disorder, recurrent episode, moderate Panic attack Panic disorder without agoraphobia Alcoholism (HCC) Other and unspecified alcohol dependence, unspecified drinking behavior documented in this encounter Care Teams Office Manager Receptionist Relationship Specialty Start Date End Date Krystin Graves MD [address] [place] [address] PCP - General Family Medicine 10/21/22 documented as of this encounter
--- NOTE | 2024-02-18 07:02 | Electrocardiogram Report ---
Test Reason : Blood Pressure : */* mmHG Vent. Rate : 114 BPM Atrial Rate : 114 BPM P-R Int : 132 ms QRS Dur : 78 ms QT Int : 334 ms P-R-T Axes : 51 29 49 degrees QTcB Int : 460 ms Sinus tachycardia Otherwise normal ECG When compared with ECG of 28-Dec-2023 10:57, No significant change Confirmed by Kevin Lambert ([id number]) on 02/18/2024 7:01:40 AM Referred By: REFERRED SELF Confirmed By: Kevin Lambert
[2024-02-18 08:05] LABS: Hematocrit (blood only) 35.3 % (37.0-47.0); Hemoglobin 12.2 g/dl (12.0-16.0); Mean Corpuscular Hemoglobin 30.5 pg (25.0-34.0); Mean Corpuscular Hgb Conc 34.6 g/dL (32.0-36.0); Mean Corpuscular Volume 88.3 fL (80.0-100.0); Mean Platelet Volume 9.8 fL (9.4-12.4); Platelet Count 111 K/uL (130-400); RDW Coefficient of Variation 13.4 % (11.5-14.5); RDW Standard Deviation 43.4 fL (36.4-46.3); White Blood Count 1.99 K/ul (4.8-10.8)
[2024-02-18 08:58] LABS: Albumin Globulin Ratio 1.7 (0.9-2); Albumin Level 3.8 gm/dl (3.4-5.0); BUN Creatinine Ratio 13.4 (10-20); Bilirubin,Total 1.1 mg/dl (0.2-1.0); Calcium 9.9 mg/dl (8.6-10.3); Creatinine Clr Calc Pharmacy 76.2 ml/min; Est GFR (African American) 98.1 ml/min; Est GFR (Non-African American) 84.6 ml/min; Globulin 2.2 gm/dl (2.5-4.0)
--- NOTE | 2024-02-18 08:59 | XRay Report ---
XR chest 1V portable CLINICAL HISTORY: weakness COMPARISON STUDY: Chest CT January 23, 2021. Chest radiograph December 28, 2023. FINDINGS: Lung volumes are normal. Linear right basilar densities represent atelectasis. There is no pneumothorax or pleural effusion. Cardiac size is normal. Mediastinal contours are normal. There is n o evidence for pulmonary edema. IMPRESSION: No acute cardiopulmonary findings. ACT 112: Negative or not required by law. Electronically signed by: Kishore Brown M.D. 02/18/2024 8:57 AM
[2024-02-18] MEDS: FLUTICASONE/VILANTEROL 200/25MCG 14 PUFFS/INHALER INH SCH (09:04)
[2024-02-18] MEDS: ENOXAPARIN INJ 40 MG/0.4 ML SYR SQ SCH (09:04)
[2024-02-18] MEDS: FOLIC ACID 1 MG TAB PO SCH (09:05)
[2024-02-18] MEDS: THIAMINE HCL 100 MG TAB PO SCH (09:05)
[2024-02-18] MEDS: ESCITALOPRAM OXALATE 10 MG TAB PO SCH (09:05)
[2024-02-18] MEDS: CEROVITE ADV FORMULA TAB PO SCH (09:05)
[2024-02-18 10:56] LABS: Hep B Surface Ag with confirm Negative (Negative)
[2024-02-18 11:01] LABS: Hep C Ab Rflx HepCQuant RNA Negative (Negative)
[2024-02-18] MEDS ORDERED: LANTUS PER UNIT CHARGE SC ONE (11:30)
--- NOTE | 2024-02-18 12:52 | Pharmacy Report ---
Pharmacy Glycemic Short Note 2 - Date of Service February 18, 2024 - Glycemic Short BSG Results (Last 24 hours): 02/17/24 02/17/24 02/17/24 14:36 17:38 18:37 Glucose 352 H* 188 H POC Glucose 273 H 02/17/24 02/17/24 02/17/24 21:35 22:11 23:56 Glucose POC Glucose 105 H 129 H 128 H 02/18/24 02/18/24 02/18/24 03:52 07:36 07:39 Glucose 238 H POC Glucose 104 H 223 H 02/18/24 12:37 Glucose POC Glucose 125 H OUTPATIENT ANTIDIABETIC REGIMEN: * Semglee 32 units SC qAM * Insulin aspart 4-5 units SC TID * HbA1c 9.3% on 12/02/23 ASSESSMENT: * 48 yo F w T1DM known to our service * Will utilize prior data to inform current regimen * Will gradually transition basal back to qAM administration to help facilitate eventual discharge back on home schedule PLAN FOR INPATIENT GLYCEMIC CONTROL: * Basal insulin * Lantus 20 units SQ at lunch today. 16-20 units with breakfast tomorrow, depending on BSG * Bolus insulin * NovoLog per scale ACHS or Q6hrs while NPO * Goal Range: Low 110 mg/dL - High 140 mg/dL * Correction Factor: 30 mg/dL/unit * Nutritional / Prandial insulin per carb ratio of 1 unit per 10 grams CHO c onsumed
[2024-02-18] MEDS: LANTUS PER UNIT CHARGE SC ONE (13:38)
[2024-02-18] MEDS: GABAPENTIN 600 MG TAB PO SCH (13:48)
--- NOTE | 2024-02-18 14:44 | Hospitalist Progress Note ---
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 Longstanding alcohol abuse, interested in detox and rehab Given IV Banana bag, 2mg IV ativan in ED Alcohol withdrawal protocol with gabapentin and IV ativan as needed Continue gentle fluids PO Thiamine and Folic Acid daily Appreciate case mgmt help coordinating rehab However remains medically stable without any acute distress No confusion and no significant withdrawal symptoms Awaiting case management evaluation for possible placement Likely discharge in a day or 2 (3) Transaminitis: (4) Alcoholic cirrhosis of liver without ascites: Plan: Appears compensated, continue to recommend strict cessation Transaminitis 2/2 etoh abuse - Tbili 1.4, AST 156, ALT 138, alk phos 248 Hepatitis panel added Monitor daily LFTs (5) Hyponatremia: Plan: Na 126, likely pseudohyponatremia but corrects to 130 Monitor daily (6) DM (diabetes mellitus), type 2: Plan: Uncontrolled with A1c 9.3 in November 2023 Initial BSG 350, receiving IV fluids now her glucose monitor showing improvement at 270 Considered early stages of DKA but VBG reassuring in normal range Glycemic consult placed given complication of etoh withdrawal BSG AC HS (7) Anxiety: (8) Depression: Plan: Given missed dose of buspirone Continue buspirone, escitalopram, trazodone DVT Ppx: SQ lovenox Code status: FULL PCP: [facility] Dispo: Admit to PCU Admission and Anticipated Discharge Date Admission Date: February 17, 2024 Subjective 02/18/2024 The patient was seen and examined in the emergency room She has been feeling much better Has had last drink on Friday and was admitted with anxiety attack No significant tremors and has been ambulating normally Review of Systems Review of Systems: All systems reviewed and are unremarkable except as noted below Physical Exam Physical Exam: Sitting on bed without any acute distress Constitutional: well developed, well nourished and + ill appearing Eyes: PERRL, conjunctivae normal, anicteric sclerae ENMT: external ear and nose normal, oropharynx normal Neck: trachea midline, no thyromegaly Respiratory: no respiratory distress Auscultation: lungs clear to auscultation bilaterally Cardiovascular: Rate/Rhythm: regular rate and regular rhythm; not tachycardic Heart Sounds: normal S1 and normal S2; no murmur Extremities: no edema Gastrointestinal (Abdomen): Inspection/Auscultation: normal bowel sounds; abdomen not distended Percussion/Palpation: abdomen soft; abdomen nontender Musculoskeletal: No acute arthritis involving any of the joint Neurologic: normal touch/pain/proprioception and moves all extremities; no focal motor deficits Psychiatric: A+Ox3, euthymic affect Mood: + anxious mood Lymphatic: no cervical or axillary lymphadenopathy Results & Data Results & Data Vital Signs (Past 12 Hours) Vital Signs Pulse Resp BP Pulse Ox O2 Del Method 02/18/24 06:00 91 H 17 131/79 98 Room Air Laboratory Results Short CBC 02/17/24 02/18/24 Range/Units 14:36 07:36 WBC 5.87 1.99 L (4.8-10.8) K/ul Hgb 14.4 12.2 (12.0-16.0) g/dl Hct 40.4 35.3 L (37.0-47.0) % Plt Count 163 111 L (130-400) K/uL BMP 02/17/24 02/17/24 02/17/24 14:36 18:37 18:37 Sodium 126 L 130 L 130 L Potassium 4.2 3.9 Chloride 86 L 94 L Carbon Dioxide 15 L 17 L BUN 15 12 Creatinine 0.76 0.69 Glucose 352 H* 188 H Calcium 10.1 9.4 02/18/24 07:36 Sodium 134 L Potassium 4.0 Chloride 100 Carbon Dioxide 29 BUN 11 Creatinine 0.82 Glucose 238 H Calcium 9.9 Liver Function 02/17/24 02/18/24 Range/Units 14:36 07:36 Total Bilirubin 1.4 H 1.1 H (0.2-1.0) mg/dl AST 156 H 185 H (13-39) U/L ALT 138 H 121 H (7-52) U/L Alkaline Phosphatase 248 H 202 H (34-104) U/L Albumin 4.5 3.8 (3.4-5.0) gm/dl Urine 02/17/24 Range/Units 19:13 Urine Color Yellow Urine Appearance Clear (Clear) Urine pH 5.5 (4.5-7.5) Ur Specific [place] 1.025 (1.000-1.030) Urine Protein 1+ H (Negative) Urine Glucose (UA) 3+ H (Negative) Medications Administered Current Inpatient Medications Acetaminophen (Acetaminophen 325 Mg Tab) 650 mg PO Q4H PRN PRN Reason: Pain or Fever Stop: 03/18/24 21:17 Albuterol (Albuterol Hfa 8 Gm Inhaler) 2 puffs INH QID PRN PRN Reason: Shortness Of Breath Stop: 03/18/24 21:17 Buspirone HCl (Buspirone 5 Mg Tab) 20 mg PO TID [facility] Stop: 03/18/24 21:29 Last Admin: 02/18/24 13:47 Dose: 20 mg Dextrose (Dextrose 50% 50 Ml Syringe) 25 - 50 ml IV UD PRN; Protocol PRN Reason: Hypoglycemia Protocol Stop: 03/18/24 17:44 Enoxaparin Sodium (Enoxaparin Inj 40 Mg/0.4 Ml Syr) 40 mg SQ Q24H [facility] Stop: 03/19/24 08:59 Last Admin: 02/18/24 09:04 Dose: 40 mg Escitalopram Oxalate (Escitalopram Oxalate 10 Mg Tab) 10 mg PO QAM [facility] Stop: 03/19/24 08:59 Last Admin: 02/18/24 09:05 Dose: 10 mg Fluticasone/Vilanterol (Fluticasone/Vilanterol 200/25mcg 14 Puffs/Inhaler) 1 puffs INH DAILY [facility] Stop: 03/19/24 08:59 Last Admin: 02/18/24 09:04 Dose: 1 puffs Folic Acid (Folic Acid 1 Mg Tab) 1 mg PO QAM [facility] Stop: 03/19/24 08:59 Last Admin: 02/18/24 09:05 Dose: 1 mg Gabapentin (Gabapentin 600 Mg Tab) 600 mg PO Q8H [facility] Stop: 02/19/24 06:01 Last Admin: 02/18/24 13:48 Dose: 600 mg Gabapentin (Gabapentin 600 Mg Tab) 600 mg PO Q12H [facility] Stop: 02/20/24 06:01 Gabapentin (Gabapentin 600 Mg Tab) 600 mg PO Q24H [facility] Stop: 02/21/24 06:01 Glucagon (Glucagon For Inj 1 Mg Vial) 1 mg IM UD PRN; Protocol PRN Reason: Hypoglycemia Protocol Stop: 03/18/24 17:44 Glucose (Glucose 40% Gel 15 Gm Tube) 15 - 30 gm PO UD PRN; Protocol PRN Reason: Hypoglycemia Protocol Stop: 03/18/24 17:44 Glucose (Glucose 10 Tab/Tube) 4 - 8 tab PO UD PRN; Protocol PRN Reason: Hypoglycemia Protocol Stop: 03/18/24 17:44 Sodium Chloride (Nss) 1,000 mls @ 60 mls/hr IV .[id number] [facility] Stop: 02/19/24 02:04 Last Admin: 02/18/24 12:07 Dose: 60 mls/hr Insulin Aspart (Insulin Aspart Per Unit Charge) 0 units SC ACHS [facility] Stop: 03/18/24 17:44 Last Admin: 02/18/24 13:37 Dose: 3 units Insulin Glargine (Lantus Per Unit Charge) 0 units SC QAM [facility]; Protocol Stop: 03/20/24 08:59 Lorazepam (Lorazepam 2 Mg/1 Ml Vial) 1 mg IV UD PRN; Protocol PRN Reason: EtOH Withdrawal AWSS Score 6,7 Stop: 03/18/24 16:16 Lorazepam (Lorazepam 2 Mg/1 Ml Vial) 2 mg IV UD PRN; Protocol PRN Reason: EtOH Withdrawal AWSS Score 8,9 Stop: 03/18/24 16:16 Miscellaneous (Carbohydrates For Hypoglycemia ) 15 - 30 gm PO UD PRN PRN Reason: Hypoglycemia Treatment Stop: 03/18/24 17:44 Miscellaneous Information (Pharmacy Glycemic Mgmt Consult) 1 each N/A UD PRN; Protocol PRN Reason: Consult Stop: 03/18/24 16:01 Multivitamins/Minerals (Cerovite Adv Formula Tab) 1 tab PO DAILY [facility] Stop: 03/19/24 08:59 Last Admin: 02/18/24 09:05 Dose: 1 tab Ondansetron HCl (Ondansetron Inj 2 Mg/Ml 2 Ml Vial) 4 mg IV Q6H PRN PRN Reason: Nausea Stop: 03/18/24 21:17 Polyethylene Glycol (Polyethylene (Miralax) 17 Gm Pack) 17 gm PO DAILY PRN PRN Reason: Constipation Stop: 03/18/24 21:17 Thiamine HCl (Thiamine Hcl 100 Mg Tab) 100 mg PO QAM [facility] Stop: 03/19/24 08:59 Last Admin: 02/18/24 09:05 Dose: 100 mg Trazodone HCl (Trazodone Hcl 50 Mg Tab) 50 mg PO QPM [facility] Stop: 03/18/24 21:29 Last Admin: 02/17/24 22:09 Dose: 50 mg (8) Depression Depression Type: major depressive disorder Major depression recurrence: recurrent Active/Remission status: currently active Major depression episode severity: moderate Qualified Code(s): F33.1 - Major depressive disorder, recurrent, moderate
[2024-02-18] MEDS: MELATONIN 3 MG TAB PO PRN (21:10)
[2024-02-19] MEDS: INSULIN ASPART PER UNIT CHARGE SC ONE (02:00)
[2024-02-19 07:01] LABS: Hematocrit (blood only) 34.1 % (37.0-47.0); Hemoglobin 11.9 g/dl (12.0-16.0); Mean Corpuscular Hemoglobin 30.9 pg (25.0-34.0); Mean Corpuscular Hgb Conc 34.9 g/dL (32.0-36.0); Mean Corpuscular Volume 88.6 fL (80.0-100.0); Platelet Count 81 K/uL (130-400); RDW Coefficient of Variation 13.3 % (11.5-14.5); RDW Standard Deviation 43.5 fL (36.4-46.3); Red Blood Count 3.85 M/uL (4.20-5.40)
[2024-02-19 07:18] LABS: Basophils # (auto) 0.01 K/uL (0.00-0.20); Basophils % (auto) 0.7 %; Eosinophils # (auto) 0.04 K/uL (0.00-0.50); Eosinophils % (auto) 2.7 %; Lymphocytes % (auto) 46.7 %; Monocytes % (auto) 6.7 %; Neutrophils # (auto) 0.65 K/uL (1.40-6.50); Neutrophils % (auto) 43.2 %
[2024-02-19 07:51] LABS: Albumin Globulin Ratio 1.6 (0.9-2); Albumin Level 3.7 gm/dl (3.4-5.0); BUN Creatinine Ratio 8.8 (10-20); Bilirubin,Total 0.9 mg/dl (0.2-1.0); Calcium 9.5 mg/dl (8.6-10.3); Creatinine Clr Calc Pharmacy 91.8 ml/min; Est GFR (African American) 119.9 ml/min; Est GFR (Non-African American) 103.4 ml/min; Globulin 2.3 gm/dl (2.5-4.0); Phosphorus 2.5 mg/dl (2.5-4.9); Potassium 3.6 mmol/L (3.5-5.1)
[2024-02-19] MEDS: LANTUS PER UNIT CHARGE SC SCH (08:46)
[2024-02-19] MEDS ORDERED: LANTUS PER UNIT CHARGE SC SCH (09:00)
--- NOTE | 2024-02-19 10:06 | Pharmacy Report ---
Pharmacy Glycemic Short Note 2 - Date of Service February 19, 2024 - Glycemic Short BSG Results (Last 24 hours): 02/18/24 02/18/24 02/19/24 12:37 20:33 01:49 Glucose POC Glucose 125 H 206 H 148 H 02/19/24 02/19/24 06:15 07:20 Glucose 282 H POC Glucose 254 H OUTPATIENT ANTIDIABETIC REGIMEN: * Semglee 32 units SC qAM * Insulin aspart 4-5 units SC TID * HbA1c 9.3% on 12/02/23 ASSESSMENT: 02/19/24 * Blood sugars remain over goal, no hypoglycemia at night (148mg/dl), fasting 282mg/dl. Will increase basal back to close to home dose today. Continue NovoLog parameters at this time. 02/18/24 * 48 yo F w T1DM known to our service * Will utilize prior data to inform current regimen * Will gradually transition basal back to qAM administration to help facilitate eventual discharge back on home schedule PLAN FOR INPATIENT GLYCEMIC CONTROL: * Basal insulin * Lantus 20 units SQ at lunch today. 16-20 units with breakfast tomorrow, depending on BSG * Bolus insulin * NovoLog per scale ACHS or Q6hrs while NPO * Goal Range: Low 110 mg/dL - High 140 mg/dL * Correction Factor: 30 mg/dL/unit * Nutritional / Prandial insulin per carb ratio of 1 unit per 10 grams CHO consumed
--- NOTE | 2024-02-19 10:08 | Pharmacy Report ---
Pharmacy Glycemic Short Note 2 - Date of Service February 19, 2024 - Glycemic Short BSG Results (Last 24 hours): 02/18/24 02/18/24 02/19/24 12:37 20:33 01:49 Glucose POC Glucose 125 H 206 H 148 H 02/19/24 02/19/24 06:15 07:20 Glucose 282 H POC Glucose 254 H OUTPATIENT ANTIDIABETIC REGIMEN: * Semglee 32 units SC qAM * Insulin aspart 4-5 units SC TID * HbA1c 9.3% on 12/02/23 ASSESSMENT: 02/19/24 * No hypoglycemia at night (148mg/dl), fasting 282mg/dl. Will increase basal back to close to home dose today. Continue NovoLog parameters at this time. * Change blood sugar goal range to prevent hypoglycemia. 02/18/24 * 48 yo F w T1DM known to our service * Will utilize prior data to inform current regimen * Will gradually transition basal back to qAM administration to help facilitate eventual discharge back on home schedule * Per Ammy Ellis CDE - BG dropped low overnight last night via FreeStyle Beth. She reported drinking juice x 2 + consuming a turkey sandwich. This explains the hyperglycemia noted at breakfast, although the hypoglycemic event was not recorded in the medical record since there wasn't a scheduled BSG check. * Lantus 20 units already administered today, same as yesterday. Will add overnight check tonight to monitor for hypoglycemia and provide CHO if indicated. Ongoing Lantus determined in the AM. PLAN FOR INPATIENT GLYCEMIC CONTROL: * Basal insulin * Lantus 30 units SQ daily * Bolus insulin * NovoLog per scale ACHS or Q6hrs while NPO * Goal Range: Low 120 mg/dL - High 150 mg/dL * Correction Factor: 30 mg/dL/unit * Nutritional / Prandial insulin per carb ratio of 1 unit per 10 grams CHO consumed
[2024-02-19] MEDS: LORazepam 2 MG/1 ML VIAL IV STA (12:10)
--- NOTE | 2024-02-19 13:34 | Hospitalist Progress Note ---
Date of Service February 19, 2024 Assessment & Plan (1) Alcohol abuse: Plan: History of alcohol abuse with recurrent admissions to the hospital Strongly advised to quit drinking Has not been able to send her to inpatient rehab facility Does not want to go to inpatient rehab Likely discharge tomorrow if stable Neutropenia Noted to have decreasing white count and neutropenia at 0.65 L Will monitor CBC with differential If neutropenia improves we will let her go tomorrow (2) Alcohol use disorder, moderate, dependence: Plan: This is a 48-year-old female with PMH of DM II, ongoing alcoholism, panic disorder, depression, asthma and 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 Longstanding alcohol abuse, interested in detox and rehab Given IV Banana bag, 2mg IV ativan in ED Alcohol withdrawal protocol with gabapentin and IV ativan as needed Continue gentle fluids PO Thiamine and Folic Acid daily Appreciate case mgmt help coordinating rehab However remains medically stable without any acute distress No confusion and no significant withdrawal symptoms Awaiting case management evaluation for possible placement Likely discharge in a day or 2 Does not have any withdrawal symptoms (3) Transaminitis: (4) Alcoholic cirrhosis of liver without ascites: Plan: Appears compensated, continue to recommend strict cessation Transaminitis 2/2 etoh abuse - Tbili 1.4, AST 156, ALT 138, alk phos 248 Hepatitis panel added Monitor daily LFTs -LFTs are getting better (5) Hyponatremia: Plan: Na 126, likely pseudohyponatremia but corrects to 130 Monitor daily (6) DM (diabetes mellitus), type 2: Plan: Uncontrolled with A1c 9.3 in November 2023 Initial BSG 350, receiving IV fluids now her glucose monitor showing improvement at 270 Considered early stages of DKA but VBG reassuring in normal range Glycemic consult placed given complication of etoh withdrawal BSG AC HS appreciate glycemic pharmacist input and recommendation (7) Anxiety: (8) Depression: Plan: Given missed dose of buspirone Continue buspirone, escitalopram, trazodone DVT Ppx: SQ lovenox Code status: FULL PCP: [facility] Dispo: Admit to PCU Admission and Anticipated Discharge Date Admission Date: February 17, 2024 Subjective 02/18/2024 The patient was seen and examined in the emergency room She has been feeling much better Has had last drink on Friday and was admitted with anxiety attack No significant tremors and has been ambulating normally 02/19/2024 The patient was seen and examined telemetry and She has been feeling much better but remains anxious Does not have any significant tremors involving the outstretched hands She has been ambulating in the room without any difficulties Does not want to go to inpatient rehab Review of Systems Review of Systems: All systems reviewed and are unremarkable except as noted below Physical Exam Physical Exam: Sitting on bed without any acute distress Constitutional: well developed, well nourished and + ill appearing Eyes: PERRL, conjunctivae normal, anicteric sclerae ENMT: external ear and nose normal, oropharynx normal Neck: trachea midline, no thyromegaly Respiratory: no respiratory distress Auscultation: lungs clear to auscultation bilaterally Cardiovascular: Rate/Rhythm: regular rate and regular rhythm; not tachycardic Heart Sounds: normal S1 and normal S2; no murmur Extremities: no edema Gastrointestinal (Abdomen): Inspection/Auscultation: normal bowel sounds; abdomen not distended Percussion/Palpation: abdomen soft; abdomen nontender Neurologic: normal touch/pain/proprioception and moves all extremities; no focal motor deficits Psychiatric: A+Ox3, euthymic affect Mood: + anxious mood Lymphatic: no cervical or axillary lymphadenopathy Results & Data Results & Data Vital Signs (Past 12 Hours) Vital Signs Temp Pulse Pulse Resp BP Pulse Ox O2 Del Method 02/19/24 10:52 36.5 C 86 18 126/82 98 Room Air 02/19/24 07:21 36.6 C 73 18 126/83 100 Room Air 02/19/24 07:00 69 02/19/24 04:18 36.8 C 70 18 101/62 96 Room Air Laboratory Results Short CBC 02/19/24 Range/Units 06:15 WBC 1.50 L (4.8-10.8) K/ul Hgb 11.9 L (12.0-16.0) g/dl Hct 34.1 L (37.0-47.0) % Plt Count 81 L (130-400) K/uL BMP 02/19/24 06:15 Sodium 137 Potassium 3.6 Chloride 105 Carbon Dioxide 27 BUN 6 Creatinine 0.68 Glucose 282 H Calcium 9.5 Liver Function 02/19/24 Range/Units 06:15 Total Bilirubin 0.9 (0.2-1.0) mg/dl AST 101 H (13-39) U/L ALT 99 H (7-52) U/L Alkaline Phosphatase 186 H (34-104) U/L Albumin 3.7 (3.4-5.0) gm/dl Medications Administered Current Inpatient Medications Acetaminophen (Acetaminophen 325 Mg Tab) 650 mg PO Q4H PRN PRN Reason: Pain or Fever Stop: 03/18/24 21:17 Albuterol (Albuterol Hfa 8 Gm Inhaler) 2 puffs INH QID PRN PRN Reason: Shortness Of Breath Stop: 03/18/24 21:17 Buspirone HCl (Buspirone 5 Mg Tab) 20 mg PO TID ARMANI Stop: 03/18/24 21:29 Last Admin: 02/19/24 08:48 Dose: 20 mg Dextrose (Dextrose 50% 50 Ml Syringe) 25 - 50 ml IV UD PRN; Protocol PRN Reason: Hypoglycemia Protocol Stop: 03/18/24 17:44 Enoxaparin Sodium (Enoxaparin Inj 40 Mg/0.4 Ml Syr) 40 mg SQ Q24H ARMANI Stop: 03/19/24 08:59 Last Admin: 02/19/24 08:48 Dose: 40 mg Escitalopram Oxalate (Escitalopram Oxalate 10 Mg Tab) 10 mg PO QAM ARMANI Stop: 03/19/24 08:59 Last Admin: 02/19/24 08:48 Dose: 10 mg Fluticasone/Vilanterol (Fluticasone/Vilanterol 200/25mcg 14 Puffs/Inhaler) 1 puffs INH DAILY ARMANI Stop: 03/19/24 08:59 Last Admin: 02/19/24 08:49 Dose: 1 puffs Folic Acid (Folic Acid 1 Mg Tab) 1 mg PO QAM ARMANI Stop: 03/19/24 08:59 Last Admin: 02/19/24 08:48 Dose: 1 mg Gabapentin (Gabapentin 600 Mg Tab) 600 mg PO Q12H ARMANI Stop: 02/20/24 06:01 Gabapentin (Gabapentin 600 Mg Tab) 600 mg PO Q24H ARMANI Stop: 02/21/24 06:01 Glucagon (Glucagon For Inj 1 Mg Vial) 1 mg IM UD PRN; Protocol PRN Reason: Hypoglycemia Protocol Stop: 03/18/24 17:44 Glucose (Glucose 40% Gel 15 Gm Tube) 15 - 30 gm PO UD PRN; Protocol PRN Reason: Hypoglycemia Protocol Stop: 03/18/24 17:44 Glucose (Glucose 10 Tab/Tube) 4 - 8 tab PO UD PRN; Protocol PRN Reason: Hypoglycemia Protocol Stop: 03/18/24 17:44 Insulin Aspart (Insulin Aspart Per Unit Charge) 0 units SC ACHS [facility]; Protocol Stop: 03/18/24 17:44 Last Admin: 02/19/24 12:15 Dose: Not Given Insulin Glargine (Lantus Per Unit Charge) 30 units SC DAILY [facility]MANI; Protocol Stop: 03/20/24 08:59 Last Admin: 02/19/24 08:46 Dose: 30 units Lorazepam (Lorazepam 2 Mg/1 Ml Vial) 1 mg IV UD PRN; Protocol PRN Reason: EtOH Withdrawal AWSS Score 6,7 Stop: 03/18/24 16:16 Lorazepam (Lorazepam 2 Mg/1 Ml Vial) 2 mg IV UD PRN; Protocol PRN Reason: EtOH Withdrawal AWSS Score 8,9 Stop: 03/18/24 16:16 Melatonin (Melatonin 3 Mg Tab) 3 mg PO HS PRN PRN Reason: Sleep Stop: 03/19/24 19:55 Last Admin: 02/18/24 21:10 Dose: 3 mg Miscellaneous (Carbohydrates For Hypoglycemia ) 15 - 30 gm PO UD PRN PRN Reason: Hypoglycemia Treatment Stop: 03/18/24 17:44 Miscellaneous Information (Pharmacy Glycemic Mgmt Consult) 1 each N/A UD PRN; Protocol PRN Reason: Consult Stop: 03/18/24 16:01 Multivitamins/Minerals (Cerovite Adv Formula Tab) 1 tab PO DAILY ARMANI Stop: 03/19/24 08:59 Last Admin: 02/19/24 08:48 Dose: 1 tab Ondansetron HCl (Ondansetron Inj 2 Mg/Ml 2 Ml Vial) 4 mg IV Q6H PRN PRN Reason: Nausea Stop: 03/18/24 21:17 Polyethylene Glycol (Polyethylene (Miralax) 17 Gm Pack) 17 gm PO DAILY PRN PRN Reason: Constipation Stop: 03/18/24 21:17 Thiamine HCl (Thiamine Hcl 100 Mg Tab) 100 mg PO QAM [facility] Stop: 03/19/24 08:59 Last Admin: 02/19/24 08:48 Dose: 100 mg Trazodone HCl (Trazodone Hcl 50 Mg Tab) 50 mg PO QPM ARMANI Stop: 03/18/24 21:29 Last Admin: 02/18/24 21:10 Dose: 50 mg (8) Depression Depression Type: major depressive disorder Major depression recurrence: recurrent Active/Remission status: currently active Major depression episode severity: moderate Qualified Code(s): F33.1 - Major depressive disorder, recurrent, moderate
[2024-02-19 16:33] LABS: Hepatitis A Antibody IgM NON-REACTIVE (NON-REACTIVE); Hepatitis B Core Antibody IgM NON-REACTIVE (NON-REACTIVE)
[2024-02-19] MEDS: GABAPENTIN 600 MG TAB PO SCH (17:00)
--- NOTE | 2024-02-20 08:05 | Pharmacy Report ---
Pharmacy Glycemic Sign Off Nt - Date of Service February 20, 2024 - Assessment & Plan ASSESSMENT: * Pharmacy consulted for glycemic management, however patient is guiding glycemic regimen at this time. * Patient fears hypoglycemia and prefers heavily basal regimen with little prand ial coverage. * Novolog significantly loosened at dinner yesterday to CF/CR of 50/50 per patient preference. * Her basal dose is still active and close to her home dose. * Strong patient preferences with glycemic regimen typically are better for shared-decision making with provider as compared to remote pharmacist management * Pharmacy will sign off now - Dr. Vasquez aware PLAN FOR INPATIENT GLYCEMIC CONTROL: No changes needed to current regimen. * Continue basal insulin with Lantus 30 units SQ daily * Continue NovoLog per scale ACHS/Q6hrs while NPO * Goal range = 140 180 mg/dl * CF = 50 mg/dl/unit * CR = 1 unit for ever 50 g CHO consumed * Pharmacy is signing off of glycemic consult and will no longer be making adjustments to inpatient regimen. Please feel free to re-consult if needed. Thank you.
[2024-02-20] MEDS: LORazepam 0.5 MG TAB PO PRN (10:14)
[2024-02-20 11:59] LABS: Basophils # (auto) 0.02 K/uL (0.00-0.20); Basophils % (auto) 0.9 %; Eosinophils # (auto) 0.04 K/uL (0.00-0.50); Eosinophils % (auto) 1.7 %; Hematocrit (blood only) 34.6 % (37.0-47.0); Immature Granulocytes # (auto) 0.01 K/uL (0.01-0.20); Immature Granulocytes % (auto) 0.4 %; Lymphocytes # (auto) 0.58 K/uL (1.20-3.40); Lymphocytes % (auto) 25.1 %; Mean Corpuscular Hgb Conc 34.7 g/dL (32.0-36.0); Mean Corpuscular Volume 89.4 fL (80.0-100.0); Mean Platelet Volume 10.3 fL (9.4-12.4); Monocytes # (auto) 0.17 K/uL (0.11-0.59); Monocytes % (auto) 7.4 %; Neutrophils # (auto) 1.49 K/uL (1.40-6.50); Neutrophils % (auto) 64.5 %; Platelet Count 80 K/uL (130-400); RDW Coefficient of Variation 13.4 % (11.5-14.5); RDW Standard Deviation 43.7 fL (36.4-46.3); Red Blood Count 3.87 M/uL (4.20-5.40); White Blood Count 2.31 K/ul (4.8-10.8)
--- NOTE | 2024-02-20 13:22 | Hospitalist Progress Note ---
Date of Service February 20, 2024 Assessment & Plan (1) Alcohol abuse: Plan: History of alcohol abuse with recurrent admissions to the hospital Strongly advised to quit drinking Has not been able to send her to inpatient rehab facility Does not want to go to inpatient rehab Clinically much better and denies any significant symptoms Has been ambulating in the room and hallway without any problem Does not have any tremors with outstretched hands She is now agreeable to go to inpatient rehab facility and will likely be discharged tomorrow Neutropenia Noted to have decreasing white count and neutropenia at 0.65 L Will monitor CBC with differential If neutropenia improves we will let her go tomorrow white count is much improved and neutropenia is resolved (2) Alcohol use disorder, moderate, dependence: Plan: This is a 48-year-old female with PMH of DM II, ongoing alcoholism, panic disorder, depression, asthma and 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 Longstanding alcohol abuse, interested in detox and rehab Given IV Banana bag, 2mg IV ativan in ED Alcohol withdrawal protocol with gabapentin and IV ativan as needed Continue gentle fluids PO Thiamine and Folic Acid daily Appreciate case mgmt help coordinating rehab However remains medically stable without any acute distress No confusion and no significant withdrawal symptoms Awaiting case management evaluation for possible placement Likely discharge in a day or 2 Does not have any withdrawal symptoms (3) Transaminitis: (4) Alcoholic cirrhosis of liver without ascites: Plan: Appears compensated, continue to recommend strict cessation Transaminitis 2/2 etoh abuse - Tbili 1.4, AST 156, ALT 138, alk phos 248 Hepatitis panel added Monitor daily LFTs -LFTs are getting better (5) Hyponatremia: Plan: Na 126, likely pseudohyponatremia but corrects to 130 Monitor daily (6) DM (diabetes mellitus), type 2: Plan: Uncontrolled with A1c 9.3 in November 2023 Initial BSG 350, receiving IV fluids now her glucose monitor showing improvement at 270 Considered early stages of DKA but VBG reassuring in normal range Glycemic consult placed given complication of etoh withdrawal BSG AC HS appreciate glycemic pharmacist input and recommendation (7) Anxiety: (8) Depression: Plan: Given missed dose of buspirone Continue buspirone, escitalopram, trazodone DVT Ppx: SQ lovenox Code status: FULL PCP: [facility] Dispo: Admit to PCU Admission and Anticipated Discharge Date Admission Date: February 17, 2024 Subjective 02/18/2024 The patient was seen and examined in the emergency room She has been feeling much better Has had last drink on Friday and was admitted with anxiety attack No significant tremors and has been ambulating normally 02/19/2024 The patient was seen and examined telemetry and She has been feeling much better but remains anxious Does not have any significant tremors involving the outstretched hands She has been ambulating in the room without any difficulties Does not want to go to inpatient rehab 02/20/2024 Patient was seen and examined in telemetry unit She has been much better today without any tremors and/or palpitation Remains anxious and has been on oral Ativan as outpatient Denies any significant symptoms Review of Systems Review of Systems: All systems reviewed and are unremarkable except as noted below Physical Exam Physical Exam: Sitting on bed without any acute distress Constitutional: well developed, well nourished and + ill appearing Eyes: PERRL, conjunctivae normal, anicteric sclerae ENMT: external ear and nose normal, oropharynx normal Neck: trachea midline, no thyromegaly Respiratory: no respiratory distress Auscultation: lungs clear to auscultation bilaterally Cardiovascular: Rate/Rhythm: regular rate and regular rhythm; not tachycardic Heart Sounds: normal S1 and normal S2; no murmur Extremities: no edema Gastrointestinal (Abdomen): Inspection/Auscultation: normal bowel sounds; abdomen not distended Percussion/Palpation: abdomen soft; abdomen nontender Neurologic: normal touch/pain/proprioception and moves all extremities; no focal motor deficits Psychiatric: A+Ox3, euthymic affect Mood: + anxious mood Lymphatic: no cervical or axillary lymphadenopathy Results & Data Results & Data Vital Signs (Past 12 Hours) Vital Signs Temp Pulse Pulse Resp BP Pulse Ox O2 Del Method 02/20/24 11:06 37.1 C 68 18 128/81 98 Room Air 02/20/24 07:35 36.7 C 68 18 127/79 99 Room Air 02/20/24 07:29 60 02/20/24 03:44 36.5 C 77 16 120/68 99 Room Air Laboratory Results Short CBC 02/20/24 Range/Units 11:21 WBC 2.31 L (4.8-10.8) K/ul Hgb 12.0 (12.0-16.0) g/dl Hct 34.6 L (37.0-47.0) % Plt Count 80 L (130-400) K/uL Medications Administered Current Inpatient Medications Acetaminophen (Acetaminophen 325 Mg Tab) 650 mg PO Q4H PRN PRN Reason: Pain or Fever Stop: 03/18/24 21:17 Albuterol (Albuterol Hfa 8 Gm Inhaler) 2 puffs INH QID PRN PRN Reason: Shortness Of Breath Stop: 03/18/24 21:17 Buspirone HCl (Buspirone 5 Mg Tab) 20 mg PO TID ARMANI Stop: 03/18/24 21:29 Last Admin: 02/20/24 08:55 Dose: 20 mg Dextrose (Dextrose 50% 50 Ml Syringe) 25 - 50 ml IV UD PRN; Protocol PRN Reason: Hypoglycemia Protocol Stop: 03/18/24 17:44 Enoxaparin Sodium (Enoxaparin Inj 40 Mg/0.4 Ml Syr) 40 mg SQ Q24H ARMANI Stop: 03/19/24 08:59 Last Admin: 02/20/24 08:55 Dose: 40 mg Escitalopram Oxalate (Escitalopram Oxalate 10 Mg Tab) 10 mg PO QAM ARMANI Stop: 03/19/24 08:59 Last Admin: 02/20/24 08:55 Dose: 10 mg Fluticasone/Vilanterol (Fluticasone/Vilanterol 200/25mcg 14 Puffs/Inhaler) 1 puffs INH DAILY ARMANI Stop: 03/19/24 08:59 Last Admin: 02/20/24 08:56 Dose: 1 puffs Folic Acid (Folic Acid 1 Mg Tab) 1 mg PO QAM ARMANI Stop: 03/19/24 08:59 Last Admin: 02/20/24 08:55 Dose: 1 mg Gabapentin (Gabapentin 600 Mg Tab) 600 mg PO Q24H ARMANI Stop: 02/21/24 06:01 Glucagon (Glucagon For Inj 1 Mg Vial) 1 mg IM UD PRN; Protocol PRN Reason: Hypoglycemia Protocol Stop: 03/18/24 17:44 Glucose (Glucose 40% Gel 15 Gm Tube) 15 - 30 gm PO UD PRN; Protocol PRN Reason: Hypoglycemia Protocol Stop: 03/18/24 17:44 Glucose (Glucose 10 Tab/Tube) 4 - 8 tab PO UD PRN; Protocol PRN Reason: Hypoglycemia Protocol Stop: 03/18/24 17:44 Insulin Aspart (Insulin Aspart Per Unit Charge) 0 units SC ACHS [facility]; Protocol Stop: 03/18/24 17:44 Last Admin: 02/20/24 12:13 Dose: Not Given Insulin Glargine (Lantus Per Unit Charge) 30 units SC DAILY [facility]; Protocol Stop: 03/20/24 08:59 Last Admin: 02/20/24 08:56 Dose: 30 units Loperamide HCl (Loperamide Hcl 2 Mg Cap) 2 mg PO Q4H PRN PRN Reason: Diarrhea Stop: 03/21/24 11:04 Lorazepam (Lorazepam 0.5 Mg Tab) 0.5 mg PO TID PRN PRN Reason: Anxiety Stop: 03/21/24 10:06 Last Admin: 02/20/24 10:14 Dose: 0.5 mg Melatonin (Melatonin 3 Mg Tab) 3 mg PO HS PRN PRN Reason: Sleep Stop: 03/19/24 19:55 Last Admin: 02/19/24 20:43 Dose: 3 mg Miscellaneous (Carbohydrates For Hypoglycemia ) 15 - 30 gm PO UD PRN PRN Reason: Hypoglycemia Treatment Stop: 03/18/24 17:44 Multivitamins/Minerals (Cerovite Adv Formula Tab) 1 tab PO DAILY ARMANI Stop: 03/19/24 08:59 Last Admin: 02/20/24 08:55 Dose: 1 tab Ondansetron HCl (Ondansetron Inj 2 Mg/Ml 2 Ml Vial) 4 mg IV Q6H PRN PRN Reason: Nausea Stop: 03/18/24 21:17 Polyethylene Glycol (Polyethylene (Miralax) 17 Gm Pack) 17 gm PO DAILY PRN PRN Reason: Constipation Stop: 03/18/24 21:17 Thiamine HCl (Thiamine Hcl 100 Mg Tab) 100 mg PO QAM [facility] Stop: 03/19/24 08:59 Last Admin: 02/20/24 08:55 Dose: 100 mg Trazodone HCl (Trazodone Hcl 50 Mg Tab) 50 mg PO QPM [facility]MANI Stop: 03/18/24 21:29 Last Admin: 02/19/24 20:43 Dose: 50 mg (8) Depression Depression Type: major depressive disorder Major depression recurrence: recurrent Active/Remission status: currently active Major depression episode severity: moderate Qualified Code(s): F33.1 - Major depressive disorder, recurrent, moderate
[2024-02-20] MEDS: LOPERAMIDE HCL 2 MG CAP PO PRN (14:00)
[2024-02-21 03:13] VITALS: TEMP 99
[2024-02-21] MEDS: GABAPENTIN 600 MG TAB PO SCH (06:30)
[2024-02-21 07:17] VITALS: BP 112/70; PULSE 65; RESP 18; O2SAT 99
--- NOTE | 2024-02-21 09:23 | Hospitalist Progress Note ---
Date of Service February 21, 2024 Assessment & Plan (1) Alcohol abuse: Plan: History of alcohol abuse with recurrent admissions to the hospital Strongly advised to quit drinking Has not been able to send her to inpatient rehab facility Does not want to go to inpatient rehab Clinically much better and denies any significant symptoms Has been ambulating in the room and hallway without any problem Does not have any tremors with outstretched hands She is now agreeable to go to inpatient rehab facility and will likely be discharged tomorrow Remains medically stable to be transferred to inpatient alcohol rehab facility Neutropenia Noted to have decreasing white count and neutropenia at 0.65 L Will monitor CBC with differential If neutropenia improves we will let her go tomorrow white count is much improved and neutropenia is resolved Neutropenia resolved (2) Alcohol use disorder, moderate, dependence: Plan: This is a 48-year-old female with PMH of DM II, ongoing alcoholism, panic diso rder, depression, asthma and 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 Longstanding alcohol abuse, interested in detox and rehab Given IV Banana bag, 2mg IV ativan in ED Alcohol withdrawal protocol with gabapentin and IV ativan as needed Continue gentle fluids PO Thiamine and Folic Acid daily Appreciate case mgmt help coordinating rehab However remains medically stable without any acute distress No confusion and no significant withdrawal symptoms Awaiting case management evaluation for possible placement Likely discharge in a day or 2 Does not have any withdrawal symptoms Has been ambulating in the room without any difficulties and no more withdrawal symptoms (3) Transaminitis: (4) Alcoholic cirrhosis of liver without ascites: Plan: Appears compensated, continue to recommend strict cessation Transaminitis 2/2 etoh abuse - Tbili 1.4, AST 156, ALT 138, alk phos 248 Hepatitis panel added Monitor daily LFTs -LFTs are getting better (5) Hyponatremia: Plan: Na 126, likely pseudohyponatremia but corrects to 130 Monitor daily (6) DM (diabetes mellitus), type 2: Plan: Uncontrolled with A1c 9.3 in November 2023 Initial BSG 350, receiving IV fluids now her glucose monitor showing improvement at 270 Considered early stages of DKA but VBG reassuring in normal range Glycemic consult placed given complication of etoh withdrawal BSG AC HS appreciate glycemic pharmacist input and recommendation (7) Anxiety: (8) Depression: Plan: Given missed dose of buspirone Continue buspirone, escitalopram, trazodone DVT Ppx: SQ lovenox Code status: FULL PCP: [facility] Dispo: Admit to PCU Admission and Anticipated Discharge Date Admission Date: February 17, 2024 Subjective 02/18/2024 The patient was seen and examined in the emergency room She has been feeling much better Has had last drink on Friday and was admitted with anxiety attack No significant tremors and has been ambulating normally 02/19/2024 The patient was seen and examined telemetry and She has been feeling much better but remains anxious Does not have any significant tremors involving the outstretched hands She has been ambulating in the room without any difficulties Does not want to go to inpatient rehab 02/20/2024 Patient was seen and examined in telemetry unit She has been much better today without any tremors and/or palpitation Remains anxious and has been on oral Ativan as outpatient Denies any significant symptoms 02/21/2024 Patient was seen and examined in telemetry unit She has been stable and ready to go to inpatient rehab for alcoholism Denies any significant symptoms Review of Systems Review of Systems: All systems reviewed and are unremarkable except as noted below Physical Exam Physical Exam: Sitting on bed without any acute distress Constitutional: well developed, well nourished and + ill appearing Eyes: PERRL, conjunctivae normal, anicteric sclerae ENMT: external ear and nose normal, oropharynx normal Neck: trachea midline, no thyromegaly Respiratory: no respiratory distress Auscultation: lungs clear to auscultation bilaterally Cardiovascular: Rate/Rhythm: regular rate and regular rhythm; not tachycardic Heart Sounds: normal S1 and normal S2; no murmur Extremities: no edema Gastrointestinal (Abdomen): Inspection/Auscultation: normal bowel sounds; abdomen not distended Percussion/Palpation: abdomen soft; abdomen nontender Neurologic: normal touch/pain/proprioception and moves all extremities; no focal motor deficits Psychiatric: A+Ox3, euthymic affect Mood: + anxious mood Lymphatic: no cervical or axillary lymphadenopathy Results & Data Results & Data Vital Signs (Past 12 Hours) Vital Signs Temp Pulse Pulse Resp BP Pulse Ox O2 Del Method 02/21/24 07:17 37.2 C 65 18 112/70 99 Room Air 02/21/24 07:16 58 L 02/21/24 03:12 37.2 C 66 16 107/81 100 Room Air 02/20/24 23:32 67 (8) Depression Active/Remission status: currently active Depression Type: major depressive disorder Major depression episode severity: moderate Major depression recurrence: recurrent Qualified Code(s): F33.1 - Major depressive disorder, recurrent, moderate
--- NOTE | 2024-02-22 09:32 | Discharge Summary ---
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 Patient with longstanding alcohol use with multiple admissions in the past. Endorses drinking 2 boxed ashleigh over the weekend with last drink around midnight. Woke up this morning nauseated, dry heaving and tremors which is her typical withdrawal process. Is interested in assistance with withdrawal and would like to go to rehab for the first time. Denies any history of seizure and alcohol withdrawal in the past. States she feels anxious but mood is otherwise stable. Denies any SI. Had a fall last week but denies any last evening. No fever, chills, lightheadedness, chest pain, shortness of breath, abdominal pain, dysuria, diarrhea or constipation. No melena or hematochezia. Did not take any of her medications this morning. Admission Exam Per Admitting Provider Physical Exam: General Appearance: WD/WN, vitals as above, NAD, sitting up in bed, pleasant, BUE tremors Head: normocephalic, atraumatic Eyes: normal inspection, PERRL, conjunctivae normal, anicteric sclerae ENT: external ear and nose normal, dry mucous membranes of oropharynx Neck: normal visual inspection, trachea midline, no thyromegaly Respiratory: normal respiratory effort, lungs clear to auscultation, no wheeze, rales, rhonchi. No accessory muscle use Cardiovascular: tachycardic rate, regular rhythm, normal peripheral pulses, no BLE edema. Vessels: no JVD Chest: normal inspection of chest Abdomen/GI: normal bowel sounds, soft, nontender, no hepatosplenomegaly Extremities/Musculoskeletal: no cyanosis or clubbing, extremities motor strength 5/5 Neurologic: PERRL, EOMI, accommodation nl, no face palsy, no dysarthria, CN's II-XI intact bilaterally and moves all extremities Psychiatric: A+Ox3, + anxious Skin: no rashes, normal color, warm/dry Principal Diagnosis Alcohol abuse, type 2 diabetes, anxiety/depression, alcoholic cirrhosis compensated Discharge Exam Sitting on bed without any acute distress Constitutional well developed, well nourished and + ill appearing Eyes PERRL, conjunctivae normal, anicteric sclerae ENMT external ear and nose normal, oropharynx normal Neck trachea midline, no thyromegaly Respiratory no respiratory distress Auscultation: lungs clear to auscultation bilaterally Cardiovascular Rate/Rhythm: regular rate and regular rhythm; not tachycardic Heart Sounds: normal S1 and normal S2; no murmur Extremities: no edema Gastrointestinal (Abdomen) Inspection/Auscultation: normal bowel sounds; abdomen not distended Percussion/Palpation: abdomen soft; abdomen nontender Neurologic normal touch/pain/proprioception and moves all extremities; no focal motor deficits Psychiatric A+Ox3, euthymic affect Mood: + anxious mood Lymphatic no cervical or axillary lymphadenopathy Discharge Data Allergies Allergy/AdvReac Type Severity Reaction Status Date / Time doxycycline Allergy Severe Muscle Pain Verified 11/26/23 08:30 theophylline AdvReac Intermediate VERTIGO Verified 11/26/23 08:30 Consultations 02/17/24 16:08 ED Decision to Admit Stat Hospital Course (1) Alcohol abuse: History of alcohol abuse with recurrent admissions to the hospital Strongly advised to quit drinking Has not been able to send her to inpatient rehab facility Does not want to go to inpatient rehab Clinically much better and denies any significant symptoms Has been ambulating in the room and hallway without any problem Does not have any tremors with outstretched hands She is now agreeable to go to inpatient rehab facility and will likely be discharged tomorrow Remains medically stable to be transferred to inpatient alcohol rehab facility Neutropenia Noted to have decreasing white count and neutropenia at 0.65 L Will monitor CBC with differential If neutropenia improves we will let her go tomorrow white count is much improved and neutropenia is resolved Neutropenia resolved (2) Alcohol use disorder, moderate, dependence: This is a 48-year-old female with PMH of DM II, ongoing alcoholism, panic disorder, depression, asthma and 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 Longstanding alcohol abuse, interested in detox and rehab Given IV Banana bag, 2mg IV ativan in ED Alcohol withdrawal protocol with gabapentin and IV ativan as needed Continue gentle fluids PO Thiamine and Folic Acid daily Appreciate case mgmt help coordinating rehab However remains medically stable without any acute distress No confusion and no significant withdrawal symptoms Awaiting case management evaluation for possible placement Likely discharge in a day or 2 Does not have any withdrawal symptoms Has been ambulating in the room without any difficulties and no more withdrawal symptoms (3) Transaminitis: (4) Alcoholic cirrhosis of liver without ascites: Appears compensated, continue to recommend strict cessation Transaminitis 2/2 etoh abuse - Tbili 1.4, AST 156, ALT 138, alk phos 248 Hepatitis panel added Monitor daily LFTs -LFTs are getting better (5) Hyponatremia: Na 126, likely pseudohyponatremia but corrects to 130 Monitor daily (6) DM (diabetes mellitus), type 2: Uncontrolled with A1c 9.3 in November 2023 Initial BSG 350, receiving IV fluids now her glucose monitor showing improvement at 270 Considered early stages of DKA but VBG reassuring in normal range Glycemic consult placed given complication of etoh withdrawal BSG AC HS appreciate glycemic pharmacist input and recommendation (7) Anxiety: (8) Depression: Given missed dose of buspirone Continue buspirone, escitalopram, trazodone DVT Ppx: SQ lovenox Code status: FULL PCP: [facility] Dispo: Admit to PCU Total Time Total Time Spent Total Time Spent (In Minutes): 40 minutes Discharge Plan Discharge Items Patient Disposition: Drug & Alcohol Rehab Reason For Visit: ETOH WITHDRAWAL Discharge Diagnosis: Alcohol abuse, type 2 diabetes, anxiety/depression, alcoholic cirrhosis compensated Condition on Discharge: Fair Activity: Resume your previous activity Non-emergency contact: Primary Care Provider Call non-emergency contact if: you have any medication questions and your symptoms worsen Follow-up/Referrals: Krystin Graves MD [Primary Care Provider] - (Date & Time 02/26/2024 11:00 AM Provider Krystin Graves MD [facility] ) Diet: Carb Consistent or DM2 Addtl Attending Provider Instructions: Please take precautions to avoid falls Please make an appointment with your PCP within 7 days following discharge from the facility Strongly advised to quit drinking of alcohol Pending Studies at Discharge: No Stand-Alone Forms: My [employer], Work/School Release Skilled Items Patient informed of condition?: Yes DNR: No Discharge Level of Care: Acute rehab Communicable Disease: No Discharge Prognosis: Stable Lines: None Urinary Catheter: No Medications and DC Order Prescriptions: New thiamine HCl (vitamin B1) 100 mg Tablet 100 mg PO QAM Qty: 30 0RF folic acid 1 mg Tablet 1 mg PO QAM Qty: 30 0RF Continued fluticasone propion-salmeterol [Advair Diskus] 250-50 mcg/dose blister with device 1 inh inhalation QAM albuterol sulfate [Ventolin HFA] 90 mcg/actuation Hfa Aerosol Inhaler 2 puff INHALATION UD PRN (Reason: Shortness Of Breath) Rx Instructions: Inhale 2 puffs by mouth 4 times daily PRN for SOB/wheezing. buspirone 10 mg tablet 20 mg PO TID Rx Instructions: Take 2 Tablets by mouth in the morning and 2 Tablets at noon and 2 Tablets before bedtime. trazodone 50 mg tablet 50 mg PO QPM escitalopram oxalate 10 mg tablet 10 mg PO QAM (DME) pen needle, diabetic [BD Ultra-Fine Gertrude Pen Needle] 32 gauge x 5/32" needle MISCELLANEOUS Rx Instructions: Use to inject insulin 4 times daily. Fiasp FlexTouch U-100 Insulin 100 unit/mL (3 mL) insulin pen 4 - 5 unit SUBCUT TID Rx Instructions: Inject 5 units under the skin before breakfast, 4 units with lunch, and 4 units with dinner. insulin glargine-yfgn [Semglee(insulin glarg-yfgn)Pen] 100 unit/mL (3 mL) insulin pen 32 unit SUBCUT QAM lorazepam 0.5 mg tablet 0.5 mg PO TID PRN (Reason: Anxiety) zinc acetate 50 mg (zinc) Capsule 50 mg PO DAILY [id number]-minerals Tablet 1 tab PO DAILY Discharge Orders: Discharge Order (Routine); Ordered 02/21/24 Ordered By: Brett Vasquez Admission Data Admit Date/Time: 02/17/24 16:07 Attending Provider: Brett Vasquez Admit Provider: Nubia Yao Primary Care Provider: Krystin Graves Other Providers: Nubia Yao
== END 2024-02-21 10:58 | disposition alcohol treatment (31) | DRG 897 ==
LOC: ED 13:20 → EDINP 16:07 → SUATTDRO 16:07 → 2E 20:47

== ENCOUNTER 2024-04-28 22:12 | Inpatient (IN) ==
[2024-04-28 22:49] LABS: Basophils # (auto) 0.06 K/uL (0.00-0.20); Basophils % (auto) 0.7 %; Eosinophils # (auto) 0.01 K/uL (0.00-0.50); Eosinophils % (auto) 0.1 %; Hematocrit (blood only) 42.8 % (37.0-47.0); Hemoglobin 15.5 g/dl (12.0-16.0); Immature Granulocytes # (auto) 0.02 K/uL (0.01-0.20); Immature Granulocytes % (auto) 0.2 %; Lymphocytes # (auto) 3.71 K/uL (1.20-3.40); Mean Corpuscular Hemoglobin 30.5 pg (25.0-34.0); Mean Corpuscular Hgb Conc 36.2 g/dL (32.0-36.0); Mean Corpuscular Volume 84.1 fL (80.0-100.0); Mean Platelet Volume 9.2 fL (9.4-12.4); Monocytes # (auto) 0.38 K/uL (0.11-0.59); Monocytes % (auto) 4.2 %; Neutrophils # (auto) 4.86 K/uL (1.40-6.50); Neutrophils % (auto) 53.8 %; Platelet Count 244 K/uL (130-400); RDW Coefficient of Variation 12.7 % (11.5-14.5); RDW Standard Deviation 38.7 fL (36.4-46.3); Red Blood Count 5.09 M/uL (4.20-5.40); White Blood Count 9.04 K/ul (4.8-10.8)
[2024-04-28 23:06] LABS: Pregnancy Test, Serum Negative (Negative)
[2024-04-28 23:12] LABS: Albumin Globulin Ratio 1.6 (0.9-2); Albumin Level 4.7 gm/dl (3.4-5.0); BUN Creatinine Ratio 20.5 (10-20); Calcium 10.2 mg/dl (8.6-10.3); Creatinine Clr Calc Pharmacy 80.9 ml/min; Globulin 2.9 gm/dl (2.5-4.0); Magnesium 2.1 mg/dl (1.7-2.4); Potassium 4.5 mmol/L (3.5-5.1); Total Protein 7.6 gm/dl (6.0-8.3)
[2024-04-28 23:13] LABS: Troponin I High Sensitivity 4.1 pg/ml (0-14)
[2024-04-28 23:47] LABS: INR 1.2 (0.9-1.1); Prothrombin Time 12.5 Seconds (9.0-12.0)
[2024-04-28] MEDS: OPTIRAY 320 100ml IV ONE (23:57)
[2024-04-28] MEDS: LACTATED RINGER'S 1,000 ML IV ONE (23:59)
--- NOTE | 2024-04-29 00:37 | Emergency Department Note ---
Impression & Plan CHI (closed head injury), Alcohol abuse, Alcohol intoxication, Frequent falls, Contusion of multiple sites, Hyperglycemia, Noncompliance ED Provider Note ED Provider Note NAME: ARIC GRANT AGE:48 SEX: Female : 1975 ARRIVES VIA: EMS INFORMANT: Patient ED PROVIDER(s): Elvia Jane DO CHIEF COMPLAINT: Concern for falls and alcohol abuse during a well check HPI: This is a 48-year-old female brought in by EMS after family members requested a well check and police found patient lying on the floor stating that she had fallen several times. Patient admits to ongoing alcohol use and states she drank vodka and fell. She states she has been falling a lot recently and did at one point strike her head. Patient denies any headaches, neck or back pain, chest pain, abdominal pain. She states she has "lots of bruises". She denies vomiting or trouble breathing. She states her last drink was an hour prior to arrival. PAST MEDICAL HISTORY:See Below PAST SURGICAL HISTORY:See Below FAMILY HISTORY:See Below SOCIAL HISTORY:See Below HOME MEDICATIONS:See Below ALLERGIES:See Below VITALS:See Below PHYSICAL EXAMINATION: GENERAL: alert, well appearing, well nourished, no distress, non-toxic HEAD: nc/at, no lopez signs or raccoon eyes EYE EXAM: normal conjunctiva, PERRL and EOM's grossly intact OROPHARYNX: no exudate, no erythema, lips, buccal mucosa, and tongue normal and mucous membranes are dry NECK: supple, no nuchal rigidity, no adenopathy, non-tender, FROM LUNGS: Clear to auscultation. Normal chest wall mechanics, no w/r/r HEART: no murmurs, S1 normal and S2 normal ABDOMEN: abdomen soft, non-tender, normo-active bowel sounds, no masses, no rebound or guarding. Area of resolving ecchymosis noted to the left flank. BACK: Back is symmetrical on inspection and there is no deformity, no midline tenderness, no CVA tenderness. Area of ecchymosis noted to the left flank and left low back SKIN: no rashes, petechiae, orbruising UPPER EXTREMITIES: upper extremities are grossly normal. FROM, nml pulses b/l. Multiple areas of ecchymosis in various stages of healing. LOWER EXTREMITIES: No pitting edema. FROM, nml pulses b/l. Multiple areas of ecchymosis in various stages of healing. NEURO EXAM: Normal sensorium, cranial nerves II-XII grossly intact, normal speech, no facial droop,nogross weakness of arms, no gross weakness of legs. Gross sensation intact. No ataxia. Vital Signs: reviewed and remarkable Differential Diagnosis: alcohol intoxication, substance abuse, hypoglycemia, electrolyte abnormalities, dysrhythmia, dehydration, CHI, ICH, as well as others were entertained. MEDICAL DECISION MAKING: This is a 48-year-old female with a history of alcohol abuse who presents emergency department after a well check was performed and patient found intoxicated on the floor of her residence admitting to frequent recent falls including striking her head and 1 of these events. She was afebrile vital signs stable on arrival. Labs drawn and sent, IV established, EKG performed at bedside interpreted by me and patient monitored on telemetry. Patient started on IV fluids as she did appear clinically dehydrated. Patient sent for CT of the head, C-spine, chest, abdomen/pelvis due to multiple bruises in various stages and patient's clinical intoxication limiting history. Patient's labs and imaging reassuring. She was noted to have hyperglycemia and an anion gap although I suspect her anion gap is less likely from of her DKA and likely from a combination of noncompliance with her diabetes medications, dehydration, and alcoholic ketoacidosis. Patient was hydrated here and repeat CMP checked and was already showing improvement. Patient was given 1 mg of Ativan to help both with nausea and mild tremors that were noted. No ectopy or dysrhythmia noted on telemetry. Patient reexamined multiple times throughout the course of her time in the emergency department. Patient monitored for several hours here and had no significantly worsening withdrawal symptoms. Patient does live alone. We did discuss her current social circumstances, ongoing risk associated with her alcohol abuse and other medical comorbidities. Patient is concerned for evolving withdrawal symptoms that she has previously required ICU level admission for alcohol withdrawal. Given patient is high risk for more severe alcohol withdrawal, and has poor social support at this time, I do feel additional inpatient management is reasonable. Case discussed with the hospitalist team for additional evaluation and management. Consultation(s): 0338: Discussed with Dr. Verdin, [facility] hospitalist team, for additional evaluation and mgmt. ER Treatment Provided: See below Diagnostics Interpreted By Me: -ECG: Sinus tachycardia at 112, normal axis, normal intervals, no acute ST/T wave changes -Cardiac Monitoring: An order was placed for continuous cardiac monitoring. The monitor shows a rate of 108 with sinus tachycardia rhythm. -Laboratory studies: As stated above and show below. -Imaging studies: ct head: no ich Triage Nursing Note Reviewed Prior/Outside Records Reviewed Critical Care: Critical care of 44 min performed to assess and manage high likelihood of life- threatening trauma and alcohol abuse, involving labs and imaging performed with assessment to evaluate trauma and alcohol intoxication diagnosis with frequent reassessment. This time includes bedside time, treatment discussions with patient/family/consultants, documentation time and excludes procedure time. Past Med/Surg History Problem List Noncompliance (Acute) Hyperglycemia (Acute) Contusion of multiple sites (Acute) Frequent falls (Acute) Alcohol intoxication (Acute) Alcohol abuse (Acute) CHI (closed head injury) (Acute) Acute hyponatremia (Acute) Acute hyperglycemia (Acute) Tachycardia (Acute) Alcohol withdrawal (Acute) Alcohol abuse (Acute) Hyponatremia Vomiting (Acute) Alcohol abuse (Acute) Suicidal ideation (Acute) Alcohol withdrawal (Acute) Diabetes type 2, controlled Alcohol use disorder, moderate, dependence Alcohol abuse (Acute) Mood disorder (Acute) History of suicidal ideation MDD (major depressive disorder), recurrent, in partial remission Suicidal ideation (Acute) Alcohol withdrawal (Acute) DKA (diabetic ketoacidosis) (Acute) History of asthma History of alcohol abuse History of recent fall Alcohol dependence (Acute) Alcohol withdrawal (Acute) Hypophosphatemia DKA (diabetic ketoacidosis) (Acute) Depression with suicidal ideation DKA, type 1 Polycythemia Hypercalcemia Metabolic acidosis due to diabetes mellitus Splenomegaly Hepatic steatosis Anxiety (Acute) Alcoholic hepatitis Nausea and vomiting (Acute) Elevated LFTs (Acute) Depression (Acute) Asthma Neutropenia Gram-positive cocci bacteremia Abscess Metabolic encephalopathy REG (acute kidney injury) Vomiting Elevated LFTs Weakness (Acute) Acute pancreatitis (Acute) REG (acute kidney injury) (Acute) DKA (diabetic ketoacidoses) (Acute) Coffee ground emesis (Acute) Hyperglycemia Alcoholism (Acute) Discharge planning issues MRSA (methicillin resistant Staphylococcus aureus) carrier Acute renal failure (ARF) Electrolyte and fluid disorder Anemia Acute upper GI hemorrhage Urinary tract infection Hypophosphatemia (Acute) Hypokalemia (Acute) Lactic acidosis (Acute) Hypoalbuminemia (Acute) Edema Elevated INR (Acute) Acute liver failure (Acute) Coagulopathy Elevated LFTs (Acute) Tachycardia (Acute) Alcohol abuse (Acute) Asthma Cirrhosis (Acute) GERD (gastroesophageal reflux disease) Abnormal TSH Leukopenia DVT prophylaxis Diabetes Alcohol abuse (Acute) Tremor (Acute) Leukocytopenia, unspecified Thrombocytopenia Anemia Diabetes Pancytopenia Anxiety (Chronic) Alcohol abuse (Acute) Medical History Transaminitis DM (diabetes mellitus), type 2 Alcoholic cirrhosis of liver without ascites Tachycardia Acute alcoholic pancreatitis Suicidal ideation Hypophosphatemia Hypomagnesemia Metabolic acidosis Thrush Alcoholic intoxication Thrombocytopenia Alcohol withdrawal Acute alcoholic hepatitis Acidosis, metabolic Acute pancreatitis Electrolyte abnormality DVT prophylaxis Alcohol withdrawal Asthma Surgical History History of dental surgery wisdom teeth History of esophagogastroduodenoscopy (EGD) Family History Father Prediabetes Grandfather (Paternal) Diabetes Mother Hypertension MVP (mitral valve prolapse) Social History Smoking Status: Never smoker Tobacco Type: Cigarettes Age Quit Using Tobacco: 39; packs per day: 1; Second Hand Exposure: No; Do You Dip or Chew Tobacco: No; Hx Alcohol Use: Yes Alcohol type: hard liquor Alcohol type Comment: 4 glasses wine daily Hx Substance Use: No Preferred Language: [place] Island[place] Communication Ability: Effective Visual Impairment: No Limitations Hygiene Coordinator Required: No Beliefs That Will Affect Care: None marital status: marital status details: Single parent Current Living Situation: Alone Current Living Situation Comment: daughter current occupational status: unemployed How many Children do You have: 1 Feels Safe at Home: Yes Childhood Exposure to Second-Hand Smoke: No Gender Identity: Female Assistive Devices: None Allergies Allergies Allergy/AdvReac Type Severity Reaction Status Date / Time doxycycline Allergy Severe Muscle Pain Verified 11/26/23 08:30 theophylline AdvReac Intermediate VERTIGO Verified 11/26/23 08:30 Home Meds Home Medications Medication Instructions Recorded Confirmed fluticasone 250 mcg-salmeterol 50 1 inh inhalation QAM 02/27/19 04/29/24 mcg/dose blistr powdr for inhalation (Advair Diskus) albuterol sulfate 90 mcg/actuation 2 puff inhalation UD PRN Shortness 07/23/19 04/29/24 aerosol inhaler (Ventolin HFA) Of Breath buspirone 10 mg tablet 20 mg PO TID 04/22/22 04/29/24 escitalopram oxalate 10 mg tablet 10 mg PO QAM 11/26/23 04/29/24 insulin aspart 4 - 5 unit subcut TID 11/26/23 04/29/24 (niacinamide)(U-100) 100 unit/mL(3 mL) subcutaneous pen (Fiasp FlexTouch U-100 Insulin) insulin glargine-yfgn 100 unit/mL 32 unit subcut QAM 11/26/23 04/29/24 (3 mL) subcutaneous pen (Semglee (insulin glargine-yfgn) Pen) pen needle, diabetic 32 gauge x 11/26/23 04/29/24 5/32" (BD Ultra-Fine Gertrude Pen Needle) trazodone 50 mg tablet 50 mg PO QPM 11/26/23 04/29/24 zinc acetate 50 mg (zinc) capsule 50 mg PO DAILY 12/01/23 04/29/24 hydroxyzine HCl 50 mg tablet 50 mg DIRECTED PRN Anxiety 04/29/24 04/29/24 Previous Rx's Medication Instructions Recorded folic acid 1 mg tablet 1 mg PO QAM #30 tabs 02/21/24 thiamine HCl (vitamin B1) 100 mg 100 mg PO QAM #30 tabs 02/21/24 tablet Results & Data (ED) Vital Signs Vital Signs - 24 hr 04/29/24 03:30 04/29/24 04:03 Pulse Rate 98 H 102 H Pulse Rate from SpO2 Sensor 98 H 101 H Respiratory Rate 24 18 Blood Pressure 125/90 Blood Pressure Mean 101 Pulse Oximetry 90 98 Laboratory Data 04/28/24 22:28 04/29/24 02:05 Lab Results 04/28/24 04/28/24 04/29/24 Range/Units 22:28 22:40 02:05 WBC 9.04 (4.8-10.8) K/ul RBC 5.09 (4.20-5.40) M/uL Hgb 15.5 (12.0-16.0) g/dl Hct 42.8 (37.0-47.0) % MCV 84.1 (80.0-100.0) fL MCH 30.5 (25.0-34.0) pg MCHC 36.2 H (32.0-36.0) g/dL RDW Std Deviation 38.7 (36.4-46.3) fL RDW Coeff of Suzanne 12.7 (11.5-14.5) % Plt Count 244 (130-400) K/uL MPV 9.2 L (9.4-12.4) fL Immature Gran % (Auto) 0.2 % Neut % (Auto) 53.8 % Lymph % (Auto) 41.0 % [place] % (Auto) 4.2 % Eos % (Auto) 0.1 % Baso % (Auto) 0.7 % Neut # (Auto) 4.86 (1.40-6.50) K/uL Lymph # (Auto) 3.71 H (1.20-3.40) K/uL [place] # (Auto) 0.38 (0.11-0.59) K/uL Eos # (Auto) 0.01 (0.00-0.50) K/uL Baso # (Auto) 0.06 (0.00-0.20) K/uL Immature Gran # (Auto) 0.02 (0.01-0.20) K/uL PT 12.5 H (9.0-12.0) Seconds INR 1.2 H (0.9-1.1) Sodium 131 L 133 L (136-145) mmol/L Potassium 4.5 4.0 (3.5-5.1) mmol/L Chloride 89 L 93 L (98-107) mmol/L Carbon Dioxide 20 L 20 L (21-32) mmol/L Anion Gap 22 H 20 H (3-11) BUN 16 15 (6-23) mg/dl Creatinine 0.78 0.73 (0.6-1.2) mg/dl Est Cr Clr Drug Dosing 80.9 86.4 ml/min eGFR 93.63 101.38 BUN/Creatinine Ratio 20.5 H 20.5 H (10-20) Glucose 358 H* 229 H (70-99(Fasting)) mg/dl POC Glucose 331 H* (70-99) mg/dl Calcium 10.2 9.9 (8.6-10.3) mg/dl Magnesium 2.1 2.0 (1.7-2.4) mg/dl Total Bilirubin 1.0 0.8 (0.2-1.0) mg/dl AST 121 H 111 H (13-39) U/L ALT 108 H 103 H (7-52) U/L Alkaline Phosphatase 255 H 240 H (34-104) U/L Total Creatine Kinase 227 H (26-192) U/L Troponin I High Sens 4.1 (0-14) pg/ml Total Protein 7.6 7.2 (6.0-8.3) gm/dl Albumin 4.7 4.4 (3.4-5.0) gm/dl Globulin 2.9 2.8 (2.5-4.0) gm/dl Albumin/Globulin Ratio 1.6 1.6 (0.9-2) Lipase 28 (11-82) U/L Procalcitonin 0.07 (0-0.5) ng/ml HCG, Qual Negative (Negative) Ethyl Alcohol mg/dL 361.0 H (<10.0) mg/dl 04/29/24 04/29/24 Range/Units 02:17 03:49 WBC (4.8-10.8) K/ul RBC (4.20-5.40) M/uL Hgb (12.0-16.0) g/dl Hct (37.0-47.0) % MCV (80.0-100.0) fL MCH (25.0-34.0) pg MCHC (32.0-36.0) g/dL RDW Std Deviation (36.4-46.3) fL RDW Coeff of Suzanne (11.5-14.5) % Plt Count (130-400) K/uL MPV (9.4-12.4) fL Immature Gran % (Auto) % Neut % (Auto) % Lymph % (Auto) % Bosque % (Auto) % Eos % (Auto) % Baso % (Auto) % Neut # (Auto) (1.40-6.50) K/uL Lymph # (Auto) (1.20-3.40) K/uL [place] # (Auto) (0.11-0.59) K/uL Eos # (Auto) (0.00-0.50) K/uL Baso # (Auto) (0.00-0.20) K/uL Immature Gran # (Auto) (0.01-0.20) K/uL PT (9.0-12.0) Seconds INR (0.9-1.1) Sodium (136-145) mmol/L Potassium (3.5-5.1) mmol/L Chloride (98-107) mmol/L Carbon Dioxide (21-32) mmol/L Anion Gap (3-11) BUN (6-23) mg/dl Creatinine (0.6-1.2) mg/dl Est Cr Clr Drug Dosing ml/min eGFR BUN/Creatinine Ratio (10-20) Glucose (70-99(Fasting)) mg/dl POC Glucose 218 H 206 H (70-99) mg/dl Calcium (8.6-10.3) mg/dl Magnesium (1.7-2.4) mg/dl Total Bilirubin (0.2-1.0) mg/dl AST (13-39) U/L ALT (7-52) U/L Alkaline Phosphatase (34-104) U/L Total Creatine Kinase (26-192) U/L Troponin I High Sens (0-14) pg/ml Total Protein (6.0-8.3) gm/dl Albumin (3.4-5.0) gm/dl Globulin (2.5-4.0) gm/dl Albumin/Globulin Ratio (0.9-2) Lipase (11-82) U/L Procalcitonin (0-0.5) ng/ml HCG, Qual (Negative) Ethyl Alcohol mg/dL (<10.0) mg/dl Administered Medications Buspirone HCl (Buspirone 5 Mg Tab) 20 mg PO TID [facility] Stop: 05/29/24 08:59 Last Admin: 04/29/24 19:26 Dose: 20 mg Documented By: Admin: 04/29/24 14:04 Dose: 20 mg Documented By: Admin: 04/29/24 10:51 Dose: 20 mg Documented By: NEAL Escitalopram Oxalate (Escitalopram Oxalate 10 Mg Tab) 10 mg PO QAM ARMANI Stop: 05/29/24 08:59 Last Admin: 04/29/24 10:51 Dose: 10 mg Documented By: NEAL Fluticasone/Vilanterol (Fluticasone/Vilanterol 200/25mcg 14 Puffs/Inhaler) 1 puffs INH DAILY [facility] Stop: 05/29/24 08:59 Last Admin: 04/29/24 10:52 Dose: 1 puffs Documented By: NEAL Insulin Aspart (Insulin Aspart Per Unit Charge) 0 units SC 0000,0400 ARMANI Stop: 05/30/24 00:00 Last Admin: 04/29/24 23:59 Dose: 1 units Documented By: COREY Co-signed By: ACO Insulin Aspart (Insulin Aspart Per Unit Charge) 0 units SC ACHS ARMANI Stop: 05/29/24 20:59 Last Admin: 04/29/24 21:52 Dose: 4 units Documented By: COREY Co-signed By: [id number] Lorazepam (Lorazepam 2 Mg/1 Ml Vial) 1 mg IV UD PRN; Protocol PRN Reason: EtOH Withdrawal AWSS Score 6,7 Stop: 05/29/24 04:09 Last Admin: 04/29/24 19:27 Dose: 1 mg Documented By: Admin: 04/29/24 12:40 Dose: 1 mg Documented By: Admin: 04/29/24 04:54 Dose: 1 mg Documented By: EZE Trazodone HCl (Trazodone Hcl 50 Mg Tab) 50 mg PO QPM ARMANI Stop: 05/29/24 20:59 Last Admin: 04/29/24 19:27 Dose: 50 mg Documented By: COREY Discontinued Medications Folic Acid (Folic Acid 1 Mg Tab) 1 mg PO NOW STA Stop: 04/29/24 01:22 Last Admin: 04/29/24 01:53 Dose: 1 mg Documented By: Gabapentin (Gabapentin 600 Mg Tab) 1,200 mg PO NOW ONE Stop: 04/29/24 04:11 Last Admin: 04/29/24 04:54 Dose: 1,200 mg Documented By: EZE Gabapentin (Gabapentin 600 Mg Tab) 600 mg PO Q6H ARMANI Stop: 04/29/24 18:01 Last Admin: 04/29/24 18:41 Dose: 600 mg Documented By: Admin: 04/29/24 12:43 Dose: 600 mg Documented By: NEAL Lactated Ringer's (Lr) 1,000 mls @ 999 mls/hr IV .Q1H1M ONE Stop: 04/29/24 00:19 Last Infusion: 04/29/24 01:11 Dose: Infused Documented By: Admin: 04/28/24 23:59 Dose: 999 mls/hr Documented By: Thiamine HCl 100 mg/ Syringe 10 mls @ 2 mls/min IV NOW STA Stop: 04/29/24 01:25 Last Admin: 04/29/24 01:51 Dose: 2 mls/min Documented By: Lactated Ringer's (Lr) 1,000 mls @ 999 mls/hr IV .Q1H1M ONE Stop: 04/29/24 02:37 Last Infusion: 04/29/24 04:17 Dose: Infused Documented By: Admin: 04/29/24 01:53 Dose: 999 mls/hr Documented By: Pantoprazole Sodium (Protonix) 40 mg in 10 mls @ 5 mls/min IV NOW ONE Stop: 04/29/24 01:52 Last Admin: 04/29/24 03:51 Dose: 5 mls/min Documented By: EZE Lactated Ringer's (Lr) 1,000 mls @ 125 mls/hr IV .Q8H ARMANI Stop: 04/30/24 03:29 Last Infusion: 04/29/24 16:34 Dose: Infused Documented By: Infusion: 04/29/24 06:00 Dose: 0 mls/hr Documented By: Admin: 04/29/24 03:58 Dose: 125 mls/hr Documented By: EZE Lactated Ringer's (Lr) 1,000 mls @ 100 mls/hr IV .Q10H ONE Stop: 04/29/24 14:01 Last Infusion: 04/29/24 16:31 Dose: Infused Documented By: Admin: 04/29/24 06:00 Dose: 100 mls/hr Documented By: EZE Promethazine HCl (Phenergan) 6.25 mg in 50.25 mls @ 201 mls/hr IV NOW STA Stop: 04/29/24 04:28 Last Infusion: 04/29/24 05:28 Dose: Infused Documented By: Admin: 04/29/24 04:54 Dose: 201 mls/hr Documented By: EZE Insulin Aspart (Insulin Aspart Per Unit Charge) 0 units SC ACHS ARMANI Stop: 05/29/24 09:52 Last Admin: 04/29/24 14:02 Dose: 18 units Documented By: NEAL Co-signed By: MOODY Admin: 04/29/24 11:02 Dose: 11 units Documented By: NEAL Co-signed By: MOODY Insulin Glargine (Lantus Per Unit Charge) 10 units SQ BID ARMANI Stop: 05/29/24 08:59 Last Admin: 04/29/24 11:01 Dose: 10 units Documented By: NEAL Co-signed By: MOODY Insulin Glargine (Lantus Per Unit Charge) 10 units SQ ONE ONE Stop: 04/29/24 12:46 Last Admin: 04/29/24 14:02 Dose: 10 units Documented By: NEAL Co-signed By: MOODY Insulin Human Regular (Novolin-R Insulin Per Unit Charge) 4 units IV NOW STA Stop: 04/29/24 01:10 Last Admin: 04/29/24 01:35 Dose: 4 units Documented By: Co-signed By: NIR Insulin Human Regular (Novolin-R Insulin Per Unit Charge) 2 units IV NOW STA Stop: 04/29/24 03:14 Last Admin: 04/29/24 03:51 Dose: 2 units Documented By: EZE Co-signed By: GIANCARLO Ioversol (Optiray 320 100ml) 100 ml IV ONCE ONE Stop: 04/28/24 23:54 Last Admin: 04/28/24 23:57 Dose: 93 ml Documented By: TAYE Lorazepam (Lorazepam 1 Mg/1 Ml Syr Ed Inj Use) 1 mg IV ONE STA Stop: 04/29/24 01:52 Last Admin: 04/29/24 02:01 Dose: 1 mg Documented By: Imaging Data Radiologist's Impression: Abdomen/Pelvis CT 04/28/24 22:28 EXAM: CT abd pelvis IV con only CLINICAL HISTORY: Pt arrived by EMS after pt was found drunk at home. Per EMS pt''s mother called for them to do a welless check because she had not heard from her for 3 days. Pt reports that she had fallen multiple times. Just D/C from rehab in feb. Pt is a DM and BSG was 325. 93 ML OPTIRAY 320 INPATIENT TECHNIQUE: Contiguous axial images were obtained from the level of the diaphragm to the pubic symphysis with intravenous contrast. Coronal and sagittal reconstructions were likewise performed and indicated to increase the sensitivity for detecting clinically relevant pathology. If IV contrast material had not been administered, the likelihood of detecting abnormalities relevant to the patient's condition would have been substantially decreased. CT scan was performed according to ALARA (as low as reasonable achievable). COMPARISON: 10 june 2021. FINDINGS: The visualized lung bases are clear. The liver is enlarged, measuring 23.6 cm in craniocaudal span, with diffuse hypoattenuation. No focal liver lesions are seen. There is no intra or extrahepatic biliary ductal dilatation. Hepatic vasculature is patent. The gallbladder is unremarkable. The pancreas demonstrates multiple parenchymal calcifications with main pancreatic duct dilatation measuring up to 4 mm in diameter. The spleen and adrenal glands are unremarkable. The right kidney is normal in size and attenuation. Left kidney shows a tiny concretion in the middle calyx. There is no hydronephrosis or perinephric fat stranding. The ureters are normal in caliber. The bladder is normal in contour. No focal or diffuse bowel wall thickening or evidence of bowel obstruction is identified. The appendix is visualized in the right lower quadrant and appears within normal limits. No adenopathy or fluid collections are seen. The aorta is normal in caliber. No aggressive appearing osseous lesions are identified. IMPRESSION: 1. Massive hepatomegaly with hepatic steatosis - stable. 2. Findings of chronic pancreatitis including pancreatic parenchymal calcifications and main pancreatic duct dilatation - interval change compared to previous study. 3. Tiny left renal calyceal concretion - stable. Electronically signed by Tahir Del Castillo 04-29-2024 12:[address] 04/28/24 22:28 EXAM: CT cervical spine wo con CLINICAL HISTORY: Pt arrived by EMS after pt was found drunk at home. Per EMS pt''s mother called for them to do a welless check because she had not heard from her for 3 days. Pt reports that she had fallen multiple times. Just D/C from rehab in feb. Pt is a DM and BSG was 325. INPATIENT TECHNIQUE: CT scan of the cervical spine was performed without the administration of intravenous contrast. Contiguous axial images were obtained from the skull base to the upper thoracic spine. Coronal and sagittal reformatted images were also reviewed. One of the following dose reduction techniques was utilized for this exam. Automated exposure control, adjustment of the mA and/or kV according to patient size, and use of iterative reconstruction. COMPARISON: This examination has been compared with prior CT dated, 01/23/2021 FINDINGS: Vertebrae: Straightening of cervical curvature is identified. Degenerative changes are identified in cervical spine with multilevel osteophytes along vertebral endplates The vertebral bodies are normal in height. Mild retrolisthesis seen at C3-C4 No evidence of acute fracture or dislocation. The cortical and trabecular bone patterns are normal. No signs of lytic or sclerotic lesions. Normal configuration of the posterior elements. Intervertebral Discs: The intervertebral disc spaces are preserved. At C2-C3 small disc bulge measuring 1.5 cm causing thecal sac indentation however no neural foraminal stenosis bilaterally. At C3-C4 2.2 mm disc with osteophytes causing mild effacement of thecal sac and mild bilateral neural foraminal narrowing more marked on the left side. At C4-C5, 2.0 mm with osteophytes causing thecal sac indentation and mild bilateral neural foraminal narrowing more marked on the left side. At C5-C6 2.4 mm disc with osteophytes causing mild effacement of thecal sac and mild bilateral neural foraminal narrowing No calcifications or ossifications noted within the discs. Facet Joints: The facet joints are normal without evidence of dislocation, subluxation, or significant degenerative changes. Prevertebral Soft Tissues: The prevertebral soft tissues are normal in thickness without evidence of mass or abnormal fluid collection. Additional Findings: No other significant findings are noted in the visualized soft tissue structures or bony elements. IMPRESSION: 1. No evidence of acute fracture. 2. Small disc bulges at C2-C3, C3-C4, C4-C5 and C5-C6, with no significant spinal canal or neural foraminal compromise. Mild progression of disc osteophyte at C5-C6 level in comparison to the prior examination 3. Cervical spondylosis, and mild retrolisthesis seen at C3-C4. This was also present in prior examination Electronically signed by Jeronimo Slater 04-29-2024 01:[address] 04/28/24 22:28 EXAM: CT chest diagnostic w con CLINICAL HISTORY: Pt arrived by EMS after pt was found drunk at home. Per EMS pt''s mother called for them to do a welless check because she had not heard from her for 3 days. Pt reports that she had fallen multiple times. Just D/C from rehab in feb. Pt is a DM and BSG was 325. 93 ML OPTIRAY 320 INPATIENT TECHNIQUE: Contiguous axial CT images of the right upper extremity were obtained with intravenous contrast. Coronal and sagittal reconstructions were likewise performed and indicated to increase the sensitivity for detecting clinically relevant pathology. If IV contrast material had not been administered, the likelihood of detecting abnormalities relevant to the patient's condition would have been substantially decreased. CT scan was performed according to ALARA (as low as reasonable achievable). COMPARISON: CT chest dated 23 JANUARY 2021. FINDINGS: The lungs are clear, with no focal areas of consolidation. No pulmonary nodules are seen. The central airways are patent. There are no pleural effusions. No pneumothorax is seen. No axillary, hilar, or mediastinal adenopathy is identified. The visualized thyroid is unremarkable. The heart and pulmonary arteries are of normal size and configuration. Bovine configuration of the aortic arch noted as a normal anatomic variant. No pericardial effusion is identified. Imaged portions of the upper abdomen show diffuse hepatic hypoattenuation. Other visualized upper abdominal organs are unremarkable. No aggressive appearing osseous lesions are identified. IMPRESSION: 1. No significant lung parenchymal abnormality. Electronically signed by Tahir Del Castillo 04-29-2024 12:[address] 04/28/24 22:28 EXAM: CT head/brain wo con CLINICAL HISTORY: Pt arrived by EMS after pt was found drunk at home. Per EMS pt''s mother called for them to do a welless check because she had not heard from her for 3 days. Pt reports that she had fallen multiple times. Just D/C from rehab in feb. Pt is a DM and BSG was 325. INPATIENT TECHNIQUE: Multiple axial images are obtained from the skull base to the vertex without contrast. CT scan was performed according to ALARA (as low as reasonably achievable). COMPARISON: 11/26/2023 10:16:06 ASSIGNMENT MANAGER FINDINGS: The brain shows normal morphology, attenuation, and volume for age. No evidence of space occupying lesion, hemorrhage, edema, mass effect, midline shift, extra axial collection, or hydrocephalus is noted. Ventricles, sulci, and basal cisterns are symmetric and normal in size and configuration. The shine-white matter differentiation is preserved. Visualized paranasal sinuses and mastoid air cells are well aerated. Orbital contents are within normal limits. Bony structures are intact. IMPRESSION: 1. No evidence of acute intracranial abnormality is demonstrated. 2. No significant interval change seen since prior study. Electronically signed by Tahir Del Castillo 04-29-2024 12:48 AM Discharge Plan Visit Data Chief Complaint: Trauma Stated Complaint: ALCOHOL INTOX ED Provider: Elvia Jane Discharge Problem: CHI (closed head injury), Alcohol abuse, Alcohol intoxication, Frequent falls, Contusion of multiple sites, Hyperglycemia, Noncompliance Patient Disposition: Admitted As Inpatient Discharge Instructions Interventions: ED Discharge Assessment Last Done: 04/29/24 08:20
--- NOTE | 2024-04-29 00:46 | CT Scan Report ---
EXAM: CT chest diagnostic w con CLINICAL HISTORY: Pt arrived by EMS after pt was found drunk at home. Per EMS pt''s mother called for them to do a welless check because she had not heard from her for 3 days. Pt reports that she had fallen multiple times. Just D/C from rehab in feb. Pt is a DM and BSG was 325. 93 ML OPTIRAY 320 INPATIENT TECHNIQUE: Contiguous axial CT images of the right upper extremity were obtained with intravenous contrast. Coronal and sagittal reconstructions were likewise performed and indicated to increase the sensitivity for detecting clinically relevant pathology. If IV contrast material had not been administered, the likelihood of detecting abnormalities relevant to the patient's condition would have been substantially decreased. CT scan was performed according to ALARA (as low as reasonable achievable). COMPARISON: CT chest dated 23 JANUARY 2021. FINDINGS: The lungs are clear, with no focal areas of consolidation. No pulmonary nodules are seen. The central airways are patent. There are no pleural effusions. No pneumothorax is seen. No axillary, hilar, or mediastinal adenopathy is identified. The visualized thyroid is unremarkable. The heart and pulmonary arteries are of normal size and configuration. Bovine configuration of the aortic arch noted as a normal anatomic variant. No pericardial effusion is identified. Imaged portions of the upper abdomen show diffuse hepatic hypoattenuation. Other visualized upper abdominal organs are unremarkable. No aggressive appearing osseous lesions are identified. IMPRESSION: 1. No significant lung parenchymal abnormality. Electronically signed by Tahir Del Castillo 04-29-2024 12:46 AM
--- NOTE | 2024-04-29 00:48 | CT Scan Report ---
EXAM: CT head/brain wo con CLINICAL HISTORY: Pt arrived by EMS after pt was found drunk at home. Per EMS pt''s mother called for them to do a welless check because she had not heard from her for 3 days. Pt reports that she had fallen multiple times. Just D/C from rehab in feb. Pt is a DM and BSG was 325. INPATIENT TECHNIQUE: Multiple axial images are obtained from the skull base to the vertex without contrast. CT scan was performed according to ALARA (as low as reasonably achievable). COMPARISON: 11/26/2023 10:16:06 LEAD ATHLETE FINDINGS: The brain shows normal morphology, attenuation, and volume for age. No evidence of space occupying lesion, hemorrhage, edema, mass effect, midline shift, extra axial collection, or hydrocephalus is noted. Ventricles, sulci, and basal cisterns are symmetric and normal in size and configuration. The shine-white matter differentiation is preserved. Visualized paranasal sinuses and mastoid air cells are well aerated. Orbital contents are within normal limits. Bony structures are intact. IMPRESSION: 1. No evidence of acute intracranial abnormality is demonstrated. 2. No significant interval change seen since prior study. Electronically signed by Tahir Del Castillo 04-29-2024 12:48 AM
--- NOTE | 2024-04-29 00:57 | CT Scan Report ---
EXAM: CT abd pelvis IV con only CLINICAL HISTORY: Pt arrived by EMS after pt was found drunk at home. Per EMS pt''s mother called for them to do a welless check because she had not heard from her for 3 days. Pt reports that she had fallen multiple times. Just D/C from rehab in feb. Pt is a DM and BSG was 325. 93 ML OPTIRAY 320 INPATIENT TECHNIQUE: Contiguous axial images were obtained from the level of the diaphragm to the pubic symphysis with intravenous contrast. Coronal and sagittal reconstructions were likewise performed and indicated to increase the sensitivity for detecting clinically relevant pathology. If IV contrast material had not been administered, the likelihood of detecting abnormalities relevant to the patient's condition would have been substantially decreased. CT scan was performed according to ALARA (as low as reasonable achievable). COMPARISON: 10 june 2021. FINDINGS: The visualized lung bases are clear. The liver is enlarged, measuring 23.6 cm in craniocaudal span, with diffuse hypoattenuation. No focal liver lesions are seen. There is no intra or extrahepatic biliary ductal dilatation. Hepatic vasculature is patent. The gallbladder is unremarkable. The pancreas demonstrates multiple parenchymal calcifications with main pancreatic duct dilatation measuring up to 4 mm in diameter. The spleen and adrenal glands are unremarkable. The right kidney is normal in size and attenuation. Left kidney shows a tiny concretion in the middle calyx. There is no hydronephrosis or perinephric fat stranding. The ureters are normal in caliber. The bladder is normal in contour. No focal or diffuse bowel wall thickening or evidence of bowel obstruction is identified. The appendix is visualized in the right lower quadrant and appears within normal limits. No adenopathy or fluid collections are seen. The aorta is normal in caliber. No aggressive appearing osseous lesions are identified. IMPRESSION: 1. Massive hepatomegaly with hepatic steatosis - stable. 2. Findings of chronic pancreatitis including pancreatic parenchymal calcifications and main pancreatic duct dilatation - interval change compared to previous study. 3. Tiny left renal calyceal concretion - stable. Electronically signed by Tahir Del Castillo 04-29-2024 12:57 AM
--- NOTE | 2024-04-29 01:34 | CT Scan Report ---
EXAM: CT cervical spine wo con CLINICAL HISTORY: Pt arrived by EMS after pt was found drunk at home. Per EMS pt''s mother called for them to do a welless check because she had not heard from her for 3 days. Pt reports that she had fallen multiple times. Just D/C from rehab in feb. Pt is a DM and BSG was 325. INPATIENT TECHNIQUE: CT scan of the cervical spine was performed without the administration of intravenous contrast. Contiguous axial images were obtained from the skull base to the upper thoracic spine. Coronal and sagittal reformatted images were also reviewed. One of the following dose reduction techniques was utilized for this exam. Automated exposure control, adjustment of the mA and/or kV according to patient size, and use of iterative reconstruction. COMPARISON: This examination has been compared with prior CT dated, 01/23/2021 FINDINGS: Vertebrae: Straightening of cervical curvature is identified. Degenerative changes are identified in cervical spine with multilevel osteophytes along vertebral endplates The vertebral bodies are normal in height. Mild retrolisthesis seen at C3-C4 No evidence of acute fracture or dislocation. The cortical and trabecular bone patterns are normal. No signs of lytic or sclerotic lesions. Normal configuration of the posterior elements. Intervertebral Discs: The intervertebral disc spaces are preserved. At C2-C3 small disc bulge measuring 1.5 cm causing thecal sac indentation however no neural foraminal stenosis bilaterally. At C3-C4 2.2 mm disc with osteophytes causing mild effacement of thecal sac and mild bilateral neural foraminal narrowing more marked on the left side. At C4-C5, 2.0 mm with osteophytes causing thecal sac indentation and mild bilateral neural foraminal narrowing more marked on the left side. At C5-C6 2.4 mm disc with osteophytes causing mild effacement of thecal sac and mild bilateral neural foraminal narrowing No calcifications or ossifications noted within the discs. Facet Joints: The facet joints are normal without evidence of dislocation, subluxation, or significant degenerative changes. Prevertebral Soft Tissues: The prevertebral soft tissues are normal in thickness without evidence of mass or abnormal fluid collection. Additional Findings: No other significant findings are noted in the visualized soft tissue structures or bony elements. IMPRESSION: 1. No evidence of acute fracture. 2. Small disc bulges at C2-C3, C3-C4, C4-C5 and C5-C6, with no significant spinal canal or neural foraminal compromise. Mild progression of disc osteophyte at C5-C6 level in comparison to the prior examination 3. Cervical spondylosis, and mild retrolisthesis seen at C3-C4. This was also present in prior examination Electronically signed by Jeronimo Slater 04-29-2024 01:34 AM
[2024-04-29] MEDS: NovoLIN-R INSULIN PER UNIT CHARGE IV STA ×2 (01:35→03:51)
[2024-04-29] MEDS: THIAMINE HCL 100 MG in SYRINGE 9 ML IV STA (01:51)
[2024-04-29] MEDS: LACTATED RINGER'S 1,000 ML IV ONE ×2 (01:53→06:00)
[2024-04-29] MEDS: FOLIC ACID 1 MG TAB PO STA (01:53)
[2024-04-29] MEDS: LORazepam 1 MG/1 ML SYR ED Inj Use IV STA (02:01)
[2024-04-29 02:39] LABS: Albumin Globulin Ratio 1.6 (0.9-2); Albumin Level 4.4 gm/dl (3.4-5.0); BUN Creatinine Ratio 20.5 (10-20); Bilirubin,Total 0.8 mg/dl (0.2-1.0); Calcium 9.9 mg/dl (8.6-10.3); Creatinine Clr Calc Pharmacy 86.4 ml/min; Globulin 2.8 gm/dl (2.5-4.0); Total Protein 7.2 gm/dl (6.0-8.3)
[2024-04-29] MEDS ORDERED: LORazepam 2 MG/1 ML VIAL IV PRN ×3 (03:27→04:10)
[2024-04-29] MEDS: PANTOprazole 40 MG/10 ML SYR IV ONE (03:51)
[2024-04-29] MEDS: LACTATED RINGER'S 1,000 ML IV SCH (03:58)
--- NOTE | 2024-04-29 04:07 | History & Physical Report ---
Date of Service April 29, 2024 Assessment & Plan (1) Alcohol withdrawal: Plan: Alcohol withdrawal Syncope possibly from orthostasis given borderline BP rule out arrhythmia/obstructive valvular pathology asthma/mild COPD as per records, not in acute exacerbation alcoholic cirrhosis, compensated Alcoholic hepatitis, good prognosis with Maddrey's DF score of of 3.1 points DM2 insulin requiring, suboptimal control as of recent hemoglobin A1c of 9.3 last November 2023 chronic hyponatremia anxiety/mood disorder, suboptimal mood, denies suicidality Bilateral leg discomfort rule out DVT past tobacco abuse Alcohol withdrawal Alcoholic hepatitis, good prognosis with Maddrey's DF of less than 10 past tobacco abuse mood disorder, suboptimal depression Medical telemetry JAMESON S, DT precautions Check orthostatic vitals, TTE for syncope workup Psych consult RE depression LE venous Dopplers rule out DVT Basal bolus insulin adjusted for clear liquid diet for now given nausea dry heaving symptoms, ISS BG goal 1 10-1 40, carb count coverage DVT prophylaxis. SCDs if no blood clot on LE venous Dopplers given thrombocytopenia Full code Patient request for mother to be given updates regarding care. Ms. Laura Martinezyonis, contact #[phone]. Text document was generated using [employer] voice recognition software. It may contain grammatical or spelling errors. Kindly contact undersigned for clarification of any documentation item in question. History of Present Illness Chief Complaint: Falling Primary Care Provider: Krystin Graves MD History obtained from patient and records. Medical history significant for asthma/mild COPD as per records, alcoholic cirrhosis, DM2 insulin requiring, chronic hyponatremia, anxiety/mood disorder, MRSA, past tobacco abuse Last confinement February 2024 for alcohol abuse. Patient discharged to [place] rehab facility. Patient started drinking again upon return home. Admits to depression, denies suicidality. Patient with unwitnessed falls at home over the last few days. Possible syncope. Mild headache from head trauma following a fall. Denies chest pain, SOB, abdominal pain. Usual cough symptoms. Denies tongue biting or incontinence symptoms. Patient complaining of bilateral leg tingling discomfort not pain. Nausea, dry heaving symptoms without abdominal pain. Family requested police to do a well check on patient at home last night. Patient found on the floor. Patient brought to the ER for evaluation. Medical History as above Surgical History : Dental surgery Family History : Alcoholism, heart disease, dementia, prostate cancer Personal/Social history : Past tobacco abuse, ongoing alcohol abuse, unemployed Allergies Allergy/AdvReac Type Severity Reaction Status Date / Time doxycycline Allergy Severe Muscle Pain Verified 11/26/23 08:30 theophylline AdvReac Intermediate VERTIGO Verified 11/26/23 08:30 Home Medications Medication Instructions Recorded Confirmed Type fluticasone 250 mcg-salmeterol 50 1 inh inhalation QAM 02/27/19 04/29/24 History mcg/dose blistr powdr for inhalation (Advair Diskus) albuterol sulfate 90 mcg/actuation 2 puff inhalation UD PRN Shortness 07/23/19 04/29/24 History aerosol inhaler (Ventolin HFA) Of Breath buspirone 10 mg tablet 20 mg PO TID 04/22/22 04/29/24 History escitalopram oxalate 10 mg tablet 10 mg PO QAM 11/26/23 04/29/24 History insulin aspart 4 - 5 unit subcut TID 11/26/23 04/29/24 History (niacinamide)(U-100) 100 unit/mL(3 mL) subcutaneous pen (Fiasp FlexTouch U-100 Insulin) insulin glargine-yfgn 100 unit/mL 32 unit subcut QAM 11/26/23 04/29/24 History (3 mL) subcutaneous pen (Semglee (insulin glargine-yfgn) Pen) pen needle, diabetic 32 gauge x 11/26/23 04/29/24 History 5/32" (BD Ultra-Fine Gertrude Pen Needle) trazodone 50 mg tablet 50 mg PO QPM 11/26/23 04/29/24 History zinc acetate 50 mg (zinc) capsule 50 mg PO DAILY 12/01/23 04/29/24 History folic acid 1 mg tablet 1 mg PO QAM #30 tabs 02/21/24 04/29/24 Rx thiamine HCl (vitamin B1) 100 mg 100 mg PO QAM #30 tabs 02/21/24 04/29/24 Rx tablet hydroxyzine HCl 50 mg tablet 50 mg DIRECTED PRN Anxiety 04/29/24 04/29/24 History Past Med/Surg History Problem List Contusion of multiple sites (Acute) Frequent falls (Acute) Alcohol intoxication (Acute) Alcohol abuse (Acute) CHI (closed head injury) (Acute) Acute hyponatremia (Acute) Acute hyperglycemia (Acute) Tachycardia (Acute) Alcohol withdrawal (Acute) Alcohol abuse (Acute) Hyponatremia Vomiting (Acute) Alcohol abuse (Acute) Suicidal ideation (Acute) Alcohol withdrawal (Acute) Diabetes type 2, controlled Alcohol use disorder, moderate, dependence Alcohol abuse (Acute) Mood disorder (Acute) History of suicidal ideation MDD (major depressive disorder), recurrent, in partial remission Suicidal ideation (Acute) Alcohol withdrawal (Acute) DKA (diabetic ketoacidosis) (Acute) History of asthma History of alcohol abuse History of recent fall Alcohol dependence (Acute) Alcohol withdrawal (Acute) Hypophosphatemia DKA (diabetic ketoacidosis) (Acute) Depression with suicidal ideation DKA, type 1 Polycythemia Hypercalcemia Metabolic acidosis due to diabetes mellitus Splenomegaly Hepatic steatosis Anxiety (Acute) Alcoholic hepatitis Nausea and vomiting (Acute) Elevated LFTs (Acute) Depression (Acute) Asthma Neutropenia Gram-positive cocci bacteremia Abscess Metabolic encephalopathy REG (acute kidney injury) Vomiting Elevated LFTs Weakness (Acute) Acute pancreatitis (Acute) REG (acute kidney injury) (Acute) DKA (diabetic ketoacidoses) (Acute) Coffee ground emesis (Acute) Hyperglycemia Alcoholism (Acute) Discharge planning issues MRSA (methicillin resistant Staphylococcus aureus) carrier Acute renal failure (ARF) Electrolyte and fluid disorder Anemia Acute upper GI hemorrhage Urinary tract infection Hypophosphatemia (Acute) Hypokalemia (Acute) Lactic acidosis (Acute) Hypoalbuminemia (Acute) Edema Elevated INR (Acute) Acute liver failure (Acute) Coagulopathy Elevated LFTs (Acute) Tachycardia (Acute) Alcohol abuse (Acute) Asthma Cirrhosis (Acute) GERD (gastroesophageal reflux disease) Abnormal TSH Leukopenia DVT prophylaxis Diabetes Alcohol abuse (Acute) Tremor (Acute) Leukocytopenia, unspecified Thrombocytopenia Anemia Diabetes Pancytopenia Anxiety (Chronic) Alcohol abuse (Acute) Medical History Transaminitis DM (diabetes mellitus), type 2 Alcoholic cirrhosis of liver without ascites Tachycardia Acute alcoholic pancreatitis Suicidal ideation Hypophosphatemia Hypomagnesemia Metabolic acidosis Thrush Alcoholic intoxication Thrombocytopenia Alcohol withdrawal Acute alcoholic hepatitis Acidosis, metabolic Acute pancreatitis Electrolyte abnormality DVT prophylaxis Alcohol withdrawal Asthma Surgical History History of dental surgery wisdom teeth History of esophagogastroduodenoscopy (EGD) Family History Father Prediabetes Grandfather (Paternal) Diabetes Mother Hypertension MVP (mitral valve prolapse) Social History Smoking Status: Never smoker Tobacco Type: Cigarettes Age Quit Using Tobacco: 39; packs per day: 1; Second Hand Exposure: No; Do You Dip or Chew Tobacco: No; Hx Alcohol Use: Yes Alcohol type: hard liquor Alcohol type Comment: 4 glasses wine daily Hx Substance Use: No Preferred Language: Lao Communication Ability: Effective Visual Impairment: No Limitations Tag Clerk Required: No Beliefs That Will Affect Care: None marital status: marital status details: Single parent Current Living Situation: Alone Current Living Situation Comment: daughter current occupational status: unemployed How many Children do You have: 1 Feels Safe at Home: Yes Childhood Exposure to Second-Hand Smoke: No Gender Identity: Female Assistive Devices: Glasses Review of Systems Review of Systems: As per HPI, all other systems reviewed and negative Physical Exam Physical Exam: GENERAL: Slightly uncomfortable, tremulous, dry heaving, no respiratory distress SKIN: Normal color, warm, scattered contusions HEENT: Waterproof palpebral conjunctivae, no ptosis, dry buccal mucosa NECK : Supple, no tenderness CHEST : Decreased breath sounds, no tenderness HEART : RRR, no obvious murmurs ABDOMEN: Some distention, nontender EXTREMITIES : No LE swelling/tenderness, no other conspicuous deformities noted NEUROLOGIC : Coherent, no facial asymmetry, tremulous, no other gross focality Results & Data Results & Data Vital Signs (Past 12 Hours) Vital Signs Temp Pulse Pulse Resp BP BP Pulse Ox 04/29/24 02:56 96 H 18 109/76 90 04/29/24 02:02 108 H 18 143/81 H 94 04/29/24 01:00 36.5 C 102 H 18 137/84 95 04/29/24 00:00 102 H 18 132/87 96 04/28/24 23:19 98 H 18 121/84 96 04/28/24 22:37 114 H 04/28/24 22:31 36.8 C 108 H 18 96 04/28/24 22:31 36.8 C 112 H 19 128/85 96 04/28/24 22:20 96 04/28/24 22:20 37.8 C H 110 H 20 138/89 96 O2 Del Method 04/29/24 02:56 Room Air 04/29/24 02:02 Room Air 04/29/24 01:00 Room Air 04/29/24 00:00 Room Air 04/28/24 23:19 Room Air 04/28/24 22:37 04/28/24 22:31 Room Air 04/28/24 22:31 Room Air 04/28/24 22:20 Room Air 04/28/24 22:20 Room Air Laboratory Results Laboratory Results WBC 9.04 K/ul (4.8-10.8) 04/28/24 22:28 RBC 5.09 M/uL (4.20-5.40) 04/28/24 22:28 Hgb 15.5 g/dl (12.0-16.0) 04/28/24 22:28 Hct 42.8 % (37.0-47.0) 04/28/24 22:28 MCV 84.1 fL (80.0-100.0) 04/28/24 22:28 MCH 30.5 pg (25.0-34.0) 04/28/24 22:28 MCHC 36.2 g/dL (32.0-36.0) H 04/28/24 22:28 RDW Std Deviation 38.7 fL (36.4-46.3) 04/28/24 22:28 RDW Coeff of Suzanne 12.7 % (11.5-14.5) 04/28/24 22:28 Plt Count 244 K/uL (130-400) 04/28/24 22:28 MPV 9.2 fL (9.4-12.4) L 04/28/24 22:28 Immature Gran % (Auto) 0.2 % 04/28/24 22:28 Neut % (Auto) 53.8 % 04/28/24 22:28 Lymph % (Auto) 41.0 % 04/28/24 22:28 [place] % (Auto) 4.2 % 04/28/24 22:28 Eos % (Auto) 0.1 % 04/28/24 22:28 Baso % (Auto) 0.7 % 04/28/24 22:28 Neut # (Auto) 4.86 K/uL (1.40-6.50) 04/28/24 22:28 Lymph # (Auto) 3.71 K/uL (1.20-3.40) H 04/28/24 22:28 [place] # (Auto) 0.38 K/uL (0.11-0.59) 04/28/24 22:28 Eos # (Auto) 0.01 K/uL (0.00-0.50) 04/28/24 22:28 Baso # (Auto) 0.06 K/uL (0.00-0.20) 04/28/24 22:28 Immature Gran # (Auto) 0.02 K/uL (0.01-0.20) 04/28/24 22: PT 12.5 Seconds (9.0-12.0) H 04/28/24 22: INR 1.2 (0.9-1.1) H 04/28/24 22:28 Sodium 133 mmol/L (136-145) L 04/29/24 02:05 Potassium 4.0 mmol/L (3.5-5.1) 04/29/24 02:05 Chloride 93 mmol/L (98-107) L 04/29/24 02:05 Carbon Dioxide 20 mmol/L (21-32) L 04/29/24 02:05 Anion Gap 20 (3-11) H 04/29/24 02:05 BUN 15 mg/dl (6-23) 04/29/24 02:05 Creatinine 0.73 mg/dl (0.6-1.2) 04/29/24 02:05 Est Cr Clr Drug Dosing 86.4 ml/min 04/29/24 02:05 eGFR 101.38 04/29/24 02:05 BUN/Creatinine Ratio 20.5 (10-20) H 04/29/24 02:05 Glucose 229 mg/dl (70-99(Fasting)) H 04/29/24 02:05 POC Glucose 206 mg/dl (70-99) H 04/29/24 03:49 Calcium 9.9 mg/dl (8.6-10.3) 04/29/24 02:05 Magnesium 2.1 mg/dl (1.7-2.4) 04/28/24 22:28 Total Bilirubin 0.8 mg/dl (0.2-1.0) 04/29/24 02:05 AST 111 U/L (13-39) H 04/29/24 02:05 ALT 103 U/L (7-52) H 04/29/24 02:05 Alkaline Phosphatase 240 U/L (34-104) H 04/29/24 02:05 Troponin I High Sens 4.1 pg/ml (0-14) 04/28/24 22:28 Total Protein 7.2 gm/dl (6.0-8.3) 04/29/24 02:05 Albumin 4.4 gm/dl (3.4-5.0) 04/29/24 02:05 Globulin 2.8 gm/dl (2.5-4.0) 04/29/24 02:05 Albumin/Globulin Ratio 1.6 (0.9-2) 04/29/24 02:05 Lipase 28 U/L (11-82) 04/28/24 22:28 HCG, Qual Negative (Negative) 04/28/24 22:28 Ethyl Alcohol mg/dL 361.0 mg/dl (<10.0) H 04/28/24 22:28 Impressions Abdomen/Pelvis CT 04/28/24 22:28 EXAM: CT abd pelvis IV con only CLINICAL HISTORY: Pt arrived by EMS after pt was found drunk at home. Per EMS pt''s mother called for them to do a welless check because she had not heard from her for 3 days. Pt reports that she had fallen multiple times. Just D/C from rehab in feb. Pt is a DM and BSG was 325. 93 ML OPTIRAY 320 INPATIENT TECHNIQUE: Contiguous axial images were obtained from the level of the diaphragm to the pubic symphysis with intravenous contrast. Coronal and sagittal reconstructions were likewise performed and indicated to increase the sensitivity for detecting clinically relevant pathology. If IV contrast material had not been administered, the likelihood of detecting abnormalities relevant to the patient's condition would have been substantially decreased. CT scan was performed according to ALARA (as low as reasonable achievable). COMPARISON: 10 june 2021. FINDINGS: The visualized lung bases are clear. The liver is enlarged, measuring 23.6 cm in craniocaudal span, with diffuse hypoattenuation. No focal liver lesions are seen. There is no intra or extrahepatic biliary ductal dilatation. Hepatic vasculature is patent. The gallbladder is unremarkable. The pancreas demonstrates multiple parenchymal calcifications with main pancreatic duct dilatation measuring up to 4 mm in diameter. The spleen and adrenal glands are unremarkable. The right kidney is normal in size and attenuation. Left kidney shows a tiny concretion in the middle calyx. There is no hydronephrosis or perinephric fat stranding. The ureters are normal in caliber. The bladder is normal in contour. No focal or diffuse bowel wall thickening or evidence of bowel obstruction is identified. The appendix is visualized in the right lower quadrant and appears within normal limits. No adenopathy or fluid collections are seen. The aorta is normal in caliber. No aggressive appearing osseous lesions are identified. IMPRESSION: 1. Massive hepatomegaly with hepatic steatosis - stable. 2. Findings of chronic pancreatitis including pancreatic parenchymal calcifications and main pancreatic duct dilatation - interval change compared to previous study. 3. Tiny left renal calyceal concretion - stable. Electronically signed by Tahir Del Castillo 04-29-2024 12:[address] 04/28/24 22:28 EXAM: CT cervical spine wo con CLINICAL HISTORY: Pt arrived by EMS after pt was found drunk at home. Per EMS pt''s mother called for them to do a welless check because she had not heard from her for 3 days. Pt reports that she had fallen multiple times. Just D/C from rehab in feb. Pt is a DM and BSG was 325. INPATIENT TECHNIQUE: CT scan of the cervical spine was performed without the administration of intravenous contrast. Contiguous axial images were obtained from the skull base to the upper thoracic spine. Coronal and sagittal reformatted images were also reviewed. One of the following dose reduction techniques was utilized for this exam. Automated exposure control, adjustment of the mA and/or kV according to patient size, and use of iterative reconstruction. COMPARISON: This examination has been compared with prior CT dated, 01/23/2021 FINDINGS: Vertebrae: Straightening of cervical curvature is identified. Degenerative changes are identified in cervical spine with multilevel osteophytes along vertebral endplates The vertebral bodies are normal in height. Mild retrolisthesis seen at C3-C4 No evidence of acute fracture or dislocation. The cortical and trabecular bone patterns are normal. No signs of lytic or sclerotic lesions. Normal configuration of the posterior elements. Intervertebral Discs: The intervertebral disc spaces are preserved. At C2-C3 small disc bulge measuring 1.5 cm causing thecal sac indentation however no neural foraminal stenosis bilaterally. At C3-C4 2.2 mm disc with osteophytes causing mild effacement of thecal sac and mild bilateral neural foraminal narrowing more marked on the left side. At C4-C5, 2.0 mm with osteophytes causing thecal sac indentation and mild bilateral neural foraminal narrowing more marked on the left side. At C5-C6 2.4 mm disc with osteophytes causing mild effacement of thecal sac and mild bilateral neural foraminal narrowing No calcifications or ossifications noted within the discs. Facet Joints: The facet joints are normal without evidence of dislocation, subluxation, or significant degenerative changes. Prevertebral Soft Tissues: The prevertebral soft tissues are normal in thickness without evidence of mass or abnormal fluid collection. Additional Findings: No other significant findings are noted in the visualized soft tissue structures or bony elements. IMPRESSION: 1. No evidence of acute fracture. 2. Small disc bulges at C2-C3, C3-C4, C4-C5 and C5-C6, with no significant spinal canal or neural foraminal compromise. Mild progression of disc osteophyte at C5-C6 level in comparison to the prior examination 3. Cervical spondylosis, and mild retrolisthesis seen at C3-C4. This was also present in prior examination Electronically signed by Jeronimo Slater 04-29-2024 01:[address] 04/28/24 22:28 EXAM: CT chest diagnostic w con CLINICAL HISTORY: Pt arrived by EMS after pt was found drunk at home. Per EMS pt''s mother called for them to do a welless check because she had not heard from her for 3 days. Pt reports that she had fallen multiple times. Just D/C from rehab in feb. Pt is a DM and BSG was 325. 93 ML OPTIRAY 320 INPATIENT TECHNIQUE: Contiguous axial CT images of the right upper extremity were obtained with intravenous contrast. Coronal and sagittal reconstructions were likewise performed and indicated to increase the sensitivity for detecting clinically relevant pathology. If IV contrast material had not been administered, the likelihood of detecting abnormalities relevant to the patient's condition would have been substantially decreased. CT scan was performed according to ALARA (as low as reasonable achievable). COMPARISON: CT chest dated 23 JANUARY 2021. FINDINGS: The lungs are clear, with no focal areas of consolidation. No pulmonary nodules are seen. The central airways are patent. There are no pleural effusions. No pneumothorax is seen. No axillary, hilar, or mediastinal adenopathy is identified. The visualized thyroid is unremarkable. The heart and pulmonary arteries are of normal size and configuration. Bovine configuration of the aortic arch noted as a normal anatomic variant. No pericardial effusion is identified. Imaged portions of the upper abdomen show diffuse hepatic hypoattenuation. Other visualized upper abdominal organs are unremarkable. No aggressive appearing osseous lesions are identified. IMPRESSION: 1. No significant lung parenchymal abnormality. Electronically signed by Tahir Del Castillo 04-29-2024 12:[address] 04/28/24 22:28 EXAM: CT head/brain wo con CLINICAL HISTORY: Pt arrived by EMS after pt was found drunk at home. Per EMS pt''s mother called for them to do a welless check because she had not heard from her for 3 days. Pt reports that she had fallen multiple times. Just D/C from rehab in feb. Pt is a DM and BSG was 325. INPATIENT TECHNIQUE: Multiple axial images are obtained from the skull base to the vertex without contrast. CT scan was performed according to ALARA (as low as reasonably achievable). COMPARISON: 11/26/2023 10:16:06 PIPELINE [employer] SUPER[employer] FINDINGS: The brain shows normal morphology, attenuation, and volume for age. No evidence of space occupying lesion, hemorrhage, edema, mass effect, midline shift, extra axial collection, or hydrocephalus is noted. Ventricles, sulci, and basal cisterns are symmetric and normal in size and configuration. The shine-white matter differentiation is preserved. Visualized paranasal sinuses and mastoid air cells are well aerated. Orbital contents are within normal limits. Bony structures are intact. IMPRESSION: 1. No evidence of acute intracranial abnormality is demonstrated. 2. No significant interval change seen since prior study. Electronically signed by Tahir Del Castillo 04-29-2024 12:48 AM Diagnostic Findings EKG as per my interpretation : Rate 110, sinus tachycardia, normal axis, no ischemia (1) Alcohol withdrawal Complication of substance-induced condition: with unspecified complication Qualified Code(s): F10.939 - Alcohol use, unspecified with withdrawal, unspecified
[2024-04-29] MEDS ORDERED: ACETAMINOPHEN 500 MG TAB PO PRN (04:10)
[2024-04-29] MEDS ORDERED: oxyCODONE HCL IR 5 MG TAB (IMMEDIATE RELEASE) PO PRN (04:10)
[2024-04-29] MEDS ORDERED: GABAPENTIN 1200MG ALCOHOL WITHDRAWAL LOAD PO STA (04:10)
[2024-04-29] MEDS ORDERED: Ativan IV Alcohol Withdrawal--Active Protocol IV PRN (04:10)
[2024-04-29] MEDS ORDERED: PROMETHAZINE 6.25 MG/50.25 ML BAG IV PRN (04:10)
[2024-04-29] MEDS ORDERED: hydrOXYzine HCl 25 MG TAB PO PRN (04:14)
[2024-04-29] MEDS: PROMETHAZINE 6.25 MG/50.25 ML BAG IV STA (04:54)
[2024-04-29] MEDS: GABAPENTIN 600 MG TAB PO ONE (04:54)
[2024-04-29] MEDS: LORazepam 2 MG/1 ML VIAL IV PRN (04:54)
[2024-04-29] MEDS ORDERED: DEXTROSE 50% 50 ML SYRINGE IV PRN ×2 (06:00→09:53)
[2024-04-29] MEDS ORDERED: GLUCOSE 10 TAB/TUBE PO PRN ×2 (06:00→09:53)
[2024-04-29] MEDS ORDERED: GLUCOSE 40% GEL 15 GM TUBE PO PRN ×2 (06:00→09:53)
[2024-04-29] MEDS ORDERED: CARBOHYDRATES FOR HYPOGLYCEMIA PO PRN ×2 (06:00→09:53)
[2024-04-29] MEDS ORDERED: GLUCAGON FOR INJ 1 MG VIAL SQ PRN ×2 (06:00→09:53)
[2024-04-29 06:36] LABS: Appearance Urine Clear (Clear); Bacteria Urine Automated None Seen (None Seen); Bilirubin Urine Negative (Negative); Blood Urine Negative (Negative); Cast Urine Automated 0-2 /lpf (0-2); Color Urine Yellow; Epithelial Cell Urine Auto 0-2 /hpf (0-2); Glucose Urine UA 3+ (Negative); Ketones Urine 3+ (Negative); Leukocyte Esterase Urine Trace (Negative); Nitrite Urine Negative (Negative); Protein Urine 1+ (Negative); RBC Urine Automated 0-2 /hpf (0-2); Specific Gravity Urine > 1.045 (1.000-1.030); Urobilinogen Urine Negative (Negative); WBC Urine Automated 0-5 /hpf (0-5); pH Urine 6.5 (4.5-7.5)
[2024-04-29 06:53] LABS: Amphetamines+Metham, Urine Neg (Neg); Barbiturates, Urine Neg (Neg); Benzodiazepine, Urine Neg (Neg); Cocaine, Urine Neg (Neg); Fentanyl, Urine Neg (Neg); MDMA (Ecstacy), Urine Neg (Neg); Marijuana, Urine Neg (Neg); Methadone, Urine Neg (Neg); Opiate, Urine Neg (Neg); Phencyclidine, Urine Neg (Neg)
--- NOTE | 2024-04-29 08:14 | Ultrasound Report ---
BILATERAL LOWER EXTREMITY VENOUS DOPPLER CLINICAL HISTORY: leg discomfort COMPARISON STUDY: Bilateral lower extremity venous Doppler ultrasound May 26, 2020. TECHNIQUE: Sonography of the deep venous system of the bilateral lower extremities was performed. Co mpression and augmentation were evaluated. FINDINGS: The bilateral common femoral, superficial femoral and popliteal veins were compressible. A ugmentation was normal. Flow was shown within the deep calf vessels. IMPRESSION: No evidence of deep venous thrombus within the bilateral lower extremities. ACT 112: Negative or not required by law. Electronically signed by: Kishore Brown M.D. 04/29/2024 8:12 AM
--- OUTSIDE RECORDS SUMMARY | 2024-04-29 08:54 | External Medical Summary | Summary of Care ---
Author Name Unknown Organization [facility] Address [address] [place] [address] Phone [phone] Care Team Providers Care Tech Writer Name Role Phone Sugar Graves MD Primary Care Provid er Reason for Visit * Reason Onset Date Comments Medication Refill 04/09/2024 Encounter Details Date Type Department Care Team (Late st Contact Info) Description 04/09/2024 Refill Pharmacy, [place] [address] [place] [address] Sugar Graves MD [address] [place] [address] DM type 2, not at goal (HCC) Allergies Active Allergy Reactions Criticality Noted Date Comments Doxycycline High 07/15/2023 arthralgia Theophylline 04/30/2002 anxiety Theophylline Sodium Glycinate 2004 nervous documented as of this encounter (statuses as of 04/09/2024) Medications Medication Sig Dispensed Refills Start Date [...] Patient not taking.Reported on 07/12/2023 FreeStyle [place] Lite w/Device KitIndications:DM type 2, not at goal ([facility]) Use to check sugars daily. E 11.9 1 Kit 04/16/2023 Active Triamcinolone Acetonide 55 MCG/ACT Nasal Aerosol (Nasacort Allergy 24HR) Administer into nostril as needed for Rhinitis. Active Zinc 20 MG Oral Capsule Take [...] a day.. 54 g 3 10/16/2023 Active Montelukast Sodium 10 MG Oral Tablet (Singulair)Indicati ons:Moderate persistent asthma without complication Take 1 Tablet by mouth at bedtime. 90 Tablet 3 12/05/2023 Active Naltrexone HCl 50 MG Oral Tablet [...] needed for Anxiety. 15 Tablet 02/09/2024 Active Fiasp FlexTouch 100 UNIT/ML Subcutaneous Solution Pen-injector (Insulin Aspart (w/Niacinamide))Ind ications:DM type 2, not at goal ([facility]) Inject 5 units under the skin before breakfast, 4 units with lunch, and 4 units with dinner. 15 mL 3 03/16/2024 Active FreeStyle Beth 3 SensorIndications:D M type 2, not at goal ([facility]) Use as directed. Replace sensors every 14 days. 6 Each 04/06/2024 Active Escitalopram Oxalate 20 MG Oral Tablet (Lexapro)Indication s:Anxiety,Primary insomnia Take 1 Tablet by mouth in the morning. 90 Tablet 1 04/06/2024 Active traZODone HCl 100 MG Oral Tablet (Desyrel)Indication s:Anxiety,Primary insomnia Take 1 Tablet by mouth at bedtime. 90 Tablet 1 04/06/2024 Active hydrOXYzine HCl 50 MG Oral TabletIndications:A nxiety Take 1 Tablet by mouth every 8 hours as needed for Anxiety (insomnia). 90 Tablet 3 04/06/2024 Active Insulin Glargine-yfgn 100 UNIT/ML Subcutaneous Solution Pen-injector (Semglee (yfgn))Indications: DM type 2, not at goal (HCC) Inject 32 Units under the skin in the morning. 30 mL 04/09/2024 Active Insulin Glargine-yfgn 100 UNIT/ML Subcutaneous Solution Pen-injector (Semglee (yfgn))Indications: DM type 2, not at goal (HCC) Inject 32 Units under the skin in the morning. Dose increase. 30 mL 3 11/20/2023 4 Discontinu ed(Refill) documented as of this encounter (statuses as of 04/09/2024) Active Problems Problem Noted Date Diagnosed Date [...] as of this encounter (statuses as of 04/09/2024) Resolved Problems Problem Noted Date Diagnosed Date [...] as of this encounter (statuses as of 04/09/2024) Immunizations Name Administration Dates Next Due COVID-19 mRNA, LNP-s, No Pre serve, 2-Dose Series ([employer]) 04/17/2021,08/22/2020 Covid-19, Mrna, Lnp-s, Pf, B ivalent, 30 Mcg, IM, 12 yrs and above ([employer]) 03/20/2022,09/25/2021 Hepatitis B, 20+ yrs 03/05/2021 Pneumococcal Conjugate Vacci ne, 20-valent ([id number]) 02/20/2023 Pneumococcal Polysaccharide PPV23 (Pneumovax) 03/19/2018 Seasonal Influenza Vac., MDV , IM, 0.5 mL (Fluzone) 03/15/2014,03/31/2013,05/04/2012,04/30 Seasonal Influenza Virus Vac cine, Unspecified Formulation 04/22/2019,03/19/2018,04/07/2017,03/15,03/31/2013,05/04/2012,04/30/2006 ,05/08/2005,05/11/2003,05/05/2002 Seasonal Influenza, PF, 6 M & above, IM , (FluLaval or Fluzone) 03/13/2020,04/22/2019,03/19/2018 Seasonal Influenza, Quadrivalent, ID 04/07/2017 Seasonal Influenza, Quadriva lent, No Preserve, IM 04/06/2015 Seasonal Influenza, Trivalen t, (IIV3), PF, (Fluzone) 04/01/2024 TD - Tetanus/Diptheria (ADULT) 10/09/2005 TD, Preservative [...] encounter Miscellaneous Notes * Telephone Encounter - Day Rosario RPh - 04/09/2024 8:53 AM EDT Signed Prescriptions: Disp Refills Insulin Glargine-yfgn 100 UNIT/ML Subcutan*30 mL 0 Sig: Inject 32 Units under the skin in the morning.Authorizing Provider: SUGAR GRAVES User: DAY ROSARIO documented in this encounter Plan of Treatment Health Maintenance Due Date Last Done Comments Depression Monitoring 08/03/2020 08/03/2019 Cologuard 11/18/2020 Colonoscopy 11/18/2020 Colorectal Cancer Screening 11/18/2020 Fecal Occult Blood Test 11/18/2020 Sigmoidoscopy 11/18/2020 Hepatitis B Vaccine (2 of 3 - 19+ 3-dose series) 04/02/2021 03/05/2021 DTap/Tdap Vaccines (2 - Td or Tdap) 09/01/2023 08/31/2013, 10/09/2005, 10/09/2005, Additional history exists Albumin/Creatinine Ratio 10/22/2023 10/21/2022 Diabetic Foot Exam 10/22/2023 10/21/2022, 06/14/2020 Mammogram 01/14/2024 01/13/2023, 12/22, 02/09/2018, Additional history exists HbA1c 04/14/2024 10/14/2023, 01/2024, 08/02/2022, Additional history exists Diabetic Eye Exam 07/29/2024 07/29/2023, 02/23/2022 GFR 11/11/2024 11/12/2023, 10/22, 10/14/2023, Additional history exists Pap Smear 01/03/2026 01/03/2023, 09/2016, 09/24/2016, Additional history exists Lipid Panel 08/02/2027 08/02/2022, 10/10/2005 Cervical Cancer Screening 01/04/2028 HPV/Co-Test 01/04/2028 01/03/2023 Pneumococcal Vaccine: Pediatrics (0 to 5 Years) and At-Risk Patients (6 to 64 Years) Completed 02/20/2023, 03/19/2018 Influenza Vaccine (FLU shot) Completed 03/2024, 03/13/2020, 04/22/2019, Additional history exists COVID-19 Vaccine Completed 04/06/2024, , 09/25/2021, Additional history exists HPV (Gardasil) Vaccine Aged Out No lo [...] uncontrolled documented in this encounter Care Teams Tech Writer Relationship Specialty Start Date End Date Sugar Graves MD [address] [address] PCP - General Family Medicine 10/21/22 documented as of this encounter
--- OUTSIDE RECORDS SUMMARY | 2024-04-29 08:54 | External Medical Summary | Summary of Care ---
Author Name Unknown Organization [facility] Address [address] [place] [address] Phone [phone] Care Team Providers Care Design Project Manager Name Role Phone Krystin Graves MD Primary Care Provid er Reason for Visit * Reason Onset Date Comments Medication Refill 04/04/2024 Encounter Details Date Type Department Care Team (Late st Contact Info) Description 04/04/2024 Refill [facility] [address] [place] [address] OctoberDoron MD [address] [place] [address] Anxiety Allergies Active Allergy Reactions Criticality Noted Date Comments Doxycycline High 07/15/2023 arthralgia Theophylline 04/30/2002 anxiety Theophylline Sodium Glycinate 2004 nervous documented as of this encounter (statuses as of 04/06/2024) Medications Medication Sig Dispensed Refills Start Date [...] Additional Information Patient not taking.Reported on 07/12/2023 AdjudicaStyle [place] Lite w/Device KitIndications:DM type 2, not at [...] a day.. 54 g 3 10/16/2023 Active Insulin Glargine-yfgn 100 UNIT/ML Subcutaneous Solution Pen-injector (Ricardoglee (yfgn))Indications:D M type 2, not at goal (HCC) Inject 32 Units under the skin in the morning. Dose increase. 30 mL 3 11/20/2023 Active traZODone HCl 100 MG Oral Tablet [...] mL 3 03/16/2024 Active FreeStyle Beth 3 SensorIndications:DM type 2, not at goal (HCC) Use as directed. Replace sensors every 14 days. 6 Each 04/06/2024 Active Escitalopram Oxalate 20 MG Oral Tablet (Lexapro)Indications :Anxiety,Primary insomnia Take 1 Tablet by mouth in the morning. 90 Tablet 1 04/06/2024 Active documented as of this encounter (statuses as of 04/06/2024) Active Problems Problem Noted Date Diagnosed Date [...] as of this encounter (statuses as of 04/06/2024) Resolved Problems Problem Noted Date Diagnosed Date [...] as of this encounter (statuses as of 04/06/2024) Immunizations Name Administration Dates Next Due COVID-19 mRNA, LNP-s, No Pre serve, 2-Dose Series ([employer]) 04/17/2021,08/22/2020 Covid-19, Mrna, Lnp-s, Pf, B ivalent, 30 Mcg, IM, 12 yrs and above (Pfizer) 03/20/2022,09/25/2021 Hepatitis B, 20+ yrs 03/05/2021 Pneumococcal Conjugate Vacci ne, 20-valent ([id number]) 02/20/2023 Pneumococcal Polysaccharide PPV23 (Pneumovax) 03/19/2018 Seasonal [...] encounter Miscellaneous Notes * Telephone Encounter - Kinsey Wogn RPh - 04/06/2024 12:17 PM EDTRefused Prescriptions: Disp Refills busPIRone HCl 10 MG Oral Tablet (Buspar) 540 Ta*3 Sig: Take 2 Tablets by mouth in the morning and 2 Tablets at noon and 2 Tablets before bedtime.Refused By: KINSEY WONG for Refusal: Too soon documented in this encounter Plan of Treatment [...] 01/14/2024 01/13/2023, 12/22, 02/09/2018, Additional history exists COVID-19 Vaccine ( season) 2024 03/20/2022, 09/25/2021, 04/17/2021, Additional history exists HbA1c 04/14/2024 10/14/2023, 0 [...] Completed 03/2024, 03/13/2020, 04/22/2019, Additional history exists HPV (Gardasil) Vaccine Aged Out No lo nger eligible based on patient's age to complete this topic MENINGOCOCCAL (MENACTRA/MENVEO) Aged Out No longer eligible based on patient's age to complete this topic documented as of this encounter Medical Devices Not on filedocumented as of this encounter Visit Diagnoses Diagnosis Anxiety Anxiety state, unspecified documented in this encounter Care Teams Design Project Manager Relationship Specialty Start Date End Date Krystin Graves MD [address] [place] [facility] [place] [address] PCP - General Family Medicine 10/21/22 documented as of this encounter
--- OUTSIDE RECORDS SUMMARY | 2024-04-29 08:54 | External Medical Summary | Summary of Care ---
Author Name Unknown Organization [facility] Address [address] [place] [address] Phone [phone] Care Team Providers Care Waiter/Waitress Cocktail Lounge Name Role Phone Sugar Meyer MD Primary Care Provid er Reason for Visit * Reason Onset Date Comments Medication Refill 04/04/2024 Encounter Details Date Type Department Care Team (Late st Contact Info) Description 04/04/2024 Refill [facility] [address] [place] [address] Sguar Meyer MD [address] [place] [address] DM type 2, not at goal (HCC); Anxiety; Primary insomnia Allergies Active Allergy Reactions Criticality [...] Information Patient not taking.Reported on 07/12/2023 FreeStyle [place] Lite w/Device KitIndications:DM type 2, not at goal ([facility]) Use to check sugars [...] DM type 2, not at goal ([facility]) Use to inject insulin [...] Dose increase. 30 mL 3 11/20/2023 Active Montelukast Sodium 10 MG Oral Tablet [...] Anxiety (insomnia). 90 Tablet 3 04/06/2024 Active FreeStyle Beth 3 SensorIndications:D M type 2, not at goal (HCC) Use as directed. Replace sensors every 14 days. 6 Each 3 07/23/2023 4 Discontinu ed(Refill) Escitalopram Oxalate 20 MG Oral Tablet (Lexapro)Indication s:Anxiety,Primary insomnia Take 1 Tablet by mouth in the morning. 90 Tablet 1 12/05/2023 4 Discontinu ed(Refill) traZODone HCl 100 MG Oral Tablet (Desyrel)Indication s:Anxiety,Primary insomnia Take 1 Tablet by mouth at bedtime. 90 Tablet 1 12/05/2023 4 Discontinu ed(Refill) hydrOXYzine HCl 10 MG Oral Tablet (Atarax)Indications :Anxiety Take 1 Tablet by mouth every 6 hours as needed for Anxiety (insomnia). 120 Tablet 1 12/09/2023 Discontinu ed(Refill) documented as of this encounter [...] mRNA, LNP-s, No Pre serve, 2-Dose Series ([employer]) 04/17/2021,08/22/2020 Covid-19, Mrna, Lnp-s, Pf, B ivalent, 30 Mcg, IM, 12 yrs and above ([employer]) 03/20/2022,09/25/2021 Hepatitis B, 20+ yrs 03/05/2021 Pneumococcal Conjugate Vacci ne, 20-valent ([id number]) 02/20/2023 Pneumococcal Polysaccharide PPV23 (Pneumovax) 03/19/2018 Seasonal [...] Telephone Encounter - Sugar Meyer MD - 04/06/2024 12:49 PM EDT Signed Prescriptions: Disp Refills FreeStyle Beth 3 Sensor 6 Each 0 Sig: Use as directed. Replace sensors every 14 days.Authorizing Provider: SUGAR MEYEROrdering User: KINSEY WONGopram Oxalate 20 MG Oral Tablet (Le*90 Tab*1 Sig: Take 1 Tablet by mouth in the morning.Authorizing Provider: SUGAR MEYEROrdering User: KINSEY WONG traZODone HCl 100 MG Oral Tablet (Desyrel) 90 Tab*1 Sig: Take 1 Tablet by mouth at bedtime.Authorizing Provider: SUGAR MEYER hydrOXYzine HCl 50 MG Oral Tablet 90 Tab*3 Sig: Take 1 Tablet by mouthevery 8 hours as needed for Anxiety (insomnia).Authorizing Provider: SUGAR MEYER------ * Telephone Encounter - Kinsey Wong RPh - 04/06/2024 12:16 PM EDTPending Prescriptions: Disp Refills traZODone HCl 100 MG Oral Tablet (Desyrel) 90 Tab*1 Sig: Take 1 Tablet by mouth at bedtime. hydrOXYzine HCl 10 MG Oral Tablet (Atarax) 120 Ta*1 Sig: Take 1 Tablet by mouth every 6 hours as needed for Anxiety (insomnia). Signed Prescriptions: Disp Refills FreeStyle Beth 3 Sensor 6 Eac h 0 Sig: Use as directed. Replace sensors every 14 days. Authorizing Provider: SUGAR MEYER Ordering User: KINSEY WONG Escitalopram Oxalate 20 MG Oral Tablet (Le*90 Tab*1 Sig: Take 1 Tablet by mouth in the morning. Authorizing Provider: SUGAR MEYER Ordering User: KINSEY WONG * Telephone Encounter - Kinsey Wong RPh - 04/06/2024 12:15 PM EDT Please see MyG regarding hydroxyzine and advise. Unable to authorize medication refills for pended medication(s) at this time. Part of the protocol criteria used for refill authorization was not satisfied. Patient needs Ast/ALT WNL. Please approve if appropriate. AST Results: Lab Results Component Value Date/Time AST - [facility] 121 (H) 10/14/2023 02:40 PM AST - [facility] 104 (H) 07/12/2023 10:58 AM [facility] 112 (H) 11/20/2020 10:52 AM [facility] 132 (H) 09/11/2020 05:20 AM [facility] 111 (H) 09/10/2020 02:44 AM ALT Results: Lab Results Component Value Date/Time ALT - [facility] 148 (H) 10/14/2023 02:40 PM ALT - [facility] 102 (H) 07/12/2023 10:58 AM [facility] 46 11/20/2020 10:52 AM [facility] 70 (H) 09/11/2020 05:20 AM [facility] 56 (H) 09/10/2020 02:44 AM Kinsey Dozier Clinical Pharmacist [facility] ([facility] [phone] 04/06/2024, 12:16 PM * Telephone Encounter - Kinsey Wong RPh - 04/06/2024 12:15 PM EDT Rerouted remaining refills to new pharmacy as requested. Kinsey Dozier Clinical Pharmacist [facility] ([facility]) [phone] 04/06/2024, 12:15 PM documented in this encounter Plan of [...] mention of complication, not stated as uncontrolled Anxiety Anxiety state, unspecified Primary insomnia Persistent disorder of initiating or maintaining sleep documented in this encounter Care Teams Waiter/Waitress Cocktail Lounge Relationship Specialty Start Date End Date Sugar Meyer MD [address] [place] [address] PCP - General Family Medicine 10/21/22 documented as of this encounter
--- OUTSIDE RECORDS SUMMARY | 2024-04-29 08:54 | External Medical Summary | Summary of Care ---
Author Name Unknown Organization [facility] Address [address] [place] [address] Phone [phone] Care Team Providers Care Protective Services Social Worker Name Role Phone Sugar Graves MD Primary Care Provid er Reason for Visit * Reason Onset Date Comments Medication Refill 04/08/2024 Encounter Details Date Type Department Care Team (Late st Contact Info) Description 04/08/2024 Refill [facility] [address] [place] [address] Sugar Graves MD [address] [place] [address] DM type 2, not at [...] Information Patient not taking.Reported on 07/12/2023 FreeStyle [place] Lite w/Device KitIndications:DM type 2, not at goal ([facility]) Use to check sugars daily. [...] DM type 2, not at goal ([facility]) Use to inject insulin 4 [...] (w/Niacinamide))Ind ications:DM type 2, not at goal ([facility]) Inject 5 units under the skin before breakfast, 4 units with lunch, and 4 units with dinner. 15 mL 3 03/16/2024 Active Escitalopram Oxalate 20 MG Oral Tablet [...] Tablet 3 04/06/2024 Active FreeStyle Beth 3 Plus Sensor Replace sensors every 14 days. 6 Each 04/09/2024 Active FreeStyle Beth 3 SensorIndications:D M type 2, not at goal (HCC) Use as directed. Replace sensors every 14 days. 6 Each 04/06/2024 4 Discontinu ed(Medicat ion List Clean Up) documented as of this encounter (statuses as [...] mRNA, LNP-s, No Pre serve, 2-Dose Series ([employer]) 04/17/2021,08/22/2020 Covid-19, Mrna, Lnp-s, Pf, B ivalent, 30 Mcg, IM, 12 yrs and above (Pfizer) 03/20/2022,09/25/2021 Hepatitis B, 20+ yrs 03/05/2021 Pneumococcal Conjugate Vacci ne, 20-valent ([id number]) 02/20/2023 Pneumococcal Polysaccharide PPV23 (Pneumovax) 03/19/2018 Seasonal [...] encounter Miscellaneous Notes * Telephone Encounter - Nicole Mary RPh - 04/09/2024 1:54 PM EDTSigned Prescriptions: Disp Refills FreeStyle Beth 3 Plus Sensor 6 Each 0 Sig: Replace sensors every 14 days.Authorizing Provider: SUGAR GRAVES User: NICOLE MARY * Telephone Encounter - Nicole Mary RPh - 04/09/2024 1:50 PM EDT Re-sent 04/06/24 RX as Freestyle Beth 3 Plus Sensors as requested. Thanks, Nicole Mary Rph, Pharm D. Clinical Pharmacist [facility] [phone] 04/09/2024,1:52 PM documented in this encounter Plan of [...] 02/09/2018, Additional history exists HbA1c 04/14/2024 10/14/2023, 0 [...] uncontrolled documented in this encounter Care Teams Protective Services Social Worker Relationship Specialty Start Date End Date Sugar Graves MD [address] [address] PCP - General Family Medicine 10/21/22 documented as of this encounter
--- OUTSIDE RECORDS SUMMARY | 2024-04-29 08:55 | External Medical Summary | Summary of Care ---
Author Name Unknown Organization [facility] Address [address] [place] [address] Phone [phone] Care Team Providers Care Sheet Metal Apprentice Name Role Phone Krystin Graves MD Primary Care Provid er Reason for Visit * Reason Comments Appointment Encounter Details Date Type Department Care Team (Late st Contact Info) Description 03/29/2024 6:10 PM EDT Pharmacy Pharmacy, [address] [address] [facility] [address] [place] [address] DM type 2, not at goal (HCC)* Allergies Active Allergy Reactions Criticality Noted Date Comments Doxycycline High 07/15/2023 arthralgia Theophylline 04/30/2002 anxiety Theophylline Sodium Glycinate 2004 nervous documented as of this encounter (statuses as of 03/29/2024) Medications Medication Sig Dispensed Refills Start Date [...] Information Patient not taking.Reported on 07/12/2023 FreeStyle [place] Lite w/Device KitIndications:DM type 2, not at goal (HCC) Use to check sugars daily. E 11.9 1 Kit 04/16/2023 Active Triamcinolone Acetonide 55 MCG/ACT Nasal Aerosol (Nasacort Allergy 24HR) Administer into nostril as needed for Rhinitis. Active FreeStyle Beth 3 SensorIndications:DM type 2, not at goal ([facility]) Use as directed. Replace sensors [...] with dinner. 15 mL 3 03/16/2024 Active documented as of this encounter (statuses as of 03/29/2024) Active Problems Problem Noted Date Diagnosed Date [...] as of this encounter (statuses as of 03/29/2024) Resolved Problems Problem Noted Date Diagnosed Date [...] as of this encounter (statuses as of 03/29/2024) Immunizations Name Administration Dates Next Due COVID-19 mRNA, LNP-s, No Pre serve, 2-Dose Series ([employer]) 04/17/2021,08/22/2020 Covid-19, Mrna, Lnp-s, Pf, B ivalent, 30 Mcg, IM, 12 yrs and above (Pfizer) 03/20/2022,09/25/2021 Hepatitis B, 20+ yrs 03/05/2021 Pneumococcal Conjugate Vacci ne, 20-valent ([id number]) 02/20/2023 Pneumococcal Polysaccharide PPV23 (Pneumovax) 03/19/2018 Seasonal Influenza Vac., MDV , IM, 0.5 mL (Fluzone) 03/15/2014,03/31/2013,05/04/2012,04/30 Seasonal Influenza Virus Vac cine, Unspecified Formulation 04/22/2019,03/19/2018,04/07/2017,03/15,03/31/2013,05/04/2012,04/30/2006 ,05/08/2005,05/11/2003,05/05/2002 Seasonal Influenza, PF, 6 M & above, IM , (FluLaval or Fluzone) 03/13/2020,04/22/2019,03/19/2018 Seasonal Influenza, Quadrivalent, ID 04/07/2017 Seasonal Influenza, Quadriva lent, No Preserve, IM 04/06/2015 TD - Tetanus/Diptheria (ADULT) 10/09/2005 TD, Preservative [...] as of this encounter Progress Notes * Ammy Coles PHARM Tech - 03/29/2024 8:51 AM EDT Marcus Avelar has not contacted the clinic to schedule/reschedule an appointment for DM management per referral from PCP despite multiple requests to do so by our team. Patient is discharged from [facility] services at this time. Thank you, Ammy Coles Licensed Reactor Operator [facility] ([facility] ([facility]) 03/29/2024, 8:51 AM documented in this encounter Plan of [...] 2024 03/20/2022, 09/25/2021, 04/17/2021, Additional history exists Influenza [...] uncontrolled documented in this encounter Care Teams Sheet Metal Apprentice Relationship Specialty Start Date End Date Krystin Graves MD [address] [place] [facility] [place] [address] PCP - General Family Medicine 10/21/22 documented as of this encounter
--- OUTSIDE RECORDS SUMMARY | 2024-04-29 08:55 | External Medical Summary | Summary of Care ---
Author Name Unknown Organization [facility] Address [address] [place] [address] Phone [phone] Care Team Providers Care Statistics Manager Name Role Phone Krystin Graves MD Primary Care Provid er Reason for Visit * Reason Comments Dosage Adjustment Via Phone (anticoag Cl inic) Encounter Details Date Type Department Care Team (Late st Contact Info) Description 02/25/2024 6:10 PM EDT Pharmacy Pharmacy, [address] [address] [facility] [address] [place] [address] DM type 2, not at goal (HCC)* Allergies Active Allergy Reactions Criticality Noted Date Comments Doxycycline High 07/15/2023 arthralgia Theophylline 04/30/2002 anxiety Theophylline Sodium Glycinate 2004 nervous documented as of this encounter (statuses as of 02/25/2024) Medications Medication Sig Dispensed Refills Start Date [...] Information Patient not taking.Reported on 07/12/2023 FreeStyle Sundown Lite w/Device KitIndications:DM type 2, not at goal ([facility]) Use to check sugars daily. E 11.9 1 Kit 04/16/2023 Active Triamcinolone Acetonide 55 MCG/ACT Nasal Aerosol (Nasacort Allergy 24HR) Administer into nostril as needed for Rhinitis. Active FreeStyle Beth 3 SensorIndications:DM type 2, not at goal ([facility]) Use as directed. Replace sensors every 14 [...] Needle)Indications:D M type 2, not at goal ([facility]) Use to inject insulin 4 times daily. [...] as of this encounter (statuses as of 02/25/2024) Active Problems Problem Noted Date Diagnosed Date [...] as of this encounter (statuses as of 02/25/2024) Resolved Problems Problem Noted Date Diagnosed Date [...] as of this encounter (statuses as of 02/25/2024) Immunizations Name Administration Dates Next Due COVID-19 mRNA, LNP-s, No Pre serve, 2-Dose Series (HowDo) 04/17/2021,08/22/2020 Covid-19, Mrna, Lnp-s, Pf, B ivalent, 30 Mcg, IM, 12 yrs and above (Pfizer) 03/20/2022,09/25/2021 Hepatitis B, 20+ yrs 03/05/2021 Pneumococcal Conjugate Vacci ne, 20-valent ([id number]) 02/20/2023 Pneumococcal Polysaccharide PPV23 (Pneumovax) 03/19/2018 Seasonal Influenza Virus Vac cine, Unspecified Formulation 04/22/2019,03/19/2018,04/07/2017,03/15,03/31/2013,05/04/2012,04/30/2006 ,05/08/2005,05/11/2003,05/05/2002 Seasonal Influenza, PF, 6 M & above, IM , (FluLaval or Fluzone) 03/13/2020,04/22/2019,03/19/2018 Seasonal Influenza, Quadrivalent, ID 04/07/2017 Seasonal Influenza, Quadriva lent, No Preserve, IM 04/06/2015 Seasonal Influenza, Trivalen t, (IIV3), with Preserv, (Fluzone) 03/15/2014,03/31/2013,05/04/2012,04/30 TD - Tetanus/Diptheria (ADULT) 10/09/2005 TD, [...] as of this encounter Progress Notes * Veronica Leong PHARM Tech - 02/25/2024 8:30 AM EDT Patient Phone Numbers Left message on patients answering machine to schedule [facility] appointment for diabetes management. [facility] message sent --no Clinic will follow up again in 4 week(s). [Attempt # 3] Thank you, Padma Leong Stenotype Operator [facility] 02/25/2024, 8:30 AM documented in this encounter Plan of Treatment Upcoming Encounters Date Type Department Care Team (Late st Contact Info) Description 02/26/2024 11:20 AM EDT Office Visit [facility] [address] [phone] Tesha Robins MD [address] [address] 03/16/2024 3:00 PM EDT Office Visit Hepatology, [facility] [address] [facility] [place] [address] Vee Juarez MD [address] [place] [phone] 03/18/2024 10:00 AM EDT Telemedicine Psychiatry [facility] [address] [address] [place] [phone] Woodrow Jang [address] [place] [phone] 03/29/2024 6:10 PM EDT Pharmacy Pharmacy, [place] [address] [place] [address] [facility] [address] [place] [address] Health Maintenance Due Date Last Done Comments [...] uncontrolled documented in this encounter Care Teams Statistics Manager Relationship Specialty Start Date End Date Krystin Graves MD [address] [place] [place] [address] PCP - General Family Medicine 10/21/22 documented as of this encounter
--- OUTSIDE RECORDS SUMMARY | 2024-04-29 08:55 | External Medical Summary | Summary of Care ---
Author Name Unknown Organization [facility] Address [address] [place] [address] Phone [phone] Care Team Providers Care Electrolysis Investigator Name Role Phone Sugar Graves MD Primary Care Provid er Reason for Visit * Reason Onset Date Comments Medication Refill 03/16/2024 Encounter Details Date Type Department Care Team (Late st Contact Info) Description 03/16/2024 Refill Pharmacy, [place] [address] [place] [address] Sugar Graves MD [address] [place] [address] DM type 2, not at goal (HCC) Allergies Active Allergy Reactions Criticality Noted Date Comments Doxycycline High 07/15/2023 arthralgia Theophylline 04/30/2002 anxiety Theophylline Sodium Glycinate 2004 nervous documented as of this encounter (statuses as of 03/16/2024) Medications Medication Sig Dispensed Refills Start Date [...] Information Patient not taking.Reported on 07/12/2023 FreeStyle Sherman Lite w/Device KitIndications:DM type 2, not at goal ([facility]) Use to check sugars daily. E 11.9 1 Kit 04/16/2023 Active Triamcinolone Acetonide 55 MCG/ACT Nasal Aerosol (Nasacort Allergy 24HR) Administer into nostril as needed for Rhinitis. Active FreeStyle Beth 3 SensorIndications:D M type 2, not at goal ([facility]) Use as directed. Replace sensors every 14 [...] 2, not at goal ([facility]) Use to inject insulin 4 times daily. [...] with dinner. 15 mL 3 03/16/2024 Active Fiasp FlexTouch 100 UNIT/ML Subcutaneous Solution Pen-injector (Insulin Aspart (w/Niacinamide))Ind ications:DM type 2, not at goal (HCC) Inject 5 units under the skin before breakfast, 4 units with lunch, and 4 units with dinner. 15 mL 3 10/16/2023 4 Discontinu ed(Refill) documented as of this encounter (statuses as of 03/16/2024) Active Problems Problem Noted Date Diagnosed Date [...] as of this encounter (statuses as of 03/16/2024) Resolved Problems Problem Noted Date Diagnosed Date [...] as of this encounter (statuses as of 03/16/2024) Immunizations Name Administration Dates Next Due COVID-19 mRNA, LNP-s, No Pre serve, 2-Dose Series ([employer]) 04/17/2021,08/22/2020 Covid-19, Mrna, Lnp-s, Pf, B ivalent, 30 Mcg, IM, 12 yrs and above ([employer] Central) 03/20/2022,09/25/2021 Hepatitis B, 20+ yrs 03/05/2021 Pneumococcal Conjugate Vacci ne, 20-valent ([id number]) 02/20/2023 Pneumococcal Polysaccharide PPV23 (Pneumovax) 03/19/2018 Seasonal [...] Telephone Encounter - Day Rosario RPh - 03/16/2024 9:51 AM EDT Signed Prescriptions: Disp Refills Fiasp FlexTouch 100 UNIT/ML Subcutaneous S*15 mL 3 Sig: Inject 5units under the skin before breakfast, 4 units with lunch, and 4 units with dinner.Authorizing Provider: SUGAR GRAVES User: DAY ROSARIO documented in this encounter Plan of Treatment Upcoming Encounters Date Type Department Care Team (Late st Contact Info) Description 03/29/2024 6:10 PM EDT Pharmacy Pharmacy, [address] [address] [facility] [address] [place] [address] Health Maintenance Due Date Last Done Comments [...] uncontrolled documented in this encounter Care Teams Electrolysis Investigator Relationship Specialty Start Date End Date Sugar Graves MD [address] [place] [address] PCP - General Family Medicine 10/21/22 documented as of this encounter
--- OUTSIDE RECORDS SUMMARY | 2024-04-29 08:55 | External Medical Summary | Summary of Care ---
Author Name Unknown Organization [facility] Address [address] [place] [address] Phone [phone] Care Team Providers Care Publications Designer Name Role Phone Krystin Graves MD Primary Care Provid er Reason for Visit * Reason Onset Date Comments Medication Administration 04/01/2024 Pt her e for flu vaccine.Temp 98.7 Encounter Details Date Type Department Care Team (Late st Contact Info) Description 04/01/2024 1:00 PM EDT Immunization Ancillary Department, [place] [address] [place] [address] [place] [address] [place] [address] Need for prophylactic vaccination and inoculation against influenza* Allergies Active Allergy Reactions Criticality Noted Date Comments Doxycycline High 07/15/2023 arthralgia Theophylline 04/30/2002 anxiety Theophylline Sodium Glycinate 2004 nervous documented as of this encounter (statuses as of 04/01/2024) Medications Medication Sig Dispensed Refills Start Date [...] Information Patient not taking.Reported on 07/12/2023 FreeStyle L[place] Lite w/Device KitIndications:DM type 2, not at goal ([facility]) Use to check sugars daily. E 11.9 1 Kit 04/16/2023 Active Triamcinolone Acetonide 55 MCG/ACT Nasal Aerosol (Nasacort Allergy 24HR) Administer into nostril as needed for Rhinitis. Active FreeStyle Beth 3 SensorIndications:DM type 2, not at goal ([facility]) Use as directed. Replace sensors every [...] Needle)Indications:D M type 2, not at goal ([facility]) Use to inject insulin 4 times [...] as of this encounter (statuses as of 04/01/2024) Active Problems Problem Noted Date Diagnosed Date [...] as of this encounter (statuses as of 04/01/2024) Resolved Problems Problem Noted Date Diagnosed Date [...] as of this encounter (statuses as of 04/01/2024) Immunizations Name Administration Dates Next Due COVID-19 mRNA, LNP-s, No Pre serve, 2-Dose Series ([employer]) 04/17/2021,08/22/2020 Covid-19, Mrna, Lnp-s, Pf, B ivalent, 30 Mcg, IM, 12 yrs and above ([employer]IT) 03/20/2022,09/25/2021 Hepatitis B, 20+ yrs 03/05/2021 Pneumococcal Conjugate Vacci ne, 20-valent ([id number]) 02/20/2023 Pneumococcal Polysaccharide PPV23 (Pneumovax) 03/19/2018 Seasonal [...] as of this encounter Progress Notes * Mariam Green MED ASSIST - 04/01/2024 12:41 PM EDT PRE - ADMINISTRATION DOCUMENTATION Are you experiencing any cold symptoms or fever? No Have you had Guillain-Radcliffe Syndrome (an illness that causes paralysis) within the last 6 weeks? No Have you had the flu shot in the past? YES Have you ever had a reaction to the flu shot? No NIRAJ Conklin, 04/01/2024 12:41 PM Immunization Administration Documentation Time Out Procedure Performed: Yes Patient Identified (Ask Name/Date of ): Yes Does the patient have a fever greater than 101 degrees today? No Patient allergic to latex? No [facility] Stock: No Immunization(s) verified: Yes, Immunization Name: Flu, VIS Sheet(s) given: Yes Verified Side and [...] as of this encounter Visit Diagnoses Diagnosis Need for prophylactic vaccination and inoculation against influenza- Primary documented in this encounter Care Teams Publications Designer Relationship Specialty Start Date End Date Krystin Graves MD [address] [place] [phone] PCP - General Family Medicine 10/21/22 documented as of this encounter
--- NOTE | 2024-04-29 10:25 | Electrocardiogram Report ---
Test Reason : Blood Pressure : */* mmHG Vent. Rate : 112 BPM Atrial Rate : 112 BPM P-R Int : 136 ms QRS Dur : 78 ms QT Int : 336 ms P-R-T Axes : 47 10 22 degrees QTcB Int : 458 ms Sinus tachycardia Possible Inferior infarct , age undetermined Abnormal ECG When compared with ECG of 17-Feb-2024 14:20, Borderline criteria for Inferior infarct are now Present Confirmed by Walter Conn ([id number]) on 04/29/2024 10:25:31 AM Referred By: Confirmed By: Walter Conn
[2024-04-29] MEDS: busPIRone 5 MG TAB PO SCH (10:51)
[2024-04-29] MEDS: ESCITALOPRAM OXALATE 10 MG TAB PO SCH (10:51)
[2024-04-29] MEDS: FLUTICASONE/VILANTEROL 200/25MCG 14 PUFFS/INHALER INH SCH (10:52)
[2024-04-29] MEDS: LANTUS PER UNIT CHARGE SQ SCH (11:01)
[2024-04-29] MEDS: INSULIN ASPART PER UNIT CHARGE SC SCH ×3 (11:02→23:59)
[2024-04-29] MEDS ORDERED: PHARMACY GLYCEMIC MGMT CONSULT PRN (12:22)
--- NOTE | 2024-04-29 12:25 | Communication Note ---
Date of Service: April 29, 2024 evaluated pt at bedside Reports doing well at inpatient rehab then a month with her parents in sobriety. returned to the area recently and noted that being alone was a trigger. Patient unemployeed and working to retain recent job offer Patient with noted housing concerns given financial situation Exam anxious, tremulous, tearful tachycardic, regular rhythm #Alcohol withdrawal AWSS gabapentin taper, ativan prn monitor on tele #Syncope likely iso intoxication ECHO with EF > 70% CTM on tele #Alcoholic hepatitis AST > ALT, recent intoxication on admission Trend CMP, symptomatic management #BLE craming replace lytes prn dopplers negative rest of plan per HP
[2024-04-29] MEDS: GABAPENTIN 600 MG TAB PO SCH (12:43)
[2024-04-29] MEDS: LANTUS PER UNIT CHARGE SQ ONE (14:02)
--- NOTE | 2024-04-29 14:51 | Pharmacy Report ---
Pharmacy Glycemic Short Note 2 - Date of Service April 29, 2024 - Glycemic Short BSG Results (Last 24 hours): 04/28/24 04/28/24 04/29/24 22:28 22:40 02:05 Glucose 358 H* 229 H POC Glucose 331 H* 04/29/24 04/29/24 04/29/24 02:17 03:49 10:48 Glucose POC Glucose 218 H 206 H 366 H* 04/29/24 04/29/24 04/29/24 10:49 13:45 13:47 Glucose POC Glucose 383 H* 321 H* 308 H* OUTPATIENT ANTIDIABETIC REGIMEN: * Semglee 32 units qAM * aspart 4-5 units tid HbA1c 9.3% on 12/02/23 (next ordered for 04/30 with AM labs) ASSESSMENT: * 48 year old female presented 04/28 for ETOH w/d. Her BSG has been elevated since admission (331mg/dL last evening). She received 10 units of lantus x 1 and a bolus scale was started by the hospitalist and she received 11 units of humalog for coverage this morning. Pharmacy was then consulted for glycemic management. * She is currently on a T2DM full clear diet. * BSG was still > 300mg/dL this afternoon so an additional 10 units of lantus was given. (She required ~20 units of basal insulin daily in previous admissions) * Bolus parameters were adjusted slightly (tightened carb ratio and loosened correction factor) from original order to align with previous admissions (her BSGs seemed to fluctuate). PLAN FOR INPATIENT GLYCEMIC CONTROL: * Hold outpatient diabetes medications * Basal insulin * Lantus 10 units SQ x 2 * Bolus insulin * NovoLog per scale ACHS or Q6hrs while NPO * Goal Range: Low 110 mg/dL - High 140 mg/dL * Correction Factor: 35 mg/dL/unit * Nutritional / Prandial insulin per carb ratio of 1 unit per 12 grams CHO consumed
[2024-04-29] MEDS: traZODone HCL 50 MG TAB PO SCH (19:27)
[2024-04-30] MEDS: GABAPENTIN 600 MG TAB PO SCH (06:03)
[2024-04-30 07:05] LABS: Albumin Globulin Ratio 1.7 (0.9-2); Albumin Level 3.8 gm/dl (3.4-5.0); BUN Creatinine Ratio 16.9 (10-20); Bilirubin,Total 0.9 mg/dl (0.2-1.0); Creatinine Clr Calc Pharmacy 98.5 ml/min; Globulin 2.3 gm/dl (2.5-4.0); Potassium 3.3 mmol/L (3.5-5.1); Total Protein 6.1 gm/dl (6.0-8.3)
[2024-04-30 07:10] LABS: Estimated Average Glucose 223 mg/dl; Hemoglobin A1C 9.4 % (4.5-5.6)
[2024-04-30 07:20] LABS: Hematocrit (blood only) 38.7 % (37.0-47.0); Hemoglobin 13.5 g/dl (12.0-16.0); Mean Corpuscular Hemoglobin 30.1 pg (25.0-34.0); Mean Corpuscular Hgb Conc 34.9 g/dL (32.0-36.0); Mean Corpuscular Volume 86.4 fL (80.0-100.0); Mean Platelet Volume 9.7 fL (9.4-12.4); Platelet Count 98 K/uL (130-400); RDW Coefficient of Variation 12.8 % (11.5-14.5); RDW Standard Deviation 40.3 fL (36.4-46.3); Red Blood Count 4.48 M/uL (4.20-5.40); White Blood Count 1.89 K/ul (4.8-10.8)
[2024-04-30 07:23] LABS: Basophils # (auto) 0.01 K/uL (0.00-0.20); Basophils % (auto) 0.5 %; Eosinophils # (auto) 0.03 K/uL (0.00-0.50); Eosinophils % (auto) 1.6 %; Lymphocytes # (auto) 0.77 K/uL (1.20-3.40); Lymphocytes % (auto) 40.7 %; Monocytes # (auto) 0.11 K/uL (0.11-0.59); Monocytes % (auto) 5.8 %; Neutrophils # (auto) 0.97 K/uL (1.40-6.50); Neutrophils % (auto) 51.4 %
[2024-04-30] MEDS: THIAMINE HCL 100 MG TAB PO SCH (09:19)
[2024-04-30] MEDS: FOLIC ACID 1 MG TAB PO SCH (09:20)
[2024-04-30] MEDS: POTASSIUM CHLORIDE CRTAB 20 MEQ TABCR PO SCH (09:26)
[2024-04-30] MEDS: LANTUS PER UNIT CHARGE SC SCH (09:26)
--- NOTE | 2024-04-30 12:22 | Hospitalist Progress Note ---
Date of Service April 30, 2024 Assessment & Plan (1) Alcohol withdrawal: Plan: Ms. Avelar is a 48 year old woman with medical history significant for asthma/mild COPD as per records, alcoholic steatosis, DM2 insulin requiring, chronic hyponatremia, anxiety/mood disorder, MRSA, past tobacco abuse who is admitted for alcohol withdrawal. Patient received 1mg Ativan last at 1900 04/30. Spoke to mother at length--will come to crop picker patient in am and take patient to stay with them (parents) #Alcohol withdrawal AWSS gabapentin taper, ativan prn monitor on tele continue thiamine/folate #anxiety/mood disorder, suboptimal mood, denies suicidality continue escitalopram, trazodone, buspar behavior liason following #Chronic pancytopenia iso chronic alcohol use #Syncope likely iso intoxication ECHO with EF > 70% CTM on tele no further episodes #Alcoholic hepatitis AST > ALT, recent intoxication on admission Trend CMP, symptomatic management #BLE craming replace lytes prn dopplers negative #Insulin DM2m uncontrolled suboptimal control as of recent hemoglobin A1c of 9.4 04/2024 continue glargine 20U ssi DVT scd Patient request for mother to be given updates regarding care. Ms. Laura Weiss, contact #[phone]. Admission and Anticipated Discharge Date Admission Date: April 29, 2024 Subjective Reports feeling much improved as able Reports wanting to leave however, parents will crop picker tomorrow Ativan IV last given 1899 Physical Exam Constitutional: WD/WN, vitals as above Respiratory: normal respiratory effort, lungs clear to auscultation Cardiovascular: RRR, no murmur, no edema Gastrointestinal (Abdomen): normal bowel sounds, soft, nontender, no hepatosplenomegaly Results & Data Results & Data Vital Signs (Past 12 Hours) Vital Signs Temp Pulse Pulse Resp BP Pulse Ox O2 Del Method 04/30/24 11:49 36.8 C 73 18 128/80 100 Room Air 04/30/24 08:10 63 04/30/24 07:55 36.6 C 59 L 16 114/77 99 Room Air 04/30/24 03:09 36.6 C 69 16 113/73 98 Room Air Laboratory Results Short CBC 04/30/24 Range/Units 06:19 WBC 1.89 L (4.8-10.8) K/ul Hgb 13.5 (12.0-16.0) g/dl Hct 38.7 (37.0-47.0) % Plt Count 98 L D (130-400) K/uL BMP 04/30/24 06:19 Sodium 136 Potassium 3.3 L Chloride 99 Carbon Dioxide 31 BUN 11 Creatinine 0.65 Glucose 232 H Calcium 10.0 Liver Function 04/30/24 Range/Units 06:19 Total Bilirubin 0.9 (0.2-1.0) mg/dl AST 85 H (13-39) U/L ALT 81 H (7-52) U/L Alkaline Phosphatase 193 H (34-104) U/L Albumin 3.8 (3.4-5.0) gm/dl Diagnostic Findings IMPRESSION: 1. No evidence of acute fracture. 2. Small disc bulges at C2-C3, C3-C4, C4-C5 and C5-C6, with no significant spinal canal or neural foraminal compromise. Mild progression of disc osteophyte at C5-C6 level in comparison to the prior examination 3. Cervical spondylosis, and mild retrolisthesis seen at C3-C4. This was also present in prior examination Medications Administered Home Medications Medication Instructions Recorded Confirmed Last Taken fluticasone 250 mcg-salmeterol 50 1 inh inhalation QAM 02/27/19 04/29/24 04/28/24 mcg/dose blistr powdr for inhalation (Advair Diskus) albuterol sulfate 90 mcg/actuation 2 puff inhalation UD PRN Shortness 07/23/19 04/29/24 05/21/20 aerosol inhaler (Ventolin HFA) Of Breath buspirone 10 mg tablet 20 mg PO TID 04/22/22 04/29/24 02/16/24 escitalopram oxalate 10 mg tablet 10 mg PO QAM 11/26/23 04/29/24 02/16/24 insulin aspart 4 - 5 unit subcut TID 11/26/23 04/29/24 02/16/24 (niacinamide)(U-100) 100 unit/mL(3 mL) subcutaneous pen (Fiasp FlexTouch U-100 Insulin) insulin glargine-yfgn 100 unit/mL 32 unit subcut QAM 11/26/23 04/29/24 02/15/24 (3 mL) subcutaneous pen (Semglee (insulin glargine-yfgn) Pen) pen needle, diabetic 32 gauge x 11/26/23 04/29/24 Unknown 5/32" (BD Ultra-Fine Gertrude Pen Needle) trazodone 50 mg tablet 50 mg PO QPM 11/26/23 04/29/24 02/15/24 zinc acetate 50 mg (zinc) capsule 50 mg PO DAILY 12/01/23 04/29/24 02/15/24 folic acid 1 mg tablet 1 mg PO QAM #30 tabs 02/21/24 04/29/24 Unknown thiamine HCl (vitamin B1) 100 mg 100 mg PO QAM #30 tabs 02/21/24 04/29/24 Unknown tablet hydroxyzine HCl 50 mg tablet 50 mg DIRECTED PRN Anxiety 04/29/24 04/29/24 Unknown Active Medications Generic Name Dose Route Start Last Admin Trade Name Freq PRN Reason Stop Dose Admin Buspirone HCl 15 mg 04/30/24 12:00 04/30/24 13:20 Buspirone 15 Mg Tab PO 05/30/24 11:59 15 mg TID@0900,1200,2100 ARMANI Administration Buspirone HCl 5 mg 04/30/24 12:00 04/30/24 13:19 Buspirone 5 Mg Tab PO 05/30/24 11:59 5 mg TID@0900,1200,2100 ARMANI Administration Escitalopram Oxalate 10 mg 04/29/24 09:00 04/30/24 09:20 Escitalopram Oxalate 10 Mg Tab PO 05/29/24 08:59 10 mg QAM ARMANI Administration Fluticasone/Vilanterol 1 puffs 04/29/24 09:00 04/30/24 09:18 Fluticasone/Vilanterol 200/25mcg 14 Puffs/Inhaler INH 05/29/24 08:59 1 puffs DAILY ARMANI Administration Folic Acid 1 mg 04/30/24 09:00 04/30/24 09:20 Folic Acid 1 Mg Tab PO 05/30/24 08:59 1 mg QAM ARMANI Administration Gabapentin 600 mg 04/30/24 06:00 04/30/24 13:23 Gabapentin 600 Mg Tab PO 04/30/24 22:01 600 mg Q8H ARMANI Administration Insulin Aspart 0 units 04/30/24 00:00 04/30/24 03:39 Insulin Aspart Per Unit Charge SC 05/30/24 00:00 Not Given 0000,0400 [facility] Insulin Aspart 0 units 04/29/24 21:00 04/30/24 13:21 Insulin Aspart Per Unit Charge HI 05/29/24 20:59 Not Given ACHS [facility] Insulin Glargine 20 units 04/30/24 09:00 04/30/24 09:26 Lantus Per Unit Charge HI 05/30/24 08:59 20 units DAILY ARMANI Administration Lorazepam 1 mg 04/29/24 04:10 04/29/24 19:27 Lorazepam 2 Mg/1 Ml Vial IV 05/29/24 04:09 1 mg UD PRN Administration EtOH Withdrawal AWSS Score 6,7 Protocol Potassium Chloride 40 meq 04/30/24 09:00 04/30/24 09:26 Potassium Chloride Crtab 20 Meq Tabcr PO 05/01/24 21:01 40 meq BID ARMANI Administration Thiamine HCl 100 mg 04/30/24 09:00 04/30/24 09:19 Thiamine Hcl 100 Mg Tab PO 05/30/24 08:59 100 mg QAM ARMANI Administration Trazodone HCl 50 mg 04/29/24 21:00 04/29/24 19:27 Trazodone Hcl 50 Mg Tab PO 05/29/24 20:59 50 mg QPM ARMANI Administration (1) Alcohol withdrawal Complication of substance-induced condition: with unspecified complication Qualified Code(s): F10.939 - Alcohol use, unspecified with withdrawal, unspecified
[2024-04-30] MEDS: busPIRone 5 MG TAB PO SCH (13:19)
[2024-04-30] MEDS: busPIRone 15 MG TAB PO SCH (13:20)
--- NOTE | 2024-04-30 14:04 | Pharmacy Report ---
Pharmacy Glycemic Short Note 2 - Date of Service April 30, 2024 - Glycemic Short BSG Results (Last 24 hours): 04/29/24 04/29/24 04/29/24 13:45 13:47 16:42 Glucose POC Glucose 321 H* 308 H* 104 H 04/29/24 04/29/24 04/29/24 19:16 21:47 23:54 Glucose POC Glucose 312 H* 309 H* 206 H 04/30/24 04/30/24 04/30/24 03:38 06:19 08:17 Glucose 232 H POC Glucose 118 H 221 H 04/30/24 12:24 Glucose POC Glucose 197 H OUTPATIENT ANTIDIABETIC REGIMEN: * Semglee 32 units qAM * aspart 4-5 units tid HbA1c 9.3% on 12/02/23 and 9.4% on 04/30/24 ASSESSMENT: 04/30 * Patient received 54 units of insulin yesterday (20 were basal and 34 were bolus) * She has had increased BSG readings despite insulin adjustments. Her case is complicated by her anxiety/fear of hypoglycemia--She prefers BG values to be in the low 200s. * BG target was increased to 140-180 last evening and additional overnight BSG checks were added to ease some of the patient's anxiety. This afternoon, the BG target was decreased to 120-160 due to continued hyperglycemia, but the overnight checks will be continued. * Fasting BSG was 221mg/dL this morning so Lantus 20 units daily was started. Patient was changed from clears to a T2DM diet and Lunch BSG was 197mg/dl, but patient refused bolus coverage. 04/29 * 48 year old female presented 04/28 for ETOH w/d. Her BSG has been elevated since admission (331mg/dL last evening).Novolin-R 4 unit IV bolus + Novolin-R 2 unit IV bolus were administered in ED. She received 10 units of lantus x 1 and a bolus scale was started by the hospitalist and she received 11 units of humalog for coverage this morning. Pharmacy was then consulted for glycemic management. * She is currently on a T2DM full clear diet. * BSG was still > 300mg/dL this afternoon so an additional 10 units of lantus was given. (She required ~20 units of basal insulin daily in previous admissions) * Bolus parameters were adjusted slightly (tightened carb ratio and loosened correction factor) from original order to align with previous admissions (her BSGs seemed to fluctuate). PLAN FOR INPATIENT GLYCEMIC CONTROL: * Hold outpatient diabetes medications * Basal insulin * Lantus 20 units SQ daily * Bolus insulin * NovoLog per scale ACHS or Q6hrs while NPO * Goal Range: Low 120 mg/dL - High 160 mg/dL * Correction Factor: 35 mg/dL/unit * Nutritional / Prandial insulin per carb ratio of 1 unit per 12 grams CHO consumed
[2024-05-01 03:40] VITALS: RESP 16
[2024-05-01 07:26] LABS: Hematocrit (blood only) 37.9 % (37.0-47.0); Hemoglobin 12.7 g/dl (12.0-16.0); Mean Corpuscular Hgb Conc 33.5 g/dL (32.0-36.0); Mean Corpuscular Volume 89.6 fL (80.0-100.0); Mean Platelet Volume 9.8 fL (9.4-12.4); Platelet Count 85 K/uL (130-400); RDW Coefficient of Variation 12.7 % (11.5-14.5); RDW Standard Deviation 41.7 fL (36.4-46.3); Red Blood Count 4.23 M/uL (4.20-5.40); White Blood Count 1.98 K/ul (4.8-10.8)
[2024-05-01 07:53] LABS: Potassium 4.1 mmol/L (3.5-5.1)
[2024-05-01 07:54] LABS: Albumin Globulin Ratio 1.5 (0.9-2); Albumin Level 3.7 gm/dl (3.4-5.0); BUN Creatinine Ratio 16.9 (10-20); Bilirubin,Total 0.7 mg/dl (0.2-1.0); Calcium 9.9 mg/dl (8.6-10.3); Creatinine Clr Calc Pharmacy 99.1 ml/min; Globulin 2.4 gm/dl (2.5-4.0); Magnesium 1.8 mg/dl (1.7-2.4); Phosphorus 2.8 mg/dl (2.5-4.9); Total Protein 6.1 gm/dl (6.0-8.3)
[2024-05-01 08:04] VITALS: TEMP 98.1
[2024-05-01] MEDS: GABAPENTIN 600 MG TAB PO SCH (09:10)
[2024-05-01 10:34] VITALS: BP 115/79
--- NOTE | 2024-05-01 10:40 | Discharge Summary ---
Discharge Summary Date of Service May 01, 2024 Principal Dx & Hospital Course #1 = Principal Diagnosis (1) Alcohol withdrawal: Ms. Avelar is a 48 year old woman with medical history significant for asthma/mild COPD as per records, alcoholic steatosis, DM2 insulin requiring, chronic hyponatremia, anxiety/mood disorder, MRSA, past tobacco abuse who is admitted for alcohol withdrawal. Patient did well with gabapentin taper. Patient declined inpatient rehab and parents came to pick patient up. Discussed trial high dose gabapentin for alcohol use disorder. Will start 600mg TID. Patient reports having naltrexone at home and encouraged patient to cont inue and pursue abstinence. Discussed patients pancytopenia and hepatic steatosis, as well as high risk for evolving in to cirrhosis. Patient verbalized understanding. Patient discharged with 70/30 novolog as patient cannot afford insulin pens and has been noncompliant 2/2 financial obstacles. #Alcohol withdrawal #Alcohol use disorder AWSS continue gabapentin 600mg TID for AUD Follow up with program continue thiamine/folate #anxiety/mood disorder, suboptimal mood, denies suicidality continue escitalopram, trazodone, buspar continue #Chronic pancytopenia iso chronic alcohol use #Syncope likely iso intoxication ECHO with EF > 70% CTM on tele no further episodes #Alcoholic hepatitis AST > ALT, recent intoxication on admission downtrending #BLE craming replace lytes prn dopplers negative #Insulin DM2m uncontrolled suboptimal control as of recent hemoglobin A1c of 9.4 04/2024 discharged with novolog 70/30, 35 U in am and 15 U in evening Notes For Next Care Provider Medication Changes From Visit Start gabapentin 600mg TID for AUD Use 70/30 novolog 35 U in am, 15 U in pm Admission HPI Per Admitting Provider History obtained from patient and records. Medical history significant for asthma/mild COPD as per records, alcoholic cirrhosis, DM2 insulin requiring, chronic hyponatremia, anxiety/mood disorder, MRSA, past tobacco abuse Last confinement February 2024 for alcohol abuse. Patient discharged to [facility] rehab facility. Patient started drinking again upon return home. Admits to depression, denies suicidality. Patient with unwitnessed falls at home over the last few days. Possible syncope. Mild headache from head trauma following a fall. Denies chest pain, SOB, abdominal pain. Usual cough symptoms. Denies tongue biting or incontinence symptoms. Patient complaining of bilateral leg tingling discomfort not pain. Nausea, dry heaving symptoms without abdominal pain. Family requested police to do a well check on patient at home last night. Patient found on the floor. Patient brought to the ER for evaluation. Medical History as above Surgical History : Dental surgery Family History : Alcoholism, heart disease, dementia, prostate cancer Personal/Social history : Past tobacco abuse, ongoing alcohol abuse, unemployed Admission Exam Per Admitting Provider GENERAL: Slightly uncomfortable, tremulous, dry heaving, no respiratory distress SKIN: Normal color, warm, scattered contusions HEENT: [place] palpebral conjunctivae, no ptosis, dry buccal mucosa NECK : Supple, no tenderness CHEST : Decreased breath sounds, no tenderness HEART : RRR, no obvious murmurs ABDOMEN: Some distention, nontender EXTREMITIES : No LE swelling/tenderness, no other conspicuous deformities noted NEUROLOGIC : Coherent, no facial asymmetry, tremulous, no other gross focality Discharge Exam Constitutional WD/WN, vitals as above Respiratory normal respiratory effort, lungs clear to auscultation Cardiovascular RRR, no murmur, no edema Gastrointestinal (Abdomen) normal bowel sounds, soft, nontender, no hepatosplenomegaly Updated Medication List Medication Instructions Recorded Confirmed Type fluticasone 250 mcg-salmeterol 50 1 inh inhalation QAM 02/27/19 04/29/24 History mcg/dose blistr powdr for inhalation (Advair Diskus) albuterol sulfate 90 mcg/actuation 2 puff inhalation UD PRN Shortness 07/23/19 04/29/24 History aerosol inhaler (Ventolin HFA) Of Breath buspirone 10 mg tablet 20 mg PO TID 04/22/22 04/29/24 History escitalopram oxalate 10 mg tablet 10 mg PO QAM 11/26/23 04/29/24 History insulin aspart 4 - 5 unit subcut TID 11/26/23 04/29/24 History (niacinamide)(U-100) 100 unit/mL(3 mL) subcutaneous pen (Fiasp FlexTouch U-100 Insulin) insulin glargine-yfgn 100 unit/mL 32 unit subcut QAM 11/26/23 04/29/24 History (3 mL) subcutaneous pen (Semglee (insulin glargine-yfgn) Pen) pen needle, diabetic 32 gauge x 11/26/23 04/29/24 History 5/32" (BD Ultra-Fine Gertrude Pen Needle) trazodone 50 mg tablet 50 mg PO QPM 11/26/23 04/29/24 History zinc acetate 50 mg (zinc) capsule 50 mg PO DAILY 12/01/23 04/29/24 History folic acid 1 mg tablet 1 mg PO QAM #30 tabs 02/21/24 04/29/24 Rx thiamine HCl (vitamin B1) 100 mg 100 mg PO QAM #30 tabs 02/21/24 04/29/24 Rx tablet hydroxyzine HCl 50 mg tablet 50 mg DIRECTED PRN Anxiety 04/29/24 04/29/24 History gabapentin 600 mg tablet 600 mg PO TID 30 days #90 tabs 05/01/24 Rx insulin U-500 syringe-needle 1/2 #100 ea 05/01/24 Rx mL 31 gauge x 15/64" (BD Insulin Syringe U-500) insulin aspar prt-insulin aspart See Rx Instructions .Route 05/01/24 Rx 100 unit/mL (70-30) subcutaneous .COMPLEX #10 mL soln (Novolog Mix 70-30 U-100 Insuln) Hospital Stay Data Consultations 04/29/24 03:38 ED Decision to Admit Stat 04/29/24 13:37 Consult Behavioral Health Liaison Routine Diagnostic Imagining Performed 04/28/24 22:28 CT abd pelvis IV con only Stat CT cervical spine wo con Stat CT chest diagnostic w con Stat CT head/brain wo con Stat 04/29/24 04:46 US venous doppler LE BI Stat Pending Results Patient Have Any Pending Studies at Discharge: No Discharge Instructions Given to Patient (Per Discharging Provider) You were admitted for Alcohol Withdrawal. You were noted to have continued signs of fatty liver due to alcohol use. This can eventually result in cirrhosis. You consistently have suppressed bone marrow due to alcohol, this can leave you immunocompromised and susceptible to injections that otherwise would not be an issue. Additionally, you have very poorly controlled diabetes with a A1C of 9.4%. This may not "feel" like anything now, but with this level your chances of severe vision/eye issues, nerve problems, healing issues, and many other health risks are very high. For your alcohol use, please start the following: -Gabapentin 600mg three times a day This can be used in conjunction with Naltrexone. You mentioned not having easy access to previous prescribed insulin pens, therefore, you were prescribed: Novolog 70/30: Inject 35 U with breakfast and 15 U with supper Insulin syringes were also sent to your requested pharmacy. Please follow up closely with your substance program as well as your PCP Total Time Total Time Spent Total Time Spent (In Minutes): 45
[2024-05-01 10:54] VITALS: PULSE 88; O2SAT 100
[2024-05-02] MEDS ORDERED: GABAPENTIN 600 MG TAB PO SCH (22:00)
== END 2024-05-01 11:43 | disposition home or self-care (01) | DRG 897 ==
LOC: ED 22:12 → 2N 04-29 04:08

== ENCOUNTER 2024-05-12 11:53 | Inpatient (IN) ==
--- NOTE | 2024-05-12 12:26 | Emergency Department Note ---
Impression & Plan Alcohol intoxication, History of alcohol abuse ED Provider Note Provider: Fermin Ruelas MD CHIEF COMPLAINT: Confused/intoxicated HISTORY OF PRESENT ILLNESS: Patient is a 48-year-old female past medical history significant for alcohol abuse as well as alcohol withdrawal and mood disorder presenting here today via ambulance. According to EMS report patient's mother who lives out of town called police for welfare check and she was found on her couch intoxicated minimally responsive. EMS called and brought here for further evaluation. Patient states he has been drinking alcohol but cannot tell me when she had her last drink. States since she was in the hospital recently for alcohol withdrawal has gone back to drinking. Denies falls. Denies pain. Reports some nausea but no vomiting or significant abdominal pain reported by her. Denies cough or cold or fever symptoms. PAST MEDICAL HISTORY: As noted above MEDICATIONS: Reviewed home medications SOCIAL HISTORY: Alcohol abuse PHYSICAL EXAM: GENERAL: alert to verbal stimuli but drowsy in no acute distress on stretcher Head: normocephalic and atraumatic EYES: No injection, discharge or icterus. PERRL, EOMI with a little bit of nystagmus noted. NECK: Trachea midline. Supple. ENT: Mucous membranes pink and moist. LUNGS: Airway patent. No retractions. Breath sounds clear with good air entry bilaterally. HEART: Regular rate and rhythm. No chest wall tenderness ABDOMEN: Soft and non-tender, without guarding or rebound. SKIN: Acyanotic, warm, dry, without rashes EXTREMITIES: Without swelling, tenderness or deformity NEUROLOGICAL: No aphasia. No facial droop with some mildly slurred speech. Normal strength and tone in the extremities. Sensation to gross touch normal. EK bpm normal sinus rhythm. No PVC or PAC. No acute ST segment elevation or depression with a QTc of 395. CONTINUOUS CARDIAC MONITORING: was ordered and showed a heart rate of 80s-110s bpm in normal sinus rhythm to sinus tachycardia Patient's laboratory studies and imaging reviewed. Differential includes Infection, dehydration, metabolic abnormality, hypo/hyperglycemia, electrolyte disturbance, anemia, hypoxia, cardiac sources, toxicologic, neurologic, as well as other pathologies. IMPRESSION/MEDICAL DECISION MAKING: Given the patient's clinical history and recent admission here for alcohol abuse high suspicion for alcohol intoxication. No evidence of trauma on the patient. She denies pain. Benign abdomen on exam. Moving all extremities although bit uncoordinated and little bit of slurred speech. Will send alcohol level. Will obtain CT of the head to exclude bleed given the alcohol history and her presentation but less likely to be CVA my estimation. Not hypoglycemic. Given some Zofran for nausea and some IV fluid. Basic blood work here without significant anemia or leukocytosis. Normal platelet count. No severe electrolyte abnormality signs of renal dysfunction. LFTs mildly elevated but a long history of alcohol and these are not far from previous baseline. INR normal at 1.1. No evidence of pancreatitis or heart injury. TSH normal. CT of the head given her drowsiness obtained without significant acute finding reported. Chest x-ray without significant abnormality noted by radiology on my interpretation/review. Alcohol level elevated 358 consistent with her history and presentation for alcohol intoxication. Several hours later the patient awoke and was quite tearful. States she was anxious. Becomes tearful and somewhat shaky. Reports a history of hallucinations with withdrawal before. Given some IV Ativan. Patient states he is quite depressed and quickly gets her parents on the phone. Most recently hospitalized here. Has had recent inpatient rehab. Patient evasive when asked if she had suicidal thoughts or homicidal thoughts. She is just quite tearful and states she is super anxious. I do feel given her significant elevated alcohol level history of withdrawal issues with depression she is reporting further hospitalization here for monitoring is indicated. Will need to be monitored and reassessed when sober for any underlying severe depression/SI/HI components to her symptoms. DIAGNOSIS: Alcohol intoxication with history of abuse, anxiety and depression DISPOSITION: Hospitalist will evaluate Patient was agreeable with this plan. Past Med/Surg History Problem List Alcohol intoxication (Acute) Noncompliance (Acute) Hyperglycemia (Acute) Contusion of multiple sites (Acute) Frequent falls (Acute) Alcohol intoxication (Acute) Alcohol abuse (Acute) CHI (closed head injury) (Acute) Acute hyponatremia (Acute) Acute hyperglycemia (Acute) Tachycardia (Acute) Alcohol withdrawal (Acute) Alcohol abuse (Acute) Hyponatremia Vomiting (Acute) Alcohol abuse (Acute) Suicidal ideation (Acute) Alcohol withdrawal (Acute) Diabetes type 2, controlled Alcohol use disorder, moderate, dependence Alcohol abuse (Acute) Mood disorder (Acute) History of suicidal ideation MDD (major depressive disorder), recurrent, in partial remission Suicidal ideation (Acute) Alcohol withdrawal (Acute) DKA (diabetic ketoacidosis) (Acute) History of asthma History of alcohol abuse (Acute) History of recent fall Alcohol dependence (Acute) Alcohol withdrawal (Acute) Hypophosphatemia DKA (diabetic ketoacidosis) (Acute) Depression with suicidal ideation DKA, type 1 Polycythemia Hypercalcemia Metabolic acidosis due to diabetes mellitus Splenomegaly Hepatic steatosis Anxiety (Acute) Alcoholic hepatitis Nausea and vomiting (Acute) Elevated LFTs (Acute) Depression (Acute) Asthma Neutropenia Gram-positive cocci bacteremia Abscess Metabolic encephalopathy REG (acute kidney injury) Vomiting Elevated LFTs Weakness (Acute) Acute pancreatitis (Acute) REG (acute kidney injury) (Acute) DKA (diabetic ketoacidoses) (Acute) Coffee ground emesis (Acute) Hyperglycemia Alcoholism (Acute) Discharge planning issues MRSA (methicillin resistant Staphylococcus aureus) carrier Acute renal failure (ARF) Electrolyte and fluid disorder Anemia Acute upper GI hemorrhage Urinary tract infection Hypophosphatemia (Acute) Hypokalemia (Acute) Lactic acidosis (Acute) Hypoalbuminemia (Acute) Edema Elevated INR (Acute) Acute liver failure (Acute) Coagulopathy Elevated LFTs (Acute) Tachycardia (Acute) Alcohol abuse (Acute) Asthma Cirrhosis (Acute) GERD (gastroesophageal reflux disease) Abnormal TSH Leukopenia DVT prophylaxis Diabetes Alcohol abuse (Acute) Tremor (Acute) Leukocytopenia, unspecified Thrombocytopenia Anemia Diabetes Pancytopenia Anxiety (Chronic) Alcohol abuse (Acute) Medical History Transaminitis DM (diabetes mellitus), type 2 Alcoholic cirrhosis of liver without ascites Tachycardia Acute alcoholic pancreatitis Suicidal ideation Hypophosphatemia Hypomagnesemia Metabolic acidosis Thrush Alcoholic intoxication Thrombocytopenia Alcohol withdrawal Acute alcoholic hepatitis Acidosis, metabolic Acute pancreatitis Electrolyte abnormality DVT prophylaxis Alcohol withdrawal Asthma Surgical History History of dental surgery wisdom teeth History of esophagogastroduodenoscopy (EGD) Family History Father Prediabetes Grandfather (Paternal) Diabetes Mother Hypertension MVP (mitral valve prolapse) Social History Smoking Status: Never smoker Tobacco Type: Cigarettes Age Quit Using Tobacco: 39; packs per day: 1; Second Hand Exposure: No; Do You Dip or Chew Tobacco: No; Hx Alcohol Use: Yes Alcohol type: hard liquor Alcohol type Comment: 4 glasses wine daily Hx Substance Use: No Preferred Language: Estonian Communication Ability: Effective Visual Impairment: No Limitations [employer] Required: No Beliefs That Will Affect Care: None marital status: marital status details: Single parent Current Living Situation: Alone Current Living Situation Comment: daughter current occupational status: unemployed How many Children do You have: 1 Feels Safe at Home: Yes Childhood Exposure to Second-Hand Smoke: No Gender Identity: Female Assistive Devices: None Allergies Allergies Allergy/AdvReac Type Severity Reaction Status Date / Time doxycycline Allergy Severe Muscle Pain Verified 11/26/23 08:30 theophylline AdvReac Intermediate VERTIGO Verified 11/26/23 08:30 Home Meds Home Medications Medication Instructions Recorded Confirmed fluticasone 250 mcg-salmeterol 50 1 inh inhalation AMHS 02/27/19 05/12/24 mcg/dose blistr powdr for inhalation (Advair Diskus) albuterol sulfate 90 mcg/actuation 2 puff inhalation QID Shortness Of 07/23/19 05/12/24 aerosol inhaler (Ventolin HFA) Breath/WHEEZING buspirone 10 mg tablet 20 mg PO TID 04/22/22 05/12/24 insulin aspart 4 - 5 unit subcut TID 11/26/23 05/12/24 (niacinamide)(U-100) 100 unit/mL(3 mL) subcutaneous pen (Fiasp FlexTouch U-100 Insulin) insulin glargine-yfgn 100 unit/mL 32 unit subcut QAM 11/26/23 05/12/24 (3 mL) subcutaneous pen (Semglee (insulin glargine-yfgn) Pen) pen needle, diabetic 32 gauge x 11/26/23 05/12/24 5/32" (BD Ultra-Fine Gertrude Pen Needle) escitalopram oxalate 20 mg tablet 20 mg PO QAM 05/12/24 05/12/24 hydroxyzine HCl 50 mg tablet 50 mg PO Q8 PRN ANXIETY/INSOMNIA 05/12/24 05/12/24 lorazepam 0.5 mg tablet 0.5 mg PO TID PRN Anxiety 05/12/24 05/12/24 magnesium 30 mg tablet 30 mg PO DAILY 05/12/24 05/12/24 multivitamin with minerals 1 tab PO DAILY 05/12/24 05/12/24 (Multiple Vitamin-Minerals tablet) trazodone 100 mg tablet 100 mg PO HS 05/12/24 05/12/24 zinc glycinate 20 mg capsule 20 mg PO DAILY 05/12/24 05/12/24 Previous Rx's Medication Instructions Recorded gabapentin 600 mg tablet 600 mg PO TID 30 days #90 tabs 05/01/24 insulin U-500 syringe-needle 1/2 #100 ea 05/01/24 mL 31 gauge x 15/64" (BD Insulin Syringe U-500) insulin aspar prt-insulin aspart See Rx Instructions .Route 05/01/24 100 unit/mL (70-30) subcutaneous .COMPLEX #10 mL soln (Novolog Mix 70-30 U-100 Insuln) Results & Data (ED) Vital Signs Vital Signs - 24 hr 05/12/24 12:07 05/12/24 12:07 05/12/24 12:11 Temperature 37.2 C Temperature Source Oral Pulse Rate 95 H 89 Pulse Rate [Apical] Pulse Rhythm Regular Pulse Rhythm [Apical] Pulse Strength Normal Pulse Strength [Apical] Respiratory Rate 14 Respiratory Effort / Characteristics Non-Labored Spontaneous Respiratory Depth Normal Respiratory Pattern Regular Blood Pressure 107/78 Blood Pressure [Right Arm] Blood Pressure Mean 87 Blood Pressure Mean [Right Arm] Blood Pressure Position Sitting Blood Pressure Position [Right Arm] Pulse Oximetry 88 L 88 L Oxygen Delivery Method Room Air Room Air Sepsis Recent Fever Within 48 Hours No Sepsis New/Unexplained Change in Mental Status No Sepsis Action Taken by Nursing No Action Required Oxygen Flow Rate - Titration 1 Pulse Oximetry Post Tiitration 91 05/12/24 12:28 05/12/24 13:50 05/12/24 15:10 Temperature Temperature Source Pulse Rate 97 H Pulse Rate [Apical] 99 H 84 Pulse Rhythm Regular Pulse Rhythm [Apical] Regular Regular Pulse Strength Pulse Strength [Apical] Normal Normal Respiratory Rate 14 16 16 Respiratory Effort / Characteristics Non-Labored Spontaneous Non-Labored Spontaneous Respiratory Depth Normal Normal Respiratory Pattern Regular Regular Blood Pressure Blood Pressure [Right Arm] 128/94 Blood Pressure Mean Blood Pressure Mean [Right Arm] 105 Blood Pressure Position Blood Pressure Position [Right Arm] Sitting Pulse Oximetry 95 94 95 Oxygen Delivery Method Room Air Room Air Room Air Sepsis Recent Fever Within 48 Hours Sepsis New/Unexplained Change in Mental Status Sepsis Action Taken by Nursing Oxygen Flow Rate - Titration Pulse Oximetry Post Tiitration 05/12/24 16:11 05/12/24 17:00 Temperature Temperature Source Pulse Rate 91 H Pulse Rate [Apical] 97 H Pulse Rhythm Pulse Rhythm [Apical] Pulse Strength Pulse Strength [Apical] Respiratory Rate 18 Respiratory Effort / Characteristics Respiratory Depth Respiratory Pattern Blood Pressure Blood Pressure [Right Arm] 110/79 Blood Pressure Mean Blood Pressure Mean [Right Arm] 89 Blood Pressure Position Blood Pressure Position [Right Arm] Pulse Oximetry 93 Oxygen Delivery Method Room Air Sepsis Recent Fever Within 48 Hours Sepsis New/Unexplained Change in Mental Status Sepsis Action Taken by Nursing Oxygen Flow Rate - Titration Pulse Oximetry Post Tiitration Laboratory Data 05/12/24 12:32 05/12/24 12:32 Lab Results 05/12/24 05/12/24 05/12/24 Range/Units 12:32 12:36 15:55 WBC 4.74 L (4.8-10.8) K/ul RBC 5.17 (4.20-5.40) M/uL Hgb 15.6 (12.0-16.0) g/dl Hct 44.7 (37.0-47.0) % MCV 86.5 (80.0-100.0) fL MCH 30.2 (25.0-34.0) pg MCHC 34.9 (32.0-36.0) g/dL RDW Std Deviation 43.1 (36.4-46.3) fL RDW Coeff of Suzanne 13.7 (11.5-14.5) % Plt Count 274 (130-400) K/uL MPV 9.1 L (9.4-12.4) fL Immature Gran % (Auto) 0.4 % Neut % (Auto) 44.3 % Lymph % (Auto) 47.9 % [facility] % (Auto) 4.6 % Eos % (Auto) 1.5 % Baso % (Auto) 1.3 % Neut # (Auto) 2.10 (1.40-6.50) K/uL Lymph # (Auto) 2.27 (1.20-3.40) K/uL [facility] # (Auto) 0.22 (0.11-0.59) K/uL Eos # (Auto) 0.07 (0.00-0.50) K/uL Baso # (Auto) 0.06 (0.00-0.20) K/uL Immature Gran # (Auto) 0.02 (0.01-0.20) K/uL PT 11.7 (9.0-12.0) Seconds INR 1.1 (0.9-1.1) Sodium 141 (136-145) mmol/L Potassium 4.0 (3.5-5.1) mmol/L Chloride 105 (98-107) mmol/L Carbon Dioxide 26 (21-32) mmol/L Anion Gap 10 (3-11) BUN 7 (6-23) mg/dl Creatinine 0.66 (0.6-1.2) mg/dl Est Cr Clr Drug Dosing 106.7 ml/min eGFR 108.14 BUN/Creatinine Ratio 10.6 (10-20) Glucose 201 H (70-99(Fasting)) mg/dl POC Glucose 154 H (70-99) mg/dl Calcium 10.2 (8.6-10.3) mg/dl Magnesium 1.9 (1.7-2.4) mg/dl Total Bilirubin 0.5 (0.2-1.0) mg/dl AST 63 H (13-39) U/L ALT 92 H (7-52) U/L Alkaline Phosphatase 202 H (34-104) U/L Troponin I High Sens < 2.3 (0-14) pg/ml Total Protein 7.6 (6.0-8.3) gm/dl Albumin 4.4 (3.4-5.0) gm/dl Globulin 3.2 (2.5-4.0) gm/dl Albumin/Globulin Ratio 1.4 (0.9-2) Lipase 17 (11-82) U/L TSH 1.754 (0.300-4.500) uIu/ml Ethyl Alcohol mg/dL 358.0 H (<10.0) mg/dl Adenovirus (PCR) Not Detected (NotDetected) B. pertussis DNA (PCR) Not Detected (NotDetected) B.parapertussis DNA PCR Not Detected (NotDetected) C. pneumoniae DNA (PCR) Not Detected (NotDetected) Coronavirus OC43 (PCR) Not Detected (NotDetected) Coronavirus HKU1 (PCR) Not Detected (NotDetected) Coronavirus 229E (PCR) Not Detected (NotDetected) SARS-CoV-2 (PCR) Not Detected (NotDetected) Coronavirus NL63 (PCR) Not Detected (NotDetected) Human Metapneumovir PCR Not Detected (NotDetected) Influenza Type A (PCR) Not Detected (NotDetected) Influenza Type B (PCR) Not Detected (NotDetected) M. pneumoniae (PCR) Not Detected (NotDetected) Parainfluenza 1 (PCR) Not Detected (NotDetected) Parainfluenza 2 (PCR) Not Detected (NotDetected) Parainfluenza 3 (PCR) Not Detected (NotDetected) Parainfluenza 4 (PCR) Not Detected (NotDetected) RSV (PCR) Not Detected (NotDetected) Entero/Rhino (PCR) Not Detected (NotDetected) Administered Medications Discontinued Medications Sodium Chloride (Nss) 1,000 mls @ 999 mls/hr IV .Q1H1M ONE Stop: 05/12/24 14:46 Last Infusion: 05/12/24 15:03 Dose: Infused Documented By: Admin: 05/12/24 13:54 Dose: 999 mls/hr Documented By: AGUSTO Lorazepam (Lorazepam 1 Mg/1 Ml Syr Ed Inj Use) 1 mg IV ONE STA Stop: 05/12/24 16:37 Last Admin: 05/12/24 16:40 Dose: 1 mg Documented By: MAX Ondansetron HCl (Ondansetron Inj 2 Mg/Ml 2 Ml Vial) 4 mg IV NOW STA Stop: 05/12/24 12:27 Last Admin: 05/12/24 12:46 Dose: 4 mg Documented By: AGUSTO Imaging Data Radiologist's Impression: Chest X-Ray 05/12/24 12:18 XR chest 1V portable HISTORY: 48 years-old Female intox ams COMPARISON: Chest radiograph 02/18/2024 , CT chest 04/28/2024 TECHNIQUE: AP view of the chest FINDINGS: Cardiomediastinal and hilar silhouettes are within normal limits. Cardiomediastinal and hilar silhouettes are within normal limits. No pneumothorax, pleural effusion or airspace consolidation. Healing subacute anterior left-sided rib fractures redemonstrated. IMPRESSION: 1. No acute processes of the chest. 2. Healing subacute nondisplaced anterior left-sided rib fractures are again noted. ACT 112: Negative or not required by law. The above report was generated using voice recognition software. It may contain grammatical, syntax or spelling errors. Electronically signed by: Tony Carney M.D. 05/12/2024 12:[address] 05/12/24 12:18 CT head/brain wo con CLINICAL HISTORY: 48 years-old Female with intox ams. Acutely altered mental status TECHNIQUE: Multiple axial CT images of the head were obtained without contrast. A dose lowering technique was utilized adhering to the principles of ALARA. CT DOSE: 625.8 mGy.cm COMPARISON: 04/28/2024 FINDINGS: No acute intracranial hemorrhage, midline shift, intracranial mass, hydrocephalus, territorial ischemia or abnormal extra-axial collection. The calvarium is intact. Mild mucosal thickening of the ethmoid air cells. The mastoid air cells are clear. IMPRESSION: No acute intracranial abnormality. ACT 112: Negative or not required by law. The above report was generated using voice recognition software. It may contain grammatical, syntax or spelling errors. Electronically signed by: Tony Carney M.D. 05/12/2024 1:40 PM Discharge Plan Visit Data Chief Complaint: Alcohol Intoxication ED Provider: Fermin Ruelas Discharge Problem: Alcohol intoxication, History of alcohol abuse Patient Disposition: Being Evaluated by Hospitalist Discharge Instructions Alberto/Other Patient Handouts: ED Alcohol Intoxication Activity Restrictions/Additional Instructions: Please avoid heavy alcohol use in the future. Forms Stand Alone Forms: My [facility] [place] [employer] Prescriptions Prescriptions: No Action fluticasone propion-salmeterol [Advair Diskus] 250-50 mcg/dose blister with device 1 inh inhalation AMHS albuterol sulfate [Ventolin HFA] 90 mcg/actuation Hfa Aerosol Inhaler 2 puff INHALATION QID buspirone 10 mg tablet 20 mg PO TID Rx Instructions: Take 2 Tablets by mouth in the morning and 2 Tablets at noon and 2 Tablets before bedtime. (DME) pen needle, diabetic [BD Ultra-Fine Gertrude Pen Needle] 32 gauge x 5/32" needle MISCELLANEOUS Rx Instructions: Use to inject insulin 4 times daily. Fiasp FlexTouch U-100 Insulin 100 unit/mL (3 mL) insulin pen 4 - 5 unit SUBCUT TID Hold Instructions: hold until able to consistently utilize Rx Instructions: Inject 5 units under the skin before breakfast, 4 units with lunch, and 4 units with dinner. insulin glargine-yfgn [Semglee(insulin glarg-yfgn)Pen] 100 unit/mL (3 mL) insulin pen 32 unit SUBCUT QAM Hold Instructions: hold until able to consistently utilize gabapentin 600 mg Tablet 600 mg PO TID 30 Days Qty: 90 0RF insulin asp prt-insulin aspart [Novolog Mix 70-30 U-100 Insuln] 100 unit/mL (70-30) solution See Rx Instructions .ROUTE .COMPLEX Qty: 10 0RF Rx Instructions: Inject 35 U subcutaneously in the morning before breakfast and 15 U subcutaneously in the evening with dinner (DME) BD Insulin Syringe U-500 1/2 mL 31 gauge x 15/64" syringe See Rx Instructions .Route Qty: 100 0RF Rx Instructions: to inject insuline 2 times a day hydroxyzine HCl 50 mg tablet 50 mg PO Q8 PRN (Reason: ANXIETY/INSOMNIA) trazodone 100 mg tablet 100 mg PO HS escitalopram oxalate 20 mg tablet 20 mg PO QAM lorazepam 0.5 mg tablet 0.5 mg PO TID PRN (Reason: Anxiety) zinc glycinate 20 mg Capsule 20 mg PO DAILY Multiple Vitamin-Minerals Tablet 1 tab PO DAILY magnesium 30 mg Tablet 30 mg PO DAILY Referrals Referrals: Krystin Graves MD [Primary Care Provider] -
[2024-05-12] MEDS: ONDANSETRON INJ 2 MG/ML 2 ML VIAL IV STA (12:46)
--- NOTE | 2024-05-12 12:58 | XRay Report ---
XR chest 1V portable HISTORY: 48 years-old Female intox ams COMPARISON: Chest radiograph 02/18/2024 , CT chest 04/28/2024 TECHNIQUE: AP view of the chest FINDINGS: Cardiomediastinal and hilar silhouettes are within normal limits. Cardiomediastinal and hilar silhoue ttes are within normal limits. No pneumothorax, pleural effusion or airspace consolidation. Healing s ubacute anterior left-sided rib fractures redemonstrated. IMPRESSION: 1. No acute processes of the chest. 2. Healing subacute nondisplaced anterior left-sided rib fractures are again noted. ACT 112: Negative or not required by law. The above report was generated using voice recognition software. It may contain grammatical, syntax o r spelling errors. Electronically signed by: Tony Carney M.D. 05/12/2024 12:57 PM
[2024-05-12 13:00] LABS: Basophils # (auto) 0.06 K/uL (0.00-0.20); Basophils % (auto) 1.3 %; Eosinophils # (auto) 0.07 K/uL (0.00-0.50); Eosinophils % (auto) 1.5 %; Hematocrit (blood only) 44.7 % (37.0-47.0); Hemoglobin 15.6 g/dl (12.0-16.0); Immature Granulocytes # (auto) 0.02 K/uL (0.01-0.20); Immature Granulocytes % (auto) 0.4 %; Lymphocytes # (auto) 2.27 K/uL (1.20-3.40); Lymphocytes % (auto) 47.9 %; Mean Corpuscular Hemoglobin 30.2 pg (25.0-34.0); Mean Corpuscular Hgb Conc 34.9 g/dL (32.0-36.0); Mean Corpuscular Volume 86.5 fL (80.0-100.0); Mean Platelet Volume 9.1 fL (9.4-12.4); Monocytes # (auto) 0.22 K/uL (0.11-0.59); Monocytes % (auto) 4.6 %; Neutrophils % (auto) 44.3 %; Platelet Count 274 K/uL (130-400); RDW Coefficient of Variation 13.7 % (11.5-14.5); RDW Standard Deviation 43.1 fL (36.4-46.3); Red Blood Count 5.17 M/uL (4.20-5.40); White Blood Count 4.74 K/ul (4.8-10.8)
[2024-05-12 13:20] LABS: Alanine Aminotransferase 92 U/L (7-52); Albumin Globulin Ratio 1.4 (0.9-2); Albumin Level 4.4 gm/dl (3.4-5.0); Alkaline Phosphatase 202 U/L (34-104); Anion Gap 10 (3-11); Aspartate Aminotransferase 63 U/L (13-39); BUN Creatinine Ratio 10.6 (10-20); Bilirubin,Total 0.5 mg/dl (0.2-1.0); Blood Urea Nitrogen 7 mg/dl (6-23); Calcium 10.2 mg/dl (8.6-10.3); Carbon Dioxide 26 mmol/L (21-32); Chloride 105 mmol/L (98-107); Creatinine Clr Calc Pharmacy 106.7 ml/min; Globulin 3.2 gm/dl (2.5-4.0); Glucose 201 mg/dl (70-99(Fasting)); Lipase 17 U/L (11-82); Magnesium 1.9 mg/dl (1.7-2.4); Sodium 141 mmol/L (136-145); Total Protein 7.6 gm/dl (6.0-8.3)
[2024-05-12 13:24] LABS: INR 1.1 (0.9-1.1); Prothrombin Time 11.7 Seconds (9.0-12.0); Troponin I High Sensitivity < 2.3 pg/ml (0-14)
[2024-05-12 13:33] LABS: Thyroid Stimulating Hormone 1.754 uIu/ml (0.300-4.500)
--- NOTE | 2024-05-12 13:41 | CT Scan Report ---
CT head/brain wo con CLINICAL HISTORY: 48 years-old Female with intox ams. Acutely altered mental status TECHNIQUE: Multiple axial CT images of the head were obtained without contrast. A dose lowering tech nique was utilized adhering to the principles of ALARA. CT DOSE: 625.8 mGy.cm COMPARISON: 04/28/2024 FINDINGS: No acute intracranial hemorrhage, midline shift, intracranial mass, hydrocephalus, territorial ischem ia or abnormal extra-axial collection. The calvarium is intact. Mild mucosal thickening of the ethmoid air cells. The mastoid air cells are clear. IMPRESSION: No acute intracranial abnormality. ACT 112: Negative or not required by law. The above report was generated using voice recognition software. It may contain grammatical, syntax o r spelling errors. Electronically signed by: Tony Carney M.D. 05/12/2024 1:40 PM
[2024-05-12 13:50] LABS: Adenovirus PCR Not Detected (NotDetected); Bordetella parapertussis PCR Not Detected (NotDetected); Bordetella pertussis PCR Not Detected (NotDetected); Chlamydia pneumoniae PCR Not Detected (NotDetected); Coronavirus 229E PCR Not Detected (NotDetected); Coronavirus CoV-2 (COVID19)PCR Not Detected (NotDetected); Coronavirus HKU1 PCR Not Detected (NotDetected); Coronavirus NL63 PCR Not Detected (NotDetected); Coronavirus OC43PCR Not Detected (NotDetected); Human Metapneumovirus PCR Not Detected (NotDetected); Influenza A PCR Not Detected (NotDetected); Influenza B PCR Not Detected (NotDetected); Mycoplasma pneumoniae PCR Not Detected (NotDetected); Parainfluenza Virus 1 PCR Not Detected (NotDetected); Parainfluenza Virus 2 PCR Not Detected (NotDetected); Parainfluenza Virus 3 PCR Not Detected (NotDetected); Parainfluenza Virus 4 PCR Not Detected (NotDetected); Respiratory Syncytial VirusPCR Not Detected (NotDetected); Rhinovirus/Enterovirus PCR Not Detected (NotDetected)
[2024-05-12] MEDS: SODIUM CHLORIDE 0.9% 1,000 ML IV ONE (13:54)
[2024-05-12] MEDS: LORazepam 1 MG/1 ML SYR ED Inj Use IV STA (16:40)
[2024-05-12] MEDS ORDERED: LORazepam 2 MG/1 ML VIAL IV PRN (17:49)
--- NOTE | 2024-05-12 18:04 | History & Physical Report ---
Date of Service May 12, 2024 Assessment & Plan (1) Alcohol intoxication: Plan: Significant history of alcohol abuse and recently was in alcohol rehab facility Has been living with her parents since discharge from the facility as per the patient She has been missing her parents and likely started drinking again Noted to be intoxicated with less responsiveness by the welfare checking police and was brought into the emergency room Remained hemodynamically stable in the emergency room with minimal drowsiness but no other acute findings She was admitted to med/telemetry unit for continued care and possible placement (2) Alcohol abuse: Plan: Significant history of alcohol abuse with recurrent withdrawal symptoms and admission (3) Alcohol withdrawal: Plan: Has been put on alcohol withdrawal protocol (4) Diabetes type 2, controlled: Plan: Will continue the current medications (5) Mood disorder: (6) History of suicidal ideation: Plan: No suicidal ideation during this visit (7) History of asthma: Plan: Seems to be controlled without any exacerbation DVT prophylaxis Subcu heparin CODE STATUS Full History of Present Illness Chief Complaint: Minimally responsive at home Primary Care Provider: Krystin Graves MD she is a 48-year-old female with significant past medical history including alcoholism with recurrent admission with withdrawal symptoms, major depressive disorder with history of suicidal ideation, type 2 diabetes on insulin and history of asthma apparently was noted to be intoxicated at home with minimal responsiveness by the police. Her parents called the police for a welfare check of 4 their daughter and the police found her to be less responsive and intoxicated. During examination she was not having any acute distress but she was a little drowsy and did not have any significant withdrawal symptoms Denies any abdominal or chest pain, any shortness of breath or palpitation, any nausea and/or vomiting. Recently she was in a rehab facility and was sent home to live with her parents Her parents are not living anymore with her and she got depressed and started to drink again. Allergies Allergy/AdvReac Type Severity Reaction Status Date / Time doxycycline Allergy Severe Muscle Pain Verified 11/26/23 08:30 theophylline AdvReac Intermediate VERTIGO Verified 11/26/23 08:30 Home Medications Medication Instructions Recorded Confirmed Type fluticasone 250 mcg-salmeterol 50 1 inh inhalation AMHS 02/27/19 05/12/24 History mcg/dose blistr powdr for inhalation (Advair Diskus) albuterol sulfate 90 mcg/actuation 2 puff inhalation QID Shortness Of 07/23/19 05/12/24 History aerosol inhaler (Ventolin HFA) Breath/WHEEZING buspirone 10 mg tablet 20 mg PO TID 04/22/22 05/12/24 History insulin aspart 4 - 5 unit subcut TID 11/26/23 05/12/24 History (niacinamide)(U-100) 100 unit/mL(3 mL) subcutaneous pen (Fiasp FlexTouch U-100 Insulin) insulin glargine-yfgn 100 unit/mL 32 unit subcut QAM 11/26/23 05/12/24 History (3 mL) subcutaneous pen (Semglee (insulin glargine-yfgn) Pen) pen needle, diabetic 32 gauge x 11/26/23 05/12/24 History 5/32" (BD Ultra-Fine Gertrude Pen Needle) gabapentin 600 mg tablet 600 mg PO TID 30 days #90 tabs 05/01/24 05/12/24 Rx insulin U-500 syringe-needle 1/2 #100 ea 05/01/24 05/12/24 Rx mL 31 gauge x 15/64" (BD Insulin Syringe U-500) insulin aspar prt-insulin aspart See Rx Instructions .Route 05/01/24 05/12/24 Rx 100 unit/mL (70-30) subcutaneous .COMPLEX #10 mL soln (Novolog Mix 70-30 U-100 Insuln) escitalopram oxalate 20 mg tablet 20 mg PO QAM 05/12/24 05/12/24 History hydroxyzine HCl 50 mg tablet 50 mg PO Q8 PRN ANXIETY/INSOMNIA 05/12/24 05/12/24 History lorazepam 0.5 mg tablet 0.5 mg PO TID PRN Anxiety 05/12/24 05/12/24 History magnesium 30 mg tablet 30 mg PO DAILY 05/12/24 05/12/24 History multivitamin with minerals 1 tab PO DAILY 05/12/24 05/12/24 History (Multiple Vitamin-Minerals tablet) trazodone 100 mg tablet 100 mg PO HS 05/12/24 05/12/24 History zinc glycinate 20 mg capsule 20 mg PO DAILY 05/12/24 05/12/24 History Past Med/Surg History Problem List Alcohol intoxication (Acute) Noncompliance (Acute) Hyperglycemia (Acute) Contusion of multiple sites (Acute) Frequent falls (Acute) Alcohol intoxication (Acute) Alcohol abuse (Acute) CHI (closed head injury) (Acute) Acute hyponatremia (Acute) Acute hyperglycemia (Acute) Tachycardia (Acute) Alcohol withdrawal (Acute) Alcohol abuse (Acute) Hyponatremia Vomiting (Acute) Alcohol abuse (Acute) Suicidal ideation (Acute) Alcohol withdrawal (Acute) Diabetes type 2, controlled Alcohol use disorder, moderate, dependence Alcohol abuse (Acute) Mood disorder (Acute) History of suicidal ideation MDD (major depressive disorder), recurrent, in partial remission Suicidal ideation (Acute) Alcohol withdrawal (Acute) DKA (diabetic ketoacidosis) (Acute) History of asthma History of alcohol abuse (Acute) History of recent fall Alcohol dependence (Acute) Alcohol withdrawal (Acute) Hypophosphatemia DKA (diabetic ketoacidosis) (Acute) Depression with suicidal ideation DKA, type 1 Polycythemia Hypercalcemia Metabolic acidosis due to diabetes mellitus Splenomegaly Hepatic steatosis Anxiety (Acute) Alcoholic hepatitis Nausea and vomiting (Acute) Elevated LFTs (Acute) Depression (Acute) Asthma Neutropenia Gram-positive cocci bacteremia Abscess Metabolic encephalopathy REG (acute kidney injury) Vomiting Elevated LFTs Weakness (Acute) Acute pancreatitis (Acute) REG (acute kidney injury) (Acute) DKA (diabetic ketoacidoses) (Acute) Coffee ground emesis (Acute) Hyperglycemia Alcoholism (Acute) Discharge planning issues MRSA (methicillin resistant Staphylococcus aureus) carrier Acute renal failure (ARF) Electrolyte and fluid disorder Anemia Acute upper GI hemorrhage Urinary tract infection Hypophosphatemia (Acute) Hypokalemia (Acute) Lactic acidosis (Acute) Hypoalbuminemia (Acute) Edema Elevated INR (Acute) Acute liver failure (Acute) Coagulopathy Elevated LFTs (Acute) Tachycardia (Acute) Alcohol abuse (Acute) Asthma Cirrhosis (Acute) GERD (gastroesophageal reflux disease) Abnormal TSH Leukopenia DVT prophylaxis Diabetes Alcohol abuse (Acute) Tremor (Acute) Leukocytopenia, unspecified Thrombocytopenia Anemia Diabetes Pancytopenia Anxiety (Chronic) Alcohol abuse (Acute) Medical History Transaminitis DM (diabetes mellitus), type 2 Alcoholic cirrhosis of liver without ascites Tachycardia Acute alcoholic pancreatitis Suicidal ideation Hypophosphatemia Hypomagnesemia Metabolic acidosis Thrush Alcoholic intoxication Thrombocytopenia Alcohol withdrawal Acute alcoholic hepatitis Acidosis, metabolic Acute pancreatitis Electrolyte abnormality DVT prophylaxis Alcohol withdrawal Asthma Surgical History History of dental surgery wisdom teeth History of esophagogastroduodenoscopy (EGD) Family History Father Prediabetes Grandfather (Paternal) Diabetes Mother Hypertension MVP (mitral valve prolapse) Social History Smoking Status: Never smoker Tobacco Type: Cigarettes Age Quit Using Tobacco: 39; packs per day: 1; Second Hand Exposure: No; Do You Dip or Chew Tobacco: No; Hx Alcohol Use: Yes Alcohol type: hard liquor Alcohol type Comment: 4 glasses wine daily Hx Substance Use: No Preferred Language: Tamazight Communication Ability: Effective Visual Impairment: No Limitations Environmental Field Technician Required: No Beliefs That Will Affect Care: None marital status: marital status details: Single parent Current Living Situation: Alone Current Living Situation Comment: daughter current occupational status: unemployed How many Children do You have: 1 Feels Safe at Home: Yes Childhood Exposure to Second-Hand Smoke: No Gender Identity: Female Assistive Devices: None Review of Systems Review of Systems: All systems reviewed and are unremarkable except as noted below Physical Exam Physical Exam: Lying in bed without any acute distress Constitutional: well developed, well nourished, + ill appearing and + obese Eyes: PERRL, conjunctivae normal, anicteric sclerae ENMT: external ear and nose normal, oropharynx normal Neck: trachea midline, no thyromegaly Respiratory: no respiratory distress Auscultation: lungs clear to auscultation bilaterally Cardiovascular: Rate/Rhythm: regular rate and regular rhythm; not tachycardic Gastrointestinal (Abdomen): Inspection/Auscultation: normal bowel sounds; abdomen not distended Percussion/Palpation: abdomen soft; abdomen nontender Musculoskeletal: No acute arthritis involving any of the joint Neurologic: normal touch/pain/proprioception and moves all extremities; no focal motor deficits Minimal tremors involving the outstretched hands Lymphatic: no cervical or axillary lymphadenopathy Results & Data Results & Data Vital Signs (Past 12 Hours) Vital Signs Temp Pulse Pulse Resp BP BP Pulse Ox 05/12/24 17:00 97 H 18 110/79 93 05/12/24 16:11 91 H 05/12/24 15:10 84 16 95 05/12/24 13:50 99 H 16 128/94 94 05/12/24 12:28 97 H 14 95 05/12/24 12:11 89 05/12/24 12:07 88 L 05/12/24 12:07 37.2 C 95 H 14 107/78 88 L O2 Del Method 05/12/24 17:00 Room Air 05/12/24 16:11 05/12/24 15:10 Room Air 05/12/24 13:50 Room Air 05/12/24 12:28 Room Air 05/12/24 12:11 05/12/24 12:07 Room Air 05/12/24 12:07 Room Air Laboratory Results Short CBC 05/12/24 Range/Units 12:32 WBC 4.74 L (4.8-10.8) K/ul Hgb 15.6 (12.0-16.0) g/dl Hct 44.7 (37.0-47.0) % Plt Count 274 (130-400) K/uL BMP 05/12/24 12:32 Sodium 141 Potassium 4.0 Chloride 105 Carbon Dioxide 26 BUN 7 Creatinine 0.66 Glucose 201 H Calcium 10.2 Liver Function 05/12/24 Range/Units 12:32 Total Bilirubin 0.5 (0.2-1.0) mg/dl AST 63 H (13-39) U/L ALT 92 H (7-52) U/L Alkaline Phosphatase 202 H (34-104) U/L Albumin 4.4 (3.4-5.0) gm/dl Medications Administered Current Inpatient Medications Heparin Sodium (Porcine) (Heparin Sod 5,000 Unit/0.5 Ml Vial) 5,000 units SQ Q12 ARMANI Stop: 06/11/24 20:59 Thiamine HCl 100 mg/ Syringe 10 mls @ 2 mls/min IV QAM ARMANI Stop: 06/11/24 17:59 Folic Acid 1 mg/ Syringe 10 mls @ 5 mls/min IV QAM ARMANI Stop: 06/11/24 17:59 Lorazepam (Lorazepam 1 Mg Tab) 1 mg PO ONE PRN; Protocol PRN Reason: EtoH Withdrawal AWSS 6,7,8,9,10 Lorazepam (Lorazepam 2 Mg/1 Ml Vial) 1 mg IV ONE PRN; Protocol PRN Reason: EtoH Withdrawal AWSS 6-10 Code Status & VTE Plan VTE Prophylaxis Plan VTE Prophylaxis will be ordered: Yes (3) Alcohol withdrawal Complication of substance-induced condition: with unspecified complication Qualified Code(s): F10.939 - Alcohol use, unspecified with withdrawal, unspecified
[2024-05-12] MEDS: FOLIC ACID 1 MG in SYRINGE 9.8 ML IV ONE (18:29)
[2024-05-12] MEDS: THIAMINE HCL 100 MG in SYRINGE 9 ML IV ONE (18:29)
[2024-05-12] MEDS: LORazepam 1 MG TAB PO PRN (18:45)
[2024-05-12] MEDS ORDERED: NON-FORMULARY MEDICATION (Insulin Aspart (Niacinamide) [Fiasp Flextouch U-100 Insulin] 100 SQ SCH (21:05)
--- NOTE | 2024-05-12 21:21 | Electrocardiogram Report ---
Test Reason : Blood Pressure : */* mmHG Vent. Rate : 85 BPM Atrial Rate : 85 BPM P-R Int : 148 ms QRS Dur : 78 ms QT Int : 332 ms P-R-T Axes : 48 19 30 degrees QTcB Int : 395 ms Normal sinus rhythm Low voltage QRS Borderline ECG When compared with ECG of 28-Apr-2024 22:20, Borderline criteria for Inferior infarct are no longer Present Confirmed by Kevin Lambert ([id number]) on 05/12/2024 9:21:18 PM Referred By: Confirmed By: Kevin Lambert
[2024-05-12] MEDS ORDERED: GLUCOSE 10 TAB/TUBE PO PRN (21:30)
[2024-05-12] MEDS ORDERED: CARBOHYDRATES FOR HYPOGLYCEMIA PO PRN (21:30)
[2024-05-12] MEDS ORDERED: DEXTROSE 50% 50 ML SYRINGE IV PRN (21:30)
[2024-05-12] MEDS ORDERED: GLUCAGON FOR INJ 1 MG VIAL SQ PRN (21:30)
[2024-05-12] MEDS ORDERED: GLUCOSE 40% GEL 15 GM TUBE PO PRN (21:30)
[2024-05-12] MEDS: ALBUTEROL HFA 8 GM INHALER INH SCH (21:46)
[2024-05-12] MEDS: GABAPENTIN 600 MG TAB PO SCH (21:46)
[2024-05-12] MEDS: LORazepam 0.5 MG TAB PO PRN (21:46)
[2024-05-12] MEDS: HEPARIN SOD 5,000 UNIT/0.5 ML VIAL SQ SCH (21:46)
[2024-05-12] MEDS: traZODone HCL 100 MG TAB PO SCH (22:42)
[2024-05-12] MEDS: busPIRone 5 MG TAB PO SCH (22:43)
[2024-05-13] MEDS: hydrOXYzine HCl 25 MG TAB PO PRN (06:15)
[2024-05-13 06:18] LABS: BUN Creatinine Ratio 17.6 (10-20); Calcium 9.5 mg/dl (8.6-10.3); Creatinine Clr Calc Pharmacy 103.6 ml/min; Potassium 4.2 mmol/L (3.5-5.1)
[2024-05-13] MEDS: CEROVITE ADV FORMULA TAB PO SCH (08:06)
[2024-05-13] MEDS: ESCITALOPRAM OXALATE 20 MG TAB PO SCH (08:07)
[2024-05-13] MEDS: FLUTICASONE/VILANTEROL 200/25MCG 14 PUFFS/INHALER INH SCH (08:10)
[2024-05-13] MEDS: diazePAM 5 MG TABLET PO SCH (08:37)
[2024-05-13] MEDS ORDERED: NON-FORMULARY MEDICATION (Magnesium 30 mg Tablet) PO SCH (09:00)
[2024-05-13] MEDS ORDERED: NON-FORMULARY MEDICATION (Insulin Glargine-Yfgn [Semglee(Insulin Glarg-Yfgn)Pen] 100 unit/ SQ SCH (09:00)
[2024-05-13] MEDS: THIAMINE HCL 100 MG in SYRINGE 9 ML IV SCH (09:47)
[2024-05-13] MEDS: INSULIN ASPART PER UNIT CHARGE SC SCH (09:49)
[2024-05-13] MEDS: LANTUS PER UNIT CHARGE SC SCH (09:51)
[2024-05-13] MEDS: FOLIC ACID 1 MG in SYRINGE 9.8 ML IV SCH (10:28)
--- OUTSIDE RECORDS SUMMARY | 2024-05-13 12:23 | External Medical Summary | Summary of Care ---
Author Name Unknown Organization [facility] Address [address] [place] [address] Phone [phone] Care Team Providers Care Raw Products Director Name Role Phone Krystin Graves MD Primary Care Provid er Reason for Visit * Reason Onset Date Comments Appointment 05/11/2024 Encounter Details Date Type Department Care Team (Late st Contact Info) Description 05/11/2024 Telephone [facility] [address] [place] [address] Krystin Graves MD [address] [place] [address] Appointment Allergies Active Allergy Reactions Criticality Noted Date Comments Doxycycline High 07/15/2023 arthralgia Theophylline 04/30/2002 anxiety Theophylline Sodium Glycinate 2004 nervous documented as of this encounter (statuses as of 05/11/2024) Medications Multiple Vitamins-Minerals (MULTIVITAMIN ADULT) TABS Take by mouth. Act eleonora Fluticasone-Salmet agatha 250-50 MCG/ACT Inhalation Aerosol Powder Breath Activated (Advair Diskus)Indications :Moderate persistent asthma without complication Inhale 1 Puff by mouth in the morning and 1 Puff before bedtime. 3 Each 3 12/21/19 Active Glycopyrrolate 1 MG Oral Tablet (Francisco)Indicatio ns:Focal hyperhidrosis Take 1 Tablet by mouth 3 times a day as needed (sweating). 30 Tablet 1 02/12/20 23 Active Atorvastatin Calcium 20 MG Oral Tablet (Lipitor)Indicatio ns:Dyslipidemia, goal LDL below 70 Take 1 Tablet by mouth daily. 90 Tablet 3 02/12/20 23 Active Additional Information Patient not taking.Reported on 05/04/2024 FreeStyle [place] Lite w/Device KitIndications:DM type 2, not at goal (HCC) Use to check sugars daily. E 11.9 1 Kit 04/16/20 23 Active Triamcinolone Acetonide 55 MCG/ACT Nasal Aerosol (Nasacort Allergy 24HR) Administer into nostril as needed for Rhinitis. Active Zinc 20 MG Oral Capsule Take by mouth. Activ e Melatonin 5 MG Oral Tablet Disintegrating Take by mouth. Active Cyclobenzaprine HCl 5 MG Oral Tablet (Flexeril)Indicati ons:Hip pain, left,Strain of left piriformis muscle, initial encounter Take 1 Tablet by mouth 3 times a day as needed for Muscle spasms. 30 Tablet 07/29/19 24 Active Additional Information Patient not taking.Reported on 05/04/2024 busPIRone HCl 10 MG Oral Tablet (Buspar)Indication s:Anxiety Take 2 Tablets by mouth in the morning and 2 Tablets at noon and 2 Tablets before bedtime. 540 Tablet 3 09/17/19 24 Active BD Pen Needle Gertrude 2nd Gen 32G X 4 MM (Insulin Pen Needle)Indications :DM type 2, not at goal (HCC) Use to inject insulin 4 times daily. E 11.9 400 Each 3 09/29/19 24 Active Magnesium 30 MG Oral Tablet Take by mouth. Act eleonora Albuterol Sulfate HFA 108 (90 Base) MCG/ACT Inhalation Aerosol SolutionIndication s:Moderate persistent asthma without complication Inhale 2 Puffs by mouth in the morning and 2 Puffs at noon and 2 Puffs in the evening and 2 Puffs before bedtime. Inhale 2 Puffs by mouth 4 times a day.. 54 g 3 10/16/19 24 Active Montelukast Sodium 10 MG Oral Tablet (Singulair)Indicat ions:Moderate persistent asthma without complication Take 1 Tablet by mouth at bedtime. 90 Tablet 3 12/05/19 24 Active Additional Information Patient not taking.Reported on 05/04/2024 LORazepam 0.5 MG Oral Tablet (Ativan)Indication s:Panic attack Take 1 Tablet by mouth 3 times a day as needed for Anxiety. 15 Tablet 02/09/20 24 Active Fiasp FlexTouch 100 UNIT/ML Subcutaneous Solution Pen-injector (Insulin Aspart (w/Niacinamide))In dications:DM type 2, not at goal (HCC) Inject 5 units under the skin before breakfast, 4 units with lunch, and 4 units with dinner. 15 mL 3 03/16/20 24 Active Escitalopram Oxalate 20 MG Oral Tablet (Lexapro)Indicatio ns:Anxiety,Primary insomnia Take 1 Tablet by mouth in the morning. 90 Tablet 1 04/06/20 24 Active traZODone HCl 100 MG Oral Tablet (Desyrel)Indicatio ns:Anxiety,Primary insomnia Take 1 Tablet by mouth at bedtime. 90 Tablet 1 04/06/20 24 Active hydrOXYzine HCl 50 MG Oral TabletIndications: Anxiety Take 1 Tablet by mouth every 8 hours as needed for Anxiety (insomnia). 90 Tablet 3 04/06/20 24 Active Insulin Glargine-yfgn 100 UNIT/ML Subcutaneous Solution Pen-injector (Semglee (yfgn))Indications :DM type 2, not at goal (HCC) Inject 32 Units under the skin in the morning. 30 mL 04/09/20 24 Active FreeStyle Beth 3 Plus Sensor Replace sensors every 14 days. 6 Each 04/09/20 24 Active Gabapentin 600 MG Oral Tablet (Neurontin)Indicat ions:Alcoholism (HCC) Take 1 Tablet by mouth in the morning and 1 Tablet at noon and 1 Tablet before bedtime. 90 Tablet 1 05/04/20 24 Active documented as of this encounter (statuses as of 05/11/2024) Active Problems Problem Noted Date Diagnosed Date Alcoholic cirrhosis of liver without ascites Carrier of methicillin resis tant Staphylococcus aureus (MRSA) 10/21/2022 DM type 2, not at goal 03/13/2020 Major depressive disorder, recurrent episode, mo derate 08/03/2019 Alcoholism 05/13/2019 Panic disorder 12/09/2018 Asthma, moderate persistent 08/21/2012 Anxiety documented as of this encounter (statuses as of 05/11/2024) Resolved Problems Problem Noted Date Diagnosed Date [...] 03/12/2019 1 08/01/2018 Obstructive lung disease 06/19/201806/2022 ADVANCE DIRECTIVE INFORMATION 12/03/2007 04/26/2024 Overview (12/03/2007): No, Advance Directive brochure offered , patient declined. . Normal , first 08/31/200205/24 Asthma with severity to be determined 04/30/2002 08/21/2012 Overview (10/02/2015): ICD-10 update of inactive term Asthma with severity to be determined 03/19/2018 Overview (09/30/2017): hospitalized for 2 days documented as of this encounter (statuses as of 05/11/2024) Immunizations Name Administration Dates Next Due COVID-19 mRNA, LNP-s, No Pre serve, 2-Dose Series ([email or web address]) 04/17/2021,08/22/2020 Covid-19, Mrna, Lnp-s, Pf, B ivalent, 30 Mcg, IM, 12 yrs and above ([email or web address]) 03/20/2022,09/25/2021 Hepatitis B, 20+ yrs 03/05/2021 Pneumococcal Conjugate Vacci ne, 20-valent ([id number]) 02/20/2023 Pneumococcal Polysaccharide PPV23 (Pneumovax) 03/19/2018 Seasonal [...] money to get more. 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 documented in this encounter Plan of Treatment Upcoming Encounters Date Type Department Care Team (Late st Contact Info) Description 05/25/2024 8:20 AM EST [address] [address] [facility] [address] [facility] [address] 06/04/2024 2:40 PM EST [address] [address] [facility]in Graves [facility] [address] [facility] [address] 08/19/2024 10:00 AM EST Office Visit Hepatology, [facility] [address] [facility] [place] [id number] Vee Juarez MD [address] [place] [phone] Health Maintenance Due Date Last Done Comments [...] 10/14/2023, 0 01/2024, 08/02/2022, Additional history exists COVID-19 Vaccine ( season) 2024 04/06/2024, 03/20/2022, 09/25/2021, Additional history exists Diabetic Eye Exam 07/29/2024 [...] filedocumented as of this encounter Care Teams Raw Products Director Relationship Specialty Start Date End Date Krystin Graves MD [address] [place] [address] PCP - General Family Medicine 10/21/22 documented as of this encounter
--- OUTSIDE RECORDS SUMMARY | 2024-05-13 12:23 | External Medical Summary | Summary of Care ---
Author Name Unknown Organization [facility] Address [address] [place] [address] Phone [phone] Care Team Providers Care Data Quality Consultant Name Role Phone Krystin Graves MD Primary Care Provid er Encounter Details Date Type Department Care Team (Late st Contact Info) Description 05/12/2024 Orders Only [facility] [address] [place] [address] Krystin Graves MD [address] [place] [address] Allergies Active Allergy Reactions Criticality Noted Date Comments Doxycycline High 07/15/2023 arthralgia Theophylline 04/30/2002 anxiety Theophylline Sodium Glycinate 2004 nervous documented as of this encounter (statuses as of 05/12/2024) Medications Multiple Vitamins-Minerals (MULTIVITAMIN ADULT) TABS Take by mouth. Act eleonora Fluticasone-Salmet agatha 250-50 MCG/ACT Inhalation Aerosol Powder Breath Activated (Advair Diskus)Indications :Moderate persistent asthma without complication Inhale 1 Puff by mouth in the morning and 1 Puff before bedtime. 3 Each 3 12/21/19 23 Active Glycopyrrolate 1 MG Oral Tablet (Robinul)Indicatio ns:Focal hyperhidrosis Take 1 Tablet by mouth 3 times a day as needed (sweating). 30 Tablet 1 02/12/20 23 Active Atorvastatin Calcium 20 MG Oral Tablet (Lipitor)Indicatio ns:Dyslipidemia, goal LDL below 70 Take 1 Tablet by mouth daily. 90 Tablet 3 02/12/20 23 Active Additional Information Patient not taking.Reported on 05/04/2024 FreeStyle [place] Lite w/Device KitIndications:DM type 2, not at goal (HCC) Use to check sugars daily. E 11.9 1 Kit 04/16/20 Active Triamcinolone Acetonide 55 MCG/ACT Nasal Aerosol [...] needed for Muscle spasms. 30 Tablet 07/29/19 Active Additional Information Patient not taking.Reported on [...] as of this encounter (statuses as of 05/12/2024) Active Problems Problem Noted Date Diagnosed Date Alcoholic cirrhosis of liver without ascites Carrier of methicillin resis tant Staphylococcus aureus (MRSA) 10/21/2022 DM type 2, not at goal 03/13/2020 Major depressive disorder, recurrent episode, mo derate 08/03/2019 Alcoholism 05/13/2019 Panic disorder 12/09/2018 Asthma, moderate persistent 08/21/2012 Anxiety documented as of this encounter (statuses as of 05/12/2024) Resolved Problems Problem Noted Date Diagnosed Date [...] as of this encounter (statuses as of 05/12/2024) Immunizations Name Administration Dates Next Due COVID-19 mRNA, LNP-s, No Pre serve, 2-Dose Series ([email or web address]) 04/17/2021,08/22/2020 Covid-19, Mrna, Lnp-s, Pf, B ivalent, 30 Mcg, IM, 12 yrs and above (Pfizer) 03/20/2022,09/25/2021 Hepatitis B, 20+ yrs 03/05/2021 Pneumococcal Conjugate Vacci ne, 20-valent ([id number]) 02/20/2023 Pneumococcal Polysaccharide PPV23 (Pneumovax) 03/19/2018 Seasonal [...] 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 Not on file Not o n file documented as of this encounter Plan of Treatment Upcoming Encounters Date Type Department Care Team (Late st Contact Info) Description 05/25/2024 8:20 AM EST [address] [address] Krystin Graves MD [address] [facility] [place] [address] 06/04/2024 2:40 PM EST Office Visit [address] [place] [address] Krystin Graves MD [address] [facility] [place] [address] 08/19/2024 10:00 AM EST Office Visit Hepatology, [facility] [address] [facility] [place] [address] Vee Juarez MD [address] [place] [phone] Health Maintenance Due Date Last Done Comments [...] Additional history exists Diabetic Eye Exam 07/29/2024 05/11/2024, , 02/23/2022 GFR 11/11/2024 11/12/2023, 10/22, 10/14/2023, Additional [...] Associated Diagnosis Comments DIABETIC EYE EXAM Routine 05/11/2024 documented in this encounter Results * DIABETIC EYE EXAM (05/11/2024) 05/11/2024 us History Per Patient OTHER Final Result OUTSIDE LAB (SEE SCANNED REPORT) documented in this encounter Care Teams Data Quality Consultant Relationship Specialty Start Date End Date Krystin Graves MD [address] [facility] [place] [address] PCP - General Family Medicine 10/21/22 documented as of this encounter
--- OUTSIDE RECORDS SUMMARY | 2024-05-13 12:23 | External Medical Summary | Summary of Care ---
Author Name Unknown Organization [facility] Address [address] [place] [address] Phone [phone] Care Team Providers Care Sr. Merchandise Planner Name Role Phone Krystin Graves MD Primary Care Provid er Reason for Visit * Reason Onset Date Comments Hospital Follow-Up 05/03/2024 ALEX ([facility]) Encounter Details Date Type Department Care Team (Late st Contact Info) Description 05/03/[address] [address] Erika Dixon, BOZENA Hospital Follow-Up (ALEX ([facility])) Allergies Active Allergy Reactions Criticality Noted Date Comments Doxycycline High 07/15/2023 arthralgia Theophylline 04/30/2002 anxiety Theophylline Sodium Glycinate 2004 nervous documented as of this encounter (statuses as of 05/03/2024) Medications Multiple Vitamins-Minerals (MULTIVITAMIN ADULT) TABS Take [...] as needed (sweating). 30 Tablet 1 02/12/20 Active Atorvastatin Calcium 20 MG Oral Tablet (Lipitor)Indicatio ns:Dyslipidemia, goal LDL below 70 Take 1 Tablet by mouth daily. 90 Tablet 3 02/12/20 23 Active Additional Information Patient not taking.Reported on 07/12/2023 FreeStyle [place] Lite w/Device KitIndications:DM type 2, not at [...] as needed for Pain, Severe. 10 Tablet 07/29/19 Active Additional Information Patient not taking.Reported on 10/14/2023 Cyclobenzaprine HCl 5 MG Oral Tablet (Flexeril)Indicati [...] bedtime. 90 Tablet 3 12/05/19 24 Active Naltrexone HCl 50 MG Oral Tablet (Revia)Indications :Alcoholism (HCC),Alcohol withdrawal syndrome with complication (HCC) Take 1 Tablet by mouth in the morning. 90 Tablet 1 01/06/20 24 Active Escitalopram Oxalate 10 MG Oral Tablet (Lexapro)Indicatio ns:Anxiety,Panic disorder,Major depressive disorder, recurrent episode, moderate (HCC) Take 1 Tablet by mouth in the morning. Add to 20mg for total daily dose of 30mg.. 90 Tablet 1 02/09/20 24 Active LORazepam 0.5 MG Oral Tablet (Ativan)Indication [...] sensors every 14 days. 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 . Normal , first 08/31/2002/02/2003 Asthma with severity to be determined 04/30/2002 08/21/2012 Overview (10/02/2015): ICD-10 update of inactive term Asthma with severity to be determined 03/19/2018 Overview (09/30/2017): hospitalized for 2 days documented as of this encounter (statuses as of 05/03/2024) Immunizations Name Administration Dates Next Due COVID-19 mRNA, LNP-s, No Pre serve, 2-Dose Series ([employer]) 04/17/2021,08/22/2020 Covid-19, Mrna, Lnp-s, Pf, B ivalent, 30 Mcg, IM, 12 yrs and above (Pfizer) 03/20/2022,09/25/2021 Hepatitis B, 20+ yrs 03/05/2021 Pneumococcal Conjugate Vacci ne, 20-valent ([id number]) 02/20/2023 Pneumococcal Polysaccharide PPV23 (Pneumovax) 03/19/2018 Seasonal [...] 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 Not on file Not o n file documented as of this encounter Miscellaneous Notes * Telephone Encounter - Erika Dixon RN - 05/03/2024 3:09 PM EST Transitions of Care Note Reason for Referral:Recent Admission Phone visit for follow up: ALEX Admitted to: [facility], Date: 04/29/2024 Discharged to: Home, Date: 05/01/2024 Diagnosis driving hospitalization: ETOH Withdrawal New medications: Gabapentin, Novolog Insulin Discontinued medication: Fiasp Insulin Pen, Semglee Insulin pen Attempted Phone Call First Attempt Call Outcome Left Voicemail/Message Erika Dixon RN documented in this encounter Plan of Treatment Upcoming Encounters Date Type Department Care Team (Late st Contact Info) Description 05/04/2024 2:00 PM EST [facility] [address] [facility] [phone] Krystin Graves MD [address] [facility] [place] [address] Health Maintenance Due Date Last Done Comments [...] 04/14/2024 10/14/2023, 01/2024, 08/02/2022, Additional history exists COVID-19 Vaccine [...] filedocumented as of this encounter Care Teams Sr. Merchandise Planner Relationship Specialty Start Date End Date Krystin Graves MD [address] [place] [id number] PCP - General Family Medicine 10/21/22 documented as of this encounter
--- OUTSIDE RECORDS SUMMARY | 2024-05-13 12:23 | External Medical Summary | Summary of Care ---
Author Name Unknown Organization [facility] Address [address] [place] [address] Phone [phone] Care Team Providers Care Hat Lining Paster Name Role Phone Krystin Graves MD Primary Care Provid er Reason for Visit * Reason Onset Date Comments Hospital Follow-Up 05/03/2024 ALEX ([facility]) Encounter Details Date Type Department Care Team (Late st Contact Info) Description 05/03/[address] [address] Erika Dixon, BOZENA Hospital Follow-Up (ALEX ([facility])) Allergies Active Allergy Reactions Criticality Noted Date Comments Doxycycline High 07/15/2023 arthralgia Theophylline 04/30/2002 anxiety Theophylline Sodium Glycinate 2004 nervous documented as of this encounter (statuses as of 05/04/2024) Medications Multiple Vitamins-Minerals (MULTIVITAMIN ADULT) TABS Take by mouth. Act eleonora Fluticasone-Salme terol 250-50 MCG/ACT Inhalation Aerosol Powder Breath Activated (Advair Diskus)Indication s:Moderate persistent asthma without complication Inhale 1 Puff by mouth in the morning and 1 Puff before bedtime. 3 Each 3 023 Active Glycopyrrolate 1 MG Oral Tablet (Robinul)Indicati ons:Focal hyperhidrosis Take 1 Tablet by mouth 3 times a day as needed (sweating). 30 Tablet 1 023 Active Atorvastatin Calcium 20 MG Oral Tablet (Lipitor)Indicati ons:Dyslipidemia, goal LDL below 70 Take 1 Tablet by mouth daily. 90 Tablet 3 023 Active Additional Information Patient not taking.Reported on 05/04/2024 FreeStyle [place] Lite w/Device KitIndications:DM type 2, not at goal (HCC) Use to check sugars daily. E 11.9 1 Kit Active Triamcinolone Acetonide 55 MCG/ACT Nasal Aerosol (Nasacort Allergy 24HR) Administer into nostril as needed for Rhinitis. Active Zinc 20 MG Oral Capsule Take by mouth. Activ e Melatonin 5 MG Oral Tablet Disintegrating Take by mouth. Active Cyclobenzaprine HCl 5 MG Oral Tablet (Flexeril)Indicat ions:Hip pain, left,Strain of left piriformis muscle, initial encounter Take 1 Tablet by mouth 3 times a day as needed for Muscle spasms. 30 Tablet Active Additional Information Patient not taking.Reported on 05/04/2024 busPIRone HCl 10 MG Oral Tablet (Buspar)Indicatio ns:Anxiety Take 2 Tablets by mouth in the morning and 2 Tablets at noon and 2 Tablets before bedtime. 540 Tablet 3 Active BD Pen Needle Gertrude 2nd Gen 32G X 4 MM (Insulin Pen Needle)Indication s:DM type 2, not at goal (HCC) Use to inject insulin 4 times daily. E 11.9 400 Each 3 Active Magnesium 30 MG Oral Tablet Take by mouth. Act eleonora Albuterol Sulfate HFA 108 (90 Base) MCG/ACT Inhalation Aerosol SolutionIndicatio ns:Moderate persistent asthma without complication Inhale 2 Puffs by mouth in the morning and 2 Puffs at noon and 2 Puffs in the evening and 2 Puffs before bedtime. Inhale 2 Puffs by mouth 4 times a day.. 54 g 3 024 Active Montelukast Sodium 10 MG Oral Tablet (Singulair)Indica tions:Moderate persistent asthma without complication Take 1 Tablet by mouth at bedtime. 90 Tablet 3 024 Active Additional Information Patient not taking.Reported on 05/04/2024 LORazepam 0.5 MG Oral Tablet (Ativan)Indicatio ns:Panic attack Take 1 Tablet by mouth 3 times a day as needed for Anxiety. 15 Tablet 024 Active Fiasp FlexTouch 100 UNIT/ML Subcutaneous Solution Pen-injector (Insulin Aspart (w/Niacinamide))I ndications:DM type 2, not at goal (HCC) Inject 5 units under the skin before breakfast, 4 units with lunch, and 4 units with dinner. 15 mL 3 024 Active Escitalopram Oxalate 20 MG Oral Tablet (Lexapro)Indicati ons:Anxiety,Prima ry insomnia Take 1 Tablet by mouth in the morning. 90 Tablet 1 024 Active traZODone HCl 100 MG Oral Tablet (Desyrel)Indicati ons:Anxiety,Prima ry insomnia Take 1 Tablet by mouth at bedtime. 90 Tablet 1 024 Active hydrOXYzine HCl 50 MG Oral TabletIndications :Anxiety Take 1 Tablet by mouth every 8 hours as needed for Anxiety (insomnia). 90 Tablet 3 024 Active Insulin Glargine-yfgn 100 UNIT/ML Subcutaneous Solution Pen-injector (Semglee (yfgn))Indication s:DM type 2, not at goal (HCC) Inject 32 Units under the skin in the morning. 30 mL 024 Active FreeStyle Beth 3 Plus Sensor Replace sensors every 14 days. 6 Each 024 Active traMADol HCl 50 MG Oral Tablet (Ultram)Indicatio ns:Hip pain, left Take 1 Tablet by mouth every 6 hours as needed for Pain, Severe. 10 Tablet 024 2023 Discontinued Naltrexone HCl 50 MG Oral Tablet (Revia)Indication s:Alcoholism (HCC),Alcohol withdrawal syndrome with complication (HCC) Take 1 Tablet by mouth in the morning. 90 Tablet 1 024 2023 Discontinued(P atient preference/dis continuation) Escitalopram Oxalate 10 MG Oral Tablet (Lexapro)Indicati ons:Anxiety,Panic disorder,Major depressive disorder, recurrent episode, moderate (HCC) Take 1 Tablet by mouth in the morning. Add to 20mg for total daily dose of 30mg.. 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 (MRSA) 10/21/2022 DM type 2, not at goal 03/13/2020 Major depressive disorder, recurrent episode, mo derate 08/03/2019 Alcoholism 05/13/2019 Panic disorder 12/09/2018 Asthma, moderate persistent 08/21/2012 Anxiety documented as of this encounter (statuses as of 05/04/2024) Resolved Problems Problem Noted Date Diagnosed Date [...] as of this encounter (statuses as of 05/04/2024) Immunizations Name Administration Dates Next Due COVID-19 mRNA, LNP-s, No Pre serve, 2-Dose Series ([employer]) 04/17/2021,08/22/2020 Covid-19, Mrna, Lnp-s, Pf, B ivalent, 30 Mcg, IM, 12 yrs and above ([employer] App) 03/20/2022,09/25/2021 HEP A - Hepatitis A (Adult > 18 yrs) 01/21/2001 Hepatitis B, 20+ yrs 03/05/2021 Pneumococcal Conjugate Vacci ne, 20-valent ([id number]) 02/20/2023 Pneumococcal Conjugate Vacci ne, 7 Valent 08/07/2000 Pneumococcal Polysaccharide PPV23 (Pneumovax) 03/19/2018 Seasonal Influenza Vac., MDV , IM, 0.5 mL (Fluzone) 03/15/2014,03/31/2013,05/04/2012,04/30,05/08/2005,05/11/2003,05/11/2003 ,05/05/2002 Seasonal Influenza Virus Vac cine, Unspecified Formulation 04/22/2019,03/19/2018,04/07/2017,03/15,03/31/2013,05/04/2012,04/30/2006 ,05/08/2005,05/11/2003,05/05/2002 Seasonal Influenza, PF, 6 M & above, IM , (FluLaval or Fluzone) 03/13/2020,04/22/2019,03/19/2018 Seasonal Influenza, Quadrivalent, ID 04/07/2017 Seasonal Influenza, Quadriva lent, No Preserve, IM 04/06/2015 Seasonal Influenza, Trivalen t, (IIV3), PF, (Fluzone) 04/01/2024 TD - Tetanus/Diptheria (ADULT) 10/09/2005,1994 TD, Preservative [...] 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 ALEX #2 not needed * Telephone Encounter - Erika Dixon RN - 05/03/2024 3:09 PM EST Transitions of Care Note Reason for Referral:Recent Admission Phone visit for follow up: ALEX Admitted to: [facility], Date: 04/29/2024 Discharged to: Home, Date: 05/01/2024 Diagnosis driving hospitalization: ETOH Withdrawal New medications: Gabapentin, Novolog Insulin Discontinued medication: Fiasp Insulin Pen, Semglee Insulin pen Attempted Phone Call First Attempt Call Outcome Left Voicemail/Message Erika Dxion RN documented in this encounter Plan of Treatment Upcoming Encounters Date Type Department Care Team (Late st Contact Info) Description 06/04/2024 2:40 PM EST Office [facility] [address] [facility] [address] Krystin Graves MD [address] [facility] [address] 08/19/2024 10:00 AM EST Office Visit Hepatology, [facility] [address] [place] [address] Vee Juarez MD [address] [place] [phone] Health Maintenance Due Date Last Done Comments [...] 02/09/2018, Additional history exists HbA1c 04/14/2024 10/14/2023, 01/0 01/2024, 08/02/2022, Additional history exists COVID-19 Vaccine [...] filedocumented as of this encounter Care Teams Hat Lining Paster Relationship Specialty Start Date End Date Krystin Graves MD [address] [place] [address] PCP - General Family Medicine 10/21/22 documented as of this encounter
--- OUTSIDE RECORDS SUMMARY | 2024-05-13 12:23 | External Medical Summary | Summary of Care ---
Author Name Unknown Organization [facility] Address [address] [place] [address] Phone [phone] Care Team Providers Care Building Rental Superintendent Name Role Phone Krystin Graves MD Primary Care Provid er Reason for Referral * Evaluate & Treat - Unlimited Visits (Within 10 days (routine)) - Authorized Specialty Diagnoses / Procedures Referred By Yaneli hidalgo Referred To Contact Gastroenterology Diagnoses Alcoholic cirrhosis of liver without ascites (HCC) Krystin Graves MD [address] [place] [address] Phone: tel: fax: Referral ID Status Reason Start Date Expiration Date Visits Requested Visits Authorized [id number] Authorized Specialty Services Required 4 999 999 Question Answer For what condition is the patient being referred? Liver conditions Referral Priority Within 10 days (routine) Where should this appointment be scheduled? [facility] Reason for Visit * Reason Onset Date Comments Hospital Follow-Up Would like to discuss the naltrexone and the Gabapentin Hospital Follow-Up 05/04/2024 Encounter Details Date Type Department Care Team (Late st Contact Info) Description 05/04/2024 2:00 PM EST Office Visit [facility] [address] [place] [facility] [place] [address] Kyrstin Graves MD [address] [place] [facility] [place] [address] Hospital discharge follow-up*; DM type 2, not at goal (HCC); Alcoholic cirrhosis of liver without ascites (HCC); Alcoholism (HCC); Anxiety; Panic disorder; Pancytopenia (HCC) Allergies Active Allergy Reactions Criticality Noted [...] Additional Information Patient not taking.Reported on 05/04/2024 SaaSAssurance Lite w/Device KitIndications:DM type 2, not at goal ([facility]) Use to check sugars daily. E 11.9 1 Kit 023 Active Triamcinolone Acetonide 55 MCG/ACT Nasal Aerosol [...] as needed for Muscle spasms. 30 Tablet 024 Active Additional Information Patient not taking.Reported [...] 4 times a day.. 54 g 3 Active Montelukast Sodium 10 MG Oral Tablet (Singulair)Indica tions:Moderate persistent asthma without complication Take 1 Tablet by mouth at bedtime. 90 Tablet 3 Active Additional Information Patient not taking.Reported [...] the skin in the morning. 30 mL Active FreeStyle Beth 3 Plus Sensor Replace sensors every 14 days. 6 Each Active Gabapentin 600 MG Oral Tablet (Neurontin)Indica tions:Alcoholism (HCC) Take 1 Tablet by mouth in the morning and 1 Tablet at noon and 1 Tablet before bedtime. 90 Tablet 1 Active traMADol HCl 50 MG Oral Tablet [...] 30mg.. 90 Tablet 1 024 2023 Discontinued Gabapentin 600 MG Oral Tablet (Neurontin) Take 1 Tablet by mouth in the morning. 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 Not on file Not on file Not o n file documented as of this encounter Last Filed Vital Signs Vital Sign Reading Time Taken Comments Blood Pressure 100/64 05/04/2024 1:59 PM EST Pulse 80 05/04/2024 1:59 PM EST Temperature 36.2 C (97.2 F) 05/04/2024 1:59 PM ES T Respiratory Rate 17 05/04/2024 1:59 PM EST Oxygen Saturation 98% 05/04/2024 1:59 PM EST Inhaled Oxygen Concentration - - Weight 69.1 kg (152 lb 4.8 oz) 05/04/2024 1:59 P M EST Height 157.5 cm (5' 2") 05/04/2024 1:59 PM EST Body Mass Index 27.86 05/04/2024 1:59 PM EST documented in this encounter Progress Notes * Krystin Graves MD - 05/04/2024 2:24 PM EST ASSESSMENT / PLAN: Marcus Avealr is a 48 year old female with PMHx severe alcoholism w multiple inpatient stays for withdrawal, did complete inpatient rehab at [facility] / hepatitis / pancytopenia / h/o acute pancreatitisand REG / diabetes insulin dependent / recurrent suicidal ideation / severe panic disorder - Here for ALEX - Admitted at [facility] Admission date: 04/29 Discharge date: 05/01 Presented with: alcohol withdrawal, relapse Diagnosis: as above Hospital stay complicated by: 1- none Treatments / Consultation(s): 1- Changes to chronic medications: 1 - gabapentin 600mg TID She historically has not tolerated naltrexone - causes GI upset and diarrhea We reviewed that she can stop this medication for now She is to trial gabapentin, work up slowly over the next few days to 600mg three times daily to treat AUD and anxiety We reviewed medication regimen, to continue all other meds To f/u hepatology Follow-up: Return in about 1 month (around 06/03/2024). | Check-out note: Needs f/u hepatology [facility] discharge follow-up (Primary) - DISCH MED RECON CUR MED LIS - HEMOGLOBIN A1C; Future; Expected date: 08/04/2024 - COMPREHENSIVE METABOLIC PANEL; Future; Expected date: 08/04/2024 - CBC WITH WBC DIFFERENTIAL AND ANEMIA REFLEX WORKUP; Future; Expected date: 08/04/2024 DM type 2, not at goal (HCC) - DISCH MED RECON CUR MED LIS - HEMOGLOBIN A1C; Future; Expected date: 08/04/2024 - COMPREHENSIVE METABOLIC PANEL; Future; Expected date: 08/04/2024 - CBC WITH WBC DIFFERENTIAL AND ANEMIA REFLEX WORKUP; Future; Expected date: 08/04/2024 Alcoholic cirrhosis of liver without ascites (HCC) - DISCH MED RECON CUR MED LIS - HEPATOLOGY REFERRAL OP - HEMOGLOBIN A1C; Future; Expected date: 08/04/2024 - COMPREHENSIVE METABOLIC PANEL; Future; Expected date: 08/04/2024 - CBC WITH WBC DIFFERENTIAL AND ANEMIA REFLEX WORKUP; Future; Expected date: 08/04/2024 Alcoholism (HCC) - DISCH MED RECON CUR MED LIS - HEMOGLOBIN A1C; Future; Expected date: 08/04/2024 - COMPREHENSIVE METABOLIC PANEL; Future; Expected date: 08/04/2024 - CBC WITH WBC DIFFERENTIAL AND ANEMIA REFLEX WORKUP; Future; Expected date: 08/04/2024 - Gabapentin 600 MG Oral Tablet (Neurontin); Take 1 Tablet by mouth in the morning and 1 Tablet at noon and 1 Tablet before bedtime. Anxiety - DISCH MED RECON CUR MED LIS - HEMOGLOBIN A1C; Future; Expected date: 08/04/2024 - COMPREHENSIVE METABOLIC PANEL; Future; Expected date: 08/04/2024 - CBC WITH WBC DIFFERENTIAL AND ANEMIA REFLEX WORKUP; Future; Expected date: 08/04/2024 Panic disorder - DISCH MED RECON CUR MED LIS - HEMOGLOBIN A1C; Future; Expected date: 08/04/2024 - COMPREHENSIVE METABOLIC PANEL; Future; Expected date: 08/04/2024 - CBC WITH WBC DIFFERENTIAL AND ANEMIA REFLEX WORKUP; Future; Expected date: 08/04/2024 Pancytopenia (HCC) - HEMOGLOBIN A1C; Future; Expected date: 08/04/2024 - COMPREHENSIVE METABOLIC PANEL; Future; Expected date: 08/04/2024 - CBC WITH WBC DIFFERENTIAL AND ANEMIA REFLEX WORKUP; Future; Expected date: 08/04/2024 Follow-up: Return in about 1 month (around 06/03/2024). | Check-out note: Needs f/u hepatology yenny If needed, prefers contact by: Ok to leave message on phone: SUBJECTIVE: Nursing Notes: Sade Thorne LPN 05/04/24 1409 Signed The patient has been properly identified by confirmation of name and date of . Chief Complaint Patient presents with Hospital Follow-Up Would like to discuss the naltrexone and the Gabapentin HPI: Marcus Avelar is a 48 year old female. Here for recheck. ALEX See above Here w mom and dad who live 2 hours away They have questions and concerns about daughter's health, tierney her liver health, given all the medicines she is on They have asked her to move in with them They are helping her financially until she starts her new job at [employer] Reviewed sources 1- Patient Active Problem List Diagnosis Asthma, moderate persistent Anxiety Panic disorder Alcoholism [...] day as needed (sweating). 30 Tablet 1 SaaSAssurance Lite w/Device Kit Use to check sugars daily. E 11.9 1 Kit 0 Triamcinolone Acetonide 55 MCG/ACT Nasal Aerosol (Nasacort Allergy 24HR) Administer into nostril asneeded for Rhinitis. Zinc 20 MG Oral Capsule Take by [...] 4 times a day.. 54 g 3 LORazepam 0.5 MG Oral Tablet (Ativan) Take 1 Tablet by mouth 3 times a day as needed for Anxiety. 15 Tablet 0 Fiasp FlexTouch 100 UNIT/ML Subcutaneous Solution Pen-injector (Insulin Aspart (w/Niacinamide)) Inject 5 units under the skin before breakfast, 4 units with lunch, and 4 units with dinner. 15 mL 3 Escitalopram Oxalate 20 MG Oral Tablet (Lexapro) Take 1 Tablet by mouth in the morning. 90 Tablet 1 traZODone HCl 100 MG Oral Tablet (Desyrel) Take 1 Tablet by mouth at bedtime. 90 Tablet 1 hydrOXYzine HCl 50 MG Oral Tablet Take 1 Tablet by mouth every 8 hours as needed for Anxiety (insomnia). 90 Tablet 3 Insulin Glargine-yfgn 100 UNIT/ML Subcutaneous Solution Pen-injector (Semglee (yfgn)) Inject 32 Units under the skin in the morning. 30 mL 0 FreeStyle Beth 3 Plus Sensor Replace sensors every 14 days. 6 Each 0 Gabapentin 600 MG Oral Tablet (Neurontin) Take 1 Tablet by mouth in the morning and 1 Tablet at noon and 1 Tablet before bedtime. 90 Tablet 1 Atorvastatin Calcium 20 MG Oral Tablet (Lipitor) Take 1 Tablet by mouth daily. (Patient not taking:Reported on 05/04/2024) 90 Tablet 3 Cyclobenzaprine HCl 5 MG Oral Tablet (Flexeril) Take 1 Tablet by mouth 3 times a day as needed for Muscle spasms. (Patient not taking: Reported on 05/04/2024) 30 Tablet 0 Montelukast Sodium 10 MG Oral Tablet (Singulair) Take 1 Tablet by mouth at bedtime. (Patient not taking: Reported on 05/04/2024) 90 Tablet 3 No current facility-administered medications for this visit. OBJECTIVE: BP 100/64 | Pulse 80 | Temp 36.2 C (97.2 F) | Resp 17 | Ht 1.575 m (5' 2") | Wt 69.1 kg (152 lb4.8 oz) | SpO2 98% | BMI 27.86 kg/m | BSA 1.74 m Vitals reviewed and is normotensive / afebrile / and not tachycardic General: No acute distress. Neuro: Alert Pleasant & interactive. Respiratory: Good inspiratory effort, no labored breathing. HEENT: Conjunctivae appear clear. No swelling noted face or lips. Skin: No rash visible on exposed skin areas, normal coloration & appears dry. Psych: Normal affect. Fluent speech. Krystin Graves MD [place] [id number] [facility] [id number] There are no Patient Instructions on file for this visit. documented in this encounter Nursing Notes * Sade Thorne LPN - 05/04/2024 2:08 PM EST The patient has been properly identified by confirmation of name and date of . Chief Complaint Patient presents with Hospital Follow-Up Would like to discuss the naltrexone and the Gabapentin documented in this encounter Plan of Treatment Upcoming Encounters Date Type Department Care Team (Late st Contact Info) Description 06/04/2024 2:40 PM EST Office Visit [facility] [address] [place] [address] Krystin Graves MD [address] [place] [address] 08/19/2024 10:00 AM EST Office Visit Hepatology, [facility] [address] [facility] [place] [id number] Vee Juarez MD [address] [place] [id number] Scheduled Orders Name Type Priority Associated Diagnoses Orde r Schedule HEMOGLOBIN A1C Lab Routine DM type 2, not at goal (HCC) Alcoholic cirrhosis of liver without ascites (HCC) Alcoholism (HCC) Anxiety Panic disorder Hospital discharge follow-up Pancytopenia (HCC) Expected: 08/04/2024 (Approximate), Expires: 05/04/2025 COMPREHENSIVE METABOLIC PANEL Lab Routine DM type 2, not at goal (HCC) Alcoholic cirrhosis of liver without ascites (HCC) Alcoholism (HCC) Anxiety Panic disorder Hospital discharge follow-up Pancytopenia (HCC) Expected: 08/04/2024 (Approximate), Expires: 05/04/2025 CBC WITH WBC DIFFERENTIAL AND ANEMIA REFLEX WORKUP Lab Routine DM type 2, not at goal (HCC) Alcoholic cirrhosis of liver without ascites (HCC) Alcoholism (HCC) Anxiety Panic disorder Hospital discharge follow-up Pancytopenia (HCC) Expected: 08/04/2024 (Approximate), Expires: 05/04/2025 Scheduled Referrals Name Type Priority Associated Diagnoses Orde r Schedule HEPATOLOGY REFERRAL OP Referral Within 10 days (routine) Alcoholic cirrhosis of liver without ascites (HCC) Ordered: 05/04/2024 Health Maintenance Due Date Last Done Comments [...] 02/09/2018, Additional history exists HbA1c 04/14/2024 10/14/2023, 010 01/2024, 08/02/2022, Additional history exists COVID-19 Vaccine [...] mention of complication, not stated as uncontrolled Alcoholic cirrhosis of liver without ascites (HCC) Alcoholic cirrhosis of liver Alcoholism (HCC) Other and unspecified alcohol dependence, unspecified drinking behavior Anxiety Anxiety state, unspecified Panic disorder Panic disorder without agoraphobia Pancytopenia (HCC) Other pancytopenia documented in this encounter Care Teams Building Rental Superintendent Relationship Specialty Start Date End Date Krystin Graves MD [address] [place] [address] PCP - General Family Medicine 10/21/22 documented as of this encounter
--- NOTE | 2024-05-13 15:18 | Hospitalist Progress Note ---
Date of Service May 13, 2024 Assessment & Plan (1) Alcohol intoxication: (2) Alcohol abuse: (3) Alcohol withdrawal: Plan: Alcoholic hepatitis History of multiple admission with alcohol intoxication and withdrawal Noted to be intoxicated with less responsiveness by the welfare checking police and was brought into the emergency room Blood alcohol level 300s on admission Transaminitis present on admission; likely due to alcohol use Continue alcohol withdrawal protocol Started on Valium Counseled regarding sedation; case management on board. (4) Diabetes type 2, controlled: Plan: Will continue the current medications (5) Mood disorder: (6) History of suicidal ideation: Plan: No suicidal ideation during this visit (7) History of asthma: Plan: Seems to be controlled without any exacerbation DVT prophylaxis Subcu heparin CODE STATUS Full Please note the above document was generated using voice recognition software. It may contain grammatical, syntax or spelling errors. Any formal questions or concerns about the content, text or information contained within the body of this dictation should be directly addressed to the provider for clarification Admission and Anticipated Discharge Date Admission Date: May 12, 2024 Subjective Patient seen and examined at bedside. She is alert oriented x 3 She reports minor tremors; no hallucinations, agitation Review of Systems Review of Systems: All systems reviewed & are unremarkable except as noted in Subjective Physical Exam Physical Exam: Constitutional: Alert oriented x 3. Not in distress. Mild tremors. Respiratory: Bilateral basilar breath sounds. Cardiovascular: RRR, no murmur, no edema Vessels: no JVD or carotid bruit Chest: normal inspection of chest Abdomen: normal bowel sounds, soft, nontender, no hepatosplenomegaly Musculoskeletal: no cyanosis or clubbing, extremities motor strength 5/5 Skin: no rashes, warm and dry normal turgor Neurologic: PERRL, EOMI, accommodation nl, no face palsy, no dysarthria CN's II- XI intact bilaterally and moves all extremities Psychiatric: A+Ox3, euthymic affect Results & Data Results & Data Vital Signs (Past 12 Hours) Vital Signs Temp Pulse Resp BP Pulse Ox O2 Del Method 05/13/24 10:47 96 H 18 96 Room Air 05/13/24 07:10 36.7 C 90 16 95/67 L 97 Room Air 05/13/24 06:50 78 15 111/67 95 Room Air (3) Alcohol withdrawal Complication of substance-induced condition: with unspecified complication Qualified Code(s): F10.939 - Alcohol use, unspecified with withdrawal, unspecified
[2024-05-13 15:32] LABS: Appearance Urine Clear (Clear); Bacteria Urine Automated None Seen (None Seen); Bilirubin Urine Negative (Negative); Blood Urine Negative (Negative); Cast Urine Automated 0-2 /lpf (0-2); Color Urine Yellow; Epithelial Cell Urine Auto 0-2 /hpf (0-2); Glucose Urine UA 3+ (Negative); Ketones Urine Negative (Negative); Leukocyte Esterase Urine 1+ (Negative); Nitrite Urine Negative (Negative); Protein Urine Negative (Negative); RBC Urine Automated 0-2 /hpf (0-2); Specific Gravity Urine 1.012 (1.000-1.030); Urobilinogen Urine Negative (Negative); WBC Urine Automated 0-5 /hpf (0-5)
[2024-05-14 07:39] VITALS: RESP 18; TEMP 97.9; O2SAT 100
--- NOTE | 2024-05-14 08:52 | Discharge Summary ---
Date of Service May 14, 2024 Admission HPI Per Admitting Provider she is a 48-year-old female with significant past medical history including alcoholism with recurrent admission with withdrawal symptoms, major depressive disorder with history of suicidal ideation, type 2 diabetes on insulin and history of asthma apparently was noted to be intoxicated at home with minimal responsiveness by the police. Her parents called the police for a welfare check of 4 their daughter and the police found her to be less responsive and intoxicated. During examination she was not having any acute distress but she was a little drowsy and did not have any significant withdrawal symptoms Denies any abdominal or chest pain, any shortness of breath or palpitation, any nausea and/or vomiting. Recently she was in a rehab facility and was sent home to live with her parents Her parents are not living anymore with her and she got depressed and started to drink again. Admission Exam Per Admitting Provider Physical Exam: Lying in bed without any acute distress Constitutional: well developed, well nourished, + ill appearing and + obese Eyes: PERRL, conjunctivae normal, anicteric sclerae ENMT: external ear and nose normal, oropharynx normal Neck: trachea midline, no thyromegaly Respiratory: no respiratory distress Auscultation: lungs clear to auscultation bilaterally Cardiovascular: Rate/Rhythm: regular rate and regular rhythm; not tachycardic Gastrointestinal (Abdomen): Inspection/Auscultation: normal bowel sounds; abdomen not distended Percussion/Palpation: abdomen soft; abdomen nontender Musculoskeletal: No acute arthritis involving any of the joint Neurologic: normal touch/pain/proprioception and moves all extremities; no focal motor deficits Minimal tremors involving the outstretched hands Lymphatic: no cervical or axillary lymphadenopathy Principal Diagnosis Alcohol intoxication Alcohol withdrawal Discharge Exam Constitutional: Alert oriented x 3. Not in distress. no tremors Respiratory: Bilateral basilar breath sounds. Cardiovascular: RRR, no murmur, no edema Vessels: no JVD or carotid bruit Chest: normal inspection of chest Abdomen: normal bowel sounds, soft, nontender, no hepatosplenomegaly Musculoskeletal: no cyanosis or clubbing, extremities motor strength 5/5 Skin: no rashes, warm and dry normal turgor Neurologic: PERRL, EOMI, accommodation nl, no face palsy, no dysarthria CN's II- XI intact bilaterally and moves all extremities Psychiatric: A+Ox3, euthymic affect Discharge Data Allergies Allergy/AdvReac Type Severity Reaction Status Date / Time doxycycline Allergy Severe Muscle Pain Verified 11/26/23 08:30 theophylline AdvReac Intermediate VERTIGO Verified 11/26/23 08:30 Consultations 05/12/24 17:13 ED Decision to Admit Stat Ordered Studies 05/12/24 12:18 CT head/brain wo con Stat Hospital Course (1) Alcohol intoxication: (2) Alcohol abuse: (3) Alcohol withdrawal: Plan Alcoholic hepatitis History of multiple admission with alcohol intoxication and withdrawal Noted to be intoxicated with less responsiveness by the welfare checking police and was brought into the emergency room Blood alcohol level 300s on admission Transaminitis present on admission; likely due to alcohol use During the hospitalization, patient was treated with alcohol withdrawal protocol. She had minimal withdrawal symptoms and none at the time of the discharge. Patient discharged home with instructions to follow-up with PCP. Discussed regarding alcohol abstinence; patient verbalized understanding. Please note the above document was generated using voice recognition software. It may contain grammatical, syntax or spelling errors. Any formal questions or concerns about the content, text or information contained within the body of this dictation should be directly addressed to the provider for clarification Total Time Total Time Spent Total Time Spent (In Minutes): 35 Total Time Includes: Examination of the Patient, Discharge Planning, Medication Reconciliation, Communication With Other Providers and Other Discharge Plan Discharge Items Patient Disposition: Home - Self-Care Reason For Visit: ALCOHOL INTOXICATION Discharge Diagnosis: Alcohol intoxication Alcohol withdrawal Activity: Resume your previous activity Non-emergency contact: Primary Care Provider Call non-emergency contact if: you have any medication questions and your symptoms worsen Follow-up/Referrals: Krystin Graves MD [Primary Care Provider] - (Date & Time 05/21/2024 11:00 AM Provider Krystin Graves MD Department [facility] Date & Time 05/25/2024 8:20 AM Provider Krystin Graves MD Department [facility] ) Diet: Regular Addtl Attending Provider Instructions: Follow-up with your primary care doctor Pending Studies at Discharge: No Stand-Alone Forms: My [facility], Smoking Cessation Medications and DC Order Prescriptions: Continued fluticasone propion-salmeterol [Advair Diskus] 250-50 mcg/dose blister with device 1 inh inhalation AMHS albuterol sulfate [Ventolin HFA] 90 mcg/actuation Hfa Aerosol Inhaler 2 puff INHALATION QID buspirone 10 mg tablet 20 mg PO TID Rx Instructions: Take 2 Tablets by mouth in the morning and 2 Tablets at noon and 2 Tablets before bedtime. (DME) pen needle, diabetic [BD Ultra-Fine Gertrude Pen Needle] 32 gauge x 5/32" needle MISCELLANEOUS Rx Instructions: Use to inject insulin 4 times daily. Fiasp FlexTouch U-100 Insulin 100 unit/mL (3 mL) insulin pen 4 - 5 unit SUBCUT TID Hold Instructions: hold until able to consistently utilize Rx Instructions: Inject 5 units under the skin before breakfast, 4 units with lunch, and 4 units with dinner. insulin glargine-yfgn [Semglee(insulin glarg-yfgn)Pen] 100 unit/mL (3 mL) insulin pen 32 unit SUBCUT QAM Hold Instructions: hold until able to consistently utilize gabapentin 600 mg Tablet 600 mg PO TID 30 Days Qty: 90 0RF insulin asp prt-insulin aspart [Novolog Mix 70-30 U-100 Insuln] 100 unit/mL (70-30) solution See Rx Instructions .ROUTE .COMPLEX Qty: 10 0RF Rx Instructions: Inject 35 U subcutaneously in the morning before breakfast and 15 U subcutaneously in the evening with dinner (DME) BD Insulin Syringe U-500 1/2 mL 31 gauge x 15/64" syringe See Rx Instructions .Route Qty: 100 0RF Rx Instructions: to inject insuline 2 times a day hydroxyzine HCl 50 mg tablet 50 mg PO Q8 PRN (Reason: ANXIETY/INSOMNIA) trazodone 100 mg tablet 100 mg PO HS escitalopram oxalate 20 mg tablet 20 mg PO QAM lorazepam 0.5 mg tablet 0.5 mg PO TID PRN (Reason: Anxiety) zinc glycinate 20 mg Capsule 20 mg PO DAILY Multiple Vitamin-Minerals Tablet 1 tab PO DAILY magnesium 30 mg Tablet 30 mg PO DAILY Discharge Orders: Discharge Order (Routine); Ordered 05/14/24 Ordered By: Dajuan Ceja Admission Data Admit Date/Time: 05/12/24 17:46 Attending Provider: Dajuan Ceja Admit Provider: Brett Vasquez Primary Care Provider: Krystin Graves Other Providers: Brett Vasquez Other Interventions: Discharge Summary Assessment (RN) Last Done: 05/14/24 10:24
[2024-05-14] MEDS: ALBUTEROL HFA 8 GM INHALER INH PRN (09:15)
[2024-05-14 10:26] VITALS: BP 94/64; PULSE 96
== END 2024-05-14 11:33 | disposition home or self-care (01) | DRG 897 ==
LOC: ED 11:53 → SUATTDRO 17:46 → EDINP 17:46 → 2N 21:06